=== PATIENT | male | born 1960 | race Caucasian/White ===

== ENCOUNTER 2017-05-26 11:19 | Emergency (ER) | payer BC, OTHER ==
[~2017-05-26] VITALS: Ht 175.3 cm; Wt 92.5 kg
[~2017-05-26 11:19] MED LIST: DOCU1CAP60 PO; MYL80 PO; glucometer
[2017-05-26 11:23] VITALS: TEMP 36.3; Ht 175.3 cm; Wt 92.5 kg
[2017-05-26 11:55] LABS: BASO % 0.1 %; BASO ABS # 0.01 K/uL (0-0.2); COMPLETE YES; EOS % 2.6 %; HEMATOCRIT 45.8 % (42-52); IG% 0.3 %; LYMPH % 30.3 %; MEAN CELL VOLUME 91.2 fL (80-100); MEAN CORPUSCULAR HEMOGLOBIN 31.7 pg (25-34); MEAN CORPUSCULAR HGB CONC 34.7 g/dl (32-36); MEAN PLATELET VOLUME 10.9 fL (7.4-10.4); MONO % 6.3 %; NEUT % 60.4 %; PLATELET COUNT 141 K/uL (130-400); RED BLOOD COUNT 5.02 M/uL (4.7-6.1); WHITE BLOOD COUNT 7.25 K/uL (4.8-10.8)
[2017-05-26 12:18] LABS: URINE APPEARANCE CLEAR (CLEAR); URINE BILIRUBIN NEG (NEG); URINE COLOR YELLOW; URINE NITRITE NEG (NEG); URINE SPECIFIC GRAVITY 1.029 (1.000-1.030); UROBILINOGEN NEG (NEG); ZZUR CULT IF INDIC CLEAN CATCH NO
[2017-05-26 12:20] LABS: BUN/CREATININE RATIO 14.1 (10-20); CALCIUM 9.6 mg/dl (8.5-10.1); CREATININE 1.4 mg/dl (0.60-1.40); POTASSIUM 4.4 mmol/L (3.5-5.1)
[2017-05-26 12:20] LABS: MANUAL MICROSCOPIC REQUIRED? NO; REVIEW REQ? NO
[2017-05-26 12:32] LABS: BETA-HYDROXYBUTYRATE 1.43 mg/dL (0.2-2.81)
--- NOTE | 2017-05-26 12:45 | EMERGENCY ROOM VISIT NOTE ---
History First contact with patient: 11:27 Chief Complaint: HYPERGLYCEMIA Stated Complaint: SUGAR HIGH 500 Nursing Triage Summary: Triage note: Pt reports he took his bsg at approx 1100 and was found to be 576. pt reports hx of diabets type two. History of Present Illness The patient is a 57 year old male who presents to the Emergency Room with complaints of elevated blood sugar. 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 He states at that time the sugar was 576. He did just eat a [place] right before checking the sugar. The patient states at that time, he called his PCP, who advised him to go to the emergency department for further evaluation. The patient does have a history of type 2 diabetes, and was diagnosed proximally 5 years ago. He states his last PCP appointment regarding his diabetes was proximally one and half months ago. He believes at that time, his hemoglobin A1c was 8 point something, but is uncertain of the exact number. At home, the patient states his blood sugar normally runs around the 200s. He denies any abdominal pain, nausea, vomiting, headache, blurry vision, other visual disturbances, confusion, polyuria, polydipsia, polyphagia, or any other symptoms. The patient is currently on glyburide, metformin, and Trulicity for his diabetes. He states he has been taking these medications, however he is still on the low-dose of Trulicity. Review of Systems A complete 10 point review of systems was reviewed with the patient with pertinent positives and negatives as per history of present illness. All else were negative. Past Medical/Surgical History Medical Problems: (1) High blood pressure (2) High cholesterol (3) Irritable bowel syndrome Social History Smoking Status: Former Smoker Alcohol Use: other Drug Use: none Marital Status: Housing Status: lives with family Occupation Status: employed Current/Historical Medications Scheduled Aspirin (Aspirin Ec), 81 MG PO DAILY Atorvastatin Calcium (Lipitor), Unknown Dose PO DAILY Glimepiride (Amaryl), Unknown Dose PO BID Lisinopril (Zestril), Unknown Dose PO DAILY Metformin HCl (Metformin HCl ER), 1,000 MG PO BID Multivitamin (Multivitamin), 1 TAB PO DAILY Oxcarbazepine (Trileptal), 1.75 ML INJ WK Allergies Erythromycin Physical Exam Vital Signs Date Time Temp Pulse Resp B/P (MAP) Pulse Ox O2 Delivery O2 Flow Rate FiO2 05/26/17 15:17 103 16 176/94 95 05/26/17 14:35 175/94 05/26/17 13:12 93 20 155/94 97 Room Air 05/26/17 12:34 143/100 05/26/17 11:46 18 182/105 95 05/26/17 11:23 36.3 109 18 204/102 96 Room Air Physical Exam VITALS: Vitals are noted on the nurse's note and reviewed by myself. Vital signs stable. GENERAL: This is a 57 year old obese male, in no acute distress, nondiaphoretic , well-developed well-nourished. SKIN: The skin was without rashes, erythema, edema, or bruising. There is no tenting of the skin. Capillary reflex less than 2 seconds. HEAD: Normocephalic atraumatic. EARS: External auditory canals clear, tympanic membranes pearly mckeon without erythema or effusion bilaterally. EYES: Pupils equal round and reactive to light and accommodation. Conjunctivae without injection, sclerae without icterus. Extraocular movements intact. NOSE: Patent, turbinates without inflammation or discharge. No sinus tenderness. MOUTH: Mucous membranes moist. Tonsils are not enlarged. Pharynx without erythema or exudate. Uvula midline. Airway patent. Tongue does not deviate. NECK: Supple without nuchal rigidity. No lymphadenopathy. No thyromegaly. Cervical spine is nontender. No JVD. HEART: Regular rate and rhythm without murmurs gallops or rubs. LUNGS: Clear to auscultation bilaterally without wheezes, rales or rhonchi. No dullness to percussion. No retractions or accessory muscle use. ABDOMEN: Positive bowel sounds x 4. Normal tympanic percussion. Soft, nontender, without masses or organomegaly. Butler sign negative. No guarding or rebound tenderness. MUSCULOSKELETAL: No muscle atrophy, erythema, or edema noted. Full range of motion without joint tenderness in all extremities. No tenderness to palpation. Normal gait. Strength 5/5 throughout. NEURO: Patient was alert and oriented to person place and time. Normal sensation to light and sharp touch. Deep tendon reflexes 2+ throughout. No focal neurological deficits. Medical Decision & Procedures ER Provider Diagnostic Interpretation: LABS: Initial BSG was 375, approximately 30 minutes after the patient checked on his own meter. CBC was without leukocytosis, anemia, thrombocytopenia. CMP was without electrolyte, renal abnormality. ALT slightly elevated at 81. Alkaline phosphatase elevated at 150. Lipase was negative. Beta hydroxybutyric acid 1.43. BSG prior to insulin administration 106. Increase to 166 after a sandwich and juice. Urinalysis did show 3+ glucose, but was negative for ketones or any signs of infection. Laboratory Results 05/26/17 11:35 Red Blood Count 5.02, Mean Corpuscular Volume 91.2, Mean Corpuscular Hemoglobin 31.7, Mean Corpuscular Hemoglobin Concent 34.7, Mean Platelet Volume 10.9, Neutrophils (%) (Auto) 60.4, Lymphocytes (%) (Auto) 30.3, Monocytes (%) (Auto) 6.3, Eosinophils (%) (Auto) 2.6, Basophils (%) (Auto) 0.1, Neutrophils # (Auto) 4.37, Lymphocytes # (Auto) 2.20, Monocytes # (Auto) 0.46, Eosinophils # (Auto) 0.19, Basophils # (Auto) 0.01 05/26/17 11:35 Test 05/26/17 11:35 05/26/17 12:00 05/26/17 14:32 White Blood Count 7.25 K/uL (4.8-10.8) Red Blood Count 5.02 M/uL (4.7-6.1) Hemoglobin 15.9 g/dL (14.0-18.0) Hematocrit 45.8 % (42-52) Mean Corpuscular Volume 91.2 fL (80-100) Mean Corpuscular Hemoglobin 31.7 pg (25-34) Mean Corpuscular Hemoglobin Concent 34.7 g/dl (32-36) Platelet Count 141 K/uL (130-400) Mean Platelet Volume 10.9 fL (7.4-10.4) Neutrophils (%) (Auto) 60.4 % Lymphocytes (%) (Auto) 30.3 % Monocytes (%) (Auto) 6.3 % Eosinophils (%) (Auto) 2.6 % Basophils (%) (Auto) 0.1 % Neutrophils # (Auto) 4.37 K/uL (1.4-6.5) Lymphocytes # (Auto) 2.20 K/uL (1.2-3.4) Monocytes # (Auto) 0.46 K/uL (0.11-0.59) Eosinophils # (Auto) 0.19 K/uL (0-0.5) Basophils # (Auto) 0.01 K/uL (0-0.2) RDW Standard Deviation 46.1 fL (36.4-46.3) RDW Coefficient of Variation 14.0 % (11.5-14.5) Immature Granulocyte % (Auto) 0.3 % Immature Granulocyte # (Auto) 0.02 K/uL (0.00-0.02) Anion Gap 11.0 mmol/L (3-11) Est Creatinine Clear Calc Drug Dose 67.0 ml/min Estimated GFR () 65.1 Estimated GFR (Non- 56.2 BUN/Creatinine Ratio 14.1 (10-20) Calcium Level 9.6 mg/dl (8.5-10.1) Total Bilirubin 0.3 mg/dl (0.2-1) Aspartate Amino Transf (AST/SGOT) 35 U/L (15-37) Alanine Aminotransferase (ALT/SGPT) 81 U/L (12-78) Alkaline Phosphatase 150 U/L (45-117) Total Protein 8.0 gm/dl (6.4-8.2) Albumin 4.0 gm/dl (3.4-5.0) Globulin 4.0 gm/dl (2.5-4.0) Albumin/Globulin Ratio 1.0 (0.9-2) Lipase 277 U/L (73-393) Beta-Hydroxybutyric Acid 1.43 mg/dL (0.2-2.81) Urine Color YELLOW Urine Appearance CLEAR (CLEAR) Urine pH 5.0 (4.5-7.5) Urine Specific [place] 1.029 (1.000-1.030) Urine Protein NEG (NEG) Urine Glucose (UA) 3+ (NEG) Urine Ketones NEG (NEG) Urine Occult Blood NEG (NEG) Urine Nitrite NEG (NEG) Urine Bilirubin NEG (NEG) Urine Urobilinogen NEG (NEG) Urine Leukocyte Esterase NEG (NEG) Bedside Glucose 166 mg/dl (70-99) Medications Administered Medications (Trade) Dose Ordered Sig/Donny Route Start Time Stop Time Status Last Admin Dose Admin Insulin Human Regular (novoLIN-R U-100 PER UNIT) 10 units NOW STAT IV 05/26/17 12:58 05/26/17 13:01 DC 05/26/17 13:11 10 UNITS Medical Decision The patient presented today complaining of hyperglycemia. He was completely asymptomatic on multiple re-evaluations. Due to the elevated blood sugar, the patient was advised to push fluids by mouth. Per Dr. Riddle's recommendation, the patient was given 10 units of insulin and lunch, which did decrease his blood sugar down to the 100s. The patient was beginning to feel as if his blood sugar was decreasing after the insulin and prior to being given food. He states he was feeling good at discharge. I did discuss with the patient proper management for his diabetes, and had a long discussion with him regarding proper diet. Encouraged patient to follow up outpatient with his PCP , as he may need to have some medication adjustments made. The patient was in agreement with the assessment and plan and did verbalize understanding. Discharge instructions were reviewed and the patient was discharged home in good condition. Differential diagnosis includes: Hyperglycemia, DKA, pancreatitis, gastroenteritis, malignancy, and others. Medication Reconcilliation Current Medication List: was personally reviewed by me Blood Pressure Screening Patient's blood pressure: Normal blood pressure Impression Primary Impression: Hyperglycemia Additional Impression: Diabetes mellitus type 2 in obese Departure Information Dispostion Home / Self-Care Condition GOOD Referrals Shade Peacock M.D. (PCP) Patient Instructions ED Diabetes General Info, ED Hyperglycemia Diabetic, My [facility] Additional Instructions You were seen in the Emergency Department for asymptomatic hyperglycemia. I do suspect this is related to your Type 2 Diabetes Mellitus. Please stay well-hydrated and ensure you are taking all diabetes medications properly. Follow-up with your PCP on Sunday regarding chronic diabetes medications. They may need to be increased or changed. As discussed, please monitor your carbs and sugar intake which could be contributing to elevated blood sugar. Return to the ED for any significant abdominal pain, dizziness, visual disturbances, urinary frequency, increased thirst or appetite, significantly elevated blood sugar which does not improve, or other concerning symptoms. Problem Qualifiers
[2017-05-26] MEDS ORDERED: NovoLIN-R INSULIN PER UNIT CHARGE IV STA (12:58)
[2017-05-26] MEDS ORDERED: GLIM1TAB PO (13:04)
[2017-05-26] MEDS ORDERED: ASPI81TA28 PO (13:04)
[2017-05-26] MEDS ORDERED: LISI-729 PO (13:04)
[2017-05-26] MEDS ORDERED: MULT-506 PO (13:04)
[2017-05-26] MEDS ORDERED: OXCA300S INJ (13:04)
[2017-05-26] MEDS ORDERED: ATOR80TA PO (13:04)
[2017-05-26] MEDS ORDERED: METF-841 PO (13:04)
[2017-05-26 15:17] VITALS: BP 176/94; PULSE 103; O2SAT 95
== END 2017-05-26 15:18 | disposition home or self-care (01) ==
LOC: C.EDB 11:21 → C.EDA 15:18
DX: E11.65 Type 2 diabetes mellitus with hyperglycemia (principal); E66.9 Obesity, unspecified; I10 Essential (primary) hypertension; E78.00 Pure hypercholesterolemia, unspecified; K58.9 Irritable bowel syndrome, unspecified; Z87.891 Personal history of nicotine dependence; Z79.82 Long term (current) use of aspirin; Z79.899 Other long term (current) drug therapy

== ENCOUNTER 2017-07-19 10:32 | Emergency (ER) | payer OTHER, BC ==
[~2017-07-19] VITALS: Ht 175.3 cm; Wt 98.0 kg
[~2017-07-19 10:32] MED LIST changes: +ASPI81TA28 PO; +ATOR80TA PO; -DOCU1CAP60 PO; +GLIM1TAB PO; +LISI-729 PO; +METF-841 PO; +MULT-506 PO; -MYL80 PO; +OXCA300S INJ; -glucometer
[2017-07-19 10:47] VITALS: TEMP 36.6; Ht 175.3 cm; Wt 98.0 kg
[2017-07-19 11:05] VITALS: O2SAT 96
[2017-07-19] MEDS ORDERED: GLIM4TAB2 PO (11:07)
[2017-07-19] MEDS ORDERED: LISI-789 PO (11:07)
[2017-07-19] MEDS ORDERED: ATOR10TA82 PO (11:07)
[2017-07-19] MEDS ORDERED: DULA1INJ SQ (11:07)
--- NOTE | 2017-07-19 11:12 | EMERGENCY ROOM VISIT NOTE ---
History Report prepared by Jah: Dario Bella Under the Supervision of: Dr. Rajinder Shearer D.O. First contact with patient: 10:42 Chief Complaint: CHEST PAIN Stated Complaint: CHEST PAIN History of Present Illness The patient is a 57 year old male who presents to the Emergency Room with complaints of constant chest pain starting this morning. 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 He notes that this morning he was getting chest pain which is worse with palpation. He additionally notes that he has some brush burn on his left elbow. He denies any pain with breathing, nausea, vomiting, abdominal pain, and back pain. The patient states that he has never had a stress test in the past. He has a history of type 2 diabetes. Source of History: patient Onset: this morning Position: chest Timing: constant Modifying Factors (Worsening): other (palpation) Associated Symptoms: No nausea, No vomiting, No abdominal pain, No back pain Review of Systems See HPI for pertinent positives & negatives. A total of 10 systems reviewed and were otherwise negative. Past Medical & Surgical Medical Problems: (1) High blood pressure (2) High cholesterol (3) Irritable bowel syndrome Social History Smoking Status: Former Smoker Alcohol Use: other Drug Use: none Marital Status: Housing Status: lives with family Occupation Status: employed Current/Historical Medications Scheduled Aspirin (Aspirin Ec), 81 MG PO DAILY Atorvastatin (Lipitor), 10 MG PO DAILY Dulaglutide (Trulicity), 0.75 MG SQ WK Glimepiride (Glimepiride), 4 MG PO BID Lisinopril (Zestril), 2.5 MG PO DAILY Metformin HCl (Metformin HCl ER), 1,000 MG PO BID Multivitamin (Multivitamin), 1 TAB PO DAILY Allergies Coded Allergies: Erythromycin (Verified Allergy, Mild, ABD PAIN, 07/19/17) Physical Exam Vital Signs Date Time Temp Pulse Resp B/P (MAP) Pulse Ox O2 Delivery O2 Flow Rate FiO2 07/19/17 13:00 98 20 163/82 98 07/19/17 11:58 134/80 07/19/17 11:47 186 29 07/19/17 11:32 105 21 07/19/17 11:17 109 27 07/19/17 11:05 96 Nasal Cannula 07/19/17 11:02 108 07/19/17 10:47 36.6 106 18 155/107 97 Room Air Physical Exam GENERAL: Patient is awake, alert, and in no acute distress. Patient is resting comfortably and showing no signs of anxiety EYES: The conjunctivae are clear. The pupils are round and reactive. EARS, NOSE, MOUTH AND THROAT: The nose is without any evidence of any deformity. Mucous membranes are moist tongue is midline NECK: The neck is nontender and supple. RESPIRATORY: Normal respiratory effort is noted there is no evidence of wheezing rhonchi or rales CARDIOVASCULAR: Tachycardic rate but regular. No definite murmur noted to auscultation. GASTROINTESTINAL: The abdomen is soft. Bowel sounds are present in all quadrants. Abdomen is nontender MUSCULOSKELETAL/EXTREMITIES: Reproducible pain over the left breast. There is no evidence of gross deformity full range of motion is noted in the hips and shoulders SKIN: There is no obvious evidence of any rash. There are no petechiae, pallor or cyanosis noted. NEUROLOGIC: Patient is awake alert and oriented x3 strength is symmetric patellar reflexes are 2+ bilaterally Medical Decision & Procedures ER Provider Diagnostic Interpretation: Radiology results as stated below per my review and radiologist interpretation: SINGLE VIEW CHEST CLINICAL HISTORY: Dyspnea. FINDINGS: An AP, portable, upright chest radiograph is compared to study dated 08/13/2013. The cardiomediastinal heart is enlarged. The pulmonary vasculature is noncongested. Airspace opacities are present the left lung base in the retrocardiac region. The lungs and pleural spaces are otherwise clear. No pneumothorax is seen. The bony thorax is grossly intact. IMPRESSION: 1. Cardiomegaly without radiographic evidence of congestive failure. 2. Airspace opacities are seen in the left lung base in the retrocardiac region. This likely represents atelectasis. Correlate clinically for evidence of an infectious/inflammatory pneumonitis. Electronically signed by: Reed Hare M.D. 07/19/2017 11:16 AM Dictated Date/Time: 07/19/2017 11:15 AM Laboratory Results 07/19/17 11:06 Red Blood Count 5.05, Mean Corpuscular Volume 90.7, Mean Corpuscular Hemoglobin 31.9, Mean Corpuscular Hemoglobin Concent 35.2, Mean Platelet Volume 11.2, Neutrophils (%) (Auto) 71.4, Lymphocytes (%) (Auto) 20.2, Monocytes (%) (Auto) 7.4, Eosinophils (%) (Auto) 0.7, Basophils (%) (Auto) 0.1, Neutrophils # (Auto) 5.91, Lymphocytes # (Auto) 1.67, Monocytes # (Auto) 0.61, Eosinophils # (Auto) 0.06, Basophils # (Auto) 0.01 07/19/17 11:06 07/19/17 11:55 Test 07/19/17 11:06 07/19/17 11:55 White Blood Count 8.28 K/uL (4.8-10.8) Red Blood Count 5.05 M/uL (4.7-6.1) Hemoglobin 16.1 g/dL (14.0-18.0) Hematocrit 45.8 % (42-52) Mean Corpuscular Volume 90.7 fL (80-100) Mean Corpuscular Hemoglobin 31.9 pg (25-34) Mean Corpuscular Hemoglobin Concent 35.2 g/dl (32-36) Platelet Count 161 K/uL (130-400) Mean Platelet Volume 11.2 fL (7.4-10.4) Neutrophils (%) (Auto) 71.4 % Lymphocytes (%) (Auto) 20.2 % Monocytes (%) (Auto) 7.4 % Eosinophils (%) (Auto) 0.7 % Basophils (%) (Auto) 0.1 % Neutrophils # (Auto) 5.91 K/uL (1.4-6.5) Lymphocytes # (Auto) 1.67 K/uL (1.2-3.4) Monocytes # (Auto) 0.61 K/uL (0.11-0.59) Eosinophils # (Auto) 0.06 K/uL (0-0.5) Basophils # (Auto) 0.01 K/uL (0-0.2) RDW Standard Deviation 45.7 fL (36.4-46.3) RDW Coefficient of Variation 14.0 % (11.5-14.5) Immature Granulocyte % (Auto) 0.2 % Immature Granulocyte # (Auto) 0.02 K/uL (0.00-0.02) Prothrombin Time 10.5 SECONDS (9.0-12.0) Prothromb Time International Ratio 1.0 (0.9-1.1) Activated Partial Thromboplast Time 25.9 SECONDS (21.0-31.0) Partial Thromboplastin Ratio 1.0 D-Dimer 270 ug/L FEU (0-500) Anion Gap 4.0 mmol/L (3-11) Est Creatinine Clear Calc Drug Dose 77.1 ml/min Estimated GFR () 74.7 Estimated GFR (Non- 64.4 BUN/Creatinine Ratio 11.9 (10-20) Calcium Level 9.0 mg/dl (8.5-10.1) Total Bilirubin 0.4 mg/dl (0.2-1) Alanine Aminotransferase (ALT/SGPT) 70 U/L (12-78) Alkaline Phosphatase 104 U/L (45-117) Creatine Kinase MB 0.7 ng/ml (0.5-3.6) Creatine Kinase MB Ratio (0-3.0) Troponin I < 0.015 ng/ml (0-0.045) Total Protein 7.7 gm/dl (6.4-8.2) Albumin 3.9 gm/dl (3.4-5.0) Globulin 3.8 gm/dl (2.5-4.0) Albumin/Globulin Ratio 1.0 (0.9-2) Aspartate Amino Transf (AST/SGOT) 34 U/L (15-37) Total Creatine Kinase 62 U/L (39-308) Laboratory results per my review. ECG Indication: chest pain Rate (beats per minute): 103 Rhythm: sinus tachycardia Findings: no ectopy, other (No acute ST segment abnormality) Comparison ECG Date: 08/06/13 Change: no significant change ED Course 1042: The patient was evaluated in room B11. A complete history and physical examination were performed. 1243: Upon reevaluation, the patient is doing well. I discussed the results and treatment plan with him. He verbalized agreement of the treatment plan. He was discharged home. Medical Decision Differential diagnosis: Etiologies such as cardiac ischemia, aortic dissection, pulmonary embolism, pneumonia, pneumothorax, musculoskeletal, infections, pericarditis, myocarditis , esophageal rupture, gastrointestinal, as well as others were entertained. Nursing notes reviewed. The patient is a 57-year-old male who presented to the emergency department for an evaluation of left-sided chest pain. 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 He does not necessarily remember getting struck in the chest but started having left-sided chest pain this morning. The pain appear to be reproducible over the left pectoralis muscle. The patient was seen at an outpatient urgent care center and was sent to the emergency department. I discussed patient's laboratory and radiographic studies with him. His EKG did not show any acute change from previous. His initial cardiac biomarkers were negative despite having ongoing pain throughout the entire morning. The patient was encouraged to rest and avoid any strenuous activity. He was also encouraged to call his primary care physician to schedule follow point. Otherwise he was encouraged to return to the emergency apartment immediately if symptoms change worsen or the need arises. Medication Reconcilliation Current Medication List: was personally reviewed by me Blood Pressure Screening Patient's blood pressure: Elevated blood pressure Blood pressure disposition: Elevated BP felt to be situational Impression Primary Impression: Musculoskeletal chest pain Additional Impression: Contusion of chest Scribe Attestation The scribe's documentation has been prepared under my direction and personally reviewed by me in its entirety. I confirm that the note above accurately reflects all work, treatment, procedures, and medical decision making performed by me. Departure Information Dispostion Home / Self-Care Referrals Shade Peacock M.D. (PCP) Forms Call Back Authorization, HOME CARE DOCUMENTATION FORM, IMPORTANT VISIT INFORMATION, Work Instructions Patient Instructions ED Contusion Chest Wall, My [facility] Additional Instructions Rest and avoid any strenuous activity. Continue all medications as prescribed. Continue using Motrin and Tylenol as directed for pain. Follow-up with your family for reevaluation. Return to the emergency department immediately if symptoms change worsen or the need arises. Problem Qualifiers Additional Impression: Contusion of chest Encounter type: initial encounter Laterality: left Qualified Codes: S20.212A - Contusion of left front wall of thorax, initial encounter
--- NOTE | 2017-07-19 11:17 | DIAGNOSTIC IMAGING REPORT ---
SINGLE VIEW CHEST CLINICAL HISTORY: Dyspnea. FINDINGS: An AP, portable, upright chest radiograph is compared to study dated 08/13/2013. The cardiomediastinal heart is enlarged. The pulmonary vasculature is noncongested. Airspace opacities are present the left lung base in the retrocardiac region. The lungs and pleural spaces are otherwise clear. No pneumothorax is seen. The bony thorax is grossly intact. IMPRESSION: 1. Cardiomegaly without radiographic evidence of congestive failure. 2. Airspace opacities are seen in the left lung base in the retrocardiac region. This likely represents atelectasis. Correlate clinically for evidence of an infectious/inflammatory pneumonitis. Electronically signed by: Reed Hare M.D. 07/19/2017 11:16 AM Dictated Date/Time: 07/19/2017 11:15 AM
[2017-07-19 11:22] LABS: BASO % 0.1 %; BASO ABS # 0.01 K/uL (0-0.2); EOS % 0.7 %; EOS ABS # 0.06 K/uL (0-0.5); HEMATOCRIT 45.8 % (42-52); HEMOGLOBIN 16.1 g/dL (14.0-18.0); IG# 0.02 K/uL (0.00-0.02); LYMPH % 20.2 %; LYMPH ABS # 1.67 K/uL (1.2-3.4); MEAN CELL VOLUME 90.7 fL (80-100); MEAN CORPUSCULAR HEMOGLOBIN 31.9 pg (25-34); MEAN CORPUSCULAR HGB CONC 35.2 g/dl (32-36); MEAN PLATELET VOLUME 11.2 fL (7.4-10.4); MONO % 7.4 %; MONO ABS # 0.61 K/uL (0.11-0.59); NEUT % 71.4 %; NEUT ABS # 5.91 K/uL (1.4-6.5); PLATELET COUNT 161 K/uL (130-400); RED CELL DISTRIBUTION WIDTH SD 45.7 fL (36.4-46.3); WHITE BLOOD COUNT 8.28 K/uL (4.8-10.8)
[2017-07-19 11:44] LABS: ALBUMIN 3.9 gm/dl (3.4-5.0); ALT/SGPT 70 U/L (12-78); BLOOD UREA NITROGEN 15 mg/dl (7-18); CARBON DIOXIDE 24 mmol/L (21-32); CREATININE 1.25 mg/dl (0.60-1.40); GLUCOSE 245 mg/dl (70-99); SODIUM 138 mmol/L (136-145)
[2017-07-19 11:47] LABS: ALKALINE PHOSPHATASE 104 U/L (45-117); CKMB 0.7 ng/ml (0.5-3.6); TOTAL PROTEIN 7.7 gm/dl (6.4-8.2)
[2017-07-19 12:02] LABS: PTT PATIENT 25.9 SECONDS (21.0-31.0)
[2017-07-19 12:19] LABS: POTASSIUM 4.3 mmol/L (3.5-5.1)
[2017-07-19 13:00] VITALS: BP 163/82; PULSE 98; O2SAT 98
== END 2017-07-19 13:01 | disposition home or self-care (01) ==
LOC: C.EDB 10:35
DX: R07.89 Other chest pain (principal); S20.20XA Contusion of thorax, unspecified, initial encounter; X58.XXXA Exposure to other specified factors, initial encounter; E11.9 Type 2 diabetes mellitus without complications; I10 Essential (primary) hypertension; E78.00 Pure hypercholesterolemia, unspecified; K58.9 Irritable bowel syndrome, unspecified; Z79.82 Long term (current) use of aspirin; Z79.84 Long term (current) use of oral hypoglycemic drugs; Z87.891 Personal history of nicotine dependence

== ENCOUNTER 2019-06-18 12:36 | Inpatient (IN) ==
[2019-06-18] MEDS ORDERED: GLUCOSE 40% GEL 15 GM TUBE PO PRN ×2 (12:43→12:59)
[2019-06-18] MEDS ORDERED: SODIUM CHLORIDE 0.9% 1000ML 1,000 ML IV ONE ×2 (12:43→13:14)
[2019-06-18] MEDS ORDERED: SODIUM CHLORIDE 0.9% 500 ML IV STA (12:43)
[2019-06-18] MEDS ORDERED: DEXTROSE 50% 50 ML SYRINGE IV PRN (12:59)
[2019-06-18] MEDS ORDERED: GLUCAGON FOR INJ 1 MG VIAL SQ PRN (12:59)
[2019-06-18] MEDS ORDERED: ED DKA INSULIN DRIP ONE (12:59)
[2019-06-18] MEDS ORDERED: CARBOHYDRATES FOR HYPOGLYCEMIA PO PRN (12:59)
[2019-06-18] MEDS ORDERED: GLUCOSE 10 TABS/TUBE PO PRN (12:59)
[2019-06-18] MEDS ORDERED: DKA GOAL RANGE 150-250 mg/dl ONE ×2 (12:59→17:03)
--- NOTE | 2019-06-18 12:59 | Emergency Department Note ---
Entered by Kayode Morgan acting as a scribe for Malia Grigsby DO History of Present Illness General Chief complaint: Cardiac Assessment Time Seen by Provider: 06/18/19 12:43 Source: patient and EMS History of Present Illness Onset (ago): day(s) 2 Location: left and right Pain Consistency: + other (episode) Quality: + other (weakness and elevated blood sugar levels) Associated symptoms: + shortness of breath (slight) and + other (+intermittent abdominal pain; +urinating more than usual; -change in bowel movement); no chest pain The patient is a 59 year old male, with past medical history of diabetes, hyperlipidemia, and hypertension, who presents to the Emergency Room with complaints of an episode of weakness over the last couple days and elevated sugar levels, per EMS. EMS reports that the patients blood sugar was so high that it maxed out the reading of his device. EMS reports the patient has not been taking his insulin over the past couple days due to cost/insurance, but EMS notes the patient has been taking his Metformin. The patient reports he has been weak for the past two days. The patient reports of slight shortness of breath, but he denies chest pain. EMS also notes the patient has slurred speech, but he states this seems to be baseline for the patient. The patient reports he has never been told he has an underlying heart disease other than a heart murmur. The patient reports his sugar levels are typically under control other than from missing his insulin shots over the past couple days. The patient states he does not know if he has ever had DKA. The patient also notes of intermittent abdomin al pain over the past couple months, but the patient does not seem to be too concerned about the abdominal pain. The patient denies change in his bowel movements. However he notes he has been urinating a lot more than normal. Home Medications Home Medications Medication Instructions Recorded Confirmed Type atorvastatin 20 mg PO QAM 03/11/19 06/18/19 History glimepiride 4 mg PO BID 03/11/19 06/18/19 History lisinopril 10 mg PO QAM 03/11/19 06/18/19 History metformin 1,000 mg PO BIDM 03/11/19 06/18/19 History omeprazole 20 mg PO QAM 03/11/19 06/18/19 History dulaglutide [Trulicity] 1.5 mg SUBCUT WK 06/18/19 06/18/19 History Allergies Allergy/AdvReac Type Severity Reaction Status Date / Time erythromycin base Allergy Mild Abdominal Verified 06/18/19 13:44 Pain Past Med/Surg History Medical History Carpal tunnel syndrome Diabetes (Acute) DKA (diabetic ketoacidoses) (Acute) Hyperkalemia (Acute) Hyperlipidemia Hypertension Irritable bowel syndrome (Chronic) Tobacco use Surgical History (Updated 06/18/19 @ 19:02 by Regla Torres PA-C) History of carpal tunnel surgery History of foot surgery Family History Other Diabetes Heart disease Social History Preferred Language: Moroccan Communication Ability: Effective Veterinary Assistant Technician Required: No Beliefs That Will Affect Care: None Current Living Situation: Spouse Other Information That Helps Us Care for You: No Feels Safe at Home: Yes Safety Concerns: Feels Safe At This Time Smoking Status: Current every day smoker Tobacco Type: cigarettes ; Cigarettes Per Day: Previously had quit for 8 years but resumed smoking 5 cig/day last month ; Do You Dip or Chew Tobacco: No ; Second Hand Exposure: Yes ; Tobacco Cessation Education Requested by Patient: No Hx Alcohol Use: No Hx Substance Use: No Review of Systems See HPI for pertinent positives & negatives. and A total of 10 systems reviewed and were otherwise negative Physical Exam Vital Signs Vital Signs - 24 hr 06/18/19 12:39 06/18/19 12:41 06/18/19 12:44 Temperature 36.5 C Temperature Source Axillary Pulse Rate 105 H 107 H 105 H Pulse Rate [Apical] Pulse Rate from SpO2 Sensor 107 H 106 H Pulse Rhythm Regular Pulse Strength Normal Respiratory Rate 18 19 12 Respiratory Effort / Characteristics Non-Labored Spontaneous Respiratory Depth Normal Respiratory Pattern Regular Blood Pressure 176/88 H 150/98 H Blood Pressure Mean 117 123 Blood Pressure Position Lying Pulse Oximetry 99 99 99 Oxygen Delivery Method Room Air Room Air Room Air Sepsis Recent Fever Within 48 Hours No Sepsis New/Unexplained Change in Mental Status No Sepsis Action Taken by Nursing No Action Required 06/18/19 12:45 06/18/19 13:00 06/18/19 13:15 Temperature Temperature Source Pulse Rate 108 H 113 H 100 H Pulse Rate [Apical] Pulse Rate from SpO2 Sensor 109 H 109 H 100 H Pulse Rhythm Pulse Strength Respiratory Rate 12 18 23 Respiratory Effort / Characteristics Respiratory Depth Respiratory Pattern Blood Pressure 176/88 H 153/115 H Blood Pressure Mean 118 139 Blood Pressure Position Pulse Oximetry 99 97 99 Oxygen Delivery Method Room Air Room Air Room Air Sepsis Recent Fever Within 48 Hours Sepsis New/Unexplained Change in Mental Status Sepsis Action Taken by Nursing 06/18/19 13:30 06/18/19 13:45 06/18/19 13:46 Temperature Temperature Source Pulse Rate 95 H 97 H 100 H Pulse Rate [Apical] Pulse Rate from SpO2 Sensor 95 H 98 H 100 H Pulse Rhythm Pulse Strength Respiratory Rate 16 16 15 Respiratory Effort / Characteristics Respiratory Depth Respiratory Pattern Blood Pressure 185/88 H Blood Pressure Mean 147 Blood Pressure Position Pulse Oximetry 99 100 100 Oxygen Delivery Method Room Air Room Air Room Air Sepsis Recent Fever Within 48 Hours Sepsis New/Unexplained Change in Mental Status Sepsis Action Taken by Nursing 06/18/19 14:08 06/18/19 14:09 06/18/19 14:13 Temperature Temperature Source Pulse Rate 106 H Pulse Rate [Apical] 103 H Pulse Rate from SpO2 Sensor 106 H Pulse Rhythm Pulse Strength Respiratory Rate 12 17 10 L Respiratory Effort / Characteristics Spontaneous Respiratory Depth Respiratory Pattern Blood Pressure 190/89 H Blood Pressure Mean 138 Blood Pressure Position Pulse Oximetry 99 97 Oxygen Delivery Method Room Air Room Air Sepsis Recent Fever Within 48 Hours Sepsis New/Unexplained Change in Mental Status Sepsis Action Taken by Nursing 06/18/19 14:15 06/18/19 14:35 Temperature Temperature Source Pulse Rate 106 H 113 H Pulse Rate [Apical] Pulse Rate from SpO2 Sensor 106 H 112 H Pulse Rhythm Pulse Strength Respiratory Rate 13 21 Respiratory Effort / Characteristics Respiratory Depth Respiratory Pattern Blood Pressure 185/92 H Blood Pressure Mean 110 Blood Pressure Position Pulse Oximetry 100 100 Oxygen Delivery Method Room Air Room Air Sepsis Recent Fever Within 48 Hours Sepsis New/Unexplained Change in Mental Status Sepsis Action Taken by Nursing GENERAL: alert, well appearing, well nourished, no distress, ketotic smell EYE EXAM: normal conjunctiva, PERRL and EOM's grossly intact OROPHARYNX: no exudate, no erythema, lips, buccal mucosa, and tongue normal and mucous membranes are dry NECK: supple, no nuchal rigidity, no adenopathy, non-tender LUNGS: Clear to auscultation. Normal chest wall mechanics, no w/r/r HEART: no murmurs, S1 normal and S2 normal ABDOMEN: abdomen soft, non-tender, normo-active bowel sounds, no masses, no rebound or guarding. BACK: Back is symmetrical on inspection and there is no deformity, no midline tenderness, no CVA tenderness. SKIN: no rashes and no bruising UPPER EXTREMITIES: upper extremities are grossly normal. FROM, nml pulses b/l. LOWER EXTREMITIES: No pitting edema. FROM, nml pulses b/l. NEURO EXAM: Normal sensorium, cranial nerves II-XII intact, normal speech, no weakness of arms, no weakness of legs. Course Course 1239: Past medical records reviewed. The patient was evaluated in room B1. A complete history and physical exam was performed. 1317: I updated the patient on his test results. 1435: I updated the patient on his test results. 1510: I reviewed the patient's case with Regla Lerner. Dr. Van Mayank Lerner will evaluate the patient for further management. Reevaluation(s) Reevaluation #1: I reviewed the patient's case with Regla Lerner. Dr. VanMayank Lerner will evaluate the patient for further management. Administered Medications Atorvastatin Calcium (Lipitor) 20 mg PO QAM [facility] Stop: 07/20/19 12:05 Last Admin: 06/20/19 13:04 Dose: 20 mg Documented by: [id number] Benzonatate (Tessalon Perle) 100 mg PO TID PRN PRN Reason: Cough Stop: 07/19/19 20:49 Last Admin: 06/19/19 21:19 Dose: 100 mg Documented by: [id number] Enoxaparin Sodium (Lovenox) 40 mg SQ Q24H [facility] Stop: 07/18/19 19:59 Last Admin: 06/19/19 21:18 Dose: 40 mg Documented by: [id number] Admin: 06/18/19 19:55 Dose: 40 mg Documented by: [id number] Insulin Aspart (Novolog Flexpen) 0 units SC ACHS [facility] Stop: 07/20/19 11:29 Last Admin: 06/20/19 12:11 Dose: 6 units Documented by: [id number] Cosigned by: [id number] Insulin Human Isoph/Insulin Regular (Novolin 70/30 Regular) 24 units SC QDB [facility] Stop: 07/20/19 07:29 Last Admin: 06/20/19 08:28 Dose: 24 units Documented by: [id number] Cosigned by: [id number] Lisinopril (Zestril) 10 mg PO DAILY NELI Stop: 07/19/19 13:59 Last Admin: 06/20/19 10:35 Dose: 10 mg Documented by: [id number] Admin: 06/19/19 13:03 Dose: 10 mg Documented by: [id number] Pantoprazole Sodium (Protonix) 40 mg PO QAM [facility] Stop: 07/20/19 12:05 Last Admin: 06/20/19 13:04 Dose: 40 mg Documented by: [id number] Discontinued Medications Acetaminophen (Tylenol) 650 mg PO Q4H PRN PRN Reason: Pain Stop: 07/19/19 00:00 Last Admin: 06/19/19 00:09 Dose: 650 mg Documented by: [id number] Albuterol (Ventolin 0.5% 2.5mg/0.5ml) 2.5 mg NEB NOW STA Stop: 06/18/19 13:28 Last Admin: 06/18/19 14:09 Dose: Not Given Documented by: [id number] Albuterol (Ventolin 0.083% 2.5mg/3ml) 2.5 mg NEB NOW STA Stop: 06/18/19 14:08 Last Admin: 06/18/19 14:13 Dose: 2.5 mg Documented by: [id number] Sodium Chloride (Nss) 500 mls @ 999 mls/hr IV .Q31M STA Stop: 06/18/19 13:13 Last Infusion: 06/18/19 13:42 Dose: 0 mls/hr Documented by: [id number] Admin: 06/18/19 13:11 Dose: 999 mls/hr Documented by: [id number] Sodium Chloride (Nss 1000ml) 1,000 mls @ 200 mls/hr IV .Q5H ONE Stop: 06/18/19 18:13 Last Infusion: 06/18/19 18:49 Dose: 0 mls/hr Documented by: [id number] Admin: 06/18/19 14:10 Dose: 200 mls/hr Documented by: [id number] Sodium Chloride (Nss 1000ml) 1,000 mls @ 999 mls/hr IV .Q1H1M ONE Stop: 06/18/19 13:43 Last Infusion: 06/18/19 14:09 Dose: 0 mls/hr Documented by: [id number] Admin: 06/18/19 12:52 Dose: 999 mls/hr Documented by: [id number] Insulin Human Regular 250 (units/ Sodium Chloride) 250 mls @ 7.7 mls/hr IV .Q24H NELI; Protocol Stop: 07/18/19 12:59 Last Titration: 06/19/19 03:52 Dose: 0 units/hr, 0 mls/hr Documented by: [id number] Cosigned by: [id number] Titration: 06/19/19 03:22 Dose: 0 units/hr, 0 mls/hr Documented by: [id number] Cosigned by: [id number] Titration: 06/19/19 03:08 Dose: 5 units/hr, 5 mls/hr Documented by: [id number] Cosigned by: [id number] Titration: 06/19/19 01:50 Dose: 6.2 units/hr, 6.2 mls/hr Documented by: [id number] Cosigned by: [id number] Titration: 06/18/19 23:53 Dose: 7.7 units/hr, 7.7 mls/hr Documented by: [id number] Cosigned by: [id number] Titration: 06/18/19 21:50 Dose: 7.7 units/hr, 7.7 mls/hr Documented by: [id number] Cosigned by: [id number] Titration: 06/18/19 20:50 Dose: 7.7 units/hr, 7.7 mls/hr Documented by: [id number] Cosigned by: [id number] Titration: 06/18/19 19:50 Dose: 7.7 units/hr, 7.7 mls/hr Documented by: [id number] Cosigned by: [id number] Titration: 06/18/19 19:25 Dose: 7.7 units/hr, 7.7 mls/hr Documented by: [id number] Cosigned by: [id number] Titration: 06/18/19 18:50 Dose: 0 units/hr, 0 mls/hr Documented by: [id number] Cosigned by: [id number] Titration: 06/18/19 17:54 Dose: 12.8 units/hr, 12.8 mls/hr Documented by: [id number] Cosigned by: [id number] Titration: 06/18/19 16:50 Dose: 12.8 units/hr, 12.8 mls/hr Documented by: [id number] Cosigned by: [id number] Titration: 06/18/19 15:51 Dose: 10.7 units/hr, 10.7 mls/hr Documented by: [id number] Cosigned by: [id number] Titration: 06/18/19 14:51 Dose: 8.9 units/hr, 8.9 mls/hr Documented by: [id number] Cosigned by: [id number] Admin: 06/18/19 13:39 Dose: 7.4 units/hr, 7.4 mls/hr Documented by: [id number] Cosigned by: [id number] Calcium Chloride 1,000 mg/ (Sodium Chloride) 60 mls @ 240 mls/hr IV NOW STA Stop: 06/18/19 13:14 Last Infusion: 06/18/19 13:39 Dose: 0 mls/hr Documented by: [id number] Admin: 06/18/19 13:24 Dose: 240 mls/hr Documented by: [id number] Parenteral Electrolytes (Normosol-R) 1,000 mls @ 999 mls/hr IV .Q1H1M ONE Stop: 06/18/19 19:45 Last Infusion: 06/18/19 19:49 Dose: 0 mls/hr Documented by: [id number] Admin: 06/18/19 18:48 Dose: 999 mls/hr Documented by: [id number] Dextrose/Sodium Chloride (D5w And 1/2nss) 1,000 mls @ 200 mls/hr IV .Q5H NELI Stop: 07/18/19 19:29 Last Infusion: 06/19/19 01:38 Dose: 0 mls/hr Documented by: [id number] Infusion: 06/18/19 22:28 Dose: 0 mls/hr Documented by: [id number] Admin: 06/18/19 19:51 Dose: 200 mls/hr Documented by: [id number] Potassium Chloride/Dextrose/Sod Cl (D5w And 1/2nss + 20meq Kcl) 20 meq in 1,000 mls @ 200 mls/hr IV .Q5H NELI Stop: 07/18/19 22:14 Last Admin: 06/19/19 07:15 Dose: Not Given Documented by: [id number] Infusion: 06/19/19 03:35 Dose: 0 mls/hr Documented by: [id number] Admin: 06/18/19 22:28 Dose: 200 mls/hr Documented by: [id number] Parenteral Electrolytes (Normosol-R) 1,000 mls @ 80 mls/hr IV .[id number] [facility] Stop: 07/19/19 03:29 Last Infusion: 06/19/19 14:45 Dose: 0 mls/hr Documented by: [id number] Admin: 06/19/19 03:41 Dose: 80 mls/hr Documented by: [id number] Insulin Aspart (Novolog Flexpen) 0 units SC ACHS [facility] Stop: 07/18/19 16:29 Last Admin: 06/18/19 22:16 Dose: Not Given Documented by: [id number] Cosigned by: [id number] Admin: 06/18/19 17:54 Dose: Not Given Documented by: [id number] Cosigned by: [id number] Insulin Aspart (Novolog Flexpen) 0 units SC ACHS [facility] Stop: 07/19/19 07:29 Last Admin: 06/19/19 13:11 Dose: Not Given Documented by: [id number] Cosigned by: [id number] Admin: 06/19/19 06:49 Dose: 1 units Documented by: [id number] Cosigned by: [id number] Insulin Aspart (Novolog Flexpen) 8 units SC ONE ONE Stop: 06/19/19 11:01 Last Admin: 06/19/19 10:56 Dose: 8 units Documented by: [id number] Cosigned by: [id number] Insulin Aspart (Novolog Flexpen) 0 units SC Q4 [facility] Stop: 07/19/19 07:29 Last Admin: 06/19/19 13:06 Dose: 3 units Documented by: [id number] Cosigned by: [id number] Insulin Aspart (Novolog Flexpen) 0 units SC ACHS [facility] Stop: 07/19/19 16:29 Last Admin: 06/19/19 20:33 Dose: 4 units Documented by: [id number] Cosigned by: [id number] Admin: 06/19/19 18:03 Dose: 6 units Documented by: [id number] Cosigned by: [id number] Insulin Glargine (Lantus Solostar Pen) 20 units SC NOW STA Stop: 06/18/19 20:04 Last Admin: 06/18/19 21:18 Dose: 20 units Documented by: [id number] Cosigned by: [id number] Insulin Glargine (Lantus Solostar Pen) 40 units SC ONCE ONE Stop: 06/19/19 02:16 Last Admin: 06/19/19 02:37 Dose: 40 units Documented by: [id number] Cosigned by: [id number] Insulin Glargine (Lantus Solostar Pen) 20 units SC BID [facility]; Protocol Stop: 07/19/19 20:59 Last Admin: 06/19/19 20:35 Dose: 20 units Documented by: [id number] Cosigned by: [id number] Insulin Human Regular (Novolin R Bolus From Bag) 7.4 units IV ONE ONE Stop: 06/18/19 13:31 Last Admin: 06/18/19 13:40 Dose: 7.4 units Documented by: [id number] Cosigned by: [id number] Magnesium Hydroxide (Milk Of Magnesia) 30 ml PO NOW ONE Stop: 06/20/19 10:36 Last Admin: 06/20/19 10:55 Dose: 30 ml Documented by: [id number] Miscellaneous (Insulin Protocol Dka Goal Range) 1 ea N/A ONE ONE Stop: 06/18/19 13:00 Last Admin: 06/18/19 13:27 Dose: 1 ea Documented by: [id number] Miscellaneous (Insulin Protocol Dka Goal Range) 1 ea N/A ONE ONE Stop: 06/18/19 17:04 Last Admin: 06/18/19 18:50 Dose: 1 ea Documented by: [id number] Ondansetron HCl (Zofran) 4 mg IV NOW STA Stop: 06/18/19 14:40 Last Admin: 06/18/19 14:50 Dose: 4 mg Documented by: [id number] Potassium Chloride (Klor-Con M20) 40 meq PO NOW STA Stop: 06/20/19 07:23 Last Admin: 06/20/19 08:28 Dose: 40 meq Documented by: [id number] Critical Care Time Critical Care Time: Yes Total Critical Care Time: 50 I have personally spent 50 minutes of critical care time in the direct management of this patient. This includes bedside care, interpretation of diagnostic studies, and testing, discussion with consultants, patient, and family members, and other required patient management activities. This 50 minutes is in excess of all separately billable procedures. Medical Decision Making Differential Diagnosis Differential diagnosis: Etiologies such as metabolic, infection, hypo/hyperglycemia, electrolyte abnormalities, cardiac sources, intracerebral event, toxicologic, neurologic, as well as others were entertained. Medical Records Attestation: I reviewed the patient's medical records. Home Medications Current Medication List: was personally reviewed by me Laboratory Data Attestation: I reviewed the patient's lab results. Result diagrams: 06/20/19 05:32 06/20/19 05:32 Lab Results 06/18/19 06/18/19 06/18/19 Range/Units 12:50 12:50 12:50 WBC 19.21 H (4.8-10.8) K/uL RBC 5.90 (4.7-6.1) M/uL Hgb 18.7 H (14.0-18.0) g/dL POC Hgb (14.0-18.0) g/dl Hct 53.0 H (42-52) % POC Hct (42-52) % MCV 89.8 (80-100) fL MCH 31.7 (25-34) pg MCHC 35.3 (32-36) g/dL RDW Std Deviation 45.1 (36.4-46.3) fL RDW Coeff of Mariah 13.8 (11.5-14.5) % Plt Count 248 (130-400) K/uL MPV 12.3 H (7.4-10.4) fL Immature Gran % (Auto) 0.6 % Neut % (Auto) 89.3 % Lymph % (Auto) 5.7 % Marion % (Auto) 4.3 % Eos % (Auto) 0.0 % Baso % (Auto) 0.1 % Immature Gran # (Auto) 0.12 H (0.00-0.02) K/uL Neut # (Auto) 17.15 H (1.4-6.5) K/uL Lymph # (Auto) 1.09 L (1.2-3.4) K/uL Marion # (Auto) 0.83 H (0.11-0.59) K/uL Eos # (Auto) 0.00 (0-0.5) K/uL Baso # (Auto) 0.02 (0-0.2) K/uL ABG pH (7.35-7.45) ABG pCO2 (35-46) mmHg ABG pO2 (80-95) mm/Hg ABG HCO3 (19-24) mmol/L ABG O2 Saturation (90-95) % ABG Base Excess (-9-1.8) mEq/L Ronni Test (Pos) Barometric Pressure mm/Hg Oxygen Given POC Sodium (135-144) mEq/L Sodium 131 L (136-145) mmol/L POC Potassium (3.3-5.0) mEq/L Potassium 6.3 H* (3.5-5.1) mmol/L POC Chloride (101-112) mEq/L Chloride 95 L (98-107) mmol/L Carbon Dioxide 9 L* (21-32) mmol/L POC Total CO2 (24-31) mEq/l Anion Gap 27.0 H (3-11) POC Anion Gap (16-25) mmol/L POC BUN (7-18) mg/dl BUN 40 H (7-18) mg/dl Creatinine 1.91 H (0.6-1.4) mg/dl POC Creatinine (0.6-1.3) mg/dl Est Cr Clr Drug Dosing 41.3 ml/min Est GFR ( Amer) 44.1 Est GFR (Non-Af Amer) 38.0 BUN/Creatinine Ratio 20.8 H (10-20) Glucose 668 H* (70-99) mg/dl POC Glucose (70-99) POC Glucose (other) (70-99) mg/dl Estimat Average Glucose 338 mg/dl Hemoglobin A1c 13.4 H (4.5-5.6) % Calcium 10.9 H (8.5-10.1) mg/dl POC Ioniz Calcium Yaritza (1.12-1.32) mmol/l Phosphorus 8.4 H (2.5-4.9) mg/dl Magnesium 2.5 H (1.8-2.4) mg/dl Total Bilirubin 0.6 (0.2-1) mg/dl AST 9 L (15-37) U/L ALT 34 (12-78) U/L Alkaline Phosphatase 189 H (45-117) U/L Total Protein 9.3 H (6.4-8.2) gm/dl Albumin 4.5 (3.4-5.0) gm/dl Globulin 4.8 H (2.5-4.0) gm/dl Albumin/Globulin Ratio 0.9 (0.9-2) Beta-Hydroxybutyric Acd (0.2-2.81) mg/dl Urine Color Urine Appearance (Clear) Urine pH (4.5-7.5) Ur Specific Cardwell (1.000-1.030) Urine Protein (Negative) Urine Glucose (UA) (Negative) Urine Ketones (Negative) Urine Blood (Negative) Urine Nitrite (Negative) Urine Bilirubin (Negative) Urine Urobilinogen (Negative) Ur Leukocyte Esterase (Negative) Urine WBC (Auto) (0-5) /hpf Urine RBC (Auto) (0-4) /hpf U Hyaline Cast (Auto) (0-5) /lpf U Epithel Cells (Auto) (0-5) /lpf Urine Bacteria (Auto) (Negative) 06/18/19 06/18/19 06/18/19 Range/Units 12:55 13:07 13:28 WBC (4.8-10.8) K/uL RBC (4.7-6.1) M/uL Hgb (14.0-18.0) g/dL POC Hgb 19.0 H (14.0-18.0) g/dl Hct (42-52) % POC Hct 56 H (42-52) % MCV (80-100) fL MCH (25-34) pg MCHC (32-36) g/dL RDW Std Deviation (36.4-46.3) fL RDW Coeff of Mariah (11.5-14.5) % Plt Count (130-400) K/uL MPV (7.4-10.4) fL Immature Gran % (Auto) % Neut % (Auto) % Lymph % (Auto) % Marion % (Auto) % Eos % (Auto) % Baso % (Auto) % Immature Gran # (Auto) (0.00-0.02) K/uL Neut # (Auto) (1.4-6.5) K/uL Lymph # (Auto) (1.2-3.4) K/uL Marion # (Auto) (0.11-0.59) K/uL Eos # (Auto) (0-0.5) K/uL Baso # (Auto) (0-0.2) K/uL ABG pH 7.15 L* (7.35-7.45) ABG pCO2 18 L (35-46) mmHg ABG pO2 131 H (80-95) mm/Hg ABG HCO3 6 L (19-24) mmol/L ABG O2 Saturation 98.0 H (90-95) % ABG Base Excess -20.4 L (-9-1.8) mEq/L Ronni Test Pos (Pos) Barometric Pressure 737.9 mm/Hg Oxygen Given RA POC Sodium 132 L (135-144) mEq/L Sodium (136-145) mmol/L POC Potassium 6.6 H* (3.3-5.0) mEq/L Potassium (3.5-5.1) mmol/L POC Chloride 104 (101-112) mEq/L Chloride (98-107) mmol/L Carbon Dioxide (21-32) mmol/L POC Total CO2 11 L (24-31) mEq/l Anion Gap (3-11) POC Anion Gap 24.0 (16-25) mmol/L POC BUN 41 H (7-18) mg/dl BUN (7-18) mg/dl Creatinine (0.6-1.4) mg/dl POC Creatinine 1.4 H (0.6-1.3) mg/dl Est Cr Clr Drug Dosing ml/min Est GFR ( Amer) Est GFR (Non-Af Amer) BUN/Creatinine Ratio (10-20) Glucose (70-99) mg/dl POC Glucose (70-99) POC Glucose (other) 649 H* (70-99) mg/dl Estimat Average Glucose mg/dl Hemoglobin A1c (4.5-5.6) % Calcium (8.5-10.1) mg/dl POC Ioniz Calcium Yaritza 1.31 (1.12-1.32) mmol/l Phosphorus (2.5-4.9) mg/dl Magnesium (1.8-2.4) mg/dl Total Bilirubin (0.2-1) mg/dl AST (15-37) U/L ALT (12-78) U/L Alkaline Phosphatase (45-117) U/L Total Protein (6.4-8.2) gm/dl Albumin (3.4-5.0) gm/dl Globulin (2.5-4.0) gm/dl Albumin/Globulin Ratio (0.9-2) Beta-Hydroxybutyric Acd (0.2-2.81) mg/dl Urine Color Yellow Urine Appearance Clear (Clear) Urine pH 5.0 (4.5-7.5) Ur Specific Cardwell 1.026 (1.000-1.030) Urine Protein 1+ H (Negative) Urine Glucose (UA) 3+ H (Negative) Urine Ketones 4+ H (Negative) Urine Blood Trace H (Negative) Urine Nitrite Negative (Negative) Urine Bilirubin Negative (Negative) Urine Urobilinogen Negative (Negative) Ur Leukocyte Esterase Negative (Negative) Urine WBC (Auto) 1-5 (0-5) /hpf Urine RBC (Auto) 0-4 (0-4) /hpf U Hyaline Cast (Auto) 1-5 (0-5) /lpf U Epithel Cells (Auto) 5-10 H (0-5) /lpf Urine Bacteria (Auto) Negative (Negative) 06/18/19 06/18/19 Range/Units 14:41 15:26 WBC (4.8-10.8) K/uL RBC (4.7-6.1) M/uL Hgb (14.0-18.0) g/dL POC Hgb 17.0 (14.0-18.0) g/dl Hct (42-52) % POC Hct 50 (42-52) % MCV (80-100) fL MCH (25-34) pg MCHC (32-36) g/dL RDW Std Deviation (36.4-46.3) fL RDW Coeff of Mariah (11.5-14.5) % Plt Count (130-400) K/uL MPV (7.4-10.4) fL Immature Gran % (Auto) % Neut % (Auto) % Lymph % (Auto) % Marion % (Auto) % Eos % (Auto) % Baso % (Auto) % Immature Gran # (Auto) (0.00-0.02) K/uL Neut # (Auto) (1.4-6.5) K/uL Lymph # (Auto) (1.2-3.4) K/uL Marion # (Auto) (0.11-0.59) K/uL Eos # (Auto) (0-0.5) K/uL Baso # (Auto) (0-0.2) K/uL ABG pH (7.35-7.45) ABG pCO2 (35-46) mmHg ABG pO2 (80-95) mm/Hg ABG HCO3 (19-24) mmol/L ABG O2 Saturation (90-95) % ABG Base Excess (-9-1.8) mEq/L Ronni Test (Pos) Barometric Pressure mm/Hg Oxygen Given POC Sodium 139 (135-144) mEq/L Sodium (136-145) mmol/L POC Potassium 5.3 H (3.3-5.0) mEq/L Potassium (3.5-5.1) mmol/L POC Chloride 113 H (101-112) mEq/L Chloride (98-107) mmol/L Carbon Dioxide (21-32) mmol/L POC Total CO2 11 L (24-31) mEq/l Anion Gap (3-11) POC Anion Gap 21.0 (16-25) mmol/L POC BUN 35 H (7-18) mg/dl BUN (7-18) mg/dl Creatinine (0.6-1.4) mg/dl POC Creatinine 1.1 (0.6-1.3) mg/dl Est Cr Clr Drug Dosing ml/min Est GFR ( Amer) Est GFR (Non-Af Amer) BUN/Creatinine Ratio (10-20) Glucose (70-99) mg/dl POC Glucose 506 H* (70-99) POC Glucose (other) 449 H* (70-99) mg/dl Estimat Average Glucose mg/dl Hemoglobin A1c (4.5-5.6) % Calcium (8.5-10.1) mg/dl POC Ioniz Calcium Yaritza 1.42 H (1.12-1.32) mmol/l Phosphorus (2.5-4.9) mg/dl Magnesium (1.8-2.4) mg/dl Total Bilirubin (0.2-1) mg/dl AST (15-37) U/L ALT (12-78) U/L Alkaline Phosphatase (45-117) U/L Total Protein (6.4-8.2) gm/dl Albumin (3.4-5.0) gm/dl Globulin (2.5-4.0) gm/dl Albumin/Globulin Ratio (0.9-2) Beta-Hydroxybutyric Acd (0.2-2.81) mg/dl Urine Color Urine Appearance (Clear) Urine pH (4.5-7.5) Ur Specific [place] (1.000-1.030) Urine Protein (Negative) Urine Glucose (UA) (Negative) Urine Ketones (Negative) Urine Blood (Negative) Urine Nitrite (Negative) Urine Bilirubin (Negative) Urine Urobilinogen (Negative) Ur Leukocyte Esterase (Negative) Urine WBC (Auto) (0-5) /hpf Urine RBC (Auto) (0-4) /hpf U Hyaline Cast (Auto) (0-5) /lpf U Epithel Cells (Auto) (0-5) /lpf Urine Bacteria (Auto) (Negative) Imaging Data Radiologist's Impression: Radiology results as stated below per my review and the radiologist's interpretation: XR chest 1V portable CLINICAL HISTORY: DKA dyspnea COMPARISON STUDY: 07/19/2017 FINDINGS: The bones soft tissues and hemidiaphragms are normal. The cardiomediastinal silhouette is normal. The lungs are clear. The pulmonary vasculature is normal. IMPRESSION: Negative chest. The above report was generated using voice recognition software. It may contain grammatical, syntax or spelling errors. Electronically signed by: Zbigniew Larsen M.D. 06/18/2019 1:[address] abd pelvis wo con CT DOSE: 330.73 mGy.cm HISTORY: Pain lower abd pain TECHNIQUE: Multiaxial CT images of the abdomen and pelvis were performed without contrast. A dose lowering technique was utilized adhering to the principles of ALARA. COMPARISON STUDY: 08/06/2013 FINDINGS: Chronic bibasilar fibrotic and subtle nodular type change. Moderate fatty replacement of liver. No evidence for gallbladder distention. Low density region within the right hepatic lobe which was uniformly enhancing on the prior study and appears to relate to a small hemangioma. Pancreas currently is uniform. Fluid-filled stomach. The adrenal glands are unremarkable. Kidneys are considered negative for hydronephrosis. There is a trace amount of perinephric infiltrative change considered chronic. No evidence for hydronephrosis. Bladder again is midline. There are small fat-containing inguinal hernias bilaterally. These are similar. There is no new or interval process. IMPRESSION: 1. No acute process in the abdomen or pelvis. 2. Small fat-containing inguinal hernias with no evidence for bowel containment or incarceration. 3. Fatty infiltration of the liver unchanged. The above report was generated using voice recognition software. It may contain grammatical, syntax or spelling errors. Electronically signed by: Zbigniew Larsen M.D. 06/18/2019 2:31 PM ECG Data Attestation: I personally reviewed and interpreted this ECG as follows: Indication: + weakness Rate (beats per minute): 142 Rhythm: + sinus tachycardia ECG Intervals/blocks: + Normal QRS and + Prolonged QT ECG [place]: + Normal ECG ST segments: no ST depression and no ST elevation ECG Findings: + PVCs Blood Pressure Blood Pressure Findings: Elevated blood pressure Blood Pressure Disposition: further management by hospitalist MDM Narrative Pt here ill appearing with DKA. Pt started on IVF, insulin drip after POC chem 8 performed. I feel EKG changes initially noted by EMS more likely from hyperkalemia than from STEMI as pt hasn't had chest pain or sob. Pt does have risk factors for ACS. Pt given IV calcium and albuterol. Pt not given bicarb or lasix. Pt appeared volume depleted. Pt made aware of all results and verbalized understanding of plan. Case discussed with hospitalist for admission. Repeat BMp preformed while awaiting their evaluation and was improving. Tachycardia improved with IVF. Pt afebrile. Given intermittent abd pain CT performed and was reassuring. Only etiology for DKA appears to be pt not taking his insulin for 2 days and only taking metformin. VS stable otherwise. Impression & Plan DKA (diabetic ketoacidoses), Hyperkalemia, Dehydration, Tachycardia Discharge Plan Visit Data *Final* Discharge Date/Time: 06/18/19 16:19 Chief Complaint: Cardiac Assessment ED Provider: Malia Grigsby Discharge Problem: DKA (diabetic ketoacidoses), Hyperkalemia, Dehydration, Tachycardia Patient Disposition: Admitted As Inpatient Discharge Instructions Interventions: ED Discharge Assessment Last Done: 06/18/19 16:19 Discharge Problem: DKA (diabetic ketoacidoses) Qualifiers: Diabetes mellitus type: type 2 Diabetes mellitus complication detail: with coma Qualified Code(s): E11.11 - Type 2 diabetes mellitus with ketoacidosis with coma The scribe's documentation has been prepared under my direction and personally reviewed by me in its entirety. I confirm that the note above accurately reflects all work, treatment, procedures, and medical decision making performed by me.
[2019-06-18] MEDS ORDERED: CALCIUM CHLORIDE 10% 1,000 MG in SODIUM CHLORIDE 0.9% 50 ML IV STA (13:00)
[2019-06-18] MEDS ORDERED: INSULIN REGULAR 250 UNITS in SODIUM CHLORIDE 0.9% 247.5 ML IV SCH (13:00)
--- NOTE | 2019-06-18 13:06 | XRay Report ---
XR chest 1V portable CLINICAL HISTORY: DKA dyspnea COMPARISON STUDY: 07/19/2017 FINDINGS: The bones soft tissues and hemidiaphragms are normal. The cardiomediastinal silhouette is n ormal. The lungs are clear. The pulmonary vasculature is normal. IMPRESSION: Negative chest. The above report was generated using voice recognition software. It may contain grammatical, syntax or spelling errors. Electronically signed by: Zbigniew Larsen M.D. 06/18/2019 1:05 PM
[2019-06-18 13:08] LABS: iSTAT Creatinine 1.4 mg/dl (0.6-1.3); iSTAT Ionized Calcium 1.31 mmol/l (1.12-1.32); iSTAT Potassium 6.6 mEq/L (3.3-5.0)
[2019-06-18 13:12] LABS: Hemoglobin 18.7 g/dL (14.0-18.0); Mean Corpuscular Hemoglobin 31.7 pg (25-34); Mean Corpuscular Hgb Conc 35.3 g/dL (32-36); Mean Corpuscular Volume 89.8 fL (80-100); Mean Platelet Volume 12.3 fL (7.4-10.4); Platelet Count 248 K/uL (130-400); RDW Coefficient of Variation 13.8 % (11.5-14.5); RDW Standard Deviation 45.1 fL (36.4-46.3); White Blood Count 19.21 K/uL (4.8-10.8)
[2019-06-18] MEDS ORDERED: ALBUTEROL 0.5% NEB SOLN 2.5 MG/0.5 ML VIAL NEB STA (13:27)
[2019-06-18] MEDS ORDERED: NovoLIN-R BOLUS FROM BAG IV ONE (13:30)
[2019-06-18 13:32] LABS: Appearance Urine Clear (Clear); Bacteria Urine Automated Negative (Negative); Bilirubin Urine Negative (Negative); Blood Urine Trace (Negative); Color Urine Yellow; Glucose Urine UA 3+ (Negative); Leukocyte Esterase Urine Negative (Negative); Nitrite Urine Negative (Negative); Protein Urine 1+ (Negative); RBC Urine Automated 0-4 /hpf (0-4); Specific Gravity Urine 1.026 (1.000-1.030); Urobilinogen Urine Negative (Negative)
[2019-06-18 13:39] LABS: Base Excess ABG -20.4 mEq/L (-9-1.8); HCO3 ABG 6 mmol/L (19-24); PCO2 ABG 18 mmHg (35-46); PO2 ABG 131 mm/Hg (80-95)
[2019-06-18 13:40] LABS: Allen Test Pos (Pos)
[2019-06-18 13:40] LABS: Basophils # (auto) 0.02 K/uL (0-0.2); Basophils % (auto) 0.1 %; Immature Granulocytes # (auto) 0.12 K/uL (0.00-0.02); Immature Granulocytes % (auto) 0.6 %; Lymphocytes # (auto) 1.09 K/uL (1.2-3.4); Lymphocytes % (auto) 5.7 %; Monocytes # (auto) 0.83 K/uL (0.11-0.59); Monocytes % (auto) 4.3 %; Neutrophils # (auto) 17.15 K/uL (1.4-6.5); Neutrophils % (auto) 89.3 %
[2019-06-18 13:41] LABS: Albumin Globulin Ratio 0.9 (0.9-2); Albumin Level 4.5 gm/dl (3.4-5.0); BUN Creatinine Ratio 20.8 (10-20); Bilirubin,Total 0.6 mg/dl (0.2-1); Calcium 10.9 mg/dl (8.5-10.1); Creatinine Clr Calc Pharmacy 41.3 ml/min; Est GFR (African American) 44.1; Globulin 4.8 gm/dl (2.5-4.0); Magnesium 2.5 mg/dl (1.8-2.4); Phosphorus 8.4 mg/dl (2.5-4.9); Potassium 6.3 mmol/L (3.5-5.1); Total Protein 9.3 gm/dl (6.4-8.2)
[2019-06-18 13:49] LABS: pH ABG 7.15 (7.35-7.45)
[2019-06-18] MEDS ORDERED: ALBUTEROL 0.083% NEBU SOLN 3 ML VIAL NEB STA (14:07)
[2019-06-18 14:08] LABS: Ketones Urine 4+ (Negative)
--- NOTE | 2019-06-18 14:33 | CT Scan Report ---
CT abd pelvis wo con CT DOSE: 330.73 mGy.cm HISTORY: Pain lower abd pain TECHNIQUE: Multiaxial CT images of the abdomen and pelvis were performed without contrast. A dose lo wering technique was utilized adhering to the principles of ALARA. COMPARISON STUDY: 08/06/2013 FINDINGS: Chronic bibasilar fibrotic and subtle nodular type change. Moderate fatty replacement of liver. No evidence for gallbladder distention. Low density region withi n the right hepatic lobe which was uniformly enhancing on the prior study and appears to relate to a small hemangioma. Pancreas currently is uniform. Fluid-filled stomach. The adrenal glands are unremarkable. Kidneys are considered negative for hydronephrosis. There is a trace amount of perinephric infiltrative change c onsidered chronic. No evidence for hydronephrosis. Bladder again is midline. There are small fat-containing inguinal hernias bilaterally. These are andrew lar. There is no new or interval process. IMPRESSION: 1. No acute process in the abdomen or pelvis. 2. Small fat-containing inguinal hernias with no evidence for bowel containment or incarceration. 3. Fatty infiltration of the liver unchanged. The above report was generated using voice recognition software. It may contain grammatical, syntax or spelling errors. Electronically signed by: Zbigniew Larsen M.D. 06/18/2019 2:31 PM
[2019-06-18] MEDS ORDERED: ONDANSETRON INJ 2 MG/ML 2 ML VIAL IV STA (14:39)
[2019-06-18 15:41] LABS: iSTAT Creatinine 1.1 mg/dl (0.6-1.3); iSTAT Ionized Calcium 1.42 mmol/l (1.12-1.32); iSTAT Potassium 5.3 mEq/L (3.3-5.0)
--- NOTE | 2019-06-18 16:22 | History & Physical Report ---
Date of Service June 18, 2019 Assessment & Plan (1) DKA (diabetic ketoacidoses): This is a 59-year-old male with a PMH of uncontrolled type 2 diabetes, HTN and HLD who presents with worsening shortness of breath and weakness since yesterday. -Has not been taking insulin due to cost of medication with insurance change -Initially with elevated BSG at 668 with hyperkalemia of 6.3. Initial creatinine 1.91 and anion gap of 27. ABG revealed pH of 7.15 with bicarb of 6 -Was started on an insulin drip in the ED as well as IV fluids -Repeat POC lab work a few hours later revealed downtrending blood glucose of 450, potassium of 5.3 and creatinine of 1.1. Patient has been making urine during time in ED -Discussed case with employment services director Dr. Garcia, who will manage the patient in the ICU -Will need diabetic education for adjustment of OP insulin regimen (2) Hyperkalemia: Initial K of 6.6. Given albuterol and calcium along with IV fluids. Downtrended to 5.3, no EKG changes -Continued monitoring and management per ICU (3) Acute kidney injury superimposed on chronic kidney disease: Cr initially elevated at 1.9 in setting of DKA. Cr has improved to 1.1 on recent POC BMP -Continue IV fluids, monitor (4) Hypertension: Mildly elevated -Hold lisinopril in setting of OMARI. Hydralazine PRN (5) Hyperlipidemia: Continue statin DVT Ppx: SQ Lovenox Code status: FULL PCP: Megha Dispo: Admitted to ICU. Discharge planning ordered. Patient seen in collaboration with Dr. Van. Please see addendum. History of Present Illness Chief Complaint: Shortness of breath, weakness Primary Care Provider: Derek Cleveland MD This is a 59-year-old male with a PMH of uncontrolled type 2 diabetes, HTN and HLD who presents with worsening shortness of breath and weakness since yesterday. Patient recently transitioned to a different insurance and Trulicity was too expensive so patient had not taken diabetic medication in a few days. has history of uncontrolled DM II with most recent a1c on record of 10.7 in Mar 2019. Was previously on Lantus and NovoLog prior to insurance change. Patient began to feel poorly yesterday with progressive weakness and shortness of breath as well as nausea and vomiting since yesterday. EMS was called today and blood sugar was significantly elevated. Patient was brought to ED for further evaluation. Endorses increased thirst and urination as well as dull lower abdominal pain. Denies any fever, chills, lightheadedness, visual changes, chest pain, palpitations, dysuria, diarrhea or constipation. Has been admitted in the past for DKA in 2014 as well as an episode that occurred earlier this year. In the ED, patient was found to have elevated blood sugar at 668 with hyperkalemia of 6.3 and bicarb of 9. Initial creatinine 1.91 and anion gap of 27. ABG revealed pH of 7.15 with bicarb of 6. Was started on an insulin drip in the ED and was given albuterol and calcium as well as IV fluids. Repeat [id number] lab work performed a few hours later revealed downtrending blood glucose of 450, potassium of 5.3 and creatinine of 1.1. Patient has been making urine during time in ED. Chest x-ray and CT abdomen pelvis unremarkable for any acute changes. Blood cultures were obtained. Allergies Allergy/AdvReac Type Severity Reaction Status Date / Time erythromycin base Allergy Mild Abdominal Verified 06/18/19 13:44 Pain Home Medications Home Medications Medication Instructions Recorded Confirmed Type atorvastatin 20 mg PO QAM 03/11/19 06/18/19 History glimepiride 4 mg PO BID 03/11/19 06/18/19 History lisinopril 10 mg PO QAM 03/11/19 06/18/19 History metformin 1,000 mg PO BIDM 03/11/19 06/18/19 History omeprazole 20 mg PO QAM 03/11/19 06/18/19 History dulaglutide [Trulicity] 1.5 mg SUBCUT WK 06/18/19 06/18/19 History Past Med/Surg History Medical History Carpal tunnel syndrome Diabetes (Acute) DKA (diabetic ketoacidoses) (Acute) Hyperkalemia (Acute) Hyperlipidemia Hypertension Irritable bowel syndrome (Chronic) Tobacco use Surgical History (Updated 06/18/19 @ 19:02 by Regla Torres PA-C) History of carpal tunnel surgery History of foot surgery Family History Other Diabetes Heart disease Social History Preferred Language: Portuguese Communication Ability: Effective Practice Professional Required: No Beliefs That Will Affect Care: None Current Living Situation: Spouse Other Information That Helps Us Care for You: No Feels Safe at Home: Yes Safety Concerns: Feels Safe At This Time Smoking Status: Current every day smoker Tobacco Type: cigarettes ; Cigarettes Per Day: Previously had quit for 8 years but resumed smoking 5 cig/day last month ; Do You Dip or Chew Tobacco: No ; Second Hand Exposure: Yes ; Tobacco Cessation Education Requested by Patient: No Hx Alcohol Use: No Hx Substance Use: No Review of Systems Review of Systems: At least ten systems reviewed and negative except as noted in the HPI. Physical Exam Physical Exam: General Appearance: WD/WN, vitals as above, NAD, sitting up in bed, flushed, conversing easily Head: normocephalic, atraumatic Eyes: normal inspection, PERRL, conjunctivae normal, anicteric sclerae ENT: external ear and nose normal, oropharynx normal Neck: trachea midline, no thyromegaly normal visual inspection Respiratory: normal respiratory effort, lungs clear to auscultation, no wheeze, rales, rhonchi. Normal insp/exp effort, no accessory muscle use Cardiovascular: regular rate, rhythm, systolic murmur, normal peripheral pulses. Vessels: no JVD or carotid bruit Chest: normal inspection of chest Abdomen/GI: normal bowel sounds, soft, mildly tender in LLQ and RLQ, no guarding, no hepatosplenomegaly Extremities/Musculoskelatal: no cyanosis or clubbing, extremities motor strength 5/5 Neurologic: PERRL, EOMI, accommodation nl, no face palsy, no dysarthria CN's II-XI intact bilaterally and moves all extremities Psychiatric: A+Ox3, euthymic affect Skin: no rashes, normal color, warm/dry Results & Data Vital Signs (Past 12 Hours) Vital Signs Temp Pulse Pulse Resp BP Pulse Ox 06/18/19 16:15 102 H 14 99 06/18/19 16:01 107 H 17 99 06/18/19 16:00 106 H 17 152/87 H 99 06/18/19 15:45 114 H 19 99 06/18/19 15:30 109 H 17 99 06/18/19 15:15 105 H 16 100 06/18/19 15:01 111 H 18 187/88 H 99 06/18/19 15:00 112 H 15 99 06/18/19 14:45 109 H 14 99 06/18/19 14:35 113 H 21 100 06/18/19 14:15 106 H 13 185/92 H 100 06/18/19 14:13 103 H 10 L 97 06/18/19 14:09 106 H 17 190/89 H 99 06/18/19 14:08 12 06/18/19 13:46 100 H 15 185/88 H 100 06/18/19 13:45 97 H 16 100 06/18/19 13:30 95 H 16 99 06/18/19 13:15 100 H 23 153/115 H 99 06/18/19 13:00 113 H 18 97 06/18/19 12:45 108 H 12 176/88 H 99 06/18/19 12:44 105 H 12 99 06/18/19 12:41 107 H 19 150/98 H 99 06/18/19 12:39 36.5 C 105 H 18 176/88 H 99 Laboratory Results Short CBC 06/18/19 Range/Units 12:50 WBC 19.21 H (4.8-10.8) K/uL Hgb 18.7 H (14.0-18.0) g/dL Hct 53.0 H (42-52) % Plt Count 248 (130-400) K/uL BMP 06/18/19 06/18/19 06/18/19 12:50 15:41 17:25 Sodium 131 L Potassium 6.3 H* 5.0 D 5.0 Chloride 95 L 111 H Carbon Dioxide 9 L* 12 L BUN 40 H 35 H Creatinine 1.91 H 1.37 D Glucose 668 H* Calcium 10.9 H 9.4 Liver Function 06/18/19 Range/Units 12:50 Total Bilirubin 0.6 (0.2-1) mg/dl AST 9 L (15-37) U/L ALT 34 (12-78) U/L Alkaline Phosphatase 189 H (45-117) U/L Albumin 4.5 (3.4-5.0) gm/dl Urine 06/18/19 Range/Units 13:07 Urine Color Yellow Urine Appearance Clear (Clear) Urine pH 5.0 (4.5-7.5) Ur Specific Industry 1.026 (1.000-1.030) Urine Protein 1+ H (Negative) Urine Glucose (UA) 3+ H (Negative) Diagnostic Findings CXR: IMPRESSION: Negative chest. CT abd/pelvis: IMPRESSION: 1. No acute process in the abdomen or pelvis. 2. Small fat-containing inguinal hernias with no evidence for bowel containment or incarceration. 3. Fatty infiltration of the liver unchanged. Supervising Physician Co-Signing Physician Notes Patient is a 59-year-old male with history of insulin-dependent diabetes mellitus, hypertension and other medical problems presents with history of worsening generalized weakness, shortness of breath, nausea, vomiting, epigastric discomfort. He admits to missing his insulin therapy. He also states noticing increased urinary frequency which he attributes to uncontrolled blood glucose levels. Please review HPI for complete details of presentation. Patient was noted to be in severe diabetic ketoacidosis, acute kidney injury, hyperkalemia--likely transfer lower shift, pseudohyponatremia, mild hypercalcemia, leukocytosis. On exam patient is moderately built and nourished, no apparent distress, normocephalic atraumatic, lungs clear to auscultation, S1-S2, tachycardia, no pedal edema, abdomen soft, epigastric tender, no guarding or rigidity, grossly no focal neurologic deficits. Patient is admitted for management of DKA, OMARI, hyperkalemia. No obvious source of infection. Patient is started on insulin therapy, IV fluids. Monitor electrolytes, renal function. Hold metformin, lisinopril for now. Consider PPI or H2 fortino in setting of acute DKA. Leather Belt Maker consulted for further management. I personally reviewed the record. Patient is interviewed and examined at bedside. Patient's care is co ordinated with Regla Torres PA-C. Please refer to the documentation above for details of patient's presentation and for discussion of other issues.
[2019-06-18] MEDS ORDERED: ICU PROTOCOL FOR HYPERGLYCEMIA PRN (16:37)
--- NOTE | 2019-06-18 17:17 | Critical Care Consultation ---
Date of Consultation June 18, 2019 Assessment & Plan (1) Admitted to intensive care unit: Reason Critically Ill: 59-year-old male here for DKA. Past medical history significant for diabetes type 2 with prior episodes of hhnk and dka , hypertension, hyperlipidemia Neuro: -CAM ICU: NEGATIVE -Alert and oriented x4 no acute concerns Cardiac: Chest pain likely musculoskeletal: Patient reports shortness of breath chest pain earlier today likely musculoskeletal in origin. EKG on arrival was unchanged from prior EKGs and no concern for ACS at present. -Troponin negative Respiratory: Shortness of breath: Patient reported shortness of breath earlier today in addition to weakness. Both the symptoms are likely secondary to his underlying hyperglycemia. Reported improvement in symptoms status post resolution of blood sugar. -PRN O2 -Monitor for signs and symptoms of acute decompensation -CXR negative GI: -NPO for now, when blood sugars and nausea resolve can advance diet as tolerated. Will be on a diabetic type II diet. Epigastric tenderness: Patient reports epigastric tenderness etiology is yet to be determined differential includes secondary to recurrent hypoglycemic episode versus pancreatitis. On physical exam he did have guarding and pain was elucidated upon palpating the right upper quadrant and left upper quadrant. Does not appear to be a surgical abdomen at present. Patient also endorsed nausea earlier today likely secondary to hyperglycemia. -zofran prn nausea -Lipase pending -Ct abd pelvis negative -monitor for improvement RENAL/LYTES: Hyperkalemia: Patient presented to the emergency department the potassium of 6.3 now 5.0 status post fluid resuscitation. -bmp q4 OMARI: Patient presented to the emergency department elevated creatinine of 1.9. He is currently status post fluid resuscitation and creatinine is down trended to 1.37. I expect the creatinine to continue to improve. Per review of her records it appears that his baseline creatinine is somewhere around 1.25. -Continue IVF -BMP q4h : - No concerns at this time. ENDO: DKA: See subjective. Patient presented to the emergency department with weakness, shortness of breath, increased urination. EMS reported he was profoundly hyperglycemic in the field in fact his blood sugar was so high the machine could not process it. Upon arrival to the emergency department his blood glucose was found to be 668 with a gap of 27 he was placed on insulin drip and it has been downtrending since then. -bmp q4h -bhb 68.86 -Continue insulin drip until gap closes, feed the patient and provide insulin. Assuming he tolerates this well you can DC the drip -NPO for now -glycemic cx placed -lactate 2.9 continue to trend HEME: - Stable H&H. ID: -No concerns for infection at this point, procal negative, -Monitor fever curve. INTEGUMENTARY: -no concerns at present LINES/IV ACCESS: -PIVs intact. DVT PROPHYLAXIS: -lovenox 40 qday Dispo:ICU Thank you for allowing us to be part of this patient's care. Please refer to Dr. Garcia 's documentation for any further recommendations. (2) Hyperlipidemia: (3) Diabetes: (4) Metabolic acidosis: (5) Hyperkalemia: Supervising Physician Co-Signing Physician Notes Dr. Torres was the resident-physician during care of patient. I separately evaluated patient for turcios portions of the history and the exam. I was present during the critical portion of medical decision making, and I discussed the case with the resident. I generally agree with the findings and plan except for any additions/exceptions noted. Patient was evidence of DKA likely related to noncompliance. No obvious infectious symptoms. He had some abdominal discomfort and a CT abdomen has been generally unremarkable. Lipase and LFTs ordered. Continue insulin drip with IV fluids. Will transition to D5 with half-normal saline once glucose drops below 250. N.p.o. for now. Crossover long-acting insulin with insulin drip for at least 2 hours when the anion gap closes and the bicarbonate is above 15. I have personally spent 30 minutes of critical care time in the direct management of this patient. This is a life/limb threatening event. This includes time spent evaluating patient, direct bedside care, chart review, placing orders, interpretation of diagnostic studies, discussion with consultants, patient, and/or family members regarding treatment decisions, as w ell as other required patient management activities. This time is exclusive of all separately billable procedures, and teaching time and separate from and in addition to any other critical care service time. History of Present Illness Attending Physician: Alonzo Van MD History of Present Illness Patient is a 59-year-old male with past medical history of diabetes type 2 hypertension hyperlipidemia who presents today for evaluation of worsening shortness of breath and weakness. Patient was transferred to the intensive care unit from the emergency department for evaluation and management of DKA. Patient is a history of diabetes previously well controlled, reports 2 prior similar episodes 1 in 2014 reviewed H and H NK with a coma, and a similar episode that occurred earlier this year.. Per report has been poorly controlled recently secondary to not taking his medication. EMS was called to the patient's house today due to worsening weakness, they obtained a blood sugar upon arrival and it backslash that machine. Although the patient reports not taking his insulin recently he has been taking his meds Kt. Reports weight is been occurring for approximately 2 days with associated shortness of breath, no chest pain, slurred speech this appears to be at baseline and increased urination. Patient has also endorsed intermittent abdominal pain over the last 2 weeks but was not significantly bothered by it. In the emergency department he was started on insulin drip, and labs were obtained. Hemoglobin is 18.7, he is a white count of 19.2, blood glucose on arrival 649, now 375. Patient is a bit hyperkalemic at 5.3. Lactate 2.9. ABG obtained in the ED was 7.15, 18, 131, 6. Chest x-ray was negative, abdominal pelvis CT scan was negative, cultures were obtained. During my interview with the patient I attempted to elucidate what diabetic medications he was been on and further information regarding his diagnosis. Patient states he was diagnosed with diabetes approximately 7 years ago, initially started on Lantus and Novolin. He was then continued on Lantus and Novolin until his sugars normalized approximately 2 years. For the last 5 years he has been maintained on Trulicity, metformin, glimepiride. Patient is recently changed insurance and states he has not picked up his Trulicity recently due to insurance changes, if he had to pay [id number] would cost $1000 or so per month. I attempted to clarify when the patient had last taken his Trulicity. He states last Sunday, but then changed his story several times. I suspect he has not taken his Trulicity for at least a week if not longer, if he had taken it last week it should still be effective. Through conversation with the family I am under the impression that the patient does not eat a diabetic diet, and consumes sugary foods. I am concerned the patient does not understand the implications of his condition and the absolute necessity to be on the correct medications. Patient is lying comfortably in the ICU on an insulin drip in no acute distress. Patient reports feeling better currently, symptoms resolving, abd crossing tender. Patient remains in the ICU for further evaluation and monitoring until transitioned off of insulin drip and stabilized. All questions answered no acute concerns Allergies Allergy/AdvReac Type Severity Reaction Status Date / Time erythromycin base Allergy Mild Abdominal Verified 06/18/19 13:44 Pain Home Medications Home Medications Medication Instructions Recorded Confirmed Type atorvastatin 20 mg PO QAM 03/11/19 06/18/19 History glimepiride 4 mg PO BID 03/11/19 06/18/19 History lisinopril 10 mg PO QAM 03/11/19 06/18/19 History metformin 1,000 mg PO BIDM 03/11/19 06/18/19 History omeprazole 20 mg PO QAM 03/11/19 06/18/19 History dulaglutide [Trulicity] 1.5 mg SUBCUT WK 06/18/19 06/18/19 History Patient History Medical History Carpal tunnel syndrome Diabetes (Acute) DKA (diabetic ketoacidoses) (Acute) Hyperkalemia (Acute) Hyperlipidemia Hypertension Irritable bowel syndrome (Chronic) Tobacco use Surgical History (Updated 06/18/19 @ 19:02 by Regla Torres PA-C) History of carpal tunnel surgery History of foot surgery Family History Other Diabetes Heart disease Social History Preferred Language: Thai Communication Ability: Effective Staff Pharmacist Required: No Beliefs That Will Affect Care: None Current Living Situation: Spouse Other Information That Helps Us Care for You: No Feels Safe at Home: Yes Safety Concerns: Feels Safe At This Time Smoking Status: Current every day smoker Tobacco Type: cigarettes ; Cigarettes Per Day: Previously had quit for 8 years but resumed smoking 5 cig/day last month ; Do You Dip or Chew Tobacco: No ; Second Hand Exposure: Yes ; Tobacco Cessation Education Requested by Patient: No Hx Alcohol Use: No Hx Substance Use: No Physical Exam Physical Exam: General: Elderly gentleman lying in bed in no acute distress HEENT: Normocephalic atraumatic Neck: Normal visual inspection, trachea midline Cardiac: Tachycardic regular rhythm, normal S1, normal S2, did not appreciate any significant murmurs rubs or gallops, negative calf tenderness, negative pedal edema Respiratory: Clear to auscultation bilaterally without significant wheezes, where rales, rhonchi. Symmetrical chest rise, no increased work of breathing GI: Soft, mildly distended, tender to palpation in the upper right quadrant & upper left quadrant with positive guarding MSK: Moves all extremities although weak Skin: No acute concerns are present or obvious deformities Neuro: Alert and oriented x4 Psych: Calm, cooperative, poor health literacy Results & Data Vital Signs (Past 12 Hours) Vital Signs Temp Pulse Pulse Resp BP BP Pulse Ox 06/18/19 16:40 36.5 C 105 H 16 163/83 H 100 06/18/19 16:15 102 H 14 99 06/18/19 16:01 107 H 17 99 06/18/19 16:00 106 H 17 152/87 H 99 06/18/19 15:45 114 H 19 99 06/18/19 15:30 109 H 17 99 06/18/19 15:15 105 H 16 100 06/18/19 15:01 111 H 18 187/88 H 99 06/18/19 15:00 112 H 15 99 06/18/19 14:45 109 H 14 99 06/18/19 14:35 113 H 21 100 06/18/19 14:15 106 H 13 185/92 H 100 06/18/19 14:13 103 H 10 L 97 06/18/19 14:09 106 H 17 190/89 H 99 06/18/19 14:08 12 06/18/19 13:46 100 H 15 185/88 H 100 06/18/19 13:45 97 H 16 100 06/18/19 13:30 95 H 16 99 06/18/19 13:15 100 H 23 153/115 H 99 06/18/19 13:00 113 H 18 97 06/18/19 12:45 108 H 12 176/88 H 99 06/18/19 12:44 105 H 12 99 06/18/19 12:41 107 H 19 150/98 H 99 06/18/19 12:39 36.5 C 105 H 18 176/88 H 99 Laboratory Results 06/18/19 06/18/19 06/18/19 Range/Units 17:25 17:25 17:25 WBC (4.8-10.8) K/uL RBC (4.7-6.1) M/uL Hgb (14.0-18.0) g/dL POC Hgb (14.0-18.0) g/dl Hct (42-52) % POC Hct (42-52) % MCV (80-100) fL MCH (25-34) pg MCHC (32-36) g/dL RDW Std Deviation (36.4-46.3) fL RDW Coeff of Mariah (11.5-14.5) % Plt Count (130-400) K/uL MPV (7.4-10.4) fL Immature Gran % (Auto) % Neut % (Auto) % Lymph % (Auto) % [place] % (Auto) % Eos % (Auto) % Baso % (Auto) % Immature Gran # (Auto) (0.00-0.02) K/uL Neut # (Auto) (1.4-6.5) K/uL Lymph # (Auto) (1.2-3.4) K/uL [place] # (Auto) (0.11-0.59) K/uL Eos # (Auto) (0-0.5) K/uL Baso # (Auto) (0-0.2) K/uL ABG pH (7.35-7.45) ABG pCO2 (35-46) mmHg ABG pO2 (80-95) mm/Hg ABG HCO3 (19-24) mmol/L ABG O2 Saturation (90-95) % ABG Base Excess (-9-1.8) mEq/L Ronni Test (Pos) VBG pH 7.20 L (7.36-7.41) Barometric Pressure mm/Hg Oxygen Given POC Sodium (135-144) mEq/L Sodium (136-145) mmol/L POC Potassium (3.3-5.0) mEq/L Potassium (3.5-5.1) mmol/L POC Chloride (101-112) mEq/L Chloride (98-107) mmol/L Carbon Dioxide (21-32) mmol/L POC Total CO2 (24-31) mEq/l Anion Gap (3-11) POC Anion Gap (16-25) mmol/L POC BUN (7-18) mg/dl BUN (7-18) mg/dl Creatinine (0.6-1.4) mg/dl POC Creatinine (0.6-1.3) mg/dl Est Cr Clr Drug Dosing ml/min Est GFR ( Amer) Est GFR (Non-Af Amer) BUN/Creatinine Ratio (10-20) Glucose (70-99) mg/dl POC Glucose (70-99) POC Glucose (other) (70-99) mg/dl Estimat Average Glucose Hemoglobin A1c Lactate (0.4-2.0) mmol/L Calcium (8.5-10.1) mg/dl POC Ioniz Calcium Yaritza (1.12-1.32) mmol/l Phosphorus (2.5-4.9) mg/dl Magnesium (1.8-2.4) mg/dl Total Bilirubin (0.2-1) mg/dl AST (15-37) U/L ALT (12-78) U/L Alkaline Phosphatase (45-117) U/L Total Protein (6.4-8.2) gm/dl Albumin (3.4-5.0) gm/dl Globulin (2.5-4.0) gm/dl Albumin/Globulin Ratio (0.9-2) Beta-Hydroxybutyric Acd (0.2-2.81) mg/dl Procalcitonin Pending Urine Color Urine Appearance (Clear) Urine pH (4.5-7.5) Ur Specific [place] (1.000-1.030) Urine Protein (Negative) Urine Glucose (UA) (Negative) Urine Ketones (Negative) Urine Blood (Negative) Urine Nitrite (Negative) Urine Bilirubin (Negative) Urine Urobilinogen (Negative) Ur Leukocyte Esterase (Negative) Urine WBC (Auto) (0-5) /hpf Urine RBC (Auto) (0-4) /hpf U Hyaline Cast (Auto) (0-5) /lpf U Epithel Cells (Auto) (0-5) /lpf Urine Bacteria (Auto) (Negative) Nasal Screen MRSA (PCR) Hepatitis C Ab Screen Pending 06/18/19 06/18/19 06/18/19 Range/Units 17:25 17:15 16:47 WBC (4.8-10.8) K/uL RBC (4.7-6.1) M/uL Hgb (14.0-18.0) g/dL POC Hgb (14.0-18.0) g/dl Hct (42-52) % POC Hct (42-52) % MCV (80-100) fL MCH (25-34) pg MCHC (32-36) g/dL RDW Std Deviation (36.4-46.3) fL RDW Coeff of Mariah (11.5-14.5) % Plt Count (130-400) K/uL MPV (7.4-10.4) fL Immature Gran % (Auto) % Neut % (Auto) % Lymph % (Auto) % [place] % (Auto) % Eos % (Auto) % Baso % (Auto) % Immature Gran # (Auto) (0.00-0.02) K/uL Neut # (Auto) (1.4-6.5) K/uL Lymph # (Auto) (1.2-3.4) K/uL [place] # (Auto) (0.11-0.59) K/uL Eos # (Auto) (0-0.5) K/uL Baso # (Auto) (0-0.2) K/uL ABG pH (7.35-7.45) ABG pCO2 (35-46) mmHg ABG pO2 (80-95) mm/Hg ABG HCO3 (19-24) mmol/L ABG O2 Saturation (90-95) % ABG Base Excess (-9-1.8) mEq/L Ronni Test (Pos) VBG pH (7.36-7.41) Barometric Pressure mm/Hg Oxygen Given POC Sodium (135-144) mEq/L Sodium Pending (136-145) mmol/L POC Potassium (3.3-5.0) mEq/L Potassium Pending (3.5-5.1) mmol/L POC Chloride (101-112) mEq/L Chloride Pending (98-107) mmol/L Carbon Dioxide Pending (21-32) mmol/L POC Total CO2 (24-31) mEq/l Anion Gap Pending (3-11) POC Anion Gap (16-25) mmol/L POC BUN (7-18) mg/dl BUN Pending (7-18) mg/dl Creatinine Pending (0.6-1.4) mg/dl POC Creatinine (0.6-1.3) mg/dl Est Cr Clr Drug Dosing Pending ml/min Est GFR ( Amer) Pending Est GFR (Non-Af Amer) Pending BUN/Creatinine Ratio Pending (10-20) Glucose Pending (70-99) mg/dl POC Glucose 375 H* (70-99) POC Glucose (other) (70-99) mg/dl Estimat Average Glucose Hemoglobin A1c Lactate (0.4-2.0) mmol/L Calcium Pending (8.5-10.1) mg/dl POC Ioniz Calcium Yaritza (1.12-1.32) mmol/l Phosphorus Pending (2.5-4.9) mg/dl Magnesium Pending (1.8-2.4) mg/dl Total Bilirubin (0.2-1) mg/dl AST (15-37) U/L ALT (12-78) U/L Alkaline Phosphatase (45-117) U/L Total Protein (6.4-8.2) gm/dl Albumin (3.4-5.0) gm/dl Globulin (2.5-4.0) gm/dl Albumin/Globulin Ratio (0.9-2) Beta-Hydroxybutyric Acd Pending (0.2-2.81) mg/dl Procalcitonin Urine Color Urine Appearance (Clear) Urine pH (4.5-7.5) Ur Specific [place] (1.000-1.030) Urine Protein (Negative) Urine Glucose (UA) (Negative) Urine Ketones (Negative) Urine Blood (Negative) Urine Nitrite (Negative) Urine Bilirubin (Negative) Urine Urobilinogen (Negative) Ur Leukocyte Esterase (Negative) Urine WBC (Auto) (0-5) /hpf Urine RBC (Auto) (0-4) /hpf U Hyaline Cast (Auto) (0-5) /lpf U Epithel Cells (Auto) (0-5) /lpf Urine Bacteria (Auto) (Negative) Nasal Screen MRSA (PCR) Pending Hepatitis C Ab Screen 06/18/19 06/18/19 06/18/19 Range/Units 15:41 15:41 15:26 WBC (4.8-10.8) K/uL RBC (4.7-6.1) M/uL Hgb (14.0-18.0) g/dL POC Hgb 17.0 (14.0-18.0) g/dl Hct (42-52) % POC Hct 50 (42-52) % MCV (80-100) fL MCH (25-34) pg MCHC (32-36) g/dL RDW Std Deviation (36.4-46.3) fL RDW Coeff of Mariah (11.5-14.5) % Plt Count (130-400) K/uL MPV (7.4-10.4) fL Immature Gran % (Auto) % Neut % (Auto) % Lymph % (Auto) % [place] % (Auto) % Eos % (Auto) % Baso % (Auto) % Immature Gran # (Auto) (0.00-0.02) K/uL Neut # (Auto) (1.4-6.5) K/uL Lymph # (Auto) (1.2-3.4) K/uL [place] # (Auto) (0.11-0.59) K/uL Eos # (Auto) (0-0.5) K/uL Baso # (Auto) (0-0.2) K/uL ABG pH (7.35-7.45) ABG pCO2 (35-46) mmHg ABG pO2 (80-95) mm/Hg ABG HCO3 (19-24) mmol/L ABG O2 Saturation (90-95) % ABG Base Excess (-9-1.8) mEq/L Ronni Test (Pos) VBG pH (7.36-7.41) Barometric Pressure mm/Hg Oxygen Given POC Sodium 139 (135-144) mEq/L Sodium (136-145) mmol/L POC Potassium 5.3 H (3.3-5.0) mEq/L Potassium 5.0 D (3.5-5.1) mmol/L POC Chloride 113 H (101-112) mEq/L Chloride (98-107) mmol/L Carbon Dioxide (21-32) mmol/L POC Total CO2 11 L (24-31) mEq/l Anion Gap (3-11) POC Anion Gap 21.0 (16-25) mmol/L POC BUN 35 H (7-18) mg/dl BUN (7-18) mg/dl Creatinine (0.6-1.4) mg/dl POC Creatinine 1.1 (0.6-1.3) mg/dl Est Cr Clr Drug Dosing ml/min Est GFR ( Amer) Est GFR (Non-Af Amer) BUN/Creatinine Ratio (10-20) Glucose (70-99) mg/dl POC Glucose (70-99) POC Glucose (other) 449 H* (70-99) mg/dl Estimat Average Glucose Hemoglobin A1c Lactate 2.9 H* (0.4-2.0) mmol/L Calcium (8.5-10.1) mg/dl POC Ioniz Calcium Y[place] 1.42 H (1.12-1.32) mmol/l Phosphorus (2.5-4.9) mg/dl Magnesium (1.8-2.4) mg/dl Total Bilirubin (0.2-1) mg/dl AST (15-37) U/L ALT (12-78) U/L Alkaline Phosphatase (45-117) U/L Total Protein (6.4-8.2) gm/dl Albumin (3.4-5.0) gm/dl Globulin (2.5-4.0) gm/dl Albumin/Globulin Ratio (0.9-2) Beta-Hydroxybutyric Acd (0.2-2.81) mg/dl Procalcitonin Urine Color Urine Appearance (Clear) Urine pH (4.5-7.5) Ur Specific [place] (1.000-1.030) Urine Protein (Negative) Urine Glucose (UA) (Negative) Urine Ketones (Negative) Urine Blood (Negative) Urine Nitrite (Negative) Urine Bilirubin (Negative) Urine Urobilinogen (Negative) Ur Leukocyte Esterase (Negative) Urine WBC (Auto) (0-5) /hpf Urine RBC (Auto) (0-4) /hpf U Hyaline Cast (Auto) (0-5) /lpf U Epithel Cells (Auto) (0-5) /lpf Urine Bacteria (Auto) (Negative) Nasal Screen MRSA (PCR) Hepatitis C Ab Screen 06/18/19 06/18/19 06/18/19 Range/Units 14:41 13:28 13:07 WBC (4.8-10.8) K/uL RBC (4.7-6.1) M/uL Hgb (14.0-18.0) g/dL POC Hgb (14.0-18.0) g/dl Hct (42-52) % POC Hct (42-52) % MCV (80-100) fL MCH (25-34) pg MCHC (32-36) g/dL RDW Std Deviation (36.4-46.3) fL RDW Coeff of Mariah (11.5-14.5) % Plt Count (130-400) K/uL MPV (7.4-10.4) fL Immature Gran % (Auto) % Neut % (Auto) % Lymph % (Auto) % [place] % (Auto) % Eos % (Auto) % Baso % (Auto) % Immature Gran # (Auto) (0.00-0.02) K/uL Neut # (Auto) (1.4-6.5) K/uL Lymph # (Auto) (1.2-3.4) K/uL [place] # (Auto) (0.11-0.59) K/uL Eos # (Auto) (0-0.5) K/uL Baso # (Auto) (0-0.2) K/uL ABG pH 7.15 L* (7.35-7.45) ABG pCO2 18 L (35-46) mmHg ABG pO2 131 H (80-95) mm/Hg ABG HCO3 6 L (19-24) mmol/L ABG O2 Saturation 98.0 H (90-95) % ABG Base Excess -20.4 L (-9-1.8) mEq/L Ronni Test Pos (Pos) VBG pH (7.36-7.41) Barometric Pressure 737.9 mm/Hg Oxygen Given RA POC Sodium (135-144) mEq/L Sodium (136-145) mmol/L POC Potassium (3.3-5.0) mEq/L Potassium (3.5-5.1) mmol/L POC Chloride (101-112) mEq/L Chloride (98-107) mmol/L Carbon Dioxide (21-32) mmol/L POC Total CO2 (24-31) mEq/l Anion Gap (3-11) POC Anion Gap (16-25) mmol/L POC BUN (7-18) mg/dl BUN (7-18) mg/dl Creatinine (0.6-1.4) mg/dl POC Creatinine (0.6-1.3) mg/dl Est Cr Clr Drug Dosing ml/min Est GFR ( Amer) Est GFR (Non-Af Amer) BUN/Creatinine Ratio (10-20) Glucose (70-99) mg/dl POC Glucose 506 H* (70-99) POC Glucose (other) (70-99) mg/dl Estimat Average Glucose Hemoglobin A1c Lactate (0.4-2.0) mmol/L Calcium (8.5-10.1) mg/dl POC Ioniz Calcium [place] (1.12-1.32) mmol/l Phosphorus (2.5-4.9) mg/dl Magnesium (1.8-2.4) mg/dl Total Bilirubin (0.2-1) mg/dl AST (15-37) U/L ALT (12-78) U/L Alkaline Phosphatase (45-117) U/L Total Protein (6.4-8.2) gm/dl Albumin (3.4-5.0) gm/dl Globulin (2.5-4.0) gm/dl Albumin/Globulin Ratio (0.9-2) Beta-Hydroxybutyric Acd (0.2-2.81) mg/dl Procalcitonin Urine Color Yellow Urine Appearance Clear (Clear) Urine pH 5.0 (4.5-7.5) Ur Specific [place] 1.026 (1.000-1.030) Urine Protein 1+ H (Negative) Urine Glucose (UA) 3+ H (Negative) Urine Ketones 4+ H (Negative) Urine Blood Trace H (Negative) Urine Nitrite Negative (Negative) Urine Bilirubin Negative (Negative) Urine Urobilinogen Negative (Negative) Ur Leukocyte Esterase Negative (Negative) Urine WBC (Auto) 1-5 (0-5) /hpf Urine RBC (Auto) 0-4 (0-4) /hpf U Hyaline Cast (Auto) 1-5 (0-5) /lpf U Epithel Cells (Auto) 5-10 H (0-5) /lpf Urine Bacteria (Auto) Negative (Negative) Nasal Screen MRSA (PCR) Hepatitis C Ab Screen 06/18/19 06/18/19 06/18/19 Range/Units 12:55 12:50 12:50 WBC (4.8-10.8) K/uL RBC (4.7-6.1) M/uL Hgb (14.0-18.0) g/dL POC Hgb 19.0 H (14.0-18.0) g/dl Hct (42-52) % POC Hct 56 H (42-52) % MCV (80-100) fL MCH (25-34) pg MCHC (32-36) g/dL RDW Std Deviation (36.4-46.3) fL RDW Coeff of Mariah (11.5-14.5) % Plt Count (130-400) K/uL MPV (7.4-10.4) fL Immature Gran % (Auto) % Neut % (Auto) % Lymph % (Auto) % [place] % (Auto) % Eos % (Auto) % Baso % (Auto) % Immature Gran # (Auto) (0.00-0.02) K/uL Neut # (Auto) (1.4-6.5) K/uL Lymph # (Auto) (1.2-3.4) K/uL [place] # (Auto) (0.11-0.59) K/uL Eos # (Auto) (0-0.5) K/uL Baso # (Auto) (0-0.2) K/uL ABG pH (7.35-7.45) ABG pCO2 (35-46) mmHg ABG pO2 (80-95) mm/Hg ABG HCO3 (19-24) mmol/L ABG O2 Saturation (90-95) % ABG Base Excess (-9-1.8) mEq/L Ronni Test (Pos) VBG pH (7.36-7.41) Barometric Pressure mm/Hg Oxygen Given POC Sodium 132 L (135-144) mEq/L Sodium 131 L (136-145) mmol/L POC Potassium 6.6 H* (3.3-5.0) mEq/L Potassium 6.3 H* (3.5-5.1) mmol/L POC Chloride 104 (101-112) mEq/L Chloride 95 L (98-107) mmol/L Carbon Dioxide 9 L* (21-32) mmol/L POC Total CO2 11 L (24-31) mEq/l Anion Gap 27.0 H (3-11) POC Anion Gap 24.0 (16-25) mmol/L POC BUN 41 H (7-18) mg/dl BUN 40 H (7-18) mg/dl Creatinine 1.91 H (0.6-1.4) mg/dl POC Creatinine 1.4 H (0.6-1.3) mg/dl Est Cr Clr Drug Dosing 41.3 ml/min Est GFR ( Amer) 44.1 Est GFR (Non-Af Amer) 38.0 BUN/Creatinine Ratio 20.8 H (10-20) Glucose 668 H* (70-99) mg/dl POC Glucose (70-99) POC Glucose (other) 649 H* (70-99) mg/dl Estimat Average Glucose Pending Hemoglobin A1c Pending Lactate (0.4-2.0) mmol/L Calcium 10.9 H (8.5-10.1) mg/dl POC Ioniz Calcium [place] 1.31 (1.12-1.32) mmol/l Phosphorus 8.4 H (2.5-4.9) mg/dl Magnesium 2.5 H (1.8-2.4) mg/dl Total Bilirubin 0.6 (0.2-1) mg/dl AST 9 L (15-37) U/L ALT 34 (12-78) U/L Alkaline Phosphatase 189 H (45-117) U/L Total Protein 9.3 H (6.4-8.2) gm/dl Albumin 4.5 (3.4-5.0) gm/dl Globulin 4.8 H (2.5-4.0) gm/dl Albumin/Globulin Ratio 0.9 (0.9-2) Beta-Hydroxybutyric Acd (0.2-2.81) mg/dl Procalcitonin Urine Color Urine Appearance (Clear) Urine pH (4.5-7.5) Ur Specific [place] (1.000-1.030) Urine Protein (Negative) Urine Glucose (UA) (Negative) Urine Ketones (Negative) Urine Blood (Negative) Urine Nitrite (Negative) Urine Bilirubin (Negative) Urine Urobilinogen (Negative) Ur Leukocyte Esterase (Negative) Urine WBC (Auto) (0-5) /hpf Urine RBC (Auto) (0-4) /hpf U Hyaline Cast (Auto) (0-5) /lpf U Epithel Cells (Auto) (0-5) /lpf Urine Bacteria (Auto) (Negative) Nasal Screen MRSA (PCR) Hepatitis C Ab Screen 06/18/19 Range/Units 12:50 WBC 19.21 H (4.8-10.8) K/uL RBC 5.90 (4.7-6.1) M/uL Hgb 18.7 H (14.0-18.0) g/dL POC Hgb (14.0-18.0) g/dl Hct 53.0 H (42-52) % POC Hct (42-52) % MCV 89.8 (80-100) fL MCH 31.7 (25-34) pg MCHC 35.3 (32-36) g/dL RDW Std Deviation 45.1 (36.4-46.3) fL RDW Coeff of Mariah 13.8 (11.5-14.5) % Plt Count 248 (130-400) K/uL MPV 12.3 H (7.4-10.4) fL Immature Gran % (Auto) 0.6 % Neut % (Auto) 89.3 % Lymph % (Auto) 5.7 % [place] % (Auto) 4.3 % Eos % (Auto) 0.0 % Baso % (Auto) 0.1 % Immature Gran # (Auto) 0.12 H (0.00-0.02) K/uL Neut # (Auto) 17.15 H (1.4-6.5) K/uL Lymph # (Auto) 1.09 L (1.2-3.4) K/uL [place] # (Auto) 0.83 H (0.11-0.59) K/uL Eos # (Auto) 0.00 (0-0.5) K/uL Baso # (Auto) 0.02 (0-0.2) K/uL ABG pH (7.35-7.45) ABG pCO2 (35-46) mmHg ABG pO2 (80-95) mm/Hg ABG HCO3 (19-24) mmol/L ABG O2 Saturation (90-95) % ABG Base Excess (-9-1.8) mEq/L Ronni Test (Pos) VBG pH (7.36-7.41) Barometric Pressure mm/Hg Oxygen Given POC Sodium (135-144) mEq/L Sodium (136-145) mmol/L POC Potassium (3.3-5.0) mEq/L Potassium (3.5-5.1) mmol/L POC Chloride (101-112) mEq/L Chloride (98-107) mmol/L Carbon Dioxide (21-32) mmol/L POC Total CO2 (24-31) mEq/l Anion Gap (3-11) POC Anion Gap (16-25) mmol/L POC BUN (7-18) mg/dl BUN (7-18) mg/dl Creatinine (0.6-1.4) mg/dl POC Creatinine (0.6-1.3) mg/dl Est Cr Clr Drug Dosing ml/min Est GFR ( Amer) Est GFR (Non-Af Amer) BUN/Creatinine Ratio (10-20) Glucose (70-99) mg/dl POC Glucose (70-99) POC Glucose (other) (70-99) mg/dl Estimat Average Glucose Hemoglobin A1c Lactate (0.4-2.0) mmol/L Calcium (8.5-10.1) mg/dl POC Ioniz Calcium Yaritza (1.12-1.32) mmol/l Phosphorus (2.5-4.9) mg/dl Magnesium (1.8-2.4) mg/dl Total Bilirubin (0.2-1) mg/dl AST (15-37) U/L ALT (12-78) U/L Alkaline Phosphatase (45-117) U/L Total Protein (6.4-8.2) gm/dl Albumin (3.4-5.0) gm/dl Globulin (2.5-4.0) gm/dl Albumin/Globulin Ratio (0.9-2) Beta-Hydroxybutyric Acd (0.2-2.81) mg/dl Procalcitonin Urine Color Urine Appearance (Clear) Urine pH (4.5-7.5) Ur Specific [place] (1.000-1.030) Urine Protein (Negative) Urine Glucose (UA) (Negative) Urine Ketones (Negative) Urine Blood (Negative) Urine Nitrite (Negative) Urine Bilirubin (Negative) Urine Urobilinogen (Negative) Ur Leukocyte Esterase (Negative) Urine WBC (Auto) (0-5) /hpf Urine RBC (Auto) (0-4) /hpf U Hyaline Cast (Auto) (0-5) /lpf U Epithel Cells (Auto) (0-5) /lpf Urine Bacteria (Auto) (Negative) Nasal Screen MRSA (PCR) Hepatitis C Ab Screen Medications Administered Current Inpatient Medications Dextrose (Dextrose 50%) 25 - 50 ml IV UD PRN; Protocol PRN Reason: Hypoglycemia Protocol Stop: 07/18/19 12:58 Glucagon (Glucagen) 1 mg SQ UD PRN; Protocol PRN Reason: Hypoglycemia Protocol Stop: 07/18/19 12:58 Glucose (Glucose 40%) 15 - 30 gm PO UD PRN; Protocol PRN Reason: Hypoglycemia Protocol Stop: 07/18/19 12:42 Glucose (Glucose 40%) 15 - 30 gm PO UD PRN; Protocol PRN Reason: Hypoglycemia Protocol Stop: 07/18/19 12:58 Glucose (Dex4 Glucose) 4 - 8 tabs PO UD PRN; Protocol PRN Reason: Hypoglycemia Protocol Stop: 07/18/19 12:58 Sodium Chloride (Nss 1000ml) 1,000 mls @ 200 mls/hr IV .Q5H ONE Stop: 06/18/19 18:13 Last Admin: 06/18/19 14:10 Dose: 200 mls/hr Documented by: Insulin Human Regular 250 (units/ Sodium Chloride) 250 mls @ 12.8 mls/hr IV .[id number] NELI; Protocol Stop: 07/18/19 12:59 Last Titration: 06/18/19 16:50 Dose: 12.8 units/hr, 12.8 mls/hr Documented by: Insulin Aspart (Novolog Flexpen) 0 units SC ACHS NELI Stop: 07/18/19 16:29 Miscellaneous (Carbohydrates For Hypoglycemia) 15 - 30 gm PO UD PRN PRN Reason: Hypoglycemia Protocol Stop: 07/18/19 12:58 Miscellaneous (Icu Protocol For Hyperglycemia) 1 ea N/A PRN PRN; Protocol PRN Reason: Hyperglycemia Protocol Stop: 06/20/19 16:36 Miscellaneous (Insulin Protocol Dka Goal Range) 1 ea N/A ONE ONE Stop: 06/18/19 17:04 Miscellaneous Information (Consult Glycemic Management Pharmacy) 1 ea N/A NOW STA Stop: 06/18/19 17:04 Resident Activity Tracking Resident Involvement: Resident Care Provided Care Provided: Adult Hospital Medicine (ICU ) (1) Diabetes Diabetes mellitus complication status: without complication Diabetes mellitus buttermaker helper insulin use: without fpc use Diabetes mellitus type: type 2 Qualified Code(s): E11.9 - Type 2 diabetes mellitus without complications
[2019-06-18] MEDS ORDERED: PHARMACY GLYCEMIC MGMT CONSULT PRN (17:47)
[2019-06-18] MEDS: INSULIN ASPART 100 UNITS/ML 3 ML PEN SC SCH ×2 (17:54→22:16)
[2019-06-18 17:59] LABS: BUN Creatinine Ratio 25.3 (10-20); Calcium 9.4 mg/dl (8.5-10.1); Creatinine Clr Calc Pharmacy 57.6 ml/min; Est GFR (African American) 65.9; Est GFR (Non-African American) 56.8; Magnesium 2.1 mg/dl (1.8-2.4); Phosphorus 4.5 mg/dl (2.5-4.9)
[2019-06-18] MEDS ORDERED: HydrALAZINE HCL 20 MG/ML VIAL IV PRN (18:22)
[2019-06-18 18:25] LABS: Beta-Hydroxybutyrate 68.68 mg/dl (0.2-2.81)
[2019-06-18 18:38] LABS: Troponin I < 0.015 ng/ml (0-0.045)
[2019-06-18] MEDS ORDERED: NORMOSOL-R 1,000 ML IV ONE (18:45)
[2019-06-18 19:12] LABS: Lipase 2311 U/L (73-393)
[2019-06-18] MEDS ORDERED: D5W AND 1/2NSS 1,000 ML IV SCH (19:30)
--- NOTE | 2019-06-18 19:44 | Billing Data ---
Coding Level of Care Code 56237 Initial Inpt Care Lvl 3
[2019-06-18] MEDS ORDERED: NORMOSOL-R 1,000 ML IV SCH (19:45)
[2019-06-18] MEDS ORDERED: D5W NORMOSOL-R 1,000 ML IV SCH (19:45)
[2019-06-18] MEDS: ENOXAPARIN INJ 40 MG/0.4 ML SYR SQ SCH (19:55)
[2019-06-18] MEDS ORDERED: INSULIN GLARGINE SOLOSTAR 100 UNITS/ML 3 ML PEN SC STA (20:03)
--- NOTE | 2019-06-18 20:23 | Pharmacy Report ---
Glycemic Control Consultation - Date of Service June 18, 2019 - Scope Scope: Glycemic Pharmacist consulted by Dr Torres on 06/18/19 for glycemic control and to write orders per [facility] inpatient glycemic control protocol - Objective Weight: 70.9 kg Accuchecks BSG (last 24hrs): 06/18/19 06/18/19 06/18/19 12:50 12:55 14:41 Glucose 668 H* POC Glucose 506 H* POC Glucose (other) 649 H* 06/18/19 06/18/19 06/18/19 15:26 16:47 17:25 Glucose 342 H* POC Glucose 375 H* POC Glucose (other) 449 H* 06/18/19 06/18/19 17:49 18:53 Glucose POC Glucose 314 H* 221 H POC Glucose (other) Laboratory Data (last 24hrs): 06/18/19 06/18/19 06/18/19 12:50 15:41 17:25 Potassium 6.3 H* 5.0 D 5.0 Carbon Dioxide 9 L* 12 L Anion Gap 27.0 H 16.0 H Creatinine 1.91 H 1.37 D Est Cr Clr Drug Dosing 41.3 57.6 Beta-Hydroxybutyric Acd 68.68 H - Recent Pertinent Medications Outpatient Anti-diabetic Regimen: * Metformin, Trulicity QW, Glimepiride - Assessment & Plan Assessment & Plan: ASSESSMENT: * Pt is a 59yo M type II diabetic p/w labs consistent with DKA. Bicarbonate initially 9 --- > now 12. AG down to 16, initially 27. BSGs have improved nicely: 600s --> 400s --> now 200s. D5 1/2Nss IVFs ordered. Pt is NPO. PLAN FOR INPATIENT GLYCEMIC CONTROL: * Starting IV insulin infusion per severe stress protocol * Goal Range 150 - 250 mg/dl * In the critical care setting, continuous IV insulin infusion has been shown to be the best method for achieving glycemic targets. * Will provide lantus 20u X1 tonight * Please note that the plan above was derived based on current level of insulin resistance and hospital stress. These recommendations are appropriate for inpatient admission only. Plan of care upon discharge will need to be reassessed to avoid potential outpatient hypo/hyperglycemia. Thank you.
[2019-06-18 21:50] LABS: Calcium 9.3 mg/dl (8.5-10.1); Creatinine Clr Calc Pharmacy 73.7 ml/min; Est GFR (African American) 88.8; Est GFR (Non-African American) 76.7; Potassium 4.3 mmol/L (3.5-5.1)
[2019-06-18 21:56] LABS: Phosphorus 2.3 mg/dl (2.5-4.9)
[2019-06-18] MEDS: D5W AND 1/2NSS + 20MEQ KCL 20 MEQ/1,000 ML BAG IV SCH (22:28)
[2019-06-19] MEDS ORDERED: ACETAMINOPHEN 325 MG TAB PO PRN
[2019-06-19 01:52] LABS: BUN Creatinine Ratio 19.6 (10-20); Calcium 8.3 mg/dl (8.5-10.1); Creatinine Clr Calc Pharmacy 79.6 ml/min; Est GFR (African American) 97.6; Est GFR (Non-African American) 84.2; Phosphorus 2.2 mg/dl (2.5-4.9); Potassium 3.9 mmol/L (3.5-5.1)
[2019-06-19] MEDS ORDERED: PHARMACY GLYCEMIC MGMT CONSULT STA (02:01)
[2019-06-19] MEDS ORDERED: GLUCOSE 40% GEL 15 GM TUBE PO PRN (02:01)
[2019-06-19] MEDS ORDERED: GLUCOSE 10 TABS/TUBE PO PRN (02:01)
[2019-06-19] MEDS ORDERED: GLUCAGON FOR INJ 1 MG VIAL SQ PRN (02:01)
[2019-06-19] MEDS ORDERED: CARBOHYDRATES FOR HYPOGLYCEMIA PO PRN (02:01)
[2019-06-19] MEDS ORDERED: DEXTROSE 50% 50 ML SYRINGE IV PRN (02:01)
[2019-06-19] MEDS ORDERED: INSULIN GLARGINE SOLOSTAR 100 UNITS/ML 3 ML PEN SC ONE ×2 (02:05→02:15)
[2019-06-19] MEDS ORDERED: NORMOSOL-R 1,000 ML IV SCH (03:30)
[2019-06-19 06:24] LABS: BUN Creatinine Ratio 19.1 (10-20); Creatinine Clr Calc Pharmacy 80.5 ml/min; Est GFR (African American) 98.8; Est GFR (Non-African American) 85.2; Phosphorus 2.7 mg/dl (2.5-4.9); Potassium 4.3 mmol/L (3.5-5.1)
[2019-06-19 06:29] LABS: Estimated Average Glucose 338 mg/dl; Hemoglobin A1C 13.4 % (4.5-5.6)
[2019-06-19] MEDS: INSULIN ASPART 100 UNITS/ML 3 ML PEN SC SCH ×4 (06:49→20:33)
[2019-06-19] MEDS: D5W AND 1/2NSS + 20MEQ KCL 20 MEQ/1,000 ML BAG IV SCH (07:15)
--- NOTE | 2019-06-19 09:00 | Critical Care Progress Note ---
Date of Service June 19, 2019 Assessment & Plan (1) Admitted to intensive care unit: Reason Critically Ill: 59-year-old male here for DKA. Past medical history significant for diabetes type 2 with prior episodes of hhnk and dka , hypertension, hyperlipidemia Neuro: -CAM ICU: NEGATIVE -Alert and oriented x4 no acute concerns Cardiac: Chest pain likely musculoskeletal: Patient reports shortness of breath chest pain earlier today likely musculoskeletal in origin. EKG on arrival was unchanged from prior EKGs and no concern for ACS at present. -Troponin negative Respiratory: Shortness of breath: Patient reported shortness of breath earlier today in addition to weakness. Both the symptoms are likely secondary to his underlying hyperglycemia. Reported improvement in symptoms status post resolution of blood sugar. -PRN O2 -Monitor for signs and symptoms of acute decompensation -CXR negative GI: -NPO, advance to clears later today Pancreatitis Patient reports epigastric tenderness etiology is yet to be determined differential includes secondary to recurrent hypoglycemic episode versus pancreatitis. On physical exam he did have guarding and pain was elucidated upon palpating the right upper quadrant and left upper quadrant. Does not appear to be a surgical abdomen at present. Patient also endorsed nausea earlier today likely secondary to hyperglycemia. -zofran prn nausea -Ct abd pelvis negative -Lipase 2311 -Monitor patient's symptoms, assuming he continues to improve can transition to clear liquid diet later today and then advance diet as tolerated. -Patient denies drinking, ordered a lipid panel for later this afternoon. -Given patient's recent bout of DKA and pancreatitis, hemoglobin A1c of 13 patient needs to have aconversation with his primary care physician about his current medication regimen. Trulicity may have caused his current pancreatitis RENAL/LYTES: Hyperkalemia: Patient presented to the emergency department the potassium of 6.3 now 5.0 status post fluid resuscitation. -Electrolytes have normalized DC every 4 hours BMP and Tx to daily OMARI: Patient presented to the emergency department elevated creatinine of 1.9. He is currently status post fluid resuscitation and creatinine is down trended to 1.37. I expect the creatinine to continue to improve. Per review of her records it appears that his baseline creatinine is somewhere around 1.25. -Continue IVF -Cr:1.91->1.37->1.07->.98 : - No concerns at this time. ENDO: DKA: See subjective. Patient presented to the emergency department with weakness, shortness of breath, increased urination. EMS reported he was profoundly hyperglycemic in the field in fact his blood sugar was so high the machine could not process it. Upon arrival to the emergency department his blood glucose was found to be 668 with a gap of 27 he was placed on insulin drip and it has been downtrending since then. Beta hydroxybutyrate on admission was 68.86 lactate was 2.9 trended down to 1.7. Gap closed yesterday evening patient was given 40 units of glargine and cover with insulin drip for 2 hours. This was prior to the identification of the patient's underlying pancreatitis. Unfortunately given his pancreatitis will of chemo n.p.o. for now, will continue to check his sugars and provide dextrose as needed. May advance to clears later today and then diet as tolerated -bmp daily -glycemic cx placed -a1c 13.4 HEME: - Stable H&H. ID: -No concerns for infection at this point, procal negative, -Monitor fever curve. INTEGUMENTARY: -no concerns at present LINES/IV ACCESS: -PIVs intact. DVT PROPHYLAXIS: -lovenox 40 qday Dispo:stable for downgrade Thank you for allowing us to be part of this patient's care. Please refer to Dr. Garcia 's documentation for any further recommendations. Supervising Physician Co-Signing Physician Notes Dr. Torres was the resident-physician during care of patient. I separately evaluated patient for turcios portions of the history and the exam. I was present during the critical portion of medical decision making, and I discussed the case with the resident. I generally agree with the findings and plan except for any additions/exceptions noted. Patient's DKA has resolved and was likely precipitated by pancreatitis. He did not appear infected at this present time and we are holding on antibiotics. He is off his insulin drip and underwent crossover with long-acting insulin. Pharmacy is helping us manage his diabetes. We can start a clear liquid diet at this time and advance as tolerated. We are restarting his home lisinopril as well as his renal function has improved substantially. He is mildly hypertensive here. Patient is safe to be transferred to the floor without telemetry. Subjective Patient sitting upright in bed today no acute distress. Ports no acute events overnight. Reports feeling significantly better from yesterday. Still endorsing epigastric pain, however significantly improved from yesterday. The patient reports he is hungry right now, has been voiding on his own, stooling, slept her well overnight. No acute concerns at present, all questions answered. Plan to transfer the floor later today Physical Exam Physical Exam: General: Elderly gentleman lying in bed in no acute distress HEENT: Normocephalic atraumatic Neck: Normal visual inspection, trachea midline Cardiac: regular rate regular rhythm, normal S1, normal S2, did not appreciate any significant murmurs rubs or gallops, negative calf tenderness, negative pedal edema Respiratory: Clear to auscultation bilaterally without significant wheezes, where rales, rhonchi. Symmetrical chest rise, no increased work of breathing GI: Soft, mildly distended, tender to palpation in the upper right quadrant & upper left quadrant although improved from yesterday no longer guarding MSK: Moves all extremities although weak Skin: No acute concerns are present or obvious deformities Neuro: Alert and oriented x4 Psych: Calm, cooperative Results & Data Vital Signs (Past 12 Hours) Vital Signs Temp Pulse Resp BP Pulse Ox 06/19/19 05:49 36.5 C 06/19/19 05:43 82 16 149/75 H 99 06/19/19 04:43 75 11 L 126/68 98 06/19/19 04:10 72 5 L 122/69 98 06/19/19 03:42 82 13 103/58 L 99 06/19/19 02:42 73 14 112/55 L 97 06/19/19 02:30 77 4 L 97 06/19/19 02:15 76 4 L 97 06/19/19 02:00 76 16 98 06/19/19 01:45 73 12 97 06/19/19 01:43 79 11 L 119/69 98 06/19/19 01:30 75 12 98 06/19/19 01:15 83 12 97 06/19/19 01:00 79 15 98 06/19/19 00:45 84 13 97 06/19/19 00:42 81 13 140/66 97 06/19/19 00:30 82 12 98 06/18/19 23:42 88 26 H 130/76 97 06/18/19 22:43 90 4 L 115/54 L 98 06/18/19 21:42 89 14 140/71 98 06/18/19 21:15 96 H 14 98 Laboratory Results 06/19/19 06/19/19 06/19/19 Range/Units 09:51 09:51 09:41 WBC (4.8-10.8) K/uL RBC (4.7-6.1) M/uL Hgb (14.0-18.0) g/dL POC Hgb (14.0-18.0) g/dl Hct (42-52) % POC Hct (42-52) % MCV (80-100) fL MCH (25-34) pg MCHC (32-36) g/dL RDW Std Deviation (36.4-46.3) fL RDW Coeff of Mariah (11.5-14.5) % Plt Count (130-400) K/uL MPV (7.4-10.4) fL Immature Gran % (Auto) % Neut % (Auto) % Lymph % (Auto) % Williams % (Auto) % Eos % (Auto) % Baso % (Auto) % Immature Gran # (Auto) (0.00-0.02) K/uL Neut # (Auto) (1.4-6.5) K/uL Lymph # (Auto) (1.2-3.4) K/uL Williams # (Auto) (0.11-0.59) K/uL Eos # (Auto) (0-0.5) K/uL Baso # (Auto) (0-0.2) K/uL ABG pH (7.35-7.45) ABG pCO2 (35-46) mmHg ABG pO2 (80-95) mm/Hg ABG HCO3 (19-24) mmol/L ABG O2 Saturation (90-95) % ABG Base Excess (-9-1.8) mEq/L Ronni Test (Pos) VBG pH 7.33 L (7.36-7.41) Barometric Pressure mm/Hg Oxygen Given POC Sodium (135-144) mEq/L Sodium Pending (136-145) mmol/L POC Potassium (3.3-5.0) mEq/L Potassium Pending (3.5-5.1) mmol/L POC Chloride (101-112) mEq/L Chloride Pending (98-107) mmol/L Carbon Dioxide Pending (21-32) mmol/L POC Total CO2 (24-31) mEq/l Anion Gap Pending (3-11) POC Anion Gap (16-25) mmol/L POC BUN (7-18) mg/dl BUN Pending (7-18) mg/dl Creatinine Pending (0.6-1.4) mg/dl POC Creatinine (0.6-1.3) mg/dl Est Cr Clr Drug Dosing Pending ml/min Est GFR ( Amer) Pending Est GFR (Non-Af Amer) Pending BUN/Creatinine Ratio Pending (10-20) Glucose Pending (70-99) mg/dl POC Glucose 232 H (70-99) POC Glucose (other) (70-99) mg/dl Estimat Average Glucose mg/dl Hemoglobin A1c (4.5-5.6) % Lactate (0.4-2.0) mmol/L Calcium Pending (8.5-10.1) mg/dl POC Ioniz Calcium Yaritza (1.12-1.32) mmol/l Phosphorus Pending (2.5-4.9) mg/dl Magnesium Pending (1.8-2.4) mg/dl Total Bilirubin (0.2-1) mg/dl AST (15-37) U/L ALT (12-78) U/L Alkaline Phosphatase (45-117) U/L Troponin I (0-0.045) ng/ml Total Protein (6.4-8.2) gm/dl Albumin (3.4-5.0) gm/dl Globulin (2.5-4.0) gm/dl Albumin/Globulin Ratio (0.9-2) Lipase Beta-Hydroxybutyric Acd (0.2-2.81) mg/dl Procalcitonin (0-0.5) ng/ml Urine Color Urine Appearance (Clear) Urine pH (4.5-7.5) Ur Specific Hunter (1.000-1.030) Urine Protein (Negative) Urine Glucose (UA) (Negative) Urine Ketones (Negative) Urine Blood (Negative) Urine Nitrite (Negative) Urine Bilirubin (Negative) Urine Urobilinogen (Negative) Ur Leukocyte Esterase (Negative) Urine WBC (Auto) (0-5) /hpf Urine RBC (Auto) (0-4) /hpf U Hyaline Cast (Auto) (0-5) /lpf U Epithel Cells (Auto) (0-5) /lpf Urine Bacteria (Auto) (Negative) Nasal Screen MRSA (PCR) (Negative) Hepatitis C Ab Screen (Neg) 06/19/19 06/19/19 06/19/19 Range/Units 06:38 05:32 05:32 WBC (4.8-10.8) K/uL RBC (4.7-6.1) M/uL Hgb (14.0-18.0) g/dL POC Hgb (14.0-18.0) g/dl Hct (42-52) % POC Hct (42-52) % MCV (80-100) fL MCH (25-34) pg MCHC (32-36) g/dL RDW Std Deviation (36.4-46.3) fL RDW Coeff of Mariah (11.5-14.5) % Plt Count (130-400) K/uL MPV (7.4-10.4) fL Immature Gran % (Auto) % Neut % (Auto) % Lymph % (Auto) % Williams % (Auto) % Eos % (Auto) % Baso % (Auto) % Immature Gran # (Auto) (0.00-0.02) K/uL Neut # (Auto) (1.4-6.5) K/uL Lymph # (Auto) (1.2-3.4) K/uL Williams # (Auto) (0.11-0.59) K/uL Eos # (Auto) (0-0.5) K/uL Baso # (Auto) (0-0.2) K/uL ABG pH (7.35-7.45) ABG pCO2 (35-46) mmHg ABG pO2 (80-95) mm/Hg ABG HCO3 (19-24) mmol/L ABG O2 Saturation (90-95) % ABG Base Excess (-9-1.8) mEq/L Ronni Test (Pos) VBG pH 7.31 L (7.36-7.41) Barometric Pressure mm/Hg Oxygen Given POC Sodium (135-144) mEq/L Sodium 143 (136-145) mmol/L POC Potassium (3.3-5.0) mEq/L Potassium 4.3 (3.5-5.1) mmol/L POC Chloride (101-112) mEq/L Chloride 116 H (98-107) mmol/L Carbon Dioxide 21 (21-32) mmol/L POC Total CO2 (24-31) mEq/l Anion Gap 7.0 (3-11) POC Anion Gap (16-25) mmol/L POC BUN (7-18) mg/dl BUN 19 H (7-18) mg/dl Creatinine 0.98 (0.6-1.4) mg/dl POC Creatinine (0.6-1.3) mg/dl Est Cr Clr Drug Dosing 80.5 ml/min Est GFR ( Amer) 98.8 Est GFR (Non-Af Amer) 85.2 BUN/Creatinine Ratio 19.1 (10-20) Glucose 133 H (70-99) mg/dl POC Glucose 151 H (70-99) POC Glucose (other) (70-99) mg/dl Estimat Average Glucose mg/dl Hemoglobin A1c (4.5-5.6) % Lactate (0.4-2.0) mmol/L Calcium 9.0 (8.5-10.1) mg/dl POC Ioniz Calcium Yaritza (1.12-1.32) mmol/l Phosphorus 2.7 (2.5-4.9) mg/dl Magnesium 2.0 (1.8-2.4) mg/dl Total Bilirubin (0.2-1) mg/dl AST (15-37) U/L ALT (12-78) U/L Alkaline Phosphatase (45-117) U/L Troponin I (0-0.045) ng/ml Total Protein (6.4-8.2) gm/dl Albumin (3.4-5.0) gm/dl Globulin (2.5-4.0) gm/dl Albumin/Globulin Ratio (0.9-2) Lipase Beta-Hydroxybutyric Acd (0.2-2.81) mg/dl Procalcitonin (0-0.5) ng/ml Urine Color Urine Appearance (Clear) Urine pH (4.5-7.5) Ur Specific Hunter (1.000-1.030) Urine Protein (Negative) Urine Glucose (UA) (Negative) Urine Ketones (Negative) Urine Blood (Negative) Urine Nitrite (Negative) Urine Bilirubin (Negative) Urine Urobilinogen (Negative) Ur Leukocyte Esterase (Negative) Urine WBC (Auto) (0-5) /hpf Urine RBC (Auto) (0-4) /hpf U Hyaline Cast (Auto) (0-5) /lpf U Epithel Cells (Auto) (0-5) /lpf Urine Bacteria (Auto) (Negative) Nasal Screen MRSA (PCR) (Negative) Hepatitis C Ab Screen (Neg) 06/19/19 06/19/19 06/19/19 Range/Units 04:38 03:44 03:04 WBC (4.8-10.8) K/uL RBC (4.7-6.1) M/uL Hgb (14.0-18.0) g/dL POC Hgb (14.0-18.0) g/dl Hct (42-52) % POC Hct (42-52) % MCV (80-100) fL MCH (25-34) pg MCHC (32-36) g/dL RDW Std Deviation (36.4-46.3) fL RDW Coeff of Mariah (11.5-14.5) % Plt Count (130-400) K/uL MPV (7.4-10.4) fL Immature Gran % (Auto) % Neut % (Auto) % Lymph % (Auto) % Williams % (Auto) % Eos % (Auto) % Baso % (Auto) % Immature Gran # (Auto) (0.00-0.02) K/uL Neut # (Auto) (1.4-6.5) K/uL Lymph # (Auto) (1.2-3.4) K/uL Williams # (Auto) (0.11-0.59) K/uL Eos # (Auto) (0-0.5) K/uL Baso # (Auto) (0-0.2) K/uL ABG pH (7.35-7.45) ABG pCO2 (35-46) mmHg ABG pO2 (80-95) mm/Hg ABG HCO3 (19-24) mmol/L ABG O2 Saturation (90-95) % ABG Base Excess (-9-1.8) mEq/L Ronni Test (Pos) VBG pH (7.36-7.41) Barometric Pressure mm/Hg Oxygen Given POC Sodium (135-144) mEq/L Sodium (136-145) mmol/L POC Potassium (3.3-5.0) mEq/L Potassium (3.5-5.1) mmol/L POC Chloride (101-112) mEq/L Chloride (98-107) mmol/L Carbon Dioxide (21-32) mmol/L POC Total CO2 (24-31) mEq/l Anion Gap (3-11) POC Anion Gap (16-25) mmol/L POC BUN (7-18) mg/dl BUN (7-18) mg/dl Creatinine (0.6-1.4) mg/dl POC Creatinine (0.6-1.3) mg/dl Est Cr Clr Drug Dosing ml/min Est GFR ( Amer) Est GFR (Non-Af Amer) BUN/Creatinine Ratio (10-20) Glucose (70-99) mg/dl POC Glucose 133 H 106 H 125 H (70-99) POC Glucose (other) (70-99) mg/dl Estimat Average Glucose mg/dl Hemoglobin A1c (4.5-5.6) % Lactate (0.4-2.0) mmol/L Calcium (8.5-10.1) mg/dl POC Ioniz Calcium Yaritza (1.12-1.32) mmol/l Phosphorus (2.5-4.9) mg/dl Magnesium (1.8-2.4) mg/dl Total Bilirubin (0.2-1) mg/dl AST (15-37) U/L ALT (12-78) U/L Alkaline Phosphatase (45-117) U/L Troponin I (0-0.045) ng/ml Total Protein (6.4-8.2) gm/dl Albumin (3.4-5.0) gm/dl Globulin (2.5-4.0) gm/dl Albumin/Globulin Ratio (0.9-2) Lipase Beta-Hydroxybutyric Acd (0.2-2.81) mg/dl Procalcitonin (0-0.5) ng/ml Urine Color Urine Appearance (Clear) Urine pH (4.5-7.5) Ur Specific Hunter (1.000-1.030) Urine Protein (Negative) Urine Glucose (UA) (Negative) Urine Ketones (Negative) Urine Blood (Negative) Urine Nitrite (Negative) Urine Bilirubin (Negative) Urine Urobilinogen (Negative) Ur Leukocyte Esterase (Negative) Urine WBC (Auto) (0-5) /hpf Urine RBC (Auto) (0-4) /hpf U Hyaline Cast (Auto) (0-5) /lpf U Epithel Cells (Auto) (0-5) /lpf Urine Bacteria (Auto) (Negative) Nasal Screen MRSA (PCR) (Negative) Hepatitis C Ab Screen (Neg) 06/19/19 06/19/19 06/19/19 Range/Units 01:58 01:26 01:26 WBC (4.8-10.8) K/uL RBC (4.7-6.1) M/uL Hgb (14.0-18.0) g/dL POC Hgb (14.0-18.0) g/dl Hct (42-52) % POC Hct (42-52) % MCV (80-100) fL MCH (25-34) pg MCHC (32-36) g/dL RDW Std Deviation (36.4-46.3) fL RDW Coeff of Mariah (11.5-14.5) % Plt Count (130-400) K/uL MPV (7.4-10.4) fL Immature Gran % (Auto) % Neut % (Auto) % Lymph % (Auto) % Williams % (Auto) % Eos % (Auto) % Baso % (Auto) % Immature Gran # (Auto) (0.00-0.02) K/uL Neut # (Auto) (1.4-6.5) K/uL Lymph # (Auto) (1.2-3.4) K/uL Williams # (Auto) (0.11-0.59) K/uL Eos # (Auto) (0-0.5) K/uL Baso # (Auto) (0-0.2) K/uL ABG pH (7.35-7.45) ABG pCO2 (35-46) mmHg ABG pO2 (80-95) mm/Hg ABG HCO3 (19-24) mmol/L ABG O2 Saturation (90-95) % ABG Base Excess (-9-1.8) mEq/L Ronni Test (Pos) VBG pH 7.35 L (7.36-7.41) Barometric Pressure mm/Hg Oxygen Given POC Sodium (135-144) mEq/L Sodium 142 (136-145) mmol/L POC Potassium (3.3-5.0) mEq/L Potassium 3.9 (3.5-5.1) mmol/L POC Chloride (101-112) mEq/L Chloride 116 H (98-107) mmol/L Carbon Dioxide 23 (21-32) mmol/L POC Total CO2 (24-31) mEq/l Anion Gap 3.0 (3-11) POC Anion Gap (16-25) mmol/L POC BUN (7-18) mg/dl BUN 19 H (7-18) mg/dl Creatinine 0.99 (0.6-1.4) mg/dl POC Creatinine (0.6-1.3) mg/dl Est Cr Clr Drug Dosing 79.6 ml/min Est GFR ( Amer) 97.6 Est GFR (Non-Af Amer) 84.2 BUN/Creatinine Ratio 19.6 (10-20) Glucose 158 H (70-99) mg/dl POC Glucose 140 H (70-99) POC Glucose (other) (70-99) mg/dl Estimat Average Glucose mg/dl Hemoglobin A1c (4.5-5.6) % Lactate (0.4-2.0) mmol/L Calcium 8.3 L (8.5-10.1) mg/dl POC Ioniz Calcium Yaritza (1.12-1.32) mmol/l Phosphorus 2.2 L (2.5-4.9) mg/dl Magnesium 2.0 (1.8-2.4) mg/dl Total Bilirubin (0.2-1) mg/dl AST (15-37) U/L ALT (12-78) U/L Alkaline Phosphatase (45-117) U/L Troponin I (0-0.045) ng/ml Total Protein (6.4-8.2) gm/dl Albumin (3.4-5.0) gm/dl Globulin (2.5-4.0) gm/dl Albumin/Globulin Ratio (0.9-2) Lipase Beta-Hydroxybutyric Acd (0.2-2.81) mg/dl Procalcitonin (0-0.5) ng/ml Urine Color Urine Appearance (Clear) Urine pH (4.5-7.5) Ur Specific Hunter (1.000-1.030) Urine Protein (Negative) Urine Glucose (UA) (Negative) Urine Ketones (Negative) Urine Blood (Negative) Urine Nitrite (Negative) Urine Bilirubin (Negative) Urine Urobilinogen (Negative) Ur Leukocyte Esterase (Negative) Urine WBC (Auto) (0-5) /hpf Urine RBC (Auto) (0-4) /hpf U Hyaline Cast (Auto) (0-5) /lpf U Epithel Cells (Auto) (0-5) /lpf Urine Bacteria (Auto) (Negative) Nasal Screen MRSA (PCR) (Negative) Hepatitis C Ab Screen (Neg) 06/18/19 06/18/19 06/18/19 Range/Units 23:48 21:50 21:24 WBC (4.8-10.8) K/uL RBC (4.7-6.1) M/uL Hgb (14.0-18.0) g/dL POC Hgb (14.0-18.0) g/dl Hct (42-52) % POC Hct (42-52) % MCV (80-100) fL MCH (25-34) pg MCHC (32-36) g/dL RDW Std Deviation (36.4-46.3) fL RDW Coeff of Mariah (11.5-14.5) % Plt Count (130-400) K/uL MPV (7.4-10.4) fL Immature Gran % (Auto) % Neut % (Auto) % Lymph % (Auto) % Williams % (Auto) % Eos % (Auto) % Baso % (Auto) % Immature Gran # (Auto) (0.00-0.02) K/uL Neut # (Auto) (1.4-6.5) K/uL Lymph # (Auto) (1.2-3.4) K/uL Williams # (Auto) (0.11-0.59) K/uL Eos # (Auto) (0-0.5) K/uL Baso # (Auto) (0-0.2) K/uL ABG pH (7.35-7.45) ABG pCO2 (35-46) mmHg ABG pO2 (80-95) mm/Hg ABG HCO3 (19-24) mmol/L ABG O2 Saturation (90-95) % ABG Base Excess (-9-1.8) mEq/L Ronni Test (Pos) VBG pH (7.36-7.41) Barometric Pressure mm/Hg Oxygen Given POC Sodium (135-144) mEq/L Sodium (136-145) mmol/L POC Potassium (3.3-5.0) mEq/L Potassium (3.5-5.1) mmol/L POC Chloride (101-112) mEq/L Chloride (98-107) mmol/L Carbon Dioxide (21-32) mmol/L POC Total CO2 (24-31) mEq/l Anion Gap (3-11) POC Anion Gap (16-25) mmol/L POC BUN (7-18) mg/dl BUN (7-18) mg/dl Creatinine (0.6-1.4) mg/dl POC Creatinine (0.6-1.3) mg/dl Est Cr Clr Drug Dosing ml/min Est GFR ( Amer) Est GFR (Non-Af Amer) BUN/Creatinine Ratio (10-20) Glucose (70-99) mg/dl POC Glucose 209 H 222 H (70-99) POC Glucose (other) (70-99) mg/dl Estimat Average Glucose mg/dl Hemoglobin A1c (4.5-5.6) % Lactate 1.7 (0.4-2.0) mmol/L Calcium (8.5-10.1) mg/dl POC Ioniz Calcium Yaritza (1.12-1.32) mmol/l Phosphorus (2.5-4.9) mg/dl Magnesium (1.8-2.4) mg/dl Total Bilirubin (0.2-1) mg/dl AST (15-37) U/L ALT (12-78) U/L Alkaline Phosphatase (45-117) U/L Troponin I (0-0.045) ng/ml Total Protein (6.4-8.2) gm/dl Albumin (3.4-5.0) gm/dl Globulin (2.5-4.0) gm/dl Albumin/Globulin Ratio (0.9-2) Lipase Beta-Hydroxybutyric Acd (0.2-2.81) mg/dl Procalcitonin (0-0.5) ng/ml Urine Color Urine Appearance (Clear) Urine pH (4.5-7.5) Ur Specific Hunter (1.000-1.030) Urine Protein (Negative) Urine Glucose (UA) (Negative) Urine Ketones (Negative) Urine Blood (Negative) Urine Nitrite (Negative) Urine Bilirubin (Negative) Urine Urobilinogen (Negative) Ur Leukocyte Esterase (Negative) Urine WBC (Auto) (0-5) /hpf Urine RBC (Auto) (0-4) /hpf U Hyaline Cast (Auto) (0-5) /lpf U Epithel Cells (Auto) (0-5) /lpf Urine Bacteria (Auto) (Negative) Nasal Screen MRSA (PCR) (Negative) Hepatitis C Ab Screen (Neg) 06/18/19 06/18/19 06/18/19 Range/Units 21:24 21:24 20:53 WBC (4.8-10.8) K/uL RBC (4.7-6.1) M/uL Hgb (14.0-18.0) g/dL POC Hgb (14.0-18.0) g/dl Hct (42-52) % POC Hct (42-52) % MCV (80-100) fL MCH (25-34) pg MCHC (32-36) g/dL RDW Std Deviation (36.4-46.3) fL RDW Coeff of Mariah (11.5-14.5) % Plt Count (130-400) K/uL MPV (7.4-10.4) fL Immature Gran % (Auto) % Neut % (Auto) % Lymph % (Auto) % Williams % (Auto) % Eos % (Auto) % Baso % (Auto) % Immature Gran # (Auto) (0.00-0.02) K/uL Neut # (Auto) (1.4-6.5) K/uL Lymph # (Auto) (1.2-3.4) K/uL Williams # (Auto) (0.11-0.59) K/uL Eos # (Auto) (0-0.5) K/uL Baso # (Auto) (0-0.2) K/uL ABG pH (7.35-7.45) ABG pCO2 (35-46) mmHg ABG pO2 (80-95) mm/Hg ABG HCO3 (19-24) mmol/L ABG O2 Saturation (90-95) % ABG Base Excess (-9-1.8) mEq/L Ronni Test (Pos) VBG pH 7.30 L (7.36-7.41) Barometric Pressure mm/Hg Oxygen Given POC Sodium (135-144) mEq/L Sodium 141 (136-145) mmol/L POC Potassium (3.3-5.0) mEq/L Potassium 4.3 (3.5-5.1) mmol/L POC Chloride (101-112) mEq/L Chloride 113 H (98-107) mmol/L Carbon Dioxide 17 L (21-32) mmol/L POC Total CO2 (24-31) mEq/l Anion Gap 11.0 (3-11) POC Anion Gap (16-25) mmol/L POC BUN (7-18) mg/dl BUN 27 H (7-18) mg/dl Creatinine 1.07 (0.6-1.4) mg/dl POC Creatinine (0.6-1.3) mg/dl Est Cr Clr Drug Dosing 73.7 ml/min Est GFR ( Amer) 88.8 Est GFR (Non-Af Amer) 76.7 BUN/Creatinine Ratio 25.0 H (10-20) Glucose 231 H (70-99) mg/dl POC Glucose 224 H (70-99) POC Glucose (other) (70-99) mg/dl Estimat Average Glucose mg/dl Hemoglobin A1c (4.5-5.6) % Lactate (0.4-2.0) mmol/L Calcium 9.3 (8.5-10.1) mg/dl POC Ioniz Calcium Yaritza (1.12-1.32) mmol/l Phosphorus 2.3 L D (2.5-4.9) mg/dl Magnesium 2.0 (1.8-2.4) mg/dl Total Bilirubin (0.2-1) mg/dl AST (15-37) U/L ALT (12-78) U/L Alkaline Phosphatase (45-117) U/L Troponin I (0-0.045) ng/ml Total Protein (6.4-8.2) gm/dl Albumin (3.4-5.0) gm/dl Globulin (2.5-4.0) gm/dl Albumin/Globulin Ratio (0.9-2) Lipase Beta-Hydroxybutyric Acd (0.2-2.81) mg/dl Procalcitonin (0-0.5) ng/ml Urine Color Urine Appearance (Clear) Urine pH (4.5-7.5) Ur Specific Hunter (1.000-1.030) Urine Protein (Negative) Urine Glucose (UA) (Negative) Urine Ketones (Negative) Urine Blood (Negative) Urine Nitrite (Negative) Urine Bilirubin (Negative) Urine Urobilinogen (Negative) Ur Leukocyte Esterase (Negative) Urine WBC (Auto) (0-5) /hpf Urine RBC (Auto) (0-4) /hpf U Hyaline Cast (Auto) (0-5) /lpf U Epithel Cells (Auto) (0-5) /lpf Urine Bacteria (Auto) (Negative) Nasal Screen MRSA (PCR) (Negative) Hepatitis C Ab Screen (Neg) 06/18/19 06/18/19 06/18/19 Range/Units 19:57 18:53 17:49 WBC (4.8-10.8) K/uL RBC (4.7-6.1) M/uL Hgb (14.0-18.0) g/dL POC Hgb (14.0-18.0) g/dl Hct (42-52) % POC Hct (42-52) % MCV (80-100) fL MCH (25-34) pg MCHC (32-36) g/dL RDW Std Deviation (36.4-46.3) fL RDW Coeff of Mariah (11.5-14.5) % Plt Count (130-400) K/uL MPV (7.4-10.4) fL Immature Gran % (Auto) % Neut % (Auto) % Lymph % (Auto) % Williams % (Auto) % Eos % (Auto) % Baso % (Auto) % Immature Gran # (Auto) (0.00-0.02) K/uL Neut # (Auto) (1.4-6.5) K/uL Lymph # (Auto) (1.2-3.4) K/uL Williams # (Auto) (0.11-0.59) K/uL Eos # (Auto) (0-0.5) K/uL Baso # (Auto) (0-0.2) K/uL ABG pH (7.35-7.45) ABG pCO2 (35-46) mmHg ABG pO2 (80-95) mm/Hg ABG HCO3 (19-24) mmol/L ABG O2 Saturation (90-95) % ABG Base Excess (-9-1.8) mEq/L Ronni Test (Pos) VBG pH (7.36-7.41) Barometric Pressure mm/Hg Oxygen Given POC Sodium (135-144) mEq/L Sodium (136-145) mmol/L POC Potassium (3.3-5.0) mEq/L Potassium (3.5-5.1) mmol/L POC Chloride (101-112) mEq/L Chloride (98-107) mmol/L Carbon Dioxide (21-32) mmol/L POC Total CO2 (24-31) mEq/l Anion Gap (3-11) POC Anion Gap (16-25) mmol/L POC BUN (7-18) mg/dl BUN (7-18) mg/dl Creatinine (0.6-1.4) mg/dl POC Creatinine (0.6-1.3) mg/dl Est Cr Clr Drug Dosing ml/min Est GFR ( Amer) Est GFR (Non-Af Amer) BUN/Creatinine Ratio (10-20) Glucose (70-99) mg/dl POC Glucose 227 H 221 H 314 H* (70-99) POC Glucose (other) (70-99) mg/dl Estimat Average Glucose mg/dl Hemoglobin A1c (4.5-5.6) % Lactate (0.4-2.0) mmol/L Calcium (8.5-10.1) mg/dl POC Ioniz Calcium Yaritza (1.12-1.32) mmol/l Phosphorus (2.5-4.9) mg/dl Magnesium (1.8-2.4) mg/dl Total Bilirubin (0.2-1) mg/dl AST (15-37) U/L ALT (12-78) U/L Alkaline Phosphatase (45-117) U/L Troponin I (0-0.045) ng/ml Total Protein (6.4-8.2) gm/dl Albumin (3.4-5.0) gm/dl Globulin (2.5-4.0) gm/dl Albumin/Globulin Ratio (0.9-2) Lipase Beta-Hydroxybutyric Acd (0.2-2.81) mg/dl Procalcitonin (0-0.5) ng/ml Urine Color Urine Appearance (Clear) Urine pH (4.5-7.5) Ur Specific Hunter (1.000-1.030) Urine Protein (Negative) Urine Glucose (UA) (Negative) Urine Ketones (Negative) Urine Blood (Negative) Urine Nitrite (Negative) Urine Bilirubin (Negative) Urine Urobilinogen (Negative) Ur Leukocyte Esterase (Negative) Urine WBC (Auto) (0-5) /hpf Urine RBC (Auto) (0-4) /hpf U Hyaline Cast (Auto) (0-5) /lpf U Epithel Cells (Auto) (0-5) /lpf Urine Bacteria (Auto) (Negative) Nasal Screen MRSA (PCR) (Negative) Hepatitis C Ab Screen (Neg) 06/18/19 06/18/19 06/18/19 Range/Units 17:25 17:25 17:25 WBC (4.8-10.8) K/uL RBC (4.7-6.1) M/uL Hgb (14.0-18.0) g/dL POC Hgb (14.0-18.0) g/dl Hct (42-52) % POC Hct (42-52) % MCV (80-100) fL MCH (25-34) pg MCHC (32-36) g/dL RDW Std Deviation (36.4-46.3) fL RDW Coeff of Mariah (11.5-14.5) % Plt Count (130-400) K/uL MPV (7.4-10.4) fL Immature Gran % (Auto) % Neut % (Auto) % Lymph % (Auto) % Williams % (Auto) % Eos % (Auto) % Baso % (Auto) % Immature Gran # (Auto) (0.00-0.02) K/uL Neut # (Auto) (1.4-6.5) K/uL Lymph # (Auto) (1.2-3.4) K/uL Williams # (Auto) (0.11-0.59) K/uL Eos # (Auto) (0-0.5) K/uL Baso # (Auto) (0-0.2) K/uL ABG pH (7.35-7.45) ABG pCO2 (35-46) mmHg ABG pO2 (80-95) mm/Hg ABG HCO3 (19-24) mmol/L ABG O2 Saturation (90-95) % ABG Base Excess (-9-1.8) mEq/L Ronni Test (Pos) VBG pH (7.36-7.41) Barometric Pressure mm/Hg Oxygen Given POC Sodium (135-144) mEq/L Sodium (136-145) mmol/L POC Potassium (3.3-5.0) mEq/L Potassium (3.5-5.1) mmol/L POC Chloride (101-112) mEq/L Chloride (98-107) mmol/L Carbon Dioxide (21-32) mmol/L POC Total CO2 (24-31) mEq/l Anion Gap (3-11) POC Anion Gap (16-25) mmol/L POC BUN (7-18) mg/dl BUN (7-18) mg/dl Creatinine (0.6-1.4) mg/dl POC Creatinine (0.6-1.3) mg/dl Est Cr Clr Drug Dosing ml/min Est GFR ( Amer) Est GFR (Non-Af Amer) BUN/Creatinine Ratio (10-20) Glucose (70-99) mg/dl POC Glucose (70-99) POC Glucose (other) (70-99) mg/dl Estimat Average Glucose mg/dl Hemoglobin A1c (4.5-5.6) % Lactate (0.4-2.0) mmol/L Calcium (8.5-10.1) mg/dl POC Ioniz Calcium Yaritza (1.12-1.32) mmol/l Phosphorus (2.5-4.9) mg/dl Magnesium (1.8-2.4) mg/dl Total Bilirubin (0.2-1) mg/dl AST (15-37) U/L ALT (12-78) U/L Alkaline Phosphatase (45-117) U/L Troponin I < 0.015 (0-0.045) ng/ml Total Protein (6.4-8.2) gm/dl Albumin (3.4-5.0) gm/dl Globulin (2.5-4.0) gm/dl Albumin/Globulin Ratio (0.9-2) Lipase 2311 H Cancelled Beta-Hydroxybutyric Acd (0.2-2.81) mg/dl Procalcitonin (0-0.5) ng/ml Urine Color Urine Appearance (Clear) Urine pH (4.5-7.5) Ur Specific Hunter (1.000-1.030) Urine Protein (Negative) Urine Glucose (UA) (Negative) Urine Ketones (Negative) Urine Blood (Negative) Urine Nitrite (Negative) Urine Bilirubin (Negative) Urine Urobilinogen (Negative) Ur Leukocyte Esterase (Negative) Urine WBC (Auto) (0-5) /hpf Urine RBC (Auto) (0-4) /hpf U Hyaline Cast (Auto) (0-5) /lpf U Epithel Cells (Auto) (0-5) /lpf Urine Bacteria (Auto) (Negative) Nasal Screen MRSA (PCR) (Negative) Hepatitis C Ab Screen Neg (Neg) 06/18/19 06/18/19 06/18/19 Range/Units 17:25 17:25 17:25 WBC (4.8-10.8) K/uL RBC (4.7-6.1) M/uL Hgb (14.0-18.0) g/dL POC Hgb (14.0-18.0) g/dl Hct (42-52) % POC Hct (42-52) % MCV (80-100) fL MCH (25-34) pg MCHC (32-36) g/dL RDW Std Deviation (36.4-46.3) fL RDW Coeff of Mariah (11.5-14.5) % Plt Count (130-400) K/uL MPV (7.4-10.4) fL Immature Gran % (Auto) % Neut % (Auto) % Lymph % (Auto) % Williams % (Auto) % Eos % (Auto) % Baso % (Auto) % Immature Gran # (Auto) (0.00-0.02) K/uL Neut # (Auto) (1.4-6.5) K/uL Lymph # (Auto) (1.2-3.4) K/uL Williams # (Auto) (0.11-0.59) K/uL Eos # (Auto) (0-0.5) K/uL Baso # (Auto) (0-0.2) K/uL ABG pH (7.35-7.45) ABG pCO2 (35-46) mmHg ABG pO2 (80-95) mm/Hg ABG HCO3 (19-24) mmol/L ABG O2 Saturation (90-95) % ABG Base Excess (-9-1.8) mEq/L Ronni Test (Pos) VBG pH 7.20 L (7.36-7.41) Barometric Pressure mm/Hg Oxygen Given POC Sodium (135-144) mEq/L Sodium 139 D (136-145) mmol/L POC Potassium (3.3-5.0) mEq/L Potassium 5.0 (3.5-5.1) mmol/L POC Chloride (101-112) mEq/L Chloride 111 H (98-107) mmol/L Carbon Dioxide 12 L (21-32) mmol/L POC Total CO2 (24-31) mEq/l Anion Gap 16.0 H (3-11) POC Anion Gap (16-25) mmol/L POC BUN (7-18) mg/dl BUN 35 H (7-18) mg/dl Creatinine 1.37 D (0.6-1.4) mg/dl POC Creatinine (0.6-1.3) mg/dl Est Cr Clr Drug Dosing 57.6 ml/min Est GFR ( Amer) 65.9 Est GFR (Non-Af Amer) 56.8 BUN/Creatinine Ratio 25.3 H (10-20) Glucose 342 H* (70-99) mg/dl POC Glucose (70-99) POC Glucose (other) (70-99) mg/dl Estimat Average Glucose mg/dl Hemoglobin A1c (4.5-5.6) % Lactate (0.4-2.0) mmol/L Calcium 9.4 (8.5-10.1) mg/dl POC Ioniz Calcium Yaritza (1.12-1.32) mmol/l Phosphorus 4.5 D (2.5-4.9) mg/dl Magnesium 2.1 (1.8-2.4) mg/dl Total Bilirubin (0.2-1) mg/dl AST (15-37) U/L ALT (12-78) U/L Alkaline Phosphatase (45-117) U/L Troponin I (0-0.045) ng/ml Total Protein (6.4-8.2) gm/dl Albumin (3.4-5.0) gm/dl Globulin (2.5-4.0) gm/dl Albumin/Globulin Ratio (0.9-2) Lipase Beta-Hydroxybutyric Acd 68.68 H (0.2-2.81) mg/dl Procalcitonin 0.05 (0-0.5) ng/ml Urine Color Urine Appearance (Clear) Urine pH (4.5-7.5) Ur Specific Hunter (1.000-1.030) Urine Protein (Negative) Urine Glucose (UA) (Negative) Urine Ketones (Negative) Urine Blood (Negative) Urine Nitrite (Negative) Urine Bilirubin (Negative) Urine Urobilinogen (Negative) Ur Leukocyte Esterase (Negative) Urine WBC (Auto) (0-5) /hpf Urine RBC (Auto) (0-4) /hpf U Hyaline Cast (Auto) (0-5) /lpf U Epithel Cells (Auto) (0-5) /lpf Urine Bacteria (Auto) (Negative) Nasal Screen MRSA (PCR) (Negative) Hepatitis C Ab Screen (Neg) 06/18/19 06/18/19 06/18/19 Range/Units 17:15 16:47 15:41 WBC (4.8-10.8) K/uL RBC (4.7-6.1) M/uL Hgb (14.0-18.0) g/dL POC Hgb (14.0-18.0) g/dl Hct (42-52) % POC Hct (42-52) % MCV (80-100) fL MCH (25-34) pg MCHC (32-36) g/dL RDW Std Deviation (36.4-46.3) fL RDW Coeff of Mariah (11.5-14.5) % Plt Count (130-400) K/uL MPV (7.4-10.4) fL Immature Gran % (Auto) % Neut % (Auto) % Lymph % (Auto) % Williams % (Auto) % Eos % (Auto) % Baso % (Auto) % Immature Gran # (Auto) (0.00-0.02) K/uL Neut # (Auto) (1.4-6.5) K/uL Lymph # (Auto) (1.2-3.4) K/uL Williams # (Auto) (0.11-0.59) K/uL Eos # (Auto) (0-0.5) K/uL Baso # (Auto) (0-0.2) K/uL ABG pH (7.35-7.45) ABG pCO2 (35-46) mmHg ABG pO2 (80-95) mm/Hg ABG HCO3 (19-24) mmol/L ABG O2 Saturation (90-95) % ABG Base Excess (-9-1.8) mEq/L Ronni Test (Pos) VBG pH (7.36-7.41) Barometric Pressure mm/Hg Oxygen Given POC Sodium (135-144) mEq/L Sodium (136-145) mmol/L POC Potassium (3.3-5.0) mEq/L Potassium (3.5-5.1) mmol/L POC Chloride (101-112) mEq/L Chloride (98-107) mmol/L Carbon Dioxide (21-32) mmol/L POC Total CO2 (24-31) mEq/l Anion Gap (3-11) POC Anion Gap (16-25) mmol/L POC BUN (7-18) mg/dl BUN (7-18) mg/dl Creatinine (0.6-1.4) mg/dl POC Creatinine (0.6-1.3) mg/dl Est Cr Clr Drug Dosing ml/min Est GFR ( Amer) Est GFR (Non-Af Amer) BUN/Creatinine Ratio (10-20) Glucose (70-99) mg/dl POC Glucose 375 H* (70-99) POC Glucose (other) (70-99) mg/dl Estimat Average Glucose mg/dl Hemoglobin A1c (4.5-5.6) % Lactate 2.9 H* (0.4-2.0) mmol/L Calcium (8.5-10.1) mg/dl POC Ioniz Calcium Yaritza (1.12-1.32) mmol/l Phosphorus (2.5-4.9) mg/dl Magnesium (1.8-2.4) mg/dl Total Bilirubin (0.2-1) mg/dl AST (15-37) U/L ALT (12-78) U/L Alkaline Phosphatase (45-117) U/L Troponin I (0-0.045) ng/ml Total Protein (6.4-8.2) gm/dl Albumin (3.4-5.0) gm/dl Globulin (2.5-4.0) gm/dl Albumin/Globulin Ratio (0.9-2) Lipase Beta-Hydroxybutyric Acd (0.2-2.81) mg/dl Procalcitonin (0-0.5) ng/ml Urine Color Urine Appearance (Clear) Urine pH (4.5-7.5) Ur Specific Hunter (1.000-1.030) Urine Protein (Negative) Urine Glucose (UA) (Negative) Urine Ketones (Negative) Urine Blood (Negative) Urine Nitrite (Negative) Urine Bilirubin (Negative) Urine Urobilinogen (Negative) Ur Leukocyte Esterase (Negative) Urine WBC (Auto) (0-5) /hpf Urine RBC (Auto) (0-4) /hpf U Hyaline Cast (Auto) (0-5) /lpf U Epithel Cells (Auto) (0-5) /lpf Urine Bacteria (Auto) (Negative) Nasal Screen MRSA (PCR) Negative (Negative) Hepatitis C Ab Screen (Neg) 06/18/19 06/18/19 06/18/19 Range/Units 15:41 15:26 14:41 WBC (4.8-10.8) K/uL RBC (4.7-6.1) M/uL Hgb (14.0-18.0) g/dL POC Hgb 17.0 (14.0-18.0) g/dl Hct (42-52) % POC Hct 50 (42-52) % MCV (80-100) fL MCH (25-34) pg MCHC (32-36) g/dL RDW Std Deviation (36.4-46.3) fL RDW Coeff of Mariah (11.5-14.5) % Plt Count (130-400) K/uL MPV (7.4-10.4) fL Immature Gran % (Auto) % Neut % (Auto) % Lymph % (Auto) % Williams % (Auto) % Eos % (Auto) % Baso % (Auto) % Immature Gran # (Auto) (0.00-0.02) K/uL Neut # (Auto) (1.4-6.5) K/uL Lymph # (Auto) (1.2-3.4) K/uL Williams # (Auto) (0.11-0.59) K/uL Eos # (Auto) (0-0.5) K/uL Baso # (Auto) (0-0.2) K/uL ABG pH (7.35-7.45) ABG pCO2 (35-46) mmHg ABG pO2 (80-95) mm/Hg ABG HCO3 (19-24) mmol/L ABG O2 Saturation (90-95) % ABG Base Excess (-9-1.8) mEq/L Ronni Test (Pos) VBG pH (7.36-7.41) Barometric Pressure mm/Hg Oxygen Given POC Sodium 139 (135-144) mEq/L Sodium (136-145) mmol/L POC Potassium 5.3 H (3.3-5.0) mEq/L Potassium 5.0 D (3.5-5.1) mmol/L POC Chloride 113 H (101-112) mEq/L Chloride (98-107) mmol/L Carbon Dioxide (21-32) mmol/L POC Total CO2 11 L (24-31) mEq/l Anion Gap (3-11) POC Anion Gap 21.0 (16-25) mmol/L POC BUN 35 H (7-18) mg/dl BUN (7-18) mg/dl Creatinine (0.6-1.4) mg/dl POC Creatinine 1.1 (0.6-1.3) mg/dl Est Cr Clr Drug Dosing ml/min Est GFR ( Amer) Est GFR (Non-Af Amer) BUN/Creatinine Ratio (10-20) Glucose (70-99) mg/dl POC Glucose 506 H* (70-99) POC Glucose (other) 449 H* (70-99) mg/dl Estimat Average Glucose mg/dl Hemoglobin A1c (4.5-5.6) % Lactate (0.4-2.0) mmol/L Calcium (8.5-10.1) mg/dl POC Ioniz Calcium Yaritza 1.42 H (1.12-1.32) mmol/l Phosphorus (2.5-4.9) mg/dl Magnesium (1.8-2.4) mg/dl Total Bilirubin (0.2-1) mg/dl AST (15-37) U/L ALT (12-78) U/L Alkaline Phosphatase (45-117) U/L Troponin I (0-0.045) ng/ml Total Protein (6.4-8.2) gm/dl Albumin (3.4-5.0) gm/dl Globulin (2.5-4.0) gm/dl Albumin/Globulin Ratio (0.9-2) Lipase Beta-Hydroxybutyric Acd (0.2-2.81) mg/dl Procalcitonin (0-0.5) ng/ml Urine Color Urine Appearance (Clear) Urine pH (4.5-7.5) Ur Specific Hunter (1.000-1.030) Urine Protein (Negative) Urine Glucose (UA) (Negative) Urine Ketones (Negative) Urine Blood (Negative) Urine Nitrite (Negative) Urine Bilirubin (Negative) Urine Urobilinogen (Negative) Ur Leukocyte Esterase (Negative) Urine WBC (Auto) (0-5) /hpf Urine RBC (Auto) (0-4) /hpf U Hyaline Cast (Auto) (0-5) /lpf U Epithel Cells (Auto) (0-5) /lpf Urine Bacteria (Auto) (Negative) Nasal Screen MRSA (PCR) (Negative) Hepatitis C Ab Screen (Neg) 06/18/19 06/18/19 06/18/19 Range/Units 13:28 13:07 12:55 WBC (4.8-10.8) K/uL RBC (4.7-6.1) M/uL Hgb (14.0-18.0) g/dL POC Hgb 19.0 H (14.0-18.0) g/dl Hct (42-52) % POC Hct 56 H (42-52) % MCV (80-100) fL MCH (25-34) pg MCHC (32-36) g/dL RDW Std Deviation (36.4-46.3) fL RDW Coeff of Mariah (11.5-14.5) % Plt Count (130-400) K/uL MPV (7.4-10.4) fL Immature Gran % (Auto) % Neut % (Auto) % Lymph % (Auto) % Williams % (Auto) % Eos % (Auto) % Baso % (Auto) % Immature Gran # (Auto) (0.00-0.02) K/uL Neut # (Auto) (1.4-6.5) K/uL Lymph # (Auto) (1.2-3.4) K/uL Williams # (Auto) (0.11-0.59) K/uL Eos # (Auto) (0-0.5) K/uL Baso # (Auto) (0-0.2) K/uL ABG pH 7.15 L* (7.35-7.45) ABG pCO2 18 L (35-46) mmHg ABG pO2 131 H (80-95) mm/Hg ABG HCO3 6 L (19-24) mmol/L ABG O2 Saturation 98.0 H (90-95) % ABG Base Excess -20.4 L (-9-1.8) mEq/L Ronni Test Pos (Pos) VBG pH (7.36-7.41) Barometric Pressure 737.9 mm/Hg Oxygen Given RA POC Sodium 132 L (135-144) mEq/L Sodium (136-145) mmol/L POC Potassium 6.6 H* (3.3-5.0) mEq/L Potassium (3.5-5.1) mmol/L POC Chloride 104 (101-112) mEq/L Chloride (98-107) mmol/L Carbon Dioxide (21-32) mmol/L POC Total CO2 11 L (24-31) mEq/l Anion Gap (3-11) POC Anion Gap 24.0 (16-25) mmol/L POC BUN 41 H (7-18) mg/dl BUN (7-18) mg/dl Creatinine (0.6-1.4) mg/dl POC Creatinine 1.4 H (0.6-1.3) mg/dl Est Cr Clr Drug Dosing ml/min Est GFR ( Amer) Est GFR (Non-Af Amer) BUN/Creatinine Ratio (10-20) Glucose (70-99) mg/dl POC Glucose (70-99) POC Glucose (other) 649 H* (70-99) mg/dl Estimat Average Glucose mg/dl Hemoglobin A1c (4.5-5.6) % Lactate (0.4-2.0) mmol/L Calcium (8.5-10.1) mg/dl POC Ioniz Calcium Yaritza 1.31 (1.12-1.32) mmol/l Phosphorus (2.5-4.9) mg/dl Magnesium (1.8-2.4) mg/dl Total Bilirubin (0.2-1) mg/dl AST (15-37) U/L ALT (12-78) U/L Alkaline Phosphatase (45-117) U/L Troponin I (0-0.045) ng/ml Total Protein (6.4-8.2) gm/dl Albumin (3.4-5.0) gm/dl Globulin (2.5-4.0) gm/dl Albumin/Globulin Ratio (0.9-2) Lipase Beta-Hydroxybutyric Acd (0.2-2.81) mg/dl Procalcitonin (0-0.5) ng/ml Urine Color Yellow Urine Appearance Clear (Clear) Urine pH 5.0 (4.5-7.5) Ur Specific Hunter 1.026 (1.000-1.030) Urine Protein 1+ H (Negative) Urine Glucose (UA) 3+ H (Negative) Urine Ketones 4+ H (Negative) Urine Blood Trace H (Negative) Urine Nitrite Negative (Negative) Urine Bilirubin Negative (Negative) Urine Urobilinogen Negative (Negative) Ur Leukocyte Esterase Negative (Negative) Urine WBC (Auto) 1-5 (0-5) /hpf Urine RBC (Auto) 0-4 (0-4) /hpf U Hyaline Cast (Auto) 1-5 (0-5) /lpf U Epithel Cells (Auto) 5-10 H (0-5) /lpf Urine Bacteria (Auto) Negative (Negative) Nasal Screen MRSA (PCR) (Negative) Hepatitis C Ab Screen (Neg) 06/18/19 06/18/19 06/18/19 Range/Units 12:50 12:50 12:50 WBC 19.21 H (4.8-10.8) K/uL RBC 5.90 (4.7-6.1) M/uL Hgb 18.7 H (14.0-18.0) g/dL POC Hgb (14.0-18.0) g/dl Hct 53.0 H (42-52) % POC Hct (42-52) % MCV 89.8 (80-100) fL MCH 31.7 (25-34) pg MCHC 35.3 (32-36) g/dL RDW Std Deviation 45.1 (36.4-46.3) fL RDW Coeff of Mariah 13.8 (11.5-14.5) % Plt Count 248 (130-400) K/uL MPV 12.3 H (7.4-10.4) fL Immature Gran % (Auto) 0.6 % Neut % (Auto) 89.3 % Lymph % (Auto) 5.7 % Williams % (Auto) 4.3 % Eos % (Auto) 0.0 % Baso % (Auto) 0.1 % Immature Gran # (Auto) 0.12 H (0.00-0.02) K/uL Neut # (Auto) 17.15 H (1.4-6.5) K/uL Lymph # (Auto) 1.09 L (1.2-3.4) K/uL Williams # (Auto) 0.83 H (0.11-0.59) K/uL Eos # (Auto) 0.00 (0-0.5) K/uL Baso # (Auto) 0.02 (0-0.2) K/uL ABG pH (7.35-7.45) ABG pCO2 (35-46) mmHg ABG pO2 (80-95) mm/Hg ABG HCO3 (19-24) mmol/L ABG O2 Saturation (90-95) % ABG Base Excess (-9-1.8) mEq/L Ronni Test (Pos) VBG pH (7.36-7.41) Barometric Pressure mm/Hg Oxygen Given POC Sodium (135-144) mEq/L Sodium 131 L (136-145) mmol/L POC Potassium (3.3-5.0) mEq/L Potassium 6.3 H* (3.5-5.1) mmol/L POC Chloride (101-112) mEq/L Chloride 95 L (98-107) mmol/L Carbon Dioxide 9 L* (21-32) mmol/L POC Total CO2 (24-31) mEq/l Anion Gap 27.0 H (3-11) POC Anion Gap (16-25) mmol/L POC BUN (7-18) mg/dl BUN 40 H (7-18) mg/dl Creatinine 1.91 H (0.6-1.4) mg/dl POC Creatinine (0.6-1.3) mg/dl Est Cr Clr Drug Dosing 41.3 ml/min Est GFR ( Amer) 44.1 Est GFR (Non-Af Amer) 38.0 BUN/Creatinine Ratio 20.8 H (10-20) Glucose 668 H* (70-99) mg/dl POC Glucose (70-99) POC Glucose (other) (70-99) mg/dl Estimat Average Glucose 338 mg/dl Hemoglobin A1c 13.4 H (4.5-5.6) % Lactate (0.4-2.0) mmol/L Calcium 10.9 H (8.5-10.1) mg/dl POC Ioniz Calcium Yaritza (1.12-1.32) mmol/l Phosphorus 8.4 H (2.5-4.9) mg/dl Magnesium 2.5 H (1.8-2.4) mg/dl Total Bilirubin 0.6 (0.2-1) mg/dl AST 9 L (15-37) U/L ALT 34 (12-78) U/L Alkaline Phosphatase 189 H (45-117) U/L Troponin I (0-0.045) ng/ml Total Protein 9.3 H (6.4-8.2) gm/dl Albumin 4.5 (3.4-5.0) gm/dl Globulin 4.8 H (2.5-4.0) gm/dl Albumin/Globulin Ratio 0.9 (0.9-2) Lipase Beta-Hydroxybutyric Acd (0.2-2.81) mg/dl Procalcitonin (0-0.5) ng/ml Urine Color Urine Appearance (Clear) Urine pH (4.5-7.5) Ur Specific Hunter (1.000-1.030) Urine Protein (Negative) Urine Glucose (UA) (Negative) Urine Ketones (Negative) Urine Blood (Negative) Urine Nitrite (Negative) Urine Bilirubin (Negative) Urine Urobilinogen (Negative) Ur Leukocyte Esterase (Negative) Urine WBC (Auto) (0-5) /hpf Urine RBC (Auto) (0-4) /hpf U Hyaline Cast (Auto) (0-5) /lpf U Epithel Cells (Auto) (0-5) /lpf Urine Bacteria (Auto) (Negative) Nasal Screen MRSA (PCR) (Negative) Hepatitis C Ab Screen (Neg) Medications Administered Current Inpatient Medications Acetaminophen (Tylenol) 650 mg PO Q4H PRN PRN Reason: Pain Stop: 07/19/19 00:00 Last Admin: 06/19/19 00:09 Dose: 650 mg Documented by: Dextrose (Dextrose 50%) 25 - 50 ml IV UD PRN; Protocol PRN Reason: Hypoglycemia Protocol Stop: 07/18/19 12:58 Enoxaparin Sodium (Lovenox) 40 mg SQ Q24H NELI Stop: 07/18/19 19:59 Last Admin: 06/18/19 19:55 Dose: 40 mg Documented by: Glucagon (Glucagen) 1 mg SQ UD PRN; Protocol PRN Reason: Hypoglycemia Protocol Stop: 07/18/19 12:58 Glucose (Glucose 40%) 15 - 30 gm PO UD PRN; Protocol PRN Reason: Hypoglycemia Protocol Stop: 07/18/19 12:42 Glucose (Glucose 40%) 15 - 30 gm PO UD PRN; Protocol PRN Reason: Hypoglycemia Protocol Stop: 07/18/19 12:58 Glucose (Dex4 Glucose) 4 - 8 tabs PO UD PRN; Protocol PRN Reason: Hypoglycemia Protocol Stop: 07/18/19 12:58 Hydralazine HCl (Hydralazine Hcl) 5 mg IV NOW PRN PRN Reason: Hypertension Parenteral Electrolytes (Normosol-R) 1,000 mls @ 80 mls/hr IV .[id number] NELI Stop: 07/19/19 03:29 Last Admin: 06/19/19 03:41 Dose: 80 mls/hr Documented by: Insulin Aspart (Novolog Flexpen) 0 units SC ACHS NELI Stop: 07/19/19 07:29 Last Admin: 06/19/19 06:49 Dose: 1 units Documented by: Miscellaneous (Carbohydrates For Hypoglycemia) 15 - 30 gm PO UD PRN PRN Reason: Hypoglycemia Protocol Stop: 07/18/19 12:58 Miscellaneous Information (Consult Glycemic Management Pharmacy) 1 ea N/A UD PRN PRN Reason: Consult Stop: 07/18/19 17:46 Resident Activity Tracking Resident Involvement: Resident Care Provided Care Provided: Adult Hospital Medicine
[2019-06-19 10:21] LABS: Calcium 9.3 mg/dl (8.5-10.1); Creatinine Clr Calc Pharmacy 75.8 ml/min; Est GFR (African American) 91.9; Est GFR (Non-African American) 79.3; Magnesium 2.1 mg/dl (1.8-2.4); Phosphorus 2.2 mg/dl (2.5-4.9); Potassium 4.6 mmol/L (3.5-5.1)
[2019-06-19] MEDS ORDERED: INSULIN ASPART 100 UNITS/ML 3 ML PEN SC ONE (11:00)
--- NOTE | 2019-06-19 11:21 | Billing Data ---
Coding Level of Care Code 30269 Subseq Hosp Care Lvl 3
[2019-06-19 11:45] LABS: Chol HDL Ratio 5; Cholesterol 127 mg/dl (0-200); HDL Cholesterol 27 mg/dl; LDL Cholesterol Calculated 73 mg/dl; Triglycerides 137 mg/dl (0-150); VLDL Cholesterol 27 mg/dl
[2019-06-19] MEDS ORDERED: INSULIN ASPART 100 UNITS/ML 3 ML PEN SC SCH (12:00)
[2019-06-19] MEDS: lisinopriL 10 MG TAB PO SCH (13:03)
--- NOTE | 2019-06-19 14:10 | Pharmacy Report ---
Pharmacy Glycemic Short Note 2 - Date of Service June 19, 2019 - Glycemic Short BSG Results (Last 24 hours): 06/18/19 06/18/19 06/18/19 12:50 14:41 15:26 Glucose 668 H* POC Glucose 506 H* POC Glucose (other) 449 H* 06/18/19 06/18/19 06/18/19 16:47 17:25 17:49 Glucose 342 H* POC Glucose 375 H* 314 H* POC Glucose (other) 06/18/19 06/18/19 06/18/19 18:53 19:57 20:53 Glucose POC Glucose 221 H 227 H 224 H POC Glucose (other) 06/18/19 06/18/19 06/18/19 21:24 21:50 23:48 Glucose 231 H POC Glucose 222 H 209 H POC Glucose (other) 06/19/19 06/19/19 06/19/19 01:26 01:58 03:04 Glucose 158 H POC Glucose 140 H 125 H POC Glucose (other) 06/19/19 06/19/19 06/19/19 03:44 04:38 05:32 Glucose 133 H POC Glucose 106 H 133 H POC Glucose (other) 06/19/19 06/19/19 06/19/19 06:38 09:41 09:51 Glucose 220 H POC Glucose 151 H 232 H POC Glucose (other) 06/19/19 12:55 Glucose POC Glucose 192 H POC Glucose (other) OUTPATIENT ANTIDIABETIC REGIMEN: * Metformin 1gm PO BID * Glimepiride 4mg PO BID * Dulaglutide (Trulicity) 1.5mg SQ weekly on Fridays * A1c = 13.4% 06/18/19 ASSESSMENT: * Type 2 diabetic admitted to ICU for DKA - secondary to omission of his DM medications * Labs on admission: Glu 668, Na 131 (corrected Na ~140), AG 27, Bicarb 9, pH 7.15 * IV fluid resuscitation and IV insulin infusion started in the ED. AG and Bicarb had normalized by 0130 today * SQ Lantus initiated last evenin units at bedtime + 40 units at ~0300 today. * IV insulin drip d/c'd after 2nd Lantus dose given. * BSGs at goal this AM and pt has been ordered a Clears diet. * Pt may be more insulin resistant today given recent DKA - given the large basal doses already on board I am hesitant to add more basal. Will resume basal insulin this PM using pt weight and "severe" stress level. * Novolog will be dosed ACHS and at 0000 + 0400 tonight should his basal needs be higher than anticipated. PLAN FOR INPATIENT GLYCEMIC CONTROL: * Hold outpatient oral diabetes medications (metformin, glimepiride, dulaglutide) * Basal insulin * Lantus 20 units SQ BID * Bolus insulin * NovoLog per scale ACHS and at 0000 + 0400 * Goal Range: Low 110 mg/dL - High 140 mg/dL * Correction Factor: 20 mg/dL/unit * Nutritional / Prandial insulin per carb ratio of 1 unit per 8 grams CHO consumed PLAN FOR DISCHARGE: * to be determined. will need to determine what options are available to him based upon cost and his insurance coverage. his A1c reflects poor control and insulin therapy would be warranted on discharge as a result. he reported that he has used Lantus and Novolog in the past.
--- NOTE | 2019-06-19 15:12 | Hospitalist Progress Note ---
Date of Service June 19, 2019 Assessment & Plan (1) DKA (diabetic ketoacidoses): -This is a 59-year-old male with a PMH of uncontrolled type 2 diabetes, HTN and HLD who presents with worsening shortness of breath and weakness who was admitted on 06/18/19 with hyperglycemia with serum glucose of 668 and aniong gap of 27, with arterial blood gas pH of 7.15 and serum bicarbonate of 6 that correlates with diabetic ketoacidosis; also initially with hyperkalemia with serum potassium of 6.3 -Patient was admitted to the Intensive Care Unit with DKA resolving with IV insulin drip and IV fluids -Patient has been transitioned to subcutaneous insulin as of 06/19/19 -Because patient was not on insulin at home, having trouble with obtaining any diabetes medications except for metformin, patient's blood sugars have been inadequately controlled at home and HBA1c is 13.4 -patient will be on subcutaneous insulin further while inpatient - currently on glargine and aspart as per pharmacy glycemic control - because of financial reasons patient likely will need to be discharge on affordable 70/30 insulin which is commonly found at [facility] when outpatient (2) Hyperkalemia: -serum potassium of 6.3 on admission -hyperkalemia has resolved (3) Acute kidney injury superimposed on chronic kidney disease: -admission creatinine was 1.9 -patient received IV fluids during this admission -elevated creatinine above baseline is now resolve (4) Hypertension: -lisinopril 10 mg daily (5) Hyperlipidemia: -Continue statin admission CT abdomen 1. No acute process in the abdomen or pelvis. 2. Small fat-containing inguinal hernias with no evidence for bowel containment or incarceration. 3. Fatty infiltration of the liver unchanged. DVT Ppx: SQ Lovenox Code status: FULL Subjective Patient awake and alert. no acute abdominal pain. denies vomiting. no chest pain. no shortness of breath. glucose relatively controlled off insulin drip from 2:30 AM Review of Systems Review of Systems: All systems reviewed & are unremarkable except as noted in HPI & below Physical Exam Constitutional: comfortable Eyes: PERRL, conjunctivae normal, anicteric sclerae EOM intact bilaterally ENMT: external ear and nose normal, oropharynx normal Neck: normal visual inspection Respiratory: normal respiratory effort, lungs clear to auscultation Cardiovascular: Rate/Rhythm: regular rate and regular rhythm Gastrointestinal (Abdomen): normal bowel sounds, soft, nontender, no hepatosplenomegaly Musculoskeletal: Head/Neck/Chest: normocephalic and head atraumatic Neurologic: PERRL, EOMI, accommodation nl, no face palsy, no dysarthria CN's II-XI intact bilaterally Psychiatric: A+Ox3, euthymic affect Results & Data Vital Signs (Past 12 Hours) Vital Signs Temp Pulse Resp BP Pulse Ox 06/19/19 13:00 90 16 148/76 H 99 06/19/19 12:00 84 20 143/76 H 98 06/19/19 11:00 91 H 18 135/90 98 06/19/19 10:00 78 5 L 133/75 99 06/19/19 09:00 37 C 92 H 15 142/79 H 96 06/19/19 08:00 77 13 128/69 99 06/19/19 07:00 79 13 149/74 H 99 06/19/19 05:49 36.5 C 06/19/19 05:43 82 16 149/75 H 99 06/19/19 04:43 75 11 L 126/68 98 06/19/19 04:10 72 5 L 122/69 98 06/19/19 03:42 82 13 103/58 L 99
[2019-06-19] MEDS ORDERED: BENZONATATE 100 MG CAPSULE PO PRN (20:50)
[2019-06-19] MEDS ORDERED: INSULIN GLARGINE SOLOSTAR 100 UNITS/ML 3 ML PEN SC SCH (21:00)
[2019-06-19] MEDS: ENOXAPARIN INJ 40 MG/0.4 ML SYR SQ SCH (21:18)
[2019-06-20 06:05] LABS: Basophils # (auto) 0.01 K/uL (0-0.2); Basophils % (auto) 0.2 %; Eosinophils # (auto) 0.08 K/uL (0-0.5); Eosinophils % (auto) 1.4 %; Hematocrit (blood only) 39.7 % (42-52); Hemoglobin 13.8 g/dL (14.0-18.0); Immature Granulocytes # (auto) 0.01 K/uL (0.00-0.02); Immature Granulocytes % (auto) 0.2 %; Lymphocytes # (auto) 1.43 K/uL (1.2-3.4); Lymphocytes % (auto) 24.8 %; Mean Corpuscular Hemoglobin 30.7 pg (25-34); Mean Corpuscular Hgb Conc 34.8 g/dL (32-36); Mean Corpuscular Volume 88.4 fL (80-100); Mean Platelet Volume 10.4 fL (7.4-10.4); Monocytes # (auto) 0.54 K/uL (0.11-0.59); Monocytes % (auto) 9.4 %; Platelet Count 134 K/uL (130-400); RDW Coefficient of Variation 13.9 % (11.5-14.5); RDW Standard Deviation 45.2 fL (36.4-46.3); Red Blood Count 4.49 M/uL (4.7-6.1); White Blood Count 5.77 K/uL (4.8-10.8)
[2019-06-20 06:26] LABS: Albumin Globulin Ratio 0.8 (0.9-2); Albumin Level 2.6 gm/dl (3.4-5.0); BUN Creatinine Ratio 12.7 (10-20); Bilirubin,Total 0.4 mg/dl (0.2-1); Calcium 8.4 mg/dl (8.5-10.1); Creatinine Clr Calc Pharmacy 112.6 ml/min; Est GFR (African American) 121.4; Est GFR (Non-African American) 104.8; Globulin 3.4 gm/dl (2.5-4.0); Potassium 3.5 mmol/L (3.5-5.1)
[2019-06-20] MEDS ORDERED: ACETAMINOPHEN 325 MG TAB PO PRN (07:22)
[2019-06-20] MEDS ORDERED: POTASSIUM CHLORIDE 20 MEQ TABCR PO STA (07:22)
[2019-06-20] MEDS: INSULIN HUMAN 70% NPH/30% REGULAR SC SCH ×2 (08:28→17:32)
[2019-06-20] MEDS ORDERED: MAGNESIUM HYDROXIDE SUSP 30 ML UDC PO ONE (10:35)
[2019-06-20] MEDS: lisinopriL 10 MG TAB PO SCH (10:35)
[2019-06-20] MEDS ORDERED: POLYETHYLENE (MIRALAX) 17 GM PACK PO PRN (10:35)
--- NOTE | 2019-06-20 12:02 | Hospitalist Progress Note ---
Date of Service June 20, 2019 Assessment & Plan (1) DKA (diabetic ketoacidoses): -This is a 59-year-old male with a PMH of uncontrolled type 2 diabetes, HTN and HLD who presents with worsening shortness of breath and weakness who was admitted on 06/18/19 with hyperglycemia with serum glucose of 668 and aniong gap of 27, with arterial blood gas pH of 7.15 and serum bicarbonate of 6 that correlates with diabetic ketoacidosis; also initially with hyperkalemia with serum potassium of 6.3 -Patient was admitted to the Intensive Care Unit with DKA resolving with IV insulin drip and IV fluids -Patient has been transitioned to subcutaneous insulin as of 06/19/19 -Because patient was not on insulin at home, having trouble with obtaining any diabetes medications except for metformin, patient's blood sugars have been inadequately controlled at home and HBA1c is 13.4 -patient will be on subcutaneous insulin further while inpatient - currently on glargine and aspart as per pharmacy glycemic control - because of financial reasons patient likely will need to be discharge on affordable 70/30 insulin which is commonly found at [facility] when outpatient -glucose is now being managed by subcutaneous 70/30 insulin as per pharmacy glycemic control as of 06/20/19. will monitor patient's blood glucose in hospital. possible discharge on 06/21/19 -patient given paper prescriptions for gluconometer, glucose test strips, lancets -a primary care provider appointment made for 06/24/2019 1:10 PM Provider Derek Cleveland MD Department Family Practice [facility]. Patient also will be messaged by [facility] outpatient team on following with diabetes control clinic (2) Hyperkalemia: -serum potassium of 6.3 on admission -hyperkalemia has resolved -serum potassium 3.5 on 06/20/19 and oral potassium given as target potassium levels should be between 3.5 to 4 (3) Acute kidney injury superimposed on chronic kidney disease: -admission creatinine was 1.9 -patient received IV fluids during this admission -elevated creatinine above baseline had resolved (4) Hypertension: -lisinopril 10 mg daily (5) Hyperlipidemia: -Continue statin admission CT abdomen 1. No acute process in the abdomen or pelvis. 2. Small fat-containing inguinal hernias with no evidence for bowel containment or incarceration. 3. Fatty infiltration of the liver unchanged. DVT Ppx: SQ Lovenox Code status: FULL Subjective Patient seen and examined at bedside. breathing on room air, no distress. glucose is now being managed by subcutaneous 70/30 insulin as per pharmacy glycemic control. patient does not have abdomen pain. no vomiting. no lightheadedness. no dizziness. no headache Review of Systems Review of Systems: All systems reviewed & are unremarkable except as noted in HPI & below Physical Exam Constitutional: comfortable Eyes: PERRL, conjunctivae normal, anicteric sclerae EOM intact bilaterally ENMT: external ear and nose normal, oropharynx normal Neck: normal visual inspection Respiratory: normal respiratory effort, lungs clear to auscultation Cardiovascular: Rate/Rhythm: regular rate and regular rhythm Gastrointestinal (Abdomen): normal bowel sounds, soft, nontender, no hepatosplenomegaly Musculoskeletal: Head/Neck/Chest: normocephalic and head atraumatic Neurologic: PERRL, EOMI, accommodation nl, no face palsy, no dysarthria CN's II-XI intact bilaterally Psychiatric: A+Ox3, euthymic affect Results & Data Vital Signs (Past 12 Hours) Vital Signs Temp Pulse Pulse Resp BP Pulse Ox 06/20/19 08:01 67 06/20/19 07:08 36.5 C 86 16 144/78 H 99 06/20/19 04:00 36.8 C 78 20 123/75 98 06/20/19 00:45 92 H
[2019-06-20] MEDS: INSULIN ASPART 100 UNITS/ML 3 ML PEN SC SCH ×3 (12:11→20:31)
--- NOTE | 2019-06-20 12:24 | Pharmacy Report ---
Pharmacy Glycemic Short Note 2 - Date of Service June 20, 2019 - Glycemic Short BSG Results (Last 24 hours): 06/19/19 06/19/19 06/19/19 12:55 16:20 20:12 Glucose POC Glucose 192 H 175 H 208 H 06/20/19 06/20/19 06/20/19 05:32 07:36 09:56 Glucose 167 H POC Glucose 180 H 284 H 06/20/19 11:46 Glucose POC Glucose 241 H OUTPATIENT ANTIDIABETIC REGIMEN: * Metformin 1gm PO BID * Glimepiride 4mg PO BID * Dulaglutide (Trulicity) 1.5mg SQ weekly on Fridays * A1c = 13.4% 06/18/19 ASSESSMENT: 06/20 * BSGs reasonably controlled since transition to SQ regimen yesterday * Over the last 24 hrs, pt received 73 units of SQ insulin with poor PO intake (only 1 meal consumed yesterday) * Will convert to 70/30 insulin today based upon a today daily dose of ~0.5unit/kg/day to start (or ~36 units) as he still has 20 units of Lantus on board for last night. He may be less insulin resistant that this time as well as the time since acute DKA increases. * Will continue Novolog correctional insulin only (no prandial coverage) as current 70/30 order is very conservative. * Will reassess today daily insulin requirements today and use this info to adjust ongoing 70/30 insulin order. 06/19 * Type 2 diabetic admitted to ICU for DKA - secondary to omission of his DM medications * Labs on admission: Glu 668, Na 131 (corrected Na ~140), AG 27, Bicarb 9, pH 7.15 * IV fluid resuscitation and IV insulin infusion started in the ED. AG and Bicarb had normalized by 0130 today * SQ Lantus initiated last evenin units at bedtime + 40 units at ~0300 today. * IV insulin drip d/c'd after 2nd Lantus dose given. * BSGs at goal this AM and pt has been ordered a Clears diet. * Pt may be more insulin resistant today given recent DKA - given the large basal doses already on board I am hesitant to add more basal. Will resume basal insulin this PM using pt weight and "severe" stress level. * Novolog will be dosed ACHS and at 0000 + 0400 tonight should his basal needs be higher than anticipated. PLAN FOR INPATIENT GLYCEMIC CONTROL: * Hold outpatient oral diabetes medications (metformin, glimepiride, dulaglutide) * Basal/prandial insulin * Novolin 70/30 insulin: 24 units w/ breakfast + 12 units with lunch * Correctional insulin * NovoLog per scale ACHS and at 0000 + 0400 * Goal Range: Low 110 mg/dL - High 140 mg/dL * Correction Factor: 20 mg/dL/unit PLAN FOR DISCHARGE: * his A1c reflects poor control and insulin therapy would be warranted on discharge as a result given recent DKA. patient has used insulin in the past. cde has recommended 70/30 insulin BID on discharge w/ metformin and I would agree this is an effective, titratable and cost minimizing strategy on discharge.
[2019-06-20] MEDS: PANTOprazole 40 MG TAB PO SCH (13:04)
[2019-06-20] MEDS: ATORVASTATIN 20 MG TAB PO SCH (13:04)
[2019-06-20] MEDS ORDERED: INSULIN HUMAN 70% NPH/30% REGULAR SC SCH (16:30)
[2019-06-20] MEDS ORDERED: INSULIN HUMAN 70% NPH/30% REGULAR SC ONE (16:30)
[2019-06-20] MEDS: ENOXAPARIN INJ 40 MG/0.4 ML SYR SQ SCH (20:30)
[2019-06-21] MEDS: INSULIN ASPART 100 UNITS/ML 3 ML PEN SC SCH ×3 (00:12→08:08)
[2019-06-21 07:43] VITALS: BP 143/86; TEMP 97.9; O2SAT 98
[2019-06-21] MEDS ORDERED: INFLUENZA ADMINISTRATION CHARGE ONE (08:05)
[2019-06-21] MEDS ORDERED: INFLUENZA VIRUS QUAD VACCINE 0.5 ML SYR IM ONE (08:05)
[2019-06-21] MEDS: ATORVASTATIN 20 MG TAB PO SCH (08:07)
[2019-06-21] MEDS: PANTOprazole 40 MG TAB PO SCH (08:07)
[2019-06-21] MEDS: lisinopriL 10 MG TAB PO SCH (08:07)
--- NOTE | 2019-06-21 10:08 | Pharmacy Report ---
Pharmacy Glycemic Short Note 2 - Date of Service June 21, 2019 - Glycemic Short BSG Results (Last 24 hours): 06/20/19 06/20/19 06/20/19 09:56 11:46 16:40 POC Glucose 284 H 241 H 180 H 06/20/19 06/21/19 06/21/19 20:20 00:06 04:02 POC Glucose 223 H 112 H 99 06/21/19 07:33 POC Glucose 145 H OUTPATIENT ANTIDIABETIC REGIMEN: * Metformin 1gm PO BID * Glimepiride 4mg PO BID * Dulaglutide (Trulicity) 1.5mg SQ weekly on Fridays * A1c = 13.4% 06/18/19 ASSESSMENT: BSGs remain reasonably controlled on 70/30 insulin. Please see D/C recs detailed below PLAN FOR INPATIENT GLYCEMIC CONTROL: * Hold outpatient oral diabetes medications (metformin, glimepiride, dulaglutide) * Basal/prandial insulin * Novolin 70/30 insulin: 24 units w/ breakfast + 24 units with lunch * Correctional insulin * NovoLog per scale ACHS and at 0000 + 0400 * Goal Range: Low 110 mg/dL - High 140 mg/dL * Correction Factor: 20 mg/dL/unit PLAN FOR DISCHARGE: * I would recommend ReliOn 70/30 insulin: 30 units with breakfast and 20 units with dinner, further titrations per PCP * Continue Metformin for the macrovascular benefits and insulin sparing effects * Discontinue Trulicity and Glimepiride
[2019-06-21 11:11] VITALS: PULSE 85
--- NOTE | 2019-06-21 11:30 | Hospitalist Progress Note ---
Date of Service June 21, 2019 Assessment & Plan (1) DKA (diabetic ketoacidoses): -This is a 59-year-old male with a PMH of uncontrolled type 2 diabetes, HTN and HLD who presents with worsening shortness of breath and weakness who was admitted on 06/18/19 with hyperglycemia with serum glucose of 668 and aniong gap of 27, with arterial blood gas pH of 7.15 and serum bicarbonate of 6 that correlates with diabetic ketoacidosis; also initially with hyperkalemia with serum potassium of 6.3 -Patient was admitted to the Intensive Care Unit with DKA resolving with IV insulin drip and IV fluids -Patient has been transitioned to subcutaneous insulin as of 06/19/19 -Because patient was not on insulin at home, having trouble with obtaining any diabetes medications except for metformin, patient's blood sugars have been inadequately controlled at home and HBA1c is 13.4 -patient will be on subcutaneous insulin further while inpatient - currently on glargine and aspart as per pharmacy glycemic control - because of financial reasons patient likely will need to be discharge on affordable 70/30 insulin which is commonly found at [facility] when outpatient -as of 06/20/19 glucose is being managed by subcutaneous 70/30 insulin as per pharmacy glycemic control -06/21/19 hospital insulin regimen as Novolin 70/30 insulin: 24 units w/ breakfast + 24 units with lunch -Discharge instructions: When patient at home, patient should take ReliOn 70/30 insulin: 30 units with breakfast and 20 units with dinner, continue Metformin for the macrovascular benefits Patient should stop taking at home Trulicity and stop taking at home Glimepiride Insulin paper prescription given for patient to be filled out at [facility]. patient given paper prescriptions for gluconometer, glucose test strips, lancets Patient has primary care doctor appointment 06/24/2019 1:10 PM Provider Derek Cleveland MD Department Family Practice [facility] Patient also will be messaged by [facility] outpatient team on following with diabetes control clinic (2) Hyperkalemia: -serum potassium of 6.3 on admission -hyperkalemia has resolved -serum potassium 3.5 on 06/20/19 and oral potassium given as target potassium levels should be between 3.5 to 4 -Hyperkalemia is a resolved issue (3) Acute kidney injury superimposed on chronic kidney disease: -admission creatinine was 1.9 -patient received IV fluids during this admission -elevated creatinine above baseline had resolved; Acute Kidney Injury resolved (4) Hypertension: -lisinopril 10 mg daily (5) Hyperlipidemia: -Continue statin admission CT abdomen 1. No acute process in the abdomen or pelvis. 2. Small fat-containing inguinal hernias with no evidence for bowel containment or incarceration. 3. Fatty infiltration of the liver unchanged. DVT Ppx: SQ Lovenox Code status: FULL Discharge Diagnosis: DKA (diabetic ketoacidoses), Hyperkalemia on admission (resolved), Acute kidney injury (resolved), Hypertension Subjective Patient seen and examined at bedside. No chest pain. no shortness of breath. no dizziness. no lightheadedness. no vomiting. no nausea. discharge plans discussed at length Review of Systems Review of Systems: All systems reviewed & are unremarkable except as noted in HPI & below Physical Exam Constitutional: comfortable Eyes: PERRL, conjunctivae normal, anicteric sclerae EOM intact bilaterally ENMT: external ear and nose normal, oropharynx normal Neck: normal visual inspection Respiratory: normal respiratory effort, lungs clear to auscultation Cardiovascular: Rate/Rhythm: regular rate and regular rhythm Gastrointestinal (Abdomen): normal bowel sounds, soft, nontender, no hepatosplenomegaly Musculoskeletal: Head/Neck/Chest: normocephalic and head atraumatic Neurologic: PERRL, EOMI, accommodation nl, no face palsy, no dysarthria CN's II-XI intact bilaterally Psychiatric: A+Ox3, euthymic affect Results & Data Vital Signs (Past 12 Hours) Vital Signs Temp Pulse Pulse Resp BP BP Pulse Ox 06/21/19 11:10 36.6 C 85 84 18 143/86 H 138/76 98 06/21/19 07:42 36.6 C 84 18 143/86 H 98 06/21/19 03:30 36.5 C 80 18 138/76 97 06/20/19 23:47 36.8 C 72 19 128/77 99 (1) DKA (diabetic ketoacidoses) Diabetes mellitus complication detail: with coma Diabetes mellitus type: type 2 Qualified Code(s): E11.11 - Type 2 diabetes mellitus with ketoacidosis with coma
--- NOTE | 2019-06-21 11:36 | Discharge Summary ---
Date of Service June 21, 2019 Admission HPI Per Admitting Provider This is a 59-year-old male with a PMH of uncontrolled type 2 diabetes, HTN and HLD who presents with worsening shortness of breath and weakness since yesterday. Patient recently transitioned to a different insurance and Trulicity was too expensive so patient had not taken diabetic medication in a few days. has history of uncontrolled DM II with most recent a1c on record of 10.7 in Mar 2019. Was previously on Lantus and NovoLog prior to insurance change. Patient began to feel poorly yesterday with progressive weakness and shortness of breath as well as nausea and vomiting since yesterday. EMS was called today and blood sugar was significantly elevated. Patient was brought to ED for further evaluation. Endorses increased thirst and urination as well as dull lower abdominal pain. Denies any fever, chills, lightheadedness, visual changes, chest pain, palpitations, dysuria, diarrhea or constipation. Has been admitted in the past for DKA in 2013 as well as an episode that occurred earlier this year. In the ED, patient was found to have elevated blood sugar at 668 with hyperkalemia of 6.3 and bicarb of 9. Initial creatinine 1.91 and anion gap of 27. ABG revealed pH of 7.15 with bicarb of 6. Was started on an insulin drip in the ED and was given albuterol and calcium as well as IV fluids. Repeat [id number] lab work performed a few hours later revealed downtrending blood glucose of 450, potassium of 5.3 and creatinine of 1.1. Patient has been making urine during time in ED. Chest x-ray and CT abdomen pelvis unremarkable for any acute changes. Blood cultures were obtained. Admission Exam Per Admitting Provider General Appearance: WD/WN, vitals as above, NAD, sitting up in bed, flushed, conversing easily Head: normocephalic, atraumatic Eyes: normal inspection, PERRL, conjunctivae normal, anicteric sclerae ENT: external ear and nose normal, oropharynx normal Neck: trachea midline, no thyromegaly normal visual inspection Respiratory: normal respiratory effort, lungs clear to auscultation, no wheeze, rales, rhonchi. Normal insp/exp effort, no accessory muscle use Cardiovascular: regular rate, rhythm, systolic murmur, normal peripheral pulses. Vessels: no JVD or carotid bruit Chest: normal inspection of chest Abdomen/GI: normal bowel sounds, soft, mildly tender in LLQ and RLQ, no guard ing, no hepatosplenomegaly Extremities/Musculoskelatal: no cyanosis or clubbing, extremities motor strength 5/5 Neurologic: PERRL, EOMI, accommodation nl, no face palsy, no dysarthria CN's II-XI intact bilaterally and moves all extremities Psychiatric: A+Ox3, euthymic affect Skin: no rashes, normal color, warm/dry Principal Diagnosis DKA (diabetic ketoacidoses), Hyperkalemia on admission (resolved), Acute kidney injury (resolved), Hypertension Discharge Exam Constitutional comfortable Eyes PERRL, conjunctivae normal, anicteric sclerae EOM intact bilaterally ENMT external ear and nose normal, oropharynx normal Neck normal visual inspection Respiratory normal respiratory effort, lungs clear to auscultation Cardiovascular Rate/Rhythm: regular rate and regular rhythm Gastrointestinal (Abdomen) normal bowel sounds, soft, nontender, no hepatosplenomegaly Musculoskeletal Head/Neck/Chest: normocephalic and head atraumatic Neurologic PERRL, EOMI, accommodation nl, no face palsy, no dysarthria CN's II-XI intact bilaterally Psychiatric A+Ox3, euthymic affect Discharge Data Allergies Allergy/AdvReac Type Severity Reaction Status Date / Time erythromycin base Allergy Mild Abdominal Verified 06/18/19 13:44 Pain Consultations 06/18/19 15:12 ED Decision to Admit Stat 06/18/19 16:37 Consult Case Management - Discharge Planning Routine Consult Transition Advisor Routine Ordered Studies 06/18/19 13:26 CT abd pelvis wo con Stat Hospital Course (1) DKA (diabetic ketoacidoses): -This is a 59-year-old male with a PMH of uncontrolled type 2 diabetes, HTN and HLD who presents with worsening shortness of breath and weakness who was admitted on 06/18/19 with hyperglycemia with serum glucose of 668 and aniong gap of 27, with arterial blood gas pH of 7.15 and serum bicarbonate of 6 that correlates with diabetic ketoacidosis; also initially with hyperkalemia with serum potassium of 6.3 -Patient was admitted to the Intensive Care Unit with DKA resolving with IV insulin drip and IV fluids -Patient has been transitioned to subcutaneous insulin as of 06/19/19 -Because patient was not on insulin at home, having trouble with obtaining any diabetes medications except for metformin, patient's blood sugars have been inadequately controlled at home and HBA1c is 13.4 -patient will be on subcutaneous insulin further while inpatient - currently on glargine and aspart as per pharmacy glycemic control - because of financial reasons patient likely will need to be discharge on affordable 70/30 insulin which is commonly found at [facility] when outpatient -as of 06/20/19 glucose is being managed by subcutaneous 70/30 insulin as per pharmacy glycemic control -06/21/19 hospital insulin regimen as Novolin 70/30 insulin: 24 units w/ breakfast + 24 units with lunch -Discharge instructions: When patient at home, patient should take ReliOn 70/30 insulin: 30 units with breakfast and 20 units with dinner, continue Metformin for the macrovascular benefits Patient should stop taking at home Trulicity and stop taking at home Glimepiride Insulin paper prescription given for patient to be filled out at [facility]. patient given paper prescriptions for gluconometer, glucose test strips, lancets Patient has primary care doctor appointment 06/24/2019 1:10 PM Provider Derek Cleveland MD Department Family Practice [facility] Patient also will be messaged by [facility] outpatient team on following with diabetes control clinic (2) Hyperkalemia: -serum potassium of 6.3 on admission -hyperkalemia has resolved -serum potassium 3.5 on 06/20/19 and oral potassium given as target potassium levels should be between 3.5 to 4 -Hyperkalemia is a resolved issue (3) Acute kidney injury superimposed on chronic kidney disease: -admission creatinine was 1.9 -patient received IV fluids during this admission -elevated creatinine above baseline had resolved; Acute Kidney Injury resolved (4) Hypertension: -lisinopril 10 mg daily (5) Hyperlipidemia: -Continue statin admission CT abdomen 1. No acute process in the abdomen or pelvis. 2. Small fat-containing inguinal hernias with no evidence for bowel containment or incarceration. 3. Fatty infiltration of the liver unchanged. DVT Ppx: SQ Lovenox Code status: FULL Discharge Diagnosis: DKA (diabetic ketoacidoses), Hyperkalemia on admission (resolved), Acute kidney injury (resolved), Hypertension Total Time Total Time Spent Total Time Spent (In Minutes): 40 Total Time Includes: Examination of the Patient, Discharge Planning, Medication Reconciliation and Communication With Other Providers Discharge Plan Discharge Items Patient Disposition: Home - Self-Care Reason For Visit: DKA Discharge Diagnosis: DKA (diabetic ketoacidoses), Hyperkalemia on admission (resolved), Acute kidney injury (resolved), Hypertension Condition on Discharge: Good Activity: Resume your previous activity Non-emergency contact: Primary Care Provider Call non-emergency contact if: you have any medication questions Follow-up/Referrals: Derek Cleveland MD [Primary Care Provider] - Diet: Carb Consistent or DM2 Addtl Attending Provider Instructions: short summary admitted on 06/18/19 with hyperglycemia with serum glucose of 668 in diabetic ketoacidosis and hyperkalemia HBA1c is 13.4 completed IV insulin in the Intensive Care Unit, subsequently transferred out of ICU on 06/20/19 and transitioned to subcutanous insulin 06/21/19 hospital insulin regimen as Novolin 70/30 insulin: 24 units w/ breakfast + 24 units with lunch Discharge instructions: When patient at home, patient should take ReliOn 70/30 insulin: 30 units with breakfast and 20 units with dinner, continue Metformin for the macrovascular benefits Patient should stop taking at home Trulicity and stop taking at home Glimepiride Insulin paper prescription given for patient to be filled out at [facility]. patient given paper prescriptions for gluconometer, glucose test strips, lancets Patient has primary care doctor appointment 06/24/2019 1:10 PM Provider Derek Cleveland MD Department Family Practice [facility] Patient also will be messaged by [facility] outpatient team on following with diabetes control clinic Pending Studies at Discharge: No Stand-Alone Forms: My Tysdo, Smoking Cessation Medications and DC Order Prescriptions: Continued atorvastatin 20 mg tablet 20 mg PO QAM RF: 0 metformin 1,000 mg tablet 1,000 mg PO BIDM RF: 0 lisinopril 10 mg tablet 10 mg PO QAM RF: 0 omeprazole 20 mg capsule,delayed release(DR/EC) 20 mg PO QAM RF: 0 Discontinued glimepiride 4 mg tablet 4 mg PO BID RF: 0 Trulicity 1.5 mg/0.5 mL Pen Injector 1.5 mg SUBCUT WK RF: 0 Discharge Orders: Discharge Order (Routine); Ordered 06/21/19 Ordered By: Otis Blas Admission Data Admit Date/Time: 06/18/19 15:37 Attending Provider: Otis Blas Admit Provider: Alonzo Van Primary Care Provider: Derek Cleveland Other Providers: Alonzo Van ; Heriberto Garcia Other Interventions: Discharge Summary Assessment (RN) Last Done: 06/21/19 11:10
--- NOTE | 2019-06-27 10:51 | Coding Query ---
To promote full compliance with coding requirements relating to patient care, provider participation is requested in all cases of bull gang worker uncertainty. Please assist us with the question(s) below: Coding Question(s): The diagnosis(es) below was documented in the Critical Care Consultation on 06/18/19 and Critical Care Progress Note on 06/19/19, then subsequently fell off all further documentation. Please indicate if it is still a possible diagnosis or ruled out. Physician's Response(s): NO PANCREATITIS PANCREATITIS ( ) Diagnosed and POA ( ) Diagnosed and not POA ( ) Ruled out ( ) Other (please specify) IF PANCREATITIS, PLEASE SPECIFY ( ) Acute Pancreatis ( ) Chronic Pancreatitis ( ) Other Pancreatitis, Please Specify MTDD
== END 2019-06-21 11:47 | disposition home or self-care (01) | DRG 638 ==
LOC: ED 12:36 → 1E 15:37 → SUATTDRO 15:37 → 1E 16:19 → 2N 06-19 13:18

== ENCOUNTER 2021-12-01 17:36 | Inpatient (IN) ==
--- NOTE | 2021-12-01 18:23 | Emergency Department Note ---
Impression & Plan Stroke-like episode ADMIT ED Provider Note HPI: The patient is a 61-year-old male who presents the emergency department today with multiple complaints. Patient states that for the past 3 days he has had some worsening back pain. He states that it does radiate at times to the bilateral flank area. Patient also states that today "around lunchtime" which she thinks was about 1 PM he began to develop a sensation as if he was "walking off to the right side". Patient states he mentioned the symptoms to his family doctor and he was recommended to come to the emergency room for further evaluation. On arrival here to the ED the patient is hemodynamically stable, he does not have any focal deficits, he does not display any ataxia on [id number] testing bilaterally or on [id number] testing bilaterally. He is otherwise in no acute distress on my initial evaluation. He denies any nausea or vomiting, denies any diarrhea, denies any chest pain or shortness of breath. ROS: -Neuro: Sensation of ataxia -GI: Back pain/lower abdominal pain *10 point review systems was conducted and is otherwise negative unless stated above *Outpatient medications and allergy history reviewed PE: General: Alert, NAD HEENT: Normocephalic, atraumatic Eyes: Extraocular eye movement is intact, no scleral erythema Pulmonary: Clear to auscultation bilaterally, no wheezing Cardio: Regular rate and rhythm GI: Abdomen is soft, moderate tenderness to palpation in the lower abdomen : No suprapubic tenderness MSK: No evidence of trauma or malformation of the extremities, no edema Skin: No evidence of rash Neuro: Alert, no focal deficits, no ataxia on finger-nose testing bilaterally, no ataxia on [id number] testing bilaterally, equal bilateral special procedures tech strength, symmetrical facial movement is Psychiatric: Cooperative ekg monitor tech: - An order was placed for continuous cardiac monitoring - Patient was noted to be in sinus rhythm with rate of 90 EKG: Rate: 81 Rhythm: Normal sinus rhythm Intervals: Within normal limits ST changes: No ST elevation Time: 181 NIH STROKE SCALE: 1A: Level of consciousness Alert; keenly responsive 0 1B: Ask month and age Both questions right 0 1C: 'Blink eyes' & 'squeeze hands' Performs both tasks 0 2: Horizontal extraocular movements Normal 0 3: Visual adams No visual loss 0 4: Facial palsy Normal symmetry 0 5A: Left arm motor drift No drift for 10 seconds 0 5B: Right arm motor drift No drift for 10 seconds 0 6A: Left leg motor drift No drift for 5 seconds 0 6B: Right leg motor drift No drift for 5 seconds 0 7: Limb Ataxia No ataxia 0 8: Sensation Normal; no sensory loss 0 9: Language/aphasia Normal; no aphasia 0 10: Dysarthria Normal 0 11: Extinction/inattention No abnormality 0 TOTAL NIH SCORE = 0 Medical Decision Making: Patient presented to the emergency department with a chief complaint of ataxia, lower back pain, has had some lower abdominal pain as well. Patient presents with ataxia that has been ongoing for about the past 5 to 6 hours, considered outside the window for potential tPA. He otherwise does not have any obvious focal deficits on exam, NIH stroke scale is 0. IV was established, lab work obtained, patient was placed on ekg monitor tech, CT imaging of the head does not show any evidence of any acute intracranial process, CT angiography does show evidence of some areas of focal stenosis without any evidence of an acute stroke or large vessel occlusion. CT imaging of the abdomen pelvis shows some perinephric stranding on the right side, nonspecific, urinalysis does not show any evidence of infection. Lab work is otherwise generally unremarkable, no critical electrolyte abnormalities are noted, no leukocytosis, stable hemoglobin, patient does have hyperglycemia without any evidence of DKA. On my reassessment the patient states that his pain is improving, unclear source for his abdominal discomfort at this time, in regards to the patient's ataxia he was ambulated in the hallway and he states it is not as severe as previous he still does have a sensation as if he is falling off to the right side. He has multiple risk factors including age, hypertension, history of diabetes, history of smoking, I feel that he is high risk for discharge and would benefit from admission and secondary stroke work-up and likely MRI imaging of the brain. Patient was given aspirin in the ED. [facility] and the patient was admitted in stable condition for further care. Diagnosis: 1. Sensation of ataxia with ambulation 2. Back pain acute on chronic 3. Lower abdominal pain, acute 4. Hyperglycemia 5. Hypertension 6. History of tobacco use Disposition: Admission Zbigniew Brown DO Emergency Medicine Past Med/Surg History Medical History Carpal tunnel syndrome Diabetes DKA (diabetic ketoacidoses) Hyperkalemia Hyperlipidemia Hypertension Irritable bowel syndrome Tobacco use Surgical History History of carpal tunnel surgery History of foot surgery Family History Other Diabetes Heart disease Social History Smoking Status: Current every day smoker Tobacco Type: Cigarettes Cigarettes Per Day: Previously had quit for 8 years but resumed smoking 5 cig/day last month; Second Hand Exposure: Yes; Hx Alcohol Use: No Hx Substance Use: No Preferred Language: Albanian Communication Ability: Effective [employer] Coordinator Required: No Beliefs That Will Affect Care: None Current Living Situation: Spouse Feels Safe at Home: Yes Assistive Devices: None Allergies Allergies Allergy/AdvReac Type Severity Reaction Status Date / Time erythromycin base Allergy Mild Abdominal Verified 12/01/21 21:15 Pain Home Meds Home Medications Medication Instructions Recorded Confirmed metformin 1,000 mg tablet 1,000 mg PO BIDM 03/11/19 12/01/21 omeprazole 20 mg capsule,delayed 20 mg PO QAM 03/11/19 12/01/21 release aspirin 81 mg tablet,delayed 81 mg PO QAM 06/17/20 12/01/21 release insulin aspart U-100 100 unit/mL See Rx Instructions .ROUTE .COMPLEX 06/17/20 12/01/21 (3 mL) subcutaneous pen (Novolog Flexpen U-100 Insulin aspart) multivitamin 1 tab PO QAM 06/17/20 12/01/21 metoprolol succinate 25 mg 12.5 mg PO DAILY 09/19/20 12/01/21 tablet,extended release 24 hr acetaminophen 500 mg tablet 500 mg PO Q6H PRN 08/01/21 12/01/21 (Acetaminophen Extra Strength) insulin glargine 100 unit/mL (3 36 unit SUBCUT HS 08/01/21 12/01/21 mL) subcutaneous pen (Lantus Solostar U-100 Insulin) albuterol sulfate 90 mcg/actuation 2 puff INHALATION Q4 PRN 12/01/21 12/01/21 aerosol inhaler (Ventolin HFA) atorvastatin 40 mg tablet 40 mg PO DAILY 12/01/21 12/01/21 calcium carbonate 200 mg calcium 200 mg PO DAILY PRN 12/01/21 12/01/21 (500 mg) chewable tablet (Calcium Antacid) dulaglutide 0.75 mg/0.5 mL 0.75 mg SUBCUT WK 12/01/21 12/01/21 subcutaneous pen injector empagliflozin 10 mg tablet 10 mg PO DAILY 12/01/21 12/01/21 losartan 50 mg tablet 50 mg PO DAILY 12/01/21 12/01/21 Results & Data (ED) Vital Signs Vital Signs - 24 hr 12/01/21 17:42 12/01/21 17:46 12/01/21 19:09 Temperature 36.6 C Temperature Source Temporal Artery Scan Pulse Rate 91 H 73 Pulse Rate from SpO2 Sensor 73 Pulse Rhythm Regular Pulse Strength Normal Respiratory Rate 18 15 Respiratory Effort / Characteristics Non-Labored Spontaneous Respiratory Depth Normal Respiratory Pattern Regular Blood Pressure 168/89 H Blood Pressure Mean 115 Blood Pressure Position Sitting Pulse Oximetry 98 97 Oxygen Delivery Method Room Air Room Air Sepsis Recent Fever Within 48 Hours No Sepsis New/Unexplained Change in Mental Status No Sepsis Action Taken by Nursing No Action Required 12/01/21 19:10 12/01/21 19:20 12/01/21 21:02 Temperature Temperature Source Pulse Rate 80 77 98 H Pulse Rate from SpO2 Sensor 81 77 Pulse Rhythm Pulse Strength Respiratory Rate 19 15 25 H Respiratory Effort / Characteristics Respiratory Depth Respiratory Pattern Blood Pressure 159/79 H Blood Pressure Mean 105 Blood Pressure Position Pulse Oximetry 97 98 97 Oxygen Delivery Method Sepsis Recent Fever Within 48 Hours Sepsis New/Unexplained Change in Mental Status Sepsis Action Taken by Nursing 12/01/21 21:10 Temperature Temperature Source Pulse Rate 87 Pulse Rate from SpO2 Sensor Pulse Rhythm Pulse Strength Respiratory Rate 21 Respiratory Effort / Characteristics Respiratory Depth Respiratory Pattern Blood Pressure Blood Pressure Mean Blood Pressure Position Pulse Oximetry Oxygen Delivery Method Sepsis Recent Fever Within 48 Hours Sepsis New/Unexplained Change in Mental Status Sepsis Action Taken by Nursing Laboratory Data Result diagrams: 12/01/21 18:28 12/01/21 18:28 Lab Results 12/01/21 12/01/21 12/01/21 Range/Units 18:28 18:28 18:28 WBC 7.64 (4.8-10.8) K/uL RBC 5.04 (4.7-6.1) M/uL Hgb 16.1 (14.0-18.0) g/dL Hct 44.3 (42-52) % MCV 87.9 (80-100) fL MCH 31.9 (25-34) pg MCHC 36.3 H (32-36) g/dL RDW Std Deviation 43.6 (36.4-46.3) fL RDW Coeff of Mariah 13.5 (11.5-14.5) % Plt Count 183 (130-400) K/uL MPV 10.9 H (7.4-10.4) fL Immature Gran % (Auto) 0.1 % Neut % (Auto) 65.2 % Lymph % (Auto) 25.9 % Casey % (Auto) 7.5 % Eos % (Auto) 1.2 % Baso % (Auto) 0.1 % Neut # (Auto) 4.98 (1.4-6.5) K/uL Lymph # (Auto) 1.98 (1.2-3.4) K/uL Casey # (Auto) 0.57 (0.11-0.59) K/uL Eos # (Auto) 0.09 (0-0.5) K/uL Baso # (Auto) 0.01 (0-0.2) K/uL Immature Gran # (Auto) 0.01 (0.00-0.02) K/uL PT 10.4 (9.0-12.0) Seconds INR 1.0 (0.9-1.1) APTT 25.6 (21.0-31.0) Seconds PTT Ratio 0.9 Sodium (136-145) mmol/L Potassium (3.5-5.1) mmol/L Chloride (98-107) mmol/L Carbon Dioxide (21-32) mmol/L Anion Gap (3-11) BUN (6-23) mg/dl Creatinine (0.6-1.4) mg/dl Est Cr Clr Drug Dosing ml/min Est GFR ( Amer) ml/min Est GFR (Non-Af Amer) ml/min BUN/Creatinine Ratio (10-20) Glucose (70-99(Fasting)) mg/dl Calcium (8.5-10.1) mg/dl Magnesium (1.7-2.4) mg/dl Total Bilirubin (0.2-1.0) mg/dl AST (13-39) U/L ALT (7-52) U/L Alkaline Phosphatase (34-104) U/L Troponin I High Sens (0-20) pg/ml Total Protein (6.0-8.3) gm/dl Albumin (3.4-5.0) gm/dl Globulin (2.5-4.0) gm/dl Albumin/Globulin Ratio (0.9-2) Urine Color Urine Appearance (Clear) Urine pH (4.5-7.5) Ur Specific [place] (1.000-1.030) Urine Protein (Negative) Urine Glucose (UA) (Negative) Urine Ketones (Negative) Urine Blood (Negative) Urine Nitrite (Negative) Urine Bilirubin (Negative) Urine Urobilinogen (Negative) Ur Leukocyte Esterase (Negative) Urine WBC (Auto) (0-5) /hpf Urine RBC (Auto) (0-4) /hpf U Hyaline Cast (Auto) (0-5) /lpf U Epithel Cells (Auto) (0-5) /lpf Urine Bacteria (Auto) (Negative) SARS-CoV-2, RNA, NAAT (NEGATIVE) Blood Type O Positive Antibody Screen NEGATIVE 12/01/21 12/01/21 12/01/21 Range/Units 18:28 20:53 20:53 WBC (4.8-10.8) K/uL RBC (4.7-6.1) M/uL Hgb (14.0-18.0) g/dL Hct (42-52) % MCV (80-100) fL MCH (25-34) pg MCHC (32-36) g/dL RDW Std Deviation (36.4-46.3) fL RDW Coeff of Mariah (11.5-14.5) % Plt Count (130-400) K/uL MPV (7.4-10.4) fL Immature Gran % (Auto) % Neut % (Auto) % Lymph % (Auto) % Casey % (Auto) % Eos % (Auto) % Baso % (Auto) % Neut # (Auto) (1.4-6.5) K/uL Lymph # (Auto) (1.2-3.4) K/uL Casey # (Auto) (0.11-0.59) K/uL Eos # (Auto) (0-0.5) K/uL Baso # (Auto) (0-0.2) K/uL Immature Gran # (Auto) (0.00-0.02) K/uL PT (9.0-12.0) Seconds INR (0.9-1.1) APTT (21.0-31.0) Seconds PTT Ratio Sodium 136 (136-145) mmol/L Potassium 4.0 (3.5-5.1) mmol/L Chloride 104 (98-107) mmol/L Carbon Dioxide 25 (21-32) mmol/L Anion Gap 7 (3-11) BUN 32 H (6-23) mg/dl Creatinine 1.09 (0.6-1.4) mg/dl Est Cr Clr Drug Dosing 67.6 ml/min Est GFR ( Amer) 85.7 ml/min Est GFR (Non-Af Amer) 73.9 ml/min BUN/Creatinine Ratio 29.4 H (10-20) Glucose 301 H* (70-99(Fasting)) mg/dl Calcium 10.2 H (8.5-10.1) mg/dl Magnesium 2.0 (1.7-2.4) mg/dl Total Bilirubin 0.4 (0.2-1.0) mg/dl AST 14 (13-39) U/L ALT 18 (7-52) U/L Alkaline Phosphatase 123 H (34-104) U/L Troponin I High Sens 8.8 (0-20) pg/ml Total Protein 7.7 (6.0-8.3) gm/dl Albumin 4.3 (3.4-5.0) gm/dl Globulin 3.4 (2.5-4.0) gm/dl Albumin/Globulin Ratio 1.3 (0.9-2) Urine Color Yellow Urine Appearance Clear (Clear) Urine pH 6.0 (4.5-7.5) Ur Specific [place] > 1.045 H (1.000-1.030) Urine Protein Trace H (Negative) Urine Glucose (UA) 2+ H (Negative) Urine Ketones Trace H (Negative) Urine Blood Negative (Negative) Urine Nitrite Negative (Negative) Urine Bilirubin Negative (Negative) Urine Urobilinogen Negative (Negative) Ur Leukocyte Esterase Negative (Negative) Urine WBC (Auto) 0 (0-5) /hpf Urine RBC (Auto) 0-4 (0-4) /hpf U Hyaline Cast (Auto) 0 (0-5) /lpf U Epithel Cells (Auto) 0-5 (0-5) /lpf Urine Bacteria (Auto) Negative (Negative) SARS-CoV-2, RNA, NAAT NEGATIVE (NEGATIVE) Blood Type Antibody Screen Administered Medications Discontinued Medications Aspirin (Aspirin Chew 324 Mg) 324 mg PO NOW STA Stop: 12/01/21 20:49 Last Admin: 12/01/21 20:56 Dose: 324 mg Documented by: [id number] Ioversol (Optiray 320 125ml) 119 ml IV ONCE ONE Stop: 12/01/21 19:54 Last Admin: 12/01/21 19:53 Dose: 119 ml Documented by: [id number] Imaging Data Radiologist's Impression: Abdomen/Pelvis CT 12/01/21 18:[address] WITHOUT CONTRAST CT DOSE: 1452.85 mGy.cm HISTORY: back pain, flank pain, eval for stone,eval L spine TECHNIQUE: Multiaxial CT images of the abdomen and pelvis were performed without contrast. A dose lowering technique was utilized adhering to the principles of ALARA. COMPARISON STUDY: Abdomen and pelvis CT 06/18/2019. FINDINGS: Stable subcentimeter nodules within the lung bases with the largest in the left lower lobe measuring 8 mm. These are likely benign given the long-term stability. Interstitial thickening at the lung bases with mild traction bronchiectasis suggestive of chronic fibrotic change. This has progressed in the interval. No pneumoperitoneum. No pneumatosis. No fractures within the visualized osseous structures. There is a 4 mm hypodense lesion within the right hepatic lobe. This is technically too small to characterize. The unenhanced gallbladder, spleen, adrenal glands, and pancreas unremarkable. There is moderate bilateral perinephric edema which has progressed. No hydronephrosis. No renal or ureteral stones. Mild bladder wall thickening. No retroperitoneal lymphadenopathy. Moderate calcified plaque within the normal caliber abdominal aorta. No pelvic free fluid. The prostate gland is mildly enlarged. Suboptimal evaluation for bowel pathology due to the lack of intravenous and oral contrast. However, there is no definite bowel wall thickening or obstruction. Normal appendix. IMPRESSION: 1. Moderate bilateral perinephric edema which has progressed. This is likely chronic and could be due to chronic renal failure. A superimposed pyelonephritis or glomerulonephritis could also have a similar appearance in the appropriate clinical setting. Recommend correlate with urinalysis. 2. Mild bladder wall thickening, unchanged. This is also likely chronic from the enlarged prostate gland. 3. Interstitial thickening at the lung bases suggestive chronic fibrotic change. This has progressed in the interval. 4. Stable subcentimeter pulmonary nodule within the lung bases. These are likely benign given the long-term stability. 5. No bowel wall thickening or obstruction. 6. Normal appendix. 7. No hydronephrosis. ACT 112: Negative or not required by law. Electronically signed by: Abiodun Darnell M.D. 12/01/2021 8:26 PM Chest X-Ray 12/01/21 18:20 XR chest 1V portable CLINICAL HISTORY: Stroke Like Symptoms COMPARISON STUDY: Chest radiograph August 01, 2021. FINDINGS: Lung volumes are normal. No pneumothorax or pleural effusion is present. No evidence for pulmonary edema. Cardiac size is normal. Mediastinal contours are normal. Lower lung reticulonodular interstitial thickening has slightly progressed. IMPRESSION: Slight progression of lower lung reticulonodular interstitial thickening. This could reflect an infectious process or progression of interstitial lung disease. ACT 112: Negative or not required by law. Electronically signed by: Cassius Perez M.D. 12/01/2021 8:[address] 12/01/21 18:[address] DOSE: HISTORY: Stroke Like Symptoms TECHNIQUE: Multiaxial CT images of the head were performed without the use of intravenous contrast. Automated exposure control was utilized for this study. A dose lowering technique was utilized adhering to the principles of ALARA. Comparison: Head CT 09/19/2020. Findings: The paranasal sinuses and mastoid air cells are clear. The calvarium and skull base are intact. The ventricles and sulci are within normal limits. There is no mass, hematoma, midline shift, or acute infarct. Impression: No acute intracranial abnormality. ACT 112: Negative or not required by law. Electronically signed by: Abiodun Darnell M.D. 12/01/2021 8:10 PM Head CTA 12/01/21 18:20 HEAD & NECK CTA HISTORY: Stroke Like Symptoms TECHNIQUE: Multiaxial CT images of the head were performed following the the intravenous administration of contrast to evaluate the major cerebral vessels. Multiaxial CT images of the neck were also performed following the intravenous administration of contrast to evaluate the major cervical vessels. Maximum intensity projection images were also obtained. A dose lowering technique was utilized adhering to the principles of ALARA. COMPARISON: None. FINDINGS: There is no mass, hematoma, midline shift, or acute infarct. Visualized intracranial internal carotid artery, distal vertebral arteries, and basilar artery are widely patent. There is no significant stenosis or occlusion seen wit hin the bilateral ACAs, MCAs, or auto electrician. Major dural venous sinuses are patent. There is up to 70% focal stenosis within the ophthalmic segment of the left intracranial internal carotid artery best seen on image 43 due to the calcified plaque. There is a 1.5 mm saccular aneurysm within the supraclinoid left ICA. This is best seen on axial image 50. The aortic arch and proximal great vessels are widely patent. There is no significant stenosis, occlusion, or dissection identified within the bilateral common carotid, internal carotid, or vertebral arteries. There is a 5 mm nodule within the right lung apex on image 33. Moderate calcified plaque within the left carotid bifurcation and mild calcified plaque within the right carotid bifurcation. IMPRESSION: 1. Approximately 70% focal stenosis within the ophthalmic segment of the the left intracranial internal carotid artery due to the calcified plaque. 2. 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 3. No significant stenosis or occlusion within the bilateral ACAs, MCAs, auto electrician. 4. No significant stenosis, occlusion, or dissection identified within the carotid or vertebral arteries. 5. A 5 mm indeterminate pulmonary nodule within the right lung apex. Please refer to below summary of Fleischner criteria recommendations for follow- up of incidental CT nodules (Rd Arce, Guidelines for management of small pulmonary nodules detected on CT scans: A statement from the Fleischner S ociety, Radiology 237: [phone].) SOLID NODULES Solitary nodule size: <6 mm * Low risk patients: no follow-up needed * high risk patients: optional CT at 12 months Solitary nodule size: 6-8 mm * Low risk patients: follow-up at 6-12 months, then consider further follow-up at 18-24 months * high risk patients: initial follow-up CT at 6-12 months and then at 18-24 months if no change Solitary nodule size: >8 mm * either low or high risk patients - consider follow-up CT at 3 months, and/or CT-PET, and/or biopsy Multiple nodules size: <6 mm * Low risk patients: no routine follow-up * high risk patients: optional CT at 12 months Multiple nodules size: 6-8 mm * Low risk patients: follow-up at 3-6 months, then consider further follow-up at 18-24 months * high risk patients: follow-up at 3-6 months, then at 18-24 months if no change Multiple nodules size: >8 mm * Low risk patients: follow-up at 3-6 months, then consider further follow-up at 18-24 months * high risk patients: follow-up at 3-6 months, then at 18-24 months if no change Note: newly detected indeterminate nodule in persons 35 years of age or older. * Low risk patients: minimal or absent history of smoking and/or other known risk factors * high risk patients: history of smoking or of other known risk factors (e.g. first degree relative with lung cancer, or exposure to asbestos, radon, uranium) * if a nodule up to 8 mm is partly solid or is ground glass further follow-up is required after 24 months to exclude possible slow growing adenocarcinoma (MICHEAL) SUBSOLID NODULES Solitary pure ground-glass nodule * nodule size <6 mm - no CT follow-up required * nodule size >=6 mm - follow-up CT at 6-12 months, then every 2 years until 5 years Solitary part-solid nodule * nodule size <6 mm - no CT follow-up required * nodule size >=6 mm - follow-up CT at 3-6 months. If unchanged, and solid component remains <6 mm, then annual follow-up for 5 years Multiple subsolid nodules * nodule size <6 mm - follow-up CT at 3-6 months, consider further follow-up at 2 and 4 years if stable * nodule size >=6 mm - follow-up CT at 3-6 months, subsequent management based on the most suspicious nodule(s) ACT 112: Negative or not required by law. Electronically signed by: Abiodun Darnell M.D. 12/01/2021 8:17 PM Neck CTA 12/01/21 18:20 HEAD & NECK CTA HISTORY: Stroke Like Symptoms TECHNIQUE: Multiaxial CT images of the head were performed following the the intravenous administration of contrast to evaluate the major cerebral vessels. Multiaxial CT images of the neck were also performed following the intravenous administration of contrast to evaluate the major cervical vessels. Maximum intensity projection images were also obtained. A dose lowering technique was utilized adhering to the principles of ALARA. COMPARISON: None. FINDINGS: There is no mass, hematoma, midline shift, or acute infarct. Visualized intracranial internal carotid artery, distal vertebral arteries, and basilar artery are widely patent. There is no significant stenosis or occlusion seen within the bilateral ACAs, MCAs, or auto electrician. Major dural venous sinuses are patent. There is up to 70% focal stenosis within the ophthalmic segment of the left intracranial internal carotid artery best seen on image 43 due to the calcified plaque. There is a 1.5 mm saccular aneurysm within the supraclinoid left ICA. This is best seen on axial image 50. The aortic arch and proximal great vessels are widely patent. There is no significant stenosis, occlusion, or dissection identified within the bilateral common carotid, internal carotid, or vertebral arteries. There is a 5 mm nodule within the right lung apex on image 33. Moderate calcified plaque within the left carotid bifurcation and mild calcified plaque within the right carotid bifurcation. IMPRESSION: 1. Approximately 70% focal stenosis within the ophthalmic segment of the the left intracranial internal carotid artery due to the calcified plaque. 2. 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 3. No significant stenosis or occlusion within the bilateral ACAs, MCAs, auto electrician. 4. No significant stenosis, occlusion, or dissection identified within the carotid or vertebral arteries. 5. A 5 mm indeterminate pulmonary nodule within the right lung apex. Please refer to below summary of Fleischner criteria recommendations for follow- up of incidental CT nodules (Rd Arce, Guidelines for management of small pulmonary nodules detected on CT scans: A statement from the Fleischner Society, Radiology 237: [phone].) SOLID NODULES Solitary nodule size: <6 mm * Low risk patients: no follow-up needed * high risk patients: optional CT at 12 months Solitary nodule size: 6-8 mm * Low risk patients: follow-up at 6-12 months, then consider further follow-up at 18-24 months * high risk patients: initial follow-up CT at 6-12 months and then at 18-24 months if no change Solitary nodule size: >8 mm * either low or high risk patients - consider follow-up CT at 3 months, and/or CT-PET, and/or biopsy Multiple nodules size: <6 mm * Low risk patients: no routine follow-up * high risk patients: optional CT at 12 months Multiple nodules size: 6-8 mm * Low risk patients: follow-up at 3-6 months, then consider further follow-up at 18-24 months * high risk patients: follow-up at 3-6 months, then at 18-24 months if no ch denis Multiple nodules size: >8 mm * Low risk patients: follow-up at 3-6 months, then consider further follow-up at 18-24 months * high risk patients: follow-up at 3-6 months, then at 18-24 months if no change Note: newly detected indeterminate nodule in persons 35 years of age or older. * Low risk patients: minimal or absent history of smoking and/or other known risk factors * high risk patients: history of smoking or of other known risk factors (e.g. first degree relative with lung cancer, or exposure to asbestos, radon, uranium) * if a nodule up to 8 mm is partly solid or is ground glass further follow-up is required after 24 months to exclude possible slow growing adenocarcinoma (MICHEAL) SUBSOLID NODULES Solitary pure ground-glass nodule * nodule size <6 mm - no CT follow-up required * nodule size >=6 mm - follow-up CT at 6-12 months, then every 2 years until 5 years Solitary part-solid nodule * nodule size <6 mm - no CT follow-up required * nodule size >=6 mm - follow-up CT at 3-6 months. If unchanged, and solid component remains <6 mm, then annual follow-up for 5 years Multiple subsolid nodules * nodule size <6 mm - follow-up CT at 3-6 months, consider further follow-up at 2 and 4 years if stable * nodule size >=6 mm - follow-up CT at 3-6 months, subsequent management based on the most suspicious nodule(s) ACT 112: Negative or not required by law. Electronically signed by: Abiodun Darnell M.D. 12/01/2021 8:17 PM Discharge Plan Visit Data Chief Complaint: Back Injury/Pain Stated Complaint: LOWER BACK PAIN ED Provider: Zbigniew Brown Discharge Problem: Stroke-like episode Forms Stand Alone Forms: [employer] Prescriptions Prescriptions: No Action metformin 1,000 mg tablet 1,000 mg PO BIDM RF: 0 omeprazole 20 mg capsule,delayed release(DR/EC) 20 mg PO QAM RF: 0 multivitamin Tablet 1 tab PO QAM RF: 0 aspirin [Aspir-81] 81 mg Tablet,Delayed Release (Dr/Ec) 81 mg PO QAM RF: 0 insulin aspart U-100 [Novolog Flexpen U-100 Insulin] 100 unit/mL (3 mL) insulin pen See Rx Instructions .ROUTE .COMPLEX RF: 0 acetaminophen [Acetaminophen Extra Strength] 500 mg Tablet 500 mg PO Q6H PRN (Reason: Pain) RF: 0 Lantus Solostar U-100 Insulin 100 unit/mL (3 mL) insulin pen 36 unit SUBCUT HS RF: 0 losartan 50 mg tablet 50 mg PO DAILY RF: 0 atorvastatin 40 mg tablet 40 mg PO DAILY RF: 0 calcium carbonate [Calcium Antacid] 200 mg calcium (500 mg) Tablet,Chewable 200 mg PO DAILY PRN (Reason: Gi Upset) RF: 0 albuterol sulfate [Ventolin HFA] 90 mcg/actuation Hfa Aerosol Inhaler 2 puff INHALATION Q4 PRN (Reason: Shortness Of Breath Or Wheezing) RF: 0 empagliflozin 10 mg Tablet 10 mg PO DAILY RF: 0 dulaglutide 0.75 mg/0.5 mL Pen Injector 0.75 mg SUBCUT WK RF: 0 metoprolol succinate 25 mg tablet extended release 24 hr 12.5 mg PO DAILY RF: 0 Referrals Referrals: Anabel Ortiz MD [Primary Care Provider] -
[2021-12-01 18:44] LABS: Basophils # (auto) 0.01 K/uL (0-0.2); Basophils % (auto) 0.1 %; Eosinophils # (auto) 0.09 K/uL (0-0.5); Eosinophils % (auto) 1.2 %; Hematocrit (blood only) 44.3 % (42-52); Hemoglobin 16.1 g/dL (14.0-18.0); Immature Granulocytes # (auto) 0.01 K/uL (0.00-0.02); Immature Granulocytes % (auto) 0.1 %; Lymphocytes # (auto) 1.98 K/uL (1.2-3.4); Lymphocytes % (auto) 25.9 %; Mean Corpuscular Hemoglobin 31.9 pg (25-34); Mean Corpuscular Hgb Conc 36.3 g/dL (32-36); Mean Corpuscular Volume 87.9 fL (80-100); Mean Platelet Volume 10.9 fL (7.4-10.4); Monocytes # (auto) 0.57 K/uL (0.11-0.59); Monocytes % (auto) 7.5 %; Neutrophils # (auto) 4.98 K/uL (1.4-6.5); Neutrophils % (auto) 65.2 %; Platelet Count 183 K/uL (130-400); RDW Coefficient of Variation 13.5 % (11.5-14.5); RDW Standard Deviation 43.6 fL (36.4-46.3); Red Blood Count 5.04 M/uL (4.7-6.1); White Blood Count 7.64 K/uL (4.8-10.8)
[2021-12-01 18:53] LABS: Partial Thromboplastin Ratio 0.9; Partial Thromboplastin Time 25.6 Seconds (21.0-31.0); Prothrombin Time 10.4 Seconds (9.0-12.0)
[2021-12-01 19:06] LABS: Albumin Globulin Ratio 1.3 (0.9-2); Albumin Level 4.3 gm/dl (3.4-5.0); BUN Creatinine Ratio 29.4 (10-20); Bilirubin,Total 0.4 mg/dl (0.2-1.0); Calcium 10.2 mg/dl (8.5-10.1); Creatinine Clr Calc Pharmacy 67.6 ml/min; Est GFR (African American) 85.7 ml/min; Est GFR (Non-African American) 73.9 ml/min; Globulin 3.4 gm/dl (2.5-4.0); Total Protein 7.7 gm/dl (6.0-8.3)
[2021-12-01 19:11] LABS: Troponin I High Sensitivity 8.8 pg/ml (0-20)
[2021-12-01] MEDS ORDERED: OPTIRAY 320 125ml IV ONE (19:53)
--- NOTE | 2021-12-01 20:11 | CT Scan Report ---
HEAD CT NONCONTRAST CT DOSE: HISTORY: Stroke Like Symptoms TECHNIQUE: Multiaxial CT images of the head were performed without the use of intravenous contrast. A utomated exposure control was utilized for this study. A dose lowering technique was utilized adheri ng to the principles of ALARA. Comparison: Head CT 09/19/2020. Findings: The paranasal sinuses and mastoid air cells are clear. The calvarium and skull base are int act. The ventricles and sulci are within normal limits. There is no mass, hematoma, midline shift, or acute infarct. Impression: No acute intracranial abnormality. ACT 112: Negative or not required by law. Electronically signed by: Abiodun Darnell M.D. 12/01/2021 8:10 PM
--- NOTE | 2021-12-01 20:19 | XRay Report ---
XR chest 1V portable CLINICAL HISTORY: Stroke Like Symptoms COMPARISON STUDY: Chest radiograph August 01, 2021. FINDINGS: Lung volumes are normal. No pneumothorax or pleural effusion is present. No evidence for pu lmonary edema. Cardiac size is normal. Mediastinal contours are normal. Lower lung reticulonodular in terstitial thickening has slightly progressed. IMPRESSION: Slight progression of lower lung reticulonodular interstitial thickening. This could ref lect an infectious process or progression of interstitial lung disease. ACT 112: Negative or not required by law. Electronically signed by: Cassius Perez M.D. 12/01/2021 8:16 PM
--- NOTE | 2021-12-01 20:19 | CT Scan Report ---
HEAD & NECK CTA HISTORY: Stroke Like Symptoms TECHNIQUE: Multiaxial CT images of the head were performed following the the intravenous administrati on of contrast to evaluate the major cerebral vessels. Multiaxial CT images of the neck were also per formed following the intravenous administration of contrast to evaluate the major cervical vessels. M aximum intensity projection images were also obtained. A dose lowering technique was utilized adherin g to the principles of ALARA. COMPARISON: None. FINDINGS: There is no mass, hematoma, midline shift, or acute infarct. Visualized intracranial internal carotid artery, distal vertebral arteries, and basilar artery are widely patent. There is no significant dalia nosis or occlusion seen within the bilateral ACAs, MCAs, or delivery professional. Major dural venous sinuses are beck nt. There is up to 70% focal stenosis within the ophthalmic segment of the left intracranial internal carotid artery best seen on image 43 due to the calcified plaque. There is a 1.5 mm saccular aneurys m within the supraclinoid left ICA. This is best seen on axial image 50. The aortic arch and proximal great vessels are widely patent. There is no significant stenosis, occ lusion, or dissection identified within the bilateral common carotid, internal carotid, or vertebral arteries. There is a 5 mm nodule within the right lung apex on image 33. Moderate calcified plaque wi thin the left carotid bifurcation and mild calcified plaque within the right carotid bifurcation. IMPRESSION: 1. Approximately 70% focal stenosis within the ophthalmic segment of the the left intracranial learning and development intern al carotid artery due to the calcified plaque. 2. 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 3. No significant stenosis or occlusion within the bilateral ACAs, MCAs, delivery professional. 4. No significant stenosis, occlusion, or dissection identified within the carotid or vertebral arter ies. 5. A 5 mm indeterminate pulmonary nodule within the right lung apex. Please refer to below summary of Fleischner criteria recommendations for follow-up of incidental CT n odules (Rd Arce, Guidelines for management of small pulmonary nodules detected on CT scans: A sta tement from the Fleischner Society, Radiology 237: [phone].) SOLID NODULES Solitary nodule size: <6 mm * Low risk patients: no follow-up needed * high risk patients: optional CT at 12 months Solitary nodule size: 6-8 mm * Low risk patients: follow-up at 6-12 months, then consider further follow-up at 18-24 months * high risk patients: initial follow-up CT at 6-12 months and then at 18-24 months if no change Solitary nodule size: >8 mm * either low or high risk patients - consider follow-up CT at 3 months, and/or CT-PET, and/or biopsy Multiple nodules size: <6 mm * Low risk patients: no routine follow-up * high risk patients: optional CT at 12 months Multiple nodules size: 6-8 mm * Low risk patients: follow-up at 3-6 months, then consider further follow-up at 18-24 months * high risk patients: follow-up at 3-6 months, then at 18-24 months if no change Multiple nodules size: >8 mm * Low risk patients: follow-up at 3-6 months, then consider further follow-up at 18-24 months * high risk patients: follow-up at 3-6 months, then at 18-24 months if no change Note: newly detected indeterminate nodule in persons 35 years of age or older. * Low risk patients: minimal or absent history of smoking and/or other known risk factors * high risk patients: history of smoking or of other known risk factors (e.g. first degree relative with lung cancer, or exposure to asbestos, radon, uranium) * if a nodule up to 8 mm is partly solid or is ground glass further follow-up is required after 24 m onths to exclude possible slow growing adenocarcinoma (MICHEAL) SUBSOLID NODULES Solitary pure ground-glass nodule * nodule size <6 mm - no CT follow-up required * nodule size >=6 mm - follow-up CT at 6-12 months, then every 2 years until 5 years Solitary part-solid nodule * nodule size <6 mm - no CT follow-up required * nodule size >=6 mm - follow-up CT at 3-6 months. If unchanged, and solid component remains <6 mm, then annual follow-up for 5 years Multiple subsolid nodules * nodule size <6 mm - follow-up CT at 3-6 months, consider further follow-up at 2 and 4 years if sta ble * nodule size >=6 mm - follow-up CT at 3-6 months, subsequent management based on the most suspiciou s nodule(s) ACT 112: Negative or not required by law. Electronically signed by: Abiodun Darnell M.D. 12/01/2021 8:17 PM
--- NOTE | 2021-12-01 20:19 | CT Scan Report ---
HEAD & NECK CTA HISTORY: Stroke Like Symptoms TECHNIQUE: Multiaxial CT images of the head were performed following the the intravenous administrati on of contrast to evaluate the major cerebral vessels. Multiaxial CT images of the neck were also per formed following the intravenous administration of contrast to evaluate the major cervical vessels. M aximum intensity projection images were also obtained. A dose lowering technique was utilized adherin g to the principles of ALARA. COMPARISON: None. FINDINGS: There is no mass, hematoma, midline shift, or acute infarct. Visualized intracranial internal carotid artery, distal vertebral arteries, and basilar artery are widely patent. There is no significant dalia nosis or occlusion seen within the bilateral ACAs, MCAs, or tuck pointer. Major dural venous sinuses are beck nt. There is up to 70% focal stenosis within the ophthalmic segment of the left intracranial internal carotid artery best seen on image 43 due to the calcified plaque. There is a 1.5 mm saccular aneurys m within the supraclinoid left ICA. This is best seen on axial image 50. The aortic arch and proximal great vessels are widely patent. There is no significant stenosis, occ lusion, or dissection identified within the bilateral common carotid, internal carotid, or vertebral arteries. There is a 5 mm nodule within the right lung apex on image 33. Moderate calcified plaque wi thin the left carotid bifurcation and mild calcified plaque within the right carotid bifurcation. IMPRESSION: 1. Approximately 70% focal stenosis within the ophthalmic segment of the the left intracranial international marketing intern al carotid artery due to the calcified plaque. 2. 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 3. No significant stenosis or occlusion within the bilateral ACAs, MCAs, tuck pointer. 4. No significant stenosis, occlusion, or dissection identified within the carotid or vertebral arter ies. 5. A 5 mm indeterminate pulmonary nodule within the right lung apex. Please refer to below summary of Fleischner criteria recommendations for follow-up of incidental CT n odules (Rd Arce, Guidelines for management of small pulmonary nodules detected on CT scans: A sta tement from the Fleischner Society, Radiology 237: [phone].) SOLID NODULES Solitary nodule size: <6 mm * Low risk patients: no follow-up needed * high risk patients: optional CT at 12 months Solitary nodule size: 6-8 mm * Low risk patients: follow-up at 6-12 months, then consider further follow-up at 18-24 months * high risk patients: initial follow-up CT at 6-12 months and then at 18-24 months if no change Solitary nodule size: >8 mm * either low or high risk patients - consider follow-up CT at 3 months, and/or CT-PET, and/or biopsy Multiple nodules size: <6 mm * Low risk patients: no routine follow-up * high risk patients: optional CT at 12 months Multiple nodules size: 6-8 mm * Low risk patients: follow-up at 3-6 months, then consider further follow-up at 18-24 months * high risk patients: follow-up at 3-6 months, then at 18-24 months if no change Multiple nodules size: >8 mm * Low risk patients: follow-up at 3-6 months, then consider further follow-up at 18-24 months * high risk patients: follow-up at 3-6 months, then at 18-24 months if no change Note: newly detected indeterminate nodule in persons 35 years of age or older. * Low risk patients: minimal or absent history of smoking and/or other known risk factors * high risk patients: history of smoking or of other known risk factors (e.g. first degree relative with lung cancer, or exposure to asbestos, radon, uranium) * if a nodule up to 8 mm is partly solid or is ground glass further follow-up is required after 24 m onths to exclude possible slow growing adenocarcinoma (MICHEAL) SUBSOLID NODULES Solitary pure ground-glass nodule * nodule size <6 mm - no CT follow-up required * nodule size >=6 mm - follow-up CT at 6-12 months, then every 2 years until 5 years Solitary part-solid nodule * nodule size <6 mm - no CT follow-up required * nodule size >=6 mm - follow-up CT at 3-6 months. If unchanged, and solid component remains <6 mm, then annual follow-up for 5 years Multiple subsolid nodules * nodule size <6 mm - follow-up CT at 3-6 months, consider further follow-up at 2 and 4 years if sta ble * nodule size >=6 mm - follow-up CT at 3-6 months, subsequent management based on the most suspiciou s nodule(s) ACT 112: Negative or not required by law. Electronically signed by: Abiodun Darnell M.D. 12/01/2021 8:17 PM
--- NOTE | 2021-12-01 20:28 | CT Scan Report ---
ABDOMEN AND PELVIS CT WITHOUT CONTRAST CT DOSE: 1452.85 mGy.cm HISTORY: back pain, flank pain, eval for stone,eval L spine TECHNIQUE: Multiaxial CT images of the abdomen and pelvis were performed without contrast. A dose lo wering technique was utilized adhering to the principles of ALARA. COMPARISON STUDY: Abdomen and pelvis CT 06/18/2019. FINDINGS: Stable subcentimeter nodules within the lung bases with the largest in the left lower lobe measuring 8 mm. These are likely benign given the long-term stability. Interstitial thickening at the lung bases with mild traction bronchiectasis suggestive of chronic fibrotic change. This has progres sed in the interval. No pneumoperitoneum. No pneumatosis. No fractures within the visualized osseous structures. There is a 4 mm hypodense lesion within the right hepatic lobe. This is technically too s mall to characterize. The unenhanced gallbladder, spleen, adrenal glands, and pancreas unremarkable. There is moderate bilateral perinephric edema which has progressed. No hydronephrosis. No renal or ur eteral stones. Mild bladder wall thickening. No retroperitoneal lymphadenopathy. Moderate calcified p laque within the normal caliber abdominal aorta. No pelvic free fluid. The prostate gland is mildly e nlarged. Suboptimal evaluation for bowel pathology due to the lack of intravenous and oral contrast. However, there is no definite bowel wall thickening or obstruction. Normal appendix. IMPRESSION: 1. Moderate bilateral perinephric edema which has progressed. This is likely chronic and could be due to chronic renal failure. A superimposed pyelonephritis or glomerulonephritis could also have a andrew lar appearance in the appropriate clinical setting. Recommend correlate with urinalysis. 2. Mild bladder wall thickening, unchanged. This is also likely chronic from the enlarged prostate gl and. 3. Interstitial thickening at the lung bases suggestive chronic fibrotic change. This has progressed in the interval. 4. Stable subcentimeter pulmonary nodule within the lung bases. These are likely benign given the hay g-term stability. 5. No bowel wall thickening or obstruction. 6. Normal appendix. 7. No hydronephrosis. ACT 112: Negative or not required by law. Electronically signed by: Abiodun Darnell M.D. 12/01/2021 8:26 PM
[2021-12-01] MEDS ORDERED: ASPIRIN CHEW 324 MG PO STA (20:48)
[2021-12-01 21:23] LABS: Appearance Urine Clear (Clear); Bacteria Urine Automated Negative (Negative); Bilirubin Urine Negative (Negative); Blood Urine Negative (Negative); Cast Urine Automated 0 /lpf (0-5); Color Urine Yellow; Epithelial Cell Urine Auto 0-5 /lpf (0-5); Glucose Urine UA 2+ (Negative); Ketones Urine Trace (Negative); Leukocyte Esterase Urine Negative (Negative); Nitrite Urine Negative (Negative); Protein Urine Trace (Negative); RBC Urine Automated 0-4 /hpf (0-4); Specific Gravity Urine > 1.045 (1.000-1.030); Urobilinogen Urine Negative (Negative); WBC Urine Automated 0 /hpf (0-5)
[2021-12-02] MEDS ORDERED: CALCIUM CARBONATE 500 MG CHEWABLE TAB PO PRN (04:44)
[2021-12-02] MEDS ORDERED: SODIUM CHLORIDE 0.9% 1000ML 1,000 ML IV SCH (04:44)
[2021-12-02] MEDS ORDERED: NITROGLYCERIN SL 0.4 MG/TAB TAB SL PRN (04:44)
[2021-12-02] MEDS ORDERED: POLYETHYLENE (MIRALAX) 17 GM PACK PO PRN (04:44)
[2021-12-02] MEDS ORDERED: ACETAMINOPHEN 325 MG TAB PO PRN (04:44)
[2021-12-02] MEDS ORDERED: oxyCODONE HCL IR 5 MG TAB (IMMEDIATE RELEASE) PO PRN (04:44)
[2021-12-02] MEDS ORDERED: ALBUTEROL HFA 8 GM INHALER INH PRN (04:44)
[2021-12-02] MEDS ORDERED: CARBOHYDRATES FOR HYPOGLYCEMIA PO PRN (05:00)
[2021-12-02] MEDS ORDERED: DEXTROSE 50% 50 ML SYRINGE IV PRN (05:00)
[2021-12-02] MEDS ORDERED: GLUCOSE 40% GEL 15 GM TUBE PO PRN (05:00)
[2021-12-02] MEDS ORDERED: GLUCOSE 10 TABS/TUBE PO PRN (05:00)
[2021-12-02] MEDS ORDERED: GLUCAGON FOR INJ 1 MG VIAL IM PRN (05:00)
[2021-12-02 05:45] LABS: Basophils # (auto) 0.01 K/uL (0-0.2); Basophils % (auto) 0.2 %; Eosinophils % (auto) 1.8 %; Hematocrit (blood only) 41.9 % (42-52); Hemoglobin 14.7 g/dL (14.0-18.0); Immature Granulocytes # (auto) 0.01 K/uL (0.00-0.02); Immature Granulocytes % (auto) 0.2 %; Lymphocytes # (auto) 1.37 K/uL (1.2-3.4); Lymphocytes % (auto) 24.1 %; Mean Corpuscular Hemoglobin 31.5 pg (25-34); Mean Corpuscular Hgb Conc 35.1 g/dL (32-36); Mean Corpuscular Volume 89.9 fL (80-100); Mean Platelet Volume 10.8 fL (7.4-10.4); Monocytes # (auto) 0.45 K/uL (0.11-0.59); Monocytes % (auto) 7.9 %; Neutrophils # (auto) 3.75 K/uL (1.4-6.5); Neutrophils % (auto) 65.8 %; Platelet Count 158 K/uL (130-400); RDW Coefficient of Variation 13.7 % (11.5-14.5); RDW Standard Deviation 44.5 fL (36.4-46.3); Red Blood Count 4.66 M/uL (4.7-6.1); White Blood Count 5.69 K/uL (4.8-10.8)
[2021-12-02 06:28] LABS: BUN Creatinine Ratio 24.2 (10-20); Calcium 9.1 mg/dl (8.5-10.1); Creatinine Clr Calc Pharmacy 74.4 ml/min; Est GFR (African American) 96.2 ml/min; Magnesium 1.9 mg/dl (1.7-2.4); Potassium 4.5 mmol/L (3.5-5.1)
--- NOTE | 2021-12-02 06:44 | History and Physical Report ---
DATE OF ADMISSION: 12/02/2021 CHIEF COMPLAINT: Severe back pain and also questionable ataxia. HISTORY OF PRESENT ILLNESS: This is a 61-year-old male with past medical history significant for type 2 diabetes, hyperlipidemia, allergic rhinitis, history of pulmonary nodules, hypertension, moderate aortic valve stenosis, dermatophytosis of foot, gout arthropathy, history of alcoholism, presents with severe back pain that started in the last few days, it got worse, and today when he was walking, he was leaning towards the right side and felt like falling down, that has prompted him to come to the ER. Resting comfortably, hemodynamically stable. Denies any headache. Sometimes he felt dizzy. No blurred visions, no earache, no runny nose, no sore throat. Occasionally he has cough. No chest pain, no shortness of breath. No nausea, no abdominal pain. Normal bowel and bladder movements. No swelling in the legs. The patient also says once in a while he gets food stuck in his throat. ALLERGIES: ERYTHROMYCIN BASE. PAST MEDICAL HISTORY: As mentioned above. PAST SURGICAL HISTORY: Carpal tunnel surgery, left side; colonoscopy; EGD with endoscopic ultrasound. MEDICATIONS: The patient is on Tylenol 500 mg p.o. q. 6 hours p.r.n., albuterol 2 puffs inhalation q. 4 hours p.r.n., aspirin 81 mg p.o. a.m., atorvastatin 40 mg p.o. daily, calcium carbonate 200 mg p.o. daily p.r.n., dulaglutide 0.75 mg subcutaneous weekly, Jardiance 10 mg p.o. daily, sliding scale insulin glargine 36 units subcutaneously at bedtime, losartan 50 mg p.o. daily, metformin 1000 mg p.o. b.i.d., metoprolol succinate 12.5 mg p.o. daily, multivitamin one tablet p.o. daily, omeprazole 20 mg p.o. p.m. FAMILY HISTORY: Significant for maternal grandfather has arthritis, mother has Crohn's disease, father has heart disorder, sister has nervous breakdown. SOCIAL HISTORY: . Smokes half pack a day for 35 years, trying to quit. Quit alcohol around 2000. No drug use. REVIEW OF SYSTEMS: As per HPI. Rest of the review of systems is negative. PHYSICAL EXAMINATION: GENERAL: The patient is alert and oriented, not in acute distress. VITAL SIGNS: Temperature 36.6, pulse 78, respiratory rate 18, blood pressure 157/83, oxygen 98% on room air. HEENT: No pallor, no icterus. Pupils equal, round, and reactive to light. NECK: No JVD, no neck masses. CARDIOVASCULAR: S1 and S2 heard. Systolic murmur heard in the aortic region. RESPIRATORY SYSTEM: Normal AP diameter. No accessory muscle use. No wheezing, no crackles. ABDOMEN: Soft, bowel sounds present, nontender, no distention. CENTRAL NERVOUS SYSTEM: Cranial nerves II-XII grossly intact, nonfocal. EXTREMITIES: No edema, no erythema. LABORATORY DATA: WBC 7.6, hemoglobin 16.1, hematocrit 44.3, platelets 183. PT 10.4, INR 1, APTT 25.6. Sodium 136, potassium 4, chloride 104, bicarb 25, BUN 32, creatinine 1.09, serum glucose 301, calcium 10.2, magnesium 2, total bilirubin 0.4, AST 14, ALT 18, alkaline phosphatase 123. Troponin 1 high sensitivity 8.8. Urinalysis, +2 glucose. COVID rapid test negative. IMAGING DATA: CTA of the neck and head shows approximately 70% focal stenosis within the ophthalmic segment of the left intracranial internal carotid artery due to calcified plaque, 1.5 mm saccular aneurysm within the supraclinoid left ICA. No significant stenosis or occlusion within the bilateral ACAs, MCAs, and air control/anti air warfare officer. No significant stenosis, occlusion, or dissection identified in the carotid or vertebral arteries. A 5 mm indeterminate pulmonary nodule within the right lung apex. CT of the head, no acute findings. Chest x-ray, slight progression of the lower lung reticulonodular interstitial thickening. CT of abdomen and pelvis, moderate bilateral perinephric edema, which has progressed. This is likely chronic and could be due to chronic renal failure. A superimposed pyelonephritis has a similar appearance in the appropriate clinical setting, recommend to correlate with urinalysis. Mild bladder wall thickening, unchanged, possibly from enlarged prostate gland. Interstitial thickening of the lung base suggestive of chronic fibrotic change. This has progressed in the interval. EKG: Normal sinus rhythm at a rate of 81, possible left atrial enlargement, no significant change was found. ASSESSMENT AND PLAN: This is a 61-year-old male who presents with severe back pain and also leaning to the right side when walking. 1. Severe back pain, leaning to the right side when walking: CTA of the head and neck and CTA of the head as mentioned above. Will do MRI scan. Will also get neurology consult in the a.m. PT/OT. Will monitor in the [employer]. Oxycodone p.r.n. for low back pain.Can consider MRI lumbar spine. 2. History of moderate aortic wall stenosis: Will follow the echocardiogram, needs followup. 3. History of questionable dysphagia. The patient says sometimes it seems food is stuck in his throat,will get a speech evaluation. 4. History of diabetes: Continue his long-acting insulin. Hold his Jardiance and dulaglutide and metformin. Placed on insulin sliding scale. Follow the blood sugars. 5. History of hyperlipidemia: Continue statin. 6. Blood pressure: Continue losartan, metoprolol succinate. Will monitor the blood pressure. 7. Gastroesophageal reflux disease: Continue omeprazole. 8. 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 9. Bilateral perinephric edema on ct scan, possibly from CKD. UA no infection. Followup with nephrology. 10. Deep venous thrombosis prophylaxis: Sequential compression devices for now. DISPOSITION: Closely monitor in the [facility]. PT/OT prior to discharge. Social service to help with discharge planning. Job ID: [id number] DIDIER
[2021-12-02 07:04] LABS: Estimated Average Glucose 341 mg/dl; Hemoglobin A1C 13.5 % (4.5-5.6)
[2021-12-02] MEDS ORDERED: INSULIN HUMAN REGULAR PER UNIT 5 UNITS in SYRINGE 4.95 ML IV ONE ×2 (07:15→10:15)
[2021-12-02] MEDS: INSULIN ASPART PER UNIT SC SCH ×4 (08:24→21:16)
[2021-12-02] MEDS: MULTIVITAMIN TAB PO SCH (08:33)
[2021-12-02] MEDS: LOSARTAN POTASSIUM 50 MG TAB PO SCH (08:33)
[2021-12-02] MEDS: METOPROLOL SUCC 25MG EXT REL TAB PO SCH (08:33)
[2021-12-02] MEDS: ATORVASTATIN 40 MG TAB PO SCH (08:33)
[2021-12-02] MEDS: ASPIRIN 81 MG ECTAB PO SCH (08:33)
[2021-12-02] MEDS: PANTOprazole 40 MG TAB PO SCH (08:33)
[2021-12-02] MEDS ORDERED: LORazepam 0.5 MG TAB PO PRN (09:11)
[2021-12-02] MEDS ORDERED: PHARMACY GLYCEMIC MGMT CONSULT PRN (09:47)
[2021-12-02] MEDS ORDERED: INSULIN GLARGINE SOLOSTAR 100 UNITS/ML 3 ML PEN SQ ONE (10:45)
[2021-12-02] MEDS ORDERED: GADOBUTROL 65ML VIAL IV ONE (11:10)
--- NOTE | 2021-12-02 13:07 | Magnetic Resonance Report ---
MR brain wo/w con CLINICAL HISTORY: ataxia?. Dizziness COMPARISON STUDY: No previous studies for comparison. TECHNIQUE: Multiplanar multisequence images of the brain were performed before and after Gadavist, 6 .2 mL of IV contrast. Diffusion weighted imaging and ADC mapping was also performed. FINDINGS: Extra-axial space: There is no evidence for a subdural hematoma, There are no extra-axial fluid everardo ections. Ventricles and cisterns: The ventricles are normal in size and configuration. There is no evidence f or midline shift or mass effect. Parenchyma: On noncontrast images, there is no evidence for an acute hemorrhage or infarct. No acute diffusion abnormalities are noted on diffusion weighted imaging or ADC mapping. There is normal mckeon -white differentiation. The sulci and gyri appear normal without effacement. The midline structures a re unremarkable. The posterior fossa structures appear normal. On postcontrast images, there is no evidence for enhancing mass lesion. Osseous structures: The paranasal sinuses are well aerated. There is mucosal thickening of the masto id air cells bilaterally. Soft tissues: No focal soft tissue abnormalities are identified. IMPRESSION: 1. No acute intracranial abnormalities. 2. Evidence for bilateral chronic mastoiditis. ACT 112: Negative or not required by law. Electronically signed by: Froilan Turner M.D. 12/02/2021 1:05 PM
--- NOTE | 2021-12-02 15:38 | Electrocardiogram Report ---
Test Reason : Blood Pressure : / mmHG Vent. Rate : 081 BPM Atrial Rate : 081 BPM P-R Int : 146 ms QRS Dur : 104 ms QT Int : 390 ms P-R-T Axes : 066 079 033 degrees QTc Int : 453 ms Normal sinus rhythm Possible Left atrial enlargement Possible Anterior infarct (cited on or before 06-AUG-2013) Abnormal ECG When compared with ECG of 01-AUG-2021 17:10, No significant change was found Confirmed by Rajinder Hi ([id number]) on 12/02/2021 3:38:19 PM Referred By: REFERRED SELF Confirmed By:Rajinder Hi
--- NOTE | 2021-12-02 17:22 | Consultation Report ---
DATE OF SERVICE: 12/02/2021 REASON FOR CONSULTATION: Possible stroke or transient ischemic attack. HISTORY OF PRESENT ILLNESS: The patient is a 61-year-old male with a history of type 2 diabetes, hyp erlipidemia, allergies, pulmonary nodules, hypertension, aortic valve stenosis, gouty arthropathy, hi story of alcoholism, presented with back pain and veering. The patient indicates that he has had jeanmarie k pain intermittently for months and that it flared yesterday. The patient was walking in from [facility] and got fairly severe. He noted that he was leaning to the right and felt as if he was falling to the right, which prompted him to come to the Emergency Room. Both flares of back pain and the sense of veering to the right lasted about 6 hours. The patient denies that there was any shakila vertigo a nd it is unclear if the symptoms were worse with movement. There was no nausea, no diplopia, dysarth joo, dysphagia, unilateral weakness or numbness. He has no prior history of transient ischemic attac k or stroke. He had no audiologic symptoms such as pain, ringing, or hearing loss. He has recently been well. He has lost approximately 27 pounds over the last several months. He has not had any she nge in his chronic cough. There has not been any hemoptysis. There has not been any blood in his ur ine or stool. The patient reports that his back pain is mostly mid lumbar but sometimes radiates to the right ribs. It does not radiate to the lower extremities. There has not been any incontinence of bowel or blad dipti. Back pain is improved today. PAST MEDICAL HISTORY: As above. PAST SURGICAL HISTORY: Carpal tunnel, left; colonoscopy; EGD. HOME MEDICINES: Tylenol, albuterol, aspirin, atorvastatin, calcium carbonate, dulaglutide, Jardiance , insulin, losartan, metformin, metoprolol, multivitamin, and omeprazole. FAMILY HISTORY: Notable for arthritis, Crohn's disease, heart disease and psychiatric disease. SOCIAL HISTORY: The patient is . He works at [employer]. Smokes half pack per day for 35 ye ars, stopped alcohol in 2000. DATABASE: The patient's MRI of the brain shows no acute abnormality. 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 I have reviewed those images. Neck CTA showed approximately 70% focal stenosis of the ophthalmic segment of the left intracranial internal carotid artery due to calcified plaque. 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 No significant stenosis o f the bilateral ACAs, MCAs or traffic inspector. No significant stenosis or occlusion or dissection within the ca rotids or verts. A 5 mm indeterminate pulmonary nodule within the right lung apex. The patient also had a CT of the abdomen and pelvis, which reports no fractures within the visualized osseous structu res. White count, H and H were unremarkable. PT, PTT normal. Chemistry profile notable for a nonfasting blood sugar of 301. BUN and creatinine 32/1.09. Hemoglobin A1c 13.5. Calcium 10.2. Lipid status no t checked. Urinalysis is negative. EKG, possible left atrial enlargement, possible anterior infarct, abnormal EKG, no significant change compared to 08/01/2021. PHYSICAL EXAMINATION: Blood pressure is 137/73, pulse 75, respirations 17, temperature is 36.9. The patient is awake and alert. Speech and language are normal and his affect is appropriate. There is a systolic murmur heard best over the aortic area which radiates to the bilateral carotids and verte bral arteries. Pupils are equal, round and reactive to light. The optic nerves are grossly normal. There is normal adams and motility. Normal facial sensation, facial symmetry. Tongue is midline. Motor 5/5, no drift. Normal rapid alternating movements. Symmetric reflexes, downgoing toes. Fing er-to-nose and uwyh-qc-grgb are normal. There is no dysdiadochokinesia. Vibration sense is present in the toes. Spine is nontender. Range of motion in flexion is unremarkable. Gait with a walker is unremarkable. Romberg is negative. Tandem with a walker is hesitant. Provocative head maneuvers wi th head hanging to the right caused minimal amount of rotary nystagmus with latency and fatigability, but the findings are very minimal. The patient indicates this did give him a feeling like he had wh en he was veering to the right. It also causes some mild nausea. IMPRESSION AND PLAN: This patient had sudden onset of instability with veering to the right. He den ied any brainstem signs or symptoms, but he also denied that there was any movement associated change . He also reported no vertigo or otologic symptoms. My overall impression is that this could be dawn ign paroxysmal positional vertigo related to the right ear, but the way the patient reported his hist ory, I cannot exclude transient ischemia. I would recommend dual antiplatelet therapy with aspirin a nd Plavix and then Plavix, smoking cessation, much better control of diabetes and checking a statin w ith a goal LDL of 70 or less. I would recommend a hall monitor as an outpatient. The patient has left ophthalmic internal carotid artery stenosis. This is not surgically amenable an d it is not related to his episodes. Continued risk factor modification and antiplatelet therapy is appropriate. 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 This is small and u nlikely to rupture, but would recommend the patient see vascular neurosurgery as an outpatient to det ermine the frequency with which this needs to be monitored. Back pain: Consider plain films of the lumbar spine and MRI of the lumbar spine given the severity. Significant weight loss: Defer to primary care regarding further evaluation. We will follow with you . Job ID: [id number]
[2021-12-02] MEDS ORDERED: INSULIN GLARGINE SOLOSTAR 100 UNITS/ML 3 ML PEN SQ SCH ×2 (21:00)
[2021-12-02] MEDS ORDERED: LORazepam 0.5 MG TAB PO STA (21:10)
--- NOTE | 2021-12-02 22:46 | Magnetic Resonance Report ---
MRI OF THE LUMBAR SPINE WITHOUT IV CONTRAST CLINICAL HISTORY: Low back pain. COMPARISON STUDY: Abdominal CT dated 12/01/2021. TECHNIQUE: MRI of lumbar spine is performed utilizing various T1 and T2-weighted sequences in the axi al and sagittal planes. IV contrast was not administered for this examination. The examination is mod estly degraded by motion artifact. FINDINGS: Lumbar spine: Vertebral body height and alignment are maintained throughout the lumbar spine. There i s straightening of lumbar lordosis. The transverse and spinous processes appear intact. There is no e vidence of spondylolysis. No destructive bony lesion is seen. Tiny anterior and lateral marginal oste ophytes are seen throughout. Mild chronic degenerative endplate changes noted at L5-S1. Intervertebral discs: There is degenerative disc desiccation. Mild loss of height is noted at L3-L4. The remaining disc spaces are maintained. Spinal cord: The imaged spinal cord is normal in morphology and signal intensity. The conus medullari s terminates at the level of L2. The nerve roots of the cauda equina are normal in morphology. L1-L2: There is minimal posterior disc bulge eccentric to left. This contributes to mild left-sided s ubarticular stenosis. The central canal and neural foramina are patent. L2-L3: Unremarkable. L3-L4: There is broad-based posterior disc bulge. This abuts the transiting nerve roots. There is no significant acquired compromise of the central canal. Lateral disc bulge is seen bilaterally and cont ributes to subarticular stenosis, right greater than left. This may impinge on the exiting bilateral L3 nerve roots. There is mild bilateral neural foraminal stenosis. L4-L5: There is broad-based posterior disc bulge. This abuts the transiting nerve roots. Lateral disc bulge is seen bilaterally, left greater than right. This impinges on the exiting bilateral L4 nerve roots. In conjunction with facet arthropathy, there is moderate bilateral neural foraminal stenosis. L5-S1: There is minimal posterior disc bulge. This abuts the transiting nerve roots. Mild lateral dis c bulge is seen bilaterally. This contributes to mild bilateral subarticular stenosis. In conjunction with facet arthropathy, there is mild bilateral neural foraminal stenosis. Sacrum: The visualized sacrum is normal in morphology and signal intensity. Soft tissues: The paraspinous soft tissues are normal as visualized. The retroperitoneal structures a re grossly unremarkable but incompletely evaluated. IMPRESSION: 1. Lumbosacral spondylosis as above, greatest at L3-L4 and L4-L5. See discussion for detailed level b y level analysis. 2. There is no significant acquired compromise of the central canal. 3. No destructive bony process is seen. Dictated: 12/02/2021 10:18 PM Transcribed: 12/02/2021 10:32 PM Chery [id number] [email or web address] Electronically signed by: Reed Hare M.D. 12/02/2021 10:43 PM
[2021-12-03] MEDS: INSULIN ASPART PER UNIT SC SCH ×6 (00:18→21:08)
[2021-12-03] MEDS: LOSARTAN POTASSIUM 50 MG TAB PO SCH (07:36)
[2021-12-03] MEDS: METOPROLOL SUCC 25MG EXT REL TAB PO SCH (07:36)
[2021-12-03] MEDS: PANTOprazole 40 MG TAB PO SCH (07:36)
[2021-12-03] MEDS: MULTIVITAMIN TAB PO SCH (07:37)
[2021-12-03] MEDS: ATORVASTATIN 40 MG TAB PO SCH (07:37)
[2021-12-03] MEDS: CLOPIDOGREL BISULFATE 75 MG TAB PO SCH (07:38)
[2021-12-03] MEDS: ASPIRIN 81 MG ECTAB PO SCH (07:42)
--- NOTE | 2021-12-03 07:42 | Hospitalist Progress Note ---
Date of Service December 03, 2021 Assessment & Plan (1) Back pain: Plan: This is a 61-year-old male who presents with severe back pain and also leaning to the right side when walking. 1. 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 No significant stenosis or occlusion within the bilateral ACAs, MCAs, and service person. No significant stenosis, occlusion, or dissection identified in the carotid or vertebral arteries. MRI brain - IMPRESSION: 1. No acute intracranial abnormalities. 2. Evidence for bilateral chronic mastoiditis. MR Lumbar spine IMPRESSION: 1. Lumbosacral spondylosis as above, greatest at L3-L4 and L4-L5. See discussion for detailed level by level analysis. 2. There is no significant acquired compromise of the central canal. 3. No destructive bony process is seen. PT/OT. Will monitor in the [facility]. Oxycodone p.r.n. for low back pain. Neurology consulted Dizziness of uncertain etiology. The patient has multiple vascular risk factors. MRI of the brain in spite of hours of symptoms was unremarkable. This could be a paroxysmal positional vertigo, but I cannot exclude transient ischemia. Recommend dual antiplatelet therapy with aspirin and Plavix, after 21 days Plavix alone. Smoking cessation better control of diabetes and goal LDL of 70 or less. site monitor as an outpatient. Physical therapy for Claudette maneuver. Left ophthalmic internal carotid artery stenosis not surgically amenable, not related to these episodes. Continue risk factor modification. 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 Recommend outpatient evaluation by vascular neurosurgery. Finally, back pain, MRI fortunately shows nothing worrisome. Recommend physical therapy as an outpatient. 2. History of moderate aortic wall stenosis: Will follow the echocardiogram, needs followup. 3. History of questionable dysphagia. The patient says sometimes it seems food is stuck in his throat - speech evaluation. 4. Diabetes mellitus type 2: Poor control, current HbA1c above 13% primary special educator consulted, glycemic pharmacy consulted - long-acting insulin. Hold his Jardiance and dulaglutide and metformin. Placed on insulin sliding scale. Follow the blood sugars. -Patient follows with [facility] clinic, will need close follow-up 5. History of hyperlipidemia: Continue statin. 6. Blood pressure: Continue losartan, metoprolol succinate. Will monitor the blood pressure. 7. Gastroesophageal reflux disease: Continue omeprazole. 8. 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 9. Bilateral perinephric edema on ct scan, possibly from CKD. UA no infection. Followup with nephrology. DVT prophylaxis: SCDs for now. DISPOSITION:med tele. PT/OT. Admission and Anticipated Discharge Date Admission Date: December 02, 2021 Subjective Patient seen in follow-up of severe back pain, ataxia Hemoglobin A1c found to be elevated above 13% Back pain seems to be much improved now, patient did undergo MRI of lumbar spine overnight Currently laying in bed, in no acute distress Denies fevers, chills, chest pain, shortness of breath, abdominal pain, nausea vomitting Review of Systems Review of Systems: All systems reviewed & are unremarkable except as noted in Subjective Physical Exam Physical Exam: GENERAL: The patient is alert and oriented, not in acute distress. HEENT: NC/AT, No pallor, no icterus. EOMI, Pupils equal, round, and reactive to light. NECK: No JVD, no neck masses. CARDIOVASCULAR: S1 and S2 heard. Systolic murmur heard in the aortic region. RESPIRATORY: Normal AP diameter. No accessory muscle use. No wheezing, no crackles. ABDOMEN: Soft, bowel sounds present, nontender, no distention. NEURO:alert oriented, answering questions appropriately, speech fluent, moves extremities, gait not assessed EXTREMITIES: No edema, no erythema. Results & Data Results & Data ([facility]) Vital Signs (Past 12 Hours) Vital Signs Temp Pulse Pulse Resp BP Pulse Ox 12/03/21 07:08 81 12/03/21 04:19 36.2 C L 71 18 163/80 H 96 12/03/21 01:12 65 12/02/21 23:00 36.7 C 69 20 129/70 97 Medications Administered Current Inpatient Medications Acetaminophen (Acetaminophen 325 Mg Tab) 650 mg PO Q4H PRN PRN Reason: Pain or Fever Stop: 01/01/22 04:43 Albuterol (Albuterol Hfa 8 Gm Inhaler) 2 puffs INH Q4 PRN PRN Reason: Shortness Of Breath Or Wheezin Stop: 01/01/22 04:43 Aspirin (Aspirin 81 Mg Ectab) 81 mg PO QAM [facility] Stop: 01/01/22 08:59 Last Admin: 12/02/21 08:33 Dose: 81 mg Documented by: Atorvastatin Calcium (Atorvastatin 40 Mg Tab) 40 mg PO DAILY [facility] Stop: 01/01/22 08:59 Last Admin: 12/03/21 07:37 Dose: 40 mg Documented by: Calcium Carbonate (Calcium Carbonate 500 Mg Chewable Tab) 250 mg PO DAILY PRN PRN Reason: Gi Upset Stop: 01/01/22 04:43 Clopidogrel Bisulfate (Clopidogrel Bisulfate 75 Mg Tab) 75 mg PO QAM [facility] Stop: 01/02/22 08:59 Last Admin: 12/03/21 07:38 Dose: 75 mg Documented by: Dextrose (Dextrose 50% 50 Ml Syringe) 25 - 50 ml IV UD PRN; Protocol PRN Reason: Hypoglycemia Protocol Stop: 01/01/22 04:59 Glucagon (Glucagon For Inj 1 Mg Vial) 1 mg IM UD PRN; Protocol PRN Reason: Hypoglycemia Protocol Stop: 01/01/22 04:59 Glucose (Glucose 40% Gel 15 Gm Tube) 15 - 30 gm PO UD PRN; Protocol PRN Reason: Hypoglycemia Protocol Stop: 01/01/22 04:59 Glucose (Glucose 10 Tabs/Tube) 4 - 8 tabs PO UD PRN; Protocol PRN Reason: Hypoglycemia Protocol Stop: 01/01/22 04:59 Insulin Aspart (Insulin Aspart Per Unit) 0 units SC ACHS [facility] Stop: 01/01/22 07:29 Last Admin: 12/02/21 21:16 Dose: Not Given Documented by: Lorazepam (Lorazepam 0.5 Mg Tab) 0.5 mg PO ONE PRN PRN Reason: Anxiety-PRIOR TO MRI Stop: 01/01/22 09:10 Last Admin: 12/02/21 10:26 Dose: 0.5 mg Documented by: Losartan Potassium (Losartan Potassium 50 Mg Tab) 50 mg PO DAILY [facility] Stop: 01/01/22 08:59 Last Admin: 12/03/21 07:36 Dose: 50 mg Documented by: Metoprolol Succinate (Metoprolol Succ 25mg Ext Rel Tab) 12.5 mg PO DAILY [facility] Stop: 01/01/22 08:59 Last Admin: 12/03/21 07:36 Dose: 12.5 mg Documented by: Miscellaneous (Carbohydrates For Hypoglycemia ) 15 - 30 gm PO UD PRN PRN Reason: Hypoglycemia Treatment Stop: 01/01/22 04:59 Miscellaneous Information (Pharmacy Glycemic Mgmt Consult) 1 ea N/A UD PRN PRN Reason: Consult Stop: 01/01/22 09:46 Multivitamins (Multivitamin Tab) 1 tab PO [facility] Stop: 01/01/22 08:59 Last Admin: 12/03/21 07:37 Dose: 1 tab Documented by: Nitroglycerin (Nitroglycerin Sl 0.4 Mg/Tab Tab) 0.4 mg SL UD PRN PRN Reason: Chest Pain Stop: 01/01/22 04:43 Oxycodone HCl (Oxycodone Hcl Ir 5 Mg Tab (Immediate Release)) 5 mg PO Q4H PRN PRN Reason: Pain Stop: 12/16/21 04:43 Pantoprazole Sodium (Pantoprazole 40 Mg Tab) 40 [facility] Stop: 01/01/22 08:59 Last Admin: 12/03/21 07:36 Dose: 40 mg Documented by: Polyethylene Glycol (Polyethylene (Miralax) 17 Gm Pack) 17 gm PO DAILY PRN PRN Reason: Constipation Stop: 01/01/22 04:43
[2021-12-03 09:50] LABS: Hematocrit (blood only) 42.8 % (42-52); Hemoglobin 15.1 g/dL (14.0-18.0); Mean Corpuscular Hemoglobin 31.2 pg (25-34); Mean Corpuscular Hgb Conc 35.3 g/dL (32-36); Mean Corpuscular Volume 88.4 fL (80-100); Mean Platelet Volume 10.9 fL (7.4-10.4); Platelet Count 180 K/uL (130-400); RDW Coefficient of Variation 13.7 % (11.5-14.5); RDW Standard Deviation 44.5 fL (36.4-46.3); Red Blood Count 4.84 M/uL (4.7-6.1); White Blood Count 5.69 K/uL (4.8-10.8)
[2021-12-03 10:20] LABS: BUN Creatinine Ratio 16.7 (10-20); Calcium 8.9 mg/dl (8.5-10.1); Chol HDL Ratio 6.1 (0-5); Creatinine Clr Calc Pharmacy 74.8 ml/min; Est GFR (African American) 99.9 ml/min; Est GFR (Non-African American) 86.2 ml/min; Magnesium 1.7 mg/dl (1.7-2.4); Potassium 3.8 mmol/L (3.5-5.1)
--- NOTE | 2021-12-03 11:48 | Progress Notes ---
DATE OF NOTE: 12/03/2021. SUBJECTIVE: I am seeing the patient in followup of hours of veering to the right with a normal MRI, but with significant vascular disease. The patient indicates that this sense is improving. He still has a minor sense that he is veering. There has never been any true vertigo. He has not had any new symptoms. He has had imaging with an MRI of the lumbar spine, which shows spondylosis at L3-4 and L 4-5, and no significant acquired compromise of the central canal as well as no destructive bony proce ss being seen. OBJECTIVE: On exam, he is awake and alert. Speech and language are normal. There is normal extraoc ular motility. No nystagmus. Normal facial symmetry, symmetric strength of the upper and lower is n ormal. [id number] with provocative head maneuvers and head hanging to the right with some latenc y. There is a sense of movement. No abnormal eye movements were noted when I attempted a second siobhan e there was less of a latency and still no abnormal eye movements. IMPRESSION AND PLAN: Dizziness of uncertain etiology. The patient has multiple vascular risk factor s. MRI of the brain in spite of hours of symptoms was unremarkable. This could be a paroxysmal posi tional vertigo, but I cannot exclude transient ischemia. Recommend dual antiplatelet therapy with as pirin and Plavix, after 21 days Plavix alone. Smoking cessation better control of diabetes and goal LDL of 70 or less. bug trimmer as an outpatient. Physical therapy for Claudette maneuver. Left oph thalmic internal carotid artery stenosis not surgically amenable, not related to these episodes. Con tinue risk factor modification. A 1.5 mm saccular aneurysm of the left supraclinoid internal carotid artery, small and likely rupture . Recommend outpatient evaluation by vascular neurosurgery. Finally, back pain, MRI fortunately emmanuelle ws nothing worrisome. Recommend physical therapy as an outpatient. Weight loss, defer to primary re garding further evaluation. Job ID: [id number]
[2021-12-03] MEDS ORDERED: ROSUVASTATIN CALCIUM 10 MG TAB PO SCH (12:00)
[2021-12-03] MEDS: INSULIN GLARGINE SOLOSTAR 100 UNITS/ML 3 ML PEN SQ SCH (17:09)
[2021-12-04] MEDS: METOPROLOL SUCC 25MG EXT REL TAB PO SCH (06:56)
[2021-12-04] MEDS: CLOPIDOGREL BISULFATE 75 MG TAB PO SCH (06:56)
[2021-12-04] MEDS: MULTIVITAMIN TAB PO SCH (06:56)
[2021-12-04] MEDS: LOSARTAN POTASSIUM 50 MG TAB PO SCH (06:57)
[2021-12-04] MEDS: ASPIRIN 81 MG ECTAB PO SCH (06:57)
[2021-12-04] MEDS: ATORVASTATIN 40 MG TAB PO SCH (06:57)
[2021-12-04] MEDS: PANTOprazole 40 MG TAB PO SCH (06:57)
--- NOTE | 2021-12-04 07:53 | Hospitalist Progress Note ---
Date of Service December 04, 2021 Assessment & Plan (1) Back pain: Plan: This is a 61-year-old male who presents with severe back pain and also leaning to the right side when walking. 1. 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 No significant stenosis or occlusion within the bilateral ACAs, MCAs, and director of patient financial services. No significant stenosis, occlusion, or dissection identified in the carotid or vertebral arteries. MRI brain - IMPRESSION: 1. No acute intracranial abnormalities. 2. Evidence for bilateral chronic mastoiditis. MR Lumbar spine IMPRESSION: 1. Lumbosacral spondylosis as above, greatest at L3-L4 and L4-L5. See discussion for detailed level by level analysis. 2. There is no significant acquired compromise of the central canal. 3. No destructive bony process is seen. PT/OT. Will monitor in the Snapchat. Oxycodone p.r.n. for low back pain. Neurology consulted Dizziness of uncertain etiology. The patient has multiple vascular risk factors. MRI of the brain in spite of hours of symptoms was unremarkable. This could be a paroxysmal positional vertigo, but I cannot exclude transient ischemia. Recommend dual antiplatelet therapy with aspirin and Plavix, after 21 days Plavix alone. Smoking cessation better control of diabetes and goal LDL of 70 or less. 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 Physical therapy for Claudette maneuver. Left ophthalmic internal carotid artery stenosis not surgically amenable, not related to these episodes. Continue risk factor modification. 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 Recommend outpatient evaluation by vascular neurosurgery. Finally, back pain, MRI fortunately shows nothing worrisome. Recommend physical therapy as an outpatient. 2. History of moderate aortic valve tenosis: Echocardiogram obtained -there is moderate concentric LVH. LV wall motion is normal. LV systolic function is normal. LVEF 55 to 60%. Aortic valve is severely calcified. Aortic valve is not visualized well enough to determine the number of cusps. The presence of a bicuspid aortic valve is therefore not excluded. Moderate aortic stenosis is present by Doppler assessment, however on 2D assessment, severe aortic stenosis suggested. There is no significant aortic regurg. Grade 1 diastolic dysfunction. A small PFO is present. Mild hjmcx-ka-sita shunt noted with demonstration of agitated saline contrast at rest and with Valsalva maneuver. Aortic root is normal size. Compared to report of prior study dated September 16, 2019, at [facility], the aortic valve gradients have progressed. - Cardiology consulted while inpt - pt will need further outpt followup. 3. History of questionable dysphagia. The patient says sometimes it seems food is stuck in his throat - speech evaluation. 4. Diabetes mellitus type 2: Poor control, current HbA1c above 13% acquisition professional consulted, glycemic pharmacy consulted - long-acting insulin. Hold his Jardiance and dulaglutide and metformin. Placed on insulin sliding scale. Follow the blood sugars. -Patient follows with [facility], will need close follow-up 5. History of hyperlipidemia: Continue statin. LDL goal less than 70 and patient is not currently at goal. Questionable compliance with his medications. Follow-up fasting lipid panel recommended. 6. Blood pressure: Continue losartan, metoprolol succinate. Will monitor the blood pressure. 7. Gastroesophageal reflux disease: Continue omeprazole. 8. 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 9. Bilateral perinephric edema on ct scan, possibly from CKD. UA no infection. Followup with nephrology. DVT prophylaxis: SCDs for now. DISPOSITION:med tele. PT/OT. Admission and Anticipated Discharge Date Admission Date: December 02, 2021 Subjective Patient seen in follow-up of severe back pain, ataxia Hemoglobin A1c found to be elevated above 13% Back pain seems to be much improved now, patient did undergo MRI of lumbar spine as well Currently laying in bed, in no acute distress Denies fevers, chills, chest pain, shortness of breath, abdominal pain, nausea vomitting Review of Systems Review of Systems: All systems reviewed & are unremarkable except as noted in Subjective Physical Exam Physical Exam: GENERAL: The patient is alert and oriented, not in acute distress. HEENT: NC/AT, No pallor, no icterus. EOMI, Pupils equal, round, and reactive to light. NECK: No JVD, no neck masses. CARDIOVASCULAR: S1 and S2 heard. Systolic murmur heard in the aortic region. RESPIRATORY: Normal AP diameter. No accessory muscle use. No wheezing, no crackles. ABDOMEN: Soft, bowel sounds present, nontender, no distention. NEURO:alert oriented, answering questions appropriately, speech fluent, moves extremities, gait not assessed EXTREMITIES: No edema, no erythema. Results & Data Results & Data ([facility]) Vital Signs (Past 12 Hours) Vital Signs Temp Pulse Pulse Resp BP BP Pulse Ox 12/04/21 07:48 69 12/04/21 07:32 36.4 C L 102 H 20 143/79 H 96 12/04/21 03:05 36.4 C L 75 18 151/80 H 99 12/04/21 01:25 68 12/03/21 22:45 36.8 C 72 16 134/72 97 Laboratory Results 12/04/21 12/03/21 12/03/21 Range/Units 07:22 19:59 16:48 WBC (4.8-10.8) K/uL RBC (4.7-6.1) M/uL Hgb (14.0-18.0) g/dL Hct (42-52) % MCV (80-100) fL MCH (25-34) pg MCHC (32-36) g/dL RDW Std Deviation (36.4-46.3) fL RDW Coeff of Mariah (11.5-14.5) % Plt Count (130-400) K/uL MPV (7.4-10.4) fL Sodium (136-145) mmol/L Potassium (3.5-5.1) mmol/L Chloride (98-107) mmol/L Carbon Dioxide (21-32) mmol/L Anion Gap (3-11) BUN (6-23) mg/dl Creatinine (0.6-1.4) mg/dl Est Cr Clr Drug Dosing ml/min Est GFR ( Amer) ml/min Est GFR (Non-Af Amer) ml/min BUN/Creatinine Ratio (10-20) Glucose (70-99(Fasting)) mg/dl POC Glucose 96 116 H 85 (70-99) mg/dl Calcium (8.5-10.1) mg/dl Phosphorus (2.5-4.9) mg/dl Magnesium (1.7-2.4) mg/dl Triglycerides (0-150) mg/dl Cholesterol (0-200) mg/dl LDL Cholesterol, Calc mg/dl VLDL Cholesterol, Calc (0-30) mg/dl HDL Cholesterol mg/dl Cholesterol/HDL Ratio (0-5) 12/03/21 12/03/21 12/03/21 Range/Units 12:10 12:09 09:21 WBC 5.69 (4.8-10.8) K/uL RBC 4.84 (4.7-6.1) M/uL Hgb 15.1 (14.0-18.0) g/dL Hct 42.8 (42-52) % MCV 88.4 (80-100) fL MCH 31.2 (25-34) pg MCHC 35.3 (32-36) g/dL RDW Std Deviation 44.5 (36.4-46.3) fL RDW Coeff of Mariah 13.7 (11.5-14.5) % Plt Count 180 (130-400) K/uL MPV 10.9 H (7.4-10.4) fL Sodium (136-145) mmol/L Potassium (3.5-5.1) mmol/L Chloride (98-107) mmol/L Carbon Dioxide (21-32) mmol/L Anion Gap (3-11) BUN (6-23) mg/dl Creatinine (0.6-1.4) mg/dl Est Cr Clr Drug Dosing ml/min Est GFR ( Amer) ml/min Est GFR (Non-Af Amer) ml/min BUN/Creatinine Ratio (10-20) Glucose (70-99(Fasting)) mg/dl POC Glucose 344 H* 306 H* (70-99) mg/dl Calcium (8.5-10.1) mg/dl Phosphorus (2.5-4.9) mg/dl Magnesium (1.7-2.4) mg/dl Triglycerides (0-150) mg/dl Cholesterol (0-200) mg/dl LDL Cholesterol, Calc mg/dl VLDL Cholesterol, Calc (0-30) mg/dl HDL Cholesterol mg/dl Cholesterol/HDL Ratio (0-5) 12/03/21 Range/Units 09:21 WBC (4.8-10.8) K/uL RBC (4.7-6.1) M/uL Hgb (14.0-18.0) g/dL Hct (42-52) % MCV (80-100) fL MCH (25-34) pg MCHC (32-36) g/dL RDW Std Deviation (36.4-46.3) fL RDW Coeff of Mariah (11.5-14.5) % Plt Count (130-400) K/uL MPV (7.4-10.4) fL Sodium 135 L (136-145) mmol/L Potassium 3.8 (3.5-5.1) mmol/L Chloride 106 (98-107) mmol/L Carbon Dioxide 25 (21-32) mmol/L Anion Gap 4 (3-11) BUN 16 (6-23) mg/dl Creatinine 0.96 (0.6-1.4) mg/dl Est Cr Clr Drug Dosing 74.8 ml/min Est GFR ( Amer) 99.9 ml/min Est GFR (Non-Af Amer) 86.2 ml/min BUN/Creatinine Ratio 16.7 (10-20) Glucose 314 H* (70-99(Fasting)) mg/dl POC Glucose (70-99) mg/dl Calcium 8.9 (8.5-10.1) mg/dl Phosphorus 3.0 (2.5-4.9) mg/dl Magnesium 1.7 (1.7-2.4) mg/dl Triglycerides 168 H (0-150) mg/dl Cholesterol 182 (0-200) mg/dl LDL Cholesterol, Calc 118 mg/dl VLDL Cholesterol, Calc 34 H (0-30) mg/dl HDL Cholesterol 30 mg/dl Cholesterol/HDL Ratio 6.1 H (0-5) Medications Administered Current Inpatient Medications Acetaminophen (Acetaminophen 325 Mg Tab) 650 mg PO Q4H PRN PRN Reason: Pain or Fever Stop: 01/01/22 04:43 Albuterol (Albuterol Hfa 8 Gm Inhaler) 2 puffs INH Q4 PRN PRN Reason: Shortness Of Breath Or Wheezin Stop: 01/01/22 04:43 Aspirin (Aspirin 81 Mg Ectab) [facility] [place]: 01/01/22 08:59 Last Admin: 12/04/21 06:57 Dose: 81 mg Documented by: Atorvastatin Calcium (Atorvastatin 40 Mg Tab) 40 mg PO DAILY [facility] Stop: 01/01/22 08:59 Last Admin: 12/04/21 06:57 Dose: 40 mg Documented by: Calcium Carbonate (Calcium Carbonate 500 Mg Chewable Tab) 250 mg PO DAILY PRN PRN Reason: Gi Upset Stop: 01/01/22 04:43 Clopidogrel Bisulfate (Clopidogrel Bisulfate 75 Mg Tab) 75 mg PO QAM [facility] Stop: 01/02/22 08:59 Last Admin: 12/04/21 06:56 Dose: 75 mg Documented by: Dextrose (Dextrose 50% 50 Ml Syringe) 25 - 50 ml IV UD PRN; Protocol PRN Reason: Hypoglycemia Protocol Stop: 01/01/22 04:59 Glucagon (Glucagon For Inj 1 Mg Vial) 1 mg IM UD PRN; Protocol PRN Reason: Hypoglycemia Protocol Stop: 01/01/22 04:59 Glucose (Glucose 40% Gel 15 Gm Tube) 15 - 30 gm PO UD PRN; Protocol PRN Reason: Hypoglycemia Protocol Stop: 01/01/22 04:59 Glucose (Glucose 10 Tabs/Tube) 4 - 8 tabs PO UD PRN; Protocol PRN Reason: Hypoglycemia Protocol Stop: 01/01/22 04:59 Insulin Aspart (Insulin Aspart Per Unit) 0 units SC ACHS NELI Stop: 01/01/22 07:29 Last Admin: 12/03/21 21:08 Dose: Not Given Documented by: Insulin Glargine (Insulin Glargine Solostar 100 Units/Ml 3 Ml Pen) 35 units SQ PM [facility] Stop: 01/02/22 14:59 Last Admin: 12/03/21 17:09 Dose: 35 units Documented by: Lorazepam (Lorazepam 0.5 Mg Tab) 0.5 mg PO ONE PRN PRN Reason: Anxiety-PRIOR TO MRI Stop: 01/01/22 09:10 Last Admin: 12/02/21 10:26 Dose: 0.5 mg Documented by: Losartan Potassium (Losartan Potassium 50 Mg Tab) 50 mg PO DAILY [facility] Stop: 01/01/22 08:59 Last Admin: 12/04/21 06:57 Dose: 50 mg Documented by: Metoprolol Succinate (Metoprolol Succ 25mg Ext Rel Tab) 12.5 mg PO DAILY [facility] Stop: 01/01/22 08:59 Last Admin: 12/04/21 06:56 Dose: 12.5 mg Documented by: Miscellaneous (Carbohydrates For Hypoglycemia ) 15 - 30 gm PO UD PRN PRN Reason: Hypoglycemia Treatment Stop: 01/01/22 04:59 Miscellaneous Information (Pharmacy Glycemic Mgmt Consult) 1 ea N/A UD PRN PRN Reason: Consult Stop: 01/01/22 09:46 Multivitamins (Multivitamin Tab) 1 tab PO [facility] Stop: 01/01/22 08:59 Last Admin: 12/04/21 06:56 Dose: 1 tab Documented by: Nitroglycerin (Nitroglycerin Sl 0.4 Mg/Tab Tab) 0.4 mg SL UD PRN PRN Reason: Chest Pain Stop: 01/01/22 04:43 Oxycodone HCl (Oxycodone Hcl Ir 5 Mg Tab (Immediate Release)) 5 mg PO Q4H PRN PRN Reason: Pain Stop: 12/16/21 04:43 Pantoprazole Sodium (Pantoprazole 40 Mg Tab) 40 mg PO QAM [facility] Stop: 01/01/22 08:59 Last Admin: 12/04/21 06:57 Dose: 40 mg Documented by: Polyethylene Glycol (Polyethylene (Miralax) 17 Gm Pack) 17 gm PO DAILY PRN PRN Reason: Constipation Stop: 01/01/22 04:43
[2021-12-04] MEDS: INSULIN ASPART PER UNIT SC SCH ×4 (08:08→21:16)
--- NOTE | 2021-12-04 11:47 | Progress Notes ---
DATE OF NOTE: 12/04/2021 SUBJECTIVE: I am seeing the patient in followup of veering that occurred in the setting of back pain , symptoms of veering lasted several hours, although there was not any vertigo and it was not clearly worse with movement. MRI of the brain did not show an acute infarction. CTA of the neck showed a 7 0% stenosis within the ophthalmic segment of the left intracranial internal carotid artery. A 1.5 mm saccular aneurysm within the supraclinoid left ICA, neither of which is related to his episodes. Hi s echocardiogram shows severe aortic stenosis. The patient is feeling improved, still mildly off bal ance. No shakila vertigo. OBJECTIVE: Exam reveals normal extraocular motility without nystagmus. Normal facial symmetry, symm etric strength in the upper and lowers. Normal [id number] and [id number], no dysdiadochokinesi a. Gait was unremarkable. Romberg negative. Tandem mildly difficult, although not unilaterally so. IMPRESSION: This patient complained of hours of instability with a tendency to veer to the right. H e denied that it was worse with head movement and there was no accompanying vertigo. On exam, there were some minor findings that could suggest a peripheral labyrinthopathy, although they were not defi nitive. PLAN: We have elected to treat this as if it was a transient ischemic attack or a small stroke, jarrod peres that it could have been a labyrinthopathy. This patient has multiple vascular risk factors, which are not well controlled. Recommend dual antiplatelet therapy with aspirin and Plavix for 21 days an d then Plavix monotherapy. Smoking cessation is advised. Dietary has seen him about control of his diabetes. The patient should have an LDL checked with a goal LDL of 70 or less. Physical therapy kirkpatrick s not seen him again I would like them to do an Claudette maneuver. I do not think the patient can retur n to work at present. He should see primary care as an outpatient and they can determine his return to work. I am concerned about his general instability. The patient should see my department in [facility] in 2-3 weeks. Patient should see Vascular Neurosurgery regarding the left supraclinoid ICA 1.5 mm aneurysm. This is also asymptomatic, but they will need to guide us regarding imaging and frequen cy. Job ID: [id number]
--- NOTE | 2021-12-04 11:54 | Cardiology Consultation ---
Date of Consultation December 04, 2021 Assessment & Plan (1) Aortic stenosis: (2) Hyperlipidemia: Patient is now on dual antiplatelet therapy for possible TIA event, including aspirin, clopidogrel. Continue chronic treatment including metoprolol, losartan. Agree with neurology recommendation for titration of statin therapy for goal LDL less than 70 given findings of 70% focal stenosis within the ophthalmic segment of the the left intracranial internal carotid artery due to the calcified plaque. Not certain if he has actually been taking his atorvastatin 40 mg daily, as on remote blood work, his LDL has been well controlled, but it certainly trended up on other recent readings. Outpatient follow-up of aortic stenosis recommended. We will arrange repeat outpatient echocardiogram for further assessment of the aortic valve on the same equipment that his previous study was performed. Depending upon findings, future considerations include invasive hemodynamic assessment of aortic stenosis, with coronary angiography to definitively rule in or exclude underlying obstructive coronary heart disease. History of Present Illness Attending Physician: Julio Stevenson MD History of Present Illness Derek Tristan is a 61-year-old male seen in cardiology consultation per the request of Dr. Stevenson for the evaluation of aortic stenosis. Patient had previously been seen as an outpatient by Dr. Valladares of our cardiology practice in 2019 for complaints of chest discomfort. He went on to undergo an exercise stress echocardiogram in September,, which was negative for inducible ischemia, however he was noted to have moderate aortic stenosis at that time. Follow-up had been recommended, but the patient did not keep his appointment. He presented to the emergency department with acute low back pain, and feeling like his walking made him veer to the right. He has been seen by neurology, TIA work-up negative thus far. Echocardiogram performed yesterday 12/03/2021 and reviewed by the undersigned revealed presence of moderate concentric left ventricular hypertrophy. Severe aortic valve calcification noted on 2D, and the number of cusps of the aortic valve could not be distinguished. The LVEF was normal at 55 to 60%. The presence of moderate aortic stenosis suggested by Doppler assessment, however on 2D assessment, severe aortic stenosis suggested. Also there were findings of a small PFO with mild right to left shunt noted with the administration of agitated saline contrast. 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 He is uncertain if this is how he hurt his back or not. He describes that since his stress test in 2019 he has had intermittent episodes of recurrent chest discomfort, they are not necessarily linked with aerobic exertion however. Patient's history is otherwise notable for type 2 diabetes mellitus, hypertension, dyslipidemia. He is a daily cigarette smoker. MRI of the lumbar spine performed 12/02 revealed multilevel disc disease. Allergies Allergy/AdvReac Type Severity Reaction Status Date / Time erythromycin base Allergy Mild Abdominal Verified 12/01/21 21:15 Pain Home Medications Medication Instructions Recorded Confirmed Type metformin 1,000 mg tablet 1,000 mg PO BIDM 03/11/19 12/01/21 History omeprazole 20 mg capsule,delayed 20 mg PO QAM 03/11/19 12/01/21 History release aspirin 81 mg tablet,delayed 81 mg PO QAM 06/17/20 12/01/21 History release insulin aspart U-100 100 unit/mL See Rx Instructions .ROUTE .COMPLEX 06/17/20 12/01/21 History (3 mL) subcutaneous pen (Novolog Flexpen U-100 Insulin aspart) multivitamin 1 tab PO QAM 06/17/20 12/01/21 History metoprolol succinate 25 mg 12.5 mg PO DAILY 09/19/20 12/01/21 History tablet,extended release 24 hr acetaminophen 500 mg tablet 500 mg PO Q6H PRN 08/01/21 12/01/21 History (Acetaminophen Extra Strength) insulin glargine 100 unit/mL (3 36 unit SUBCUT HS 08/01/21 12/01/21 History mL) subcutaneous pen (Lantus Solostar U-100 Insulin) albuterol sulfate 90 mcg/actuation 2 puff INHALATION Q4 PRN 12/01/21 12/01/21 History aerosol inhaler (Ventolin HFA) atorvastatin 40 mg tablet 40 mg PO DAILY 12/01/21 12/01/21 History calcium carbonate 200 mg calcium 200 mg PO DAILY PRN 12/01/21 12/01/21 History (500 mg) chewable tablet (Calcium Antacid) dulaglutide 0.75 mg/0.5 mL 0.75 mg SUBCUT WK 12/01/21 History subcutaneous pen injector empagliflozin 10 mg tablet 10 mg PO DAILY 12/01/21 History losartan 50 mg tablet 50 mg PO DAILY 12/01/21 12/01/21 History Patient History Medical History Carpal tunnel syndrome Diabetes DKA (diabetic ketoacidoses) Hyperkalemia Hyperlipidemia Hypertension Irritable bowel syndrome Tobacco use Surgical History History of carpal tunnel surgery History of foot surgery Family History Other Diabetes Heart disease Social History Smoking Status: Current every day smoker Tobacco Type: Cigarettes Cigarettes Per Day: Previously had quit for 8 years but resumed smoking 5 cig/day last month; Second Hand Exposure: Yes; Hx Alcohol Use: No Hx Substance Use: No Preferred Language: Moldovan Communication Ability: Effective Laundry Routeman Required: No Beliefs That Will Affect Care: None marital status: Current Living Situation: Family Feels Safe at Home: Yes Assistive Devices: None Review of Systems Review of Systems: All systems reviewed & are unremarkable except as noted in HPI & below Physical Exam Constitutional: WD/WN, vitals as above Respiratory: normal respiratory effort, lungs clear to auscultation Cardiovascular: Rate/Rhythm: regular rate Heart Sounds: + murmur (2/6 systolic murmur heard best at left sternal border) Extremities: no edema Gastrointestinal (Abdomen): normal bowel sounds, soft, nontender, no hepatosplenomegaly Neurologic: PERRL, EOMI, accommodation nl, no face palsy, no dysarthria Results & Data ([facility]) Vital Signs (Past 12 Hours) Vital Signs Temp Pulse Pulse Resp BP BP Pulse Ox 12/04/21 11:21 36.7 C 86 19 134/79 97 12/04/21 07:48 69 12/04/21 07:32 36.4 C L 102 H 20 143/79 H 96 12/04/21 03:05 36.4 C L 75 18 151/80 H 99 12/04/21 01:25 68 Laboratory Results LDL cholesterol 12/03/2021, 118 mg/dL Diagnostic Findings Summary CTA of the neck: 1. Approximately 70% focal stenosis within the ophthalmic segment of the the left intracranial internal carotid artery due to the calcified plaque. 2. 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 3. No significant stenosis or occlusion within the bilateral ACAs, MCAs, medical orderly. 4. No significant stenosis, occlusion, or dissection identified within the carotid or vertebral arteries. 5. A 5 mm indeterminate pulmonary nodule within the right lung apex.
--- NOTE | 2021-12-04 13:12 | Pharmacy Report ---
Pharmacy Glycemic Short Note 2 - Date of Service December 04, 2021 - Glycemic Short BSG Results (Last 24 hours): 12/03/21 12/03/21 12/04/21 16:48 19:59 07:22 POC Glucose 85 116 H 96 12/04/21 11:58 POC Glucose 106 H OUTPATIENT ANTIDIABETIC REGIMEN: * Lantus 32-34 units SQ qHS * Novolog SQ with meals, plus correction * 6 units with breakfast * 8 units with lunch * 6 units with dinner * Metformin 1gm PO BID * HbA1c: 13.5% (12/02/21) ASSESSMENT: * Mr Tristan is a 61yo diabetic M admitted with back pain. * His outpt glycemic control is poor, as indicated by A1c 13.5%. * BSGs have been reasonably well-controlled for the past 24 hours. * No changes required today. Will continue to follow and adjust regimen as required. PLAN FOR INPATIENT GLYCEMIC CONTROL: * Hold outpatient oral diabetes medications * Basal insulin * Lantus 35 units SQ qPM * Bolus insulin * NovoLog per scale ACHS or Q6hrs while NPO * Goal Range: Low 120 mg/dL - High 150 mg/dL * Correction Factor: 25 mg/dL/unit * Nutritional / Prandial insulin per carb ratio of 1 unit per 8 grams CHO consumed
[2021-12-04] MEDS: INSULIN GLARGINE SOLOSTAR 100 UNITS/ML 3 ML PEN SQ SCH (21:16)
[2021-12-05] MEDS: PANTOprazole 40 MG TAB PO SCH (07:36)
[2021-12-05] MEDS: METOPROLOL SUCC 25MG EXT REL TAB PO SCH (07:36)
[2021-12-05] MEDS: LOSARTAN POTASSIUM 50 MG TAB PO SCH (07:36)
[2021-12-05] MEDS: ASPIRIN 81 MG ECTAB PO SCH (07:36)
[2021-12-05] MEDS: ATORVASTATIN 40 MG TAB PO SCH (07:36)
[2021-12-05] MEDS: MULTIVITAMIN TAB PO SCH (07:36)
[2021-12-05] MEDS: CLOPIDOGREL BISULFATE 75 MG TAB PO SCH (07:36)
[2021-12-05] MEDS: INSULIN ASPART PER UNIT SC SCH ×2 (08:01→11:59)
--- NOTE | 2021-12-05 11:01 | Hospitalist Progress Note ---
Date of Service December 05, 2021 Assessment & Plan (1) Back pain: Plan: This is a 61-year-old male who presents with severe back pain and also leaning to the right side when walking. 1. 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 No significant stenosis, occlusion, or dissection identified in the carotid or vertebral arteries. MRI brain - IMPRESSION: 1. No acute intracranial abnormalities. 2. Evidence for bilateral chronic mastoiditis. MR Lumbar spine IMPRESSION: 1. Lumbosacral spondylosis as above, greatest at L3-L4 and L4-L5. See discussion for detailed level by level analysis. 2. There is no significant acquired compromise of the central canal. 3. No destructive bony process is seen. PT/OT. Will monitor in the [employer]. Oxycodone p.r.n. for low back pain. Neurology consulted Dizziness of uncertain etiology. The patient has multiple vascular risk factors. MRI of the brain in spite of hours of symptoms was unremarkable. This could be a paroxysmal positional vertigo, but I cannot exclude transient ischemia. Recommend dual antiplatelet therapy with aspirin and Plavix, after 21 days Plavix alone. Smoking cessation better control of diabetes and goal LDL of 70 or less. telemetry monitor as an outpatient. Physical therapy for Claudette maneuver. Left ophthalmic internal carotid artery stenosis not surgically amenable, not related to these episodes. Continue risk factor modification. 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 Recommend outpatient evaluation by vascular neurosurgery. Finally, back pain, MRI fortunately shows nothing worrisome. Recommend physical therapy as an outpatient. 2. History of moderate aortic valve stenosis: Echocardiogram obtained -there is moderate concentric LVH. LV wall motion is normal. LV systolic function is normal. LVEF 55 to 60%. Aortic valve is severely calcified. Aortic valve is not visualized well enough to determine the number of cusps. The presence of a bicuspid aortic valve is therefore not excluded. Moderate aortic stenosis is present by Doppler assessment, however on 2D assessment, severe aortic stenosis suggested. There is no significant aortic regurg. Grade 1 diastolic dysfunction. A small PFO is present. Mild zqkav-qm-ligs shunt noted with demonstration of agitated saline contrast at rest and with Valsalva maneuver. Aortic root is normal size. Compared to report of prior study dated September 16, 2019, at [facility], the aortic valve gradients have progressed. - Cardiology consulted while inpt - pt will need further outpt followup. 3. History of questionable dysphagia. The patient says sometimes it seems food is stuck in his throat - speech evaluation. 4. Diabetes mellitus type 2: Poor control, current HbA1c 13.5% funeral prearrangement counselor consulted, glycemic pharmacy consulted - long-acting insulin. Hold his Jardiance and dulaglutide and metformin. Placed on insulin sliding scale. Follow the blood sugars. -Patient follows with [facility], will need close follow-up 5. History of hyperlipidemia: Continue statin. LDL goal less than 70 and patient is not currently at goal. Questionable compliance with his medications. Follow-up fasting lipid panel recommended. 6. Blood pressure: Continue losartan, metoprolol succinate. Will monitor the blood pressure. 7. Gastroesophageal reflux disease: Continue omeprazole. 8. 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 9. Bilateral perinephric edema on ct scan, possibly from CKD. UA no infection. Followup with nephrology. DVT prophylaxis: SCDs for now. DISPOSITION:med tele. PT/OT. Admission and Anticipated Discharge Date Admission Date: December 02, 2021 Subjective Patient seen in follow-up of severe back pain, ataxia Hemoglobin A1c found to be elevated above 13% Back pain seems to be much improved now, patient did undergo MRI of lumbar spine as well Currently laying in bed, in no acute distress Denies fevers, chills, chest pain, shortness of breath, abdominal pain, nausea vomitting On echo he was found to have possibly severe aortic stenosis, and cardiology was consulted as well Review of Systems Review of Systems: All systems reviewed & are unremarkable except as noted in Subjective Physical Exam Physical Exam: GENERAL: The patient is alert and oriented, not in acute distress. HEENT: NC/AT, No pallor, no icterus. EOMI, Pupils equal, round, and reactive to light. NECK: No JVD, no neck masses. CARDIOVASCULAR: S1 and S2 heard. Systolic murmur heard in the aortic region. RESPIRATORY: Normal AP diameter. No accessory muscle use. No wheezing, no crackles. ABDOMEN: Soft, bowel sounds present, nontender, no distention. NEURO:alert oriented, answering questions appropriately, speech fluent, moves extremities, gait not assessed EXTREMITIES: No edema, no erythema. Results & Data Results & Data ([facility]) Vital Signs (Past 12 Hours) Vital Signs Temp Pulse Pulse Resp BP Pulse Ox 12/05/21 07:23 62 12/05/21 07:18 36.6 C 76 16 145/78 H 98 12/05/21 02:54 36.5 C 71 18 139/75 97 12/04/21 23:19 79 12/04/21 23:12 36.7 C 73 18 133/78 98 Laboratory Results 12/05/21 12/04/21 12/04/21 Range/Units 07:40 19:59 16:46 POC Glucose 138 H 189 H 82 (70-99) mg/dl 12/04/21 Range/Units 11:58 POC Glucose 106 H (70-99) mg/dl Medications Administered Current Inpatient Medications Acetaminophen (Acetaminophen 325 Mg Tab) 650 mg PO Q4H PRN PRN Reason: Pain or Fever Stop: 01/01/22 04:43 Albuterol (Albuterol Hfa 8 Gm Inhaler) 2 puffs INH Q4 PRN PRN Reason: Shortness Of Breath Or Wheezin Stop: 01/01/22 04:43 Aspirin (Aspirin 81 Mg Ectab) 81 mg PO QAM [facility] Stop: 01/01/22 08:59 Last Admin: 12/05/21 07:36 Dose: 81 mg Documented by: Atorvastatin Calcium (Atorvastatin 40 Mg Tab) 40 mg PO DAILY NELI Stop: 01/01/22 08:59 Last Admin: 12/05/21 07:36 Dose: 40 mg Documented by: Calcium Carbonate (Calcium Carbonate 500 Mg Chewable Tab) 250 mg PO DAILY PRN PRN Reason: Gi Upset Stop: 01/01/22 04:43 Clopidogrel Bisulfate (Clopidogrel Bisulfate 75 Mg Tab) 75 mg PO QAM [facility] Stop: 01/02/22 08:59 Last Admin: 12/05/21 07:36 Dose: 75 mg Documented by: Dextrose (Dextrose 50% 50 Ml Syringe) 25 - 50 ml IV UD PRN; Protocol PRN Reason: Hypoglycemia Protocol Stop: 01/01/22 04:59 Glucagon (Glucagon For Inj 1 Mg Vial) 1 mg IM UD PRN; Protocol PRN Reason: Hypoglycemia Protocol Stop: 01/01/22 04:59 Glucose (Glucose 40% Gel 15 Gm Tube) 15 - 30 gm PO UD PRN; Protocol PRN Reason: Hypoglycemia Protocol Stop: 01/01/22 04:59 Glucose (Glucose 10 Tabs/Tube) 4 - 8 tabs PO UD PRN; Protocol PRN Reason: Hypoglycemia Protocol Stop: 01/01/22 04:59 Insulin Aspart (Insulin Aspart Per Unit) 0 units SC ACHS [facility] Stop: 01/01/22 07:29 Last Admin: 12/05/21 08:01 Dose: 5 units Documented by: Insulin Glargine (Insulin Glargine Solostar 100 Units/Ml 3 Ml Pen) 35 units SQ PM [facility] Stop: 01/02/22 14:59 Last Admin: 12/04/21 21:16 Dose: 35 units Documented by: Lorazepam (Lorazepam 0.5 Mg Tab) 0.5 mg PO ONE PRN PRN Reason: Anxiety-PRIOR TO MRI Stop: 01/01/22 09:10 Last Admin: 12/02/21 10:26 Dose: 0.5 mg Documented by: Losartan Potassium (Losartan Potassium 50 Mg Tab) 50 mg PO DAILY [facility] Stop: 01/01/22 08:59 Last Admin: 12/05/21 07:36 Dose: 50 mg Documented by: Metoprolol Succinate (Metoprolol Succ 25mg Ext Rel Tab) 12.5 mg PO DAILY [facility] Stop: 01/01/22 08:59 Last Admin: 12/05/21 07:36 Dose: 12.5 mg Documented by: Miscellaneous (Carbohydrates For Hypoglycemia ) 15 - 30 gm PO UD PRN PRN Reason: Hypoglycemia Treatment Stop: 01/01/22 04:59 Miscellaneous Information (Pharmacy Glycemic Mgmt Consult) 1 ea N/A UD PRN PRN Reason: Consult Stop: 01/01/22 09:46 Multivitamins (Multivitamin Tab) 1 tab PO QAM [facility] Stop: 01/01/22 08:59 Last Admin: 12/05/21 07:36 Dose: 1 tab Documented by: Nitroglycerin (Nitroglycerin Sl 0.4 Mg/Tab Tab) 0.4 mg SL UD PRN PRN Reason: Chest Pain Stop: 01/01/22 04:43 Oxycodone HCl (Oxycodone Hcl Ir 5 Mg Tab (Immediate Release)) 5 mg PO Q4H PRN PRN Reason: Pain Stop: 12/16/21 04:43 Pantoprazole Sodium (Pantoprazole 40 Mg Tab) 40 mg PO QAM NELI Stop: 01/01/22 08:59 Last Admin: 12/05/21 07:36 Dose: 40 mg Documented by: Polyethylene Glycol (Polyethylene (Miralax) 17 Gm Pack) 17 gm PO DAILY PRN PRN Reason: Constipation Stop: 01/01/22 04:43
--- NOTE | 2021-12-05 11:06 | Discharge Summary ---
Date of Service December 05, 2021 Admission HPI Per Admitting Provider This is a 61-year-old male with past medical history significant for type 2 diabetes, hyperlipidemia, allergic rhinitis, history of pulmonary nodules, hypertension, moderate aortic valve stenosis, dermatophytosis of foot, gout arthropathy, history of alcoholism, presents with severe back pain that started in the last few days, it got worse, and today when he was walking, he was leaning towards the right side and felt like falling down, that has prompted him to come to the ER. Resting comfortably, hemodynamically stable. Denies any headache. Sometimes he felt dizzy. No blurred visions, no earache, no runny nose, no sore throat. Occasionally he has cough. No chest pain, no shortness of breath. No nausea, no abdominal pain. Normal bowel and bladder movements. No swelling in the legs. The patient also says once in a while he gets food stuck in his throat. Admission Exam Per Admitting Provider GENERAL: The patient is alert and oriented, not in acute distress. VITAL SIGNS: Temperature 36.6, pulse 78, respiratory rate 18, blood pressure 157/83, oxygen 98% on room air. HEENT: No pallor, no icterus. Pupils equal, round, and reactive to light. NECK: No JVD, no neck masses. CARDIOVASCULAR: S1 and S2 heard. Systolic murmur heard in the aortic region. RESPIRATORY SYSTEM: Normal AP diameter. No accessory muscle use. No wheezing, no crackles. ABDOMEN: Soft, bowel sounds present, nontender, no distention. CENTRAL NERVOUS SYSTEM: Cranial nerves II-XII grossly intact, nonfocal. EXTREMITIES: No edema, no erythema. Principal Diagnosis TIA versus labyrinthopathy Back pain Severe aortic stenosis Uncontrolled diabetes mellitus type 2 Discharge Exam GENERAL: The patient is alert and oriented, not in acute distress. HEENT: NC/AT, No pallor, no icterus. EOMI, Pupils equal, round, and reactive to light. NECK: No JVD, no neck masses. CARDIOVASCULAR: S1 and S2 heard. Systolic murmur heard in the aortic region. RESPIRATORY: Normal AP diameter. No accessory muscle use. No wheezing, no crackles. ABDOMEN: Soft, bowel sounds present, nontender, no distention. NEURO:alert oriented, answering questions appropriately, speech fluent, moves extremities, gait not assessed EXTREMITIES: No edema, no erythema. Discharge Data Allergies Allergy/AdvReac Type Severity Reaction Status Date / Time erythromycin base Allergy Mild Abdominal Verified 12/01/21 21:15 Pain Consultations 12/01/21 21:21 ED Decision to Admit Stat 12/02/21 08:00 Consult Neurology Routine 12/04/21 10:12 Consult Cardiology Routine Ordered Studies 12/01/21 18:20 CT abd pelvis wo con Stat IMPRESSION: 1. Moderate bilateral perinephric edema which has progressed. This is likely chronic and could be due to chronic renal failure. A superimposed pyelonephritis or glomerulonephritis could also have a similar appearance in the appropriate clinical setting. Recommend correlate with urinalysis. 2. Mild bladder wall thickening, unchanged. This is also likely chronic from the enlarged prostate gland. 3. Interstitial thickening at the lung bases suggestive chronic fibrotic change. This has progressed in the interval. 4. Stable subcentimeter pulmonary nodule within the lung bases. These are likely benign given the long-term stability. 5. No bowel wall thickening or obstruction. 6. Normal appendix. 7. No hydronephrosis. CT angio head w con Stat CT angio neck with con Stat IMPRESSION: 1. Approximately 70% focal stenosis within the ophthalmic segment of the the left intracranial internal carotid artery due to the calcified plaque. 2. 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 3. 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 4. No significant stenosis, occlusion, or dissection identified within the car otid or vertebral arteries. 5. A 5 mm indeterminate pulmonary nodule within the right lung apex. Please refer to below summary of Fleischner criteria recommendations for follow- up of incidental CT nodules (Rd Arce, Guidelines for management of small pulmonary nodules detected on CT scans: A statement from the Fleischner Society, Radiology 237: [phone].) SOLID NODULES Solitary nodule size: <6 mm * Low risk patients: no follow-up needed * high risk patients: optional CT at 12 months Solitary nodule size: 6-8 mm * Low risk patients: follow-up at 6-12 months, then consider further follow-up at 18-24 months * high risk patients: initial follow-up CT at 6-12 months and then at 18-24 months if no change Solitary nodule size: >8 mm * either low or high risk patients - consider follow-up CT at 3 months, and/or CT-PET, and/or biopsy Multiple nodules size: <6 mm * Low risk patients: no routine follow-up * high risk patients: optional CT at 12 months Multiple nodules size: 6-8 mm * Low risk patients: follow-up at 3-6 months, then consider further follow-up at 18-24 months * high risk patients: follow-up at 3-6 months, then at 18-24 months if no change Multiple nodules size: >8 mm * Low risk patients: follow-up at 3-6 months, then consider further follow-up at 18-24 months * high risk patients: follow-up at 3-6 months, then at 18-24 months if no richards ge Note: newly detected indeterminate nodule in persons 35 years of age or older. * Low risk patients: minimal or absent history of smoking and/or other known risk factors * high risk patients: history of smoking or of other known risk factors (e.g. first degree relative with lung cancer, or exposure to asbestos, radon, uranium) * if a nodule up to 8 mm is partly solid or is ground glass further follow-up is required after 24 months to exclude possible slow growing adenocarcinoma (MICHEAL) SUBSOLID NODULES Solitary pure ground-glass nodule * nodule size <6 mm - no CT follow-up required * nodule size >=6 mm - follow-up CT at 6-12 months, then every 2 years until 5 years Solitary part-solid nodule * nodule size <6 mm - no CT follow-up required * nodule size >=6 mm - follow-up CT at 3-6 months. If unchanged, and solid component remains <6 mm, then annual follow-up for 5 years Multiple subsolid nodules * nodule size <6 mm - follow-up CT at 3-6 months, consider further follow-up at 2 and 4 years if stable * nodule size >=6 mm - follow-up CT at 3-6 months, subsequent management based on the most suspicious nodule(s) CT head/brain wo con Stat Impression: No acute intracranial abnormality. 12/02/21 04:44 MR brain wo/w con Urgent IMPRESSION: 1. No acute intracranial abnormalities. 2. Evidence for bilateral chronic mastoiditis. 12/02/21 18:05 MR lumbar spine wo con Urgent IMPRESSION: 1. Lumbosacral spondylosis as above, greatest at L3-L4 and L4-L5. See discussion for detailed level by level analysis. 2. There is no significant acquired compromise of the central canal. 3. No destructive bony process is seen. Diabetes Follow up Diabetes Follow-up Needed for HgbA1c >9% Hospital Course (1) Back pain: This is a 61-year-old male who presents with severe back pain and also leaning to the right side when walking. 1. 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 No significant stenosis, occlusion, or dissection identified in the carotid or vertebral arteries. MRI brain - IMPRESSION: 1. No acute intracranial abnormalities. 2. Evidence for bilateral chronic mastoiditis. MR Lumbar spine IMPRESSION: 1. Lumbosacral spondylosis as above, greatest at L3-L4 and L4-L5. See discussion for detailed level by level analysis. 2. There is no significant acquired compromise of the central canal. 3. No destructive bony process is seen. PT/OT. Will monitor in the [employer]. Oxycodone p.r.n. for low back pain. Neurology consulted Dizziness of uncertain etiology. The patient has multiple vascular risk factors. MRI of the brain in spite of hours of symptoms was unremarkable. This could be a paroxysmal positional vertigo, but I cannot exclude transient ischemia. Recommend dual antiplatelet therapy with aspirin and Plavix, after 21 days Plavix alone. Smoking cessation better control of diabetes and goal LDL of 70 or less. monitoring and evaluation advisor as an outpatient. Physical therapy for Claudette maneuver. Left ophthalmic internal carotid artery stenosis not surgically amenable, not related to these episodes. Continue risk factor modification. 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 Recommend outpatient evaluation by vascular neurosurgery. Finally, back pain, MRI fortunately shows nothing worrisome. Recommend physical therapy as an outpatient. 2. History of moderate aortic valve stenosis: Echocardiogram obtained -there is moderate concentric LVH. LV wall motion is normal. LV systolic function is normal. LVEF 55 to 60%. Aortic valve is severely calcified. Aortic valve is not visualized well enough to determine the number of cusps. The presence of a bicuspid aortic valve is therefore not excluded. Moderate aortic stenosis is present by Doppler assessment, however on 2D assessment, severe aortic stenosis suggested. There is no significant aortic regurg. Grade 1 diastolic dysfunction. A small PFO is present. Mild vrkhe-st-irzy shunt noted with demonstration of agitated saline contrast at rest and with Valsalva maneuver. Aortic root is normal size. Compared to report of prior study dated September 16, 2019, at [facility], the aortic valve gradients have progressed. - Cardiology consulted while inpt - pt will need further outpt followup. 3. History of questionable dysphagia. The patient says sometimes it seems food is stuck in his throat - speech evaluation. 4. Diabetes mellitus type 2: Poor control, current HbA1c 13.5% development educator consulted, glycemic pharmacy consulted - long-acting insulin. Hold his Jardiance and dulaglutide and metformin. Placed on insulin sliding scale. Follow the blood sugars. -Patient follows with [facility] clinic, will need close follow-up 5. History of hyperlipidemia: Continue statin. LDL goal less than 70 and patient is not currently at goal. Questionable compliance with his medications. Follow-up fasting lipid panel recommended. 6. Blood pressure: Continue losartan, metoprolol succinate. Will monitor the blood pressure. 7. Gastroesophageal reflux disease: Continue omeprazole. 8. 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 9. Bilateral perinephric edema on ct scan, possibly from CKD. UA no infection. Followup with nephrology. Total Time Total Time Spent Total Time Spent (In Minutes): 40 Discharge Plan Discharge Items Patient Disposition: Home - Self-Care Reason For Visit: BACK PAIN Discharge Diagnosis: TIA versus labyrinthopathy Back pain Severe aortic stenosis Uncontrolled diabetes mellitus type 2 Activity: Per Instructions section Non-emergency contact: Primary Care Provider and Neurologist Call non-emergency contact if: you have any medication questions and your symptoms worsen Follow-up/Referrals: Outpatient Swallowing Studies [Other] - 12/09/21 8:30 am (An appointment has been arranged for you to have a Barium Swallow Study and a Video Swallow Study at [facility]. Do not have anything by mouth after Midnight the night before your tests. Please check in at the Front Entrance of [facility]. Your Barium Swallow Study is at 8:30 am and the Video Swallow Study is at 9 AM.) Anabel Ortiz MD [Primary Care Provider] - (Date & Time 12/08/2021 11:00 AM Provider GREGORIA Cobb Department Family [facility] ) Diet: Carb Consistent or DM2 and Heart Healthy Addtl Attending Provider Instructions: Follow-up with your primary care doctor, the appointment was scheduled for you for December 08. You will also need to follow-up with neurology, in 2 to 3 weeks. Take aspirin and Plavix for total of 21 days, then take Plavix alone. You need to follow-up with primary care doctor, and [facility] clinic for better control of your diabetes. It is also recommended that you follow-up with vascular surgery, your primary care doctor will refer you. For aortic stenosis, you will need to follow-up with cardiology, you will be contacted about the appointment. For back pain, you can take Tylenol 1000 mg up to 3 times a day, for more severe pain, you can take oxycodone as prescribed. Also recommend using lidocaine patches, you can obtain those [id number], often under the name Salonpas. Pending Studies at Discharge: No Stand-Alone Forms: My [facility] [employer], Smoking Cessation Medications and DC Order Prescriptions: New clopidogrel 75 mg Tablet 75 mg PO QAM Qty: 30 RF: 0 oxycodone 5 mg Tablet 5 mg PO Q4H PRN (Reason: pain) Qty: 5 RF: 0 Continued metformin 1,000 mg tablet 1,000 mg PO BIDM RF: 0 omeprazole 20 mg capsule,delayed release(DR/EC) 20 mg PO QAM RF: 0 multivitamin Tablet 1 tab PO QAM RF: 0 aspirin 81 mg Tablet,Delayed Release (Dr/Ec) 81 mg PO QAM RF: 0 insulin aspart U-100 [Novolog Flexpen U-100 Insulin] 100 unit/mL (3 mL) insulin pen See Rx Instructions .ROUTE .COMPLEX RF: 0 acetaminophen [Acetaminophen Extra Strength] 500 mg Tablet 500 mg PO Q6H PRN (Reason: Pain) RF: 0 Lantus Solostar U-100 Insulin 100 unit/mL (3 mL) insulin pen 36 unit SUBCUT HS RF: 0 losartan 50 mg tablet 50 mg PO DAILY RF: 0 atorvastatin 40 mg tablet 40 mg PO DAILY RF: 0 calcium carbonate [Calcium Antacid] 200 mg calcium (500 mg) Tablet,Chewable 200 mg PO DAILY PRN (Reason: Gi Upset) RF: 0 albuterol sulfate [Ventolin HFA] 90 mcg/actuation Hfa Aerosol Inhaler 2 puff INHALATION Q4 PRN (Reason: Shortness Of Breath Or Wheezing) RF: 0 empagliflozin 10 mg Tablet 10 mg PO DAILY RF: 0 dulaglutide 0.75 mg/0.5 mL Pen Injector 0.75 mg SUBCUT WK RF: 0 metoprolol succinate 25 mg tablet extended release 24 hr 12.5 mg PO DAILY RF: 0 Discharge Orders: Discharge Order (Routine); Ordered 12/05/21 Ordered By: Julio Stevenson Admission Data Admit Date/Time: 12/02/21 00:34 Attending Provider: Julio Stevenson Admit Provider: Wenceslao Alexander Primary Care Provider: Anabel Ortiz Other Providers: Wenceslao Alexander ; Tricia Marin ; Lior Casas Other Interventions: Discharge Summary Assessment (RN) Last Done: 12/05/21 11:06
== END 2021-12-05 12:49 | disposition home or self-care (01) | DRG 69 ==
LOC: ED 17:36 → EDINP 12-02 00:34 → 2W 12-02 06:06

== ENCOUNTER 2022-01-13 21:17 | Inpatient (IN) ==
[2022-01-13 22:02] LABS: Basophils # (auto) 0.05 K/uL (0-0.2); Basophils % (auto) 0.3 %; Eosinophils # (auto) 0.01 K/uL (0-0.50); Eosinophils % (auto) 0.1 %; Hematocrit (blood only) 54.4 % (40.1-51.0); Hemoglobin 19.1 g/dl (14.0-18.0); Immature Granulocytes # (auto) 0.09 K/uL (0.00-0.02); Immature Granulocytes % (auto) 0.6 %; Lymphocytes # (auto) 1.67 K/uL (1.2-3.4); Lymphocytes % (auto) 10.7 %; Mean Corpuscular Hemoglobin 31.4 pg (25.0-34.0); Mean Corpuscular Hgb Conc 35.1 g/dL (32.0-36.0); Mean Corpuscular Volume 89.3 fL (80.0-100.0); Mean Platelet Volume 11.4 fL (9.4-12.4); Monocytes # (auto) 0.66 K/uL (0.24-0.82); Monocytes % (auto) 4.2 %; Neutrophils # (auto) 13.15 K/uL (1.4-6.5); Neutrophils % (auto) 84.1 %; Platelet Count 284 K/uL (130-400); RDW Standard Deviation 45.1 fL (36.4-46.3); Red Blood Count 6.09 M/uL (4.63-6.08); White Blood Count 15.63 K/ul (4.8-10.8)
[2022-01-13 22:20] LABS: Partial Thromboplastin Time 28.4 Seconds (21.0-31.0); Prothrombin Time 10.2 Seconds (9.0-12.0)
[2022-01-13 22:25] LABS: Albumin Level 4.6 gm/dl (3.4-5.0); BUN Creatinine Ratio 33.5 (10-20); Bilirubin,Total 0.7 mg/dl (0.2-1.0); Calcium 11.2 mg/dl (8.5-10.1); Creatinine Clr Calc Pharmacy 38.1 ml/min; Est GFR (African American) 46.7 ml/min; Est GFR (Non-African American) 40.3 ml/min; Globulin 4.4 gm/dl (2.5-4.0); Magnesium 2.5 mg/dl (1.7-2.4); Potassium 5.8 mmol/L (3.5-5.1)
[2022-01-13] MEDS ORDERED: SODIUM CHLORIDE 0.9% 1000ML 1,000 ML IV SCH ×2 (22:31→22:45)
[2022-01-13] MEDS ORDERED: NovoLIN-R INSULIN PER UNIT CHARGE IV STA (22:48)
[2022-01-13 22:51] LABS: Base Excess VBG -13.1 mEq/L; HCO3 VBG 13 mmol/L; PCO2 VBG 29 mmHg (38-50); PO2 VBG 52 mmHg; pH VBG 7.25 (7.36-7.41)
--- NOTE | 2022-01-13 22:53 | XRay Report ---
XR chest 1V portable CLINICAL HISTORY: SOB TECHNIQUE: Single frontal radiograph of the chest was obtained. Comparison: Comparison is made to chest radiograph 12/01/2021 FINDINGS: No lines and tubes are seen. The cardiomediastinal silhouette is normal. Faint bibasilar airspace opa cities are seen. No evidence of pleural effusion or pneumothorax. IMPRESSION: Faint bibasilar airspace opacities which may represent atelectasis, pneumonia, and/or aspiration. ACT 112: Negative or not required by law. Electronically signed by: Richard Church M.D. 01/13/2022 10:52 PM
[2022-01-13] MEDS ORDERED: GLUCOSE 10 TAB/TUBE PO PRN ×2 (23:28→23:33)
[2022-01-13] MEDS ORDERED: GLUCAGON FOR INJ 1 MG VIAL SQ PRN (23:28)
[2022-01-13] MEDS ORDERED: GLUCOSE 40% GEL 15 GM TUBE PO PRN (23:28)
[2022-01-13] MEDS ORDERED: DEXTROSE 50% 50 ML SYRINGE IV PRN (23:28)
[2022-01-13] MEDS ORDERED: STAT INSULIN DRIP STA (23:28)
[2022-01-13] MEDS ORDERED: INSULIN REGULAR 250 UNITS in SODIUM CHLORIDE 0.9% 247.5 ML IV SCH (23:30)
[2022-01-13] MEDS ORDERED: SODIUM CHLORIDE 0.9% 1000ML 1,000 ML IV ONE (23:47)
[2022-01-14] MEDS ORDERED: METOPROLOL TARTRATE 1 MG/ML VIAL IV STA (00:21)
[2022-01-14] MEDS ORDERED: oxyCODONE HCL IR 5 MG TAB (IMMEDIATE RELEASE) PO STA (00:40)
--- NOTE | 2022-01-14 01:50 | History & Physical Report ---
Date of Service January 14, 2022 Assessment & Plan (1) Hyperglycemic crisis in diabetes mellitus: Plan: Combined DKA/HHS Secondary to missed insulin doses DM2 insulin requiring, suboptimal control as of recent hemoglobin A1c of 13 last December 2021 Rule out functional disability Abdominal pain secondary to illness ? Pancreatitis given lipase elevation HTN, elevated secondary to illness ARF, AGMA secondary to illness hx COPD/ILD, pulmonary status at baseline moderate aortic stenosis hyperlipidemia on statin Rx hx TIA past tobacco/alcohol abuse Medical telemetry given uncontrolled BP Gentle IV hydration given valvular heart disease, IV insulin Bowel rest Follow lipase levels and CT abdomen pelvis result May need GI consult if additional testing shows pancreatitis. Baseline UA, monitor creatinine response to IVF Appropriate to hold ARB until creatinine back to baseline Analgesia, titrate home beta-fortino while ARB on hold May benefit from pharmacy glycemic control consultation DM education PT OT eval DVT prophylaxis. Heparin subcu DNR Text document was generated using [employer] voice recognition software. It may contain grammatical or spelling errors. Kindly contact undersigned for clarification of any documentation item in question. History of Present Illness Chief Complaint: High sugars, balance issues, headache, abdominal pain Primary Care Provider: Anabel Ortiz MD History obtained from patient and records. Medical history significant for COPD/ILD, moderate aortic stenosis, hypertension, hyperlipidemia, DM2 insulin requiring, TIA, gout, past tobacco/alcohol abuse as per records. Last confinement November 2021 for possible TIA presenting as dizziness symptoms. Patient discharged on antiplatelet Rx. Patient thinks he ran out of insulin last week. Blood sugars noted to be 200s to 600s at home. Patient feeling imbalance and dehydrated. No chest pain. Short of breath from weakness as per patient. Achy headache and abdominal pain complaints. At the ER, IV insulin started for hyperglycemic crisis. 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 Allergies Allergy/AdvReac Type Severity Reaction Status Date / Time erythromycin base Allergy Mild Abdominal Verified 01/13/22 22:38 Pain Home Medications Medication Instructions Recorded Confirmed Type metformin 1,000 mg tablet 1,000 mg PO BIDM 03/11/19 01/13/22 History omeprazole 20 mg capsule,delayed 20 mg PO QAM 03/11/19 01/13/22 History release aspirin 81 mg tablet,delayed 81 mg PO QAM 06/17/20 01/13/22 History release insulin aspart U-100 100 unit/mL See Rx Instructions .ROUTE .COMPLEX 06/17/20 01/13/22 History (3 mL) subcutaneous pen (Novolog Flexpen U-100 Insulin aspart) multivitamin 1 tab PO QAM 06/17/20 01/13/22 History metoprolol succinate 25 mg 12.5 mg PO DAILY 09/19/20 01/13/22 History tablet,extended release 24 hr acetaminophen 500 mg tablet 500 mg PO Q6H PRN 08/01/21 01/13/22 History (Acetaminophen Extra Strength) insulin glargine 100 unit/mL (3 36 unit SUBCUT HS 08/01/21 01/13/22 History mL) subcutaneous pen (Lantus Solostar U-100 Insulin) albuterol sulfate 90 mcg/actuation 2 puff INHALATION Q4 PRN 12/01/21 01/13/22 History aerosol inhaler (Ventolin HFA) atorvastatin 40 mg tablet 40 mg PO DAILY 12/01/21 01/13/22 History calcium carbonate 200 mg calcium 200 mg PO DAILY PRN 12/01/21 01/13/22 History (500 mg) chewable tablet (Calcium Antacid) dulaglutide 0.75 mg/0.5 mL 0.75 mg SUBCUT WK 12/01/21 01/13/22 History subcutaneous pen injector empagliflozin 10 mg tablet 10 mg PO DAILY 12/01/21 01/13/22 History losartan 50 mg tablet 50 mg PO DAILY 12/01/21 01/13/22 History clopidogrel 75 mg tablet 75 mg PO QAM #30 tab 12/05/21 01/13/22 Rx oxycodone 5 mg tablet 5 mg PO Q4H PRN #5 tab 12/05/21 01/13/22 Rx Past Med/Surg History Medical History Carpal tunnel syndrome Diabetes DKA (diabetic ketoacidoses) Hyperkalemia Hyperlipidemia Hypertension Irritable bowel syndrome Tobacco use Surgical History History of carpal tunnel surgery History of foot surgery Family History Other Diabetes Heart disease Social History Smoking Status: Current every day smoker Tobacco Type: Cigarettes Cigarettes Per Day: Previously had quit for 8 years but resumed smoking 5 cig/day last month; Second Hand Exposure: Yes; Do You Dip or Chew Tobacco: No; Tobacco Cessation Education Requested by Patient: No Hx Alcohol Use: No Hx Substance Use: No Preferred Language: Yakut Communication Ability: Effective Market Risk Specialist Required: No Beliefs That Will Affect Care: None marital status: Current Living Situation: Family Other Information That Helps Us Care for You: No Feels Safe at Home: Yes Safety Concerns: Feels Safe At This Time Assistive Devices: Denture - Upper, Denture - Lower and Glasses Review of Systems Review of Systems: As per HPI, all other systems reviewed and negative Physical Exam Physical Exam: GENERAL: Uncomfortable, chronically ill, no respiratory distress SKIN: Normal color, warm HEENT: [place] palpebral conjunctivae, no ptosis, dry buccal mucosa NECK : Supple, no tenderness CHEST : Decreased breath sounds no tenderness HEART : Tachycardic, no obvious murmurs ABDOMEN: Some distention, epigastric tenderness EXTREMITIES : No LE swelling/tenderness, no other conspicuous deformities noted NEUROLOGIC : Coherent, no facial asymmetry, slightly hard of hearing, no other gross focality Results & Data Results & Data ([facility]) Vital Signs (Past 12 Hours) Vital Signs Temp Pulse Pulse Resp BP BP Pulse Ox 01/14/22 01:29 104 H 187/106 H 01/14/22 01:00 20 96 01/14/22 00:00 110 H 18 180/101 H 97 01/13/22 23:12 96 H 18 98 01/13/22 22:04 98 H 20 175/91 H 99 01/13/22 21:40 122 H 20 178/100 H 98 01/13/22 21:24 37.0 C 116 H 20 137/77 97 Laboratory Results Laboratory Results WBC 15.63 K/ul (4.8-10.8) H 01/13/22 21:40 RBC 6.09 M/uL (4.63-6.08) H 01/13/22 21:40 Hgb 19.1 g/dl (14.0-18.0) H 01/13/22 21:40 Hct 54.4 % (40.1-51.0) H 01/13/22 21:40 MCV 89.3 fL (80.0-100.0) 01/13/22 21:40 MCH 31.4 pg (25.0-34.0) 01/13/22 21:40 MCHC 35.1 g/dL (32.0-36.0) 01/13/22 21:40 RDW Std Deviation 45.1 fL (36.4-46.3) 01/13/22 21:40 RDW Coeff of Mariah 14.0 % (11.5-14.5) 01/13/22 21:40 Plt Count 284 K/uL (130-400) 01/13/22 21:40 MPV 11.4 fL (9.4-12.4) 01/13/22 21:40 Immature Gran % (Auto) 0.6 % 01/13/22 21:40 Neut % (Auto) 84.1 % 01/13/22 21:40 Lymph % (Auto) 10.7 % 01/13/22 21:40 [place]y % (Auto) 4.2 % 01/13/22 21:40 Eos % (Auto) 0.1 % 01/13/22 21:40 Baso % (Auto) 0.3 % 01/13/22 21:40 Neut # (Auto) 13.15 K/uL (1.4-6.5) H 01/13/22 21:40 Lymph # (Auto) 1.67 K/uL (1.2-3.4) 01/13/22 21:40 Ripley # (Auto) 0.66 K/uL (0.24-0.82) 01/13/22 21:40 Eos # (Auto) 0.01 K/uL (0-0.50) 01/13/22 21:40 Baso # (Auto) 0.05 K/uL (0-0.2) 01/13/22 21:40 Immature Gran # (Auto) 0.09 K/uL (0.00-0.02) H 01/13/22 21:40 PT 10.2 Seconds (9.0-12.0) 01/13/22 21:40 INR 1.0 (0.9-1.1) 01/13/22 21:40 APTT 28.4 Seconds (21.0-31.0) 01/13/22 21:40 PTT Ratio 1.0 01/13/22 21:40 VBG pH 7.25 (7.36-7.41) L 01/13/22 22:45 VBG pCO2 29 mmHg (38-50) L 01/13/22 22:45 VBG pO2 52 mmHg 01/13/22 22:45 VBG HCO3 13 mmol/L 01/13/22 22:45 VBG O2 Saturation 84.0 % 01/13/22 22:45 VBG Base Excess -13.1 mEq/L 01/13/22 22:45 Sodium 128 mmol/L (136-145) L 01/13/22 21:40 Potassium 5.8 mmol/L (3.5-5.1) H 01/13/22 21:40 Chloride 90 mmol/L (98-107) L 01/13/22 21:40 Carbon Dioxide 15 mmol/L (21-32) L 01/13/22 21:40 Anion Gap 23 (3-11) H 01/13/22 21:40 BUN 60 mg/dl (6-23) H 01/13/22 21:40 Creatinine 1.79 mg/dl (0.6-1.4) H 01/13/22 21:40 Est Cr Clr Drug Dosing 38.1 ml/min 01/13/22 21:40 Est GFR ( Amer) 46.7 ml/min 01/13/22 21:40 Est GFR (Non-Af Amer) 40.3 ml/min 01/13/22 21:40 BUN/Creatinine Ratio 33.5 (10-20) H 01/13/22 21:40 Glucose 786 mg/dl (70-99(Fasting)) H* 01/13/22 21:40 POC Glucose 507 mg/dl (70-99) H* 01/14/22 00:01 Osmolality 355 mOsm/kg (280-300) H* 01/13/22 21:40 Calcium 11.2 mg/dl (8.5-10.1) H 01/13/22 21:40 Phosphorus 6.6 mg/dl (2.5-4.9) H 01/13/22 21:40 Magnesium 2.5 mg/dl (1.7-2.4) H 01/13/22 21:40 Total Bilirubin 0.7 mg/dl (0.2-1.0) 01/13/22 21:40 AST 9 U/L (13-39) L 01/13/22 21:40 ALT 13 U/L (7-52) 01/13/22 21:40 Alkaline Phosphatase 180 U/L (34-104) H 01/13/22 21:40 Total Protein 9.0 gm/dl (6.0-8.3) H 01/13/22 21:40 Albumin 4.6 gm/dl (3.4-5.0) 01/13/22 21:40 Globulin 4.4 gm/dl (2.5-4.0) H 01/13/22 21:40 Albumin/Globulin Ratio 1.0 (0.9-2) 01/13/22 21:40 Procalcitonin 0.11 ng/ml (0-0.5) 01/13/22 21:40 SARS-CoV-2, RNA, NAAT NEGATIVE (NEGATIVE) 01/13/22 22:47 Impressions Chest X-Ray 01/13/22 21:52 XR chest 1V portable CLINICAL HISTORY: SOB TECHNIQUE: Single frontal radiograph of the chest was obtained. Comparison: Comparison is made to chest radiograph 12/01/2021 FINDINGS: No lines and tubes are seen. The cardiomediastinal silhouette is normal. Faint bibasilar airspace opacities are seen. No evidence of pleural effusion or pneumothorax. IMPRESSION: Faint bibasilar airspace opacities which may represent atelectasis, pneumonia, and/or aspiration. ACT 112: Negative or not required by law. Electronically signed by: Richard Church M.D. 01/13/2022 10:[address] head initial read: No acute abnormality. Compared to MRI brain 12/02/2021, CT brain 12/01/2021. No acute intracranial hemorrhage or abnormal extra-axial fluid collection. No acute stroke. Ventricles and sulci normal in size for age. No midline shift. No paranasal sinus air-fluid level. No fracture. Unchanged sclerotic bilateral mastoid air cells CT abdomen pelvis initial read: Dense nodular stool throughout the colon suggestive of constipation. No obstruction. No fluid collection or free air. Interstitial and airspace opacities at the lung bases. Liver, gallbladder, pancreas, and spleen are unremarkable. EKG as per my interpretation :Rate 105, sinus tachycardia, RAD, T wave abnormality septal leads
[2022-01-14 02:19] LABS: Troponin I High Sensitivity 18.1 pg/ml (0-20)
[2022-01-14 02:58] LABS: Appearance Urine Clear (Clear); Bacteria Urine Automated Negative (Negative); Bilirubin Urine Negative (Negative); Blood Urine Negative (Negative); Cast Urine Automated 0 /lpf (0-5); Color Urine Yellow; Glucose Urine UA 3+ (Negative); Ketones Urine 2+ (Negative); Leukocyte Esterase Urine Negative (Negative); Nitrite Urine Negative (Negative); Protein Urine 1+ (Negative); RBC Urine Automated 0-4 /hpf (0-4); Specific Gravity Urine 1.025 (1.000-1.030); Urobilinogen Urine Negative (Negative); WBC Urine Automated 0 /hpf (0-5)
[2022-01-14] MEDS ORDERED: METOPROLOL SUCC 25MG EXT REL TAB PO STA (03:22)
[2022-01-14 03:23] LABS: Base Excess VBG -6.4 mEq/L; HCO3 VBG 19 mmol/L; Oxygen Saturation VBG 83.7 %; PCO2 VBG 37 mmHg (38-50); PO2 VBG 50 mmHg; pH VBG 7.32 (7.36-7.41)
[2022-01-14 04:08] LABS: BUN Creatinine Ratio 37.1 (10-20); Calcium 9.6 mg/dl (8.5-10.1); Creatinine Clr Calc Pharmacy 51.7 ml/min; Est GFR (African American) 67.5 ml/min; Est GFR (Non-African American) 58.2 ml/min; Potassium 3.9 mmol/L (3.5-5.1)
[2022-01-14] MEDS ORDERED: LACTATED RINGER'S 1,000 ML IV ONE (05:11)
[2022-01-14] MEDS ORDERED: POLYETHYLENE (MIRALAX) 17 GM PACK PO PRN (05:11)
[2022-01-14] MEDS ORDERED: oxyCODONE HCL IR 5 MG TAB (IMMEDIATE RELEASE) PO PRN (05:34)
[2022-01-14] MEDS ORDERED: HHS GOAL RANGE 250-350 mg/dl ONE (05:34)
[2022-01-14] MEDS ORDERED: PROMETHAZINE HCL 6.25 MG in SODIUM CHLORIDE 0.9% 50 ML IV PRN (05:34)
[2022-01-14] MEDS ORDERED: STAT IV Infusion **Titration per Protocol STA ×2 (05:34)
[2022-01-14] MEDS ORDERED: D5W AND LACTATED RINGERS 1,000 ML IV SCH (07:15)
[2022-01-14] MEDS: PANTOprazole 40 MG TAB PO SCH (07:45)
[2022-01-14] MEDS: MULTIVITAMIN TAB PO SCH (07:45)
[2022-01-14] MEDS: DOCUSATE SODIUM/SENNA 50/8.6MG TAB PO SCH (07:45)
[2022-01-14] MEDS: ASPIRIN 81 MG ECTAB PO SCH (07:46)
[2022-01-14] MEDS: CLOPIDOGREL BISULFATE 75 MG TAB PO SCH (07:46)
[2022-01-14] MEDS: ATORVASTATIN 40 MG TAB PO SCH (07:46)
[2022-01-14] MEDS: HEPARIN SOD 5,000 UNIT/0.5 ML VIAL SQ SCH ×5 (07:47→22:40)
[2022-01-14] MEDS: INSULIN ASPART PER UNIT SC SCH ×5 (07:47→20:36)
[2022-01-14] MEDS ORDERED: PHARMACY GLYCEMIC MGMT CONSULT PRN (07:50)
[2022-01-14 08:02] LABS: BUN Creatinine Ratio 37.7 (10-20); Calcium 9.7 mg/dl (8.5-10.1); Est GFR (Non-African American) 75.9 ml/min; Potassium 3.9 mmol/L (3.5-5.1)
--- NOTE | 2022-01-14 08:16 | CT Scan Report ---
CT head/brain wo con CLINICAL HISTORY: kirkpatrick and dizziness COMPARISON STUDY: 12/01/2021 CT DOSE: 614.27 mGy.cm TECHNIQUE: Standard CT of the Brain was performed without IV contrast. A dose lowering technique was utilized adhering to the principles of ALARA. FINDINGS: Extraaxial space: There is no evidence for subdural hematoma. There are no extra-axial fluid collecti ons. Ventricles and cisterns: The ventricles are normal in size and configuration. There is no evidence fo r midline shift or mass effect. Parenchyma: There is no subarachnoid or intraparenchymal hemorrhage. There is no evidence for an acut e infarct or cerebral edema. There is homogeneous attenuation of the brain parenchyma. There are no g ross mass lesions. Osseous structures: There is no evidence for an acute fracture. The visualized paranasal sinuses are clear. The mastoid air cells are clear bilaterally. Soft tissues: There is no evidence for focal soft tissue swelling. IMPRESSION: 1. No acute intracerebral pathology. ACT 112: Negative or not required by law. Electronically signed by: Froilan Turner M.D. 01/14/2022 8:14 AM
--- NOTE | 2022-01-14 08:24 | CT Scan Report ---
CT abd pelvis wo con CLINICAL HISTORY: Diffuse abdominal pain COMPARISON STUDY: 12/01/2021 CT DOSE: 342.02 mGy.cm TECHNIQUE: Standard CT of the Abdomen and Pelvis was performed without IV contrast. The patient did not receive oral contrast. A dose lowering technique was utilized adhering to the principles of KRISTOPHER Ramirez. FINDINGS: Lung base: Interlobular septal thickening is again seen at both lung bases characteristic of underlyi ng interstitial lung disease. No honeycombing is present. Abdominal cavity: There is no evidence for abdominal mass, adenopathy or ascites. Liver: The liver is homogeneous in attenuation on these limited noncontrast images.. Spleen: The spleen is homogeneous in attenuation on these limited noncontrast images. Pancreas: Compared to previous examination, there is now diffuse edema present throughout the body th e pancreas most characteristic of early acute pancreatitis. No peripancreatic fluid collections are i dentified. No gross mass lesions are seen. Gall Bladder: The gallbladder is well distended with no evidence for cholelithiasis, wall thickening or pericholecystic edema.. Adrenal glands: The adrenal glands are normal in size and attenuation on these limited noncontrast im ages. Kidneys: The kidneys are homogeneous in attenuation on these limited noncontrast images. There is no evidence for gross renal mass, calculus or hydronephrosis bilaterally. Bowel: The stomach is distended with liquid and food stuff. The bowel loops are normally placed withi n the abdomen and pelvis without evidence for dilatation or obstruction. There is no evidence for mas s lesion. There is mild fecal stasis without evidence for impaction or obstruction. There are no infl ammatory changes present. There is no evidence for free air. Bladder: There is no evidence for focal bladder wall thickening, calculus or diverticulum. : There is no evidence for pelvic mass or adenopathy. The prostate is mildly enlarged. Vasculature: There is no evidence for focal aneurysmal dilatation of the abdominal aorta. Atheroscler otic calcification is present. Osseous structures: There is no acute osseous pathology. Mild degenerative changes are seen within th e spine. IMPRESSION: 1. Compared to the previous study, diffuse edematous changes are now seen throughout the body of the pancreas highly suspicious for acute pancreatitis. No peripancreatic fluid collections are identified . 2. Mild fecal stasis without evidence for impaction or obstruction. 3. Additional nonacute findings are delineated above. ACT 112: Negative or not required by law. Electronically signed by: Froilan Turner M.D. 01/14/2022 8:22 AM
[2022-01-14] MEDS: LANTUS PER UNIT CHARGE SQ SCH ×2 (09:56→20:36)
[2022-01-14 11:32] LABS: BUN Creatinine Ratio 34.4 (10-20); Calcium 9.9 mg/dl (8.5-10.1); Creatinine Clr Calc Pharmacy 75.3 ml/min; Est GFR (African American) 103.1 ml/min; Est GFR (Non-African American) 88.9 ml/min; Phosphorus 2.3 mg/dl (2.5-4.9); Potassium 3.9 mmol/L (3.5-5.1)
--- NOTE | 2022-01-14 12:22 | Electrocardiogram Report ---
Test Reason : Blood Pressure : / mmHG Vent. Rate : 105 BPM Atrial Rate : 105 BPM P-R Int : 140 ms QRS Dur : 098 ms QT Int : 336 ms P-R-T Axes : 079 099 061 degrees QTc Int : 444 ms Sinus tachycardia Biatrial enlargement T waves conccerning for electrolyte abnormality or ischemia Rightward axis Anterior infarct (cited on or before 06-AUG-2013) Abnormal ECG When compared with ECG of 01-DEC-2021 18:11, T wave inversion no longer evident in Inferior leads Confirmed by Ramu Villa ([id number]) on 01/14/2022 12:21:51 PM Referred By: REFERRED SELF Confirmed By:Barry Villa
--- NOTE | 2022-01-14 13:54 | Pharmacy Report ---
Pharmacy Glycemic Short Note 2 - Date of Service January 14, 2022 - Glycemic Short BSG Results (Last 24 hours): 01/13/22 01/13/22 01/13/22 21:29 21:30 21:40 Glucose 786 H* POC Glucose > 600 H* > 600 H* 01/14/22 01/14/22 01/14/22 00:01 02:37 03:10 Glucose 409 H* POC Glucose 507 H* 425 H* 01/14/22 01/14/22 01/14/22 05:34 06:34 07:00 Glucose 239 H POC Glucose 274 H 243 H 01/14/22 01/14/22 01/14/22 07:44 08:47 09:53 Glucose POC Glucose 236 H 180 H 128 H 01/14/22 01/14/22 01/14/22 10:12 10:28 10:59 Glucose 161 H POC Glucose 129 H 151 H 01/14/22 11:38 Glucose POC Glucose 166 H OUTPATIENT ANTIDIABETIC REGIMEN: * Lantus 36 units HS * Metformin 1g BID * Novolog 8 units with breakfast and lunch, 10 units with dinner + if BSG > 125mg/dl CF 1:25 ASSESSMENT: * 62 year old male admitted early this AM in DKA d/t missed insulin doses, started at 6units/hr, ran this rate x 6 hours * Gap closed, euglycemic, DC insulin drip, overlap with Lantus x 3 hours * Begin basal bolus insulin * Patient remains on D5LR@80cc/hr for pancreatitis * Started clear liquid diet at lunch PLAN FOR INPATIENT GLYCEMIC CONTROL: * Hold outpatient diabetes medications * DC insulin drip at 1000 (on hold per protocol) * Basal insulin * Lantus 36 units SQ x1 now and then HS * Bolus insulin * NovoLog per scale ACHS or Q6hrs while NPO * Goal Range: Low 110 mg/dL - High 140 mg/dL * Correction Factor: 20 mg/dL/unit * Nutritional / Prandial insulin per carb ratio of 1 unit per 7 grams CHO consumed
[2022-01-14] MEDS: LACTATED RINGER'S 1,000 ML IV SCH (15:51)
[2022-01-14] MEDS: POLYETHYLENE (MIRALAX) 17 GM PACK PO SCH (17:05)
[2022-01-15] MEDS: LACTATED RINGER'S 1,000 ML IV SCH ×3 (00:25→19:30)
[2022-01-15] MEDS: CARBOHYDRATES FOR HYPOGLYCEMIA PO PRN ×2 (00:37→00:52)
[2022-01-15] MEDS: INSULIN ASPART PER UNIT SC SCH ×6 (00:43→21:13)
[2022-01-15] MEDS: HEPARIN SOD 5,000 UNIT/0.5 ML VIAL SQ SCH ×3 (05:20→21:14)
[2022-01-15 06:07] LABS: BUN Creatinine Ratio 21.1 (10-20); Calcium 9.1 mg/dl (8.5-10.1); Creatinine Clr Calc Pharmacy 101.4 ml/min; Est GFR (African American) 118.2 ml/min; Potassium 3.6 mmol/L (3.5-5.1)
[2022-01-15 06:20] LABS: Hematocrit (blood only) 41.9 % (40.1-51.0); Hemoglobin 15.4 g/dl (14.0-18.0); Mean Corpuscular Hemoglobin 32.4 pg (25.0-34.0); Mean Corpuscular Hgb Conc 36.8 g/dL (32.0-36.0); Mean Platelet Volume 10.9 fL (9.4-12.4); Platelet Count 140 K/uL (130-400); RDW Coefficient of Variation 14.1 % (11.5-14.5); RDW Standard Deviation 44.9 fL (36.4-46.3); Red Blood Count 4.76 M/uL (4.63-6.08); White Blood Count 8.05 K/ul (4.8-10.8)
[2022-01-15 06:21] LABS: Basophils # (auto) 0.02 K/uL (0-0.2); Basophils % (auto) 0.2 %; Eosinophils # (auto) 0.08 K/uL (0-0.50); Immature Granulocytes # (auto) 0.04 K/uL (0.00-0.02); Immature Granulocytes % (auto) 0.5 %; Lymphocytes # (auto) 1.68 K/uL (1.2-3.4); Lymphocytes % (auto) 20.9 %; Monocytes # (auto) 0.58 K/uL (0.24-0.82); Monocytes % (auto) 7.2 %; Neutrophils # (auto) 5.65 K/uL (1.4-6.5); Neutrophils % (auto) 70.2 %; Platelet Estimate Normal (Normal)
[2022-01-15] MEDS: ATORVASTATIN 40 MG TAB PO SCH (08:10)
[2022-01-15] MEDS: ASPIRIN 81 MG ECTAB PO SCH (08:10)
[2022-01-15] MEDS: PANTOprazole 40 MG TAB PO SCH (08:10)
[2022-01-15] MEDS: DOCUSATE SODIUM/SENNA 50/8.6MG TAB PO SCH (08:11)
[2022-01-15] MEDS: CLOPIDOGREL BISULFATE 75 MG TAB PO SCH (08:11)
[2022-01-15] MEDS: MULTIVITAMIN TAB PO SCH (08:11)
[2022-01-15] MEDS: METOPROLOL SUCC 25MG EXT REL TAB PO SCH (08:11)
[2022-01-15] MEDS: POLYETHYLENE (MIRALAX) 17 GM PACK PO SCH (08:12)
--- NOTE | 2022-01-15 10:51 | Pharmacy Report ---
Pharmacy Glycemic Short Note 2 - Date of Service January 15, 2022 - Glycemic Short BSG Results (Last 24 hours): 01/14/22 01/14/22 01/14/22 10:59 11:38 16:48 Glucose 161 H POC Glucose 166 H 294 H 01/14/22 01/14/22 01/15/22 20:15 20:19 00:27 Glucose POC Glucose 312 H* 299 H 54 L* 01/15/22 01/15/22 01/15/22 00:29 00:53 01:09 Glucose POC Glucose 62 L* 60 L* 85 01/15/22 01/15/22 01/15/22 03:59 05:18 07:46 Glucose 191 H POC Glucose 201 H 119 H OUTPATIENT ANTIDIABETIC REGIMEN: * Lantus 36 units HS * Metformin 1g BID * Novolog 8 units with breakfast and lunch, 10 units with dinner + if BSG > 125mg/dl CF 1:25 ASSESSMENT: 01/15 * Patient transitioned off of insulin drip yesterady, did have one episode of hypoglycemia last night, treated with 15g CHO x 2, this was likely due to excess correctional insulin in combination with fluids changing to LR from D5LR. Loosen CF to prevent further hypoglycemia. * Continue home Lantus dose for now. 01/14 * 62 year old male admitted early this AM in DKA d/t missed insulin doses, started at 6units/hr, ran this rate x 6 hours * Gap closed, euglycemic, DC insulin drip, overlap with Lantus x 3 hours * Begin basal bolus insulin * Patient remains on D5LR@80cc/hr for pancreatitis * Started clear liquid diet at lunch PLAN FOR INPATIENT GLYCEMIC CONTROL: * Hold outpatient diabetes medications * Basal insulin * Lantus 36 units SQ HS * Bolus insulin * NovoLog per scale ACHS or Q6hrs while NPO * Goal Range: Low 110 mg/dL - High 140 mg/dL * Correction Factor: 25 mg/dL/unit * Nutritional / Prandial insulin per carb ratio of 1 unit per 7 grams CHO consumed
--- NOTE | 2022-01-15 11:51 | Emergency Department Note ---
ED Provider Note CHIEF COMPLAINT: [] HISTORY OF PRESENT ILLNESS: This [] patient presents to the emergency department [] REVIEW OF SYSTEMS: A review of systems was performed with positives and pertinent negatives listed in the history of present illness. 10 systems were reviewed and are otherwise negative. ALLERGIES: see below MEDICATIONS: see below PMH: see below SOCIAL HISTORY: see below DDx: [] PHYSICAL EXAM: Vital signs reviewed. General: Well-appearing, in no significant distress. HEENT: No scleral icterus, PERRLA, neck supple. Atraumatic. Cardiovascular: Regular rate and rhythm, no extra sounds. Pulmonary: Clear to auscultation bilaterally, normal work of breathing. Abdomen: Soft, nontender, nondistended, positive bowel sounds. Musculoskeletal: Atraumatic, no peripheral edema. Neurologic: Patient awake alert and oriented x 3, speech is clear Skin: Warm, dry, no rash EMERGENCY DEPARTMENT COURSE/MDM: [] MONITORING: An order for cardiac monitoring was placed and the patient is noted to be in a [] at [] beats per minute. RADIOLOGY: EKG: DISPOSITION: Past Med/Surg History Medical History Carpal tunnel syndrome Diabetes DKA (diabetic ketoacidoses) Hyperkalemia Hyperlipidemia Hypertension Irritable bowel syndrome Tobacco use Surgical History History of carpal tunnel surgery History of foot surgery Family History Other Diabetes Heart disease Social History Smoking Status: Current every day smoker Tobacco Type: Cigarettes Cigarettes Per Day: Previously had quit for 8 years but resumed smoking 5 cig/day last month; Second Hand Exposure: Yes; Do You Dip or Chew Tobacco: No; Tobacco Cessation Education Requested by Patient: No Hx Alcohol Use: No Hx Substance Use: No Preferred Language: Arabic Communication Ability: Effective [employer] Required: No Beliefs That Will Affect Care: None marital status: Current Living Situation: Family Other Information That Helps Us Care for You: No Feels Safe at Home: Yes Safety Concerns: Feels Safe At This Time Assistive Devices: Denture - Upper, Denture - Lower and Glasses Allergies Allergies Allergy/AdvReac Type Severity Reaction Status Date / Time erythromycin base Allergy Mild Abdominal Verified 01/13/22 22:38 Pain Home Meds Home Medications Medication Instructions Recorded Confirmed metformin 1,000 mg tablet 1,000 mg PO BIDM 03/11/19 01/13/22 omeprazole 20 mg capsule,delayed 20 mg PO QAM 03/11/19 01/13/22 release aspirin 81 mg tablet,delayed 81 mg PO QAM 06/17/20 01/13/22 release insulin aspart U-100 100 unit/mL See Rx Instructions .ROUTE .COMPLEX 06/17/20 01/13/22 (3 mL) subcutaneous pen (Novolog Flexpen U-100 Insulin aspart) multivitamin 1 tab PO QAM 06/17/20 01/13/22 metoprolol succinate 25 mg 12.5 mg PO DAILY 09/19/20 01/13/22 tablet,extended release 24 hr acetaminophen 500 mg tablet 500 mg PO Q6H PRN 08/01/21 01/13/22 (Acetaminophen Extra Strength) insulin glargine 100 unit/mL (3 36 unit SUBCUT HS 08/01/21 01/13/22 mL) subcutaneous pen (Lantus Solostar U-100 Insulin) albuterol sulfate 90 mcg/actuation 2 puff INHALATION Q4 PRN 12/01/21 01/13/22 aerosol inhaler (Ventolin HFA) atorvastatin 40 mg tablet 40 mg PO DAILY 12/01/21 01/13/22 calcium carbonate 200 mg calcium 200 mg PO DAILY PRN 12/01/21 01/13/22 (500 mg) chewable tablet (Calcium Antacid) dulaglutide 0.75 mg/0.5 mL 0.75 mg SUBCUT WK 12/01/21 01/13/22 subcutaneous pen injector empagliflozin 10 mg tablet 10 mg PO DAILY 12/01/21 01/13/22 losartan 50 mg tablet 50 mg PO DAILY 12/01/21 01/13/22 Previous Rx's Medication Instructions Recorded clopidogrel 75 mg tablet 75 mg PO QAM #30 tab 12/05/21 oxycodone 5 mg tablet 5 mg PO Q4H PRN #5 tab 12/05/21 Results & Data (ED) Laboratory Data Result diagrams: 01/15/22 05:18 01/15/22 05:18 Lab Results 01/13/22 01/13/22 01/13/22 Range/Units 21:24 21:29 21:30 WBC (4.8-10.8) K/ul RBC (4.63-6.08) M/uL Hgb (14.0-18.0) g/dl Hct (40.1-51.0) % MCV (80.0-100.0) fL MCH (25.0-34.0) pg MCHC (32.0-36.0) g/dL RDW Std Deviation (36.4-46.3) fL RDW Coeff of Mariah (11.5-14.5) % Plt Count (130-400) K/uL MPV (9.4-12.4) fL Immature Gran % (Auto) % Neut % (Auto) % Lymph % (Auto) % [place] % (Auto) % Eos % (Auto) % Baso % (Auto) % Neut # (Auto) (1.4-6.5) K/uL Lymph # (Auto) (1.2-3.4) K/uL [place] # (Auto) (0.24-0.82) K/uL Eos # (Auto) (0-0.50) K/uL Baso # (Auto) (0-0.2) K/uL Immature Gran # (Auto) (0.00-0.02) K/uL PT (9.0-12.0) Seconds INR (0.9-1.1) APTT (21.0-31.0) Seconds PTT Ratio VBG pH (7.36-7.41) VBG pCO2 (38-50) mmHg VBG pO2 mmHg VBG HCO3 mmol/L VBG O2 Saturation % VBG Base Excess mEq/L Sodium (136-145) mmol/L Potassium (3.5-5.1) mmol/L Chloride (98-107) mmol/L Carbon Dioxide (21-32) mmol/L Anion Gap (3-11) BUN (6-23) mg/dl Creatinine (0.6-1.4) mg/dl Est Cr Clr Drug Dosing ml/min Est GFR ( Amer) ml/min Est GFR (Non-Af Amer) ml/min BUN/Creatinine Ratio (10-20) Glucose (70-99(Fasting)) mg/dl POC Glucose > 600 H* > 600 H* (70-99) mg/dl Osmolality (280-300) mOsm/kg Calcium (8.5-10.1) mg/dl Phosphorus (2.5-4.9) mg/dl Magnesium (1.7-2.4) mg/dl Total Bilirubin (0.2-1.0) mg/dl AST (13-39) U/L ALT (7-52) U/L Alkaline Phosphatase (34-104) U/L Troponin I High Sens (0-20) pg/ml Total Protein (6.0-8.3) gm/dl Albumin (3.4-5.0) gm/dl Globulin (2.5-4.0) gm/dl Albumin/Globulin Ratio (0.9-2) Lipase (11-82) U/L Procalcitonin (0-0.5) ng/ml PTH Intact (12.0-88.0) pg/ml Urine Color Yellow Urine Appearance Clear (Clear) Urine pH 5.0 (4.5-7.5) Ur Specific [place] 1.025 (1.000-1.030) Urine Protein 1+ H (Negative) Urine Glucose (UA) 3+ H (Negative) Urine Ketones 2+ H (Negative) Urine Blood Negative (Negative) Urine Nitrite Negative (Negative) Urine Bilirubin Negative (Negative) Urine Urobilinogen Negative (Negative) Ur Leukocyte Esterase Negative (Negative) Urine WBC (Auto) 0 (0-5) /hpf Urine RBC (Auto) 0-4 (0-4) /hpf U Hyaline Cast (Auto) 0 (0-5) /lpf U Epithel Cells (Auto) 5-10 H (0-5) /lpf Urine Bacteria (Auto) Negative (Negative) SARS-CoV-2, RNA, NAAT (NEGATIVE) 01/13/22 01/13/22 01/13/22 Range/Units 21:40 21:40 21:40 WBC 15.63 H (4.8-10.8) K/ul RBC 6.09 H (4.63-6.08) M/uL Hgb 19.1 H (14.0-18.0) g/dl Hct 54.4 H (40.1-51.0) % MCV 89.3 (80.0-100.0) fL MCH 31.4 (25.0-34.0) pg MCHC 35.1 (32.0-36.0) g/dL RDW Std Deviation 45.1 (36.4-46.3) fL RDW Coeff of Mariah 14.0 (11.5-14.5) % Plt Count 284 (130-400) K/uL MPV 11.4 (9.4-12.4) fL Immature Gran % (Auto) 0.6 % Neut % (Auto) 84.1 % Lymph % (Auto) 10.7 % [place] % (Auto) 4.2 % Eos % (Auto) 0.1 % Baso % (Auto) 0.3 % Neut # (Auto) 13.15 H (1.4-6.5) K/uL Lymph # (Auto) 1.67 (1.2-3.4) K/uL [place] # (Auto) 0.66 (0.24-0.82) K/uL Eos # (Auto) 0.01 (0-0.50) K/uL Baso # (Auto) 0.05 (0-0.2) K/uL Immature Gran # (Auto) 0.09 H (0.00-0.02) K/uL PT 10.2 (9.0-12.0) Seconds INR 1.0 (0.9-1.1) APTT 28.4 (21.0-31.0) Seconds PTT Ratio 1.0 VBG pH (7.36-7.41) VBG pCO2 (38-50) mmHg VBG pO2 mmHg VBG HCO3 mmol/L VBG O2 Saturation % VBG Base Excess mEq/L Sodium 128 L (136-145) mmol/L Potassium 5.8 H (3.5-5.1) mmol/L Chloride 90 L (98-107) mmol/L Carbon Dioxide 15 L (21-32) mmol/L Anion Gap 23 H (3-11) BUN 60 H (6-23) mg/dl Creatinine 1.79 H (0.6-1.4) mg/dl Est Cr Clr Drug Dosing 38.1 ml/min Est GFR ( Amer) 46.7 ml/min Est GFR (Non-Af Amer) 40.3 ml/min BUN/Creatinine Ratio 33.5 H (10-20) Glucose 786 H* (70-99(Fasting)) mg/dl POC Glucose (70-99) mg/dl Osmolality (280-300) mOsm/kg Calcium 11.2 H (8.5-10.1) mg/dl Phosphorus (2.5-4.9) mg/dl Magnesium 2.5 H (1.7-2.4) mg/dl Total Bilirubin 0.7 (0.2-1.0) mg/dl AST 9 L (13-39) U/L ALT 13 (7-52) U/L Alkaline Phosphatase 180 H (34-104) U/L Troponin I High Sens (0-20) pg/ml Total Protein 9.0 H (6.0-8.3) gm/dl Albumin 4.6 (3.4-5.0) gm/dl Globulin 4.4 H (2.5-4.0) gm/dl Albumin/Globulin Ratio 1.0 (0.9-2) Lipase (11-82) U/L Procalcitonin (0-0.5) ng/ml PTH Intact (12.0-88.0) pg/ml Urine Color Urine Appearance (Clear) Urine pH (4.5-7.5) Ur Specific [place] (1.000-1.030) Urine Protein (Negative) Urine Glucose (UA) (Negative) Urine Ketones (Negative) Urine Blood (Negative) Urine Nitrite (Negative) Urine Bilirubin (Negative) Urine Urobilinogen (Negative) Ur Leukocyte Esterase (Negative) Urine WBC (Auto) (0-5) /hpf Urine RBC (Auto) (0-4) /hpf U Hyaline Cast (Auto) (0-5) /lpf U Epithel Cells (Auto) (0-5) /lpf Urine Bacteria (Auto) (Negative) SARS-CoV-2, RNA, NAAT (NEGATIVE) 01/13/22 01/13/22 01/13/22 Range/Units 21:40 21:40 21:40 WBC (4.8-10.8) K/ul RBC (4.63-6.08) M/uL Hgb (14.0-18.0) g/dl Hct (40.1-51.0) % MCV (80.0-100.0) fL MCH (25.0-34.0) pg MCHC (32.0-36.0) g/dL RDW Std Deviation (36.4-46.3) fL RDW Coeff of Mariah (11.5-14.5) % Plt Count (130-400) K/uL MPV (9.4-12.4) fL Immature Gran % (Auto) % Neut % (Auto) % Lymph % (Auto) % [place] % (Auto) % Eos % (Auto) % Baso % (Auto) % Neut # (Auto) (1.4-6.5) K/uL Lymph # (Auto) (1.2-3.4) K/uL [place] # (Auto) (0.24-0.82) K/uL Eos # (Auto) (0-0.50) K/uL Baso # (Auto) (0-0.2) K/uL Immature Gran # (Auto) (0.00-0.02) K/uL PT (9.0-12.0) Seconds INR (0.9-1.1) APTT (21.0-31.0) Seconds PTT Ratio VBG pH (7.36-7.41) VBG pCO2 (38-50) mmHg VBG pO2 mmHg VBG HCO3 mmol/L VBG O2 Saturation % VBG Base Excess mEq/L Sodium (136-145) mmol/L Potassium (3.5-5.1) mmol/L Chloride (98-107) mmol/L Carbon Dioxide (21-32) mmol/L Anion Gap (3-11) BUN (6-23) mg/dl Creatinine (0.6-1.4) mg/dl Est Cr Clr Drug Dosing ml/min Est GFR ( Amer) ml/min Est GFR (Non-Af Amer) ml/min BUN/Creatinine Ratio (10-20) Glucose (70-99(Fasting)) mg/dl POC Glucose (70-99) mg/dl Osmolality 355 H* (280-300) mOsm/kg Calcium (8.5-10.1) mg/dl Phosphorus 6.6 H (2.5-4.9) mg/dl Magnesium (1.7-2.4) mg/dl Total Bilirubin (0.2-1.0) mg/dl AST (13-39) U/L ALT (7-52) U/L Alkaline Phosphatase (34-104) U/L Troponin I High Sens (0-20) pg/ml Total Protein (6.0-8.3) gm/dl Albumin (3.4-5.0) gm/dl Globulin (2.5-4.0) gm/dl Albumin/Globulin Ratio (0.9-2) Lipase (11-82) U/L Procalcitonin 0.11 (0-0.5) ng/ml PTH Intact (12.0-88.0) pg/ml Urine Color Urine Appearance (Clear) Urine pH (4.5-7.5) Ur Specific [place] (1.000-1.030) Urine Protein (Negative) Urine Glucose (UA) (Negative) Urine Ketones (Negative) Urine Blood (Negative) Urine Nitrite (Negative) Urine Bilirubin (Negative) Urine Urobilinogen (Negative) Ur Leukocyte Esterase (Negative) Urine WBC (Auto) (0-5) /hpf Urine RBC (Auto) (0-4) /hpf U Hyaline Cast (Auto) (0-5) /lpf U Epithel Cells (Auto) (0-5) /lpf Urine Bacteria (Auto) (Negative) SARS-CoV-2, RNA, NAAT (NEGATIVE) 01/13/22 01/13/22 01/13/22 Range/Units 21:40 22:45 22:47 WBC (4.8-10.8) K/ul RBC (4.63-6.08) M/uL Hgb (14.0-18.0) g/dl Hct (40.1-51.0) % MCV (80.0-100.0) fL MCH (25.0-34.0) pg MCHC (32.0-36.0) g/dL RDW Std Deviation (36.4-46.3) fL RDW Coeff of Mariah (11.5-14.5) % Plt Count (130-400) K/uL MPV (9.4-12.4) fL Immature Gran % (Auto) % Neut % (Auto) % Lymph % (Auto) % [place] % (Auto) % Eos % (Auto) % Baso % (Auto) % Neut # (Auto) (1.4-6.5) K/uL Lymph # (Auto) (1.2-3.4) K/uL [place] # (Auto) (0.24-0.82) K/uL Eos # (Auto) (0-0.50) K/uL Baso # (Auto) (0-0.2) K/uL Immature Gran # (Auto) (0.00-0.02) K/uL PT (9.0-12.0) Seconds INR (0.9-1.1) APTT (21.0-31.0) Seconds PTT Ratio VBG pH 7.25 L (7.36-7.41) VBG pCO2 29 L (38-50) mmHg VBG pO2 52 mmHg VBG HCO3 13 mmol/L VBG O2 Saturation 84.0 % VBG Base Excess -13.1 mEq/L Sodium (136-145) mmol/L Potassium (3.5-5.1) mmol/L Chloride (98-107) mmol/L Carbon Dioxide (21-32) mmol/L Anion Gap (3-11) BUN (6-23) mg/dl Creatinine (0.6-1.4) mg/dl Est Cr Clr Drug Dosing ml/min Est GFR ( Amer) ml/min Est GFR (Non-Af Amer) ml/min BUN/Creatinine Ratio (10-20) Glucose (70-99(Fasting)) mg/dl POC Glucose (70-99) mg/dl Osmolality (280-300) mOsm/kg Calcium (8.5-10.1) mg/dl Phosphorus (2.5-4.9) mg/dl Magnesium (1.7-2.4) mg/dl Total Bilirubin (0.2-1.0) mg/dl AST (13-39) U/L ALT (7-52) U/L Alkaline Phosphatase (34-104) U/L Troponin I High Sens 18.1 D (0-20) pg/ml Total Protein (6.0-8.3) gm/dl Albumin (3.4-5.0) gm/dl Globulin (2.5-4.0) gm/dl Albumin/Globulin Ratio (0.9-2) Lipase 123 H (11-82) U/L Procalcitonin (0-0.5) ng/ml PTH Intact (12.0-88.0) pg/ml Urine Color Urine Appearance (Clear) Urine pH (4.5-7.5) Ur Specific [place] (1.000-1.030) Urine Protein (Negative) Urine Glucose (UA) (Negative) Urine Ketones (Negative) Urine Blood (Negative) Urine Nitrite (Negative) Urine Bilirubin (Negative) Urine Urobilinogen (Negative) Ur Leukocyte Esterase (Negative) Urine WBC (Auto) (0-5) /hpf Urine RBC (Auto) (0-4) /hpf U Hyaline Cast (Auto) (0-5) /lpf U Epithel Cells (Auto) (0-5) /lpf Urine Bacteria (Auto) (Negative) SARS-CoV-2, RNA, NAAT NEGATIVE (NEGATIVE) 01/14/22 01/14/22 01/14/22 Range/Units 00:01 02:37 03:10 WBC (4.8-10.8) K/ul RBC (4.63-6.08) M/uL Hgb (14.0-18.0) g/dl Hct (40.1-51.0) % MCV (80.0-100.0) fL MCH (25.0-34.0) pg MCHC (32.0-36.0) g/dL RDW Std Deviation (36.4-46.3) fL RDW Coeff of Mariah (11.5-14.5) % Plt Count (130-400) K/uL MPV (9.4-12.4) fL Immature Gran % (Auto) % Neut % (Auto) % Lymph % (Auto) % [place] % (Auto) % Eos % (Auto) % Baso % (Auto) % Neut # (Auto) (1.4-6.5) K/uL Lymph # (Auto) (1.2-3.4) K/uL [place] # (Auto) (0.24-0.82) K/uL Eos # (Auto) (0-0.50) K/uL Baso # (Auto) (0-0.2) K/uL Immature Gran # (Auto) (0.00-0.02) K/uL PT (9.0-12.0) Seconds INR (0.9-1.1) APTT (21.0-31.0) Seconds PTT Ratio VBG pH (7.36-7.41) VBG pCO2 (38-50) mmHg VBG pO2 mmHg VBG HCO3 mmol/L VBG O2 Saturation % VBG Base Excess mEq/L Sodium 135 L (136-145) mmol/L Potassium 3.9 D (3.5-5.1) mmol/L Chloride 104 (98-107) mmol/L Carbon Dioxide 18 L (21-32) mmol/L Anion Gap 13 H (3-11) BUN 49 H (6-23) mg/dl Creatinine 1.32 D (0.6-1.4) mg/dl Est Cr Clr Drug Dosing 51.7 ml/min Est GFR ( Amer) 67.5 ml/min Est GFR (Non-Af Amer) 58.2 ml/min BUN/Creatinine Ratio 37.1 H (10-20) Glucose 409 H* (70-99(Fasting)) mg/dl POC Glucose 507 H* 425 H* (70-99) mg/dl Osmolality (280-300) mOsm/kg Calcium 9.6 (8.5-10.1) mg/dl Phosphorus (2.5-4.9) mg/dl Magnesium (1.7-2.4) mg/dl Total Bilirubin (0.2-1.0) mg/dl AST (13-39) U/L ALT (7-52) U/L Alkaline Phosphatase (34-104) U/L Troponin I High Sens (0-20) pg/ml Total Protein (6.0-8.3) gm/dl Albumin (3.4-5.0) gm/dl Globulin (2.5-4.0) gm/dl Albumin/Globulin Ratio (0.9-2) Lipase (11-82) U/L Procalcitonin (0-0.5) ng/ml PTH Intact (12.0-88.0) pg/ml Urine Color Urine Appearance (Clear) Urine pH (4.5-7.5) Ur Specific [place] (1.000-1.030) Urine Protein (Negative) Urine Glucose (UA) (Negative) Urine Ketones (Negative) Urine Blood (Negative) Urine Nitrite (Negative) Urine Bilirubin (Negative) Urine Urobilinogen (Negative) Ur Leukocyte Esterase (Negative) Urine WBC (Auto) (0-5) /hpf Urine RBC (Auto) (0-4) /hpf U Hyaline Cast (Auto) (0-5) /lpf U Epithel Cells (Auto) (0-5) /lpf Urine Bacteria (Auto) (Negative) SARS-CoV-2, RNA, NAAT (NEGATIVE) 01/14/22 01/14/22 Range/Units 03:10 03:10 WBC (4.8-10.8) K/ul RBC (4.63-6.08) M/uL Hgb (14.0-18.0) g/dl Hct (40.1-51.0) % MCV (80.0-100.0) fL MCH (25.0-34.0) pg MCHC (32.0-36.0) g/dL RDW Std Deviation (36.4-46.3) fL RDW Coeff of Mariah (11.5-14.5) % Plt Count (130-400) K/uL MPV (9.4-12.4) fL Immature Gran % (Auto) % Neut % (Auto) % Lymph % (Auto) % [place] % (Auto) % Eos % (Auto) % Baso % (Auto) % Neut # (Auto) (1.4-6.5) K/uL Lymph # (Auto) (1.2-3.4) K/uL [place] # (Auto) (0.24-0.82) K/uL Eos # (Auto) (0-0.50) K/uL Baso # (Auto) (0-0.2) K/uL Immature Gran # (Auto) (0.00-0.02) K/uL PT (9.0-12.0) Seconds INR (0.9-1.1) APTT (21.0-31.0) Seconds PTT Ratio VBG pH 7.32 L (7.36-7.41) VBG pCO2 37 L (38-50) mmHg VBG pO2 50 mmHg VBG HCO3 19 mmol/L VBG O2 Saturation 83.7 % VBG Base Excess -6.4 mEq/L Sodium (136-145) mmol/L Potassium (3.5-5.1) mmol/L Chloride (98-107) mmol/L Carbon Dioxide (21-32) mmol/L Anion Gap (3-11) BUN (6-23) mg/dl Creatinine (0.6-1.4) mg/dl Est Cr Clr Drug Dosing ml/min Est GFR ( Amer) ml/min Est GFR (Non-Af Amer) ml/min BUN/Creatinine Ratio (10-20) Glucose (70-99(Fasting)) mg/dl POC Glucose (70-99) mg/dl Osmolality (280-300) mOsm/kg Calcium (8.5-10.1) mg/dl Phosphorus (2.5-4.9) mg/dl Magnesium (1.7-2.4) mg/dl Total Bilirubin (0.2-1.0) mg/dl AST (13-39) U/L ALT (7-52) U/L Alkaline Phosphatase (34-104) U/L Troponin I High Sens (0-20) pg/ml Total Protein (6.0-8.3) gm/dl Albumin (3.4-5.0) gm/dl Globulin (2.5-4.0) gm/dl Albumin/Globulin Ratio (0.9-2) Lipase (11-82) U/L Procalcitonin (0-0.5) ng/ml PTH Intact 11.1 L (12.0-88.0) pg/ml Urine Color Urine Appearance (Clear) Urine pH (4.5-7.5) Ur Specific [place] (1.000-1.030) Urine Protein (Negative) Urine Glucose (UA) (Negative) Urine Ketones (Negative) Urine Blood (Negative) Urine Nitrite (Negative) Urine Bilirubin (Negative) Urine Urobilinogen (Negative) Ur Leukocyte Esterase (Negative) Urine WBC (Auto) (0-5) /hpf Urine RBC (Auto) (0-4) /hpf U Hyaline Cast (Auto) (0-5) /lpf U Epithel Cells (Auto) (0-5) /lpf Urine Bacteria (Auto) (Negative) SARS-CoV-2, RNA, NAAT (NEGATIVE) Administered Medications Aspirin (Aspirin 81 Mg Ectab) [facility]: 02/13/22 08:59 Last Admin: 01/15/22 08:10 Dose: 81 mg Documented by: [id number] Admin: 01/14/22 07:46 Dose: 81 mg Documented by: [id number] Atorvastatin Calcium (Atorvastatin 40 Mg Tab) 40 mg PO DAILY [facility] Stop: 02/13/22 08:59 Last Admin: 01/15/22 08:10 Dose: 40 mg Documented by: [id number] Admin: 01/14/22 07:46 Dose: 40 mg Documented by: [id number] Clopidogrel Bisulfate (Clopidogrel Bisulfate 75 Mg Tab) 75 mg PO QAM [facility] Stop: 02/13/22 08:59 Last Admin: 01/15/22 08:11 Dose: 75 mg Documented by: [id number] Admin: 01/14/22 07:46 Dose: 75 mg Documented by: [id number] Heparin Sodium (Porcine) (Heparin Sod 5,000 Unit/0.5 Ml Vial) 5,000 units SQ Q8 [facility] Stop: 02/13/22 05:59 Last Admin: 01/15/22 05:20 Dose: Not Given Documented by: [id number] Admin: 01/14/22 22:40 Dose: Not Given Documented by: [id number] Admin: 01/14/22 15:04 Dose: Not Given Documented by: [id number] Admin: 01/14/22 07:57 Dose: Not Given Documented by: [id number] Lactated Ringer's (Lr) 1,000 mls @ 100 mls/hr IV .Q10H [facility] Stop: 02/13/22 15:44 Last Admin: 01/15/22 09:30 Dose: 100 mls/hr Documented by: [id number] Infusion: 01/15/22 09:30 Dose: 100 mls/hr Documented by: [id number] Admin: 01/15/22 00:25 Dose: 100 mls/hr Documented by: [id number] Infusion: 01/15/22 00:25 Dose: 100 mls/hr Documented by: [id number] Admin: 01/14/22 15:51 Dose: 100 mls/hr Documented by: [id number] Insulin Aspart (Insulin Aspart Per Unit) 0 units SC ACHS [facility]; Protocol Stop: 02/13/22 11:44 Last Admin: 01/15/22 08:24 Dose: 4 units Documented by: [id number] Cosigned by: [id number] Admin: 01/14/22 20:36 Dose: 8 units Documented by: [id number] Cosigned by: [id number] Admin: 01/14/22 17:09 Dose: 14 units Documented by: [id number] Cosigned by: [id number] Admin: 01/14/22 12:38 Dose: 6 units Documented by: [id number] Cosigned by: [id number] Insulin Glargine (Lantus Per Unit Charge) 36 units SQ [facility]; Protocol Stop: 02/13/22 09:39 Last Admin: 01/14/22 20:36 Dose: 36 units Documented by: [id number] Cosigned by: [id number] Admin: 01/14/22 09:56 Dose: 36 units Documented by: [id number] Cosigned by: [id number] Metoprolol Succinate (Metoprolol Succ 25mg Ext Rel Tab) 25 mg PO DAILY [facility] Stop: 02/14/22 08:59 Last Admin: 01/15/22 08:11 Dose: 25 mg Documented by: [id number] Miscellaneous (Carbohydrates For Hypoglycemia ) 15 - 30 gm PO UD PRN PRN Reason: Hypoglycemia Protocol Stop: 02/12/22 23:27 Last Admin: 01/15/22 00:52 Dose: 15 gm Documented by: [id number] Admin: 01/15/22 00:37 Dose: 15 gm Documented by: [id number] Multivitamins (Multivitamin Tab) 1 tab PO QAM [facility] Stop: 02/13/22 08:59 Last Admin: 01/15/22 08:11 Dose: 1 tab Documented by: [id number] Admin: 01/14/22 07:45 Dose: 1 tab Documented by: [id number] Pantoprazole Sodium (Pantoprazole 40 Mg Tab) 40 mg PO QAM [facility] Stop: 02/13/22 08:59 Last Admin: 01/15/22 08:10 Dose: 40 mg Documented by: [id number] Admin: 01/14/22 07:45 Dose: 40 mg Documented by: [id number] Polyethylene Glycol (Polyethylene (Miralax) 17 Gm Pack) 17 gm PO DAILY [facility] Stop: 02/13/22 15:59 Last Admin: 01/15/22 08:12 Dose: 17 gm Documented by: [id number] Admin: 01/14/22 17:05 Dose: 17 gm Documented by: [id number] Senna/Docusate Sodium (Docusate Sodium/Senna 50/8.6mg Tab) 1 tab PO QAM [facility] Stop: 02/13/22 05:14 Last Admin: 01/15/22 08:11 Dose: 1 tab Documented by: [id number] Admin: 01/14/22 07:45 Dose: 1 tab Documented by: [id number] Discontinued Medications Sodium Chloride (Nss 1000ml) 1,000 mls @ 999 mls/hr IV .Q1H1M [facility] Stop: 01/13/22 23:31 Last Infusion: 01/13/22 23:51 Dose: 0 mls/hr Documented by: [id number] Admin: 01/13/22 22:45 Dose: 999 mls/hr Documented by: [id number] Sodium Chloride (Nss 1000ml) 1,000 mls @ 150 mls/hr IV .Q6H40M [facility] Stop: 02/12/22 22:44 Last Admin: 01/13/22 23:53 Dose: Not Given Documented by: [id number] Insulin Human Regular 250 (units/ Sodium Chloride) 250 mls @ 0 mls/hr IV .Q0M [facility]; Protocol Stop: 02/12/22 23:29 Last Titration: 01/14/22 11:44 Dose: 0 units/hr, 0 mls/hr Documented by: [id number] Cosigned by: [id number] Titration: 01/14/22 10:34 Dose: 0 units/hr, 0 mls/hr Documented by: [id number] Cosigned by: [id number] Titration: 01/14/22 10:33 Dose: 2.9 units/hr, 2.9 mls/hr Documented by: [id number] Cosigned by: [id number] Titration: 01/14/22 09:55 Dose: 0 units/hr, 0 mls/hr Documented by: [id number] Cosigned by: [id number] Titration: 01/14/22 08:49 Dose: 4.8 units/hr, 4.8 mls/hr Documented by: [id number] Cosigned by: [id number] Titration: 01/14/22 07:44 Dose: 6 units/hr, 6 mls/hr Documented by: [id number] Cosigned by: [id number] Admin: 01/14/22 01:43 Dose: 6 units/hr, 6 mls/hr Documented by: [id number] Cosigned by: [id number] Sodium Chloride (Nss 1000ml) 1,000 mls @ 100 mls/hr IV .Q10H ONE Stop: 01/14/22 09:46 Last Infusion: 01/14/22 05:58 Dose: 0 mls/hr Documented by: [id number] Infusion: 01/14/22 05:57 Dose: 0 mls/hr Documented by: [id number] Admin: 01/14/22 00:25 Dose: 100 mls/hr Documented by: [id number] Lactated Ringer's (Lr) 1,000 mls @ 100 mls/hr IV .Q10H ONE Stop: 01/14/22 15:10 Last Infusion: 01/14/22 07:43 Dose: 0 mls/hr Documented by: [id number] Admin: 01/14/22 06:15 Dose: 100 mls/hr Documented by: [id number] Dextrose/Lactated Ringer's (D5w And Lactated Ringers) 1,000 mls @ 80 mls/hr IV .[id number] [facility]I Stop: 02/13/22 07:14 Last Infusion: 01/14/22 15:51 Dose: 0 mls/hr Documented by: [id number] Admin: 01/14/22 07:43 Dose: 80 mls/hr Documented by: [id number] Insulin Aspart (Insulin Aspart Per Unit) 0 units SC ACHS [facility] Stop: 02/13/22 07:29 Last Admin: 01/14/22 11:44 Dose: Not Given Documented by: [id number] Admin: 01/14/22 07:47 Dose: Not Given Documented by: [id number] Insulin Aspart (Insulin Aspart Per Unit) 0 units SC 0000,0400 [facility]; Protocol Stop: 01/15/22 04:01 Last Admin: 01/15/22 04:41 Dose: 4 units Documented by: [id number] Cosigned by: [id number] Admin: 01/15/22 00:43 Dose: Not Given Documented by: [id number] Cosigned by: [id number] Insulin Human Regular (Novolin-R Insulin Per Unit Charge) 10 units IV NOW STA Stop: 01/13/22 22:49 Last Admin: 01/13/22 23:18 Dose: 10 units Documented by: [id number] Cosigned by: [id number] Metoprolol Succinate (Metoprolol Succ 25mg Ext Rel Tab) 25 mg PO NOW STA Stop: 01/14/22 03:23 Last Admin: 01/14/22 04:09 Dose: 25 mg Documented by: [id number] Metoprolol Tartrate (Metoprolol Tartrate 1 Mg/Ml Vial) 2.5 mg IV NOW STA Stop: 01/14/22 00:22 Last Admin: 01/14/22 01:29 Dose: 2.5 mg Documented by: [id number] Miscellaneous (Stat Insulin Drip) 1 ea N/A NOW STA Stop: 01/13/22 23:29 Last Admin: 01/14/22 04:10 Dose: Not Given Documented by: [id number] Oxycodone HCl (Oxycodone Hcl Ir 5 Mg Tab (Immediate Release)) 5 mg PO NOW STA Stop: 01/14/22 00:41 Last Admin: 01/14/22 01:32 Dose: 5 mg Documented by: [id number] Discharge Plan Visit Data Chief Complaint: Shortness of Breath/Dyspnea Stated Complaint: SOB/ BALANCE BAD/ DIZZY ED Provider: Edilia Vallejo Patient Disposition: Admitted As Inpatient Discharge Instructions Interventions: ED Discharge Assessment Last Done: 01/14/22 05:05
--- NOTE | 2022-01-15 13:33 | Hospitalist Progress Note ---
Date of Service January 15, 2022 Assessment & Plan (1) Hyperglycemic crisis in diabetes mellitus: Plan: Combined DKA/HHS Secondary to missed insulin doses DM2 insulin requiring, suboptimal control as of recent hemoglobin A1c of 13 last December 2021 pharmacy glycemic control consultation DM education On admission on IV insulin, now transitioned to subcu insulin Tolerating clear liquid diet, advance diet repeat A1c Abdominal pain secondary to illness ? Pancreatitis given lipase elevation and CT findings Bowel rest IVF Analgesia, titrate home beta-fortino while ARB on hold 01/15 -abdominal pain much improved, patient is tolerating clear liquid diet, advance diet HTN, elevated secondary to illness Medical telemetry given uncontrolled BP on admission - BP improved Appropriate to hold ARB until creatinine back to baseline ARF, AGMA secondary to illness - resolved Gentle IV hydration given valvular heart disease, IV insulin Cr on admission 1.79, now down to baseline 0.7 Chronic conditions hx COPD/ILD, pulmonary status at baseline moderate aortic stenosis - follow up w/ cardiology scheduled hyperlipidemia on statin Rx hx TIA past tobacco/alcohol abuse PT OT eval DVT prophylaxis. Heparin subcu DNR Admission and Anticipated Discharge Date Admission Date: January 14, 2022 Subjective Patient seen in follow-up of hyperglycemic crisis, abdominal pain, possible pancreatitis On admission on IV insulin Now back to subcu insulin, tolerating clear liquids, will advance On admission had abdominal pain, CT suggestive of acute pancreatitis IV fluids stopped now He reports that he did not know he still had some needles for insulin left. However after reviewing the chart, it looks like patient did not follow-up with [facility] after his last discharge and was discharged from their clinic for noncompliance. Will repeat A1c Patient also seen ambulating in the hallway today with assistance He reports feeling well. No fevers, chills, chest pain, shortness of breath, reports abdominal pain resolved and he is feeling hungry. Review of Systems Review of Systems: All systems reviewed & are unremarkable except as noted in Subjective Physical Exam Physical Exam: GENERAL: Elderly male, thin, in no acute distress HEENT: NC/AT. [place] palpebral conjunctivae NECK : Supple, no tenderness CHEST : CTAB, decreased breath sounds HEART : RRR, no obvious murmurs ABDOMEN: Positive bowel sounds, soft, nontender to palpation - epigastric tenderness resolved EXTREMITIES : No LE swelling, moves extremities SKIN: Normal color, warm NEUROLOGIC : Coherent, no facial asymmetry, slightly hard of hearing, moves extremities Results & Data Results & Data ([facility]) Vital Signs (Past 12 Hours) Vital Signs Temp Pulse Pulse Resp BP Pulse Ox 01/15/22 12:16 36.6 C 84 18 147/76 H 96 01/15/22 07:36 71 01/15/22 07:00 36.4 C L 77 20 136/76 98 01/15/22 04:00 36.4 C L 75 20 162/76 H 99 01/15/22 02:44 76 Laboratory Results 01/15/22 01/15/22 01/15/22 Range/Units 11:44 07:46 05:18 WBC (4.8-10.8) K/ul RBC (4.63-6.08) M/uL Hgb (14.0-18.0) g/dl Hct (40.1-51.0) % MCV (80.0-100.0) fL MCH (25.0-34.0) pg MCHC (32.0-36.0) g/dL RDW Std Deviation (36.4-46.3) fL RDW Coeff of Mariah (11.5-14.5) % Plt Count (130-400) K/uL MPV (9.4-12.4) fL Immature Gran % (Auto) % Neut % (Auto) % Lymph % (Auto) % [place] % (Auto) % Eos % (Auto) % Baso % (Auto) % Neut # (Auto) (1.4-6.5) K/uL Lymph # (Auto) (1.2-3.4) K/uL [place] # (Auto) (0.24-0.82) K/uL Eos # (Auto) (0-0.50) K/uL Baso # (Auto) (0-0.2) K/uL Immature Gran # (Auto) (0.00-0.02) K/uL Platelet Estimate (Normal) Sodium 140 (136-145) mmol/L Potassium 3.6 (3.5-5.1) mmol/L Chloride 110 H (98-107) mmol/L Carbon Dioxide 26 (21-32) mmol/L Anion Gap 4 (3-11) BUN 15 (6-23) mg/dl Creatinine 0.71 (0.6-1.4) mg/dl Est Cr Clr Drug Dosing 101.4 ml/min Est GFR ( Amer) 118.2 ml/min Est GFR (Non-Af Amer) 102.0 ml/min BUN/Creatinine Ratio 21.1 H (10-20) Glucose 191 H (70-99(Fasting)) mg/dl POC Glucose 132 H 119 H (70-99) mg/dl Calcium 9.1 (8.5-10.1) mg/dl 01/15/22 01/15/22 01/15/22 Range/Units 05:18 03:59 01:09 WBC 8.05 (4.8-10.8) K/ul RBC 4.76 (4.63-6.08) M/uL Hgb 15.4 D (14.0-18.0) g/dl Hct 41.9 (40.1-51.0) % MCV 88.0 (80.0-100.0) fL MCH 32.4 (25.0-34.0) pg MCHC 36.8 H (32.0-36.0) g/dL RDW Std Deviation 44.9 (36.4-46.3) fL RDW Coeff of Mariah 14.1 (11.5-14.5) % Plt Count 140 D (130-400) K/uL MPV 10.9 (9.4-12.4) fL Immature Gran % (Auto) 0.5 % Neut % (Auto) 70.2 % Lymph % (Auto) 20.9 % [place] % (Auto) 7.2 % Eos % (Auto) 1.0 % Baso % (Auto) 0.2 % Neut # (Auto) 5.65 (1.4-6.5) K/uL Lymph # (Auto) 1.68 (1.2-3.4) K/uL [place] # (Auto) 0.58 (0.24-0.82) K/uL Eos # (Auto) 0.08 (0-0.50) K/uL Baso # (Auto) 0.02 (0-0.2) K/uL Immature Gran # (Auto) 0.04 H (0.00-0.02) K/uL Platelet Estimate Normal (Normal) Sodium (136-145) mmol/L Potassium (3.5-5.1) mmol/L Chloride (98-107) mmol/L Carbon Dioxide (21-32) mmol/L Anion Gap (3-11) BUN (6-23) mg/dl Creatinine (0.6-1.4) mg/dl Est Cr Clr Drug Dosing ml/min Est GFR ( Amer) ml/min Est GFR (Non-Af Amer) ml/min BUN/Creatinine Ratio (10-20) Glucose (70-99(Fasting)) mg/dl POC Glucose 201 H 85 (70-99) mg/dl Calcium (8.5-10.1) mg/dl 01/15/22 01/15/22 01/15/22 Range/Units 00:53 00:29 00:27 WBC (4.8-10.8) K/ul RBC (4.63-6.08) M/uL Hgb (14.0-18.0) g/dl Hct (40.1-51.0) % MCV (80.0-100.0) fL MCH (25.0-34.0) pg MCHC (32.0-36.0) g/dL RDW Std Deviation (36.4-46.3) fL RDW Coeff of Mariah (11.5-14.5) % Plt Count (130-400) K/uL MPV (9.4-12.4) fL Immature Gran % (Auto) % Neut % (Auto) % Lymph % (Auto) % [place] % (Auto) % Eos % (Auto) % Baso % (Auto) % Neut # (Auto) (1.4-6.5) K/uL Lymph # (Auto) (1.2-3.4) K/uL [place] # (Auto) (0.24-0.82) K/uL Eos # (Auto) (0-0.50) K/uL Baso # (Auto) (0-0.2) K/uL Immature Gran # (Auto) (0.00-0.02) K/uL Platelet Estimate (Normal) Sodium (136-145) mmol/L Potassium (3.5-5.1) mmol/L Chloride (98-107) mmol/L Carbon Dioxide (21-32) mmol/L Anion Gap (3-11) BUN (6-23) mg/dl Creatinine (0.6-1.4) mg/dl Est Cr Clr Drug Dosing ml/min Est GFR ( Amer) ml/min Est GFR (Non-Af Amer) ml/min BUN/Creatinine Ratio (10-20) Glucose (70-99(Fasting)) mg/dl POC Glucose 60 L* 62 L* 54 L* (70-99) mg/dl Calcium (8.5-10.1) mg/dl 01/14/22 01/14/22 01/14/22 Range/Units 20:19 20:15 16:48 WBC (4.8-10.8) K/ul RBC (4.63-6.08) M/uL Hgb (14.0-18.0) g/dl Hct (40.1-51.0) % MCV (80.0-100.0) fL MCH (25.0-34.0) pg MCHC (32.0-36.0) g/dL RDW Std Deviation (36.4-46.3) fL RDW Coeff of Mariah (11.5-14.5) % Plt Count (130-400) K/uL MPV (9.4-12.4) fL Immature Gran % (Auto) % Neut % (Auto) % Lymph % (Auto) % [place] % (Auto) % Eos % (Auto) % Baso % (Auto) % Neut # (Auto) (1.4-6.5) K/uL Lymph # (Auto) (1.2-3.4) K/uL [place] # (Auto) (0.24-0.82) K/uL Eos # (Auto) (0-0.50) K/uL Baso # (Auto) (0-0.2) K/uL Immature Gran # (Auto) (0.00-0.02) K/uL Platelet Estimate (Normal) Sodium (136-145) mmol/L Potassium (3.5-5.1) mmol/L Chloride (98-107) mmol/L Carbon Dioxide (21-32) mmol/L Anion Gap (3-11) BUN (6-23) mg/dl Creatinine (0.6-1.4) mg/dl Est Cr Clr Drug Dosing ml/min Est GFR ( Amer) ml/min Est GFR (Non-Af Amer) ml/min BUN/Creatinine Ratio (10-20) Glucose (70-99(Fasting)) mg/dl POC Glucose 299 H 312 H* 294 H (70-99) mg/dl Calcium (8.5-10.1) mg/dl Medications Administered Current Inpatient Medications Acetaminophen (Acetaminophen 325 Mg Tab) 650 mg PO Q4H PRN PRN Reason: Pain or Fever Stop: 02/13/22 05:33 Aspirin (Aspirin 81 Mg Ectab) 81 mg PO QAM [facility] Stop: 02/13/22 08:59 Last Admin: 01/15/22 08:10 Dose: 81 mg Documented by: Atorvastatin Calcium (Atorvastatin 40 Mg Tab) 40 mg PO DAILY [facility] Stop: 02/13/22 08:59 Last Admin: 01/15/22 08:10 Dose: 40 mg Documented by: Clopidogrel Bisulfate (Clopidogrel Bisulfate 75 Mg Tab) 75 mg PO QAM [facility] Stop: 02/13/22 08:59 Last Admin: 01/15/22 08:11 Dose: 75 mg Documented by: Dextrose (Dextrose 50% 50 Ml Syringe) 25 - 50 ml IV UD PRN; Protocol PRN Reason: Hypoglycemia Protocol Stop: 02/12/22 23:27 Glucagon (Glucagon For Inj 1 Mg Vial) 1 mg SQ UD PRN; Protocol PRN Reason: Hypoglycemia Protocol Stop: 02/12/22 23:27 Glucose (Glucose 40% Gel 15 Gm Tube) 15 - 30 gm PO UD PRN; Protocol PRN Reason: Hypoglycemia Protocol Stop: 02/12/22 23:27 Glucose (Glucose 10 Tabs/Tube) 4 tab PO UD PRN; Protocol PRN Reason: Hypoglycemia Protocol Stop: 02/12/22 23:27 Heparin Sodium (Porcine) (Heparin Sod 5,000 Unit/0.5 Ml Vial) 5,000 units SQ Q8 [facility] Stop: 02/13/22 05:59 Last Admin: 01/15/22 05:20 Dose: Not Given Documented by: Promethazine HCl 6.25 mg/ (Sodium Chloride) 50.25 mls @ 201 mls/hr IV Q6H PRN PRN Reason: Nausea And Vomiting Stop: 02/13/22 05:33 Lactated Ringer's (Lr) 1,000 mls @ 100 mls/hr IV .Q10H [facility] Stop: 02/13/22 15:44 Last Admin: 01/15/22 09:30 Dose: 100 mls/hr Documented by: Insulin Aspart (Insulin Aspart Per Unit) 0 units SC ACHS [facility]; Protocol Stop: 02/13/22 11:44 Last Admin: 01/15/22 12:17 Dose: 7 units Documented by: Insulin Glargine (Lantus Per Unit Charge) 36 units SQ HS [facility]; Protocol Stop: 02/13/22 09:39 Last Admin: 01/14/22 20:36 Dose: 36 units Documented by: Metoprolol Succinate (Metoprolol Succ 25mg Ext Rel Tab) 25 mg PO DAILY [facility] Stop: 02/14/22 08:59 Last Admin: 01/15/22 08:11 Dose: 25 mg Documented by: Miscellaneous (Carbohydrates For Hypoglycemia ) 15 - 30 gm PO UD PRN PRN Reason: Hypoglycemia Protocol Stop: 02/12/22 23:27 Last Admin: 01/15/22 00:52 Dose: 15 gm Documented by: Miscellaneous Information (Pharmacy Glycemic Mgmt Consult) 1 ea N/A UD PRN PRN Reason: Consult Stop: 02/13/22 07:49 Multivitamins (Multivitamin Tab) 1 tab PO QAM [facility] Stop: 02/13/22 08:59 Last Admin: 01/15/22 08:11 Dose: 1 tab Documented by: Oxycodone HCl (Oxycodone Hcl Ir 5 Mg Tab (Immediate Release)) 5 mg PO Q4H PRN PRN Reason: pain Stop: 01/28/22 05:33 Pantoprazole Sodium (Pantoprazole 40 Mg Tab) 40 mg PO QAM [facility] Stop: 02/13/22 08:59 Last Admin: 01/15/22 08:10 Dose: 40 mg Documented by: Polyethylene Glycol (Polyethylene (Miralax) 17 Gm Pack) 17 gm PO DAILY [facility] Stop: 02/13/22 15:59 Last Admin: 01/15/22 08:12 Dose: 17 gm Documented by: Senna/Docusate Sodium (Docusate Sodium/Senna 50/8.6mg Tab) 1 tab PO QAM [facility] Stop: 02/13/22 05:14 Last Admin: 01/15/22 08:11 Dose: 1 tab Documented by:
[2022-01-15] MEDS: LANTUS PER UNIT CHARGE SQ SCH (21:17)
[2022-01-16] MEDS: LACTATED RINGER'S 1,000 ML IV SCH ×2 (05:24→18:38)
[2022-01-16] MEDS: HEPARIN SOD 5,000 UNIT/0.5 ML VIAL SQ SCH ×3 (05:39→20:53)
[2022-01-16] MEDS: ACETAMINOPHEN 325 MG TAB PO PRN ×2 (05:40→21:01)
[2022-01-16] MEDS: INSULIN ASPART PER UNIT SC SCH ×4 (08:20→20:53)
[2022-01-16] MEDS: CLOPIDOGREL BISULFATE 75 MG TAB PO SCH (08:21)
[2022-01-16] MEDS: METOPROLOL SUCC 25MG EXT REL TAB PO SCH (08:21)
[2022-01-16] MEDS: DOCUSATE SODIUM/SENNA 50/8.6MG TAB PO SCH (08:21)
[2022-01-16] MEDS: POLYETHYLENE (MIRALAX) 17 GM PACK PO SCH (08:21)
[2022-01-16] MEDS: ATORVASTATIN 40 MG TAB PO SCH (08:21)
[2022-01-16] MEDS: MULTIVITAMIN TAB PO SCH (08:21)
[2022-01-16] MEDS: PANTOprazole 40 MG TAB PO SCH (08:21)
[2022-01-16] MEDS: ASPIRIN 81 MG ECTAB PO SCH (08:21)
[2022-01-16 08:35] LABS: BUN Creatinine Ratio 13.4 (10-20); Calcium 8.6 mg/dl (8.5-10.1); Creatinine Clr Calc Pharmacy 109.5 ml/min; Est GFR (Non-African American) 104.4 ml/min; Magnesium 1.7 mg/dl (1.7-2.4); Phosphorus 2.3 mg/dl (2.5-4.9); Potassium 3.4 mmol/L (3.5-5.1)
[2022-01-16 08:39] LABS: Hematocrit (blood only) 43.5 % (40.1-51.0); Hemoglobin 15.5 g/dl (14.0-18.0); White Blood Count 6.16 K/ul (4.8-10.8)
[2022-01-16 08:40] LABS: Estimated Average Glucose 349 mg/dl; Hemoglobin A1C 13.8 % (4.5-5.6)
[2022-01-16 08:45] LABS: Mean Corpuscular Hgb Conc 35.6 g/dL (32.0-36.0); Mean Platelet Volume 10.4 fL (9.4-12.4); Platelet Count 133 K/uL (130-400); Platelet Estimate Decreased (Normal); RDW Coefficient of Variation 13.8 % (11.5-14.5)
[2022-01-16] MEDS ORDERED: POTASSIUM CHLORIDE CRTAB 20 MEQ TABCR PO ONE (10:45)
--- NOTE | 2022-01-16 10:49 | Pharmacy Report ---
Pharmacy Glycemic Short Note 2 - Date of Service January 16, 2022 - Glycemic Short BSG Results (Last 24 hours): 01/15/22 01/15/22 01/15/22 11:44 16:47 16:48 Glucose POC Glucose 132 H 68 L* 72 01/15/22 01/16/22 01/16/22 20:28 07:54 08:03 Glucose 83 POC Glucose 158 H 85 OUTPATIENT ANTIDIABETIC REGIMEN: * Lantus 36 units HS * Metformin 1g BID * Novolog 8 units with breakfast and lunch, 10 units with dinner + if BSG > 125mg/dl CF 1:25 ASSESSMENT: 01/16: * Derek received 53 units of SQ insulin yesterday: * Lantus 36 units + Novolog 17 units * BSGs: 119, 132, 68, 158 mg/dL * Patient had an episode of hypoglycemia at dinner * Fasting BSG of 85 mg/dL is at goal but a little low for inpatient monitoring. Will decrease basal insulin ~20%. * Novolog parameters were loosened last evening. Will continue same for now. 01/15 * Patient transitioned off of insulin drip yesterady, did have one episode of hypoglycemia last night, treated with 15g CHO x 2, this was likely due to excess correctional insulin in combination with fluids changing to LR from D5LR. Loosen CF to prevent further hypoglycemia. * Continue home Lantus dose for now. 01/14 * 62 year old male admitted early this AM in DKA d/t missed insulin doses, started at 6units/hr, ran this rate x 6 hours * Gap closed, euglycemic, DC insulin drip, overlap with Lantus x 3 hours * Begin basal bolus insulin * Patient remains on D5LR@80cc/hr for pancreatitis * Started clear liquid diet at lunch PLAN FOR INPATIENT GLYCEMIC CONTROL: * Hold outpatient diabetes medications * Basal insulin * Lantus 29 units SQ HS * Bolus insulin * NovoLog per scale ACHS or Q6hrs while NPO * Goal Range: Low 110 mg/dL - High 140 mg/dL * Correction Factor: 30 mg/dL/unit * Nutritional / Prandial insulin per carb ratio of 1 unit per 10 grams CHO consumed
[2022-01-16] MEDS ORDERED: MAGNESIUM SULFATE / D5W 1 GM/100 ML BAG IV ONE (11:00)
[2022-01-16] MEDS ORDERED: LANTUS PER UNIT CHARGE SQ SCH (21:00)
[2022-01-17] MEDS: LACTATED RINGER'S 1,000 ML IV SCH (06:20)
[2022-01-17] MEDS: HEPARIN SOD 5,000 UNIT/0.5 ML VIAL SQ SCH ×2 (06:21→12:36)
[2022-01-17 06:59] LABS: Hemoglobin 15.2 g/dl (14.0-18.0); Mean Corpuscular Hemoglobin 30.5 pg (25.0-34.0); Mean Corpuscular Hgb Conc 35.3 g/dL (32.0-36.0); Mean Corpuscular Volume 86.3 fL (80.0-100.0); Platelet Count 139 K/uL (130-400); RDW Coefficient of Variation 13.5 % (11.5-14.5); RDW Standard Deviation 42.4 fL (36.4-46.3); Red Blood Count 4.98 M/uL (4.63-6.08); White Blood Count 6.45 K/ul (4.8-10.8)
[2022-01-17] MEDS: INSULIN ASPART PER UNIT SC SCH ×2 (08:08→12:01)
[2022-01-17] MEDS: POLYETHYLENE (MIRALAX) 17 GM PACK PO SCH (08:08)
[2022-01-17] MEDS: ASPIRIN 81 MG ECTAB PO SCH (08:15)
[2022-01-17] MEDS: METOPROLOL SUCC 25MG EXT REL TAB PO SCH (08:15)
[2022-01-17] MEDS: ATORVASTATIN 40 MG TAB PO SCH (08:15)
[2022-01-17] MEDS: PANTOprazole 40 MG TAB PO SCH (08:15)
[2022-01-17] MEDS: DOCUSATE SODIUM/SENNA 50/8.6MG TAB PO SCH (08:15)
[2022-01-17] MEDS: CLOPIDOGREL BISULFATE 75 MG TAB PO SCH (08:16)
[2022-01-17] MEDS: MULTIVITAMIN TAB PO SCH (08:16)
--- NOTE | 2022-01-17 13:05 | Hospitalist Progress Note ---
Date of Service January 16, 2022 Assessment & Plan (1) Hyperglycemic crisis in diabetes mellitus: Plan: Combined DKA/HHS Secondary to missed insulin doses DM2 insulin requiring, suboptimal control as of recent hemoglobin A1c of 13 last December 2021 pharmacy glycemic control consultation DM education On admission on IV insulin, now transitioned to subcu insulin Tolerating clear liquid diet, advance diet repeat A1c >13% Discussed with the patient, pharmacist, and natural resources extension educator Patient may have troubles getting insulin. However currently has some insulin at home, but he would like to finish. After he finishes the insulin he has, plan to transition to 70/30 insulin. Patient admits to struggling with his diabetes management at home (he would prefer a more simple regimen and mentions financial issues). Based on discussions with provider and CDE, it was determined that Derek may benefit from transition to 70/30 insulin due to cost savings and regimen simplification. However, patient has 2 Lantus pens and 2 Novolog pens remaining at home that he would like to use up first, therefore this transition will likely occur under the care of his PCP (or [facility] if he has one). General recommends based on current insulin usage: - Discontinue Lantus - Discontinue Novolog - Start 70/30 insulin 33 units SQ with breakfast and 17 units with dinner Abdominal pain secondary to illness ? Pancreatitis given lipase elevation and CT findings Bowel rest IVF Analgesia, titrate home beta-fortino while ARB on hold 01/15 -abdominal pain much improved, patient is tolerating clear liquid diet, advance diet 01/16 -no abdominal pain, tolerating regular diet HTN, elevated secondary to illness Medical telemetry given uncontrolled BP on admission - BP improved Appropriate to hold ARB until creatinine back to baseline - resume on DC ARF, AGMA secondary to illness - resolved Gentle IV hydration given valvular heart disease, IV insulin Cr on admission 1.79, now down to baseline 0.7 Chronic conditions hx COPD/ILD, pulmonary status at baseline moderate aortic stenosis - follow up w/ cardiology scheduled hyperlipidemia on statin Rx hx TIA past tobacco/alcohol abuse PT OT eval DVT prophylaxis. Heparin subcu DNR Admission and Anticipated Discharge Date Admission Date: January 14, 2022 Subjective Patient seen in follow-up of hyperglycemic crisis, abdominal pain, possible pancreatitis On admission on IV insulin Now back to subcu insulin, tolerating diet On admission had abdominal pain, CT suggestive of acute pancreatitis Abdominal pain resolved IV fluids stopped now After reviewing the chart, it looks like patient did not follow-up with [facility] after his last discharge and was discharged from their clinic for noncompliance. Reports feeling well. No fevers, chills, chest pain, shortness of breath, abdominal pain Review of Systems Review of Systems: All systems reviewed & are unremarkable except as noted in Subjective Physical Exam Physical Exam: GENERAL: Elderly male, thin, in no acute distress HEENT: NC/AT. [place] palpebral conjunctivae NECK : Supple, no tenderness CHEST : CTAB, decreased breath sounds HEART : RRR, no obvious murmurs ABDOMEN: Positive bowel sounds, soft, nontender to palpation - epigastric tenderness resolved EXTREMITIES : No LE swelling, moves extremities SKIN: Normal color, warm NEUROLOGIC : Coherent, no facial asymmetry, slightly hard of hearing, moves extremities Results & Data Results & Data ([facility]) Vital Signs (Past 12 Hours) Medications Administered Current Inpatient Medications Acetaminophen (Acetaminophen 325 Mg Tab) 650 mg PO Q4H PRN PRN Reason: Pain or Fever Stop: 02/13/22 05:33 Last Admin: 01/16/22 21:01 Dose: 650 mg Documented by: Aspirin (Aspirin 81 Mg Ectab) 81 mg PO QAM [facility] Stop: 02/13/22 08:59 Last Admin: 01/17/22 08:15 Dose: 81 mg Documented by: Atorvastatin Calcium (Atorvastatin 40 Mg Tab) 40 mg PO DAILY [facility] Stop: 02/13/22 08:59 Last Admin: 01/17/22 08:15 Dose: 40 mg Documented by: Clopidogrel Bisulfate (Clopidogrel Bisulfate 75 Mg Tab) 75 mg PO QAM [facility] Stop: 02/13/22 08:59 Last Admin: 01/17/22 08:16 Dose: 75 mg Documented by: Dextrose (Dextrose 50% 50 Ml Syringe) 25 - 50 ml IV UD PRN; Protocol PRN Reason: Hypoglycemia Protocol Stop: 02/12/22 23:27 Glucagon (Glucagon For Inj 1 Mg Vial) 1 mg SQ UD PRN; Protocol PRN Reason: Hypoglycemia Protocol Stop: 02/12/22 23:27 Glucose (Glucose 40% Gel 15 Gm Tube) 15 - 30 gm PO UD PRN; Protocol PRN Reason: Hypoglycemia Protocol Stop: 02/12/22 23:27 Glucose (Glucose 10 Tabs/Tube) 4 tab PO UD PRN; Protocol PRN Reason: Hypoglycemia Protocol Stop: 02/12/22 23:27 Heparin Sodium (Porcine) (Heparin Sod 5,000 Unit/0.5 Ml Vial) 5,000 units SQ Q8 [facility] Stop: 02/13/22 05:59 Last Admin: 01/17/22 12:36 Dose: Not Given Documented by: Promethazine HCl 6.25 mg/ (Sodium Chloride) 50.25 mls @ 201 mls/hr IV Q6H PRN PRN Reason: Nausea And Vomiting Stop: 02/13/22 05:33 Insulin Aspart (Insulin Aspart Per Unit) 0 units SC ACHS [facility]; Protocol Stop: 02/13/22 11:44 Last Admin: 01/17/22 12:01 Dose: 6 units Documented by: Insulin Glargine (Lantus Per Unit Charge) 29 units SQ HS [facility]; Protocol Stop: 02/15/22 20:59 Last Admin: 01/16/22 21:00 Dose: 29 units Documented by: Metoprolol Succinate (Metoprolol Succ 25mg Ext Rel Tab) 25 mg PO DAILY [facility] Stop: 02/14/22 08:59 Last Admin: 01/17/22 08:15 Dose: 25 mg Documented by: Miscellaneous (Carbohydrates For Hypoglycemia ) 15 - 30 gm PO UD PRN PRN Reason: Hypoglycemia Protocol Stop: 02/12/22 23:27 Last Admin: 01/15/22 00:52 Dose: 15 gm Documented by: Miscellaneous Information (Pharmacy Glycemic Mgmt Consult) 1 ea N/A UD PRN PRN Reason: Consult Stop: 02/13/22 07:49 [facility]ivit[facility] ([facility]amin Tab) [facility] Stop[facility] 02/13/22 08:59 Last Admin: 01/17/22 08:16 Dose: 1 tab Documented by: Oxycodone HCl (Oxycodone Hcl Ir 5 Mg Tab (Immediate Release)) 5 mg PO Q4H PRN PRN Reason: pain Stop: 01/28/22 05:33 Pantoprazole Sodium (Pantoprazole 40 Mg Tab) 40 mg PO QAM [facility] Stop: 02/13/22 08:59 Last Admin: 01/17/22 08:15 Dose: 40 mg Documented by: Polyethylene Glycol (Polyethylene (Miralax) 17 Gm Pack) 17 gm PO DAILY [facility] Stop: 02/13/22 15:59 Last Admin: 01/17/22 08:08 Dose: Not Given Documented by: Senna/Docusate Sodium (Docusate Sodium/Senna 50/8.6mg Tab) 1 tab PO [facility] Stop: 02/13/22 05:14 Last Admin: 01/17/22 08:15 Dose: 1 tab Documented by:
--- NOTE | 2022-01-17 13:47 | Hospitalist Progress Note ---
Date of Service January 17, 2022 Assessment & Plan (1) Hyperglycemic crisis in diabetes mellitus: Plan: Combined DKA/HHS Secondary to missed insulin doses DM2 insulin requiring, suboptimal control as of recent hemoglobin A1c of 13 last December 2021 pharmacy glycemic control consultation DM education On admission on IV insulin, now transitioned to subcu insulin Tolerating clear liquid diet, advance diet repeat A1c >13% Discussed with the patient, pharmacist, and inspector bicycle Patient may have troubles getting insulin. However currently has some insulin at home, that he would like to finish. After he finishes the insulin he has, plan to transition to 70/30 insulin. Per glycemic pharmacist: Patient admits to struggling with his diabetes management at home (he would prefer a more simple regimen and mentions financial issues). Based on discussions with provider and CDE, it was determined that Derek may benefit from transition to 70/30 insulin due to cost savings and regimen simplification. However, patient has 2 Lantus pens and 2 Novolog pens remaining at home that he would like to use up first, therefore this transition will likely occur under the care of his PCP (or High Speed Warper Tender if he has one). General recommends based on current insulin usage: - Discontinue Lantus - Discontinue Novolog - Start 70/30 insulin 33 units SQ with breakfast and 17 units with dinner Abdominal pain secondary to illness ? Pancreatitis given lipase elevation and CT findings Bowel rest IVF Analgesia, titrate home beta-fortino while ARB on hold 01/15 -abdominal pain much improved, patient is tolerating clear liquid diet, advance diet 01/16 -no abdominal pain, tolerating regular diet HTN, elevated secondary to illness Medical telemetry given uncontrolled BP on admission - BP improved Appropriate to hold ARB until creatinine back to baseline - resume on DC ARF, AGMA secondary to illness - resolved Gentle IV hydration given valvular heart disease, IV insulin Cr on admission 1.79, now down to baseline 0.7 Chronic conditions hx COPD/ILD, pulmonary status at baseline moderate aortic stenosis - follow up w/ cardiology scheduled hyperlipidemia on statin Rx hx TIA past tobacco/alcohol abuse PT OT eval DVT prophylaxis. Heparin subcu DNR Admission and Anticipated Discharge Date Admission Date: January 14, 2022 Subjective Patient seen in follow-up of hyperglycemic crisis, abdominal pain, possible pancreatitis On admission on IV insulin Now back to subcu insulin, tolerating diet On admission had abdominal pain, CT suggestive of acute pancreatitis Abdominal pain resolved After reviewing the chart, it looks like patient did not follow-up with [facility] after his last discharge and was discharged from their clinic for noncompliance. Pt reports feeling well. No fevers, chills, chest pain, shortness of breath, abdominal pain Review of Systems Review of Systems: All systems reviewed & are unremarkable except as noted in Subjective Physical Exam Physical Exam: GENERAL: Elderly male, thin, in no acute distress HEENT: [place]/AT. [place] palpebral conjunctivae NECK : Supple, no tenderness CHEST : CTAB, decreased breath sounds HEART : RRR, no obvious murmurs ABDOMEN: Positive bowel sounds, soft, nontender to palpation - epigastric tenderness resolved EXTREMITIES : No LE swelling, moves extremities SKIN: Normal color, warm NEUROLOGIC : Coherent, no facial asymmetry, slightly hard of hearing, moves extremities Results & Data Results & Data ([facility]) Vital Signs (Past 12 Hours) Vital Signs Temp Pulse Pulse Resp BP Pulse Ox 01/17/22 09:13 80 01/17/22 08:32 36.5 C 81 20 153/85 H 96 01/17/22 03:32 36.5 C 82 18 154/87 H 98 Laboratory Results 01/17/22 01/17/22 01/17/22 Range/Units 11:34 07:55 06:26 WBC 6.45 (4.8-10.8) K/ul RBC 4.98 (4.63-6.08) M/uL Hgb 15.2 (14.0-18.0) g/dl Hct 43.0 (40.1-51.0) % MCV 86.3 (80.0-100.0) fL MCH 30.5 (25.0-34.0) pg MCHC 35.3 (32.0-36.0) g/dL RDW Std Deviation 42.4 (36.4-46.3) fL RDW Coeff of Mariah 13.5 (11.5-14.5) % Plt Count 139 (130-400) K/uL MPV 11.0 (9.4-12.4) fL POC Glucose 123 H 115 H (70-99) mg/dl 01/16/22 01/16/22 Range/Units 20:08 16:57 WBC (4.8-10.8) K/ul RBC (4.63-6.08) M/uL Hgb (14.0-18.0) g/dl Hct (40.1-51.0) % MCV (80.0-100.0) fL MCH (25.0-34.0) pg MCHC (32.0-36.0) g/dL RDW Std Deviation (36.4-46.3) fL RDW Coeff of Mariah (11.5-14.5) % Plt Count (130-400) K/uL MPV (9.4-12.4) fL POC Glucose 131 H 182 H (70-99) mg/dl Medications Administered Current Inpatient Medications Acetaminophen (Acetaminophen 325 Mg Tab) 650 mg PO Q4H PRN PRN Reason: Pain or Fever Stop: 02/13/22 05:33 Last Admin: 01/16/22 21:01 Dose: 650 mg Documented by: Aspirin (Aspirin 81 Mg Ectab) 81 mg PO QAM [facility] Stop: 02/13/22 08:59 Last Admin: 01/17/22 08:15 Dose: 81 mg Documented by: Atorvastatin Calcium (Atorvastatin 40 Mg Tab) 40 mg PO DAILY [facility] Stop: 02/13/22 08:59 Last Admin: 01/17/22 08:15 Dose: 40 mg Documented by: Clopidogrel Bisulfate (Clopidogrel Bisulfate 75 Mg Tab) 75 mg PO QAM [facility] Stop: 02/13/22 08:59 Last Admin: 01/17/22 08:16 Dose: 75 mg Documented by: Dextrose (Dextrose 50% 50 Ml Syringe) 25 - 50 ml IV UD PRN; Protocol PRN Reason: Hypoglycemia Protocol Stop: 02/12/22 23:27 Glucagon (Glucagon For Inj 1 Mg Vial) 1 mg SQ UD PRN; Protocol PRN Reason: Hypoglycemia Protocol Stop: 02/12/22 23:27 Glucose (Glucose 40% Gel 15 Gm Tube) 15 - 30 gm PO UD PRN; Protocol PRN Reason: Hypoglycemia Protocol Stop: 02/12/22 23:27 Glucose (Glucose 10 Tabs/Tube) 4 tab PO UD PRN; Protocol PRN Reason: Hypoglycemia Protocol Stop: 02/12/22 23:27 Heparin Sodium (Porcine) (Heparin Sod 5,000 Unit/0.5 Ml Vial) 5,000 units SQ Q8 NELI Stop: 02/13/22 05:59 Last Admin: 01/17/22 12:36 Dose: Not Given Documented by: Promethazine HCl 6.25 mg/ (Sodium Chloride) 50.25 mls @ 201 mls/hr IV Q6H PRN PRN Reason: Nausea And Vomiting Stop: 02/13/22 05:33 Insulin Aspart (Insulin Aspart Per Unit) 0 units SC ACHS [facility]; Protocol Stop: 02/13/22 11:44 Last Admin: 01/17/22 12:01 Dose: 6 units Documented by: Insulin Glargine (Lantus Per Unit Charge) 29 units SQ HS [facility]; Protocol Stop: 02/15/22 20:59 Last Admin: 01/16/22 21:00 Dose: 29 units Documented by: Metoprolol Succinate (Metoprolol Succ 25mg Ext Rel Tab) 25 mg PO DAILY [facility] Stop: 02/14/22 08:59 Last Admin: 01/17/22 08:15 Dose: 25 mg Documented by: Miscellaneous (Carbohydrates For Hypoglycemia ) 15 - 30 gm PO UD PRN PRN Reason: Hypoglycemia Protocol Stop: 02/12/22 23:27 Last Admin: 01/15/22 00:52 Dose: 15 gm Documented by: Miscellaneous Information (Pharmacy Glycemic Mgmt Consult) 1 ea N/A UD PRN PRN Reason: Consult Stop: 02/13/22 07:49 Multivitamins ([facility]itamin Tab) [facility] Stop: 02/13/22 08:59 Last Admin: 01/17/22 08:16 Dose: 1 tab Documented by: Oxycodone HCl (Oxycodone Hcl Ir 5 Mg Tab (Immediate Release)) 5 mg PO Q4H PRN PRN Reason: pain Stop: 01/28/22 05:33 Pantoprazole Sodium (Pantoprazole 40 Mg Tab) 40 mg PO QAM [facility] Stop: 02/13/22 08:59 Last Admin: 01/17/22 08:15 Dose: 40 mg Documented by: Polyethylene Glycol (Polyethylene (Miralax) 17 Gm Pack) 17 gm PO DAILY [facility] Stop: 02/13/22 15:59 Last Admin: 01/17/22 08:08 Dose: Not Given Documented by: Senna/Docusate Sodium (Docusate Sodium/Senna 50/8.6mg Tab) 1 tab PO QAM [facility] Stop: 02/13/22 05:14 Last Admin: 01/17/22 08:15 Dose: 1 tab Documented by:
--- NOTE | 2022-01-17 14:32 | Discharge Summary ---
Date of Service January 17, 2022 Admission HPI Per Admitting Provider History obtained from patient and records. Medical history significant for COPD/ILD, moderate aortic stenosis, hypertension, hyperlipidemia, DM2 insulin requiring, TIA, gout, past tobacco/alcohol abuse as per records. Last confinement November 2021 for possible TIA presenting as dizziness symptoms. Patient discharged on antiplatelet Rx. Patient thinks he ran out of insulin last week. Blood sugars noted to be 200s to 600s at home. Patient feeling imbalance and dehydrated. No chest pain. Short of breath from weakness as per patient. Achy headache and abdominal pain complaints. At the ER, IV insulin started for hyperglycemic crisis. 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 Admission Exam Per Admitting Provider GENERAL: Uncomfortable, chronically ill, no respiratory distress SKIN: Normal color, warm HEENT: [place] palpebral conjunctivae, no ptosis, dry buccal mucosa NECK : Supple, no tenderness CHEST : Decreased breath sounds no tenderness HEART : Tachycardic, no obvious murmurs ABDOMEN: Some distention, epigastric tenderness EXTREMITIES : No LE swelling/tenderness, no other conspicuous deformities noted NEUROLOGIC : Coherent, no facial asymmetry, slightly hard of hearing, no other gross focality Principal Diagnosis Hyperglycemic crisis DKA/HHS AGMA ARF pancreatitis Discharge Exam GENERAL: Elderly male, thin, in no acute distress HEENT: NC/AT. [place] palpebral conjunctivae NECK : Supple, no tenderness CHEST : CTAB, decreased breath sounds HEART : RRR, no obvious murmurs ABDOMEN: Positive bowel sounds, soft, nontender to palpation - epigastric tenderness resolved EXTREMITIES : No LE swelling, moves extremities SKIN: Normal color, warm NEUROLOGIC : Coherent, no facial asymmetry, slightly hard of hearing, moves extremities Discharge Data Allergies Allergy/AdvReac Type Severity Reaction Status Date / Time erythromycin base Allergy Mild Abdominal Verified 01/13/22 22:38 Pain Consultations 01/13/22 23:33 ED Decision to Admit Stat Ordered Studies 01/14/22 00:40 CT abd pelvis wo con Urgent FINDINGS: Lung base: Interlobular septal thickening is again seen at both lung bases characteristic of underlying interstitial lung disease. No honeycombing is present. Abdominal cavity: There is no evidence for abdominal mass, adenopathy or ascites. Liver: The liver is homogeneous in attenuation on these limited noncontrast images.. Spleen: The spleen is homogeneous in attenuation on these limited noncontrast images. Pancreas: Compared to previous examination, there is now diffuse edema present throughout the body the pancreas most characteristic of early acute pancreatitis. No peripancreatic fluid collections are identified. No gross mass lesions are seen. Gall Bladder: The gallbladder is well distended with no evidence for cholelithiasis, wall thickening or pericholecystic edema.. Adrenal glands: The adrenal glands are normal in size and attenuation on these limited noncontrast images. Kidneys: The kidneys are homogeneous in attenuation on these limited noncontrast images. There is no evidence for gross renal mass, calculus or hydronephrosis bilaterally. Bowel: The stomach is distended with liquid and food stuff. The bowel loops are normally placed within the abdomen and pelvis without evidence for dilatation or obstruction. There is no evidence for mass lesion. There is mild fecal stasis without evidence for impaction or obstruction. There are no inflammatory changes present. There is no evidence for free air. Bladder: There is no evidence for focal bladder wall thickening, calculus or diverticulum. : There is no evidence for pelvic mass or adenopathy. The prostate is mildly enlarged. Vasculature: There is no evidence for focal aneurysmal dilatation of the abdominal aorta. Atherosclerotic calcification is present. Osseous structures: There is no acute osseous pathology. Mild degenerative changes are seen within the spine. IMPRESSION: 1. Compared to the previous study, diffuse edematous changes are now seen throughout the body of the pancreas highly suspicious for acute pancreatitis. No peripancreatic fluid collections are identified. 2. Mild fecal stasis without evidence for impaction or obstruction. 3. Additional nonacute findings are delineated above. CT head/brain wo con Urgent FINDINGS: Extraaxial space: There is no evidence for subdural hematoma. There are no ext ra-axial fluid collections. Ventricles and cisterns: The ventricles are normal in size and configuration. There is no evidence for midline shift or mass effect. Parenchyma: There is no subarachnoid or intraparenchymal hemorrhage. There is no evidence for an acute infarct or cerebral edema. There is homogeneous attenuation of the brain parenchyma. There are no gross mass lesions. Osseous structures: There is no evidence for an acute fracture. The visualized paranasal sinuses are clear. The mastoid air cells are clear bilaterally. Soft tissues: There is no evidence for focal soft tissue swelling. IMPRESSION: 1. No acute intracerebral pathology. Diabetes Follow up Diabetes Follow-up Needed for HgbA1c >9% Hospital Course (1) Hyperglycemic crisis in diabetes mellitus: Combined DKA/HHS Secondary to missed insulin doses DM2 insulin requiring, suboptimal control as of recent hemoglobin A1c of 13 last December 2021 pharmacy glycemic control consultation DM education On admission on IV insulin, now transitioned to subcu insulin Tolerating clear liquid diet, advance diet repeat A1c >13% Discussed with the patient, pharmacist, and public health educator Patient may have troubles getting insulin. However currently has some insulin at home, that he would like to finish. After he finishes the insulin he has, plan to transition to 70/30 insulin. Per glycemic pharmacist: Patient admits to struggling with his diabetes management at home (he would prefer a more simple regimen and mentions financial issues). Based on discussions with provider and CDE, it was determined that Derek may benefit from transition to 70/30 insulin due to cost savings and regimen simplification. However, patient has 2 Lantus pens and 2 Novolog pens remaining at home that he would like to use up first, therefore this transition will likely occur under the care of his PCP (or Alligator Trapper if he has one). General recommends based on current insulin usage: - Discontinue Lantus - Discontinue Novolog - Start 70/30 insulin 33 units SQ with breakfast and 17 units with dinner Abdominal pain secondary to illness ? Pancreatitis given lipase elevation and CT findings Bowel rest IVF Analgesia, titrate home beta-fortino while ARB on hold 01/15 -abdominal pain much improved, patient is tolerating clear liquid diet, advance diet 01/16 -no abdominal pain, tolerating regular diet HTN, elevated secondary to illness Medical telemetry given uncontrolled BP on admission - BP improved Appropriate to hold ARB until creatinine back to baseline - resume on DC ARF, AGMA secondary to illness - resolved Gentle IV hydration given valvular heart disease, IV insulin Cr on admission 1.79, now down to baseline 0.7 Chronic conditions hx COPD/ILD, pulmonary status at baseline moderate aortic stenosis - follow up w/ cardiology scheduled hyperlipidemia on statin Rx hx TIA past tobacco/alcohol abuse Total Time Total Time Spent Total Time Spent (In Minutes): 40 Discharge Plan Discharge Items Patient Disposition: Home - Self-Care Reason For Visit: HTN URG, HYPERGLYCEMIC CRISIS Discharge Diagnosis: Hyperglycemic crisis DKA/HHS AGMA ARF pancreatitis Activity: Per Instructions section Non-emergency contact: Primary Care Provider Call non-emergency contact if: you have any medication questions and your symptoms worsen Follow-up/Referrals: Echocardiogram [Other] (Date & Time 01/18/2022 9:15 AM Provider TAPPING MACHINE OPERATOR 2 [address] Department Cardiac Studies, [facility] ) Anabel Ortiz MD [Primary Care Provider] - (Date & Time 01/19/2022 11:20 AM Provider Anabel Ortiz MD Department Family Practice [facility] ) Cecelia Morataya CRNP [Nurse Practitioner] - (Date & Time 01/20/2022 3:00 PM Provider GREGORIA Leigh Department Cardiology, [facility] ) Diet: Carb Consistent or DM2 and Heart Healthy Addtl Attending Provider Instructions: Follow-up with your primary care doctor, the appointment was scheduled for you for January 19. Continue using your current insulin regimen, until you run out. Then, the plan is to switch you to a different type of insulin - 70/30. It is recommended that you use new type of insulin, 33 units subcu with breakfast, and 17 units with dinner. Discuss this further with your primary care doctor, and [facility]. Make sure to monitor your blood sugar at home, and write down your numbers. Bring this to your primary care doctor and [facility] clinic so they can adjust your insulin properly. Pending Studies at Discharge: No Stand-Alone Forms: My [facility] Pet[employer]Stay, Smoking Cessation Medications and DC Order Prescriptions: Continued metformin 1,000 mg tablet 1,000 mg PO BIDM RF: 0 omeprazole 20 mg capsule,delayed release(DR/EC) 20 mg PO QAM RF: 0 multivitamin Tablet 1 tab PO QAM RF: 0 insulin aspart U-100 [Novolog Flexpen U-100 Insulin] 100 unit/mL (3 mL) insulin pen See Rx Instructions .ROUTE .COMPLEX RF: 0 acetaminophen [Acetaminophen Extra Strength] 500 mg Tablet 500 mg PO Q6H PRN (Reason: Pain) RF: 0 insulin glargine [Lantus Solostar U-100 Insulin] 100 unit/mL (3 mL) insulin pen 36 unit SUBCUT HS RF: 0 losartan 50 mg tablet 50 mg PO DAILY RF: 0 atorvastatin 40 mg tablet 40 mg PO DAILY RF: 0 calcium carbonate [Calcium Antacid] 200 mg calcium (500 mg) Tablet,Chewable 200 mg PO DAILY PRN (Reason: Gi Upset) RF: 0 albuterol sulfate [Ventolin HFA] 90 mcg/actuation Hfa Aerosol Inhaler 2 puff INHALATION Q4 PRN (Reason: Shortness Of Breath Or Wheezing) RF: 0 clopidogrel 75 mg Tablet 75 mg PO QAM Qty: 30 RF: 0 oxycodone 5 mg Tablet 5 mg PO Q4H PRN (Reason: pain) Qty: 5 RF: 0 metoprolol succinate 25 mg tablet extended release 24 hr 12.5 mg PO DAILY RF: 0 Discontinued aspirin 81 mg Tablet,Delayed Release (Dr/Ec) 81 mg PO QAM RF: 0 empagliflozin 10 mg Tablet 10 mg PO DAILY RF: 0 dulaglutide 0.75 mg/0.5 mL Pen Injector 0.75 mg SUBCUT WK RF: 0 Discharge Orders: Discharge Order (Routine); Ordered 01/17/22 Ordered By: Julio Stevenson Admission Data Admit Date/Time: 01/14/22 03:59 Attending Provider: Julio Stevenson Admit Provider: Jose Lyn Primary Care Provider: Anabel Ortiz Other Providers: Jose Lyn
== END 2022-01-17 15:12 | disposition home or self-care (01) | DRG 637 ==
LOC: ED 21:17 → 2N 01-14 03:59

== ENCOUNTER 2022-05-08 22:51 | Inpatient (IN) ==
[2022-05-08] MEDS ORDERED: SODIUM CHLORIDE 0.9% 1000ML 1,000 ML IV SCH (23:15)
[2022-05-08] MEDS ORDERED: PIPERACILLIN/TAZOBACTAM 4.5 GM/120 ML BAG IV ONE (23:17)
--- NOTE | 2022-05-08 23:36 | Emergency Department Note ---
History of Present Illness General Chief complaint: Confusion Stated complaint: AMS, Hyperglycemia History of Present Illness This 62-year-old presents to the ER complaining of altered mental status his blood sugar read over 600 per EMS Location: Generalized Quality: Confused Severity: Moderate Duration: Today Timing: Today Context: Son went to check on him tonight and was altered and called EMS Modifying factors: better with nothing; worse with nothing Patient is altered and unable to obtain history. EMS states that the son checked on him tonight And noticed he was altered and called EMS. EMS got a blood sugar greater than 600. Patient himself is not making much sense. He does not moan to palpation of the abdomen. Rectal temp is 31. He is tachycardic and normotensive. Blood sugar greater than 600. Home Medications Medication Instructions Recorded Confirmed Type metformin 1,000 mg tablet 1,000 mg PO BIDM 03/11/19 05/09/22 History omeprazole 20 mg capsule,delayed 20 mg PO DAILYBB 03/11/19 05/09/22 History release insulin aspart U-100 100 unit/mL See Rx Instructions .Route .COMPLEX 06/17/20 05/09/22 History (3 mL) subcutaneous pen (Novolog Flexpen U-100 Insulin aspart) multivitamin 1 tab PO QAM 06/17/20 05/09/22 History metoprolol succinate 25 mg 25 mg PO DAILY 09/19/20 05/09/22 History tablet,extended release 24 hr acetaminophen 500 mg tablet 500 mg PO Q6H PRN Pain 08/01/21 05/09/22 History (Acetaminophen Extra Strength) insulin glargine 100 unit/mL (3 36 unit subcut HS 08/01/21 05/09/22 History mL) subcutaneous pen (Lantus Solostar U-100 Insulin) albuterol sulfate 90 mcg/actuation 2 puff inhalation Q4 PRN Shortness 12/01/21 05/09/22 History aerosol inhaler (Ventolin HFA) Of Breath Or Wheezing calcium carbonate 200 mg calcium 200 mg PO DAILY PRN Gi Upset 12/01/21 05/09/22 History (500 mg) chewable tablet (Calcium Antacid) losartan 50 mg tablet 50 mg PO DAILY 12/01/21 05/09/22 History clopidogrel 75 mg tablet 75 mg PO QAM #30 tabs 12/05/21 05/09/22 Rx oxycodone 5 mg tablet 5 mg PO Q4H PRN pain #5 tabs 12/05/21 05/09/22 Rx atorvastatin 80 mg tablet 80 mg PO QAM 05/09/22 05/09/22 History cyclobenzaprine 5 mg tablet 5 mg PO BID PRN Muscle Spasm 05/09/22 05/09/22 History multivitamin 1 tab PO QAM 05/09/22 05/09/22 History naproxen 500 mg tablet 500 mg PO BID PRN Pain 05/09/22 05/09/22 History tiotropium bromide 18 mcg capsule 1 cap inhalation DAILY 05/09/22 05/09/22 History with inhalation device (Spiriva with HandiHaler) Allergies Allergy/AdvReac Type Severity Reaction Status Date / Time erythromycin base Allergy Mild Abdominal Verified 05/09/22 01:01 Pain Past Med/Surg History Medical History Carpal tunnel syndrome Diabetes DKA (diabetic ketoacidoses) Hyperkalemia Hyperlipidemia Hypertension Irritable bowel syndrome Tobacco use Surgical History History of carpal tunnel surgery History of foot surgery Family History Other Diabetes Heart disease Social History Smoking Status: Current every day smoker Tobacco Type: Cigarettes Cigarettes Per Day: 5; Second Hand Exposure: Yes; Hx Alcohol Use: No Hx Substance Use: No Preferred Language: Russian Communication Ability: Effective Commissioner Of Conciliation Required: No Beliefs That Will Affect Care: None marital status: Current Living Situation: Alone Other Information That Helps Us Care for You: No Feels Safe at Home: Yes Safety Concerns: Feels Safe At This Time Assistive Devices: Glasses Review of Systems A total of 10 systems reviewed and were otherwise negative Physical Exam Vital Signs Vital Signs - 24 hr 05/08/22 23:43 05/09/22 00:55 05/08/22 23:01 Temperature 31.1 C L Temperature Source Rectal Pulse Rate 132 H 72 70 Pulse Rate from SpO2 Sensor Respiratory Rate 20 18 Respiratory Effort / Characteristics Non-Labored Spontaneous Respiratory Depth Normal Blood Pressure 116/65 Blood Pressure Mean 82 Blood Pressure Position Lying Pulse Oximetry 99 99 Oxygen Delivery Method Room Air Room Air Sepsis Recent Fever Within 48 Hours No Sepsis New/Unexplained Change in Mental Status Yes Sepsis Action Taken by Nursing Physician Notified 05/08/22 23:03 05/08/22 23:03 05/08/22 23:10 Temperature Temperature Source Pulse Rate 131 H Pulse Rate from SpO2 Sensor Respiratory Rate 24 Respiratory Effort / Characteristics Respiratory Depth Blood Pressure 96/48 L 117/57 L Blood Pressure Mean 64 77 Blood Pressure Position Pulse Oximetry Oxygen Delivery Method Sepsis Recent Fever Within 48 Hours Sepsis New/Unexplained Change in Mental Status Sepsis Action Taken by Nursing 05/08/22 23:10 05/08/22 23:20 05/08/22 23:21 Temperature Temperature Source Pulse Rate 131 H 130 H Pulse Rate from SpO2 Sensor 66 65 Respiratory Rate 17 26 H Respiratory Effort / Characteristics Respiratory Depth Blood Pressure 118/63 Blood Pressure Mean 81 Blood Pressure Position Pulse Oximetry 99 97 Oxygen Delivery Method Sepsis Recent Fever Within 48 Hours Sepsis New/Unexplained Change in Mental Status Sepsis Action Taken by Nursing 05/08/22 23:21 05/08/22 23:30 05/08/22 23:30 Temperature Temperature Source Pulse Rate 131 H 66 Pulse Rate from SpO2 Sensor 66 66 Respiratory Rate 20 17 Respiratory Effort / Characteristics Respiratory Depth Blood Pressure 141/56 H Blood Pressure Mean 84 Blood Pressure Position Pulse Oximetry 98 99 Oxygen Delivery Method Sepsis Recent Fever Within 48 Hours Sepsis New/Unexplained Change in Mental Status Sepsis Action Taken by Nursing 05/08/22 23:40 05/08/22 23:40 05/08/22 23:50 Temperature Temperature Source Pulse Rate 67 Pulse Rate from SpO2 Sensor 67 Respiratory Rate 18 Respiratory Effort / Characteristics Respiratory Depth Blood Pressure 124/56 L 139/62 Blood Pressure Mean 78 87 Blood Pressure Position Pulse Oximetry 99 Oxygen Delivery Method Sepsis Recent Fever Within 48 Hours Sepsis New/Unexplained Change in Mental Status Sepsis Action Taken by Nursing 05/08/22 23:50 05/09/22 00:00 05/09/22 00:00 Temperature Temperature Source Pulse Rate 69 69 Pulse Rate from SpO2 Sensor 69 69 Respiratory Rate 19 22 Respiratory Effort / Characteristics Respiratory Depth Blood Pressure 124/54 L Blood Pressure Mean 77 Blood Pressure Position Pulse Oximetry 99 99 Oxygen Delivery Method Sepsis Recent Fever Within 48 Hours Sepsis New/Unexplained Change in Mental Status Sepsis Action Taken by Nursing 05/09/22 00:09 05/09/22 00:10 05/09/22 00:11 Temperature Temperature Source Pulse Rate 70 70 Pulse Rate from SpO2 Sensor 70 70 Respiratory Rate 26 H 16 Respiratory Effort / Characteristics Respiratory Depth Blood Pressure 139/62 Blood Pressure Mean 87 Blood Pressure Position Pulse Oximetry 99 99 Oxygen Delivery Method Sepsis Recent Fever Within 48 Hours Sepsis New/Unexplained Change in Mental Status Sepsis Action Taken by Nursing 05/09/22 00:33 05/09/22 00:33 05/09/22 00:40 Temperature Temperature Source Pulse Rate 72 Pulse Rate from SpO2 Sensor 67 Respiratory Rate 20 Respiratory Effort / Characteristics Respiratory Depth Blood Pressure 157/59 H 151/64 H Blood Pressure Mean 91 93 Blood Pressure Position Pulse Oximetry 99 Oxygen Delivery Method Sepsis Recent Fever Within 48 Hours Sepsis New/Unexplained Change in Mental Status Sepsis Action Taken by Nursing 05/09/22 00:40 05/09/22 00:50 05/09/22 00:50 Temperature Temperature Source Pulse Rate 72 71 Pulse Rate from SpO2 Sensor 72 70 Respiratory Rate 20 18 Respiratory Effort / Characteristics Respiratory Depth Blood Pressure 140/64 Blood Pressure Mean 89 Blood Pressure Position Pulse Oximetry 99 99 Oxygen Delivery Method Sepsis Recent Fever Within 48 Hours Sepsis New/Unexplained Change in Mental Status Sepsis Action Taken by Nursing 05/09/22 01:29 Temperature 32.1 C L Temperature Source Rectal Pulse Rate Pulse Rate from SpO2 Sensor Respiratory Rate Respiratory Effort / Characteristics Respiratory Depth Blood Pressure Blood Pressure Mean Blood Pressure Position Pulse Oximetry Oxygen Delivery Method Sepsis Recent Fever Within 48 Hours Sepsis New/Unexplained Change in Mental Status Sepsis Action Taken by Nursing VITALS: Vitals are noted on the nurse's note and reviewed by myself. Vital signs tachycardic. GENERAL: White male with Kussmaul breathing altered blood sugar greater than 600 and pH is 7, in acute distress SKIN: The skin was without rashes, erythema, edema, or bruising. There is no tenting of the skin. Capillary reflex less than 2 seconds. HEAD: Normocephalic atraumatic. EARS: External auditory canals clear, tympanic membranes pearly mckeon without erythema or effusion bilaterally. EYES: Pupils equal round and reactive to light and accommodation. Conjunctivae without injection, sclerae without icterus. Extraocular movements intact. NOSE: Patent, turbinates without inflammation or discharge. No sinus tenderness. MOUTH: Mucous membranes dry. Pharynx without erythema or exudate. Uvula midline. Airway patent. Tongue does not deviate. NECK: Supple without nuchal rigidity. No lymphadenopathy. No thyromegaly. Cervical spine is nontender. No JVD. HEART: Tachycardic rate and rhythm LUNGS: Clear to auscultation bilaterally without wheezes, rales or rhonchi. No retractions or accessory muscle use. ABDOMEN: Positive bowel sounds x 4. Normal tympanic percussion. Soft, diffusely tender to palpation, without masses or organomegaly. Butler sign negative. No guarding or rebound tenderness. No CVA tenderness MUSCULOSKELETAL: No muscle atrophy, erythema, or edema noted. NEURO: Patient was alert but not oriented to person place and time. No focal neurological deficits. Course Administered Medications Heparin Sodium (Porcine) (Heparin Sod 5,000 Unit/0.5 Ml Vial) 5,000 units SQ Q8 [facility] Stop: 06/08/22 05:59 Last Admin: 05/09/22 05:27 Dose: 5,000 units Documented By: SALTY Insulin Human Regular 250 (units/ Sodium Chloride) 250 mls @ 6.4 mls/hr IV .Q24H [facility]; Protocol Stop: 06/08/22 00:29 Last Admin: 05/09/22 01:58 Dose: 6.4 units/hr, 6.4 mls/hr Documented By: CASSIDY Co-signed By: DEWAYNE Doxycycline Hyclate 100 mg/ (Dextrose) 110 mls @ 50 mls/hr IV Q12H [facility] Stop: 05/16/22 03:59 Last Infusion: 05/09/22 06:40 Dose: 0 mls/hr Documented By: Admin: 05/09/22 04:18 Dose: 50 mls/hr Documented By: SALTY Potassium Chloride (K Abraham / Wtr) 10 meq in 100 mls @ 100 mls/hr IV ONE ONE Stop: 05/09/22 06:47 Last Admin: 05/09/22 06:08 Dose: 100 mls/hr Documented By: SALTY Lactated Ringer's (Lr) 1,000 mls @ 175 mls/hr IV .Q5H43M [facility] Stop: 06/08/22 06:14 Last Admin: 05/09/22 06:23 Dose: 175 mls/hr Documented By: SALTY Discontinued Medications Sodium Chloride (Nss 1000ml) 1,000 mls @ 999 mls/hr IV .Q1H1M [facility] Stop: 05/09/22 00:15 Last Infusion: 05/09/22 02:10 Dose: 0 mls/hr Documented By: Admin: 05/08/22 23:59 Dose: 999 mls/hr Documented By: CC Sodium Chloride (Nss 1000ml) 1,000 mls @ 999 mls/hr IV .Q1H1M [facility] Stop: 05/09/22 01:15 Last Infusion: 05/09/22 02:10 Dose: 0 mls/hr Documented By: Admin: 05/09/22 01:06 Dose: 999 mls/hr Documented By: Infusion: 05/09/22 01:04 Dose: 0 mls/hr Documented By: Admin: 05/09/22 00:00 Dose: 999 mls/hr Documented By: CC Piperacillin Sod/Tazobactam Sod (Zosyn) 4.5 gm in 120 mls @ 240 mls/hr IV NOW ONE Stop: 05/08/22 23:46 Last Infusion: 05/09/22 02:10 Dose: 0 mls/hr Documented By: Admin: 05/09/22 01:10 Dose: 240 mls/hr Documented By: CC Lactated Ringer's (Lr) 1,000 mls @ 999 mls/hr IV .Q1H1M ONE Stop: 05/09/22 00:52 Last Infusion: 05/09/22 02:23 Dose: 0 mls/hr Documented By: Admin: 05/09/22 01:10 Dose: 999 mls/hr Documented By: CC Calcium Gluconate 1,000 mg/ (Dextrose) 60 mls @ 240 mls/hr IV ONCE STA Stop: 05/09/22 01:00 Last Infusion: 05/09/22 02:21 Dose: 0 mls/hr Documented By: Admin: 05/09/22 02:05 Dose: 240 mls/hr Documented By: CC Sodium Bicarbonate 150 meq/ (Dextrose) 1,150 mls @ 290 mls/hr IV .Q3H58M [facility] Stop: 05/09/22 04:45 Last Infusion: 05/09/22 03:30 Dose: 0 mls/hr Documented By: Admin: 05/09/22 02:06 Dose: 290 mls/hr Documented By: CC Sodium Bicarbonate 150 meq/ (Sterile Water) 1,150 mls @ 150 mls/hr IV .Q7H40M [facility] Stop: 05/09/22 10:44 Last Infusion: 05/09/22 06:22 Dose: 0 mls/hr Documented By: Admin: 05/09/22 03:47 Dose: 150 mls/hr Documented By: SALTY Sodium Chloride (Nss 1000ml) 1,000 mls @ 200 mls/hr IV .Q5H [facility] Stop: 06/08/22 03:32 Last Admin: 05/09/22 04:13 Dose: Not Given Documented By: SALTY Insulin Human Regular (Novolin-R Bolus From Bag) 6.4 units IV ONE ONE Stop: 05/09/22 01:16 Last Admin: 05/09/22 02:20 Dose: 6.4 units Documented By: CASSIDY Co-signed By: JOSE Mckeon (Dka Goal Range 150-250 Mg/Dl) 1 each N/A ONE ONE Stop: 05/09/22 00:28 Last Admin: 05/09/22 03:48 Dose: Not Given Documented By: SALTY Mckeon (Pending 1/2nss+20meq Kcl Ivf) 1 each N/A Q2H [facility]ELI Stop: 06/08/22 03:59 Last Admin: 05/09/22 06:24 Dose: Not Given Documented By: Admin: 05/09/22 06:22 Dose: Not Given Documented By: SALTY Mckeon (Dka Goal Range 150-250 Mg/Dl) 1 each N/A ONE ONE Stop: 05/09/22 03:34 Last Admin: 05/09/22 03:49 Dose: Not Given Documented By: SALTY Potassium Chloride (Potassium Chloride Crtab 20 Meq Tabcr) 20 meq PO NOW STA Stop: 05/09/22 04:48 Last Admin: 05/09/22 05:44 Dose: Not Given Documented By: SALTY Critical Care Time Critical Care Time: Yes Total Critical Care Time: 65 I have personally spent 65 minutes of critical care time in the direct management of this patient. This includes bedside care, interpretation of diagnostic studies, and testing, discussion with consultants, patient, and family members, and other required patient management activities. This 65 minutes is in excess of all separately billable procedures. Medical Decision Making Medical Records Attestation: I reviewed the patient's medical records. Home Medications Current Medication List: was personally reviewed by me Laboratory Data Attestation: I reviewed the patient's lab results. Result diagrams: 05/09/22 03:43 05/09/22 05:34 Lab Results 05/08/22 05/08/22 05/08/22 Range/Units 23:23 23:26 23:26 WBC 13.94 H (4.8-10.8) K/ul RBC 5.42 (4.63-6.08) M/uL Hgb 17.2 (14.0-18.0) g/dl POC Hgb 16.7 (14.0-18.0) g/dl Hct 55.2 H (40.1-51.0) % POC Hct 49 (42-52) % MCV 101.8 H (80.0-100.0) fL MCH 31.7 (25.0-34.0) pg MCHC 31.2 L (32.0-36.0) g/dL RDW Std Deviation 53.0 H (36.4-46.3) fL RDW Coeff of Mariah 14.3 (11.5-14.5) % Plt Count 176 (130-400) K/uL MPV 12.6 H (9.4-12.4) fL Immature Gran % (Auto) 1.8 % Neut % (Auto) 76.7 % Lymph % (Auto) 10.3 % Dewitt % (Auto) 10.2 % Eos % (Auto) 0.1 % Baso % (Auto) 0.9 % Neut # (Auto) 10.70 H (1.4-6.5) K/uL Lymph # (Auto) 1.43 (1.2-3.4) K/uL Dewitt # (Auto) 1.42 H (0.24-0.82) K/uL Eos # (Auto) 0.01 (0-0.50) K/uL Baso # (Auto) 0.13 (0-0.2) K/uL Immature Gran # (Auto) 0.25 H (0.00-0.02) K/uL POC pH 7.06 L* (7.35-7.45) POC pCO2 23 L (35-46) mmHg POC pO2 118 H (80-95) mmHg POC HCO3 6 L (19-24) joseph/L POC Total CO2 7 L* (24-31) mmol/L POC Base Excess -24.0 L (-9-1.8) joseph/L POC ABG O2 Sat 97.0 H (90-95) % POC Sodium 126 L (135-144) mmol/L Sodium 126 L (136-145) mmol/L POC Potassium 6.1 H* (3.3-5.0) mmol/L Potassium 6.9 H* (3.5-5.1) mmol/L POC Chloride (101-112) mmol/L Chloride 87 L (98-107) mmol/L Carbon Dioxide 7 L* (21-32) mmol/L Anion Gap 32 H (3-11) POC Anion Gap (16-25) mmol/L POC BUN (7-18) mg/dl BUN 112 H (6-23) mg/dl Creatinine 4.55 H* (0.6-1.4) mg/dl POC Creatinine (0.6-1.3) mg/dl Est Cr Clr Drug Dosing 15.5 ml/min Est GFR ( Amer) 15.1 ml/min Est GFR (Non-Af Amer) 13.0 ml/min BUN/Creatinine Ratio 24.6 H (10-20) Glucose 1368 H* (70-99(Fasting)) mg/dl POC Glucose (70-99) mg/dl POC Glucose (other) (70-99) mg/dl Lactate Calcium 9.5 (8.5-10.1) mg/dl POC Ioniz Calcium Yaritza (1.12-1.32) mmol/l Magnesium 4.2 H (1.7-2.4) mg/dl Total Bilirubin 0.4 (0.2-1.0) mg/dl Direct Bilirubin TNP AST 20 (13-39) U/L ALT 39 (7-52) U/L Alkaline Phosphatase 179 H (34-104) U/L Total Creatine Kinase 326 H (30-223) U/L Troponin I High Sens 99.7 H* D (0-20) pg/ml Total Protein 7.4 (6.0-8.3) gm/dl Albumin 3.9 (3.4-5.0) gm/dl Procalcitonin (0-0.5) ng/ml Urine Color Urine Appearance (Clear) Urine pH (4.5-7.5) Ur Specific Lewis (1.000-1.030) Urine Protein (Negative) Urine Glucose (UA) (Negative) Urine Ketones (Negative) Urine Blood (Negative) Urine Nitrite (Negative) Urine Bilirubin (Negative) Urine Urobilinogen (Negative) Ur Leukocyte Esterase (Negative) Urine WBC (Auto) (0-5) /hpf Urine RBC (Auto) (0-4) /hpf U Hyaline Cast (Auto) (0-5) /lpf U Epithel Cells (Auto) (0-5) /lpf Urine Bacteria (Auto) (Negative) 05/08/22 05/08/22 05/08/22 Range/Units 23:26 23:27 23:44 WBC (4.8-10.8) K/ul RBC (4.63-6.08) M/uL Hgb (14.0-18.0) g/dl POC Hgb 16.3 (14.0-18.0) g/dl Hct (40.1-51.0) % POC Hct 48 (42-52) % MCV (80.0-100.0) fL MCH (25.0-34.0) pg MCHC (32.0-36.0) g/dL RDW Std Deviation (36.4-46.3) fL RDW Coeff of Mariah (11.5-14.5) % Plt Count (130-400) K/uL MPV (9.4-12.4) fL Immature Gran % (Auto) % Neut % (Auto) % Lymph % (Auto) % Dewitt % (Auto) % Eos % (Auto) % Baso % (Auto) % Neut # (Auto) (1.4-6.5) K/uL Lymph # (Auto) (1.2-3.4) K/uL Dewitt # (Auto) (0.24-0.82) K/uL Eos # (Auto) (0-0.50) K/uL Baso # (Auto) (0-0.2) K/uL Immature Gran # (Auto) (0.00-0.02) K/uL POC pH (7.35-7.45) POC pCO2 (35-46) mmHg POC pO2 (80-95) mmHg POC HCO3 (19-24) joseph/L POC Total CO2 10 L (24-31) mmol/L POC Base Excess (-9-1.8) joseph/L POC ABG O2 Sat (90-95) % POC Sodium 128 L (135-144) mmol/L Sodium (136-145) mmol/L POC Potassium 6.3 H* (3.3-5.0) mmol/L Potassium (3.5-5.1) mmol/L POC Chloride 100 L (101-112) mmol/L Chloride (98-107) mmol/L Carbon Dioxide (21-32) mmol/L Anion Gap (3-11) POC Anion Gap 25.0 (16-25) mmol/L POC BUN 113 H* (7-18) mg/dl BUN (6-23) mg/dl Creatinine (0.6-1.4) mg/dl POC Creatinine 4.3 H (0.6-1.3) mg/dl Est Cr Clr Drug Dosing ml/min Est GFR ( Amer) ml/min Est GFR (Non-Af Amer) ml/min BUN/Creatinine Ratio (10-20) Glucose (70-99(Fasting)) mg/dl POC Glucose > 600 H* (70-99) mg/dl POC Glucose (other) > 700 H* (70-99) mg/dl Lactate Calcium (8.5-10.1) mg/dl POC Ioniz Calcium Yaritza 1.15 (1.12-1.32) mmol/l Magnesium (1.7-2.4) mg/dl Total Bilirubin (0.2-1.0) mg/dl Direct Bilirubin AST (13-39) U/L ALT (7-52) U/L Alkaline Phosphatase (34-104) U/L Total Creatine Kinase (30-223) U/L Troponin I High Sens (0-20) pg/ml Total Protein (6.0-8.3) gm/dl Albumin (3.4-5.0) gm/dl Procalcitonin 3.08 H (0-0.5) ng/ml Urine Color Urine Appearance (Clear) Urine pH (4.5-7.5) Ur Specific Lewis (1.000-1.030) Urine Protein (Negative) Urine Glucose (UA) (Negative) Urine Ketones (Negative) Urine Blood (Negative) Urine Nitrite (Negative) Urine Bilirubin (Negative) Urine Urobilinogen (Negative) Ur Leukocyte Esterase (Negative) Urine WBC (Auto) (0-5) /hpf Urine RBC (Auto) (0-4) /hpf U Hyaline Cast (Auto) (0-5) /lpf U Epithel Cells (Auto) (0-5) /lpf Urine Bacteria (Auto) (Negative) 05/09/22 05/09/22 05/09/22 Range/Units 00:04 01:27 01:27 WBC (4.8-10.8) K/ul RBC (4.63-6.08) M/uL Hgb (14.0-18.0) g/dl POC Hgb (14.0-18.0) g/dl Hct (40.1-51.0) % POC Hct (42-52) % MCV (80.0-100.0) fL MCH (25.0-34.0) pg MCHC (32.0-36.0) g/dL RDW Std Deviation (36.4-46.3) fL RDW Coeff of Mariah (11.5-14.5) % Plt Count (130-400) K/uL MPV (9.4-12.4) fL Immature Gran % (Auto) % Neut % (Auto) % Lymph % (Auto) % Dewitt % (Auto) % Eos % (Auto) % Baso % (Auto) % Neut # (Auto) (1.4-6.5) K/uL Lymph # (Auto) (1.2-3.4) K/uL Dewitt # (Auto) (0.24-0.82) K/uL Eos # (Auto) (0-0.50) K/uL Baso # (Auto) (0-0.2) K/uL Immature Gran # (Auto) (0.00-0.02) K/uL POC pH (7.35-7.45) POC pCO2 (35-46) mmHg POC pO2 (80-95) mmHg POC HCO3 (19-24) joseph/L POC Total CO2 (24-31) mmol/L POC Base Excess (-9-1.8) joseph/L POC ABG O2 Sat (90-95) % POC Sodium (135-144) mmol/L Sodium 131 L (136-145) mmol/L POC Potassium (3.3-5.0) mmol/L Potassium 5.9 H (3.5-5.1) mmol/L POC Chloride (101-112) mmol/L Chloride 98 (98-107) mmol/L Carbon Dioxide 8 L* (21-32) mmol/L Anion Gap 25 H (3-11) POC Anion Gap (16-25) mmol/L POC BUN (7-18) mg/dl BUN 106 H (6-23) mg/dl Creatinine 3.90 H D (0.6-1.4) mg/dl POC Creatinine (0.6-1.3) mg/dl Est Cr Clr Drug Dosing 18.1 ml/min Est GFR ( Amer) 18.2 ml/min Est GFR (Non-Af Amer) 15.7 ml/min BUN/Creatinine Ratio 27.2 H (10-20) Glucose 1127 H* (70-99(Fasting)) mg/dl POC Glucose (70-99) mg/dl POC Glucose (other) (70-99) mg/dl Lactate Cancelled Calcium 8.0 L (8.5-10.1) mg/dl POC Ioniz Calcium Yaritza (1.12-1.32) mmol/l Magnesium (1.7-2.4) mg/dl Total Bilirubin (0.2-1.0) mg/dl Direct Bilirubin 0.1 AST (13-39) U/L ALT (7-52) U/L Alkaline Phosphatase (34-104) U/L Total Creatine Kinase (30-223) U/L Troponin I High Sens 101.1 H* (0-20) pg/ml Total Protein (6.0-8.3) gm/dl Albumin (3.4-5.0) gm/dl Procalcitonin (0-0.5) ng/ml Urine Color Urine Appearance (Clear) Urine pH (4.5-7.5) Ur Specific Lewis (1.000-1.030) Urine Protein (Negative) Urine Glucose (UA) (Negative) Urine Ketones (Negative) Urine Blood (Negative) Urine Nitrite (Negative) Urine Bilirubin (Negative) Urine Urobilinogen (Negative) Ur Leukocyte Esterase (Negative) Urine WBC (Auto) (0-5) /hpf Urine RBC (Auto) (0-4) /hpf U Hyaline Cast (Auto) (0-5) /lpf U Epithel Cells (Auto) (0-5) /lpf Urine Bacteria (Auto) (Negative) 05/09/22 05/09/22 05/09/22 Range/Units 01:27 01:36 01:56 WBC (4.8-10.8) K/ul RBC (4.63-6.08) M/uL Hgb (14.0-18.0) g/dl POC Hgb (14.0-18.0) g/dl Hct (40.1-51.0) % POC Hct (42-52) % MCV (80.0-100.0) fL MCH (25.0-34.0) pg MCHC (32.0-36.0) g/dL RDW Std Deviation (36.4-46.3) fL RDW Coeff of Mariah (11.5-14.5) % Plt Count (130-400) K/uL MPV (9.4-12.4) fL Immature Gran % (Auto) % Neut % (Auto) % Lymph % (Auto) % Dewitt % (Auto) % Eos % (Auto) % Baso % (Auto) % Neut # (Auto) (1.4-6.5) K/uL Lymph # (Auto) (1.2-3.4) K/uL Dewitt # (Auto) (0.24-0.82) K/uL Eos # (Auto) (0-0.50) K/uL Baso # (Auto) (0-0.2) K/uL Immature Gran # (Auto) (0.00-0.02) K/uL POC pH (7.35-7.45) POC pCO2 (35-46) mmHg POC pO2 (80-95) mmHg POC HCO3 (19-24) joseph/L POC Total CO2 (24-31) mmol/L POC Base Excess (-9-1.8) joseph/L POC ABG O2 Sat (90-95) % POC Sodium (135-144) mmol/L Sodium (136-145) mmol/L POC Potassium (3.3-5.0) mmol/L Potassium (3.5-5.1) mmol/L POC Chloride (101-112) mmol/L Chloride (98-107) mmol/L Carbon Dioxide (21-32) mmol/L Anion Gap (3-11) POC Anion Gap (16-25) mmol/L POC BUN (7-18) mg/dl BUN (6-23) mg/dl Creatinine (0.6-1.4) mg/dl POC Creatinine (0.6-1.3) mg/dl Est Cr Clr Drug Dosing ml/min Est GFR ( Amer) ml/min Est GFR (Non-Af Amer) ml/min BUN/Creatinine Ratio (10-20) Glucose (70-99(Fasting)) mg/dl POC Glucose > 600 H* (70-99) mg/dl POC Glucose (other) (70-99) mg/dl Lactate 1.6 Calcium (8.5-10.1) mg/dl POC Ioniz Calcium Yaritza (1.12-1.32) mmol/l Magnesium (1.7-2.4) mg/dl Total Bilirubin (0.2-1.0) mg/dl Direct Bilirubin AST (13-39) U/L ALT (7-52) U/L Alkaline Phosphatase (34-104) U/L Total Creatine Kinase (30-223) U/L Troponin I High Sens (0-20) pg/ml Total Protein (6.0-8.3) gm/dl Albumin (3.4-5.0) gm/dl Procalcitonin (0-0.5) ng/ml Urine Color Yellow Urine Appearance Clear (Clear) Urine pH 5.0 (4.5-7.5) Ur Specific Lewis 1.022 (1.000-1.030) Urine Protein 2+ H (Negative) Urine Glucose (UA) 3+ H (Negative) Urine Ketones 1+ H (Negative) Urine Blood 2+ H (Negative) Urine Nitrite Negative (Negative) Urine Bilirubin Negative (Negative) Urine Urobilinogen Negative (Negative) Ur Leukocyte Esterase Negative (Negative) Urine WBC (Auto) 1-5 (0-5) /hpf Urine RBC (Auto) 5-10 H (0-4) /hpf U Hyaline Cast (Auto) 5-10 H (0-5) /lpf U Epithel Cells (Auto) 20-30 H (0-5) /lpf Urine Bacteria (Auto) Negative (Negative) Imaging Data Attestation: I personally reviewed and interpreted this imaging study as follows: Radiologist's Impression: Head CT 05/08/22 23:07 CT head/brain wo con CLINICAL HISTORY: 62 years-old Male with ams. Acutely altered mental status TECHNIQUE: Multiple axial CT images of the head were obtained without contrast. A dose lowering technique was utilized adhering to the principles of ALARA. CT DOSE: 959.77 mGy.cm COMPARISON: None. FINDINGS: No acute intracranial hemorrhage, midline shift, intracranial mass, hydrocephalus, territorial ischemia or abnormal extra-axial collection. The calvarium is intact. Prior bilateral lens replacement. The paranasal sinuses, mastoid air cells, and middle ear cavities are clear. IMPRESSION: No acute intracranial abnormality. ACT 112: Negative or not required by law. The above report was generated using voice recognition software. It may contain grammatical, syntax or spelling errors. Electronically signed by: Reece Catalan M.D. 05/09/2022 6:39 AM MDM Narrative Prior records/ancillary studies reviewed and summarized above. Nursing notes reviewed. Additional history obtained from EMS The patient's history was concerning for altered mental status. Differential diagnosis: Etiologies such as metabolic, infection, hypoglycemia, electrolyte abnormalities, cardiac sources, intracerebral event, toxicologic, neurologic, as well as others were entertained. Physical examination: As above. ER treatment provided: IV Lock and 2 lines were emergently placed. Bear hugger was placed. I-STAT ABG and POC electrolyte panel was written for An order was placed for continuous cardiac monitoring. The monitor shows a rate of 60-1 50 with a sinus rhythm. Insulin with drip Zosyn for possible infection On reassessment the patients mental status improved. Diagnostics interpretation by me: ECG: Ordered for altered mental status EKG: Normal sinus, normal intervals, peaking of the T waves in the lateral leads, rate of 65. Impression normal sinus rhythm interpreted by myself I think arrhythmia is unlikely. EKG shows normal sinus rhythm with no interval abnormalities such as QT prolongation or WPW. There are no findings to suggest Brugada syndrome. Cardiac monitoring in the emergency department reveals no tachycardic or bradycardic dysrhythmia. Hypertrophic cardiomyopathy was considered but there are no clear historical elements pointing toward this. EKG is not suggestive. The QRS voltage is not extremely large and there are no suggestive Q waves. The labs revealed hyperglycemia with DKA. Elevated troponin ABG pH was 7 Imaging studies: Patient: АЛКЕСАНДР ALLEN (Male) : 64 Status: ER Date: 05/09/22 00:44 Room #: History: ARF, DKA, ABD PAIN Slices: 777 Priors: Tech: Naldo [place] @ [phone] Exams: CT ABDOMEN & PELVIS Without Contrast Contrast: Accession Numbers: [id number] Referring Physician: REFERRED SELF Preliminary Findings Only See Final Report For Complete Findings CT ABDOMEN & PELVIS Without Contrast: No bowel obstruction or inflammation. Negative for diverticulitis or colitis. The cecum is dilated with gas to approximately 8.5 cm x 12 cm., Uncertain cause. No free intraperitoneal air or ascites. No acute abnormalities of the liver, spleen, pancreas, adrenal glands. No calcified gallstones. No urinary tract obstruction. Osseous structures are intact. Interstitial groundglass type infiltrate is seen at the left lung base anteriorly. Milder peripheral infiltrates are seen in the lateral and posterior aspects of the lung bases. At least some of these infiltrates were present in January 2022. Nevertheless, evaluate for pneumonia. Radiologist: Florencio Shaffer MD Patient:АЛЕКСАНДР GOMES (Male) : 64 Status: ER Date: 05/09/22 00:45 Room #: History: AMS Slices: 66 Priors: Tech: HennakatieNaldo @ [phone] Exams: CT HEAD Contrast: Accession Numbers: [id number] Referring Physician: REFERRED SELF Preliminary Findings Only See Final Report For Complete Findings CT HEAD: No acute intracranial abnormality. No hemorrhage. No visible infarct or mass. Osseous structures are intact. Radiologist: Florencio Shaffer MD Given the above diagnostic work-up and treatment, this episode appears to be consistent with DKA, Acute kidney injury, hypothermia and possible sepsis and NSTEMI. Further treatment will be required. Patient was reassessed multiple times. 2 lines were emergently placed. Placed in the bear hugger. Patient was given insulin, fluids and antibiotics. Medicine was consulted. He will be admitted to the unit. Patient's vital signs did improve. Blood sugar improved.Imaging was reviewed.Results reviewed with family. Consultation: A consultation was placed with the hospitalist. The case was discussed and diagnostics were reviewed. The patient was evaluated in the ER for further treatment. The chart was completed utilizing [employer] voice recognition software. Grammatical errors, random word insertions, pronoun errors, and incomplete s entences are an occassional consequence of this system due to software limitations, ambient noise, and hardware issues. Any formal questions or concerns about the content, text, or information contained within the body of this dictation should be directly addressed to the physician machine operator assistant for cl arification. Impression & Plan DKA (diabetic ketoacidosis), Altered mental status, OMARI (acute kidney injury), Hypothermia Discharge Plan Visit Data Chief Complaint: Confusion Stated Complaint: AMS, Hyperglycemia ED Provider: Angelic Vargas ED Midlevel Provider: Priscila Taveras Discharge Problem: DKA (diabetic ketoacidosis), Altered mental status, OMARI (acute kidney injury), Hypothermia Patient Disposition: Admitted As Inpatient Condition: Critical Discharge Instructions Interventions: ED Discharge Assessment Last Done: 05/09/22 02:54
[2022-05-08 23:37] LABS: iSTAT Arterial Blood Gas HCO3 6 meg/L (19-24); iSTAT Arterial Blood Gas pCO2 23 mmHg (35-46); iSTAT Arterial Blood Gas pH 7.06 (7.35-7.45); iSTAT Arterial Blood Gas pO2 118 mmHg (80-95); iSTAT Carbon Dioxide 7 mmol/L (24-31); iSTAT Hematocrit 49 % (42-52); iSTAT Hemoglobin 16.7 g/dl (14.0-18.0); iSTAT Potassium 6.1 mmol/L (3.3-5.0); iSTAT Sodium 126 mmol/L (135-144)
[2022-05-08 23:38] LABS: Hematocrit (blood only) 55.2 % (40.1-51.0); Hemoglobin 17.2 g/dl (14.0-18.0); Mean Corpuscular Hemoglobin 31.7 pg (25.0-34.0); Mean Corpuscular Hgb Conc 31.2 g/dL (32.0-36.0); Mean Corpuscular Volume 101.8 fL (80.0-100.0); Mean Platelet Volume 12.6 fL (9.4-12.4); Platelet Count 176 K/uL (130-400); RDW Coefficient of Variation 14.3 % (11.5-14.5); Red Blood Count 5.42 M/uL (4.63-6.08); White Blood Count 13.94 K/ul (4.8-10.8)
[2022-05-08] MEDS ORDERED: LACTATED RINGER'S 1,000 ML IV ONE (23:52)
[2022-05-09] LABS: Basophils # (auto) 0.13 K/uL (0-0.2); Basophils % (auto) 0.9 %; Eosinophils # (auto) 0.01 K/uL (0-0.50); Eosinophils % (auto) 0.1 %; Immature Granulocytes # (auto) 0.25 K/uL (0.00-0.02); Immature Granulocytes % (auto) 1.8 %; Lymphocytes # (auto) 1.43 K/uL (1.2-3.4); Lymphocytes % (auto) 10.3 %; Monocytes # (auto) 1.42 K/uL (0.24-0.82); Monocytes % (auto) 10.2 %; Neutrophils % (auto) 76.7 %
[2022-05-09 00:01] LABS: iSTAT Blood Urea Nitrogen 113 mg/dl (7-18); iSTAT Carbon Dioxide 10 mmol/L (24-31); iSTAT Chloride 100 mmol/L (101-112); iSTAT Creatinine 4.3 mg/dl (0.6-1.3); iSTAT Glucose > 700 mg/dl (70-99); iSTAT Hematocrit 48 % (42-52); iSTAT Hemoglobin 16.3 g/dl (14.0-18.0); iSTAT Ionized Calcium 1.15 mmol/l (1.12-1.32); iSTAT Potassium 6.3 mmol/L (3.3-5.0); iSTAT Sodium 128 mmol/L (135-144)
[2022-05-09 00:22] LABS: Alanine Aminotransferase 39 U/L (7-52); Albumin Level 3.9 gm/dl (3.4-5.0); Alkaline Phosphatase 179 U/L (34-104); Anion Gap 32 (3-11); Aspartate Aminotransferase 20 U/L (13-39); BUN Creatinine Ratio 24.6 (10-20); Bilirubin,Total 0.4 mg/dl (0.2-1.0); Blood Urea Nitrogen 112 mg/dl (6-23); Calcium 9.5 mg/dl (8.5-10.1); Carbon Dioxide 7 mmol/L (21-32); Chloride 87 mmol/L (98-107); Creatine Kinase 326 U/L (30-223); Creatinine Clr Calc Pharmacy 15.5 ml/min; Est GFR (African American) 15.1 ml/min; Glucose 1368 mg/dl (70-99(Fasting)); Magnesium 4.2 mg/dl (1.7-2.4); Potassium 6.9 mmol/L (3.5-5.1); Sodium 126 mmol/L (136-145); Total Protein 7.4 gm/dl (6.0-8.3); Troponin I High Sensitivity 99.7 pg/ml (0-20)
[2022-05-09] MEDS ORDERED: GLUCAGON FOR INJ 1 MG VIAL SQ PRN (00:27)
[2022-05-09] MEDS ORDERED: STAT INSULIN DRIP STA (00:27)
[2022-05-09] MEDS ORDERED: GLUCOSE 10 TAB/TUBE PO PRN ×2 (00:27→04:00)
[2022-05-09] MEDS ORDERED: DEXTROSE 50% 50 ML SYRINGE IV PRN ×2 (00:27→04:00)
[2022-05-09] MEDS ORDERED: GLUCOSE 40% GEL 15 GM TUBE PO PRN ×2 (00:27→04:00)
[2022-05-09] MEDS ORDERED: DKA GOAL RANGE 150-250 mg/dl ONE ×2 (00:27→03:33)
[2022-05-09] MEDS ORDERED: CARBOHYDRATES FOR HYPOGLYCEMIA PO PRN ×2 (00:27→04:00)
[2022-05-09] MEDS ORDERED: CALCIUM GLUCONATE 10% 1,000 MG in DEXTROSE 5% 50 ML IV STA (00:46)
[2022-05-09] MEDS ORDERED: STAT IV STA (00:46)
[2022-05-09] MEDS ORDERED: SODIUM BICARBONATE 8.4% 150 MEQ in DEXTROSE 5% 1,000 ML IV STA (00:48)
[2022-05-09] MEDS: SODIUM CHLORIDE 0.9% 1000ML 1,000 ML IV SCH ×2 (01:06)
[2022-05-09] MEDS ORDERED: NovoLIN-R BOLUS FROM BAG IV ONE (01:15)
[2022-05-09 01:52] LABS: Adenovirus PCR Not Detected (NotDetected); Bordetella parapertussis PCR Not Detected (NotDetected); Bordetella pertussis PCR Not Detected (NotDetected); Chlamydia pneumoniae PCR Not Detected (NotDetected); Coronavirus 229E PCR Not Detected (NotDetected); Coronavirus CoV-2 (COVID19)PCR Not Detected (NotDetected); Coronavirus HKU1 PCR Not Detected (NotDetected); Coronavirus NL63 PCR Not Detected (NotDetected); Coronavirus OC43PCR Not Detected (NotDetected); Human Metapneumovirus PCR Not Detected (NotDetected); Influenza A PCR Not Detected (NotDetected); Influenza B PCR Not Detected (NotDetected); Mycoplasma pneumoniae PCR Not Detected (NotDetected); Parainfluenza Virus 1 PCR Not Detected (NotDetected); Parainfluenza Virus 2 PCR Not Detected (NotDetected); Parainfluenza Virus 3 PCR Not Detected (NotDetected); Parainfluenza Virus 4 PCR Not Detected (NotDetected); Respiratory Syncytial VirusPCR Not Detected (NotDetected); Rhinovirus/Enterovirus PCR Not Detected (NotDetected)
[2022-05-09] MEDS: INSULIN REGULAR 250 UNITS in SODIUM CHLORIDE 0.9% 247.5 ML IV SCH (01:58)
[2022-05-09 02:12] LABS: Appearance Urine Clear (Clear); Bacteria Urine Automated Negative (Negative); Bilirubin Urine Negative (Negative); Blood Urine 2+ (Negative); Color Urine Yellow; Epithelial Cell Urine Auto 20-30 /lpf (0-5); Glucose Urine UA 3+ (Negative); Ketones Urine 1+ (Negative); Leukocyte Esterase Urine Negative (Negative); Nitrite Urine Negative (Negative); Protein Urine 2+ (Negative); Specific Gravity Urine 1.022 (1.000-1.030); Urobilinogen Urine Negative (Negative)
[2022-05-09 02:15] LABS: BUN Creatinine Ratio 27.2 (10-20); Bilirubin Direct 0.1 mg/dl (0-0.2); Creatinine Clr Calc Pharmacy 18.1 ml/min; Est GFR (African American) 18.2 ml/min; Est GFR (Non-African American) 15.7 ml/min; Potassium 5.9 mmol/L (3.5-5.1)
--- NOTE | 2022-05-09 02:50 | Critical Care Consultation ---
Date of Consultation May 09, 2022 Assessment & Plan (1) DKA (diabetic ketoacidosis): (2) Aortic stenosis: (3) Acute kidney injury superimposed on chronic kidney disease: (4) Hypertension: (5) Elevated troponin: (6) Hyperkalemia: (7) Gastroparesis: Plan Reason Critically Ill: 62 YOM brought to [facility] for being found down at home noted to be in DKA. Further findings of dilated cecum and stomach as well as elevated HScTNI, [id number], started on empiric Zosyn for elevated PCT and DKA. Neuro - Encephalopathy, HX of TIA CAM ICU: Negative - Metabolic encephalopathy multifactorial with elevated BUN and DKA- improving from admission per nursing- follow - CT head negative for acute process at this time - Continue DAPT for CVA/TIA Cardiac - Elevated HScTNI, Aortic Stenosis, HTN, LICA intracranial supraclinoid aneurysm - ECG obtained on admission noted for peaked t waves- will reassess when potassium is normalized - continue to trend HScTNI and ECG- likely demand at this time but follow - ECHO in am eval for any RWMA and Aortic Valve - is possible that patient passed out from loss of preload secondary to dehydration with elevated glucose - Clarify his follow up with Vascular NSGY regarding above aneurysm when medically stable - HOLD VALENTIN until renal function improves - HOLD BB or convert to tartrate until renal function improves Respiratory - COPD - Patient is [facility] so all notes not available at time of admission there is some smattering of possible ILD noted - Continue home inhalers GI - Dilated Cecum - Likely secondary to gastroparesis with severely elevated glucose and elevated BUN- GI Consulted - if he continues to have vomiting will place NGT for decompression - lactate normal and without pneumatosis noted doubt ischemia RENAL/LYTES - ARF- nonoliguric, hyperkalemia, DKA, Hypermanganesemia, - ARF on CKD- continue volume resuscitation with DKA- he is currently making urine and improving following hydration - UA with 2+ protein and 2+ blood- nephrology consult - kaliuresis if needed for hyperkalemia- isotonic HCo3 infusion as well as insulin infusion - avoid further NSAID/Narcotics - renal dose medications - Metabolic Acidosis with AGAP- 25- component of non-gap and gap acidosis- elevated BUN and DKA - mild elevation in CK- IVF as above - Place Roman for accurate PERLITA and rule out retention ENDO - DMII with DKA - as above- insulin infusion, volume replacement, electrolyte monitoring - PH, BMP q4 hours - Follow gap closure and transition when appropriate HEME - NO acute needs at this time - follow HGB levels with volume replacement ID - Leukocytosis, - sources at this time is abdomen or pulmonary - CXR appears consistent with previous - continue renal dose zosyn- await urine and blood culture LINES/IV ACCESS - PIV, Roman Continue use of these lines DVT PROPHYLAXIS - SCDS, Heparin 5000 units subq BID DISPO: ICU I have personally spent 45 minutes of critical care time in the direct management of this patient. This is a life/limb threatening event. This includes time spent evaluating patient, direct bedside care, chart review, placing orders, interpretation of diagnostic studies, discussion with consultants, patient, and family members, as well as other required patient management activities. This time is exclusive of all separately billable procedures, and separate from and in addition to any other critical care service time. Thank you for allowing us to participate in the care of this patient. Please re opal to my attending physician's documentation for any further recommendations. Supervising Physician Co-Signing Physician Notes Seen and examined. Discussed with CC DAMASO and on MDR. See my addendum from today. History of Present Illness Reason for Consultation: DKA Requesting Physician: DR. Alexander Attending Physician: Dr. Alexander History of Present Illness 62 YOM with medical problems of: DMII (on insulin), DKA, COPD, Moderate Aortic Stenosis, HTN, HLD, TIA (on DAPT), saccular aneurysm of LICA. Patient was brought in to the EMD today by family after finding patient down and confused at home. He was noted to hypothermic in the EMD, he had routine labs performed to include blood cultures and HScTNI. Patient was found to be acidotic, with low HCO3 and severely elevated blood glucose, potassium and elevation of his BUN, [employer], and PCT level. Patient received 4L of crystalloid in the EMD, insulin infusion, isotonic HCO3 infusion initiated. He was straight catheterized for 1L of urine, his repeat labs show some improvement in his renal function and potassium. HCO3 8. Patient is confused, but this has improved since above therapy initiated per the RN at bedside. He mainly complains of LLQ abdominal pain, nausea and vomiting. He was started on Zosyn. He had a CXR, CT head, and CT of abdomen and Pelvis completed, this was reviewed and noted for enlarged cecum and stomach, CT head negative for acute process and CXR with chronic changes. COVID and respiratory BioFIRE on admission is: NEGATIVE Allergies Allergy/AdvReac Type Severity Reaction Status Date / Time erythromycin base Allergy Mild Abdominal Verified 05/09/22 01:01 Pain Home Medications Medication Instructions Recorded Confirmed Type metformin 1,000 mg tablet 1,000 mg PO BIDM 03/11/19 05/09/22 History omeprazole 20 mg capsule,delayed 20 mg PO DAILYBB 03/11/19 05/09/22 History release insulin aspart U-100 100 unit/mL See Rx Instructions .Route .COMPLEX 06/17/20 05/09/22 History (3 mL) subcutaneous pen (Novolog Flexpen U-100 Insulin aspart) multivitamin 1 tab PO QAM 06/17/20 05/09/22 History metoprolol succinate 25 mg 25 mg PO DAILY 09/19/20 05/09/22 History tablet,extended release 24 hr acetaminophen 500 mg tablet 500 mg PO Q6H PRN Pain 08/01/21 05/09/22 History (Acetaminophen Extra Strength) insulin glargine 100 unit/mL (3 36 unit subcut HS 08/01/21 05/09/22 History mL) subcutaneous pen (Lantus Solostar U-100 Insulin) albuterol sulfate 90 mcg/actuation 2 puff inhalation Q4 PRN Shortness 12/01/21 05/09/22 History aerosol inhaler (Ventolin HFA) Of Breath Or Wheezing calcium carbonate 200 mg calcium 200 mg PO DAILY PRN Gi Upset 12/01/21 05/09/22 History (500 mg) chewable tablet (Calcium Antacid) losartan 50 mg tablet 50 mg PO DAILY 12/01/21 05/09/22 History clopidogrel 75 mg tablet 75 mg PO QAM #30 tabs 12/05/21 05/09/22 Rx oxycodone 5 mg tablet 5 mg PO Q4H PRN pain #5 tabs 12/05/21 05/09/22 Rx atorvastatin 80 mg tablet 80 mg PO QAM 05/09/22 05/09/22 History cyclobenzaprine 5 mg tablet 5 mg PO BID PRN Muscle Spasm 05/09/22 05/09/22 History multivitamin 1 tab PO QAM 05/09/22 05/09/22 History naproxen 500 mg tablet 500 mg PO BID PRN Pain 05/09/22 05/09/22 History tiotropium bromide 18 mcg capsule 1 cap inhalation DAILY 05/09/22 05/09/22 History with inhalation device (Spiriva with HandiHaler) Patient History Medical History Carpal tunnel syndrome Diabetes DKA (diabetic ketoacidoses) Hyperkalemia Hyperlipidemia Hypertension Irritable bowel syndrome Tobacco use Surgical History History of carpal tunnel surgery History of foot surgery Family History Other Diabetes Heart disease Social History Smoking Status: Current every day smoker Tobacco Type: Cigarettes Cigarettes Per Day: 5; Second Hand Exposure: Yes; Hx Alcohol Use: No Hx Substance Use: No Preferred Language: Indonesian Communication Ability: Effective Resolution Manager Required: No Beliefs That Will Affect Care: None marital status: Current Living Situation: Alone Other Information That Helps Us Care for You: No Feels Safe at Home: Yes Safety Concerns: Feels Safe At This Time Assistive Devices: Glasses Review of Systems Review of Systems: ROS limited by patient confusion + for n/v, abdominal pain LLQ, frequent urination, body aches Physical Exam Physical Exam: PHYSICAL EXAM: General: awake, alert, encephalopathic Head: Normocephalic, atraumatic ENT: PERRLA, EOMI, no pharyngeal exudate, mucous membranes dry Neuro: AAO x 3, speech clear and appropriate, strength intact bilaterally 5/5, sensation intact and equal all extremities and dermatomes, focal deficit Chest: equal rise and fall of the chest, no accessory muscle use,, scattered fine crackles with end expiratory wheeze Cardiac: Regular rate and rhythm, telemetry reviewed, skin warm dry, cap refill <3 seconds, peripheral pusles +2 no JVD, no murmur, Grade III systolic murmur GI: NABS x 4 quadrants, soft, tender to palpation, no rebound, guarding or tenderness : Roman placed Extremities: Normal inspection, no peripheral edema or erythema, calfs nontender to palpation Psych: Normal mood and affect Skin: no rash or erythema Results & Data Results & Data ([facility]) Vital Signs (Past 12 Hours) Vital Signs Temp Pulse Resp BP Pulse Ox O2 Del Method 05/09/22 01:29 32.1 C L 05/09/22 00:50 71 18 99 05/09/22 00:50 140/64 05/09/22 00:40 72 20 99 05/09/22 00:40 151/64 H 05/09/22 00:33 72 20 99 05/09/22 00:33 157/59 H 05/09/22 00:11 70 16 99 05/09/22 00:10 139/62 05/09/22 00:09 70 26 H 99 05/09/22 00:00 69 22 99 05/09/22 00:00 124/54 L 05/08/22 23:50 69 19 99 05/08/22 23:50 139/62 05/08/22 23:40 67 18 99 05/08/22 23:40 124/56 L 05/08/22 23:30 66 17 99 05/08/22 23:30 141/56 H 05/08/22 23:21 131 H 20 98 05/08/22 23:21 118/63 05/08/22 23:20 130 H 26 H 97 05/08/22 23:10 131 H 17 99 05/08/22 23:10 117/57 L 05/08/22 23:03 131 H 24 05/08/22 23:03 96/48 L 05/08/22 23:01 70 05/09/22 00:55 72 18 99 Room Air 05/08/22 23:43 31.1 C L 132 H 20 116/65 99 Room Air Laboratory Results Abnormal lab results 05/08/22 05/08/22 05/08/22 Range/Units 23:23 23:26 23:26 WBC 13.94 H (4.8-10.8) K/ul Hct 55.2 H (40.1-51.0) % MCV 101.8 H (80.0-100.0) fL MCHC 31.2 L (32.0-36.0) g/dL RDW Std Deviation 53.0 H (36.4-46.3) fL MPV 12.6 H (9.4-12.4) fL Neut # (Auto) 10.70 H (1.4-6.5) K/uL [place] # (Auto) 1.42 H (0.24-0.82) K/uL Immature Gran # (Auto) 0.25 H (0.00-0.02) K/uL POC pH 7.06 L* (7.35-7.45) POC pCO2 23 L (35-46) mmHg POC pO2 118 H (80-95) mmHg POC HCO3 6 L (19-24) joseph/L POC Total CO2 7 L* (24-31) mmol/L POC Base Excess -24.0 L (-9-1.8) joseph/L POC ABG O2 Sat 97.0 H (90-95) % POC Sodium 126 L (135-144) mmol/L Sodium 126 L (136-145) mmol/L POC Potassium 6.1 H* (3.3-5.0) mmol/L Potassium 6.9 H* (3.5-5.1) mmol/L POC Chloride (101-112) mmol/L Chloride 87 L (98-107) mmol/L Carbon Dioxide 7 L* (21-32) mmol/L Anion Gap 32 H (3-11) POC BUN (7-18) mg/dl BUN 112 H (6-23) mg/dl Creatinine 4.55 H* (0.6-1.4) mg/dl POC Creatinine (0.6-1.3) mg/dl BUN/Creatinine Ratio 24.6 H (10-20) Glucose 1368 H* (70-99(Fasting)) mg/dl POC Glucose (70-99) mg/dl POC Glucose (other) (70-99) mg/dl Calcium (8.5-10.1) mg/dl Magnesium 4.2 H (1.7-2.4) mg/dl Alkaline Phosphatase 179 H (34-104) U/L Total Creatine Kinase 326 H (30-223) U/L Troponin I High Sens 99.7 H* D (0-20) pg/ml Procalcitonin (0-0.5) ng/ml Urine Protein (Negative) Urine Glucose (UA) (Negative) Urine Ketones (Negative) Urine Blood (Negative) Urine RBC (Auto) (0-4) /hpf U Hyaline Cast (Auto) (0-5) /lpf U Epithel Cells (Auto) (0-5) /lpf 05/08/22 05/08/22 05/08/22 Range/Units 23:26 23:27 23:44 WBC (4.8-10.8) K/ul Hct (40.1-51.0) % MCV (80.0-100.0) fL MCHC (32.0-36.0) g/dL RDW Std Deviation (36.4-46.3) fL MPV (9.4-12.4) fL Neut # (Auto) (1.4-6.5) K/uL [place] # (Auto) (0.24-0.82) K/uL Immature Gran # (Auto) (0.00-0.02) K/uL POC pH (7.35-7.45) POC pCO2 (35-46) mmHg POC pO2 (80-95) mmHg POC HCO3 (19-24) joseph/L POC Total CO2 10 L (24-31) mmol/L POC Base Excess (-9-1.8) joseph/L POC ABG O2 Sat (90-95) % POC Sodium 128 L (135-144) mmol/L Sodium (136-145) mmol/L POC Potassium 6.3 H* (3.3-5.0) mmol/L Potassium (3.5-5.1) mmol/L POC Chloride 100 L (101-112) mmol/L Chloride (98-107) mmol/L Carbon Dioxide (21-32) mmol/L Anion Gap (3-11) POC BUN 113 H* (7-18) mg/dl BUN (6-23) mg/dl Creatinine (0.6-1.4) mg/dl POC Creatinine 4.3 H (0.6-1.3) mg/dl BUN/Creatinine Ratio (10-20) Glucose (70-99(Fasting)) mg/dl POC Glucose > 600 H* (70-99) mg/dl POC Glucose (other) > 700 H* (70-99) mg/dl Calcium (8.5-10.1) mg/dl Magnesium (1.7-2.4) mg/dl Alkaline Phosphatase (34-104) U/L Total Creatine Kinase (30-223) U/L Troponin I High Sens (0-20) pg/ml Procalcitonin 3.08 H (0-0.5) ng/ml Urine Protein (Negative) Urine Glucose (UA) (Negative) Urine Ketones (Negative) Urine Blood (Negative) Urine RBC (Auto) (0-4) /hpf U Hyaline Cast (Auto) (0-5) /lpf U Epithel Cells (Auto) (0-5) /lpf 05/09/22 05/09/22 05/09/22 Range/Units 01:27 01:27 01:36 WBC (4.8-10.8) K/ul Hct (40.1-51.0) % MCV (80.0-100.0) fL MCHC (32.0-36.0) g/dL RDW Std Deviation (36.4-46.3) fL MPV (9.4-12.4) fL Neut # (Auto) (1.4-6.5) K/uL [place] # (Auto) (0.24-0.82) K/uL Immature Gran # (Auto) (0.00-0.02) K/uL POC pH (7.35-7.45) POC pCO2 (35-46) mmHg POC pO2 (80-95) mmHg POC HCO3 (19-24) joseph/L POC Total CO2 (24-31) mmol/L POC Base Excess (-9-1.8) joseph/L POC ABG O2 Sat (90-95) % POC Sodium (135-144) mmol/L Sodium 131 L (136-145) mmol/L POC Potassium (3.3-5.0) mmol/L Potassium 5.9 H (3.5-5.1) mmol/L POC Chloride (101-112) mmol/L Chloride (98-107) mmol/L Carbon Dioxide 8 L* (21-32) mmol/L Anion Gap 25 H (3-11) POC BUN (7-18) mg/dl BUN 106 H (6-23) mg/dl Creatinine 3.90 H D (0.6-1.4) mg/dl POC Creatinine (0.6-1.3) mg/dl BUN/Creatinine Ratio 27.2 H (10-20) Glucose 1127 H* (70-99(Fasting)) mg/dl POC Glucose (70-99) mg/dl POC Glucose (other) (70-99) mg/dl Calcium 8.0 L (8.5-10.1) mg/dl Magnesium (1.7-2.4) mg/dl Alkaline Phosphatase (34-104) U/L Total Creatine Kinase (30-223) U/L Troponin I High Sens 101.1 H* (0-20) pg/ml Procalcitonin (0-0.5) ng/ml Urine Protein 2+ H (Negative) Urine Glucose (UA) 3+ H (Negative) Urine Ketones 1+ H (Negative) Urine Blood 2+ H (Negative) Urine RBC (Auto) 5-10 H (0-4) /hpf U Hyaline Cast (Auto) 5-10 H (0-5) /lpf U Epithel Cells (Auto) 20-30 H (0-5) /lpf 05/09/22 Range/Units 01:56 WBC (4.8-10.8) K/ul Hct (40.1-51.0) % MCV (80.0-100.0) fL MCHC (32.0-36.0) g/dL RDW Std Deviation (36.4-46.3) fL MPV (9.4-12.4) fL Neut # (Auto) (1.4-6.5) K/uL [place] # (Auto) (0.24-0.82) K/uL Immature Gran # (Auto) (0.00-0.02) K/uL POC pH (7.35-7.45) POC pCO2 (35-46) mmHg POC pO2 (80-95) mmHg POC HCO3 (19-24) joseph/L POC Total CO2 (24-31) mmol/L POC Base Excess (-9-1.8) joseph/L POC ABG O2 Sat (90-95) % POC Sodium (135-144) mmol/L Sodium (136-145) mmol/L POC Potassium (3.3-5.0) mmol/L Potassium (3.5-5.1) mmol/L POC Chloride (101-112) mmol/L Chloride (98-107) mmol/L Carbon Dioxide (21-32) mmol/L Anion Gap (3-11) POC BUN (7-18) mg/dl BUN (6-23) mg/dl Creatinine (0.6-1.4) mg/dl POC Creatinine (0.6-1.3) mg/dl BUN/Creatinine Ratio (10-20) Glucose (70-99(Fasting)) mg/dl POC Glucose > 600 H* (70-99) mg/dl POC Glucose (other) (70-99) mg/dl Calcium (8.5-10.1) mg/dl Magnesium (1.7-2.4) mg/dl Alkaline Phosphatase (34-104) U/L Total Creatine Kinase (30-223) U/L Troponin I High Sens (0-20) pg/ml Procalcitonin (0-0.5) ng/ml Urine Protein (Negative) Urine Glucose (UA) (Negative) Urine Ketones (Negative) Urine Blood (Negative) Urine RBC (Auto) (0-4) /hpf U Hyaline Cast (Auto) (0-5) /lpf U Epithel Cells (Auto) (0-5) /lpf Medications Administered Home Medications metformin 1,000 mg tablet 1,000 mg PO BIDM 03/11/19 [History Confirmed 05/09/22] omeprazole 20 mg capsule,delayed release 20 mg PO DAILYBB 03/11/19 [History Confirmed 05/09/22] insulin aspart U-100 100 unit/mL (3 mL) subcutaneous pen (Novolog Flexpen U-100 Insulin aspart) See Rx Instructions .Route .COMPLEX 06/17/20 [History Confirmed 05/09/22] multivitamin 1 tab PO QAM 06/17/20 [History Confirmed 05/09/22] metoprolol succinate 25 mg tablet,extended release 24 hr 25 mg PO DAILY 09/19/20 [History Confirmed 05/09/22] acetaminophen 500 mg tablet (Acetaminophen Extra Strength) 500 mg PO Q6H PRN Pain 08/01/21 [History Confirmed 05/09/22] insulin glargine 100 unit/mL (3 mL) subcutaneous pen (Lantus Solostar U-100 Insulin) 36 unit subcut HS 08/01/21 [History Confirmed 05/09/22] albuterol sulfate 90 mcg/actuation aerosol inhaler (Ventolin HFA) 2 puff inhalation Q4 PRN Shortness Of Breath Or Wheezing 12/01/21 [History Confirmed 05/09/22] calcium carbonate 200 mg calcium (500 mg) chewable tablet (Calcium Antacid) 200 mg PO DAILY PRN Gi Upset 12/01/21 [History Confirmed 05/09/22] losartan 50 mg tablet 50 mg PO DAILY 12/01/21 [History Confirmed 05/09/22] clopidogrel 75 mg tablet 75 mg PO QAM #30 tabs 12/05/21 [Rx Confirmed 05/09/22] oxycodone 5 mg tablet 5 mg PO Q4H PRN pain #5 tabs 12/05/21 [Rx Confirmed 05/09/22] atorvastatin 80 mg tablet 80 mg PO QAM 05/09/22 [History Confirmed 05/09/22] cyclobenzaprine 5 mg tablet 5 mg PO BID PRN Muscle Spasm 05/09/22 [History Confirmed 05/09/22] multivitamin 1 tab PO QAM 05/09/22 [History Confirmed 05/09/22] naproxen 500 mg tablet 500 mg PO BID PRN Pain 05/09/22 [History Confirmed 05/09/22] tiotropium bromide 18 mcg capsule with inhalation device (Spiriva with HandiHaler) 1 cap inhalation DAILY 05/09/22 [History Confirmed 05/09/22] Active Medications Dextrose (Dextrose 50% 50 Ml Syringe) 25 - 50 ml IV UD PRN; Protocol PRN Reason: Hypoglycemia Protocol Stop: 06/08/22 00:26 Glucagon (Glucagon For Inj 1 Mg Vial) 1 mg SQ UD PRN; Protocol PRN Reason: Hypoglycemia Protocol Stop: 06/08/22 00:26 Glucose (Glucose 40% Gel 15 Gm Tube) 15 - 30 gm PO UD PRN; Protocol PRN Reason: Hypoglycemia Protocol Stop: 06/08/22 00:26 Glucose (Glucose 10 Tab/Tube) 4 - 8 tab PO UD PRN; Protocol PRN Reason: Hypoglycemia Treatment Stop: 06/08/22 00:26 Insulin Human Regular 250 (units/ Sodium Chloride) 250 mls @ 6.4 mls/hr IV .Q24H NELI; Protocol Stop: 06/08/22 00:29 Last Admin: 05/09/22 01:58 Dose: 6.4 units/hr, 6.4 mls/hr Sodium Bicarbonate 150 meq/ (Dextrose) 1,150 mls @ 290 mls/hr IV .Q3H58M STA Stop: 05/09/22 04:45 Last Admin: 05/09/22 02:06 Dose: 290 mls/hr Insulin Aspart (Insulin Aspart Per Unit) 0 units SC ACHS NELI Stop: 06/08/22 07:29 Miscellaneous (Carbohydrates For Hypoglycemia ) 15 - 30 gm PO UD PRN PRN Reason: Hypoglycemia Protocol Stop: 06/08/22 00:26 ECG Additional Comments: Normal sinus rhythm Possible Left atrial enlargement Possible Anterior infarct (cited on or before 06-AUG-2013) Abnormal ECG When compared with ECG of 23-MAR-2022 11:38, Vent. rate has decreased BY 45 BPM QRS axis Shifted right ST elevation now present in Inferior leads Coding Level of Care Code Critical Care 1st 30-74 mins Diagnoses DKA (diabetic ketoacidosis) E11.10 Diabetes mellitus complication detail: without coma Diabetes mellitus type: type 2 Aortic stenosis I35.0 Acute kidney injury superimposed on chronic kidney disease N17.9; N18.9 Hypertension I10 Elevated troponin R77.8 Hyperkalemia E87.5 Gastroparesis K31.84 (1) DKA (diabetic ketoacidosis) Diabetes mellitus complication detail: without coma Diabetes mellitus type: type 2 Qualified Code(s): E11.10 - Type 2 diabetes mellitus with ketoacidosis without coma
[2022-05-09] MEDS ORDERED: SODIUM BICARBONATE 8.4% 150 MEQ in WATER, STERILE 1,000 ML IV STA (03:05)
[2022-05-09] MEDS ORDERED: ICU Protocol for HYPERglycemia PRN (03:33)
[2022-05-09] MEDS ORDERED: SODIUM CHLORIDE 0.9% 1000ML 1,000 ML IV SCH (03:33)
[2022-05-09] MEDS ORDERED: ALBUTEROL HFA 8 GM INHALER INH PRN (03:33)
[2022-05-09] MEDS ORDERED: PHARMACY GLYCEMIC MGMT CONSULT PRN (03:33)
[2022-05-09] MEDS ORDERED: STAT IV Infusion **Titration per Protocol STA (03:33)
[2022-05-09] MEDS ORDERED: INSULIN REGULAR 250 UNITS in SODIUM CHLORIDE 0.9% 247.5 ML IV SCH (03:33)
[2022-05-09] MEDS ORDERED: GLUCAGON FOR INJ 1 MG VIAL IM PRN (04:00)
[2022-05-09] MEDS ORDERED: DOXYCYCLINE HYCLATE 100 MG in DEXTROSE 5% 100 ML IV SCH (04:00)
[2022-05-09] MEDS ORDERED: PENDING D5 1/2NS+20mEq KCL IVF SCH (04:00)
--- NOTE | 2022-05-09 04:13 | History and Physical Report ---
DATE OF ADMISSION: 05/09/2022. CHIEF COMPLAINT: Confusion, DKA, hypothermia. HISTORY OF PRESENT ILLNESS: A 62-year-old male with past medical history significant for type 2 diabetes, uncontrolled diabetes, hyperlipidemia, history of acute pancreatitis, history of interstitial lung disease, history of emphysema, pulmonary nodules, hypertension, moderate aortic valve stenosis, history of TIA, GERD, chronic kidney disease, history of alcoholism, who lives at home with his son. He was brought in confused and found to be in DKA. As per the son, a couple of days ago, the patient had some vomiting. Yesterday, he was not feeling that great, and son went to work in the morning and when he came in around 10:00 in the night, he found him confused, naked on the floor, and he called EMS and brought in here. The patient is currently only alert and awake, seems lethargic, can tell his name, knows that he is in the hospital, but could not get much history from the patient. He says he has some abdominal pain. Denies any chest pain or headache. As per son, no recent fever, cough, or any other symptoms. Could not get much history. The patient was 32 degrees temperature, in [facility]. White count is 13. His point of care pH was 7.06, bicarbonate is 6. His sodium was 126 when came in, repeat is 131; his potassium was 6.9 when he came in, currently 5.9. His sugars were 1300. Troponin is 100.1. Procalcitonin 3.3. BioFire is negative. CT head is okay. CT of abdomen and pelvis in the preliminary report, cecum is dilated with gas to approximately 8.5 x 12 cm, of uncertain cause. Blood pressure is okay. He received 4 L of fluids made about 1lt of urine as per nursing staff. His creatinine on presentation was 4.5, repeat is 3.9. ALLERGIES: ERYTHROMYCIN BASE. PAST MEDICAL HISTORY: As mentioned above. PAST SURGICAL HISTORY: Carpal tunnel surgery, colonoscopy, and EGD with endoscopic ultrasound. MEDICATIONS: The patient is on Tylenol 500 mg p.o. q. 6 hours p.r.n., albuterol 2 puffs inhalation q. 4 hours p.r.n., atorvastatin 80 mg p.o. a.m., calcium carbonate 200 mg p.o. daily p.r.n., Plavix 75 mg p.o. daily, cyclobenzaprine 5 mg p.o. b.i.d. p.r.n., NovoLog FlexPen as directed, Lantus SoloStar 36 units subcutaneous at bedtime, losartan 50 mg p.o. daily, metformin 1000 mg p.o. b.i.d. with meals, metoprolol succinate 25 mg p.o. daily, multivitamin 1 tablet p.o. daily, naproxen 500 mg p.o. b.i.d. p.r.n., omeprazole 20 mg p.o. daily, oxycodone 5 mg p.o. q. 4 hours p.r.n., Spiriva inhaler one capsule inhalation daily. FAMILY HISTORY: Significant for mother has aortic stenosis, Crohn's disease; father has VT and CABG; sister has mental disorder; paternal grandmother has diabetes. SOCIAL HISTORY: Currently lives with his son. Smokes half pack a day as per the records. It looks like he quit alcoholism around 2000 as per [facility]. No drug use. REVIEW OF SYSTEMS: Unobtainable at this time. PHYSICAL EXAMINATION: GENERAL: The patient is somewhat lethargic, oriented to name and place. VITAL SIGNS: Temperature 32.1, pulse 72, respiratory rate 18, blood pressure 140/64, oxygen 99% on room air. HEENT: Pupils equal, round and reactive to light. Oral mucosa dry. NECK: No JVD, no neck masses. CARDIOVASCULAR: S1 and S2 heard. Regular rate and rhythm. No murmur, no gallop. RESPIRATORY SYSTEM: Normal AP diameter. No accessory muscle use. No wheezing, no crackles. ABDOMEN: Soft, bowel sounds sluggish. Mild discomfort. No distention. CENTRAL NERVOUS SYSTEM: Alert, awake, and oriented to name and place, some confusion, lethargy. Speech, speaking in low voice. No facial droop. Moving extremities. EXTREMITIES: No edema, no erythema. LABORATORY DATA: WBC 13.9, hemoglobin 17.2, hematocrit 55.2, platelets 176. Point of care pH 7.06, pCO2 of 23, pO2 of 118, bicarbonate 6, oxygen 97%. Current sodium is 131, potassium 5.9, chloride 98, CO2 of 8, anion gap 25, BUN 106, creatinine 3.9, serum glucose 1127. Lactate 1.6, calcium 8, magnesium 4.2, total bilirubin 0.4, direct bilirubin 0.1, AST 20, ALT 39, alkaline phosphatase 179, total creatine kinase 321. Troponin I high sensitivity 101. Procalcitonin 3.08. Urinalysis, +3 glucose, +2 protein. BioFire negative. IMAGING DATA: CT of the head, preliminary report, no acute findings. CT of abdomen and pelvis, preliminary report, no bowel obstruction or inflammation, negative for diverticulitis or colitis. The cecum is dilated with gas to approximately 8.5 x 12 cm. No free intraperitoneal air or ascites. Interstitial ground-glass type infiltrates seen on the left lung base anteriorly. Milder peripheral infiltrates are seen on the lateral and posterior aspects of the lung base. Chest x-ray, no acute findings. EKG: Normal sinus rhythm at a rate of 65, possible left atrial enlargement.St changes in inferior leads ASSESSMENT AND PLAN: This is a 62-year-old male who presents with confusion, diabetic ketoacidosis, and hypothermia. 1. Diabetic ketoacidosis: Sugars are very high in the 1000s. On presentation, CO2 was 7, currently received 4 liters of fluids, started on insulin drip protocol. Closely follow the diabetic ketoacidosis protocol labs and aggressive fluids. Closely monitor in the ICU. 2. Hypothermia: Getting on Ignacio Hugger. Blood pressure is running okay. His white count is 13.9. Empirically starting on Zosyn for antibiotics. Follow the cultures. Possible pneumonia? 3. Pseudohyponatremia: Follow the labs. 4. Acute kidney injury, secondary to above: On presentation, creatinine was 4.5, currently creatinine is 3.9. The patient is making urine. Getting aggressive fluids. Will follow the labs. Consult nephro in the a.m. 5. Hyperkalemia: Potassium of 6.9 on presentation, it is 5.9 now, getting insulin and bicarbonate drip. Nephro consulted. Will follow the labs. 6. Elevated troponin, mostly from above: Will follow serial enzymes. St chnages in inferior ledss improving with repeat ekg. Mostly from metabolic abnormalities Will follow the repeat EKG. 7. Elevated procalcitonin: On antibiotics as above. 8. History of moderate aortic valve stenosis: Monitor for any volume overload. 9. Chronic kidney disease: Baseline creatinine 1, currently creatinine is 3.9. Will follow the labs. 10. Dilated Caecum on ct scan. Consulting GI. 11. Acute pancreatitis. Final reading of ct abd/pelvis showing pancreatitis and lipase elevated. Aggressive fluids, GI consulted. 10. Deep venous thrombosis prophylaxis: Heparin subcutaneously. DISPOSITION: Closely monitor in the ICU. Level 1 full code as per my discussion with the son. Job ID: [id number] MTDD
[2022-05-09 04:28] LABS: Hematocrit (blood only) 47.4 % (40.1-51.0); Hemoglobin 15.8 g/dl (14.0-18.0); Mean Corpuscular Hemoglobin 31.2 pg (25.0-34.0); Mean Corpuscular Hgb Conc 33.3 g/dL (32.0-36.0); Mean Corpuscular Volume 93.7 fL (80.0-100.0); Platelet Count 112 K/uL (130-400); RDW Standard Deviation 47.4 fL (36.4-46.3); Red Blood Count 5.06 M/uL (4.63-6.08); White Blood Count 7.86 K/ul (4.8-10.8)
[2022-05-09 04:29] LABS: Basophils # (auto) 0.04 K/uL (0-0.2); Basophils % (auto) 0.5 %; Eosinophils # (auto) 0.01 K/uL (0-0.50); Eosinophils % (auto) 0.1 %; Immature Granulocytes # (auto) 0.09 K/uL (0.00-0.02); Immature Granulocytes % (auto) 1.1 %; Lymphocytes # (auto) 0.94 K/uL (1.2-3.4); Monocytes # (auto) 0.29 K/uL (0.24-0.82); Monocytes % (auto) 3.7 %; Neutrophils # (auto) 6.49 K/uL (1.4-6.5); Neutrophils % (auto) 82.6 %
[2022-05-09 04:33] LABS: Calcium 8.6 mg/dl (8.5-10.1); Creatinine Clr Calc Pharmacy 18.5 ml/min; Est GFR (African American) 18.7 ml/min; Est GFR (Non-African American) 16.2 ml/min; Magnesium 3.3 mg/dl (1.7-2.4); Phosphorus 7.5 mg/dl (2.5-4.9); Potassium 4.2 mmol/L (3.5-5.1)
[2022-05-09] MEDS: HEPARIN SOD 5,000 UNIT/0.5 ML VIAL SQ SCH ×3 (05:27→22:07)
[2022-05-09] MEDS: POTASSIUM CHLORIDE CRTAB 20 MEQ TABCR PO STA ×2 (05:27→05:44)
[2022-05-09] MEDS ORDERED: POTASSIUM CHLORIDE / WTR 10 MEQ/100 ML PLCT IV ONE (05:48)
[2022-05-09] MEDS: PENDING 1/2NSS+20mEq KCL IVF SCH ×2 (06:22→06:24)
[2022-05-09] MEDS: LACTATED RINGER'S 1,000 ML IV SCH ×2 (06:23→11:34)
--- NOTE | 2022-05-09 06:41 | CT Scan Report ---
CT head/brain wo con CLINICAL HISTORY: 62 years-old Male with ams. Acutely altered mental status TECHNIQUE: Multiple axial CT images of the head were obtained without contrast. A dose lowering tech nique was utilized adhering to the principles of ALARA. CT DOSE: 959.77 mGy.cm COMPARISON: None. FINDINGS: No acute intracranial hemorrhage, midline shift, intracranial mass, hydrocephalus, territorial ischem ia or abnormal extra-axial collection. The calvarium is intact. Prior bilateral lens replacement. The paranasal sinuses, mastoid air cells, and middle ear cavities are clear. IMPRESSION: No acute intracranial abnormality. ACT 112: Negative or not required by law. The above report was generated using voice recognition software. It may contain grammatical, syntax o r spelling errors. Electronically signed by: Reece Catalan M.D. 05/09/2022 6:39 AM
[2022-05-09 06:44] LABS: Estimated Average Glucose 364 mg/dl; Hemoglobin A1C 14.3 % (4.5-5.6)
[2022-05-09 06:53] LABS: Troponin I High Sensitivity 141.4 pg/ml (0-20)
[2022-05-09] MEDS: INSULIN ASPART PER UNIT SC SCH ×4 (07:24→20:25)
[2022-05-09] MEDS ORDERED: INSULIN ASPART PER UNIT SC SCH (07:30)
--- NOTE | 2022-05-09 07:44 | CT Scan Report ---
CT OF THE ABDOMEN AND PELVIS WITHOUT CONTRAST CLINICAL HISTORY: Abdominal pain, AMS, ARF, DKA. COMPARISON STUDY: CT of the abdomen and pelvis March 23, 2022. TECHNIQUE: Axial images of the abdomen and pelvis were obtained without IV contrast. Images were revi ewed in the axial, sagittal, and coronal planes. Automated exposure control was utilized for the ernesto dy. A dose lowering technique was utilized adhering to the principles of ALARA. FINDINGS: Previously described nodules within the lower lungs are obscured on this exam due to respir atory motion artifact. Lower lung groundglass opacities are noted. There is also suspected underlying interstitial lung disease with mild bronchiectasis and subpleural reticulation. Evaluation of the ab domen and pelvis is suboptimal on this unenhanced exam. No pneumatosis, free air or portal venous gas is present. Unenhanced images of the liver, spleen, adrenal glands and kidneys are unremarkable. The re is no hydronephrosis. Bilateral perinephric stranding has decreased. There is suggestion of mild s tranding adjacent to the pancreas. No peripancreatic fluid collection is present. No biliary or pancr eatic ductal dilatation is identified on this exam. There is no pericholecystic infiltration. Moderat e amount of stool within the colon and rectum is present. Cecum is moderately distended. However, the re is no evidence for a bowel obstruction or volvulus. No lymphadenopathy is present. No acute fractu re or suspicious lesion within the visualized skeletal structures is identified. IMPRESSION: 1. Subtle stranding adjacent to the pancreas. This favors acute pancreatitis and could be correlated with serum lipase. This finding will be called/faxed to ordering provider at time of dictation. 2. Cecal distention without evidence for an obstruction. No volvulus. Moderate amount stool within th e colon and rectum. 3. Groundglass opacities within the lower lungs. These may be atelectatic. However, an infectious pro cess could appear similar. 4. No urinary calculi. No hydronephrosis. Distended bladder. ACT 112: Negative or not required by law. Electronically signed by: Cassius Perez M.D. 05/09/2022 7:42 AM
--- NOTE | 2022-05-09 07:51 | XRay Report ---
XR chest 1V portable supine CLINICAL HISTORY: Sepsis. COMPARISON STUDY: Chest radiograph January 13, 2022. FINDINGS: No pneumothorax or pleural effusion is present. Lower lung predominant interstitial thicken ing has minimally progressed. Mild mediastinal widening is likely due to supine technique. There is n o evidence for pulmonary edema. IMPRESSION: Slight increase in lower lung predominant interstitial thickening. This favors interstit ial lung disease. No definite consolidation. ACT 112: Negative or not required by law. Electronically signed by: Cassius Perez M.D. 05/09/2022 7:50 AM
[2022-05-09 08:35] LABS: Calcium 9.1 mg/dl (8.5-10.1); Est GFR (African American) 21.8 ml/min; Est GFR (Non-African American) 18.8 ml/min; Magnesium 3.2 mg/dl (1.7-2.4); Phosphorus 5.2 mg/dl (2.5-4.9); Potassium 4.1 mmol/L (3.5-5.1)
[2022-05-09] MEDS ORDERED: TIOTROPIUM BROMIDE 5 PUFF/90 MCG INH INH SCH (09:00)
[2022-05-09] MEDS ORDERED: PIPERACILLIN/TAZOBACTAM 3.375 GM in DEXTROSE 5% 100 ML IV SCH (09:00)
--- NOTE | 2022-05-09 09:04 | Communication Note ---
Date of Service: May 09, 2022 Patient seen and examined. EMR reviewed. Discussed with family practice resident as well as with critical care DAMASO and bedside nurse. Patient was disc ussed on multidisciplinary rounds. Patient presented with severe hyperosmolar nonketotic/DKA due to medical noncompliance. He was also found to have pancreatitis and acute renal failure. He has been volume resuscitated but likely has residual fluid deficits and so we will administer an additional 3 to 4 L of crystalloid and observe response as far as urine output, glycemic studies, laboratory values, and heart rate response. No indication for antimicrobial agents and these will be discontinued. Continue supportive care for the patient's pancreatitis. We will trend lipase. Imaging will depend on patient's clinical course. Patient presented with acute renal failure which is improving. Likely prerenal but cannot exclude potential component of ATN. Will need to follow closely. Patient remains critically ill at this point time. An additional 42 minutes of critical care time was spent in evaluation management and stabilization of this patient. Coding Level of Care Code Critical Care maray epsteint'l 30 min
[2022-05-09] MEDS ORDERED: LACTATED RINGER'S 1,000 ML IV ONE ×6 (09:05→16:00)
--- NOTE | 2022-05-09 10:22 | Pharmacy Report ---
Pharmacy Glycemic Short Note 2 - Date of Service May 09, 2022 - Glycemic Short BSG Results (Last 24 hours): 05/08/22 05/08/22 05/08/22 23:26 23:27 23:44 Glucose 1368 H* POC Glucose > 600 H* POC Glucose (other) > 700 H* 05/09/22 05/09/22 05/09/22 01:27 01:56 03:43 Glucose 1127 H* Cancelled POC Glucose > 600 H* POC Glucose (other) 05/09/22 05/09/22 05/09/22 03:43 05:34 07:52 Glucose 967 H* 793 H* 686 H* POC Glucose POC Glucose (other) OUTPATIENT ANTIDIABETIC REGIMEN: * Non-adherence likely * Lantus 36 units SC HS * Novolog 02/13/10 units TIDM with additional correctional insulin of 25 mg/dL/unit * Metformin * HbA1c 14.3% on 05/09/22 ASSESSMENT: * 62 yo M admitted with confusion 2nd mixed HHS and DKA picture. Low CO2 and pH, elevated anion gap, (indicative of DKA) plus effective osmolality >320 (indicative of HHS) * Discussed fluids at ICU rounds - would normally add in potassium to fluids at this time but given stable potassium and OMARI along with some potassium in planned 3L LR bolus, but will hold off for now with plans for provider to reassess at next lab draw. Also discussed corrected sodium being elevated with eventual need to change to a fluid with less Na content. Again, provider to reassess at next lab draw. Ongoing aggressive fluid resuscitation planned. * Discussed plan for transition of insulin drip at ICU rounds - will not transition now. However, OK to provide very low dose Lantus to help with eventual transition. * HHS and DKA will both need to be corrected / addressed prior to transition of drip and reduction of goal range - improvement in mental status hopefully back to baseline (for HHS) along with improvement in CO2, anion gap (for DKA) will both be necessary. Hopefully these will be achieved by tomorrow AM and transition can be attempted at that time PLAN FOR INPATIENT GLYCEMIC CONTROL: * Hold outpatient oral diabetes medications * Insulin drip * Goal range 250-350 mg/dL for HHS/confusion, currently running at 11 units/hr * Basal insulin * Lantus 10 units SC x1 * Bolus insulin * NovoLog per scale ACHS with CHO ratio determined by insulin drip calculator
[2022-05-09] MEDS ORDERED: LANTUS PER UNIT CHARGE SQ ONE (10:30)
[2022-05-09] MEDS: CLOPIDOGREL BISULFATE 75 MG TAB PO SCH (10:35)
[2022-05-09] MEDS: ATORVASTATIN 40 MG TAB PO SCH (10:35)
[2022-05-09] MEDS: UMECLIDINIUM BROMIDE 62.5MCG/BLISTER 7 PUFFS/INHALER INH SCH (10:35)
[2022-05-09] MEDS: MULTIVITAMIN TAB PO SCH (10:35)
[2022-05-09 10:39] LABS: Glucose 551 mg/dl (70-99(Fasting)); Triglycerides 389 mg/dl (0-150)
--- NOTE | 2022-05-09 11:02 | Gastrointestinal Consultation ---
Date of Consultation May 09, 2022 Assessment & Plan (1) Acute pancreatitis: As evidenced by CT suggestion of acute pancreatitis and lipase over 1999. There is no evidence of complications on the CT scan such as pseudocysts or necrosis (2) Ileus, unspecified: Secondary to pancreatitis, may also be chronically constipated. Plan 1. Agree with LR currently getting a bolus then will give 175 or 200/hr x 24 hrs. . 2. Would hold on laxatives, enemas for now. Ileus should improve with resolution of pancreatitis. No plans for IP endoscopy. 3. Would keep NPO today except ice chips for comfort. 4. Eventual OP EUS. 5. Judicial use of narcotics as will worsen the ileus. 6. Will follow along. Supervising Physician Co-Signing Physician Notes Attending attestation I have seen, examined this patient, and agree with the findings and above by our mid-level provider GREGORIA Carias, with the following additions: Pancreatitis associated with DKA, WI, ARF, now with ileus without pseudoobstruction Abdomen soft/but tender IVF Minimize Narcotics if possible NPO while painful DKA treatment, Cardiac, metabolic tx per ICU Monitor respiratory status carefully as well as Volume status History of Present Illness Reason for Consultation: Derek Azalea Attending Physician: Dago Smith MD History of Present Illness Is a 62-year-old male patient of Dr. 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 Yesterday, he was found confused, laying on the floor, by his son who arrived home from work in the evening. EMS was activated and he was brought to the ED. On arrival. CT scan suggested acute pancreatitis lipase elevated [place] 2393. CT also suggested constipation and a dilated colon. LFTs were normal with the exception of a mildly elevated alk phos at 179. Hemoconcentrated w Hb 15. Lactate is normal. However he is in DKA with blood sugar over thousand on arrival, troponins elevated most recent 07/09/1940 and higher than the 2 prior. Anion gap 20 Patient is seen and examined in the ICU. He is awake and alert and responds to verbal and tactile stimulus, attempts to answer questions but no coherent speak and does not follow commands. Allergies Allergy/AdvReac Type Severity Reaction Status Date / Time erythromycin base Allergy Mild Abdominal Verified 05/09/22 01:01 Pain Home Medications Medication Instructions Recorded Confirmed Type metformin 1,000 mg tablet 1,000 mg PO BIDM 03/11/19 05/09/22 History omeprazole 20 mg capsule,delayed 20 mg PO DAILYBB 03/11/19 05/09/22 History release insulin aspart U-100 100 unit/mL See Rx Instructions .Route .COMPLEX 06/17/20 05/09/22 History (3 mL) subcutaneous pen (Novolog Flexpen U-100 Insulin aspart) multivitamin 1 tab PO QAM 06/17/20 05/09/22 History metoprolol succinate 25 mg 25 mg PO DAILY 09/19/20 05/09/22 History tablet,extended release 24 hr acetaminophen 500 mg tablet 500 mg PO Q6H PRN Pain 08/01/21 05/09/22 History (Acetaminophen Extra Strength) insulin glargine 100 unit/mL (3 36 unit subcut HS 08/01/21 05/09/22 History mL) subcutaneous pen (Lantus Solostar U-100 Insulin) albuterol sulfate 90 mcg/actuation 2 puff inhalation Q4 PRN Shortness 12/01/21 05/09/22 History aerosol inhaler (Ventolin HFA) Of Breath Or Wheezing calcium carbonate 200 mg calcium 200 mg PO DAILY PRN Gi Upset 12/01/21 05/09/22 History (500 mg) chewable tablet (Calcium Antacid) losartan 50 mg tablet 50 mg PO DAILY 12/01/21 05/09/22 History clopidogrel 75 mg tablet 75 mg PO QAM #30 tabs 12/05/21 05/09/22 Rx oxycodone 5 mg tablet 5 mg PO Q4H PRN pain #5 tabs 12/05/21 05/09/22 Rx atorvastatin 80 mg tablet 80 mg PO QAM 05/09/22 05/09/22 History cyclobenzaprine 5 mg tablet 5 mg PO BID PRN Muscle Spasm 05/09/22 05/09/22 History multivitamin 1 tab PO QAM 05/09/22 05/09/22 History naproxen 500 mg tablet 500 mg PO BID PRN Pain 05/09/22 05/09/22 History tiotropium bromide 18 mcg capsule 1 cap inhalation DAILY 05/09/22 05/09/22 History with inhalation device (Spiriva with HandiHaler) Patient History Medical History Carpal tunnel syndrome Diabetes DKA (diabetic ketoacidoses) Hyperkalemia Hyperlipidemia Hypertension Irritable bowel syndrome Tobacco use Surgical History History of carpal tunnel surgery History of foot surgery Family History Other Diabetes Heart disease Social History Smoking Status: Current every day smoker Tobacco Type: Cigarettes Cigarettes Per Day: 5; Second Hand Exposure: Yes; Hx Alcohol Use: No Hx Substance Use: No Preferred Language: Malay Communication Ability: Effective Internal Grinding Machine Operator Required: No Beliefs That Will Affect Care: None marital status: Current Living Situation: Alone Other Information That Helps Us Care for You: No Feels Safe at Home: Yes Safety Concerns: Feels Safe At This Time Assistive Devices: Glasses Review of Systems Review of Systems: Unable to provide review of systems Physical Exam Constitutional: + ill appearing and average body habitus; no acute distress + facial flushing Eyes: PERRL, conjunctivae normal, anicteric sclerae ENMT: external ear and nose normal, oropharynx normal Neck: trachea midline, no thyromegaly Respiratory: normal respiratory effort; no cough Auscultation: + diminished lung sounds; no crackles and no wheezes Cardiovascular: Rate/Rhythm: regular rate and regular rhythm Heart Sounds: + murmur (3/6 systolic murmur loudest at the upper RSB) Gastrointestinal (Abdomen): Inspection/Auscultation: + abdomen distended (mild) Percussion/Palpation: + abdomen tender (epigastric, LLQ and suprapubic) and abdomen soft; no abdominal mass Skin: normal turgor; no rashes, no lesions and no jaundice Neurologic: PERRL, EOMI, accommodation nl, no face palsy, no dysarthria Psychiatric: Orientation: alert no evidence of agitation. Lymphatic: no cervical or axillary lymphadenopathy Results & Data ([facility]) Vital Signs (Past 12 Hours) Vital Signs Temp Pulse Resp BP Pulse Ox O2 Del Method 05/09/22 07:30 92 H 05/09/22 06:14 154/71 H 05/09/22 06:14 34.6 C L 89 22 98 05/09/22 06:00 34.5 C L 89 22 98 05/09/22 06:00 175/94 H 05/09/22 05:36 34.3 C L 88 18 97 05/09/22 05:36 154/73 H 05/09/22 05:00 34.0 C L 86 20 97 05/09/22 05:00 169/76 H 05/09/22 04:00 33.3 C L 82 16 98 05/09/22 04:00 157/73 H 05/09/22 03:50 33.3 C L 81 20 98 05/09/22 03:45 33.2 C L 80 14 98 05/09/22 03:40 33.2 C L 79 18 98 05/09/22 03:35 33.1 C L 79 17 98 05/09/22 03:30 33.0 C L 78 21 98 05/09/22 03:55 Room Air 05/09/22 03:33 78 05/09/22 03:26 33.0 C L 81 23 98 05/09/22 03:26 128/71 05/09/22 03:01 149/82 H 05/09/22 03:01 80 05/09/22 03:00 80 98 05/09/22 01:29 32.1 C L 05/09/22 00:50 71 18 99 05/09/22 00:50 140/64 05/09/22 00:40 72 20 99 05/09/22 00:40 151/64 H 05/09/22 00:33 72 20 99 05/09/22 00:33 157/59 H 05/09/22 00:11 70 16 99 05/09/22 00:10 139/62 05/09/22 00:09 70 26 H 99 05/09/22 00:00 69 22 99 05/09/22 00:00 124/54 L 05/08/22 23:50 69 19 99 05/08/22 23:50 139/62 05/08/22 23:40 67 18 99 05/08/22 23:40 124/56 L 05/08/22 23:30 66 17 99 05/08/22 23:30 141/56 H 05/08/22 23:21 131 H 20 98 05/08/22 23:21 118/63 05/08/22 23:20 130 H 26 H 97 05/08/22 23:10 131 H 17 99 05/08/22 23:10 117/57 L 05/08/22 23:03 131 H 24 05/08/22 23:03 96/48 L 05/08/22 23:01 70 05/09/22 00:55 72 18 99 Room Air 05/08/22 23:43 31.1 C L 132 H 20 116/65 99 Room Air Laboratory Results WBC 7.8, Hb 15, Hct 49, Plts 112, Na 143, K 4.1, Cl 106 CO2 17, BUN 94, Cr 3.36, BS 686 LFTs normal except AP 179. Lipase 2393 Diagnostic Findings CTAP 05/08/22: 1. Subtle stranding adjacent to the pancreas. This favors acute pancreatitis and could be correlated with serum lipase. This finding will be called/faxed to ordering provider at time of dictation. 2. Cecal distention without evidence for an obstruction. No volvulus. Moderate amount stool within the colon and rectum. 3. Groundglass opacities within the lower lungs. These may be atelectatic. H owever, an infectious process could appear similar. 4. No urinary calculi. No hydronephrosis. Distended bladder.
--- NOTE | 2022-05-09 11:17 | Electrocardiogram Report ---
Test Reason : Blood Pressure : / mmHG Vent. Rate : 065 BPM Atrial Rate : 065 BPM P-R Int : 168 ms QRS Dur : 112 ms QT Int : 450 ms P-R-T Axes : 070 086 058 degrees QTc Int : 468 ms Normal sinus rhythm Possible Left atrial enlargement Peaked T waves(consider ischemia,hyperkalemia,etc.) Abnormal ECG When compared with ECG of 23-MAR-2022 11:38, Vent. rate has decreased BY 45 BPM QRS axis Shifted right ST elevation now present in Inferior leads Confirmed by Ramu Villa ([id number]) on 05/09/2022 11:17:08 AM Referred By: REFERRED SELF Confirmed By:Barry Villa
--- NOTE | 2022-05-09 11:18 | Electrocardiogram Report ---
Test Reason : Blood Pressure : / mmHG Vent. Rate : 088 BPM Atrial Rate : 088 BPM P-R Int : 142 ms QRS Dur : 122 ms QT Int : 422 ms P-R-T Axes : 068 076 058 degrees QTc Int : 510 ms Poor data quality, interpretation may be adversely affected Normal sinus rhythm Possible Left atrial enlargement Non-specific intra-ventricular conduction delay Borderline ECG When compared with ECG of 08-MAY-2022 23:09, (unconfirmed) ST less elevated in Inferior leads Nonspecific T wave abnormality now evident in Inferior leads T wave amplitude has decreased in Lateral leads Confirmed by Ramu Villa ([id number] on 05/09/2022 11:18:06 AM Referred By: REFERRED SELF Confirmed By:Barry Villa
--- NOTE | 2022-05-09 12:00 | Hospitalist Progress Note ---
Date of Service May 09, 2022 Assessment & Plan (1) DKA (diabetic ketoacidosis): Plan: - likely component of HHS as well with AMS but can also be seen with severe DKA - BG >1000 on admission, Bicarb 7, AG 32, k 6.6. pH 7 - HbA1c 14% on admission - started on empiric abx for hypothermia - aggressive IVF - insulin drip - FSG q1h while on insulin drip - when BG <250 and AG not closed - start D51/2NS - q4h BMP and VBG - ICU admission - care per ICU - clsoe monitoring (2) Acute pancreatitis: Plan: - likely related to DKA, dehydration, ?alcohol use - aggressive IVF - monitor for withdrawal (3) OMARI (acute kidney injury): Plan: - likely due to profound volume depletion in severe DKA - IVF as above - trend BMP for DKA but monitor Cr - monitor I/O - avoid nephrotoxic meds (4) Altered mental status: Plan: - likely due to severe DKA - management as above - started on empiric abx for AMS and hypothermia initially - cultures pending (5) Hypothermia: Plan: - cultures pending - likely in setting of severe DKA, volume depletion - empiric abx for now pending cultures - ICU admission (6) Hyponatremia: Plan: - Na 128 on admission - likely pseudohyponatremia in setting of hyperglycemia - corrected Na for BG 1300 is 148 - IVF resucitation as above - monitor (7) Metabolic acidosis, increased anion gap: Plan: - in setting of DKA - management as above (8) Hypertension: Plan: - will monitor for now given severe volume depletion - restart meds as tolerated (9) Elevated troponin: Plan: - likely demand ischemia in setting of severe DKA - peaked T waves on admission due to hyperkalemia - K improving with above management - trend ECG - no ischemic changes Admission and Anticipated Discharge Date Admission Date: May 09, 2022 Subjective Patient with history of DM, HLD, ILD, HTN, h/o TIA, GERD, CKD, alcohol use disorder presented after being found down with confusion, n/v. Found to be in DKA/HSS and pancreatitis on CT. Started on IVF, insulin drip, NPO, ICU admission. Patient is lethargic this morning but will respond to yes and no questions. Seems to have some abdominal pain but difficult to assess. Review of Systems Review of Systems: Unobtainable due to reduced consciousness (lethargic due to illness) Physical Exam Physical Exam: GENERAL: The patient is somewhat lethargic, oriented to name and place only HEENT: Pupils equal, round and reactive to light. Oral mucosa dry. NECK: No JVD, no neck masses. CARDIOVASCULAR: S1 and S2 heard. Regular rate and rhythm. No murmur, no gallop. RESPIRATORY SYSTEM: Normal AP diameter. No accessory muscle use. No wheezing, no crackles. ABDOMEN: Soft, bowel sounds sluggish. Mild discomfort. No distention. CENTRAL NERVOUS SYSTEM: Alert, awake, and oriented to name and place, some confusion, lethargy. Speech, speaking in low voice. No facial droop. Moving extremities. EXTREMITIES: No edema, no erythema. Results & Data Results & Data ([facility]) Vital Signs (Past 12 Hours) Vital Signs Temp Pulse Resp BP Pulse Ox O2 Del Method 05/09/22 07:30 92 H 05/09/22 06:14 154/71 H 05/09/22 06:14 34.6 C L 89 22 98 05/09/22 06:00 34.5 C L 89 22 98 05/09/22 06:00 175/94 H 05/09/22 05:36 34.3 C L 88 18 97 05/09/22 05:36 154/73 H 05/09/22 05:00 34.0 C L 86 20 97 05/09/22 05:00 169/76 H 05/09/22 04:00 33.3 C L 82 16 98 05/09/22 04:00 157/73 H 05/09/22 03:50 33.3 C L 81 20 98 05/09/22 03:45 33.2 C L 80 14 98 05/09/22 03:40 33.2 C L 79 18 98 05/09/22 03:35 33.1 C L 79 17 98 05/09/22 03:30 33.0 C L 78 21 98 05/09/22 03:55 Room Air 05/09/22 03:33 78 05/09/22 03:26 33.0 C L 81 23 98 05/09/22 03:26 128/71 05/09/22 03:01 149/82 H 05/09/22 03:01 80 11/01/22 03:00 80 98 05/09/22 01:29 32.1 C L 05/09/22 00:50 71 18 99 05/09/22 00:50 140/64 05/09/22 00:40 72 20 99 05/09/22 00:40 151/64 H 05/09/22 00:33 72 20 99 05/09/22 00:33 157/59 H 05/09/22 00:11 70 16 99 05/09/22 00:10 139/62 05/09/22 00:09 70 26 H 99 05/09/22 00:00 69 22 99 05/09/22 00:00 124/54 L 05/08/22 23:50 69 19 99 05/08/22 23:50 139/62 05/09/22 00:55 72 18 99 Room Air 05/08/22 23:43 31.1 C L 132 H 20 116/65 99 Room Air Diagnostic Findings Laboratory Results WBC 7.86 K/ul (4.8-10.8) 05/09/22 03:43 RBC 5.06 M/uL (4.63-6.08) 05/09/22 03:43 Hgb 15.8 g/dl (14.0-18.0) 05/09/22 03:43 POC Hgb 16.3 g/dl (14.0-18.0) 05/08/22 23:44 Hct 47.4 % (40.1-51.0) 05/09/22 03:43 POC Hct 48 % (42-52) 05/08/22 23:44 MCV 93.7 fL (80.0-100.0) D 05/09/22 03:43 MCH 31.2 pg (25.0-34.0) 05/09/22 03:43 MCHC 33.3 g/dL (32.0-36.0) 05/09/22 03:43 RDW Std Deviation 47.4 fL (36.4-46.3) H 05/09/22 03:43 RDW Coeff of Mariah 14.0 % (11.5-14.5) 05/09/22 03:43 Plt Count 112 K/uL (130-400) L 05/09/22 03:43 MPV 12.0 fL (9.4-12.4) 05/09/22 03:43 Immature Gran % (Auto) 1.1 % 05/09/22 03:43 Neut % (Auto) 82.6 % 05/09/22 03:43 Lymph % (Auto) 12.0 % 05/09/22 03:43 [place] % (Auto) 3.7 % 05/09/22 03:43 Eos % (Auto) 0.1 % 05/09/22 03:43 Baso % (Auto) 0.5 % 05/09/22 03:43 Neut # (Auto) 6.49 K/uL (1.4-6.5) 05/09/22 03:43 Lymph # (Auto) 0.94 K/uL (1.2-3.4) L 05/09/22 03:43 [place] # (Auto) 0.29 K/uL (0.24-0.82) 05/09/22 03:43 Eos # (Auto) 0.01 K/uL (0-0.50) 05/09/22 03:43 Baso # (Auto) 0.04 K/uL (0-0.2) 05/09/22 03:43 Immature Gran # (Auto) 0.09 K/uL (0.00-0.02) H 05/09/22 03:43 POC pH 7.06 (7.35-7.45) L* 05/08/22 23:23 POC pCO2 23 mmHg (35-46) L 05/08/22 23:23 POC pO2 118 mmHg (80-95) H 05/08/22 23:23 POC HCO3 6 joseph/L (19-24) L 05/08/22 23:23 POC Total CO2 7 mmol/L (24-31) L* 05/08/22 23:23 POC Base Excess -24.0 joseph/L (-9-1.8) L 05/08/22 23:23 POC ABG O2 Sat 97.0 % (90-95) H 05/08/22 23:23 VBG pH 7.29 (7.36-7.41) L 05/09/22 07:52 POC Sodium 128 mmol/L (135-144) L 05/08/22 23:44 Sodium 143 mmol/L (136-145) 05/09/22 07:52 POC Potassium 6.3 mmol/L (3.3-5.0) H* 05/08/22 23:44 Potassium 4.1 mmol/L (3.5-5.1) 05/09/22 07:52 POC Chloride 100 mmol/L (101-112) L 05/08/22 23:44 Chloride 106 mmol/L (98-107) 05/09/22 07:52 Carbon Dioxide 17 mmol/L (21-32) L 05/09/22 07:52 POC Total CO2 10 mmol/L (24-31) L 05/08/22 23:44 Anion Gap 20 (3-11) H 05/09/22 07:52 POC Anion Gap 25.0 mmol/L (16-25) 05/08/22 23:44 POC BUN 113 mg/dl (7-18) H* 05/08/22 23:44 BUN 94 mg/dl (6-23) H 05/09/22 07:52 Creatinine 3.36 mg/dl (0.6-1.4) H D 05/09/22 07:52 POC Creatinine 4.3 mg/dl (0.6-1.3) H 05/08/22 23:44 Est Cr Clr Drug Dosing 21.0 ml/min 05/09/22 07:52 Est GFR ( Amer) 21.8 ml/min 05/09/22 07:52 Est GFR (Non-Af Amer) 18.8 ml/min 05/09/22 07:52 BUN/Creatinine Ratio 28.0 (10-20) H 05/09/22 07:52 Glucose 551 mg/dl (70-99(Fasting)) H* 05/09/22 09:41 POC Glucose 352 mg/dl (70-99) H* 05/09/22 11:39 POC Glucose (other) > 700 mg/dl (70-99) H* 05/08/22 23:44 Estimat Average Glucose 364 mg/dl 05/09/22 03:43 Hemoglobin A1c 14.3 % (4.5-5.6) H 05/09/22 03:43 Lactate 1.6 mmol/L (0.4-2.0) 05/09/22 01:27 Calcium 9.1 mg/dl (8.5-10.1) 05/09/22 07:52 POC Ioniz Calcium [place]ar[place] 1.15 mmol/l (1.12-1.32) 05/08/22 23:44 Phosphorus 5.2 mg/dl (2.5-4.9) H 05/09/22 07:52 Magnesium 3.2 mg/dl (1.7-2.4) H 05/09/22 07:52 Total Bilirubin 0.4 mg/dl (0.2-1.0) 05/08/22 23:26 Direct Bilirubin 0.1 mg/dl (0-0.2) 05/09/22 01:27 AST 20 U/L (13-39) 05/08/22 23:26 ALT 39 U/L (7-52) 05/08/22 23:26 Alkaline Phosphatase 179 U/L (34-104) H 05/08/22 23:26 Total Creatine Kinase 326 U/L (30-223) H 05/08/22 23:26 Troponin I High Sens 206.1 pg/ml (0-20) H* D 05/09/22 09:41 Total Protein 7.4 gm/dl (6.0-8.3) 05/08/22 23:26 Albumin 3.9 gm/dl (3.4-5.0) 05/08/22 23:26 Triglycerides 389 mg/dl (0-150) H 05/09/22 09:41 Lipase 2393 U/L (11-82) H 05/09/22 03:43 Lipase Cancelled 05/09/22 03:43 Procalcitonin 3.08 ng/ml (0-0.5) H 05/08/22 23:26 Urine Color Yellow 05/09/22 01:36 Urine Appearance Clear (Clear) 05/09/22 01:36 Urine pH 5.0 (4.5-7.5) 05/09/22 01:36 Ur Specific [place] 1.022 (1.000-1.030) 05/09/22 01:36 Urine Protein 2+ (Negative) H 05/09/22 01:36 Urine Glucose (UA) 3+ (Negative) H 05/09/22 01:36 Urine Ketones 1+ (Negative) H 05/09/22 01:36 Urine Blood 2+ (Negative) H 05/09/22 01:36 Urine Nitrite Negative (Negative) 05/09/22 01:36 Urine Bilirubin Negative (Negative) 05/09/22 01:36 Urine Urobilinogen Negative (Negative) 05/09/22 01:36 Ur Leukocyte Esterase Negative (Negative) 05/09/22 01:36 Urine WBC (Auto) 1-5 /hpf (0-5) 05/09/22 01:36 Urine RBC (Auto) 5-10 /hpf (0-4) H 05/09/22 01:36 U Hyaline Cast (Auto) 5-10 /lpf (0-5) H 05/09/22 01:36 U Epithel Cells (Auto) 20-30 /lpf (0-5) H 05/09/22 01:36 Urine Bacteria (Auto) Negative (Negative) 05/09/22 01:36 Nasal Screen MRSA (PCR) Negative (Negative) 05/09/22 04:00 Ethyl Alcohol mg/dL < 10.0 mg/dl (<10.0) 05/09/22 05:34 Adenovirus (PCR) Not Detected (NotDetected) 05/09/22 Unknown B. pertussis DNA (PCR) Not Detected (NotDetected) 05/09/22 Unknown B.parapertussis DNA PCR Not Detected (NotDetected) 05/09/22 Unknown C. pneumoniae DNA (PCR) Not Detected (NotDetected) 05/09/22 Unknown Coronavirus OC43 (PCR) Not Detected (NotDetected) 05/09/22 Unknown Coronavirus HKU1 (PCR) Not Detected (NotDetected) 05/09/22 Unknown Coronavirus 229E (PCR) Not Detected (NotDetected) 05/09/22 Unknown SARS-CoV-2 (PCR) Not Detected (NotDetected) 05/09/22 Unknown Coronavirus NL63 (PCR) Not Detected (NotDetected) 05/09/22 Unknown Human Metapneumovir PCR Not Detected (NotDetected) 05/09/22 Unknown Influenza Type A (PCR) Not Detected (NotDetected) 05/09/22 Unknown Influenza Type B (PCR) Not Detected (NotDetected) 05/09/22 Unknown M. pneumoniae (PCR) Not Detected (NotDetected) 05/09/22 Unknown Parainfluenza 1 (PCR) Not Detected (NotDetected) 05/09/22 Unknown Parainfluenza 2 (PCR) Not Detected (NotDetected) 05/09/22 Unknown Parainfluenza 3 (PCR) Not Detected (NotDetected) 05/09/22 Unknown Parainfluenza 4 (PCR) Not Detected (NotDetected) 05/09/22 Unknown RSV (PCR) Not Detected (NotDetected) 05/09/22 Unknown Entero/Rhino (PCR) Not Detected (NotDetected) 05/09/22 Unknown Impressions Chest X-Ray 05/08/22 23:05 XR chest 1V portable supine CLINICAL HISTORY: Sepsis. COMPARISON STUDY: Chest radiograph January 13, 2022. FINDINGS: No pneumothorax or pleural effusion is present. Lower lung predominant interstitial thickening has minimally progressed. Mild mediastinal widening is likely due to supine technique. There is no evidence for pulmonary edema. IMPRESSION: Slight increase in lower lung predominant interstitial thickening. This favors interstitial lung disease. No definite consolidation. ACT 112: Negative or not required by law. Electronically signed by: Cassius Perez M.D. 05/09/2022 7:[address] 05/08/22 23:07 CT head/brain wo con CLINICAL HISTORY: 62 years-old Male with ams. Acutely altered mental status TECHNIQUE: Multiple axial CT images of the head were obtained without contrast. A dose lowering technique was utilized adhering to the principles of ALARA. CT DOSE: 959.77 mGy.cm COMPARISON: None. FINDINGS: No acute intracranial hemorrhage, midline shift, intracranial mass, hydrocephalus, territorial ischemia or abnormal extra-axial collection. The calvarium is intact. Prior bilateral lens replacement. The paranasal sinuses, mastoid air cells, and middle ear cavities are clear. IMPRESSION: No acute intracranial abnormality. ACT 112: Negative or not required by law. The above report was generated using voice recognition software. It may contain grammatical, syntax or spelling errors. Electronically signed by: Reece Catalan M.D. 05/09/2022 6:39 AM Abdomen/Pelvis CT 05/08/22 23:51 CT OF THE ABDOMEN AND PELVIS WITHOUT CONTRAST CLINICAL HISTORY: Abdominal pain, AMS, ARF, DKA. COMPARISON STUDY: CT of the abdomen and pelvis March 23, 2022. TECHNIQUE: Axial images of the abdomen and pelvis were obtained without IV contrast. Images were reviewed in the axial, sagittal, and coronal planes. Automated exposure control was utilized for the study. A dose lowering technique was utilized adhering to the principles of ALARA. FINDINGS: Previously described nodules within the lower lungs are obscured on this exam due to respiratory motion artifact. Lower lung groundglass opacities are noted. There is also suspected underlying interstitial lung disease with mild bronchiectasis and subpleural reticulation. Evaluation of the abdomen and pelvis is suboptimal on this unenhanced exam. No pneumatosis, free air or portal venous gas is present. Unenhanced images of the liver, spleen, adrenal glands and kidneys are unremarkable. There is no hydronephrosis. Bilateral perinephric stranding has decreased. There is suggestion of mild stranding adjacent to the pancreas. No peripancreatic fluid collection is present. No biliary or pancreatic ductal dilatation is identified on this exam. There is no pericholecystic infiltration. Moderate amount of stool within the colon and rectum is present. Cecum is moderately distended. However, there is no evidence for a bowel obstruction or volvulus. No lymphadenopathy is present. No acute fracture or suspicious lesion within the visualized skeletal structures is identified. IMPRESSION: 1. Subtle stranding adjacent to the pancreas. This favors acute pancreatitis and could be correlated with serum lipase. This finding will be called/faxed to ordering provider at time of dictation. 2. Cecal distention without evidence for an obstruction. No volvulus. Moderate amount stool within the colon and rectum. 3. Groundglass opacities within the lower lungs. These may be atelectatic. However, an infectious process could appear similar. 4. No urinary calculi. No hydronephrosis. Distended bladder. ACT 112: Negative or not required by law. Electronically signed by: Cassius Perez M.D. 05/09/2022 7:42 AM Medications Administered Current Inpatient Medications Albuterol (Albuterol Hfa 8 Gm Inhaler) 2 puffs INH Q4 PRN PRN Reason: Shortness Of Breath Or Wheezing Stop: 06/08/22 03:32 Atorvastatin Calcium (Atorvastatin 40 Mg Tab) 80 mg PO QAM [facility] Stop: 06/08/22 08:59 Last Admin: 05/09/22 10:35 Dose: Not Given Clopidogrel Bisulfate (Clopidogrel Bisulfate 75 Mg Tab) 75 mg PO QAM [facility] Stop: 06/08/22 08:59 Last Admin: 05/09/22 10:35 Dose: Not Given Dextrose (Dextrose 50% 50 Ml Syringe) 25 - 50 ml IV UD PRN; Protocol PRN Reason: Hypoglycemia Protocol Stop: 06/08/22 00:26 Dextrose (Dextrose 50% 50 Ml Syringe) 25 - 50 ml IV UD PRN; Protocol PRN Reason: Hypoglycemia Protocol Stop: 06/08/22 03:59 Glucagon (Glucagon For Inj 1 Mg Vial) 1 mg IM UD PRN; Protocol PRN Reason: Hypoglycemia Protocol Stop: 06/08/22 03:59 Glucose (Glucose 40% Gel 15 Gm Tube) 15 - 30 gm PO UD PRN; Protocol PRN Reason: Hypoglycemia Protocol Stop: 06/08/22 03:59 Glucose (Glucose 10 Tab/Tube) 4 - 8 tab PO UD PRN; Protocol PRN Reason: Hypoglycemia Protocol Stop: 06/08/22 03:59 Heparin Sodium (Porcine) (Heparin Sod 5,000 Unit/0.5 Ml Vial) 5,000 units SQ Q8 [facility] Stop: 06/08/22 05:59 Last Admin: 05/09/22 05:27 Dose: 5,000 units Insulin Human Regular 250 (units/ Sodium Chloride) 250 mls @ 11 mls/hr IV .[id number] [facility]; Protocol Stop: 06/08/22 00:29 Last Titration: 05/09/22 11:43 Dose: 10.6 units/hr, 10.6 mls/hr Lactated Ringer's (Lr) 1,000 mls @ 175 mls/hr IV .[id number] [facility] Stop: 06/08/22 06:14 Last Admin: 05/09/22 11:34 Dose: 175 mls/hr Lactated Ringer's (Lr) 1,000 mls @ 999 mls/hr IV .Q1H1M ONE Stop: 05/09/22 12:15 Last Admin: 05/09/22 11:34 Dose: 999 mls/hr Insulin Aspart (Insulin Aspart Per Unit) 0 units SC ACHS [facility] Stop: 06/08/22 07:29 Last Admin: 05/09/22 11:34 Dose: Not Given Miscellaneous (Carbohydrates For Hypoglycemia ) 15 - 30 gm PO UD PRN PRN Reason: Hypoglycemia Protocol Stop: 06/08/22 00:26 Miscellaneous (Pending D5 1/2ns+20meq Kcl Ivf) 1 each N/A Q2H NELI Stop: 06/08/22 03:59 Miscellaneous (Carbohydrates For Hypoglycemia ) 15 - 30 gm PO UD PRN PRN Reason: Hypoglycemia Treatment Stop: 06/08/22 03:59 Miscellaneous Information (Pharmacy Glycemic Mgmt Consult) 1 each N/A UD PRN PRN Reason: Consult Stop: 06/08/22 03:32 Multivitamins (Multivitamin Tab) 1 tab PO QAM [facility] Stop: 06/08/22 08:59 Last Admin: 05/09/22 10:35 Dose: Not Given Umeclidinium Lane (Umeclidinium Lane 62.5mcg/Blister 7 Puffs/Inhaler) 1 puffs INH DAILY [facility] Stop: 06/08/22 08:59 Last Admin: 05/09/22 10:35 Dose: Not Given (1) DKA (diabetic ketoacidosis) Diabetes mellitus complication detail: without coma Diabetes mellitus type: type 2 Qualified Code(s): E11.10 - Type 2 diabetes mellitus with ketoacidosis without coma
--- NOTE | 2022-05-09 12:06 | Consultation Report ---
NEPHROLOGY CONSULTATION NOTE DATE OF SERVICE: 05/09/2022. REASON FOR CONSULTATION: Acute renal failure, hyperkalemia, diabetic ketoacidosis. HISTORY OF PRESENT ILLNESS: The patient is a 62-year-old male who was brought to the hospital last n ight because of confusion. The patient was found to be in diabetic ketoacidosis. As per the son, carlos connors had some vomiting a few days ago. Yesterday, the patient was not feeling great and was feeling very weak. When his son came back from work around 10:00 p.m. in the night, he found the patient co nfused, naked on the floor, after which he called EMS. Workup in the Emergency Department showed jc y abnormal hemodynamic status and labs. The patient was hypothermic and was put on Ignacio Hugger. The patient was in severe metabolic acidosis with a bicarbonate level of 6. Potassium was elevated at 6 .9. Sodium was low at 126. His blood sugars were in 1300. The patient was admitted in intensive ca re unit and since then he has received aggressive IV hydration as well as insulin drip. With that, e lectrolytes are now normal with a last sodium of 143, potassium of 4.1, anion gap has already gone do wn a lot and is now only 20. The patient is making about 150 mL of urine per hour for the last 3 angel rs. His last glucose is down to 551. The patient is still very somnolent and barely answers any que stions. CT abdomen and pelvis was done, which did not show any hydronephrosis. Creatinine on admiss ion was 4.55; just about a month ago, he had a creatinine of 1.44, but few months back, he had a crea tinine of less than 1, which I would count as his baseline. Most recent creatinine is down to 3.36. The patient is on room air, and his blood pressure is acceptable. Blood culture is pending and as o f now negative. Urine output is increasing and is becoming more clear. PAST MEDICAL AND SURGICAL HISTORY: Includes type 2 diabetes, which has been uncontrolled, hyperlipid emia, history of acute pancreatitis, history of interstitial lung disease, history of emphysema, pulm onary nodule, hypertension, moderate aortic valve stenosis, history of TIA, GERD, history of alcoholi sm. Carpal tunnel surgery, colonoscopy, EGD with endoscopic ultrasound. MEDICATIONS: Medications at home was reviewed in detail and is as per the reconciliation list. The patient is on insulin at home, metformin, metoprolol, multivitamin, naproxen as needed, omeprazole, o xycodone, Spiriva inhaler, Lipitor, calcium carbonate. FAMILY HISTORY: Significant for mother with aortic stenosis, Crohn's disease. Father had IL and CAB G. No renal disease or dialysis in the family. SOCIAL HISTORY: The patient is currently living with his son. He smokes about half pack a day. Hist ory of alcoholism and I cannot tell whether he is taking alcohol now or not. No drugs. REVIEW OF SYSTEMS: Unobtainable at this time secondary to mental status. PHYSICAL EXAMINATION: GENERAL: A middle-aged white male who is very somnolent. He can barely open his eyes and at the mos t mumble a few words, unable to answer any questions. Moving all 4 extremities. VITAL SIGNS: Blood pressure is 154/71, pulse rate 92, temperature 34.6, 98% on room air. CHEST: Bilateral decreased breath sounds secondary to poor inspiratory effort. CARDIOVASCULAR: S1 and S2 regular, tachycardic. Systolic murmur heard 2/6. ABDOMEN: Soft, nontender, nondistended. EXTREMITIES: Show no edema. SKIN: Shows no rash, although his face does appear very flushed and erythematous. LABORATORY TEST: CT abdomen and pelvis did not show any hydronephrosis. Subtle stranding around the pancreas is consistent with acute pancreatitis. Chest x-ray did not show any acute finding. His baseline creatinine would be regarded as normal at 0.67 as of January 2022. On admission yesterday, he had a creatinine of 4.55. This morning, it is down to 3.36. Potassium was as high as 6.9, but m ost recently down to 4.1, had severe pseudohyponatremia with a sodium of 126, but most recent it is 1 43. Hemoglobin on admission was 17.2, and is now down to 15.8, platelet count 112, WBC count 7.8. ASSESSMENT AND PLAN: A 62-year-old male with uncontrolled diabetes, now admitted with diabetic ketoa cidosis with an admission glucose of more than 1300 and was associated with acute renal failure, hype rkalemia, and pseudohyponatremia. Acute renal failure: Fortunately, the creatinine is coming down really fast with increasing urine ou tput. Most of his electrolytes are already resolved with IV fluid and the insulin drip. Anion gap i s almost closed. All of these are very encouraging signs and I believe the patient's kidney function will only get better in the coming days. At this point, we can do BMP every 12 hours. Continue cur rent IV fluid. He is making about 150 mL of urine per hour. So risk of fluid overload is very low. Continue to support hemodynamic status. Hold metformin and losartan, which he was getting as an out patient. Avoid NSAIDs and nephrotoxic agents as much as possible, avoid nephrotoxic antibiotics. I will continue to follow the patient. Thank you very much for the consult. Job ID: [id number]
[2022-05-09 12:29] LABS: BUN Creatinine Ratio 30.7 (10-20); Calcium 8.8 mg/dl (8.5-10.1); Creatinine Clr Calc Pharmacy 26.4 ml/min; Est GFR (African American) 28.8 ml/min; Est GFR (Non-African American) 24.8 ml/min; Magnesium 2.6 mg/dl (1.7-2.4); Phosphorus 3.1 mg/dl (2.5-4.9)
[2022-05-09] MEDS ORDERED: Nursing to Pharmacy Communication SCH (13:15)
[2022-05-09] MEDS: D5W AND 1/2NSS + 20MEQ KCL 20 MEQ/1,000 ML BAG IV SCH ×2 (14:49→20:25)
[2022-05-09 16:09] LABS: BUN Creatinine Ratio 33.3 (10-20); Blood Urea Nitrogen 73 mg/dl (6-23); Carbon Dioxide 25 mmol/L (21-32); Chloride 115 mmol/L (98-107); Creatinine Clr Calc Pharmacy 32.2 ml/min; Est GFR (African American) 36.6 ml/min; Est GFR (Non-African American) 31.6 ml/min; Glucose 221 mg/dl (70-99(Fasting))
[2022-05-09 17:28] LABS: Magnesium 2.2 mg/dl (1.7-2.4); Phosphorus 2.7 mg/dl (2.5-4.9); Potassium 3.9 mmol/L (3.5-5.1)
[2022-05-09 17:30] LABS: Troponin I High Sensitivity 274.7 pg/ml (0-20)
--- NOTE | 2022-05-09 18:06 | XCELERA ---
[id number]
[2022-05-09] MEDS ORDERED: METOPROLOL TARTRATE 1 MG/ML VIAL IV ONE (18:25)
[2022-05-09 21:30] LABS: BUN Creatinine Ratio 32.3 (10-20); Calcium 8.3 mg/dl (8.5-10.1); Creatinine Clr Calc Pharmacy 42.2 ml/min; Est GFR (African American) 50.8 ml/min; Est GFR (Non-African American) 43.8 ml/min; Magnesium 2.1 mg/dl (1.7-2.4); Phosphorus 2.2 mg/dl (2.5-4.9); Potassium 3.7 mmol/L (3.5-5.1)
[2022-05-09] MEDS ORDERED: NORMOSOL-R 1,000 ML IV ONE (21:31)
[2022-05-09] MEDS: POTASSIUM CHLORIDE 20 MEQ in DEXTROSE 5% 1,000 ML IV SCH (22:07)
[2022-05-09 23:50] LABS: BUN Creatinine Ratio 29.9 (10-20); Calcium 8.3 mg/dl (8.5-10.1); Creatinine Clr Calc Pharmacy 44.9 ml/min; Est GFR (African American) 54.7 ml/min; Est GFR (Non-African American) 47.2 ml/min; Magnesium 2.1 mg/dl (1.7-2.4); Phosphorus 1.9 mg/dl (2.5-4.9); Potassium 3.8 mmol/L (3.5-5.1)
[2022-05-10 00:06] LABS: Troponin I High Sensitivity 213.7 pg/ml (0-20)
[2022-05-10] MEDS: INSULIN REGULAR 250 UNITS in SODIUM CHLORIDE 0.9% 247.5 ML IV SCH (02:55)
[2022-05-10] MEDS: POTASSIUM CHLORIDE 20 MEQ in DEXTROSE 5% 1,000 ML IV SCH ×2 (04:05→09:14)
[2022-05-10 05:02] LABS: Basophils # (auto) 0.08 K/uL (0-0.2); Basophils % (auto) 1.2 %; Hematocrit (blood only) 43.3 % (40.1-51.0); Hemoglobin 15.6 g/dl (14.0-18.0); Immature Granulocytes # (auto) 0.12 K/uL (0.00-0.02); Immature Granulocytes % (auto) 1.8 %; Lymphocytes # (auto) 0.51 K/uL (1.2-3.4); Lymphocytes % (auto) 7.9 %; Mean Corpuscular Volume 86.1 fL (80.0-100.0); Mean Platelet Volume 11.6 fL (9.4-12.4); Monocytes # (auto) 0.28 K/uL (0.24-0.82); Monocytes % (auto) 4.3 %; Neutrophils % (auto) 84.8 %; Platelet Count 92 K/uL (130-400); Platelet Estimate Decreased (Normal); RDW Coefficient of Variation 14.6 % (11.5-14.5); RDW Standard Deviation 44.7 fL (36.4-46.3); Red Blood Count 5.03 M/uL (4.63-6.08); Toxic Vacuolation 1+; White Blood Count 6.49 K/ul (4.8-10.8)
[2022-05-10] MEDS: HEPARIN SOD 5,000 UNIT/0.5 ML VIAL SQ SCH ×2 (05:57→21:11)
[2022-05-10 06:17] LABS: BUN Creatinine Ratio 27.5 (10-20); Calcium 8.1 mg/dl (8.5-10.1); Creatinine Clr Calc Pharmacy 51.1 ml/min; Est GFR (African American) 63.9 ml/min; Est GFR (Non-African American) 55.2 ml/min; Magnesium 2.1 mg/dl (1.7-2.4); Potassium 3.7 mmol/L (3.5-5.1)
[2022-05-10] MEDS ORDERED: STAT IV STA (06:21)
[2022-05-10] MEDS ORDERED: POTASSIUM PHOS 3 MMOL/1 ML INFUSION IV STA (06:22)
[2022-05-10] MEDS ORDERED: CALCIUM GLUCONATE 10% 2,000 MG in DEXTROSE 5% 50 ML IV ONE (06:30)
[2022-05-10] MEDS ORDERED: POTASSIUM PHOSPHATE 12 MMOL in SODIUM CHLORIDE 0.9% 250 ML IV ONE (06:45)
[2022-05-10] MEDS ORDERED: LANTUS PER UNIT CHARGE SQ ONE (07:45)
--- NOTE | 2022-05-10 07:47 | Critical Care Progress Note ---
Date of Service May 10, 2022 Assessment & Plan (1) Uncontrolled type 2 DM with hyperosmolar nonketotic hyperglycemia: Plan: Reason Critically Ill: 62-year-old male who was admitted to the hospital for severe hyperglycemia and transferred to the ICU for close monitoring of hyperosmolar nonketotic hyperglycemia on IV insulin. Patient is stable, now on subQ insulin and awaiting downgrade from ICU. Sedation: None Analgesia: Tylenol as needed Neuro Altered mental status: Likely secondary to hyperglycemia (>1300 on admission). Improving. AAO x2 (self, location). Tolerating clear liquid diet with assisted feeding. Febrile overnight but low suspicion for infection or encephalopathy. * Roman catheter out * PT/OT evaluation. Cardiac Sinus tachycardia/hypertension: Stable HR (100s), BPs (150s-160s systolic). Symptoms have improved/plateaued with fluid resuscitation alone thus far. Patient has PMH of hypertension and hyperlipidemia, managed with losartan and metoprolol succinate so suspect persistent, stable elevation in BP due to withholding of those meds. * mIVF: 1/2-NS +20 mEq KCl * Resume home losartan, metoprolol Respiratory No acute concerns. Patient remains on room air, saturating ~95%. No acute/impressive findings seen on admission CXR. GI GERD: Patient has tolerated noncaloric clear liquid diet yesterday without nausea or vomiting. Bowel sounds heard in all quadrants on exam today. He takes omeprazole, possibly for GERD though it is unclear, as he has no listed history of GERD. * Starting pantoprazole 40 mg daily. * Clear liquid diet. Advance as tolerated RENAL/LYTES OMARI: Improving with IVF repletion. Creatinine continues to improve (baseline appears to be 0.7-1.06). Suspect prerenal cause, given profound hypovolemia. Patient received approximately 7 L bolus since admission. Anion gap closed yesterday. Now on maintenance half-normal saline with supplemental KCl. Acute pancreatitis: Suspect secondary to hypertriglyceridemia. Lipase >3 times upper limit of normal (2393) on admission. Management concurrent with HHS management (insulin, aggressive IVF repletion). Lipase today 152. Patient remains moderately tender on abdominal exam, otherwise is improving. Tolerated gentle initiation of clear liquid diet well. Hypophosphatemia: 2.0 today, from 3.1 yesterday. * No significant electrolyte derangement. * Trend, replete electrolytes per ICU electrolyte replacement protocol. * Trend lipase every 24-48H as needed No acute concerns at this time * Discontinue Roman catheter ENDO HHS/DKA: Hyperglycemia is resolving. Anion gap closed for 18+ hours. Patient now off IV insulin infusion, received 20 units of Lantus subQ this morning. * Hypoglycemic management per ICU protocol HEME * Stable H&H. * Will monitor for any drops in the setting of Heparin gtt ID Fever: T-max of 38.3 overnight. Patient otherwise asymptomatic. Procalcitonin elevated on admission, however this was thought to be secondary to primary hyperglycemic process. WBC improved vs yesterday, in line with overall trend since admission. Low suspicion for infection at this time. Suspect pancreatitis. * Procalcitonin ordered for tomorrow a.m. If elevated, would obtain urine, blood cultures (sputum if possible), CT abdomen pelvis. * Holding off on empiric antibiotic management unless patient is symptomatic. * Monitor fever curve. LINES/IV ACCESS * PIVs intact. DVT PROPHYLAXIS Heparin gtt. Thank you for allowing us to be part of this patient's care. Please refer to Dr. Blackwell's documentation for any further recommendations. (2) Acute pancreatitis: (3) Altered mental status: (4) OMARI (acute kidney injury): (5) DKA (diabetic ketoacidoses): (6) Hyperkalemia: (7) DKA (diabetic ketoacidosis): (8) Hypertension: Admission and Anticipated Discharge Date Admission Date: May 09, 2022 Supervising Physician Co-Signing Physician Notes Patient seen and examined. EMR reviewed. Discussed on multidisciplinary rounds as well as with family practice resident. Agree with assessment plan as noted. The patient is slowly improving clinically. We will transition off the insulin drip to subcutaneous insulin. He has had low-grade fevers. His initial procalcitonin was elevated however this is of unclear significance in the setting of acute renal failure. Discussed with GI. Will administer additional volume resuscitation now and follow the patient clinically. If he remains persistently febrile, would consider CT of the abdomen pelvis with contrast provided his kidney function holds to evaluate for pancreatic necrosis. Will discontinue Roman catheter. Get out of bed to chair as tolerated. Advancing diet as tolerated. PT and OT consultations requested. Patient's critical care issues appear improved at this point time. He is stable to transfer to the medical service. Critical care will sign off. Feel free to contact us with questions or concerns. Subjective Overnight, patient febrile with T-max of 38.3 C. This morning, patient complains of a headache, slight chest pain, and left lower quadrant abdominal pain. He denies chills, shortness of breath, dizziness, or nausea. Mentation appears improved vs yesterday. He remains more lethargic than alert, but is oriented x2 (self, location), and improvement from yesterday. Review of Systems Review of Systems: All systems reviewed & are unremarkable except as noted in HPI & below Physical Exam Physical Exam: General: No acute distress. Mentation improved vs yesterday. HEENT: PERRLA. Normal conjunctiva, anicteric sclera. Oropharynx dry. Respiratory: Moderate respiratory effort, left-sided basilar crackles. Cardiovascular: Tachycardic, regular rhythm. 3/6 systolic murmur loudest at apex. No gallops or rubs. No pedal edema. GI: Soft abdomen with normal bowel sounds heard on auscultation. Diffusely moderate TTP greatest at LLQ. Butler sign + Neuro: Alert and oriented x2 (self, location). Results & Data Results & Data ([facility]) Vital Signs (Past 12 Hours) Vital Signs Temp Pulse Resp BP Pulse Ox 05/10/22 06:00 38.0 C H 108 H 22 95 05/10/22 06:00 154/82 H 05/10/22 05:00 38.1 C H 108 H 19 95 05/10/22 05:00 163/81 H 05/10/22 04:00 38.2 C H 109 H 19 95 05/10/22 04:00 160/83 H 05/10/22 03:00 38.2 C H 109 H 18 95 05/10/22 03:00 161/82 H 05/10/22 02:00 38.3 C H 110 H 21 95 05/10/22 02:00 157/82 H 05/10/22 01:00 38.3 C H 109 H 22 96 05/10/22 01:00 153/74 H 05/10/22 00:00 38.1 C H 107 H 20 95 05/10/22 00:00 162/77 H 05/10/22 00:00 107 H 05/09/22 23:00 38.0 C H 104 H 20 95 05/09/22 23:00 156/82 H 05/09/22 22:00 37.9 C H 100 H 17 95 05/09/22 22:00 165/81 H 05/09/22 21:00 37.8 C H 100 H 21 96 05/09/22 21:00 160/85 H 05/09/22 20:00 37.7 C H 96 H 17 95 05/09/22 20:00 164/79 H Resident Activity Tracking Resident Involvement: Resident Care Provided Care Provided: Adult Hospital Medicine (1) DKA (diabetic ketoacidosis) Diabetes mellitus complication detail: without coma Diabetes mellitus type: type 2 Qualified Code(s): E11.10 - Type 2 diabetes mellitus with ketoacidosis without coma
[2022-05-10] MEDS: CLOPIDOGREL BISULFATE 75 MG TAB PO SCH (08:37)
[2022-05-10] MEDS: MULTIVITAMIN TAB PO SCH (08:37)
[2022-05-10] MEDS: ATORVASTATIN 40 MG TAB PO SCH (08:37)
[2022-05-10] MEDS: UMECLIDINIUM BROMIDE 62.5MCG/BLISTER 7 PUFFS/INHALER INH SCH (08:38)
[2022-05-10] MEDS: INSULIN ASPART PER UNIT SC SCH ×5 (08:43→23:56)
--- NOTE | 2022-05-10 09:36 | Nephrology Progress Note ---
Date of Service May 10, 2022 Assessment & Plan Admission and Anticipated Discharge Date Admission Date: May 09, 2022 Subjective S--rapid improvement in all labs. making good amount of urine. PHYSICAL EXAMINATION: GENERAL: A middle-aged white male who is very somnolent. He can barely open his eyes and at the most mumble a few words, unable to answer any questions. Moving all 4 extremities. CHEST: Bilateral decreased breath sounds secondary to poor inspiratory effort. CARDIOVASCULAR: S1 and S2 regular, tachycardic. Systolic murmur heard 2/6. ABDOMEN: Soft, nontender, nondistended. EXTREMITIES: Show no edema. SKIN: Shows no rash, although his face does appear very flushed and erythematous. LABORATORY TEST: CT abdomen and pelvis did not show any hydronephrosis. Subtle stranding around the pancreas is consistent with acute pancreatitis. Chest x- ray did not show any acute finding. His baseline creatinine would be regarded as normal at 0.67 as of January 2022. On admission yesterday, he had a creatinine of 4.55. This morning, it is down to 1.38. Potassium was as high as 6.9, but most recently down to normal. , had severe pseudohyponatremia with a sodium of 126, but most recent it is 147. ASSESSMENT AND PLAN: A 62-year-old male with uncontrolled diabetes, now admitted with diabetic ketoacidosis with an admission glucose of more than 1300 and was associated with acute renal failure, hyperkalemia, and pseudohyponatremia. Acute renal failure: Fortunately, the creatinine is coming down really fast with increasing urine output. Now almost baseline.Most of his electrolytes are already resolved with IV fluid and the insulin drip. Anion gap is almost closed. At this point, we can do BMP every 24 hours. Hold metformin and Losartan for now. Hypernatremia---Agree with ivlfuid change. Continue d5w with k.cl. . Results & Data ([facility]) Vital Signs (Past 12 Hours) Vital Signs Temp Pulse Resp BP Pulse Ox 05/10/22 06:00 38.0 C H 108 H 22 95 05/10/22 06:00 154/82 H 05/10/22 05:00 38.1 C H 108 H 19 95 05/10/22 05:00 163/81 H 05/10/22 04:00 38.2 C H 109 H 19 95 05/10/22 04:00 160/83 H 05/10/22 03:00 38.2 C H 109 H 18 95 05/10/22 03:00 161/82 H 05/10/22 02:00 38.3 C H 110 H 21 95 05/10/22 02:00 157/82 H 05/10/22 01:00 38.3 C H 109 H 22 96 05/10/22 01:00 153/74 H 05/10/22 00:00 38.1 C H 107 H 20 95 05/10/22 00:00 162/77 H 05/10/22 00:00 107 H 05/09/22 23:00 38.0 C H 104 H 20 95 05/09/22 23:00 156/82 H 05/09/22 22:00 37.9 C H 100 H 17 95 05/09/22 22:00 165/81 H
[2022-05-10] MEDS ORDERED: SODIUM CHLOR 0.45% + 20MEQ KCL 20 MEQ/1,000 ML BAG IV SCH (10:45)
[2022-05-10] MEDS ORDERED: bisacodyL 10 MG SUPP PR STA (11:08)
--- NOTE | 2022-05-10 11:08 | Pharmacy Report ---
Pharmacy Glycemic Short Note 2 - Date of Service May 10, 2022 - Glycemic Short BSG Results (Last 24 hours): 05/09/22 05/09/22 05/09/22 11:26 11:39 12:43 Glucose 394 H* POC Glucose 352 H* 336 H* 05/09/22 05/09/22 05/09/22 13:42 14:40 15:03 Glucose POC Glucose 274 H 185 H 174 H 05/09/22 05/09/22 05/09/22 15:24 15:27 15:42 Glucose 221 H POC Glucose 228 H 236 H 05/09/22 05/09/22 05/09/22 16:00 17:22 18:19 Glucose POC Glucose 277 H 222 H 221 H 05/09/22 05/09/22 05/09/22 19:31 20:23 20:50 Glucose 246 H POC Glucose 243 H 224 H 05/09/22 05/09/22 05/09/22 21:31 22:45 23:14 Glucose 258 H POC Glucose 255 H 233 H 05/09/22 05/10/22 05/10/22 23:43 00:47 01:46 Glucose POC Glucose 248 H 254 H 270 H 05/10/22 05/10/22 05/10/22 02:51 02:53 04:41 Glucose POC Glucose 374 H* 284 H 329 H* 05/10/22 05/10/22 05/10/22 05:30 06:50 08:26 Glucose 341 H* POC Glucose 315 H* 314 H* 05/10/22 10:34 Glucose POC Glucose 307 H* OUTPATIENT ANTIDIABETIC REGIMEN: * Non-adherence likely * Lantus 36 units SC HS * Novolog 02/13/10 units TIDM with additional correctional insulin of 25 mg/dL/unit * Metformin * HbA1c 14.3% on 05/09/22 ASSESSMENT: 05/10/22 * Patient clinically improving, labs normal, blood sugar still elevated, tighten goal range for insulin drip, change IV Fluids from D5 to 1/2NS, and give another dose of basal insulin, anticipating stopping drip this afternoon/evening. 05/09/22 * 62 yo M admitted with confusion 2nd mixed HHS and DKA picture. Low CO2 and pH, elevated anion gap, (indicative of DKA) plus effective osmolality >320 (indicative of HHS) * Discussed fluids at ICU rounds - would normally add in potassium to fluids at this time but given stable potassium and OMARI along with some potassium in planned 3L LR bolus, but will hold off for now with plans for provider to reassess at next lab draw. Also discussed corrected sodium being elevated with eventual need to change to a fluid with less Na content. Again, provider to reassess at next lab draw. Ongoing aggressive fluid resuscitation planned. * Discussed plan for transition of insulin drip at ICU rounds - will not transition now. However, OK to provide very low dose Lantus to help with eventual transition. * HHS and DKA will both need to be corrected / addressed prior to transition of drip and reduction of goal range - improvement in mental status hopefully back to baseline (for HHS) along with improvement in CO2, anion gap (for DKA) will both be necessary. Hopefully these will be achieved by tomorrow AM and transition can be attempted at that time PLAN FOR INPATIENT GLYCEMIC CONTROL: * Hold outpatient oral diabetes medications * Insulin drip * Goal range 110-180 mg/dL, currently running at 2.1 units/hr * discontinue when BSG < 180mg/dl x 2 hours and drip rate 1unit/hr or less * Basal insulin * Lantus 20 units SC x1 this AM then * Lantus SC HS - 0 units BSG < 180, 12 units BSG 180-250, 20 units BSG > 250 * Bolus insulin * NovoLog per scale ACHS with CHO ratio determined by insulin drip calculator * then CF 25 CR 8 when transitioned to SC insulin only
[2022-05-10] MEDS ORDERED: LACTATED RINGER'S 1,000 ML IV ONE (11:16)
--- NOTE | 2022-05-10 11:22 | Gastroenterology Progress Note ---
Date of Service May 10, 2022 Assessment & Plan (1) Acute pancreatitis: Plan Though improving,, appears to still be hemoconcentrated. Also although ileus is improving he does seem to be constipated. Recommend changing IV fluids to LR, give a 1 L bolus then 200/h. Tapwater enema followed by Dulcolax x2 today. Would keep n.p.o. except ice chips today. Will continue to follow closely. This plan was discussed with the ICU bead forming machine operator on 05 10 at approximately 12:30 PM Admission and Anticipated Discharge Date Admission Date: May 09, 2022 Supervising Physician Co-Signing Physician Notes Attending attestation I have seen, examined this patient, and agree with the findings and above by our mid-level provider GREGORIA Carias, with the following additions: - If has continued fevers, please re-image to r/o pancreatic necrosis - Improving with Cr, Respiratory status is good - Continue current care by ICU team Subjective Late entry: 62 yr old male w DM2, hx increased ETOH. Admitted on 05/09 having been unconconsious. Admitted w DKA, Mental status changes, acute pancreatitis. CT w pancreatitis. Lipase >2000 yesterda->152 today. No LFT elevation This morning LLQ pain, passing smears of brown stool. Still flushed face febrile overnight, now 37.7 (max 38.3 Review of Systems Review of Systems: ROS: Gen: + weakness improving, No fevers, weight loss Eyes: No eye redness, or pain, no recent vision changes Resp: No SOB, no cough Cardio: No palpitations/irregular beats, no chest pain GI: + still w bilat lower abd pain : Denies pain on urination Skin: No jaundice, itching or new rashes Physical Exam Constitutional: + ill appearing and average body habitus; no acute distress Eyes: PERRL, conjunctivae normal, anicteric sclerae ENMT: external ear and nose normal, oropharynx normal Neck: trachea midline, no thyromegaly Respiratory: normal respiratory effort; no cough Auscultation: + diminished lung sounds; no crackles and no wheezes Cardiovascular: Rate/Rhythm: regular rate and regular rhythm Heart Sounds: + murmur (3/6 systolic murmur loudest at the upper RSB) Gastrointestinal (Abdomen): Inspection/Auscultation: + abdomen distended (mild) Percussion/Palpation: + abdomen tender (epigastric, LLQ and suprapubic) and abdomen soft; no abdominal mass Rectal exam w hard stool in the rectum, no blood Skin: normal turgor; no rashes, no lesions and no jaundice Neurologic: PERRL, EOMI, accommodation nl, no face palsy, no dysarthria Psychiatric: Orientation: alert Lymphatic: no cervical or axillary lymphadenopathy Results & Data ([facility]) Vital Signs (Past 12 Hours) Vital Signs Temp Pulse Resp BP Pulse Ox O2 Del Method 05/10/22 10:00 37.7 C H 105 H 18 95 05/10/22 10:00 156/87 H 05/10/22 09:00 37.7 C H 104 H 17 95 05/10/22 09:00 159/85 H 05/10/22 08:00 37.5 C 110 H 20 95 05/10/22 08:00 174/90 H 05/10/22 07:00 37.9 C H 104 H 17 95 05/10/22 07:00 162/83 H 05/10/22 08:00 108 H 05/10/22 08:00 Room Air 05/10/22 06:00 38.0 C H 108 H 22 95 05/10/22 06:00 154/82 H 05/10/22 05:00 38.1 C H 108 H 19 95 05/10/22 05:00 163/81 H 05/10/22 04:00 38.2 C H 109 H 19 95 05/10/22 04:00 160/83 H 05/10/22 03:00 38.2 C H 109 H 18 95 05/10/22 03:00 161/82 H 05/10/22 02:00 38.3 C H 110 H 21 95 05/10/22 02:00 157/82 H 05/10/22 01:00 38.3 C H 109 H 22 96 05/10/22 01:00 153/74 H 05/10/22 00:00 38.1 C H 107 H 20 95 05/10/22 00:00 162/77 H 05/10/22 00:00 107 H Laboratory Results Reviewed. WBC 6.49, Hb 15.6, HCT 43.3, PLT S 92, NA 147, K3.7, CL 112, CO2 29, BUN 38, CR 1.38, glucose 341. Lipase 152, LFTs, troponins 155
[2022-05-10] MEDS: PANTOprazole 40 MG TAB PO SCH (11:33)
[2022-05-10] MEDS: LOSARTAN POTASSIUM 50 MG TAB PO SCH (11:33)
[2022-05-10] MEDS: METOPROLOL SUCC 25MG EXT REL TAB PO SCH (11:33)
[2022-05-10 12:23] LABS: Albumin Level 2.8 gm/dl (3.4-5.0); Bilirubin,Total 0.3 mg/dl (0.2-1.0); Total Protein 5.8 gm/dl (6.0-8.3)
[2022-05-10] MEDS: LACTATED RINGER'S 1,000 ML IV SCH ×2 (12:26→17:44)
--- NOTE | 2022-05-10 12:47 | Billing Data ---
Date of Service May 10, 2022 Coding Level of Care Code 75456 Subseq Hosp Care Lvl 3
[2022-05-10] MEDS: SODIUM CHLORIDE 0.45 % 1,000 ML IV SCH ×2 (13:02→15:35)
--- NOTE | 2022-05-10 14:09 | Electrocardiogram Report ---
Test Reason : Blood Pressure : / mmHG Vent. Rate : 105 BPM Atrial Rate : 105 BPM P-R Int : 132 ms QRS Dur : 098 ms QT Int : 380 ms P-R-T Axes : 066 070 016 degrees QTc Int : 502 ms Sinus tachycardia Possible Left atrial enlargement Anterior infarct , age undetermined Abnormal ECG When compared with ECG of 09-MAY-2022 05:39, QRS duration has decreased T wave inversion more evident in Inferior leads Nonspecific T wave abnormality now evident in Lateral leads Confirmed by Ramu Villa ([id number] on 05/10/2022 2:09:19 PM Referred By: REFERRED SELF Confirmed By:Barry Villa
--- NOTE | 2022-05-10 14:13 | Pharmacy Report ---
- Date of Service May 10, 2022 - Pharmacy CVA/TIA Medication Review Medications to Prevent Stroke handout has been added to the patients discharge packet. 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] [] Cholesterol * High intensity statin: [atorvastatin 40 mg daily] [atorvastatin 80 mg daily] [rosuvastatin 20 mg daily] * High intensity statin deferred due to [age >75] [no evidence of atherosclerosis (cerebral, coronary, or PVD)] [history of hemorrhagic stroke] [] DVT Prophylaxis * [Heparin SQ] [Enoxaparin SQ] [SCD knee] [SCD thigh] * Pharmacologic and mechanical DVT prophylaxis deferred due to [] Therapeutic Anticoagulation * No history of Afib/Aflutter noted * Hx Afib/Aflutter noted, and patient is currently receiving [] * Hx Afib/Aflutter noted, but anticoagulation is being deferred [until discharge per ] [due to allergy] [due to prior complication] [due to mental status] [due to patient refusal] [due to risk for falls] [due to serious side effect] [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 "Medications to prevent stroke" handout has already been added to the patient's discharge packet, which instructs the patient to follow up with their outpatient provider to evaluate which diabetes medication with proven CVD benefit is best for them
[2022-05-10] MEDS ORDERED: bisacodyL 10 MG SUPP PR ONE (14:15)
--- NOTE | 2022-05-10 17:34 | Hospitalist Progress Note ---
Date of Service May 10, 2022 Assessment & Plan (1) DKA (diabetic ketoacidosis): Plan: per Dr. Mo's notes with addendum: DKA - likely component of HHS as well with AMS but can also be seen with severe DKA -From acute pancreatitis: - BG >1000 on admission, Bicarb 7, AG 32, k 6.6. pH 7 - HbA1c 14% on admission - started on empiric abx for hypothermia - aggressive IVF - insulin drip - FSG q1h while on insulin drip - when BG <250 and AG not closed - start D51/2NS - q4h BMP and VBG - ICU admission - care per ICU 05/10 Blood glucose improving But still on insulin drip Continue to monitor closely (2) Acute pancreatitis: Plan: - Unclear etiology -Patient denies drinking alcohol for the past 25 years -Lipase much better Still having some abdominal pain although improving Continue IV fluids Will need ultrasound to rule out gallstones CT abdomen:. No biliary or pancreatic ductal dilatation is identified on this exam. There is no pericholecystic infiltration. (3) OMARI (acute kidney injury): Plan: - likely due to profound volume depletion in severe DKA - IVF as above Creatinine back to baseline (4) Altered mental status: Plan: - likely encephalopathy secondary to DKA, acute pancreatitis, hypothermia - management as above 05/10 Seems to be back to baseline Monitor closely Fever -From acute pancreatitis? Fever curve improving through the day No leukocytosis -Blood cultures: Negative so far Procalcitonin ordered for tomorrow Antibiotics held off for now (5) Hypothermia: Plan: - likely in setting of severe DKA, volume depletion Low-grade fever pneumonia (6) Hyponatremia: Plan: Resolved (7) Metabolic acidosis, increased anion gap: Plan: - in setting of DKA - management as above (8) Hypertension: Plan: - will monitor for now given severe volume depletion - restart meds as tolerated (9) Elevated troponin: Plan: - likely demand ischemia in setting of severe DKA - peaked T waves on admission due to hyperkalemia - K improving with above management - trend ECG - no ischemic changes Disposition Pending Admission and Anticipated Discharge Date Admission Date: May 09, 2022 Subjective Follow-up for DKA, acute pancreatitis, encephalopathy, etc. Seen resting in bed,, eyes closed but answering questions appropriately Oriented x3 States he feels "[id number]" Still having some epigastric pain, mild to moderate No nausea, no bowel movements No shortness of breath, cough, fevers or chills at home No other symptoms Per RN, patient noted to be having difficulty with swallowing pills today Review of Systems Review of Systems: all noted and negative except for above Physical Exam Physical Exam: General- oriented x 3, not in distress, speaks in sentences with no effort or accessory muscle use Appears weak Eyes mostly closed but answering questions Eyes- anicteric Neck- no JVD Lungs- clear breath sounds bilaterally, no rales/wheezes Heart- normal rate, regular rhythm; no murmurs Abdomen- normal bowel sounds, nondistended, soft, mild epigastric tenderness Extremities- no pretibial edema, no calf tenderness Neuro-somewhat drowsy, oriented x 3; no gross focal neurologic deficits Skin- warm & dry Results & Data Results & Data ([facility]) Vital Signs (Past 12 Hours) Vital Signs Temp Pulse Resp BP Pulse Ox O2 Del Method 05/10/22 17:00 96 H 21 96 05/10/22 17:00 135/73 05/10/22 16:00 95 H 14 95 05/10/22 16:00 132/70 05/10/22 16:43 37.2 C 05/10/22 15:00 100 H 17 95 05/10/22 15:00 143/70 H 05/10/22 14:00 102 H 17 94 05/10/22 14:00 136/71 05/10/22 13:00 105 H 17 96 05/10/22 13:00 139/76 05/10/22 12:14 154/86 H 05/10/22 12:14 108 H 15 05/10/22 12:00 108 H 23 05/10/22 11:00 37.7 C H 105 H 25 H 95 05/10/22 11:00 165/84 H 05/10/22 10:00 37.7 C H 105 H 18 95 05/10/22 10:00 156/87 H 05/10/22 09:00 37.7 C H 104 H 17 95 05/10/22 09:00 159/85 H 05/10/22 08:00 37.5 C 110 H 20 95 05/10/22 08:00 174/90 H 05/10/22 07:00 37.9 C H 104 H 17 95 05/10/22 07:00 162/83 H 05/10/22 08:00 108 H 05/10/22 08:00 Room Air 05/10/22 06:00 38.0 C H 108 H 22 95 05/10/22 06:00 154/82 H all noted and reviewed including below (1) DKA (diabetic ketoacidosis) Diabetes mellitus complication detail: without coma Diabetes mellitus type: type 2 Qualified Code(s): E11.10 - Type 2 diabetes mellitus with ketoacidosis without coma
[2022-05-10] MEDS: INSULIN DRIP STOP ORDER SCH ×3 (17:44→17:46)
--- NOTE | 2022-05-10 18:39 | Ultrasound Report ---
US gallbladder HISTORY: 62 years-old Male acute pancreatitis, r/o cholelithiasis acute right upper quadrant abdomin al pain COMPARISON: CT abdomen and pelvis 05/09/2022 TECHNIQUE: Multiple real-time sonographic images of the abdominal right upper quadrant were obtained assessing grayscale appearance and color flow FINDINGS: The pancreas is mostly obscured by bowel gas. The liver measures 16.67 m in length and is unremarkabl e. Trace free fluid within the upper abdomen. Mild gallbladder distention with biliary sludge. No sha dowing cholelithiasis or gallbladder wall thickening. Sonographic Butler sign was not reported. Alexus l common bile duct, 4 mm. The imaged right kidney is unremarkable without hydronephrosis. IMPRESSION: 1. Gallbladder distention with biliary sludge. No cholelithiasis or gallbladder wall thickening ident ified to suggest acute cholecystitis. 2. No biliary ductal dilation. 3. Trace free fluid of the upper abdomen, likely related to the acute pancreatitis described on arthur trent's CT exam. ACT 112: Negative or not required by law. The above report was generated using voice recognition software. It may contain grammatical, syntax o r spelling errors. Electronically signed by: Reece Catalan M.D. 05/10/2022 6:37 PM
[2022-05-10] MEDS: LANTUS PER UNIT CHARGE SQ SCH (21:11)
[2022-05-11] MEDS: INSULIN ASPART PER UNIT SC SCH ×5 (03:58→20:35)
[2022-05-11] MEDS: LACTATED RINGER'S 1,000 ML IV SCH (03:59)
[2022-05-11 07:31] LABS: Basophils # (auto) 0.09 K/uL (0-0.2); Basophils % (auto) 1.1 %; Echinocytes 1+; Eosinophils # (auto) 0.02 K/uL (0-0.50); Eosinophils % (auto) 0.2 %; Hematocrit (blood only) 39.2 % (40.1-51.0); Hemoglobin 13.7 g/dl (14.0-18.0); Immature Granulocytes # (auto) 0.02 K/uL (0.00-0.02); Immature Granulocytes % (auto) 0.2 %; Lymphocytes # (auto) 1.04 K/uL (1.2-3.4); Lymphocytes % (auto) 12.9 %; Mean Corpuscular Hemoglobin 30.9 pg (25.0-34.0); Mean Corpuscular Hgb Conc 34.9 g/dL (32.0-36.0); Mean Corpuscular Volume 88.3 fL (80.0-100.0); Mean Platelet Volume 11.3 fL (9.4-12.4); Monocytes # (auto) 0.32 K/uL (0.24-0.82); Neutrophils # (auto) 6.57 K/uL (1.4-6.5); Neutrophils % (auto) 81.6 %; Platelet Count 85 K/uL (130-400); RDW Coefficient of Variation 14.7 % (11.5-14.5); RDW Standard Deviation 47.4 fL (36.4-46.3); Red Blood Count 4.44 M/uL (4.63-6.08); White Blood Count 8.06 K/ul (4.8-10.8)
[2022-05-11 07:55] LABS: BUN Creatinine Ratio 23.9 (10-20); Calcium 8.2 mg/dl (8.5-10.1); Creatinine Clr Calc Pharmacy 81.8 ml/min; Est GFR (African American) 108.2 ml/min; Est GFR (Non-African American) 93.4 ml/min; Magnesium 2.1 mg/dl (1.7-2.4); Phosphorus 1.5 mg/dl (2.5-4.9); Potassium 3.2 mmol/L (3.5-5.1)
[2022-05-11] MEDS ORDERED: LANTUS PER UNIT CHARGE SQ ONE ×3 (08:00→13:00)
[2022-05-11] MEDS ORDERED: POTASSIUM PHOS 3 MMOL/1 ML INFUSION IV STA (08:11)
[2022-05-11] MEDS ORDERED: POTASSIUM PHOSPHATE 21 MMOL in SODIUM CHLORIDE 0.9% 500 ML IV ONE (08:30)
[2022-05-11] MEDS: LOSARTAN POTASSIUM 50 MG TAB PO SCH (09:12)
[2022-05-11] MEDS: ATORVASTATIN 40 MG TAB PO SCH (09:12)
[2022-05-11] MEDS: METOPROLOL SUCC 25MG EXT REL TAB PO SCH (09:13)
--- NOTE | 2022-05-11 09:26 | Surgery Consultation ---
Date of Consultation May 11, 2022 Assessment & Plan (1) Acute pancreatitis: pt is a 62 year-old male who was admitted to hospital for abdominal pain, DKA, IMP: gallstone pancreatitis, gallbladder sludge, acute cholecystitis ? Plan, base on H/P, labs and CT scan and U/S study, most likely gallstone caused pancreatitis, pt may has acute cholecystitis caused DKA, I recommend to do laparoscopic cholecystectomy, possible open, or cholangiogram, D/W benefits, risks and alternatives of the surgery, the risks - infection, bleeding, injury other organs, VA, DVT, stroke, incisional hernia, may need ERCP, and , pt understood, he agrees with surgery, he signed informed consent, I answered all questions, NPO, pre-op antibiotic, Supervising Physician Co-Signing Physician Notes Patient seen and examined. EMR reviewed. Discussed on multidisciplinary rounds as well as with family practice resident. Agree with assessment plan as noted. The patient is slowly improving clinically. We will transition off the insulin drip to subcutaneous insulin. He has had low-grade fevers. His initial procalcitonin was elevated however this is of unclear significance in the setting of acute renal failure. Discussed with GI. Will administer additional volume resuscitation now and follow the patient clinically. If he remains persistently febrile, would consider CT of the abdomen pelvis with contrast provided his kidney function holds to evaluate for pancreatic necrosis. Will discontinue Roman catheter. Get out of bed to chair as tolerated. Advancing diet as tolerated. PT and OT consultations requested. Patient's critical care issues appear improved at this point time. He is stable to transfer to the medical service. Critical care will sign off. Feel free to contact us with questions or concerns. History of Present Illness Reason for Consultation: pancreatitis Requesting Physician: Juan Miguel Guallpa MD Attending Physician: Juan Miguel Guallpa MD History of Present Illness CHIEF COMPLAINT: Confusion, DKA, hypothermia. HISTORY OF PRESENT ILLNESS: A 62-year-old male with past medical history significant for type 2 diabetes, uncontrolled diabetes, hyperlipidemia, history of acute pancreatitis, history of interstitial lung disease, history of emphysema, pulmonary nodules, hypertension, moderate aortic valve stenosis, history of TIA, GERD, chronic kidney disease, history of alcoholism, who lives at home with his son. He was brought in confused and found to be in DKA. As per the son, a couple of days ago, the patient had some vomiting. Yesterday, he was not feeling that great, and son went to work in the morning and when he came in around 10:00 in the night, he found him confused, naked on the floor, and he called EMS and brought in here. The patient is currently only alert and awake, seems lethargic, can tell his name, knows that he is in the hospital, but could not get much history from the patient. He says he has some abdominal pain. Denies any chest pain or headache. As per son, no recent fever, cough, or any other symptoms. Could not get much history. The patient was 32 degrees temperature, in [facility]. White count is 13. His point of care pH was 7.06, bicarbonate is 6. His sodium was 126 when came in, repeat is 131; his potassium was 6.9 when he came in, currently 5.9. His sugars were 1300. Troponin is 100.1. Procalcitonin 3.3. BioFire is negative. CT head is okay. CT of abdomen and pelvis in the preliminary report, cecum is dilated with gas to approximately 8.5 x 12 cm, of uncertain cause. Blood pressure is okay. He received 4 L of fluids made about 1lt of urine as per nursing staff. His creatinine on presentation was 4.5, repeat is 3.9. I ( Charlette Gonzalez Md ) got a call for consult pancreatitis, and gallbladder sludge, I reviewed pt's H/P, labs, CT scan and U/S study with pt, pt is still have some RUQ pain, pt denies fever, no chest pain, no cough, ALLERGIES: ERYTHROMYCIN BASE. PAST MEDICAL HISTORY: As mentioned above. PAST SURGICAL HISTORY: Carpal tunnel surgery, colonoscopy, and EGD with endoscopic ultrasound. MEDICATIONS: The patient is on Tylenol 500 mg p.o. q. 6 hours p.r.n., albuterol 2 puffs inhalation q. 4 hours p.r.n., atorvastatin 80 mg p.o. a.m., calcium carbonate 200 mg p.o. daily p.r.n., Plavix 75 mg p.o. daily, cyclobenzaprine 5 mg p.o. b.i.d. p.r.n., NovoLog FlexPen as directed, Lantus SoloStar 36 units subcutaneous at bedtime, losartan 50 mg p.o. daily, metformin 1000 mg p.o. b.i.d. with meals, metoprolol succinate 25 mg p.o. daily, multivitamin 1 tablet p.o. daily, naproxen 500 mg p.o. b.i.d. p.r.n., omeprazole 20 mg p.o. daily, oxycodone 5 mg p.o. q. 4 hours p.r.n., Spiriva inhaler one capsule inhalation daily. FAMILY HISTORY: Significant for mother has aortic stenosis, Crohn's disease; father has VA and CABG; sister has mental disorder; paternal grandmother has diabetes. SOCIAL HISTORY: Currently lives with his son. Smokes half pack a day as per the records. It looks like he quit alcoholism around 2000 as per [employer]. No drug use. REVIEW OF SYSTEMS: Unobtainable at this time. Allergies Allergy/AdvReac Type Severity Reaction Status Date / Time erythromycin base Allergy Mild Abdominal Verified 05/09/22 01:01 Pain Home Medications Medication Instructions Recorded Confirmed Type metformin 1,000 mg tablet 1,000 mg PO BIDM 03/11/19 05/09/22 History omeprazole 20 mg capsule,delayed 20 mg PO DAILYBB 03/11/19 05/09/22 History release insulin aspart U-100 100 unit/mL See Rx Instructions .Route .COMPLEX 06/17/20 05/09/22 History (3 mL) subcutaneous pen (Novolog Flexpen U-100 Insulin aspart) multivitamin 1 tab PO QAM 06/17/20 05/09/22 History metoprolol succinate 25 mg 25 mg PO DAILY 09/19/20 05/09/22 History tablet,extended release 24 hr acetaminophen 500 mg tablet 500 mg PO Q6H PRN Pain 08/01/21 05/09/22 History (Acetaminophen Extra Strength) insulin glargine 100 unit/mL (3 36 unit subcut HS 08/01/21 05/09/22 History mL) subcutaneous pen (Lantus Solostar U-100 Insulin) albuterol sulfate 90 mcg/actuation 2 puff inhalation Q4 PRN Shortness 12/01/21 05/09/22 History aerosol inhaler (Ventolin HFA) Of Breath Or Wheezing calcium carbonate 200 mg calcium 200 mg PO DAILY PRN Gi Upset 12/01/21 05/09/22 History (500 mg) chewable tablet (Calcium Antacid) losartan 50 mg tablet 50 mg PO DAILY 12/01/21 05/09/22 History clopidogrel 75 mg tablet 75 mg PO QAM #30 tabs 12/05/21 05/09/22 Rx oxycodone 5 mg tablet 5 mg PO Q4H PRN pain #5 tabs 12/05/21 05/09/22 Rx atorvastatin 80 mg tablet 80 mg PO QAM 05/09/22 05/09/22 History cyclobenzaprine 5 mg tablet 5 mg PO BID PRN Muscle Spasm 05/09/22 05/09/22 History multivitamin 1 tab PO QAM 05/09/22 05/09/22 History naproxen 500 mg tablet 500 mg PO BID PRN Pain 05/09/22 05/09/22 History tiotropium bromide 18 mcg capsule 1 cap inhalation DAILY 05/09/22 05/09/22 History with inhalation device (Spiriva with HandiHaler) Patient History Medical History Carpal tunnel syndrome Diabetes DKA (diabetic ketoacidoses) Hyperkalemia Hyperlipidemia Hypertension Irritable bowel syndrome Tobacco use Surgical History History of carpal tunnel surgery History of foot surgery Family History Other Diabetes Heart disease Social History Smoking Status: Current every day smoker Tobacco Type: Cigarettes Cigarettes Per Day: 5; Second Hand Exposure: Yes; Hx Alcohol Use: No Hx Substance Use: No Preferred Language: Lao Communication Ability: Unable Furnace Process Supervisor Required: No Beliefs That Will Affect Care: None marital status: Unknown Current Living Situation: Alone Other Information That Helps Us Care for You: No Feels Safe at Home: Yes Safety Concerns: Feels Safe At This Time Assistive Devices: None Physical Exam Constitutional: WD/WN, vitals as above Eyes: PERRL, conjunctivae normal, anicteric sclerae Neck: trachea midline, no thyromegaly Respiratory: normal respiratory effort, lungs clear to auscultation Cardiovascular: RRR, no murmur, no edema Gastrointestinal (Abdomen): soft, tenderness at RUQ, no rebound pain, no distend, BS +, Musculoskeletal: no cyanosis or clubbing, extremities motor strength 5/5 Neurologic: patellar DTR's 2+ bilat, sensation intact Psychiatric: A+Ox3, euthymic affect Results & Data ([facility]) Vital Signs (Past 12 Hours) Vital Signs Temp Pulse Pulse Resp BP Pulse Ox O2 Del Method 05/11/22 08:08 36.6 C 96 H 18 127/75 96 Room Air 05/11/22 03:49 36.7 C 91 H 17 126/67 95 Room Air 05/11/22 00:00 97 H 05/10/22 23:00 36.5 C 98 H 16 142/75 H 96 Room Air Laboratory Results Abnormal lab results 05/10/22 05/10/22 05/10/22 Range/Units 09:03 10:34 11:38 RBC (4.63-6.08) M/uL Hgb (14.0-18.0) g/dl Hct (40.1-51.0) % RDW Std Deviation (36.4-46.3) fL RDW Coeff of Mariah (11.5-14.5) % Plt Count (130-400) K/uL Neut # (Auto) (1.4-6.5) K/uL Lymph # (Auto) (1.2-3.4) K/uL VBG pH (7.36-7.41) Sodium (136-145) mmol/L Potassium (3.5-5.1) mmol/L Chloride (98-107) mmol/L BUN/Creatinine Ratio (10-20) Glucose (70-99(Fasting)) mg/dl POC Glucose 307 H* (70-99) mg/dl Calcium (8.5-10.1) mg/dl Phosphorus (2.5-4.9) mg/dl Total Protein 5.8 L D (6.0-8.3) gm/dl Albumin 2.8 L (3.4-5.0) gm/dl Lipase 152 H (11-82) U/L Procalcitonin (0-0.5) ng/ml 05/10/22 05/10/22 05/10/22 Range/Units 12:32 13:35 14:28 RBC (4.63-6.08) M/uL Hgb (14.0-18.0) g/dl Hct (40.1-51.0) % RDW Std Deviation (36.4-46.3) fL RDW Coeff of Mariah (11.5-14.5) % Plt Count (130-400) K/uL Neut # (Auto) (1.4-6.5) K/uL Lymph # (Auto) (1.2-3.4) K/uL VBG pH (7.36-7.41) Sodium (136-145) mmol/L Potassium (3.5-5.1) mmol/L Chloride (98-107) mmol/L BUN/Creatinine Ratio (10-20) Glucose (70-99(Fasting)) mg/dl POC Glucose 334 H* 259 H 235 H (70-99) mg/dl Calcium (8.5-10.1) mg/dl Phosphorus (2.5-4.9) mg/dl Total Protein (6.0-8.3) gm/dl Albumin (3.4-5.0) gm/dl Lipase (11-82) U/L Procalcitonin (0-0.5) ng/ml 05/10/22 05/10/22 05/10/22 Range/Units 15:31 16:29 17:29 RBC (4.63-6.08) M/uL Hgb (14.0-18.0) g/dl Hct (40.1-51.0) % RDW Std Deviation (36.4-46.3) fL RDW Coeff of Mariah (11.5-14.5) % Plt Count (130-400) K/uL Neut # (Auto) (1.4-6.5) K/uL Lymph # (Auto) (1.2-3.4) K/uL VBG pH (7.36-7.41) Sodium (136-145) mmol/L Potassium (3.5-5.1) mmol/L Chloride (98-107) mmol/L BUN/Creatinine Ratio (10-20) Glucose (70-99(Fasting)) mg/dl POC Glucose 228 H 191 H 169 H (70-99) mg/dl Calcium (8.5-10.1) mg/dl Phosphorus (2.5-4.9) mg/dl Total Protein (6.0-8.3) gm/dl Albumin (3.4-5.0) gm/dl Lipase (11-82) U/L Procalcitonin (0-0.5) ng/ml 05/10/22 05/10/22 05/11/22 Range/Units 20:53 23:51 03:43 RBC (4.63-6.08) M/uL Hgb (14.0-18.0) g/dl Hct (40.1-51.0) % RDW Std Deviation (36.4-46.3) fL RDW Coeff of Mariah (11.5-14.5) % Plt Count (130-400) K/uL Neut # (Auto) (1.4-6.5) K/uL Lymph # (Auto) (1.2-3.4) K/uL VBG pH (7.36-7.41) Sodium (136-145) mmol/L Potassium (3.5-5.1) mmol/L Chloride (98-107) mmol/L BUN/Creatinine Ratio (10-20) Glucose (70-99(Fasting)) mg/dl POC Glucose 285 H 229 H 204 H (70-99) mg/dl Calcium (8.5-10.1) mg/dl Phosphorus (2.5-4.9) mg/dl Total Protein (6.0-8.3) gm/dl Albumin (3.4-5.0) gm/dl Lipase (11-82) U/L Procalcitonin (0-0.5) ng/ml 05/11/22 05/11/22 05/11/22 Range/Units 06:50 06:50 06:50 RBC 4.44 L (4.63-6.08) M/uL Hgb 13.7 L (14.0-18.0) g/dl Hct 39.2 L (40.1-51.0) % RDW Std Deviation 47.4 H (36.4-46.3) fL RDW Coeff of Mariah 14.7 H (11.5-14.5) % Plt Count 85 L (130-400) K/uL Neut # (Auto) 6.57 H (1.4-6.5) K/uL Lymph # (Auto) 1.04 L (1.2-3.4) K/uL VBG pH 7.49 H (7.36-7.41) Sodium 148 H (136-145) mmol/L Potassium 3.2 L (3.5-5.1) mmol/L Chloride 115 H (98-107) mmol/L BUN/Creatinine Ratio 23.9 H (10-20) Glucose 128 H (70-99(Fasting)) mg/dl POC Glucose (70-99) mg/dl Calcium 8.2 L (8.5-10.1) mg/dl Phosphorus 1.5 L* (2.5-4.9) mg/dl Total Protein (6.0-8.3) gm/dl Albumin (3.4-5.0) gm/dl Lipase (11-82) U/L Procalcitonin (0-0.5) ng/ml 05/11/22 Range/Units 06:50 RBC (4.63-6.08) M/uL Hgb (14.0-18.0) g/dl Hct (40.1-51.0) % RDW Std Deviation (36.4-46.3) fL RDW Coeff of Mariah (11.5-14.5) % Plt Count (130-400) K/uL Neut # (Auto) (1.4-6.5) K/uL Lymph # (Auto) (1.2-3.4) K/uL VBG pH (7.36-7.41) Sodium (136-145) mmol/L Potassium (3.5-5.1) mmol/L Chloride (98-107) mmol/L BUN/Creatinine Ratio (10-20) Glucose (70-99(Fasting)) mg/dl POC Glucose (70-99) mg/dl Calcium (8.5-10.1) mg/dl Phosphorus (2.5-4.9) mg/dl Total Protein (6.0-8.3) gm/dl Albumin (3.4-5.0) gm/dl Lipase (11-82) U/L Procalcitonin 0.75 H (0-0.5) ng/ml Diagnostic Findings S gallbladder HISTORY: 62 years-old Male acute pancreatitis, r/o cholelithiasis acute right upper quadrant abdominal pain COMPARISON: CT abdomen and pelvis 05/09/2022 TECHNIQUE: Multiple real-time sonographic images of the abdominal right upper quadrant were obtained assessing grayscale appearance and color flow FINDINGS: The pancreas is mostly obscured by bowel gas. The liver measures 16.67 m in length and is unremarkable. Trace free fluid within the upper abdomen. Mild gallbladder distention with biliary sludge. No shadowing cholelithiasis or gallbladder wall thickening. Sonographic Butler sign was not reported. Normal common bile duct, 4 mm. The imaged right kidney is unremarkable without hydronephrosis. IMPRESSION: 1. Gallbladder distention with biliary sludge. No cholelithiasis or gallbladder wall thickening identified to suggest acute cholecystitis. 2. No biliary ductal dilation. 3. Trace free fluid of the upper abdomen, likely related to the acute pancreatitis described on yesterday's CT exam. CT OF THE ABDOMEN AND PELVIS WITHOUT CONTRAST CLINICAL HISTORY: Abdominal pain, AMS, ARF, DKA. COMPARISON STUDY: CT of the abdomen and pelvis March 23, 2022. TECHNIQUE: Axial images of the abdomen and pelvis were obtained without IV contrast. Images were reviewed in the axial, sagittal, and coronal planes. Automated exposure control was utilized for the study. A dose lowering technique was utilized adhering to the principles of ALARA. FINDINGS: Previously described nodules within the lower lungs are obscured on this exam due to respiratory motion artifact. Lower lung groundglass opacities are noted. There is also suspected underlying interstitial lung disease with mild bronchiectasis and subpleural reticulation. Evaluation of the abdomen and pelvis is suboptimal on this unenhanced exam. No pneumatosis, free air or portal venous gas is present. Unenhanced images of the liver, spleen, adrenal glands and kidneys are unremarkable. There is no hydronephrosis. Bilateral perinephric stranding has decreased. There is suggestion of mild stranding adjacent to the pancreas. No peripancreatic fluid collection is present. No biliary or pancreatic ductal dilatation is identified on this exam. There is no pericholecystic infiltration. Moderate amount of stool within the colon and rectum is present. Cecum is moderately distended. However, there is no evidence for a bowel obstruction or volvulus. No lymphadenopathy is present. No acute fracture or suspicious lesion within the visualized skeletal structures is identified. IMPRESSION: 1. Subtle stranding adjacent to the pancreas. This favors acute pancreatitis and could be correlated with serum lipase. This finding will be called/faxed to ordering provider at time of dictation. 2. Cecal distention without evidence for an obstruction. No volvulus. Moderate amount stool within the colon and rectum. 3. Groundglass opacities within the lower lungs. These may be atelectatic. However, an infectious process could appear similar. 4. No urinary calculi. No hydronephrosis. Distended bladder. ACT 112: Negative or not required by law.
--- NOTE | 2022-05-11 09:34 | Anesthesiology Consultation ---
Date of Service May 11, 2022 Assessment & Plan (1) Encounter for pre-operative examination: Chart Review Chart Review: Acceptable Risk for Surgery and Patient NOT seen in Pre Admission Testing Consults Requested none History Surgery Operation Date: 05/11/22 15:00 Proposed Procedures p Laparoscopic Cholecystectomy - Charlette Gonzalez MD Height/Weight Height: 5 ft 9 in Weight: 64.8 kg Allergies Allergy/AdvReac Type Severity Reaction Status Date / Time erythromycin base Allergy Mild Abdominal Verified 05/09/22 01:01 Pain Medications Home Medications Medication Instructions Recorded Confirmed Last Taken metformin 1,000 mg tablet 1,000 mg PO BIDM 03/11/19 05/09/22 08/01/21 omeprazole 20 mg capsule,delayed 20 mg PO DAILYBB 03/11/19 05/09/22 06/17/20 release insulin aspart U-100 100 unit/mL See Rx Instructions .Route .COMPLEX 06/17/20 05/09/22 06/17/20 (3 mL) subcutaneous pen (Novolog 4 units Flexpen U-100 Insulin aspart) multivitamin 1 tab PO QAM 06/17/20 05/09/22 06/17/20 metoprolol succinate 25 mg 25 mg PO DAILY 09/19/20 05/09/22 08/01/21 tablet,extended release 24 hr acetaminophen 500 mg tablet 500 mg PO Q6H PRN Pain 08/01/21 05/09/22 Unknown (Acetaminophen Extra Strength) insulin glargine 100 unit/mL (3 36 unit subcut HS 08/01/21 05/09/22 Unknown mL) subcutaneous pen (Lantus Solostar U-100 Insulin) albuterol sulfate 90 mcg/actuation 2 puff inhalation Q4 PRN Shortness 12/01/21 05/09/22 Unknown aerosol inhaler (Ventolin HFA) Of Breath Or Wheezing calcium carbonate 200 mg calcium 200 mg PO DAILY PRN Gi Upset 12/01/21 05/09/22 Unknown (500 mg) chewable tablet (Calcium Antacid) losartan 50 mg tablet 50 mg PO DAILY 12/01/21 05/09/22 Unknown clopidogrel 75 mg tablet 75 mg PO QAM #30 tabs 12/05/21 05/09/22 Unknown oxycodone 5 mg tablet 5 mg PO Q4H PRN pain #5 tabs 12/05/21 05/09/22 Unknown atorvastatin 80 mg tablet 80 mg PO QAM 05/09/22 05/09/22 Unknown cyclobenzaprine 5 mg tablet 5 mg PO BID PRN Muscle Spasm 05/09/22 05/09/22 Unknown multivitamin 1 tab PO QAM 05/09/22 05/09/22 Unknown naproxen 500 mg tablet 500 mg PO BID PRN Pain 05/09/22 05/09/22 Unknown tiotropium bromide 18 mcg capsule 1 cap inhalation DAILY 05/09/22 05/09/22 Unknown with inhalation device (Spiriva with HandiHaler) Active Medications Generic Name Dose Route Start Last Admin Trade Name Freq PRN Reason Stop Dose Admin Atorvastatin Calcium 80 mg 05/09/22 09:00 05/11/22 09:12 Atorvastatin 40 Mg Tab PO 06/08/22 08:59 80 mg QAM NELI Administration Clopidogrel Bisulfate 75 mg 05/09/22 09:00 05/10/22 08:37 Clopidogrel Bisulfate 75 Mg Tab PO 06/08/22 08:59 75 mg QAM NELI Administration Heparin Sodium (Porcine) 5,000 units 05/10/22 21:00 05/10/22 21:11 Heparin Sod 5,000 Unit/0.5 Ml Vial SQ 06/09/22 20:59 5,000 units Q12 NELI Administration Lactated Ringer's 1,000 mls @ 80 mls/hr 05/10/22 11:30 05/11/22 03:59 Lr IV 06/09/22 11:29 80 mls/hr .[id number] NELI Administration Potassium Phosphate 21 mmol/ 507 mls @ 145 mls/hr 05/11/22 08:30 05/11/22 09:55 Sodium Chloride IV 05/11/22 11:59 145 mls/hr ONE ONE Administration Insulin Glargine 0 units 05/10/22 21:00 05/10/22 21:11 Lantus Per Unit Charge SQ 06/09/22 20:59 20 units HS NELI Administration Protocol Losartan Potassium 50 mg 05/10/22 10:45 05/11/22 09:12 Losartan Potassium 50 Mg Tab PO 06/09/22 10:44 50 mg QAM NELI Administration Metoprolol Succinate 25 mg 05/10/22 10:45 05/11/22 09:13 Metoprolol Succ 25mg Ext Rel Tab PO 06/09/22 10:44 25 mg QAM NELI Administration Multivitamins 1 tab 05/09/22 09:00 05/10/22 08:37 Multivitamin Tab PO 06/08/22 08:59 1 tab QAM NELI Administration Pantoprazole Sodium 40 mg 05/10/22 10:45 05/10/22 11:33 Pantoprazole 40 Mg Tab PO 06/09/22 10:44 40 mg QAM NELI Administration Umeclidinium [facility] 1 puffs 05/09/22 09:00 05/10/22 08:38 Umeclidinium [facility] 62.5mcg/Blister 7 Puffs/Inhaler INH 06/08/22 08:59 1 puffs DAILY NELI Administration Past Medical History Medical History (Updated 05/11/22 @ 09:54 by Yoshi Ward MD) Carpal tunnel syndrome Diabetes DKA (diabetic ketoacidoses) Elevated troponin Hyperkalemia Hyperlipidemia Hypertension Irritable bowel syndrome Metabolic acidosis, increased anion gap Tobacco use Uncontrolled type 2 DM with hyperosmolar nonketotic hyperglycemia Patient admitted to ICU 05/09/22 in AM after being found down at home and found to be in DKA. Per ICU note, patient with metabolic encephalopathy, COPD, AFR, DMII with DKA and hyperkalemia. Hospitalist note 05/10/22: Mental status appears back to baseline, blood glucose improving, creatinine back to baseline, hyponatremia has resolved, elevated troponin likely demand ischemia in setting of severe DKA. Peaked T waves on admission due to hyperkalemia. Potassium improving (low on 05/11/22). Insulin ggt discontinued as of 05/11/22. General surgery note: Acute pancreatitis: IMP: Gallstone pancreatitis, gallbladder sludge, possible acute cholecystitis. Past Family History Family History Other Diabetes Heart disease Past Surgical History Surgical History History of carpal tunnel surgery History of foot surgery Social History Smoking Status: Current every day smoker tobacco type: cigarettes Smoking cigarettes per day: 5 Hx Alcohol Use: No Hx Substance Use: No substance use type: does not use Physical Exam Vital Signs Last Vital Signs Temp 36.6 C 05/11/22 08:08 Pulse 96 H 05/11/22 08:08 Resp 18 05/11/22 08:08 BP 127/75 05/11/22 08:08 Pulse Ox 96 05/11/22 08:08 O2 Del Method 05/11/22 08:08 Testing Laboratory Results 05/11/22 06:50 05/11/22 06:50 Hemoglobin A1c 14.3 % (4.5-5.6) H 05/09/22 03:43 Urine Color Yellow 05/09/22 01:36 Urine Appearance Clear (Clear) 05/09/22 01:36 Urine pH 5.0 (4.5-7.5) 05/09/22 01:36 Ur Specific [place] 1.022 (1.000-1.030) 05/09/22 01:36 Urine Protein 2+ (Negative) H 05/09/22 01:36 Urine Glucose (UA) 3+ (Negative) H 05/09/22 01:36 Urine Ketones 1+ (Negative) H 05/09/22 01:36 Urine Nitrite Negative (Negative) 05/09/22 01:36 Ur Leukocyte Esterase Negative (Negative) 05/09/22 01:36 Urine WBC (Auto) 1-5 /hpf (0-5) 05/09/22 01:36 Urine RBC (Auto) 5-10 /hpf (0-4) H 05/09/22 01:36 U Hyaline Cast (Auto) 5-10 /lpf (0-5) H 05/09/22 01:36 U Epithel Cells (Auto) 20-30 /lpf (0-5) H 05/09/22 01:36 Urine Bacteria (Auto) Negative (Negative) 05/09/22 01:36 05/09/22 00:04 Aerobic Blood Culture - Preliminary Blood No growth in Aerobic bottle after 48 hours. Anaerobic Blood Culture - Final 05/08/22 23:26 Aerobic Blood Culture - Preliminary Blood No growth in Aerobic bottle after 48 hours. Anaerobic Blood Culture - Preliminary No growth in Anaerobic bottle after 48 hours. 05/11/22 05/10/22 03:43 23:51 POC Glucose 204 H 229 H Patient receiving potassium riders 05/11/22. Electrocardiogram Date: 05/09/22 DICTATED BY:Ramu Villa MD Test Reason : Blood Pressure : / mmHG Vent. Rate : 105 BPM Atrial Rate : 105 BPM P-R Int : 132 ms QRS Dur : 098 ms QT Int : 380 ms P-R-T Axes : 066 070 016 degrees QTc Int : 502 ms Sinus tachycardia Possible Left atrial enlargement Anterior infarct , age undetermined Abnormal ECG When compared with ECG of 09-MAY-2022 05:39, QRS duration has decreased T wave inversion more evident in Inferior leads Nonspecific T wave abnormality now evident in Lateral leads Confirmed by Ramu Villa ([id number]) on 05/10/2022 2:09:19 PM Echocardiogram Date: 05/09/22 LV systolic function is normal. Moderate LVH Severe valvular Compared with echo 11/25/21, no significant change. EF 65-70% Other Testing 05/09/22: US gallbladder HISTORY: 62 years-old Male acute pancreatitis, r/o cholelithiasis acute right upper quadrant abdominal pain COMPARISON: CT abdomen and pelvis 05/09/2022 TECHNIQUE: Multiple real-time sonographic images of the abdominal right upper quadrant were obtained assessing grayscale appearance and color flow FINDINGS: The pancreas is mostly obscured by bowel gas. The liver measures 16.67 m in length and is unremarkable. Trace free fluid within the upper abdomen. Mild gallbladder distention with biliary sludge. No shadowing cholelithiasis or gallbladder wall thickening. Sonographic Butler sign was not reported. Normal common bile duct, 4 mm. The imaged right kidney is unremarkable without hydronephrosis. IMPRESSION: 1. Gallbladder distention with biliary sludge. No cholelithiasis or gallbladder wall thickening identified to suggest acute cholecystitis. 2. No biliary ductal dilation. 3. Trace free fluid of the upper abdomen, likely related to the acute pancreatitis described on yesterday's CT exam
[2022-05-11] MEDS ORDERED: ceFAZolin 2000MG 2,000 MG/15 ML SYR IV ONE (09:37)
--- NOTE | 2022-05-11 09:37 | History & Physical Bridge Note ---
Date of Service May 11, 2022 History & Physical Bridge Note I have examined the patient, reviewed the History & Physical and in the interval since the performance of the History & Physical I have noted the following changes of clinical significance: no changes noted Supervising Physician Co-Signing Physician Notes Patient seen and examined. EMR reviewed. Discussed on multidisciplinary rounds as well as with family practice resident. Agree with assessment plan as noted. The patient is slowly improving clinically. We will transition off the insulin drip to subcutaneous insulin. He has had low-grade fevers. His initial p rocalcitonin was elevated however this is of unclear significance in the setting of acute renal failure. Discussed with GI. Will administer additional volume resuscitation now and follow the patient clinically. If he remains persistently febrile, would consider CT of the abdomen pelvis with contrast provided his kidney function holds to evaluate for pancreatic necrosis. Will discontinue Roman catheter. Get out of bed to chair as tolerated. Advancing diet as tolerated. PT and OT consultations requested. Patient's critical care issues appear improved at this point time. He is stable to transfer to the medical service. Critical care will sign off. Feel free to contact us with questions or concerns.
[2022-05-11] MEDS: POTASSIUM CHLORIDE / WTR 10 MEQ/100 ML PLCT IV SCH ×2 (10:00→12:08)
[2022-05-11] MEDS: PANTOprazole 40 MG TAB PO SCH (10:01)
[2022-05-11] MEDS: MULTIVITAMIN TAB PO SCH (10:01)
[2022-05-11] MEDS: HEPARIN SOD 5,000 UNIT/0.5 ML VIAL SQ SCH (10:01)
[2022-05-11] MEDS: CLOPIDOGREL BISULFATE 75 MG TAB PO SCH (10:01)
[2022-05-11] MEDS: UMECLIDINIUM BROMIDE 62.5MCG/BLISTER 7 PUFFS/INHALER INH SCH (10:02)
--- NOTE | 2022-05-11 10:03 | Pharmacy Report ---
Pharmacy Glycemic Short Note 2 - Date of Service May 11, 2022 - Glycemic Short BSG Results (Last 24 hours): 05/10/22 05/10/22 05/10/22 10:34 12:32 13:35 Glucose POC Glucose 307 H* 334 H* 259 H 05/10/22 05/10/22 05/10/22 14:28 15:31 16:29 Glucose POC Glucose 235 H 228 H 191 H 05/10/22 05/10/22 05/10/22 17:29 20:53 23:51 Glucose POC Glucose 169 H 285 H 229 H 05/11/22 05/11/22 03:43 06:50 Glucose 128 H POC Glucose 204 H OUTPATIENT ANTIDIABETIC REGIMEN: * Non-adherence likely * Lantus 36 units SC HS * Novolog 02/13/10 units TIDM with additional correctional insulin of 25 mg/dL/unit * Metformin * HbA1c 14.3% on 05/09/22 ASSESSMENT: 05/11/22: * Insulin drip was discontinued yesterday evening. BSGs trended up at HS but after receiving HS dose of Lantus (20 units), they trended down again overnight. * Fasting BSG today was 128 mg/dl. * Patient was NPO this AM for lap cholecystectomy today. But surgery cancelled later. * AM dose of Lantus was moved to noon, plan is to combine Lantus AM and PM doses into single dose at HS tomorrow to match home regimen. Added HS Lantus on a scale. 05/10/22 * Patient clinically improving, labs normal, blood sugar still elevated, tighten goal range for insulin drip, change IV Fluids from D5 to 1/2NS, and give another dose of basal insulin, anticipating stopping drip this afternoon/evening. 05/09/22 * 62 yo M admitted with confusion 2nd mixed HHS and DKA picture. Low CO2 and pH, elevated anion gap, (indicative of DKA) plus effective osmolality >320 (indicative of HHS) * Discussed fluids at ICU rounds - would normally add in potassium to fluids at this time but given stable potassium and OMARI along with some potassium in planned 3L LR bolus, but will hold off for now with plans for provider to reassess at next lab draw. Also discussed corrected sodium being elevated with eventual need to change to a fluid with less Na content. Again, provider to reassess at next lab draw. Ongoing aggressive fluid resuscitation planned. * Discussed plan for transition of insulin drip at ICU rounds - will not transition now. However, OK to provide very low dose Lantus to help with eventual transition. * HHS and DKA will both need to be corrected / addressed prior to transition of drip and reduction of goal range - improvement in mental status hopefully back to baseline (for HHS) along with improvement in CO2, anion gap (for DKA) will both be necessary. Hopefully these will be achieved by tomorrow AM and transition can be attempted at that time PLAN FOR INPATIENT GLYCEMIC CONTROL: * Hold outpatient oral diabetes medications * Basal insulin * Lantus 15 units SC x1 at noon * Lantus SC HS - 15 units for BSG less than 180, 20 units for BSG >/= 180 * Bolus insulin * NovoLog per scale ACHS or Q6h * Correction Factor 25 mg/dl/unit * Carb Ratio 1 unit for every 8 gm of carb consumed
--- NOTE | 2022-05-11 11:33 | Gastroenterology Progress Note ---
Date of Service May 11, 2022 Assessment & Plan (1) Acute pancreatitis: Plan May decrease IV fluids. OK for clear liquids po. Continue antiemetics, analgesics. Increase ambulation and decrease narcotics. Laxatives. Admission and Anticipated Discharge Date Admission Date: May 09, 2022 Supervising Physician Co-Signing Physician Notes Attending attestation I have seen, examined this patient, and agree with the findings and above by our mid-level provider GREGORIA Carias, with the following additions: - Patient doing better - BM's now - CT scan shows expected progression of severe pancreatitis - Continue supportive care - Advance diet as tolerated Subjective 62 yr old male w DM2, hx increased ETOH (today states abstaines except drank a small amt a month ago) Admitted on 05/09 having been unconscious. Tx for DKA, acute pancreatitis. CT w pancreatitis. No LFT elevation Most recent temp 11 aam yesterday, 37.7 This morning much more awake, alert. Is fully oriented, able to provide details regarding his illness. Passed BMs yesterday w enemas, passing gas thus far this morning. States pain much better but w mild distension on exam and is tender in both lower quadrants. Review of Systems Review of Systems: ROS: Gen: + weakness improving, No fevers, weight loss Eyes: No eye redness, or pain, no recent vision changes Resp: No SOB, no cough Cardio: No palpitations/irregular beats, no chest pain GI: + still w bilat lower abd pain : Denies pain on urination Skin: No jaundice, itching or new rashes Total of 12 systems reviewed, all others negative Physical Exam Constitutional: + ill appearing and average body habitus; no acute distress Eyes: PERRL, conjunctivae normal, anicteric sclerae ENMT: external ear and nose normal, oropharynx normal Neck: trachea midline, no thyromegaly Respiratory: normal respiratory effort; no cough Auscultation: + diminished lung sounds; no crackles and no wheezes Cardiovascular: Rate/Rhythm: regular rate and regular rhythm Heart Sounds: + murmur (3/6 systolic murmur loudest at the upper RSB) Gastrointestinal (Abdomen): Inspection/Auscultation: + abdomen distended (mild) Percussion/Palpation: + abdomen tender (moderate, biat, lower quadrants) and abdomen soft; no abdominal mass Skin: normal turgor; no rashes, no lesions and no jaundice Neurologic: PERRL, EOMI, accommodation nl, no face palsy, no dysarthria Psychiatric: Orientation: alert Lymphatic: no cervical or axillary lymphadenopathy Results & Data ([facility]) Vital Signs (Past 12 Hours) Vital Signs Temp Pulse Pulse Resp BP Pulse Ox O2 Del Method 05/11/22 10:38 36.6 C 93 H 20 138/75 96 05/11/22 08:08 36.6 C 96 H 18 127/75 96 Room Air 05/11/22 03:49 36.7 C 91 H 17 126/67 95 Room Air 05/11/22 00:00 97 H Laboratory Results WBC 8, Hb 13.7, HCT 39.2, PLT S 85, NA 148, K3.2, CL 115, CO2 29, BUN 21, CR 0.8, glucose 204, phosphorus 1.5.
--- NOTE | 2022-05-11 12:03 | CT Scan Report ---
ABDOMEN AND PELVIS CT WITHOUT CONTRAST CT DOSE: 392.30 mGycm HISTORY: Acute generalized abdominal pain in a patient with acute pancreatitis, abdominal pain, ff up acute pancreatitis TECHNIQUE: Multiaxial CT images of the abdomen and pelvis were performed without contrast. A dose lo wering technique was utilized adhering to the principles of ALARA. COMPARISON STUDY: CT abdomen and pelvis 05/09/2022, 03/23/2022. FINDINGS: The heart is upper limits of normal in size. Coronary artery and aortic annular calcificati ons. Trace pleural effusions. Intralobular septal thickening with groundglass densities of the lung b ases redemonstrated. Mild bronchiectasis. Stable 7 mm left lower lobe and 5 mm right middle lobe pulm onary nodules. No pneumatosis or pneumoperitoneum. The unenhanced spleen is unremarkable. Thickening of the adrenal glands suggestive of hyperplasia. Mi ld interstitial and peripancreatic inflammation redemonstrated. Unchanged subcentimeter pancreatic ca lcifications suggestive of chronic pancreatitis. No acute peripancreatic fluid collection. Distended gallbladder with mild wall thickening. No cholelithiasis identified. Unremarkable liver. Small volume of abdominal pelvic ascites has progressed from the prior study. Mild nonspecific bilateral perinephric stranding. Punctate nonobstructing calculus of the interpolar left kidney. No hydronephrosis. A Roman catheter is present within a decompressed urinary bladder. Ur inary bladder wall thickening with intraluminal air. Prostamegaly. Atherosclerosis of the aorta witho ut aneurysm. No intra-articular loose body. Mild wall thickening of the distal stomach and duodenum, likely reactive. Scattered large and small b owel air-fluid levels. Small bowel loops measure up to 3.3 cm. Moderate rectal fecal retention. Circu mferential wall thickening of the sigmoid colon and distal descending colon is new from prior. Mild w all thickening involves a few loops of small bowel within the abdominal right lower quadrant. The ahny endix is not definitively seen. IMPRESSION: 1. Worsening findings of acute pancreatitis. No acute peripancreatic fluid collection. 2. Small pleural effusions with new trace abdominal and pelvic ascites. 3. Distended gallbladder without cholelithiasis. 4. Moderate fecal retention. There is mild wall thickening involving several loops of large and small bowel along with mildly dilated small bowel within the central abdomen. Findings may be secondary to fluid overload with ileus. A nonspecific enterocolitis could appear similarly. 5. Punctate left renal calculus. 6. Additional findings as above. ACT 112: Negative or not required by law. The above report was generated using voice recognition software. It may contain grammatical, syntax o r spelling errors. Dictated: 05/11/2022 11:16 AM Transcribed: 05/11/2022 11:46 AM Maureen [id number] [email or web address] Electronically signed by: Reece Catalan M.D. 05/11/2022 12:02 PM
--- NOTE | 2022-05-11 14:54 | Nephrology Progress Note ---
Date of Service May 11, 2022 Assessment & Plan Admission and Anticipated Discharge Date Admission Date: May 09, 2022 Subjective Subjective S--Rapid improvement in all labs. making good amount of urine. Some abd pain but is less now. Now allowed clear diet. PHYSICAL EXAMINATION: GENERAL: A middle-aged white male who is very somnolent. He can barely open his eyes and at the most mumble a few words, unable to answer any questions. Moving all 4 extremities. CHEST: Bilateral decreased breath sounds secondary to poor inspiratory effort. CARDIOVASCULAR: S1 and S2 regular, tachycardic. Systolic murmur heard 2/6. ABDOMEN: Soft, nontender, nondistended. EXTREMITIES: Show no edema. SKIN: Shows no rash, although his face does appear very flushed and erythematous. LABORATORY TEST: Phos low k low na up. Creat baseline ASSESSMENT AND PLAN: A 62-year-old male with uncontrolled diabetes, now admitted with diabetic ketoacidosis with an admission glucose of more than 1300 and was associated with acute renal failure, hyperkalemia, and pseudohyponatremia. Acute renal failure: Fortunately, the creatinine is coming down really fast with increasing urine output. Now at baseline.Most of his electrolytes are already resolved with IV fluid and the insulin drip. Hypernatremia---Stop RL and use 1/2 NS. Hypokalemia and low Phos--Already got kphos so should be better. Results & Data ([facility]) Vital Signs (Past 12 Hours) Vital Signs Temp Pulse Pulse Resp BP Pulse Ox O2 Del Method 05/11/22 08:00 95 H 05/11/22 10:38 36.6 C 93 H 20 138/75 96 05/11/22 08:08 36.6 C 96 H 18 127/75 96 Room Air 05/11/22 03:49 36.7 C 91 H 17 126/67 95 Room Air
[2022-05-11] MEDS: SODIUM CHLORIDE 0.45 % 1,000 ML IV SCH (15:07)
--- NOTE | 2022-05-11 15:28 | Hospitalist Progress Note ---
Date of Service May 11, 2022 Assessment & Plan (1) DKA (diabetic ketoacidosis): Plan: per Dr. Mo's notes with addendum: DKA - likely component of HHS as well with AMS but can also be seen with severe DKA -From acute pancreatitis: - BG >1000 on admission, Bicarb 7, AG 32, k 6.6. pH 7 - HbA1c 14% on admission - started on empiric abx for hypothermia - aggressive IVF - insulin drip - FSG q1h while on insulin drip - when BG <250 and AG not closed - start D51/2NS - q4h BMP and VBG - ICU admission - care per ICU 05/11 Blood glucose improving Weaned off insulin drip Currently on Lantus and NovoLog Pharmacy glycemic control on board Continue to monitor closely (2) Acute pancreatitis: Plan: - Likely from gallbladder sludge - Patient denies drinking alcohol, last drink 4 months ago -Lipase much better - Abdominal pain improving CT abdomen/pelvis: 1. Worsening findings of acute pancreatitis. No acute peripancreatic fluid collection. 2. Small pleural effusions with new trace abdominal and pelvic ascites. 3. Distended gallbladder without cholelithiasis.\ 4. Moderate fecal retention. There is mild wall thickening involving several loops of large and small bowel along with mildly dilated small bowel within the central abdomen. Findings may be secondary to fluid overload with ileus. A nonspecific enterocolitis could appear similarly. 5. Punctate left renal calculus. -Discussed with GI service GI recommending to advance diet today to clear liquids Continue IV fluids Fever ultrasound showing gall bladder distention with sludge Evaluated by general surgery Recommend outpatient cholecystectomy after resolution of acute pancreatitis (3) OMARI (acute kidney injury): Plan: - likely due to profound volume depletion in severe DKA - IVF as above Creatinine back to baseline (4) Altered mental status: Plan: - likely encephalopathy secondary to DKA, acute pancreatitis, hypothermia - management as above 05/11 Seems to be back to baseline Monitor closely Fever -From acute pancreatitis? Afebrile since yesterday Procalcitonin trended down, almost normal No leukocytosis Repeat CT abdomen pelvis: No abscess Blood cultures: Negative No clear focus of infection at this point Will hold off on IV antibiotics but will monitor closely (5) Hypothermia: Plan: - likely in setting of severe DKA, volume depletion Resolved (6) Hyponatremia: Plan: Resolved (7) Metabolic acidosis, increased anion gap: Plan: - in setting of DKA - management as above (8) Hypertension: Plan: - will monitor for now given severe volume depletion - restart meds as tolerated (9) Elevated troponin: Plan: - likely demand ischemia in setting of severe DKA - peaked T waves on admission due to hyperkalemia - K improving with above management - trend ECG - no ischemic changes Disposition Pending PT/OT evaluation Usually lives at home with his son Admission and Anticipated Discharge Date Admission Date: May 09, 2022 Subjective Follow-up for acute pancreatitis, DKA, etc. Seen resting in bed, not in distress States that he still has some mild abdominal pain, but no nausea, fevers or chills No shortness of breath, chest pain, dizziness, palpitations Reevaluated in the afternoon Patient had a good bowel movement States abdominal pain is better Requesting to try clear liquid diet Review of Systems Review of Systems: all noted and negative except for above Physical Exam Physical Exam: General- oriented x 3, not in distress, speaks in sentences with no effort or accessory muscle use Eyes- anicteric Neck- no JVD Lungs- clear breath sounds bilaterally, no rales/wheezes Heart- normal rate, regular rhythm; no murmurs Abdomen- normal bowel sounds, nondistended, soft, mild abdominal tenderness Extremities- no pretibial edema, no calf tenderness Neuro- alert, oriented x 3; no gross focal neurologic deficits Skin- warm & dry Results & Data Results & Data ([facility]) Vital Signs (Past 12 Hours) Vital Signs Temp Pulse Pulse Resp BP Pulse Ox O2 Del Method 05/11/22 15:02 91 H 05/11/22 08:00 95 H 05/11/22 10:38 36.6 C 93 H 20 138/75 96 05/11/22 08:08 36.6 C 96 H 18 127/75 96 Room Air 05/11/22 03:49 36.7 C 91 H 17 126/67 95 Room Air all noted and reviewed including below (1) DKA (diabetic ketoacidosis) Diabetes mellitus complication detail: without coma Diabetes mellitus type: type 2 Qualified Code(s): E11.10 - Type 2 diabetes mellitus with ketoacidosis without coma
[2022-05-11 15:47] LABS: Calcium 8.1 mg/dl (8.5-10.1); Est GFR (African American) 94.4 ml/min; Est GFR (Non-African American) 81.4 ml/min; Phosphorus 2.1 mg/dl (2.5-4.9); Potassium 3.9 mmol/L (3.5-5.1)
[2022-05-11] MEDS: LANTUS PER UNIT CHARGE SQ SCH (20:35)
[2022-05-12] MEDS: SODIUM CHLORIDE 0.45 % 1,000 ML IV SCH ×2 (04:05→16:20)
[2022-05-12 06:28] LABS: Calcium 8.2 mg/dl (8.5-10.1); Creatinine Clr Calc Pharmacy 91.7 ml/min; Est GFR (African American) 110.3 ml/min; Est GFR (Non-African American) 95.2 ml/min; Magnesium 2.1 mg/dl (1.7-2.4); Phosphorus 2.1 mg/dl (2.5-4.9); Potassium 3.6 mmol/L (3.5-5.1)
--- NOTE | 2022-05-12 08:42 | Surgery Progress Note ---
Date of Service May 12, 2022 Assessment & Plan (1) Acute pancreatitis: Plan: Plan 62 year-old male presented to hospital after found unconscious by son found to be in DKA and have acute pancreatitis. CT scan yesterday showing worsening acute pancreatitis however no evidence of acute cholecystitis. T. bili and LFTS wnl, no leukocytosis. Plan: Given worsening acute pancreatitis and no evidence of acute cholecystitis, would recommend against cholecystectomy during this admission. Recommend continued medical management for acute pancreatitis Outpatient follow-up with DR. Gonzalez for outpatient laparoscopic cholecystectomy Low fat diet until cholecystectomy recommended Our services signing off, thank you for consultation. Dr. Gonzalez has seen and examined pt, agrees with above. Admission and Anticipated Discharge Date Admission Date: May 09, 2022 Subjective feeling slightly better today still having abdominal pain passing flatus and bowel movements tolerated clear liquids yesterday Physical Exam Constitutional: WD/WN, vitals as above cooperative; no acute distress and not ill appearing Respiratory: normal respiratory effort; no respiratory distress Gastrointestinal (Abdomen): Inspection/Auscultation: abdomen normal to inspection and + abdomen distended (mild distention) Percussion/Palpation: + abdomen tender (lower abdomen bilaterally) and abdomen soft; no guarding and abdomen not rigid Skin: no rashes, warm and dry no jaundice Psychiatric: Orientation: alert and oriented x 3 Results & Data ([facility]) Vital Signs (Past 12 Hours) Vital Signs Temp Pulse Pulse Resp BP Pulse Ox O2 Del Method 05/12/22 08:31 36.7 C 87 19 143/81 H 97 Room Air 05/11/22 23:00 86 05/12/22 02:36 36.6 C 89 16 159/84 H 97 Room Air 05/11/22 22:57 36.7 C 91 H 16 139/79 97 Room Air Laboratory Results 05/12/22 05/12/22 05/12/22 Range/Units 07:22 05:55 05:55 VBG pH 7.46 H (7.36-7.41) Sodium 146 H (136-145) mmol/L Potassium 3.6 (3.5-5.1) mmol/L Chloride 116 H (98-107) mmol/L Carbon Dioxide 24 (21-32) mmol/L Anion Gap 6 (3-11) BUN 16 (6-23) mg/dl Creatinine 0.84 (0.6-1.4) mg/dl Est Cr Clr Drug Dosing 91.7 ml/min Est GFR ( Amer) 110.3 ml/min Est GFR (Non-Af Amer) 95.2 ml/min BUN/Creatinine Ratio 19.0 (10-20) Glucose 146 H (70-99(Fasting)) mg/dl POC Glucose 112 H (70-99) mg/dl Calcium 8.2 L (8.5-10.1) mg/dl Phosphorus 2.1 L (2.5-4.9) mg/dl Magnesium 2.1 (1.7-2.4) mg/dl 05/11/22 05/11/22 05/11/22 Range/Units 20:01 15:47 14:25 VBG pH (7.36-7.41) Sodium 146 H (136-145) mmol/L Potassium 3.9 D (3.5-5.1) mmol/L Chloride 115 H (98-107) mmol/L Carbon Dioxide 27 (21-32) mmol/L Anion Gap 4 (3-11) BUN 20 (6-23) mg/dl Creatinine 1.00 (0.6-1.4) mg/dl Est Cr Clr Drug Dosing 72.0 ml/min Est GFR ( Amer) 94.4 ml/min Est GFR (Non-Af Amer) 81.4 ml/min BUN/Creatinine Ratio 20.0 (10-20) Glucose 205 H (70-99(Fasting)) mg/dl POC Glucose 196 H 193 H (70-99) mg/dl Calcium 8.1 L (8.5-10.1) mg/dl Phosphorus 2.1 L (2.5-4.9) mg/dl Magnesium (1.7-2.4) mg/dl 05/11/22 Range/Units 12:09 VBG pH (7.36-7.41) Sodium (136-145) mmol/L Potassium (3.5-5.1) mmol/L Chloride (98-107) mmol/L Carbon Dioxide (21-32) mmol/L Anion Gap (3-11) BUN (6-23) mg/dl Creatinine (0.6-1.4) mg/dl Est Cr Clr Drug Dosing ml/min Est GFR ( Amer) ml/min Est GFR (Non-Af Amer) ml/min BUN/Creatinine Ratio (10-20) Glucose (70-99(Fasting)) mg/dl POC Glucose 183 H (70-99) mg/dl Calcium (8.5-10.1) mg/dl Phosphorus (2.5-4.9) mg/dl Magnesium (1.7-2.4) mg/dl Diagnostic Findings ABDOMEN AND PELVIS CT WITHOUT CONTRAST CT DOSE: 392.30 mGycm HISTORY: Acute generalized abdominal pain in a patient with acute pancreatitis, abdominal pain, ff up acute pancreatitis TECHNIQUE: Multiaxial CT images of the abdomen and pelvis were performed without contrast. A dose lowering technique was utilized adhering to the principles of ALARA. COMPARISON STUDY: CT abdomen and pelvis 05/09/2022, 03/23/2022. FINDINGS: The heart is upper limits of normal in size. Coronary artery and aortic annular calcifications. Trace pleural effusions. Intralobular septal thickening with groundglass densities of the lung bases redemonstrated. Mild bronchiectasis. Stable 7 mm left lower lobe and 5 mm right middle lobe pulmonary nodules. No pneumatosis or pneumoperitoneum. The unenhanced spleen is unremarkable. Thickening of the adrenal glands suggestive of hyperplasia. Mild interstitial and peripancreatic inflammation redemonstrated. Unchanged subcentimeter pancreatic calcifications suggestive of chronic pancreatitis. No acute peripancreatic fluid collection. Distended gallbladder with mild wall thickening. No cholelithiasis identified. Unremarkable liver. Small volume of abdominal pelvic ascites has progressed from the prior study. Mild nonspecific bilateral perinephric stranding. Punctate nonobstructing calculus of the interpolar left kidney. No hydronephrosis. A Roman catheter is present within a decompressed urinary bladder. Urinary bladder wall thickening with intraluminal air. Prostamegaly. Atherosclerosis of the aorta without aneurysm. No intra-articular loose body. Mild wall thickening of the distal stomach and duodenum, likely reactive. Scattered large and small bowel air-fluid levels. Small bowel loops measure up to 3.3 cm. Moderate rectal fecal retention. Circumferential wall thickening of the sigmoid colon and distal descending colon is new from prior. Mild wall thickening involves a few loops of small bowel within the abdominal right lower quadrant. The appendix is not definitively seen. IMPRESSION: 1. Worsening findings of acute pancreatitis. No acute peripancreatic fluid collection. 2. Small pleural effusions with new trace abdominal and pelvic ascites. 3. Distended gallbladder without cholelithiasis. 4. Moderate fecal retention. There is mild wall thickening involving several loops of large and small bowel along with mildly dilated small bowel within the central abdomen. Findings may be secondary to fluid overload with ileus. A nonspecific enterocolitis could appear similarly. 5. Punctate left renal calculus. 6. Additional findings as above.
[2022-05-12] MEDS: INSULIN ASPART PER UNIT SC SCH ×4 (08:53→20:51)
[2022-05-12] MEDS: ATORVASTATIN 40 MG TAB PO SCH (08:55)
[2022-05-12] MEDS: METOPROLOL SUCC 25MG EXT REL TAB PO SCH (08:56)
[2022-05-12] MEDS: LOSARTAN POTASSIUM 50 MG TAB PO SCH (08:56)
[2022-05-12] MEDS: PANTOprazole 40 MG TAB PO SCH (08:56)
[2022-05-12] MEDS: MULTIVITAMIN TAB PO SCH (08:56)
[2022-05-12] MEDS: UMECLIDINIUM BROMIDE 62.5MCG/BLISTER 7 PUFFS/INHALER INH SCH (10:10)
[2022-05-12] MEDS: ACETAMINOPHEN 1,000 MG/100 ML VIAL IV PRN (11:11)
--- NOTE | 2022-05-12 11:21 | Gastroenterology Progress Note ---
Date of Service May 12, 2022 Assessment & Plan (1) Acute pancreatitis: Plan Would cont gentle IV hydration currently at 80/hr. . Clear liquids po today, if tolerates and continues to improve may advance to low fat, regular consistency diet this weekend. Continue antiemetics, analgesics. Increase ambulation and decrease narcotics. Eventual OP cholecystectomy. Eventual OP EUS. Our office will contact him to arrange. GI will sign off. Please recall if worsening symptoms. Admission and Anticipated Discharge Date Admission Date: May 09, 2022 Supervising Physician Co-Signing Physician Notes Attending attestation I have seen, examined this patient, and agree with the findings and above by our mid-level provider GREGORIA Carias, with the following additions: - Patient doing better - BM's now - CT scan shows expected progression of severe pancreatitis - Continue supportive care - Advance diet as tolerated - Will sign off - Etiology possibly bilary or hypertriglyceridemia, TAG's should be checked non- fasting and treated as outpt if high Subjective Continued slow improvement in energy/strength and decrease in lower abd pain today. Passed BMs yesterday and passing flatus today. Review of Systems Review of Systems: ROS: Gen: +weakness improving, most recent fever48 hrs ago Eyes: No eye redness, or pain, no recent vision changes Resp: No SOB, no cough Cardio: No palpitations/irregular beats, no chest pain, no edema GI: As per HPI, otherwis (-) : Denies pain on urination Skin: No jaundice, itching or new rashes Abd: A total of 12 systems reviewed, all others (-). Physical Exam Constitutional: + ill appearing and average body habitus; no acute distress Eyes: PERRL, conjunctivae normal, anicteric sclerae ENMT: external ear and nose normal, oropharynx normal Neck: trachea midline, no thyromegaly Respiratory: normal respiratory effort; no cough Auscultation: lungs clear to auscultation bilaterally Cardiovascular: Rate/Rhythm: regular rate and regular rhythm Heart Sounds: + murmur (3/6 systolic murmur loudest at the upper RSB) Gastrointestinal (Abdomen): Inspection/Auscultation: + abdomen distended (mild) Percussion/Palpation: + abdomen tender (moderate, biat, lower quadrants) and abdomen soft; no abdominal mass Skin: normal turgor; no rashes, no lesions and no jaundice Neurologic: PERRL, EOMI, accommodation nl, no face palsy, no dysarthria Psychiatric: Orientation: alert Lymphatic: no cervical or axillary lymphadenopathy Results & Data ([facility]) Vital Signs (Past 12 Hours) Vital Signs Temp Pulse Resp BP Pulse Ox O2 Del Method 05/12/22 08:31 36.7 C 87 19 143/81 H 97 Room Air 05/12/22 02:36 36.6 C 89 16 159/84 H 97 Room Air Laboratory Results NA 146, K3.6, CL 116, CO2 24, BUN 16, CR 0.84, glucose 146, calcium 8.2. Diagnostic Findings Repeat, noncontrast CT abdomen pelvis 05/11/2022: 1. Worsening findings of acute pancreatitis. No acute peripancreatic fluid collection. 2. Small pleural effusions with new trace abdominal and pelvic ascites. 3. Distended gallbladder without cholelithiasis. 4. Moderate fecal retention. There is mild wall thickening involving several loops of large and small bowel along with mildly dilated small bowel within the central abdomen. Findings may be secondary to fluid overload with ileus. A nonspecific enterocolitis could appear similarly. 5. Punctate left renal calculus.
--- NOTE | 2022-05-12 11:21 | Pharmacy Report ---
Pharmacy Glycemic Short Note 2 - Date of Service May 12, 2022 - Glycemic Short BSG Results (Last 24 hours): 05/11/22 05/11/22 05/11/22 12:09 14:25 15:47 Glucose 205 H POC Glucose 183 H 193 H 05/11/22 05/12/22 05/12/22 20:01 05:55 07:22 Glucose 146 H POC Glucose 196 H 112 H 05/12/22 11:06 Glucose POC Glucose 134 H OUTPATIENT ANTIDIABETIC REGIMEN: * Non-adherence likely * Lantus 36 units SC HS * Novolog 02/13/10 units TIDM with additional correctional insulin of 25 mg/dL/unit * Metformin * HbA1c 14.3% on 05/09/22 ASSESSMENT: 05/12/22: * Patient received total 45 units of insulin yesterday: 35 units basal + 10 units bolus. * BSGs yesterday were [phone] mg/dl. * Fasting BSG today was 112 mg/dl. Continued basal insulin at almost the same dose (36 units) but all to be given at HS today. * Post prandial BSGs were elevated yesterday. Novolog parameters tightened today. Re-assess this tomorrow. 05/11/22: * Insulin drip was discontinued yesterday evening. BSGs trended up at HS but after receiving HS dose of Lantus (20 units), they trended down again overnight. * Fasting BSG today was 128 mg/dl. * Patient was NPO this AM for lap cholecystectomy today. But surgery cancelled later. * AM dose of Lantus was moved to noon, plan is to combine Lantus AM and PM doses into single dose at HS tomorrow to match home regimen. Added HS Lantus on a scale. 05/10/22 * Patient clinically improving, labs normal, blood sugar still elevated, tighten goal range for insulin drip, change IV Fluids from D5 to 1/2NS, and give another dose of basal insulin, anticipating stopping drip this afternoon/evening. 05/09/22 * 62 yo M admitted with confusion 2nd mixed HHS and DKA picture. Low CO2 and pH, elevated anion gap, (indicative of DKA) plus effective osmolality >320 (indicative of HHS) * Discussed fluids at ICU rounds - would normally add in potassium to fluids at this time but given stable potassium and OMARI along with some potassium in planned 3L LR bolus, but will hold off for now with plans for provider to reassess at next lab draw. Also discussed corrected sodium being elevated with eventual need to change to a fluid with less Na content. Again, provider to reassess at next lab draw. Ongoing aggressive fluid resuscitation planned. * Discussed plan for transition of insulin drip at ICU rounds - will not transition now. However, OK to provide very low dose Lantus to help with eventual transition. * HHS and DKA will both need to be corrected / addressed prior to transition of drip and reduction of goal range - improvement in mental status hopefully back to baseline (for HHS) along with improvement in CO2, anion gap (for DKA) will both be necessary. Hopefully these will be achieved by tomorrow AM and transition can be attempted at that time PLAN FOR INPATIENT GLYCEMIC CONTROL: * Hold outpatient oral diabetes medications * Basal insulin * Lantus 36 units SQ HS * Bolus insulin: tightened * NovoLog per scale ACHS or Q6h * Correction Factor 20 mg/dl/unit * Carb Ratio 1 unit for every 6 gm of carb consumed
[2022-05-12] MEDS: AMOXICILLIN/CLAVULANATE 875 MG TAB PO SCH (17:38)
--- NOTE | 2022-05-12 18:08 | Hospitalist Progress Note ---
Date of Service May 12, 2022 Assessment & Plan (1) DKA (diabetic ketoacidosis): Plan: per Dr. Mo's notes with addendum: DKA - likely component of HHS as well with AMS but can also be seen with severe DKA -From acute pancreatitis: - BG >1000 on admission, Bicarb 7, AG 32, k 6.6. pH 7 - HbA1c 14% on admission - started on empiric abx for hypothermia - aggressive IVF - insulin drip - FSG q1h while on insulin drip - when BG <250 and AG not closed - start D51/2NS - q4h BMP and VBG - ICU admission - care per ICU 05/12 Blood glucose improving Weaned off insulin drip Currently on Lantus and NovoLog Pharmacy glycemic control on board A1c 14 para educator on board Continue to monitor closely (2) Acute pancreatitis: Plan: - Likely from gallbladder sludge - Patient denies drinking alcohol, last drink 4 months ago -Lipase much better - Abdominal pain improving CT abdomen/pelvis: 1. Worsening findings of acute pancreatitis. No acute peripancreatic fluid collection. 2. Small pleural effusions with new trace abdominal and pelvic ascites. 3. Distended gallbladder without cholelithiasis.\ 4. Moderate fecal retention. There is mild wall thickening involving several loops of large and small bowel along with mildly dilated small bowel within the central abdomen. Findings may be secondary to fluid overload with ileus. A nonspecific enterocolitis could appear similarly. 5. Punctate left renal calculus. -Discussed with GI service GI recommending to advance diet today to clear liquids Continue IV fluids Liver ultrasound showing gall bladder distention with sludge Evaluated by general surgery Recommend outpatient cholecystectomy after resolution of acute pancreatitis 05/12 Tolerating liquid diet so far Hopefully will be able to advance to soft diet tomorrow Continue IV fluids Monitor close Possible pneumonia, aspiration question -Start Augmentin twice daily (3) OMARI (acute kidney injury): Plan: - likely due to profound volume depletion in severe DKA - IVF as above Creatinine back to baseline (4) Altered mental status: Plan: - likely encephalopathy secondary to DKA, acute pancreatitis, hypothermia - management as above 05/12 Back to baseline Monitor closely Fever -From acute pancreatitis? Afebrile since yesterday Procalcitonin trended down, almost normal No leukocytosis Repeat CT abdomen pelvis: No abscess Blood cultures: Negative Afebrile today Reporting some cough Start Augmentin twice daily for possible pneumonia, aspiration question (5) Hypothermia: Plan: - likely in setting of severe DKA, volume depletion Resolved (6) Hyponatremia: Plan: Resolved (7) Metabolic acidosis, increased anion gap: Plan: - in setting of DKA - management as above (8) Hypertension: Plan: - will monitor for now given severe volume depletion - restart meds as tolerated (9) Elevated troponin: Plan: - likely demand ischemia in setting of severe DKA - peaked T waves on admission due to hyperkalemia - K improving with above management - trend ECG - no ischemic changes Disposition Pending PT/OT evaluation Usually lives at home with his son Admission and Anticipated Discharge Date Admission Date: May 09, 2022 Subjective Follow-up for DKA, acute pancreatitis, etc. Seen resting in bed, comfortable, not distressed Appears somewhat weak Reports that he still having mostly lower abdominal pain, somewhat better than yesterday No nausea, fevers or chills Reports mild cough, nonproductive No shortness of breath, chest pain No other symptoms Review of Systems Review of Systems: all noted and negative except for above Physical Exam Physical Exam: General- oriented x 3, not in distress, speaks in sentences with no effort or accessory muscle use Eyes- anicteric Neck- no JVD Lungs-clear breath sounds bilaterally, no crackles or wheezing Heart- normal rate, regular rhythm; no murmurs Abdomen- normal bowel sounds, nondistended, soft, mild lower quadrant tenderness Extremities- no pretibial edema, no calf tenderness Neuro- alert, oriented x 3; no gross focal neurologic deficits Skin- warm & dry Results & Data Results & Data ([facility]) Vital Signs (Past 12 Hours) Vital Signs Temp Pulse Pulse Resp BP Pulse Ox O2 Del Method 05/12/22 16:51 36.6 C 83 20 122/70 96 Room Air 05/12/22 06:08 85 05/12/22 12:25 36.5 C 85 18 145/80 H 98 Room Air 05/12/22 08:31 36.7 C 87 19 143/81 H 97 Room Air all noted and reviewed including below (1) DKA (diabetic ketoacidosis) Diabetes mellitus complication detail: without coma Diabetes mellitus type: type 2 Qualified Code(s): E11.10 - Type 2 diabetes mellitus with ketoacidosis without coma
[2022-05-12] MEDS ORDERED: LANTUS PER UNIT CHARGE SQ SCH (21:00)
[2022-05-13] MEDS: SODIUM CHLORIDE 0.45 % 1,000 ML IV SCH ×2 (03:19→13:46)
[2022-05-13] MEDS: INSULIN ASPART PER UNIT SC SCH ×4 (08:25→20:50)
[2022-05-13] MEDS: UMECLIDINIUM BROMIDE 62.5MCG/BLISTER 7 PUFFS/INHALER INH SCH (08:26)
[2022-05-13] MEDS: AMOXICILLIN/CLAVULANATE 875 MG TAB PO SCH ×2 (08:26→17:24)
[2022-05-13] MEDS: PANTOprazole 40 MG TAB PO SCH (08:27)
[2022-05-13] MEDS: METOPROLOL SUCC 25MG EXT REL TAB PO SCH (08:27)
[2022-05-13] MEDS: MULTIVITAMIN TAB PO SCH (08:27)
[2022-05-13] MEDS: LOSARTAN POTASSIUM 50 MG TAB PO SCH (08:27)
[2022-05-13] MEDS: ATORVASTATIN 40 MG TAB PO SCH (08:28)
[2022-05-13 10:04] LABS: Hematocrit (blood only) 39.1 % (40.1-51.0); Hemoglobin 13.2 g/dl (14.0-18.0); Mean Platelet Volume 10.8 fL (9.4-12.4); Platelet Count 80 K/uL (130-400); White Blood Count 4.21 K/ul (4.8-10.8)
[2022-05-13 10:44] LABS: Albumin Level 2.6 gm/dl (3.4-5.0); BUN Creatinine Ratio 11.6 (10-20); Bilirubin Direct 0.2 mg/dl (0-0.2); Bilirubin,Total 0.5 mg/dl (0.2-1.0); Calcium 8.1 mg/dl (8.5-10.1); Creatinine Clr Calc Pharmacy 89.5 ml/min; Est GFR (African American) 109.2 ml/min; Est GFR (Non-African American) 94.3 ml/min; Potassium 3.2 mmol/L (3.5-5.1); Total Protein 5.7 gm/dl (6.0-8.3)
[2022-05-13] MEDS ORDERED: POTASSIUM CHLORIDE CRTAB 20 MEQ TABCR PO STA (10:56)
[2022-05-13 10:57] LABS: Acanthocytes 1+; Basophils # (auto) 0.01 K/uL (0-0.2); Basophils % (auto) 0.2 %; Echinocytes 1+; Eosinophils # (auto) 0.06 K/uL (0-0.50); Eosinophils % (auto) 1.4 %; Immature Granulocytes # (auto) 0.02 K/uL (0.00-0.02); Immature Granulocytes % (auto) 0.5 %; Lymphocytes # (auto) 0.98 K/uL (1.2-3.4); Lymphocytes % (auto) 23.3 %; Mean Corpuscular Hemoglobin 30.8 pg (25.0-34.0); Mean Corpuscular Hgb Conc 33.8 g/dL (32.0-36.0); Mean Corpuscular Volume 91.1 fL (80.0-100.0); Monocytes # (auto) 0.61 K/uL (0.24-0.82); Monocytes % (auto) 14.5 %; Neutrophils # (auto) 2.53 K/uL (1.4-6.5); Neutrophils % (auto) 60.1 %; Polychromasia 1+; RDW Coefficient of Variation 14.3 % (11.5-14.5); Red Blood Count 4.29 M/uL (4.63-6.08); Toxic Granulation 2+
--- NOTE | 2022-05-13 14:11 | Pharmacy Report ---
Pharmacy Glycemic Short Note 2 - Date of Service May 13, 2022 - Glycemic Short BSG Results (Last 24 hours): 05/12/22 05/12/22 05/13/22 15:59 20:04 07:23 Glucose POC Glucose 142 H 126 H 46 L* 05/13/22 05/13/22 05/13/22 07:24 07:45 09:56 Glucose 120 H POC Glucose 43 L* 178 H 05/13/22 10:59 Glucose POC Glucose 92 OUTPATIENT ANTIDIABETIC REGIMEN: * Non-adherence likely * Lantus 36 units SC HS * Novolog 02/13/10 units TIDM with additional correctional insulin of 25 mg/dL/unit * Metformin * HbA1c 14.3% on 05/09/22 ASSESSMENT: 05/13/22: * Patient received total of 42 units of insulin yesterday, of which 36 units were basal * Fasting BSG low this AM at 43 mg/dL - unclear for reasoning as he has received similar basal days prior and BSGs stable * Given amp of dextrose this AM, RN states asymptomatic. I loosened CF/CR * Lunch BSG still < 100 - will have reduced scale for lantus at bedtime 05/12/22: * Patient received total 45 units of insulin yesterday: 35 units basal + 10 units bolus. * BSGs yesterday were [phone] mg/dl. * Fasting BSG today was 112 mg/dl. Continued basal insulin at almost the same dose (36 units) but all to be given at HS today. * Post prandial BSGs were elevated yesterday. Novolog parameters tightened today. Re-assess this tomorrow. 05/11/22: * Insulin drip was discontinued yesterday evening. BSGs trended up at HS but after receiving HS dose of Lantus (20 units), they trended down again overnight. * Fasting BSG today was 128 mg/dl. * Patient was NPO this AM for lap cholecystectomy today. But surgery cancelled later. * AM dose of Lantus was moved to noon, plan is to combine Lantus AM and PM doses into single dose at HS tomorrow to match home regimen. Added HS Lantus on a scale. 05/10/22 * Patient clinically improving, labs normal, blood sugar still elevated, tighten goal range for insulin drip, change IV Fluids from D5 to 1/2NS, and give another dose of basal insulin, anticipating stopping drip this afternoon/evening. 05/09/22 * 62 yo M admitted with confusion 2nd mixed HHS and DKA picture. Low CO2 and pH, elevated anion gap, (indicative of DKA) plus effective osmolality >320 (indicative of HHS) * Discussed fluids at ICU rounds - would normally add in potassium to fluids at this time but given stable potassium and OMARI along with some potassium in planned 3L LR bolus, but will hold off for now with plans for provider to re assess at next lab draw. Also discussed corrected sodium being elevated with eventual need to change to a fluid with less Na content. Again, provider to reassess at next lab draw. Ongoing aggressive fluid resuscitation planned. * Discussed plan for transition of insulin drip at ICU rounds - will not transition now. However, OK to provide very low dose Lantus to help with eventual transition. * HHS and DKA will both need to be corrected / addressed prior to transition of drip and reduction of goal range - improvement in mental status hopefully back to baseline (for HHS) along with improvement in CO2, anion gap (for DKA) will both be necessary. Hopefully these will be achieved by tomorrow AM and transition can be attempted at that time PLAN FOR INPATIENT GLYCEMIC CONTROL: * Hold outpatient oral diabetes medications * Basal insulin - reduced * Lantus 0-15 units HS * Bolus insulin: tightened * NovoLog per scale ACHS or Q6h * Correction Factor 30 mg/dl/unit * Carb Ratio 1 unit for every 15 gm of carb consumed
--- NOTE | 2022-05-13 14:23 | Hospitalist Progress Note ---
Date of Service May 13, 2022 Assessment & Plan (1) DKA (diabetic ketoacidosis): Plan: per Dr. Mo's notes with addendum: DKA - likely component of HHS as well with AMS but can also be seen with severe DKA -From acute pancreatitis: - BG >1000 on admission, Bicarb 7, AG 32, k 6.6. pH 7 - HbA1c 14% on admission - started on empiric abx for hypothermia - aggressive IVF - insulin drip - FSG q1h while on insulin drip - when BG <250 and AG not closed - start D51/2NS - q4h BMP and VBG - ICU admission - care per ICU 05/13 Weaned off insulin drip Currently on Lantus and NovoLog Was hypoglycemic in the 40s this morning Pharmacy glycemic control on board A1c 14 certified adaptive physical educator on board Continue to monitor closely (2) Acute pancreatitis: Plan: - Likely from gallbladder sludge - Patient denies drinking alcohol, last drink 4 months ago -Lipase much better - Abdominal pain improving CT abdomen/pelvis: 1. Worsening findings of acute pancreatitis. No acute peripancreatic fluid collection. 2. Small pleural effusions with new trace abdominal and pelvic ascites. 3. Distended gallbladder without cholelithiasis.\ 4. Moderate fecal retention. There is mild wall thickening involving several loops of large and small bowel along with mildly dilated small bowel within the central abdomen. Findings may be secondary to fluid overload with ileus. A nonspecific enterocolitis could appear similarly. 5. Punctate left renal calculus. -Discussed with GI service GI recommending to advance diet today to clear liquids Continue IV fluids Liver ultrasound showing gall bladder distention with sludge Evaluated by general surgery Recommend outpatient cholecystectomy after resolution of acute pancreatitis 05/13 Advance diet to full liquids Hopefully will be able to advance to soft diet tomorrow Continue IV fluids Monitor close Possible pneumonia, aspiration question -Augmentin twice daily day 2 (3) OMRAI (acute kidney injury): Plan: - likely due to profound volume depletion in severe DKA - IVF as above Creatinine back to baseline (4) Altered mental status: Plan: - likely encephalopathy secondary to DKA, acute pancreatitis, hypothermia - management as above 05/13 Back to baseline Monitor closely Fever -From acute pancreatitis? Afebrile since yesterday Procalcitonin trended down, almost normal No leukocytosis Repeat CT abdomen pelvis: No abscess Blood cultures: Negative Afebrile today Reporting some cough Augmentin twice daily for possible pneumonia, aspiration? #2 Improving (5) Hypothermia: Plan: - likely in setting of severe DKA, volume depletion Resolved (6) Hyponatremia: Plan: Resolved (7) Metabolic acidosis, increased anion gap: Plan: - in setting of DKA - management as above (8) Hypertension: Plan: - will monitor for now given severe volume depletion - restart meds as tolerated (9) Elevated troponin: Plan: - likely demand ischemia in setting of severe DKA - peaked T waves on admission due to hyperkalemia - K improving with above management - trend ECG - no ischemic changes Disposition Pending PT/OT evaluation Usually lives at home with his son Admission and Anticipated Discharge Date Admission Date: May 09, 2022 Subjective Follow-up for acute pancreatitis, DKA, etc. Seen sitting up in bed, comfortable, not in distress Awake and alert, somewhat tired States lower abdominal pain, mild to moderate, same as yesterday Tolerating clear liquids well No fevers or chills, Shortness of Breath, Chest Pain Cough improving Other symptoms Review of Systems Review of Systems: all noted and negative except for above Physical Exam Physical Exam: General- oriented x 3, not in distress, speaks in sentences with no effort or accessory muscle use Eyes- anicteric Neck- no JVD Lungs- clear breath sounds bilaterally, no crackles or wheezing Heart- normal rate, regular rhythm; no murmurs Abdomen- normal bowel sounds, nondistended, soft, very minimal tenderness lower quadrants Extremities- no pretibial edema, no calf tenderness Neuro- alert, oriented x 3; no gross focal neurologic deficits Skin- warm & dry Results & Data Results & Data ([facility]) Vital Signs (Past 12 Hours) Vital Signs Temp Pulse Pulse Resp BP Pulse Ox O2 Del Method 05/13/22 06:13 86 05/13/22 12:09 103 H 22 111/67 96 Room Air 05/13/22 11:01 36.7 C 87 18 125/79 97 Room Air 05/13/22 07:02 36.5 C 86 18 144/80 H 98 Room Air 05/13/22 03:33 36.5 C 91 H 16 134/79 97 Room Air all noted and reviewed including below (1) DKA (diabetic ketoacidosis) Diabetes mellitus complication detail: without coma Diabetes mellitus type: type 2 Qualified Code(s): E11.10 - Type 2 diabetes mellitus with ketoacidosis without coma
[2022-05-13] MEDS: LANTUS PER UNIT CHARGE SQ SCH (20:51)
[2022-05-14] MEDS: SODIUM CHLORIDE 0.45 % 1,000 ML IV SCH (05:19)
[2022-05-14] MEDS: INSULIN ASPART PER UNIT SC SCH ×4 (08:12→20:14)
[2022-05-14] MEDS: AMOXICILLIN/CLAVULANATE 875 MG TAB PO SCH ×2 (08:30→16:59)
[2022-05-14] MEDS: PANTOprazole 40 MG TAB PO SCH (08:30)
[2022-05-14] MEDS: METOPROLOL SUCC 25MG EXT REL TAB PO SCH (08:31)
[2022-05-14] MEDS: UMECLIDINIUM BROMIDE 62.5MCG/BLISTER 7 PUFFS/INHALER INH SCH (08:31)
[2022-05-14] MEDS: ATORVASTATIN 40 MG TAB PO SCH (08:31)
[2022-05-14] MEDS: MULTIVITAMIN TAB PO SCH (08:31)
[2022-05-14] MEDS: ACETAMINOPHEN 1,000 MG/100 ML VIAL IV PRN (08:41)
--- NOTE | 2022-05-14 10:48 | Pharmacy Report ---
Pharmacy Glycemic Short Note 2 - Date of Service May 14, 2022 - Glycemic Short BSG Results (Last 24 hours): 05/13/22 05/13/22 05/14/22 16:08 20:08 07:02 POC Glucose 111 H 177 H 62 L* 05/14/22 05/14/22 07:04 07:21 POC Glucose 61 L* 81 OUTPATIENT ANTIDIABETIC REGIMEN: * Non-adherence likely * Lantus 36 units SC HS * Novolog 02/13/10 units TIDM with additional correctional insulin of 25 mg/dL/unit * Metformin * HbA1c 14.3% on 05/09/22 ASSESSMENT: 05/14/22: * Patient received total of 19 units of insulin yesterday, of which 15 units were basal (~60% reduction of basal from day prior for low BSG) * BSG this AM still low this AM 62 mg/dL - will continue to reduce basal. Would have expected BSGs trending upward 05/13/22: * Patient received total of 42 units of insulin yesterday, of which 36 units were basal * Fasting BSG low this AM at 43 mg/dL - unclear for reasoning as he has received similar basal days prior and BSGs stable * Given amp of dextrose this AM, RN states asymptomatic. I loosened CF/CR * Lunch BSG still < 100 - will have reduced scale for lantus at bedtime 05/12/22: * Patient received total 45 units of insulin yesterday: 35 units basal + 10 units bolus. * BSGs yesterday were [phone] mg/dl. * Fasting BSG today was 112 mg/dl. Continued basal insulin at almost the same dose (36 units) but all to be given at HS today. * Post prandial BSGs were elevated yesterday. Novolog parameters tightened today. Re-assess this tomorrow. 05/11/22: * Insulin drip was discontinued yesterday evening. BSGs trended up at HS but after receiving HS dose of Lantus (20 units), they trended down again overnight. * Fasting BSG today was 128 mg/dl. * Patient was NPO this AM for lap cholecystectomy today. But surgery cancelled later. * AM dose of Lantus was moved to noon, plan is to combine Lantus AM and PM doses into single dose at HS tomorrow to match home regimen. Added HS Lantus on a scale. 05/10/22 * Patient clinically improving, labs normal, blood sugar still elevated, tighten goal range for insulin drip, change IV Fluids from D5 to 1/2NS, and give another dose of basal insulin, anticipating stopping drip this afternoon/evening. 05/09/22 * 62 yo M admitted with confusion 2nd mixed HHS and DKA picture. Low CO2 and pH, elevated anion gap, (indicative of DKA) plus effective osmolality >320 (indicative of HHS) * Discussed fluids at ICU rounds - would normally add in potassium to fluids at this time but given stable potassium and OMARI along with some potassium in planned 3L LR bolus, but will hold off for now with plans for provider to reassess at next lab draw. Also discussed corrected sodium being elevated with eventual need to change to a fluid with less Na content. Again, provider to reassess at next lab draw. Ongoing aggressive fluid resuscitation planned. * Discussed plan for transition of insulin drip at ICU rounds - will not transition now. However, OK to provide very low dose Lantus to help with eventual transition. * HHS and DKA will both need to be corrected / addressed prior to transition of drip and reduction of goal range - improvement in mental status hopefully back to baseline (for HHS) along with improvement in CO2, anion gap (for DKA) will both be necessary. Hopefully these will be achieved by tomorrow AM and transition can be attempted at that time PLAN FOR INPATIENT GLYCEMIC CONTROL: * Hold outpatient oral diabetes medications * Basal insulin - reduced * Lantus 0-8 units HS * Bolus insulin: * NovoLog per scale ACHS or Q6h * Correction Factor 30 mg/dl/unit * Carb Ratio 1 unit for every 15 gm of carb consumed
--- NOTE | 2022-05-14 12:26 | Hospitalist Progress Note ---
Date of Service May 14, 2022 Assessment & Plan (1) DKA (diabetic ketoacidosis): Plan: per Dr. Mo's notes with addendum: DKA - likely component of HHS as well with AMS but can also be seen with severe DKA -From acute pancreatitis: - BG >1000 on admission, Bicarb 7, AG 32, k 6.6. pH 7 - HbA1c 14% on admission - started on empiric abx for hypothermia - aggressive IVF - insulin drip - FSG q1h while on insulin drip - when BG <250 and AG not closed - start D51/2NS - q4h BMP and VBG - ICU admission - care per ICU 05/14 Weaned off insulin drip Currently on Lantus and NovoLog BSG 81, now 220s Pharmacy glycemic control on board A1c 14 nurses educator on board, recommendations noted Continue to monitor closely (2) Acute pancreatitis: Plan: - Likely from gallbladder sludge - Patient denies drinking alcohol, last drink 4 months ago -Lipase much better - Abdominal pain improving CT abdomen/pelvis: 1. Worsening findings of acute pancreatitis. No acute peripancreatic fluid c ollection. 2. Small pleural effusions with new trace abdominal and pelvic ascites. 3. Distended gallbladder without cholelithiasis.\ 4. Moderate fecal retention. There is mild wall thickening involving several loops of large and small bowel along with mildly dilated small bowel within the central abdomen. Findings may be secondary to fluid overload with ileus. A nonspecific enterocolitis could appear similarly. 5. Punctate left renal calculus. -Discussed with GI service GI recommending to advance diet today to clear liquids Continue IV fluids Liver ultrasound showing gall bladder distention with sludge Evaluated by general surgery Recommend outpatient cholecystectomy after resolution of acute pancreatitis 05/14 Advance diet to low fiber, low-fat DC IV fluids Monitor closely PT and OT evaluate Monitor close Possible pneumonia, aspiration question -Augmentin twice daily day 3 Cough improving (3) OMARI (acute kidney injury): Plan: - likely due to profound volume depletion in severe DKA - IVF as above Creatinine back to baseline (4) Altered mental status: Plan: - likely encephalopathy secondary to DKA, acute pancreatitis, hypothermia - management as above Back to baseline Fever -From acute pancreatitis? Afebrile since yesterday Procalcitonin trended down, almost normal No leukocytosis Repeat CT abdomen pelvis: No abscess Blood cultures: Negative Afebrile now Management of possible pneumonia as per above (5) Hypothermia: Plan: - likely in setting of severe DKA, volume depletion Resolved (6) Hyponatremia: Plan: Resolved (7) Metabolic acidosis, increased anion gap: Plan: - in setting of DKA - management as above (8) Hypertension: Plan: Continue losartan, metoprolol (9) Elevated troponin: Plan: - likely demand ischemia in setting of severe DKA - peaked T waves on admission due to hyperkalemia - K improving with above management - trend ECG - no ischemic changes Disposition Pending PT/OT evaluation: Recommending transitioning patient to acute rehab Usually lives at home with his son Admission and Anticipated Discharge Date Admission Date: May 09, 2022 Subjective Follow-up for acute pancreatitis, DKA, encephalopathy, etc. Seen sitting up in bed, comfortable, not distressed In good spirits, not in distress States he feels better compared to yesterday Abdominal pain continues to improve Interested to advance diet to soft, low fiber today Positive BM this morning No fevers or chills Cough improving No shortness of breath No other symptoms Review of Systems Review of Systems: all noted and negative except for above Physical Exam Physical Exam: General- oriented x 3, not in distress, speaks in sentences with no effort or accessory muscle use Eyes- anicteric Neck- no JVD Lungs- clear breath sounds bilaterally, no wheezing, no crackles noted Heart- normal rate, regular rhythm; no murmurs Abdomen- normal bowel sounds, nondistended, soft, minimal tenderness in the lower quadrants, much improved compared to yesterday Extremities- no pretibial edema, no calf tenderness Neuro- alert, oriented x 3; no gross focal neurologic deficits Skin- warm & dry Results & Data Results & Data ([facility]) Vital Signs (Past 12 Hours) Vital Signs Temp Pulse Pulse Resp BP Pulse Ox O2 Del Method 05/14/22 11:19 36.6 C 84 18 145/76 H 97 Room Air 05/14/22 08:00 90 05/14/22 07:00 36.6 C 95 H 18 144/79 H 98 Room Air 05/14/22 02:55 36.9 C 86 18 133/74 97 Room Air all noted and reviewed including below (1) DKA (diabetic ketoacidosis) Diabetes mellitus complication detail: without coma Diabetes mellitus type: type 2 Qualified Code(s): E11.10 - Type 2 diabetes mellitus with ketoacidosis without coma
[2022-05-14] MEDS: LANTUS PER UNIT CHARGE SQ SCH (20:15)
[2022-05-15] MEDS: PANTOprazole 40 MG TAB PO SCH (09:36)
[2022-05-15] MEDS: MULTIVITAMIN TAB PO SCH (09:36)
[2022-05-15] MEDS: AMOXICILLIN/CLAVULANATE 875 MG TAB PO SCH ×2 (09:36→18:27)
[2022-05-15] MEDS: METOPROLOL SUCC 25MG EXT REL TAB PO SCH (09:37)
[2022-05-15] MEDS: ATORVASTATIN 40 MG TAB PO SCH (09:37)
[2022-05-15] MEDS: UMECLIDINIUM BROMIDE 62.5MCG/BLISTER 7 PUFFS/INHALER INH SCH (09:37)
[2022-05-15] MEDS: INSULIN ASPART PER UNIT SC SCH ×4 (09:40→21:10)
[2022-05-15 10:04] LABS: Hematocrit (blood only) 38.1 % (40.1-51.0); Hemoglobin 12.9 g/dl (14.0-18.0); Mean Corpuscular Hgb Conc 33.9 g/dL (32.0-36.0); Mean Corpuscular Volume 91.6 fL (80.0-100.0); Mean Platelet Volume 11.3 fL (9.4-12.4); Platelet Count 141 K/uL (130-400); RDW Standard Deviation 47.3 fL (36.4-46.3); Red Blood Count 4.16 M/uL (4.63-6.08); White Blood Count 7.99 K/ul (4.8-10.8)
[2022-05-15 10:27] LABS: BUN Creatinine Ratio 8.1 (10-20); Calcium 8.2 mg/dl (8.5-10.1); Est GFR (African American) 109.2 ml/min; Est GFR (Non-African American) 94.3 ml/min; Potassium 3.6 mmol/L (3.5-5.1)
[2022-05-15 10:29] LABS: Basophils # (auto) 0.03 K/uL (0-0.2); Basophils % (auto) 0.4 %; Eosinophils # (auto) 0.06 K/uL (0-0.50); Eosinophils % (auto) 0.8 %; Immature Granulocytes # (auto) 0.05 K/uL (0.00-0.02); Immature Granulocytes % (auto) 0.6 %; Lymphocytes # (auto) 1.34 K/uL (1.2-3.4); Lymphocytes % (auto) 16.8 %; Monocytes # (auto) 1.12 K/uL (0.24-0.82); Neutrophils # (auto) 5.39 K/uL (1.4-6.5); Neutrophils % (auto) 67.4 %; Toxic Granulation 1+
--- NOTE | 2022-05-15 15:12 | Hospitalist Progress Note ---
Date of Service May 15, 2022 Assessment & Plan (1) DKA (diabetic ketoacidosis): Plan: per Dr. Mo's notes with addendum: DKA - likely component of HHS as well with AMS but can also be seen with severe DKA -From acute pancreatitis: - BG >1000 on admission, Bicarb 7, AG 32, k 6.6. pH 7 - HbA1c 14% on admission - started on empiric abx for hypothermia - aggressive IVF - insulin drip - FSG q1h while on insulin drip - when BG <250 and AG not closed - start D51/2NS - q4h BMP and VBG - ICU admission - care per ICU 05/15 Weaned off insulin drip Currently on Lantus and NovoLog BSG 165, now 180 Pharmacy glycemic control on board A1c 14 hematology nurse educator on board, recommendations noted Continue to monitor closely (2) Acute pancreatitis: Plan: - Likely from gallbladder sludge - Patient denies drinking alcohol, last drink 4 months ago -Lipase much better - Abdominal pain improving CT abdomen/pelvis: 1. Worsening findings of acute pancreatitis. No acute peripancreatic fluid c ollection. 2. Small pleural effusions with new trace abdominal and pelvic ascites. 3. Distended gallbladder without cholelithiasis.\ 4. Moderate fecal retention. There is mild wall thickening involving several loops of large and small bowel along with mildly dilated small bowel within the central abdomen. Findings may be secondary to fluid overload with ileus. A nonspecific enterocolitis could appear similarly. 5. Punctate left renal calculus. -Discussed with GI service GI recommending to advance diet today to clear liquids Continue IV fluids Liver ultrasound showing gall bladder distention with sludge Evaluated by general surgery Recommend outpatient cholecystectomy after resolution of acute pancreatitis 05/15 tolerating low fiber, low-fat diet Having diarrhea today Check for C. difficile Encouraged to drink plenty of water Possible pneumonia, aspiration question -Augmentin twice daily day 4 Cough improving (3) OMARI (acute kidney injury): Plan: - likely due to profound volume depletion in severe DKA - IVF as above Creatinine back to baseline (4) Altered mental status: Plan: - likely encephalopathy secondary to DKA, acute pancreatitis, hypothermia - management as above Back to baseline Fever -From acute pancreatitis? Afebrile since yesterday Procalcitonin trended down, almost normal No leukocytosis Repeat CT abdomen pelvis: No abscess Blood cultures: Negative Afebrile now Management of possible pneumonia as per above (5) Hypothermia: Plan: - likely in setting of severe DKA, volume depletion Resolved (6) Hyponatremia: Plan: Resolved (7) Metabolic acidosis, increased anion gap: Plan: - in setting of DKA - management as above (8) Hypertension: Plan: Continue losartan, metoprolol (9) Elevated troponin: Plan: - likely demand ischemia in setting of severe DKA - peaked T waves on admission due to hyperkalemia - K improving with above management - trend ECG - no ischemic changes Disposition Transition to acute rehab, patient agreeable PT/OT evaluation: Recommending transitioning patient to acute rehab Usually lives at home with his son Admission and Anticipated Discharge Date Admission Date: May 09, 2022 Subjective Follow-up for acute pancreatitis, DKA, encephalopathy, etc. Seen resting in bed, comfortable, watching TV States he feels improved today overall Also having diarrhea again 3-4 bowel movements, watery so far No blood No nausea, tolerating diet well No shortness of breath, cough No other symptoms Review of Systems Review of Systems: all noted and negative except for above Physical Exam Physical Exam: General- oriented x 3, not in distress, speaks in sentences with no effort or accessory muscle use Eyes- anicteric Neck- no JVD Lungs- clear breath sounds bilaterally, no wheezing, no crackles Heart- normal rate, regular rhythm; no murmurs Abdomen- normal bowel sounds, nondistended, soft, no tenderness Extremities- no pretibial edema, no calf tenderness Neuro- alert, oriented x 3; no gross focal neurologic deficits Skin- warm & dry Results & Data Results & Data ([facility]) Vital Signs (Past 12 Hours) Vital Signs Temp Pulse Resp BP Pulse Ox O2 Del Method 05/15/22 07:23 36.7 C 87 18 144/74 H 96 Room Air all noted and reviewed including below (1) DKA (diabetic ketoacidosis) Diabetes mellitus complication detail: without coma Diabetes mellitus type: type 2 Qualified Code(s): E11.10 - Type 2 diabetes mellitus with ketoacidosis without coma
[2022-05-15] MEDS: LANTUS PER UNIT CHARGE SQ SCH (21:11)
[2022-05-16] MEDS ORDERED: LANTUS PER UNIT CHARGE SQ ONE (08:30)
[2022-05-16] MEDS: UMECLIDINIUM BROMIDE 62.5MCG/BLISTER 7 PUFFS/INHALER INH SCH (08:35)
[2022-05-16] MEDS: METOPROLOL SUCC 25MG EXT REL TAB PO SCH (08:36)
[2022-05-16] MEDS: AMOXICILLIN/CLAVULANATE 875 MG TAB PO SCH ×2 (08:36→18:10)
[2022-05-16] MEDS: MULTIVITAMIN TAB PO SCH (08:36)
[2022-05-16] MEDS: PANTOprazole 40 MG TAB PO SCH (08:36)
[2022-05-16] MEDS: ATORVASTATIN 40 MG TAB PO SCH (08:36)
[2022-05-16] MEDS: INSULIN ASPART PER UNIT SC SCH ×4 (09:13→22:10)
[2022-05-16] MEDS: ADVANCED PROBIOTIC 1250 MG CAPSULE PO SCH (09:14)
[2022-05-16 09:38] LABS: BUN Creatinine Ratio 9.4 (10-20); Creatinine Clr Calc Pharmacy 82.9 ml/min; Est GFR (African American) 109.8 ml/min; Est GFR (Non-African American) 94.7 ml/min; Magnesium 1.8 mg/dl (1.7-2.4); Potassium 3.7 mmol/L (3.5-5.1)
--- NOTE | 2022-05-16 12:51 | Hospitalist Progress Note ---
Date of Service May 16, 2022 Assessment & Plan (1) DKA (diabetic ketoacidosis): Plan: DKA UNCONTROLLED DIABETES TYPE 2 - likely From acute pancreatitis: - BG >1000 on admission, Bicarb 7, AG 32, k 6.6. 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 2.) Reinforce need to take 70/30 immediately before breakfast and supper meals daily, even when BG is within target range. 3.) Mindful of food choices/portion sizes. Avoid any sugar-sweetened drinks or alcohol. PRESCRIPTIONS NEEDED AT DISCHARGE: 1.) Insulin Aspart Protamine-Insulin Aspart 70-30 Pen (Generic Novolog Mix 70/30 Flexpen). 2.) Pen [place] 32 gauge x 5/32" (4mm). 3.) Look into coverage of Sensoriste CGM. Please discuss with pharmacy glycemic control service for discharge insulin 70/30 regimen Continue to monitor closely (2) Acute pancreatitis: Plan: - Likely from gallbladder sludge - Patient denies drinking alcohol, last drink 4 months ago -Lipase much better - Abdominal pain improving CT abdomen/pelvis: 1. Worsening findings of acute pancreatitis. No acute peripancreatic fluid collection. 2. Small pleural effusions with new trace abdominal and pelvic ascites. 3. Distended gallbladder without cholelithiasis.\\ 4. Moderate fecal retention. There is mild wall thickening involving several loops of large and small bowel along with mildly dilated small bowel within the central abdomen. Findings may be secondary to fluid overload with ileus. A nonspecific enterocolitis could appear similarly. 5. Punctate left renal calculus. Liver ultrasound showing gall bladder distention with sludge Evaluated by general surgery Recommend outpatient cholecystectomy after resolution of acute pancreatitis 05/16 tolerating low fiber, low-fat diet Diarrhea resolving, C. difficile negative Still having some lower abdominal pain Repeat CT abdomen pelvis without contrast today: Pending POSSIBLE BIBASILAR P NEUMONIA, ASPIRATION? -Augmentin twice daily day 5/7 Cough improving (3) OMARI (acute kidney injury): Plan: - likely due to profound volume depletion in severe DKA - IVF as above Creatinine back to baseline (4) Altered mental status: Plan: - likely encephalopathy secondary to DKA, acute pancreatitis, hypothermia - management as above Back to baseline (5) Hypothermia: Plan: - likely in setting of severe DKA, volume depletion Resolved (6) Hyponatremia: Plan: Resolved (7) Metabolic acidosis, increased anion gap: Plan: - in setting of DKA - management as above (8) Hypertension: Plan: Continue losartan, metoprolol (9) Elevated troponin: Plan: - likely demand ischemia in setting of severe DKA - peaked T waves on admission due to hyperkalemia - K improving with above management - trend ECG - no ischemic changes Disposition Transition to acute rehab, patient agreeable PT/OT evaluation: Recommending transitioning patient to acute rehab Usually lives at home with his son Admission and Anticipated Discharge Date Admission Date: May 09, 2022 Supervising Physician Co-Signing Physician Notes Subjective ff up for acute pancreatitis, etc seen resting in bed, comfortable states he still has some lower abdominal discomfort diarrhea improving no chest pain, dyspnea, palpitations, dizziness minimal cough no other symptoms Review of Systems Review of Systems: all noted and negative except for above Physical Exam Physical Exam: General- oriented x 3, not in distress, speaks in sentences with no effort or accessory muscle use Eyes- anicteric Neck- no JVD Lungs- clear BS BL no wheezing no crackles Heart- normal rate, regular rhythm; no murmurs Abdomen- normal bowel sounds, nondistended, soft, nontender Extremities- no pretibial edema, no calf tenderness Neuro- alert, oriented x 3; no gross focal neurologic deficits Skin- warm & dry Results & Data Results & Data ([facility]) Vital Signs (Past 12 Hours) Vital Signs Temp Pulse Resp BP BP Pulse Ox O2 Del Method 05/16/22 11:03 36.8 C 88 18 105/88 98 Room Air 05/16/22 07:29 36.8 C 91 H 17 131/71 96 Room Air 05/16/22 03:11 37.1 C 84 18 134/68 97 Room Air all noted and reviewed including below (1) DKA (diabetic ketoacidosis) Diabetes mellitus complication detail: without coma Diabetes mellitus type: type 2 Qualified Code(s): E11.10 - Type 2 diabetes mellitus with ketoacidosis without coma
--- NOTE | 2022-05-16 14:01 | Pharmacy Report ---
Pharmacy Glycemic Short Note 2 - Date of Service May 16, 2022 - Glycemic Short BSG Results (Last 24 hours): 05/15/22 05/15/22 05/16/22 17:12 20:20 07:57 Glucose POC Glucose 141 H 215 H 223 H 05/16/22 05/16/22 05/16/22 08:41 11:53 11:55 Glucose 241 H POC Glucose 307 H* 345 H* 05/16/22 11:57 Glucose POC Glucose 317 H* OUTPATIENT ANTIDIABETIC REGIMEN: * Non-adherence likely * Lantus 36 units SC HS * Novolog 02/13/10 units TIDM with additional correctional insulin of 25 mg/dL/unit * Metformin * HbA1c 14.3% on 05/09/22 ASSESSMENT: 05/16/22 * Mr Tristan's BSGs yesterday were [phone] mg/dL. Patient received 26 units of insulin (12 units of basal and 14 units of bolus). * Fasting today was 223 mg/dL which is significantly elevated compared to yesterday. Lunch BSG was 317 mg/dL. * For elevated fasting, gave 5 units of Lantus this morning plus give HS Lantus at dinnertime. Switch once daily Lantus to daily with breakfast. * Tighten CR as patient's BSGs trend upwards significantly after PO intake. 05/14/22: * Patient received total of 19 units of insulin yesterday, of which 15 units were basal (~60% reduction of basal from day prior for low BSG) * BSG this AM still low this AM 62 mg/dL - will continue to reduce basal. Would have expected BSGs trending upward 05/13/22: * Patient received total of 42 units of insulin yesterday, of which 36 units were basal * Fasting BSG low this AM at 43 mg/dL - unclear for reasoning as he has received similar basal days prior and BSGs stable * Given amp of dextrose this AM, RN states asymptomatic. I loosened CF/CR * Lunch BSG still < 100 - will have reduced scale for lantus at bedtime 05/12/22: * Patient received total 45 units of insulin yesterday: 35 units basal + 10 units bolus. * BSGs yesterday were [phone] mg/dl. * Fasting BSG today was 112 mg/dl. Continued basal insulin at almost the same dose (36 units) but all to be given at HS today. * Post prandial BSGs were elevated yesterday. Novolog parameters tightened today. Re-assess this tomorrow. 05/11/22: * Insulin drip was discontinued yesterday evening. BSGs trended up at HS but after receiving HS dose of Lantus (20 units), they trended down again overnight. * Fasting BSG today was 128 mg/dl. * Patient was NPO this AM for lap cholecystectomy today. But surgery cancelled later. * AM dose of Lantus was moved to noon, plan is to combine Lantus AM and PM doses into single dose at HS tomorrow to match home regimen. Added HS Lantus on a scale. 05/10/22 * Patient clinically improving, labs normal, blood sugar still elevated, tighten goal range for insulin drip, change IV Fluids from D5 to 1/2NS, and give another dose of basal insulin, anticipating stopping drip this afternoon/evening. 05/09/22 * 62 yo M admitted with confusion 2nd mixed HHS and DKA picture. Low CO2 and pH, elevated anion gap, (indicative of DKA) plus effective osmolality >320 (indicative of HHS) * Discussed fluids at ICU rounds - would normally add in potassium to fluids at this time but given stable potassium and OMARI along with some potassium in planned 3L LR bolus, but will hold off for now with plans for provider to reassess at next lab draw. Also discussed corrected sodium being elevated with eventual need to change to a fluid with less Na content. Again, provider to reassess at next lab draw. Ongoing aggressive fluid resuscitation planned. * Discussed plan for transition of insulin drip at ICU rounds - will not transition now. However, OK to provide very low dose Lantus to help with eventual transition. * HHS and DKA will both need to be corrected / addressed prior to transition of drip and reduction of goal range - improvement in mental status hopefully back to baseline (for HHS) along with improvement in CO2, anion gap (for DKA) will both be necessary. Hopefully these will be achieved by tomorrow AM and transition can be attempted at that time PLAN FOR INPATIENT GLYCEMIC CONTROL: * Hold outpatient oral diabetes medications * Basal insulin * Lantus 5 units x 1 + Lantus 12 units with dinner * Lantus 17 units daily (20 units if BSG > 180 mg/dL) * Bolus insulin: * NovoLog per scale ACHS or Q6h * Correction Factor 30 mg/dl/unit * Carb Ratio 1 unit for every 6 gm of carb consumed
--- NOTE | 2022-05-16 14:38 | CT Scan Report ---
CT OF THE ABDOMEN AND PELVIS WITHOUT CONTRAST CLINICAL HISTORY: lower abdominal pain, ff up acute pancreatitis COMPARISON STUDY: CT of the abdomen and pelvis May 11, 2022. TECHNIQUE: Axial images of the abdomen and pelvis were obtained without IV contrast. Images were revi ewed in the axial, sagittal, and coronal planes. Automated exposure control was utilized for the ernesto dy. A dose lowering technique was utilized adhering to the principles of ALARA. FINDINGS: Trace bilateral pleural effusions are again noted. No pneumatosis, free air or portal venou s gas is present. Evaluation of the abdomen and pelvis is suboptimal on this unenhanced examination. Liver, spleen, adrenal glands and kidneys are unremarkable. There is no hydronephrosis. There is no b iliary or pancreatic ductal dilatation. Mild bilateral perinephric stranding is unchanged. Peripancre atic stranding and fluid has improved. There are no peripancreatic fluid collections. There is no ashley dence for a bowel obstruction. Moderate wall thickening of the mid to distal descending colon and sig moid colon with associated pericolonic stranding and fluid has slightly improved. No new sites of bow el wall thickening are identified. IMPRESSION: 1. Persistent, but slightly improved, colitis involving the distal descending colon and sigmoid colon . This could be ischemic or infectious in etiology. No pneumatosis, free air or portal venous gas. 2. Interval improvement in findings consistent with acute pancreatitis. 3. No bowel obstruction. ACT 112: Negative or not required by law. Electronically signed by: Cassius Perez M.D. 05/16/2022 2:36 PM
[2022-05-16] MEDS ORDERED: ACETAMINOPHEN 325 MG TAB PO PRN (16:59)
[2022-05-16] MEDS: LANTUS PER UNIT CHARGE SQ SCH (18:10)
[2022-05-17] MEDS: UMECLIDINIUM BROMIDE 62.5MCG/BLISTER 7 PUFFS/INHALER INH SCH (08:24)
[2022-05-17] MEDS: AMOXICILLIN/CLAVULANATE 875 MG TAB PO SCH ×2 (08:25→18:33)
[2022-05-17] MEDS: METOPROLOL SUCC 25MG EXT REL TAB PO SCH (08:25)
[2022-05-17] MEDS: PANTOprazole 40 MG TAB PO SCH (08:25)
[2022-05-17] MEDS: MULTIVITAMIN TAB PO SCH (08:25)
[2022-05-17] MEDS: ADVANCED PROBIOTIC 1250 MG CAPSULE PO SCH (08:25)
[2022-05-17] MEDS: ATORVASTATIN 40 MG TAB PO SCH (08:25)
[2022-05-17] MEDS: LANTUS PER UNIT CHARGE SQ SCH (08:52)
[2022-05-17] MEDS: INSULIN ASPART PER UNIT SC SCH ×4 (08:52→21:37)
--- NOTE | 2022-05-17 14:19 | Hospitalist Progress Note ---
Date of Service May 17, 2022 Assessment & Plan (1) DM2 (diabetes mellitus, type 2): Plan: - BG >1000 on admission, Bicarb 7, AG 32, k 6.6. pH 7 - HbA1c 14% on admission - s/p insulin drip for DKA, now resolved - continue Lantus and prandial per pharmacy protocol - public health educator on board, recommendations: RECOMMENDATIONS POST-DISCHARGE: 1.) Get into a routine of checking BG, taking insulin, eating. 2.) Reinforce need to take 70/30 immediately before breakfast and supper meals daily, even when BG is within target range. 3.) Mindful of food choices/portion sizes. Avoid any sugar-sweetened drinks or alcohol. PRESCRIPTIONS NEEDED AT DISCHARGE: 1.) Insulin Aspart Protamine-Insulin Aspart 70-30 Pen (Generic Novolog Mix 70/30 Flexpen). 2.) Pen [place] 32 gauge x 5/32" (4mm). 3.) Look into coverage of [place] CGM. - Continue to monitor closely - FSG AC+HS - diabetic diet - PCP follow up for further management (2) Hypertension: Plan: - Continue metoprolol - holding losartan as patient has been normotensive - can likely discontinue at discharge with PCP follow up with BP remains stable (3) Abnormal gall bladder diagnostic imaging: Plan: - gall bladder sludge noted - possible etiology of pancreatitis from earlier in admission, now resolved - general surgery consulted and plan for likely cholecystectomy as outpatient (4) Pneumonia: Plan: - likely aspiration - continue Augmentin for 7 day course (day 6/7) - improving symptoms - on RA (5) Hyperlipidemia: Plan: - continue statin (6) H/O TIA (transient ischemic attack) and stroke: Plan: - continue statin, plavix (7) ILD (interstitial lung disease): Plan: - continue inhalers (8) GERD (gastroesophageal reflux disease): Plan: - continue PPI Plan DVT ppx: heparin SC Code Status: Full Code Dispo: telemetry Dago Smith MD [facility] Medicine Admission and Anticipated Discharge Date Admission Date: May 09, 2022 Subjective Patient with history of DM, HLD, ILD, HTN, h/o TIA, GERD, CKD, alcohol use disorder presented after being found down with confusion, n/v. Found to be in DKA/HSS and pancreatitis on CT. Started on IVF, insulin drip, NPO, ICU admission, DKA resolved, pancreatitis and colitis improved. Transferred out of ICU. PT/OT evaluation and for rehab. Seen by surgery for gall bladder sludge which could have contributed to pancreatitis, will likely get outpatient follow up for cholecystectomy. Patient reports feeling better but still weak. Still with some diarrhea but improved, abdominal pain still present but also improved. Denies chest pain, shortness of breath, n/v, dysuria. Review of Systems Review of Systems: all noted and negative except for above Physical Exam Physical Exam: GENERAL: The patient is awake and alert, oriented x3 HEENT: Pupils equal, round and reactive to light. Oral mucosa dry. NECK: No JVD, no neck masses. CARDIOVASCULAR: S1 and S2 heard. Regular rate and rhythm. No murmur, no gallop. RESPIRATORY SYSTEM: Normal AP diameter. No accessory muscle use. No wheezing, no crackles. ABDOMEN: Soft, bowel sounds present Mild discomfort. No distention. CENTRAL NERVOUS SYSTEM: Alert, awake, and oriented x3. No facial droop. Moving extremities. EXTREMITIES: No edema, no erythema. Results & Data Results & Data ([facility]) Vital Signs (Past 12 Hours) Vital Signs Temp Pulse Resp BP Pulse Ox O2 Del Method 05/17/22 09:30 Room Air 05/17/22 08:13 36.7 C 81 17 127/72 98 Room Air Diagnostic Findings Laboratory Results WBC 7.99 K/ul (4.8-10.8) 05/15/22 09:40 RBC 4.16 M/uL (4.63-6.08) L 05/15/22 09:40 Hgb 12.9 g/dl (14.0-18.0) L 05/15/22 09:40 POC Hgb 16.3 g/dl (14.0-18.0) 05/08/22 23:44 Hct 38.1 % (40.1-51.0) L 05/15/22 09:40 POC Hct 48 % (42-52) 05/08/22 23:44 MCV 91.6 fL (80.0-100.0) 05/15/22 09:40 MCH 31.0 pg (25.0-34.0) 05/15/22 09:40 MCHC 33.9 g/dL (32.0-36.0) 05/15/22 09:40 RDW Std Deviation 47.3 fL (36.4-46.3) H 05/15/22 09:40 RDW Coeff of Mariah 14.0 % (11.5-14.5) 05/15/22 09:40 Plt Count 141 K/uL (130-400) D 05/15/22 09:40 MPV 11.3 fL (9.4-12.4) 05/15/22 09:40 Immature Gran % (Auto) 0.6 % 05/15/22 09:40 Neut % (Auto) 67.4 % 05/15/22 09:40 Lymph % (Auto) 16.8 % 05/15/22 09:40 [place] % (Auto) 14.0 % 05/15/22 09:40 Eos % (Auto) 0.8 % 05/15/22 09:40 Baso % (Auto) 0.4 % 05/15/22 09:40 Neut # (Auto) 5.39 K/uL (1.4-6.5) 05/15/22 09:40 Lymph # (Auto) 1.34 K/uL (1.2-3.4) 05/15/22 09:40 [place] # (Auto) 1.12 K/uL (0.24-0.82) H 05/15/22 09:40 Eos # (Auto) 0.06 K/uL (0-0.50) 05/15/22 09:40 Baso # (Auto) 0.03 K/uL (0-0.2) 05/15/22 09:40 Immature Gran # (Auto) 0.05 K/uL (0.00-0.02) H 05/15/22 09:40 Toxic Granulation 1+ 05/15/22 09:40 Toxic Vacuolation 1+ 05/10/22 04:21 Platelet Estimate Decreased (Normal) L 05/10/22 04:21 Polychromasia 1+ 05/13/22 09:56 Echinocytes 1+ 05/13/22 09:56 Acanthocytes (Spur) 1+ 05/13/22 09:56 POC pH 7.06 (7.35-7.45) L* 05/08/22 23:23 POC pCO2 23 mmHg (35-46) L 05/08/22 23:23 POC pO2 118 mmHg (80-95) H 05/08/22 23:23 POC HCO3 6 joseph/L (19-24) L 05/08/22 23:23 POC Total CO2 7 mmol/L (24-31) L* 05/08/22 23:23 POC Base Excess -24.0 joseph/L (-9-1.8) L 05/08/22 23:23 POC ABG O2 Sat 97.0 % (90-95) H 05/08/22 23:23 VBG pH 7.46 (7.36-7.41) H 05/12/22 05:55 POC Sodium 128 mmol/L (135-144) L 05/08/22 23:44 Sodium 142 mmol/L (136-145) 05/16/22 08:41 POC Potassium 6.3 mmol/L (3.3-5.0) H* 05/08/22 23:44 Potassium 3.7 mmol/L (3.5-5.1) 05/16/22 08:41 POC Chloride 100 mmol/L (101-112) L 05/08/22 23:44 Chloride 109 mmol/L (98-107) H 05/16/22 08:41 Carbon Dioxide 28 mmol/L (21-32) 05/16/22 08:41 POC Total CO2 10 mmol/L (24-31) L 05/08/22 23:44 Anion Gap 5 (3-11) 05/16/22 08:41 POC Anion Gap 25.0 mmol/L (16-25) 05/08/22 23:44 POC BUN 113 mg/dl (7-18) H* 05/08/22 23:44 BUN 8 mg/dl (6-23) 05/16/22 08:41 Creatinine 0.85 mg/dl (0.6-1.4) 05/16/22 08:41 POC Creatinine 4.3 mg/dl (0.6-1.3) H 05/08/22 23:44 Est Cr Clr Drug Dosing 82.9 ml/min 05/16/22 08:41 Est GFR ( Amer) 109.8 ml/min 05/16/22 08:41 Est GFR (Non-Af Amer) 94.7 ml/min 05/16/22 08:41 BUN/Creatinine Ratio 9.4 (10-20) L 05/16/22 08:41 Glucose 241 mg/dl (70-99(Fasting)) H 05/16/22 08:41 POC Glucose 259 mg/dl (70-99) H 05/17/22 11:27 POC Glucose (other) > 700 mg/dl (70-99) H* 05/08/22 23:44 Estimat Average Glucose 364 mg/dl 05/09/22 03:43 Hemoglobin A1c 14.3 % (4.5-5.6) H 05/09/22 03:43 Lactate 1.6 mmol/L (0.4-2.0) 05/09/22 01:27 Calcium 8.0 mg/dl (8.5-10.1) L 05/16/22 08:41 POC Ioniz Calcium [place] 1.15 mmol/l (1.12-1.32) 05/08/22 23:44 Ionized Calcium 1.07 mmol/L (1.12-1.32) L 05/10/22 05:30 Phosphorus 2.1 mg/dl (2.5-4.9) L 05/12/22 05:55 Magnesium 1.8 mg/dl (1.7-2.4) 05/16/22 08:41 Total Bilirubin 0.5 mg/dl (0.2-1.0) 05/13/22 09:56 Direct Bilirubin 0.2 mg/dl (0-0.2) 05/13/22 09:56 AST 35 U/L (13-39) 05/13/22 09:56 ALT 25 U/L (7-52) 05/13/22 09:56 Alkaline Phosphatase 104 U/L (34-104) 05/13/22 09:56 Total Creatine Kinase 326 U/L (30-223) H 05/08/22 23:26 Troponin I High Sens 155.3 pg/ml (0-20) H* D 05/10/22 04:21 Total Protein 5.7 gm/dl (6.0-8.3) L 05/13/22 09:56 Albumin 2.6 gm/dl (3.4-5.0) L 05/13/22 09:56 Triglycerides 389 mg/dl (0-150) H 05/09/22 09:41 Lipase 63 U/L (11-82) 05/13/22 09:56 Procalcitonin 0.75 ng/ml (0-0.5) H 05/11/22 06:50 Urine Color Yellow 05/09/22 01:36 Urine Appearance Clear (Clear) 05/09/22 01:36 Urine pH 5.0 (4.5-7.5) 05/09/22 01:36 Ur Specific [place] 1.022 (1.000-1.030) 05/09/22 01:36 Urine Protein 2+ (Negative) H 05/09/22 01:36 Urine Glucose (UA) 3+ (Negative) H 05/09/22 01:36 Urine Ketones 1+ (Negative) H 05/09/22 01:36 Urine Blood 2+ (Negative) H 05/09/22 01:36 Urine Nitrite Negative (Negative) 05/09/22 01:36 Urine Bilirubin Negative (Negative) 05/09/22 01:36 Urine Urobilinogen Negative (Negative) 05/09/22 01:36 Ur Leukocyte Esterase Negative (Negative) 05/09/22 01:36 Urine WBC (Auto) 1-5 /hpf (0-5) 05/09/22 01:36 Urine RBC (Auto) 5-10 /hpf (0-4) H 05/09/22 01:36 U Hyaline Cast (Auto) 5-10 /lpf (0-5) H 05/09/22 01:36 U Epithel Cells (Auto) 20-30 /lpf (0-5) H 05/09/22 01:36 Urine Bacteria (Auto) Negative (Negative) 05/09/22 01:36 Nasal Screen MRSA (PCR) Negative (Negative) 05/09/22 04:00 Stl C. diff Tox B Gene Negative Cdiff Gene (Neg) 05/15/22 16:45 Ethyl Alcohol mg/dL < 10.0 mg/dl (<10.0) 05/09/22 05:34 Adenovirus (PCR) Not Detected (NotDetected) 05/09/22 Unknown B. pertussis DNA (PCR) Not Detected (NotDetected) 05/09/22 Unknown B.parapertussis DNA PCR Not Detected (NotDetected) 05/09/22 Unknown C. pneumoniae DNA (PCR) Not Detected (NotDetected) 05/09/22 Unknown Coronavirus OC43 (PCR) Not Detected (NotDetected) 05/09/22 Unknown Coronavirus HKU1 (PCR) Not Detected (NotDetected) 05/09/22 Unknown Coronavirus 229E (PCR) Not Detected (NotDetected) 05/09/22 Unknown SARS-CoV-2 (PCR) Not Detected (NotDetected) 05/09/22 Unknown Coronavirus NL63 (PCR) Not Detected (NotDetected) 05/09/22 Unknown Human Metapneumovir PCR Not Detected (NotDetected) 05/09/22 Unknown Influenza Type A (PCR) Not Detected (NotDetected) 05/09/22 Unknown Influenza Type B (PCR) Not Detected (NotDetected) 05/09/22 Unknown M. pneumoniae (PCR) Not Detected (NotDetected) 05/09/22 Unknown Parainfluenza 1 (PCR) Not Detected (NotDetected) 05/09/22 Unknown Parainfluenza 2 (PCR) Not Detected (NotDetected) 05/09/22 Unknown Parainfluenza 3 (PCR) Not Detected (NotDetected) 05/09/22 Unknown Parainfluenza 4 (PCR) Not Detected (NotDetected) 05/09/22 Unknown RSV (PCR) Not Detected (NotDetected) 05/09/22 Unknown Entero/Rhino (PCR) Not Detected (NotDetected) 05/09/22 Unknown Impressions Chest X-Ray 05/08/22 23:05 XR chest 1V portable supine CLINICAL HISTORY: Sepsis. COMPARISON STUDY: Chest radiograph January 13, 2022. FINDINGS: No pneumothorax or pleural effusion is present. Lower lung predominant interstitial thickening has minimally progressed. Mild mediastinal widening is likely due to supine technique. There is no evidence for pulmonary edema. IMPRESSION: Slight increase in lower lung predominant interstitial thickening. This favors interstitial lung disease. No definite consolidation. ACT 112: Negative or not required by law. Electronically signed by: Cassius Perez M.D. 05/09/2022 7:[address] 05/08/22 23:07 CT head/brain wo con CLINICAL HISTORY: 62 years-old Male with ams. Acutely altered mental status TECHNIQUE: Multiple axial CT images of the head were obtained without contrast. A dose lowering technique was utilized adhering to the principles of ALARA. CT DOSE: 959.77 mGy.cm COMPARISON: None. FINDINGS: No acute intracranial hemorrhage, midline shift, intracranial mass, hydrocephalus, territorial ischemia or abnormal extra-axial collection. The calvarium is intact. Prior bilateral lens replacement. The paranasal sinuses, mastoid air cells, and middle ear cavities are clear. IMPRESSION: No acute intracranial abnormality. ACT 112: Negative or not required by law. The above report was generated using voice recognition software. It may contain grammatical, syntax or spelling errors. Electronically signed by: Reece Catalan M.D. 05/09/2022 6:39 AM Gallbladder Ultrasound 05/10/22 17:34 US gallbladder HISTORY: 62 years-old Male acute pancreatitis, r/o cholelithiasis acute right upper quadrant abdominal pain COMPARISON: CT abdomen and pelvis 05/09/2022 TECHNIQUE: Multiple real-time sonographic images of the abdominal right upper quadrant were obtained assessing grayscale appearance and color flow FINDINGS: The pancreas is mostly obscured by bowel gas. The liver measures 16.67 m in length and is unremarkable. Trace free fluid within the upper abdomen. Mild gallbladder distention with biliary sludge. No shadowing cholelithiasis or gallbladder wall thickening. Sonographic Butler sign was not reported. Normal common bile duct, 4 mm. The imaged right kidney is unremarkable without hydronephrosis. IMPRESSION: 1. Gallbladder distention with biliary sludge. No cholelithiasis or gallbladder wall thickening identified to suggest acute cholecystitis. 2. No biliary ductal dilation. 3. Trace free fluid of the upper abdomen, likely related to the acute pancreatitis described on yesterday's CT exam. ACT 112: Negative or not required by law. The above report was generated using voice recognition software. It may contain grammatical, syntax or spelling errors. Electronically signed by: Reece Catalan M.D. 05/10/2022 6:37 PM Abdomen/Pelvis CT 05/16/22 12:44 CT OF THE ABDOMEN AND PELVIS WITHOUT CONTRAST CLINICAL HISTORY: lower abdominal pain, ff up acute pancreatitis COMPARISON STUDY: CT of the abdomen and pelvis May 11, 2022. TECHNIQUE: Axial images of the abdomen and pelvis were obtained without IV contrast. Images were reviewed in the axial, sagittal, and coronal planes. Automated exposure control was utilized for the study. A dose lowering technique was utilized adhering to the principles of ALARA. FINDINGS: Trace bilateral pleural effusions are again noted. No pneumatosis, free air or portal venous gas is present. Evaluation of the abdomen and pelvis is suboptimal on this unenhanced examination. Liver, spleen, adrenal glands and kidneys are unremarkable. There is no hydronephrosis. There is no biliary or pancreatic ductal dilatation. Mild bilateral perinephric stranding is unchanged. Peripancreatic stranding and fluid has improved. There are no peripancreatic fluid collections. There is no evidence for a bowel obstruction. Moderate wall thickening of the mid to distal descending colon and sigmoid colon with associated pericolonic stranding and fluid has slightly improved. No new sites of bowel wall thickening are identified. IMPRESSION: 1. Persistent, but slightly improved, colitis involving the distal descending colon and sigmoid colon. This could be ischemic or infectious in etiology. No pneumatosis, free air or portal venous gas. 2. Interval improvement in findings consistent with acute pancreatitis. 3. No bowel obstruction. ACT 112: Negative or not required by law. Electronically signed by: Cassius Perez M.D. 05/16/2022 2:36 PM Medications Administered Current Inpatient Medications Acetaminophen (Acetaminophen 325 Mg Tab) 650 mg PO Q4H PRN PRN Reason: Pain or Fever Stop: 06/15/22 16:58 Last Admin: 05/16/22 17:15 Dose: 650 mg Albuterol (Albuterol Hfa 8 Gm Inhaler) 2 puffs INH Q4 PRN PRN Reason: Shortness Of Breath Or Wheezing Stop: 06/08/22 03:32 Amoxicillin/Clavulanate Potassium (Amoxicillin/Clavulanate 875 Mg Tab) 1 tab PO BIDM [facility] Stop: 05/19/22 16:59 Last Admin: 05/17/22 08:25 Dose: 1 tab Atorvastatin Calcium (Atorvastatin 40 Mg Tab) [facility] Stop: 06/08/22 08:59 Last Admin: 05/17/22 08:25 Dose: 80 mg Clopidogrel Bisulfate (Clopidogrel Bisulfate 75 Mg Tab) 75 mg PO QAM [facility] Stop: 06/08/22 08:59 Last Admin: 05/11/22 10:01 Dose: Not Given Dextrose (Dextrose 50% 50 Ml Syringe) 25 - 50 ml IV UD PRN; Protocol PRN Reason: Hypoglycemia Protocol Stop: 06/08/22 00:26 Dextrose (Dextrose 50% 50 Ml Syringe) 25 - 50 ml IV UD PRN; Protocol PRN Reason: Hypoglycemia Protocol Stop: 06/08/22 03:59 Last Admin: 05/13/22 07:30 Dose: 50 ml Glucagon (Glucagon For Inj 1 Mg Vial) 1 mg IM UD PRN; Protocol PRN Reason: Hypoglycemia Protocol Stop: 06/08/22 03:59 Glucose (Glucose 40% Gel 15 Gm Tube) 15 - 30 gm PO UD PRN; Protocol PRN Reason: Hypoglycemia Protocol Stop: 06/08/22 03:59 Glucose (Glucose 10 Tab/Tube) 4 - 8 tab PO UD PRN; Protocol PRN Reason: Hypoglycemia Protocol Stop: 06/08/22 03:59 Heparin Sodium (Porcine) (Heparin Sod 5,000 Unit/0.5 Ml Vial) 5,000 units SQ Q12 NELI Stop: 06/09/22 20:59 Last Admin: 05/11/22 10:01 Dose: Not Given Insulin Aspart (Insulin Aspart Per Unit) 0 units SC ACHS [facility]; Protocol Stop: 06/10/22 11:29 Last Admin: 05/17/22 13:01 Dose: 8 units Insulin Glargine (Lantus Per Unit Charge) 0 units SQ QAM NELI; Protocol Stop: 06/16/22 08:59 Last Admin: 05/17/22 08:52 Dose: 20 units Lactobacillus Acidophilus (Advanced Probiotic 1250 Mg Capsule) 2 cap PO DAILY [facility] Stop: 06/15/22 08:59 Last Admin: 05/17/22 08:25 Dose: 2 cap Losartan Potassium (Losartan Potassium 50 Mg Tab) 50 mg PO QAM [facility] Stop: 06/09/22 10:44 Last Admin: 05/13/22 08:27 Dose: 50 mg Metoprolol Succinate (Metoprolol Succ 25mg Ext Rel Tab) 25 mg PO QAM [facility] Stop: 06/09/22 10:44 Last Admin: 05/17/22 08:25 Dose: 25 mg Miscellaneous (Carbohydrates For Hypoglycemia ) 15 - 30 gm PO UD PRN PRN Reason: Hypoglycemia Protocol Stop: 06/08/22 00:26 Last Admin: 05/14/22 07:08 Dose: 15 gm Miscellaneous (Carbohydrates For Hypoglycemia ) 15 - 30 gm PO UD PRN PRN Reason: Hypoglycemia Treatment Stop: 06/08/22 03:59 Miscellaneous Information (Pharmacy Glycemic Mgmt Consult) 1 each N/A UD PRN PRN Reason: Consult Stop: 06/08/22 03:32 Multivitamins (Multivitamin Tab) [facility] [place] Stop: 06/08/22 08:59 Last Admin: 05/17/22 08:25 Dose: 1 tab Pantoprazole Sodium (Pantoprazole 40 Mg Tab) 40 mg PO QAM [facility] Stop: 06/09/22 10:44 Last Admin: 05/17/22 08:25 Dose: 40 mg Umeclidinium Chestnut (Umeclidinium Chestnut 62.5mcg/Blister 7 Puffs/Inhaler) 1 puffs INH DAILY [facility] Stop: 06/08/22 08:59 Last Admin: 05/17/22 08:24 Dose: 1 puffs
[2022-05-17] MEDS: HEPARIN SOD 5,000 UNIT/0.5 ML VIAL SQ SCH (21:37)
[2022-05-18] MEDS: AMOXICILLIN/CLAVULANATE 875 MG TAB PO SCH ×2 (07:48→18:13)
[2022-05-18] MEDS: UMECLIDINIUM BROMIDE 62.5MCG/BLISTER 7 PUFFS/INHALER INH SCH (07:48)
[2022-05-18] MEDS: METOPROLOL SUCC 25MG EXT REL TAB PO SCH (07:49)
[2022-05-18] MEDS: ATORVASTATIN 40 MG TAB PO SCH (07:49)
[2022-05-18] MEDS: ADVANCED PROBIOTIC 1250 MG CAPSULE PO SCH (07:49)
[2022-05-18] MEDS: PANTOprazole 40 MG TAB PO SCH (07:49)
[2022-05-18] MEDS: MULTIVITAMIN TAB PO SCH (07:49)
[2022-05-18] MEDS: CLOPIDOGREL BISULFATE 75 MG TAB PO SCH (07:50)
[2022-05-18] MEDS: INSULIN ASPART PER UNIT SC SCH ×4 (10:00→21:08)
[2022-05-18] MEDS: LANTUS PER UNIT CHARGE SQ SCH (10:01)
--- NOTE | 2022-05-18 14:46 | Hospitalist Progress Note ---
Date of Service May 18, 2022 Assessment & Plan (1) DM2 (diabetes mellitus, type 2): Plan: - BG >1000 on admission, Bicarb 7, AG 32, k 6.6. pH 7 - HbA1c 14% on admission - s/p insulin drip for DKA, now resolved - continue Lantus and prandial per pharmacy protocol - automatic chief on board, recommendations: RECOMMENDATIONS POST-DISCHARGE: 1.) Get into a routine of checking BG, taking insulin, eating. 2.) Reinforce need to take 70/30 immediately before breakfast and supper meals daily, even when BG is within target range. 3.) Mindful of food choices/portion sizes. Avoid any sugar-sweetened drinks or alcohol. PRESCRIPTIONS NEEDED AT DISCHARGE: 1.) Insulin Aspart Protamine-Insulin Aspart 70-30 Pen (Generic Novolog Mix 70/30 Flexpen). 2.) Pen [place] 32 gauge x 5/32" (4mm). 3.) Look into coverage of [employer] CGM. - Continue to monitor closely - FSG AC+HS - diabetic diet - PCP follow up for further management (2) Hypertension: Plan: - Continue metoprolol - holding losartan as patient has been normotensive - can likely discontinue at discharge with PCP follow up with BP remains stable (3) Abnormal gall bladder diagnostic imaging: Plan: - gall bladder sludge noted - possible etiology of pancreatitis from earlier in admission, now resolved - general surgery consulted and plan for likely cholecystectomy as outpatient (4) Pneumonia: Plan: - likely aspiration - continue Augmentin for 7 day course (last day today) - improving symptoms - on RA (5) Hyperlipidemia: Plan: - continue statin (6) H/O TIA (transient ischemic attack) and stroke: Plan: - continue statin, plavix (7) ILD (interstitial lung disease): Plan: - continue inhalers (8) GERD (gastroesophageal reflux disease): Plan: - continue PPI Plan DVT ppx: heparin SC Code Status: Full Code Dispo: awaiting SNF placement Admission and Anticipated Discharge Date Admission Date: May 09, 2022 Supervising Physician Co-Signing Physician Notes Patient seen and examined at bedside. Agree with the A/P as above. Subjective Seen in 387-2 in follow up for DKA/HHS and pancreatitis. Feeling much improved. Still endorses feeling weaker than baseline. Denies fever, chills, lightheadedness, chest pain, shortness of breath, n/v, dysuria. Awaiting placement. Review of Systems Review of Systems: At least ten systems reviewed and negative except as noted in the HPI. Physical Exam Physical Exam: Gen: WD/WN, NAD, sitting in bed, A&Ox3 HEENT: Normocephalic, atraumatic, conjunctivae moist, sclerae anicteric, mucous membranes moist Lung: Clear to Auscultation bilaterally, no wheezes/rales/rhonchi Heart: Regular rate, regular rhythm, no murmurs, rubs, or gallops Abdomen: Soft, NT, ND +BS x 4 Extremities: no edema Skin: Warm, no rash Results & Data Results & Data ([facility]) Vital Signs (Past 12 Hours) Vital Signs Temp Pulse Resp BP Pulse Ox O2 Del Method 05/18/22 08:01 36.4 C L 92 H 16 126/74 98 Room Air Diagnostic Findings Chest X-Ray 05/08/22 23:05 XR chest 1V portable supine CLINICAL HISTORY: Sepsis. COMPARISON STUDY: Chest radiograph January 13, 2022. FINDINGS: No pneumothorax or pleural effusion is present. Lower lung predominant interstitial thickening has minimally progressed. Mild mediastinal widening is likely due to supine technique. There is no evidence for pulmonary edema. IMPRESSION: Slight increase in lower lung predominant interstitial thickening. This favors interstitial lung disease. No definite consolidation. ACT 112: Negative or not required by law. Electronically signed by: Cassius Perez M.D. 05/09/2022 7:[address] 05/08/22 23:07 CT head/brain wo con CLINICAL HISTORY: 62 years-old Male with ams. Acutely altered mental status TECHNIQUE: Multiple axial CT images of the head were obtained without contrast. A dose lowering technique was utilized adhering to the principles of ALARA. CT DOSE: 959.77 mGy.cm COMPARISON: None. FINDINGS: No acute intracranial hemorrhage, midline shift, intracranial mass, hydrocephalus, territorial ischemia or abnormal extra-axial collection. The calvarium is intact. Prior bilateral lens replacement. The paranasal sinuses, mastoid air cells, and middle ear cavities are clear. IMPRESSION: No acute intracranial abnormality. ACT 112: Negative or not required by law. The above report was generated using voice recognition software. It may contain grammatical, syntax or spelling errors. Electronically signed by: Reece Catalan M.D. 05/09/2022 6:39 AM Abdomen/Pelvis CT 05/08/22 23:51 CT OF THE ABDOMEN AND PELVIS WITHOUT CONTRAST CLINICAL HISTORY: Abdominal pain, AMS, ARF, DKA. COMPARISON STUDY: CT of the abdomen and pelvis March 23, 2022. TECHNIQUE: Axial images of the abdomen and pelvis were obtained without IV contrast. Images were reviewed in the axial, sagittal, and coronal planes. Automated exposure control was utilized for the study. A dose lowering technique was utilized adhering to the principles of ALARA. FINDINGS: Previously described nodules within the lower lungs are obscured on this exam due to respiratory motion artifact. Lower lung groundglass opacities are noted. There is also suspected underlying interstitial lung disease with mild bronchiectasis and subpleural reticulation. Evaluation of the abdomen and pelvis is suboptimal on this unenhanced exam. No pneumatosis, free air or portal venous gas is present. Unenhanced images of the liver, spleen, adrenal glands and kidneys are unremarkable. There is no hydronephrosis. Bilateral perinephric stranding has decreased. There is suggestion of mild stranding adjacent to the pancreas. No peripancreatic fluid collection is present. No biliary or pancreatic ductal dilatation is identified on this exam. There is no pericholecystic infiltration. Moderate amount of stool within the colon and rectum is present. Cecum is moderately distended. However, there is no evidence for a bowel obstruction or volvulus. No lymphadenopathy is present. No acute fracture or suspicious lesion within the visualized skeletal structures is identified. IMPRESSION: 1. Subtle stranding adjacent to the pancreas. This favors acute pancreatitis and could be correlated with serum lipase. This finding will be called/faxed to ordering provider at time of dictation. 2. Cecal distention without evidence for an obstruction. No volvulus. Moderate amount stool within the colon and rectum. 3. Groundglass opacities within the lower lungs. These may be atelectatic. However, an infectious process could appear similar. 4. No urinary calculi. No hydronephrosis. Distended bladder. ACT 112: Negative or not required by law. Electronically signed by: Cassius Perez M.D. 05/09/2022 7:42 AM Gallbladder Ultrasound 05/10/22 17:34 US gallbladder HISTORY: 62 years-old Male acute pancreatitis, r/o cholelithiasis acute right upper quadrant abdominal pain COMPARISON: CT abdomen and pelvis 05/09/2022 TECHNIQUE: Multiple real-time sonographic images of the abdominal right upper quadrant were obtained assessing grayscale appearance and color flow FINDINGS: The pancreas is mostly obscured by bowel gas. The liver measures 16.67 m in length and is unremarkable. Trace free fluid within the upper abdomen. Mild gallbladder distention with biliary sludge. No shadowing cholelithiasis or gallbladder wall thickening. Sonographic Butler sign was not reported. Normal common bile duct, 4 mm. The imaged right kidney is unremarkable without hydronephrosis. IMPRESSION: 1. Gallbladder distention with biliary sludge. No cholelithiasis or gallbladder wall thickening identified to suggest acute cholecystitis. 2. No biliary ductal dilation. 3. Trace free fluid of the upper abdomen, likely related to the acute pancreatitis described on yesterday's CT exam. ACT 112: Negative or not required by law. The above report was generated using voice recognition software. It may contain grammatical, syntax or spelling errors. Electronically signed by: Reece Catalan M.D. 05/10/2022 6:37 PM Abdomen/Pelvis CT 05/11/22 09:[address] WITHOUT CONTRAST CT DOSE: 392.30 mGycm HISTORY: Acute generalized abdominal pain in a patient with acute pancreatitis, abdominal pain, ff up acute pancreatitis TECHNIQUE: Multiaxial CT images of the abdomen and pelvis were performed without contrast. A dose lowering technique was utilized adhering to the principles of ALARA. COMPARISON STUDY: CT abdomen and pelvis 05/09/2022, 03/23/2022. FINDINGS: The heart is upper limits of normal in size. Coronary artery and aortic annular calcifications. Trace pleural effusions. Intralobular septal thickening with groundglass densities of the lung bases redemonstrated. Mild bronchiectasis. Stable 7 mm left lower lobe and 5 mm right middle lobe pulmonary nodules. No pneumatosis or pneumoperitoneum. The unenhanced spleen is unremarkable. Thickening of the adrenal glands suggestive of hyperplasia. Mild interstitial and peripancreatic inflammation redemonstrated. Unchanged subcentimeter pancreatic calcifications suggestive of chronic pancreatitis. No acute peripancreatic fluid collection. Distended gallbladder with mild wall thickening. No cholelithiasis identified. Unremarkable liver. Small volume of abdominal pelvic ascites has progressed from the prior study. Mild nonspecific bilateral perinephric stranding. Punctate nonobstructing calculus of the interpolar left kidney. No hydronephrosis. A Roman catheter is present within a decompressed urinary bladder. Urinary bladder wall thickening with intraluminal air. Prostamegaly. Atherosclerosis of the aorta without aneurysm. No intra-articular loose body. Mild wall thickening of the distal stomach and duodenum, likely reactive. Scattered large and small bowel air-fluid levels. Small bowel loops measure up to 3.3 cm. Moderate rectal fecal retention. Circumferential wall thickening of the sigmoid colon and distal descending colon is new from prior. Mild wall thickening involves a few loops of small bowel within the abdominal right lower quadrant. The appendix is not definitively seen. IMPRESSION: 1. Worsening findings of acute pancreatitis. No acute peripancreatic fluid collection. 2. Small pleural effusions with new trace abdominal and pelvic ascites. 3. Distended gallbladder without cholelithiasis. 4. Moderate fecal retention. There is mild wall thickening involving several loops of large and small bowel along with mildly dilated small bowel within the central abdomen. Findings may be secondary to fluid overload with ileus. A nonspecific enterocolitis could appear similarly. 5. Punctate left renal calculus. 6. Additional findings as above. ACT 112: Negative or not required by law. The above report was generated using voice recognition software. It may contain grammatical, syntax or spelling errors. Dictated: 05/11/2022 11:16 AM Transcribed: 05/11/2022 11:46 AM Maureen [id number] [email or web address] Electronically signed by: Reece Catalan M.D. 05/11/2022 12:02 PM Abdomen/Pelvis CT 05/16/22 12:44 CT OF THE ABDOMEN AND PELVIS WITHOUT CONTRAST CLINICAL HISTORY: lower abdominal pain, ff up acute pancreatitis COMPARISON STUDY: CT of the abdomen and pelvis May 11, 2022. TECHNIQUE: Axial images of the abdomen and pelvis were obtained without IV contrast. Images were reviewed in the axial, sagittal, and coronal planes. Automated exposure control was utilized for the study. A dose lowering technique was utilized adhering to the principles of ALARA. FINDINGS: Trace bilateral pleural effusions are again noted. No pneumatosis, free air or portal venous gas is present. Evaluation of the abdomen and pelvis is suboptimal on this unenhanced examination. Liver, spleen, adrenal glands and kidneys are unremarkable. There is no hydronephrosis. There is no biliary or pancreatic ductal dilatation. Mild bilateral perinephric stranding is unchanged. Peripancreatic stranding and fluid has improved. There are no peripancreatic fluid collections. There is no evidence for a bowel obstruction. Moderate wall thickening of the mid to distal descending colon and sigmoid colon with associated pericolonic stranding and fluid has slightly improved. No new sites of bowel wall thickening are identified. IMPRESSION: 1. Persistent, but slightly improved, colitis involving the distal descending colon and sigmoid colon. This could be ischemic or infectious in etiology. No pneumatosis, free air or portal venous gas. 2. Interval improvement in findings consistent with acute pancreatitis. 3. No bowel obstruction. ACT 112: Negative or not required by law. Electronically signed by: Cassius Perez M.D. 05/16/2022 2:36 PM
[2022-05-18] MEDS: HEPARIN SOD 5,000 UNIT/0.5 ML VIAL SQ SCH ×2 (17:24→21:09)
[2022-05-19] MEDS: UMECLIDINIUM BROMIDE 62.5MCG/BLISTER 7 PUFFS/INHALER INH SCH (07:35)
[2022-05-19] MEDS: ADVANCED PROBIOTIC 1250 MG CAPSULE PO SCH (07:36)
[2022-05-19] MEDS: METOPROLOL SUCC 25MG EXT REL TAB PO SCH (07:36)
[2022-05-19] MEDS: ATORVASTATIN 40 MG TAB PO SCH (07:36)
[2022-05-19] MEDS: CLOPIDOGREL BISULFATE 75 MG TAB PO SCH (07:36)
[2022-05-19] MEDS: PANTOprazole 40 MG TAB PO SCH (07:36)
[2022-05-19] MEDS: MULTIVITAMIN TAB PO SCH (07:36)
[2022-05-19] MEDS: HEPARIN SOD 5,000 UNIT/0.5 ML VIAL SQ SCH ×2 (07:36→21:39)
[2022-05-19] MEDS: INSULIN ASPART PER UNIT SC SCH ×4 (09:44→21:43)
[2022-05-19] MEDS: LANTUS PER UNIT CHARGE SQ SCH (09:44)
--- NOTE | 2022-05-19 12:45 | Pharmacy Report ---
Pharmacy Glycemic Short Note 2 - Date of Service May 19, 2022 - Glycemic Short BSG Results (Last 24 hours): 05/18/22 05/18/22 05/19/22 17:02 20:41 07:48 POC Glucose 93 108 H 188 H 05/19/22 05/19/22 12:02 12:03 POC Glucose 352 H* 403 H* OUTPATIENT ANTIDIABETIC REGIMEN: * Non-adherence likely * Lantus 36 units SC HS * Novolog 02/13/10 units TIDM with additional correctional insulin of 25 mg/dL/unit * Metformin * HbA1c 14.3% on 05/09/22 ASSESSMENT: 05/19/22 * Patient received total of 35 units of insulin yesterday, of which 17 units were basal insulin * Fasting BSG 188 mg/dL - per scale will get higher basal dose, 20 units this AM which is appropriate * Lunch BSG trending upward, discussed with RN and patient eating [place] toast/syrup for breakfast. I provided loosened novolog parameters a lunch time check as patient's BSGs typically trend down quickly from lunch to dinner 05/16/22 * Mr Tristan's BSGs yesterday were [phone] mg/dL. Patient received 26 units of insulin (12 units of basal and 14 units of bolus). * Fasting today was 223 mg/dL which is significantly elevated compared to yesterday. Lunch BSG was 317 mg/dL. * For elevated fasting, gave 5 units of Lantus this morning plus give HS Lantus at dinnertime. Switch once daily Lantus to daily with breakfast. * Tighten CR as patient's BSGs trend upwards significantly after PO intake. 05/14/22: * Patient received total of 19 units of insulin yesterday, of which 15 units were basal (~60% reduction of basal from day prior for low BSG) * BSG this AM still low this AM 62 mg/dL - will continue to reduce basal. Would have expected BSGs trending upward 05/13/22: * Patient received total of 42 units of insulin yesterday, of which 36 units were basal * Fasting BSG low this AM at 43 mg/dL - unclear for reasoning as he has received similar basal days prior and BSGs stable * Given amp of dextrose this AM, RN states asymptomatic. I loosened CF/CR * Lunch BSG still < 100 - will have reduced scale for lantus at bedtime 05/12/22: * Patient received total 45 units of insulin yesterday: 35 units basal + 10 units bolus. * BSGs yesterday were [phone] mg/dl. * Fasting BSG today was 112 mg/dl. Continued basal insulin at almost the same dose (36 units) but all to be given at HS today. * Post prandial BSGs were elevated yesterday. Novolog parameters tightened today. Re-assess this tomorrow. 05/11/22: * Insulin drip was discontinued yesterday evening. BSGs trended up at HS but after receiving HS dose of Lantus (20 units), they trended down again overnight. * Fasting BSG today was 128 mg/dl. * Patient was NPO this AM for lap cholecystectomy today. But surgery cancelled later. * AM dose of Lantus was moved to noon, plan is to combine Lantus AM and PM doses into single dose at HS tomorrow to match home regimen. Added HS Lantus on a scale. 05/10/22 * Patient clinically improving, labs normal, blood sugar still elevated, tighten goal range for insulin drip, change IV Fluids from D5 to 1/2NS, and give another dose of basal insulin, anticipating stopping drip this afternoon/evening. 05/09/22 * 62 yo M admitted with confusion 2nd mixed HHS and DKA picture. Low CO2 and p H, elevated anion gap, (indicative of DKA) plus effective osmolality >320 (indicative of HHS) * Discussed fluids at ICU rounds - would normally add in potassium to fluids at this time but given stable potassium and OMARI along with some potassium in planned 3L LR bolus, but will hold off for now with plans for provider to reassess at next lab draw. Also discussed corrected sodium being elevated with eventual need to change to a fluid with less Na content. Again, provider to reassess at next lab draw. Ongoing aggressive fluid resuscitation planned. * Discussed plan for transition of insulin drip at ICU rounds - will not transition now. However, OK to provide very low dose Lantus to help with eventual transition. * HHS and DKA will both need to be corrected / addressed prior to transition of drip and reduction of goal range - improvement in mental status hopefully back to baseline (for HHS) along with improvement in CO2, anion gap (for DKA) will both be necessary. Hopefully these will be achieved by tomorrow AM and transition can be attempted at that time PLAN FOR INPATIENT GLYCEMIC CONTROL: * Hold outpatient oral diabetes medications * Basal insulin * Lantus 17-20 units daily based upon bsg value * Bolus insulin: * NovoLog per scale ACHS or Q6h * Correction Factor 30 mg/dl/unit with breakfast, 40 mg/dl/unit rest of day * Carb Ratio 1 unit for every 5 gm of carb consumed with breakfast, 1 unit for every 12 gm of carbs for rest of day
--- NOTE | 2022-05-19 14:07 | Hospitalist Progress Note ---
Date of Service May 19, 2022 Assessment & Plan (1) DM2 (diabetes mellitus, type 2): Plan: - BG >1000 on admission, Bicarb 7, AG 32, k 6.6. pH 7 - HbA1c 14% on admission - s/p insulin drip for DKA, now resolved - continue Lantus and prandial per pharmacy protocol -elevated BSG around noontime but glycemic pharmacy adjusting - breastfeeding educator on board, recommendations: RECOMMENDATIONS POST-DISCHARGE: 1.) Get into a routine of checking BG, taking insulin, eating. 2.) Reinforce need to take 70/30 immediately before breakfast and supper meals daily, even when BG is within target range. 3.) Mindful of food choices/portion sizes. Avoid any sugar-sweetened drinks or alcohol. PRESCRIPTIONS NEEDED AT DISCHARGE: 1.) Insulin Aspart Protamine-Insulin Aspart 70-30 Pen (Generic Novolog Mix 70/30 Flexpen). 2.) Pen [place] 32 gauge x 5/32" (4mm). 3.) Look into coverage of [employer] CGM. - Continue to monitor closely - FSG AC+HS - diabetic diet - PCP follow up for further management (2) Hypertension: Plan: - Continue metoprolol - holding losartan as patient has been normotensive - can likely discontinue at discharge with PCP follow up with BP remains stable (3) Abnormal gall bladder diagnostic imaging: Plan: - gall bladder sludge noted - possible etiology of pancreatitis from earlier in admission, now resolved - general surgery consulted and plan for likely cholecystectomy as outpatient (4) Pneumonia: Plan: - likely aspiration - continue Augmentin for 7 day course (last day today) - improving symptoms - on RA (5) Hyperlipidemia: Plan: - continue statin (6) H/O TIA (transient ischemic attack) and stroke: Plan: - continue statin, plavix (7) ILD (interstitial lung disease): Plan: - continue inhalers (8) GERD (gastroesophageal reflux disease): Plan: - continue PPI Plan DVT ppx: heparin SC Code Status: Full Code Dispo: awaiting SNF placement Admission and Anticipated Discharge Date Admission Date: May 09, 2022 Supervising Physician Co-Signing Physician Notes Patient seen and examined at bedside. Agree with the A/P as above. Subjective Seen in 387-2 in follow up for DKA/HHS and pancreatitis. Feeling much improved. Ready for discharge. Tolerating diet without issue. Had a bowel movement this morning. Denies fever, chills, lightheadedness, chest pain, shortness of breath, n/v, dysuria, diarrhea or constipation. Review of Systems Review of Systems: At least ten systems reviewed and negative except as noted in the HPI. Physical Exam Physical Exam: Gen: WD/WN, NAD, sitting in bed, A&Ox3 HEENT: Normocephalic, atraumatic, conjunctivae moist, sclerae anicteric, mucous membranes moist Lung: Clear to Auscultation bilaterally, no wheezes/rales/rhonchi Heart: Regular rate, regular rhythm Abdomen: Soft, NT, ND +BS x 4 Extremities: no edema Skin: Warm, no rash Results & Data Results & Data ([facility]) Vital Signs (Past 12 Hours) Vital Signs Temp Pulse Resp BP Pulse Ox O2 Del Method 05/19/22 07:37 36.7 C 90 16 102/65 99 Room Air
[2022-05-20] MEDS ORDERED: INSULIN ASPART PER UNIT SC SCH (07:30)
[2022-05-20] MEDS: METOPROLOL SUCC 25MG EXT REL TAB PO SCH (08:09)
[2022-05-20] MEDS: CLOPIDOGREL BISULFATE 75 MG TAB PO SCH (08:09)
[2022-05-20] MEDS: HEPARIN SOD 5,000 UNIT/0.5 ML VIAL SQ SCH (08:10)
[2022-05-20] MEDS: ATORVASTATIN 40 MG TAB PO SCH (08:10)
[2022-05-20] MEDS: PANTOprazole 40 MG TAB PO SCH (08:10)
[2022-05-20] MEDS: ADVANCED PROBIOTIC 1250 MG CAPSULE PO SCH (08:10)
[2022-05-20] MEDS: MULTIVITAMIN TAB PO SCH (08:10)
[2022-05-20] MEDS: UMECLIDINIUM BROMIDE 62.5MCG/BLISTER 7 PUFFS/INHALER INH SCH (08:11)
[2022-05-20] MEDS ORDERED: metFORMIN HCL ER 500 MG TABCR PO SCH ×2 (09:00)
[2022-05-20] MEDS: LANTUS PER UNIT CHARGE SQ SCH (09:08)
--- NOTE | 2022-05-20 13:50 | Discharge Summary ---
Date of Service May 20, 2022 Admission HPI Per Admitting Provider A 62-year-old male with past medical history significant for type 2 diabetes, uncontrolled diabetes, hyperlipidemia, history of acute pancreatitis, history of interstitial lung disease, history of emphysema, pulmonary nodules, hypertension, moderate aortic valve stenosis, history of TIA, GERD, chronic kidney disease, history of alcoholism, who lives at home with his son. He was brought in confused and found to be in DKA. As per the son, a couple of days ago, the patient had some vomiting. Yesterday, he was not feeling that great, and son went to work in the morning and when he came in around 10:[address] [facility], he found him confused, naked on the floor, and he called EMS and brought in here. The patient is currently only alert and awake, seems lethargic, can tell his name, knows that he is in the hospital, but could not get much history from the patient. He says he has some abdominal pain. Denies any chest pain or headache. As per son, no recent fever, cough, or any other symptoms. Could not get much history. The patient was 32 degrees temperature, in [facility]. White count is 13. His point of care pH was 7.06, bicarbonate is 6. His sodium was 126 when came in, repeat is 131; his potassium was 6.9 when he came in, currently 5.9. His sugars were 1300. Troponin is 100.1. Procalcitonin 3.3. BioFire is negative. CT head is okay. CT of abdomen and pelvis in the preliminary report, cecum is dilated with gas to approximately 8.5 x 12 cm, of uncertain cause. Blood pressure is okay. He received 4 L of fluids made about 1lt of urine as per nursing staff. His creatinine on presentation was 4.5, repeat is 3.9. Admission Exam Per Admitting Provider GENERAL: The patient is somewhat lethargic, oriented to name and place. VITAL SIGNS: Temperature 32.1, pulse 72, respiratory rate 18, blood pressure 140/64, oxygen 99% on room air. HEENT: Pupils equal, round and reactive to light. Oral mucosa dry. NECK: No JVD, no neck masses. CARDIOVASCULAR: S1 and S2 heard. Regular rate and rhythm. No murmur, no gallop. RESPIRATORY SYSTEM: Normal AP diameter. No accessory muscle use. No wheezing, no crackles. ABDOMEN: Soft, bowel sounds sluggish. Mild discomfort. No distention. CENTRAL NERVOUS SYSTEM: Alert, awake, and oriented to name and place, some confusion, lethargy. Speech, speaking in low voice. No facial droop. Moving extremities. EXTREMITIES: No edema, no erythema. Principal Diagnosis DKA, pancreatitis, OMARI, pneumonia Discharge Exam GENERAL: The patient is awake and alert, oriented x3 HEENT: Pupils equal, round and reactive to light. Oral mucosa dry. NECK: No JVD, no neck masses. CARDIOVASCULAR: S1 and S2 heard. Regular rate and rhythm. No murmur, no gallop. RESPIRATORY SYSTEM: Normal AP diameter. No accessory muscle use. No wheezing, no crackles. ABDOMEN: Soft, bowel sounds present Mild discomfort. No distention. CENTRAL NERVOUS SYSTEM: Alert, awake, and oriented x3. No facial droop. Moving extremities. EXTREMITIES: No edema, no erythema. Discharge Data Allergies Allergy/AdvReac Type Severity Reaction Status Date / Time erythromycin base Allergy Mild Abdominal Verified 05/09/22 01:01 Pain Consultations 05/09/22 00:58 ED Decision to Admit Stat 05/09/22 02:48 Consult Gastroenterology Routine 05/09/22 03:33 Consult Landscape Gardener Routine 05/09/22 08:00 Consult Nephrology Routine 05/11/22 08:13 Consult General Surgery Routine Procedures Performed Operation Date: 05/11/22 15:00 <No data on this case meets the specified criteria> Ordered Studies 05/08/22 23:07 CT head/brain wo con Stat 05/08/22 23:51 CT abd pelvis wo con Stat 05/10/22 17:34 US gallbladder Routine 05/11/22 09:59 CT Abd and Pelvis [CT abd pelvis wo con] Stat 05/16/22 12:44 CT abd pelvis wo con Routine Diabetes Follow up Diabetes Follow-up Needed for HgbA1c >9% Hospital Course (1) DM2 (diabetes mellitus, type 2): - BG >1000 on admission, Bicarb 7, AG 32, k 6.6. pH 7 - HbA1c 14% on admission - s/p insulin drip for DKA, now resolved - continue Lantus and prandial per pharmacy protocol -elevated BSG around noontime but glycemic pharmacy adjusting - assistant health educator on board, recommendations: RECOMMENDATIONS POST-DISCHARGE: 1.) Get into a routine of checking BG, taking insulin, eating. 2.) Reinforce need to take 70/30 immediately before breakfast and supper meals daily, even when BG is within target range. 3.) Mindful of food choices/portion sizes. Avoid any sugar-sweetened drinks or alcohol. PRESCRIPTIONS NEEDED AT DISCHARGE: 1.) Insulin Aspart Protamine-Insulin Aspart 70-30 Pen (Generic Novolog Mix 70/30 Flexpen). 2.) Pen Charleston 32 gauge x 5/32" (4mm). 3.) Look into coverage of Confidexe CGM. - Continue to monitor closely - FSG AC+HS - diabetic diet - PCP follow up for further management (2) Hypertension: - Continue metoprolol - holding losartan as patient has been normotensive - can likely discontinue at discharge with PCP follow up with BP remains stable (3) Abnormal gall bladder diagnostic imaging: - gall bladder sludge noted - possible etiology of pancreatitis from earlier in admission, now resolved - general surgery consulted and plan for likely cholecystectomy as outpatient (4) Pneumonia: - likely aspiration - continue Augmentin for 7 day course (last day today) - improving symptoms - on RA (5) Hyperlipidemia: - continue statin (6) H/O TIA (transient ischemic attack) and stroke: - continue statin, plavix (7) ILD (interstitial lung disease): - continue inhalers (8) GERD (gastroesophageal reflux disease): - continue PPI Plan DVT ppx: heparin SC Code Status: Full Code Dispo: awaiting SNF placement Total Time Total Time Spent Total Time Spent (In Minutes): 20 Total Time Includes: Examination of the Patient, Discharge Planning and Medication Reconciliation Discharge Plan Discharge Items Patient Disposition: [facility] Reason For Visit: CONFUSION Discharge Diagnosis: DKA, pancreatitis, colitis Condition on Discharge: Fair Health Concerns: assistant health educator recommendations after discharge: RECOMMENDATIONS POST-DISCHARGE: 1.) Get into a routine of checking BG, taking insulin, eating. 2.) Reinforce need to take 70/30 immediately before breakfast and supper meals daily, even when BG is within target range. 3.) Mindful of food choices/portion sizes. Avoid any sugar-sweetened drinks or alcohol. PRESCRIPTIONS NEEDED AT DISCHARGE: 1.) Insulin Aspart Protamine-Insulin Aspart 70-30 Pen (Generic Novolog Mix 70/30 Flexpen). 2.) Pen Charleston 32 gauge x 5/32" (4mm). 3.) Look into coverage of Confidexe CGM. Activity: As commented below Activity Comment: as per rehab Non-emergency contact: Primary Care Provider, Surgeon, Specialist and Rustic Fence Builder Call non-emergency contact if: you have any medication questions Follow-up/Referrals: Rodolfo Mejia MD [Physician] - Anabel Ortiz MD [Primary Care Provider] - Charlette Gonzalez MD [Physician] - Diet: Carb Consistent or DM2, Heart Healthy and Low Fat Addtl Attending Provider Instructions: You were admitted with diabetic ketoacidosis due to lack of insulin and required ICU admission initially. You were on an insulin drip that was eventually discontinued. You also had pancreatitis and given IV fluids with improvement in your symptoms. You also had colitis and were given antibiotics with improvement. You tolerated a diet and continued to improve. You were seen by physical therapy and were recommended to go to rehab for improving your strength. You should continue antibiotics for total of 14 days and continue with insulin therapy. You should follow up with a primary care doctor for ongoing insulin management. You were seen by surgery for gall bladder sludge and should follow up with them in the clinic for evaluation of removal of your gall bladder. Pending Studies at Discharge: No Stand-Alone Forms: My [facility] Skilled Items Patient informed of condition?: Yes DNR: No Discharge Level of Care: Acute rehab Communicable Disease: No Discharge Prognosis: Stable Lines: None Urinary Catheter: No Medications and DC Order Prescriptions: New Advanced Probiotic 625 mg (10 billion cell) Capsule 2 cap PO DAILY Qty: 30 0RF Continued metformin 1,000 mg tablet 1,000 mg PO BIDM Rx Instructions: TAKE THIS MEDICATION WITH MORNING AND EVENING MEALS omeprazole 20 mg capsule,delayed release(DR/EC) 20 mg PO DAILYBB multivitamin Tablet 1 tab PO QAM insulin aspart U-100 [Novolog Flexpen U-100 Insulin] 100 unit/mL (3 mL) insulin pen See Rx Instructions .ROUTE .COMPLEX Rx Instructions: 8 units daily with breakfast; 8 units with lunch ; 10 units supper if sugar > 125 add 1:25 max of 50 units per day acetaminophen [Acetaminophen Extra Strength] 500 mg Tablet 500 mg PO Q6H PRN (Reason: Pain) calcium carbonate [Calcium Antacid] 200 mg calcium (500 mg) Tablet,Chewable 200 mg PO DAILY PRN (Reason: Gi Upset) albuterol sulfate [Ventolin HFA] 90 mcg/actuation Hfa Aerosol Inhaler 2 puff INHALATION Q4 PRN (Reason: Shortness Of Breath Or Wheezing) clopidogrel 75 mg Tablet 75 mg PO QAM Qty: 30 0RF oxycodone 5 mg Tablet 5 mg PO Q4H PRN (Reason: pain) Qty: 5 0RF atorvastatin 80 mg tablet 80 mg PO QAM naproxen 500 mg tablet 500 mg PO BID PRN (Reason: Pain) cyclobenzaprine 5 mg tablet 5 mg PO BID PRN (Reason: Muscle Spasm) multivitamin Tablet 1 tab PO QAM Spiriva with HandiHaler 18 mcg Capsule, W/Inhalation Device 1 cap INHALATION DAILY Rx Instructions: puncture 1 cap using device; one dose = 2 inhalations metoprolol succinate 25 mg tablet extended release 24 hr 25 mg PO DAILY Changed insulin glargine [Lantus Solostar U-100 Insulin] 100 unit/mL (3 mL) insulin pen 20 unit SUBCUT HS Qty: 15 0RF Discontinued losartan 50 mg tablet 50 mg PO DAILY Discharge Orders: Discharge Order (Routine); Ordered 05/20/22 Ordered By: Dago Hunt/Other Patient Handouts: High Blood Sugar (Hyperglycemia), Hypoglycemia (Low Blood Sugar), Managing Type 2 Diabetes Admission Data Admit Date/Time: 05/09/22 02:15 Attending Provider: Dago Smith Admit Provider: Wenceslao Alexander Primary Care Provider: Anabel Ortiz Other Providers: Dago Smith ; Wenceslao Alexander ; Rodolfo Mejia ; Mac Blackwell ; Cathy Membreno ; Charlette Gonzalez ; [facility] ; [facility] ; Regla Torres Other Interventions: Discharge Summary Assessment (RN) Last Done: 05/20/22 08:27
== END 2022-05-20 10:34 | DRG 637 ==
LOC: ED 22:51 → 1E 05-09 02:15 → SUATTDRO 05-09 02:15 → 1E 05-09 02:54 → 2S 05-10 18:50 → 3N 05-14 18:47

== ENCOUNTER 2023-04-17 17:07 | Inpatient (IN) ==
--- NOTE | 2023-04-17 17:17 | ED Triage Note ---
Date of Service April 17, 2023 History of Present Illness This patient was briefly evaluated while in triage. An abbreviated physical exam was performed. This patient is a 63-year-old Male who presents to the ED for evaluation of leg weakness, chest tightness started yesterday on Plavix at [facility]-abnormal EKG Physical Exam GENERAL: NAD CARDIOVASCULAR: tachycardic RESPIRATORY: CTA ABDOMEN: BS x 4. Diffusely TTP. Initial orders for labs and / or imaging were placed and patient was placed in the waiting area until a bed is available. Please see further documentation for the full ED course. MDM / Impression Impression Impression: Chest pain, Weakness
--- NOTE | 2023-04-17 17:42 | XRay Report ---
XR chest 2V PA/lateral CLINICAL HISTORY: Chest pain, nonspecific COMPARISON STUDY: Chest radiograph May 08, 2022. FINDINGS: No pneumothorax or pleural effusion is present. No definite consolidation is identified. Lo wer lung predominant interstitial thickening has progressed since prior exam. Cardiac size is normal. Mediastinal contours are normal. No evidence for pulmonary edema. IMPRESSION: Progressive lower lung interstitial thickening. This favors interstitial lung disease. However, a superimposed infectious process cannot be excluded. ACT 112: Negative or not required by law. Electronically signed by: Cassius Perez M.D. 04/17/2023 5:39 PM
[2023-04-17 18:47] LABS: Basophils # (auto) 0.03 K/uL (0.00-0.20); Basophils % (auto) 0.3 %; Eosinophils # (auto) 0.05 K/uL (0.00-0.50); Eosinophils % (auto) 0.4 %; Hematocrit (blood only) 51.2 % (42.0-52.0); Immature Granulocytes # (auto) 0.04 K/uL (0.01-0.20); Immature Granulocytes % (auto) 0.3 %; Lymphocytes # (auto) 2.04 K/uL (1.20-3.40); Lymphocytes % (auto) 17.7 %; Mean Corpuscular Hemoglobin 30.6 pg (25.0-34.0); Mean Corpuscular Hgb Conc 35.2 g/dL (32.0-36.0); Mean Corpuscular Volume 87.1 fL (80.0-100.0); Mean Platelet Volume 11.9 fL (9.4-12.4); Monocytes # (auto) 0.76 K/uL (0.11-0.59); Monocytes % (auto) 6.6 %; Neutrophils % (auto) 74.7 %; Platelet Count 228 K/uL (130-400); RDW Coefficient of Variation 14.9 % (11.5-14.5); RDW Standard Deviation 47.5 fL (36.4-46.3); Red Blood Count 5.88 M/uL (4.70-6.10); White Blood Count 11.52 K/ul (4.8-10.8)
--- NOTE | 2023-04-17 18:52 | Emergency Department Note ---
Impression & Plan Chest pain, Weakness, DKA (diabetic ketoacidosis), Hyperglycemia ED Provider Note ED Provider Note NAME: АЛЕКСАНДР ALLEN AGE:63 SEX: Male : 1960 ARRIVES VIA: INFORMANT: Patient ED PROVIDER(s): Malia Grigsby DO CHIEF COMPLAINT: weakness, abdominal pain, referred by PCP HPI: This is a 63-year-old male presents emerged department due to concern for weakness, chest pain, and abdominal pain. He was seen and evaluated by PCP today and referred here for additional evaluation. 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 He denies fevers or chills. He states he has chronic nasal congestion that is unchanged that he attributes to seasonal allergies. He states he first began noting chest pain yesterday it has been intermittent, no change with position or exertion. He states he is also had intermittent lightheadedness. He states he didn't notice any abdominal pain until he was examined at the PCP's office. He denies any change in stools. He states he feels a sense of myalgias and arthralgias in his legs and they feel weak when he tries to walk. He denies any fall or syncope. Patient states he has not been testing his blood glucose at home recently because he ran out of test strips. He states he has been urinating more frequently although has not noted any blood. PAST MEDICAL HISTORY:See Below PAST SURGICAL HISTORY:See Below FAMILY HISTORY:See Below SOCIAL HISTORY:See Below HOME MEDICATIONS:See Below ALLERGIES:See Below VITALS:See Below PHYSICAL EXAMINATION: GENERAL: alert, well appearing, well nourished, no distress, non-toxic EYE EXAM: normal conjunctiva, PERRL and EOM's grossly intact OROPHARYNX: no exudate, no erythema, lips, buccal mucosa, and tongue normal and mucous membranes are dry NECK: supple, no nuchal rigidity, no adenopathy, non-tender LUNGS: Clear to auscultation. Normal chest wall mechanics, no w/r/r HEART: no murmurs, S1 normal and S2 normal ABDOMEN: abdomen soft, non-tender, normo-active bowel sounds, no masses, no rebound or guarding. BACK: Back is symmetrical on inspection and there is no deformity, no midline tenderness, no CVA tenderness. SKIN: no rashes, petechiae, orbruising UPPER EXTREMITIES: upper extremities are grossly normal. FROM, nml pulses b/l. LOWER EXTREMITIES: No pitting edema. FROM, nml pulses b/l. NEURO EXAM: Normal sensorium, cranial nerves II-XII grossly intact, normal speech, no facial droop,nogross weakness of arms, no gross weakness of legs. Gross sensation intact. No ataxia. Vital Signs: reviewed and remarkable Differential Diagnosis: viral syndrome, dehydration, DKA, electrolyte abnormality, UTI, noncompliance, medication adr, sbo, perf, GI bleed, pna, acs, dissection, as well as others were considered MEDICAL DECISION MAKING: This is a 63-year-old male presents emergency department due to concern for weakness after being referred by his PCP. He was afebrile and vital signs stable. Labs drawn and sent, IV established, EKG and checks were performed bedside interpreted by me and patient monitored in telemetry. Patient had no chest pain or abdominal pain during my exam despite recent report of this. Labs revealed mild DKA with significant hyperglycemia. Unfortunately patient was initially seen in a waiting room area and so IVF was started and patient given subcu insulin. Once patient was able to be placed in a regular room IV fluids were continued, a recheck of his glucose was still elevated and he was given additional subcu insulin. Patient's glucose was improving, a repeat BMP sent and revealed that the anion gap had closed. Patient continued to complain of overall feelings of weakness and lightheadedness, and due to age and comorbidities, I discussed the case with the [facility] for additional evaluation and management. Patient had a nonfocal neuro exam, had no further chest pain or abdominal pain during my initial as well as repeat exams. I do not suspect occult ACS, perforation, GI bleed, bowel obstruction, mesenteric ischemia, or AAA. No evidence of pneumonia on chest x-ray and patient denied increased work of breathing or other evolving URI symptoms. No hypoxia noted. Patient would likely benefit from additional cardiology evaluation due to history of aortic stenosis in light of complaints of intermittent chest pain. Consultation(s): 0132: Discussed with Dr. Masters, [facility] team, for additional evaluation and mgmt. ER Treatment Provided: See below Diagnostics Interpreted By Me: -ECG: Sinus tachycardia at 102, normal axis, normal intervals, acute T waves noted -Cardiac Monitoring: An order was placed for continuous cardiac monitoring. The monitor shows a rate of 96 with normal sinus rhythm. -Laboratory studies: As stated above and show below. -Imaging studies: X-ray Chest: A single view study of the chest was reviewed and was negative for cardiomegaly, focal infiltrate, effusion, pulmonary edema, or wide mediastinum. Triage Nursing Note Reviewed Prior/Outside Records Reviewed - outpatient PCP visit reviewed Past Med/Surg History Medical History Aortic valve stenosis Severe per 05/2022 ECHO (PK 0.78-1.0cm2; AV mean PG 23.2mmHg; AV max velocity 3.684m/s) Arthritis, gouty Barretts esophagus Per records Chronic obstructive pulmonary disease MILD>NO INHALERS PER PATIENT Diabetes mellitus, type 2 Gallbladder sludge reason for upcoming procedure GERD (gastroesophageal reflux disease) "silent/mild" Hx of kidney disease PER PATIENT, ACUTE KIDNEY DISEASE 05/2022>WNL CURRENTLY Hx of pancreatitis HOSPITALIZED 05/2022>DKA and acute pancreatitis Hyperlipidemia Hypertension PFO (patent foramen ovale) Small per 11/2021 [facility] imaging per cardio records Stroke-like episode - History of TIA vs vertigo per cardio records 11/2021 (on Plavix) - 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 Repeat head CTA 08/2022 was unremarkable and no left ICA aneurysm identified Surgical History H/O arthroscopic knee surgery + GANGLION CYST REMOVED>RT History of carpal tunnel surgery LEFT History of cataract surgery RT/LEFT History of colonoscopy History of esophagogastroduodenoscopy (EGD) History of foot surgery RT History of tonsillectomy and adenoidectomy History of tooth extraction Nausea and vomiting after administration of anesthetic agent Family History Other Diabetes Heart disease No family history of adverse response to anesthesia Social History Smoking Status: Never smoker Tobacco Type: Cigarettes Cigarettes Per Day: 4 CIG DAILY>ADVISED; Second Hand Exposure: No; Do You Dip or Chew Tobacco: No; Hx Alcohol Use: No Hx Substance Use: No Preferred Language: Divehi Communication Ability: Effective Capacitor Tester Required: No Beliefs That Will Affect Care: None marital status: Unknown Current Living Situation: Alone Current Living Situation Comment: WITH SON Feels Safe at Home: Yes Safety Concerns: Feels Safe At This Time Assistive Devices: None Allergies Allergies Allergy/AdvReac Type Severity Reaction Status Date / Time erythromycin base Allergy Intermediate Abdominal Verified 01/05/23 09:13 Pain Home Meds Home Medications Medication Instructions Recorded Confirmed omeprazole 20 mg capsule,delayed 20 mg PO DAILYBB 03/11/19 04/17/23 release acetaminophen 500 mg tablet 500 mg PO Q6H PRN Pain 08/01/21 04/18/23 (Acetaminophen Extra Strength) calcium carbonate 200 mg calcium 200 mg PO DAILY PRN Gi Upset 12/01/21 04/18/23 (500 mg) chewable tablet (Calcium Antacid) atorvastatin 80 mg tablet 80 mg PO QAM 05/09/22 04/18/23 cyclobenzaprine 5 mg tablet 5 mg PO BID PRN Muscle Spasm 05/09/22 04/18/23 insulin NPH-regular 70-30 U-100 33 unit subcut BID 01/02/23 04/18/23 insulin 100 unit/mL subcutaneous pen (Novolin 70-30 FlexPen U-100 Insulin) metformin 500 mg tablet,extended 1,000 mg PO QDB 01/02/23 04/17/23 release 24 hr dicyclomine 10 mg capsule 10 mg PO TID PRN Pain 01/05/23 04/18/23 metoprolol succinate 25 mg 25 mg PO DAILY 01/05/23 04/18/23 tablet,extended release 24 hr multivitamin 1 tab PO DAILY 01/05/23 04/17/23 losartan 25 mg tablet 25 mg PO QAM 04/17/23 04/17/23 rosuvastatin 40 mg tablet 40 mg PO QAM 04/17/23 04/17/23 Previous Rx's Medication Instructions Recorded clopidogrel 75 mg tablet 75 mg PO QAM #30 tabs 12/05/21 Results & Data (ED) Vital Signs Vital Signs - 24 hr 04/18/23 02:30 04/18/23 03:00 Pulse Rate 82 79 Respiratory Rate 20 14 Blood Pressure 127/92 144/85 H Blood Pressure Mean 103 104 Pulse Oximetry 98 96 Oxygen Delivery Method Room Air Room Air Laboratory Data 04/17/23 18:23 04/17/23 18:23 Lab Results 04/17/23 04/17/23 04/17/23 Range/Units 18:22 18:23 18:23 WBC 11.52 H (4.8-10.8) K/ul RBC 5.88 (4.70-6.10) M/uL Hgb 18.0 (14.0-18.0) g/dl Hct 51.2 (42.0-52.0) % MCV 87.1 (80.0-100.0) fL MCH 30.6 (25.0-34.0) pg MCHC 35.2 (32.0-36.0) g/dL RDW Std Deviation 47.5 H (36.4-46.3) fL RDW Coeff of Mariah 14.9 H (11.5-14.5) % Plt Count 228 (130-400) K/uL MPV 11.9 (9.4-12.4) fL Immature Gran % (Auto) 0.3 % Neut % (Auto) 74.7 % Lymph % (Auto) 17.7 % [place] % (Auto) 6.6 % Eos % (Auto) 0.4 % Baso % (Auto) 0.3 % Neut # (Auto) 8.60 H (1.40-6.50) K/uL Lymph # (Auto) 2.04 (1.20-3.40) K/uL [place] # (Auto) 0.76 H (0.11-0.59) K/uL Eos # (Auto) 0.05 (0.00-0.50) K/uL Baso # (Auto) 0.03 (0.00-0.20) K/uL Immature Gran # (Auto) 0.04 (0.01-0.20) K/uL PT 10.7 (9.0-12.0) Seconds INR 1.0 (0.9-1.1) APTT 27.3 (21.0-31.0) Seconds PTT Ratio 1.0 Sodium (136-145) mmol/L Potassium (3.5-5.1) mmol/L Chloride (98-107) mmol/L Carbon Dioxide (21-32) mmol/L Anion Gap (3-11) BUN (6-23) mg/dl Creatinine (0.6-1.4) mg/dl Est Cr Clr Drug Dosing ml/min Est GFR ( Amer) ml/min Est GFR (Non-Af Amer) ml/min BUN/Creatinine Ratio (10-20) Glucose (70-99(Fasting)) mg/dl POC Glucose (70-99) mg/dl Estimat Average Glucose mg/dl Hemoglobin A1c (4.5-5.6) % Calcium (8.6-10.3) mg/dl Magnesium (1.7-2.4) mg/dl Total Bilirubin (0.2-1.0) mg/dl AST (13-39) U/L ALT (7-52) U/L Alkaline Phosphatase (34-104) U/L Troponin I High Sens (0-20) pg/ml Total Protein (6.0-8.3) gm/dl Albumin (3.4-5.0) gm/dl Globulin (2.5-4.0) gm/dl Albumin/Globulin Ratio (0.9-2) Lipase (11-82) U/L Procalcitonin (0-0.5) ng/ml TSH (0.300-4.500) uIu/ml Urine Color Urine Appearance (Clear) Urine pH (4.5-7.5) Ur Specific Shelly (1.000-1.030) Urine Protein (Negative) Urine Glucose (UA) (Negative) Urine Ketones (Negative) Urine Blood (Negative) Urine Nitrite (Negative) Urine Bilirubin (Negative) Urine Urobilinogen (Negative) Ur Leukocyte Esterase (Negative) Urine WBC (Auto) (0-5) /hpf Urine RBC (Auto) (0-4) /hpf U Hyaline Cast (Auto) (0-5) /lpf U Epithel Cells (Auto) (0-5) /lpf Urine Bacteria (Auto) (Negative) SARS-CoV-2 (PCR) NEGATIVE (Negative) Influenza Type A (PCR) Negative (Neg) Influenza Type B (PCR) Negative (Neg) RSV (RT-PCR) Negative (Neg) 04/17/23 04/17/23 04/17/23 Range/Units 18:23 18:23 18:23 WBC (4.8-10.8) K/ul RBC (4.70-6.10) M/uL Hgb (14.0-18.0) g/dl Hct (42.0-52.0) % MCV (80.0-100.0) fL MCH (25.0-34.0) pg MCHC (32.0-36.0) g/dL RDW Std Deviation (36.4-46.3) fL RDW Coeff of Mariah (11.5-14.5) % Plt Count (130-400) K/uL MPV (9.4-12.4) fL Immature Gran % (Auto) % Neut % (Auto) % Lymph % (Auto) % [place] % (Auto) % Eos % (Auto) % Baso % (Auto) % Neut # (Auto) (1.40-6.50) K/uL Lymph # (Auto) (1.20-3.40) K/uL [place] # (Auto) (0.11-0.59) K/uL Eos # (Auto) (0.00-0.50) K/uL Baso # (Auto) (0.00-0.20) K/uL Immature Gran # (Auto) (0.01-0.20) K/uL PT (9.0-12.0) Seconds INR (0.9-1.1) APTT (21.0-31.0) Seconds PTT Ratio Sodium 133 L (136-145) mmol/L Potassium 5.3 H (3.5-5.1) mmol/L Chloride 96 L (98-107) mmol/L Carbon Dioxide 24 (21-32) mmol/L Anion Gap 13 H (3-11) BUN 30 H (6-23) mg/dl Creatinine 1.30 (0.6-1.4) mg/dl Est Cr Clr Drug Dosing 53.3 ml/min Est GFR ( Amer) 68.3 ml/min Est GFR (Non-Af Amer) 58.9 ml/min BUN/Creatinine Ratio 23.1 H (10-20) Glucose 569 H* (70-99(Fasting)) mg/dl POC Glucose (70-99) mg/dl Estimat Average Glucose 301 mg/dl Hemoglobin A1c 12.1 H (4.5-5.6) % Calcium 10.2 (8.6-10.3) mg/dl Magnesium (1.7-2.4) mg/dl Total Bilirubin 0.6 (0.2-1.0) mg/dl AST 12 L (13-39) U/L ALT 18 (7-52) U/L Alkaline Phosphatase 144 H (34-104) U/L Troponin I High Sens 18.0 (0-20) pg/ml Total Protein 8.7 H (6.0-8.3) gm/dl Albumin 4.8 (3.4-5.0) gm/dl Globulin 3.9 (2.5-4.0) gm/dl Albumin/Globulin Ratio 1.2 (0.9-2) Lipase 19 (11-82) U/L Procalcitonin < 0.05 (0-0.5) ng/ml TSH (0.300-4.500) uIu/ml Urine Color Urine Appearance (Clear) Urine pH (4.5-7.5) Ur Specific Shelly (1.000-1.030) Urine Protein (Negative) Urine Glucose (UA) (Negative) Urine Ketones (Negative) Urine Blood (Negative) Urine Nitrite (Negative) Urine Bilirubin (Negative) Urine Urobilinogen (Negative) Ur Leukocyte Esterase (Negative) Urine WBC (Auto) (0-5) /hpf Urine RBC (Auto) (0-4) /hpf U Hyaline Cast (Auto) (0-5) /lpf U Epithel Cells (Auto) (0-5) /lpf Urine Bacteria (Auto) (Negative) SARS-CoV-2 (PCR) (Negative) Influenza Type A (PCR) (Neg) Influenza Type B (PCR) (Neg) RSV (RT-PCR) (Neg) 04/17/23 04/17/23 04/17/23 Range/Units 21:35 22:46 22:55 WBC (4.8-10.8) K/ul RBC (4.70-6.10) M/uL Hgb (14.0-18.0) g/dl Hct (42.0-52.0) % MCV (80.0-100.0) fL MCH (25.0-34.0) pg MCHC (32.0-36.0) g/dL RDW Std Deviation (36.4-46.3) fL RDW Coeff of Mariah (11.5-14.5) % Plt Count (130-400) K/uL MPV (9.4-12.4) fL Immature Gran % (Auto) % Neut % (Auto) % Lymph % (Auto) % [place] % (Auto) % Eos % (Auto) % Baso % (Auto) % Neut # (Auto) (1.40-6.50) K/uL Lymph # (Auto) (1.20-3.40) K/uL [place] # (Auto) (0.11-0.59) K/uL Eos # (Auto) (0.00-0.50) K/uL Baso # (Auto) (0.00-0.20) K/uL Immature Gran # (Auto) (0.01-0.20) K/uL PT (9.0-12.0) Seconds INR (0.9-1.1) APTT (21.0-31.0) Seconds PTT Ratio Sodium (136-145) mmol/L Potassium (3.5-5.1) mmol/L Chloride (98-107) mmol/L Carbon Dioxide (21-32) mmol/L Anion Gap (3-11) BUN (6-23) mg/dl Creatinine (0.6-1.4) mg/dl Est Cr Clr Drug Dosing ml/min Est GFR ( Amer) ml/min Est GFR (Non-Af Amer) ml/min BUN/Creatinine Ratio (10-20) Glucose (70-99(Fasting)) mg/dl POC Glucose 426 H* 387 H* (70-99) mg/dl Estimat Average Glucose mg/dl Hemoglobin A1c (4.5-5.6) % Calcium (8.6-10.3) mg/dl Magnesium (1.7-2.4) mg/dl Total Bilirubin (0.2-1.0) mg/dl AST (13-39) U/L ALT (7-52) U/L Alkaline Phosphatase (34-104) U/L Troponin I High Sens (0-20) pg/ml Total Protein (6.0-8.3) gm/dl Albumin (3.4-5.0) gm/dl Globulin (2.5-4.0) gm/dl Albumin/Globulin Ratio (0.9-2) Lipase (11-82) U/L Procalcitonin (0-0.5) ng/ml TSH (0.300-4.500) uIu/ml Urine Color Yellow Urine Appearance Clear (Clear) Urine pH 5.5 (4.5-7.5) Ur Specific Shelly 1.025 (1.000-1.030) Urine Protein 1+ H (Negative) Urine Glucose (UA) 3+ H (Negative) Urine Ketones 1+ H (Negative) Urine Blood Negative (Negative) Urine Nitrite Negative (Negative) Urine Bilirubin Negative (Negative) Urine Urobilinogen Negative (Negative) Ur Leukocyte Esterase Negative (Negative) Urine WBC (Auto) 0 (0-5) /hpf Urine RBC (Auto) 0-4 (0-4) /hpf U Hyaline Cast (Auto) 0 (0-5) /lpf U Epithel Cells (Auto) 0-5 (0-5) /lpf Urine Bacteria (Auto) Negative (Negative) SARS-CoV-2 (PCR) (Negative) Influenza Type A (PCR) (Neg) Influenza Type B (PCR) (Neg) RSV (RT-PCR) (Neg) 04/17/23 04/18/23 Range/Units 23:34 03:09 WBC (4.8-10.8) K/ul RBC (4.70-6.10) M/uL Hgb (14.0-18.0) g/dl Hct (42.0-52.0) % MCV (80.0-100.0) fL MCH (25.0-34.0) pg MCHC (32.0-36.0) g/dL RDW Std Deviation (36.4-46.3) fL RDW Coeff of Mariah (11.5-14.5) % Plt Count (130-400) K/uL MPV (9.4-12.4) fL Immature Gran % (Auto) % Neut % (Auto) % Lymph % (Auto) % [place] % (Auto) % Eos % (Auto) % Baso % (Auto) % Neut # (Auto) (1.40-6.50) K/uL Lymph # (Auto) (1.20-3.40) K/uL [place] # (Auto) (0.11-0.59) K/uL Eos # (Auto) (0.00-0.50) K/uL Baso # (Auto) (0.00-0.20) K/uL Immature Gran # (Auto) (0.01-0.20) K/uL PT (9.0-12.0) Seconds INR (0.9-1.1) APTT (21.0-31.0) Seconds PTT Ratio Sodium 135 L (136-145) mmol/L Potassium 4.1 D (3.5-5.1) mmol/L Chloride 104 (98-107) mmol/L Carbon Dioxide 26 (21-32) mmol/L Anion Gap 5 (3-11) BUN 27 H (6-23) mg/dl Creatinine 1.09 (0.6-1.4) mg/dl Est Cr Clr Drug Dosing 63.6 ml/min Est GFR ( Amer) 84.5 ml/min Est GFR (Non-Af Amer) 72.9 ml/min BUN/Creatinine Ratio 24.8 H (10-20) Glucose 360 H* (70-99(Fasting)) mg/dl POC Glucose 177 H (70-99) mg/dl Estimat Average Glucose mg/dl Hemoglobin A1c (4.5-5.6) % Calcium 9.3 (8.6-10.3) mg/dl Magnesium 2.1 (1.7-2.4) mg/dl Total Bilirubin (0.2-1.0) mg/dl AST (13-39) U/L ALT (7-52) U/L Alkaline Phosphatase (34-104) U/L Troponin I High Sens 16.7 (0-20) pg/ml Total Protein (6.0-8.3) gm/dl Albumin (3.4-5.0) gm/dl Globulin (2.5-4.0) gm/dl Albumin/Globulin Ratio (0.9-2) Lipase (11-82) U/L Procalcitonin (0-0.5) ng/ml TSH 3.052 (0.300-4.500) uIu/ml Urine Color Urine Appearance (Clear) Urine pH (4.5-7.5) Ur Specific Shelly (1.000-1.030) Urine Protein (Negative) Urine Glucose (UA) (Negative) Urine Ketones (Negative) Urine Blood (Negative) Urine Nitrite (Negative) Urine Bilirubin (Negative) Urine Urobilinogen (Negative) Ur Leukocyte Esterase (Negative) Urine WBC (Auto) (0-5) /hpf Urine RBC (Auto) (0-4) /hpf U Hyaline Cast (Auto) (0-5) /lpf U Epithel Cells (Auto) (0-5) /lpf Urine Bacteria (Auto) (Negative) SARS-CoV-2 (PCR) (Negative) Influenza Type A (PCR) (Neg) Influenza Type B (PCR) (Neg) RSV (RT-PCR) (Neg) Administered Medications Aspirin (Aspirin 81 Mg Ectab) 81 mg PO DAILY [facility] Stop: 05/18/23 07:29 Last Admin: 04/18/23 09:13 Dose: 81 mg Documented By: PONCHO Clopidogrel Bisulfate (Clopidogrel Bisulfate 75 Mg Tab) [facility]: 05/18/23 08:59 Last Admin: 04/18/23 09:12 Dose: 75 mg Documented By: PONCHO Doxycycline Hyclate (Doxycycline Hyclate 100 Mg Cap) 100 mg PO BID [facility] Stop: 04/25/23 20:59 Last Admin: 04/18/23 20:52 Dose: 100 mg Documented By: DAVIAN Enoxaparin Sodium (Enoxaparin Inj 30 Mg/0.3 Ml Syr) 30 [facility] SQ [facility] Stop: 05/18/23 08:59 Last Admin: 04/18/23 09:13 Dose: Not Given Documented By: PONCHO Insulin Aspart (Insulin Aspart Per Unit Charge) 0 units SC ACHS [facility]; Protocol Stop: 05/18/23 02:34 Last Admin: 04/18/23 20:54 Dose: 6 units Documented By: DAVIAN Co-signed By: JAVI Admin: 04/18/23 19:08 Dose: 12 units Documented By: JAMIE Co-signed By: DAVIAN Admin: 04/18/23 13:17 Dose: 6 units Documented By: GRACE Co-signed By: ABIMAEL Admin: 04/18/23 03:21 Dose: 3 units Documented By: HARSHAL Co-signed By: NIECY Losartan Potassium (Losartan Potassium 25 Mg Tab) 25 mg PO QAM [facility] Stop: 05/18/23 08:59 Last Admin: 04/18/23 09:13 Dose: 25 mg Documented By: PONCHO Multivitamins (Multivitamin Tab) 1 tab PO DAILY [facility] Stop: 05/18/23 08:59 Last Admin: 04/18/23 09:13 Dose: 1 tab Documented By: PONCHO Pantoprazole Sodium (Pantoprazole 40 Mg Tab) 40 mg PO DAILYBB [facility] Stop: 05/18/23 06:29 Last Admin: 04/18/23 06:37 Dose: 40 mg Documented By: SONIA Rosuvastatin Calcium (Rosuvastatin Calcium 20 Mg Tab) 40 mg PO QAM [facility] Stop: 05/18/23 08:59 Last Admin: 04/18/23 09:13 Dose: 40 mg Documented By: PONCHO Discontinued Medications Sodium Chloride (Nss) 1,000 mls @ 125 mls/hr IV .Q8H NELI Stop: 05/17/23 18:59 Last Infusion: 04/17/23 21:21 Dose: 0 mls/hr Documented By: Admin: 04/17/23 19:54 Dose: 125 mls/hr Documented By: LAYLA Sodium Chloride (Nss) 1,000 mls @ 60 mls/hr IV .[id number] ONE Stop: 04/18/23 18:23 Last Infusion: 04/18/23 17:44 Dose: 0 mls/hr Documented By: Admin: 04/18/23 03:22 Dose: 60 mls/hr Documented By: HARSHAL Doxycycline Hyclate 100 mg/ (Dextrose) 100 mls @ 50 mls/hr IV NOW STA Stop: 04/18/23 04:29 Last Infusion: 04/18/23 11:23 Dose: 0 mls/hr Documented By: Admin: 04/18/23 05:58 Dose: 50 mls/hr Documented By: HARSHAL Insulin Glargine (Lantus Per Unit Charge) 40 units SQ NOW STA Stop: 04/18/23 02:33 Last Admin: 04/18/23 03:16 Dose: Not Given Documented By: HARSHAL Insulin Glargine (Lantus Per Unit Charge) 10 units SQ DAILY [facility] Stop: 05/18/23 08:59 Last Admin: 04/18/23 09:12 Dose: 10 units Documented By: PONCHO Co-signed By: LINA Insulin Glargine (Lantus Per Unit Charge) 10 units SQ TODAY@0931 [facility] Stop: 04/18/23 13:00 Last Admin: 04/18/23 12:24 Dose: 10 units Documented By: GRACE Co-signed By: MARCO Insulin Glargine (Lantus Per Unit Charge) 0 units SQ ONE ONE; Protocol Stop: 04/18/23 21:01 Last Admin: 04/18/23 20:53 Dose: 10 units Documented By: DAVIAN Co-signed By: JAVI Insulin Human Regular (Novolin-R Insulin Per Unit Charge) 8 units SC NOW STA Stop: 04/17/23 19:34 Last Admin: 04/17/23 19:54 Dose: 8 units Documented By: LAYLA Co-signed By: JEANNINE Insulin Human Regular (Novolin-R Insulin Per Unit Charge) 8 units SC NOW STA Stop: 04/17/23 21:50 Last Admin: 04/17/23 22:08 Dose: 8 units Documented By: HARSHAL Co-signed By: AINSLEY Metoprolol Succinate (Metoprolol Succ 25mg Ext Rel Tab) 25 mg PO NOW STA Stop: 04/18/23 01:39 Last Admin: 04/18/23 03:21 Dose: 25 mg Documented By: HARSHAL Nitroglycerin (Nitroglycerin Sl 0.4 Mg/Tab Tab) 0.4 mg SL NOW STA Stop: 04/18/23 02:30 Last Admin: 04/18/23 02:39 Dose: 0.4 mg Documented By: HARSHAL Imaging Data Radiologist's Impression: Chest X-Ray 04/17/23 17:18 XR chest 2V PA/lateral CLINICAL HISTORY: Chest pain, nonspecific COMPARISON STUDY: Chest radiograph May 08, 2022. FINDINGS: No pneumothorax or pleural effusion is present. No definite consolidation is identified. Lower lung predominant interstitial thickening has progressed since prior exam. Cardiac size is normal. Mediastinal contours are normal. No evidence for pulmonary edema. IMPRESSION: Progressive lower lung interstitial thickening. This favors interstitial lung disease. However, a superimposed infectious process cannot be excluded. ACT 112: Negative or not required by law. Electronically signed by: Cassius Perez M.D. 04/17/2023 5:39 PM Discharge Plan Visit Data Chief Complaint: Referred by Doctor Stated Complaint: REF BY FOR ABD PAIN AND ANKLE PAIN ED Provider: Malia Grigsby Discharge Problem: Chest pain, Weakness, DKA (diabetic ketoacidosis), Hyperglycemia Patient Disposition: Admitted As Inpatient Discharge Instructions Interventions: ED Discharge Assessment Last Done: 04/18/23 04:09
[2023-04-17] MEDS ORDERED: SODIUM CHLORIDE 0.9% 1,000 ML IV SCH (19:00)
[2023-04-17 19:18] LABS: Influenza A virus by PCR Negative (Neg); Influenza B virus by PCR Negative (Neg); RSV by PCR Negative (Neg); SARS CoV2 RNA(COVID-19) Ceph NEGATIVE (Negative)
[2023-04-17 19:21] LABS: Partial Thromboplastin Time 27.3 Seconds (21.0-31.0); Prothrombin Time 10.7 Seconds (9.0-12.0)
[2023-04-17 19:22] LABS: Albumin Globulin Ratio 1.2 (0.9-2); Albumin Level 4.8 gm/dl (3.4-5.0); BUN Creatinine Ratio 23.1 (10-20); Bilirubin,Total 0.6 mg/dl (0.2-1.0); Calcium 10.2 mg/dl (8.6-10.3); Creatinine Clr Calc Pharmacy 53.3 ml/min; Est GFR (African American) 68.3 ml/min; Est GFR (Non-African American) 58.9 ml/min; Globulin 3.9 gm/dl (2.5-4.0); Potassium 5.3 mmol/L (3.5-5.1); Total Protein 8.7 gm/dl (6.0-8.3)
[2023-04-17] MEDS ORDERED: NovoLIN-R INSULIN PER UNIT CHARGE SC STA ×2 (19:33→21:49)
[2023-04-17 23:31] LABS: Appearance Urine Clear (Clear); Bacteria Urine Automated Negative (Negative); Bilirubin Urine Negative (Negative); Blood Urine Negative (Negative); Cast Urine Automated 0 /lpf (0-5); Color Urine Yellow; Epithelial Cell Urine Auto 0-5 /lpf (0-5); Glucose Urine UA 3+ (Negative); Ketones Urine 1+ (Negative); Leukocyte Esterase Urine Negative (Negative); Nitrite Urine Negative (Negative); Protein Urine 1+ (Negative); RBC Urine Automated 0-4 /hpf (0-4); Specific Gravity Urine 1.025 (1.000-1.030); Urobilinogen Urine Negative (Negative); WBC Urine Automated 0 /hpf (0-5); pH Urine 5.5 (4.5-7.5)
[2023-04-18 00:18] LABS: BUN Creatinine Ratio 24.8 (10-20); Calcium 9.3 mg/dl (8.6-10.3); Creatinine Clr Calc Pharmacy 63.6 ml/min; Est GFR (African American) 84.5 ml/min; Est GFR (Non-African American) 72.9 ml/min; Potassium 4.1 mmol/L (3.5-5.1)
[2023-04-18] MEDS ORDERED: METOPROLOL SUCC 25MG EXT REL TAB PO STA (01:38)
[2023-04-18] MEDS ORDERED: SODIUM CHLORIDE 0.9% 1,000 ML IV ONE (01:44)
[2023-04-18 02:06] LABS: Magnesium 2.1 mg/dl (1.7-2.4)
[2023-04-18 02:07] LABS: Troponin I High Sensitivity 16.7 pg/ml (0-20)
[2023-04-18] MEDS ORDERED: NITROGLYCERIN SL 0.4 MG/TAB TAB SL STA (02:29)
[2023-04-18] MEDS ORDERED: DOXYCYCLINE HYCLATE 100 MG in DEXTROSE 5% MINI-B 100 ML IV STA (02:30)
--- NOTE | 2023-04-18 02:30 | History & Physical Report ---
Date of Service April 18, 2023 Assessment & Plan (1) Sepsis: Plan: Secondary to complicated bronchitis hx COPD/ILD, patient without respiratory distress or overt wheezing symptoms chest pain possibly from uncontrolled blood pressure Rule out ACS given nitroglycerin response valvular heart disease (moderate to severe aortic stenosis/mild AR) hyperlipidemia, on statin Rx hx TIA, cerebral aneurysm as per records DM2 insulin requiring, mild DKA upon arrival at the ER, resolved after initial intervention, suboptimal control as of recent hemoglobin A1c of 9.08 September 2022 past alcohol abuse ongoing tobacco abuse PCU CS, Doxycycline Nebs as needed Hold off on steroids for now given absence of wheezing/hypoxemia in light of patient's poorly controlled DM Titrate home BP meds Add aspirin to patient's Plavix for CAD prevention Follow troponin NPO until patient seen by Cardiology in anticipation of ischemic work-up Basal bolus insulin adjusted for n.p.o. status, ISS BG goal 1 10-1 40, update hemoglobin A1c nicotine replacement therapy as needed DVT prophylaxis. Lovenox subcu Full code Text document was generated using [employer] voice recognition software. It may contain grammatical or spelling errors. Kindly contact undersigned for clarification of any documentation item in question. History of Present Illness Chief Complaint: Chest pain, cough, weakness Primary Care Provider: Anabel Ortiz MD History obtained from patient and records. Medical history significant for COPD/ILD, valvular heart disease (moderate to severe aortic stenosis/mild AR), hypertension, hyperlipidemia, TIA, cerebral aneurysm as per records, DM2 insulin requiring, gout, past alcohol abuse, ongoing tobacco abuse. Last confinement May 2022 for DKA, pancreatitis. Patient discharged to SNF rehab before eventually going home. 1 week history of junky cough symptoms. 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 Some shortness of breath, no weight gain. Denies aspiration. Substernal pain without radiation not related to coughing as per patient. Patient seen at PCPs office yesterday. Achy headache symptoms. Subsequently directed to ER. Highest SBP of 180s documented at the ER. IVF and IV insulin administered for BSG 500s at the ER. Chest pain improved with nitroglycerin administration. 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 Allergies Allergy/AdvReac Type Severity Reaction Status Date / Time erythromycin base Allergy Intermediate Abdominal Verified 01/05/23 09:13 Pain Home Medications Medication Instructions Recorded Confirmed Type omeprazole 20 mg capsule,delayed 20 mg PO DAILYBB 03/11/19 04/17/23 History release acetaminophen 500 mg tablet 500 mg PO Q6H PRN Pain 08/01/21 04/18/23 History (Acetaminophen Extra Strength) calcium carbonate 200 mg calcium 200 mg PO DAILY PRN Gi Upset 12/01/21 04/18/23 History (500 mg) chewable tablet (Calcium Antacid) clopidogrel 75 mg tablet 75 mg PO QAM #30 tabs 12/05/21 04/18/23 Rx atorvastatin 80 mg tablet 80 mg PO QAM 05/09/22 04/18/23 History cyclobenzaprine 5 mg tablet 5 mg PO BID PRN Muscle Spasm 05/09/22 04/18/23 History insulin NPH-regular 70-30 U-100 33 unit subcut BID 01/02/23 04/18/23 History insulin 100 unit/mL subcutaneous pen (Novolin 70-30 FlexPen U-100 Insulin) metformin 500 mg tablet,extended 1,000 mg PO QDB 01/02/23 04/17/23 History release 24 hr dicyclomine 10 mg capsule 10 mg PO TID PRN Pain 01/05/23 04/18/23 History metoprolol succinate 25 mg 25 mg PO DAILY 01/05/23 04/18/23 History tablet,extended release 24 hr multivitamin 1 tab PO DAILY 01/05/23 04/17/23 History losartan 25 mg tablet 25 mg PO QAM 04/17/23 04/17/23 History rosuvastatin 40 mg tablet 40 mg PO QAM 04/17/23 04/17/23 History Past Med/Surg History Medical History Aortic valve stenosis Severe per 05/2022 ECHO (PK 0.78-1.0cm2; AV mean PG 23.2mmHg; AV max velocity 3.684m/s) Arthritis, gouty Barretts esophagus Per records Chronic obstructive pulmonary disease MILD>NO INHALERS PER PATIENT Diabetes mellitus, type 2 Gallbladder sludge reason for upcoming procedure GERD (gastroesophageal reflux disease) "silent/mild" Hx of kidney disease PER PATIENT, ACUTE KIDNEY DISEASE 05/2022>WNL CURRENTLY Hx of pancreatitis HOSPITALIZED 05/2022>DKA and acute pancreatitis Hyperlipidemia Hypertension PFO (patent foramen ovale) Small per 11/2021 [facility] imaging per cardio records Stroke-like episode - History of TIA vs vertigo per cardio records 11/2021 (on Plavix) - 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 Repeat head CTA 08/2022 was unremarkable and no left ICA aneurysm identified Surgical History H/O arthroscopic knee surgery + GANGLION CYST REMOVED>RT History of carpal tunnel surgery LEFT History of cataract surgery RT/LEFT History of colonoscopy History of esophagogastroduodenoscopy (EGD) History of foot surgery RT History of tonsillectomy and adenoidectomy History of tooth extraction Nausea and vomiting after administration of anesthetic agent Family History Other Diabetes Heart disease No family history of adverse response to anesthesia Social History Smoking Status: Never smoker Tobacco Type: Cigarettes Cigarettes Per Day: 4 CIG DAILY>ADVISED; Second Hand Exposure: No; Do You Dip or Chew Tobacco: No; Hx Alcohol Use: No Hx Substance Use: No Preferred Language: Icelandic Communication Ability: Effective Prepress Operator Required: No Beliefs That Will Affect Care: None marital status: Unknown Current Living Situation: Alone Current Living Situation Comment: WITH SON Feels Safe at Home: Yes Safety Concerns: Feels Safe At This Time Assistive Devices: None Review of Systems Review of Systems: As per HPI, all other systems reviewed and negative Physical Exam Physical Exam: GENERAL: comfortable, no respiratory distress SKIN: Normal color, warm HEENT: [place] palpebral conjunctivae, no ptosis, dry buccal mucosa NECK : Supple, no tenderness CHEST : Decreased breath sounds, no tenderness HEART : RRR, no obvious murmurs ABDOMEN: Some distention, no tenderness EXTREMITIES : No LE swelling/tenderness, no other conspicuous deformities noted NEUROLOGIC : Coherent, no facial asymmetry, slightly hard of hearing, no other gross focality Results & Data Results & Data Vital Signs (Past 12 Hours) Vital Signs Temp Pulse Resp BP Pulse Ox O2 Del Method 04/18/23 02:00 68 13 160/89 H 96 Room Air 04/18/23 01:30 73 13 167/84 H 95 Room Air 04/18/23 01:30 73 04/18/23 01:02 91 H 12 174/85 H 95 Room Air 04/18/23 00:30 76 13 175/92 H 96 Room Air 04/18/23 00:00 81 12 165/93 H 96 Room Air 04/17/23 23:30 77 15 172/89 H 96 Room Air 04/17/23 23:00 74 14 184/89 H 96 Room Air 04/17/23 22:30 79 15 171/88 H 95 Room Air 04/17/23 22:00 77 22 178/89 H 94 Room Air 04/17/23 21:39 78 04/17/23 21:41 79 14 175/104 H 96 Room Air 04/17/23 21:41 97 Room Air 04/17/23 17:15 36.1 C L 115 H 20 130/66 97 Room Air Laboratory Results Laboratory Results WBC 11.52 K/ul (4.8-10.8) H 04/17/23 18: RBC 5.88 M/uL (4.70-6.10) 04/17/23 18: Hgb 18.0 g/dl (14.0-18.0) 04/17/23 18: Hct 51.2 % (42.0-52.0) 04/17/23 18: MCV 87.1 fL (80.0-100.0) 04/17/23 18: MCH 30.6 pg (25.0-34.0) 04/17/23 18: MCHC 35.2 g/dL (32.0-36.0) 04/17/23 18: RDW Std Deviation 47.5 fL (36.4-46.3) H 04/17/23 18: RDW Coeff of Mariah 14.9 % (11.5-14.5) H 04/17/23 18: Plt Count 228 K/uL (130-400) 04/17/23 18: MPV 11.9 fL (9.4-12.4) 04/17/23 18: Immature Gran % (Auto) 0.3 % 04/17/23 18:23 Neut % (Auto) 74.7 % 04/17/23 18:23 Lymph % (Auto) 17.7 % 04/17/23 18:23 [place] % (Auto) 6.6 % 04/17/23 18:23 Eos % (Auto) 0.4 % 04/17/23 18:23 Baso % (Auto) 0.3 % 04/17/23 18:23 Neut # (Auto) 8.60 K/uL (1.40-6.50) H 04/17/23 18:23 Lymph # (Auto) 2.04 K/uL (1.20-3.40) 04/17/23 18:23 [place] # (Auto) 0.76 K/uL (0.11-0.59) H 04/17/23 18:23 Eos # (Auto) 0.05 K/uL (0.00-0.50) 04/17/23 18:23 Baso # (Auto) 0.03 K/uL (0.00-0.20) 04/17/23 18:23 Immature Gran # (Auto) 0.04 K/uL (0.01-0.20) 04/17/23 18:23 PT 10.7 Seconds (9.0-12.0) 04/17/23 18:23 INR 1.0 (0.9-1.1) 04/17/23 18:23 APTT 27.3 Seconds (21.0-31.0) 04/17/23 18:23 PTT Ratio 1.0 04/17/23 18:23 Sodium 135 mmol/L (136-145) L 04/17/23 23:34 Potassium 4.1 mmol/L (3.5-5.1) D 04/17/23 23:34 Chloride 104 mmol/L (98-107) 04/17/23 23:34 Carbon Dioxide 26 mmol/L (21-32) 04/17/23 23:34 Anion Gap 5 (3-11) 04/17/23 23:34 BUN 27 mg/dl (6-23) H 04/17/23 23:34 Creatinine 1.09 mg/dl (0.6-1.4) 04/17/23 23:34 Est Cr Clr Drug Dosing 63.6 ml/min 04/17/23 23:34 Est GFR ( Amer) 84.5 ml/min 04/17/23 23:34 Est GFR (Non-Af Amer) 72.9 ml/min 04/17/23 23:34 BUN/Creatinine Ratio 24.8 (10-20) H 04/17/23 23:34 Glucose 360 mg/dl (70-99(Fasting)) H* 04/17/23 23:34 POC Glucose 387 mg/dl (70-99) H* 04/17/23 22:46 Calcium 9.3 mg/dl (8.6-10.3) 04/17/23 23:34 Magnesium 2.1 mg/dl (1.7-2.4) 04/17/23 23:34 Total Bilirubin 0.6 mg/dl (0.2-1.0) 04/17/23 18:23 AST 12 U/L (13-39) L 04/17/23 18:23 ALT 18 U/L (7-52) 04/17/23 18:23 Alkaline Phosphatase 144 U/L (34-104) H 04/17/23 18:23 Troponin I High Sens 16.7 pg/ml (0-20) 04/17/23 23:34 Total Protein 8.7 gm/dl (6.0-8.3) H 04/17/23 18:23 Albumin 4.8 gm/dl (3.4-5.0) 04/17/23 18:23 Globulin 3.9 gm/dl (2.5-4.0) 04/17/23 18:23 Albumin/Globulin Ratio 1.2 (0.9-2) 04/17/23 18:23 Lipase 19 U/L (11-82) 04/17/23 18:23 Procalcitonin < 0.05 ng/ml (0-0.5) 04/17/23 18:23 Urine Color Yellow 04/17/23 22:55 Urine Appearance Clear (Clear) 04/17/23 22:55 Urine pH 5.5 (4.5-7.5) 04/17/23 22:55 Ur Specific [place] 1.025 (1.000-1.030) 04/17/23 22:55 Urine Protein 1+ (Negative) H 04/17/23 22:55 Urine Glucose (UA) 3+ (Negative) H 04/17/23 22:55 Urine Ketones 1+ (Negative) H 04/17/23 22:55 Urine Blood Negative (Negative) 04/17/23 22:55 Urine Nitrite Negative (Negative) 04/17/23 22:55 Urine Bilirubin Negative (Negative) 04/17/23 22:55 Urine Urobilinogen Negative (Negative) 04/17/23 22:55 Ur Leukocyte Esterase Negative (Negative) 04/17/23 22:55 Urine WBC (Auto) 0 /hpf (0-5) 04/17/23 22:55 Urine RBC (Auto) 0-4 /hpf (0-4) 04/17/23 22:55 U Hyaline Cast (Auto) 0 /lpf (0-5) 04/17/23 22:55 U Epithel Cells (Auto) 0-5 /lpf (0-5) 04/17/23 22:55 Urine Bacteria (Auto) Negative (Negative) 04/17/23 22:55 SARS-CoV-2 (PCR) NEGATIVE (Negative) 04/17/23 18:22 Influenza Type A (PCR) Negative (Neg) 04/17/23 18:22 Influenza Type B (PCR) Negative (Neg) 04/17/23 18:22 RSV (RT-PCR) Negative (Neg) 04/17/23 18:22 Impressions Chest X-Ray 04/17/23 17:18 XR chest 2V PA/lateral CLINICAL HISTORY: Chest pain, nonspecific COMPARISON STUDY: Chest radiograph May 08, 2022. FINDINGS: No pneumothorax or pleural effusion is present. No definite consolidation is identified. Lower lung predominant interstitial thickening has progressed since prior exam. Cardiac size is normal. Mediastinal contours are normal. No evidence for pulmonary edema. IMPRESSION: Progressive lower lung interstitial thickening. This favors interstitial lung disease. However, a superimposed infectious process cannot be excluded. ACT 112: Negative or not required by law. Electronically signed by: Cassius Perez M.D. 04/17/2023 5:[address] head: No acute intracranial findings. Diagnostic Findings EKG as per my interpretation :Rate 105, sinus tachycardia, RAD, LVH, no ischemia
[2023-04-18] MEDS ORDERED: GLUCOSE 40% GEL 15 GM TUBE PO PRN (02:32)
[2023-04-18] MEDS ORDERED: DEXTROSE 50% 50 ML SYRINGE IV PRN (02:32)
[2023-04-18] MEDS ORDERED: GLUCOSE 10 TAB/TUBE PO PRN (02:32)
[2023-04-18] MEDS ORDERED: CARBOHYDRATES FOR HYPOGLYCEMIA PO PRN (02:32)
[2023-04-18] MEDS ORDERED: GLUCAGON FOR INJ 1 MG VIAL SQ PRN (02:32)
[2023-04-18] MEDS ORDERED: LANTUS PER UNIT CHARGE SQ STA ×2 (02:32→09:31)
[2023-04-18 02:35] LABS: Thyroid Stimulating Hormone 3.052 uIu/ml (0.300-4.500)
[2023-04-18] MEDS: INSULIN ASPART PER UNIT CHARGE SC SCH ×4 (03:21→20:54)
[2023-04-18] MEDS ORDERED: traMADol HCL 50 MG TABLET PO PRN (03:23)
[2023-04-18] MEDS ORDERED: PROMETHAZINE HCL 6.25 MG in SODIUM CHLORIDE 0.9% 50 ML IV PRN (03:23)
[2023-04-18] MEDS ORDERED: MoRPHine SULFATE 2 MG/ML CARP IV PRN (03:25)
[2023-04-18] MEDS ORDERED: LEVALBUTEROL 1.25 MG/3 ML NEB NEB PRN (03:26)
[2023-04-18] MEDS ORDERED: ACETAMINOPHEN 500 MG TAB PO PRN (04:10)
[2023-04-18] MEDS ORDERED: ACETAMINOPHEN 325 MG TAB PO PRN (04:10)
[2023-04-18] MEDS ORDERED: NITROGLYCERIN SL 0.4 MG/TAB TAB SL PRN (04:10)
[2023-04-18 04:12] LABS: Basophils # (auto) 0.03 K/uL (0.00-0.20); Basophils % (auto) 0.4 %; Eosinophils # (auto) 0.13 K/uL (0.00-0.50); Eosinophils % (auto) 1.7 %; Hematocrit (blood only) 44.4 % (42.0-52.0); Hemoglobin 15.6 g/dl (14.0-18.0); Immature Granulocytes # (auto) 0.01 K/uL (0.01-0.20); Immature Granulocytes % (auto) 0.1 %; Lymphocytes # (auto) 1.93 K/uL (1.20-3.40); Lymphocytes % (auto) 25.2 %; Mean Corpuscular Hemoglobin 30.5 pg (25.0-34.0); Mean Corpuscular Hgb Conc 35.1 g/dL (32.0-36.0); Mean Corpuscular Volume 86.9 fL (80.0-100.0); Mean Platelet Volume 11.1 fL (9.4-12.4); Monocytes # (auto) 0.55 K/uL (0.11-0.59); Monocytes % (auto) 7.2 %; Neutrophils # (auto) 5.02 K/uL (1.40-6.50); Neutrophils % (auto) 65.4 %; Platelet Count 143 K/uL (130-400); RDW Coefficient of Variation 14.9 % (11.5-14.5); RDW Standard Deviation 47.3 fL (36.4-46.3); Red Blood Count 5.11 M/uL (4.70-6.10); White Blood Count 7.67 K/ul (4.8-10.8)
[2023-04-18 04:33] LABS: BUN Creatinine Ratio 24.2 (10-20); Calcium 8.8 mg/dl (8.6-10.3); Creatinine Clr Calc Pharmacy 76.1 ml/min; Est GFR (African American) 105.1 ml/min; Est GFR (Non-African American) 90.6 ml/min; Potassium 3.9 mmol/L (3.5-5.1)
[2023-04-18 04:40] LABS: Troponin I High Sensitivity 17.8 pg/ml (0-20)
[2023-04-18 04:53] LABS: Partial Thromboplastin Time 27.8 Seconds (21.0-31.0)
[2023-04-18] MEDS: PANTOprazole 40 MG TAB PO SCH (06:37)
--- NOTE | 2023-04-18 06:37 | CT Scan Report ---
CT OF THE HEAD WITHOUT CONTRAST CLINICAL HISTORY: Headache. Lightheaded. COMPARISON STUDY: MRI of the brain November 2016. Head CT May 09, 2022. TECHNIQUE: Helical axial images of the head were obtained without IV contrast. Automated exposure con trol was utilized for the study. A dose lowering technique was utilized adhering to the principles o f ALARA. FINDINGS: No acute intracranial hemorrhage, midline shift or mass effect is present. The ventricular system is unremarkable. The basal cisterns are patent. No extra-axial collections are present. There are no findings to suggest acute dural sinus thrombosis or acute territorial infarct. No significant calvarial abnormalities are present. There is moderate mucosal thickening of the right sphenoid sinus . IMPRESSION: No acute intracranial findings. ACT 112: Negative or not required by law. Electronically signed by: Cassius Perez M.D. 04/18/2023 6:35 AM
[2023-04-18 06:53] LABS: Estimated Average Glucose 301 mg/dl; Hemoglobin A1C 12.1 % (4.5-5.6)
--- NOTE | 2023-04-18 08:57 | Cardiology Consultation ---
Date of Consultation April 18, 2023 Assessment & Plan (1) Chest pain: (2) Aortic stenosis: (3) Hypertension: Plan IMPRESSION: 63 year old male who initially presented to [facility] secondary to exertional chest pain, SOB, lightheadedness/presyncope, and weakness. EKG without acute changes. HS trop negative x3. Known history of moderate-severe aortic stenosis. PLAN: Symptoms concerning for progressive aortic stenosis, now possibly in the severe range-- Proceed with echocardiogram to reassess valve gradients-- further recommendations pending results. Okay to allow for a slightly elevated blood pressure until degree of is determined. Continue Lisinopril and metoprolol as ordered. Volume status appears well controlled-- not requiring diuretic therapy at this time. Continue ASA and statin for cardiovascular risk reduction. On Plavix due to a history of TIA. Case discussed with Dr. Ren. Supervising Physician Co-Signing Physician Notes Patient was seen and personally examined, chart, medications inpatient and outpatient reviewed 63-year-old male with severe arctic stenosis underlying medical issues as noted above was seeking evaluation at primary care physician office today noted worsening shortness of breath weakness and fatigue abdominal bloating as well as intermittent chest pain. Previously established with cardiology with plans for cardiac catheterization and likely valve replacement earlier this year with patient deferring until insurance coverage is complete Currently no signs of myocardial injury by EKG, enzyme or echocardiogram Being treated for possible acute bronchitis, infectious process Plan as above: Blood cultures pending we will keep n.p.o. if signs of hemodynamic instability, worsening ischemia would develop would transfer to [facility] to complete cardiac evaluation meantime we will continue medications as ordered History of Present Illness Reason for Consultation: Chest pain [facility] Attending Physician: Julio Stevenson MD History of Present Illness 63-year-old male who presented to [facility] emergency department after being referred by his PCP due to symptoms of general malaise, chest discomfort, and shortness of breath. Per the patient- he was in his normal state of health until Sunday. At this time he started developing episodes of exertional chest pain and shortness of breath. Exercise stamina significantly reduced- notes weakness in his legs and lightheadedness/presyncope with exertion. Patient has known moderate aortic stenosis and follows with Dr. Velázquez in the valve clinic. Last seen in December 2022. At this time he was to proceed with a diagnostic cardiac cath, however, this was not completed due to a lapse in his insurance and failed to follow up. Notes that he will have insurance again May 09. Labs: unremarkable including a negative HS trop x3. Head CT negative EKG: NSR nonspecific t wave changes in inferior and anterolateral leads. Tele: SR 70s. 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 noted on imaging at [facility] 11/2021- saw neurosurg 07/2022, no left ICA aneurysm per CTA of the head 08/2022 within [facility] system 4.Hypertension 5.Type 2 diabetes, uncontrolled 6.Dyslipidemia 7.History of pancreatitis, 05/2022 8.Multilevel degenerative disc disease per MRI 12/02/2021 9.Small PFO per echo at [facility] 11/2021 10.COPD/ILD with ongoing tobacco abuse 11.Alcohol use 12.History of [place]'s esophagus Allergies Allergy/AdvReac Type Severity Reaction Status Date / Time erythromycin base Allergy Intermediate Abdominal Verified 01/05/23 09:13 Pain Home Medications Medication Instructions Recorded Confirmed Type omeprazole 20 mg capsule,delayed 20 mg PO DAILYBB 03/11/19 04/17/23 History release acetaminophen 500 mg tablet 500 mg PO Q6H PRN Pain 08/01/21 04/18/23 History (Acetaminophen Extra Strength) calcium carbonate 200 mg calcium 200 mg PO DAILY PRN Gi Upset 12/01/21 04/18/23 History (500 mg) chewable tablet (Calcium Antacid) clopidogrel 75 mg tablet 75 mg PO QAM #30 tabs 12/05/21 04/18/23 Rx atorvastatin 80 mg tablet 80 mg PO QAM 05/09/22 04/18/23 History cyclobenzaprine 5 mg tablet 5 mg PO BID PRN Muscle Spasm 05/09/22 04/18/23 History insulin NPH-regular 70-30 U-100 33 unit subcut BID 01/02/23 04/18/23 History insulin 100 unit/mL subcutaneous pen (Novolin 70-30 FlexPen U-100 Insulin) metformin 500 mg tablet,extended 1,000 mg PO QDB 01/02/23 04/17/23 History release 24 hr dicyclomine 10 mg capsule 10 mg PO TID PRN Pain 01/05/23 04/18/23 History metoprolol succinate 25 mg 25 mg PO DAILY 01/05/23 04/18/23 History tablet,extended release 24 hr multivitamin 1 tab PO DAILY 01/05/23 04/17/23 History losartan 25 mg tablet 25 mg PO QAM 04/17/23 04/17/23 History rosuvastatin 40 mg tablet 40 mg PO QAM 04/17/23 04/17/23 History Patient History Medical History Aortic valve stenosis Severe per 05/2022 ECHO (PK 0.78-1.0cm2; AV mean PG 23.2mmHg; AV max velocity 3.684m/s) Arthritis, gouty Barretts esophagus Per records Chronic obstructive pulmonary disease MILD>NO INHALERS PER PATIENT Diabetes mellitus, type 2 Gallbladder sludge reason for upcoming procedure GERD (gastroesophageal reflux disease) "silent/mild" Hx of kidney disease PER PATIENT, ACUTE KIDNEY DISEASE 05/2022>WNL CURRENTLY Hx of pancreatitis HOSPITALIZED 05/2022>DKA and acute pancreatitis Hyperlipidemia Hypertension PFO (patent foramen ovale) Small per 11/2021 [facility] imaging per cardio records Stroke-like episode - History of TIA vs vertigo per cardio records 11/2021 (on Plavix) - 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 Repeat head CTA 08/2022 was unremarkable and no left ICA aneurysm identified Surgical History H/O arthroscopic knee surgery + GANGLION CYST REMOVED>RT History of carpal tunnel surgery LEFT History of cataract surgery RT/LEFT History of colonoscopy History of esophagogastroduodenoscopy (EGD) History of foot surgery RT History of tonsillectomy and adenoidectomy History of tooth extraction Nausea and vomiting after administration of anesthetic agent Family History Other Diabetes Heart disease No family history of adverse response to anesthesia Social History Smoking Status: Never smoker Tobacco Type: Cigarettes Cigarettes Per Day: 4 CIG DAILY>ADVISED; Second Hand Exposure: No; Do You Dip or Chew Tobacco: No; Hx Alcohol Use: No Hx Substance Use: No Preferred Language: Romanian Communication Ability: Effective Computer Analyst Required: No Beliefs That Will Affect Care: None marital status: Unknown Current Living Situation: Alone Current Living Situation Comment: WITH SON Feels Safe at Home: Yes Safety Concerns: Feels Safe At This Time Assistive Devices: None Review of Systems Review of Systems: All systems reviewed & are unremarkable except as noted in HPI & below Physical Exam Constitutional: WD/WN, vitals as above no acute distress Neck: normal visual inspection and trachea midline Respiratory: normal respiratory effort, lungs clear to auscultation Auscultation: + diminished lung sounds and + crackles (BL bases ); no rhonchi and no wheezes Cardiovascular: RRR, no murmur, no edema Rate/Rhythm: regular rate and regular rhythm Heart Sounds: normal S1, normal S2 (diminished) and + murmur (+3/6 harsh systolic murmur) Vessels: no JVD Extremities: no edema Gastrointestinal (Abdomen): normal bowel sounds, soft, nontender, no hepatosplenomegaly Skin: no rashes, warm and dry Neurologic: PERRL, EOMI, accommodation nl, no face palsy, no dysarthria Psychiatric: A+Ox3, euthymic affect Results & Data Vital Signs (Past 12 Hours) Vital Signs Pulse Pulse Resp BP BP Pulse Ox Pulse Ox 04/18/23 05:30 69 14 142/76 H 96 04/18/23 05:00 77 12 154/77 H 98 04/18/23 04:32 75 19 153/78 H 98 04/18/23 04:00 80 18 149/77 H 97 04/18/23 05:10 70 18 154/77 H 98 04/18/23 04:10 96 04/18/23 03:30 81 15 155/85 H 97 04/18/23 03:00 79 14 144/85 H 96 04/18/23 02:30 82 20 127/92 98 04/18/23 02:00 68 13 160/89 H 96 04/18/23 01:30 73 13 167/84 H 95 04/18/23 01:30 73 04/18/23 01:02 91 H 12 174/85 H 95 04/18/23 00:30 76 13 175/92 H 96 04/18/23 00:00 81 12 165/93 H 96 04/17/23 23:30 77 15 172/89 H 96 04/17/23 23:00 74 14 184/89 H 96 04/17/23 22:30 79 15 171/88 H 95 04/17/23 22:00 77 22 178/89 H 94 04/17/23 21:39 78 04/17/23 21:41 79 14 175/104 H 96 04/17/23 21:41 97 O2 Del Method O2 Del Method 04/18/23 05:30 Room Air 04/18/23 05:00 Room Air 04/18/23 04:32 Room Air 04/18/23 04:00 Room Air 04/18/23 05:10 Room Air 04/18/23 04:10 Room Air 04/18/23 03:30 Room Air 04/18/23 03:00 Room Air 04/18/23 02:30 Room Air 04/18/23 02:00 Room Air 04/18/23 01:30 Room Air 04/18/23 01:30 04/18/23 01:02 Room Air 04/18/23 00:30 Room Air 04/18/23 00:00 Room Air 04/17/23 23:30 Room Air 04/17/23 23:00 Room Air 04/17/23 22:30 Room Air 04/17/23 22:00 Room Air 04/17/23 21:39 04/17/23 21:41 Room Air 04/17/23 21:41 Room Air Laboratory Results Cardiac Enzymes 04/17/23 04/17/23 04/18/23 Range/Units 18:23 23:34 03:56 AST 12 L (13-39) U/L Troponin I High Sens 18.0 16.7 17.8 (0-20) pg/ml Coagulation 04/17/23 04/18/23 Range/Units 18:23 03:56 PT 10.7 (9.0-12.0) Seconds APTT 27.3 27.8 (21.0-31.0) Seconds CBC 04/17/23 04/18/23 Range/Units 18:23 03:56 WBC 11.52 H 7.67 (4.8-10.8) K/ul RBC 5.88 5.11 (4.70-6.10) M/uL Hgb 18.0 15.6 (14.0-18.0) g/dl Hct 51.2 44.4 (42.0-52.0) % Plt Count 228 143 (130-400) K/uL Neut # (Auto) 8.60 H 5.02 (1.40-6.50) K/uL Lymph # (Auto) 2.04 1.93 (1.20-3.40) K/uL [place] # (Auto) 0.76 H 0.55 (0.11-0.59) K/uL Eos # (Auto) 0.05 0.13 (0.00-0.50) K/uL Baso # (Auto) 0.03 0.03 (0.00-0.20) K/uL Comprehensive Metabolic Panel 04/17/23 04/17/23 04/18/23 Range/Units 18:23 23:34 03:56 Sodium 133 L 135 L 138 (136-145) mmol/L Potassium 5.3 H 4.1 D 3.9 (3.5-5.1) mmol/L Chloride 96 L 104 106 (98-107) mmol/L Carbon Dioxide 24 26 26 (21-32) mmol/L BUN 30 H 27 H 22 (6-23) mg/dl Creatinine 1.30 1.09 0.91 (0.6-1.4) mg/dl Glucose 569 H* 360 H* 214 H (70-99(Fasting)) mg/dl Calcium 10.2 9.3 8.8 (8.6-10.3) mg/dl AST 12 L (13-39) U/L ALT 18 (7-52) U/L Alkaline Phosphatase 144 H (34-104) U/L Total Protein 8.7 H (6.0-8.3) gm/dl Albumin 4.8 (3.4-5.0) gm/dl Intake and Output 04/17/23 04/18/23 04/18/23 22:59 06:59 14:59 Intake Total 1000 / 1000 Balance 1000 / 1000 Intake: IV 1000 / 1000 Sodium Chloride 0.9% 1,000 ml @ 1000 / 1000 125 mls/hr IV .Q8H [facility] Rx#: [id number] Other: Weight 63.14 kg
[2023-04-18] MEDS ORDERED: ATORVASTATIN 40 MG TAB PO SCH (09:00)
[2023-04-18] MEDS ORDERED: LANTUS PER UNIT CHARGE SQ SCH ×2 (09:00→09:31)
[2023-04-18] MEDS ORDERED: INFLUENZA VIRUS QUADRIVALENT VACCINE (IIV4) 0.5 ML SYR IM ONE (09:07)
[2023-04-18] MEDS ORDERED: PHARMACY GLYCEMIC MGMT CONSULT PRN (09:07)
[2023-04-18] MEDS: CLOPIDOGREL BISULFATE 75 MG TAB PO SCH (09:12)
[2023-04-18] MEDS: ENOXAPARIN INJ 30 MG/0.3 ML SYR SQ SCH (09:13)
[2023-04-18] MEDS: ASPIRIN 81 MG ECTAB PO SCH (09:13)
[2023-04-18] MEDS: MULTIVITAMIN TAB PO SCH (09:13)
[2023-04-18] MEDS: LOSARTAN POTASSIUM 25 MG TAB PO SCH (09:13)
[2023-04-18] MEDS: ROSUVASTATIN CALCIUM 20 MG TAB PO SCH (09:13)
--- NOTE | 2023-04-18 13:27 | Pharmacy Report ---
Pharmacy Glycemic Short Note 2 - Date of Service April 18, 2023 - Glycemic Short BSG Results (Last 24 hours): 04/17/23 04/17/23 04/17/23 18:23 21:35 22:46 Glucose 569 H* POC Glucose 426 H* 387 H* 04/17/23 04/18/23 04/18/23 23:34 03:09 03:56 Glucose 360 H* 214 H POC Glucose 177 H 04/18/23 04/18/23 09:02 11:53 Glucose POC Glucose 199 H 256 H OUTPATIENT ANTIDIABETIC REGIMEN: * Novolin 70/30: 33 units SC BID * Metformin ER 1 g PO QDB * HbA1c: 12.1% (04/17/23) ASSESSMENT: * 63 yo M admitted on 04/16/23 secondary to chest pain. Pharmacy has been consulted to assist with inpatient glycemic management. Patient is a Type 2 diabetic as an outpatient. Please refer to outpatient regimen and most recent HbA1c above. Of note, patient has had issues with non-compliance and uncontrolled HbA1c's for several years. * BSG elevated at 569 mg/dL upon arrival. Received 19 units of bolus insulin overnight. * Fasting BSG was 199 mg/dL this AM. Received 10 units of basal already, will give an additional 10 units around lunchtime for total morning dose of 20 units. Will add a basal scale at bedtime for hyperglycemia. * Novolog was tightened at lunchtime today when BSG was 256 mg/dL. Of note, patient is NPO currently but RN expects diet to be ordered at some point this afternoon. PLAN FOR INPATIENT GLYCEMIC CONTROL: * Hold outpatient oral diabetes medications * Basal insulin * Lantus 20 units total this AM (10 units at 0912 & 10 units at 1224) * Bolus insulin * NovoLog per scale ACHS or Q6hrs while NPO * Goal Range: Low 110 mg/dL - High 140 mg/dL * Correction Factor: 20 mg/dL/unit * Nutritional / Prandial insulin per carb ratio of 1 unit per 7 grams CHO consumed
--- NOTE | 2023-04-18 16:12 | Electrocardiogram Report ---
Test Reason : Blood Pressure : / mmHG Vent. Rate : 102 BPM Atrial Rate : 102 BPM P-R Int : 140 ms QRS Dur : 094 ms QT Int : 352 ms P-R-T Axes : 080 099 057 degrees QTc Int : 458 ms Sinus tachycardia Biatrial enlargement Rightward axis Left ventricular hypertrophy Poor R wave progression, consider anterior NE vs. lead placement vs. LVH Abnormal ECG When compared with ECG of 10-MAY-2022 10:27, T wave inversion no longer evident in Inferior leads Nonspecific T wave abnormality no longer evident in Lateral leads Confirmed by Rajinder Hi ([id number]) on 04/18/2023 4:12:00 PM Referred By: Ivon Gonzales Confirmed By:Rajinder Hi
--- NOTE | 2023-04-18 16:15 | Electrocardiogram Report ---
Test Reason : Blood Pressure : / mmHG Vent. Rate : 072 BPM Atrial Rate : 072 BPM P-R Int : 146 ms QRS Dur : 104 ms QT Int : 446 ms P-R-T Axes : 067 084 043 degrees QTc Int : 488 ms Normal sinus rhythm Possible Left atrial enlargement Minimal voltage criteria for LVH, may be normal variant Poor R wave progression, consider anterior [place] vs. lead placement vs. LVH Abnormal ECG When compared with ECG of 17-APR-2023 18:25, (unconfirmed) Nonspecific T wave abnormality now evident in Inferior leads T wave amplitude has decreased in Anterolateral leads Confirmed by Rajinder Hi ([id number]) on 04/18/2023 4:15:37 PM Referred By: Ivon Gonzales Confirmed By:Rajinder Hi
[2023-04-18] MEDS: DOXYCYCLINE HYCLATE 100 MG CAP PO SCH (20:52)
[2023-04-18] MEDS ORDERED: LANTUS PER UNIT CHARGE SQ ONE (21:00)
[2023-04-19 07:19] LABS: Basophils # (auto) 0.02 K/uL (0.00-0.20); Basophils % (auto) 0.3 %; Eosinophils % (auto) 1.3 %; Hematocrit (blood only) 45.6 % (42.0-52.0); Hemoglobin 16.1 g/dl (14.0-18.0); Immature Granulocytes # (auto) 0.03 K/uL (0.01-0.20); Immature Granulocytes % (auto) 0.4 %; Lymphocytes # (auto) 1.57 K/uL (1.20-3.40); Lymphocytes % (auto) 21.1 %; Mean Corpuscular Hemoglobin 30.9 pg (25.0-34.0); Mean Corpuscular Hgb Conc 35.3 g/dL (32.0-36.0); Mean Corpuscular Volume 87.5 fL (80.0-100.0); Mean Platelet Volume 11.4 fL (9.4-12.4); Monocytes # (auto) 0.53 K/uL (0.11-0.59); Monocytes % (auto) 7.1 %; Neutrophils # (auto) 5.18 K/uL (1.40-6.50); Neutrophils % (auto) 69.8 %; Platelet Count 163 K/uL (130-400); RDW Coefficient of Variation 15.1 % (11.5-14.5); RDW Standard Deviation 47.8 fL (36.4-46.3); Red Blood Count 5.21 M/uL (4.70-6.10); White Blood Count 7.43 K/ul (4.8-10.8)
--- NOTE | 2023-04-19 07:22 | Cardiology Progress Note ---
Date of Service April 19, 2023 Assessment & Plan (1) Chest pain: (2) Severe aortic stenosis: (3) Hypertension: Plan Impression: 63-year-old male with severe arctic stenosis and other underlying medical issues as ntoed previously who preseted to the ED after evaluation by his PCP yesterday due to worsening shortness of breath, weakness and fatigue, abdominal bloating as well as intermittent chest pain. Previously established with cardiology with plans for cardiac catheterization and likely valve replacement earlier this year with patient deferring until insurance coverage is complete Currently no signs of myocardial injury by EKG, enzyme or echocardiogram Being treated for possible acute bronchitis, infectious process Plan: Severe Aortic stenosis: symptomatic with chest pain, DEVLIN, and lightheadedness. Patient to remain NPO-- consider transfer to [facility] for valve workup with diagnostic cardiac cath, TAVR vs SAVR. EKG this am pending. Okay to allow for a slightly elevated blood pressure-- Continue Lisinopril and metoprolol as ordered. Volume status appears well controlled-- not requiring diuretic therapy at this time. Continue ASA and statin for cardiovascular risk reduction. On Plavix due to a history of TIA. Further recommendations pending Dr. Ren's assessment. Admission and Anticipated Discharge Date Admission Date: April 18, 2023 Supervising Physician Co-Signing Physician Notes Assessment and plan as well outlined above. Patient with recurrent symptoms of exertional chest pain and dyspnea with low-level activity this morning. No acute EKG changes or enzyme elevation Laboratory studies unrevealing no troponin elevation blood cultures and urine cultures negative to date Chest x-ray without signs of fluid retention or edema chronic interstitial lung disease present Would recommend tertiary care evaluation as above. Discussed with transfer center/cardiology [place] who accepts patient in transfer Subjective 63-year-old male with past medical history of severe aortic stenosis and underlying medical issues as stated previously presented to PCP with shortness of breath, chest discomfort, weakness. Previously established with cardiology with plans for cardiac catheterization and likely valve replacement earlier this year with patient deferring until insurance coverage is complete. Cardiac work-up this admission has shown no signs of myocardial injury on EKG, enzyme, or echocardiogram. He is also being treated for possible acute bronchitis/infectious process. Echocardiogram 04/18/2023: LVEF 60 to 65% with normal wall motion. Moderate concentric LVH. Grade 1 diastolic dysfunction. Possible bicuspid aortic valve with severe aortic stenosis. Blood cultures: preliminary-- no growth as of 04/19 04/19: Patient resting in bed. Has concerns with intermittent chest discomfort when was up to the bathroom this morning. Notable dyspnea and lightheadedness during this time. Now at rest he is feeling improved. Denies any symptoms of acute respiratory illness- notes that his cough has been present for "years" and is not anything new. BP and HR controlled. Tele: SR 60-80s Review of Systems Review of Systems: All systems reviewed & are unremarkable except as noted in HPI & below Physical Exam Constitutional: WD/WN, vitals as above no acute distress Neck: normal visual inspection and trachea midline Respiratory: normal respiratory effort, lungs clear to auscultation Auscultation: + diminished lung sounds and + crackles (BL bases ); no rhonchi and no wheezes Cardiovascular: RRR, no murmur, no edema Rate/Rhythm: regular rate and regular rhythm Heart Sounds: normal S1, normal S2 (diminished) and + murmur (+3/6 harsh systolic murmur) Vessels: no JVD Extremities: no edema Gastrointestinal (Abdomen): normal bowel sounds, soft, nontender, no hepatosplenomegaly Skin: no rashes, warm and dry Neurologic: PERRL, EOMI, accommodation nl, no face palsy, no dysarthria Psychiatric: A+Ox3, euthymic affect Results & Data Vital Signs (Past 12 Hours) Vital Signs Temp Pulse Pulse Resp BP Pulse Ox O2 Del Method 04/19/23 03:00 36.4 C L 76 18 133/72 97 Room Air 04/19/23 01:15 77 04/18/23 23:00 36.3 C L 72 16 137/71 97 Room Air Laboratory Results Lipids 04/19/23 Range/Units 06:17 Triglycerides 91 (0-150) mg/dl Cholesterol 109 (0-200) mg/dl HDL Cholesterol 30 mg/dl Cholesterol/HDL Ratio 3.6 (0-5) CBC 04/19/23 Range/Units 06:17 WBC 7.43 (4.8-10.8) K/ul RBC 5.21 (4.70-6.10) M/uL Hgb 16.1 (14.0-18.0) g/dl Hct 45.6 (42.0-52.0) % Plt Count 163 (130-400) K/uL Neut # (Auto) 5.18 (1.40-6.50) K/uL Lymph # (Auto) 1.57 (1.20-3.40) K/uL [place] # (Auto) 0.53 (0.11-0.59) K/uL Eos # (Auto) 0.10 (0.00-0.50) K/uL Baso # (Auto) 0.02 (0.00-0.20) K/uL Comprehensive Metabolic Panel 04/19/23 Range/Units 06:17 Sodium 140 (136-145) mmol/L Potassium 4.1 (3.5-5.1) mmol/L Chloride 108 H (98-107) mmol/L Carbon Dioxide 27 (21-32) mmol/L BUN 19 (6-23) mg/dl Creatinine 1.04 (0.6-1.4) mg/dl Glucose 155 H (70-99(Fasting)) mg/dl Calcium 9.2 (8.6-10.3) mg/dl Intake and Output 04/18/23 04/19/23 04/19/23 22:59 06:59 14:59 Intake Total 1000 / 1100 Balance 1000 / 1100 Intake: IV 1000 / 1100 Sodium Chloride 0.9% 1,000 ml @ 1000 / 1000 60 mls/hr IV .[id number] ONE Rx#: [id number] Other: Weight 64.3 kg
[2023-04-19 07:36] LABS: BUN Creatinine Ratio 18.3 (10-20); Calcium 9.2 mg/dl (8.6-10.3); Chol HDL Ratio 3.6 (0-5); Creatinine Clr Calc Pharmacy 67.8 ml/min; Est GFR (African American) 89.4 ml/min; Est GFR (Non-African American) 77.1 ml/min; Magnesium 1.9 mg/dl (1.7-2.4); Phosphorus 3.6 mg/dl (2.5-4.9); Potassium 4.1 mmol/L (3.5-5.1)
[2023-04-19] MEDS: INSULIN ASPART PER UNIT CHARGE SC SCH ×4 (07:38→21:01)
[2023-04-19] MEDS: ASPIRIN 81 MG ECTAB PO SCH (07:46)
[2023-04-19] MEDS: PANTOprazole 40 MG TAB PO SCH (07:46)
[2023-04-19] MEDS: DOXYCYCLINE HYCLATE 100 MG CAP PO SCH ×2 (07:46→20:42)
[2023-04-19] MEDS: LOSARTAN POTASSIUM 25 MG TAB PO SCH (07:46)
[2023-04-19] MEDS: MULTIVITAMIN TAB PO SCH (07:47)
[2023-04-19] MEDS: ROSUVASTATIN CALCIUM 20 MG TAB PO SCH (07:49)
--- NOTE | 2023-04-19 08:31 | Hospitalist Progress Note ---
Date of Service April 19, 2023 Assessment & Plan (1) Sepsis: Plan: Initially concern for sepsis Secondary to complicated bronchitis hx COPD/ILD, patient without respiratory distress or overt wheezing symptoms Started on doxycycline Blood cultx obtained - pending Nebs as needed Hold off on steroids for now given absence of wheezing/hypoxemia in light of patient's poorly controlled DM Chest pain initially though possibly from uncontrolled blood pressure Rule out ACS given nitroglycerin response Valvular heart disease (moderate to severe aortic stenosis/mild AR) Pt evaluated by cardiology - with minimal exertion - pt has shortness of breath, chest pain, lightheadedness No acute EKG changes or enzyme elevation Laboratory studies unrevealing no troponin elevation blood cultures and urine cultures negative to date Chest x-ray without signs of fluid retention or edema chronic interstitial lung disease present Okay to allow for a slightly elevated blood pressure-- Continue Lisinopril and metoprolol as ordered. Volume status appears well controlled-- not requiring diuretic therapy at this time. Continue ASA and statin for cardiovascular risk reduction. On Plavix due to a history of TIA. Given symptomatic severe aortic stenosis - recommend transfer to tertiary center - [facility] Hyperlipidemia, on statin Rx hx TIA, cerebral aneurysm as per records DM2 insulin requiring, mild DKA upon arrival at the ER, resolved after initial intervention, suboptimal control as of recent hemoglobin A1c of 9.08 September 2022, ISS BG goal 110-140, updated hemoglobin A1c 12% past alcohol abuse ongoing tobacco abuse, nicotine replacement therapy as needed DVT prophylaxis. Lovenox subcu Full code Admission and Anticipated Discharge Date Admission Date: April 18, 2023 Subjective Pt seen in follow up of chest pain, weakness, hx of severe hx of DM type 2 , A1c 12% also presents w/ bronchitis - started on doxy on admission Currently laying in bed in NAD. Was up and took shower and developed again severe chest pain and shortness of breath, feeling lightheaded - Discussed w/cardiology - recommend transfer to [facility] Review of Systems Review of Systems: All systems reviewed & are unremarkable except as noted in Subjective Physical Exam Physical Exam: GENERAL: elderly M in NAD SKIN: Normal color, warm HEENT: [place] palpebral conjunctivae, no ptosis NECK : Supple, no tenderness CHEST : Decreased breath sounds, no tenderness HEART : RRR, + syst. murmur ABDOMEN: Some distention, no tenderness EXTREMITIES : No LE swelling/tenderness, moves extremities NEUROLOGIC : awake and alert, oriented, no facial asymmetry, answers appropriately, slightly hard of hearing, moves extremities Results & Data Results & Data Vital Signs (Past 12 Hours) Vital Signs Temp Pulse Pulse Resp BP Pulse Ox O2 Del Method 04/19/23 07:38 36.5 C 80 18 136/73 97 Room Air 04/19/23 03:00 36.4 C L 76 18 133/72 97 Room Air 04/19/23 01:15 77 04/18/23 23:00 36.3 C L 72 16 137/71 97 Room Air Laboratory Results 04/19/23 04/19/23 04/19/23 Range/Units 07:28 06:17 06:17 WBC 7.43 (4.8-10.8) K/ul RBC 5.21 (4.70-6.10) M/uL Hgb 16.1 (14.0-18.0) g/dl Hct 45.6 (42.0-52.0) % MCV 87.5 (80.0-100.0) fL MCH 30.9 (25.0-34.0) pg MCHC 35.3 (32.0-36.0) g/dL RDW Std Deviation 47.8 H (36.4-46.3) fL RDW Coeff of Mariah 15.1 H (11.5-14.5) % Plt Count 163 (130-400) K/uL MPV 11.4 (9.4-12.4) fL Immature Gran % (Auto) 0.4 % Neut % (Auto) 69.8 % Lymph % (Auto) 21.1 % [place] % (Auto) 7.1 % Eos % (Auto) 1.3 % Baso % (Auto) 0.3 % Neut # (Auto) 5.18 (1.40-6.50) K/uL Lymph # (Auto) 1.57 (1.20-3.40) K/uL [place] # (Auto) 0.53 (0.11-0.59) K/uL Eos # (Auto) 0.10 (0.00-0.50) K/uL Baso # (Auto) 0.02 (0.00-0.20) K/uL Immature Gran # (Auto) 0.03 (0.01-0.20) K/uL Sodium 140 (136-145) mmol/L Potassium 4.1 (3.5-5.1) mmol/L Chloride 108 H (98-107) mmol/L Carbon Dioxide 27 (21-32) mmol/L Anion Gap 5 (3-11) BUN 19 (6-23) mg/dl Creatinine 1.04 (0.6-1.4) mg/dl Est Cr Clr Drug Dosing 67.8 ml/min Est GFR ( Amer) 89.4 ml/min Est GFR (Non-Af Amer) 77.1 ml/min BUN/Creatinine Ratio 18.3 (10-20) Glucose 155 H (70-99(Fasting)) mg/dl POC Glucose 155 H (70-99) mg/dl Calcium 9.2 (8.6-10.3) mg/dl Phosphorus 3.6 (2.5-4.9) mg/dl Magnesium 1.9 (1.7-2.4) mg/dl Triglycerides 91 (0-150) mg/dl Cholesterol 109 (0-200) mg/dl LDL Cholesterol, Calc 61 mg/dl VLDL Cholesterol, Calc 18 (0-30) mg/dl HDL Cholesterol 30 mg/dl Cholesterol/HDL Ratio 3.6 (0-5) 04/18/23 04/18/23 04/18/23 Range/Units 20:29 16:44 13:21 WBC (4.8-10.8) K/ul RBC (4.70-6.10) M/uL Hgb (14.0-18.0) g/dl Hct (42.0-52.0) % MCV (80.0-100.0) fL MCH (25.0-34.0) pg MCHC (32.0-36.0) g/dL RDW Std Deviation (36.4-46.3) fL RDW Coeff of Mariah (11.5-14.5) % Plt Count (130-400) K/uL MPV (9.4-12.4) fL Immature Gran % (Auto) % Neut % (Auto) % Lymph % (Auto) % [place] % (Auto) % Eos % (Auto) % Baso % (Auto) % Neut # (Auto) (1.40-6.50) K/uL Lymph # (Auto) (1.20-3.40) K/uL [place] # (Auto) (0.11-0.59) K/uL Eos # (Auto) (0.00-0.50) K/uL Baso # (Auto) (0.00-0.20) K/uL Immature Gran # (Auto) (0.01-0.20) K/uL Sodium (136-145) mmol/L Potassium (3.5-5.1) mmol/L Chloride (98-107) mmol/L Carbon Dioxide (21-32) mmol/L Anion Gap (3-11) BUN (6-23) mg/dl Creatinine (0.6-1.4) mg/dl Est Cr Clr Drug Dosing ml/min Est GFR ( Amer) ml/min Est GFR (Non-Af Amer) ml/min BUN/Creatinine Ratio (10-20) Glucose (70-99(Fasting)) mg/dl POC Glucose 206 H 270 H 243 H (70-99) mg/dl Calcium (8.6-10.3) mg/dl Phosphorus (2.5-4.9) mg/dl Magnesium (1.7-2.4) mg/dl Triglycerides (0-150) mg/dl Cholesterol (0-200) mg/dl LDL Cholesterol, Calc mg/dl VLDL Cholesterol, Calc (0-30) mg/dl HDL Cholesterol mg/dl Cholesterol/HDL Ratio (0-5) 04/18/23 04/18/23 Range/Units 11:53 09:02 WBC (4.8-10.8) K/ul RBC (4.70-6.10) M/uL Hgb (14.0-18.0) g/dl Hct (42.0-52.0) % MCV (80.0-100.0) fL MCH (25.0-34.0) pg MCHC (32.0-36.0) g/dL RDW Std Deviation (36.4-46.3) fL RDW Coeff of Mariah (11.5-14.5) % Plt Count (130-400) K/uL MPV (9.4-12.4) fL Immature Gran % (Auto) % Neut % (Auto) % Lymph % (Auto) % [place] % (Auto) % Eos % (Auto) % Baso % (Auto) % Neut # (Auto) (1.40-6.50) K/uL Lymph # (Auto) (1.20-3.40) K/uL [place] # (Auto) (0.11-0.59) K/uL Eos # (Auto) (0.00-0.50) K/uL Baso # (Auto) (0.00-0.20) K/uL Immature Gran # (Auto) (0.01-0.20) K/uL Sodium (136-145) mmol/L Potassium (3.5-5.1) mmol/L Chloride (98-107) mmol/L Carbon Dioxide (21-32) mmol/L Anion Gap (3-11) BUN (6-23) mg/dl Creatinine (0.6-1.4) mg/dl Est Cr Clr Drug Dosing ml/min Est GFR ( Amer) ml/min Est GFR (Non-Af Amer) ml/min BUN/Creatinine Ratio (10-20) Glucose (70-99(Fasting)) mg/dl POC Glucose 256 H 199 H (70-99) mg/dl Calcium (8.6-10.3) mg/dl Phosphorus (2.5-4.9) mg/dl Magnesium (1.7-2.4) mg/dl Triglycerides (0-150) mg/dl Cholesterol (0-200) mg/dl LDL Cholesterol, Calc mg/dl VLDL Cholesterol, Calc (0-30) mg/dl HDL Cholesterol mg/dl Cholesterol/HDL Ratio (0-5) Medications Administered Current Inpatient Medications Acetaminophen (Acetaminophen 325 Mg Tab) 650 mg PO Q4H PRN PRN Reason: Pain or Fever Stop: 05/18/23 04:09 Aspirin (Aspirin 81 Mg Ectab) 81 mg PO DAILY [facility] Stop: 05/18/23 07:29 Last Admin: 04/19/23 07:46 Dose: 81 mg Clopidogrel Bisulfate (Clopidogrel Bisulfate 75 Mg Tab) 75 mg PO QAM [facility] Stop: 05/18/23 08:59 Last Admin: 04/18/23 09:12 Dose: 75 mg Dextrose (Dextrose 50% 50 Ml Syringe) 25 - 50 ml IV UD PRN; Protocol PRN Reason: Hypoglycemia Protocol Stop: 05/18/23 02:31 Doxycycline Hyclate (Doxycycline Hyclate 100 Mg Cap) 100 mg PO BID [facility] Stop: 04/25/23 20:59 Last Admin: 04/19/23 07:46 Dose: 100 mg Enoxaparin Sodium (Enoxaparin Inj 30 Mg/0.3 Ml Syr) 30 mg SQ [facility] Stop: 05/18/23 08:59 Last Admin: 04/18/23 09:13 Dose: Not Given Glucagon (Glucagon For Inj 1 Mg Vial) 1 mg SQ UD PRN; Protocol PRN Reason: Hypoglycemia Protocol Stop: 05/18/23 02:31 Glucose (Glucose 10 Tab/Tube) 4 - 8 tab PO UD PRN; Protocol PRN Reason: Hypoglycemia Treatment Stop: 05/18/23 02:31 Glucose (Glucose 40% Gel 15 Gm Tube) 15 - 30 gm PO UD PRN; Protocol PRN Reason: Hypoglycemia Protocol Stop: 05/18/23 02:31 Promethazine HCl 6.25 mg/ (Sodium Chloride) 50.25 mls @ 201 mls/hr IV Q6H PRN PRN Reason: Nausea And Vomiting Stop: 05/18/23 03:22 Insulin Aspart (Insulin Aspart Per Unit Charge) 0 units SC [facility]; Protocol Stop: 05/18/23 02:34 Last Admin: 04/19/23 07:38 Dose: 1 units Insulin Glargine (Lantus Per Unit Charge) 10 units SC [facility] Stop: 05/19/23 08:59 Levalbuterol HCl (Levalbuterol 1.25 Mg/3 Ml Neb) 1.25 mg NEB Q4H PRN; Protocol PRN Reason: sob wheeze Stop: 05/18/23 03:29 Losartan Potassium (Losartan Potassium 25 Mg Tab) 25 mg PO [facility] Stop: 05/18/23 08:59 Last Admin: 04/19/23 07:46 Dose: 25 mg Metoprolol Succinate (Metoprolol Succ 25mg Ext Rel Tab) 25 mg PO DAILY [facility] Stop: 05/19/23 08:59 Last Admin: 04/19/23 07:46 Dose: 25 mg Miscellaneous (Carbohydrates For Hypoglycemia ) 15 - 30 gm PO UD PRN PRN Reason: Hypoglycemia Protocol Stop: 05/18/23 02:31 Miscellaneous Information (Pharmacy Glycemic Mgmt Consult) 1 each N/A UD PRN; Protocol PRN Reason: Consult Stop: 05/18/23 09:06 Morphine Sulfate (Morphine Sulfate 2 Mg/Ml [place]) 2 mg IV Q4H PRN PRN Reason: Pain Stop: 05/02/23 03:24 Multivitamins (Multivitamin Tab) 1 tab PO DAILY [facility] Stop: 05/18/23 08:59 Last Admin: 04/19/23 07:47 Dose: 1 tab Nitroglycerin (Nitroglycerin Sl 0.4 Mg/Tab Tab) 0.4 mg SL Q5M PRN PRN Reason: Chest Pain Stop: 05/18/23 04:09 Pantoprazole Sodium (Pantoprazole 40 Mg Tab) 40 mg PO DAILYBB [facility] Stop: 05/18/23 06:29 Last Admin: 04/19/23 07:46 Dose: 40 mg Rosuvastatin Calcium (Rosuvastatin Calcium 20 Mg Tab) 40 mg PO QAM [facility] Stop: 05/18/23 08:59 Last Admin: 04/19/23 07:49 Dose: 40 mg Tramadol HCl (Tramadol Hcl 50 Mg Tablet) 25 - 50 mg PO Q4H PRN PRN Reason: Pain Stop: 05/18/23 03:22
[2023-04-19] MEDS ORDERED: LANTUS PER UNIT CHARGE SC SCH ×3 (09:00→21:00)
[2023-04-19] MEDS ORDERED: METOPROLOL SUCC 25MG EXT REL TAB PO SCH (09:00)
[2023-04-19] MEDS: CLOPIDOGREL BISULFATE 75 MG TAB PO SCH (09:38)
[2023-04-19] MEDS: ENOXAPARIN INJ 30 MG/0.3 ML SYR SQ SCH (09:57)
--- NOTE | 2023-04-19 12:46 | Electrocardiogram Report ---
Test Reason : Blood Pressure : / mmHG Vent. Rate : 077 BPM Atrial Rate : 077 BPM P-R Int : 144 ms QRS Dur : 108 ms QT Int : 406 ms P-R-T Axes : 071 091 048 degrees QTc Int : 459 ms Normal sinus rhythm Rightward axis Poor R wave progression, consider anterior [place] vs. lead placement vs. LVH Abnormal ECG When compared with ECG of 18-APR-2023 02:33, No significant change was found Confirmed by Rajinder Hi ([id number]) on 04/19/2023 12:46:25 PM Referred By: Ivon Gonzales Confirmed By:Rajinder Hi
--- NOTE | 2023-04-19 13:17 | Discharge Summary ---
Date of Service April 19, 2023 Admission HPI Per Admitting Provider History obtained from patient and records. Medical history significant for COPD/ILD, valvular heart disease (moderate to severe aortic stenosis/mild AR), hypertension, hyperlipidemia, TIA, cerebral aneurysm as per records, DM2 insulin requiring, gout, past alcohol abuse, ongoing tobacco abuse. Last confinement May 2022 for DKA, pancreatitis. Patient discharged to SNF rehab before eventually going home. 1 week history of junky cough symptoms. 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 Some shortness of breath, no weight gain. Denies aspiration. Substernal pain without radiation not related to coughing as per patient. Patient seen at PCPs office yesterday. Achy headache symptoms. Subsequently directed to ER. Highest SBP of 180s documented at the ER. IVF and IV insulin administered for BSG 500s at the ER. Chest pain improved with nitroglycerin administration. 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 Admission Exam Per Admitting Provider GENERAL: comfortable, no respiratory distress SKIN: Normal color, warm HEENT: [place] palpebral conjunctivae, no ptosis, dry buccal mucosa NECK : Supple, no tenderness CHEST : Decreased breath sounds, no tenderness HEART : RRR, no obvious murmurs ABDOMEN: Some distention, no tenderness EXTREMITIES : No LE swelling/tenderness, no other conspicuous deformities noted NEUROLOGIC : Coherent, no facial asymmetry, slightly hard of hearing, no other gross focality Principal Diagnosis Chest pain, dyspnea on exertion, lightheadedness secondary to severe aortic stenosis Discharge Exam GENERAL: elderly M in NAD SKIN: Normal color, warm HEENT: [place] palpebral conjunctivae, no ptosis NECK : Supple, no tenderness CHEST : Decreased breath sounds, no tenderness HEART : RRR, + syst. murmur ABDOMEN: Some distention, no tenderness EXTREMITIES : No LE swelling/tenderness, moves extremities NEUROLOGIC : awake and alert, oriented, no facial asymmetry, answers appropriately, slightly hard of hearing, moves extremities Discharge Data Allergies Allergy/AdvReac Type Severity Reaction Status Date / Time erythromycin base Allergy Intermediate Abdominal Verified 01/05/23 09:13 Pain Consultations 04/18/23 01:52 ED Decision to Admit Stat 04/18/23 04:10 Consult Cardiology Routine Ordered Studies 04/18/23 03:23 CT head/brain wo con Stat FINDINGS: No acute intracranial hemorrhage, midline shift or mass effect is present. The ventricular system is unremarkable. The basal cisterns are patent. No extra-axial collections are present. There are no findings to suggest acute dural sinus thrombosis or acute territorial infarct. No significant calvarial abnormalities are present. There is moderate mucosal thickening of the right sphenoid sinus. IMPRESSION: No acute intracranial findings. Hospital Course (1) Sepsis: Initially concern for sepsis Secondary to complicated bronchitis hx COPD/ILD, patient without respiratory distress or overt wheezing symptoms Started on doxycycline Blood cultx obtained - pending Nebs as needed Hold off on steroids for now given absence of wheezing/hypoxemia in light of patient's poorly controlled DM Chest pain initially though possibly from uncontrolled blood pressure Rule out ACS given nitroglycerin response Valvular heart disease (hx of moderate to severe aortic stenosis/mild AR) Pt evaluated by cardiology - with minimal exertion - pt has shortness of breath, chest pain, lightheadedness No acute EKG changes or enzyme elevation Laboratory studies unrevealing no troponin elevation blood cultures and urine cultures negative to date Chest x-ray without signs of fluid retention or edema chronic interstitial lung disease present Okay to allow for a slightly elevated blood pressure-- Continue Lisinopril and metoprolol as ordered. Volume status appears well controlled-- not requiring diuretic therapy at this time. Continue ASA and statin for cardiovascular risk reduction. On Plavix due to a history of TIA. Given symptomatic severe aortic stenosis - recommend transfer to tertiary center - [facility] Hyperlipidemia, on statin Rx hx TIA, cerebral aneurysm as per records DM2 insulin requiring, mild DKA upon arrival at the ER, resolved after initial intervention, suboptimal control as of recent hemoglobin A1c of 9.08 September 2022, ISS BG goal 110-140, updated hemoglobin A1c 12% past alcohol abuse ongoing tobacco abuse, nicotine replacement therapy as needed Total Time Total Time Spent Total Time Spent (In Minutes): 40 Discharge Plan Discharge Items Patient Disposition: Transfer Acute Care Hospital Reason For Visit: SEPSIS,CP Discharge Diagnosis: Chest pain, dyspnea on exertion, lightheadedness secondary to severe aortic stenosis Activity: Per Instructions section Non-emergency contact: Specialist and [facility] Call non-emergency contact if: you have any medication questions and your symptoms worsen Follow-up/Referrals: Anabel Ortiz MD [Primary Care Provider] - Diet: Nothing by Mouth Addtl Attending Provider Instructions: Pt to be transferred to [facility] for further evaluation and treatment of severe aortic stenosis. Pending Studies at Discharge: Yes Studies:: final blood cultx results Stand-Alone Forms: My [facility] Skilled Items Patient informed of condition?: Yes DNR: No Discharge Level of Care: Other Communicable Disease: No Discharge Prognosis: Other Lines: Peripheral IV Urinary Catheter: No Medications and DC Order Prescriptions: Continued omeprazole 20 mg capsule,delayed release(DR/EC) 20 mg PO DAILYBB acetaminophen [Acetaminophen Extra Strength] 500 mg Tablet 500 mg PO Q6H PRN (Reason: Pain) calcium carbonate [Calcium Antacid] 200 mg calcium (500 mg) Tablet,Chewable 200 mg PO DAILY PRN (Reason: Gi Upset) clopidogrel 75 mg Tablet 75 mg PO QAM Qty: 30 0RF atorvastatin 80 mg tablet 80 mg PO QAM cyclobenzaprine 5 mg tablet 5 mg PO BID PRN (Reason: Muscle Spasm) metformin 500 mg Tablet Extended Release 24 Hr 1,000 mg PO QDB Novolin 70-30 FlexPen U-100 100 unit/mL (70-30) Insulin Pen 33 unit SUBCUT BID multivitamin Tablet 1 tab PO DAILY dicyclomine 10 mg Capsule 10 mg PO TID PRN (Reason: Pain) metoprolol succinate 25 mg Tablet Extended Release 24 Hr 25 mg PO DAILY losartan 25 mg tablet 25 mg PO QAM rosuvastatin 40 mg tablet 40 mg PO QAM Discharge Orders: Discharge Order (Routine); Ordered 04/19/23 Ordered By: Julio Stevenson Admission Data Admit Date/Time: 04/18/23 03:19 Attending Provider: Julio Stevenson Admit Provider: Jose Lyn Primary Care Provider: Anabel Ortiz Other Providers: Jose Lyn ; Cecelia Santos ; Lior Casas ; Marty Ren ; Pedro Segura ; Alexei Rosario ; Zbigniew Hwang ; Laquita Fair ; Tricia Naqvi ; Cecelia Morataya ; Beto Graham ; Blake Chiang ; Britney Eastman ; Arlen Arndt ; Dago Bansal
[2023-04-20] MEDS ORDERED: INSULIN ASPART PER UNIT CHARGE SC SCH
[2023-04-20] MEDS ORDERED: ENOXAPARIN INJ 40 MG/0.4 ML SYR SQ SCH (09:00)
== END 2023-04-20 00:32 | disposition short-term general hospital (02) | DRG 306 ==
LOC: ED 17:07 → EDINP 04-18 03:19 → 2S 04-18 04:09

== ENCOUNTER 2024-05-28 18:38 | Inpatient (IN) ==
--- NOTE | 2024-05-28 19:45 | Emergency Department Note ---
History of Present Illness General Chief complaint: Hip Pain Stated complaint: Hip Pain Time Seen by Provider: 05/28/24 19:26 History of Present Illness Maximum Pain Intensity: 10 This is a 64-year-old male that presents to the emergency department via private vehicle with complaints of "left hip pain/low back pain". The patient notes that he has been experiencing discomfort to the left hip and low back area since this past Sunday. No known trauma or injury. The patient does note perhaps some mild weakness to the left leg but otherwise without lower extremity weakness. No bowel or bladder incontinence. No numbness or tingling in genital region. Patient notes he was here in the ED recently and continues with symptoms. He had a follow-up x-ray performed today at [facility] and notes mild osteoarthritis of the hips. Patient does note he has been watching his blood sugars and they have been fluctuating recently. Last insulin dose was this morning. Home Medications Medication Instructions Recorded Confirmed Type omeprazole 20 mg capsule,delayed 20 mg PO DAILYBB 03/11/19 05/28/24 History release metformin 500 mg tablet,extended 500 mg PO BID 01/02/23 05/28/24 History release 24 hr rosuvastatin 40 mg tablet 40 mg PO QAM 04/17/23 05/28/24 History warfarin 2.5 mg tablet See Rx Instructions .Route .COMPLEX 05/07/24 05/28/24 History cyclobenzaprine 5 mg tablet 5 mg PO TID PRN muscle spasm #30 05/26/24 05/28/24 Rx tabs ketorolac 10 mg tablet 10 mg PO BID PRN pain #10 tabs 05/26/24 05/28/24 Rx aspirin 81 mg tablet,delayed 81 mg PO DAILY 05/28/24 05/28/24 History release Allergies Allergy/AdvReac Type Severity Reaction Status Date / Time erythromycin base Allergy Intermediate Abdominal Verified 05/07/24 21:28 Pain Past Med/Surg History Problem List (Updated 05/29/24 @ 00:46 by Kaden Llanes PA-C) Hyperglycemia (Acute) Acute pain of left hip (Acute) Hip pain (Acute) Severe aortic stenosis Sepsis Chest pain (Acute) Weakness (Acute) DKA (diabetic ketoacidosis) (Acute) Hyperglycemia (Acute) Pancreatitis Irritable bowel syndrome (Chronic) DKA (diabetic ketoacidoses) (Acute) Hyperkalemia (Acute) Diabetes (Acute) Carpal tunnel syndrome Admitted to intensive care unit Acute kidney injury superimposed on chronic kidney disease Dehydration (Acute) Tachycardia (Acute) Back pain Aortic stenosis Hyperglycemic crisis in diabetes mellitus DKA (diabetic ketoacidosis) (Acute) Elevated troponin Hyperkalemia (Acute) Gastroparesis Altered mental status (Acute) OMARI (acute kidney injury) (Acute) Hypothermia (Acute) Acute pancreatitis Ileus, unspecified Hyponatremia Metabolic acidosis, increased anion gap Uncontrolled type 2 DM with hyperosmolar nonketotic hyperglycemia Encounter for pre-operative examination DM2 (diabetes mellitus, type 2) Abnormal gall bladder diagnostic imaging Pneumonia H/O TIA (transient ischemic attack) and stroke ILD (interstitial lung disease) GERD (gastroesophageal reflux disease) Stroke-like episode (Acute) - History of TIA vs vertigo per cardio records 11/2021 (on Plavix) - 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 Repeat head CTA 08/2022 was unremarkable and no left ICA aneurysm identified Hypertension Hyperlipidemia Medical History PFO (patent foramen ovale) Small per 11/2021 [facility] imaging per cardio records Barretts esophagus Per records Gallbladder sludge reason for upcoming procedure Arthritis, gouty Hx of kidney disease PER PATIENT, ACUTE KIDNEY DISEASE 05/2022>WNL CURRENTLY GERD (gastroesophageal reflux disease) "silent/mild" Diabetes mellitus, type 2 Hx of pancreatitis HOSPITALIZED 05/2022>DKA and acute pancreatitis Aortic valve stenosis Severe per 05/2022 ECHO (PK 0.78-1.0cm2; AV mean PG 23.2mmHg; AV max velocity 3.684m/s) Chronic obstructive pulmonary disease MILD>NO INHALERS PER PATIENT Surgical History Nausea and vomiting after administration of anesthetic agent H/O arthroscopic knee surgery + GANGLION CYST REMOVED>RT History of esophagogastroduodenoscopy (EGD) History of colonoscopy History of tooth extraction History of tonsillectomy and adenoidectomy History of cataract surgery RT/LEFT History of foot surgery RT History of carpal tunnel surgery LEFT Family History Other Diabetes Heart disease No family history of adverse response to anesthesia Social History Smoking Status: Current every day smoker Tobacco Type: Cigarettes Cigarettes Per Day: 4 CIG DAILY>ADVISED; Second Hand Exposure: No; Do You Dip or Chew Tobacco: No; Hx Alcohol Use: No Hx Substance Use: No Preferred Language: Luxembourgish Communication Ability: Effective Bus Inspector Required: No Beliefs That Will Affect Care: None marital status: Unknown Current Living Situation: Family Current Living Situation Comment: WITH SON Feels Safe at Home: Yes Assistive Devices: None Review of Systems A total of 10 systems reviewed and were otherwise negative Physical Exam Vital Signs Vital Signs - 24 hr 05/28/24 18:42 05/28/24 22:36 05/28/24 22:47 Temperature 36.7 C Temperature Source Temporal Artery Scan Pulse Rate 106 H 89 93 H Pulse Rate [Right Finger] Pulse Rate from SpO2 Sensor 89 Respiratory Rate 18 16 Respiratory Effort / Characteristics Non-Labored Spontaneous Respiratory Depth Normal Blood Pressure 154/79 H 165/78 H Blood Pressure [Left Arm] Blood Pressure Mean 104 107 Blood Pressure Mean [Left Arm] Blood Pressure Position Sitting Pulse Oximetry 92 96 Oxygen Delivery Method Room Air Room Air Sepsis Recent Fever Within 48 Hours No Sepsis New/Unexplained Change in Mental Status N/A Sepsis Action Taken by Nursing No Action Required 05/29/24 00:24 05/29/24 00:30 Temperature 36.9 C Temperature Source Oral Pulse Rate Pulse Rate [Right Finger] 90 93 H Pulse Rate from SpO2 Sensor Respiratory Rate 9 L 19 Respiratory Effort / Characteristics Respiratory Depth Blood Pressure Blood Pressure [Left Arm] 149/77 H 179/87 H Blood Pressure Mean Blood Pressure Mean [Left Arm] 101 117 Blood Pressure Position Pulse Oximetry 96 96 Oxygen Delivery Method Room Air Room Air Sepsis Recent Fever Within 48 Hours Sepsis New/Unexplained Change in Mental Status Sepsis Action Taken by Nursing VITAL SIGNS - Vital signs and nursing notes were reviewed. Stable and afebrile. GENERAL -64-year-old male appearing his stated age who is in no acute distress. Communicates well with provider and answers questions appropriately. SKIN - Without rashes. Skin overlying the low back and hips are unremarkable. No herpetic lesions. HEAD - NC/AT. EYES - PERRL with EOMI bilaterally. Sclera anicteric. EARS - No deformities of external structures noted on gross examination bilaterally. NOSE - Midline and without cyanosis. No epistaxis or purulent drainage noted. MOUTH/OROPHARYNX - Without perioral cyanosis. NECK - Neck with FROM. No nuchal rigidity. LUNGS - CTA CARDIAC - RRR ABDOMEN - Abdominal contour normal without pulsations or visible masses. BS normoactive all four quadrants. No tenderness, palpable masses, hepatosplenomegaly, or ascites noted. EXTREMITIES - No clubbing or peripheral cyanosis. There is tenderness to the left lateral greater trochanter region. There is no sacral region tenderness or crepitus. +5/5 strength noted in UE/LE bilaterally. MSKno tenderness overlying the L-spine spinous processes. NEUROLOGIC - Cranial nerves grossly intact. Sensory intact to light touch throughout. PSYCH - A&O, and cooperates fully with examiner. Pt is very pleasant and interacts well with examiner. Course Administered Medications Miscellaneous (Remove Lidoderm Patch) 1 each N/A DAILY@2100 NELI Stop: 06/27/24 20:59 Last Admin: 05/28/24 20:27 Dose: Not Given Documented By: JENNIFER Discontinued Medications Sodium Chloride (Nss) 500 mls @ 500 mls/hr IV .Q1H ONE Stop: 05/28/24 22:37 Last Infusion: 05/28/24 22:47 Dose: Infused Documented By: Admin: 05/28/24 21:47 Dose: 500 mls/hr Documented By: JENNIFER Insulin Human Regular (Novolin-R Insulin Per Unit Charge) 10 units IV NOW STA Stop: 05/28/24 21:39 Last Admin: 05/28/24 21:53 Dose: Not Given Documented By: JENNIFER Insulin Human Regular (Novolin-R Insulin Per Unit Charge) 7 units IV NOW STA Stop: 05/28/24 21:50 Last Admin: 05/28/24 21:54 Dose: 7 units Documented By: JENNIFER Co-signed By: ANJALI Lidocaine (Lidocaine 5% 1 Patch) 1 patch TD NOW STA Stop: 05/28/24 20:15 Last Admin: 05/28/24 20:18 Dose: 1 patch Documented By: JENNIFER Morphine Sulfate (Morphine Sulfate 2 Mg/Ml Carp) 2 mg IV NOW STA Stop: 05/28/24 20:15 Last Admin: 05/28/24 20:18 Dose: 2 mg Documented By: JENNIFER Morphine Sulfate (Morphine Sulfate 2 Mg/Ml Carp) 2 mg IV NOW STA Stop: 05/29/24 00:19 Last Admin: 05/29/24 00:23 Dose: 2 mg Documented By: YVONNEW Medical Decision Making Laboratory Data 05/28/24 19:55 05/28/24 19:55 Lab Results 05/28/24 05/28/24 05/28/24 Range/Units 19:55 20:52 21:48 WBC 7.55 (4.8-10.8) K/ul RBC 4.85 (4.70-6.10) M/uL Hgb 14.9 (14.0-18.0) g/dl Hct 43.3 (42.0-52.0) % MCV 89.3 (80.0-100.0) fL MCH 30.7 (25.0-34.0) pg MCHC 34.4 (32.0-36.0) g/dL RDW Std Deviation 47.4 H (36.4-46.3) fL RDW Coeff of Mariah 14.6 H (11.5-14.5) % Plt Count 199 (130-400) K/uL MPV 10.2 (9.4-12.4) fL Immature Gran % (Auto) 0.3 % Neut % (Auto) 66.4 % Lymph % (Auto) 23.6 % [place] % (Auto) 7.9 % Eos % (Auto) 1.5 % Baso % (Auto) 0.3 % Neut # (Auto) 5.02 (1.40-6.50) K/uL Lymph # (Auto) 1.78 (1.20-3.40) K/uL [place] # (Auto) 0.60 H (0.11-0.59) K/uL Eos # (Auto) 0.11 (0.00-0.50) K/uL Baso # (Auto) 0.02 (0.00-0.20) K/uL Immature Gran # (Auto) 0.02 (0.01-0.20) K/uL PT 10.5 (9.0-12.0) Seconds INR 1.0 (0.9-1.1) APTT 26 (21-31) Seconds PTT Ratio 1.0 Sodium 134 L (136-145) mmol/L Potassium 4.8 (3.5-5.1) mmol/L Chloride 103 (98-107) mmol/L Carbon Dioxide 24 (21-32) mmol/L Anion Gap 7 (3-11) BUN 29 H (6-23) mg/dl Creatinine 1.17 (0.6-1.4) mg/dl Est Cr Clr Drug Dosing Not Reportable eGFR 70.48 BUN/Creatinine Ratio 24.8 H (10-20) Glucose 552 H* (70-99(Fasting)) mg/dl POC Glucose 461 H* (70-99) mg/dl Calcium 9.5 (8.6-10.3) mg/dl Total Bilirubin 0.4 (0.2-1.0) mg/dl AST 14 (13-39) U/L ALT 13 (7-52) U/L Alkaline Phosphatase 123 H (34-104) U/L Total Protein 7.4 (6.0-8.3) gm/dl Albumin 3.8 (3.4-5.0) gm/dl Globulin 3.6 (2.5-4.0) gm/dl Albumin/Globulin Ratio 1.1 (0.9-2) Urine Color Yellow Urine Appearance Clear (Clear) Urine pH 6.0 (4.5-7.5) Ur Specific Barnhart 1.025 (1.000-1.030) Urine Protein 2+ H (Negative) Urine Glucose (UA) 3+ H (Negative) Urine Ketones Negative (Negative) Urine Blood Negative (Negative) Urine Nitrite Negative (Negative) Urine Bilirubin Negative (Negative) Urine Urobilinogen Negative (Negative) Ur Leukocyte Esterase Negative (Negative) Urine WBC (Auto) 0-5 (0-5) /hpf Urine RBC (Auto) 0-2 (0-2) /hpf U Hyaline Cast (Auto) 0-2 (0-2) /lpf U Epithel Cells (Auto) 0-2 (0-2) /hpf Urine Bacteria (Auto) None Seen (None Seen) 05/28/24 05/29/24 Range/Units 22:18 00:17 WBC (4.8-10.8) K/ul RBC (4.70-6.10) M/uL Hgb (14.0-18.0) g/dl Hct (42.0-52.0) % MCV (80.0-100.0) fL MCH (25.0-34.0) pg MCHC (32.0-36.0) g/dL RDW Std Deviation (36.4-46.3) fL RDW Coeff of Mariah (11.5-14.5) % Plt Count (130-400) K/uL MPV (9.4-12.4) fL Immature Gran % (Auto) % Neut % (Auto) % Lymph % (Auto) % [place] % (Auto) % Eos % (Auto) % Baso % (Auto) % Neut # (Auto) (1.40-6.50) K/uL Lymph # (Auto) (1.20-3.40) K/uL [place] # (Auto) (0.11-0.59) K/uL Eos # (Auto) (0.00-0.50) K/uL Baso # (Auto) (0.00-0.20) K/uL Immature Gran # (Auto) (0.01-0.20) K/uL PT (9.0-12.0) Seconds INR (0.9-1.1) APTT (21-31) Seconds PTT Ratio Sodium (136-145) mmol/L Potassium (3.5-5.1) mmol/L Chloride (98-107) mmol/L Carbon Dioxide (21-32) mmol/L Anion Gap (3-11) BUN (6-23) mg/dl Creatinine (0.6-1.4) mg/dl Est Cr Clr Drug Dosing eGFR BUN/Creatinine Ratio (10-20) Glucose (70-99(Fasting)) mg/dl POC Glucose 328 H* 446 H* (70-99) mg/dl Calcium (8.6-10.3) mg/dl Total Bilirubin (0.2-1.0) mg/dl AST (13-39) U/L ALT (7-52) U/L Alkaline Phosphatase (34-104) U/L Total Protein (6.0-8.3) gm/dl Albumin (3.4-5.0) gm/dl Globulin (2.5-4.0) gm/dl Albumin/Globulin Ratio (0.9-2) Urine Color Urine Appearance (Clear) Urine pH (4.5-7.5) Ur Specific Barnhart (1.000-1.030) Urine Protein (Negative) Urine Glucose (UA) (Negative) Urine Ketones (Negative) Urine Blood (Negative) Urine Nitrite (Negative) Urine Bilirubin (Negative) Urine Urobilinogen (Negative) Ur Leukocyte Esterase (Negative) Urine WBC (Auto) (0-5) /hpf Urine RBC (Auto) (0-2) /hpf U Hyaline Cast (Auto) (0-2) /lpf U Epithel Cells (Auto) (0-2) /hpf Urine Bacteria (Auto) (None Seen) Imaging Data Radiologist's Impression: Lumbar Spine CT 05/28/24 19:42 Exam(s): CT L SPINE EXAM: CT Lumbar Spine Without Intravenous Contrast CLINICAL HISTORY: Reason for exam: L hip region pain/sacral region pain. TECHNIQUE: Axial computed tomography images of the lumbar spine without intravenous contrast. CTDI is 35 mGy and DLP is 1025.3 mGy-cm. Automated exposure control was utilized for the study. A dose lowering technique was utilized adhering to the principles of ALARA. COMPARISON: MRI from December 02, 2021 FINDINGS: Vertebrae: The lumbar spine vertebral body heights are within normal limits. No acute compression fracture or burst fracture is seen. Discs/spinal canal/neural foramina: The spinal alignment is normal. No acute fracture or subluxation is seen. Mild multilevel degenerative disc disease seen throughout the lumbar spine. There is anterior osteophyte formation at all lumbar levels. There is mild spinal stenosis at L3-4 and L4-5 due to broad-based posterior disc bulge and mild ligamentum flavum hypertrophy. Soft tissues: Unremarkable. Vasculature: Moderate calcification of the abdominal aorta and common iliac arteries which are nondilated. IMPRESSION: 1. The spinal alignment is normal. No acute fracture or subluxation is seen. 2. The lumbar spine vertebral body heights are within normal limits. No acute compression fracture or burst fracture is seen. 3. Mild multilevel degenerative disc disease seen throughout the lumbar spine. There is anterior osteophyte formation at all lumbar levels. There is mild spinal stenosis at L3-4 and L4-5 due to broad-based posterior disc bulge and mild ligamentum flavum hypertrophy. Electronically signed by: Melchor Torres MD 05/28/24 23:[address] 05/28/24 19:42 Exam(s): CT PELVIS Without Contrast EXAM: CT Pelvis Without Intravenous Contrast CLINICAL HISTORY: Reason for exam: L hip region pain/sacral region pain. TECHNIQUE: Axial computed tomography images of the pelvis without intravenous contrast. CTDI is 23.38 mGy and DLP is 683.01 mGy-cm. Automated exposure control was utilized for the study. A dose lowering technique was utilized adhering to the principles of ALARA. COMPARISON: No relevant prior studies available. FINDINGS: Bowel: Unremarkable. No obstruction. No mucosal thickening. Appendix: No findings to suggest acute appendicitis. Intraperitoneal space: Unremarkable. No free air. No significant fluid collection. Bladder: Mild urinary bladder wall thickening measuring 9 mm is likely due to decompressed status of the bladder. No stones. Reproductive: Unremarkable as visualized. Bones/joints: Mild narrowing and osteophytosis of both hip joints consistent with mild osteoarthritis. No hip fracture or dislocation is seen. Mild osteophytosis of the sacroiliac joints bilaterally. Pelvis is intact. No fracture or destructive bone lesion is seen. Soft tissues: Unremarkable. Vasculature: Unremarkable. No lower abdominal aortic aneurysm. Lymph nodes: Unremarkable. No enlarged lymph nodes. IMPRESSION: 1. Mild narrowing and osteophytosis of both hip joints consistent with mild osteoarthritis. No hip fracture or dislocation is seen. 2. Mild osteophytosis of the sacroiliac joints bilaterally. The pelvis is intact. No fracture or destructive bone lesion is seen. Electronically signed by: Melchor Torres MD 05/28/24 23:24 PM Venous Doppler Study 05/28/24 19:42 Exam(s): US VENOUS LEFT LOWER EXTREMITY EXAM: US Duplex Left Lower Extremity Veins CLINICAL HISTORY: Reason for exam: L leg pain. TECHNIQUE: Real-time duplex ultrasound scan of the left lower extremity veins integrating B-mode two-dimensional vascular structure, Doppler spectral analysis, color flow Doppler imaging and compression. COMPARISON: No relevant prior studies available. FINDINGS: Deep veins: Unremarkable. No DVT in the visualized common femoral, femoral, proximal deep femoral or popliteal veins. The veins demonstrate normal color flow, are normally compressible, with normal phasic flow and/or augmentation response. Superficial veins: Unremarkable. No thrombus in the visualized great saphenous vein. Soft tissues: No acute findings. No popliteal cyst. IMPRESSION: Negative left lower extremity venous duplex ultrasound. There is no evidence of DVT. Electronically signed by: Melchor Torres MD 05/28/24 23:25 PM [facility] Narrative Patient was seen and evaluated as above in room D03a. Review was performed of triage nursing notes and vital signs. I did review pertinent previous visits and patient history. After obtaining a thorough history and physical examination the above work up was performed. Patient presents to us today for evaluation of left hip pain/low back pain. Patient clinically well-appearing and nontoxic on assessment. CT of the L-spine and pelvis was obtained as well as left lower extremity Doppler study. Low suspicion for DVT. Doppler study was negative. CT scan of the pelvis and L- spine are as above and were essentially negative for emergent process. Degenerative changes noted. Patient was medicated here with IV morphine. Labs reveal no leukocytosis or concerning anemia. Mild hyponatremia 134 which corrects to 141 noting hyperglycemia. Patient glucose resulted at 552. I did order 10 units of IV insulin however prior to administration BSG rechecked and this was 461. I did readjust dose to 7 units instead of 10 units noting patient's weight and glucose of 461. IV fluids also ordered as patient does clinically appear dehydrated. The patient does continue with left hip discomfort, additional IV analgesia ordered. The patient's blood sugar is also concerning and was trended here carefully. I do believe that further evaluation and management in the inpatient setting is warranted. Case discussed with the hospitalist service. Please refer to further documentation regarding his stay. GCS: 15 In the evaluation and treatment of this patient the following differential diagnoses were entertained: Fracture, dislocation, subluxation, contusion, sprain, strain, infection, cauda equina syndrome, among others Impression & Plan Acute pain of left hip, Hyperglycemia Discharge Plan Visit Data Chief Complaint: Hip Pain Stated Complaint: Hip Pain ED Provider: Belen Schilling ED Midlevel Provider: Kaden Llanes Discharge Problem: Acute pain of left hip, Hyperglycemia Patient Disposition: Admitted As Inpatient Condition: Good Forms Stand Alone Forms: My [facility], Important Visit Information Prescriptions Prescriptions: No Action omeprazole 20 mg capsule,delayed release(DR/EC) 20 mg PO DAILYBB metformin 500 mg Tablet Extended Release 24 Hr 500 mg PO BID rosuvastatin 40 mg tablet 40 mg PO QAM warfarin 2.5 mg tablet See Rx Instructions .ROUTE .COMPLEX Rx Instructions: Per patient, he states he hasn't taken Warfarin in about 3 months and is unsure of the dose he should be taking...has an appointment tomorrow to meet with [facility] and discuss going back on warfarin ketorolac 10 mg tablet 10 mg PO BID PRN (Reason: pain) Qty: 10 0RF Rx Instructions: NO MONEY TO LEADERSHIP RECRUITER FROM PHARMACY cyclobenzaprine 5 mg tablet 5 mg PO TID PRN (Reason: muscle spasm) Qty: 30 0RF Rx Instructions: NO MONEY TO LEADERSHIP RECRUITER FROM PHARMACY aspirin [Aspirin Low-Strength] 81 mg Tablet,Delayed Release (Dr/Ec) 81 mg PO DAILY Referrals Referrals: Anabel Ortiz MD [Primary Care Provider] -
[2024-05-28 20:13] LABS: Basophils # (auto) 0.02 K/uL (0.00-0.20); Basophils % (auto) 0.3 %; Eosinophils # (auto) 0.11 K/uL (0.00-0.50); Eosinophils % (auto) 1.5 %; Hematocrit (blood only) 43.3 % (42.0-52.0); Hemoglobin 14.9 g/dl (14.0-18.0); Immature Granulocytes # (auto) 0.02 K/uL (0.01-0.20); Immature Granulocytes % (auto) 0.3 %; Lymphocytes # (auto) 1.78 K/uL (1.20-3.40); Lymphocytes % (auto) 23.6 %; Mean Corpuscular Hemoglobin 30.7 pg (25.0-34.0); Mean Corpuscular Hgb Conc 34.4 g/dL (32.0-36.0); Mean Corpuscular Volume 89.3 fL (80.0-100.0); Mean Platelet Volume 10.2 fL (9.4-12.4); Monocytes % (auto) 7.9 %; Neutrophils # (auto) 5.02 K/uL (1.40-6.50); Neutrophils % (auto) 66.4 %; Platelet Count 199 K/uL (130-400); RDW Coefficient of Variation 14.6 % (11.5-14.5); RDW Standard Deviation 47.4 fL (36.4-46.3); Red Blood Count 4.85 M/uL (4.70-6.10); White Blood Count 7.55 K/ul (4.8-10.8)
[2024-05-28] MEDS: MoRPHine SULFATE 2 MG/ML CARP IV STA (20:18)
[2024-05-28] MEDS: LIDOCAINE 5% 1 PATCH TD STA (20:18)
[2024-05-28 20:40] LABS: Partial Thromboplastin Time 26 Seconds (21-31); Prothrombin Time 10.5 Seconds (9.0-12.0)
[2024-05-28 20:49] LABS: Alanine Aminotransferase 13 U/L (7-52); Albumin Globulin Ratio 1.1 (0.9-2); Albumin Level 3.8 gm/dl (3.4-5.0); Alkaline Phosphatase 123 U/L (34-104); Anion Gap 7 (3-11); Aspartate Aminotransferase 14 U/L (13-39); BUN Creatinine Ratio 24.8 (10-20); Bilirubin,Total 0.4 mg/dl (0.2-1.0); Blood Urea Nitrogen 29 mg/dl (6-23); Calcium 9.5 mg/dl (8.6-10.3); Carbon Dioxide 24 mmol/L (21-32); Chloride 103 mmol/L (98-107); Globulin 3.6 gm/dl (2.5-4.0); Glucose 552 mg/dl (70-99(Fasting)); Potassium 4.8 mmol/L (3.5-5.1); Sodium 134 mmol/L (136-145); Total Protein 7.4 gm/dl (6.0-8.3)
[2024-05-28 21:03] LABS: Appearance Urine Clear (Clear); Bacteria Urine Automated None Seen (None Seen); Bilirubin Urine Negative (Negative); Blood Urine Negative (Negative); Cast Urine Automated 0-2 /lpf (0-2); Color Urine Yellow; Epithelial Cell Urine Auto 0-2 /hpf (0-2); Glucose Urine UA 3+ (Negative); Ketones Urine Negative (Negative); Leukocyte Esterase Urine Negative (Negative); Nitrite Urine Negative (Negative); Protein Urine 2+ (Negative); RBC Urine Automated 0-2 /hpf (0-2); Specific Gravity Urine 1.025 (1.000-1.030); Urobilinogen Urine Negative (Negative); WBC Urine Automated 0-5 /hpf (0-5)
[2024-05-28] MEDS: SODIUM CHLORIDE 0.9% 500 ML IV ONE (21:47)
[2024-05-28] MEDS: NovoLIN-R INSULIN PER UNIT CHARGE IV STA ×2 (21:50→21:53)
--- NOTE | 2024-05-28 23:23 | CT Scan Report ---
Exam(s): CT L SPINE EXAM: CT Lumbar Spine Without Intravenous Contrast CLINICAL HISTORY: Reason for exam: L hip region pain/sacral region pain. TECHNIQUE: Axial computed tomography images of the lumbar spine without intravenous contrast. CTDI is 35 mGy and DLP is 1025.3 mGy-cm. Automated exposure control was utilized for the study. A dose lowering technique was utilized adhering to the principles of ALARA. COMPARISON: MRI from December 02, 2021 FINDINGS: Vertebrae: The lumbar spine vertebral body heights are within normal limits. No acute compression fracture or burst fracture is seen. Discs/spinal canal/neural foramina: The spinal alignment is normal. No acute fracture or subluxation is seen. Mild multilevel degenerative disc disease seen throughout the lumbar spine. There is anterior osteophyte formation at all lumbar levels. There is mild spinal stenosis at L3-4 and L4-5 due to broad-based posterior disc bulge and mild ligamentum flavum hypertrophy. Soft tissues: Unremarkable. Vasculature: Moderate calcification of the abdominal aorta and common iliac arteries which are nondilated. IMPRESSION: 1. The spinal alignment is normal. No acute fracture or subluxation is seen. 2. The lumbar spine vertebral body heights are within normal limits. No acute compression fracture or burst fracture is seen. 3. Mild multilevel degenerative disc disease seen throughout the lumbar spine. There is anterior osteophyte formation at all lumbar levels. There is mild spinal stenosis at L3-4 and L4-5 due to broad-based posterior disc bulge and mild ligamentum flavum hypertrophy. Electronically signed by: Melchor Torres MD 05/28/24 23:22 PM
--- NOTE | 2024-05-28 23:25 | CT Scan Report ---
Exam(s): CT PELVIS Without Contrast EXAM: CT Pelvis Without Intravenous Contrast CLINICAL HISTORY: Reason for exam: L hip region pain/sacral region pain. TECHNIQUE: Axial computed tomography images of the pelvis without intravenous contrast. CTDI is 23.38 mGy and DLP is 683.01 mGy-cm. Automated exposure control was utilized for the study. A dose lowering technique was utilized adhering to the principles of ALARA. COMPARISON: No relevant prior studies available. FINDINGS: Bowel: Unremarkable. No obstruction. No mucosal thickening. Appendix: No findings to suggest acute appendicitis. Intraperitoneal space: Unremarkable. No free air. No significant fluid collection. Bladder: Mild urinary bladder wall thickening measuring 9 mm is likely due to decompressed status of the bladder. No stones. Reproductive: Unremarkable as visualized. Bones/joints: Mild narrowing and osteophytosis of both hip joints consistent with mild osteoarthritis. No hip fracture or dislocation is seen. Mild osteophytosis of the sacroiliac joints bilaterally. Pelvis is intact. No fracture or destructive bone lesion is seen. Soft tissues: Unremarkable. Vasculature: Unremarkable. No lower abdominal aortic aneurysm. Lymph nodes: Unremarkable. No enlarged lymph nodes. IMPRESSION: 1. Mild narrowing and osteophytosis of both hip joints consistent with mild osteoarthritis. No hip fracture or dislocation is seen. 2. Mild osteophytosis of the sacroiliac joints bilaterally. The pelvis is intact. No fracture or destructive bone lesion is seen. Electronically signed by: Melchor Torres MD 05/28/24 23:24 PM
--- NOTE | 2024-05-28 23:27 | Ultrasound Report ---
Exam(s): US VENOUS LEFT LOWER EXTREMITY EXAM: US Duplex Left Lower Extremity Veins CLINICAL HISTORY: Reason for exam: L leg pain. TECHNIQUE: Real-time duplex ultrasound scan of the left lower extremity veins integrating B-mode two-dimensional vascular structure, Doppler spectral analysis, color flow Doppler imaging and compression. COMPARISON: No relevant prior studies available. FINDINGS: Deep veins: Unremarkable. No DVT in the visualized common femoral, femoral, proximal deep femoral or popliteal veins. The veins demonstrate normal color flow, are normally compressible, with normal phasic flow and/or augmentation response. Superficial veins: Unremarkable. No thrombus in the visualized great saphenous vein. Soft tissues: No acute findings. No popliteal cyst. IMPRESSION: Negative left lower extremity venous duplex ultrasound. There is no evidence of DVT. Electronically signed by: Melchor Torres MD 05/28/24 23:25 PM
[2024-05-29] MEDS: MoRPHine SULFATE 2 MG/ML CARP IV STA (00:23)
--- NOTE | 2024-05-29 01:14 | History & Physical Report ---
Date of Service May 29, 2024 Assessment & Plan (1) Acute pain of left hip: Plan: 64 year-old male with past medical history significant for type 2 diabetes, hyperlipidemia, interstitial lung disease, COPD, pulmonary nodules, allergic rhinitis, hypertension, aortic valve stenosis status post mechanical valve replacement, history of TIA, valvular insufficiency, GERD, gout arthropathy, personal history of alcoholism, history of pancreatitis, comes because of ongoing left hip pain. Patient states the pain started last Sunday. He was in the ER was prescribed pain medications and also saw PCP had x-ray done which showed osteoarthritis. The pain is not getting better so he came back to ER today. Patient states pain in the left hip region radiating down to left calf and foot. Having ambulatory dysfunction because of pain. In his ER also found to have sugars in the 500s. Patient says for last 2 to 3 months not taking his Coumadin after he ran out of his medications and has an appointment tomorrow with anticoagulation clinic to restart Coumadin. No headache currently. No dizziness. Vision is okay. No runny nose or sore throat. No fevers. No chest pain or shortness of breath. Has cough from his smoking. Appetite okay. No difficulty swallowing. No nausea currently. No abdominal pain. Normal bowel and bladder movements. Resting comfortably. Acute pain of left hip Radiating down his left calf and foot Pelvic CT. Mild osteoarthritis of both hip joints. Lumbar spine CT. Mild spinal stenosis and posterior disc bulge and mild ligamentum flavum hypertrophy No DVT on Doppler Pain control Ortho consult History of diabetes Hyperglycemia Hold metformin Lantus and sliding scale Glycemic pharmacy consult Follow HbA1c levels Monitor blood sugars History of mechanical aortic valve replacement Not taking Coumadin for last 2 to 3 months Has appointment tomorrow with anticoagulation clinic to restart Coumadin As per epic in the past he was taking Coumadin 12.5 mg every Sunday and Sunday and 10 mg all other days Will start Coumadin 10 mg daily for now and IV heparin bridge Monitor pt/inr. Hyperlipidemia Statin GERD Omeprazole History of COPD Seems stable Will place on inhaler as needed History of TIA On aspirin and statin and Coumadin DVT prophylaxis IV heparin until INR therapeutic Disposition Medical floor Full code. History of Present Illness Chief Complaint: Left hip pain and hyperglycemia Primary Care Provider: Anabel Ortiz MD 64 year-old male with past medical history significant for type 2 diabetes, hyperlipidemia, interstitial lung disease, COPD, pulmonary nodules, allergic rhinitis, hypertension, aortic valve stenosis status post mechanical valve replacement, history of TIA, valvular insufficiency, GERD, gout arthropathy, personal history of alcoholism, history of pancreatitis, comes because of ongoing left hip pain. Patient states the pain started last Sunday. He was in the ER was prescribed pain medications and also saw PCP had x-ray done which showed osteoarthritis. The pain is not getting better so he came back to ER today. Patient states pain in the left hip region radiating down to left calf and foot. Having ambulatory dysfunction because of pain. In his ER also found to have sugars in the 500s. Patient says for last 2 to 3 months not taking his Coumadin after he ran out of his medications and has an appointment tomorrow with anticoagulation clinic to restart Coumadin. No headache currently. No dizziness. Vision is okay. No runny nose or sore throat. No fevers. No chest pain or shortness of breath. Has cough from his smoking. Appetite okay. No difficulty swallowing. No nausea currently. No abdominal pain. Normal bowel and bladder movements. Resting comfortably. Past med history. As mentioned above Past surgical history. Left carpal tunnel surgery. Colonoscopy. Left heart cath. EGD with endoscopic ultrasound. Mechanical aortic valve replacement. Social history. Smokes 0.5 pack a day for last 48 years. No alcohol use. Quit alcohol 2000. No drug use. Family history. Mother had aortic stenosis. Crohn's disease. Paternal grandmother had diabetes. Hypertension. Allergies Allergy/AdvReac Type Severity Reaction Status Date / Time erythromycin base Allergy Intermediate Abdominal Verified 05/07/24 21:28 Pain Home Medications Medication Instructions Recorded Confirmed Type omeprazole 20 mg capsule,delayed 20 mg PO DAILYBB 03/11/19 05/28/24 History release metformin 500 mg tablet,extended 500 mg PO BID 01/02/23 05/28/24 History release 24 hr rosuvastatin 40 mg tablet 40 mg PO QAM 04/17/23 05/28/24 History warfarin 2.5 mg tablet See Rx Instructions .Route .COMPLEX 05/07/24 05/28/24 History cyclobenzaprine 5 mg tablet 5 mg PO TID PRN muscle spasm #30 05/26/24 05/28/24 Rx tabs ketorolac 10 mg tablet 10 mg PO BID PRN pain #10 tabs 05/26/24 05/28/24 Rx aspirin 81 mg tablet,delayed 81 mg PO DAILY 05/28/24 05/28/24 History release Past Med/Surg History Problem List (Updated 05/29/24 @ 00:46 by Kaden Llanes PA-C) Hyperglycemia (Acute) Acute pain of left hip (Acute) Hip pain (Acute) Severe aortic stenosis Sepsis Chest pain (Acute) Weakness (Acute) DKA (diabetic ketoacidosis) (Acute) Hyperglycemia (Acute) Pancreatitis Irritable bowel syndrome (Chronic) DKA (diabetic ketoacidoses) (Acute) Hyperkalemia (Acute) Diabetes (Acute) Carpal tunnel syndrome Admitted to intensive care unit Acute kidney injury superimposed on chronic kidney disease Dehydration (Acute) Tachycardia (Acute) Back pain Aortic stenosis Hyperglycemic crisis in diabetes mellitus DKA (diabetic ketoacidosis) (Acute) Elevated troponin Hyperkalemia (Acute) Gastroparesis Altered mental status (Acute) OMARI (acute kidney injury) (Acute) Hypothermia (Acute) Acute pancreatitis Ileus, unspecified Hyponatremia Metabolic acidosis, increased anion gap Uncontrolled type 2 DM with hyperosmolar nonketotic hyperglycemia Encounter for pre-operative examination DM2 (diabetes mellitus, type 2) Abnormal gall bladder diagnostic imaging Pneumonia H/O TIA (transient ischemic attack) and stroke ILD (interstitial lung disease) GERD (gastroesophageal reflux disease) Stroke-like episode (Acute) - History of TIA vs vertigo per cardio records 11/2021 (on Plavix) - 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 Repeat head CTA 08/2022 was unremarkable and no left ICA aneurysm identified Hypertension Hyperlipidemia Medical History PFO (patent foramen ovale) Small per 11/2021 [facility] imaging per cardio records Barretts esophagus Per records Gallbladder sludge reason for upcoming procedure Arthritis, gouty Hx of kidney disease PER PATIENT, ACUTE KIDNEY DISEASE 05/2022>WNL CURRENTLY GERD (gastroesophageal reflux disease) "silent/mild" Diabetes mellitus, type 2 Hx of pancreatitis HOSPITALIZED 05/2022>DKA and acute pancreatitis Aortic valve stenosis Severe per 05/2022 ECHO (PK 0.78-1.0cm2; AV mean PG 23.2mmHg; AV max velocity 3.684m/s) Chronic obstructive pulmonary disease MILD>NO INHALERS PER PATIENT Surgical History Nausea and vomiting after administration of anesthetic agent H/O arthroscopic knee surgery + GANGLION CYST REMOVED>RT History of esophagogastroduodenoscopy (EGD) History of colonoscopy History of tooth extraction History of tonsillectomy and adenoidectomy History of cataract surgery RT/LEFT History of foot surgery RT History of carpal tunnel surgery LEFT Family History Other Diabetes Heart disease No family history of adverse response to anesthesia Social History Smoking Status: Current every day smoker Tobacco Type: Cigarettes Cigarettes Per Day: 4 CIG DAILY>ADVISED; Second Hand Exposure: No; Do You Dip or Chew Tobacco: No; Hx Alcohol Use: No Hx Substance Use: No Preferred Language: [place]ese Communication Ability: Effective Yarn Weigher Required: No Beliefs That Will Affect Care: None marital status: Unknown Current Living Situation: Family Current Living Situation Comment: WITH SON Feels Safe at Home: Yes Assistive Devices: None Review of Systems Review of Systems: All systems reviewed & are unremarkable except as noted in HPI & below Physical Exam Physical Exam: General- Not in distress Head- atraumatic Eyes- PERRL. ENT- oropharynx clear Neck- supple, no JVD. Lungs- clear to auscultation no wheezing or crackles Heart- regular rate and rhythm; no murmur, no gallop. Abdomen- normal bowel sounds, soft, nontender, no distension Extremities- no pretibial edema, no erythema seen. Painful left hip movements Neuro- alert, oriented PERRL, no facial palsy; no dysarthria; moves extremities Results & Data Results & Data Vital Signs (Past 12 Hours) Vital Signs Temp Pulse Pulse Resp BP BP Pulse Ox 05/29/24 00:30 36.9 C 93 H 19 179/87 H 96 05/29/24 00:24 90 9 L 149/77 H 96 05/28/24 22:47 93 H 05/28/24 22:36 89 16 165/78 H 96 05/28/24 18:42 36.7 C 106 H 18 154/79 H 92 O2 Del Method 05/29/24 00:30 Room Air 11/21/24 00:24 Room Air 05/28/24 22:47 05/28/24 22:36 Room Air 05/28/24 18:42 Room Air Diagnostic Findings Laboratory Results WBC 7.55 K/ul (4.8-10.8) 05/28/24 19:55 RBC 4.85 M/uL (4.70-6.10) 05/28/24 19:55 Hgb 14.9 g/dl (14.0-18.0) 05/28/24 19:55 Hct 43.3 % (42.0-52.0) 05/28/24 19:55 MCV 89.3 fL (80.0-100.0) 05/28/24 19:55 MCH 30.7 pg (25.0-34.0) 05/28/24 19:55 MCHC 34.4 g/dL (32.0-36.0) 05/28/24 19:55 RDW Std Deviation 47.4 fL (36.4-46.3) H 05/28/24 19:55 RDW Coeff of Mariah 14.6 % (11.5-14.5) H 05/28/24 19:55 Plt Count 199 K/uL (130-400) 05/28/24 19:55 MPV 10.2 fL (9.4-12.4) 05/28/24 19:55 Immature Gran % (Auto) 0.3 % 05/28/24 19:55 Neut % (Auto) 66.4 % 05/28/24 19:55 Lymph % (Auto) 23.6 % 05/28/24 19:55 [place] % (Auto) 7.9 % 05/28/24 19:55 Eos % (Auto) 1.5 % 05/28/24 19:55 Baso % (Auto) 0.3 % 05/28/24 19:55 Neut # (Auto) 5.02 K/uL (1.40-6.50) 05/28/24 19:55 Lymph # (Auto) 1.78 K/uL (1.20-3.40) 05/28/24 19:55 [place] # (Auto) 0.60 K/uL (0.11-0.59) H 05/28/24 19:55 Eos # (Auto) 0.11 K/uL (0.00-0.50) 05/28/24 19:55 Baso # (Auto) 0.02 K/uL (0.00-0.20) 05/28/24 19:55 Immature Gran # (Auto) 0.02 K/uL (0.01-0.20) 05/28/24 19:55 PT 10.5 Seconds (9.0-12.0) 05/28/24 19:55 INR 1.0 (0.9-1.1) 05/28/24 19:55 APTT 26 Seconds (21-31) 05/28/24 19:55 PTT Ratio 1.0 05/28/24 19:55 Sodium 134 mmol/L (136-145) L 05/28/24 19:55 Potassium 4.8 mmol/L (3.5-5.1) 05/28/24 19:55 Chloride 103 mmol/L (98-107) 05/28/24 19:55 Carbon Dioxide 24 mmol/L (21-32) 05/28/24 19:55 Anion Gap 7 (3-11) 05/28/24 19:55 BUN 29 mg/dl (6-23) H 05/28/24 19:55 Creatinine 1.17 mg/dl (0.6-1.4) 05/28/24 19:55 Est Cr Clr Drug Dosing Not Reportable 05/28/24 19:55 eGFR 70.48 05/28/24 19:55 BUN/Creatinine Ratio 24.8 (10-20) H 05/28/24 19:55 Glucose 552 mg/dl (70-99(Fasting)) H* 05/28/24 19:55 POC Glucose 446 mg/dl (70-99) H* 05/29/24 00:17 Calcium 9.5 mg/dl (8.6-10.3) 05/28/24 19:55 Total Bilirubin 0.4 mg/dl (0.2-1.0) 05/28/24 19:55 AST 14 U/L (13-39) 05/28/24 19:55 ALT 13 U/L (7-52) 05/28/24 19:55 Alkaline Phosphatase 123 U/L (34-104) H 05/28/24 19:55 Total Protein 7.4 gm/dl (6.0-8.3) 05/28/24 19:55 Albumin 3.8 gm/dl (3.4-5.0) 05/28/24 19:55 Globulin 3.6 gm/dl (2.5-4.0) 05/28/24 19:55 Albumin/Globulin Ratio 1.1 (0.9-2) 05/28/24 19:55 Urine Color Yellow 05/28/24 20: Urine Appearance Clear (Clear) 05/28/24 20: Urine pH 6.0 (4.5-7.5) 05/28/24 20:52 Ur Specific [place] 1.025 (1.000-1.030) 05/28/24 20: Urine Protein 2+ (Negative) H 05/28/24 20: Urine Glucose (UA) 3+ (Negative) H 05/28/24 20: Urine Ketones Negative (Negative) 05/28/24 20: Urine Blood Negative (Negative) 05/28/24: Urine Nitrite Negative (Negative) 05/28/24: Urine Bilirubin Negative (Negative) 05/28/24 20:52 Urine Urobilinogen Negative (Negative) 05/28/24 20:52 Ur Leukocyte Esterase Negative (Negative) 05/28/24 20:52 Urine WBC (Auto) 0-5 /hpf (0-5) 05/28/24 20:52 Urine RBC (Auto) 0-2 /hpf (0-2) 05/28/24 20: U Hyaline Cast (Auto) 0-2 /lpf (0-2) 05/28/24 20:52 U Epithel Cells (Auto) 0-2 /hpf (0-2) 05/28/24 20:52 Urine Bacteria (Auto) None Seen (None Seen) 05/28/24 20:[address] 05/28/24 19:42 Exam(s): CT L SPINE EXAM: CT Lumbar Spine Without Intravenous Contrast CLINICAL HISTORY: Reason for exam: L hip region pain/sacral region pain. TECHNIQUE: Axial computed tomography images of the lumbar spine without intravenous contrast. CTDI is 35 mGy and DLP is 1025.3 mGy-cm. Automated exposure control was utilized for the study. A dose lowering technique was utilized adhering to the principles of ALARA. COMPARISON: MRI from December 02, 2021 FINDINGS: Vertebrae: The lumbar spine vertebral body heights are within normal limits. No acute compression fracture or burst fracture is seen. Discs/spinal canal/neural foramina: The spinal alignment is normal. No acute fracture or subluxation is seen. Mild multilevel degenerative disc disease seen throughout the lumbar spine. There is anterior osteophyte formation at all lumbar levels. There is mild spinal stenosis at L3-4 and L4-5 due to broad-based posterior disc bulge and mild ligamentum flavum hypertrophy. Soft tissues: Unremarkable. Vasculature: Moderate calcification of the abdominal aorta and common iliac arteries which are nondilated. IMPRESSION: 1. The spinal alignment is normal. No acute fracture or subluxation is seen. 2. The lumbar spine vertebral body heights are within normal limits. No acute compression fracture or burst fracture is seen. 3. Mild multilevel degenerative disc disease seen throughout the lumbar spine. There is anterior osteophyte formation at all lumbar levels. There is mild spinal stenosis at L3-4 and L4-5 due to broad-based posterior disc bulge and mild ligamentum flavum hypertrophy. Electronically signed by: Melchor Torres MD 05/28/24 23:[address] 05/28/24 19:42 Exam(s): CT PELVIS Without Contrast EXAM: CT Pelvis Without Intravenous Contrast CLINICAL HISTORY: Reason for exam: L hip region pain/sacral region pain. TECHNIQUE: Axial computed tomography images of the pelvis without intravenous contrast. CTDI is 23.38 mGy and DLP is 683.01 mGy-cm. Automated exposure control was utilized for the study. A dose lowering technique was utilized adhering to the principles of ALARA. COMPARISON: No relevant prior studies available. FINDINGS: Bowel: Unremarkable. No obstruction. No mucosal thickening. Appendix: No findings to suggest acute appendicitis. Intraperitoneal space: Unremarkable. No free air. No significant fluid collection. Bladder: Mild urinary bladder wall thickening measuring 9 mm is likely due to decompressed status of the bladder. No stones. Reproductive: Unremarkable as visualized. Bones/joints: Mild narrowing and osteophytosis of both hip joints consistent with mild osteoarthritis. No hip fracture or dislocation is seen. Mild osteophytosis of the sacroiliac joints bilaterally. Pelvis is intact. No fracture or destructive bone lesion is seen. Soft tissues: Unremarkable. Vasculature: Unremarkable. No lower abdominal aortic aneurysm. Lymph nodes: Unremarkable. No enlarged lymph nodes. IMPRESSION: 1. Mild narrowing and osteophytosis of both hip joints consistent with mild osteoarthritis. No hip fracture or dislocation is seen. 2. Mild osteophytosis of the sacroiliac joints bilaterally. The pelvis is intact. No fracture or destructive bone lesion is seen. Electronically signed by: Melchor Torres MD 05/28/24 23:24 PM Venous Doppler Study 05/28/24 19:42 Exam(s): US VENOUS LEFT LOWER EXTREMITY EXAM: US Duplex Left Lower Extremity Veins CLINICAL HISTORY: Reason for exam: L leg pain. TECHNIQUE: Real-time duplex ultrasound scan of the left lower extremity veins integrating B-mode two-dimensional vascular structure, Doppler spectral analysis, color flow Doppler imaging and compression. COMPARISON: No relevant prior studies available. FINDINGS: Deep veins: Unremarkable. No DVT in the visualized common femoral, femoral, proximal deep femoral or popliteal veins. The veins demonstrate normal color flow, are normally compressible, with normal phasic flow and/or augmentation response. Superficial veins: Unremarkable. No thrombus in the visualized great saphenous vein. Soft tissues: No acute findings. No popliteal cyst. IMPRESSION: Negative left lower extremity venous duplex ultrasound. There is no evidence of DVT. Electronically signed by: Melchor Torres MD 05/28/24 23:25 PM Code Status & VTE Plan VTE Prophylaxis Plan VTE Prophylaxis will be ordered: Yes
[2024-05-29] MEDS ORDERED: PHARMACY GLYCEMIC MGMT CONSULT PRN (02:55)
[2024-05-29] MEDS ORDERED: GLUCOSE 10 TAB/TUBE PO PRN (02:55)
[2024-05-29] MEDS ORDERED: DEXTROSE 50% 50 ML SYRINGE IV PRN (02:55)
[2024-05-29] MEDS ORDERED: CARBOHYDRATES FOR HYPOGLYCEMIA PO PRN (02:55)
[2024-05-29] MEDS ORDERED: GLUCAGON FOR INJ 1 MG VIAL SQ PRN (02:55)
[2024-05-29] MEDS ORDERED: GLUCOSE 40% GEL 15 GM TUBE PO PRN (02:55)
[2024-05-29] MEDS ORDERED: POLYETHYLENE (MIRALAX) 17 GM PACK PO PRN (02:55)
[2024-05-29] MEDS ORDERED: CYCLOBENZAPRINE HCL 5 MG TAB PO PRN (02:55)
[2024-05-29] MEDS ORDERED: STAT IV Infusion **Titration per Protocol STA (03:10)
[2024-05-29] MEDS: HEPARIN SODIUM/DEXTROSE 25,000 UNITS/500 ML BAG IV SCH (03:54)
[2024-05-29] MEDS: HEPARIN SOD (PORCINE) 1000 UNIT/ML IV ONE (03:54)
[2024-05-29] MEDS: oxyCODONE HCL IR 5 MG TAB (IMMEDIATE RELEASE) PO PRN (03:55)
[2024-05-29] MEDS: Heparin IV Adult Wt-Based Standard w/ INITIAL Bolus Protocol IV SCH (04:15)
[2024-05-29] MEDS: INSULIN HUMAN REGULAR IV BOLUS 1.5 UNITS in SYRINGE 0 ML IV ONE (04:53)
[2024-05-29] MEDS: INSULIN REGULAR 250 UNITS in SODIUM CHLORIDE 0.9% 247.5 ML IV SCH (04:55)
[2024-05-29] MEDS: INSULIN PROTOCOL GOAL RANGE ONE (04:55)
[2024-05-29] MEDS: MODERATE STRESS LEVEL ONE (04:55)
[2024-05-29] MEDS: PANTOprazole 40 MG TAB PO SCH (05:25)
[2024-05-29] MEDS ORDERED: INSULIN ASPART PER UNIT CHARGE SC SCH (07:30)
[2024-05-29] MEDS: INSULIN ASPART PER UNIT CHARGE SC SCH ×2 (08:20→17:23)
[2024-05-29] MEDS: HYDROmorphone INJ 0.5 MG/0.5 ML SYR IV PRN (08:24)
[2024-05-29] MEDS: ACETAMINOPHEN 325 MG TAB PO PRN (08:24)
[2024-05-29] MEDS: ASPIRIN 81 MG ECTAB PO SCH (08:25)
[2024-05-29] MEDS: ROSUVASTATIN CALCIUM 20 MG TAB PO SCH (08:25)
[2024-05-29] MEDS ORDERED: ALBUTEROL HFA 8 GM INHALER INH PRN (08:29)
[2024-05-29] MEDS ORDERED: LANTUS PER UNIT CHARGE SQ SCH (09:00)
[2024-05-29] MEDS: LANTUS PER UNIT CHARGE SQ ONE (09:10)
--- NOTE | 2024-05-29 10:11 | Orthopedic Consultation ---
Date of Consultation May 29, 2024 Assessment & Plan (1) Acute pain of left hip: (2) Lumbar radiculitis: Plan 64-year-old gentleman seen and evaluated in his hospital room for left lower extremity pain. Although the patient notes that he is having "hip pain" he does not seem to have any pain in his groin. It all appears to be posterior and lateral over his gluteals that extends down the back of his leg. I believe that his history, physical exam are most consistent with a lumbar radiculitis. He does have advanced degenerative changes noted in his lumbar spine, and I do think that this is the primary cause of the pain and altered sensation in his lower extremity. his imaging studies do not show any acute fractures. This patient may benefit from a spine evaluation, and I would recommend that he follow-up with an arthroplasty surgeon and/or a spine surgeon as an outpatient. For his lumbar radiculitis, could consider steroid taper, but will defer to medicine. Thank you for allowing me to participate in the care of this patient. History of Present Illness Reason for Consultation: left hip pain Requesting Physician: Dr Vergara Attending Physician: Aislinn Vergara MD History of Present Illness 64-year-old gentleman admitted to the hospital for severe pain in his left hip. Reportedly, the patient began experiencing pain last week. He saw his PCP and even went to the emergency department for this pain. It did not improve, so he represented to the emergency department last evening. His past medical history significant for type 2 diabetes, hyperlipidemia, interstitial lung disease, COPD, pulmonary nodules, allergic rhinitis, hypertension, aortic valve stenosis status post mechanical valve replacement, history of TIA, valvular insufficiency, GERD, gout arthropathy, personal history of alcoholism, history of pancreatitis. Patient points to the lateral and posterior aspect of his left hip as the primary source of his pain. He does note that it extends down the posterior aspect of his leg into his foot. He states that he has some altered sensations in the foot and he does have neuropathy at baseline. Upon my initial evaluation, the patient was sitting crosslegged in his bed ordering breakfast. Patient states that he does not have pain while lying supine or seated, he only has pain when he is up and walking. He denies any fevers or chills. Denies any chest pain or shortness of breath. Allergies Allergy/AdvReac Type Severity Reaction Status Date / Time erythromycin base Allergy Intermediate Abdominal Verified 05/07/24 21:28 Pain Home Medications Medication Instructions Recorded Confirmed Type omeprazole 20 mg capsule,delayed 20 mg PO DAILYBB 03/11/19 05/28/24 History release metformin 500 mg tablet,extended 500 mg PO BID 01/02/23 05/28/24 History release 24 hr rosuvastatin 40 mg tablet 40 mg PO QAM 04/17/23 05/28/24 History warfarin 2.5 mg tablet See Rx Instructions .Route .COMPLEX 05/07/24 05/28/24 History cyclobenzaprine 5 mg tablet 5 mg PO TID PRN muscle spasm #30 05/26/24 05/28/24 Rx tabs ketorolac 10 mg tablet 10 mg PO BID PRN pain #10 tabs 05/26/24 05/28/24 Rx aspirin 81 mg tablet,delayed 81 mg PO DAILY 05/28/24 05/28/24 History release Patient History Medical History PFO (patent foramen ovale) Small per 11/2021 [facility] imaging per cardio records Barretts esophagus Per records Gallbladder sludge reason for upcoming procedure Arthritis, gouty Hx of kidney disease PER PATIENT, ACUTE KIDNEY DISEASE 05/2022>WNL CURRENTLY GERD (gastroesophageal reflux disease) "silent/mild" Diabetes mellitus, type 2 Hx of pancreatitis HOSPITALIZED 05/2022>DKA and acute pancreatitis Aortic valve stenosis Severe per 05/2022 ECHO (PK 0.78-1.0cm2; AV mean PG 23.2mmHg; AV max velocity 3.684m/s) Chronic obstructive pulmonary disease MILD>NO INHALERS PER PATIENT Surgical History Nausea and vomiting after administration of anesthetic agent H/O arthroscopic knee surgery + GANGLION CYST REMOVED>RT History of esophagogastroduodenoscopy (EGD) History of colonoscopy History of tooth extraction History of tonsillectomy and adenoidectomy History of cataract surgery RT/LEFT History of foot surgery RT History of carpal tunnel surgery LEFT Family History Other Diabetes Heart disease No family history of adverse response to anesthesia Social History Smoking Status: Current every day smoker Tobacco Type: Cigarettes Cigarettes Per Day: 4 CIG DAILY>ADVISED; Second Hand Exposure: No; Do You Dip or Chew Tobacco: No; Hx Alcohol Use: No Hx Substance Use: No Preferred Language: Kenyan Communication Ability: Effective Structures Mechanic Required: No Beliefs That Will Affect Care: None marital status: Unknown Current Living Situation: Family Current Living Situation Comment: WITH SON Feels Safe at Home: Yes Assistive Devices: None Review of Systems Review of Systems: All systems reviewed & are unremarkable except as noted in HPI & below Physical Exam Physical Exam: On physical examination the patient's left lower extremity, he has mild tenderness to palpation about the greater trochanter. He has no pain with logroll. He has no pain with heel strike. He has a positive straight leg raise with radiating pain down the legon the left. With passive range of motion of his hip, he does not have significant pain. His foot is warm and well-perfused. Results & Data Vital Signs (Past 12 Hours) Vital Signs Temp Pulse Pulse Resp BP BP Pulse Ox 05/29/24 07:43 36.6 C 81 16 140/80 95 05/29/24 03:04 05/29/24 02:11 05/29/24 02:03 79 16 165/78 H 96 05/29/24 00:30 36.9 C 93 H 19 179/87 H 96 05/29/24 00:24 90 9 L 149/77 H 96 05/28/24 22:47 93 H 05/28/24 22:36 89 16 165/78 H 96 O2 Del Method 05/29/24 07:43 Room Air 05/29/24 03:04 Room Air 05/29/24 02:11 Room Air 05/29/24 02:03 Room Air 05/29/24 00:30 Room Air 05/29/24 00:24 Room Air 05/28/24 22:47 05/28/24 22:36 Room Air Diagnostic Findings X-rays of the left hip and pelvis as well as CT scan of the pelvis and lumbar spine were personally interpreted and reviewed. These demonstrates finding consistent with osteoarthritic change of the left hip that is mild to moderate. He does have subchondral cysts, osteophytes, joint space narrowing. Additionally, the patient appears to have more significant degenerative changes in his lower lumbar spine.
--- NOTE | 2024-05-29 10:30 | XRay Report ---
XR hip LT 2V w pelvis CLINICAL HISTORY: Left hip pain. COMPARISON: Pelvis CT May 28, 2024. FINDINGS: Sacroiliac joints and symphysis pubis are intact. There are no fractures within the pelvis or hips. There are no osseous lesions. There is mild to moderate bilateral hip joint space narrowing with osteophytosis. There is no evidence for avascular necrosis of the femoral heads. IMPRESSION: 1. No fractures within the pelvis or hips. 2. Mild to moderate bilateral hip osteoarthritis. ACT 112: Negative or not required by law. Electronically signed by: Cassius Perez M.D. 05/29/2024 10:28 AM
[2024-05-29 11:40] LABS: Basophils # (auto) 0.02 K/uL (0.00-0.20); Basophils % (auto) 0.3 %; Eosinophils # (auto) 0.15 K/uL (0.00-0.50); Eosinophils % (auto) 2.5 %; Hemoglobin 14.6 g/dl (14.0-18.0); Immature Granulocytes # (auto) 0.02 K/uL (0.01-0.20); Immature Granulocytes % (auto) 0.3 %; Lymphocytes # (auto) 2.04 K/uL (1.20-3.40); Lymphocytes % (auto) 33.7 %; Mean Corpuscular Hemoglobin 31.7 pg (25.0-34.0); Mean Corpuscular Hgb Conc 35.6 g/dL (32.0-36.0); Mean Corpuscular Volume 88.9 fL (80.0-100.0); Mean Platelet Volume 10.3 fL (9.4-12.4); Monocytes # (auto) 0.44 K/uL (0.11-0.59); Monocytes % (auto) 7.3 %; Neutrophils # (auto) 3.38 K/uL (1.40-6.50); Neutrophils % (auto) 55.9 %; Platelet Count 193 K/uL (130-400); RDW Coefficient of Variation 14.6 % (11.5-14.5); Red Blood Count 4.61 M/uL (4.70-6.10); White Blood Count 6.05 K/ul (4.8-10.8)
[2024-05-29 11:41] LABS: Estimated Average Glucose 349 mg/dl; Hemoglobin A1C 13.8 % (4.5-5.6)
[2024-05-29 12:03] LABS: ANTI-Xa, UFH(UnfractionatedHep 0.52 IU/ml (0.3-0.7)
[2024-05-29 12:06] LABS: Prothrombin Time 10.7 Seconds (9.0-12.0)
--- NOTE | 2024-05-29 14:11 | Pharmacy Report ---
Pharmacy Glycemic Short Note 2 - Date of Service May 29, 2024 - Glycemic Short BSG Results (Last 24 hours): 05/28/24 05/28/24 05/28/24 19:55 21:48 22:18 Glucose 552 H* POC Glucose 461 H* 328 H* 05/29/24 05/29/24 05/29/24 00:17 02:43 02:44 Glucose POC Glucose 446 H* 401 H* 416 H* 05/29/24 05/29/24 05/29/24 04:03 05:58 06:57 Glucose POC Glucose 452 H* 315 H* 295 H 05/29/24 05/29/24 05/29/24 08:01 09:04 09:08 Glucose POC Glucose 226 H 413 H* 297 H 05/29/24 05/29/24 05/29/24 09:16 10:08 11:02 Glucose POC Glucose 314 H* 230 H 175 H 05/29/24 05/29/24 05/29/24 11:38 12:08 12:59 Glucose POC Glucose 170 H 190 H 215 H 05/29/24 13:58 Glucose POC Glucose 109 H OUTPATIENT ANTIDIABETIC REGIMEN: * metformin 500mg PO BID * HbA1c 13.8% (05/29/24), down from 15% (05/07/24) ASSESSMENT: * Derek is a 64 YOM admitted with hip pain and a history of T2DM. Admission labs showed profound hyperglycemia, not appearing to be in DKA/HHS. Pharmacy has been consulted for glycemic management while inpatient. Patient is previously known to the glycemic service. * The decision was made early this morning to begin and insulin drip early this morning after an unsuccessful IV bolus (0.1 units/kg). BSGs trended down nicely. * Discussed plan with tej Maya to transition to SQ insulin this AM. Plan for 6 hours of overlap with first dose of Lantus. Drip just discontinued for BSGs right below goal at 109. * Initiated insulin based on previously used parameters (Lantus at a weight based stress of 2, Novolog slightly tighter than a weight based stress of 3). Will add a basal scale at bedtime as well if BSGs re-elevated with discontinuation of drip. PLAN FOR INPATIENT GLYCEMIC CONTROL: * Hold outpatient oral diabetes medications * Basal insulin * Lantus 20 units SQ daily * Lantus 0-10 units SQ based on BSG (see eMAR for additional details) * Bolus insulin * NovoLog per scale ACHS or Q6hrs while NPO * Goal Range: Low 110 mg/dL - High 140 mg/dL * Correction Factor: 20 mg/dL/unit * Nutritional / Prandial insulin per carb ratio of 1 unit per 7 grams CHO consumed
[2024-05-29] MEDS ORDERED: DC IV INSULIN INFUSION 1 EA DEVI SCH (15:00)
--- NOTE | 2024-05-29 15:20 | Communication Note ---
Date of Service: May 29, 2024 Patient seen and examined. Ortho recs noted. 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
[2024-05-29] MEDS: predniSONE 20 MG TAB PO SCH (16:29)
[2024-05-29] MEDS: WARFARIN SOD 10 MG TAB PO SCH (16:29)
[2024-05-29] MEDS: LANTUS PER UNIT CHARGE SQ SCH (21:17)
--- OUTSIDE RECORDS SUMMARY | 2024-05-30 00:26 | External Medical Summary | Summary of Care ---
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 Encounter Details Date Type Department Care Team (Latest Contact Info) Description 05/28/2024 3:40 PM EST Office Visit Family Practice [facility] [address] [facility] [place] [id number] Enid Lewis CRNP [address] [place] [address] Hip pain, left*; Left foot pain; Uncontrolled type 2 diabetes mellitus with hyperglycemia (HCC); Gouty arthropathy; Diabetic peripheral neuropathy (HCC) Allergies Active Allergy Reactions Criticality Noted Date Comments Erythromycin 07/06/1997 Stomach pain documented as of this encounter (statuses as of 05/28/2024) Medications MULTIVITAMINS PO TABS Take 1 Tablet by mouth every morning. Active Calcium Carbonate Antacid 500 MG Oral Tablet Chewable Take 1 Tablet by mouth as needed. As needed 5 Active ONETOUCH DELICA LANCETS 33G MISC TEST SUGAR DAILY 100 Each 5 8 Active ONETOUCH ULTRA BLUE STRPIndications:T ype 2 diabetes mellitus with hemoglobin A1c goal of less than 7.0% (HCC) USE UP TO 4 TIMES A DAY DIRECTED. 100 Strip 5 9 Active Cyclobenzaprine HCl 5 MG Oral Tablet (Flexeril)Indicat ions:Low back pain radiating to left lower extremity Take by mouth 1 Tablet 2 times a day as needed for Muscle spasms. 12 Tablet 2 Active Additional Information Patient not taking.Reported on 05/28/2024 Clopidogrel Bisulfate 75 MG Oral Tablet (pLAVix)Indicatio ns:TIA (transient ischemic attack) Take 1 Tablet (75 mg) by mouth in the morning. In the morning.. 30 Tablet 11 2 Active Acetaminophen 500 MG Oral Tablet (Tylenol) Take 2 Tablets by mouth every 4 hours as needed. 2 Active Dicyclomine HCl 10 MG Oral Capsule (Bentyl) One tab up to 3x/day if needed for lower abdomen pain 90 Capsule 2 3 Active Metoprolol Succinate ER 25 MG Oral Tablet Extended Release 24 Hour (toPROL XL)Indications:HT N, goal below 130/80 Take 1 Tablet by mouth in the morning. 90 Tablet 3 3 Active Furosemide 40 MG Oral Tablet (Lasix) Take 1 Tablet by mouth in the morning. 30 Tablet 3 Active Additional Information Patient not taking.Reported on 05/28/2024 oxyCODONE HCl 5 MG Oral Tablet (Oxy IR) Take 1 Tablet by mouth every 4 hours as needed for Pain, Moderate. 30 Tablet 3 Active Additional Information Patient not taking.Reported on 05/28/2024 Potassium Chloride ER 10 MEQ Oral Tablet Extended Release Take 2 Tablets by mouth in the morning. 30 Tablet 3 Active metFORMIN HCl ER 500 MG Oral Tablet Extended Release 24 Hour (Glucophage XR)Indications:Un controlled type 2 diabetes mellitus with hyperglycemia (HCC),Type 2 diabetes mellitus with hemoglobin A1c goal of less than 7.0% (HCC) Take 1 Tablet by mouth 2 times a day with morning and evening meals. 180 Tablet 03/26/202 4 Active NovoLIN 70/30 (70-30) 100 UNIT/ML Subcutaneous Suspension (Insulin NPH Isophane & Regular)Indicatio ns:Uncontrolled type 2 diabetes mellitus with hyperglycemia (HCC),Type 2 diabetes mellitus with hemoglobin A1c goal of less than 7.0% (HCC) Inject 33 Units under the skin 2 times a day with morning and evening meals. 60 mL 4 Active Omeprazole 20 MG Oral Capsule Delayed Release (PriLOSEC)Indicat ions:Gastroesopha geal reflux disease without esophagitis Take 1 Capsule by mouth in the morning. 1 hour before the first meal of the day.. 90 Capsule 1 4 Active Rosuvastatin Calcium 40 MG Oral Tablet (Crestor)Indicati ons:Dyslipidemia, goal LDL below 70 Take 1 Tablet by mouth in the morning. 90 Tablet 4 Active Additional Information Patient not taking.Reported on 05/28/2024 Aspirin 81 MG Oral Tablet ChewableIndicatio ns:History of mechanical aortic valve replacement Chew 1 Tablet by mouth in the morning with food 72 Tablet 4 4 Active Ketorolac Tromethamine 10 MG Oral Tablet (Toradol) Take 1 Tablet by mouth. 4 Active Gabapentin 100 MG Oral Capsule (Neurontin) Take 1 Capsule by mouth at bedtime. 30 Capsule 4 Active documented as of this encounter (statuses as of 05/28/2024) Active Problems Problem Noted Date Diagnosed Date Hip pain, left 05/28/2024 History of mechanical aortic valve replacement 0 03/17/2024 Food insecurity 11/19/2023 Overview: Per [facility] Protocol Type 2 diabetes mellitus wit h diabetic mononeuropathy, with long-term current use of insulin 10/18/2023 Encounter for dental examination 04/24/2023 Valvular insufficiency 04/23/2023 Valvular heart disease 04/23/2023 S/P aortic valve replacement 04/23/2023 Nonrheumatic aortic valve stenosis 04/23/2023 COPD, group B, by GOLD 2017 classification 06/19 Overview: Per COPD GOLD Classification Medical home patient encounter 05/29/2022 Uncontrolled type 2 diabetes mellitus with hyper glycemia 04/04/2022 TIA (transient ischemic attack) 01/19/2022 Gastroesophageal reflux disease without esophagi tis 01/19/2022 History of acute pancreatitis 01/19/2022 Centrilobular emphysema 12/22/2021 ILD (interstitial lung disease) 12/22/2021 Aortic valve stenosis 11/08/2020 Current use of insulin 03/01/2020 Pulmonary nodules/lesions, multiple 06/07/2016 Overview (06/15/2021): Seen on CT scan 06/06/16. Largest measuring 7.2 mm LLL Stable 06/2021. One 5mm nodule slightly larger, recommend 1 year f/u. HTN, goal below 140/90 12/20/2015 Overview: Per HTN Protocol Gouty arthropathy 02/24/2015 Type 2 diabetes mellitus wit h hemoglobin A1c goal of less than 7.0% 11/05/2013 Overview (11/02/2015): ICD-10 update of inactive term HTN, goal below 130/80 11/04/2013 Dyslipidemia, goal LDL below 100 11/04/2013 Personal history of alcoholism 05/04/2012 Overview (05/04/2012): resolved Left foot pain 05/02/2012 TENOSYNOVITIS FOOT-ANKLE 08/21/2003 Keratoderma, acquired 10/04/2002 Dermatophytosis of foot 10/04/2002 Other allergic rhinitis 10/02/2002 Overview (05/01/2017): ICD-10 update of inactive term documented as of this encounter (statuses as of 05/28/2024) Resolved Problems Problem Noted Date Diagnosed Date Resolved Date Malnutrition of moderate degree 04/20/2023 05/09/2023 Chronic kidney disease 04/04/202209/28 HTN, goal below 140/80 11/06/201312/22 Overview: Per HTN Protocol Kidney disease, chronic, sta ge III (GFR 30-59 ml/min) 08/22/2013 11/06/2013 Type 1 diabetes mellitus wit h hemoglobin A1c goal of less than 7.0% 08/22/2013 11/05/2013 Overview (11/08/2015): ICD-10 update of inactive term IBS (irritable bowel syndrome) 03/07/2013 05/06/2014 Obesity, Class I, BMI 30.0-3 4.9 (see actual BMI) 11/13/2012 04/12/2017 Overview: Per Obesity protocol #1 Gout 05/04/2012 02/24/2015 Dyslipidemia, goal to be determined 06/24/2009 11/04/2013 Overview (06/24/2009): Per Lipid Taxonomy. Mixed dyslipidemia 07/03/2007 9 Overview (06/24/2009): Per Lipid Taxonomy. ADVANCE DIRECTIVE INFORMATION 12/29/2005 05/12/2024 Overview (12/29/2005): Pt has living will. Advised to bring copy. Acute bronchitis, antibiotics not indicated 04/05/2004 09/03/2008 Overview (09/03/2008): Resolved per Benign Acute Dxs Protocol #3 Tobacco use disorder 02/22/1998 011 HTN, goal below 140/90 02/22/199811/04 documented as of this encounter (statuses as of 05/28/2024) Immunizations Name Administration Dates Next Due COVID-19 mRNA, LNP-s, No Pre serve, 2-Dose Series (Moderna) 11/25/2020,10/28/2020 Hepatitis B, 20+ yrs 05/19/2015,11/19/2014,05/06 PPD 05/06/2014,05/18/2009 Pneumococcal Conjugate Vacci ne, 20-valent ([id number]) 01/19/2022 Pneumococcal Polysaccharide PPV23 (Pneumovax) 08/22/2013 Seasonal Influenza Vac., MDV , IM, 0.5 mL (Fluzone) 05/05/2014 Seasonal Influenza, PF, 6 M & above, IM , (FluLaval or Fluzone) 05/09/2023,04/04/2022,05/16/2021,04/19 Seasonal Influenza, Quadriva lent, No Preserve, IM 06/04/2018,04/23/2017,05/03/2016,04/21 Seasonal Influenza, Quadriva lent, No Preserve, Mdck 06/21/2019 Seasonal Influenza, Trivalen t, (IIV3), PF, (Fluzone) 05/07/2024 TD - Tetanus/Diptheria (ADULT) 08/02/2006 TDAP (age 10 and older)(Boostrix) 03/07/2013 Zoster Vaccine Recombinant (Shingrix) 01/19/2022 ,05/16/2021 documented as of this encounter Social History Tobacco Use Types Packs/Day Years Used Date Smoking Tobacco: Some Days Cigarettes 0.5 48 Smokeless Tobacco: Never Comments:Working on quitting . Alcohol Use Standard Drinks/Week Comments No 0 (1 standard drink = 0.6 oz pure alcohol) hx alcoholism--quit around 2000 PHQ-2 Answer Date Recorded PHQ Adult Total Score 0 05/07/2024 Hunger Vital Sign Answer Date Recorded Within the past 12 months, y ou worried that your food would run out before you got the money to buy more. Sometimes true Within the past 12 months, t he food you bought just didn't last and you didn't have money to get more. Sometimes true 03/2024 Childcare Answer Date Recorded Do you feel overwhelmed with taking care of a child, family member or friend? No 10/16/2023 Does your family need help f inding childcare? (Household - for ages 0-17 years) Not on file 10/16/2023 Clothing Answer Date Recorded Have you been unable to get clothing when it was really needed? No 10/16/2023 Is your family able to get c lothes or diapers when needed? (Household - for ages 0-17 years) Not on file 10/16/2023 Personal Safety Answer Date Recorded Do you feel unsafe or have concerns for your saf ety? No 10/16/2023 Do you have concerns for you r family's safety? (Household - for ages 0-17 years) Not on file 10/16/2023 Utilities Answer Date Recorded Do you have trouble paying y our heating, water, or electric bill? Yes 10/16/2023 Is your family able to pay t he heat, water, or electric bill? (Household - for ages 0-17 years) Not on file 10/16/2023 Does your family have access to good internet? (Household - for ages 0-17 years) Not on file 10/16/2023 Employment Status Answer Date Recorded Are you unemployed or without regular income? No 10/16/2023 Does the household have a re gular source of income? (Household - for ages 0-17 years) Not on file 10/16/2023 Social Connections Answer Date Recorded How often do you feel lonely or isolated from those around you? Sometimes 10/16/2023 Financial Resource Strain Answer Date R ecorded Do you have any trouble payi ng for your medications, or do you think you might in the future? Yes 10/16/2023 Does your family have troubl e paying for medicine? (Household - for ages 0-17 years) Not on file 10/16/2023 Transportation Needs Answer Date Record ed READ ONLY Do you have troubl e getting a ride to medical visits or work? Sometimes True 10/16/2023 Does your family have a hard time getting a ride to doctors visits? (Household - for ages 0-17 years) Not on file 10/16/2023 Has lack of transportation k ept you from medical appointments, meetings, work, or from getting things needed for daily living? Check all that apply. (Adult - for ages 18 years and over) Not on file 10/16/2023 Do you (or your family) have trouble finding or paying for a ride (transportation)? (Household - for ages 0-17 years) Not on file 10/16/2023 Housing Stability Answer Date Recorded Do you currently live in a s helter or have no steady place to sleep at night? No 10/16/2023 READ ONLY Do you think you a re at risk of becoming homeless? No 10/16/2023 Does your family worry about paying for your home or becoming homeless? (Household - for ages 0-17 years) Not on file 0 10/16/2023 Are you homeless or worried that you might be in the future? (Adult - for ages 18 years and over) Not on file Are you (or your family) donnie eless or worried that you might be in the future? (Household - for ages 0-17 years) Not on file Food Insecurity Answer Date Recorded Do you need food for this week? No 10/16/2023 Are you able to get enough f ood for your family? (Household - for ages 0-17 years) Not on file 10/16/2023 Does your family need food t his week? (Household - for ages 0-17 years) Not on file 10/16/2023 Do you always have enough fo od for your family? (Household - for ages 0-17 years) Not on file 10/16/2023 Sex and Gender Information Value Date Recorded Sex Assigned at Male 12/28/2022 8:54 PM EDT Legal Sex Male 7:10 AM EST Gender Identity Male 04/17/2023 2:01 PM EDT Sexual Orientation Lynne 04/17/2023 2: 01 PM EDT Occupation Industry Job Start Date Job End Date [employer] work Not on file Not on file Not on file documented as of this encounter Last Filed Vital Signs Vital Sign Reading Time Taken Comments Blood Pressure 154/88 05/28/2024 3:05 PM EST Pulse 102 05/28/2024 3:05 PM EST Temperature - - Respiratory Rate 20 05/28/2024 3:05 PM EST Oxygen Saturation 98% 05/28/2024 3:05 PM EST Inhaled Oxygen Concentration - - Weight - - Height 175.3 cm (5' 9") 05/28/2024 3:05 PM EST Body Mass Index - - documented in this encounter Functional Status * Are you deaf or do you have serious difficulty hearing? Answer Date of Assessment Author No 04/20/2023 2:13 AM EDT Jil Sebastian LPN * Are you blind or do you have serious difficulty seeing, even when wearing glasses? Answer Date of Assessment Author No 04/20/2023 2:13 AM EDT Jil Sebastian LPN * Do you have serious difficulty walking or climbing stairs? (5 years old or older) Answer Date of Assessment Author No 04/20/2023 3:19 PM EDT Monster Chandler RN * Do you have difficulty dressing or bathing? (5 years old or older) Answer Date of Assessment Author No 04/20/2023 2:13 AM iJl Ulrich LPN * Because of a physical, mental, or emotional condition, do you have difficulty doing errands alone such as visiting a doctors office or shopping? (15 years old or older) Answer Date of Assessment Author No 04/20/2023 2:13 AM Jil Ulrich LPN documented as of this encounter Mental Status * Because of a physical, mental, or emotional condition, do you have serious difficulty concentrating, remembering, or making decisions? (5 years old or older) Answer Entry Date Author No 04/20/2023 2:13 AM Jil Ulrich LPN documented in this encounter Progress Notes * Enid Lewis CRNP - 05/28/2024 3:08 PM EST Images from the original note were not included. ER Follow up Family Medicine Visit CC: Chief Complaint Patient presents with Hospital Follow-Up Patient presents in office today for a hospital follow-up visit, patient is still having pain in the left side (keeping up at night, pain rate 10/10). History of Present Illness: Derek Tristan is a 64 year old male presenting for ER follow up. He reports that he was seen in ED on 05/26/2024. He walked into work and collapsed. He was seen for left hip, leg and foot. There are no records available for review. The doctor said it was pulled muscle.Denies fever or chills or swelling. The pain feels like burning and sharp pain. Feels low back hurts at time. Some tingling in left foot has been present for months. Drinks 2 drinks per week- 12 OZ PER WEEK. Last A1C > 14.0 Blood sugar was 425. lUMBAR SPINE HAS DEGENERATIVE ARTHRITIS. 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 Vaping Use Vaping status: Never Used Substance and Sexual Activity Alcohol use: No Comment: hx alcoholism--quit around 2000 Drug use: No Sexual activity: Not on file Other Topics Concern Not on file Social History Narrative No pets No mold Electric heat Window air conditioning Social Needs Financial Resource Strain: High Risk (10/16/2023) Financial Resource Strain Do you have any trouble paying for your medications, or do you think you might in the future? (Adult - for ages 18 years and over): Yes Does your family have trouble paying for medicine? (Household - for ages 0-17 years): Not on file Food Insecurity: No Food Insecurity (10/16/2023) Food Insecurity Do you need food for this week? (Adult - for ages 18 years and over): No Are you able to get enough food for your family? (Household - for ages 0-17 years): Not on file Does your family need food this week? (Household - for ages 0-17 years): Not on file Do you always have enough food for your family? (Household - for ages 0-17 years): Not on file Recent Concern: Food Insecurity - Food Insecurity Present (10/16/2023) Hunger Vital Sign Worried About Running Out of Food in the Last Year: Sometimes true Ran Out of Food in the Last Year: Sometimes true Transportation Needs: Unmet Transportation Needs (10/16/2023) Transportation Needs Do you have trouble getting a ride to medical visits or work? (Adult - for ages 18 years and over):Sometimes True Does your family have a hard time getting a ride to doctors visits? (Household - for ages 0-17 years): Not on file Has lack of transportation kept you from medical appointments, meetings, work, or from getting things needed for daily living? Check all that apply. (Adult - for ages 18 years and over): Not on file Do you (or your family) have trouble finding or paying for a ride (transportation)? (Household - for ages 0-17 years): Not on file Social Connections: Socially Integrated (10/16/2023) Social Connections How often do you feel lonely or isolated from those around you? (Adult - for ages 18 years and over): Sometimes Housing Stability: Low Risk (10/16/2023) Housing Stability Do you currently live in a mcfp or have no steady place to sleep at night? (Adult - for ages 18 years and over): No Do you think you are at risk of becoming homeless? (Adult - for ages 18 years and over): No Does your family worry about paying for your home or becoming homeless? (Household - for ages 0-17 years): Not on file Are you homeless or worried that you might be in the future? (Adult - for ages 18 years and over): Not on file Are you (or your family) homeless or worried that you might be in the future? (Household - for ages0-17 years): Not on file PMH: Past Medical History: Diagnosis Date Aortic stenosis, moderate 2022 See Jul 2022 cardiology note Gout 05/04/2012 hay fever 10/02/2002 HTN, goal below 140/90 02/22/1998 Personal history of alcoholism (HCC) 05/04/2012 Past Surgical History: Procedure Laterality Date CARPAL TUNNEL SURGERY Left 11/11/2018 NEUROPLASTY MEDIAN NERVE AT CARPAL TUNNEL performed by Milly Flores DO at OR [facility] COLONOSCOPY, DIAGNOSTIC (RECTUM) 06/12/2016 normal, repeat 10 yrs/COLONOSCOPY FLEXIBLE PROXIMAL DIAGNOSTIC performed by Zach Davison MD at ENDOSCOPY [facility] CORONARY ANGIOGRAPHY W/RIGHT+LEFT CATH Right 04/20/2023 CORONARY ANGIOGRAPHY W/RIGHT+LEFT CATH performed by Brayan Velázquez MD at [facility]AC [facility]S [facility] EGD, W/ENDOSCOPIC US N/A 07/04/2016 ESOPHAGOGASTRODUODENOSCOPY (EGD), FLEXIBLE, TRANSORAL, ENDOSCOPIC ULTRASOUND performed by Emerald Naylor MD at ENDOSCOPY [facility] EGD, W/ENDOSCOPIC US N/A 01/05/2023 LA grade A reflux esophagitis/gastritis/biopsies show mild inflammatory changes stomach and esophagus/EUS/EGD/MN REPLACEMENT AORTIC VALVE, BYPASS WITH PROSTHETIC VALVE N/A 04/23/2023 WITH REPLACEMENT AORTIC VALVE performed by Zbigniew Linder MD at OR [facility] US ENDOSCOPIC 11/29/2012 inlet patch found in esophagus f/u in clinic in 4 months Current Outpatient Medications Medication Sig Dispense Refill Aspirin 81 MG Oral Tablet Chewable Chew 1 Tablet by mouth in the morning with food 72 Tablet 4 metFORMIN HCl ER 500 MG Oral Tablet Extended Release 24 Hour (Glucophage XR) Take 1 Tablet by mouth2 times a day with morning and evening meals. 180 Tablet 0 NovoLIN 70/30 (70-30) 100 UNIT/ML Subcutaneous Suspension (Insulin NPH Isophane & Regular) Inject 33 Units under the skin 2 times a day with morning and evening meals. 60 mL 0 Omeprazole 20 MG Oral Capsule Delayed Release (PriLOSEC) Take 1 Capsule by mouth in the morning. 1 hour before the first meal of the day.. 90 Capsule 1 Potassium Chloride ER 10 MEQ Oral Tablet Extended Release Take 2 Tablets by mouth in the morning. 30 Tablet 0 Metoprolol Succinate ER 25 MG Oral Tablet Extended Release 24 Hour (toPROL XL) Take 1 Tablet by mouth in the morning. 90 Tablet 3 Dicyclomine HCl 10 MG Oral Capsule (Bentyl) One tab up to 3x/day if needed for lower abdomen pain 90 Capsule 2 Acetaminophen 500 MG Oral Tablet (Tylenol) Take 2 Tablets by mouth every 4 hours as needed. CoCollageUCH ULTRA BLUE STRP USE UP TO 4 TIMES A DAY DIRECTED. 100 Strip 5 CoCollageUCH DELICA LANCETS 33G MISC TEST SUGAR DAILY 100 Each 5 Calcium Carbonate Antacid 500 MG Oral Tablet Chewable Take 1 Tablet by mouth as needed. As needed MULTIVITAMINS PO TABS Take 1 Tablet by mouth every morning. Ketorolac Tromethamine 10 MG Oral Tablet (Toradol) Take 1 Tablet by mouth. (Patient not taking: Reported on 05/28/2024) Rosuvastatin Calcium 40 MG Oral Tablet (Crestor) Take 1 Tablet by mouth in the morning. (Patient not taking: Reported on 05/28/2024) 90 Tablet 0 Furosemide 40 MG Oral Tablet (Lasix) Take 1 Tablet by mouth in the morning. (Patient not taking: Reported on 05/28/2024) 30 Tablet 0 oxyCODONE HCl 5 MG Oral Tablet (Oxy IR) Take 1 Tablet by mouth every 4 hours as needed for Pain, Moderate. (Patient not taking: Reported on 05/28/2024) 30 Tablet 0 Clopidogrel Bisulfate 75 MG Oral Tablet (pLAVix) Take 1 Tablet (75 mg) by mouth in the morning. In the morning.. 30 Tablet 11 Cyclobenzaprine HCl 5 MG Oral Tablet (Flexeril) Take by mouth 1 Tablet 2 times a day as needed for Muscle spasms. (Patient not taking: Reported on 05/28/2024) 12 Tablet 0 No current facility-administered medications for this visit. Review of patient's allergies indicates: Allergen Reactions Erythromycin Stomach pain Most Recent Immunizations Administered Date(s) Administered COVID-19 mRNA, LNP-s, No Preserve, 2-Dose Series (Moderna) 11/25/2020 Diptheria/Tetanus (Adult) 08/06/1992 Hepatitis B, 20+ yrs 05/19/2015 PPD 05/06/2014 Pneumococcal Conjugate Vaccine, 20-valent ([id number]) 01/19/2022 Pneumococcal Polysaccharide PPV23 (Pneumovax) 08/22/2013 Seasonal Influenza Vac., MDV, IM, 0.5 mL (Fluzone) 05/05/2014 Seasonal Influenza Virus Vaccine, Unspecified Formulation 05/25/1998 Seasonal Influenza, PF, 6 M & above, IM , (FluLaval or Fluzone) 05/09/2023 Seasonal Influenza, Quadrivalent, No Preserve, IM 06/04/2018 Seasonal Influenza, Quadrivalent, No Preserve, Mdck 06/21/2019 Seasonal Influenza, Trivalent, (IIV3), PF, (Fluzone) 05/07/2024 TD - Tetanus/Diptheria (ADULT) 08/02/2006 TDAP (age 10 and older)(Boostrix) 03/07/2013 Zoster Vaccine Recombinant (Shingrix) 01/19/2022 Review of Systems: Review of Systems Constitutional: Negative for fever. Musculoskeletal: Positive for arthralgias and gait problem. Physical Exam: BP 154/88 | Pulse 102 | Resp 20 | Ht 5' 9" (1.753 m) | SpO2 98% | BMI 20.13 kg/m | BSA 1.73 m Physical Exam HENT: Head: Normocephalic. Cardiovascular: Rate and Rhythm: Normal rate and regular rhythm. Pulmonary: Breath sounds: Decreased breath sounds present. Musculoskeletal: Left hip: Tenderness present. Decreased range of motion. Decreased strength. Left foot: Normal range of motion. Legs: Feet: Comments: Unable to stand without severe pain Feet: Left foot: Skin integrity: Skin integrity normal. No ulcer, blister, skin breakdown or erythema. Comments: PAIN Neurological: General: No focal deficit present. Mental Status: He is alert and oriented to person, place, and time. Psychiatric: Mood and Affect: Mood normal. Behavior: Behavior normal. Thought Content: Thought content normal. Judgment: Judgment normal. Assessment and Plan: 1. Hip pain, left (Primary) SEVERE PAIN UNABLE TO BEAR WEIGHT PRESENT SINCE SUNDAY SEEN IN ed BUT NO RECORDS - XR HIP UNILAT 2-3 VIEWS INCLUDING AP PELVIS 2. Left foot pain Feels like burning C/w diabetic neuropathy Add gabapentin but patient states he can not purchase 3. Uncontrolled type 2 diabetes mellitus with hyperglycemia (HCC) A1C > 14 4. Gouty arthropathy Hx of gout- no swelling or redness 5. Diabetic peripheral neuropathy (HCC) SUSPECTED I have advised the patient to call our office incase of any worsening or new symptoms. I spent a total of 30-39 minutes (exact time 30 mins) on the date of service in preparation, delivery, and documentation of the care provided to Derek Tristan excluding any time spent in the performance of separately billed services. Moises, LALI, GREGORIA [facility] documented in this encounter Nursing Notes * Cyndi Gonzalez MED ASSIST - 05/28/2024 3:01 PM EST The patient has been properly identified by confirmation of name and date of . Chief Complaint Patient presents with Hospital Follow-Up Patient presents in office today for a hospital follow-up visit, patient is still having pain in the left side (keeping up at night, pain rate 10/10). documented in this encounter Plan of Treatment Upcoming Encounters Date Type Department Care Team (Late st Contact Info) Description 05/28/2024 4:00 PM EST Imaging Radiology [facility] [address] [facility] [place] [address] Arrived 05/29/2024 9:20 AM EST Office Visit Pharmacy, [address] [place] [address] [facility] [address] [place] [address] Health Maintenance Due Date Last Done Comments HIV Screening 1977 Alpha-1 Antitrypsin 01/02/1980 Cologuard 2007 Fecal Occult Blood Test 2007 Sigmoidoscopy 2007 B-12 12/12/2022 12/12/2021, 08/10, 11/12/2017 DISCUSS TOBACCO CESSATION (REFER TO SMARTSET #6940) 12/22/2022 12/22/2021 DTap/Tdap Vaccines (2 - Td or Tdap) 03/07/2023 03/07/2013, 08/02/2006, 06/15/2004, Additional history exists COVID-19 Vaccine ( season) 2024 11/25/2020, 10/28/2020 Albumin/Creatinine Ratio 10/17/2024 024, 12/12/2021, 12/14/2016, Additional history exists Diabetic Eye Exam 10/17/2024 10/18/2023, , 06/14/2017, Additional history exists Diabetic Foot Exam 10/17/2024 10/18/2023, 0 01/19/2022, 03/01/2020, Additional history exists GFR 10/17/2024 10/18/2023, 04/09, 04/26/2023, Additional history exists HbA1c 11/05/2024 05/07/2024, 10/07, 04/20/2023, Additional history exists Depression Screening 05/07/2025 05/07/2024 O2 ASSESSMENT COMPLETED IN PAST YEAR FOR COPD 05/07/2025 05/07/2024 Colonoscopy 06/12/2026 06/12/2016, 06/12/2016 Colorectal Cancer Screening 06/12/2026 Hepatitis B Vaccine Completed 05/19/2015, 11/19/2014, 05/06/2014 Lung Cancer Screening Completed 01/04/2022 , 06/13/2021, 11/19/2017, Additional history exists Pneumococcal Vaccine: Pediatrics (0 to 5 Years) and At-Risk Patients (6 to 64 Years) Completed 01/19/2022, 08/22/2013 Zoster Vaccines Completed 01/19/2022, 05/16/2021 Influenza Vaccine (FLU shot) Completed , 05/09/2023, 04/04/2022, Additional history exists HPV (Gardasil) Vaccine Aged Out No lo nger eligible based on patient's age to complete this topic MENINGOCOCCAL (MENACTRA/MENVEO) Aged Out No longer eligible based on patient's age to complete this topic documented as of this encounter Medical Devices Implanted Type Area Management Advisor Device Identifier Shelf Expiration Date Model / Serial / Lot Cath Thermodilution 6fr - [id number] Implanted:Qty: 1 on 04/20/2023 at [facility] [employer] [id number] 11/13/2024 [id number] / / [id number] Valve Aortic Mech 21mm - [id number] - [id number] Implanted:Qty: 1 on 04/23/2023 by Zbigniew Linder MD at OR [facility] N/A: Heart [employer] [id number] 09/04/2028 ONXACE-2 [id number] / [id number] Suture Steel 6 B&S19 M654g - [id number] Implanted:Qty: 8 on 04/23/2023 by Zbigniew Linder MD at OR [facility] N/A: Sternum JNJ : [employer] 12/07/2027 [id number] / / [id number] documented as of this encounter Procedures Procedure Name Priority Date/Time Associated Diagnosis Comments XR HIP UNILAT 2-3 VIEWS INCLUDING AP PELVIS STAT 05/28/2024 3:40 PM EST Hip pain, left documented in this encounter Results * XR HIP UNILAT 2-3 VIEWS INCLUDING AP PELVIS (05/28/2024 3:40 PM EST) Anatomical Region Laterality Modality Lower Extremity, Hip, Pelvis Dig ital Radiography 05/28/2024 3:50 PM EST Impressions 05/28/2024 3:48 PM EST IMPRESSION Degenerative findings as above. Narrative 05/28/2024 3:48 PM EST EXAM XR HIP UNILAT 2-3 VIEWS INCLUDING AP PELVIS-LT 05/28/2024 3:40 pm HISTORY Provided clinical history: "left hip pain" TECHNIQUE Three views of the pelvis and left hip were obtained. COMPARISON Radiographs dated October 18, 2023. FINDINGS Mild osteoarthritis of both hips. No fracture or bone lesion. Multilevel intervertebral disc degeneration in the visualized lumbar spine. Procedure Note Shiv Dover MD - 05/28/2024 EXAM XR HIP UNILAT 2-3 VIEWS INCLUDING AP PELVIS-LT 05/28/2024 3:40 pm HISTORY Provided clinical history: "left hip pain" TECHNIQUE Three views of the pelvis and left hip were obtained. COMPARISON Radiographs dated October 18, 2023. FINDINGS Mild osteoarthritis of both hips. No fracture or bone lesion. Multilevelintervertebral disc degeneration in the visualized lumbar spine. IMPRESSION IMPRESSION Degenerative findings as above. us [facility] ([facility] ) Final Result documented in this encounter Visit Diagnoses Diagnosis Hip pain, left- Primary Pain in joint, pelvic region and thigh Left foot pain Pain in limb Uncontrolled type 2 diabetes mellitus with hyperglycemia (HCC) Gouty arthropathy Gouty arthropathy, unspecified Diabetic peripheral neuropathy (HCC) Type II or unspecified type diabetes mellitus with neurological manifestations, not stated as uncontrolled documented in this encounter Advance Directives * Full Code (Latest Code Status on File) Date Activated Date Inactivated Comments 04/23/2023 6:22 PM 04/27/2023 2:57 PM This order reflects the patients wishes and were consensually agreed upon. Question Answer Comments Discussion of Advance Direct roseanne occurred with: Not Discussed due to patient's condition * Full Code Date Activated Date Inactivated Comments 04/20/2023 1:49 AM 04/23/2023 6:21 PM This order reflects the patients wishes and were consensually agreed upon. Question Answer Comments Discussion of Advance Directives occurred with: Patient * Full Code Date Activated Date Inactivated Comments 11/11/2018 9:24 AM 11/11/2018 2:24 PM This order ref lects the patients wishes and were consensually agreed upon. 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
[2024-05-30 05:58] LABS: Basophils # (auto) 0.02 K/uL (0.00-0.20); Basophils % (auto) 0.3 %; Eosinophils # (auto) 0.06 K/uL (0.00-0.50); Eosinophils % (auto) 0.8 %; Hematocrit (blood only) 43.2 % (42.0-52.0); Hemoglobin 14.8 g/dl (14.0-18.0); Immature Granulocytes # (auto) 0.02 K/uL (0.01-0.20); Immature Granulocytes % (auto) 0.3 %; Lymphocytes # (auto) 2.07 K/uL (1.20-3.40); Lymphocytes % (auto) 28.2 %; Mean Corpuscular Hemoglobin 30.5 pg (25.0-34.0); Mean Corpuscular Hgb Conc 34.3 g/dL (32.0-36.0); Mean Corpuscular Volume 89.1 fL (80.0-100.0); Mean Platelet Volume 10.5 fL (9.4-12.4); Monocytes # (auto) 0.53 K/uL (0.11-0.59); Monocytes % (auto) 7.2 %; Neutrophils # (auto) 4.64 K/uL (1.40-6.50); Neutrophils % (auto) 63.2 %; Platelet Count 178 K/uL (130-400); RDW Coefficient of Variation 14.5 % (11.5-14.5); RDW Standard Deviation 46.7 fL (36.4-46.3); Red Blood Count 4.85 M/uL (4.70-6.10); White Blood Count 7.34 K/ul (4.8-10.8)
[2024-05-30 06:16] LABS: BUN Creatinine Ratio 20.6 (10-20); Calcium 8.5 mg/dl (8.6-10.3); Creatinine Clr Calc Pharmacy 66.1 ml/min; Potassium 4.5 mmol/L (3.5-5.1)
[2024-05-30 06:25] LABS: ANTI-Xa, UFH(UnfractionatedHep 0.55 IU/ml (0.3-0.7); INR 1.1 (0.9-1.1); Prothrombin Time 11.5 Seconds (9.0-12.0)
[2024-05-30] MEDS: LANTUS PER UNIT CHARGE SQ SCH (08:41)
--- NOTE | 2024-05-30 08:42 | Hospitalist Progress Note ---
Date of Service May 30, 2024 Assessment & Plan (1) Acute pain of left hip: Plan: 64 year-old male with past medical history significant for type 2 diabetes, hyperlipidemia, interstitial lung disease, COPD, pulmonary nodules, allergic rhinitis, hypertension, aortic valve stenosis status post mechanical valve replacement, history of TIA, valvular insufficiency, GERD, gout arthropathy, personal history of alcoholism, history of pancreatitis, comes because of ongoing left hip pain. Patient states the pain started last Sunday. He was in the ER was prescribed pain medications and also saw PCP had x-ray done which showed osteoarthritis. The pain is not getting better so he came back to ER today. Patient states pain in the left hip region radiating down to left calf and foot. Having ambulatory dysfunction because of pain. In his ER also found to have sugars in the 500s. Patient says for last 2 to 3 months not taking his Coumadin after he ran out of his medications. Acute pain of left hip Pain noted to have been radiating down his left calf and foot Pelvic CT on admission revealed mild osteoarthritis of both hip joints. Lumbar spine CT revealed mild spinal stenosis and posterior disc bulge and mild ligamentum flavum hypertrophy He received a doppler US that was negative for DVT Pain control with Oxycodone and Prednisone 20 mg daily that was started on 05/30 Discontinued IV Dilaudid today Ortho consult placed and he was evaluated on 05/29; appreciate their recommendations; recommend being seen by orthospine as outpatient which will need to be arranged through PCP @ f/u History of diabetes Hyperglycemia Originally, patient presents with elevated glucose of 552; he takes Novolin 70/30 at home and reports 'compliance' He did require an insulin gtt which has been stopped - FSBS ACHS improved; most recent 162 05/29: A1C is 13.8 Metformin has been on hold. health educator was able to see the patient on 05/29. Patient does admit to i ntermittently missing some of his insulin doses and admits to "cheating by stress eating and not paying attention to his carbohydrate consumption" Lantus and sliding scale in place and being closely followed by glycemic pharmacy I called his two pharmacies to understand cost for his medications: * [facility] [phone]. Novolin 70/30 60mL (6 boxes/90 day supply) filled 12/02/23, not picked up. Cost $308. No insurance with them on file. A note indicates they switched pharmacies. * [facility] [phone]. Some insurance on file; several available but not picked up. Not picked up Warfarin since 08/2023, New Warfarin Rx: $10. 11/2022: Novolin 70/30 has Neocleus medicaid did not pay for cost. 11/2023 on hold/. * His meds have never been filled under [facility] at either location, but she thinks that if submitted through this insurance or adding a long acing, would likely cost < $40 History of mechanical aortic valve replacement Not taking Coumadin for last 2 to 3 months and reports this is due to cost. Had an appt scheduled for 05/30 with anticoagulation clinic to restart Coumadin As per epic in the past he was taking Coumadin 12.5 mg every Sunday and Sunday and 10 mg all other days 05/30 INR 1.1; with mechanical AVR goal range will be 1.5-2 per Cardiology outpatient note Will start Coumadin 10 mg daily for now and IV heparin bridge Hyperlipidemia Takes rosuvastatin; continue GERD Takes Omeprazole; continue History of COPD Seems stable Will place on inhaler as needed History of TIA On aspirin and statin and Coumadin; continue Disposition: DVT prophylaxis IV heparin until INR therapeutic Medical floor Code status: Full code I spent a total of 58 minutes coordinating, documenting, and providing care for this patient excluding time spent in the performance of separately billed services. All of the aforementioned completed while collaborating with the assigned attending physician for a full treatment plan. Please see their addendum for further details. Admission and Anticipated Discharge Date Admission Date: May 29, 2024 Supervising Physician Co-Signing Physician Notes Agree with plans as detailed by Juanita KINNEY Subjective Pt sitting in his hospital bed in no apparent distress He states that his pain is improving with the oral prednisone; point tenderness along sacral region Currently on Heparin and being bridged back to Coumadin. Pt denies REZA, dizziness, CP, SOB, N/V/D see below for A/P Review of Systems Review of Systems: Neuro: (-) Falls, trauma, slurred speech HEENT: (-) REZA, dizziness, dysphagia, visual or auditory changes CV: (-) CP, palpitations, swelling Resp: (-) SOB GI: (-) appetite changes, N/V/D, bowel changes : (-) urinary changes Skin: (-) rashes Musculoskeletal: (+) lower back pain Psych: (-) anxiety, depression Physical Exam Physical Exam: Neuro: AAOx4, PERRLA, no aphagia, memory changes, CNII-XII grossly intact HEENT: head normocephalic, moist mucus membranes CV: S1/S2, (-) M/G/R, (-) edema, cap refill < 3 seconds Resp: Lungs CTA in all adams. On RA GI: Abdomen S/NT/ND, Ax4 bowel sounds, (-) CVA tenderness Musculoskeletal: 5/5 B/L UE strength, 5/5 B/L LE strength. No gait disturbance; witnessed ambulated Skin: (-) rashes , (-) erythema. Psych: euthymic mood Results & Data Results & Data Vital Signs (Past 12 Hours) Vital Signs Temp Pulse Resp BP Pulse Ox O2 Del Method 05/30/24 07:03 36.8 C 82 16 148/76 H 97 Room Air 05/29/24 20:45 36.8 C 73 17 136/72 98 Room Air Laboratory Results Short CBC 05/29/24 05/30/24 Range/Units 11:22 05:31 WBC 6.05 7.34 (4.8-10.8) K/ul Hgb 14.6 14.8 (14.0-18.0) g/dl Hct 41.0 L 43.2 (42.0-52.0) % Plt Count 193 178 (130-400) K/uL BMP 05/30/24 05:31 Sodium 138 Potassium 4.5 Chloride 109 H Carbon Dioxide 24 BUN 22 Creatinine 1.07 Glucose 326 H* Calcium 8.5 L
[2024-05-30] MEDS: NovoLIN-N (NPH) PER UNIT CHARGE SQ ONE (08:43)
--- NOTE | 2024-05-30 09:45 | Pharmacy Report ---
Pharmacy Glycemic Short Note 2 - Date of Service May 30, 2024 - Glycemic Short BSG Results (Last 24 hours): 05/29/24 05/29/24 05/29/24 10:08 11:02 11:38 Glucose POC Glucose 230 H 175 H 170 H 05/29/24 05/29/24 05/29/24 12:08 12:59 13:58 Glucose POC Glucose 190 H 215 H 109 H 05/29/24 05/29/24 05/29/24 14:16 14:33 15:10 Glucose POC Glucose 101 H 90 106 H 05/29/24 05/29/24 05/30/24 16:37 20:43 05:31 Glucose 326 H* POC Glucose 162 H 135 H 05/30/24 07:31 Glucose POC Glucose 294 H OUTPATIENT ANTIDIABETIC REGIMEN: * metformin 500mg PO BID * HbA1c 13.8% (05/29/24), down from 15% (05/07/24) ASSESSMENT: 05/29 * Derek received 54 units of insulin yesterday (20 units basal, 13 units from insulin drip) * Drip transition yesterday successful, BSGs well controlled last night * Unfortunately prednisone was started yesterday with no additional coverage added so fasting BSG significantly above goal range this AM. Will trial 0.2 units/kg of insulin NPH with prednisone to cover steroid induced hyperglycemia. He also continues on a heparin drip (mixed in dextrose) while briding with warfarin. Will continue a scale at bedtime if still demonstrates basal needs then. * No changes to Novolog at this time, may need tightened, but hesitant to adjust with addition of prandial coverage from [facility]. 05/28 * Derek is a 64 YOM admitted with hip pain and a history of T2DM. Admission labs showed profound hyperglycemia, not appearing to be in DKA/HHS. Pharmacy has been consulted for glycemic management while inpatient. Patient is previo usly known to the glycemic service. * The decision was made early this morning to begin and insulin drip early this morning after an unsuccessful IV bolus (0.1 units/kg). BSGs trended down nicely. * Discussed plan with tej Maya to transition to SQ insulin this AM. Plan for 6 hours of overlap with first dose of Lantus. Drip just discontinued for BSGs right below goal at 109. * Initiated insulin based on previously used parameters (Lantus at a weight based stress of 2, Novolog slightly tighter than a weight based stress of 3). Will add a basal scale at bedtime as well if BSGs re-elevated with discontinuation of drip. PLAN FOR INPATIENT GLYCEMIC CONTROL: * Hold outpatient oral diabetes medications * Basal insulin * Lantus 20 units SQ daily * Insulin NPH 15 units SQ daily with prednisone * Lantus 0-10 units SQ based on BSG (see eMAR for additional details) * Bolus insulin * NovoLog per scale ACHS or Q6hrs while NPO * Goal Range: Low 110 mg/dL - High 140 mg/dL * Correction Factor: 20 mg/dL/unit * Nutritional / Prandial insulin per carb ratio of 1 unit per 7 grams CHO consumed
[2024-05-31 06:45] LABS: Basophils # (auto) 0.02 K/uL (0.00-0.20); Basophils % (auto) 0.3 %; Eosinophils # (auto) 0.13 K/uL (0.00-0.50); Eosinophils % (auto) 1.9 %; Hematocrit (blood only) 43.8 % (42.0-52.0); Hemoglobin 15.4 g/dl (14.0-18.0); Immature Granulocytes # (auto) 0.03 K/uL (0.01-0.20); Immature Granulocytes % (auto) 0.4 %; Lymphocytes # (auto) 2.19 K/uL (1.20-3.40); Mean Corpuscular Hgb Conc 35.2 g/dL (32.0-36.0); Mean Corpuscular Volume 88.1 fL (80.0-100.0); Mean Platelet Volume 10.5 fL (9.4-12.4); Monocytes # (auto) 0.54 K/uL (0.11-0.59); Monocytes % (auto) 7.9 %; Neutrophils # (auto) 3.94 K/uL (1.40-6.50); Neutrophils % (auto) 57.5 %; Platelet Count 188 K/uL (130-400); RDW Coefficient of Variation 14.2 % (11.5-14.5); RDW Standard Deviation 45.3 fL (36.4-46.3); Red Blood Count 4.97 M/uL (4.70-6.10); White Blood Count 6.85 K/ul (4.8-10.8)
[2024-05-31 07:29] LABS: ANTI-Xa, UFH(UnfractionatedHep 0.54 IU/ml (0.3-0.7); INR 1.7 (0.9-1.1); Prothrombin Time 17.2 Seconds (9.0-12.0)
[2024-05-31] MEDS: NovoLIN-N (NPH) PER UNIT CHARGE SQ ONE (08:20)
[2024-05-31] MEDS: LANTUS PER UNIT CHARGE SQ SCH (08:20)
--- NOTE | 2024-05-31 09:29 | Hospitalist Progress Note ---
Date of Service May 31, 2024 Assessment & Plan (1) Acute pain of left hip: Plan Derek Tristan is a 64y/o M with PMHx significant for type 2 diabetes, hyperlipidemia, interstitial lung disease/COPD, pulmonary nodules, allergic rhinitis, hypertension, aortic valve stenosis s/p mechanical valve replacement, history of TIA, valvular insufficiency, GERD, gout arthropathy, personal history of alcoholism and history of pancreatitis who presented to the ED on 05/29/2024 secondary to ongoing left hip pain. Patient states the pain started last Sunday. He was in the ED and was prescribed pain medications without significant relief of the pain. Patient reports the pain radiates down to left calf and foot regions. He also saw his PCP who did a hip XR on 05/28/2024 which revealed mild osteoarthritis of both hips. He is now experiencing ambulatory dysfunction because of pain. In his ED, he was also found to have a BSG in the 500s. Patient says for last 2 to 3 months that he has not taking his warfarin due to lapse in health insurance coverage making the medication far to expense for him to pay out of pocket. Acute L Hip Pain: Pain noted to have been radiating down his left calf and foot. Pelvic CT on admission revealed mild osteoarthritis of both hip joints. Lumbar spine CT revealed mild spinal stenosis and posterior disc bulge and mild ligamentum flavum hypertrophy. He received a LLE doppler US that was negative for DVT. Pain is improving with PRN po oxycodone and oral prednisone course (which was started on 05/29). Ortho consult was placed and he was evaluated on 05/29 -> Recommended outpatient orthopedic spine evaluation, which can be arranged by his PCP. 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 He did require an insulin gtt which has since been stopped; he is now on a basal/bolus regimen with assistance from the glycemic pharmacy. Hgb A1c 13.8% this admission. parent educator was able to see the patient on 05/29. Patient does admit to intermittently missing some of his insulin doses and admits to "cheating by stress eating and not paying attention to his carbohydrate consumption." Patient reports that his health insurance is now active! Per previous provider documentation regarding medication costs: * [facility] ([phone]) -> Novolin 70/30 60mL (6 boxes/90 day supply) filled 12/02/23, not picked up. Cost $308. No insurance with them on file. * [facility] on [address] ([phone]) -> Some insurance on file; several available but not picked up. Has not picked up Warfarin since 08/2023, new warfarin Rx: $10. * His meds have never been filled under [employer] at either location, but staff thinks that if submitted through this insurance or adding a long-acting, would likely cost <$40. PAF, History of Mechanical Aortic Valve Replacement: Not taking his Coumadin for last 2 to 3 months and reports this is due to cost. Had an appointment scheduled for 05/30 with [facility] to restart Coumadin. Patient unsure of previous warfarin dosing (? 2.5mg or 5mg/daily). As per [facility] documentation, in the past he was taking Coumadin 12.5mg every Sunday and Sunday and 10mg all other days. 05/31 -> INR 1.7 (goal INR range 1.5-2 per review of o/p cardiology documentation). Heparin gtt stopped. Will start warfarin 2.5mg/daily and repeat INR tomorrow AM. Other Chronic Medical Conditions: HLD/GERD, History of TIA --> Can continue home medications for these specific conditions. COPD stable, no home inhalers. DVT Prophylaxis: On warfarin, heparin gtt stopped as per above. Code Status: FULL CODE PCP: Anabel Ortiz MD Disposition: Admitted in Med/Surg - Possible discharge home tomorrow. Did place consults for PT/OT to evaluate him 2/2 ambulatory dysfunction on presentation. Will need work excuse. Patient seen in collaboration with Dr. Vergara. Please see addendum. I spent a total of 55 minutes coordinating, documenting, and providing care for this patient excluding time spent in the performance of separately billed services. This included personally reviewing all current laboratories and imaging studies, medical reconciliation, outpatient chart review and discussion with specialists. This chart was completed in part utilizing Speech Voice Recognition Software. Grammatical errors, random word insertions, pronoun errors, and incomplete sentences are an occasional consequence of this system due to software limitations, ambient noise, and hardware issues. Any formal questions or concerns about the content, text, or information contained within the body of this dictation should be directly addressed to the provider for clarification. Admission and Anticipated Discharge Date Admission Date: May 29, 2024 Supervising Physician Co-Signing Physician Notes INR is 2.7 above goal today Hold warfarin Patient will need Anticoagulation clinic set up, PCP set up and coordination with his pharm to ensure he gets all his meds on dc planned for tomorrow. Agree with plans as detailed by Aspen Hernandez PA-C Subjective Patient seen and examined at bedside this morning. Reports the pain in his left hip is improving significantly on the oral prednisone course. He is however reporting some pain in his left amador region this morning, which is very tender to palpation. He also complains of some mild left ankle pain and swelling. Denies recent falls or trauma that he recalls. Left lower extremity venous doppler ultrasound on 05/28 was negative for DVT. He has been on a heparin drip to bridge him back to his home oral warfarin therefore low suspicion for any acute DVT development since admission. He is agreeable with x-ray imaging to rule out any fractures. INR 1.7 this morning, goal of 1.5-2.0 per recent outpatient cardiology documentation. Heparin drip stopped this morning; will restart warfarin at 2.5mg daily with repeat INR in the morning. 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 However, he reports that he has been taking his insulin as prescribed prior to arrival. He mentions that his insurance with [employer] is now active. 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 He denies any shortness of breath or chest pain. He has been ambulating in his room and around the hallways. Review of Systems Review of Systems: At least ten systems reviewed and negative, except as noted in the subjective section. Physical Exam Physical Exam: General: WD/WN, NAD, sitting up in bed, very pleasant, conversing appropriately. A+Ox3, euthymic affect. HEENT: Normocephalic, atraumatic. Conjunctivae normal. External ear and nose normal, oropharynx normal. Respiratory: Normal respiratory effort, lungs clear to auscultation, no wheeze/rhonchi. No accessory muscle use. Cardiovascular: Regular rate, rhythm, normal peripheral pulses, no BLE edema. Vessels: No JVD. Abdomen/GI: Normal bowel sounds, soft, nondistended, nontender to palpation in all quadrants. Extremities/Musculoskeletal: No cyanosis/clubbing, extremities motor strength intact, no witnessed gait disturbance. Neurologic: No overt focal deficits, CN's II-XI not formally tested but appear grossly intact bilaterally. Skin: No rashes, normal color, warm/dry. Results & Data Results & Data Vital Signs (Past 12 Hours) Vital Signs Temp Pulse Resp BP Pulse Ox O2 Del Method 05/31/24 07:32 36.9 C 75 16 158/77 H 96 Room Air Laboratory Results Short CBC 05/31/24 Range/Units 06:07 WBC 6.85 (4.8-10.8) K/ul Hgb 15.4 (14.0-18.0) g/dl Hct 43.8 (42.0-52.0) % Plt Count 188 (130-400) K/uL Diagnostic Findings Tibia/Fibula X-Ray 05/31/24 09:55 XR tibia fibula LT 2V CLINICAL HISTORY: TTP of L amador region, r/o fracture COMPARISON: None FINDINGS: There are no fractures within the left tibia or fibula. No osseous lesions are identified. IMPRESSION: No fractures within the left tibia or fibula. ACT 112: Negative or not required by law. Electronically signed by: Cassius Perez M.D. 05/31/2024 12:00 PM Ankle X-Ray 05/31/24 10:17 XR ankle LT 2V CLINICAL HISTORY: Left ankle pain, r/o fracture COMPARISON: None FINDINGS: Alignment of the left ankle is anatomic. There is no acute fracture. Talar dome is intact. There is no osseous lesions. IMPRESSION: No fracture or dislocation within the left ankle. ACT 112: Negative or not required by law. Electronically signed by: Cassius Perez M.D. 05/31/2024 11:57 AM Foot X-Ray 05/31/24 10:17 XR foot LT 2V CLINICAL HISTORY: Left foot pain, r/o fracture COMPARISON: None FINDINGS: Alignment of the left foot is anatomic. Tarsometatarsal joints are intact. No acute fractures within the left foot are present. There are mild degenerative changes within several articulations of the forefoot. IMPRESSION: No fracture or dislocation within the left foot. ACT 112: Negative or not required by law. Electronically signed by: Cassius Perez M.D. 05/31/2024 12:02 PM
[2024-05-31] MEDS: INSULIN HUMAN NPH SC ONE (09:35)
--- NOTE | 2024-05-31 11:59 | XRay Report ---
XR ankle LT 2V CLINICAL HISTORY: Left ankle pain, r/o fracture COMPARISON: None FINDINGS: Alignment of the left ankle is anatomic. There is no acute fracture. Talar dome is intact. There is no osseous lesions. IMPRESSION: No fracture or dislocation within the left ankle. ACT 112: Negative or not required by law. Electronically signed by: Cassius Perez M.D. 05/31/2024 11:57 AM
--- NOTE | 2024-05-31 12:01 | XRay Report ---
XR tibia fibula LT 2V CLINICAL HISTORY: TTP of L amador region, r/o fracture COMPARISON: None FINDINGS: There are no fractures within the left tibia or fibula. No osseous lesions are identified. IMPRESSION: No fractures within the left tibia or fibula. ACT 112: Negative or not required by law. Electronically signed by: Cassius Perez M.D. 05/31/2024 12:00 PM
--- NOTE | 2024-05-31 12:03 | XRay Report ---
XR foot LT 2V CLINICAL HISTORY: Left foot pain, r/o fracture COMPARISON: None FINDINGS: Alignment of the left foot is anatomic. Tarsometatarsal joints are intact. No acute fractu res within the left foot are present. There are mild degenerative changes within several articulation s of the forefoot. IMPRESSION: No fracture or dislocation within the left foot. ACT 112: Negative or not required by law. Electronically signed by: Cassius Perez M.D. 05/31/2024 12:02 PM
--- NOTE | 2024-05-31 14:53 | Pharmacy Report ---
Pharmacy Glycemic Short Note 2 - Date of Service May 31, 2024 - Glycemic Short BSG Results (Last 24 hours): 05/30/24 05/30/24 05/31/24 16:25 20:26 07:26 POC Glucose 123 H 211 H 166 H 05/31/24 11:51 POC Glucose 231 H OUTPATIENT ANTIDIABETIC REGIMEN: * metformin 500mg PO BID * HbA1c 13.8% (05/29/24), down from 15% (05/07/24) ASSESSMENT: 05/31 * Received 74 units of insulin yesterday (25 units of basal, 34 units of prandial/correctional + 15 units of NPH for steroid coverage) * Continues on prednisone 20 mg daily, tightened carb ratio with slight reduction in NPH * Lunch BSG elevated from previous however patient also ate ~double the carbohydrates with breakfast. Continue with tightened novolog for now, reassess trend tomorrow 05/29 * Derek received 54 units of insulin yesterday (20 units basal, 13 units from insulin drip) * Drip transition yesterday successful, BSGs well controlled last night * Unfortunately prednisone was started yesterday with no additional coverage added so fasting BSG significantly above goal range this AM. Will trial 0.2 units/kg of insulin NPH with prednisone to cover steroid induced hyperglycemia. He also continues on a heparin drip (mixed in dextrose) while briding with warfarin. Will continue a scale at bedtime if still demonstrates basal needs then. * No changes to Novolog at this time, may need tightened, but hesitant to adjust with addition of prandial coverage from NPH. 05/28 * Derek is a 64 YOM admitted with hip pain and a history of T2DM. Admission labs showed profound hyperglycemia, not appearing to be in DKA/HHS. Pharmacy has been consulted for glycemic management while inpatient. Patient is previously known to the glycemic service. * The decision was made early this morning to begin and insulin drip early this morning after an unsuccessful IV bolus (0.1 units/kg). BSGs trended down nicely. * Discussed plan with tej Maya to transition to SQ insulin this AM. Plan for 6 hours of overlap with first dose of Lantus. Drip just discontinued for BSGs right below goal at 109. * Initiated insulin based on previously used parameters (Lantus at a weight based stress of 2, Novolog slightly tighter than a weight based stress of 3). Will add a basal scale at bedtime as well if BSGs re-elevated with discontinuation of drip. PLAN FOR INPATIENT GLYCEMIC CONTROL: * Hold outpatient oral diabetes medications * Basal insulin * Lantus 25 units SQ daily * Insulin NPH 10 units SQ daily with prednisone * Lantus 0-10 units SQ based on BSG (see eMAR for additional details) * Bolus insulin * NovoLog per scale ACHS or Q6hrs while NPO * Goal Range: Low 110 mg/dL - High 140 mg/dL * Correction Factor: 20 mg/dL/unit * Nutritional / Prandial insulin per carb ratio of 1 unit per 6 grams CHO co nsumed
[2024-06-01 06:46] LABS: ANTI-Xa, UFH(UnfractionatedHep < 0.10 IU/ml (0.3-0.7); INR 2.7 (0.9-1.1); Prothrombin Time 26.6 Seconds (9.0-12.0)
[2024-06-01 06:52] LABS: BUN Creatinine Ratio 22.6 (10-20); Creatinine Clr Calc Pharmacy 66.7 ml/min; Phosphorus 4.2 mg/dl (2.5-4.9)
[2024-06-01 08:02] LABS: Hematocrit (blood only) 44.7 % (42.0-52.0); Hemoglobin 15.1 g/dl (14.0-18.0); Mean Corpuscular Hemoglobin 30.5 pg (25.0-34.0); Mean Corpuscular Hgb Conc 33.8 g/dL (32.0-36.0); Mean Corpuscular Volume 90.3 fL (80.0-100.0); Mean Platelet Volume 10.5 fL (9.4-12.4); Platelet Count 182 K/uL (130-400); RDW Coefficient of Variation 14.6 % (11.5-14.5); RDW Standard Deviation 48.1 fL (36.4-46.3); Red Blood Count 4.95 M/uL (4.70-6.10); White Blood Count 6.85 K/ul (4.8-10.8)
[2024-06-01] MEDS ORDERED: INSULIN HUMAN NPH SC ONE (09:00)
--- NOTE | 2024-06-01 14:06 | Pharmacy Report ---
Pharmacy Glycemic Short Note 2 - Date of Service June 01, 2024 - Glycemic Short BSG Results (Last 24 hours): 05/31/24 05/31/24 06/01/24 16:20 20:52 05:45 Glucose 121 H POC Glucose 94 147 H 06/01/24 06/01/24 07:22 11:32 Glucose POC Glucose 127 H 242 H OUTPATIENT ANTIDIABETIC REGIMEN: * metformin 500mg PO BID * HbA1c 13.8% (05/29/24), down from 15% (05/07/24) ASSESSMENT: 06/01 * Received 90 units of insulin yesterday (25 basal, 10 NPH + 55 units of prandial/correctional) * Fasting improved this AM- continue 25 units of lantus * Prandial BSGs yesterday improved with exception of lunch BSG. Held nph this morning and will monitor trend today. Continues on prendisone 20 mg daily 05/31 * Received 74 units of insulin yesterday (25 units of basal, 34 units of prandial/correctional + 15 units of NPH for steroid coverage) * Continues on prednisone 20 mg daily, tightened carb ratio with slight reduction in NPH * Lunch BSG elevated from previous however patient also ate ~double the car bohydrates with breakfast. Continue with tightened novolog for now, reassess trend tomorrow 05/29 * Derek received 54 units of insulin yesterday (20 units basal, 13 units from insulin drip) * Drip transition yesterday successful, BSGs well controlled last night * Unfortunately prednisone was started yesterday with no additional coverage added so fasting BSG significantly above goal range this AM. Will trial 0.2 units/kg of insulin NPH with prednisone to cover steroid induced hyperglycemia. He also continues on a heparin drip (mixed in dextrose) while briding with warfarin. Will continue a scale at bedtime if still demonstrates basal needs then. * No changes to Novolog at this time, may need tightened, but hesitant to adjust with addition of prandial coverage from NPH. 05/28 * Derek is a 64 YOM admitted with hip pain and a history of T2DM. Admission labs showed profound hyperglycemia, not appearing to be in DKA/HHS. Pharmacy has been consulted for glycemic management while inpatient. Patient is previously known to the glycemic service. * The decision was made early this morning to begin and insulin drip early this morning after an unsuccessful IV bolus (0.1 units/kg). BSGs trended down nicely. * Discussed plan with tej Maya to transition to SQ insulin this AM. Plan for 6 hours of overlap with first dose of Lantus. Drip just discontinued for BSGs right below goal at 109. * Initiated insulin based on previously used parameters (Lantus at a weight based stress of 2, Novolog slightly tighter than a weight based stress of 3). Will add a basal scale at bedtime as well if BSGs re-elevated with discontinuation of drip. PLAN FOR INPATIENT GLYCEMIC CONTROL: * Hold outpatient oral diabetes medications * Basal insulin * Lantus 25 units SQ daily * Bolus insulin * NovoLog per scale ACHS or Q6hrs while NPO * Goal Range: Low 110 mg/dL - High 140 mg/dL * Correction Factor: 20 mg/dL/unit * Nutritional / Prandial insulin per carb ratio of 1 unit per 6 grams CHO consumed
--- NOTE | 2024-06-01 14:09 | Hospitalist Progress Note ---
Date of Service June 01, 2024 Assessment & Plan (1) Acute pain of left hip: Plan Derek Tristan is a 64y/o M with PMHx significant for type 2 diabetes, hyperlipidemia, interstitial lung disease/COPD, pulmonary nodules, allergic rhinitis, hypertension, aortic valve stenosis s/p mechanical valve replacement, history of TIA, valvular insufficiency, GERD, gout arthropathy, personal history of alcoholism and history of pancreatitis who presented to the ED on 05/29/2024 secondary to ongoing left hip pain. Patient states the pain started last Sunday. He was in the ED and was prescribed pain medications without significant relief of the pain. Patient reports the pain radiates down to left calf and foot regions. He also saw his PCP who did a hip XR on 05/28/2024 which revealed mild osteoarthritis of both hips. He is now experiencing ambulatory dysfunction because of pain. In his ED, he was also found to have a BSG in the 500s. Patient says for last 2 to 3 months that he has not taking his warfarin due to lapse in health insurance coverage making the medication far to expense for him to pay out of pocket. Acute L Hip Pain: Pain noted to have been radiating down his left calf and foot. Pelvic CT on admission revealed mild osteoarthritis of both hip joints. Lumbar spine CT revealed mild spinal stenosis and posterior disc bulge and mild ligamentum flavum hypertrophy. He received a LLE doppler US that was negative for DVT. Pain is improving with PRN po oxycodone and oral prednisone course (which was started on 05/29 and will be completed tomorrow). Ortho consult was placed and he was evaluated on 05/29 -> Recommended outpatient orthopedic spine evaluation, which can be arranged by his PCP. Continue PT. Uncontrolled DM Type II, Acute Hyperglycemia: Originally, patient presented with an elevated glucose of 552; he takes Novolin 70/30 at home and reports 'compliance.' Was also taking metformin 500mg BID MANAGER CONTACT. He did require an insulin gtt which has since been stopped; he is now on a basal/bolus regimen with assistance from the glycemic pharmacy. Hgb A1c 13.8% this admission. zoology teacher evaluated the patient. Patient does admit to intermittently missing some of his insulin doses and admits to "cheating by stress eating and not paying attention to his carbohydrate consumption." Patient reports that his health insurance is now active. He would like to discuss getting a [id number] Jose for continuous glucose monitoring with his PCP. Per previous provider documentation regarding medication costs: * [facility] ([phone]) -> Novolin 70/30 60mL (6 boxes/90 day supply) filled 12/02/23, not picked up. Cost $308. No insurance with them on file. * [facility] ([phone]) -> Some insurance on file; several available but not picked up. Has not picked up Warfarin since 08/2023, new warfarin Rx: $10. * His meds have never been filled under [email or web address] at either location, but staff thinks that if submitted through this insurance or adding a long-acting, would likely cost <$40. [facility] today regarding medication costs: * Patient has 3 prescriptions available for pickup -> gabapentin ($2.31), cyclobenzaprine ($3.68) and ketorolac ($1.47). * Was also instructed that the patient's warfarin would cost $10/30-day supply. Insulin would be ~$45 per pen/~$25 per vial [[employer] brand] even w/o insurance. PAF, History of Mechanical Aortic Valve Replacement: Not taking his Coumadin for last 2 to 3 months and reports this is due to cost. Had an appointment scheduled for 05/30 with [facility] to restart Coumadin. Patient unsure of previous warfarin dosing (? 2.5mg or 5mg/daily). As per Epic documentation, in the past he was taking Coumadin 12.5mg every Sunday and Sunday and 10mg all other days. 05/31 -> INR 1.7 (goal INR range 1.5-2 per review of o/p cardiology documentation). Heparin gtt stopped. Will start warfarin 2.5mg/daily and repeat INR tomorrow AM. 06/01 -> INR 2.7, above goal INR as outlined above. Warfarin dose held today. Repeat INR in the AM. Will need close f/u with the anticoagulation clinic. Other Chronic Medical Conditions: HLD/GERD, History of TIA --> Can continue home medications for these specific conditions. COPD stable, no home inhalers. DVT Prophylaxis: Warfarin currently on hold as per above. Code Status: FULL CODE PCP: Anabel Ortiz MD Disposition: Admitted in Med/Surg - Likely discharge home tomorrow. Will need work excuse -> Plans to return back to work on Sunday (06/03). Patient seen in collaboration with Dr. Vergara. Please see addendum. I spent a total of 45 minutes coordinating, documenting, and providing care for this patient excluding time spent in the performance of separately billed services. This included personally reviewing all current laboratories and imaging studies, medical reconciliation, outpatient chart review and discussion with specialists. This chart was completed in part utilizing Speech Voice Recognition Software. Grammatical errors, random word insertions, pronoun errors, and incomplete sentences are an occasional consequence of this system due to software limitations, ambient noise, and hardware issues. Any formal questions or concerns about the content, text, or information contained within the body of this dictation should be directly addressed to the provider for clarification. Admission and Anticipated Discharge Date Admission Date: May 29, 2024 Subjective Patient seen and examined this morning. Reports his left hip still feels good this morning. He was having some left amador tenderness yesterday in addition to mild left ankle swelling/pain. X-ray imaging of the left lower leg yesterday was unremarkable - no fractures noted. He notes that the pain in both of these regions is improving. He has been ambulating around his room this morning without issue. Patient informed of supratherapeutic INR this morning and that we will be holding his warfarin for today with repeat INR tomorrow morning. He is interested in getting a [employer] Jose for continuous glucose monitoring. Review of Systems Review of Systems: At least ten systems reviewed and negative, except as noted in the subjective section. Physical Exam Physical Exam: General: WD/WN, NAD, sitting up in chair at bedside, very pleasant, conversing appropriately. A+Ox3, euthymic affect. HEENT: Normocephalic, atraumatic. Conjunctivae normal. External ear and nose normal, oropharynx normal. Respiratory: Normal respiratory effort, lungs clear to auscultation, no wheeze/rhonchi. No accessory muscle use. Cardiovascular: Regular rate, rhythm, normal peripheral pulses, no BLE edema. Vessels: No JVD. Abdomen/GI: Normal bowel sounds, soft, nondistended, nontender to palpation in all quadrants. Extremities/Musculoskeletal: No cyanosis/clubbing, mild tenderness to L amador palpation, no witnessed gait disturbance. Neurologic: No overt focal deficits, CN's II-XI not formally tested but appear grossly intact bilaterally. Skin: No rashes, normal color, warm/dry. Results & Data Results & Data Vital Signs (Past 12 Hours) Vital Signs Temp Pulse Pulse Resp BP BP Pulse Ox 06/01/24 13:06 36.8 C 88 16 154/66 H 97 06/01/24 07:00 06/01/24 07:00 36.4 C L 84 14 157/72 H 96 O2 Del Method 06/01/24 13:06 Room Air 06/01/24 07:00 Room Air 06/01/24 07:00 Room Air Laboratory Results Short CBC 06/01/24 Range/Units 05:50 WBC 6.85 (4.8-10.8) K/ul Hgb 15.1 (14.0-18.0) g/dl Hct 44.7 (42.0-52.0) % Plt Count 182 (130-400) K/uL BMP 06/01/24 05:45 Sodium 143 Potassium 4.0 Chloride 111 H Carbon Dioxide 25 BUN 24 H Creatinine 1.06 Glucose 121 H Calcium 9.0
[2024-06-01 15:00] VITALS: RESP 18
[2024-06-01] MEDS ORDERED: WARFARIN SOD 2.5 MG TAB PO SCH (16:00)
[2024-06-02 06:06] LABS: Hematocrit (blood only) 45.9 % (42.0-52.0); Hemoglobin 15.8 g/dl (14.0-18.0); Mean Corpuscular Hemoglobin 30.9 pg (25.0-34.0); Mean Corpuscular Hgb Conc 34.4 g/dL (32.0-36.0); Mean Corpuscular Volume 89.6 fL (80.0-100.0); Mean Platelet Volume 10.8 fL (9.4-12.4); Platelet Count 184 K/uL (130-400); RDW Coefficient of Variation 14.6 % (11.5-14.5); RDW Standard Deviation 47.3 fL (36.4-46.3); Red Blood Count 5.12 M/uL (4.70-6.10); White Blood Count 7.67 K/ul (4.8-10.8)
[2024-06-02 06:26] LABS: BUN Creatinine Ratio 18.2 (10-20); Calcium 9.2 mg/dl (8.6-10.3); Creatinine Clr Calc Pharmacy 51.6 ml/min; Magnesium 2.1 mg/dl (1.7-2.4); Potassium 4.4 mmol/L (3.5-5.1)
[2024-06-02 06:35] LABS: ANTI-Xa, UFH(UnfractionatedHep < 0.10 IU/ml (0.3-0.7); INR 1.6 (0.9-1.1); Prothrombin Time 16.7 Seconds (9.0-12.0)
[2024-06-02 07:44] VITALS: BP 124/73; PULSE 84; TEMP 97.5; O2SAT 96
[2024-06-02] MEDS: INSULIN ASPART PER UNIT CHARGE SC SCH ×2 (08:17→12:20)
--- NOTE | 2024-06-02 13:53 | Discharge Summary ---
Discharge Summary Date of Service June 02, 2024 Principal Dx & Hospital Course #1 = Principal Diagnosis (1) Acute pain of left hip: Plan Derek Tristan is a 64y/o M with PMHx significant for type 2 diabetes, hyperlipidemia, interstitial lung disease/COPD, pulmonary nodules, allergic rhinitis, hypertension, aortic valve stenosis s/p mechanical valve replacement, history of TIA, valvular insufficiency, GERD, gout arthropathy, personal history of alcoholism and history of pancreatitis who presented to the ED on 05/29/2024 secondary to ongoing left hip pain. Patient states the pain started the sunday prior to admission. He was in the ED and was prescribed pain medications without significant relief of the pain. Patient reports the pain radiates down to left calf and foot regions. He also saw his PCP who did a hip XR on 05/28/2024 which revealed mild osteoarthritis of both hips. He is now experiencing ambulatory dysfunction because of pain. In his ED, he was also found to have a BSG in the 500s. Patient says for last 2 to 3 months that he has not taking his warfarin due to lapse in health insurance coverage making the medication far to expense for him to pay out of pocket. Pelvic CT on admission revealed mild osteoarthritis of both hip joints. Lumbar spine CT revealed mild spinal stenosis and posterior disc bulge and mild ligamentum flavum hypertrophy. He received a LLE doppler US that was negative for DVT. Pain is improving with PRN po oxycodone and oral prednisone course that was completed during admission. He was seen and evaluated by orthopedic spine who recommended outpt work up and PT. His hospital stay was complicated by hyperglycemia. He initially required an insulin drip and was later transitioned to basal bolus regimen. His A1c was 13.8 on admission. Patient admits to not being compliant with insulin due to lack of insurance and cost. Patient previously was obtaining through [employer] [id number] program 70/30 Novolin. His case was coordinated with the pharmacist as well as the paraeducator. Plan is to discharge the patient home on 70/30 Novolin 33 units twice daily with breakfast and supper. He is also encouraged to monitor his blood sugars 4 times daily. His metformin is going to be stopped at this time given likely lack of efficacy as he is no longer insulin resistant. Prescriptions were sent over to [facility] on [facility] therefore patient can resume his home medications. Due to not being on warfarin for several months he required a heparin bridge back on to his warfarin. His goal INR is 1.5-2 for his mechanical aortic valve. His INR on day of discharge was 1.6. He is being discharged on 2.5 mg of Coumadin daily. He is encouraged to follow closely with [facility] for diabetic and Coumadin clinic management. His other medical conditions remained stable throughout hospital stay. On day of discharge he was hemodynamically stable and tolerating diet. Notes For Next Care Provider Please arrange Diabetic and Warfarin [place] pharmacy appointments. Pt A1C 13.8. Pt was w/o insurance and meds. Please ensure pt is now able to afford all medications or if any further adjustments need made to ensure compliance. Medication Changes From Visit Please continue all medications as prescribed. Your new scripts were sent to [facility] for [facility] on [facility]. Please continue warfarin 2.5mg daily, your next dose is due in the evening on 06/02/24. Please take your Novolin Insulin with Breakfast and Supper. Admission HPI Per Admitting Provider 64 year-old male with past medical history significant for type 2 diabetes, hyperlipidemia, interstitial lung disease, COPD, pulmonary nodules, allergic rhinitis, hypertension, aortic valve stenosis status post mechanical valve replacement, history of TIA, valvular insufficiency, GERD, gout arthropathy, personal history of alcoholism, history of pancreatitis, comes because of ongoing left hip pain. Patient states the pain started last Sunday. He was in the ER was prescribed pain medications and also saw PCP had x-ray done which showed osteoarthritis. The pain is not getting better so he came back to ER today. Patient states pain in the left hip region radiating down to left calf and foot. Having ambulatory dysfunction because of pain. In his ER also found to have sugars in the 500s. Patient says for last 2 to 3 months not taking his Coumadin after he ran out of his medications and has an appointment tomorrow with anticoagulation clinic to restart Coumadin. No headache currently. No dizziness. Vision is okay. No runny nose or sore throat. No fevers. No chest pain or shortness of breath. Has cough from his smoking. Appetite okay. No difficulty swallowing. No nausea currently. No abdominal pain. Normal bowel and bladder movements. Resting comfortably. Past med history. As mentioned above Past surgical history. Left carpal tunnel surgery. Colonoscopy. Left heart cath. EGD with endoscopic ultrasound. Mechanical aortic valve replacement. Social history. Smokes 0.5 pack a day for last 48 years. No alcohol use. Quit alcohol 2000. No drug use. Family history. Mother had aortic stenosis. Crohn's disease. Paternal grandmother had diabetes. Hypertension. Admission Exam Per Admitting Provider General- Not in distress Head- atraumatic Eyes- PERRL. ENT- oropharynx clear Neck- supple, no JVD. Lungs- clear to auscultation no wheezing or crackles Heart- regular rate and rhythm; no murmur, no gallop. Abdomen- normal bowel sounds, soft, nontender, no distension Extremities- no pretibial edema, no erythema seen. Painful left hip movements Neuro- alert, oriented PERRL, no facial palsy; no dysarthria; moves extremities Discharge Exam Gen: WD/WN, NAD, A&O x3 HEENT: Normocephalic, atraumatic, conjunctivae moist, sclerae anicteric, mucous membranes moist. Lung: Clear to Auscultation bilaterally, no wheezes/rales/rhonchi Heart: Regular rate, regular rhythm, no murmurs, rubs, or gallops Abdomen: Soft, NT, ND +BS x 4 Extremities: No edema Skin: Warm, no rash, negative turgor. Updated Medication List Medication Instructions Recorded Confirmed Type ketorolac 10 mg tablet 10 mg PO BID PRN pain #10 tabs 05/26/24 05/28/24 Rx aspirin 81 mg tablet,delayed 81 mg PO DAILY #30 tabs 06/02/24 Rx release cyclobenzaprine 5 mg tablet 5 mg PO TID PRN muscle spasm #30 06/02/24 Rx tabs insulin NPH-regular 70-30 U-100 33 unit (0.33 mL) subcut BID #15 mL 06/02/24 Rx insulin 100 unit/mL subcutaneous pen (Novolin 70-30 FlexPen U-100 Insulin) omeprazole 20 mg capsule,delayed 20 mg PO DAILYBB #30 caps 06/02/24 Rx release pen needle, diabetic 32 gauge x #50 ea 06/02/24 Rx " (Pen Needle) rosuvastatin 40 mg tablet 40 mg PO QAM #30 tabs 06/02/24 Rx warfarin 2.5 mg tablet 2.5 mg PO DAILY@1600 30 days #30 06/02/24 Rx tabs Hospital Stay Data Consultations 05/28/24 22:24 ED Decision to Admit Stat 05/29/24 08:00 Consult Orthopedic Surgery Routine Diagnostic Imagining Performed Lumbar Spine CT 05/28/24 19:42 Exam(s): CT L SPINE EXAM: CT Lumbar Spine Without Intravenous Contrast CLINICAL HISTORY: Reason for exam: L hip region pain/sacral region pain. TECHNIQUE: Axial computed tomography images of the lumbar spine without intravenous contrast. CTDI is 35 mGy and DLP is 1025.3 mGy-cm. Automated exposure control was utilized for the study. A dose lowering technique was utilized adhering to the principles of ALARA. COMPARISON: MRI from December 02, 2021 FINDINGS: Vertebrae: The lumbar spine vertebral body heights are within normal limits. No acute compression fracture or burst fracture is seen. Discs/spinal canal/neural foramina: The spinal alignment is normal. No acute fracture or subluxation is seen. Mild multilevel degenerative disc disease seen throughout the lumbar spine. There is anterior osteophyte formation at all lumbar levels. There is mild spinal stenosis at L3-4 and L4-5 due to broad-based posterior disc bulge and mild ligamentum flavum hypertrophy. Soft tissues: Unremarkable. Vasculature: Moderate calcification of the abdominal aorta and common iliac arteries which are nondilated. IMPRESSION: 1. The spinal alignment is normal. No acute fracture or subluxation is seen. 2. The lumbar spine vertebral body heights are within normal limits. No acute compression fracture or burst fracture is seen. 3. Mild multilevel degenerative disc disease seen throughout the lumbar spine. There is anterior osteophyte formation at all lumbar levels. There is mild spinal stenosis at L3-4 and L4-5 due to broad-based posterior disc bulge and mild ligamentum flavum hypertrophy. Electronically signed by: Melchor Torres MD 05/28/24 23:[address] 05/28/24 19:42 Exam(s): CT PELVIS Without Contrast EXAM: CT Pelvis Without Intravenous Contrast CLINICAL HISTORY: Reason for exam: L hip region pain/sacral region pain. TECHNIQUE: Axial computed tomography images of the pelvis without intravenous contrast. CTDI is 23.38 mGy and DLP is 683.01 mGy-cm. Automated exposure control was utilized for the study. A dose lowering technique was utilized adhering to the principles of ALARA. COMPARISON: No relevant prior studies available. FINDINGS: Bowel: Unremarkable. No obstruction. No mucosal thickening. Appendix: No findings to suggest acute appendicitis. Intraperitoneal space: Unremarkable. No free air. No significant fluid collection. Bladder: Mild urinary bladder wall thickening measuring 9 mm is likely due to decompressed status of the bladder. No stones. Reproductive: Unremarkable as visualized. Bones/joints: Mild narrowing and osteophytosis of both hip joints consistent with mild osteoarthritis. No hip fracture or dislocation is seen. Mild osteophytosis of the sacroiliac joints bilaterally. Pelvis is intact. No fracture or destructive bone lesion is seen. Soft tissues: Unremarkable. Vasculature: Unremarkable. No lower abdominal aortic aneurysm. Lymph nodes: Unremarkable. No enlarged lymph nodes. IMPRESSION: 1. Mild narrowing and osteophytosis of both hip joints consistent with mild osteoarthritis. No hip fracture or dislocation is seen. 2. Mild osteophytosis of the sacroiliac joints bilaterally. The pelvis is intact. No fracture or destructive bone lesion is seen. Electronically signed by: Melchor Torres MD 05/28/24 23:24 PM Venous Doppler Study 05/28/24 19:42 Exam(s): US VENOUS LEFT LOWER EXTREMITY EXAM: US Duplex Left Lower Extremity Veins CLINICAL HISTORY: Reason for exam: L leg pain. TECHNIQUE: Real-time duplex ultrasound scan of the left lower extremity veins integrating B-mode two-dimensional vascular structure, Doppler spectral analysis, color flow Doppler imaging and compression. COMPARISON: No relevant prior studies available. FINDINGS: Deep veins: Unremarkable. No DVT in the visualized common femoral, femoral, proximal deep femoral or popliteal veins. The veins demonstrate normal color flow, are normally compressible, with normal phasic flow and/or augmentation response. Superficial veins: Unremarkable. No thrombus in the visualized great saphenous vein. Soft tissues: No acute findings. No popliteal cyst. IMPRESSION: Negative left lower extremity venous duplex ultrasound. There is no evidence of DVT. Electronically signed by: Melchor Torres MD 05/28/24 23:25 PM Hip/Pelvis X-Ray 05/29/24 09:10 XR hip LT 2V w pelvis CLINICAL HISTORY: Left hip pain. COMPARISON: Pelvis CT May 28, 2024. FINDINGS: Sacroiliac joints and symphysis pubis are intact. There are no fractures within the pelvis or hips. There are no osseous lesions. There is mild to moderate bilateral hip joint space narrowing with osteophytosis. There is no evidence for avascular necrosis of the femoral heads. IMPRESSION: 1. No fractures within the pelvis or hips. 2. Mild to moderate bilateral hip osteoarthritis. ACT 112: Negative or not required by law. Electronically signed by: Cassius Perez M.D. 05/29/2024 10:28 AM Tibia/Fibula X-Ray 05/31/24 09:55 XR tibia fibula LT 2V CLINICAL HISTORY: TTP of L amador region, r/o fracture COMPARISON: None FINDINGS: There are no fractures within the left tibia or fibula. No osseous lesions are identified. IMPRESSION: No fractures within the left tibia or fibula. ACT 112: Negative or not required by law. Electronically signed by: Cassius Perez M.D. 05/31/2024 12:00 PM Ankle X-Ray 05/31/24 10:17 XR ankle LT 2V CLINICAL HISTORY: Left ankle pain, r/o fracture COMPARISON: None FINDINGS: Alignment of the left ankle is anatomic. There is no acute fracture. Talar dome is intact. There is no osseous lesions. IMPRESSION: No fracture or dislocation within the left ankle. ACT 112: Negative or not required by law. Electronically signed by: Cassius Perez M.D. 05/31/2024 11:57 AM Foot X-Ray 05/31/24 10:17 XR foot LT 2V CLINICAL HISTORY: Left foot pain, r/o fracture COMPARISON: None FINDINGS: Alignment of the left foot is anatomic. Tarsometatarsal joints are intact. No acute fractures within the left foot are present. There are mild degenerative changes within several articulations of the forefoot. IMPRESSION: No fracture or dislocation within the left foot. ACT 112: Negative or not required by law. Electronically signed by: Cassius Perez M.D. 05/31/2024 12:02 PM Pending Results Patient Have Any Pending Studies at Discharge: No Discharge Instructions Given to Patient (Per Discharging Provider) MEDICATION CHANGES: Please continue all medications as prescribed. Stop Metformin. Your new scripts were sent to [facility] for [facility] on [facility]. Please continue warfarin 2.5mg daily, your next dose is due in the evening on 08/02/23. Please take your Novolin Insulin with Breakfast and Supper. PENDING TEST RESULTS: None RECOMMENDATIONS FOR FOLLOW-UP: Please follow up with PCP as scheduled. You will need to establish and follow with [facility]. Please have your PCP arrange these appointments. Please take all medications as prescribed. If you are having difficulty obtaining your medications please discuss with your PCP for further assistance. Please check your blood sugar before meals and at bedtime. Please keep a log of this. Please discuss with your PCP regarding setting you up with a continuous glucose monitor. Please have your PCP obtain an appointment for orthopedic spine evaluation due to your leg pain. Seek medical attention if you have: * temperature above 101 * chest pain or trouble breathing * abdominal pain, nausea, vomiting * diarrhea, dark stools or bloody stools * any unanswered questions or concerns Call 911 if symptoms are severe. Please take good care of yourself. It has been a pleasure taking care of you. Please take care of yourself. If you have any questions regarding your recent hospitalization please contact [facility] and request [facility] @ [phone]. Total Time Total Time Spent Total Time Spent (In Minutes): 45 min Supervising Physician Co-Signing Physician Notes Patient seen and examined Agree with findings and plans as detailed by Yusra Lewis PA-C
[2024-06-02] MEDS ORDERED: LANTUS PER UNIT CHARGE SC SCH (21:00)
== END 2024-06-02 14:40 | disposition home or self-care (01) | DRG 552 ==
LOC: ED 18:38 → 3E 05-29 01:03
DX: R26.2 Difficulty in walking, not elsewhere classified; M10.9 Gout, unspecified; Z86.73 Personal history of transient ischemic attack (TIA), and cerebral infarction without residual deficits; F10.21 Alcohol dependence, in remission; M54.16 Radiculopathy, lumbar region; E78.5 Hyperlipidemia, unspecified; E11.65 Type 2 diabetes mellitus with hyperglycemia; Z95.2 Presence of prosthetic heart valve; Z79.899 Other long term (current) drug therapy; Z88.1 Allergy status to other antibiotic agents; Z79.4 Long term (current) use of insulin; R91.8 Other nonspecific abnormal finding of lung field; M25.552 Pain in left hip; Z79.84 Long term (current) use of oral hypoglycemic drugs; M16.0 Bilateral primary osteoarthritis of hip; Z79.01 Long term (current) use of anticoagulants; J84.9 Interstitial pulmonary disease, unspecified; K21.9 Gastro-esophageal reflux disease without esophagitis; F17.210 Nicotine dependence, cigarettes, uncomplicated; I10 Essential (primary) hypertension; Z79.82 Long term (current) use of aspirin; Z83.3 Family history of diabetes mellitus

== ENCOUNTER 2024-06-03 07:57 | Inpatient (IN) ==
--- NOTE | 2024-06-03 08:09 | Emergency Department Note ---
History of Present Illness General Chief complaint: Hip Pain Stated complaint: L HIP PAIN Time Seen by Provider: 06/03/24 07:58 History of Present Illness Maximum Pain Intensity: 2 This is a 64-year-old male that presents to the emergency department via EMS with complaints of "left hip pain". The patient notes that he was discharged from the hospital yesterday. The patient states that today he was at work, and notes that he began with discomfort to his left lateral hip area. This is the same pain that he had several days ago ultimately prompting admission to the hospital. The patient denies any falls, fever, trauma, injury or abdominal pain. No chest pain or shortness of breath. No speech trouble or weakness. Patient states that he has been working to lower his blood sugar and administer 33 units of 70/30 insulin at 4 AM per recommendation on discharge yesterday. Patient also notes that he has been taking warfarin as prescribed noting mechanical heart valve. Patient notes he is on 2.5 mg p.o. daily pending INR recheck. The patient states that the pain that he had today almost made a fall to the ground to the left hip therefore he summoned EMS. Current pain 2/10. No weakness other than continued left leg weakness per patient. Home Medications Medication Instructions Recorded Confirmed Type ketorolac 10 mg tablet 10 mg PO BID PRN pain #10 tabs 05/26/24 06/03/24 Rx aspirin 81 mg tablet,delayed 81 mg PO DAILY #30 tabs 06/02/24 06/03/24 Rx release cyclobenzaprine 5 mg tablet 5 mg PO TID PRN muscle spasm #30 06/02/24 06/03/24 Rx tabs insulin NPH-regular 70-30 U-100 33 unit (0.33 mL) subcut BID #15 mL 06/02/24 06/03/24 Rx insulin 100 unit/mL subcutaneous pen (Novolin 70-30 FlexPen U-100 Insulin) omeprazole 20 mg capsule,delayed 20 mg PO DAILYBB #30 caps 06/02/24 06/03/24 Rx release pen needle, diabetic 32 gauge x #50 ea 06/02/24 Rx " (Pen Needle) rosuvastatin 40 mg tablet 40 mg PO QAM #30 tabs 06/02/24 06/03/24 Rx warfarin 2.5 mg tablet 2.5 mg PO DAILY@1600 30 days #30 06/02/24 06/03/24 Rx tabs Allergies Allergy/AdvReac Type Severity Reaction Status Date / Time erythromycin base Allergy Intermediate Abdominal Verified 05/07/24 21:28 Pain Past Med/Surg History Problem List (Updated 06/03/24 @ 11:49 by Kaden Llanes PA-C) Ambulatory dysfunction (Acute) Hip pain, left (Acute) Lumbar radiculitis Hyperglycemia (Acute) Acute pain of left hip (Acute) Hip pain (Acute) Severe aortic stenosis Sepsis Chest pain (Acute) Weakness (Acute) DKA (diabetic ketoacidosis) (Acute) Hyperglycemia (Acute) Pancreatitis Irritable bowel syndrome (Chronic) DKA (diabetic ketoacidoses) (Acute) Hyperkalemia (Acute) Diabetes (Acute) Carpal tunnel syndrome Admitted to intensive care unit Acute kidney injury superimposed on chronic kidney disease Dehydration (Acute) Tachycardia (Acute) Back pain Aortic stenosis Hyperglycemic crisis in diabetes mellitus DKA (diabetic ketoacidosis) (Acute) Elevated troponin Hyperkalemia (Acute) Gastroparesis Altered mental status (Acute) OMARI (acute kidney injury) (Acute) Hypothermia (Acute) Acute pancreatitis Ileus, unspecified Hyponatremia Metabolic acidosis, increased anion gap Uncontrolled type 2 DM with hyperosmolar nonketotic hyperglycemia Encounter for pre-operative examination DM2 (diabetes mellitus, type 2) Abnormal gall bladder diagnostic imaging Pneumonia H/O TIA (transient ischemic attack) and stroke ILD (interstitial lung disease) GERD (gastroesophageal reflux disease) Stroke-like episode (Acute) - History of TIA vs vertigo per cardio records 11/2021 (on Plavix) - 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 Repeat head CTA 08/2022 was unremarkable and no left ICA aneurysm identified Hypertension Hyperlipidemia Medical History PFO (patent foramen ovale) Small per 11/2021 [facility] [place] imaging per cardio records Barretts esophagus Per records Gallbladder sludge reason for upcoming procedure Arthritis, gouty Hx of kidney disease PER PATIENT, ACUTE KIDNEY DISEASE 05/2022>WNL CURRENTLY GERD (gastroesophageal reflux disease) "silent/mild" Diabetes mellitus, type 2 Hx of pancreatitis HOSPITALIZED 05/2022>DKA and acute pancreatitis Aortic valve stenosis Severe per 05/2022 ECHO (PK 0.78-1.0cm2; AV mean PG 23.2mmHg; AV max velocity 3.684m/s) Chronic obstructive pulmonary disease MILD>NO INHALERS PER PATIENT Surgical History Nausea and vomiting after administration of anesthetic agent H/O arthroscopic knee surgery + GANGLION CYST REMOVED>RT History of esophagogastroduodenoscopy (EGD) History of colonoscopy History of tooth extraction History of tonsillectomy and adenoidectomy History of cataract surgery RT/LEFT History of foot surgery RT History of carpal tunnel surgery LEFT Family History Other Diabetes Heart disease No family history of adverse response to anesthesia Social History Smoking Status: Current every day smoker Tobacco Type: Cigarettes Cigarettes Per Day: 4 CIG DAILY>ADVISED; Second Hand Exposure: No; Do You Dip or Chew Tobacco: No; Hx Alcohol Use: No Hx Substance Use: No Preferred Language: Irish Communication Ability: Effective Front Man Required: No Beliefs That Will Affect Care: None marital status: Unknown Current Living Situation: Family Current Living Situation Comment: WITH SON Feels Safe at Home: Yes Assistive Devices: None Review of Systems A total of 10 systems reviewed and were otherwise negative Physical Exam Vital Signs Vital Signs - 24 hr 06/03/24 08:03 06/03/24 08:24 06/03/24 10:19 Temperature 36.4 C L Temperature Source Oral Pulse Rate 98 H 91 H Pulse Rate [Apical] 90 Respiratory Rate 16 13 Respiratory Effort / Characteristics Non-Labored Non-Labored Respiratory Depth Normal Normal Respiratory Pattern Regular Regular Blood Pressure 169/87 H Blood Pressure [Right Arm] 170/74 H Blood Pressure Mean 114 Blood Pressure Mean [Right Arm] 106 Pulse Oximetry 99 99 Oxygen Delivery Method Room Air Room Air Sepsis Recent Fever Within 48 Hours No Sepsis New/Unexplained Change in Mental Status N/A Sepsis Action Taken by Nursing No Action Required VITAL SIGNS - Vital signs and nursing notes were reviewed. Stable and afebrile. Hypertensive 169/87. GENERAL -64-year-old male appearing his stated age who is in no acute distress. Communicates well with provider and answers questions appropriately. SKIN - Without rashes. No meningeal or petechial rash. The skin overlying the left hip is unremarkable. No erythema or edema. No herpetic lesions HEAD - NC/AT. EYES - PERRL with EOMI bilaterally. Sclera anicteric. MOUTH/OROPHARYNX - Without perioral cyanosis. NECK - Neck with FROM. No nuchal rigidity. LUNGS - CTA CARDIAC - RRR, audible click noted consistent with mechanical heart valve. ABDOMEN - Abdominal contour normal without pulsations or visible masses. BS normoactive all four quadrants. No tenderness, palpable masses, hepatosplenomegaly, or ascites noted. EXTREMITIES - No clubbing or peripheral cyanosis. Left lateral hip tenderness overlying greater trochanter without erythema, edema or crepitus. Left calf is soft without edema. No palpable cord. Lower extremities are appropriately warm and well-perfused. +5/5 strength noted in UE/LE bilaterally. NEUROLOGIC - Cranial nerves II through XII grossly intact. Patellar reflex within normal limits bilaterally PSYCH -alert, oriented and pleasant on exam. Pt is very pleasant and interacts well with examiner. Medical Decision Making Laboratory Data 06/03/24 08:17 06/03/24 08:17 Lab Results 06/03/24 Range/Units 08:17 WBC 8.24 (4.8-10.8) K/ul RBC 5.05 (4.70-6.10) M/uL Hgb 15.5 (14.0-18.0) g/dl Hct 45.4 (42.0-52.0) % MCV 89.9 (80.0-100.0) fL MCH 30.7 (25.0-34.0) pg MCHC 34.1 (32.0-36.0) g/dL RDW Std Deviation 48.3 H (36.4-46.3) fL RDW Coeff of Mariah 14.8 H (11.5-14.5) % Plt Count 194 (130-400) K/uL MPV 10.6 (9.4-12.4) fL Immature Gran % (Auto) 0.6 % Neut % (Auto) 70.5 % Lymph % (Auto) 20.0 % [place] % (Auto) 7.6 % Eos % (Auto) 1.1 % Baso % (Auto) 0.2 % Neut # (Auto) 5.80 (1.40-6.50) K/uL Lymph # (Auto) 1.65 (1.20-3.40) K/uL [place] # (Auto) 0.63 H (0.11-0.59) K/uL Eos # (Auto) 0.09 (0.00-0.50) K/uL Baso # (Auto) 0.02 (0.00-0.20) K/uL Immature Gran # (Auto) 0.05 (0.01-0.20) K/uL PT 11.7 (9.0-12.0) Seconds INR 1.1 (0.9-1.1) Sodium 140 (136-145) mmol/L Potassium 4.4 (3.5-5.1) mmol/L Chloride 109 H (98-107) mmol/L Carbon Dioxide 25 (21-32) mmol/L Anion Gap 6 (3-11) BUN 24 H (6-23) mg/dl Creatinine 1.16 (0.6-1.4) mg/dl Est Cr Clr Drug Dosing 66.0 ml/min eGFR 71.21 BUN/Creatinine Ratio 20.7 H (10-20) Glucose 243 H (70-99(Fasting)) mg/dl Calcium 9.1 (8.6-10.3) mg/dl Total Bilirubin 0.3 (0.2-1.0) mg/dl AST 23 (13-39) U/L ALT 26 (7-52) U/L Alkaline Phosphatase 105 H (34-104) U/L Total Protein 7.3 (6.0-8.3) gm/dl Albumin 3.8 (3.4-5.0) gm/dl Globulin 3.5 (2.5-4.0) gm/dl Albumin/Globulin Ratio 1.1 (0.9-2) Urine Color Yellow Urine Appearance Clear (Clear) Urine pH 5.5 (4.5-7.5) Ur Specific [place] 1.016 (1.000-1.030) Urine Protein 3+ H (Negative) Urine Glucose (UA) 1+ H (Negative) Urine Ketones Negative (Negative) Urine Blood Negative (Negative) Urine Nitrite Negative (Negative) Urine Bilirubin Negative (Negative) Urine Urobilinogen Negative (Negative) Ur Leukocyte Esterase Negative (Negative) Urine WBC (Auto) 0-5 (0-5) /hpf Urine RBC (Auto) 0-2 (0-2) /hpf U Hyaline Cast (Auto) 3-5 H (0-2) /lpf U Epithel Cells (Auto) 0-2 (0-2) /hpf Urine Bacteria (Auto) None Seen (None Seen) Imaging Data Radiologist's Impression: Femur X-Ray 06/03/24 08:08 XR femur LT 2V routine CLINICAL HISTORY: Left leg pain. COMPARISON: Pelvis CT May 28, 2024. Pelvis and left hip radiographs May 29, 2024. FINDINGS: There are no fractures within the left femur. There are no osseous lesions. There is mild to moderate left hip joint space narrowing with osteophytosis. There is no evidence for avascular necrosis of the left femoral head. IMPRESSION: 1. No fractures within the left femur. 2. Mild to moderate left hip osteoarthritis. ACT 112: Negative or not required by law. Electronically signed by: Cassius Perez M.D. 06/03/2024 8:48 AM MDM Narrative Patient was seen and evaluated as above in room A10. Review was performed of triage nursing notes and vital signs. Patient presents today for evaluation of return of left hip pain. On assessment there is no weakness. I did review his admission notes. Certainly this may be secondary to left-sided lumbar radiculopathy versus hip. No sign of infection. IV access with established. Labs were drawn. No leukocytosis or concerning anemia. Coags normal but will note patient is to be anticoagulated noting mechanical heart valve. Mild elevation of BUN at 24. Urinalysis does not suggest infection. X-ray left femur without fracture. I discussed several options with the patient. Patient notes that even attempting to shower it is difficult to stand noting the pain/trouble with the left leg. No weakness on my assessment however we will proceed with MRI L-spine to further assess. I discussed several options with the case management service and ultimately will proceed with further evaluation and management in the inpatient setting. Case discussed with the hospitalist service. Please refer to further documentation regarding his stay. MR Jasmin-spine pending at this time noting hospitalization. GCS: 15 In the evaluation and treatment of this patient the following differential diagnoses were entertained: Cauda equina syndrome, fracture, dislocation, subluxation, contusion, among others Impression & Plan Hip pain, left, Ambulatory dysfunction Discharge Plan Visit Data Chief Complaint: Hip Pain Stated Complaint: L HIP PAIN ED Provider: Maggie Alvarez ED Midlevel Provider: Kaden Llanes Discharge Problem: Hip pain, left, Ambulatory dysfunction Patient Disposition: Admitted As Inpatient Condition: Good Forms Stand Alone Forms: My [facility] Prescriptions Prescriptions: No Action ketorolac 10 mg tablet 10 mg PO BID PRN (Reason: pain) Qty: 10 0RF Rx Instructions: NO MONEY TO ENTERTAINMENT MUSICIAN FROM PHARMACY (DME) pen needle, diabetic [Pen Needle] 32 gauge x 5/32" needle See Rx Instructions .Route Qty: 50 3RF Rx Instructions: Please check blood sugar before meals and at bedtime warfarin 2.5 mg tablet 2.5 mg PO DAILY@1600 30 Days Qty: 30 0RF Rx Instructions: 2.5 mg orally; aspirin 81 mg Tablet,Delayed Release (Dr/Ec) 81 mg PO DAILY Qty: 30 0RF omeprazole 20 mg capsule,delayed release(DR/EC) 20 mg PO DAILYBB Qty: 30 0RF cyclobenzaprine 5 mg tablet 5 mg PO TID PRN (Reason: muscle spasm) Qty: 30 0RF Rx Instructions: NO MONEY TO ENTERTAINMENT MUSICIAN FROM PHARMACY rosuvastatin 40 mg tablet 40 mg PO QAM Qty: 30 0RF Novolin 70-30 FlexPen U-100 100 unit/mL (70-30) insulin pen 33 unit subcut BID Qty: 15 0RF Referrals Referrals: Anabel Ortiz MD [Primary Care Provider] -
[2024-06-03 08:37] LABS: Basophils # (auto) 0.02 K/uL (0.00-0.20); Basophils % (auto) 0.2 %; Eosinophils # (auto) 0.09 K/uL (0.00-0.50); Eosinophils % (auto) 1.1 %; Hematocrit (blood only) 45.4 % (42.0-52.0); Hemoglobin 15.5 g/dl (14.0-18.0); Immature Granulocytes # (auto) 0.05 K/uL (0.01-0.20); Immature Granulocytes % (auto) 0.6 %; Lymphocytes # (auto) 1.65 K/uL (1.20-3.40); Mean Corpuscular Hemoglobin 30.7 pg (25.0-34.0); Mean Corpuscular Hgb Conc 34.1 g/dL (32.0-36.0); Mean Corpuscular Volume 89.9 fL (80.0-100.0); Mean Platelet Volume 10.6 fL (9.4-12.4); Monocytes # (auto) 0.63 K/uL (0.11-0.59); Monocytes % (auto) 7.6 %; Neutrophils % (auto) 70.5 %; Platelet Count 194 K/uL (130-400); RDW Coefficient of Variation 14.8 % (11.5-14.5); RDW Standard Deviation 48.3 fL (36.4-46.3); Red Blood Count 5.05 M/uL (4.70-6.10); White Blood Count 8.24 K/ul (4.8-10.8)
--- NOTE | 2024-06-03 08:50 | XRay Report ---
XR femur LT 2V routine CLINICAL HISTORY: Left leg pain. COMPARISON: Pelvis CT May 28, 2024. Pelvis and left hip radiographs May 29, 2024. FINDINGS: There are no fractures within the left femur. There are no osseous lesions. There is mild to moderate left hip joint space narrowing with osteophytosis. There is no evidence for avascular nec rosis of the left femoral head. IMPRESSION: 1. No fractures within the left femur. 2. Mild to moderate left hip osteoarthritis. ACT 112: Negative or not required by law. Electronically signed by: Cassius Perez M.D. 06/03/2024 8:48 AM
[2024-06-03 08:54] LABS: Albumin Globulin Ratio 1.1 (0.9-2); Albumin Level 3.8 gm/dl (3.4-5.0); BUN Creatinine Ratio 20.7 (10-20); Bilirubin,Total 0.3 mg/dl (0.2-1.0); Calcium 9.1 mg/dl (8.6-10.3); Globulin 3.5 gm/dl (2.5-4.0); Potassium 4.4 mmol/L (3.5-5.1); Total Protein 7.3 gm/dl (6.0-8.3)
[2024-06-03 08:59] LABS: INR 1.1 (0.9-1.1); Prothrombin Time 11.7 Seconds (9.0-12.0)
[2024-06-03 10:12] LABS: Appearance Urine Clear (Clear); Bacteria Urine Automated None Seen (None Seen); Bilirubin Urine Negative (Negative); Blood Urine Negative (Negative); Color Urine Yellow; Epithelial Cell Urine Auto 0-2 /hpf (0-2); Glucose Urine UA 1+ (Negative); Ketones Urine Negative (Negative); Leukocyte Esterase Urine Negative (Negative); Nitrite Urine Negative (Negative); Protein Urine 3+ (Negative); RBC Urine Automated 0-2 /hpf (0-2); Specific Gravity Urine 1.016 (1.000-1.030); Urobilinogen Urine Negative (Negative); WBC Urine Automated 0-5 /hpf (0-5); pH Urine 5.5 (4.5-7.5)
--- NOTE | 2024-06-03 12:12 | Magnetic Resonance Report ---
MRI OF THE LUMBAR SPINE WITHOUT CONTRAST CLINICAL HISTORY: Low back pain, left leg weakness COMPARISON STUDY: Lumbar spine MRI December 02, [address] May 28, 2024. TECHNIQUE: Utilizing a 1.5 Nikkie magnet and dedicated coil, multiplanar, multiecho imaging of the [facility] spine was performed without IV contrast. FINDINGS: For purposes of numbering on this exam, the L5-S1 disc space is assigned to axial image 28 of 31. Str aightening of the lumbar lordosis is unchanged. There are no lumbar spine fractures. There is no yossi ow edema or marrow replacement. No intracanalicular mass or fluid collection is present. Conus termin ates at the upper L2 level. Paravertebral soft tissues are unremarkable. The appearance of the lumbar spine is similar to MRI of December 02, 2021. L1-2: The central canal and neural foramen are patent. L2-3: The central canal and neural foramen are patent. There is mild facet arthrosis. L3-4: There is mild disc bulge with mild facet arthrosis and ligamentous hypertrophy. There is no sig nificant central canal stenosis. Mild bilateral neural foraminal stenosis is similar to previous MRI. L4-5: There is moderate facet arthrosis. There is mild disc bulge. Ligamentous hypertrophy is present . There is no significant central canal stenosis. Moderate bilateral neural foraminal stenosis is unc hanged. L5-S1: The central canal is patent. Mild bilateral neural foraminal stenosis is unchanged. IMPRESSION: 1. No acute process within the lumbar spine. No significant change since MRI December 02, 2021. 2. Mild to moderate multilevel degenerative changes within the lumbar spine. No signal and central ca nal stenosis. Multilevel neural foraminal stenosis, as above. ACT 112: Negative or not required by law. Electronically signed by: Cassius Perez M.D. 06/03/2024 12:10 PM
--- NOTE | 2024-06-03 12:19 | History & Physical Report ---
Date of Service June 03, 2024 Assessment & Plan (1) Lumbar radiculitis: (2) Hip pain, left: (3) Ambulatory dysfunction: Plan: Admit to med/surg Patient presenting from home for evaluation of left hip pain, left leg weakness, ambulatory dysfunction. Patient recently admitted to [facility] 05/29 through 06/02 for management of left hip pain and hyperglycemia. Orthopedic spine evaluated the patient and felt as though patient's symptoms may be due to lumbar radiculopathy. Lumbar spine CT revealed mild spinal stenosis and posterior disc bulge and mild ligamentum flavum hypertrophy. Patient completed a course of prednisone while admitted. Lumbar spine MRI - Mild to moderate multilevel degenerative changes within the lumbar spine. No signal and central canal stenosis. Multilevel neural foraminal stenosis. Will give dexamethasone 8 mg IV x 1, assess response tomorrow and provide additional doses if indicated Scheduled Tylenol, oxycodone for break through pain Discussed with pain management about possible injection tomorrow (4) Diabetes mellitus, type 2: Plan: Hgb A1c 13.8 05/2024 Hold 70/30 insulin while admitted, will use Lantus/Novolog while hospitalized Glycemic pharmacy to assist management while receiving IV steroids (5) H/O mechanical aortic valve replacement: Plan: On Coumadin, INR 1.1 Will need to bridge. IV heparin due to possible spinal injection tomorrow, will need to hold 6 hours prior to procedure. (6) Hypertension: Plan: BP elevated, may be situational/due to pain Pain control Will start amlodipine 5mg daily (7) GERD (gastroesophageal reflux disease): Plan: Continue PPI DVT PROPHYLAXIS IV heparin as above Patient seen in collaboration with Dr. Tony. I spent a total of 75 minutes coordinating, documenting, and providing care for this patient excluding time spent in the performance of separately billed services. This included personally reviewing all current laboratories and imaging studies, medication reconciliation, outpatient chart review, and discussion with specialists. History of Present Illness Chief Complaint: Left hip pain, left leg weakness, difficulty ambulating Primary Care Provider: Anabel Ortiz MD 64-year-old male with PMH DM type II, HLD, GERD, history of mechanical aortic valve replacement anticoagulated on Coumadin, and other problems listed below who presents to the ED for evaluation of left hip pain, left leg weakness, difficulty ambulating. History is obtained from the patient and review of outpatient PCP records. Patient recently admitted to [facility] 05/29 through 06/02 for management of left hip pain and hyperglycemia. Orthopedic spine evaluated the patient and felt as though patient's symptoms may be due to lumbar radiculopathy. Lumbar spine CT revealed mild spinal stenosis and posterior disc bulge and mild ligamentum flavum hypertrophy. Patient completed a course of prednisone while admitted. Patient reports that while at work this morning, he was walking and it felt as though his left leg was going to give out due to weakness. Patient reports ongoing left hip pain. Reports decreased sensation in the left foot. Denies bowel or bladder dysfunction. No fevers or chills. Denies chest pain shortness of breath. No lightheadedness, dizziness, diaphoresis, syncopal events. Denies abdominal pain, nausea, vomiting, diarrhea. No urinary symptoms. In the ED, patient had a left femur x-ray that was unremarkable for acute findings. Labs show subtherapeutic INR 1.1. Other labs unremarkable. Allergies Allergy/AdvReac Type Severity Reaction Status Date / Time erythromycin base Allergy Intermediate Abdominal Verified 05/07/24 21:28 Pain Home Medications Medication Instructions Recorded Confirmed Type ketorolac 10 mg tablet 10 mg PO BID PRN pain #10 tabs 05/26/24 06/03/24 Rx aspirin 81 mg tablet,delayed 81 mg PO DAILY #30 tabs 06/02/24 06/03/24 Rx release cyclobenzaprine 5 mg tablet 5 mg PO TID PRN muscle spasm #30 06/02/24 06/03/24 Rx tabs insulin NPH-regular 70-30 U-100 33 unit (0.33 mL) subcut BID #15 mL 06/02/24 06/03/24 Rx insulin 100 unit/mL subcutaneous pen (Novolin 70-30 FlexPen U-100 Insulin) omeprazole 20 mg capsule,delayed 20 mg PO DAILYBB #30 caps 06/02/24 06/03/24 Rx release pen needle, diabetic 32 gauge x #50 ea 06/02/24 Rx " (Pen Needle) rosuvastatin 40 mg tablet 40 mg PO QAM #30 tabs 06/02/24 06/03/24 Rx warfarin 2.5 mg tablet 2.5 mg PO DAILY@1600 30 days #30 06/02/24 06/03/24 Rx tabs Past Med/Surg History Problem List Ambulatory dysfunction (Acute) Hip pain, left (Acute) Lumbar radiculitis H/O TIA (transient ischemic attack) and stroke ILD (interstitial lung disease) GERD (gastroesophageal reflux disease) Stroke-like episode (Acute) - History of TIA vs vertigo per cardio records 11/2021 (on Plavix) - 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 Repeat head CTA 08/2022 was unremarkable and no left ICA aneurysm identified Hypertension Hyperlipidemia Medical History PFO (patent foramen ovale) Small per 11/2021 [facility] imaging per cardio records Barretts esophagus Per records Gallbladder sludge reason for upcoming procedure Arthritis, gouty Hx of kidney disease PER PATIENT, ACUTE KIDNEY DISEASE 05/2022>WNL CURRENTLY GERD (gastroesophageal reflux disease) "silent/mild" Diabetes mellitus, type 2 Hx of pancreatitis HOSPITALIZED 05/2022>DKA and acute pancreatitis Aortic valve stenosis Severe per 05/2022 ECHO (PK 0.78-1.0cm2; AV mean PG 23.2mmHg; AV max velocity 3.684m/s) Chronic obstructive pulmonary disease MILD>NO INHALERS PER PATIENT Surgical History H/O mechanical aortic valve replacement Nausea and vomiting after administration of anesthetic agent H/O arthroscopic knee surgery + GANGLION CYST REMOVED>RT History of esophagogastroduodenoscopy (EGD) History of colonoscopy History of tooth extraction History of tonsillectomy and adenoidectomy History of cataract surgery RT/LEFT History of foot surgery RT History of carpal tunnel surgery LEFT Family History Other Diabetes Heart disease No family history of adverse response to anesthesia Social History Smoking Status: Current every day smoker Tobacco Type: Cigarettes Cigarettes Per Day: 4 CIG DAILY>ADVISED; Second Hand Exposure: No; Do You Dip or Chew Tobacco: No; Hx Alcohol Use: No Hx Substance Use: No Preferred Language: Romanian Communication Ability: Effective Research 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 Required: No Beliefs That Will Affect Care: None marital status: Unknown Current Living Situation: Family Current Living Situation Comment: WITH SON Feels Safe at Home: Yes Safety Concerns: Afraid for Self Assistive Devices: None Review of Systems Review of Systems: ROS per HPI, all other systems reviewed and negative Physical Exam Constitutional: WD/WN, vitals as above no acute distress Eyes: PERRL, conjunctivae normal, anicteric sclerae ENMT: external ear and nose normal, oropharynx normal Respiratory: normal respiratory effort, lungs clear to auscultation Cardiovascular: Rate/Rhythm: regular rate and regular rhythm Vessels: normal peripheral pulses Extremities: no edema Gastrointestinal (Abdomen): normal bowel sounds, soft, nontender, no hepatosplenomegaly Musculoskeletal: LLE strength 4/5 Skin: no rashes, warm and dry Neurologic: PERRL, EOMI, accommodation nl, no face palsy, no dysarthria Psychiatric: A+Ox3, euthymic affect Results & Data Results & Data Vital Signs (Past 12 Hours) Vital Signs Temp Pulse Pulse Resp BP BP Pulse Ox 06/03/24 10:19 90 13 170/74 H 99 06/03/24 08:24 91 H 06/03/24 08:03 36.4 C L 98 H 16 169/87 H 99 O2 Del Method 06/03/24 10:19 Room Air 06/03/24 08:24 06/03/24 08:03 Room Air Laboratory Results Short CBC 06/03/24 Range/Units 08:17 WBC 8.24 (4.8-10.8) K/ul Hgb 15.5 (14.0-18.0) g/dl Hct 45.4 (42.0-52.0) % Plt Count 194 (130-400) K/uL BMP 06/03/24 08:17 Sodium 140 Potassium 4.4 Chloride 109 H Carbon Dioxide 25 BUN 24 H Creatinine 1.16 Glucose 243 H Calcium 9.1 Liver Function 06/03/24 Range/Units 08:17 Total Bilirubin 0.3 (0.2-1.0) mg/dl AST 23 (13-39) U/L ALT 26 (7-52) U/L Alkaline Phosphatase 105 H (34-104) U/L Albumin 3.8 (3.4-5.0) gm/dl Urine 06/03/24 Range/Units 08:17 Urine Color Yellow Urine Appearance Clear (Clear) Urine pH 5.5 (4.5-7.5) Ur Specific [place] 1.016 (1.000-1.030) Urine Protein 3+ H (Negative) Urine Glucose (UA) 1+ H (Negative) Diagnostic Findings Femur X-Ray 06/03/24 08:08 XR femur LT 2V routine CLINICAL HISTORY: Left leg pain. COMPARISON: Pelvis CT May 28, 2024. Pelvis and left hip radiographs May 29, 2024. FINDINGS: There are no fractures within the left femur. There are no osseous lesions. There is mild to moderate left hip joint space narrowing with osteophytosis. There is no evidence for avascular necrosis of the left femoral head. IMPRESSION: 1. No fractures within the left femur. 2. Mild to moderate left hip osteoarthritis. ACT 112: Negative or not required by law. Electronically signed by: Cassius Perez M.D. 06/03/2024 8:48 AM Lumbar Spine MRI 06/03/24 10:36 MRI OF THE LUMBAR SPINE WITHOUT CONTRAST CLINICAL HISTORY: Low back pain, left leg weakness COMPARISON STUDY: Lumbar spine MRI December 02, [address] May 28, 2024. TECHNIQUE: Utilizing a 1.5 Nikkie magnet and dedicated coil, multiplanar, multiecho imaging of the lumbar spine was performed without IV contrast. FINDINGS: For purposes of numbering on this exam, the L5-S1 disc space is assigned to axial image 28 of 31. Straightening of the lumbar lordosis is unchanged. There are no lumbar spine fractures. There is no marrow edema or marrow replacement. No intracanalicular mass or fluid collection is present. Conus terminates at the upper L2 level. Paravertebral soft tissues are unremarkable. The appearance of the lumbar spine is similar to MRI of December 02, 2021. L1-2: The central canal and neural foramen are patent. L2-3: The central canal and neural foramen are patent. There is mild facet arthrosis. L3-4: There is mild disc bulge with mild facet arthrosis and ligamentous hypertrophy. There is no significant central canal stenosis. Mild bilateral neural foraminal stenosis is similar to previous MRI. L4-5: There is moderate facet arthrosis. There is mild disc bulge. Ligamentous hypertrophy is present. There is no significant central canal stenosis. Moderate bilateral neural foraminal stenosis is unchanged. L5-S1: The central canal is patent. Mild bilateral neural foraminal stenosis is unchanged. IMPRESSION: 1. No acute process within the lumbar spine. No significant change since MRI December 02, 2021. 2. Mild to moderate multilevel degenerative changes within the lumbar spine. No signal and central canal stenosis. Multilevel neural foraminal stenosis, as above. ACT 112: Negative or not required by law. Electronically signed by: Cassius Perez M.D. 06/03/2024 12:10 PM Supervising Physician Co-Signing Physician Notes Attending addendum The patient was seen and examined in medical floor He was sent home yesterday following an attack of acute pain secondary to o steoarthritis of the hip He has been back today following a significant pain that happened while he was working and twisted his back and the pain felt to be on the lateral and lower side of left hip and he had to sit down to get some relief and help Complains to have some weakness of the left leg as well but seems to be more pain than weakness Denies any other significant symptoms On examination Lying in bed without any apparent distress Hemodynamically stable with blood pressure on the upper side at 162/73 Chestclear to auscultate bilaterally HeartS1-S2, Irregular, 2/6 ESM over precordium Abdomen- benign Extremities no edema Musculoskeletal systemdenies any back pain. Complains of pain in the left lateral hip and also adjoining posterior hip as well. Cannot elevate the left lower extremity seems to be mostly due to pain but denies any numbness and or tingling or any sensory impairment. Significant tenderness noted over left greater trochanteric area. CNSalert, awake and oriented x 3 His admission labs, EKG from May 07 reviewed and also imaging studies reviewed Has significant medical issues with aortic valve replacement and has been on Coumadin MRI of the lumbar spine did not show any significant nerve blockages or any spinal stenosis. Significant tenderness noted over greater trochanter of the left side seems to be has greater trochanteric bursitis Cannot use any NSAIDs Will continue the current pain medications Recently has had a course of steroid for back pain and hip pain Will get Ortho for possible bronchitic bursitis injection and also pain therapy evaluation Agree with assessment and plan as outlined above by [facility] and take the full responsible of care in the hospital Dr Alonzo Tony
[2024-06-03] MEDS ORDERED: DEXAMETHASONE SOD INJ 4 MG/ML VIAL IV ONE (12:44)
[2024-06-03] MEDS ORDERED: GLUCAGON FOR INJ 1 MG VIAL SQ PRN (12:44)
[2024-06-03] MEDS ORDERED: DEXTROSE 50% 50 ML SYRINGE IV PRN (12:44)
[2024-06-03] MEDS ORDERED: PHARMACY GLYCEMIC MGMT CONSULT PRN (12:44)
[2024-06-03] MEDS ORDERED: GLUCOSE 10 TAB/TUBE PO PRN (12:44)
[2024-06-03] MEDS ORDERED: GLUCOSE 40% GEL 15 GM TUBE PO PRN (12:44)
[2024-06-03] MEDS: Heparin IV Adult Wt-Based Standard w/ INITIAL Bolus Protocol IV STA ×2 (13:01→15:09)
[2024-06-03] MEDS ORDERED: HEPARIN SOD (PORCINE) 1000 UNIT/ML IV ONE (13:12)
[2024-06-03] MEDS ORDERED: HEPARIN SODIUM/DEXTROSE 25,000 UNITS/500 ML BAG IV SCH (13:15)
[2024-06-03] MEDS: amLODIPine BESYLATE 5 MG TAB PO ONE (14:27)
[2024-06-03] MEDS: dexAMETHasone 8 MG in SYRINGE 0 ML IV ONE (14:27)
--- NOTE | 2024-06-03 14:33 | Communication Note ---
Date of Service: June 03, [address] Santacruz. Patient declined epidural injection. Will discontinue IV heparin and start therapeutic dose Lovenox and Coumadin bridging. GREGORIA De Leon
--- NOTE | 2024-06-03 14:49 | Pain Management Consultation ---
Date of Consultation June 03, 2024 Assessment & Plan (1) Spinal stenosis, lumbar region with neurogenic claudication: (2) Ambulatory dysfunction: Plan 1. Discussed with the patient his MRI results and correlation to his symptoms. Suspect his pain is secondary to his lumbar spinal stenosis at L4-5. We discussed the typical treatment of lumbar spinal stenosis being epidural steroid injections, physical therapy, medication management. Do not see any neurosurgical red flags at this time. 2. After discussion patient declines epidural steroid injection as he is " leery about needles in his back." Hospitalist informed so that they may bridge him correctly with his warfarin. 3. Recommend utilization of gabapentin 300 mg p.o. twice daily may increase to 3 times daily if needed. Orders are written 4. Recommend utilization of Cymbalta 30 mg p.o. every morning to augment descending pain regulatory pathways. Orders are written 5. Recommend physical therapy for overall conditioning and learning about proper back protective techniques. 6. Patient is welcome to follow-up at the [facility] pain management office if he wishes to should he fail conservative measures and wished to consider epidural steroid injections. This may be performed as an outpatient. Please call with any questions, pain management will sign off. History of Present Illness Attending Physician: Verna Tony MD History of Present Illness 64-year-old male with approximately 3-week history of 50% axial lumbar to 50% left L4 radicular symptoms to the level of the ankle. He denies any inciting event as to the etiology of his pain. He reports pain ranges between 2-8 out of 10 currently 2 out of 10 characterizes stinging tingling stabbing. He has a history of diabetes type 2 and feels he may additionally have some peripheral diabetic neuropathy in his feet as he comments on pain and paresthesias in a stocking-like distribution bilaterally. He denies any bowel or bladder incontinence, motor weakness, foot drop, fever, chills, saddle anesthesia. He notes that he ambulates cautiously due to concerns over perceived leg weakness. Additional medical history involves a mechanical aortic valve on chronic warfarin. He utilized warfarin 2.5 mg p.o. x 1 this a.m. INR 1.2 currently. Previous interventions include oral prednisone, rest, heat, ice. Pain management was consulted for possible epidural steroid injection. Pain Assessment Full Body Front + Back: 2 1. 2. [facility] Combined Pain Scale: 2-Minimal - Able to engage in pleasures of life with some interference Allergies Allergy/AdvReac Type Severity Reaction Status Date / Time erythromycin base Allergy Intermediate Abdominal Verified 05/07/24 21:28 Pain Home Medications Medication Instructions Recorded Confirmed Type ketorolac 10 mg tablet 10 mg PO BID PRN pain #10 tabs 05/26/24 06/03/24 Rx aspirin 81 mg tablet,delayed 81 mg PO DAILY #30 tabs 06/02/24 06/03/24 Rx release cyclobenzaprine 5 mg tablet 5 mg PO TID PRN muscle spasm #30 06/02/24 06/03/24 Rx tabs insulin NPH-regular 70-30 U-100 33 unit (0.33 mL) subcut BID #15 mL 06/02/24 06/03/24 Rx insulin 100 unit/mL subcutaneous pen (Novolin 70-30 FlexPen U-100 Insulin) omeprazole 20 mg capsule,delayed 20 mg PO DAILYBB #30 caps 06/02/24 06/03/24 Rx release pen needle, diabetic 32 gauge x #50 ea 06/02/24 Rx " (Pen Needle) rosuvastatin 40 mg tablet 40 mg PO QAM #30 tabs 06/02/24 06/03/24 Rx warfarin 2.5 mg tablet 2.5 mg PO DAILY@1600 30 days #30 06/02/24 06/03/24 Rx tabs Patient History Medical History (Updated 06/03/24 @ 14:46 by Jailene Santacruz DO) GERD (gastroesophageal reflux disease) ILD (interstitial lung disease) H/O TIA (transient ischemic attack) and stroke Stroke-like episode - History of TIA vs vertigo per cardio records 11/2021 (on Plavix) - 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 Repeat head CTA 08/2022 was unremarkable and no left ICA aneurysm identified Hypertension Hyperlipidemia PFO (patent foramen ovale) Small per 11/2021 [facility] imaging per cardio records Barretts esophagus Per records Gallbladder sludge reason for upcoming procedure Arthritis, gouty Hx of kidney disease PER PATIENT, ACUTE KIDNEY DISEASE 05/2022>WNL CURRENTLY GERD (gastroesophageal reflux disease) "silent/mild" Diabetes mellitus, type 2 Hx of pancreatitis HOSPITALIZED 05/2022>DKA and acute pancreatitis Aortic valve stenosis Severe per 05/2022 ECHO (PK 0.78-1.0cm2; AV mean PG 23.2mmHg; AV max velocity 3.684m/s) Chronic obstructive pulmonary disease MILD>NO INHALERS PER PATIENT Surgical History H/O mechanical aortic valve replacement Nausea and vomiting after administration of anesthetic agent H/O arthroscopic knee surgery + GANGLION CYST REMOVED>RT History of esophagogastroduodenoscopy (EGD) History of colonoscopy History of tooth extraction History of tonsillectomy and adenoidectomy History of cataract surgery RT/LEFT History of foot surgery RT History of carpal tunnel surgery LEFT Family History Other Diabetes Heart disease No family history of adverse response to anesthesia Social History Smoking Status: Current every day smoker Tobacco Type: Cigarettes Cigarettes Per Day: 4 CIG DAILY>ADVISED; Second Hand Exposure: No; Do You Dip or Chew Tobacco: No; Hx Alcohol Use: No Hx Substance Use: No Preferred Language: Tamazight Communication Ability: Effective Logging 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 Recent memory appears grossly intact Eyes: Pupils are equally round and reactive to light with normal size pupils, eyelids appear normal Ear, nose, mouth, and throat: Moist nasal and oral membranes, lips and tongues appear normal, no external ear abnormalities are noted Neck: The trachea is midline without deviation and no thyromegaly is noted Respiratory: Normal respiratory effort without distress, no audible wheezes or rhonchi CV: Normal S1 and S2, warm distal extremities with 2+ dorsalis pedis pulses bilaterally Chest: Deferred GI/abdomen: Non-tender without guarding Musculoskeletal: Head is normocephalic and atraumatic, gait not observed the patient is able to move freely within his bed. Cervical: Lordotic curve: Normal Range of motion is normal with extension, flexion, side-bending, rotation Strength: Strength is grossly equal bilaterally with 5 out of 5 strength in all planes Lumbar: Lordotic curve: Loss of lumbar the doses Range of motion is decreased in all planes Tenderness: Moderate tender over the axial midline L4-S1 Facet provocation: Marginally positive bilaterally Straight leg raise: Negative on the right positive on the left Step-off injuries: None Strength: Strength is equal bilaterally with 5 out of 5 strength in all planes Sensation of lower extremities: Intact bilaterally Deep tendon reflexes: Rated at 1+ in bilateral L4 and S1 Myofascial spasm: Minimal lumbar spasm. No discrete trigger points noted Greater trochanters: Nontender bilaterally Sacroiliac joints: Minimally tender bilaterally Pathologic reflexes noted: None Skin: No rashes, lesions, ulcers, or induration noted Neuro: No nystagmus noted, the tongue is midline, the patient is able to rotate their head bilaterally : Deferred Results (Pain Clinic) Diagnostic Review MRI: non enhanced, reports reviewed and findings discussed with patient MRI Findings: 06/03/24 MRI OF THE LUMBAR SPINE WITHOUT CONTRAST CLINICAL HISTORY: Low back pain, left leg weakness COMPARISON STUDY: Lumbar spine MRI December 02, [address] May 28, 2024. TECHNIQUE: Utilizing a 1.5 Nikkie magnet and dedicated coil, multiplanar, multiecho imaging of the lumbar spine was performed without IV contrast. FINDINGS: For purposes of numbering on this exam, the L5-S1 disc space is assigned to axial image 28 of 31. Straightening of the lumbar lordosis is unchanged. There are no lumbar spine fractures. There is no marrow edema or marrow replacement. No intracanalicular mass or fluid collection is present. Conus terminates at the upper L2 level. Paravertebral soft tissues are unremarkable. The appearance of the lumbar spine is similar to MRI of December 02, 2021. L1-2: The central canal and neural foramen are patent. L2-3: The central canal and neural foramen are patent. There is mild facet arthrosis. L3-4: There is mild disc bulge with mild facet arthrosis and ligamentous hypertrophy. There is no significant central canal stenosis. Mild bilateral neural foraminal stenosis is similar to previous MRI. L4-5: There is moderate facet arthrosis. There is mild disc bulge. Ligamentous hypertrophy is present. There is no significant central canal stenosis. Moderate bilateral neural foraminal stenosis is unchanged. L5-S1: The central canal is patent. Mild bilateral neural foraminal stenosis is unchanged. IMPRESSION: 1. No acute process within the lumbar spine. No significant change since MRI December 02, 2021. 2. Mild to moderate multilevel degenerative changes within the lumbar spine. No signal and central canal stenosis. Multilevel neural foraminal stenosis, as above.
--- NOTE | 2024-06-03 15:03 | Pharmacy Report ---
Pharmacy Glycemic Short Note 2 - Date of Service June 03, 2024 - Glycemic Short BSG Results (Last 24 hours): 06/03/24 06/03/24 08:17 12:47 Glucose 243 H POC Glucose 76 OUTPATIENT ANTIDIABETIC REGIMEN: * Novolin 70/30 33 units SQ bid * metformin 500mg po bid HbA1c 13.8% on 05/29/24 ASSESSMENT: * 64 year old male was just discharged from this facility last evening but returned today for left hip pain, left leg weakness, and ambulatory dysfunction. * Per the patient, he last had 33 units of novolin 70/30 this morning at 0400. * BSG on admit was 243mg/dL and this afternoon was 76mg/dL. No additional basal insulin will be given now. * Patient did receive 8mg iv dexamethasone this afternoon, so anticipate that his BSG will start to trend up as it did the previous admission with steroids present. An NPH insulin scale (0-10 units) was added for this evening incase his BSGs start to rise tonight. * Bolus insulin with parameters similiar to his previous admission was ordered to start with dinner tonight. PLAN FOR INPATIENT GLYCEMIC CONTROL: * Hold outpatient medications * Basal insulin * Novolin N scale at HS ( hold for BSG < 140, 5 units for bsg 140-180, 10 units for bsg > 180), will reassess dose in the AM * Bolus insulin * NovoLog per scale ACHS or Q6hrs while NPO * Goal Range: Low 110 mg/dL - High 140 mg/dL * Correction Factor: 20 mg/dL/unit * Nutritional / Prandial insulin per carb ratio of 1 unit per 6 grams CHO consumed
[2024-06-03] MEDS: HEPARIN SODIUM/DEXTROSE 25,000 UNITS/500 ML BAG IV SCH (15:09)
[2024-06-03] MEDS: HEPARIN SOD (PORCINE) 1000 UNIT/ML IV ONE (15:09)
[2024-06-03] MEDS: INSULIN ASPART PER UNIT CHARGE SC SCH ×2 (15:10→17:24)
[2024-06-03] MEDS: ACETAMINOPHEN 500 MG TAB PO SCH (15:18)
[2024-06-03] MEDS: WARFARIN SOD 2.5 MG TAB PO SCH (15:26)
[2024-06-03] MEDS: ENOXAPARIN 80 MG/0.8 ML SYR SQ SCH (15:27)
[2024-06-03] MEDS ORDERED: WARFARIN SOD 5 MG TAB PO SCH (16:00)
[2024-06-03] MEDS: CARBOHYDRATES FOR HYPOGLYCEMIA PO PRN (16:52)
[2024-06-03] MEDS: DICLOFENAC SOD 1% GEL 100 GM TUBE EXT SCH (17:25)
[2024-06-03] MEDS: PNEUMOCOCCAL VACCINE (PCV20) 20-VAL CONJ-DIP CRM/PF 0.5 ML SYR IM ONE (19:01)
[2024-06-03] MEDS ORDERED: LANTUS PER UNIT CHARGE SQ SCH (21:00)
[2024-06-03] MEDS: GABAPENTIN 300 MG CAP PO SCH (21:07)
[2024-06-03] MEDS: INSULIN HUMAN NPH SC SCH (21:07)
[2024-06-04] MEDS: PANTOprazole 40 MG TAB PO SCH (05:35)
[2024-06-04 08:40] LABS: BUN Creatinine Ratio 16.5 (10-20); Calcium 8.9 mg/dl (8.6-10.3); Creatinine Clr Calc Pharmacy 74.4 ml/min
[2024-06-04 08:42] LABS: Hematocrit (blood only) 43.2 % (42.0-52.0); Hemoglobin 14.5 g/dl (14.0-18.0); Mean Corpuscular Hemoglobin 30.2 pg (25.0-34.0); Mean Corpuscular Hgb Conc 33.6 g/dL (32.0-36.0); Mean Platelet Volume 10.7 fL (9.4-12.4); Platelet Count 208 K/uL (130-400); RDW Coefficient of Variation 14.7 % (11.5-14.5); RDW Standard Deviation 48.2 fL (36.4-46.3); White Blood Count 9.48 K/ul (4.8-10.8)
[2024-06-04 08:47] LABS: INR 1.1 (0.9-1.1)
[2024-06-04] MEDS: amLODIPine BESYLATE 5 MG TAB PO SCH (09:06)
[2024-06-04] MEDS: ASPIRIN 81 MG ECTAB PO SCH (09:06)
[2024-06-04] MEDS: ROSUVASTATIN CALCIUM 20 MG TAB PO SCH (09:06)
[2024-06-04] MEDS: DULoxetine HCL 30 MG CAP PO SCH (09:07)
--- NOTE | 2024-06-04 10:17 | Hospitalist Progress Note ---
Date of Service June 04, 2024 Assessment & Plan (1) Ambulatory dysfunction: (2) Spinal stenosis, lumbar region with neurogenic claudication: (3) Lumbar radiculitis: Plan Derek Tristan is a 64y/o M with PMHx significant for type 2 diabetes, hyperlipidemia, interstitial lung disease/COPD, pulmonary nodules, allergic rhinitis, hypertension, aortic valve stenosis s/p mechanical valve replacement, history of TIA, valvular insufficiency, GERD, gout arthropathy, personal history of alcoholism and history of pancreatitis who presented to the ED on 05/29/2024 secondary to ongoing left hip pain. Ambulatory dysfunction lumbar spinal stenosis with neurogenic claudication lumbar radiculitis patient readmitted to medical he was seen and evaluated by pain management yesterday who offered him an ELVIE, he graciously declined. He now is reconsidering and wishing to pursue this option I spoke to Dr. Santacruz and b/c he got the Lovenox inj he is unable to undergo ELVIE and therefore will need to be seen in the outpt clinic. I was able to set him up with an appt on 07/07/24 @ 1030. (appt placed in DC instructions) At this time recommendation is conservative tx with PT/OT, ? 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 and feel this may be unrealistic at this given time until his symptoms have improved; otherwise he will continue to aggravate his sx T2DM- uncontrolled last admission a1c was 13.8, prior to hospitalization he was noncompliant with medication due to lack of insurance currently he is maintaining on Novolin 70/30 insulin as OP glycemic on board assisting in glucose management received IV Decadron yesterday, trialed course of steroids last admission, given uncontrolled T2DM want to limit steroids at this point PAF Hx of Mechanical AVR - INR Goal 1.5-2.0 INR 1.1 on admission, currently on lovenox bridge previous warfarin dosing was 2.5mg, currently increased to 5mg with first dose on 06/03 monitor INR ( previous outpt dosing per [facility] revealed 12.5mg MOFR and 10mg all other days) Increase warfarin to 10mg daily, he will need close MTM follow up at discharge HTN: pt bp elevated yesterday, he was started on amlodipine, outpt chart review revealed pt previously on myrtle/arb, will d/c amlodipine in favor of lisinopril 5mg (on 4$ list at [facility] as pt has hx of med noncompliance due to cost), he also was on metoprolol in past but currently not on this HLD: continue statin Hx of TIA: continue statin/warfarin/Asa DVT ppx: lovenox/warfarin FULL CODE PCP: Anabel Ortiz DIspo: admit to medical, PT/OT to determine if qualifies for rehab? I spent a total of 46 minutes reviewing notes, outpatient records, labs, medication, coordinating, documenting and providing care for this patient excluding time spent in the performance of separately billed services. Admission and Anticipated Discharge Date Admission Date: June 03, 2024 Supervising Physician Co-Signing Physician Notes Pt was seen and examined by myself, Margot Sanchez MD on the day of service. Care was coordinated with Yusra Lewis PA-C. 64-year-old male seen in the AM. Notes that his pain was controlled at that time. Stated that he could lift his leg higher than he was able to previously. Orthospine consult today, appreciate further recs pain control as needed- encouraged to use as needed Flexeril. Also given a one-time dose of IV Dilaudid. Patient notes that oral oxycodone does not work for his pain. To have epidural injection done with pain management Otherwise as above I spent a total [id number] coordinating, documenting, and providing care for this patient excluding time spent in the performance of separately billed services Subjective "I wish my leg would just make up its mind." He reports having better ROM in bed today. He reports after he was discharged he returned to work the next day. 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 He also reports chronic numbness to the L foot over the last several months. He states the pain is stabbing and comes and goes. It is worse with movement. He called EMS to bring him to ED b/c he did not have a car and his son was working. On day of admission pt was seen by pain management clinic and offered an ELVIE; however pt declined stating, "i don't want needles in my back." After further thought he feels this may help him get back to work fast as he has been out of work for 2 weeks. He denies f/c/s, chest pain, sob, n/v/d. Review of Systems Review of Systems: All systems reviewed & are unremarkable except as noted in HPI & below Physical Exam Physical Exam: Gen: WD/WN, NAD, A&O x3 HEENT: Normocephalic, atraumatic, conjunctivae moist, sclerae anicteric, mucous membranes moist. Lung: Clear to Auscultation bilaterally, no wheezes/rales/rhonchi Heart: Regular rate, regular rhythm, no murmurs, rubs, or gallops Abdomen: Soft, NT, ND +BS x 4 Extremities: No edema, + active/passive ROM to b/l lower ext. + Pain with resistance testing with hip flex/ext, negative SLR, no pain to palpation of L lateral hip region, strength intact. Skin: Warm, no rash, negative turgor. Results & Data Results & Data Vital Signs (Past 12 Hours) Vital Signs Temp Pulse Resp BP Pulse Ox O2 Del Method 06/04/24 07:08 36.5 C 79 16 139/69 97 Room Air Laboratory Results Short CBC 06/04/24 Range/Units 08:01 WBC 9.48 (4.8-10.8) K/ul Hgb 14.5 (14.0-18.0) g/dl Hct 43.2 (42.0-52.0) % Plt Count 208 (130-400) K/uL BMP 06/04/24 08:01 Sodium 141 Potassium 5.0 Chloride 109 H Carbon Dioxide 28 BUN 17 Creatinine 1.03 Glucose 187 H Calcium 8.9 I have independently reviewed and interpreted patient's labs including CBC, BMP, PT/INR Medications Administered Current Inpatient Medications Acetaminophen (Acetaminophen 500 Mg Tab) 1,000 mg PO Q8H NELI Stop: 07/03/24 13:59 Last Admin: 06/04/24 05:35 Dose: 1,000 mg Amlodipine Besylate (Amlodipine Besylate 5 Mg Tab) 5 mg PO QAM NELI Stop: 07/04/24 08:59 Last Admin: 06/04/24 09:06 Dose: 5 mg Aspirin (Aspirin 81 Mg Ectab) 81 mg PO DAILY NELI Stop: 07/04/24 08:59 Last Admin: 06/04/24 09:06 Dose: 81 mg Cyclobenzaprine HCl (Cyclobenzaprine Hcl 5 Mg Tab) 5 mg PO TID PRN PRN Reason: muscle spasm Stop: 07/03/24 12:43 Dextrose (Dextrose 50% 50 Ml Syringe) 25 - 50 ml IV UD PRN; Protocol PRN Reason: Hypoglycemia Protocol Stop: 07/03/24 12:43 Diclofenac Sodium (Diclofenac Sod 1% Gel 100 Gm Tube) 2 gm EXT QID NELI; Protocol Stop: 07/03/24 16:59 Last Admin: 06/04/24 09:06 Dose: 2 gm Duloxetine HCl (Duloxetine Hcl 30 Mg Cap) 30 mg PO QAM [facility] Stop: 07/04/24 08:59 Last Admin: 06/04/24 09:07 Dose: 30 mg Enoxaparin Sodium (Enoxaparin 80 Mg/0.8 Ml Syr) 70 mg SQ BID NELI Stop: 07/03/24 14:59 Last Admin: 06/04/24 05:35 Dose: 70 mg Gabapentin (Gabapentin 300 Mg Cap) 300 mg PO BID NELI Stop: 07/03/24 20:59 Last Admin: 06/04/24 09:07 Dose: 300 mg Glucagon (Glucagon For Inj 1 Mg Vial) 1 mg SQ UD PRN; Protocol PRN Reason: Hypoglycemia Protocol Stop: 07/03/24 12:43 Glucose (Glucose 40% Gel 15 Gm Tube) 15 - 30 gm PO UD PRN; Protocol PRN Reason: Hypoglycemia Protocol Stop: 07/03/24 12:43 Glucose (Glucose 10 Tab/Tube) 4 - 8 tab PO UD PRN; Protocol PRN Reason: Hypoglycemia Protocol Stop: 07/03/24 12:43 Insulin Aspart (Insulin Aspart Per Unit Charge) 0 units SC ACHS NELI Stop: 07/03/24 16:29 Last Admin: 06/04/24 09:05 Dose: 15 units Miscellaneous (Carbohydrates For Hypoglycemia ) 15 - 30 gm PO UD PRN PRN Reason: Hypoglycemia Protocol Stop: 07/03/24 12:43 Last Admin: 06/03/24 16:52 Dose: 15 gm Miscellaneous Information (Pharmacy Glycemic Mgmt Consult) 1 each N/A UD PRN PRN Reason: Consult Stop: 07/03/24 12:43 Oxycodone HCl (Oxycodone Hcl Ir 5 Mg Tab (Immediate Release)) 5 mg PO Q6H PRN PRN Reason: Pain Stop: 06/17/24 13:04 Pantoprazole Sodium (Pantoprazole 40 Mg Tab) 40 mg PO DAILYBB [facility] Stop: 07/04/24 06:29 Last Admin: 06/04/24 05:35 Dose: 40 mg Rosuvastatin Calcium (Rosuvastatin Calcium 20 Mg Tab) 40 mg PO QAM [facility] Stop: 07/04/24 08:59 Last Admin: 06/04/24 09:06 Dose: 40 mg Warfarin Sodium (Warfarin Sod 5 Mg Tab) 5 mg PO DAILY@1600 [facility] Stop: 07/04/24 15:59
[2024-06-04] MEDS: INSULIN HUMAN NPH SC ONE (10:53)
--- NOTE | 2024-06-04 13:23 | Pharmacy Report ---
Pharmacy Glycemic Short Note 2 - Date of Service June 04, 2024 - Glycemic Short BSG Results (Last 24 hours): 06/03/24 06/03/24 06/03/24 16:48 17:05 20:35 Glucose POC Glucose 65 L* 106 H 190 H 06/04/24 06/04/24 06/04/24 08:01 08:08 11:41 Glucose 187 H POC Glucose 172 H 205 H OUTPATIENT ANTIDIABETIC REGIMEN: * Novolin 70/30 33 units SQ bid * metformin 500mg po bid HbA1c 13.8% on 05/29/24 ASSESSMENT: 06/04 * Patient received 55 total units of insulin yesterday (33 were basal--23 from home 70/30 and 10 units NPH) * Fasting BSG was 172mg/dL this morning. Novolin N was started at 12 units this morning and will be continued BID--Last admission he was fairly stable on 25 units of Lantus daily, but will try him on NPH to more closely match the 70/30 insulin that he was using at home. * Bolus insulin parameters will be continued as ordered. 06/03 * 64 year old male was just discharged from this facility last evening but returned today for left hip pain, left leg weakness, and ambulatory dysfunction. * Per the patient, he last had 33 units of novolin 70/30 this morning at 0400. * BSG on admit was 243mg/dL and this afternoon was 76mg/dL. No additional basal insulin will be given now. * Patient did receive 8mg iv dexamethasone this afternoon, so anticipate that his BSG will start to trend up as it did the previous admission with steroids present. An NPH insulin scale (0-10 units) was added for this evening incase his BSGs start to rise tonight. * Bolus insulin with parameters similiar to his previous admission was ordered to start with dinner tonight. PLAN FOR INPATIENT GLYCEMIC CONTROL: * Hold outpatient medications * Basal insulin * Novolin N 12 units SQ bid * Bolus insulin * NovoLog per scale ACHS or Q6hrs while NPO * Goal Range: Low 110 mg/dL - High 140 mg/dL * Correction Factor: 20 mg/dL/unit * Nutritional / Prandial insulin per carb ratio of 1 unit per 6 grams CHO consumed
[2024-06-04] MEDS ORDERED: WARFARIN SOD 5 MG TAB PO SCH (16:00)
[2024-06-04] MEDS: oxyCODONE HCL IR 5 MG TAB (IMMEDIATE RELEASE) PO PRN (16:15)
[2024-06-04] MEDS: WARFARIN SOD 10 MG TAB PO SCH (16:17)
[2024-06-04] MEDS: INSULIN HUMAN NPH SC SCH (17:27)
[2024-06-04] MEDS: CYCLOBENZAPRINE HCL 5 MG TAB PO PRN (18:01)
[2024-06-04] MEDS: HYDROmorphone INJ 0.5 MG/0.5 ML SYR IV STA (18:39)
[2024-06-05 06:35] LABS: Basophils # (auto) 0.04 K/uL (0.00-0.20); Basophils % (auto) 0.5 %; Eosinophils # (auto) 0.18 K/uL (0.00-0.50); Eosinophils % (auto) 2.1 %; Hematocrit (blood only) 43.2 % (42.0-52.0); Hemoglobin 14.8 g/dl (14.0-18.0); Immature Granulocytes # (auto) 0.05 K/uL (0.01-0.20); Immature Granulocytes % (auto) 0.6 %; Lymphocytes # (auto) 2.42 K/uL (1.20-3.40); Lymphocytes % (auto) 27.9 %; Mean Corpuscular Hemoglobin 30.6 pg (25.0-34.0); Mean Corpuscular Hgb Conc 34.3 g/dL (32.0-36.0); Mean Corpuscular Volume 89.4 fL (80.0-100.0); Mean Platelet Volume 10.4 fL (9.4-12.4); Monocytes # (auto) 0.66 K/uL (0.11-0.59); Monocytes % (auto) 7.6 %; Neutrophils # (auto) 5.33 K/uL (1.40-6.50); Neutrophils % (auto) 61.3 %; Platelet Count 189 K/uL (130-400); RDW Coefficient of Variation 14.6 % (11.5-14.5); RDW Standard Deviation 47.4 fL (36.4-46.3); Red Blood Count 4.83 M/uL (4.70-6.10); White Blood Count 8.68 K/ul (4.8-10.8)
[2024-06-05 06:41] LABS: INR 1.2 (0.9-1.1); Prothrombin Time 12.6 Seconds (9.0-12.0)
[2024-06-05] MEDS: INSULIN HUMAN NPH SC SCH (09:31)
[2024-06-05] MEDS: lisinopril 5 MG TAB PO SCH (09:36)
--- NOTE | 2024-06-05 12:06 | Hospitalist Progress Note ---
Date of Service June 05, 2024 Assessment & Plan (1) Ambulatory dysfunction: (2) Spinal stenosis, lumbar region with neurogenic claudication: (3) Lumbar radiculitis: Plan Derek Tristan is a 64y/o M with PMHx significant for type 2 diabetes, hyperlipidemia, interstitial lung disease/COPD, pulmonary nodules, allergic rhinitis, hypertension, aortic valve stenosis s/p mechanical valve replacement, history of TIA, valvular insufficiency, GERD, gout arthropathy, personal history of alcoholism and history of pancreatitis who presented to the ED on 05/29/2024 secondary to ongoing left hip pain. Ambulatory dysfunction lumbar spinal stenosis with neurogenic claudication lumbar radiculitis patient readmitted to medical he was seen and evaluated by pain managementwho offered him an ELVIE, he graciously declined. He now is reconsidering and wishing to pursue this option Previous provider discussed it with Dr. Santacruz and b/c he got the Lovenox inj he is unable to undergo ELVIE and therefore will need to be seen in the outpt clinic. -He has been set him up with an appt on 07/07/24 @ 1030. (appt placed in DC instructions) At this time recommendation is conservative tx with PT/OT, ? 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 Also in setting of warfarin use PCP followup after dc PAF Hx of Mechanical AVR - INR Goal 1.5-2.0 INR 1.1 on admission, currently on lovenox bridge previous warfarin dosing was 2.5mg, currently increased to 5mg with first dose on 11/26 monitor INR ( previous outpt dosing per [facility] revealed 12.5mg MOFR and 10mg all other days) Increase warfarin to 10mg daily, he will need close MTM follow up at discharge Continue to monitor INR HTN: pt bp elevated yesterday, he was started on amlodipine, outpt chart review revealed pt previously on myrtle/arb, will d/c amlodipine in favor of lisinopril 5mg (on 4$ list at [facility] as pt has hx of med noncompliance due to cost), he also was on metoprolol in past but currently not on this HLD: continue statin Hx of TIA: continue statin/warfarin/Asa DVT ppx: lovenox/warfarin FULL CODE PCP: Anabel Ortiz DIspo: admit to medical, PT/OT to determine if qualifies for rehab? Admission and Anticipated Discharge Date Admission Date: June 03, 2024 Subjective patient was seen in the a.m. Notes that the pain was still present and at that time was not having much pain Had not yet been evaluated by orthospine Review of Systems Review of Systems: All systems reviewed & are unremarkable except as noted in Subjective Physical Exam Physical Exam: General: Alert, oriented. No acute distress Skin: No noted rashes or bruises Psych: Appropriate mood and affect Neuro: straight leg raise on the left negative HEENT: NC/AT CV: RRR Resp: Breath sounds clear bilaterally, no increased effort of breathing Abdomen:soft, nontender Extremities: No edema in lower extremities bilaterally. Results & Data Results & Data Vital Signs (Past 12 Hours) Vital Signs Temp Pulse Resp BP Pulse Ox O2 Del Method 06/05/24 07:08 36.8 C 83 18 170/77 H 97 Room Air
[2024-06-05 14:11] VITALS: O2SAT 96
--- NOTE | 2024-06-05 14:34 | Pharmacy Report ---
Pharmacy Glycemic Short Note 2 - Date of Service June 05, 2024 - Glycemic Short BSG Results (Last 24 hours): 06/04/24 06/04/24 06/05/24 16: 19:35 07:47 POC Glucose 76 73 126 H 06/05/24 06/05/24 11: 11:29 POC Glucose 360 H* 333 H* OUTPATIENT ANTIDIABETIC REGIMEN: * Novolin 70/30 33 units SQ bid * metformin 500mg po bid HbA1c 13.8% on 05/29/24 ASSESSMENT: 06/05 * Patient received 62 total units of insulin yesterday (24 were basal). Blood sugars in 70s before dinner and bed last night, therefore empirically reduced CR and NPH today, but then patient had BG of 330mg/dl prior to lunch today. * Will continue reduced NPH dose, but tighten NovoLog parameters with breakfast only at this time. * Consider increasing AM NPH dose only in the future if patient continues to have higher BG in AM/Lunch times. 06/04 * Patient received 55 total units of insulin yesterday (33 were basal--23 from home 70/30 and 10 units NPH) * Fasting BSG was 172mg/dL this morning. Novolin N was started at 12 units this morning and will be continued BID--Last admission he was fairly stable on 25 units of Lantus daily, but will try him on NPH to more closely match the 70/30 insulin that he was using at home. * Bolus insulin parameters will be continued as ordered. 06/03 * 64 year old male was just discharged from this facility last evening but returned today for left hip pain, left leg weakness, and ambulatory dysfunction. * Per the patient, he last had 33 units of novolin 70/30 this morning at 0400. * BSG on admit was 243mg/dL and this afternoon was 76mg/dL. No additional basal insulin will be given now. * Patient did receive 8mg iv dexamethasone this afternoon, so anticipate that his BSG will start to trend up as it did the previous admission with steroids present. An NPH insulin scale (0-10 units) was added for this evening incase his BSGs start to rise tonight. * Bolus insulin with parameters similiar to his previous admission was ordered to start with dinner tonight. PLAN FOR INPATIENT GLYCEMIC CONTROL: * Hold outpatient medications * Basal insulin * Novolin N 10 units SQ BID * Bolus insulin * NovoLog per scale ACHS or Q6hrs while NPO * Goal Range: Low 110 mg/dL - High 140 mg/dL * Correction Factor: Breakfast: 15 mg/dL/unit, all other times: 20 mg/dL/unit * Nutritional / Prandial insulin per carb ratio at Breakfast: 1 unit per 4 grams CHO consumed, all other times: 1 unit per 7 grams CHO consumed
[2024-06-05] MEDS: INSULIN ASPART PER UNIT CHARGE SC SCH (17:23)
[2024-06-05] MEDS: GABAPENTIN 300 MG CAP PO SCH (21:00)
[2024-06-06] MEDS: INSULIN ASPART PER UNIT CHARGE SC SCH ×2 (01:09→08:39)
[2024-06-06 05:13] VITALS: BP 128/70; RESP 17; TEMP 97.7
[2024-06-06 06:04] LABS: Hematocrit (blood only) 44.5 % (42.0-52.0); Hemoglobin 15.1 g/dl (14.0-18.0); Mean Corpuscular Hemoglobin 30.4 pg (25.0-34.0); Mean Corpuscular Hgb Conc 33.9 g/dL (32.0-36.0); Mean Corpuscular Volume 89.7 fL (80.0-100.0); Mean Platelet Volume 10.6 fL (9.4-12.4); Platelet Count 199 K/uL (130-400); RDW Coefficient of Variation 14.6 % (11.5-14.5); RDW Standard Deviation 47.5 fL (36.4-46.3); Red Blood Count 4.96 M/uL (4.70-6.10); White Blood Count 6.92 K/ul (4.8-10.8)
[2024-06-06 06:19] LABS: Anion Gap 6 (3-11); BUN Creatinine Ratio 17.3 (10-20); Blood Urea Nitrogen 19 mg/dl (6-23); Calcium 8.8 mg/dl (8.6-10.3); Carbon Dioxide 27 mmol/L (21-32); Chloride 106 mmol/L (98-107); Creatinine Clr Calc Pharmacy 69.6 ml/min; Glucose 154 mg/dl (70-99(Fasting)); Potassium 4.4 mmol/L (3.5-5.1); Sodium 139 mmol/L (136-145)
[2024-06-06 06:25] LABS: INR 1.7 (0.9-1.1); Prothrombin Time 17.8 Seconds (9.0-12.0)
--- NOTE | 2024-06-06 08:02 | Pharmacy Report ---
Pharmacy Glycemic Short Note 2 - Date of Service June 06, 2024 - Glycemic Short BSG Results (Last 24 hours): 06/05/24 06/05/24 06/05/24 07:47 11: 11: Glucose POC Glucose 126 H 360 H* 333 H* 06/05/24 06/05/24 06/05/24 15:54 15:55 16:14 Glucose POC Glucose 41 L* 41 L* 56 L* 06/05/24 06/05/24 06/05/24 16:16 16:31 21:01 Glucose POC Glucose 58 L* 103 H 116 H 06/06/24 06/06/24 06/06/24 00:40 05:09 05:22 Glucose 154 H POC Glucose 181 H 139 H 06/06/24 06/06/24 06:12 07:29 Glucose POC Glucose 189 H 180 H OUTPATIENT ANTIDIABETIC REGIMEN: * Novolin 70/30 33 units SQ bid * metformin 500mg po bid HbA1c 13.8% on 05/29/24 ASSESSMENT: 06/06 * Patient received 43 total units of insulin yesterday (10 were basal). Fasting at goal, but then BG increase to 330mg/dl prior to lunch, and then fell to 41mg/dl prior to dinner after 19 units of NovoLog correctional + prandial insulin. Dinner NPH was held. * Loosen CF and move NPH to have larger dose with breakfast and smaller dose with dinner to prevent hypoglycemia. * Breakfast NovoLog parameters tightened yesterday to prevent such an increase in BG from breakfast to lunch. 06/05 * Patient received 62 total units of insulin yesterday (24 were basal). Blood sugars in 70s before dinner and bed last night, therefore empirically reduced CR and NPH today, but then patient had BG of 330mg/dl prior to lunch today. * Will continue reduced NPH dose, but tighten NovoLog parameters with breakfast only at this time. * Consider increasing AM NPH dose only in the future if patient continues to have higher BG in AM/Lunch times. 06/04 * Patient received 55 total units of insulin yesterday (33 were basal--23 from home 70/30 and 10 units NPH) * Fasting BSG was 172mg/dL this morning. Novolin N was started at 12 units this morning and will be continued BID--Last admission he was fairly stable on 25 units of Lantus daily, but will try him on NPH to more closely match the 70/30 insulin that he was using at home. * Bolus insulin parameters will be continued as ordered. 06/03 * 64 year old male was just discharged from this facility last evening but returned today for left hip pain, left leg weakness, and ambulatory dysfunction. * Per the patient, he last had 33 units of Novolin 70/30 this morning at 0400. * BSG on admit was 243mg/dL and this afternoon was 76mg/dL. No additional basal insulin will be given now. * Patient did receive 8mg iv dexamethasone this afternoon, so anticipate that his BSG will start to trend up as it did the previous admission with steroids present. An NPH insulin scale (0-10 units) was added for this evening incase his BSGs start to rise tonight. * Bolus insulin with parameters similar to his previous admission was ordered to start with dinner tonight. PLAN FOR INPATIENT GLYCEMIC CONTROL: * Hold outpatient medications * Basal insulin * Novolin N 12 units with breakfast, 6 units with dinner * Bolus insulin * NovoLog per scale ACHS or Q6hrs while NPO * Goal Range: Low 110 mg/dL - High 140 mg/dL * Correction Factor: Breakfast: 15 mg/dL/unit, all other times: 30 mg/dL/unit * Nutritional / Prandial insulin per carb ratio at Breakfast: 1 unit per 4 grams CHO consumed, all other times: 1 unit per 7 grams CHO consumed
[2024-06-06] MEDS: INSULIN HUMAN NPH SC SCH (08:40)
[2024-06-06 09:40] LABS: C Reactive Protein < 0.50 mg/dl (0-0.5)
--- NOTE | 2024-06-06 11:43 | Discharge Summary ---
Discharge Summary Date of Service June 06, 2024 Principal Dx & Hospital Course #1 = Principal Diagnosis (1) Ambulatory dysfunction: (2) Spinal stenosis, lumbar region with neurogenic claudication: (3) Lumbar radiculitis: Plan Derek Tristan is a 64y/o M with PMHx significant for type 2 diabetes, hyperlipidemia, interstitial lung disease/COPD, pulmonary nodules, allergic rhinitis, hypertension, aortic valve stenosis s/p mechanical valve replacement, history of TIA, valvular insufficiency, GERD, gout arthropathy, personal history of alcoholism and history of pancreatitis who presented to the ED on 05/29/2024 secondary to ongoing left hip pain. Ambulatory dysfunction Lumbar spinal stenosis with neurogenic claudication Lumbar radiculitis Pt presenting after being discharged on 06/03/24 he was seen and evaluated by pain management who offered him an Epidural spinal injection (ELVIE), he graciously declined. He now is reconsidering and wishing to pursue this option Previous provider discussed it with Dr. Santacruz and b/c he got the Lovenox injection he is unable to undergo ELVIE and therefore will need to be seen in the outpt clinic. -He has been set him up with an appt on 07/07/24 @ 1030. (appt placed in DC instructions) At this time recommendation is conservative tx with PT/OT Pain Management also recommended initiating gabapentin 300mg po BID, increased to TID as well as Cymbalta 30mg daily. Pt discharged with the same. Orthospine consulted, appreciate further recs. Case was discussed with Dr. Paris who reviewed patient's imaging and advised that there was no urgent treatment needed at this time. Please ensure close followup with ortho spine after discharge T2DM- uncontrolled last admission a1c was 13.8, prior to hospitalization he was noncompliant with medication due to lack of insurance currently he is maintaining on Novolin 70/30 insulin as OP glycemic on board assisting in glucose management received IV Decadron yesterday, trialed course of steroids last admission, given uncontrolled T2DM want to limit steroids at this point. Also in setting of warfarin use, increased risk of GI bleed. PCP followup after dc, consider MTM glycemic management referral. PAF Hx of Mechanical AVR - INR Goal 1.5-2.0 INR 1.1 on admission, was on lovenox bridge previous warfarin dosing was 2.5mg, increased to 10mg with first dose on 06/03 monitor INR ( previous outpt dosing per [facility] revealed 12.5mg Mon/Fri and 10mg all other days) Increase warfarin to 10mg daily, he will need close MTM follow up at discharge Continue to monitor INR, INR 1.7 on discharge. Pt advised to continue with home regimen after discharge. Will need close coumadin clinic monitoring after discharge HTN: pt's bp elevated, he was started on amlodipine, outpt chart review revealed pt previously on myrtle/arb, will d/c amlodipine in favor of lisinopril 5mg (on 4$ list at [facility] as pt has hx of med noncompliance due to cost), he also was on metoprolol in past but currently not on this Close PCP followup HLD: continue statin Hx of TIA: continue statin/warfarin/Asa Notes For Next Care Provider Please ensure close followup with ortho spine after discharge PCP followup after dc, consider MTM glycemic management referral. Will need close coumadin clinic monitoring after discharge Medication Changes From Visit Gabapentin 300mg TID Lisinopril 5mg daily Admission HPI Per Admitting Provider 64-year-old male with PMH DM type II, HLD, GERD, history of mechanical aortic valve replacement anticoagulated on Coumadin, and other problems listed below who presents to the ED for evaluation of left hip pain, left leg weakness, difficulty ambulating. History is obtained from the patient and review of outpatient PCP records. Patient recently admitted to [facility] 05/29 through 06/02 for management of left hip pain and hyperglycemia. Orthopedic spine evaluated the patient and felt as though patient's symptoms may be due to lumbar radiculopathy. Lumbar spine CT revealed mild spinal stenosis and posterior disc bulge and mild ligamentum flavum hypertrophy. Patient completed a course of prednisone while admitted. Patient reports that while at work this morning, he was walking and it felt as though his left leg was going to give out due to weakness. Patient reports ongoing left hip pain. Reports decreased sensation in the left foot. Denies bowel or bladder dysfunction. No fevers or chills. Denies chest pain shortness of breath. No lightheadedness, dizziness, diaphoresis, syncopal events. Denies abdominal pain, nausea, vomiting, diarrhea. No urinary symptoms. In the ED, patient had a left femur x-ray that was unremarkable for acute findings. Labs show subtherapeutic INR 1.1. Other labs unremarkable. Admission Exam Per Admitting Provider Constitutional: WD/WN, vitals as above no acute distress Eyes: PERRL, conjunctivae normal, anicteric sclerae ENMT: external ear and nose normal, oropharynx normal Respiratory: normal respiratory effort, lungs clear to auscultation Cardiovascular: Rate/Rhythm: regular rate and regular rhythm Vessels: normal peripheral pulses Extremities: no edema Gastrointestinal (Abdomen): normal bowel sounds, soft, nontender, no hepatosplenomegaly Musculoskeletal: LLE strength 4/5 Skin: no rashes, warm and dry Neurologic: PERRL, EOMI, accommodation nl, no face palsy, no dysarthria Psychiatric: A+Ox3, euthymic affect Discharge Exam General: Alert, oriented. No acute distress Skin: No noted rashes or bruises Psych: Appropriate mood and affect Neuro: straight leg raise on the left negative, able to move lower extremities without pain HEENT: NC/AT CV: RRR Resp: Breath sounds clear bilaterally, no increased effort of breathing Abdomen:soft, nontender Extremities: No edema in lower extremities bilaterally. Updated Medication List Medication Instructions Recorded Confirmed Type aspirin 81 mg tablet,delayed 81 mg PO DAILY #30 tabs 06/02/24 06/03/24 Rx release cyclobenzaprine 5 mg tablet 5 mg PO TID PRN muscle spasm #30 06/02/24 06/03/24 Rx tabs insulin NPH-regular 70-30 U-100 33 unit (0.33 mL) subcut BID #15 mL 06/02/24 06/03/24 Rx insulin 100 unit/mL subcutaneous pen (Novolin 70-30 FlexPen U-100 Insulin) omeprazole 20 mg capsule,delayed 20 mg PO DAILYBB #30 caps 06/02/24 06/03/24 Rx release pen needle, diabetic 32 gauge x #50 ea 06/02/24 Rx 5/32" (Pen Needle) rosuvastatin 40 mg tablet 40 mg PO QAM #30 tabs 06/02/24 06/03/24 Rx warfarin 2.5 mg tablet 2.5 mg PO DAILY@1600 30 days #30 06/02/24 06/03/24 Rx tabs gabapentin 300 mg capsule 300 mg PO TID #90 caps 06/06/24 Rx lisinopril 5 mg tablet (Zestril) 5 mg PO QAM #30 tabs 06/06/24 Rx Hospital Stay Data Consultations 06/03/24 10:37 ED Decision to Admit Stat 06/03/24 12:48 Consult Pain Management Routine 06/04/24 12:28 Consult Orthopedic Spine Surgery Routine Procedures Performed Operation Date: 06/04/24 07:30 <No data on this case meets the specified criteria> Diagnostic Imagining Performed 06/03/24 10:36 MR lumbar spine wo con Stat Femur X-Ray 06/03/24 08:08 XR femur LT 2V routine CLINICAL HISTORY: Left leg pain. COMPARISON: Pelvis CT May 28, 2024. Pelvis and left hip radiographs May 29, 2024. FINDINGS: There are no fractures within the left femur. There are no osseous lesions. There is mild to moderate left hip joint space narrowing with osteophytosis. There is no evidence for avascular necrosis of the left femoral head. IMPRESSION: 1. No fractures within the left femur. 2. Mild to moderate left hip osteoarthritis. ACT 112: Negative or not required by law. Electronically signed by: Cassius Perez M.D. 06/03/2024 8:48 AM Lumbar Spine MRI 06/03/24 10:36 MRI OF THE LUMBAR SPINE WITHOUT CONTRAST CLINICAL HISTORY: Low back pain, left leg weakness COMPARISON STUDY: Lumbar spine MRI December 02, [address] May 28, 2024. TECHNIQUE: Utilizing a 1.5 Nikkie magnet and dedicated coil, multiplanar, multiecho imaging of the lumbar spine was performed without IV contrast. FINDINGS: For purposes of numbering on this exam, the L5-S1 disc space is assigned to axial image 28 of 31. Straightening of the lumbar lordosis is unchanged. There are no lumbar spine fractures. There is no marrow edema or marrow replacement. No intracanalicular mass or fluid collection is present. Conus terminates at the upper L2 level. Paravertebral soft tissues are unremarkable. The appearance of the lumbar spine is similar to MRI of December 02, 2021. L1-2: The central canal and neural foramen are patent. L2-3: The central canal and neural foramen are patent. There is mild facet arthrosis. L3-4: There is mild disc bulge with mild facet arthrosis and ligamentous hypertrophy. There is no significant central canal stenosis. Mild bilateral neural foraminal stenosis is similar to previous MRI. L4-5: There is moderate facet arthrosis. There is mild disc bulge. Ligamentous hypertrophy is present. There is no significant central canal stenosis. Moderate bilateral neural foraminal stenosis is unchanged. L5-S1: The central canal is patent. Mild bilateral neural foraminal stenosis is unchanged. IMPRESSION: 1. No acute process within the lumbar spine. No significant change since MRI December 02, 2021. 2. Mild to moderate multilevel degenerative changes within the lumbar spine. No signal and central canal stenosis. Multilevel neural foraminal stenosis, as above. ACT 112: Negative or not required by law. Electronically signed by: Cassius Perez M.D. 06/03/2024 12:10 PM Discharge Instructions Given to Patient (Per Discharging Provider) Derek, You were admitted and treated for lower back pain. We are discharging you home with gabapentin that helped your pain here. You have been set up with an appt on 07/07/24 @ 1030 With the pain management clinic for an epidural spinal injection. You will need to follow-up with pain management as an outpatient for the epi dural injections. You will also need to follow-up with the orthopedic spine surgeon as well. Dr. Paris did review your images and suggests outpatient follow-up. We also discharging you home with lisinopril to help your blood pressure. 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 You will also need to follow-up with the Coumadin clinic after discharge for further monitoring of your INR levels. Continue with your current Coumadin dosing of 2.5 mg daily at home. Please also keep close follow up with your primary care provider after discharge. Your primary care provider can help with any additional work excuses or paperwork needed for time off from work Please do not hesitate to come back to the emergency room if your symptoms worsen or return. It was a pleasure taking care of you while you were here. Total Time Total Time Spent Total Time Spent (In Minutes): 60
[2024-06-06 13:44] VITALS: PULSE 96
[2024-06-06] MEDS ORDERED: INSULIN HUMAN NPH SC SCH (16:30)
== END 2024-06-06 14:12 | disposition home or self-care (01) | DRG 552 ==
LOC: ED 07:57 → SUATTDRO 10:50 → 3N 10:50
DX: I10 Essential (primary) hypertension; E11.9 Type 2 diabetes mellitus without complications; J44.9 Chronic obstructive pulmonary disease, unspecified; Z79.01 Long term (current) use of anticoagulants; M51.26 Other intervertebral disc displacement, lumbar region; F17.210 Nicotine dependence, cigarettes, uncomplicated; M16.12 Unilateral primary osteoarthritis, left hip; I48.0 Paroxysmal atrial fibrillation; R26.9 Unspecified abnormalities of gait and mobility; M48.062 Spinal stenosis, lumbar region with neurogenic claudication; Z88.2 Allergy status to sulfonamides; K21.9 Gastro-esophageal reflux disease without esophagitis; Z95.2 Presence of prosthetic heart valve; Z79.4 Long term (current) use of insulin; Z91.141 Patient's other noncompliance with medication regimen due to financial hardship; M99.73 Connective tissue and disc stenosis of intervertebral foramina of lumbar region; Z79.82 Long term (current) use of aspirin; Z79.899 Other long term (current) drug therapy; Z86.73 Personal history of transient ischemic attack (TIA), and cerebral infarction without residual deficits

== ENCOUNTER 2024-07-24 12:25 | Inpatient (IN) ==
--- NOTE | 2024-07-24 13:02 | Emergency Department Note ---
Impression & Plan Sepsis, Pneumonia, Influenza A, Tachycardia, Elevated lactic acid level, Left foot pain, Elevated troponin, Acute hyperglycemia ED Provider Note NAME: АЛЕКСАНДР ALLEN AGE: 64 SEX: M : 1960 ARRIVES VIA: Walk-In INFORMANT: [Patient] ED PROVIDER(S): [Reed March MD] CHIEF COMPLAINT: Foot pain HISTORY OF PRESENT ILLNESS: The patient is a 64-year-old diabetic. He has had issues with his left foot and heel for a month but the pain has worsened lately. In addition, he has developed a cough for a few days and has noticed some slight increased shortness of breath. He had some chills over the last day or so. There has been no vomiting, no abdominal pain. No urinary complaints. He was worried that he had an infection in the left foot or something possibly involving his lung. He presents for evaluation. Of note, the patient's son has been coughing some, he may have caught an illness from his son. PMHx/PSHx/Social Hx: See Below PHYSICAL EXAM: GENERAL: Patient is in no acute distress. HEENT: No acute trauma, normocephalic atraumatic, mucous membranes dry, no nasal congestion. NECK: No stridor, no adenopathy, no meningismus, trachea is midline. LUNGS: Diminished breath sounds with crackles at the left base, no respiratory distress. HEART: 2 for 6 systolic murmur, mildly tachycardic, regular rhythm. ABDOMEN: Soft, nontender, no peritonitis. EXTREMITIES: No cyanosis. The patient does have some cracking to the skin of the left heel. This area is quite tender. There is no warmth or significant drainage or erythema. NEUROLOGIC: Oriented x 3, no acute motor or sensory deficits, no focal weakness. SKIN: No jaundice, no diaphoresis. DIFFERENTIAL DIAGNOSIS: Bacteremia or sepsis, pneumonia, viral illness, dehydration, osteomyelitis, UTI, among others. EMERGENCY DEPARTMENT PROCEDURES: MEDICAL DECISION MAKING: There is no leukocytosis or concerning anemia. There is a normal platelet count. No concerning coagulopathy. Creatinine is somewhat elevated, consistent with dehydration. Glucose was quite high at over 500. Lactic acid level was elevated consistent with infection/dehydration. No concerning liver enzyme elevation. ECG showed a sinus tachycardia, no ischemia. Cardiac enzyme testing x 1 was slightly elevated. This troponin elevation could be secondary to mismatch or potentially, cardiac injury. Urinalysis showed glucose and ketones, no true infection. Respiratory bio fire was positive for influenza A. Chest film shows a bilateral pneumonia, worse on the left. Left foot CT does not show osteomyelitis. On exam, the patient was tachycardic, he had crackles on lung exam. He was sore about the area of the left foot/heel. The patient was aggressively managed given his complaints and vital signs. The patient received IV insulin. He was given IV Zosyn as antibiotic coverage. He received 2L of IV saline for hydration. This should cover for 30 cc/kg of fluid hydration per sepsis protocol based on actual body weight. He was given oral Tylenol. The patient's heart rate has improved, he seems more comfortable. His blood sugar has decreased with the IV insulin. The patient meets criteria for sepsis. He appears to have pneumonia as the main cause for his presentation. There may be a cellulitis of the left lower leg as well. With his hyperglycemia, his tachycardia, his pneumonia, his influenza and other findings, hospitalization is indicated. I spoke with the patient and case management, the on-call hospitalist was consulted. Prior/Outside records/notes reviewed: None ECG per my interpretation: Indication was tachycardia. The ECG shows a sinus tachycardia with a rate of 109. There is a potential old anterior infarct. There is no acute ST elevation, no PVCs. The QTc is 474. Continuous Cardiac Monitoring per my interpretation: An order was placed for continuous cardiac monitoring. The monitor shows a rate of 107 with sinus tachycardia. Imaging/x-ray results per my interpretation: Chest x-ray shows bilateral lower lung congestion, worse on the left, possibly consistent with pneumonia. Chronic Medical/Social conditions affecting care: History of diabetes and warfarin use. Care/Management discussed with: Case management, the on-call hospitalist. Level of care consideration(s): After review of the information above and other included data: --I believe the patient requires escalation of care to admission Critical Care Note: I have personally spent 41 minutes of critical care time in the direct management of this patient. This includes bedside care, interpretation of diagnostic studies, and testing, discussion with consultants, patient, and family members, and other required patient management activities. This 41 minutes is in excess of all separately billable procedures. DISPOSITION: Admission Past Med/Surg History Problem List (Updated 07/24/24 @ 17:46 by Reed March MD) Acute hyperglycemia (Acute) Elevated troponin (Acute) Left foot pain (Acute) Elevated lactic acid level (Acute) Tachycardia (Acute) Influenza A (Acute) Pneumonia (Acute) Sepsis (Acute) Chronic anticoagulation Spinal stenosis, lumbar region with neurogenic claudication Ambulatory dysfunction (Acute) Hip pain, left (Acute) Lumbar radiculitis Medical History GERD (gastroesophageal reflux disease) ILD (interstitial lung disease) H/O TIA (transient ischemic attack) and stroke Stroke-like episode - History of TIA vs vertigo per cardio records 11/2021 (on Plavix) - 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 11/2021. Repeat head CTA 08/2022 was unremarkable and no left ICA aneurysm identified Hypertension Hyperlipidemia PFO (patent foramen ovale) Small per 11/2021 [facility] imaging per cardio records Barretts esophagus Per records Gallbladder sludge reason for upcoming procedure Arthritis, gouty Hx of kidney disease PER PATIENT, ACUTE KIDNEY DISEASE 05/2022>WNL CURRENTLY GERD (gastroesophageal reflux disease) "silent/mild" Diabetes mellitus, type 2 Hx of pancreatitis HOSPITALIZED 05/2022>DKA and acute pancreatitis Aortic valve stenosis Severe per 05/2022 ECHO (PK 0.78-1.0cm2; AV mean PG 23.2mmHg; AV max velocity 3.684m/s) Chronic obstructive pulmonary disease MILD>NO INHALERS PER PATIENT Surgical History H/O mechanical aortic valve replacement Nausea and vomiting after administration of anesthetic agent H/O arthroscopic knee surgery + GANGLION CYST REMOVED>RT History of esophagogastroduodenoscopy (EGD) History of colonoscopy History of tooth extraction History of tonsillectomy and adenoidectomy History of cataract surgery RT/LEFT History of foot surgery RT History of carpal tunnel surgery LEFT Family History Other Diabetes Heart disease No family history of adverse response to anesthesia Social History Smoking Status: Current every day smoker Tobacco Type: Cigarettes Cigarettes Per Day: 4 CIG DAILY>ADVISED; Second Hand Exposure: No; Do You Dip or Chew Tobacco: No; Hx Alcohol Use: Yes Alcohol type: beer Hx Substance Use: No Preferred Language: Telugu Communication Ability: Effective Porcelain Buildup Assistant Required: No Beliefs That Will Affect Care: None marital status: Unknown Current Living Situation: Other Current Living Situation Comment: son Other Information That Helps Us Care for You: No Feels Safe at Home: Yes Safety Concerns: Feels Safe At This Time Assistive Devices: Walker Allergies Allergies Allergy/AdvReac Type Severity Reaction Status Date / Time erythromycin base Allergy Intermediate Abdominal Verified 07/08/24 12:35 Pain Home Meds Previous Rx's Medication Instructions Recorded aspirin 81 mg tablet,delayed 81 mg PO DAILY #30 tabs 06/02/24 release cyclobenzaprine 5 mg tablet 5 mg PO TID PRN muscle spasm #30 06/02/24 tabs insulin NPH-regular 70-30 U-100 33 unit (0.33 mL) subcut BID #15 mL 06/02/24 insulin 100 unit/mL subcutaneous pen (Novolin 70-30 FlexPen U-100 Insulin) omeprazole 20 mg capsule,delayed 20 mg PO DAILYBB #30 caps 06/02/24 release pen needle, diabetic 32 gauge x #50 ea 06/02/24" (Pen Needle) rosuvastatin 40 mg tablet 40 mg PO QAM #30 tabs 06/02/24 warfarin 2.5 mg tablet 2.5 mg PO DAILY@1600 30 days #30 06/02/24 tabs lisinopril 5 mg tablet (Zestril) 5 mg PO QAM #30 tabs 06/06/24 gabapentin 300 mg capsule 300 mg PO TID #90 caps 07/08/24 Results & Data (ED) Vital Signs Vital Signs - 24 hr 07/24/24 12:47 07/24/24 13:21 07/24/24 13:21 Temperature 37.7 C H 36.9 C Temperature Source Temporal Artery Scan Oral Pulse Rate 116 H 108 H Pulse Rate [Apical] 108 H Pulse Rhythm Regular Regular Pulse Rhythm [Apical] Regular Pulse Strength Normal Pulse Strength [Apical] Normal Respiratory Rate 18 20 20 Respiratory Effort / Characteristics Non-Labored Spontaneous Non-Labored Spontaneous Respiratory Depth Normal Normal Respiratory Pattern Regular Blood Pressure 113/85 Blood Pressure [Left Arm] 135/69 Blood Pressure Mean 94 Blood Pressure Mean [Left Arm] 91 Blood Pressure Position Sitting Blood Pressure Position [Left Arm] Semi-fowlers Pulse Oximetry 94 98 98 Oxygen Delivery Method Room Air Room Air Room Air Sepsis Recent Fever Within 48 Hours No Sepsis New/Unexplained Change in Mental Status N/A Sepsis Action Taken by Nursing No Action Required 07/24/24 13:31 07/24/24 13:58 07/24/24 14:30 Temperature 36.9 C Temperature Source Oral Pulse Rate 105 H Pulse Rate [Apical] 107 H 106 H Pulse Rhythm Pulse Rhythm [Apical] Pulse Strength Pulse Strength [Apical] Respiratory Rate 20 20 Respiratory Effort / Characteristics Non-Labored Spontaneous Non-Labored Spontaneous Respiratory Depth Normal Normal Respiratory Pattern Regular Regular Blood Pressure Blood Pressure [Left Arm] 152/64 H 144/69 H Blood Pressure Mean Blood Pressure Mean [Left Arm] 93 94 Blood Pressure Position Blood Pressure Position [Left Arm] Semi-fowlers Semi-fowlers Pulse Oximetry 93 93 Oxygen Delivery Method Room Air Room Air Sepsis Recent Fever Within 48 Hours Sepsis New/Unexplained Change in Mental Status Sepsis Action Taken by Nursing 07/24/24 15:00 Temperature Temperature Source Pulse Rate Pulse Rate [Apical] Pulse Rhythm Pulse Rhythm [Apical] Pulse Strength Pulse Strength [Apical] Respiratory Rate Respiratory Effort / Characteristics Respiratory Depth Respiratory Pattern Blood Pressure Blood Pressure [Left Arm] 103/47 L Blood Pressure Mean Blood Pressure Mean [Left Arm] 65 Blood Pressure Position Blood Pressure Position [Left Arm] Semi-fowlers Pulse Oximetry Oxygen Delivery Method Sepsis Recent Fever Within 48 Hours Sepsis New/Unexplained Change in Mental Status Sepsis Action Taken by [facility] Medications Current Medication List: was personally reviewed by me Laboratory Data Attestation: I reviewed the patient's lab results. 07/24/24 13:14 07/24/24 13:14 Lab Results 07/24/24 07/24/24 Range/Units 13:14 13:15 WBC 9.59 (4.8-10.8) K/ul RBC 4.89 (4.70-6.10) M/uL Hgb 15.3 (14.0-18.0) g/dl Hct 44.6 (42.0-52.0) % MCV 91.2 (80.0-100.0) fL MCH 31.3 (25.0-34.0) pg MCHC 34.3 (32.0-36.0) g/dL RDW Std Deviation 47.4 H (36.4-46.3) fL RDW Coeff of Mariah 14.2 (11.5-14.5) % Plt Count 160 (130-400) K/uL MPV 11.1 (9.4-12.4) fL Immature Gran % (Auto) 0.5 % Neut % (Auto) 86.2 % Lymph % (Auto) 5.8 % [place]aston % (Auto) 7.2 % Eos % (Auto) 0.0 % Baso % (Auto) 0.3 % Neut # (Auto) 8.26 H (1.40-6.50) K/uL Lymph # (Auto) 0.56 L (1.20-3.40) K/uL [place]aston # (Auto) 0.69 H (0.11-0.59) K/uL Eos # (Auto) 0.00 (0.00-0.50) K/uL Baso # (Auto) 0.03 (0.00-0.20) K/uL Immature Gran # (Auto) 0.05 (0.01-0.20) K/uL ESR 36 H (0-20) mm/hr PT 11.3 (9.0-12.0) Seconds INR 1.0 (0.9-1.1) APTT 33 H (21-31) Seconds PTT Ratio 1.2 Sodium 134 L (136-145) mmol/L Potassium 5.0 (3.5-5.1) mmol/L Chloride 96 L (98-107) mmol/L Carbon Dioxide 25 (21-32) mmol/L Anion Gap 13 H (3-11) BUN 22 (6-23) mg/dl Creatinine 1.43 H (0.6-1.4) mg/dl Est Cr Clr Drug Dosing 44.8 ml/min eGFR 55.40 BUN/Creatinine Ratio 15.4 (10-20) Glucose 548 H* (70-99(Fasting)) mg/dl Lactate 3.7 H* (0.4-2.0) mmol/L Calcium 9.0 (8.6-10.3) mg/dl Magnesium 1.8 (1.7-2.4) mg/dl Total Bilirubin 0.8 (0.2-1.0) mg/dl Direct Bilirubin 0.1 (0-0.2) mg/dl AST 29 (13-39) U/L ALT 18 (7-52) U/L Alkaline Phosphatase 110 H (34-104) U/L Troponin I High Sens 20.2 H (0-20) pg/ml Total Protein 7.8 (6.0-8.3) gm/dl Albumin 4.1 (3.4-5.0) gm/dl Procalcitonin 0.94 H (0-0.5) ng/ml Urine Color Yellow Urine Appearance Clear (Clear) Urine pH 6.0 (4.5-7.5) Ur Specific [place] 1.023 (1.000-1.030) Urine Protein 3+ H (Negative) Urine Glucose (UA) 3+ H (Negative) Urine Ketones 1+ H (Negative) Urine Blood 2+ H (Negative) Urine Nitrite Negative (Negative) Urine Bilirubin Negative (Negative) Urine Urobilinogen Negative (Negative) Ur Leukocyte Esterase Negative (Negative) Urine WBC (Auto) 0-5 (0-5) /hpf Urine RBC (Auto) 0-2 (0-2) /hpf U Hyaline Cast (Auto) 0-2 (0-2) /lpf U Epithel Cells (Auto) 0-2 (0-2) /hpf Urine Bacteria (Auto) None Seen (None Seen) Adenovirus (PCR) Not Detected (NotDetected) B. pertussis DNA (PCR) Not Detected (NotDetected) B.parapertussis DNA PCR Not Detected (NotDetected) C. pneumoniae DNA (PCR) Not Detected (NotDetected) Coronavirus OC43 (PCR) Not Detected (NotDetected) Coronavirus HKU1 (PCR) Not Detected (NotDetected) Coronavirus 229E (PCR) Not Detected (NotDetected) SARS-CoV-2 (PCR) Not Detected (NotDetected) Coronavirus NL63 (PCR) Not Detected (NotDetected) Human Metapneumovir PCR Not Detected (NotDetected) Influenza A (H3) PCR DETECTED A (NotDetected) Influenza Type B (PCR) Not Detected (NotDetected) M. pneumoniae (PCR) Not Detected (NotDetected) Parainfluenza 1 (PCR) Not Detected (NotDetected) Parainfluenza 2 (PCR) Not Detected (NotDetected) Parainfluenza 3 (PCR) Not Detected (NotDetected) Parainfluenza 4 (PCR) Not Detected (NotDetected) RSV (PCR) Not Detected (NotDetected) Entero/Rhino (PCR) Not Detected (NotDetected) Administered Medications Sodium Chloride (Nss) 500 mls @ 80 mls/hr IV .Q6H15M NELI Stop: 07/24/24 22:43 Last Admin: 07/24/24 17:08 Dose: 80 mls/hr Documented By: CHACORTA Nicotine (Nicotine 14 Mg/24 Hr Patch) 1 patch TD QAM NELI Stop: 08/23/24 16:28 Last Admin: 07/24/24 17:10 Dose: 1 patch Documented By: CHACORTA Discontinued Medications Acetaminophen (Acetaminophen 500 Mg Tab) 1,000 mg PO NOW STA Stop: 07/24/24 12:51 Last Admin: 07/24/24 13:42 Dose: 1,000 mg Documented By: JOHNNIE Sodium Chloride (Nss) 1,000 mls @ 999 mls/hr IV .Q1H1M NELI Stop: 07/24/24 14:00 Last Infusion: 07/24/24 15:23 Dose: Infused Documented By: Admin: 07/24/24 13:45 Dose: 999 mls/hr Documented By: JOHNNIE Piperacillin Sod/Tazobactam Sod (Zosyn) 4.5 gm in 100 mls @ 200 mls/hr IV NOW STA Stop: 07/24/24 13:19 Last Infusion: 07/24/24 15:23 Dose: Infused Documented By: Admin: 07/24/24 13:43 Dose: 200 mls/hr Documented By: JOHNNIE Sodium Chloride (Nss) 1,000 mls @ 999 mls/hr IV .Q1H1M ONE Stop: 07/24/24 15:31 Last Infusion: 07/24/24 16:08 Dose: Infused Documented By: Admin: 07/24/24 14:42 Dose: 999 mls/hr Documented By: JOHNNIE Insulin Human Regular (Novolin-R Insulin Per Unit Charge) 10 units IV NOW STA Stop: 07/24/24 14:05 Last Admin: 07/24/24 14:27 Dose: 10 units Documented By: JONO Co-signed By: JOHNNIE Oseltamivir Phosphate (Oseltamivir Phosphate 75 Mg Cap) 75 mg PO NOW ONE Stop: 07/24/24 16:46 Last Admin: 07/24/24 17:10 Dose: 75 mg Documented By: [facility] Imaging Data Radiologist's Impression: Chest X-Ray 07/24/24 12:51 XR chest 1V portable HISTORY: 64 years-old Male Sepsis COMPARISON: 05/07/2024 TECHNIQUE: AP view the chest FINDINGS: Cardiac silhouette is enlarged. Median sternotomy. No pneumothorax. Patchy bibasilar airspace opacities with chronic interstitial coarsening. Bones appear grossly intact. IMPRESSION: 1. Cardiomegaly without pulmonary edema. 2. Patchy bibasilar opacities are likely infectious or inflammatory. ACT 112: Negative or not required by law. The above report was generated using voice recognition software. It may contain grammatical, syntax or spelling errors. Electronically signed by: Reece Catalan M.D. 07/24/2024 1:[address] 07/24/24 12:58 CT foot LT wo con HISTORY: 64 years-old Male poss osteo chronic pain of the left foot. Clinical concern for osteomyelitis COMPARISON: Ankle radiographs July 09, 2024 TECHNIQUE: Multiple axial CT images of the left foot were obtained without IV contrast. A dose lowering technique was used consistent with the principals of ALARA. FINDINGS: Benign-appearing calcaneal bone island measuring up to 1.3 cm. Small calcaneal enthesophyte. Mild osteoarthritis of the foot and ankle. No acute fracture, dislocation or osseous erosion. Midfoot alignment is anatomic. Subcutaneous edema of the heel pad. Soft tissue thickening of the mid to distal Achilles tendon suggestive of probable tendinosis. No fluid collections or suspicious mass lesions of the soft tissues. Arterial calcifications. Tendons and ligaments are not well evaluated by CT technique. Probable peroneal tendinosis. IMPRESSION: 1. Mild subcutaneous edema of the foot and ankle. No fluid collections. 2. No acute osseous abnormality, notably no CT evidence of acute osteomyelitis. ACT 112: Negative or not required by law. The above report was generated using voice recognition software. It may contain grammatical, syntax or spelling errors. Electronically signed by: Reece Catalan M.D. 07/24/2024 2:45 PM Discharge Plan Visit Data Chief Complaint: Foot Injury/Pain Stated Complaint: SWOLLEN LEFT FOOT, CRACKED AND INFECTED, DIABETIC ED Provider: Reed March Discharge Problem: Sepsis, Pneumonia, Influenza A, Tachycardia, Elevated lactic acid level, Left foot pain, Elevated troponin, Acute hyperglycemia Patient Disposition: Admitted As Inpatient Condition: Serious Discharge Instructions Interventions: ED Discharge Assessment Last Done: 07/24/24 16:17 Discharge Problem: Sepsis Qualifiers: Sepsis type: sepsis due to unspecified organism Sepsis acute organ dysfunction status: without acute organ dysfunction Qualified Code(s): A41.9 - Sepsis, unspecified organism Pneumonia Qualifiers: Pneumonia type: due to unspecified organism Laterality: bilateral Lung location: lower lobe of lung Qualified Code(s): J18.9 - Pneumonia, unspecified organism
[2024-07-24 13:37] LABS: Appearance Urine Clear (Clear); Bacteria Urine Automated None Seen (None Seen); Bilirubin Urine Negative (Negative); Blood Urine 2+ (Negative); Cast Urine Automated 0-2 /lpf (0-2); Color Urine Yellow; Epithelial Cell Urine Auto 0-2 /hpf (0-2); Glucose Urine UA 3+ (Negative); Ketones Urine 1+ (Negative); Leukocyte Esterase Urine Negative (Negative); Nitrite Urine Negative (Negative); Protein Urine 3+ (Negative); RBC Urine Automated 0-2 /hpf (0-2); Specific Gravity Urine 1.023 (1.000-1.030); Urobilinogen Urine Negative (Negative); WBC Urine Automated 0-5 /hpf (0-5)
[2024-07-24 13:39] LABS: Basophils # (auto) 0.03 K/uL (0.00-0.20); Basophils % (auto) 0.3 %; Hematocrit (blood only) 44.6 % (42.0-52.0); Hemoglobin 15.3 g/dl (14.0-18.0); Immature Granulocytes # (auto) 0.05 K/uL (0.01-0.20); Immature Granulocytes % (auto) 0.5 %; Lymphocytes # (auto) 0.56 K/uL (1.20-3.40); Lymphocytes % (auto) 5.8 %; Mean Corpuscular Hemoglobin 31.3 pg (25.0-34.0); Mean Corpuscular Hgb Conc 34.3 g/dL (32.0-36.0); Mean Corpuscular Volume 91.2 fL (80.0-100.0); Mean Platelet Volume 11.1 fL (9.4-12.4); Monocytes # (auto) 0.69 K/uL (0.11-0.59); Monocytes % (auto) 7.2 %; Neutrophils # (auto) 8.26 K/uL (1.40-6.50); Neutrophils % (auto) 86.2 %; Platelet Count 160 K/uL (130-400); RDW Coefficient of Variation 14.2 % (11.5-14.5); RDW Standard Deviation 47.4 fL (36.4-46.3); Red Blood Count 4.89 M/uL (4.70-6.10); White Blood Count 9.59 K/ul (4.8-10.8)
[2024-07-24] MEDS: ACETAMINOPHEN 500 MG TAB PO STA (13:42)
--- NOTE | 2024-07-24 13:42 | XRay Report ---
XR chest 1V portable HISTORY: 64 years-old Male Sepsis COMPARISON: 05/07/2024 TECHNIQUE: AP view the chest FINDINGS: Cardiac silhouette is enlarged. Median sternotomy. No pneumothorax. Patchy bibasilar airspace opaciti es with chronic interstitial coarsening. Bones appear grossly intact. IMPRESSION: 1. Cardiomegaly without pulmonary edema. 2. Patchy bibasilar opacities are likely infectious or inflammatory. ACT 112: Negative or not required by law. The above report was generated using voice recognition software. It may contain grammatical, syntax o r spelling errors. Electronically signed by: Reece Catalan M.D. 07/24/2024 1:40 PM
[2024-07-24] MEDS: PIPERACILLIN/TAZOBACTAM 4.5 GM/100 ML BAG IV STA (13:43)
[2024-07-24] MEDS: SODIUM CHLORIDE 0.9% 1,000 ML IV SCH (13:45)
[2024-07-24 14:05] LABS: Albumin Level 4.1 gm/dl (3.4-5.0); BUN Creatinine Ratio 15.4 (10-20); Bilirubin Direct 0.1 mg/dl (0-0.2); Bilirubin,Total 0.8 mg/dl (0.2-1.0); Creatinine Clr Calc Pharmacy 44.8 ml/min; Magnesium 1.8 mg/dl (1.7-2.4); Total Protein 7.8 gm/dl (6.0-8.3)
[2024-07-24 14:06] LABS: Troponin I High Sensitivity 20.2 pg/ml (0-20)
[2024-07-24 14:10] LABS: Partial Thromboplastin Ratio 1.2; Partial Thromboplastin Time 33 Seconds (21-31); Prothrombin Time 11.3 Seconds (9.0-12.0)
[2024-07-24 14:25] LABS: Adenovirus PCR Not Detected (NotDetected); Bordetella parapertussis PCR Not Detected (NotDetected); Bordetella pertussis PCR Not Detected (NotDetected); Chlamydia pneumoniae PCR Not Detected (NotDetected); Coronavirus 229E PCR Not Detected (NotDetected); Coronavirus CoV-2 (COVID19)PCR Not Detected (NotDetected); Coronavirus HKU1 PCR Not Detected (NotDetected); Coronavirus NL63 PCR Not Detected (NotDetected); Coronavirus OC43PCR Not Detected (NotDetected); Human Metapneumovirus PCR Not Detected (NotDetected); Influenza A (H3) PCR DETECTED (NotDetected); Influenza B PCR Not Detected (NotDetected); Mycoplasma pneumoniae PCR Not Detected (NotDetected); Parainfluenza Virus 1 PCR Not Detected (NotDetected); Parainfluenza Virus 2 PCR Not Detected (NotDetected); Parainfluenza Virus 3 PCR Not Detected (NotDetected); Parainfluenza Virus 4 PCR Not Detected (NotDetected); Respiratory Syncytial VirusPCR Not Detected (NotDetected); Rhinovirus/Enterovirus PCR Not Detected (NotDetected)
[2024-07-24] MEDS: NovoLIN-R INSULIN PER UNIT CHARGE IV STA (14:27)
[2024-07-24] MEDS: SODIUM CHLORIDE 0.9% 1,000 ML IV ONE (14:42)
--- NOTE | 2024-07-24 14:46 | CT Scan Report ---
CT foot LT wo con HISTORY: 64 years-old Male poss osteo chronic pain of the left foot. Clinical concern for osteomyeli tis COMPARISON: Ankle radiographs July 09, 2024 TECHNIQUE: Multiple axial CT images of the left foot were obtained without IV contrast. A dose loweri ng technique was used consistent with the principals of DONNIE. FINDINGS: Benign-appearing calcaneal bone island measuring up to 1.3 cm. Small calcaneal enthesophyte. Mild ost eoarthritis of the foot and ankle. No acute fracture, dislocation or osseous erosion. Midfoot alignme nt is anatomic. Subcutaneous edema of the heel pad. Soft tissue thickening of the mid to distal Achilles tendon sugge stive of probable tendinosis. No fluid collections or suspicious mass lesions of the soft tissues. Ar terial calcifications. Tendons and ligaments are not well evaluated by CT technique. Probable peronea l tendinosis. IMPRESSION: 1. Mild subcutaneous edema of the foot and ankle. No fluid collections. 2. No acute osseous abnormality, notably no CT evidence of acute osteomyelitis. ACT 112: Negative or not required by law. The above report was generated using voice recognition software. It may contain grammatical, syntax o r spelling errors. Electronically signed by: Reece Catalan M.D. 07/24/2024 2:45 PM
[2024-07-24] MEDS ORDERED: PHARMACY GLYCEMIC MGMT CONSULT PRN (15:07)
--- NOTE | 2024-07-24 15:19 | History & Physical Report ---
Date of Service July 24, 2024 Assessment & Plan (1) GERD (gastroesophageal reflux disease): (2) Hypertension: (3) Hyperlipidemia: (4) PFO (patent foramen ovale): (5) Barretts esophagus: (6) Diabetes mellitus, type 2: (7) H/O mechanical aortic valve replacement: Plan The patient is a 64-year-old male with a past medical history of uncontrolled diabetes, AVR on warfarin who presented to the ED on 07/24/2024 with concerns of left foot wound found to have flu A and pneumonia Assessment and plan: FLU A/CAP: No hypoxia noted, treat symptomatically Chest x-ray with pneumonia, continue IV Zosyn/Doxy Check MRSA screen L heel wound: Likely secondary to uncontrolled diabetes, CT foot did not show osteomyelitis - ESR, CRP elevated Check L foot MRI, consult wound care/podiatry, continue IV Zosyn Blood cultures pending, plan to obtain wound cultx Uncontrolled diabetes Lactic acidosis Reports compliance with home insulin dose, on Novolin 33 units twice a day Lactic acidosis in the setting of hyperglycemia, infection, continue IV fluids, recheck lactate Received IV insulin in the ER, diabetic pharmacy consult Recheck A1c, recent A1c 13.5 in May 2024 Hx AVRsubtherapeutic INR: INR 1 on arrival, start heparin drip, home Coumadin dosing ordered Check INR level daily A total of 60 minutes was spent on chart review/facilitating plan of care/reviewing diagnostic data/discussion with consultants DNR/DNI DVT prophylaxis: Heparin drip History of Present Illness Chief Complaint: Left foot pain Primary Care Provider: Anabel Ortiz MD The patient is a 64-year-old male with a past medical history of uncontrolled type 2 diabetes, HTN, GERD, HLD, recent AVRmechanical valve 2022 on Coumadin who presents to the ED today on 07/24/2024 with complaints of pain in his left he el and difficulty walking. Patient reports when he took his sock off the other day, he noted discharge blood and pus coming from the heel of his foot. He also reports some intermittent shortness of breath and cough over the past few days. Noted that his son is sick. He reports a dry cough and denies bringing up any phlegm. Admits to being a current smoker, quarter pack per day. Also reports he recently lost his job about a month ago. He was admitted recently with left hip pain about 2 months ago and seen by Ortho at this time. He denies any fever/chills/nausea/vomiting/diarrhea/abdominal pain. He reports being compliant with his home medications. He is unsure of the last time he had his INR checked. Reports taking his insulin as prescribed at home. Left foot CT showed mild subcutaneous edema, no fluid collections, no evidence of osteomyelitis Chest x-ray showed cardiomegaly, patchy bibasilar opacities inflammatory versus infectious On arrival to the ED, labs remarkable for NA 134, chloride 96, anion gap 13, creatinine 1.43, glucose 548, lactate 3.7, procalcitonin 0.94 UA positive for ketones, blood, and glucose, blood cultures pending Respiratory panel positive for flu A Patient received IV Zosyn/IV fluids/IV insulin in ED and will be admitted for management of hyperglycemia and pneumonia Allergies Allergy/AdvReac Type Severity Reaction Status Date / Time erythromycin base Allergy Intermediate Abdominal Verified 07/08/24 12:35 Pain Home Medications Medication Instructions Recorded Confirmed Type aspirin 81 mg tablet,delayed 81 mg PO DAILY #30 tabs 06/02/24 07/24/24 Rx release cyclobenzaprine 5 mg tablet 5 mg PO TID PRN muscle spasm #30 06/02/24 07/24/24 Rx tabs insulin NPH-regular 70-30 U-100 33 unit (0.33 mL) subcut BID #15 mL 06/02/24 07/24/24 Rx insulin 100 unit/mL subcutaneous pen (Novolin 70-30 FlexPen U-100 Insulin) omeprazole 20 mg capsule,delayed 20 mg PO DAILYBB #30 caps 06/02/24 07/24/24 Rx release pen needle, diabetic 32 gauge x #50 ea 06/02/24 07/24/24 Rx 5/32" (Pen Needle) rosuvastatin 40 mg tablet 40 mg PO QAM #30 tabs 06/02/24 07/24/24 Rx warfarin 2.5 mg tablet 2.5 mg PO DAILY@1600 30 days #30 06/02/24 07/24/24 Rx tabs lisinopril 5 mg tablet (Zestril) 5 mg PO QAM #30 tabs 06/06/24 07/24/24 Rx gabapentin 300 mg capsule 300 mg PO TID #90 caps 07/08/24 07/24/24 Rx Past Med/Surg History Problem List (Updated 07/24/24 @ 00:06 by Background Daemon) Chronic anticoagulation Spinal stenosis, lumbar region with neurogenic claudication Ambulatory dysfunction (Acute) Hip pain, left (Acute) Lumbar radiculitis Medical History (Updated 07/24/24 @ 00:06 by Background Daemon) GERD (gastroesophageal reflux disease) ILD (interstitial lung disease) H/O TIA (transient ischemic attack) and stroke Stroke-like episode - History of TIA vs vertigo per cardio records 11/2021 (on Plavix) - 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 Repeat head CTA 08/2022 was unremarkable and no left ICA aneurysm identified Hypertension Hyperlipidemia PFO (patent foramen ovale) Small per 11/2021 [facility] imaging per cardio records Barretts esophagus Per records Gallbladder sludge reason for upcoming procedure Arthritis, gouty Hx of kidney disease PER PATIENT, ACUTE KIDNEY DISEASE 05/2022>WNL CURRENTLY GERD (gastroesophageal reflux disease) "silent/mild" Diabetes mellitus, type 2 Hx of pancreatitis HOSPITALIZED 05/2022>DKA and acute pancreatitis Aortic valve stenosis Severe per 05/2022 ECHO (PK 0.78-1.0cm2; AV mean PG 23.2mmHg; AV max velocity 3.684m/s) Chronic obstructive pulmonary disease MILD>NO INHALERS PER PATIENT Surgical History H/O mechanical aortic valve replacement Nausea and vomiting after administration of anesthetic agent H/O arthroscopic knee surgery + GANGLION CYST REMOVED>RT History of esophagogastroduodenoscopy (EGD) History of colonoscopy History of tooth extraction History of tonsillectomy and adenoidectomy History of cataract surgery RT/LEFT History of foot surgery RT History of carpal tunnel surgery LEFT Family History Other Diabetes Heart disease No family history of adverse response to anesthesia Social History Smoking Status: Current every day smoker Tobacco Type: Cigarettes Cigarettes Per Day: 4 CIG DAILY>ADVISED; Second Hand Exposure: No; Do You Dip or Chew Tobacco: No; Hx Alcohol Use: No Hx Substance Use: No Preferred Language: Greek Communication Ability: Effective Bus Van Driver Required: No Beliefs That Will Affect Care: None marital status: Unknown Current Living Situation: Family Current Living Situation Comment: WITH SON Feels Safe at Home: Yes Assistive Devices: None Review of Systems Review of Systems: All systems reviewed & are unremarkable except as noted in HPI & below Physical Exam Constitutional: WD/WN, vitals as above Eyes: PERRL, conjunctivae normal, anicteric sclerae ENMT: external ear and nose normal, oropharynx normal Neck: trachea midline, no thyromegaly Respiratory: normal respiratory effort, lungs clear to auscultation (Rhonchi right lung) Cardiovascular: RRR, no murmur, no edema Gastrointestinal (Abdomen): normal bowel sounds, soft, nontender, no hepatosplenomegaly Musculoskeletal: no cyanosis or clubbing, extremities motor strength 5/5 Skin: no rashes, warm and dry (Left heel wound bloody/scabbed over, very dry/flaky skin) Neurologic: PERRL, EOMI, accommodation nl, no face palsy, no dysarthria Psychiatric: A+Ox3, euthymic affect Genitourinary: no testicular masses, no penis abnormality Lymphatic: no cervical or axillary lymphadenopathy Results & Data Results & Data Vital Signs (Past 12 Hours) Vital Signs Temp Pulse Pulse Resp BP BP Pulse Ox 07/24/24 14:30 36.9 C 106 H 20 144/69 H 93 07/24/24 13:58 107 H 20 152/64 H 93 07/24/24 13:31 105 H 07/24/24 13:21 108 H 20 98 07/24/24 13:21 36.9 C 108 H 20 135/69 98 07/24/24 12:47 37.7 C H 116 H 18 113/85 94 O2 Del Method 07/24/24 14:30 Room Air 07/24/24 13:58 Room Air 07/24/24 13:31 07/24/24 13:21 Room Air 07/24/24 13:21 Room Air 07/24/24 12:47 Room Air Diagnostic Findings Laboratory Results WBC 9.59 K/ul (4.8-10.8) 07/24/24 13:14 RBC 4.89 M/uL (4.70-6.10) 07/24/24 13:14 Hgb 15.3 g/dl (14.0-18.0) 07/24/24 13:14 Hct 44.6 % (42.0-52.0) 07/24/24 13:14 MCV 91.2 fL (80.0-100.0) 07/24/24 13:14 MCH 31.3 pg (25.0-34.0) 07/24/24 13:14 MCHC 34.3 g/dL (32.0-36.0) 07/24/24 13:14 RDW Std Deviation 47.4 fL (36.4-46.3) H 07/24/24 13:14 RDW Coeff of Mariah 14.2 % (11.5-14.5) 07/24/24 13:14 Plt Count 160 K/uL (130-400) 07/24/24 13:14 MPV 11.1 fL (9.4-12.4) 07/24/24 13:14 Immature Gran % (Auto) 0.5 % 07/24/24 13:14 Neut % (Auto) 86.2 % 07/24/24 13:14 Lymph % (Auto) 5.8 % 07/24/24 13:14 Liberty % (Auto) 7.2 % 07/24/24 13:14 Eos % (Auto) 0.0 % 07/24/24 13:14 Baso % (Auto) 0.3 % 07/24/24 13:14 Neut # (Auto) 8.26 K/uL (1.40-6.50) H 07/24/24 13:14 Lymph # (Auto) 0.56 K/uL (1.20-3.40) L 07/24/24 13:14 Liberty # (Auto) 0.69 K/uL (0.11-0.59) H 07/24/24 13:14 Eos # (Auto) 0.00 K/uL (0.00-0.50) 07/24/24 13:14 Baso # (Auto) 0.03 K/uL (0.00-0.20) 07/24/24 13:14 Immature Gran # (Auto) 0.05 K/uL (0.01-0.20) 07/24/24 13:14 PT 11.3 Seconds (9.0-12.0) 07/24/24 13:14 INR 1.0 (0.9-1.1) 07/24/24 13:14 APTT 33 Seconds (21-31) H 07/24/24 13:14 PTT Ratio 1.2 07/24/24 13:14 Sodium 134 mmol/L (136-145) L 07/24/24 13:14 Potassium 5.0 mmol/L (3.5-5.1) 07/24/24 13:14 Chloride 96 mmol/L (98-107) L 07/24/24 13:14 Carbon Dioxide 25 mmol/L (21-32) 07/24/24 13:14 Anion Gap 13 (3-11) H 07/24/24 13:14 BUN 22 mg/dl (6-23) 07/24/24 13:14 Creatinine 1.43 mg/dl (0.6-1.4) H 07/24/24 13:14 Est Cr Clr Drug Dosing 44.8 ml/min 07/24/24 13:14 eGFR 55.40 07/24/24 13:14 BUN/Creatinine Ratio 15.4 (10-20) 07/24/24 13:14 Glucose 548 mg/dl (70-99(Fasting)) H* 07/24/24 13:14 POC Glucose 385 mg/dl (70-99) H* 07/24/24 15:17 Lactate 3.7 mmol/L (0.4-2.0) H* 07/24/24 13:14 Calcium 9.0 mg/dl (8.6-10.3) 07/24/24 13:14 Magnesium 1.8 mg/dl (1.7-2.4) 07/24/24 13:14 Total Bilirubin 0.8 mg/dl (0.2-1.0) 07/24/24 13:14 Direct Bilirubin 0.1 mg/dl (0-0.2) 07/24/24 13:14 AST 29 U/L (13-39) 07/24/24 13:14 ALT 18 U/L (7-52) 07/24/24 13:14 Alkaline Phosphatase 110 U/L (34-104) H 07/24/24 13:14 Troponin I High Sens 20.2 pg/ml (0-20) H 07/24/24 13:14 Total Protein 7.8 gm/dl (6.0-8.3) 07/24/24 13:14 Albumin 4.1 gm/dl (3.4-5.0) 07/24/24 13:14 Procalcitonin 0.94 ng/ml (0-0.5) H 07/24/24 13:14 Urine Color Yellow 07/24/24 13:15 Urine Appearance Clear (Clear) 07/24/24 13:15 Urine pH 6.0 (4.5-7.5) 07/24/24 13:15 Ur Specific [place] 1.023 (1.000-1.030) 07/24/24 13:15 Urine Protein 3+ (Negative) H 07/24/24 13:15 Urine Glucose (UA) 3+ (Negative) H 07/24/24 13:15 Urine Ketones 1+ (Negative) H 07/24/24 13:15 Urine Blood 2+ (Negative) H 07/24/24 13:15 Urine Nitrite Negative (Negative) 07/24/24 13:15 Urine Bilirubin Negative (Negative) 07/24/24 13:15 Urine Urobilinogen Negative (Negative) 07/24/24 13:15 Ur Leukocyte Esterase Negative (Negative) 07/24/24 13:15 Urine WBC (Auto) 0-5 /hpf (0-5) 07/24/24 13:15 Urine RBC (Auto) 0-2 /hpf (0-2) 07/24/24 13:15 U Hyaline Cast (Auto) 0-2 /lpf (0-2) 07/24/24 13:15 U Epithel Cells (Auto) 0-2 /hpf (0-2) 07/24/24 13:15 Urine Bacteria (Auto) None Seen (None Seen) 07/24/24 13:15 Adenovirus (PCR) Not Detected (NotDetected) 07/24/24 13:15 B. pertussis DNA (PCR) Not Detected (NotDetected) 07/24/24 13:15 B.parapertussis DNA PCR Not Detected (NotDetected) 07/24/24 13:15 C. pneumoniae DNA (PCR) Not Detected (NotDetected) 07/24/24 13:15 Coronavirus OC43 (PCR) Not Detected (NotDetected) 07/24/24 13:15 Coronavirus HKU1 (PCR) Not Detected (NotDetected) 07/24/24 13:15 Coronavirus 229E (PCR) Not Detected (NotDetected) 07/24/24 13:15 SARS-CoV-2 (PCR) Not Detected (NotDetected) 07/24/24 13:15 Coronavirus NL63 (PCR) Not Detected (NotDetected) 07/24/24 13:15 Human Metapneumovir PCR Not Detected (NotDetected) 07/24/24 13:15 Influenza A (H3) PCR DETECTED (NotDetected) A 07/24/24 13:15 Influenza Type B (PCR) Not Detected (NotDetected) 07/24/24 13:15 M. pneumoniae (PCR) Not Detected (NotDetected) 07/24/24 13:15 Parainfluenza 1 (PCR) Not Detected (NotDetected) 07/24/24 13:15 Parainfluenza 2 (PCR) Not Detected (NotDetected) 07/24/24 13:15 Parainfluenza 3 (PCR) Not Detected (NotDetected) 07/24/24 13:15 Parainfluenza 4 (PCR) Not Detected (NotDetected) 07/24/24 13:15 RSV (PCR) Not Detected (NotDetected) 07/24/24 13:15 Entero/Rhino (PCR) Not Detected (NotDetected) 07/24/24 13:15 Impressions Chest X-Ray 07/24/24 12:51 XR chest 1V portable HISTORY: 64 years-old Male Sepsis COMPARISON: 05/07/2024 TECHNIQUE: AP view the chest FINDINGS: Cardiac silhouette is enlarged. Median sternotomy. No pneumothorax. Patchy bibasilar airspace opacities with chronic interstitial coarsening. Bones appear grossly intact. IMPRESSION: 1. Cardiomegaly without pulmonary edema. 2. Patchy bibasilar opacities are likely infectious or inflammatory. ACT 112: Negative or not required by law. The above report was generated using voice recognition software. It may contain grammatical, syntax or spelling errors. Electronically signed by: Reece Catalan M.D. 07/24/2024 1:[address] 07/24/24 12:58 CT foot LT wo con HISTORY: 64 years-old Male poss osteo chronic pain of the left foot. Clinical concern for osteomyelitis COMPARISON: Ankle radiographs July 09, 2024 TECHNIQUE: Multiple axial CT images of the left foot were obtained without IV contrast. A dose lowering technique was used consistent with the principals of DONNIE. FINDINGS: Benign-appearing calcaneal bone island measuring up to 1.3 cm. Small calcaneal enthesophyte. Mild osteoarthritis of the foot and ankle. No acute fracture, dislocation or osseous erosion. Midfoot alignment is anatomic. Subcutaneous edema of the heel pad. Soft tissue thickening of the mid to distal Achilles tendon suggestive of probable tendinosis. No fluid collections or suspicious mass lesions of the soft tissues. Arterial calcifications. Tendons and ligaments are not well evaluated by CT technique. Probable peroneal tendinosis. IMPRESSION: 1. Mild subcutaneous edema of the foot and ankle. No fluid collections. 2. No acute osseous abnormality, notably no CT evidence of acute osteomyelitis. ACT 112: Negative or not required by law. The above report was generated using voice recognition software. It may contain grammatical, syntax or spelling errors. Electronically signed by: Reece Catalan M.D. 07/24/2024 2:45 PM Supervising Physician Co-Signing Physician Notes Pt seen and examined by me , care coordinated w/ T. GREGORIA Vazquez, pls refer to her note above for further detail. 64 yo M with hx of uncontrolled type 2 diabetes, HTN, GERD, HLD, recent AVRmechanical valve 2022 on Coumadin who presents to the ED today on 07/24/2024 with complaints of pain in his left heel and difficulty walking. Patient reports when he took his sock off the other day, he noted discharge blood and pus coming from the heel of his foot. He also reports some intermittent shortness of breath and cough over the past few days. Found to be positive for Influenza A. INR found to be 1. Pt reports he takes his medications. Glc level in 500s in the ED and given IV insulin in ED. Currently laying in bed in NAD. He is awake, alert, answers appropriately. On RA. mild rhonchi noted on right, no wheezing. heart sounds regular. sound of mechanical valve noted. abdomen soft, nontender. No LE edema, pt moves extremities. Feet w/ dry skin. L foot with heel wound and wound on lateral foot. Left foot CT showed mild subcutaneous edema, no fluid collections, no evidence of osteomyelitis. ESR, CRP elevated. lactate 3.7, procalcitonin 0.94. blood cultures pending. Patient received IV Zosyn in ED. Obtain L foot MRI, consult podiatry. Start IV heparin, monitor INR. cont zosyn, add doxy, add tamiflu. await cultx. glycemic pharm. consult.Check A1c. MD Elva
[2024-07-24 16:03] LABS: C Reactive Protein 6.72 mg/dl (0-0.5)
[2024-07-24 16:08] LABS: Troponin I High Sensitivity 23.1 pg/ml (0-20)
[2024-07-24] MEDS ORDERED: GLUCOSE 40% GEL 15 GM TUBE PO PRN (16:29)
[2024-07-24] MEDS ORDERED: DEXTROSE 50% 50 ML SYRINGE IV PRN (16:29)
[2024-07-24] MEDS ORDERED: GLUCAGON FOR INJ 1 MG VIAL SQ PRN (16:29)
[2024-07-24] MEDS: SODIUM CHLORIDE 0.9% 500 ML IV SCH (17:08)
[2024-07-24] MEDS: OSELTAMIVIR PHOSPHATE 75 MG CAP PO ONE (17:10)
[2024-07-24] MEDS: NICOTINE 14 MG/24 HR PATCH TD SCH (17:10)
[2024-07-24] MEDS: LANTUS PER UNIT CHARGE SC ONE (17:41)
[2024-07-24] MEDS: INSULIN ASPART PER UNIT CHARGE SC SCH (17:41)
--- OUTSIDE RECORDS SUMMARY | 2024-07-24 17:42 | External Medical Summary | Summary of Care ---
Author Name Unknown Organization [facility] Address [address] [place] [facility] [place] [address] Phone [phone] Care Team Providers Care Service Crew Leader Name Role Phone Anabel Ortiz MD Primary Care Provider Reason for Visit * Reason Onset Date Comments Return To Work 07/08/2024 Note for work; o n top of fmla paperwork Encounter Details Date Type Department Care Team (Late st Contact Info) Description 07/08/2024 Telephone Family Practice [facility] [address] [place] [address] Anabel Ortiz MD [address] [place] [address] Return To Work (Note for work; on top of f... Allergies Active Allergy Reactions Criticality Noted Date Comments Erythromycin 07/06/1997 Stomach pain documented as of this encounter (statuses as of 07/16/2024) Medications MULTIVITAMINS PO TABS Take 1 Tablet by mouth every morning. Active Calcium Carbonate Antacid 500 MG Oral Tablet Chewable Take 1 Tablet by mouth as needed. As needed 5 Active ONETOUCH DELICA LANCETS 33G MISC TEST SUGAR DAILY 100 Each 5 8 Active ONETOUCH ULTRA BLUE STRPIndications: Type 2 diabetes mellitus with hemoglobin A1c goal of less than 7.0% ([facility]) USE UP TO 4 TIMES A DAY DIRECTED. 100 Strip 5 9 Active Cyclobenzaprine HCl 5 MG Oral Tablet (Flexeril)Indica tions:Low back pain radiating to left lower extremity Take by mouth 1 Tablet 2 times a day as needed for Muscle spasms. 12 Tablet 2 Active Clopidogrel Bisulfate 75 MG Oral Tablet (pLAVix)Indicati ons:TIA (transient ischemic attack) Take 1 Tablet (75 [...] Oral Tablet Extended Release 24 Hour (toPROL XL)Indications:H [place], goal below 130/80 Take 1 Tablet by mouth in the morning. 90 Tablet 3 3 Active Furosemide 40 MG Oral Tablet (Lasix) Take 1 Tablet by mouth in the morning. 30 Tablet 3 Active Additional Information Patient not taking.Reported on 06/18/2024 Potassium Chloride ER 10 MEQ Oral Tablet Extended Release Take 2 Tablets by mouth in the morning. 30 Tablet 3 Active Omeprazole 20 MG Oral Capsule Delayed Release (PriLOSEC)Indica tions:Gastroesop hageal reflux disease without esophagitis Take 1 Capsule by mouth in the morning. 1 hour before the first meal of the day.. 90 Capsule 1 4 Active Rosuvastatin Calcium 40 MG Oral Tablet (Crestor)Indicat ions:Dyslipidemi a, goal LDL below 70 Take 1 Tablet by mouth in the morning. 90 Tablet 4 Active Aspirin 81 MG Oral Tablet ChewableIndicati ons:History of mechanical aortic valve replacement Chew 1 Tablet by mouth in the morning with food 72 Tablet 4 4 Active Lisinopril 5 MG Oral Tablet (Prinivil) Take 1 Tablet by mouth in the morning. 4 Active Warfarin Sodium 2.5 MG Oral Tablet (Coumadin) Take 1 Tablet by mouth in the morning. Per [facility] instructions. Active Gabapentin 300 MG Oral Capsule (Neurontin) Take 1 Capsule by mouth in the morning and 1 Capsule at noon and 1 Capsule before bedtime. 270 Capsule 3 4 Active NovoLIN 70/30 FlexPen (70-30) 100 UNIT/ML Suspension Pen-injectorIndi cations:Type 2 diabetes mellitus with hemoglobin A1c goal of less than 7.0% ([facility]) Inject 33 Units under the skin in the morning and 33 Units in the evening. 60 mL 3 4 Active DULoxetine HCl 30 MG Oral Capsule Delayed Release Particles (Cymbalta) Take 1 Capsule by mouth in the morning. Do not cut, crush or chew. 30 Capsule 5 4 Active documented as of this encounter (statuses as of 07/16/2024) Active Problems Problem Noted Date Diagnosed Date [...] as of this encounter (statuses as of 07/16/2024) Resolved Problems Problem Noted Date Diagnosed Date [...] as of this encounter (statuses as of 07/16/2024) Immunizations Name Administration Dates Next Due COVID-19 mRNA, LNP-s, No Pre serve, 2-Dose Series (Moderna) 11/25/2020,10/28/2020 Diptheria/Tetanus (Adult) 08/06/1992 Hepatitis B, 20+ yrs 05/19/2015,11/19/2014,05/06 PPD 05/06/2014,05/18/2009 Pneumococcal Conjugate Vacci ne, 20-valent ([id number]) 01/19/2022 Pneumococcal Polysaccharide PPV23 (Pneumovax) 08/22/2013 Seasonal Influenza Vac., MDV , IM, 0.5 mL (Fluzone) 05/05/2014 Seasonal Influenza Virus Vac cine, Unspecified Formulation 05/25/1998 Seasonal Influenza, PF, 6 M & above, IM , (FluLaval or Fluzone) 05/09/2023,04/04/2022,05/16/2021,04/19 Seasonal Influenza, Quadriva lent, No Preserve, IM 06/04/2018,04/23/2017,05/03/2016,04/21 Seasonal Influenza, Quadriva lent, No Preserve, Mdck 06/21/2019 Seasonal Influenza, Trivalen t, (IIV3), PF, (Fluzone) 05/07/2024 TD - Tetanus/Diptheria (ADULT) 08/02/2006,2003 TDAP (age 10 and older)(Boostrix) 03/07/2013 Zoster Vaccine Recombinant (Shingrix) 01/19/2022 ,05/16/2021 documented as of this encounter Social History Tobacco Use Types Packs/Day Years Used Date Smoking Tobacco: Some Days Cigarettes 0.5 48 Passive Smoke Exposure: Past Smokeless Tobacco: Never Comments:Working on quitting . Father smoked Alcohol Use Standard Drinks/Week Comments No 0 [...] Industry Job Start Date Job End Date [employer] work Not on file Not on file Not on file documented as of this encounter Functional Status * Are you [...] 2:13 AM EDT Jil Sebastian LPN * Because of a physical, mental, [...] Entry Date Author No 04/20/2023 2:13 AM BRITTANYT Jil Sebastian LPN documented in this encounter Miscellaneous Notes * Telephone Encounter - KanNeyda reyna OSA - 07/16/2024 10:55 AM EST Patient has been notified of the message. Patient has no further questions. 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 * Telephone Encounter - Marielle Parry MED ASSIST - 07/10/2024 7:33 AM EST Pended. * Telephone Encounter - Alejo Baker OSA - 07/08/2024 2:15 PM EST School or Work Note?: Work ... This is in addition to the [facility] paperwork. Has patient been seen for the current issue?Yes, patient has been seen for leg pain/back pain by Mathew causing missed work/school (Call Details not required). 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 documented in this encounter Plan of Treatment Health Maintenance Due Date Last Done Comments Alpha-1 Antitrypsin 01/02/1980 Cologuard 2007 Fecal Occult Blood Test 2007 Sigmoidoscopy 2007 DISCUSS TOBACCO CESSATION (REFER TO SMARTSET #3291) 12/22/2022 12/22/2021 DTap/Tdap Vaccines (2 - Td or Tdap) 03/07/2023 03/07/2013, 08/02/2006, 06/15/2004, Additional history exists Albumin/Creatinine Ratio 10/17/2024 024, 12/12/2021, 12/14/2016, Additional history exists Diabetic Eye Exam 10/17/2024 10/18/2023, , 06/14/2017, Additional history exists Diabetic Foot Exam 10/17/2024 10/18/2023, 0 01/19/2022, 03/01/2020, Additional history exists GFR 10/17/2024 10/18/2023, 04/09, 04/26/2023, Additional history exists HbA1c 11/05/2024 05/07/2024, 10/07, 04/20/2023, Additional history exists Depression Screening 05/07/2025 05/07/2024 O2 ASSESSMENT COMPLETED IN PAST YEAR FOR COPD 06/18/2025 06/18/2024 Colonoscopy 06/12/2026 06/12/2016, 06/12/2016 Colorectal Cancer Screening 06/12/2026 Hepatitis B Vaccine Completed 05/19/2015, 11/19/2014, 05/06/2014 COVID-19 Vaccine Discontinued 11/25/2020, 10/28/2020 Lung Cancer Screening Completed 01/04/2022 , 06/13/2021, 11/19/2017, Additional history exists Pneumococcal Vaccine: 50+ Years Completed 01/19/2022, 08/22/2013 Zoster Vaccines Completed 01/19/2022, 05/16/2021 Influenza Vaccine (FLU shot) Completed 05/07/2024, 05/09/2023, 04/04/2022, Additional history exists HIV Screening Discontinued HPV (Gardasil) Vaccine Aged Out No lo nger eligible based on patient's age to complete this topic MENINGOCOCCAL (MENACTRA/MENVEO) Aged Out No longer eligible based on patient's age to complete this topic documented as of this encounter Medical Devices Implanted Type Area Respiratory Coordinator Device Identifier Shelf Expiration Date Model / Serial / Lot Cath Thermodilution 6fr - [id number] Implanted:Qty: 1 on 04/20/2023 at [facility] [employer] [id number] 11/13/2024 [id number] / / [id number] Valve Aortic Mech 21mm - [id number] - [id number] Implanted:Qty: 1 on 04/23/2023 by Zbigniew Linder MD [place] [facility] [place]: Heart [employer] [id number] 09/04/2028 ONXACE-2 [id number] / [id number] Suture Steel 6 B&S19 M654g - [id number] Implanted:Qty: 8 on 04/23/2023 by Zbigniew Linder MD [place] [facility] [place]: Sternum JNJ : [employer] 12/07/2027 [id number] / / [id number] documented as of this encounter Visit Diagnoses Diagnosis Spinal stenosis of lumbar region with neurogenic claudication- Primary Spinal stenosis, lumbar region, with neurogenic claudication documented in this encounter Advance Directives * [...] and were consensually agreed upon. Care Teams Service Crew Leader Relationship Specialty Start Date End Date Anabel Ortiz MD PCP - General Internal Medicine 02/11/21 documented as of this encounter
--- OUTSIDE RECORDS SUMMARY | 2024-07-24 17:42 | External Medical Summary | Summary of Care ---
Author Name Unknown Organization [facility] Address [address] [facility] [place] [address] Phone [phone] Care Team Providers Care Student Recruiter Name Role Phone Anabel Ortiz MD Primary Care Provider Reason for Visit * Reason Onset Date Comments Return To Work 07/08/2024 Note for work; o n top of fmla paperwork Encounter Details Date Type Department Care Team (Late st Contact Info) Description 07/08/2024 Telephone Family Practice [facility] [address] [place] [address] Anabel Ortiz MD [address] [place] [address] Return To Work (Note for work; on top of f... Allergies Active Allergy Reactions Criticality Noted Date Comments Erythromycin 07/06/1997 Stomach pain documented as of this encounter (statuses as of 07/10/2024) Medications MULTIVITAMINS PO TABS Take 1 Tablet by mouth every morning. Active Calcium Carbonate Antacid 500 MG Oral Tablet Chewable Take 1 Tablet by mouth as needed. As needed 5 Active ONETOUCH DELICA LANCETS 33G MISC TEST SUGAR DAILY 100 Each 5 8 Active ONETOUCH ULTRA BLUE STRPIndications: Type 2 diabetes mellitus with hemoglobin A1c goal of less than 7.0% ([facility]) USE UP TO 4 TIMES A DAY [...] Tablet by mouth in the morning. Per [facility] instructions. Active Gabapentin 300 MG Oral Capsule (Neurontin) Take 1 Capsule by mouth in the morning and 1 Capsule at noon and 1 Capsule before bedtime. 270 Capsule 3 4 Active NovoLIN 70/30 FlexPen (70-30) 100 UNIT/ML Suspension Pen-injectorIndi cations:Type 2 diabetes mellitus with hemoglobin A1c goal of less than 7.0% ([facility]) Inject 33 Units under the skin in the morning and 33 Units in the evening. 60 mL 3 4 Active DULoxetine HCl 30 MG Oral Capsule Delayed Release Particles (Cymbalta) Take 1 Capsule by mouth in the morning. Do not cut, crush or chew. 30 Capsule 5 4 Active documented as of this encounter (statuses as of 07/10/2024) Active Problems Problem Noted Date Diagnosed Date [...] as of this encounter (statuses as of 07/10/2024) Resolved Problems Problem Noted Date Diagnosed Date [...] as of this encounter (statuses as of 07/10/2024) Immunizations Name Administration Dates Next Due COVID-19 mRNA, LNP-s, No Pre serve, 2-Dose Series (Moderna) 11/25/2020,10/28/2020 Hepatitis B, 20+ yrs 05/19/2015,11/19/2014,05/06 PPD 05/06/2014,05/18/2009 Pneumococcal Conjugate Vacci ne, 20-valent ([id number]) 01/19/2022 Pneumococcal Polysaccharide PPV23 (Pneumovax) 08/22/2013 Seasonal [...] Industry Job Start Date Job End Date [employer] work Not on file Not on file [...] of Assessment Author No 04/20/2023 2:13 AM BRITTANYT Jil Sebastian LPN documented as of this encounter Mental Status * Because of a physical, mental, or emotional condition, do you have serious difficulty concentrating, remembering, or making decisions? (5 years old or older) Answer Entry Date Author No 04/20/2023 2:13 AM Jil Ulrich LPN documented in this encounter Miscellaneous Notes * Telephone Encounter - Tom Randall MD - 07/10/2024 8:16 AM EST Signed. * Telephone Encounter - Marielle Parry MED ASSIST - 07/10/2024 7:33 AM EST Pended. * Telephone Encounter - Alejo Baker OSA - 07/08/2024 2:15 PM EST School or Work Note?: Work ... This is in addition to the [facility] paperwork. Has patient been seen for the current issue?Yes, patient has been seen for leg pain/back pain by Mathew causing missed work/school (Call Details not required). 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 Plan of Treatment [...] this encounter Medical Devices Implanted Type Area Business Development Associate Device Identifier Shelf Expiration Date Model / Serial / Lot Cath Thermodilution 6fr - [id number] Implanted:Qty: 1 on 04/20/2023 at [facility] [employer] [id number] 11/13/2024 [id number] / / [id number] Valve Aortic [facility] 21mm - [id number] - [id number] Implanted:Qty: 1 on 04/23/2023 by Zbigniew Linder MD at [place] [facility] N/A: Heart [employer] [id number] 09/04/2028 ONXACE-2 [id number] / [id number] Suture Steel 6 B&S19 M654g - [id number] Implanted:Qty: 8 on 04/23/2023 by Zbigniew Linder MD at [place] [facility] [place] N/A: Sternum JNJ : [employer] 12/07/2027 [...] Question Answer Comments Discussion of Advance Direct rosaenne occurred with: Not Discussed due to patient's [...] and were consensually agreed upon. Care Teams Student Recruiter Relationship Specialty Start Date End Date Anabel Ortiz MD PCP - General Internal Medicine 02/11/21 documented as of this encounter
--- OUTSIDE RECORDS SUMMARY | 2024-07-24 17:42 | External Medical Summary | Summary of Care ---
Author Name Unknown Organization [facility] Address [address] [place] [address] Phone [phone] Care Team Providers Care Research Physiologist Name Role Phone Anabel Ortiz MD Primary Care Provider Reason for Visit * Reason Onset Date Comments Forms Request 06/30/2024 Encounter Details Date Type Department Care Team (Late st Contact Info) Description 06/30/[address] [facility] [address] [place] [address] Anabel Ortiz MD [address] [place] [address] Forms Request Allergies Active Allergy Reactions Criticality Noted Date Comments Erythromycin 07/06/1997 Stomach pain documented as of this encounter (statuses as of 07/11/2024) Medications MULTIVITAMINS PO TABS Take 1 Tablet by mouth every morning. Active Calcium Carbonate Antacid 500 MG Oral Tablet Chewable Take 1 Tablet by mouth as needed. As needed 5 Active ONETOUCH DELICA LANCETS 33G MISC TEST SUGAR DAILY 100 Each 5 8 Active ONETOUCH ULTRA BLUE STRPIndications: Type 2 diabetes mellitus with hemoglobin A1c goal of less than 7.0% ([facility]) USE UP TO 4 TIMES A DAY [...] Tablet by mouth in the morning. Per [facility] instructions. Active Gabapentin 300 MG Oral Capsule (Neurontin) Take 1 Capsule by mouth in the morning and 1 Capsule at noon and 1 Capsule before bedtime. 270 Capsule 3 4 Active NovoLIN 70/30 FlexPen (70-30) 100 UNIT/ML Suspension Pen-injectorIndi cations:Type 2 diabetes mellitus with hemoglobin A1c goal of less than 7.0% ([facility]) Inject 33 Units under the skin in the morning and 33 Units in the evening. 60 mL 3 4 Active DULoxetine HCl 30 MG Oral Capsule Delayed Release Particles (Cymbalta) Take 1 Capsule by mouth in the morning. Do not cut, crush or chew. 30 Capsule 5 4 Active documented as of this encounter (statuses as of 07/11/2024) Active Problems Problem Noted Date Diagnosed Date [...] as of this encounter (statuses as of 07/11/2024) Resolved Problems Problem Noted Date Diagnosed Date [...] as of this encounter (statuses as of 07/11/2024) Immunizations Name Administration Dates Next Due COVID-19 mRNA, LNP-s, No Pre serve, 2-Dose Series (Moderna) 11/25/2020,10/28/2020 Diptheria/Tetanus (Adult) 08/06/1992 Hepatitis B, 20+ yrs 05/19/2015,11/19/2014,05/06 PPD 05/06/2014,05/18/2009 Pneumococcal Conjugate Vacci ne, 20-valent ([id number]) 01/19/2022 Pneumococcal Polysaccharide PPV23 (Pneumovax) 08/22/2013 Seasonal [...] Industry Job Start Date Job End Date [employer] work Not on file Not on file [...] 04/20/2023 2:13 AM EDT Jil Sebastian LPN documented as of this encounter Mental Status * Because of a physical, mental, or emotional condition, do you have serious difficulty concentrating, remembering, or making decisions? (5 years old or older) Answer Entry Date Author No 04/20/2023 2:13 AM EDT Jil Sebastian LPN documented in this encounter Miscellaneous Notes * Telephone Encounter - Anabel Ortiz MD - 07/11/2024 8:04 AM EST Thank you! * Telephone Encounter - Miladys Ruvalcaba LPN - 07/08/2024 1:59 PM EST Called and spoke with pt, informed pt that form has been completes. Form faxed to [facility], copy sent to [facility] and original mailed out to pt's address on file. * Telephone Encounter - Tom Andujar MD - 07/08/2024 12:55 PM EST Form completed and signed. Please fax today. Thanks. * Telephone Encounter - Anabel Ortiz MD - 07/08/2024 11:00 AM EST Patient saw Dr Andujar 06/18/24. * Telephone Encounter - Jailene Rider LPN - 07/04/2024 9:[address] Ortiz already knew about this form and we needed the specific date, which the pt gave us, we just need a covering provider to sign the form for Dr. Ortiz while she is out. Form is in her folder. * Telephone Encounter - Reynaldo Oliveira CRNP - 07/03/2024 4:12 PM EST Never seen this patient. Please schedule OV with anyone. * Telephone Encounter - Emely Rosa LPN - 07/03/2024 10:29 AM EST Spoke with patient. Form is for continuous FMLA until cleared starting from 06/03/24. Pt stated form is due 07/08/24. Is there anyone that would sign this for Dr. Ortiz since she is out?? * Telephone Encounter - Marielle Parry MED ASSIST - 06/30/2024 12:24 PM EST message left for patient to call back. FMLA form in Dr. Ortiz' to-do folder. Please ask patient if this is a continuous leave of absence until he is seen by Dr. Paris? Should start of leave be 06/03when he was admitted to hospital? documented in this encounter Plan of Treatment [...] this encounter Medical Devices Implanted Type Area Time Cycle Operator Device Identifier Shelf Expiration Date Model / Serial / Lot Cath Thermodilution 6fr - [id number] Implanted:Qty: 1 on 04/20/2023 at [facility] [place] [employer] [id number] 11/13/2024 [id number] / / [id number] Valve Aortic Mech 21mm - [id number] - [id number] Implanted:Qty: 1 on 04/23/2023 by Zbigniew Linder MD at [place] [facility] [place] N/A: Heart [employer] [id number] 09/04/2028 ONXACE-2 [id number] / [id number] Suture Steel 6 B&S19 M654g - [id number] Implanted:Qty: 8 on 04/23/2023 by Zbigniew Linder MD at [place] [facility] [place] N/A: Sternum JNJ : [employer] 12/07/2027 [id number] / / [id number] documented as of this encounter Advance Directives * Full Code [...] and were consensually agreed upon. Care Teams Research Physiologist Relationship Specialty Start Date End Date Anabel Ortiz MD PCP - General Internal Medicine 02/11/21 documented as of this encounter
--- OUTSIDE RECORDS SUMMARY | 2024-07-24 17:42 | External Medical Summary | Summary of Care ---
Author Name Unknown Organization [facility] Address [address] [place] [address] Phone [phone] Care Team Providers Care Senior Electronics Technician Name Role Phone Anabel Ortiz MD Primary Care Provider Reason for Visit * Reason Onset Date Comments Return To Work 07/08/2024 Note for work; o n top of fmla paperwork Encounter Details Date Type Department Care Team (Late st Contact Info) Description 07/08/2024 Telephone Family Practice [facility] [address] [place] [address] Anabel Ortiz MD [address] [place] [phone] Return To Work (Note for work; on top of f... Allergies Active Allergy Reactions Criticality Noted Date Comments Erythromycin 07/06/1997 Stomach pain documented as of this encounter (statuses as of 07/17/2024) Medications MULTIVITAMINS PO TABS Take 1 Tablet by mouth every morning. Active Calcium Carbonate Antacid 500 MG Oral Tablet Chewable Take 1 Tablet by mouth as needed. As needed 5 Active ONETOUCH DELICA LANCETS 33G MISC TEST SUGAR DAILY 100 Each 5 8 Active ONETOUCH ULTRA BLUE STRPIndications: Type 2 diabetes mellitus with hemoglobin A1c goal of less than 7.0% ([facility]) USE UP TO 4 TIMES A DAY [...] by mouth in the morning. Per [facility] instructions. Active Gabapentin 300 MG Oral Capsule (Neurontin) Take 1 Capsule by mouth in the morning and 1 Capsule at noon and 1 Capsule before bedtime. 270 Capsule 3 4 Active NovoLIN 70/30 FlexPen (70-30) 100 UNIT/ML Suspension Pen-injectorIndi cations:Type 2 diabetes mellitus with hemoglobin A1c goal of less than 7.0% ([facility]) Inject 33 Units under the skin in the morning and 33 Units in the evening. 60 mL 3 4 Active DULoxetine HCl 30 MG Oral Capsule Delayed Release Particles (Cymbalta) Take 1 Capsule by mouth in the morning. Do not cut, crush or chew. 30 Capsule 5 4 Active documented as of this encounter (statuses as of 07/17/2024) Active Problems Problem Noted Date Diagnosed Date [...] as of this encounter (statuses as of 07/17/2024) Resolved Problems Problem Noted Date Diagnosed Date [...] as of this encounter (statuses as of 07/17/2024) Immunizations Name Administration Dates Next Due COVID-19 mRNA, LNP-s, No Pre serve, 2-Dose Series (Moderna) 11/25/2020,10/28/2020 Diptheria/Tetanus (Adult) 08/06/1992 Hepatitis B, 20+ yrs 05/19/2015,11/19/2014,05/06 PPD 05/06/2014,05/18/2009 Pneumococcal Conjugate Vacci ne, 20-valent (Ysftrdx23) 01/19/2022 Pneumococcal Polysaccharide PPV23 (Pneumovax) 08/22/2013 Seasonal [...] Industry Job Start Date Job End Date [employer] work Not on file Not on file [...] of Assessment Author No 04/20/2023 2:13 AM EDJil Butler LPN documented as of this encounter Mental Status * Because of a physical, mental, or emotional condition, do you have serious difficulty concentrating, remembering, or making decisions? (5 years old or older) Answer Entry Date Author No 04/20/2023 2:13 AM BRITTANYT Jil Sebastian LPN documented in this encounter Miscellaneous Notes * Telephone Encounter - Jass Taveras, RASHEL - 07/17/2024 4:00 PM EST Patient has been notified of the message. Patient has no further questions. * Telephone Encounter - Neyda Keller OSA - 07/16/2024 10:55 AM EST Patient has been notified of the message. Patient has no further questions. 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 * Telephone Encounter - Marielle Parry MED ASSIST - 07/10/2024 7:33 AM EST Pended. * Telephone Encounter - Alejo Baker OSA - 07/08/2024 2:15 PM EST School or Work Note?: Work ... This is in addition to the [place] paperwork. Has patient been seen for the current issue?Yes, patient has been seen for leg pain/back pain by Mathew causing missed work/school (Call Details not required). Dates Missed: from 06.18.24 thru surgery Date Returning: undetermined - based on date of surgery Note will be: Picked up at clinic Fax number or phone number to call when note is completed: [phone] / patient will lemon picker documented in this encounter Plan of Treatment Health Maintenance Due Date Last Done Comments Alpha-1 Antitrypsin 01/02/1980 Cologuard 2007 Fecal Occult Blood Test 2007 Sigmoidoscopy 2007 DISCUSS TOBACCO CESSATION (REFER TO SMARTSET #3290) 12/22/2022 12/22/2021 DTap/Tdap Vaccines (2 - Td [...] this encounter Medical Devices Implanted Type Area Manager Business Management Device Identifier Shelf Expiration Date Model / Serial / Lot Cath Thermodilution 6fr - [id number] Implanted:Qty: 1 on 04/20/2023 at [facility] [employer] [id number] 11/13/2024 [id number] / / [id number] Valve Aortic Mech 21mm - [id number] - [id number] Implanted:Qty: 1 on 04/23/2023 by Zbigniew Linder MD at [facility] N/A: Heart [employer] [id number] 09/04/2028 ONXACE-2 1 / [id number] / [id number] Suture Steel 6 B&S19 M654g - [id number] Implanted:Qty: 8 on 04/23/2023 by Zbigniew Linder MD at OR [facility] N/A: Sternum JNJ : [employer] 12/07/2027 [...] and were consensually agreed upon. Care Teams Senior Electronics Technician Relationship Specialty Start Date End Date Anabel Ortiz MD PCP - General Internal Medicine 02/11/21 documented as of this encounter
--- OUTSIDE RECORDS SUMMARY | 2024-07-24 17:42 | External Medical Summary | Summary of Care ---
Author Name Unknown Organization [facility] Address [address] [facility] [place] [place] [address] Phone [phone] Care Team Providers Care State Assessed Properties Director Name Role Phone Anabel Ortiz MD Primary Care Provider Reason for Visit * Reason Onset Date Comments Return To Work 07/08/2024 Note for work; o n top of fmla paperwork Encounter Details Date Type Department Care Team (Late st Contact Info) Description 07/08/2024 Telephone Family Practice [facility] [address] [place] [address] Anabel Ortiz MD [address] [place] [phone] Return To Work (Note for work; on [...] hemoglobin A1c goal of less than 7.0% ([facility]) USE UP TO 4 TIMES [...] Tablet by mouth in the morning. Per [facility] instructions. Active Gabapentin 300 MG Oral Capsule (Neurontin) Take 1 Capsule by mouth in the morning and 1 Capsule at noon and 1 Capsule before bedtime. 270 Capsule 3 4 Active NovoLIN 70/30 FlexPen (70-30) 100 UNIT/ML Suspension Pen-injectorIndi cations:Type 2 diabetes mellitus with hemoglobin A1c goal of less than 7.0% ([facility]) Inject 33 Units under the [...] PPD 05/06/2014,05/18/2009 Pneumococcal Conjugate Vacci ne, 20-valent ([id number]) 01/19/2022 Pneumococcal Polysaccharide PPV23 (Pneumovax) 08/22/2013 Seasonal [...] Industry Job Start Date Job End Date [employer] work Not on file Not on file [...] 04/20/2023 2:13 AM BRITTANYT Jil Sebastian LPN * Because of a [...] encounter Miscellaneous Notes * Telephone Encounter - Miladys Ruvalcaba LPN - 07/10/2024 8:45 AM EST Called pt and left vm message that his work note is ready and 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 * Telephone Encounter - Marielle Parry MED ASSIST - 07/10/2024 7:33 AM EST Pended. * Telephone Encounter - Alejo Baker OSA - 07/08/2024 2:15 PM EST School or Work Note?: Work ... This is in addition to the [facility] paperwork. Has patient been seen for the current issue?Yes, patient has been seen for leg pain/back pain by Mathew causing missed work/school (Call Details not required). Dates Missed: from 06.18.24 thru surgery Date Returning: undetermined - based on date of surgery Note will be: Picked up at clinic Fax number or phone number to call when note is completed: [phone] / patient will picking tech documented in this encounter Plan of Treatment Health Maintenance Due Date Last Done Comments Alpha-1 Antitrypsin 01/02/1980 Cologuard 2007 Fecal Occult Blood Test 2007 Sigmoidoscopy 2007 DISCUSS TOBACCO CESSATION (REFER TO SMARTSET #3291) 12/22/2022 12/22/2021 DTap/Tdap Vaccines (2 - Td or Tdap) 03/07/2023 03/07/2013, 08/02/2006, 06/15/2004, Additional history exists Albumin/Creatinine Ratio 10/17/2024 04/11/2 024, 12/12/2021, 12/14/2016, Additional history exists Diabetic [...] this encounter Medical Devices Implanted Type Area Spun Paste Machine Operator Device Identifier Shelf Expiration Date Model / Serial / Lot Cath Thermodilution 6fr - [id number] Implanted:Qty: 1 on 04/20/2023 at [facility] [employer] [id number] 11/13/2024 [id number] / / [id number] Valve Aortic Mech 21mm - [id number] - [id number] Implanted:Qty: 1 on 04/23/2023 by Zbigniew Linder MD at [place] [facility] N/A: Heart [employer] [id number] 09/04/2028 ONXACE-2 [id number] / [id number] Suture Steel 6 B&S19 M654g - [id number] Implanted:Qty: 8 on 04/23/2023 by Zbigniew Linder MD at [place] [facility] N/A: Sternum JNJ : [employer] 12/07/2027 [...] and were consensually agreed upon. Care Teams State Assessed Properties Director Relationship Specialty Start Date End Date Anabel Ortiz MD PCP - General Internal Medicine 02/11/21 documented as of this encounter
[2024-07-24] MEDS: HEPARIN SOD (PORCINE) 1000 UNIT/ML IV ONE (18:36)
[2024-07-24] MEDS: HEPARIN 25000 UNIT/500 ML 25,000 UNITS/500 ML BAG IV SCH (18:36)
[2024-07-24] MEDS: Heparin IV Adult Wt-Based Standard w/ INITIAL Bolus Protocol IV STA (18:37)
[2024-07-24] MEDS: DOXYCYCLINE HYCLATE 100 MG in DEXTROSE 5% MINI-B 100 ML IV SCH (18:37)
[2024-07-24 19:58] LABS: BUN Creatinine Ratio 16.8 (10-20); Calcium 7.7 mg/dl (8.6-10.3); Creatinine Clr Calc Pharmacy 55.3 ml/min; Potassium 3.8 mmol/L (3.5-5.1)
[2024-07-24] MEDS: guaiFENesin 600 MG TABCR PO STA (20:21)
[2024-07-24] MEDS: guaiFENesin 600 MG TABCR PO SCH (20:33)
[2024-07-24] MEDS: GABAPENTIN 300 MG CAP PO SCH (20:33)
--- NOTE | 2024-07-24 21:58 | Electrocardiogram Report ---
Test Reason : Blood Pressure : */* mmHG Vent. Rate : 109 BPM Atrial Rate : 109 BPM P-R Int : 148 ms QRS Dur : 90 ms QT Int : 352 ms P-R-T Axes : 80 74 55 degrees QTcB Int : 474 ms Sinus tachycardia Possible Left atrial enlargement Possible Anterior infarct , age undetermined Abnormal ECG When compared with ECG of 07-May-2024 19:47, No significant change was found Confirmed by Chris Aranda ([id number]) on 07/24/2024 9:57:27 PM Referred By: REFERRED SELF Confirmed By: Chris Aranda
[2024-07-24] MEDS: PIPERACILLIN/TAZOBACTAM 4.5 GM/100 ML BAG IV SCH (22:44)
[2024-07-24] MEDS: SODIUM CHLORIDE 0.9% 250 ML IV ONE (22:49)
[2024-07-24] MEDS: ONDANSETRON INJ 2 MG/ML 2 ML VIAL IV STA (22:56)
[2024-07-24] MEDS: OSELTAMIVIR PHOSPHATE SUSP 30 MG/5 ML UDP PO SCH (23:19)
[2024-07-25] MEDS: INSULIN ASPART PER UNIT CHARGE SC SCH (00:28)
--- NOTE | 2024-07-25 00:29 | Magnetic Resonance Report ---
Exam(s): MRI LEFT ANKLE Without Contrast EXAM: MR Left Lower Extremity Without Intravenous Contrast, Ankle CLINICAL HISTORY: Reason for exam: l heel wound. TECHNIQUE: Multiplanar magnetic resonance images of the left ankle without intravenous contrast. COMPARISON: X-rays dated 07/09/2024. FINDINGS: There is some mild soft tissue edema and swelling. No discrete fluid collection is noted. The visualized tendinous and muscular structures are unremarkable. Bony structures are intact. No evidence of acute fracture or dislocation. No gross bony destruction is seen. There is some slight bone marrow edema noted in the inferior posterior aspect of the calcaneus. IMPRESSION: There is some mild soft tissue edema and swelling. There is some slight bone marrow edema noted in the inferior posterior aspect of the calcaneus. It is of uncertain etiology. It may represent some mild bone bruising.. It is not typical for acute osteomyelitis. Electronically signed by: Tejas Reese MD 07/25/24 00:28 AM
[2024-07-25 02:22] LABS: ANTI-Xa, UFH(UnfractionatedHep 0.77 IU/ml (0.3-0.7)
[2024-07-25 05:58] LABS: Basophils # (auto) 0.01 K/uL (0.00-0.20); Basophils % (auto) 0.1 %; Hematocrit (blood only) 36.3 % (42.0-52.0); Hemoglobin 12.6 g/dl (14.0-18.0); Immature Granulocytes # (auto) 0.01 K/uL (0.01-0.20); Immature Granulocytes % (auto) 0.1 %; Lymphocytes % (auto) 13.1 %; Mean Corpuscular Hemoglobin 30.9 pg (25.0-34.0); Mean Corpuscular Hgb Conc 34.7 g/dL (32.0-36.0); Mean Platelet Volume 10.7 fL (9.4-12.4); Monocytes # (auto) 0.52 K/uL (0.11-0.59); Monocytes % (auto) 7.6 %; Neutrophils # (auto) 5.41 K/uL (1.40-6.50); Neutrophils % (auto) 79.1 %; Platelet Count 123 K/uL (130-400); RDW Standard Deviation 45.7 fL (36.4-46.3); Red Blood Count 4.08 M/uL (4.70-6.10); White Blood Count 6.85 K/ul (4.8-10.8)
[2024-07-25 06:05] LABS: Albumin Level 3.1 gm/dl (3.4-5.0); BUN Creatinine Ratio 21.1 (10-20); Bilirubin,Total 0.4 mg/dl (0.2-1.0); Calcium 7.7 mg/dl (8.6-10.3); Creatinine Clr Calc Pharmacy 66.5 ml/min; Magnesium 1.8 mg/dl (1.7-2.4); Potassium 3.8 mmol/L (3.5-5.1); Total Protein 6.1 gm/dl (6.0-8.3)
[2024-07-25 06:21] LABS: INR 1.1 (0.9-1.1); Prothrombin Time 11.7 Seconds (9.0-12.0)
[2024-07-25 07:12] LABS: Estimated Average Glucose 266 mg/dl; Hemoglobin A1C 10.9 % (4.5-5.6)
[2024-07-25] MEDS: ACETAMINOPHEN 325 MG TAB PO PRN (08:03)
[2024-07-25] MEDS: ASPIRIN 81 MG ECTAB PO SCH (08:03)
[2024-07-25] MEDS: PANTOprazole 40 MG TAB PO SCH (08:04)
[2024-07-25 08:57] LABS: ANTI-Xa, UFH(UnfractionatedHep 0.57 IU/ml (0.3-0.7)
[2024-07-25] MEDS: LANTUS PER UNIT CHARGE SC SCH (09:39)
[2024-07-25] MEDS: CALCIUM GLUCONATE 1,000 MG/60 ML BAG IV STA (09:39)
[2024-07-25] MEDS: GLUCOSE 10 TAB/TUBE PO PRN (11:42)
[2024-07-25] MEDS: oxyCODONE HCL IR 5 MG TAB (IMMEDIATE RELEASE) PO PRN (12:14)
[2024-07-25] MEDS ORDERED: Heparin IV Adult Wt-Based Standard w/ INITIAL Bolus Protocol IV SCH (12:31)
[2024-07-25] MEDS ORDERED: HEPARIN SOD (PORCINE) 1000 UNIT/ML IV ONE (12:42)
[2024-07-25] MEDS ORDERED: HEPARIN 25000 UNIT/500 ML 25,000 UNITS/500 ML BAG IV SCH (12:45)
--- NOTE | 2024-07-25 12:48 | Podiatry Consultation ---
Date of Consultation July 25, 2024 Assessment & Plan (1) Unstageable pressure ulcer of heel: Laterality: left Qualified Code(s): L89.620 - Pressure ulcer of left heel, unstageable Plan Left ankle: Not stable pressure ulcer to the posterior aspect of the left ankle. Concern for lower extremity arterial disease. Arterial duplex ultrasound is planned in consult has been placed with vascular surgery to evaluate. Reviewed patient's previous x-rays, CT scan and MRI results. MRI with bone marrow edema noted at the inferior posterior aspect of the calcaneus of uncertain etiology. There is no frankly exposed bone at the wound to the posterior heel at this time. -No recommendation for debridement or bone biopsy at this time. -Patient's case discussed with wound care nurse. I agree with recommendations for once daily application of Betadine to all wounds of the left foot. Patient should continue to float left heel to avoid contact with any surface. Heel of floading boots have been ordered. -I will continue to monitor patient's progress while he remains in the hospital and recommend follow-up with the wound care center at discharge for continued close monitoring of the left heel wound. Thank you for consulting podiatry to aid in the care of this patient. History of Present Illness Reason for Consultation: Wound left foot Attending Physician: Jose Lei MD History of Present Illness Patient is a 64-year-old male with past medical history significant for type 2 diabetes with diabetic peripheral neuropathy, hypertension, GERD, hyperlipidemia EVR mechanical valve 2022, current quarter pack a day smoker. He presents to the emergency department on 07/24/2024 with concern for drainage from a left foot wound. Reports mild pain to the posterior left heel and lateral left foot however when he started to see pus draining from the wounds he became concerned presented to the emergency department. Allergies Allergy/AdvReac Type Severity Reaction Status Date / Time erythromycin base Allergy Intermediate Abdominal Verified 07/08/24 12:35 Pain Home Medications Medication Instructions Recorded Confirmed Type aspirin 81 mg tablet,delayed 81 mg PO DAILY #30 tabs 06/02/24 07/24/24 Rx release cyclobenzaprine 5 mg tablet 5 mg PO TID PRN muscle spasm #30 06/02/24 07/24/24 Rx tabs insulin NPH-regular 70-30 U-100 33 unit (0.33 mL) subcut BID #15 mL 06/02/24 07/24/24 Rx insulin 100 unit/mL subcutaneous pen (Novolin 70-30 FlexPen U-100 Insulin) omeprazole 20 mg capsule,delayed 20 mg PO DAILYBB #30 caps 06/02/24 07/24/24 Rx release pen needle, diabetic 32 gauge x #50 ea 06/02/24 07/24/24 Rx /32" (Pen Needle) rosuvastatin 40 mg tablet 40 mg PO QAM #30 tabs 06/02/24 07/24/24 Rx warfarin 2.5 mg tablet 2.5 mg PO DAILY@1600 30 days #30 06/02/24 07/24/24 Rx tabs lisinopril 5 mg tablet (Zestril) 5 mg PO QAM #30 tabs 06/06/24 07/24/24 Rx gabapentin 300 mg capsule 300 mg PO TID #90 caps 07/08/24 07/24/24 Rx Patient History Medical History GERD (gastroesophageal reflux disease) ILD (interstitial lung disease) H/O TIA (transient ischemic attack) and stroke Stroke-like episode - History of TIA vs vertigo per cardio records 11/2021 (on Plavix) - 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 Repeat head CTA 08/2022 was unremarkable and no left ICA aneurysm identified Hypertension Hyperlipidemia PFO (patent foramen ovale) Small per 11/2021 [facility] imaging per cardio records Barretts esophagus Per records Gallbladder sludge reason for upcoming procedure Arthritis, gouty Hx of kidney disease PER PATIENT, ACUTE KIDNEY DISEASE 05/2022>WNL CURRENTLY GERD (gastroesophageal reflux disease) "silent/mild" Diabetes mellitus, type 2 Hx of pancreatitis HOSPITALIZED 05/2022>DKA and acute pancreatitis Aortic valve stenosis Severe per 05/2022 ECHO (PK 0.78-1.0cm2; AV mean PG 23.2mmHg; AV max velocity 3.684m/s) Chronic obstructive pulmonary disease MILD>NO INHALERS PER PATIENT Surgical History H/O mechanical aortic valve replacement Nausea and vomiting after administration of anesthetic agent H/O arthroscopic knee surgery + GANGLION CYST REMOVED>RT History of esophagogastroduodenoscopy (EGD) History of colonoscopy History of tooth extraction History of tonsillectomy and adenoidectomy History of cataract surgery RT/LEFT History of foot surgery RT History of carpal tunnel surgery LEFT Family History Other Diabetes Heart disease No family history of adverse response to anesthesia Social History Smoking Status: Current every day smoker Tobacco Type: Cigarettes Cigarettes Per Day: 4 CIG DAILY>ADVISED; Second Hand Exposure: No; Do You Dip or Chew Tobacco: No; Hx Alcohol Use: Yes Alcohol type: beer Hx Substance Use: No Preferred Language: Macedonian Communication Ability: Effective Optical Engineering Manager Required: No Beliefs That Will Affect Care: None marital status: Unknown Current Living Situation: Other Current Living Situation Comment: son Other Information That Helps Us Care for You: No Feels Safe at Home: Yes Safety Concerns: Feels Safe At This Time Assistive Devices: Walker Review of Systems Review of Systems: Patient denies nausea, vomiting, fever, chills, shortness of breath, chest pain. Does report cough which is intermittent and pain in the right foot. Reports instability of gait. Physical Exam Physical Exam: Const: Appears well developed and well nourished. No signs of acute distress present. CV: Extremities: No cyanosis or edema. Capillary refill time is less than 3-4 seconds all digits of the bilateral foot. Posterior tibial and dorsalis pedis pulses are non-palpable bilateral. Lymph: No palpable or visible regional lymphadenopathy. Skin: Thin atrophic skin the bilateral lower extremity with areas of dry patchy and flaking skin. Neuro: Loss of protective sensation to the toes x 10. Protective sensation returns at the level of the midfoot bilateral. Psych: Mood/Affect: Mood is normal. Affect is normal. Cognition: Orientation is intact to person, place and time. Focused lower extremity musculoskeletal exam: Leg: No pain with compression of the calf muscle. Ankles: Normal to inspection and palpation. No swelling bilaterally. No tenderne ss bilaterally. Motor strength is intact. Range of motion pain-free and unlimited. Feet: Normal to inspection and palpation. No obvious instability. Motor strength is intact. Range of motion pain-free and unlimited. -Superficial fissure x 2 on the lateral left foot: Skin breakdown to the level of subcutaneous tissue with mild surrounding erythema. No active drainage. Positive pain to palpation. -Unstageable pressure injury of the post erior left heel: No active drainage. Eschar overlying the wound bed is dry and stable. Mild pain to palpation. No periwound erythema or edema. No lymphangitis or streaking. Results & Data Vital Signs (Past 12 Hours) Vital Signs Temp Pulse Pulse Resp BP BP Pulse Ox 07/25/24 11:23 37.1 C 89 20 103/63 93 07/25/24 09:46 36.7 C 07/25/24 08:00 07/25/24 08:00 101 H 07/25/24 07:39 39.2 C H 103 H 19 138/58 L 93 07/25/24 03:18 37.4 C 105 H 18 125/70 94 07/25/24 01:12 146/73 H 93 O2 Del Method O2 Flow Rate 07/25/24 11:23 Room Air 07/25/24 09:46 07/25/24 08:00 Nasal Cannula 1 07/25/24 08:00 07/25/24 07:39 Nasal Cannula 1 07/25/24 03:18 Nasal Cannula 2 07/25/24 01:12 Nasal Cannula 2 Laboratory Results White blood count 6.85 ESR 36 Lactate 1.1 CRP 6.72 Hemoglobin A1c 10.9 Diagnostic Findings X-ray of the ankle 07/09/2024: Impression: No acute change noted. CT left foot 07/25/2024: Impression: 1 mild subcutaneous edema of the left foot and ankle. No fluid collections. 2 no acute osseous abnormality, notably no CT evidence of acute osteomyelitis. MRI left ankle 07/25/2024: IMPRESSION: There is some mild soft tissue edema and swelling. There is some slight bone marrow edema noted in the inferior posterior aspect of the calcaneus. It is of uncertain etiology. It may represent some mild bone bruising. It is not typical for acute osteomyelitis. PG Care Time/CCT Total # of Minutes Spent Total Time Spent with Patient: Total time spent is greater than 50% in coordination of care (as documented) at patient's floor/unit and/or counseling patient: [place] [address] IN/OBS CONSULT LVL 4,60M Patient Type New Medical Decision Making Low Complexity Diagnoses Pressure injury of left heel, unstageable L89.620 Laterality: left
[2024-07-25] MEDS: PREGABALIN 50 MG CAP PO SCH (13:24)
--- NOTE | 2024-07-25 14:36 | Pharmacy Report ---
Pharmacy Glycemic Short Note 2 - Date of Service July 25, 2024 - Glycemic Short BSG Results (Last 24 hours): 07/24/24 07/24/24 07/24/24 15:17 16:49 19:24 Glucose 354 H* POC Glucose 385 H* 357 H* 07/24/24 07/25/24 07/25/24 20:19 00:17 03:49 Glucose POC Glucose 266 H 172 H 282 H 07/25/24 07/25/24 07/25/24 05:33 07:19 11:26 Glucose 226 H POC Glucose 191 H 64 L* 07/25/24 07/25/24 11:28 11:57 Glucose POC Glucose 62 L* 100 H OUTPATIENT ANTIDIABETIC REGIMEN: * Novolin 70/30 33 units SQ BID * HbA1c 10.9 (07/25/24), 13.8 (05/29/24) ASSESSMENT: * Derek is a 64 YOM admitted with foot infection and influenza A infection with a history of T2DM. Pharmacy has been consulted to assist with glycemic management while inpatient. * BSG in 500s upon admission, decision was made to treat with an IV insulin bolus yesterday afternoon, AG slightly elevated, resolved upon repeat and BSGs decreased overnight with SQ insulin. * Fasting BSG this AM slightly above goal range, decided to continue with Lantus vs insulin NPH due to previous admission were glycemic control was not optimal with NPH. * Hypoglycemic with lunch, potentially caused by stacking correction overnight, NovoLog originally started based on historic data, will loosen correction factor slightly. PLAN FOR INPATIENT GLYCEMIC CONTROL: * Hold outpatient oral diabetes medications * Basal insulin * Lantus 20 units SQ QAM * Bolus insulin * NovoLog per scale ACHS or Q6hrs while NPO * Goal Range: Low 140 mg/dL - High 180 mg/dL * Correction Factor: 35 mg/dL/unit * Nutritional / Prandial insulin per carb ratio of 1 unit per 7 grams CHO consumed
--- NOTE | 2024-07-25 15:16 | Communication Note ---
Date of Service: July 25, 2024 Patient has biphasic to monophasic waveforms in the left lower extremity. REJI is 0.34. Will need CTA of abd, pelvis and runoff. Non invasives suggest inflow disease. No definite lower extremity occlusions noted on imaging. This patient does have severe ischemia but it appears chronic and does not need emergent intervention. Will order CTA and most likely can do arterial intervention next week on his inflow vessels.
--- NOTE | 2024-07-25 15:51 | Ultrasound Report ---
US arterial duplex LE LT HISTORY: 64 years-old Male concern for cold left foot COMPARISON: None TECHNIQUE: Lower extremity arterial Doppler with segmental pressures FINDINGS: Left-sided REJI of 0.34, right-sided REJI of 0.68 Extensive atherosclerosis. No arterial occlusion identified. Monophasic waveforms noted throughout wi th diminished waveforms. Spectral broadening noted within the lower leg arteries. Peak systolic veloc ities measure only up to 27 cm/s within the profunda femoris artery and measure up to 22 cm/s within the superficial femoral artery. IMPRESSION: 1. No acute arterial occlusion identified. 2. Diminished ABIs, left greater than right. 3. Extensive atherosclerosis with monophasic waveforms demonstrating diminished flow. ACT 112: Negative or not required by law. The above report was generated using voice recognition software. It may contain grammatical, syntax o r spelling errors. Electronically signed by: Reece Catalan M.D. 07/25/2024 3:35 PM
--- NOTE | 2024-07-25 16:05 | Hospitalist Progress Note ---
Date of Service July 25, 2024 Assessment & Plan (1) Ischemic rest pain of lower extremity: Plan: -left foot cold to touch, unfindable dorsalis pedis pulse, quite tender -has been getting worse since yesterday -vascular surgery and podiatry consulted, recommended arterial dopplers, CTA runoff, and OR slot next week Plan: -vascular surgery recs appreciated -podiatry recs appreciated -continue heparin drip for now -control glucose levels (2) Acute hypoxic respiratory failure: Plan: -in setting of influenza A and concern for overlying CAP Plan: -doxy/zosyn for now, deescalate based on sensitivities -start flutter valve, incentive spirometry (3) Influenza A: Plan: -noted on viral screen -see above (4) Pneumonia: Plan: -given hypoxia and imaging, concern for overlying CAP -negative MRSA swab Plan: -continue doxy/zosyn for now -f/u cultures (5) Hypocalcemia: Plan: -noted on arrival Plan: -replenish calcium (6) GERD (gastroesophageal reflux disease): Plan: -continue protonix (7) Barretts esophagus: Plan: -noted, continue protonix (8) Diabetes mellitus, type 2: Plan: -likely cause of severe PAD Plan: -insulin per protocol (9) H/O mechanical aortic valve replacement: Plan Feeding/fluids: Analgesia: tylenol/oxy Sedation: na Thromboprophylaxis: heparin drip Head up position: na Ulcer prophylaxis: protonix Glycemic control: insulin Spontaneous breathing trial: NC Bowel care: miralax prn Indwelling catheter removal: Deescalation of antibiotics: pending culture data I spent a total of 85 minutes coordinating, documenting, and providing care for this patient excluding time spent in the performance of separately billed services. Admission and Anticipated Discharge Date Admission Date: July 24, 2024 Subjective 64-year-old male with a pertinent history of uncontrolled diabetes type 2 who presents for left foot pain and some shortness of breath. In ED noted to have influenza and some edema in the left foot. Admitted to medicine, blood sugars were controlled MRI showed evidence of edema on the left foot without clear evidence of acute osteomyelitis. On morning rounds this hospitalist noted a left cold foot in association with the nurse, nurse was unable to define pulse on Doppler, this provider was not able to find pulses on Doppler either. Vascular surgery and podiatry were consulted. Transfer was considered but after vascular surgery consultation decided on intervention at next available OR slot. Patient is doing okay today. He states that his left foot hurts. He states that is getting worse. Has been hurting very severely for the past several hours. Worse than yesterday. Also feels short of breath. Review of Systems Review of Systems: CONSTITUTIONAL: Patient denies fevers, chills, sweats and weight changes. EYES: Patient denies any visual symptoms. EARS, NOSE, AND THROAT: No difficulties with hearing. No symptoms of rhinitis or sore throat. CARDIOVASCULAR: Patient denies chest pains, palpitations, orthopnea and paroxysmal nocturnal dyspnea. RESPIRATORY: shortness of breath GI: No nausea, vomiting, diarrhea, constipation, abdominal pain, hematochezia or melena. : No urinary hesitancy or dribbling. No nocturia or urinary frequency. No abnormal urethral discharge. MUSCULOSKELETAL: left foot pain NEUROLOGIC: No chronic headaches, no seizures. Patient denies numbness, tingling or weakness. PSYCHIATRIC: Patient denies problems with mood disturbance. No problems with anxiety. ENDOCRINE: No excessive urination or excessive thirst. DERMATOLOGIC: Patient denies any rashes or skin changes. Physical Exam Physical Exam: Gen: A&O 3 NAD HEENT: NCAT, EOMI, not icteric. External ears normal. No rhinorrhea. Moist mucous membranes. Neck: Supple, full range of motion, no observable masses, No meningeal sign. Lungs: No Respiratory distress. CV: trace rhonchi in bilateral lower lobes Abdomen: Soft, nondistended, No rebound tenderness. MSK: no dorsalis pedis pulse left foot, noted behind left ankle, cold to touch, tender to touch Skin: No rashes, petechiae, lesions. Normal color per patient. Neuro: Normal Gait, Grossly intact. Psych: Appropriate for situation. Results & Data Results & Data Vital Signs (Past 12 Hours) Vital Signs Temp Pulse Pulse Resp BP Pulse Ox O2 Del Method 07/25/24 15:25 36.7 C 92 H 16 119/67 96 Nasal Cannula 07/25/24 14:02 91 H 07/25/24 13:53 91 H 07/25/24 11:23 37.1 C 89 20 103/63 93 Room Air 07/25/24 09:46 36.7 C 07/25/24 08:00 Nasal Cannula 07/25/24 08:00 101 H 07/25/24 07:39 39.2 C H 103 H 19 138/58 L 93 Nasal Cannula O2 Flow Rate 07/25/24 15:25 1 07/25/24 14:02 07/25/24 13:53 07/25/24 11:23 07/25/24 09:46 07/25/24 08:00 1 07/25/24 08:00 07/25/24 07:39 1 Laboratory Results Laboratory Results WBC 6.85 K/ul (4.8-10.8) 07/25/24 05:33 RBC 4.08 M/uL (4.70-6.10) L 07/25/24 05:33 Hgb 12.6 g/dl (14.0-18.0) L 07/25/24 05:33 Hct 36.3 % (42.0-52.0) L 07/25/24 05:33 MCV 89.0 fL (80.0-100.0) 07/25/24 05:33 MCH 30.9 pg (25.0-34.0) 07/25/24 05:33 MCHC 34.7 g/dL (32.0-36.0) 07/25/24 05:33 RDW Std Deviation 45.7 fL (36.4-46.3) 07/25/24 05:33 RDW Coeff of Mariah 14.0 % (11.5-14.5) 07/25/24 05:33 Plt Count 123 K/uL (130-400) L 07/25/24 05:33 MPV 10.7 fL (9.4-12.4) 07/25/24 05:33 Immature Gran % (Auto) 0.1 % 07/25/24 05:33 Neut % (Auto) 79.1 % 07/25/24 05:33 Lymph % (Auto) 13.1 % 07/25/24 05:33 [place] % (Auto) 7.6 % 07/25/24 05:33 Eos % (Auto) 0.0 % 07/25/24 05:33 Baso % (Auto) 0.1 % 07/25/24 05:33 Neut # (Auto) 5.41 K/uL (1.40-6.50) 07/25/24 05:33 Lymph # (Auto) 0.90 K/uL (1.20-3.40) L 07/25/24 05:33 [place] # (Auto) 0.52 K/uL (0.11-0.59) 07/25/24 05:33 Eos # (Auto) 0.00 K/uL (0.00-0.50) 07/25/24 05:33 Baso # (Auto) 0.01 K/uL (0.00-0.20) 07/25/24 05:33 Immature Gran # (Auto) 0.01 K/uL (0.01-0.20) 07/25/24 05:33 ESR 36 mm/hr (0-20) H 07/24/24 13:14 PT 11.7 Seconds (9.0-12.0) 07/25/24 05:33 INR 1.1 (0.9-1.1) 07/25/24 05:33 APTT 33 Seconds (21-31) H 07/24/24 13:14 PTT Ratio 1.2 07/24/24 13:14 Heparin Anti-Xa, Unfract 0.57 IU/ml (0.3-0.7) 07/25/24 08:13 Sodium 136 mmol/L (136-145) 07/25/24 05:33 Potassium 3.8 mmol/L (3.5-5.1) 07/25/24 05:33 Chloride 106 mmol/L (98-107) 07/25/24 05:33 Carbon Dioxide 24 mmol/L (21-32) 07/25/24 05:33 Anion Gap 6 (3-11) 07/25/24 05:33 BUN 23 mg/dl (6-23) 07/25/24 05:33 Creatinine 1.09 mg/dl (0.6-1.4) 07/25/24 05:33 Est Cr Clr Drug Dosing 66.5 ml/min 07/25/24 05:33 eGFR 76.74 07/25/24 05:33 BUN/Creatinine Ratio 21.1 (10-20) H 07/25/24 05:33 Glucose 226 mg/dl (70-99(Fasting)) H 07/25/24 05:33 POC Glucose 100 mg/dl (70-99) H 07/25/24 11:57 Estimat Average Glucose 266 mg/dl 07/25/24 05:33 Hemoglobin A1c 10.9 % (4.5-5.6) H 07/25/24 05:33 Lactate 1.1 mmol/L (0.4-2.0) 07/25/24 05:33 Calcium 7.7 mg/dl (8.6-10.3) L 07/25/24 05:33 Magnesium 1.8 mg/dl (1.7-2.4) 07/25/24 05:33 Total Bilirubin 0.4 mg/dl (0.2-1.0) 07/25/24 05:33 Direct Bilirubin 0.1 mg/dl (0-0.2) 07/24/24 13:14 AST 28 U/L (13-39) 07/25/24 05:33 ALT 15 U/L (7-52) 07/25/24 05:33 Alkaline Phosphatase 76 U/L (34-104) 07/25/24 05:33 Troponin I High Sens 29.1 pg/ml (0-20) H 07/25/24 10:01 C-Reactive Protein 6.72 mg/dl (0-0.5) H 07/24/24 15:28 Total Protein 6.1 gm/dl (6.0-8.3) D 07/25/24 05:33 Albumin 3.1 gm/dl (3.4-5.0) L 07/25/24 05:33 Globulin 3.0 gm/dl (2.5-4.0) 07/25/24 05:33 Albumin/Globulin Ratio 1.0 (0.9-2) 07/25/24 05:33 Procalcitonin 0.94 ng/ml (0-0.5) H 07/24/24 13:14 Urine Color Yellow 07/24/24 13:15 Urine Appearance Clear (Clear) 07/24/24 13:15 Urine pH 6.0 (4.5-7.5) 07/24/24 13:15 Ur Specific [place] 1.023 (1.000-1.030) 07/24/24 13:15 Urine Protein 3+ (Negative) H 07/24/24 13:15 Urine Glucose (UA) 3+ (Negative) H 07/24/24 13:15 Urine Ketones 1+ (Negative) H 07/24/24 13:15 Urine Blood 2+ (Negative) H 07/24/24 13:15 Urine Nitrite Negative (Negative) 07/24/24 13:15 Urine Bilirubin Negative (Negative) 07/24/24 13:15 Urine Urobilinogen Negative (Negative) 07/24/24 13:15 Ur Leukocyte Esterase Negative (Negative) 07/24/24 13:15 Urine WBC (Auto) 0-5 /hpf (0-5) 07/24/24 13:15 Urine RBC (Auto) 0-2 /hpf (0-2) 07/24/24 13:15 U Hyaline Cast (Auto) 0-2 /lpf (0-2) 07/24/24 13:15 U Epithel Cells (Auto) 0-2 /hpf (0-2) 07/24/24 13:15 Urine Bacteria (Auto) None Seen (None Seen) 07/24/24 13:15 Nasal Screen MRSA (PCR) Negative (Negative) 07/24/24 22:50 Adenovirus (PCR) Not Detected (NotDetected) 07/24/24 13:15 B. pertussis DNA (PCR) Not Detected (NotDetected) 07/24/24 13:15 B.parapertussis DNA PCR Not Detected (NotDetected) 07/24/24 13:15 C. pneumoniae DNA (PCR) Not Detected (NotDetected) 07/24/24 13:15 Coronavirus OC43 (PCR) Not Detected (NotDetected) 07/24/24 13:15 Coronavirus HKU1 (PCR) Not Detected (NotDetected) 07/24/24 13:15 Coronavirus 229E (PCR) Not Detected (NotDetected) 07/24/24 13:15 SARS-CoV-2 (PCR) Not Detected (NotDetected) 07/24/24 13:15 Coronavirus NL63 (PCR) Not Detected (NotDetected) 07/24/24 13:15 Human Metapneumovir PCR Not Detected (NotDetected) 07/24/24 13:15 Influenza A (H3) PCR DETECTED (NotDetected) A 07/24/24 13:15 Influenza Type B (PCR) Not Detected (NotDetected) 07/24/24 13:15 M. pneumoniae (PCR) Not Detected (NotDetected) 07/24/24 13:15 Parainfluenza 1 (PCR) Not Detected (NotDetected) 07/24/24 13:15 Parainfluenza 2 (PCR) Not Detected (NotDetected) 07/24/24 13:15 Parainfluenza 3 (PCR) Not Detected (NotDetected) 07/24/24 13:15 Parainfluenza 4 (PCR) Not Detected (NotDetected) 07/24/24 13:15 RSV (PCR) Not Detected (NotDetected) 07/24/24 13:15 Entero/Rhino (PCR) Not Detected (NotDetected) 07/24/24 13:15 Impressions Chest X-Ray 07/24/24 12:51 XR chest 1V portable HISTORY: 64 years-old Male Sepsis COMPARISON: 05/07/2024 TECHNIQUE: AP view the chest FINDINGS: Cardiac silhouette is enlarged. Median sternotomy. No pneumothorax. Patchy bibasilar airspace opacities with chronic interstitial coarsening. Bones appear grossly intact. IMPRESSION: 1. Cardiomegaly without pulmonary edema. 2. Patchy bibasilar opacities are likely infectious or inflammatory. ACT 112: Negative or not required by law. The above report was generated using voice recognition software. It may contain grammatical, syntax or spelling errors. Electronically signed by: Reece Catalan M.D. 07/24/2024 1:[address] 07/24/24 12:58 CT foot LT wo con HISTORY: 64 years-old Male poss osteo chronic pain of the left foot. Clinical concern for osteomyelitis COMPARISON: Ankle radiographs July 09, 2024 TECHNIQUE: Multiple axial CT images of the left foot were obtained without IV contrast. A dose lowering technique was used consistent with the principals of ALARA. FINDINGS: Benign-appearing calcaneal bone island measuring up to 1.3 cm. Small calcaneal enthesophyte. Mild osteoarthritis of the foot and ankle. No acute fracture, dislocation or osseous erosion. Midfoot alignment is anatomic. Subcutaneous edema of the heel pad. Soft tissue thickening of the mid to distal Achilles tendon suggestive of probable tendinosis. No fluid collections or suspicious mass lesions of the soft tissues. Arterial calcifications. Tendons and ligaments are not well evaluated by CT technique. Probable peroneal tendinosis. IMPRESSION: 1. Mild subcutaneous edema of the foot and ankle. No fluid collections. 2. No acute osseous abnormality, notably no CT evidence of acute osteomyelitis. ACT 112: Negative or not required by law. The above report was generated using voice recognition software. It may contain grammatical, syntax or spelling errors. Electronically signed by: Reece Catalan M.D. 07/24/2024 2:45 PM Ankle MRI 07/24/24 16:38 Exam(s): MRI LEFT ANKLE Without Contrast EXAM: MR Left Lower Extremity Without Intravenous Contrast, Ankle CLINICAL HISTORY: Reason for exam: l heel wound. TECHNIQUE: Multiplanar magnetic resonance images of the left ankle without intravenous contrast. COMPARISON: X-rays dated 07/09/2024. FINDINGS: There is some mild soft tissue edema and swelling. No discrete fluid collection is noted. The visualized tendinous and muscular structures are unremarkable. Bony structures are intact. No evidence of acute fracture or dislocation. No gross bony destruction is seen. There is some slight bone marrow edema noted in the inferior posterior aspect of the calcaneus. IMPRESSION: There is some mild soft tissue edema and swelling. There is some slight bone marrow edema noted in the inferior posterior aspect of the calcaneus. It is of uncertain etiology. It may represent some mild bone bruising.. It is not typical for acute osteomyelitis. Electronically signed by: Tejas Reese MD 07/25/24 00:28 AM Duplex Scan Lower Extremity Artery 07/25/24 11:47 US arterial duplex LE LT HISTORY: 64 years-old Male concern for cold left foot COMPARISON: None TECHNIQUE: Lower extremity arterial Doppler with segmental pressures FINDINGS: Left-sided REJI of 0.34, right-sided REJI of 0.68 Extensive atherosclerosis. No arterial occlusion identified. Monophasic waveforms noted throughout with diminished waveforms. Spectral broadening noted within the lower leg arteries. Peak systolic velocities measure only up to 27 cm/s within the profunda femoris artery and measure up to 22 cm/s within the superficial femoral artery. IMPRESSION: 1. No acute arterial occlusion identified. 2. Diminished ABIs, left greater than right. 3. Extensive atherosclerosis with monophasic waveforms demonstrating diminished flow. ACT 112: Negative or not required by law. The above report was generated using voice recognition software. It may contain grammatical, syntax or spelling errors. Electronically signed by: Reece Catalan M.D. 07/25/2024 3:35 PM (4) Pneumonia Laterality: bilateral Lung location: lower lobe of lung Pneumonia type: due to unspecified organism Qualified Code(s): J18.9 - Pneumonia, unspecified organism (6) GERD (gastroesophageal reflux disease) Esophagitis presence: with esophagitis Esophagitis bleeding: without hemorrhage Qualified Code(s): K21.00 - Gastro-esophageal reflux disease with esophagitis, without bleeding (7) Barretts esophagus Montalvo's esophagus type: with low grade dysplasia Qualified Code(s): K22.710 - Montalvo's esophagus with low grade dysplasia (8) Diabetes mellitus, type 2 Diabetes mellitus usp insulin use: with usp use Diabetes mellitus complication status: with circulatory complication Diabetes mellitus complication detail: with peripheral angiopathy without gangrene Qualified Code(s): E11.51 - Type 2 diabetes mellitus with diabetic peripheral angiopathy without gangrene; 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
[2024-07-25] MEDS: OPTIRAY 320 125ml IV ONE (16:47)
[2024-07-25] MEDS: WARFARIN SOD 2.5 MG TAB PO SCH (17:32)
[2024-07-25] MEDS ORDERED: ARTIFICIAL TEARS OPB PRN (18:07)
--- NOTE | 2024-07-25 18:14 | CT Scan Report ---
EXAM: CT Angiography Abdomen and Pelvis With Runoff to the Lower Extremities With Intravenous Contrast INDICATION: Vascular occlusions. TECHNIQUE: Axial computed tomographic angiography images of the abdomen, pelvis and lower extremities with intravenous contrast. Sagittal and coronal reformatted images were created and reviewed. This CT exam was performed using one or more of the following dose reduction techniques: automated exposure control, adjustment of the mA and/or kV according to patient size, and/or use of iterative reconstruction technique. MIP reconstructed images were created and reviewed. CONTRAST: 119ml of Optiray 320 was administered intravenously. COMPARISON: No relevant prior studies available. FINDINGS: VASCULATURE: Aorta: There is diffuse mild mixed plaque throughout the aorta without aneurysm or dissection. Celiac trunk and mesenteric arteries: No acute change noted. No occlusion or significant stenosis. Renal arteries: There is a small focal calcific plaque at the origin of the right renal artery. No stenosis or occlusion. Right iliac arteries: There is diffuse atherosclerotic calcification in the right iliac vessels with focal up to 75% stenosis of the right internal iliac artery series 3 image 364. Right femoral/popliteal arteries: There is focal soft plaque causing 40% stenosis of the proximal right superficial femoral artery. The right popliteal artery is occluded at the knee. Mixed plaque without significant stenosis right common femoral artery most notable distally. Popliteal artery is patent with mild distal calcification. Right calf/foot arteries: There is flow and a small right tibioperoneal trunk with distal calcific plaque. There is no flow in the peroneal and anterior tibial arteries at the level of the distal tibial shaft. No flow noted dorsal right foot. The posterior tibial artery is patent. No occlusion or significant stenosis. Left iliac arteries: The left common iliac artery is occluded and reconstitutes just proximal to the bifurcation. There is diffuse mixed plaque throughout the left external iliac artery without focal stenosis, occlusion or dissection. Left femoral/popliteal arteries: There is mixed plaque in the left common femoral artery with up to 50% stenosis. Left calf/foot arteries: No flow identified in the left anterior tibial artery at the level of the mid tibia. Mild flow noted in the peroneal artery at the level of the ankle. No flow seen dorsum of the foot. The posterior tibial artery is patent. No occlusion or significant stenosis. Lung bases: There is extensive bronchiectasis, coarse infiltrates and groundglass opacities in the visualized portion of each lung. Pleural space: There are trace layering bilateral pleural effusions. Heart: Cardiomegaly. Aortic valvular stent noted. ABDOMEN: Liver: No abnormality noted. No mass. Gallbladder and bile ducts: No abnormality noted. No calcified stones. No ductal dilation. Pancreas: No abnormality noted. No ductal dilation. No mass. Spleen: No abnormality noted. No splenomegaly. Adrenals: Bilateral adrenal thickening without measurable nodule. Kidneys and ureters: There is heterogeneous diminished enhancement of the lower right kidney and bilateral renal scarring right greater than left. There is mild bilateral foot edema. No stones. No hydronephrosis. Stomach and bowel: The colon is redundant. There is a large amount of stool in the descending and rectosigmoid colon. The colon otherwise contains prominent layering fluid. No small bowel obstruction. No thickening. PELVIS: Appendix: No findings to suggest acute appendicitis. Bladder: No abnormality noted. No mass. Reproductive: No significant abnormality noted. ABDOMEN, PELVIS and LOWER EXTREMITIES: Intraperitoneal space: No abnormality noted. No significant fluid collection. No free air. Bones/joints: Metallic hardware right foot. No acute osseous abnormality. Small bilateral knee joint effusions. Soft tissues: No abnormality noted. Lymph nodes: Bilateral hilar adenopathy present with nodes measuring up to 1.5 cm short axis dimension. IMPRESSION: 1. 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 2. There is occlusion of the right popliteal artery at the knee. 3. No flow noted in the right peroneal and anterior tibial arteries at the level of the distal tibia without flow noted dorsum of the right foot. 4. No flow identified in the left anterior tibial artery at the level of the mid tibia. No flow seen dorsum of the left foot. 5. Large amounts of formed stool in the rectosigmoid colon with mild colonic ileus. No obstruction. 6. Heterogeneous enhancement of the inferior right kidney concerning for pyelonephritis. There is scarring of the right kidney. No hydronephrosis. 7. Extensive bronchiectasis and groundglass and parenchymal infiltrates in both lungs likely reflecting acute infection superimposed on chronic small airway disease. ACT 112: Negative or not required by law. Electronically signed by Jory Chandra 07-25-2024 6:14 PM
--- NOTE | 2024-07-25 18:27 | Electrocardiogram Report ---
Test Reason : Blood Pressure : */* mmHG Vent. Rate : 96 BPM Atrial Rate : 96 BPM P-R Int : 148 ms QRS Dur : 108 ms QT Int : 370 ms P-R-T Axes : 71 44 47 degrees QTcB Int : 467 ms Normal sinus rhythm Incomplete right bundle branch block Minimal voltage criteria for LVH, may be normal variant ( [place] product ) Possible Anterior infarct (cited on or before 24-Jul-2024) Abnormal ECG When compared with ECG of 24-Jul-2024 13:06, No significant change was found Confirmed by Chris Aranda ([id number]) on 07/25/2024 6:27:39 PM Referred By: REFERRED SELF Confirmed By: Chris Aranda
[2024-07-25] MEDS ORDERED: PREGABALIN 50 MG CAP PO SCH (21:00)
[2024-07-25] MEDS: OSELTAMIVIR PHOSPHATE 75 MG CAP PO SCH (22:05)
[2024-07-26 04:48] LABS: Hematocrit (blood only) 35.6 % (42.0-52.0); Hemoglobin 12.3 g/dl (14.0-18.0); Mean Corpuscular Hgb Conc 34.6 g/dL (32.0-36.0); Mean Corpuscular Volume 89.7 fL (80.0-100.0); Mean Platelet Volume 11.2 fL (9.4-12.4); Platelet Count 116 K/uL (130-400); RDW Standard Deviation 45.4 fL (36.4-46.3); Red Blood Count 3.97 M/uL (4.70-6.10)
[2024-07-26 04:57] LABS: BUN Creatinine Ratio 18.9 (10-20); Calcium 7.8 mg/dl (8.6-10.3); Creatinine Clr Calc Pharmacy 59.4 ml/min; Potassium 3.9 mmol/L (3.5-5.1)
[2024-07-26 05:08] LABS: ANTI-Xa, UFH(UnfractionatedHep 0.55 IU/ml (0.3-0.7)
[2024-07-26 05:12] LABS: Prothrombin Time 10.6 Seconds (9.0-12.0)
[2024-07-26 07:28] LABS: Albumin Level 3.1 gm/dl (3.4-5.0); Bilirubin Direct 0.1 mg/dl (0-0.2); Bilirubin,Total 0.3 mg/dl (0.2-1.0); Total Protein 5.7 gm/dl (6.0-8.3)
[2024-07-26 07:34] LABS: Troponin I High Sensitivity 31.3 pg/ml (0-20)
--- NOTE | 2024-07-26 08:32 | Communication Note ---
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 Will schedule hlm for an attempt at endovascular intervention for sunday. Will place pre op orders.
--- NOTE | 2024-07-26 09:57 | Hospitalist Progress Note ---
Date of Service July 26, 2024 Assessment & Plan (1) Ischemic rest pain of lower extremity: Plan: -left foot cold to touch, unfindable dorsalis pedis pulse, quite tender -improved overall from yesterday Plan: -vascular surgery recs appreciated -podiatry recs appreciated -continue heparin drip, tentative plan for OR slot next week -control glucose levels (2) Acute hypoxic respiratory failure: Plan: -in setting of influenza A and concern for overlying CAP Plan: -doxy/zosyn for now, deescalate based on sensitivities -start flutter valve, incentive spirometry (3) Influenza A: Plan: -noted on viral screen -see above (4) Pneumonia: Plan: -given hypoxia and imaging, concern for overlying CAP -negative MRSA swab -overall improving Plan: -continue doxy/zosyn for now -f/u cultures (5) Hypocalcemia: Plan: -noted on arrival Plan: -replenish calcium prn -check LFTs today (6) GERD (gastroesophageal reflux disease): Plan: -continue protonix (7) Barretts esophagus: Plan: -noted, continue protonix (8) Diabetes mellitus, type 2: Plan: -likely cause of severe PAD Plan: -insulin per protocol (9) H/O mechanical aortic valve replacement: Plan: -noted -hold warfarin in setting of upcoming procedure Plan Feeding/fluids: regular Analgesia: tylenol/oxy Sedation: na Thromboprophylaxis: heparin drip Head up position: na Ulcer prophylaxis: protonix Glycemic control: insulin Spontaneous breathing trial: NC Bowel care: miralax prn Indwelling catheter removal: Deescalation of antibiotics: pending culture data I spent a total of 45 minutes coordinating, documenting, and providing care for this patient excluding time spent in the performance of separately billed services. Admission and Anticipated Discharge Date Admission Date: July 24, 2024 Subjective Patient seen and examined at bedside. Patient left foot is feels a little more heavy today, but also feels a little warmer. He feels better overall. Discussed imaging results and tentative plan. Review of Systems Review of Systems: CONSTITUTIONAL: Patient denies fevers, chills, sweats and weight changes. EYES: Patient denies any visual symptoms. EARS, NOSE, AND THROAT: No difficulties with hearing. No symptoms of rhinitis or sore throat. CARDIOVASCULAR: Patient denies chest pains, palpitations, orthopnea and paroxysmal nocturnal dyspnea. RESPIRATORY: shortness of breath GI: No nausea, vomiting, diarrhea, constipation, abdominal pain, hematochezia or melena. : No urinary hesitancy or dribbling. No nocturia or urinary frequency. No abnormal urethral discharge. MUSCULOSKELETAL: left foot pain, different but same level as yesterday NEUROLOGIC: No chronic headaches, no seizures. Patient denies numbness, tingling or weakness. PSYCHIATRIC: Patient denies problems with mood disturbance. No problems with anxiety. ENDOCRINE: No excessive urination or excessive thirst. DERMATOLOGIC: Patient denies any rashes or skin changes. Physical Exam Physical Exam: Gen: A&O 3 NAD HEENT: NCAT, EOMI, not icteric. External ears normal. No rhinorrhea. Moist mucous membranes. Neck: Supple, full range of motion, no observable masses, No meningeal sign. Lungs: No Respiratory distress. CV: trace rhonchi in bilateral lower lobes Abdomen: Soft, nondistended, No rebound tenderness. MSK: no dorsalis pedis pulse left foot, noted behind left ankle, cold to touch, tender to touch, similar to prior Skin: No rashes, petechiae, lesions. Normal color per patient. Neuro: Normal Gait, Grossly intact. Psych: Appropriate for situation. Results & Data Results & Data Vital Signs (Past 12 Hours) Vital Signs Temp Pulse Pulse Resp BP Pulse Ox O2 Del Method 07/26/24 07:13 36.9 C 97 H 16 146/74 H 90 Room Air 07/26/24 02:48 36.6 C 71 19 124/70 95 Nasal Cannula 07/26/24 01:02 105 H 07/26/24 00:06 Room Air 07/25/24 22:40 36.8 C 70 17 120/63 98 Nasal Cannula O2 Flow Rate 07/26/24 07:13 07/26/24 02:48 1.0 07/26/24 01:02 07/26/24 00:06 07/25/24 22:40 1.0 Laboratory Results Laboratory Results WBC 4.40 K/ul (4.8-10.8) L 07/26/24 04:18 RBC 3.97 M/uL (4.70-6.10) L 07/26/24 04:18 Hgb 12.3 g/dl (14.0-18.0) L 07/26/24 04:18 Hct 35.6 % (42.0-52.0) L 07/26/24 04:18 MCV 89.7 fL (80.0-100.0) 07/26/24 04:18 MCH 31.0 pg (25.0-34.0) 07/26/24 04:18 MCHC 34.6 g/dL (32.0-36.0) 07/26/24 04:18 RDW Std Deviation 45.4 fL (36.4-46.3) 07/26/24 04:18 RDW Coeff of Mariah 14.0 % (11.5-14.5) 07/26/24 04:18 Plt Count 116 K/uL (130-400) L 07/26/24 04:18 MPV 11.2 fL (9.4-12.4) 07/26/24 04:18 Immature Gran % (Auto) 0.1 % 07/25/24 05:33 Neut % (Auto) 79.1 % 07/25/24 05:33 Lymph % (Auto) 13.1 % 07/25/24 05:33 Dickey % (Auto) 7.6 % 07/25/24 05:33 Eos % (Auto) 0.0 % 07/25/24 05:33 Baso % (Auto) 0.1 % 07/25/24 05:33 Neut # (Auto) 5.41 K/uL (1.40-6.50) 07/25/24 05:33 Lymph # (Auto) 0.90 K/uL (1.20-3.40) L 07/25/24 05:33 Dickey # (Auto) 0.52 K/uL (0.11-0.59) 07/25/24 05:33 Eos # (Auto) 0.00 K/uL (0.00-0.50) 07/25/24 05:33 Baso # (Auto) 0.01 K/uL (0.00-0.20) 07/25/24 05:33 Immature Gran # (Auto) 0.01 K/uL (0.01-0.20) 07/25/24 05:33 ESR 36 mm/hr (0-20) H 07/24/24 13:14 PT 10.6 Seconds (9.0-12.0) 07/26/24 04:18 INR 1.0 (0.9-1.1) 07/26/24 04:18 APTT 33 Seconds (21-31) H 07/24/24 13:14 PTT Ratio 1.2 07/24/24 13:14 Heparin Anti-Xa, Unfract 0.55 IU/ml (0.3-0.7) 07/26/24 04:18 Sodium 135 mmol/L (136-145) L 07/26/24 04:18 Potassium 3.9 mmol/L (3.5-5.1) 07/26/24 04:18 Chloride 106 mmol/L (98-107) 07/26/24 04:18 Carbon Dioxide 24 mmol/L (21-32) 07/26/24 04:18 Anion Gap 5 (3-11) 07/26/24 04:18 BUN 23 mg/dl (6-23) 07/26/24 04:18 Creatinine 1.22 mg/dl (0.6-1.4) 07/26/24 04:18 Est Cr Clr Drug Dosing 59.4 ml/min 07/26/24 04:18 eGFR 67.03 07/26/24 04:18 BUN/Creatinine Ratio 18.9 (10-20) 07/26/24 04:18 Glucose 124 mg/dl (70-99(Fasting)) H 07/26/24 04:18 POC Glucose 144 mg/dl (70-99) H 07/26/24 07:18 Estimat Average Glucose 266 mg/dl 07/25/24 05:33 Hemoglobin A1c 10.9 % (4.5-5.6) H 07/25/24 05:33 Lactate 1.1 mmol/L (0.4-2.0) 07/25/24 05:33 Calcium 7.8 mg/dl (8.6-10.3) L 07/26/24 04:18 Magnesium 1.8 mg/dl (1.7-2.4) 07/25/24 05:33 Total Bilirubin 0.3 mg/dl (0.2-1.0) 07/26/24 04:18 Direct Bilirubin 0.1 mg/dl (0-0.2) 07/26/24 04:18 AST 36 U/L (13-39) 07/26/24 04:18 ALT 16 U/L (7-52) 07/26/24 04:18 Alkaline Phosphatase 70 U/L (34-104) 07/26/24 04:18 Troponin I High Sens 28.8 pg/ml (0-20) H 07/26/24 07:44 C-Reactive Protein 6.72 mg/dl (0-0.5) H 07/24/24 15:28 Total Protein 5.7 gm/dl (6.0-8.3) L 07/26/24 04:18 Albumin 3.1 gm/dl (3.4-5.0) L 07/26/24 04:18 Globulin 3.0 gm/dl (2.5-4.0) 07/25/24 05:33 Albumin/Globulin Ratio 1.0 (0.9-2) 07/25/24 05:33 Procalcitonin 0.94 ng/ml (0-0.5) H 07/24/24 13:14 Urine Color Yellow 07/24/24 13:15 Urine Appearance Clear (Clear) 07/24/24 13:15 Urine pH 6.0 (4.5-7.5) 07/24/24 13:15 Ur Specific Sheldon 1.023 (1.000-1.030) 07/24/24 13:15 Urine Protein 3+ (Negative) H 07/24/24 13:15 Urine Glucose (UA) 3+ (Negative) H 07/24/24 13:15 Urine Ketones 1+ (Negative) H 07/24/24 13:15 Urine Blood 2+ (Negative) H 07/24/24 13:15 Urine Nitrite Negative (Negative) 07/24/24 13:15 Urine Bilirubin Negative (Negative) 07/24/24 13:15 Urine Urobilinogen Negative (Negative) 07/24/24 13:15 Ur Leukocyte Esterase Negative (Negative) 07/24/24 13:15 Urine WBC (Auto) 0-5 /hpf (0-5) 07/24/24 13:15 Urine RBC (Auto) 0-2 /hpf (0-2) 07/24/24 13:15 U Hyaline Cast (Auto) 0-2 /lpf (0-2) 07/24/24 13:15 U Epithel Cells (Auto) 0-2 /hpf (0-2) 07/24/24 13:15 Urine Bacteria (Auto) None Seen (None Seen) 07/24/24 13:15 Nasal Screen MRSA (PCR) Negative (Negative) 07/24/24 22:50 Adenovirus (PCR) Not Detected (NotDetected) 07/24/24 13:15 B. pertussis DNA (PCR) Not Detected (NotDetected) 07/24/24 13:15 B.parapertussis DNA PCR Not Detected (NotDetected) 07/24/24 13:15 C. pneumoniae DNA (PCR) Not Detected (NotDetected) 07/24/24 13:15 Coronavirus OC43 (PCR) Not Detected (NotDetected) 07/24/24 13:15 Coronavirus HKU1 (PCR) Not Detected (NotDetected) 07/24/24 13:15 Coronavirus 229E (PCR) Not Detected (NotDetected) 07/24/24 13:15 SARS-CoV-2 (PCR) Not Detected (NotDetected) 07/24/24 13:15 Coronavirus NL63 (PCR) Not Detected (NotDetected) 07/24/24 13:15 Human Metapneumovir PCR Not Detected (NotDetected) 07/24/24 13:15 Influenza A (H3) PCR DETECTED (NotDetected) A 07/24/24 13:15 Influenza Type B (PCR) Not Detected (NotDetected) 07/24/24 13:15 M. pneumoniae (PCR) Not Detected (NotDetected) 07/24/24 13:15 Parainfluenza 1 (PCR) Not Detected (NotDetected) 07/24/24 13:15 Parainfluenza 2 (PCR) Not Detected (NotDetected) 07/24/24 13:15 Parainfluenza 3 (PCR) Not Detected (NotDetected) 07/24/24 13:15 Parainfluenza 4 (PCR) Not Detected (NotDetected) 07/24/24 13:15 RSV (PCR) Not Detected (NotDetected) 07/24/24 13:15 Entero/Rhino (PCR) Not Detected (NotDetected) 07/24/24 13:15 Impressions Chest X-Ray 07/24/24 12:51 XR chest 1V portable HISTORY: 64 years-old Male Sepsis COMPARISON: 05/07/2024 TECHNIQUE: AP view the chest FINDINGS: Cardiac silhouette is enlarged. Median sternotomy. No pneumothorax. Patchy biba silar airspace opacities with chronic interstitial coarsening. Bones appear grossly intact. IMPRESSION: 1. Cardiomegaly without pulmonary edema. 2. Patchy bibasilar opacities are likely infectious or inflammatory. ACT 112: Negative or not required by law. The above report was generated using voice recognition software. It may contain grammatical, syntax or spelling errors. Electronically signed by: Reece Catalan M.D. 07/24/2024 1:[address] 07/24/24 12:58 CT foot LT wo con HISTORY: 64 years-old Male poss osteo chronic pain of the left foot. Clinical concern for osteomyelitis COMPARISON: Ankle radiographs July 09, 2024 TECHNIQUE: Multiple axial CT images of the left foot were obtained without IV contrast. A dose lowering technique was used consistent with the principals of ALARA. FINDINGS: Benign-appearing calcaneal bone island measuring up to 1.3 cm. Small calcaneal enthesophyte. Mild osteoarthritis of the foot and ankle. No acute fracture, dislocation or osseous erosion. Midfoot alignment is anatomic. Subcutaneous edema of the heel pad. Soft tissue thickening of the mid to distal Achilles tendon suggestive of probable tendinosis. No fluid collections or suspicious mass lesions of the soft tissues. Arterial calcifications. Tendons and ligaments are not well evaluated by CT technique. Probable peroneal tendinosis. IMPRESSION: 1. Mild subcutaneous edema of the foot and ankle. No fluid collections. 2. No acute osseous abnormality, notably no CT evidence of acute osteomyelitis. ACT 112: Negative or not required by law. The above report was generated using voice recognition software. It may contain grammatical, syntax or spelling errors. Electronically signed by: Reece Catalan M.D. 07/24/2024 2:45 PM Ankle MRI 07/24/24 16:38 Exam(s): MRI LEFT ANKLE Without Contrast EXAM: MR Left Lower Extremity Without Intravenous Contrast, Ankle CLINICAL HISTORY: Reason for exam: l heel wound. TECHNIQUE: Multiplanar magnetic resonance images of the left ankle without intravenous contrast. COMPARISON: X-rays dated 07/09/2024. FINDINGS: There is some mild soft tissue edema and swelling. No discrete fluid collection is noted. The visualized tendinous and muscular structures are unremarkable. Bony structures are intact. No evidence of acute fracture or dislocation. No gross bony destruction is seen. There is some slight bone marrow edema noted in the inferior posterior aspect of the calcaneus. IMPRESSION: There is some mild soft tissue edema and swelling. There is some slight bone marrow edema noted in the inferior posterior aspect of the calcaneus. It is of uncertain etiology. It may represent some mild bone bruising.. It is not typical for acute osteomyelitis. Electronically signed by: Tejas Reese MD 07/25/24 00:28 AM Duplex Scan Lower Extremity Artery 07/25/24 11:47 US arterial duplex LE LT HISTORY: 64 years-old Male concern for cold left foot COMPARISON: None TECHNIQUE: Lower extremity arterial Doppler with segmental pressures FINDINGS: Left-sided REJI of 0.34, right-sided REJI of 0.68 Extensive atherosclerosis. No arterial occlusion identified. Monophasic waveforms noted throughout with diminished waveforms. Spectral broadening noted within the lower leg arteries. Peak systolic velocities measure only up to 27 cm/s within the profunda femoris artery and measure up to 22 cm/s within the superficial femoral artery. IMPRESSION: 1. No acute arterial occlusion identified. 2. Diminished ABIs, left greater than right. 3. Extensive atherosclerosis with monophasic waveforms demonstrating diminished flow. ACT 112: Negative or not required by law. The above report was generated using voice recognition software. It may contain grammatical, syntax or spelling errors. Electronically signed by: Reece Catalan M.D. 07/25/2024 3:35 PM Aorta w/Runoff CTA 07/25/24 15:25 EXAM: CT Angiography Abdomen and Pelvis With Runoff to the Lower Extremities With Intravenous Contrast INDICATION: Vascular occlusions. TECHNIQUE: Axial computed tomographic angiography images of the abdomen, pelvis and lower extremities with intravenous contrast. Sagittal and coronal reformatted images were created and reviewed. This CT exam was performed using one or more of the following dose reduction techniques: automated exposure control, adjustment of the mA and/or kV according to patient size, and/or use of iterative reconstruction technique. MIP reconstructed images were created and reviewed. CONTRAST: 119ml of Optiray 320 was administered intravenously. COMPARISON: No relevant prior studies available. FINDINGS: VASCULATURE: Aorta: There is diffuse mild mixed plaque throughout the aorta without aneurysm or dissection. Celiac trunk and mesenteric arteries: No acute change noted. No occlusion or significant stenosis. Renal arteries: There is a small focal calcific plaque at the origin of the right renal artery. No stenosis or occlusion. Right iliac arteries: There is diffuse atherosclerotic calcification in the right iliac vessels with focal up to 75% stenosis of the right internal iliac artery series 3 image 364. Right femoral/popliteal arteries: There is focal soft plaque causing 40% stenosis of the proximal right superficial femoral artery. The right popliteal artery is occluded at the knee. Mixed plaque without significant stenosis right common femoral artery most notable distally. Popliteal artery is patent with mild distal calcification. Right calf/foot arteries: There is flow and a small right tibioperoneal trunk with distal calcific plaque. There is no flow in the peroneal and anterior tibial arteries at the level of the distal tibial shaft. No flow noted dorsal right foot. The posterior tibial artery is patent. No occlusion or significant stenosis. Left iliac arteries: The left common iliac artery is occluded and reconstitutes just proximal to the bifurcation. There is diffuse mixed plaque throughout the left external iliac artery without focal stenosis, occlusion or dissection. Left femoral/popliteal arteries: There is mixed plaque in the left common femoral artery with up to 50% stenosis. Left calf/foot arteries: No flow identified in the left anterior tibial artery at the level of the mid tibia. Mild flow noted in the peroneal artery at the level of the ankle. No flow seen dorsum of the foot. The posterior tibial artery is patent. No occlusion or significant stenosis. Lung bases: There is extensive bronchiectasis, coarse infiltrates and groundglass opacities in the visualized portion of each lung. Pleural space: There are trace layering bilateral pleural effusions. Heart: Cardiomegaly. Aortic valvular stent noted. ABDOMEN: Liver: No abnormality noted. No mass. Gallbladder and bile ducts: No abnormality noted. No calcified stones. No ductal dilation. Pancreas: No abnormality noted. No ductal dilation. No mass. Spleen: No abnormality noted. No splenomegaly. Adrenals: Bilateral adrenal thickening without measurable nodule. Kidneys and ureters: There is heterogeneous diminished enhancement of the lower right kidney and bilateral renal scarring right greater than left. There is mild bilateral foot edema. No stones. No hydronephrosis. Stomach and bowel: The colon is redundant. There is a large amount of stool in the descending and rectosigmoid colon. The colon otherwise contains prominent layering fluid. No small bowel obstruction. No thickening. PELVIS: Appendix: No findings to suggest acute appendicitis. Bladder: No abnormality noted. No mass. Reproductive: No significant abnormality noted. ABDOMEN, PELVIS and LOWER EXTREMITIES: Intraperitoneal space: No abnormality noted. No significant fluid collection. No free air. Bones/joints: Metallic hardware right foot. No acute osseous abnormality. Small bilateral knee joint effusions. Soft tissues: No abnormality noted. Lymph nodes: Bilateral hilar adenopathy present with nodes measuring up to 1.5 cm short axis dimension. IMPRESSION: 1. 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 2. There is occlusion of the right popliteal artery at the knee. 3. No flow noted in the right peroneal and anterior tibial arteries at the level of the distal tibia without flow noted dorsum of the right foot. 4. No flow identified in the left anterior tibial artery at the level of the mid tibia. No flow seen dorsum of the left foot. 5. Large amounts of formed stool in the rectosigmoid colon with mild colonic ileus. No obstruction. 6. Heterogeneous enhancement of the inferior right kidney concerning for pyelonephritis. There is scarring of the right kidney. No hydronephrosis. 7. Extensive bronchiectasis and groundglass and parenchymal infiltrates in both lungs likely reflecting acute infection superimposed on chronic small airway disease. ACT 112: Negative or not required by law. Electronically signed by Jory Chandra 07-25-2024 6:14 PM (4) Pneumonia Laterality: bilateral Lung location: lower lobe of lung Pneumonia type: due to unspecified organism Qualified Code(s): J18.9 - Pneumonia, unspecified organ ism (6) GERD (gastroesophageal reflux disease) Esophagitis presence: with esophagitis Esophagitis bleeding: without hemorrhage Qualified Code(s): K21.00 - Gastro-esophageal reflux disease with esophagitis, without bleeding (7) Barretts esophagus Montalvo's esophagus type: with low grade dysplasia Qualified Code(s): K22.710 - Montalvo's esophagus with low grade dysplasia (8) Diabetes mellitus, type 2 Diabetes mellitus assisted insulin use: with assisted use Diabetes mellitus complication status: with circulatory complication Diabetes mellitus complication detail: with peripheral angiopathy without gangrene Qualified Code(s): E11.51 - Type 2 diabetes mellitus with diabetic peripheral angiopathy without gangrene; Z79.4 - [facility] (current) use of insulin
[2024-07-27] MEDS: LANTUS PER UNIT CHARGE SC SCH (08:15)
[2024-07-27 08:22] LABS: Hematocrit (blood only) 38.4 % (42.0-52.0); Mean Corpuscular Hemoglobin 30.4 pg (25.0-34.0); Mean Corpuscular Hgb Conc 33.9 g/dL (32.0-36.0); Mean Corpuscular Volume 89.7 fL (80.0-100.0); Mean Platelet Volume 10.9 fL (9.4-12.4); Platelet Count 114 K/uL (130-400); RDW Coefficient of Variation 14.1 % (11.5-14.5); RDW Standard Deviation 46.2 fL (36.4-46.3); Red Blood Count 4.28 M/uL (4.70-6.10); White Blood Count 3.25 K/ul (4.8-10.8)
[2024-07-27 08:32] LABS: BUN Creatinine Ratio 17.8 (10-20); Calcium 8.3 mg/dl (8.6-10.3); Creatinine Clr Calc Pharmacy 71.7 ml/min; Potassium 3.9 mmol/L (3.5-5.1)
[2024-07-27 08:43] LABS: ANTI-Xa, UFH(UnfractionatedHep 0.51 IU/ml (0.3-0.7)
[2024-07-27 08:46] LABS: INR 0.9 (0.9-1.1); Prothrombin Time 10.2 Seconds (9.0-12.0)
[2024-07-27] MEDS: LIDOCAINE 5% 1 PATCH TD SCH (09:50)
[2024-07-27 10:23] LABS: Partial Thromboplastin Ratio 2.3; Partial Thromboplastin Time 62 Seconds (21-31)
--- NOTE | 2024-07-27 10:30 | Hospitalist Progress Note ---
Date of Service July 27, 2024 Assessment & Plan (1) Ischemic rest pain of lower extremity: Plan: -left foot cold to touch, unfindable dorsalis pedis pulse, quite tender -seems to be improving Plan: -vascular surgery recs appreciated -podiatry recs appreciated -continue heparin drip, OR tomorrow -control glucose levels -npo after midnight -preop labs ordered, NSQUIP below -NSQUIP: Patient is moderate/high risk for a moderate risk procedure. (2) Acute hypoxic respiratory failure: Plan: -in setting of influenza A and concern for overlying CAP -resolved Plan: -doxy/zosyn x7 day coursee, deescalate based on sensitivities -continue IS and flutterr valve, incentive spirometry (3) Influenza A: Plan: -noted on viral screen -see above (4) Pneumonia: Plan: -given hypoxia and imaging, concern for overlying CAP -negative MRSA swab -overall improving Plan: -continue doxy/zosyn for now -f/u cultures (5) Hypocalcemia: Plan: -noted on arrival -normal when calculated with albumin level (6) GERD (gastroesophageal reflux disease): Plan: -continue protonix (7) Barretts esophagus: Plan: -noted, continue protonix (8) Diabetes mellitus, type 2: Plan: -likely cause of severe PAD Plan: -insulin per protocol (9) H/O mechanical aortic valve replacement: Plan: -noted -hold warfarin in setting of upcoming procedure Plan Feeding/fluids: regular (NPO after midnight) Analgesia: tylenol/oxy Sedation: na Thromboprophylaxis: heparin drip Head up position: na Ulcer prophylaxis: protonix Glycemic control: insulin Spontaneous breathing trial: NC Bowel care: miralax prn Indwelling catheter removal: Deescalation of antibiotics: pending culture data I spent a total of 45 minutes coordinating, documenting, and providing care for this patient excluding time spent in the performance of separately billed services. Admission and Anticipated Discharge Date Admission Date: July 24, 2024 Subjective Patient seen and examined at bedside. Patient is doing well today. Having some left hip pain, that he states is new. Otherwise breathing better and feeling okay. Feels left foot pain is improving and feels warmer. Review of Systems 2 Review of Systems: CONSTITUTIONAL: Patient denies fevers, chills, sweats and weight changes. EYES: Patient denies any visual symptoms. EARS, NOSE, AND THROAT: No difficulties with hearing. No symptoms of rhinitis or sore throat. CARDIOVASCULAR: Patient denies chest pains, palpitations, orthopnea and paroxysmal nocturnal dyspnea. RESPIRATORY: shortness of breath GI: No nausea, vomiting, diarrhea, constipation, abdominal pain, hematochezia or melena. : No urinary hesitancy or dribbling. No nocturia or urinary frequency. No abnormal urethral discharge. MUSCULOSKELETAL: left foot pain, improving, left hip pain, new NEUROLOGIC: No chronic headaches, no seizures. Patient denies numbness, tingling or weakness. PSYCHIATRIC: Patient denies problems with mood disturbance. No problems with anxiety. ENDOCRINE: No excessive urination or excessive thirst. DERMATOLOGIC: Patient denies any rashes or skin changes. Physical Exam 2 Physical Exam: Gen: A&O 3 NAD HEENT: NCAT, EOMI, not icteric. External ears normal. No rhinorrhea. Moist mucous membranes. Neck: Supple, full range of motion, no observable masses, No meningeal sign. Lungs: No Respiratory distress. CV: trace rhonchi in bilateral lower lobes Abdomen: Soft, nondistended, No rebound tenderness. MSK: no dorsalis pedis pulse left foot, noted behind left ankle, warmer today, left hip pain to palpation Skin: No rashes, petechiae, lesions. Normal color per patient. Neuro: Normal Gait, Grossly intact. Psych: Appropriate for situation. Results & Data Results & Data Vital Signs (Past 12 Hours) Vital Signs Temp Pulse Pulse Resp BP Pulse Ox O2 Del Method 07/27/24 09:00 Room Air 07/27/24 07:07 37.1 C 91 H 16 146/68 H 92 Room Air 07/27/24 06:00 90 07/27/24 02:49 37.0 C 72 18 115/64 98 Room Air 07/27/24 00:30 87 07/27/24 00:14 Room Air 07/26/24 22:49 36.8 C 72 19 126/88 98 Room Air Laboratory Results Laboratory Results WBC 3.25 K/ul (4.8-10.8) L 07/27/24 07:44 RBC 4.28 M/uL (4.70-6.10) L 07/27/24 07:44 Hgb 13.0 g/dl (14.0-18.0) L 07/27/24 07:44 Hct 38.4 % (42.0-52.0) L 07/27/24 07:44 MCV 89.7 fL (80.0-100.0) 07/27/24 07:44 MCH 30.4 pg (25.0-34.0) 07/27/24 07:44 MCHC 33.9 g/dL (32.0-36.0) 07/27/24 07:44 RDW Std Deviation 46.2 fL (36.4-46.3) 07/27/24 07:44 RDW Coeff of Mariah 14.1 % (11.5-14.5) 07/27/24 07:44 Plt Count 114 K/uL (130-400) L 07/27/24 07:44 MPV 10.9 fL (9.4-12.4) 07/27/24 07:44 Immature Gran % (Auto) 0.1 % 07/25/24 05:33 Neut % (Auto) 79.1 % 07/25/24 05:33 Lymph % (Auto) 13.1 % 07/25/24 05:33 [place] % (Auto) 7.6 % 07/25/24 05:33 Eos % (Auto) 0.0 % 07/25/24 05:33 Baso % (Auto) 0.1 % 07/25/24 05:33 Neut # (Auto) 5.41 K/uL (1.40-6.50) 07/25/24 05:33 Lymph # (Auto) 0.90 K/uL (1.20-3.40) L 07/25/24 05:33 [place] # (Auto) 0.52 K/uL (0.11-0.59) 07/25/24 05:33 Eos # (Auto) 0.00 K/uL (0.00-0.50) 07/25/24 05:33 Baso # (Auto) 0.01 K/uL (0.00-0.20) 07/25/24 05:33 Immature Gran # (Auto) 0.01 K/uL (0.01-0.20) 07/25/24 05:33 ESR 36 mm/hr (0-20) H 07/24/24 13:14 PT 10.2 Seconds (9.0-12.0) 07/27/24 07:44 INR 0.9 (0.9-1.1) 07/27/24 07:44 APTT 62 Seconds (21-31) H 07/27/24 09:42 PTT Ratio 2.3 07/27/24 09:42 Heparin Anti-Xa, Unfract 0.51 IU/ml (0.3-0.7) 07/27/24 07:44 Sodium 138 mmol/L (136-145) 07/27/24 07:44 Potassium 3.9 mmol/L (3.5-5.1) 07/27/24 07:44 Chloride 106 mmol/L (98-107) 07/27/24 07:44 Carbon Dioxide 27 mmol/L (21-32) 07/27/24 07:44 Anion Gap 5 (3-11) 07/27/24 07:44 BUN 18 mg/dl (6-23) 07/27/24 07:44 Creatinine 1.01 mg/dl (0.6-1.4) 07/27/24 07:44 Est Cr Clr Drug Dosing 71.7 ml/min 07/27/24 07:44 eGFR 84.09 07/27/24 07:44 BUN/Creatinine Ratio 17.8 (10-20) 07/27/24 07:44 Glucose 199 mg/dl (70-99(Fasting)) H 07/27/24 07:44 POC Glucose 271 mg/dl (70-99) H 07/27/24 08:06 Estimat Average Glucose 266 mg/dl 07/25/24 05:33 Hemoglobin A1c 10.9 % (4.5-5.6) H 07/25/24 05:33 Lactate 1.1 mmol/L (0.4-2.0) 07/25/24 05:33 Calcium 8.3 mg/dl (8.6-10.3) L 07/27/24 07:44 Magnesium 1.8 mg/dl (1.7-2.4) 07/25/24 05:33 Total Bilirubin 0.3 mg/dl (0.2-1.0) 07/26/24 04:18 Direct Bilirubin 0.1 mg/dl (0-0.2) 07/26/24 04:18 AST 36 U/L (13-39) 07/26/24 04:18 ALT 16 U/L (7-52) 07/26/24 04:18 Alkaline Phosphatase 70 U/L (34-104) 07/26/24 04:18 Troponin I High Sens 28.8 pg/ml (0-20) H 07/26/24 07:44 C-Reactive Protein 6.72 mg/dl (0-0.5) H 07/24/24 15:28 Total Protein 5.7 gm/dl (6.0-8.3) L 07/26/24 04:18 Albumin 3.1 gm/dl (3.4-5.0) L 07/26/24 04:18 Globulin 3.0 gm/dl (2.5-4.0) 07/25/24 05:33 Albumin/Globulin Ratio 1.0 (0.9-2) 07/25/24 05:33 Procalcitonin 0.94 ng/ml (0-0.5) H 07/24/24 13:14 Urine Color Yellow 07/24/24 13:15 Urine Appearance Clear (Clear) 07/24/24 13:15 Urine pH 6.0 (4.5-7.5) 07/24/24 13:15 Ur Specific [place] 1.023 (1.000-1.030) 07/24/24 13:15 Urine Protein 3+ (Negative) H 07/24/24 13:15 Urine Glucose (UA) 3+ (Negative) H 07/24/24 13:15 Urine Ketones 1+ (Negative) H 07/24/24 13:15 Urine Blood 2+ (Negative) H 07/24/24 13:15 Urine Nitrite Negative (Negative) 07/24/24 13:15 Urine Bilirubin Negative (Negative) 07/24/24 13:15 Urine Urobilinogen Negative (Negative) 07/24/24 13:15 Ur Leukocyte Esterase Negative (Negative) 07/24/24 13:15 Urine WBC (Auto) 0-5 /hpf (0-5) 07/24/24 13:15 Urine RBC (Auto) 0-2 /hpf (0-2) 07/24/24 13:15 U Hyaline Cast (Auto) 0-2 /lpf (0-2) 07/24/24 13:15 U Epithel Cells (Auto) 0-2 /hpf (0-2) 07/24/24 13:15 Urine Bacteria (Auto) None Seen (None Seen) 07/24/24 13:15 Nasal Screen MRSA (PCR) Negative (Negative) 07/24/24 22:50 Adenovirus (PCR) Not Detected (NotDetected) 07/24/24 13:15 B. pertussis DNA (PCR) Not Detected (NotDetected) 07/24/24 13:15 B.parapertussis DNA PCR Not Detected (NotDetected) 07/24/24 13:15 C. pneumoniae DNA (PCR) Not Detected (NotDetected) 07/24/24 13:15 Coronavirus OC43 (PCR) Not Detected (NotDetected) 07/24/24 13:15 Coronavirus HKU1 (PCR) Not Detected (NotDetected) 07/24/24 13:15 Coronavirus 229E (PCR) Not Detected (NotDetected) 07/24/24 13:15 SARS-CoV-2 (PCR) Not Detected (NotDetected) 07/24/24 13:15 Coronavirus NL63 (PCR) Not Detected (NotDetected) 07/24/24 13:15 Human Metapneumovir PCR Not Detected (NotDetected) 07/24/24 13:15 Influenza A (H3) PCR DETECTED (NotDetected) A 07/24/24 13:15 Influenza Type B (PCR) Not Detected (NotDetected) 07/24/24 13:15 M. pneumoniae (PCR) Not Detected (NotDetected) 07/24/24 13:15 Parainfluenza 1 (PCR) Not Detected (NotDetected) 07/24/24 13:15 Parainfluenza 2 (PCR) Not Detected (NotDetected) 07/24/24 13:15 Parainfluenza 3 (PCR) Not Detected (NotDetected) 07/24/24 13:15 Parainfluenza 4 (PCR) Not Detected (NotDetected) 07/24/24 13:15 RSV (PCR) Not Detected (NotDetected) 07/24/24 13:15 Entero/Rhino (PCR) Not Detected (NotDetected) 07/24/24 13:15 Impressions Chest X-Ray 07/24/24 12:51 XR chest 1V portable HISTORY: 64 years-old Male Sepsis COMPARISON: 05/07/2024 TECHNIQUE: AP view the chest FINDINGS: Cardiac silhouette is enlarged. Median sternotomy. No pneumothorax. Patchy bibasilar airspace opacities with chronic interstitial coarsening. Bones appear grossly intact. IMPRESSION: 1. Cardiomegaly without pulmonary edema. 2. Patchy bibasilar opacities are likely infectious or inflammatory. ACT 112: Negative or not required by law. The above report was generated using voice recognition software. It may contain grammatical, syntax or spelling errors. Electronically signed by: Reece Catalan M.D. 07/24/2024 1:[address] 07/24/24 12:58 CT foot LT wo con HISTORY: 64 years-old Male poss osteo chronic pain of the left foot. Clinical concern for osteomyelitis COMPARISON: Ankle radiographs July 09, 2024 TECHNIQUE: Multiple axial CT images of the left foot were obtained without IV contrast. A dose lowering technique was used consistent with the principals of ALARA. FINDINGS: Benign-appearing calcaneal bone island measuring up to 1.3 cm. Small calcaneal enthesophyte. Mild osteoarthritis of the foot and ankle. No acute fracture, dislocation or osseous erosion. Midfoot alignment is anatomic. Subcutaneous edema of the heel pad. Soft tissue thickening of the mid to distal Achilles tendon suggestive of probable tendinosis. No fluid collections or suspicious mass lesions of the soft tissues. Arterial calcifications. Tendons and ligaments are not well evaluated by CT technique. Probable peroneal tendinosis. IMPRESSION: 1. Mild subcutaneous edema of the foot and ankle. No fluid collections. 2. No acute osseous abnormality, notably no CT evidence of acute osteomyelitis. ACT 112: Negative or not required by law. The above report was generated using voice recognition software. It may contain grammatical, syntax or spelling errors. Electronically signed by: Reece Catalan M.D. 07/24/2024 2:45 PM Ankle MRI 07/24/24 16:38 Exam(s): MRI LEFT ANKLE Without Contrast EXAM: MR Left Lower Extremity Without Intravenous Contrast, Ankle CLINICAL HISTORY: Reason for exam: l heel wound. TECHNIQUE: Multiplanar magnetic resonance images of the left ankle without intravenous contrast. COMPARISON: X-rays dated 07/09/2024. FINDINGS: There is some mild soft tissue edema and swelling. No discrete fluid collection is noted. The visualized tendinous and muscular structures are unremarkable. Bony structures are intact. No evidence of acute fracture or dislocation. No gross bony destruction is seen. There is some slight bone marrow edema noted in the inferior posterior aspect of the calcaneus. IMPRESSION: There is some mild soft tissue edema and swelling. There is some slight bone marrow edema noted in the inferior posterior aspect of the calcaneus. It is of uncertain etiology. It may represent some mild bone bruising.. It is not typical for acute osteomyelitis. Electronically signed by: Tejas Reese MD 07/25/24 00:28 AM Duplex Scan Lower Extremity Artery 07/25/24 11:47 US arterial duplex LE LT HISTORY: 64 years-old Male concern for cold left foot COMPARISON: None TECHNIQUE: Lower extremity arterial Doppler with segmental pressures FINDINGS: Left-sided REJI of 0.34, right-sided REJI of 0.68 Extensive atherosclerosis. No arterial occlusion identified. Monophasic waveforms noted throughout with diminished waveforms. Spectral broadening noted within the lower leg arteries. Peak systolic velocities measure only up to 27 cm/s within the profunda femoris artery and measure up to 22 cm/s within the superficial femoral artery. IMPRESSION: 1. No acute arterial occlusion identified. 2. Diminished ABIs, left greater than right. 3. Extensive atherosclerosis with monophasic waveforms demonstrating diminished flow. ACT 112: Negative or not required by law. The above report was generated using voice recognition software. It may contain grammatical, syntax or spelling errors. Electronically signed by: Reece Catalan M.D. 07/25/2024 3:35 PM Aorta w/Runoff CTA 07/25/24 15:25 EXAM: CT Angiography Abdomen and Pelvis With Runoff to the Lower Extremities With Intravenous Contrast INDICATION: Vascular occlusions. TECHNIQUE: Axial computed tomographic angiography images of the abdomen, pelvis and lower extremities with intravenous contrast. Sagittal and coronal reformatted images were created and reviewed. This CT exam was performed using one or more of the following dose reduction techniques: automated exposure control, adjustment of the mA and/or kV according to patient size, and/or use of iterative reconstruction technique. MIP reconstructed images were created and reviewed. CONTRAST: 119ml of Optiray 320 was administered intravenously. COMPARISON: No relevant prior studies available. FINDINGS: VASCULATURE: Aorta: There is diffuse mild mixed plaque throughout the aorta without aneurysm or dissection. Celiac trunk and mesenteric arteries: No acute change noted. No occlusion or significant stenosis. Renal arteries: There is a small focal calcific plaque at the origin of the right renal artery. No stenosis or occlusion. Right iliac arteries: There is diffuse atherosclerotic calcification in the right iliac vessels with focal up to 75% stenosis of the right internal iliac artery series 3 image 364. Right femoral/popliteal arteries: There is focal soft plaque causing 40% stenosis of the proximal right superficial femoral artery. The right popliteal artery is occluded at the knee. Mixed plaque without significant stenosis right common femoral artery most notable distally. Popliteal artery is patent with mild distal calcification. Right calf/foot arteries: There is flow and a small right tibioperoneal trunk with distal calcific plaque. There is no flow in the peroneal and anterior tibial arteries at the level of the distal tibial shaft. No flow noted dorsal right foot. The posterior tibial artery is patent. No occlusion or significant stenosis. Left iliac arteries: The left common iliac artery is occluded and reconstitutes just proximal to the bifurcation. There is diffuse mixed plaque throughout the left external iliac artery without focal stenosis, occlusion or dissection. Left femoral/popliteal arteries: There is mixed plaque in the left common femoral artery with up to 50% stenosis. Left calf/foot arteries: No flow identified in the left anterior tibial artery at the level of the mid tibia. Mild flow noted in the peroneal artery at the level of the ankle. No flow seen dorsum of the foot. The posterior tibial artery is patent. No occlusion or significant stenosis. Lung bases: There is extensive bronchiectasis, coarse infiltrates and groundglass opacities in the visualized portion of each lung. Pleural space: There are trace layering bilateral pleural effusions. Heart: Cardiomegaly. Aortic valvular stent noted. ABDOMEN: Liver: No abnormality noted. No mass. Gallbladder and bile ducts: No abnormality noted. No calcified stones. No ductal dilation. Pancreas: No abnormality noted. No ductal dilation. No mass. Spleen: No abnormality noted. No splenomegaly. Adrenals: Bilateral adrenal thickening without measurable nodule. Kidneys and ureters: There is heterogeneous diminished enhancement of the lower right kidney and bilateral renal scarring right greater than left. There is mild bilateral foot edema. No stones. No hydronephrosis. Stomach and bowel: The colon is redundant. There is a large amount of stool in the descending and rectosigmoid colon. The colon otherwise contains prominent layering fluid. No small bowel obstruction. No thickening. PELVIS: Appendix: No findings to suggest acute appendicitis. Bladder: No abnormality noted. No mass. Reproductive: No significant abnormality noted. ABDOMEN, PELVIS and LOWER EXTREMITIES: Intraperitoneal space: No abnormality noted. No significant fluid collection. No free air. Bones/joints: Metallic hardware right foot. No acute osseous abnormality. Small bilateral knee joint effusions. Soft tissues: No abnormality noted. Lymph nodes: Bilateral hilar adenopathy present with nodes measuring up to 1.5 cm short axis dimension. IMPRESSION: 1. 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 2. There is occlusion of the right popliteal artery at the knee. 3. No flow noted in the right peroneal and anterior tibial arteries at the level of the distal tibia without flow noted dorsum of the right foot. 4. No flow identified in the left anterior tibial artery at the level of the mid tibia. No flow seen dorsum of the left foot. 5. Large amounts of formed stool in the rectosigmoid colon with mild colonic ileus. No obstruction. 6. Heterogeneous enhancement of the inferior right kidney concerning for pyelonephritis. There is scarring of the right kidney. No hydronephrosis. 7. Extensive bronchiectasis and groundglass and parenchymal infiltrates in both lungs likely reflecting acute infection superimposed on chronic small airway disease. ACT 112: Negative or not required by law. Electronically signed by Jory Chandra 07-25-2024 6:14 PM (4) Pneumonia Laterality: bilateral Lung location: lower lobe of lung Pneumonia type: due to unspecified organism Qualified Code(s): J18.9 - Pneumonia, unspecified organism (6) GERD (gastroesophageal reflux disease) Esophagitis presence: with esophagitis Esophagitis bleeding: without hemorrhage Qualified Code(s): K21.00 - Gastro-esophageal reflux disease with esophagitis, without bleeding (7) Barretts esophagus Omntalvo's esophagus type: with low grade dysplasia Qualified Code(s): K22.710 - Montalvo's esophagus with low grade dysplasia (8) Diabetes mellitus, type 2 Diabetes mellitus skilled nursing insulin use: with skilled nursing use Diabetes mellitus complication status: with circulatory complication Diabetes mellitus complication detail: with peripheral angiopathy without gangrene Qualified Code(s): E11.51 - Type 2 diabetes mellitus with diabetic peripheral angiopathy without gangrene; 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
--- NOTE | 2024-07-27 10:42 | XRay Report ---
EXAM: Radiographs of the Left Hip 3 Views INDICATION: Nontraumatic pain. TECHNIQUE: Front view pelvis and AP and frog leg lateral views of the left hip. COMPARISON: No relevant prior studies available. FINDINGS: Limitations: None. Bones/joints: Pelvis is tilted and rotated to the left. There is no fracture or erosion. Maintained acetabular joint space. There is mild greater trochanteric spurring. Soft tissues: No abnormality noted. No radiopaque foreign body noted. IMPRESSION: 1. No acute abnormality of the left hip. 2. The pelvis is rotated and tilted to the left likely related to spasm and/or position. ACT 112: Negative or not required by law. Electronically signed by Jory Chandra 07-27-2024 10:41 AM
[2024-07-28 07:03] LABS: Hematocrit (blood only) 35.3 % (42.0-52.0); Hemoglobin 12.3 g/dl (14.0-18.0); Mean Corpuscular Hemoglobin 30.7 pg (25.0-34.0); Mean Corpuscular Hgb Conc 34.8 g/dL (32.0-36.0); Mean Platelet Volume 10.5 fL (9.4-12.4); Platelet Count 116 K/uL (130-400); RDW Coefficient of Variation 13.9 % (11.5-14.5); RDW Standard Deviation 45.2 fL (36.4-46.3); Red Blood Count 4.01 M/uL (4.70-6.10); White Blood Count 3.39 K/ul (4.8-10.8)
[2024-07-28 07:18] LABS: BUN Creatinine Ratio 18.2 (10-20); Calcium 8.1 mg/dl (8.6-10.3); Creatinine Clr Calc Pharmacy 73.2 ml/min; Potassium 3.8 mmol/L (3.5-5.1)
[2024-07-28 07:26] LABS: ANTI-Xa, UFH(UnfractionatedHep 0.46 IU/ml (0.3-0.7)
[2024-07-28 07:29] LABS: Prothrombin Time 10.5 Seconds (9.0-12.0)
--- NOTE | 2024-07-28 08:22 | Consultation ---
Date of Consultation July 28, 2024 Assessment & Plan (1) Aortoiliac occlusive disease: This patient had CT angiogram which showed occlusion of the left common iliac artery. We recommended an attempt at endovascular repair. He does not have severe ischemia of the foot requiring emergent intervention. His rest pain is not from ischemia but rather from the open areas on the foot. He does have some mild to moderate claudication of the left lower extremity which is chronic. I have discussed the risks options and benefits of the procedure with the patient. The patient understands the risks options and benefits and agrees to the procedure. Thank you very much for letting us participate in the care of this patient. History of Present Illness Reason for Consultation: Dry gangrene left foot Attending Physician: Jose Lei MD History of Present Illness This is a 64-year-old gentleman who presented with complaints of a pneumonia. He was found to have cracks in his heel and foot numbness left lower extremity with gangrene at the base. He claims a been there for some time. They are causing him some discomfort. He does have a history of some mild claudication but denies any symptoms suggestive of rest pain. He does have uncontrolled diabetes. He has a history of AVR. He is on Coumadin. Allergies Allergy/AdvReac Type Severity Reaction Status Date / Time erythromycin base Allergy Intermediate Abdominal Verified 07/08/24 12:35 Pain Home Medications Medication Instructions Recorded Confirmed Type aspirin 81 mg tablet,delayed 81 mg PO DAILY #30 tabs 06/02/24 07/24/24 Rx release cyclobenzaprine 5 mg tablet 5 mg PO TID PRN muscle spasm #30 06/02/24 07/24/24 Rx tabs insulin NPH-regular 70-30 U-100 33 unit (0.33 mL) subcut BID #15 mL 06/02/24 07/24/24 Rx insulin 100 unit/mL subcutaneous pen (Novolin 70-30 FlexPen U-100 Insulin) omeprazole 20 mg capsule,delayed 20 mg PO DAILYBB #30 caps 06/02/24 07/24/24 Rx release pen needle, diabetic 32 gauge x #50 ea 06/02/24 07/24/24 Rx 5/32" (Pen Needle) rosuvastatin 40 mg tablet 40 mg PO QAM #30 tabs 06/02/24 07/24/24 Rx warfarin 2.5 mg tablet 2.5 mg PO DAILY@1600 30 days #30 06/02/24 07/24/24 Rx tabs lisinopril 5 mg tablet (Zestril) 5 mg PO QAM #30 tabs 06/06/24 07/24/24 Rx gabapentin 300 mg capsule 300 mg PO TID #90 caps 07/08/24 07/24/24 Rx Patient History Medical History GERD (gastroesophageal reflux disease) ILD (interstitial lung disease) H/O TIA (transient ischemic attack) and stroke Stroke-like episode - History of TIA vs vertigo per cardio records 11/2021 (on Plavix) - 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 Repeat head CTA 08/2022 was unremarkable and no left ICA aneurysm identified Hypertension Hyperlipidemia PFO (patent foramen ovale) Small per 11/2021 [facility] imaging per cardio records Barretts esophagus Per records Gallbladder sludge reason for upcoming procedure Arthritis, gouty Hx of kidney disease PER PATIENT, ACUTE KIDNEY DISEASE 05/2022>WNL CURRENTLY GERD (gastroesophageal reflux disease) "silent/mild" Diabetes mellitus, type 2 Hx of pancreatitis HOSPITALIZED 05/2022>DKA and acute pancreatitis Aortic valve stenosis Severe per 05/2022 ECHO (PK 0.78-1.0cm2; AV mean PG 23.2mmHg; AV max velocity 3.684m/s) Chronic obstructive pulmonary disease MILD>NO INHALERS PER PATIENT Surgical History H/O mechanical aortic valve replacement Nausea and vomiting after administration of anesthetic agent H/O arthroscopic knee surgery + GANGLION CYST REMOVED>RT History of esophagogastroduodenoscopy (EGD) History of colonoscopy History of tooth extraction History of tonsillectomy and adenoidectomy History of cataract surgery RT/LEFT History of foot surgery RT History of carpal tunnel surgery LEFT Family History Other Diabetes Heart disease No family history of adverse response to anesthesia Social History Smoking Status: Current every day smoker Tobacco Type: Cigarettes Cigarettes Per Day: 4 CIG DAILY>ADVISED; Second Hand Exposure: No; Do You Dip or Chew Tobacco: No; Hx Alcohol Use: Yes Alcohol type: beer Hx Substance Use: No Preferred Language: Dominican Communication Ability: Effective Train Brakeman Required: No Beliefs That Will Affect Care: None marital status: Unknown Current Living Situation: Other Current Living Situation Comment: son Other Information That Helps Us Care for You: No Feels Safe at Home: Yes Safety Concerns: Feels Safe At This Time Assistive Devices: Walker Review of Systems Review of Systems: All systems reviewed & are unremarkable except as noted in HPI & below Physical Exam Constitutional: WD/WN, vitals as above Respiratory: normal respiratory effort; no respiratory distress Auscultation: lungs clear to auscultation bilaterally Cardiovascular: RRR, no murmur, no edema Vessels: + femoral pulses abnormal (Absent on the left), + posterior tibial pulses abnormal (Doppler only) and + dorsalis pedis pulses abnormal (Doppler on the right none on the left) Extremities: normal capillary refill Gastrointestinal (Abdomen): normal bowel sounds, soft, nontender, no hepatosplenomegaly Neurologic: CN's II-XI intact bilaterally and moves all extremities Psychiatric: A+Ox3, euthymic affect Results & Data Vital Signs (Past 12 Hours) Vital Signs Temp Pulse Pulse Resp BP Pulse Ox O2 Del Method 07/28/24 07:40 36.8 C 89 16 128/65 94 Room Air 07/28/24 03:18 36.9 C 75 18 126/72 96 Room Air 07/27/24 23:12 36.8 C 76 17 126/77 97 Room Air 07/27/24 22:00 92 H 07/27/24 20:29 36.8 C 65 19 118/66 96 Room Air
[2024-07-28] MEDS: LANTUS PER UNIT CHARGE SC SCH ×2 (08:28→21:20)
[2024-07-28] MEDS: SODIUM CHLORIDE 0.9% 1,000 ML IV SCH (08:37)
--- NOTE | 2024-07-28 11:28 | Electrocardiogram Report ---
Test Reason : Blood Pressure : */* mmHG Vent. Rate : 96 BPM Atrial Rate : 96 BPM P-R Int : 156 ms QRS Dur : 96 ms QT Int : 360 ms P-R-T Axes : 69 22 47 degrees QTcB Int : 454 ms Normal sinus rhythm with sinus arrhythmia Possible Left atrial enlargement Possible Anterior infarct (cited on or before 24-Jul-2024) Abnormal ECG When compared with ECG of 25-Jul-2024 05:52, No significant change was found Confirmed by Ramu Villa ([id number] on 07/28/2024 11:28:07 AM Referred By: REFERRED SELF Confirmed By: Ramu Villa
--- NOTE | 2024-07-28 11:50 | Hospitalist Progress Note ---
Date of Service July 28, 2024 Assessment & Plan (1) Ischemic rest pain of lower extremity: Plan: -left foot cold to touch, unfindable dorsalis pedis pulse, quite tender -seems to be improving Plan: -vascular surgery recs appreciated -podiatry recs appreciated -continue heparin drip, OR tomorrow -control glucose levels -npo after midnight -preop labs ordered, NSQUIP below -NSQUIP: Patient is moderate/high risk for a moderate risk procedure. (2) Acute hypoxic respiratory failure: Plan: -in setting of influenza A and concern for overlying CAP -resolved Plan: -doxy/zosyn x7 day course, deescalate based on sensitivities -continue IS and flutterr valve, incentive spirometry (3) Influenza A: Plan: -noted on viral screen -see above (4) Pneumonia: Plan: -given hypoxia and imaging, concern for overlying CAP -negative MRSA swab -overall improving, cultures negative Plan: -continue doxy/zosyn for now (5) Hypocalcemia: Plan: -noted on arrival -normal when calculated with albumin level (6) GERD (gastroesophageal reflux disease): Plan: -continue protonix (7) Barretts esophagus: Plan: -noted, continue protonix (8) Diabetes mellitus, type 2: Plan: -likely cause of severe PAD Plan: -insulin per protocol (9) H/O mechanical aortic valve replacement: Plan: -noted -hold warfarin in setting of upcoming procedure Plan Feeding/fluids: regular (NPO after midnight) Analgesia: tylenol/oxy Sedation: na Thromboprophylaxis: heparin drip Head up position: na Ulcer prophylaxis: protonix Glycemic control: insulin Spontaneous breathing trial: NC Bowel care: miralax prn Indwelling catheter removal: Deescalation of antibiotics: post procedure I spent a total of 45 minutes coordinating, documenting, and providing care for this patient excluding time spent in the performance of separately billed services. Admission and Anticipated Discharge Date Admission Date: July 24, 2024 Subjective Patient seen and examined at bedside. Patient is doing well today. He is ready for the procedure. Foot pain is improved. Shortness of breath is resolved. Review of Systems 2 Review of Systems: CONSTITUTIONAL: Patient denies fevers, chills, sweats and weight changes. EYES: Patient denies any visual symptoms. EARS, NOSE, AND THROAT: No difficulties with hearing. No symptoms of rhinitis or sore throat. CARDIOVASCULAR: Patient denies chest pains, palpitations, orthopnea and paroxysmal nocturnal dyspnea. RESPIRATORY: shortness of breath GI: No nausea, vomiting, diarrhea, constipation, abdominal pain, hematochezia or melena. : No urinary hesitancy or dribbling. No nocturia or urinary frequency. No abnormal urethral discharge. MUSCULOSKELETAL: left foot pain, improving NEUROLOGIC: No chronic headaches, no seizures. Patient denies numbness, tingling or weakness. PSYCHIATRIC: Patient denies problems with mood disturbance. No problems with anxiety. ENDOCRINE: No excessive urination or excessive thirst. DERMATOLOGIC: Patient denies any rashes or skin changes. Physical Exam 2 Physical Exam: Gen: A&O 3 NAD HEENT: NCAT, EOMI, not icteric. External ears normal. No rhinorrhea. Moist mucous membranes. Neck: Supple, full range of motion, no observable masses, No meningeal sign. Lungs: No Respiratory distress. CV: trace rhonchi in bilateral lower lobes Abdomen: Soft, nondistended, No rebound tenderness. MSK: no dorsalis pedis pulse left foot, noted behind left ankle, warmer today, left hip pain to palpation improved from prior Skin: No rashes, petechiae, lesions. Normal color per patient. Neuro: Normal Gait, Grossly intact. Psych: Appropriate for situation. Results & Data Results & Data Vital Signs (Past 12 Hours) Vital Signs Temp Pulse Pulse Resp BP Pulse Ox O2 Del Method 07/28/24 11:30 36.6 C 84 16 135/68 92 Room Air 07/28/24 07:40 36.8 C 89 16 128/65 94 Room Air 07/28/24 05:40 92 H 07/28/24 03:18 36.9 C 75 18 126/72 96 Room Air Laboratory Results Laboratory Results WBC 3.39 K/ul (4.8-10.8) L 07/28/24 06:41 RBC 4.01 M/uL (4.70-6.10) L 07/28/24 06:41 Hgb 12.3 g/dl (14.0-18.0) L 07/28/24 06:41 Hct 35.3 % (42.0-52.0) L 07/28/24 06:41 MCV 88.0 fL (80.0-100.0) 07/28/24 06:41 MCH 30.7 pg (25.0-34.0) 07/28/24 06:41 MCHC 34.8 g/dL (32.0-36.0) 07/28/24 06:41 RDW Std Deviation 45.2 fL (36.4-46.3) 07/28/24 06:41 RDW Coeff of Mariah 13.9 % (11.5-14.5) 07/28/24 06:41 Plt Count 116 K/uL (130-400) L 07/28/24 06:41 MPV 10.5 fL (9.4-12.4) 07/28/24 06:41 Immature Gran % (Auto) 0.1 % 07/25/24 05:33 Neut % (Auto) 79.1 % 07/25/24 05:33 Lymph % (Auto) 13.1 % 07/25/24 05:33 [place] % (Auto) 7.6 % 07/25/24 05:33 Eos % (Auto) 0.0 % 07/25/24 05:33 Baso % (Auto) 0.1 % 07/25/24 05:33 Neut # (Auto) 5.41 K/uL (1.40-6.50) 07/25/24 05:33 Lymph # (Auto) 0.90 K/uL (1.20-3.40) L 07/25/24 05:33 [place] # (Auto) 0.52 K/uL (0.11-0.59) 07/25/24 05:33 Eos # (Auto) 0.00 K/uL (0.00-0.50) 07/25/24 05:33 Baso # (Auto) 0.01 K/uL (0.00-0.20) 07/25/24 05:33 Immature Gran # (Auto) 0.01 K/uL (0.01-0.20) 07/25/24 05:33 ESR 36 mm/hr (0-20) H 07/24/24 13:14 PT 10.5 Seconds (9.0-12.0) 07/28/24 06:41 INR 1.0 (0.9-1.1) 07/28/24 06:41 APTT 62 Seconds (21-31) H 07/27/24 09:42 PTT Ratio 2.3 07/27/24 09:42 Heparin Anti-Xa, Unfract 0.46 IU/ml (0.3-0.7) 07/28/24 06:41 Sodium 137 mmol/L (136-145) 07/28/24 06:41 Potassium 3.8 mmol/L (3.5-5.1) 07/28/24 06:41 Chloride 109 mmol/L (98-107) H 07/28/24 06:41 Carbon Dioxide 23 mmol/L (21-32) 07/28/24 06:41 Anion Gap 5 (3-11) 07/28/24 06:41 BUN 18 mg/dl (6-23) 07/28/24 06:41 Creatinine 0.99 mg/dl (0.6-1.4) 07/28/24 06:41 Est Cr Clr Drug Dosing 73.2 ml/min 07/28/24 06:41 eGFR 86.13 07/28/24 06:41 BUN/Creatinine Ratio 18.2 (10-20) 07/28/24 06:41 Glucose 199 mg/dl (70-99(Fasting)) H 07/28/24 06:41 POC Glucose 238 mg/dl (70-99) H 07/28/24 06:29 Estimat Average Glucose 266 mg/dl 07/25/24 05:33 Hemoglobin A1c 10.9 % (4.5-5.6) H 07/25/24 05:33 Lactate 1.1 mmol/L (0.4-2.0) 07/25/24 05:33 Calcium 8.1 mg/dl (8.6-10.3) L 07/28/24 06:41 Magnesium 1.8 mg/dl (1.7-2.4) 07/25/24 05:33 Total Bilirubin 0.3 mg/dl (0.2-1.0) 07/26/24 04:18 Direct Bilirubin 0.1 mg/dl (0-0.2) 07/26/24 04:18 AST 36 U/L (13-39) 07/26/24 04:18 ALT 16 U/L (7-52) 07/26/24 04:18 Alkaline Phosphatase 70 U/L (34-104) 07/26/24 04:18 Troponin I High Sens 28.8 pg/ml (0-20) H 07/26/24 07:44 C-Reactive Protein 6.72 mg/dl (0-0.5) H 07/24/24 15:28 Total Protein 5.7 gm/dl (6.0-8.3) L 07/26/24 04:18 Albumin 3.1 gm/dl (3.4-5.0) L 07/26/24 04:18 Globulin 3.0 gm/dl (2.5-4.0) 07/25/24 05:33 Albumin/Globulin Ratio 1.0 (0.9-2) 07/25/24 05:33 Procalcitonin 0.94 ng/ml (0-0.5) H 07/24/24 13:14 Urine Color Yellow 07/24/24 13:15 Urine Appearance Clear (Clear) 07/24/24 13:15 Urine pH 6.0 (4.5-7.5) 07/24/24 13:15 Ur Specific [place] 1.023 (1.000-1.030) 07/24/24 13:15 Urine Protein 3+ (Negative) H 07/24/24 13:15 Urine Glucose (UA) 3+ (Negative) H 07/24/24 13:15 Urine Ketones 1+ (Negative) H 07/24/24 13:15 Urine Blood 2+ (Negative) H 07/24/24 13:15 Urine Nitrite Negative (Negative) 07/24/24 13:15 Urine Bilirubin Negative (Negative) 07/24/24 13:15 Urine Urobilinogen Negative (Negative) 07/24/24 13:15 Ur Leukocyte Esterase Negative (Negative) 07/24/24 13:15 Urine WBC (Auto) 0-5 /hpf (0-5) 07/24/24 13:15 Urine RBC (Auto) 0-2 /hpf (0-2) 07/24/24 13:15 U Hyaline Cast (Auto) 0-2 /lpf (0-2) 07/24/24 13:15 U Epithel Cells (Auto) 0-2 /hpf (0-2) 07/24/24 13:15 Urine Bacteria (Auto) None Seen (None Seen) 07/24/24 13:15 Nasal Screen MRSA (PCR) Negative (Negative) 07/24/24 22:50 Adenovirus (PCR) Not Detected (NotDetected) 07/24/24 13:15 B. pertussis DNA (PCR) Not Detected (NotDetected) 07/24/24 13:15 B.parapertussis DNA PCR Not Detected (NotDetected) 07/24/24 13:15 C. pneumoniae DNA (PCR) Not Detected (NotDetected) 07/24/24 13:15 Coronavirus OC43 (PCR) Not Detected (NotDetected) 07/24/24 13:15 Coronavirus HKU1 (PCR) Not Detected (NotDetected) 07/24/24 13:15 Coronavirus 229E (PCR) Not Detected (NotDetected) 07/24/24 13:15 SARS-CoV-2 (PCR) Not Detected (NotDetected) 07/24/24 13:15 Coronavirus NL63 (PCR) Not Detected (NotDetected) 07/24/24 13:15 Human Metapneumovir PCR Not Detected (NotDetected) 07/24/24 13:15 Influenza A (H3) PCR DETECTED (NotDetected) A 07/24/24 13:15 Influenza Type B (PCR) Not Detected (NotDetected) 07/24/24 13:15 M. pneumoniae (PCR) Not Detected (NotDetected) 07/24/24 13:15 Parainfluenza 1 (PCR) Not Detected (NotDetected) 07/24/24 13:15 Parainfluenza 2 (PCR) Not Detected (NotDetected) 07/24/24 13:15 Parainfluenza 3 (PCR) Not Detected (NotDetected) 07/24/24 13:15 Parainfluenza 4 (PCR) Not Detected (NotDetected) 07/24/24 13:15 RSV (PCR) Not Detected (NotDetected) 07/24/24 13:15 Entero/Rhino (PCR) Not Detected (NotDetected) 07/24/24 13:15 Blood Type O Positive 07/27/24 09:42 Antibody Screen NEGATIVE 07/27/24 09:42 Impressions Chest X-Ray 07/24/24 12:51 XR chest 1V portable HISTORY: 64 years-old Male Sepsis COMPARISON: 05/07/2024 TECHNIQUE: AP view the chest FINDINGS: Cardiac silhouette is enlarged. Median sternotomy. No pneumothorax. Patchy bibasilar airspace opacities with chronic interstitial coarsening. Bones appear grossly intact. IMPRESSION: 1. Cardiomegaly without pulmonary edema. 2. Patchy bibasilar opacities are likely infectious or inflammatory. ACT 112: Negative or not required by law. The above report was generated using voice recognition software. It may contain grammatical, syntax or spelling errors. Electronically signed by: Reece Catalan M.D. 07/24/2024 1:[address] 07/24/24 12:58 CT foot LT wo con HISTORY: 64 years-old Male poss osteo chronic pain of the left foot. Clinical concern for osteomyelitis COMPARISON: Ankle radiographs July 09, 2024 TECHNIQUE: Multiple axial CT images of the left foot were obtained without IV contrast. A dose lowering technique was used consistent with the principals of ALARA. FINDINGS: Benign-appearing calcaneal bone island measuring up to 1.3 cm. Small calcaneal enthesophyte. Mild osteoarthritis of the foot and ankle. No acute fracture, dislocation or osseous erosion. Midfoot alignment is anatomic. Subcutaneous edema of the heel pad. Soft tissue thickening of the mid to distal Achilles tendon suggestive of probable tendinosis. No fluid collections or suspicious mass lesions of the soft tissues. Arterial calcifications. Tendons and ligaments are not well evaluated by CT technique. Probable peroneal tendinosis. IMPRESSION: 1. Mild subcutaneous edema of the foot and ankle. No fluid collections. 2. No acute osseous abnormality, notably no CT evidence of acute osteomyelitis. ACT 112: Negative or not required by law. The above report was generated using voice recognition software. It may contain grammatical, syntax or spelling errors. Electronically signed by: Reece Catalan M.D. 07/24/2024 2:45 PM Ankle MRI 07/24/24 16:38 Exam(s): MRI LEFT ANKLE Without Contrast EXAM: MR Left Lower Extremity Without Intravenous Contrast, Ankle CLINICAL HISTORY: Reason for exam: l heel wound. TECHNIQUE: Multiplanar magnetic resonance images of the left ankle without intravenous contrast. COMPARISON: X-rays dated 07/09/2024. FINDINGS: There is some mild soft tissue edema and swelling. No discrete fluid collection is noted. The visualized tendinous and muscular structures are unremarkable. Bony structures are intact. No evidence of acute fracture or dislocation. No gross bony destruction is seen. There is some slight bone marrow edema noted in the inferior posterior aspect of the calcaneus. IMPRESSION: There is some mild soft tissue edema and swelling. There is some slight bone marrow edema noted in the inferior posterior aspect of the calcaneus. It is of uncertain etiology. It may represent some mild bone bruising.. It is not typical for acute osteomyelitis. Electronically signed by: Tejas Reese MD 07/25/24 00:28 AM Duplex Scan Lower Extremity Artery 07/25/24 11:47 US arterial duplex LE LT HISTORY: 64 years-old Male concern for cold left foot COMPARISON: None TECHNIQUE: Lower extremity arterial Doppler with segmental pressures FINDINGS: Left-sided REJI of 0.34, right-sided REJI of 0.68 Extensive atherosclerosis. No arterial occlusion identified. Monophasic waveforms noted throughout with diminished waveforms. Spectral broadening noted within the lower leg arteries. Peak systolic velocities measure only up to 27 cm/s within the profunda femoris artery and measure up to 22 cm/s within the superficial femoral artery. IMPRESSION: 1. No acute arterial occlusion identified. 2. Diminished ABIs, left greater than right. 3. Extensive atherosclerosis with monophasic waveforms demonstrating diminished flow. ACT 112: Negative or not required by law. The above report was generated using voice recognition software. It may contain grammatical, syntax or spelling errors. Electronically signed by: Reece Catalan M.D. 07/25/2024 3:35 PM Aorta w/Runoff CTA 07/25/24 15:25 EXAM: CT Angiography Abdomen and Pelvis With Runoff to the Lower Extremities With Intravenous Contrast INDICATION: Vascular occlusions. TECHNIQUE: Axial computed tomographic angiography images of the abdomen, pelvis and lower extremities with intravenous contrast. Sagittal and coronal reformatted images were created and reviewed. This CT exam was performed using one or more of the following dose reduction techniques: automated exposure control, adjustment of the mA and/or kV according to patient size, and/or use of iterative reconstruction technique. MIP reconstructed images were created and reviewed. CONTRAST: 119ml of Optiray 320 was administered intravenously. COMPARISON: No relevant prior studies available. FINDINGS: VASCULATURE: Aorta: There is diffuse mild mixed plaque throughout the aorta without aneurysm or dissection. Celiac trunk and mesenteric arteries: No acute change noted. No occlusion or significant stenosis. Renal arteries: There is a small focal calcific plaque at the origin of the right renal artery. No stenosis or occlusion. Right iliac arteries: There is diffuse atherosclerotic calcification in the right iliac vessels with focal up to 75% stenosis of the right internal iliac artery series 3 image 364. Right femoral/popliteal arteries: There is focal soft plaque causing 40% stenosis of the proximal right superficial femoral artery. The right popliteal artery is occluded at the knee. Mixed plaque without significant stenosis right common femoral artery most notable distally. Popliteal artery is patent with mild distal calcification. Right calf/foot arteries: There is flow and a small right tibioperoneal trunk with distal calcific plaque. There is no flow in the peroneal and anterior tibial arteries at the level of the distal tibial shaft. No flow noted dorsal right foot. The posterior tibial artery is patent. No occlusion or significant stenosis. Left iliac arteries: The left common iliac artery is occluded and reconstitutes just proximal to the bifurcation. There is diffuse mixed plaque throughout the left external iliac artery without focal stenosis, occlusion or dissection. Left femoral/popliteal arteries: There is mixed plaque in the left common femoral artery with up to 50% stenosis. Left calf/foot arteries: No flow identified in the left anterior tibial artery at the level of the mid tibia. Mild flow noted in the peroneal artery at the level of the ankle. No flow seen dorsum of the foot. The posterior tibial artery is patent. No occlusion or significant stenosis. Lung bases: There is extensive bronchiectasis, coarse infiltrates and groundglass opacities in the visualized portion of each lung. Pleural space: There are trace layering bilateral pleural effusions. Heart: Cardiomegaly. Aortic valvular stent noted. ABDOMEN: Liver: No abnormality noted. No mass. Gallbladder and bile ducts: No abnormality noted. No calcified stones. No ductal dilation. Pancreas: No abnormality noted. No ductal dilation. No mass. Spleen: No abnormality noted. No splenomegaly. Adrenals: Bilateral adrenal thickening without measurable nodule. Kidneys and ureters: There is heterogeneous diminished enhancement of the lower right kidney and bilateral renal scarring right greater than left. There is mild bilateral foot edema. No stones. No hydronephrosis. Stomach and bowel: The colon is redundant. There is a large amount of stool in the descending and rectosigmoid colon. The colon otherwise contains prominent layering fluid. No small bowel obstruction. No thickening. PELVIS: Appendix: No findings to suggest acute appendicitis. Bladder: No abnormality noted. No mass. Reproductive: No significant abnormality noted. ABDOMEN, PELVIS and LOWER EXTREMITIES: Intraperitoneal space: No abnormality noted. No significant fluid collection. No free air. Bones/joints: Metallic hardware right foot. No acute osseous abnormality. Small bilateral knee joint effusions. Soft tissues: No abnormality noted. Lymph nodes: Bilateral hilar adenopathy present with nodes measuring up to 1.5 cm short axis dimension. IMPRESSION: 1. 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 2. There is occlusion of the right popliteal artery at the knee. 3. No flow noted in the right peroneal and anterior tibial arteries at the level of the distal tibia without flow noted dorsum of the right foot. 4. No flow identified in the left anterior tibial artery at the level of the mid tibia. No flow seen dorsum of the left foot. 5. Large amounts of formed stool in the rectosigmoid colon with mild colonic ileus. No obstruction. 6. Heterogeneous enhancement of the inferior right kidney concerning for pyelonephritis. There is scarring of the right kidney. No hydronephrosis. 7. Extensive bronchiectasis and groundglass and parenchymal infiltrates in both lungs likely reflecting acute infection superimposed on chronic small airway disease. ACT 112: Negative or not required by law. Electronically signed by Jory Chandra 07-25-2024 6:14 PM Hip/Pelvis X-Ray 07/27/24 09:21 EXAM: Radiographs of the Left Hip 3 Views INDICATION: Nontraumatic pain. TECHNIQUE: Front view pelvis and AP and frog leg lateral views of the left hip. COMPARISON: No relevant prior studies available. FINDINGS: Limitations: None. Bones/joints: Pelvis is tilted and rotated to the left. There is no fracture or erosion. Maintained acetabular joint space. There is mild greater trochanteric spurring. Soft tissues: No abnormality noted. No radiopaque foreign body noted. IMPRESSION: 1. No acute abnormality of the left hip. 2. The pelvis is rotated and tilted to the left likely related to spasm and/or position. ACT 112: Negative or not required by law. Electronically signed by Jory Chandra 07-27-2024 10:41 AM (4) Pneumonia Laterality: bilateral Lung location: lower lobe of lung Pneumonia type: due to unspecified organism Qualified Code(s): J18.9 - Pneumonia, unspecified organism (6) GERD (gastroesophageal reflux disease) Esophagitis presence: with esophagitis Esophagitis bleeding: without hemorrhage Qualified Code(s): K21.00 - Gastro-esophageal reflux disease with esophagitis, without bleeding (7) Barretts esophagus Montalvo's esophagus type: with low grade dysplasia Qualified Code(s): K22.710 - Montalvo's esophagus with low grade dysplasia (8) Diabetes mellitus, type 2 Diabetes mellitus buttermaker insulin use: with buttermaker use Diabetes mellitus complication status: with circulatory complication Diabetes mellitus complication detail: with peripheral angiopathy without gangrene Qualified Code(s): E11.51 - Type 2 diabetes mellitus with diabetic peripheral angiopathy without gangrene; Z79.4 - skilled nursing (current) use of insulin
--- NOTE | 2024-07-28 12:02 | History & Physical Bridge Note ---
Date of Service July 28, 2024 History & Physical Bridge Note Patient for arteriography with possible iliac stenting. I have discussed the risks options and benefits of the procedure with the patient. The patient understands the risks options and benefits and agrees to the procedure. I have examined the patient, reviewed the History & Physical and in the interval since the performance of the History & Physical I have noted the following changes of clinical significance: no changes noted
--- NOTE | 2024-07-28 12:52 | Pre Anesthesia Assessment ---
Date of Service July 28, 2024 Pre Sedation Assessment Vital Signs Temp Pulse Pulse Pulse Resp BP Pulse Ox 07/28/24 12:01 36.8 C 86 20 139/66 94 07/28/24 11:30 36.6 C 84 16 135/68 92 07/28/24 07:40 36.8 C 89 16 128/65 94 07/28/24 05:40 92 H 07/28/24 03:18 36.9 C 75 18 126/72 96 07/27/24 23:12 36.8 C 76 17 126/77 97 07/27/24 22:00 92 H 07/27/24 20:29 36.8 C 65 19 118/66 96 07/27/24 20:00 07/27/24 14:55 36.4 C L 84 17 117/65 94 07/27/24 13:54 90 O2 Del Method 07/28/24 12:01 Room Air 07/28/24 11:30 Room Air 07/28/24 07:40 Room Air 07/28/24 05:40 07/28/24 03:18 Room Air 07/27/24 23:12 Room Air 07/27/24 22:00 07/27/24 20:29 Room Air 07/27/24 20:00 Room Air 07/27/24 14:55 Room Air 07/27/24 13:54 Cardiovascular RRR, no murmur, no edema Respiratory normal respiratory effort, lungs clear to auscultation Pre-Sedation Airway Assessment Smoking Status: Current every day smoker Hx Sleep Apnea: No Short, Thick Neck: No Thyromental Distance: > or= 3.5 Finger Breadths Oral Cavity: + WNL Mallampati Class: II ASA: ASA3 NPO Status Date of Last Intake of Fluids: 07/28/24 Time of Last Intake of Fluids: 06:00 Last Oral Intake of Fluids Comment: sips of water with meds Date of Last Intake of Solid Food: 07/27/24 Time of Last Intake of Solid Foods: 17:00 Procedure Planning Contraindications for Sedation: none Current Medications Reviewed: Yes Notes The planned sedation has been discussed with the patient. Informed Consent was obtained. I have identified the patient, determined the appropriateness of sedation and have assessed the patient immediately prior to the procedure. All medicine(s) and interventions are by my order.
--- NOTE | 2024-07-28 12:53 | Pharmacy Report ---
Pharmacy Glycemic Short Note 2 - Date of Service July 28, 2024 - Glycemic Short BSG Results (Last 24 hours): 07/27/24 07/27/24 07/27/24 15:59 16:00 16:20 Glucose POC Glucose 56 L* 66 L* 72 07/27/24 07/27/24 07/28/24 19:56 23:18 06:29 Glucose POC Glucose 265 H 220 H 238 H 07/28/24 07/28/24 06:41 11:57 Glucose 199 H POC Glucose 129 H OUTPATIENT ANTIDIABETIC REGIMEN: * Novolin 70/30 33 units SQ BID * HbA1c 10.9 (07/25/24), 13.8 (05/29/24) ASSESSMENT: 07/28/24: * Patient with episode of hypoglycemia yesterday at dinnertime (56 mg/dL) * NPO after midnight for left lower extremity angiogram w/ stenting * Fasting blood sugar elevated this morning, but will decrease basal and loosen Novolog in response to hypoglycemia yesterday 07/25/24: * Derek is a 64 YOM admitted with foot infection and influenza A infection with a history of T2DM. Pharmacy has been consulted to assist with glycemic management while inpatient. * BSG in 500s upon admission, decision was made to treat with an IV insulin bolus yesterday afternoon, AG slightly elevated, resolved upon repeat and BSGs decreased overnight with SQ insulin. * Fasting BSG this AM slightly above goal range, decided to continue with Lantus vs insulin NPH due to previous admission were glycemic control was not optimal with NPH. * Hypoglycemic with lunch, potentially caused by stacking correction overnight, NovoLog originally started based on historic data, will loosen correction factor slightly. PLAN FOR INPATIENT GLYCEMIC CONTROL: * Basal insulin * Lantus 15 units SC daily * Lantus 0-5-10 units SC HS * Bolus insulin * NovoLog per scale ACHS or Q6hrs while NPO * Goal Range: Low 120 mg/dL - High 160 mg/dL * Correction Factor: 30 mg/dL/unit * Nutritional / Prandial insulin per carb ratio of 1 unit per 8 grams CHO consumed
[2024-07-28] MEDS: fentaNYL citrate PF 100 MCG/2 ML VIAL ONE (13:03)
[2024-07-28] MEDS: MIDAZOLAM HCL 1 MG/ML 2ML VIAL ONE (13:04)
[2024-07-28] MEDS: LIDOCAINE 1% LOCAL 20 ML VIAL ONE (13:14)
--- NOTE | 2024-07-28 13:48 | Post Anesthesia Assessment ---
Date of Service July 28, 2024 Post Sedation Assessment Vital Signs Temp Pulse Pulse Pulse Resp BP Pulse Ox 07/28/24 13:46 86 16 138/69 96 07/28/24 13:40 85 16 129/67 96 07/28/24 13:35 85 16 139/65 96 07/28/24 13:30 86 16 161/80 H 96 07/28/24 13:25 90 16 148/67 H 96 07/28/24 13:20 90 16 147/68 H 97 07/28/24 13:15 89 16 139/69 97 07/28/24 13:10 88 16 154/74 H 97 07/28/24 13:05 88 16 135/68 96 07/28/24 13:00 87 16 151/70 H 98 07/28/24 12:55 88 16 156/75 H 97 07/28/24 12:01 36.8 C 86 20 139/66 94 07/28/24 11:30 36.6 C 84 16 135/68 92 07/28/24 07:40 36.8 C 89 16 128/65 94 07/28/24 05:40 92 H 07/28/24 03:18 36.9 C 75 18 126/72 96 07/27/24 23:12 36.8 C 76 17 126/77 97 07/27/24 22:00 92 H 07/27/24 20:29 36.8 C 65 19 118/66 96 07/27/24 20:00 07/27/24 14:55 36.4 C L 84 17 117/65 94 07/27/24 13:54 90 O2 Del Method O2 Flow Rate 07/28/24 13:46 Oxymask 4 07/28/24 13:40 Oxymask 4 07/28/24 13:35 Oxymask 4 07/28/24 13:30 Oxymask 4 07/28/24 13:25 Oxymask 4 07/28/24 13:20 Oxymask 4 07/28/24 13:15 Oxymask 4 07/28/24 13:10 Oxymask 4 07/28/24 13:05 Oxymask 4 07/28/24 13:00 Oxymask 4 07/28/24 12:55 Oxymask 4 07/28/24 12:01 Room Air 07/28/24 11:30 Room Air 07/28/24 07:40 Room Air 07/28/24 05:40 07/28/24 03:18 Room Air 07/27/24 23:12 Room Air 07/27/24 22:00 07/27/24 20:29 Room Air 07/27/24 20:00 Room Air 07/27/24 14:55 Room Air 07/27/24 13:54 Recovery Score Activity: Moves 4 extremities Respiration: Deep Breath/Cough Circulation: +/-20% PreAnes Value Consciousness: Arouseable (by name) Oxygen Saturation: O2 needed for >90% Post Anesthesia Score: 8 Discharge Sedation Level of Care: Fast Track Phase II Post Sedation Plan On clinical assessment, the patient appears to have tolerated the sedation without complications. Patient is recovering as anticipated. Patient will continue to be monitored by nursing and may be discharged when sedation discharge criteria are met per below protocol. Upon Completions of procedure up to 15 minutes continue every 5 minute vital signs and the P.A.R. score; then discharge to a Phase I or Fast Track to Phase II per the following guidelines: * Discharge Patient to appropriate Phase II area if PAR is 8 or greater or return to pre- procedure baseline. The post - procedure orders will be as directed. * If PAR score is less than 8 or not return to pre-procedure baseline then patient will follow Phase I monitoring till PAR is reached for Phase II. The Phase I may be done in procedure room or may call to secure a Phase I area. * If naloxone or flumazenil are used for reversal, hold in Phase I for continued monitoring from when last reversal dose was given for a minimum of 60 minutes or longer pending the nurse and/or physician discretion of patient condition before discharge to Phase II. Please call the Sedation Physician to re-evaluate and complete post-note for discharge to Phase II area. Do NOT discharge from procedure sedation or Phase 1 until post- sedation evaluation note is complete by procedure /sedation MD Sedation Discharge Instructions to be given to the patient at discharge to home.
[2024-07-28] MEDS: VISIPAQUE IV PRN (13:52)
--- NOTE | 2024-07-28 13:57 | Procedure Note ---
Angiogram Post Procedure Fluoroscopy Time (minutes): 4.2 Conscious Sedation Time (minutes): 56 Radiation (mGy): 97 Contrast: 90 Post Operative Report Pre & Post Diagnosis Operation Date: 07/28/24 09:10 Pre-Op Diagnosis: Gangrene Left Foot Post-Op Diagnosis: Gangrene Left Foot I identified the patient and participated in the time-out.: Yes Procedure Operation Date: 07/28/24 09:10 Actual Procedures p Bilateral Lower Extremity Angiogram,Bilateral Iliac Stenting and Percutuaneous Transluminal Angioplasty,Moderate Sedation [id number](Bilateral) - Delvis Busch MD Surgeon Delvis Busch MD Manager Monitoring none Estimated Blood Loss 5 Findings Consistent with Post-Op Diagnosis Specimens none Anesthesia Type RN Sedation Complications none Disposition Accompanied Patient To Recovery: No Disposition: Recovery Room Indications This is a 65-year-old gentleman who presented with packed areas of skin of his left foot with gangrenous changes of the wounds himself. He does complain of some claudication of the left lower extremity. He was complaining pain in his left foot however was more due to the open area rather than the rest pain. 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 Intervention was recommended. I have discussed the risks options and benefits of the procedure with the patient. The patient understands the risks options and benefits and agrees to the procedure. Description of Procedure The patient was taken the angiogram suite placed spine position. After the groins were prepped draped in sterile manner patient was identified and a timeout was performed. Using ultrasound the left common femoral artery was identified. It had mild plaque but was patent. We then punctured the artery under direct ultrasound guidance and inserted a 5 Malaysian sheath. Hand-injection was then performed which showed a totally occluded left common iliac artery with reconstitution just above the iliac bifurcation. Using an 035 wire and a quick cross catheter we were able to cross the occluded lesion. We then imaged the right groin. Common femoral artery was patent with mild plaque. Under ultrasound guidance the right common femoral artery was punctured and a 6 Malaysian sheath inserted. We then passed an 035 wire. Retrograde of the abdominal aorta and a pigtail catheter which were placed at the bifurcation. Aortography and bilateral pelvic runoff was performed. The right common iliac artery had a moderate stenosis in its origin. The external iliac was widely patent. The left side was totally occluded common iliac artery just almost flush with its origin reconstituted slightly above the bifurcation. We then reinserted the proximal left side and exchanged the wire for a stiff Glidewire. We then exchanged the sheath for a 7 Malaysian sheath. On the right side we reinserted the 035 wire and upsized the sheath to a 7 Malaysian. We then inserted an 8 x 29 VBX on the right groin into the right common iliac artery and an 8 x 49 on the left groin into the left common iliac artery. These were then dilated to 14 raúl. We removed the balloon from the right side and inserted a 10 x 4 balloon and expanded the stent to 10 mm. The vessel itself measured 9.5 mm. On the left side there was still a small portion of narrowing seen beyond the stent. We then inserted a 8 x 29 and overlapping with the previous stent and expanded this short of the bifurcation of the iliac. This had nice contour with no residual narrowing. We did not do a post dilatation of the VBX. Completion angio showed excellent flow through both iliacs. Star closure device were then used to close the puncture sites. Adequate stasis was noted. Sterile dressings were applied to the wounds.The patient left the operation room in satisfactory condition and tolerated the procedure well. All needle and sponge counts were correct at the end of the procedure. I attest to the content of the Intraoperative Record and any orders documented therein. Any exceptions are noted below.
[2024-07-28] MEDS: CLOPIDOGREL BISULFATE 300 MG TAB PO STA (15:22)
[2024-07-29 06:55] LABS: Hematocrit (blood only) 35.4 % (42.0-52.0); Hemoglobin 12.3 g/dl (14.0-18.0); Mean Corpuscular Hemoglobin 30.8 pg (25.0-34.0); Mean Corpuscular Hgb Conc 34.7 g/dL (32.0-36.0); Mean Corpuscular Volume 88.7 fL (80.0-100.0); Mean Platelet Volume 10.3 fL (9.4-12.4); Platelet Count 121 K/uL (130-400); RDW Coefficient of Variation 13.9 % (11.5-14.5); Red Blood Count 3.99 M/uL (4.70-6.10)
[2024-07-29] MEDS: MIDAZOLAM HCL 1 MG/ML 2ML VIAL ONE (07:15)
[2024-07-29 07:25] LABS: Prothrombin Time 10.4 Seconds (9.0-12.0)
[2024-07-29 07:37] LABS: BUN Creatinine Ratio 20.5 (10-20); Calcium 8.4 mg/dl (8.6-10.3); Creatinine Clr Calc Pharmacy 82.1 ml/min; Potassium 3.9 mmol/L (3.5-5.1)
[2024-07-29] MEDS: LANTUS PER UNIT CHARGE SC SCH (08:31)
[2024-07-29] MEDS: CLOPIDOGREL BISULFATE 75 MG TAB PO SCH (08:37)
[2024-07-29] MEDS: 4.5GM X1 IV ONE (09:01)
--- NOTE | 2024-07-29 11:29 | Surgery Progress Note ---
Date of Service July 29, 2024 Assessment & Plan (1) Aortoiliac occlusive disease: Plan: Pt doing well post op after LLE iliac stenting. Will plan to see pt in office in 3 months. Pt agreeable. Please call if needed. Admission and Anticipated Discharge Date Admission Date: July 24, 2024 Subjective 64 yo m POD #1 after LLE angio with stenting of iliac artery, seen in f/u today. Pt states still having some pain in LLE, but mildly improved. No problems with R femoral puncture. No other new complaints. Review of Systems Review of Systems: All systems reviewed & are unremarkable except as noted in HPI & below Physical Exam Constitutional: WD/WN, vitals as above cooperative; not in distress Cardiovascular: Vessels: posterior tibial pulses present (+3 BLE) and dorsalis pedis pulses present (+2 BLE) Extremities: normal capillary refill; no edema Skin: + incision (R femoral arteyr access site C/D/I.) Psychiatric: A+Ox3, euthymic affect Results & Data Vital Signs (Past 12 Hours) Vital Signs Temp Pulse Pulse Resp BP Pulse Ox O2 Del Method 07/29/24 07:57 89 07/29/24 07:21 36.6 C 88 17 152/72 H 94 Room Air 07/29/24 02:42 36.6 C 87 21 155/74 H 95 Room Air 07/28/24 23:39 97 H
[2024-07-29] MEDS: LANTUS PER UNIT CHARGE SC ONE (11:58)
--- NOTE | 2024-07-29 12:45 | Hospitalist Progress Note ---
Date of Service July 29, 2024 Assessment & Plan (1) Ischemic rest pain of lower extremity: Plan: -s/p angiogram and stenting on 07/28/2020 with success -patient much improved today Plan: -PT/OT, awaiting placement -deescalate abx to levofloxacin/doxy for 3 more day to finish course of abx given source control (2) Acute hypoxic respiratory failure: Plan: -in setting of influenza A and concern for overlying CAP -resolved (3) Influenza A: Plan: -noted on viral screen -see above (4) Pneumonia: Plan: -resolved (5) Hypocalcemia: Plan: -noted on arrival -normal when calculated with albumin level (6) GERD (gastroesophageal reflux disease): Plan: -continue protonix (7) Barretts esophagus: Plan: -noted, continue protonix (8) Diabetes mellitus, type 2: Plan: -likely cause of severe PAD Plan: -insulin per protocol (9) H/O mechanical aortic valve replacement: Plan: -warfarin held due to procedure Plan: -restart bridging with heparin to warfarin tomorrow on post op day 2 Plan Feeding/fluids: regular Analgesia: tylenol/oxy Sedation: na Thromboprophylaxis: start heparin tomorrow Head up position: na Ulcer prophylaxis: protonix Glycemic control: insulin Spontaneous breathing trial: room air Bowel care: miralax prn Indwelling catheter removal: na Deescalation of antibiotics: deescalated to levofloxacin/doxy today I spent a total of 55 minutes coordinating, documenting, and providing care for this patient excluding time spent in the performance of separately billed services. Admission and Anticipated Discharge Date Admission Date: July 24, 2024 Subjective Patient seen and examined at bedside. Foot feels better today. States it feels warm, little tingly. No other concerns at this time. Agreeable to rehab. Review of Systems Review of Systems: CONSTITUTIONAL: Patient denies fevers, chills, sweats and weight changes. EYES: Patient denies any visual symptoms. EARS, NOSE, AND THROAT: No difficulties with hearing. No symptoms of rhinitis or sore throat. CARDIOVASCULAR: Patient denies chest pains, palpitations, orthopnea and paroxysmal nocturnal dyspnea. RESPIRATORY: shortness of breath GI: No nausea, vomiting, diarrhea, constipation, abdominal pain, hematochezia or melena. : No urinary hesitancy or dribbling. No nocturia or urinary frequency. No abnormal urethral discharge. MUSCULOSKELETAL: left foot pain, improving NEUROLOGIC: No chronic headaches, no seizures. Patient denies numbness, tingling or weakness. PSYCHIATRIC: Patient denies problems with mood disturbance. No problems with anxiety. ENDOCRINE: No excessive urination or excessive thirst. DERMATOLOGIC: Patient denies any rashes or skin changes. Physical Exam Physical Exam: Gen: A&O 3 NAD HEENT: NCAT, EOMI, not icteric. External ears normal. No rhinorrhea. Moist mucous membranes. Neck: Supple, full range of motion, no observable masses, No meningeal sign. Lungs: No Respiratory distress. CV: trace rhonchi in bilateral lower lobes Abdomen: Soft, nondistended, No rebound tenderness. MSK: left foot warm today with palpable pulse to palpation Skin: No rashes, petechiae, lesions. Normal color per patient. Neuro: Normal Gait, Grossly intact. Psych: Appropriate for situation. Results & Data Results & Data Vital Signs (Past 12 Hours) Vital Signs Temp Pulse Pulse Resp BP Pulse Ox O2 Del Method 07/29/24 11:41 36.9 C 90 18 145/74 H 94 Room Air 07/29/24 07:57 89 07/29/24 07:21 36.6 C 88 17 152/72 H 94 Room Air 07/29/24 02:42 36.6 C 87 21 155/74 H 95 Room Air Laboratory Results Laboratory Results WBC 3.90 K/ul (4.8-10.8) L 07/29/24 06:22 RBC 3.99 M/uL (4.70-6.10) L 07/29/24 06:22 Hgb 12.3 g/dl (14.0-18.0) L 07/29/24 06:22 Hct 35.4 % (42.0-52.0) L 07/29/24 06:22 MCV 88.7 fL (80.0-100.0) 07/29/24 06:22 MCH 30.8 pg (25.0-34.0) 07/29/24 06:22 MCHC 34.7 g/dL (32.0-36.0) 07/29/24 06:22 RDW Std Deviation 45.0 fL (36.4-46.3) 01/21/25 06:22 RDW Coeff of Mariah 13.9 % (11.5-14.5) 07/29/24 06:22 Plt Count 121 K/uL (130-400) L 07/29/24 06:22 MPV 10.3 fL (9.4-12.4) 07/29/24 06:22 Immature Gran % (Auto) 0.1 % 07/25/24 05:33 Neut % (Auto) 79.1 % 07/25/24 05:33 Lymph % (Auto) 13.1 % 07/25/24 05:33 Mccreary % (Auto) 7.6 % 07/25/24 05:33 Eos % (Auto) 0.0 % 07/25/24 05:33 Baso % (Auto) 0.1 % 07/25/24 05:33 Neut # (Auto) 5.41 K/uL (1.40-6.50) 07/25/24 05:33 Lymph # (Auto) 0.90 K/uL (1.20-3.40) L 07/25/24 05:33 Mccreary # (Auto) 0.52 K/uL (0.11-0.59) 07/25/24 05:33 Eos # (Auto) 0.00 K/uL (0.00-0.50) 07/25/24 05:33 Baso # (Auto) 0.01 K/uL (0.00-0.20) 07/25/24 05:33 Immature Gran # (Auto) 0.01 K/uL (0.01-0.20) 07/25/24 05:33 ESR 36 mm/hr (0-20) H 07/24/24 13:14 PT 10.4 Seconds (9.0-12.0) 07/29/24 06:22 INR 1.0 (0.9-1.1) 07/29/24 06:22 APTT 62 Seconds (21-31) H 07/27/24 09:42 PTT Ratio 2.3 07/27/24 09:42 Heparin Anti-Xa, Unfract 0.46 IU/ml (0.3-0.7) 07/28/24 06:41 Sodium 138 mmol/L (136-145) 07/29/24 06:22 Potassium 3.9 mmol/L (3.5-5.1) 07/29/24 06:22 Chloride 109 mmol/L (98-107) H 07/29/24 06:22 Carbon Dioxide 23 mmol/L (21-32) 07/29/24 06:22 Anion Gap 6 (3-11) 07/29/24 06:22 BUN 18 mg/dl (6-23) 07/29/24 06:22 Creatinine 0.88 mg/dl (0.6-1.4) 07/29/24 06:22 Est Cr Clr Drug Dosing 82.1 ml/min 07/29/24 06:22 eGFR 97.22 07/29/24 06:22 BUN/Creatinine Ratio 20.5 (10-20) H 07/29/24 06:22 Glucose 188 mg/dl (70-99(Fasting)) H 07/29/24 06:22 POC Glucose 291 mg/dl (70-99) H 07/29/24 11:29 Estimat Average Glucose 266 mg/dl 07/25/24 05:33 Hemoglobin A1c 10.9 % (4.5-5.6) H 07/25/24 05:33 Lactate 1.1 mmol/L (0.4-2.0) 07/25/24 05:33 Calcium 8.4 mg/dl (8.6-10.3) L 07/29/24 06:22 Magnesium 1.8 mg/dl (1.7-2.4) 07/25/24 05:33 Total Bilirubin 0.3 mg/dl (0.2-1.0) 07/26/24 04:18 Direct Bilirubin 0.1 mg/dl (0-0.2) 07/26/24 04:18 AST 36 U/L (13-39) 07/26/24 04:18 ALT 16 U/L (7-52) 07/26/24 04:18 Alkaline Phosphatase 70 U/L (34-104) 07/26/24 04:18 Troponin I High Sens 28.8 pg/ml (0-20) H 07/26/24 07:44 C-Reactive Protein 6.72 mg/dl (0-0.5) H 07/24/24 15:28 Total Protein 5.7 gm/dl (6.0-8.3) L 07/26/24 04:18 Albumin 3.1 gm/dl (3.4-5.0) L 07/26/24 04:18 Globulin 3.0 gm/dl (2.5-4.0) 07/25/24 05:33 Albumin/Globulin Ratio 1.0 (0.9-2) 07/25/24 05:33 Procalcitonin 0.94 ng/ml (0-0.5) H 07/24/24 13:14 Urine Color Yellow 07/24/24 13:15 Urine Appearance Clear (Clear) 07/24/24 13:15 Urine pH 6.0 (4.5-7.5) 07/24/24 13:15 Ur Specific Franklin 1.023 (1.000-1.030) 07/24/24 13:15 Urine Protein 3+ (Negative) H 07/24/24 13:15 Urine Glucose (UA) 3+ (Negative) H 07/24/24 13:15 Urine Ketones 1+ (Negative) H 07/24/24 13:15 Urine Blood 2+ (Negative) H 07/24/24 13:15 Urine Nitrite Negative (Negative) 07/24/24 13:15 Urine Bilirubin Negative (Negative) 07/24/24 13:15 Urine Urobilinogen Negative (Negative) 07/24/24 13:15 Ur Leukocyte Esterase Negative (Negative) 07/24/24 13:15 Urine WBC (Auto) 0-5 /hpf (0-5) 07/24/24 13:15 Urine RBC (Auto) 0-2 /hpf (0-2) 07/24/24 13:15 U Hyaline Cast (Auto) 0-2 /lpf (0-2) 07/24/24 13:15 U Epithel Cells (Auto) 0-2 /hpf (0-2) 07/24/24 13:15 Urine Bacteria (Auto) None Seen (None Seen) 07/24/24 13:15 Nasal Screen MRSA (PCR) Negative (Negative) 07/24/24 22:50 Adenovirus (PCR) Not Detected (NotDetected) 07/24/24 13:15 B. pertussis DNA (PCR) Not Detected (NotDetected) 07/24/24 13:15 B.parapertussis DNA PCR Not Detected (NotDetected) 07/24/24 13:15 C. pneumoniae DNA (PCR) Not Detected (NotDetected) 07/24/24 13:15 Coronavirus OC43 (PCR) Not Detected (NotDetected) 07/24/24 13:15 Coronavirus HKU1 (PCR) Not Detected (NotDetected) 07/24/24 13:15 Coronavirus 229E (PCR) Not Detected (NotDetected) 07/24/24 13:15 SARS-CoV-2 (PCR) Not Detected (NotDetected) 07/24/24 13:15 Coronavirus NL63 (PCR) Not Detected (NotDetected) 07/24/24 13:15 Human Metapneumovir PCR Not Detected (NotDetected) 07/24/24 13:15 Influenza A (H3) PCR DETECTED (NotDetected) A 07/24/24 13:15 Influenza Type B (PCR) Not Detected (NotDetected) 07/24/24 13:15 M. pneumoniae (PCR) Not Detected (NotDetected) 07/24/24 13:15 Parainfluenza 1 (PCR) Not Detected (NotDetected) 07/24/24 13:15 Parainfluenza 2 (PCR) Not Detected (NotDetected) 07/24/24 13:15 Parainfluenza 3 (PCR) Not Detected (NotDetected) 07/24/24 13:15 Parainfluenza 4 (PCR) Not Detected (NotDetected) 07/24/24 13:15 RSV (PCR) Not Detected (NotDetected) 07/24/24 13:15 Entero/Rhino (PCR) Not Detected (NotDetected) 07/24/24 13:15 Blood Type O Positive 07/27/24 09:42 Antibody Screen NEGATIVE 07/27/24 09:42 Impressions Chest X-Ray 07/24/24 12:51 XR chest 1V portable HISTORY: 64 years-old Male Sepsis COMPARISON: 05/07/2024 TECHNIQUE: AP view the chest FINDINGS: Cardiac silhouette is enlarged. Median sternotomy. No pneumothorax. Patchy bibasilar airspace opacities with chronic interstitial coarsening. Bones appear grossly intact. IMPRESSION: 1. Cardiomegaly without pulmonary edema. 2. Patchy bibasilar opacities are likely infectious or inflammatory. ACT 112: Negative or not required by law. The above report was generated using voice recognition software. It may contain grammatical, syntax or spelling errors. Electronically signed by: Reece Catalan M.D. 07/24/2024 1:[address] 07/24/24 12:58 CT foot LT wo con HISTORY: 64 years-old Male poss osteo chronic pain of the left foot. Clinical concern for osteomyelitis COMPARISON: Ankle radiographs July 09, 2024 TECHNIQUE: Multiple axial CT images of the left foot were obtained without IV contrast. A dose lowering technique was used consistent with the principals of DONNIE. FINDINGS: Benign-appearing calcaneal bone island measuring up to 1.3 cm. Small calcaneal enthesophyte. Mild osteoarthritis of the foot and ankle. No acute fracture, dislocation or osseous erosion. Midfoot alignment is anatomic. Subcutaneous edema of the heel pad. Soft tissue thickening of the mid to distal Achilles tendon suggestive of probable tendinosis. No fluid collections or suspicious mass lesions of the soft tissues. Arterial calcifications. Tendons and ligaments are not well evaluated by CT technique. Probable peroneal tendinosis. IMPRESSION: 1. Mild subcutaneous edema of the foot and ankle. No fluid collections. 2. No acute osseous abnormality, notably no CT evidence of acute osteomyelitis. ACT 112: Negative or not required by law. The above report was generated using voice recognition software. It may contain grammatical, syntax or spelling errors. Electronically signed by: Reece Catalan M.D. 07/24/2024 2:45 PM Ankle MRI 07/24/24 16:38 Exam(s): MRI LEFT ANKLE Without Contrast EXAM: MR Left Lower Extremity Without Intravenous Contrast, Ankle CLINICAL HISTORY: Reason for exam: l heel wound. TECHNIQUE: Multiplanar magnetic resonance images of the left ankle without intravenous contrast. COMPARISON: X-rays dated 07/09/2024. FINDINGS: There is some mild soft tissue edema and swelling. No discrete fluid collection is noted. The visualized tendinous and muscular structures are unremarkable. Bony structures are intact. No evidence of acute fracture or dislocation. No gross bony destruction is seen. There is some slight bone marrow edema noted in the inferior posterior aspect of the calcaneus. IMPRESSION: There is some mild soft tissue edema and swelling. There is some slight bone marrow edema noted in the inferior posterior aspect of the calcaneus. It is of uncertain etiology. It may represent some mild bone bruising.. It is not typical for acute osteomyelitis. Electronically signed by: Tejas Reese MD 07/25/24 00:28 AM Duplex Scan Lower Extremity Artery 07/25/24 11:47 US arterial duplex LE LT HISTORY: 64 years-old Male concern for cold left foot COMPARISON: None TECHNIQUE: Lower extremity arterial Doppler with segmental pressures FINDINGS: Left-sided REJI of 0.34, right-sided REJI of 0.68 Extensive atherosclerosis. No arterial occlusion identified. Monophasic waveforms noted throughout with diminished waveforms. Spectral broadening noted within the lower leg arteries. Peak systolic velocities measure only up to 27 cm/s within the profunda femoris artery and measure up to 22 cm/s within the superficial femoral artery. IMPRESSION: 1. No acute arterial occlusion identified. 2. Diminished ABIs, left greater than right. 3. Extensive atherosclerosis with monophasic waveforms demonstrating diminished flow. ACT 112: Negative or not required by law. The above report was generated using voice recognition software. It may contain grammatical, syntax or spelling errors. Electronically signed by: Reece Catalan M.D. 07/25/2024 3:35 PM Aorta w/Runoff CTA 07/25/24 15:25 EXAM: CT Angiography Abdomen and Pelvis With Runoff to the Lower Extremities With Intravenous Contrast INDICATION: Vascular occlusions. TECHNIQUE: Axial computed tomographic angiography images of the abdomen, pelvis and lower extremities with intravenous contrast. Sagittal and coronal reformatted images were created and reviewed. This CT exam was performed using one or more of the following dose reduction techniques: automated exposure control, adjustment of the mA and/or kV according to patient size, and/or use of iterative reconstruction technique. MIP reconstructed images were created and reviewed. CONTRAST: 119ml of Optiray 320 was administered intravenously. COMPARISON: No relevant prior studies available. FINDINGS: VASCULATURE: Aorta: There is diffuse mild mixed plaque throughout the aorta without aneurysm or dissection. Celiac trunk and mesenteric arteries: No acute change noted. No occlusion or significant stenosis. Renal arteries: There is a small focal calcific plaque at the origin of the right renal artery. No stenosis or occlusion. Right iliac arteries: There is diffuse atherosclerotic calcification in the right iliac vessels with focal up to 75% stenosis of the right internal iliac artery series 3 image 364. Right femoral/popliteal arteries: There is focal soft plaque causing 40% stenosis of the proximal right superficial femoral artery. The right popliteal artery is occluded at the knee. Mixed plaque without significant stenosis right common femoral artery most notable distally. Popliteal artery is patent with mild distal calcification. Right calf/foot arteries: There is flow and a small right tibioperoneal trunk with distal calcific plaque. There is no flow in the peroneal and anterior tibial arteries at the level of the distal tibial shaft. No flow noted dorsal right foot. The posterior tibial artery is patent. No occlusion or significant stenosis. Left iliac arteries: The left common iliac artery is occluded and reconstitutes just proximal to the bifurcation. There is diffuse mixed plaque throughout the left external iliac artery without focal stenosis, occlusion or dissection. Left femoral/popliteal arteries: There is mixed plaque in the left common femoral artery with up to 50% stenosis. Left calf/foot arteries: No flow identified in the left anterior tibial artery at the level of the mid tibia. Mild flow noted in the peroneal artery at the level of the ankle. No flow seen dorsum of the foot. The posterior tibial artery is patent. No occlusion or significant stenosis. Lung bases: There is extensive bronchiectasis, coarse infiltrates and groundglass opacities in the visualized portion of each lung. Pleural space: There are trace layering bilateral pleural effusions. Heart: Cardiomegaly. Aortic valvular stent noted. ABDOMEN: Liver: No abnormality noted. No mass. Gallbladder and bile ducts: No abnormality noted. No calcified stones. No ductal dilation. Pancreas: No abnormality noted. No ductal dilation. No mass. Spleen: No abnormality noted. No splenomegaly. Adrenals: Bilateral adrenal thickening without measurable nodule. Kidneys and ureters: There is heterogeneous diminished enhancement of the lower right kidney and bilateral renal scarring right greater than left. There is mild bilateral foot edema. No stones. No hydronephrosis. Stomach and bowel: The colon is redundant. There is a large amount of stool in the descending and rectosigmoid colon. The colon otherwise contains prominent layering fluid. No small bowel obstruction. No thickening. PELVIS: Appendix: No findings to suggest acute appendicitis. Bladder: No abnormality noted. No mass. Reproductive: No significant abnormality noted. ABDOMEN, PELVIS and LOWER EXTREMITIES: Intraperitoneal space: No abnormality noted. No significant fluid collection. No free air. Bones/joints: Metallic hardware right foot. No acute osseous abnormality. Small bilateral knee joint effusions. Soft tissues: No abnormality noted. Lymph nodes: Bilateral hilar adenopathy present with nodes measuring up to 1.5 cm short axis dimension. IMPRESSION: 1. 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 2. There is occlusion of the right popliteal artery at the knee. 3. No flow noted in the right peroneal and anterior tibial arteries at the level of the distal tibia without flow noted dorsum of the right foot. 4. No flow identified in the left anterior tibial artery at the level of the mid tibia. No flow seen dorsum of the left foot. 5. Large amounts of formed stool in the rectosigmoid colon with mild colonic ileus. No obstruction. 6. Heterogeneous enhancement of the inferior right kidney concerning for pyelonephritis. There is scarring of the right kidney. No hydronephrosis. 7. Extensive bronchiectasis and groundglass and parenchymal infiltrates in both lungs likely reflecting acute infection superimposed on chronic small airway disease. ACT 112: Negative or not required by law. Electronically signed by Jory Chandra 07-25-2024 6:14 PM Hip/Pelvis X-Ray 07/27/24 09:21 EXAM: Radiographs of the Left Hip 3 Views INDICATION: Nontraumatic pain. TECHNIQUE: Front view pelvis and AP and frog leg lateral views of the left hip. COMPARISON: No relevant prior studies available. FINDINGS: Limitations: None. Bones/joints: Pelvis is tilted and rotated to the left. There is no fracture or erosion. Maintained acetabular joint space. There is mild greater trochanteric spurring. Soft tissues: No abnormality noted. No radiopaque foreign body noted. IMPRESSION: 1. No acute abnormality of the left hip. 2. The pelvis is rotated and tilted to the left likely related to spasm and/or position. ACT 112: Negative or not required by law. Electronically signed by Jory Chandra 07-27-2024 10:41 AM (4) Pneumonia Laterality: bilateral Lung location: lower lobe of lung Pneumonia type: due to unspecified organism Qualified Code(s): J18.9 - Pneumonia, unspecified organism (6) GERD (gastroesophageal reflux disease) Esophagitis presence: with esophagitis Esophagitis bleeding: without hemorrhage Qualified Code(s): K21.00 - Gastro-esophageal reflux disease with esophagitis, without bleeding (7) Barretts esophagus Montalvo's esophagus type: with low grade dysplasia Qualified Code(s): K22.710 - Montalvo's esophagus with low grade dysplasia (8) Diabetes mellitus, type 2 Diabetes mellitus bargeman insulin use: with bargeman use Diabetes mellitus complication status: with circulatory complication Diabetes mellitus complication detail: with peripheral angiopathy without gangrene Qualified Code(s): E11.51 - Type 2 diabetes mellitus with diabetic peripheral angiopathy without gangrene; 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
[2024-07-29] MEDS ORDERED: 4.5GM EXT INFUSION IV SCH (14:00)
[2024-07-29] MEDS: AMOXICILLIN/CLAVULANATE 500 MG TAB PO SCH (16:59)
[2024-07-29] MEDS: HEPARIN SOD (PORCINE) 1000 UNIT/ML ONE (19:30)
[2024-07-29] MEDS: fentaNYL citrate PF 100 MCG/2 ML VIAL ONE (19:31)
[2024-07-29] MEDS: CARBOHYDRATES FOR HYPOGLYCEMIA PO PRN (20:41)
[2024-07-29] MEDS: PREGABALIN 75 MG CAP PO SCH (20:53)
[2024-07-29] MEDS: DOXYCYCLINE HYCLATE 100 MG CAP PO SCH (20:53)
--- NOTE | 2024-07-30 08:32 | Pharmacy Report ---
Pharmacy Glycemic Short Note 2 - Date of Service July 30, 2024 - Glycemic Short BSG Results (Last 24 hours): 07/29/24 07/29/24 07/29/24 11:29 16:24 20:32 POC Glucose 291 H 131 H 71 07/29/24 07/30/24 20:57 07:26 POC Glucose 88 178 H OUTPATIENT ANTIDIABETIC REGIMEN: * Novolin 70/30 33 units SQ BID * HbA1c 10.9 (07/25/24), 13.8 (05/29/24) ASSESSMENT: 07/30/24: * Blood sugars trended down significantly throughout the day yesterday following high of 291 mg/dL at lunchtime * Fasting blood sugar improving - will plan to continue with current basal * Given blood sugar trend yesterday, will keep more aggressive parameters in morning and loosen at lunchtime * Blood sugar pre-lunch obtained at 1041 and resulted as 411. Unlikely to reflect true pre-prandial lunch blood sugar. Loosened correction factor to 50 for lunch to avoid overcorrection and will make changes ongoing. 07/28/24: * Patient with episode of hypoglycemia yesterday at dinnertime (56 mg/dL) * NPO after midnight for left lower extremity angiogram w/ stenting * Fasting blood sugar elevated this morning, but will decrease basal and loosen Novolog in response to hypoglycemia yesterday 07/25/24: * Derek is a 64 YOM admitted with foot infection and influenza A infection with a history of T2DM. Pharmacy has been consulted to assist with glycemic management while inpatient. * BSG in 500s upon admission, decision was made to treat with an IV insulin bolus yesterday afternoon, AG slightly elevated, resolved upon repeat and BSGs decreased overnight with SQ insulin. * Fasting BSG this AM slightly above goal range, decided to continue with Lantus vs insulin NPH due to previous admission were glycemic control was not optimal with NPH. * Hypoglycemic with lunch, potentially caused by stacking correction overnight, NovoLog originally started based on historic data, will loosen correction factor slightly. PLAN FOR INPATIENT GLYCEMIC CONTROL: * Basal insulin * Lantus 25 units SC daily * Bolus insulin * NovoLog per scale ACHS or Q6hrs while NPO * Goal Range: Low 110 mg/dL - 140 mg/dL at breakfast, Low 120 mg/dL - High 160 mg/dL at lunch, dinner, HS * Correction Factor: 20 mg/dL/unit at breakfast, 30 mg/dL/unit and lunch, dinner, HS * Nutritional / Prandial insulin per carb ratio of 1 unit per 6 grams CHO consumed at breakfast, 1 unit per 8 grams CHO consumed at lunch, dinner, HS
[2024-07-30] MEDS ORDERED: Heparin IV Adult Wt-Based Low-Dose *NO* INITIAL Bolus Protocol IV SCH (08:47)
[2024-07-30] MEDS ORDERED: CIPROFLOXACIN 500 MG TAB PO SCH (09:00)
[2024-07-30] MEDS: LANTUS PER UNIT CHARGE SC SCH (09:16)
[2024-07-30] MEDS: ROSUVASTATIN CALCIUM 20 MG TAB PO SCH (09:20)
[2024-07-30] MEDS: POLYETHYLENE (MIRALAX) 17 GM PACK PO PRN (09:34)
[2024-07-30 09:47] LABS: Hematocrit (blood only) 34.1 % (42.0-52.0); Hemoglobin 11.9 g/dl (14.0-18.0); Mean Corpuscular Hemoglobin 30.7 pg (25.0-34.0); Mean Corpuscular Hgb Conc 34.9 g/dL (32.0-36.0); Mean Corpuscular Volume 88.1 fL (80.0-100.0); Mean Platelet Volume 11.1 fL (9.4-12.4); Platelet Count 144 K/uL (130-400); RDW Coefficient of Variation 14.1 % (11.5-14.5); RDW Standard Deviation 44.8 fL (36.4-46.3); Red Blood Count 3.87 M/uL (4.70-6.10); White Blood Count 4.98 K/ul (4.8-10.8)
[2024-07-30 10:16] LABS: Prothrombin Time 10.8 Seconds (9.0-12.0)
[2024-07-30 10:19] LABS: BUN Creatinine Ratio 21.5 (10-20); Calcium 8.3 mg/dl (8.6-10.3); Creatinine Clr Calc Pharmacy 77.6 ml/min; Potassium 4.5 mmol/L (3.5-5.1)
[2024-07-30] MEDS: HEPARIN 25000 UNIT/500 ML 25,000 UNITS/500 ML BAG IV SCH (10:36)
--- NOTE | 2024-07-30 11:42 | Podiatry Progress Note ---
Date of Service July 30, 2024 Assessment & Plan (1) Unstageable pressure ulcer of heel: (2) Non-pressure chronic ulcer of other part of left foot with fat layer exposed: Plan Postop day 1 status post left lower extremity angiogram with stenting of the iliac artery. Left ankle wounds: - Continue once daily application of Betadine to all wounds of the left foot. Patient should continue to float left heel to avoid contact with any surface. Heel offloading boots have been ordered. - I will continue to monitor patient's progress while he remains in the hospital and recommend follow-up with the wound care center at discharge for continued close monitoring of the left heel wound. - Okay to continue weightbearing as tolerated in postop shoe. Discharge planning: Patient okay for discharge from podiatry standpoint once cleared by his medical team. Patient should continue once daily application to the wounds/gangrenous areas of the left foot following discharge. He is instructed to keep the foot clean and dry and avoid soaking or submerging left foot. Okay to weight-bear as tolerated in postop shoe. Follow-up in the wound center within 2 weeks of discharge. Admission and Anticipated Discharge Date Admission Date: July 24, 2024 Subjective Patient seen resting comfortably in hospital bed postop day 1 status post left lower extremity angiogram with stenting of the iliac artery. Seen by podiatry today to reevaluate ulcerations/gangrenous areas of the left foot. Patient reports slightly decreased pain to left lower extremity since time of intervention. No fever chills. Denies shortness of breath or chest pain. Reports that she is elevating the left lower extremity on pillows as he moves around in the bed. Review of Systems Review of Systems: Patient denies nausea, vomiting, fever, chills, shortness of breath, chest pain. Does report cough which is intermittent and pain in the right foot. Reports instability of gait. Physical Exam Physical Exam: Const: Appears well developed and well nourished. No signs of acute distress present. CV: Extremities: No cyanosis or edema. Capillary refill time is less than 3-4 seconds all digits of the bilateral foot. Posterior tibial and dorsalis pedis pulses are non-palpable bilateral. Lymph: No palpable or visible regional lymphadenopathy. Skin: Thin atrophic skin the bilateral lower extremity with areas of dry patchy and flaking skin. Neuro: Loss of protective sensation to the toes x 10. Protective sensation returns at the level of the midfoot bilateral. Psych: Mood/Affect: Mood is normal. Affect is normal. Cognition: Orientation is intact to person, place and time. Focused lower extremity musculoskeletal exam: Leg: No pain with compression of the calf muscle. Ankles: Normal to inspection and palpation. No swelling bilaterally. No tenderness bilaterally. Motor strength is intact. Range of motion pain-free and unlimited. Feet: Normal to inspection and palpation. No obvious instability. Motor strength is intact. Range of motion pain-free and unlimited. -Superficial fissure x 2 on the lateral left foot: Skin breakdown to the level with some gangrenous tissue to the base of the fissure. Erythema and edema have resolved.. No active drainage. No pain to palpation. -Unstageable pressure injury of the post erior left heel: No active drainage. Eschar overlying the wound bed is dry and stable. Mild pain to palpation. No periwound erythema or edema. No lymphangitis or streaking. Results & Data Results & Data Vital Signs (Past 12 Hours) Vital Signs Temp Pulse Pulse Resp BP Pulse Ox O2 Del Method 07/30/24 07:52 36.9 C 104 H 18 129/70 94 Room Air 07/30/24 07:00 99 H 07/30/24 03:16 36.6 C 90 16 153/73 H 94 Room Air 07/30/24 00:00 95 H Coding [place] [id number] SUB INP/OBS CARE 08/02MIN Patient Type Established History Problem Focused Exam Problem Focused Diagnoses Pressure injury of left heel, unstageable L89.620 Laterality: left Non-pressure chronic ulcer of other part of left foot with fat layer exposed L97.522 (1) Unstageable pressure ulcer of heel Laterality: left Qualified Code(s): L89.620 - Pressure ulcer of left heel, unstageable
[2024-07-30] MEDS: levoFLOXacin 500 MG TAB PO SCH (11:54)
[2024-07-30] MEDS: WARFARIN SOD 2.5 MG TAB PO SCH (15:03)
--- NOTE | 2024-07-30 15:20 | Infectious Disease Consult ---
Date of Service July 30, 2024 Telehealth Information I performed this visit using a real-time telehealth connection between my location and the patients location ([facility]). After connecting through interactive tele-video, patient was identified by name and date of and/or wristband check.Patient (or authorized healthcare residential sales representative) was informed that this was a telemedicine visit and it was being conducted confidentially over secure lines. My office door was closed and no one else was present in the room with me.Patient (or authorized healthcare residential sales representative) provided consent to proceed with the visit, expressed an understanding of privacy and security of the telemedicine visit, and gave permission to have a hospital residential sales representative in the room in order to assist with the visit and to conduct portions of the visit, as needed. I informed the patient (or authorized healthcare residential sales representative) that I reviewed their record and presented the opportunity for them to ask any questions regarding the visit today. The patient agreed to participate. Assessment & Plan (1) Diabetic ulcer of left foot: (2) Influenza A: (3) Bacterial pneumonia: (4) Aortoiliac occlusive disease: (5) Uncontrolled type 2 diabetes mellitus with hyperglycemia: Plan based on the chart pictures, the ulcer with necrotic changes looks to be secondary to ischemia rather than infection. However, to prevent any superimposed infection, I would recommend using oral Linezolid 600 mg BID and continue oral Levaquin (but at 750 mg dose) for a total of 14 days from the date of revascularization intervention. I would still recommend that podiatry or vascular reassess for potential debridement to remove the necrotic tissue, enhance healing and prevent superimposed infection. This could be a simple bed side debridement (Cx will be appreciated then). Please schedule the patient for an appointment with us to follow up on the status of his left heel ulcer and assess for any infection. Thank you for consulting Infectious Disease. We will sign off for now. History of Present Illness History of Present Illness Mr. Tristan is a 64-year-old man with medical history of uncontrolled type 2 diabetes with peripheral neuropathy, HTN, GERD, hyperlipidemia and AVR mechanical valve in 2022 who was admitted to [facility] on 07/24/2024 because of left heel pain and difficulty walking. He recently noted some pus draining from the wounds which made him concerned and prompted him to come to the emergency department. Moreover, he reported that over the last few days, he has been having some cough and congestion without any shortness of breath or chest pain. On presentation, he was afebrile but he did develop 1 episode of fever shortly after admission and has been afebrile since then. His blood pressure was within normal limits but he was tachycardic at 116 and not hypoxic. Her initial workup was mainly significant for OMARI with a elevated creatinine at 1.4 and very high blood sugar at 548. His RVP came back positive for influenza A. Chest x-ray showed cardiomegaly with patchy bibasilar opacity. An MRI of the left heel and ankle was performed on 07/24 which showed mild soft tissue edema and swelling with slight bone marrow edema in the inferior posterior aspect of the calcaneus but low concern for osteomyelitis. He was seen by Podiatry who did not recommend any surgical interventions but were concerned about peripheral vascular disease and hence the vascular team was consulted. An aorta with runoff study was performed which showed left common iliac artery occlusion with reconstitution at the bifurcation. There was also evidence of peripheral vascular disease on the right side. He eventually underwent bilateral lower extremity angiogram with bilateral iliac stenting and transluminal angioplasty on 07/28/2024. He is currently being treated for possible bacterial pneumonia on top flu pneumonia and presumed left heel wound infection. ID team was consulted for further recommendations and to help guide antibiotic treatment. Allergies Allergy/AdvReac Type Severity Reaction Status Date / Time erythromycin base Allergy Intermediate Abdominal Verified 07/28/24 11:58 Pain Home Medications Medication Instructions Recorded Confirmed Type aspirin 81 mg tablet,delayed 81 mg PO DAILY #30 tabs 06/02/24 07/24/24 Rx release cyclobenzaprine 5 mg tablet 5 mg PO TID PRN muscle spasm #30 06/02/24 07/24/24 Rx tabs insulin NPH-regular 70-30 U-100 33 unit (0.33 mL) subcut BID #15 mL 06/02/24 07/24/24 Rx insulin 100 unit/mL subcutaneous pen (Novolin 70-30 FlexPen U-100 Insulin) omeprazole 20 mg capsule,delayed 20 mg PO DAILYBB #30 caps 06/02/24 07/24/24 Rx release pen needle, diabetic 32 gauge x #50 ea 06/02/24 07/24/24 Rx 5/32" (Pen Needle) rosuvastatin 40 mg tablet 40 mg PO QAM #30 tabs 06/02/24 07/24/24 Rx warfarin 2.5 mg tablet 2.5 mg PO DAILY@1600 30 days #30 06/02/24 07/24/24 Rx tabs lisinopril 5 mg tablet (Zestril) 5 mg PO QAM #30 tabs 06/06/24 07/24/24 Rx gabapentin 300 mg capsule 300 mg PO TID #90 caps 07/08/24 07/24/24 Rx clopidogrel 75 mg tablet 75 mg PO QAM #30 tabs 07/29/24 Rx pregabalin 75 mg capsule (Lyrica) 75 mg PO TID 30 days #90 caps 07/29/24 Rx Patient History Medical History GERD (gastroesophageal reflux disease) ILD (interstitial lung disease) H/O TIA (transient ischemic attack) and stroke Stroke-like episode - History of TIA vs vertigo per cardio records 11/2021 (on Plavix) - 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 Repeat head CTA 08/2022 was unremarkable and no left ICA aneurysm identified Hypertension Hyperlipidemia PFO (patent foramen ovale) Small per 11/2021 [facility] imaging per cardio records Barretts esophagus Per records Gallbladder sludge reason for upcoming procedure Arthritis, gouty Hx of kidney disease PER PATIENT, ACUTE KIDNEY DISEASE 05/2022>WNL CURRENTLY GERD (gastroesophageal reflux disease) "silent/mild" Diabetes mellitus, type 2 Hx of pancreatitis HOSPITALIZED 05/2022>DKA and acute pancreatitis Aortic valve stenosis Severe per 05/2022 ECHO (PK 0.78-1.0cm2; AV mean PG 23.2mmHg; AV max velocity 3.684m/s) Chronic obstructive pulmonary disease MILD>NO INHALERS PER PATIENT Surgical History H/O mechanical aortic valve replacement Nausea and vomiting after administration of anesthetic agent H/O arthroscopic knee surgery + GANGLION CYST REMOVED>RT History of esophagogastroduodenoscopy (EGD) History of colonoscopy History of tooth extraction History of tonsillectomy and adenoidectomy History of cataract surgery RT/LEFT History of foot surgery RT History of carpal tunnel surgery LEFT Family History Other Diabetes Heart disease No family history of adverse response to anesthesia Social History Smoking Status: Current every day smoker Tobacco Type: Cigarettes Cigarettes Per Day: 4 CIG DAILY>ADVISED; Second Hand Exposure: No; Do You Dip or Chew Tobacco: No; Hx Alcohol Use: Yes Alcohol type: beer Hx Substance Use: No Preferred Language: Samoan Communication Ability: Effective Lamp Shades Supervisor Required: No Beliefs That Will Affect Care: None marital status: Unknown Current Living Situation: Other Current Living Situation Comment: son Other Information That Helps Us Care for You: No Feels Safe at Home: Yes Safety Concerns: Feels Safe At This Time Assistive Devices: Walker Review of Systems Neg except for what was mentioned in H&P. Physical Exam Couldnt be obtained as the visit was conducted via telemed. Results & Data Vital Signs (Past 12 Hours) Vital Signs Temp Pulse Pulse Resp BP Pulse Ox O2 Del Method 07/30/24 12:11 36.7 C 96 H 18 131/66 92 Room Air 07/30/24 07:52 36.9 C 104 H 18 129/70 94 Room Air 07/30/24 07:00 99 H 07/30/24 03:16 36.6 C 90 16 153/73 H 94 Room Air Laboratory Results Microbiology: 07/24: 2 sets of blood culture negative to date Diagnostic Findings Ankle MRI performed on 07/24/2024: There is some mild soft tissue edema and swelling. There is some slight bone marrow edema noted in the inferior posterior aspect of the calcaneus. It is of uncertain etiology. It may represent some mild bone bruising.. It is not typical for acute osteomyelitis.
--- NOTE | 2024-07-30 15:22 | Hospitalist Progress Note ---
Date of Service July 30, 2024 Assessment & Plan (1) Diabetic ulcer of left foot: Plan 64-year-old male with PMH of uncontrolled T2DM, HTN, GERD, HLD, recent AVRmechanical valve 2022 on Coumadin presents to the ED on 07/24/2024 with complaint of pain in his left heel and difficulty walking. Patient noted discharge of blood and pus coming from the heel of his foot prior to arrival. He also complained of dry cough at presentation. He is being managed for the following: Unstageable pressure ulcer of left heel, ? infected Patient presented with left heel pain, difficulty walking, blood and pus coming from the heel of his foot. See above. CT left foot with no fluid collection and no concern for osteomyelitis. Mild subcutaneous edema of the foot and ankle noted. MRI left ankle with some mild soft tissue edema and swelling. BLE arterial Doppler and aorta with runoff CTA findings reviewed. status post LLE angiogram, bilateral iliac percutaneous transluminal angioplasty and stenting 07/28/2024. Discussed with ID 07/30: Linezolid 600 mg twice daily and Levaquin 750 Mg daily for total of 14 days from the date of revascularization intervention. Continue to follow-up with podiatry for reassessment for potential debridement to remove the necrotic tissue/enhance healing and prevent superimposed infection. Follow-up with infectious disease in 1 to 2 weeks time upon discharge. PT/OT, likely need placement. Concern for CAP Influenza A URTI Sepsis likely secondary to viral URTI Acute hypoxic respiratory failure in the setting of above Patient currently on room air, reports improving cough, antibiotic as above. Continue to follow clinically. Other chronic medical conditions: Continue with/resume home medicine as when able. ERD, continue Protonix Montalvo's esophagus, continue Protonix T2DM, uncontrolled: Glycemic pharmacy, clinical staff educator, patient will need close follow-up with diabetic clinic as an outpatient. Mechanical aortic valve replacement: Heparin drip, warfarin resumed 07/30. Goal PT/INR of 2.5-3.5. DNR/DNI PT/OT, likely will need rehab. Admission and Anticipated Discharge Date Admission Date: July 24, 2024 Subjective Patient was seen and examined at bedside. Patient was lying in bed, on room air, NAD, resting comfortably. Of note, patient is a status post LLE angiogram, bilateral iliac percutaneous transluminal angioplasty and stenting 07/28/2024. Patient reports eating okay, last bowel movement 3 days ago, continue with bowel regimen, denies abdominal pain, is moving gas. Patient reports significant improvement in his LLE pain. Physical Exam Physical Exam: Gen: A&O 3 NAD HEENT: NCAT, EOMI, not icteric. External ears normal. No rhinorrhea. Moist mucous membranes. Neck: Supple, full range of motion, no observable masses, No meningeal sign. Lungs: No Respiratory distress. CV: trace rhonchi in bilateral lower lobes Abdomen: Soft, nondistended, No rebound tenderness. MSK: left foot w/ unstageable pressure injury to left heel, minimal to erythema - no streaking, some warmth, minimal tender on exam. Skin: No rashes, petechiae, lesions. Normal color per patient. Neuro: Normal Gait, Grossly intact. Psych: Appropriate for situation. Results & Data Results & Data Vital Signs (Past 12 Hours) Vital Signs Temp Pulse Pulse Resp BP Pulse Ox O2 Del Method 07/30/24 12:11 36.7 C 96 H 18 131/66 92 Room Air 07/30/24 07:52 36.9 C 104 H 18 129/70 94 Room Air 07/30/24 07:00 99 H 07/30/24 03:16 36.6 C 90 16 153/73 H 94 Room Air
[2024-07-30] MEDS: levoFLOXacin 250 MG TABLET PO ONE (16:15)
[2024-07-30] MEDS: INSULIN ASPART PER UNIT CHARGE SC SCH (17:09)
[2024-07-30 17:35] LABS: ANTI-Xa, UFH(UnfractionatedHep 0.12 IU/ml (0.3-0.7)
[2024-07-30] MEDS: HEPARIN SOD (PORCINE) 1000 UNIT/ML IV ONE (18:22)
[2024-07-30] MEDS: LINEZOLID 600 MG TAB PO SCH (20:28)
[2024-07-31 00:40] LABS: ANTI-Xa, UFH(UnfractionatedHep 0.17 IU/ml (0.3-0.7)
[2024-07-31] MEDS: HEPARIN SOD (PORCINE) 1000 UNIT/ML IV ONE (01:28)
[2024-07-31 07:19] VITALS: TEMP 98.2
[2024-07-31] MEDS: INSULIN ASPART PER UNIT CHARGE SC SCH (08:23)
[2024-07-31] MEDS ORDERED: LANTUS PER UNIT CHARGE SC SCH ×2 (09:00→21:00)
[2024-07-31 09:28] LABS: Hematocrit (blood only) 33.6 % (42.0-52.0); Hemoglobin 11.2 g/dl (14.0-18.0); Mean Corpuscular Hemoglobin 30.3 pg (25.0-34.0); Mean Corpuscular Hgb Conc 33.3 g/dL (32.0-36.0); Mean Corpuscular Volume 90.8 fL (80.0-100.0); Mean Platelet Volume 11.1 fL (9.4-12.4); Platelet Count 177 K/uL (130-400); RDW Coefficient of Variation 14.2 % (11.5-14.5); RDW Standard Deviation 46.9 fL (36.4-46.3); White Blood Count 4.32 K/ul (4.8-10.8)
[2024-07-31 09:31] LABS: Calcium 8.6 mg/dl (8.6-10.3); Creatinine Clr Calc Pharmacy 60.8 ml/min; Magnesium 1.8 mg/dl (1.7-2.4); Phosphorus 2.6 mg/dl (2.5-4.9); Potassium 5.1 mmol/L (3.5-5.1)
[2024-07-31 09:40] LABS: Prothrombin Time 11.3 Seconds (9.0-12.0)
[2024-07-31] MEDS: levoFLOXacin 750 MG TAB PO SCH (12:53)
--- NOTE | 2024-07-31 13:57 | Pharmacy Report ---
Pharmacy Glycemic Short Note 2 - Date of Service July 31, 2024 - Glycemic Short BSG Results (Last 24 hours): 07/30/24 07/30/24 07/31/24 16:18 20:28 07:20 Glucose POC Glucose 125 H 144 H 226 H 07/31/24 07/31/24 08:54 11:06 Glucose 293 H POC Glucose 170 H OUTPATIENT ANTIDIABETIC REGIMEN: * Novolin 70/30 33 units SQ BID * HbA1c 10.9 (07/25/24), 13.8 (05/29/24) ASSESSMENT: 07/31/24: * BSGs trended down yesterday. Patient received total 55 units of insulin: 25 unit basal and 30 units bolus. * Fasting BSG today was 226 mg/dl. Since fasting BSG is elevated, added low dose basal scale for HS. * Breakfast correction factor tightened further. 07/30/24: * Blood sugars trended down significantly throughout the day yesterday following high of 291 mg/dL at lunchtime * Fasting blood sugar improving - will plan to continue with current basal * Given blood sugar trend yesterday, will keep more aggressive parameters in morning and loosen at lunchtime * Blood sugar pre-lunch obtained at 1041 and resulted as 411. Unlikely to reflect true pre-prandial lunch blood sugar. Loosened correction factor to 50 for lunch to avoid overcorrection and will make changes ongoing. 07/28/24: * Patient with episode of hypoglycemia yesterday at dinnertime (56 mg/dL) * NPO after midnight for left lower extremity angiogram w/ stenting * Fasting blood sugar elevated this morning, but will decrease basal and loosen Novolog in response to hypoglycemia yesterday 07/25/24: * Derek is a 64 YOM admitted with foot infection and influenza A infection with a history of T2DM. Pharmacy has been consulted to assist with glycemic management while inpatient. * BSG in 500s upon admission, decision was made to treat with an IV insulin bolus yesterday afternoon, AG slightly elevated, resolved upon repeat and BSGs decreased overnight with SQ insulin. * Fasting BSG this AM slightly above goal range, decided to continue with Lantus vs insulin NPH due to previous admission were glycemic control was not optimal with NPH. * Hypoglycemic with lunch, potentially caused by stacking correction overnight, NovoLog originally started based on historic data, will loosen correction factor slightly. PLAN FOR INPATIENT GLYCEMIC CONTROL: * Basal insulin * Lantus 25 units SC QAM * Lantus 0-5 units (based on BSG) SC HS * Bolus insulin * NovoLog per scale ACHS or Q6hrs while NPO * Goal Range: Low 110 mg/dL - 140 mg/dL at breakfast, Low 120 mg/dL - High 160 mg/dL at lunch, dinner, HS * Correction Factor: 15 mg/dL/unit at breakfast, 30 mg/dL/unit and lunch, dinner, HS * Nutritional / Prandial insulin per carb ratio of 1 unit per 6 grams CHO consumed at breakfast, 1 unit per 8 grams CHO consumed at lunch, dinner, HS
--- NOTE | 2024-07-31 14:35 | Discharge Summary ---
Date of Service July 31, 2024 Admission HPI Per Admitting Provider The patient is a 64-year-old male with a past medical history of uncontrolled type 2 diabetes, HTN, GERD, HLD, recent AVRmechanical valve 2022 on Coumadin who presents to the ED today on 07/24/2024 with complaints of pain in his left heel and difficulty walking. Patient reports when he took his sock off the other day, he noted discharge blood and pus coming from the heel of his foot. He also reports some intermittent shortness of breath and cough over the past few days. Noted that his son is sick. He reports a dry cough and denies bringing up any phlegm. Admits to being a current smoker, quarter pack per day. Also reports he recently lost his job about a month ago. He was admitted recently with left hip pain about 2 months ago and seen by Ortho at this time. He denies any fever/chills/nausea/vomiting/diarrhea/abdominal pain. He reports being compliant with his home medications. He is unsure of the last time he had his INR checked. Reports taking his insulin as prescribed at home. Left foot CT showed mild subcutaneous edema, no fluid collections, no evidence of osteomyelitis Chest x-ray showed cardiomegaly, patchy bibasilar opacities inflammatory versus infectious On arrival to the ED, labs remarkable for NA 134, chloride 96, anion gap 13, creatinine 1.43, glucose 548, lactate 3.7, procalcitonin 0.94 UA positive for ketones, blood, and glucose, blood cultures pending Respiratory panel positive for flu A Patient received IV Zosyn/IV fluids/IV insulin in ED and will be admitted for management of hyperglycemia and pneumonia Admission Exam Per Admitting Provider Constitutional: WD/WN, vitals as above Eyes: PERRL, conjunctivae normal, anicteric sclerae ENMT: external ear and nose normal, oropharynx normal Neck: trachea midline, no thyromegaly Respiratory: normal respiratory effort, lungs clear to auscultation (Rhonchi right lung) Cardiovascular: RRR, no murmur, no edema Gastrointestinal (Abdomen): normal bowel sounds, soft, nontender, no hepatosplenomegaly Musculoskeletal: no cyanosis or clubbing, extremities motor strength 5/5 Skin: no rashes, warm and dry (Left heel wound bloody/scabbed over, very dry/flaky skin) Neurologic: PERRL, EOMI, accommodation nl, no face palsy, no dysarthria Psychiatric: A+Ox3, euthymic affect Genitourinary: no testicular masses, no penis abnormality Lymphatic: no cervical or axillary lymphadenopathy Principal Diagnosis Unstageable pressure ulcer of left heel, ? infected LLE ischemia Concern for CAP Influenza A URTI Sepsis likely secondary to viral URTI Acute hypoxic respiratory failure Discharge Exam Gen: A&O 3 NAD HEENT: NCAT, EOMI, not icteric. External ears normal. No rhinorrhea. Moist mucous membranes. Neck: Supple, full range of motion, no observable masses, No meningeal sign. Lungs: No Respiratory distress. CV: trace rhonchi in bilateral lower lobes Abdomen: Soft, nondistended, No rebound tenderness. MSK: left foot w/ unstageable pressure injury to left heel, no erythema - no streaking, no warmth, non tender on exam. Skin: No rashes, petechiae, lesions. Normal color per patient. Neuro: Normal Gait, Grossly intact. Psych: Appropriate for situation. Discharge Data Allergies Allergy/AdvReac Type Severity Reaction Status Date / Time erythromycin base Allergy Intermediate Abdominal Verified 07/28/24 11:58 Pain Consultations 07/24/24 16:10 Consult Podiatry Routine 07/25/24 11:47 Consult Vascular Surgery Routine 07/29/24 10:09 Consult Infectious Diseases Routine Procedures Performed Operation Date: 07/28/24 09:10 Actual Procedures p Left Lower Extremity Angiogram,Bilateral Iliac Percutuaneous Transluminal Angioplasty and Stenting,Ultrasound Localization of Bilateral Femoral Arteries,Mechancial Closure of Bilateral Femoral Arteries,Moderate Sedation [id number](Bilateral) - Delvis Busch MD Ordered Studies 07/24/24 12:58 CT foot LT wo con Stat 07/24/24 16:38 MR ankle LT wo con Routine 07/25/24 11:47 US arterial duplex LE LT Stat 07/25/24 15:25 CTA abd aorta runof w con [CT ang AA runof w inc wo ifdon] Routine 07/28/24 12:24 EV angio LE LT Routine US EV guide vascular access Routine Diabetes Follow up Diabetes Follow-up Needed for HgbA1c >9% Hospital Course (1) Diabetic ulcer of left foot: Plan 64-year-old male with PMH of uncontrolled T2DM, HTN, GERD, HLD, recent AVRmechanical valve 2022 on Coumadin presents to the ED on 07/24/2024 with complaint of pain in his left heel and difficulty walking. Patient noted discharge of blood and pus coming from the heel of his foot prior to arrival. He also complained of dry cough at presentation. He was managed for the following: Unstageable pressure ulcer of left heel, ? infected Patient presented with left heel pain, difficulty walking, blood and pus coming from the heel of his foot. See above. CT left foot with no fluid collection and no concern for osteomyelitis. Mild subcutaneous edema of the foot and ankle noted. MRI left ankle with some mild soft tissue edema and swelling. BLE arterial Doppler and aorta with runoff CTA findings reviewed. status post LLE angiogram, bilateral iliac percutaneous transluminal angioplasty and stenting 07/28/2024. Discussed with ID 07/30: Linezolid 600 mg twice daily and Levaquin 750 Mg daily for total of 14 days from the date of revascularization intervention. Continue to follow-up with podiatry for reassessment for potential debridement to remove the necrotic tissue/enhance healing and prevent superimposed infection. Follow-up with infectious disease in 1 to 2 weeks time upon discharge. Follow-up with vascular surgery in 2 to 3 months upon discharge. PT/OT, likely need placement. Concern for CAP Influenza A URTI Sepsis likely secondary to viral URTI Acute hypoxic respiratory failure in the setting of above Patient currently on room air, reports improving cough, antibiotic as above. Continue to follow clinically. Other chronic medical conditions: Continue with/resume home medicine as when able. 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 Mechanical aortic valve replacement: Heparin drip, warfarin resumed 07/30. Goal PT/INR of 2.5-3.5. 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 DNR/DNI Patient is being discharged [facility] with following instructions at the point of discharge: Follow-up with your primary care physician within a week time and likely you will need labs CBC/CMP/magnesium/phosphorus. Continue with physical therapy, you can weight-bear as tolerated in postop shoe. Follow-up with wound center within 2 weeks of discharge. Follow-up with podiatry in 1 to 2 weeks time upon discharge. Follow-up with infectious disease in 1 to 2 weeks time upon discharge. You are being discharged on linezolid and Levaquin to complete 14 days therapy for possible infection of your left heel wound, you will need weekly CMP and CBC while on antibiotic, coordinate with your PCP office to set up the tests. Follow-up with vascular surgery in 2 to 3 months time upon discharge. You will be discharged on Lovenox subcu for few days and your home dose of warfarin, once your reach therapeutic warfarin level your Lovenox subcu needs to be stopped. Coordinate with your medical provider at rehab facility for daily monitoring of your PT/INR while on Lovenox subcu. You will receive Lovenox SQ evening dose on 07/31/2024 prior to discharge. Subcu Lovenox dose from 08/01/2024 morning at rehab facility. Continue to follow-up with diabetic clinic closely for ongoing titration of your diabetic medication. Follow-up with diabetic clinic in a week time upon discharge. Take your medications as prescribed. Please make sure that you are able to get your medications today by calling your pharmacy before you leave the hospital so that your treatment continuity is not broken. Home Health Attestation I certify that this patient is under my care and that I, or a physicians support assistant working with me, had a face to-face encounter that meets the home health [id number] encounter requirements with this patient. The encounter with the patient was in whole, or in part, for the following medical condition, which is the primary reason for home health care (list medical condition): I certify that, based on my findings, the following services are medically necessary home health services: My clinical findings support the need for the above services because: Further, I certify that my clinical findings support that this patient is homebound (i.e. absences from home require considerable and taxing effort and are for medical reasons or anabaptist services or infrequently or of short duration when for other reasons) because: Certification for Home Health Services: Based on the above findings, I certify that this patient is confined to the home and needs intermittent usp care, physical therapy and/or speech therapy or continues to need occupational therapy. The patient is under my care, and I have initiated the establishment of the plan of care. This patient will be followed by a physician who will periodically review the plan of care. Total Time Total Time Spent Total Time Spent (In Minutes): 35 Discharge Plan Discharge Items Patient Disposition: Transfer Inpatient Rehab Fac Reason For Visit: FLU A, PNA, L FOOT PAIN Discharge Diagnosis: Unstageable pressure ulcer of left heel, ? infected LLE ischemia Concern for CAP Influenza A URTI Sepsis likely secondary to viral URTI Acute hypoxic respiratory failure Condition on Discharge: Good Activity: Resume your previous activity Lifting: Gradually increase as tolerated Weightbearing: Full weightbearing Non-emergency contact: Primary Care Provider and Surgeon Call non-emergency contact if: you have any medication questions Follow-up/Referrals: Anabel Ortiz MD [Primary Care Provider] - ( ) Wound Care,Nurse [Registered Nurse] - (08/07/24 at 8:00 am [facility] [address] [facility] [address] ) Diet: Regular Addtl Attending Provider Instructions: Follow-up with your primary care physician within a week time and likely you will need labs CBC/CMP/magnesium/phosphorus. Continue with physical therapy, you can weight-bear as tolerated in postop shoe. Follow-up with wound center within 2 weeks of discharge. Follow-up with podiatry in 1 to 2 weeks time upon discharge. Follow-up with infectious disease in 1 to 2 weeks time upon discharge. You are being discharged on linezolid and Levaquin to complete 14 days therapy for possible infection of your left heel wound, you will need weekly CMP and CBC while on antibiotic, coordinate with your PCP office to set up the tests. Follow-up with vascular surgery in 2 to 3 months time upon discharge. You will be discharged on Lovenox subcu for few days and your home dose of warfarin, once your reach therapeutic warfarin level your Lovenox subcu needs to be stopped. Coordinate with your medical provider at rehab facility for daily monitoring of your PT/INR while on Lovenox subcu. You will receive Lovenox SQ evening dose on 07/31/2024 prior to discharge. Subcu Lovenox dose from 08/01/2024 morning at rehab facility. Continue to follow-up with diabetic clinic closely for ongoing titration of your diabetic medication. Follow-up with diabetic clinic in a week time upon discharge. Take your medications as prescribed. Please make sure that you are able to get your medications today by calling your pharmacy before you leave the hospital so that your treatment continuity is not broken. Pending Studies at Discharge: No Stand-Alone Forms: My [facility] Skilled Items Patient informed of condition?: Yes DNR: Yes Discharge Level of Care: Skilled Communicable Disease: No Discharge Prognosis: Improving Lines: None Urinary Catheter: No Medications and DC Order Prescriptions: New clopidogrel 75 mg Tablet 75 mg PO QAM Qty: 30 0RF pregabalin [Lyrica] 75 mg Capsule 75 mg PO TID 30 Days Qty: 90 0RF levofloxacin 750 mg Tablet 750 mg PO DAILY@1100 11 Days Qty: 11 0RF linezolid 600 mg Tablet 600 mg PO BID 12 Days Qty: 24 0RF enoxaparin [Lovenox] 60 mg/0.6 mL syringe 70 mg subcut BID 3 Days Qty: 4.2 0RF Probiotic 3 billion cell capsule 3,000 mmu cells PO DAILY 14 Days Qty: 14 0RF Rx Instructions: administer with a meal Continued gabapentin 300 mg capsule 300 mg PO TID Qty: 90 2RF (DME) pen needle, diabetic [Pen Needle] 32 gauge x 5/32" needle See Rx Instructions .Route Qty: 50 3RF Rx Instructions: Please check blood sugar before meals and at bedtime warfarin 2.5 mg tablet 2.5 mg PO DAILY@1600 30 Days Qty: 30 0RF Rx Instructions: 2.5 mg orally; aspirin 81 mg Tablet,Delayed Release (Dr/Ec) 81 mg PO DAILY Qty: 30 0RF omeprazole 20 mg capsule,delayed release(DR/EC) 20 mg PO DAILYBB Qty: 30 0RF rosuvastatin 40 mg tablet 40 mg PO QAM Qty: 30 0RF Novolin 70-30 FlexPen U-100 100 unit/mL (70-30) insulin pen 33 unit subcut BID Qty: 15 0RF lisinopril [Zestril] 5 mg Tablet 5 mg PO QAM Qty: 30 0RF Discontinued cyclobenzaprine 5 mg tablet 5 mg PO TID PRN (Reason: muscle spasm) Qty: 30 0RF Rx Instructions: NO MONEY TO PRESS WRITER FROM PHARMACY Discharge Orders: Discharge Order (Routine); Ordered 07/31/24 Ordered By: Jamie Montero Admission Data Admit Date/Time: 07/24/24 15:12 Attending Provider: Jamie Montero Admit Provider: Julio Stevenson Primary Care Provider: Anabel Ortiz Other Providers: Melchor Casiano; Delvis Busch; Dixon Navas; Shady Colindres; Kehinde Torres I.; Yevgeniy Pitt II; Sharmila Anne; Zbigniew Frias; Schuyler Valles.; Ashok Menendez; Derek Mcgee; [employer],[facility]; [place],[facility]; Lalo Johnson
[2024-07-31 15:38] VITALS: RESP 18; O2SAT 96
[2024-07-31] MEDS ORDERED: ENOXAPARIN 1 MG/KG SQ SCH (16:30)
[2024-07-31 16:39] VITALS: BP 125/70; PULSE 84
[2024-07-31] MEDS: ENOXAPARIN 80 MG/0.8 ML SYR SQ SCH (16:47)
== END 2024-07-31 17:30 | DRG 853 ==
LOC: ED 12:25 → SUATTDRO 15:12 → 2S 15:12

== ENCOUNTER 2024-10-10 13:02 | Observation (INO) ==
[2024-10-10 13:46] LABS: Base Excess VBG -9.9 mEq/L; HCO3 VBG 16 mmol/L; Oxygen Saturation VBG 70.7 %; PCO2 VBG 35 mmHg (38-50); PO2 VBG 42 mmHg; pH VBG 7.27 (7.36-7.41)
[2024-10-10] MEDS: SODIUM CHLORIDE 0.9% 1,000 ML IV SCH (13:47)
[2024-10-10 13:59] LABS: Appearance Urine Clear (Clear); Bacteria Urine Automated None Seen (None Seen); Bilirubin Urine Negative (Negative); Blood Urine Negative (Negative); Color Urine Yellow; Epithelial Cell Urine Auto 0-2 /hpf (0-2); Glucose Urine UA 3+ (Negative); Ketones Urine 3+ (Negative); Leukocyte Esterase Urine Negative (Negative); Nitrite Urine Negative (Negative); Protein Urine 1+ (Negative); RBC Urine Automated 0-2 /hpf (0-2); Specific Gravity Urine 1.025 (1.000-1.030); Urobilinogen Urine Negative (Negative); WBC Urine Automated 0-5 /hpf (0-5); pH Urine 5.5 (4.5-7.5)
[2024-10-10 14:04] LABS: Basophils # (auto) 0.05 K/uL (0.00-0.20); Basophils % (auto) 0.5 %; Eosinophils # (auto) 0.06 K/uL (0.00-0.50); Eosinophils % (auto) 0.6 %; Hematocrit (blood only) 45.5 % (42.0-52.0); Hemoglobin 15.8 g/dl (14.0-18.0); Immature Granulocytes # (auto) 0.05 K/uL (0.01-0.20); Immature Granulocytes % (auto) 0.5 %; Lymphocytes # (auto) 1.45 K/uL (1.20-3.40); Lymphocytes % (auto) 14.1 %; Mean Corpuscular Hemoglobin 29.9 pg (25.0-34.0); Mean Corpuscular Hgb Conc 34.7 g/dL (32.0-36.0); Mean Corpuscular Volume 86.2 fL (80.0-100.0); Mean Platelet Volume 10.5 fL (9.4-12.4); Monocytes # (auto) 0.74 K/uL (0.11-0.59); Monocytes % (auto) 7.2 %; Neutrophils # (auto) 7.91 K/uL (1.40-6.50); Neutrophils % (auto) 77.1 %; Platelet Count 165 K/uL (130-400); RDW Coefficient of Variation 15.6 % (11.5-14.5); RDW Standard Deviation 48.6 fL (36.4-46.3); Red Blood Count 5.28 M/uL (4.70-6.10); White Blood Count 10.26 K/ul (4.8-10.8)
[2024-10-10 14:32] LABS: Albumin Globulin Ratio 1.1 (0.9-2); Albumin Level 4.1 gm/dl (3.4-5.0); BUN Creatinine Ratio 15.7 (10-20); Bilirubin,Total 0.6 mg/dl (0.2-1.0); Calcium 9.6 mg/dl (8.6-10.3); Creatinine Clr Calc Pharmacy 50.9 ml/min; Globulin 3.6 gm/dl (2.5-4.0); Magnesium 1.9 mg/dl (1.7-2.4); Potassium 4.9 mmol/L (3.5-5.1); Total Protein 7.7 gm/dl (6.0-8.3)
[2024-10-10 14:34] LABS: Thyroid Stimulating Hormone 1.486 uIu/ml (0.300-4.500)
[2024-10-10] MEDS ORDERED: GLUCOSE 10 TAB/TUBE PO PRN (14:39)
[2024-10-10] MEDS ORDERED: GLUCAGON FOR INJ 1 MG VIAL SQ PRN (14:39)
[2024-10-10] MEDS ORDERED: DEXTROSE 50% 50 ML SYRINGE IV PRN (14:39)
[2024-10-10] MEDS ORDERED: GLUCOSE 40% GEL 15 GM TUBE PO PRN (14:39)
[2024-10-10] MEDS: SODIUM CHLORIDE 0.9% 500 ML IV ONE (14:42)
--- NOTE | 2024-10-10 14:48 | XRay Report ---
XR chest 1V portable HISTORY: 64 years-old Male weakness acute weakness COMPARISON: 07/24/2024 TECHNIQUE: AP view chest FINDINGS: Cardiac silhouette is upper limits of normal in size. Median sternotomy. No pneumothorax, pleural eff usion or overt pulmonary edema. Mild chronic interstitial coarsening. Patchy bibasilar densities are similar to prior. Right shoulder rotator cuff calcific tendinosis. Bones appear grossly intact. IMPRESSION: Bibasilar densities are similar in appearance to the study from 07/24/2024 and may represe nt atelectasis/scarring versus pneumonitis. ACT 112: Negative or not required by law. The above report was generated using voice recognition software. It may contain grammatical, syntax o r spelling errors. Electronically signed by: Reece Catalan M.D. 10/10/2024 2:47 PM
--- NOTE | 2024-10-10 14:53 | CT Scan Report ---
CT OF THE ABDOMEN AND PELVIS WITHOUT CONTRAST CLINICAL HISTORY: Diarrhea, untreated c.diff, hyperglycemia. COMPARISON STUDY: CT of the abdomen and pelvis September 11, 2024. TECHNIQUE: Axial images of the abdomen and pelvis were obtained without IV contrast. Images were revi ewed in the axial, sagittal, and coronal planes. Automated exposure control was utilized for the ernesto dy. A dose lowering technique was utilized adhering to the principles of ALARA. FINDINGS: Subpleural reticulation, groundglass opacities and bronchiectasis within the lung bases are similar to prior CT. This represents interstitial lung disease. No pneumatosis, free air or portal v enous gas is present. Evaluation of the abdomen and pelvis is suboptimal on this unenhanced examinati on. Hypodense foci within the medial segment of the left hepatic lobe favor steatosis. Spleen, adrena l glands, kidneys and pancreas are unremarkable. There is no hydronephrosis. No biliary or pancreatic ductal dilatation. Ascites shown on prior CT has resolved. There is extensive aortoiliac atheroscler otic plaque. No evidence for a bowel obstruction. A moderate amount of stool within the colon and rec tamiko is noted. Diffuse colonic wall thickening is present. This has improved when compared to CT of [facility] 2024. There is no fluid collection is suggest abscess. Appendix is normal. There is no lymphad enopathy. IMPRESSION: 1. Diffuse clonic wall thickening, improved when compared to CT of September 11, 2024. This is suggestive of an infectious etiology and would be consistent with the provided history of C. difficile colitis. 2. No bowel obstruction. Moderate amount of poorly formed stool within the colon and rectum. ACT 112: Negative or not required by law. Electronically signed by: Cassius Perez M.D. 10/10/2024 2:52 PM
--- NOTE | 2024-10-10 15:04 | Emergency Department Note ---
Impression & Plan DKA (diabetic ketoacidosis), Noncompliance with medications, Colitis ED Provider Note NAME: АЛЕКСАНДР ALLEN AGE: 64 SEX: Male INFORMANT: Patient ED PROVIDER(S): Alejo Riddle MD CHIEF COMPLAINT: Illness PLAN: Disposition: Admitted Outpatient prescription management: none Referral: None MEDICAL DECISION MAKING: Patient presented because of illness. He was hyperglycemic. Clinically there was concerns for possible DKA given his lack of insulin use. Patient does note continued diarrhea but improvement there. He did have some mild tenderness on examination. Patient did not have a fever. No hypotension. Patient was started on IV normal saline at 500 bolus and then 125 an hour. His blood work revealed a mild decrease of his venous pH. Chemistry panel consistent with DKA and hyperglycemia. CBC unremarkable. ECG was nonischemic. Discussed with ED pharmacist. DKA order set for insulin and labs initiated. IV fluids changed. Patient was reassessed and was feeling better. Consultation was made with the hospitalist service. Patient was evaluated in the ER and admitted for further management. Care/management discussed with: shopper marketing manager, hospitalist Level of care consideration(s): After review of the information above and other included data, I feel the patient requires escalation of care to admission requires escalation of care to admission Triage Nursing notes: reviewed and agree them. Vital Signs: reviewed and remarkable for no significant abnormalities Additional History obtained from: none Chronic Medical/Social Conditions affecting care: Diabetes Prior/ Outside/ External records reviewed: none Differential Diagnosis: DKA,Infection, dehydration, metabolic abnormality, hypo/hyperglycemia, electrolyte disturbance, anemia, hypoxia, cardiac sources, intracerebral event, toxicologic, neurologic, as well as other pathologies. Diagnostics, independently interpreted by me: ECG: Twelve-lead ECG reveals a normal sinus rhythm at 98 bpm. Inferior Q waves. By atrial enlargement and LVH present. Cardiac Monitoring: Cardiac monitoring ordered by me: The patient was placed on continuous cardiac monitoring and observed. It revealed a normal sinus rhythm at 84 beats per minute without ectopy or evidence of dysrhythmia. Medical decision rules: none Imaging studies: CT imaging of the abdomen pelvis reveals mild colitis which is improved from prior. Chest x-ray reveals bibasilar atelectasis but no acute infiltrates. I refer you to the EMR for further details. HPI: 64 year old Male arrives for evaluation of generalized illness. Patient notes over the last week he has been dealing with fatigue. He notes feeling dehydrated. His sugars have been out of control and he has not been taking his insulin because he is unable to afford it. 3 weeks ago he was seen in the emergency department and diagnosed with C. difficile colitis. He was treated with Dificid and prescribed a full course. He states he was unable to fill the course due to the cost. He has been having intermittent diarrhea as although it is somewhat better than it was before. Patient does note some mild left lower quadrant abdominal pain that he rates as a 6. Patient notes having a wound on his left heel that has improved with treatment. Prehospital BSG was 464. Pt denies LOC, headache, fevers, chills, diaphoresis, visual changes, neck pain, chest pain, breathing difficulties, nausea, vomiting, back pain, melena, hematochezia, urinary symptoms, numbness, rash, or other complaints.. PAST MEDICAL HISTORY: See Below, diabetes PAST SURGICAL HISTORY: See Below, SOCIAL HISTORY: See Below, former smoker HOME MEDICATIONS: See Below ALLERGIES: See Below VITALS: See Below PHYSICAL EXAMINATION: GENERAL: Awake, tired-appearing, in no distress HENT: Normocephalic, atraumatic. Oropharynx unremarkable. Dry mucous membranes present. EYES: Normal conjunctiva. Sclera non-icteric. NECK: Inspection normal. Non-tender. Supple. No nuchal rigidity. FROM. No masses. RESPIRATORY: Clear to auscultation. No wheezes. No rales. Normal respiratory effort. CARDIAC: Normal rate. Normal rhythm. No murmurs. No rubs. Extremities warm and well perfused. Pulses equal. No JVD. GI: Soft, non-distended. Mild left lower quadrant tenderness to palpation. No rebound or guarding. No masses. RECTAL: Deferred. MUSCULOSKELETAL: Atraumatic. Chest examination reveals no tenderness. The back is symmetrical on inspection without obvious abnormality. There is no CVA tenderness to palpation. No joint edema. LOWER EXTREMITIES: Calves are equal size bilaterally and non-tender. No edema. No discoloration. Dry skin present. There is mild tenderness of the left heel which patient states is improved. healing ulcer noted on the left heel. No cellulitis. NEURO: Normal sensorium. No sensory or motor deficits noted. SKIN: No rash or jaundice noted. PROCEDURES: none CRITICAL CARE: I have personally spent greater than 35 minutes of critical care time in the direct management of this patient. This includes bedside care, interpretation of diagnostic studies, and testing, discussion with consultants, patient, and other required patient management activities. These minutes are in excess of all separately billable procedures. OBSERVATION NOTE: none Past Med/Surg History Problem List (Updated 10/11/24 @ 12:51 by Sung Frias DO) Patient's other noncompliance with medication regimen due to financial hardship C. 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 occlusive disease Hypocalcemia Acute hypoxic respiratory failure Ischemic rest pain of lower extremity Unstageable pressure ulcer of heel Acute hyperglycemia (Acute) Elevated troponin (Acute) Left foot pain (Acute) Elevated lactic acid level (Acute) Tachycardia (Acute) Influenza A (Acute) Pneumonia (Acute) Sepsis (Acute) Chronic anticoagulation Spinal stenosis, lumbar region with neurogenic claudication Ambulatory dysfunction (Acute) Hip pain, left (Acute) Lumbar radiculitis Medical History GERD (gastroesophageal reflux disease) ILD (interstitial lung disease) H/O TIA (transient ischemic attack) and stroke Stroke-like episode - History of TIA vs vertigo per cardio records 11/2021 (on Plavix) - 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 Repeat head CTA 08/2022 was unremarkable and no left ICA aneurysm identified Hypertension Hyperlipidemia PFO (patent foramen ovale) Small per 11/2021 [facility] imaging per cardio records Barretts esophagus Per records Gallbladder sludge reason for upcoming procedure Arthritis, gouty Hx of kidney disease PER PATIENT, ACUTE KIDNEY DISEASE 05/2022>WNL CURRENTLY GERD (gastroesophageal reflux disease) "silent/mild" Diabetes mellitus, type 2 Hx of pancreatitis HOSPITALIZED 05/2022>DKA and acute pancreatitis Aortic valve stenosis Severe per 05/2022 ECHO (PK 0.78-1.0cm2; AV mean PG 23.2mmHg; AV max velocity 3.684m/s) Chronic obstructive pulmonary disease MILD>NO INHALERS PER PATIENT Surgical History H/O mechanical aortic valve replacement Nausea and vomiting after administration of anesthetic agent H/O arthroscopic knee surgery + GANGLION CYST REMOVED>RT History of esophagogastroduodenoscopy (EGD) History of colonoscopy History of tooth extraction History of tonsillectomy and adenoidectomy History of cataract surgery RT/LEFT History of foot surgery RT History of carpal tunnel surgery LEFT Family History Other Diabetes Heart disease No family history of adverse response to anesthesia Social History Smoking Status: Former smoker Tobacco Type: Cigarettes Cigarettes Per Day: 4 CIG DAILY>ADVISED; Second Hand Exposure: No; Do You Dip or Chew Tobacco: No; Hx Alcohol Use: No Hx Substance Use: No Preferred Language: Nepali Communication Ability: Effective Airport Operations Specialist Required: No Beliefs That Will Affect Care: None marital status: Unknown Current Living Situation: Alone Current Living Situation Comment: son Other Information That Helps Us Care for You: No Feels Safe at Home: Yes Safety Concerns: Feels Safe At This Time Assistive Devices: Walker Allergies Allergies Allergy/AdvReac Type Severity Reaction Status Date / Time erythromycin base AdvReac Intermediate Abdominal Verified 10/10/24 15:06 Pain Home Meds Home Medications Medication Instructions Recorded Confirmed pregabalin 100 mg capsule 100 mg PO BID 10/10/24 10/10/24 warfarin 7.5 mg tablet 7.5 mg PO UD 10/10/24 10/10/24 Previous Rx's Medication Instructions Recorded aspirin 81 mg tablet,delayed 81 mg PO DAILY #30 tabs 06/02/24 release insulin NPH-regular 70-30 U-100 33 unit (0.33 mL) subcut BID #15 mL 06/02/24 insulin 100 unit/mL subcutaneous pen (Novolin 70-30 FlexPen U-100 Insulin) pen needle, diabetic 32 gauge x #50 ea 06/02/24" (Pen Needle) rosuvastatin 40 mg tablet 40 mg PO QAM #30 tabs 06/02/24 lisinopril 5 mg tablet (Zestril) 5 mg PO QAM #30 tabs 06/06/24 gabapentin 300 mg capsule 300 mg PO TID #90 caps 07/08/24 clopidogrel 75 mg tablet 75 mg PO QAM #30 tabs 07/29/24 Results & Data (ED) Vital Signs Vital Signs - 24 hr 10/10/24 13:12 10/10/24 13:17 10/10/24 13:21 Temperature 36.8 C Temperature Source Oral Pulse Rate 96 H 97 H Pulse Rate from SpO2 Sensor 97 H Respiratory Rate 20 Respiratory Effort / Characteristics Non-Labored Spontaneous Respiratory Depth Normal Respiratory Pattern Regular Blood Pressure 159/86 H 159/86 H Blood Pressure Mean 113 110 Blood Pressure Position Lying Pulse Oximetry 97 97 Oxygen Delivery Method Room Air Sepsis Recent Fever Within 48 Hours No Sepsis New/Unexplained Change in Mental Status N/A Sepsis Action Taken by Nursing No Action Required 10/10/24 13:23 10/10/24 13:30 10/10/24 13:39 Temperature Temperature Source Pulse Rate 95 H 95 H 94 H Pulse Rate from SpO2 Sensor 95 H 94 H Respiratory Rate 14 14 Respiratory Effort / Characteristics Respiratory Depth Respiratory Pattern Blood Pressure Blood Pressure Mean Blood Pressure Position Pulse Oximetry 97 97 Oxygen Delivery Method Sepsis Recent Fever Within 48 Hours Sepsis New/Unexplained Change in Mental Status Sepsis Action Taken by Nursing 10/10/24 13:42 10/10/24 14:01 10/10/24 14:03 Temperature Temperature Source Pulse Rate Pulse Rate from SpO2 Sensor 93 H Respiratory Rate Respiratory Effort / Characteristics Respiratory Depth Respiratory Pattern Blood Pressure 142/70 H Blood Pressure Mean 98 Blood Pressure Position Pulse Oximetry 98 97 Oxygen Delivery Method Room Air Sepsis Recent Fever Within 48 Hours Sepsis New/Unexplained Change in Mental Status Sepsis Action Taken by Nursing 10/10/24 14:21 10/10/24 14:31 10/10/24 14:33 Temperature Temperature Source Pulse Rate 97 H Pulse Rate from SpO2 Sensor 92 H 97 H Respiratory Rate Respiratory Effort / Characteristics Respiratory Depth Respiratory Pattern Blood Pressure 96/67 L Blood Pressure Mean 70 Blood Pressure Position Pulse Oximetry 96 97 Oxygen Delivery Method Sepsis Recent Fever Within 48 Hours Sepsis New/Unexplained Change in Mental Status Sepsis Action Taken by Nursing 10/10/24 14:39 10/10/24 14:42 Temperature Temperature Source Pulse Rate 94 H Pulse Rate from SpO2 Sensor 94 H Respiratory Rate 14 Respiratory Effort / Characteristics Respiratory Depth Respiratory Pattern Blood Pressure 139/74 Blood Pressure Mean 107 Blood Pressure Position Pulse Oximetry 97 Oxygen Delivery Method Sepsis Recent Fever Within 48 Hours Sepsis New/Unexplained Change in Mental Status Sepsis Action Taken by Nursing Laboratory Data 10/11/24 06:54 10/11/24 11:28 Lab Results 10/10/24 10/10/24 10/10/24 Range/Units 13:07 13:26 13:30 WBC 10.26 (4.8-10.8) K/ul RBC 5.28 (4.70-6.10) M/uL Hgb 15.8 (14.0-18.0) g/dl POC Hgb (14.0-18.0) g/dl Hct 45.5 (42.0-52.0) % POC Hct (42-52) % MCV 86.2 (80.0-100.0) fL MCH 29.9 (25.0-34.0) pg MCHC 34.7 (32.0-36.0) g/dL RDW Std Deviation 48.6 H (36.4-46.3) fL RDW Coeff of Mariah 15.6 H (11.5-14.5) % Plt Count 165 (130-400) K/uL MPV 10.5 (9.4-12.4) fL Immature Gran % (Auto) 0.5 % Neut % (Auto) 77.1 % Lymph % (Auto) 14.1 % Desha % (Auto) 7.2 % Eos % (Auto) 0.6 % Baso % (Auto) 0.5 % Neut # (Auto) 7.91 H (1.40-6.50) K/uL Lymph # (Auto) 1.45 (1.20-3.40) K/uL Desha # (Auto) 0.74 H (0.11-0.59) K/uL Eos # (Auto) 0.06 (0.00-0.50) K/uL Baso # (Auto) 0.05 (0.00-0.20) K/uL Immature Gran # (Auto) 0.05 (0.01-0.20) K/uL PT (9.0-12.0) Seconds INR (0.9-1.1) POC pH (7.35-7.45) POC pCO2 (35-46) mmHg POC pO2 (80-95) mmHg POC HCO3 (19-24) joseph/L POC Total CO2 (24-31) mmol/L POC Base Excess (-9-1.8) joseph/L POC ABG O2 Sat (90-95) % VBG pH 7.27 L (7.36-7.41) VBG pCO2 35 L (38-50) mmHg VBG pO2 42 mmHg VBG HCO3 16 mmol/L VBG O2 Saturation 70.7 % VBG Base Excess -9.9 mEq/L POC Sodium (135-144) mmol/L Sodium 130 L (136-145) mmol/L POC Potassium (3.3-5.0) mmol/L Potassium 4.9 (3.5-5.1) mmol/L Chloride 95 L (98-107) mmol/L Carbon Dioxide 18 L (21-32) mmol/L Anion Gap 17 H (3-11) BUN 19 (6-23) mg/dl Creatinine 1.21 (0.6-1.4) mg/dl Est Cr Clr Drug Dosing 50.9 ml/min eGFR 67.70 BUN/Creatinine Ratio 15.7 (10-20) Glucose 498 H* (70-99(Fasting)) mg/dl POC Glucose 518 H* (70-99) mg/dl Estimat Average Glucose 289 mg/dl Hemoglobin A1c 11.7 H (4.5-5.6) % Lactate 1.7 (0.4-2.0) mmol/L Calcium 9.6 (8.6-10.3) mg/dl Phosphorus (2.5-4.9) mg/dl Magnesium 1.9 (1.7-2.4) mg/dl Total Bilirubin 0.6 (0.2-1.0) mg/dl AST 11 L (13-39) U/L ALT 9 (7-52) U/L Alkaline Phosphatase 132 H (34-104) U/L Troponin I High Sens 18.0 (0-20) pg/ml Total Protein 7.7 (6.0-8.3) gm/dl Albumin 4.1 (3.4-5.0) gm/dl Globulin 3.6 (2.5-4.0) gm/dl Albumin/Globulin Ratio 1.1 (0.9-2) Procalcitonin 0.26 (0-0.5) ng/ml TSH 1.486 (0.300-4.500) uIu/ml Urine Color Yellow Urine Appearance Clear (Clear) Urine pH 5.5 (4.5-7.5) Ur Specific [place] 1.025 (1.000-1.030) Urine Protein 1+ H (Negative) Urine Glucose (UA) 3+ H (Negative) Urine Ketones 3+ H (Negative) Urine Blood Negative (Negative) Urine Nitrite Negative (Negative) Urine Bilirubin Negative (Negative) Urine Urobilinogen Negative (Negative) Ur Leukocyte Esterase Negative (Negative) Urine WBC (Auto) 0-5 (0-5) /hpf Urine RBC (Auto) 0-2 (0-2) /hpf U Hyaline Cast (Auto) 3-5 H (0-2) /lpf U Epithel Cells (Auto) 0-2 (0-2) /hpf Urine Bacteria (Auto) None Seen (None Seen) 10/10/24 10/10/24 10/10/24 Range/Units 13:31 15:05 15:33 WBC 9.35 (4.8-10.8) K/ul RBC 4.71 (4.70-6.10) M/uL Hgb 14.0 (14.0-18.0) g/dl POC Hgb 13.9 L (14.0-18.0) g/dl Hct 39.9 L (42.0-52.0) % POC Hct 41 L (42-52) % MCV 84.7 (80.0-100.0) fL MCH 29.7 (25.0-34.0) pg MCHC 35.1 (32.0-36.0) g/dL RDW Std Deviation 47.6 H (36.4-46.3) fL RDW Coeff of Mariah 15.4 H (11.5-14.5) % Plt Count 134 (130-400) K/uL MPV 9.9 (9.4-12.4) fL Immature Gran % (Auto) 0.5 % Neut % (Auto) 78.3 % Lymph % (Auto) 13.0 % Desha % (Auto) 7.6 % Eos % (Auto) 0.4 % Baso % (Auto) 0.2 % Neut # (Auto) 7.31 H (1.40-6.50) K/uL Lymph # (Auto) 1.22 (1.20-3.40) K/uL Desha # (Auto) 0.71 H (0.11-0.59) K/uL Eos # (Auto) 0.04 (0.00-0.50) K/uL Baso # (Auto) 0.02 (0.00-0.20) K/uL Immature Gran # (Auto) 0.05 (0.01-0.20) K/uL PT 11.3 (9.0-12.0) Seconds INR 1.0 (0.9-1.1) POC pH 7.33 L (7.35-7.45) POC pCO2 24 L (35-46) mmHg POC pO2 95 (80-95) mmHg POC HCO3 13 L (19-24) joseph/L POC Total CO2 14 L (24-31) mmol/L POC Base Excess -13.0 L (-9-1.8) joseph/L POC ABG O2 Sat 97.0 H (90-95) % VBG pH (7.36-7.41) VBG pCO2 (38-50) mmHg VBG pO2 mmHg VBG HCO3 mmol/L VBG O2 Saturation % VBG Base Excess mEq/L POC Sodium 134 L (135-144) mmol/L Sodium 132 L (136-145) mmol/L POC Potassium 4.5 (3.3-5.0) mmol/L Potassium 4.9 (3.5-5.1) mmol/L Chloride 100 (98-107) mmol/L Carbon Dioxide 18 L (21-32) mmol/L Anion Gap 14 H (3-11) BUN 19 (6-23) mg/dl Creatinine 1.20 (0.6-1.4) mg/dl Est Cr Clr Drug Dosing 51.4 ml/min eGFR 68.38 BUN/Creatinine Ratio 15.8 (10-20) Glucose 459 H* (70-99(Fasting)) mg/dl POC Glucose 464 H* (70-99) mg/dl Estimat Average Glucose mg/dl Hemoglobin A1c (4.5-5.6) % Lactate (0.4-2.0) mmol/L Calcium 8.7 (8.6-10.3) mg/dl Phosphorus 3.5 (2.5-4.9) mg/dl Magnesium 1.8 (1.7-2.4) mg/dl Total Bilirubin 0.5 (0.2-1.0) mg/dl AST 7 L (13-39) U/L ALT 7 (7-52) U/L Alkaline Phosphatase 111 H (34-104) U/L Troponin I High Sens (0-20) pg/ml Total Protein 6.4 (6.0-8.3) gm/dl Albumin 3.5 (3.4-5.0) gm/dl Globulin 2.9 (2.5-4.0) gm/dl Albumin/Globulin Ratio 1.2 (0.9-2) Procalcitonin (0-0.5) ng/ml TSH (0.300-4.500) uIu/ml Urine Color Urine Appearance (Clear) Urine pH (4.5-7.5) Ur Specific [place] (1.000-1.030) Urine Protein (Negative) Urine Glucose (UA) (Negative) Urine Ketones (Negative) Urine Blood (Negative) Urine Nitrite (Negative) Urine Bilirubin (Negative) Urine Urobilinogen (Negative) Ur Leukocyte Esterase (Negative) Urine WBC (Auto) (0-5) /hpf Urine RBC (Auto) (0-2) /hpf U Hyaline Cast (Auto) (0-2) /lpf U Epithel Cells (Auto) (0-2) /hpf Urine Bacteria (Auto) (None Seen) 10/10/24 Range/Units 15:57 WBC (4.8-10.8) K/ul RBC (4.70-6.10) M/uL Hgb (14.0-18.0) g/dl POC Hgb (14.0-18.0) g/dl Hct (42.0-52.0) % POC Hct (42-52) % MCV (80.0-100.0) fL MCH (25.0-34.0) pg MCHC (32.0-36.0) g/dL RDW Std Deviation (36.4-46.3) fL RDW Coeff of Mariah (11.5-14.5) % Plt Count (130-400) K/uL MPV (9.4-12.4) fL Immature Gran % (Auto) % Neut % (Auto) % Lymph % (Auto) % Desha % (Auto) % Eos % (Auto) % Baso % (Auto) % Neut # (Auto) (1.40-6.50) K/uL Lymph # (Auto) (1.20-3.40) K/uL Desha # (Auto) (0.11-0.59) K/uL Eos # (Auto) (0.00-0.50) K/uL Baso # (Auto) (0.00-0.20) K/uL Immature Gran # (Auto) (0.01-0.20) K/uL PT (9.0-12.0) Seconds INR (0.9-1.1) POC pH (7.35-7.45) POC pCO2 (35-46) mmHg POC pO2 (80-95) mmHg POC HCO3 (19-24) joseph/L POC Total CO2 (24-31) mmol/L POC Base Excess (-9-1.8) joseph/L POC ABG O2 Sat (90-95) % VBG pH (7.36-7.41) VBG pCO2 (38-50) mmHg VBG pO2 mmHg VBG HCO3 mmol/L VBG O2 Saturation % VBG Base Excess mEq/L POC Sodium (135-144) mmol/L Sodium (136-145) mmol/L POC Potassium (3.3-5.0) mmol/L Potassium (3.5-5.1) mmol/L Chloride (98-107) mmol/L Carbon Dioxide (21-32) mmol/L Anion Gap (3-11) BUN (6-23) mg/dl Creatinine (0.6-1.4) mg/dl Est Cr Clr Drug Dosing ml/min eGFR BUN/Creatinine Ratio (10-20) Glucose (70-99(Fasting)) mg/dl POC Glucose 421 H* (70-99) mg/dl Estimat Average Glucose mg/dl Hemoglobin A1c (4.5-5.6) % Lactate (0.4-2.0) mmol/L Calcium (8.6-10.3) mg/dl Phosphorus (2.5-4.9) mg/dl Magnesium (1.7-2.4) mg/dl Total Bilirubin (0.2-1.0) mg/dl AST (13-39) U/L ALT (7-52) U/L Alkaline Phosphatase (34-104) U/L Troponin I High Sens (0-20) pg/ml Total Protein (6.0-8.3) gm/dl Albumin (3.4-5.0) gm/dl Globulin (2.5-4.0) gm/dl Albumin/Globulin Ratio (0.9-2) Procalcitonin (0-0.5) ng/ml TSH (0.300-4.500) uIu/ml Urine Color Urine Appearance (Clear) Urine pH (4.5-7.5) Ur Specific [place] (1.000-1.030) Urine Protein (Negative) Urine Glucose (UA) (Negative) Urine Ketones (Negative) Urine Blood (Negative) Urine Nitrite (Negative) Urine Bilirubin (Negative) Urine Urobilinogen (Negative) Ur Leukocyte Esterase (Negative) Urine WBC (Auto) (0-5) /hpf Urine RBC (Auto) (0-2) /hpf U Hyaline Cast (Auto) (0-2) /lpf U Epithel Cells (Auto) (0-2) /hpf Urine Bacteria (Auto) (None Seen) Administered Medications Acetaminophen (Acetaminophen 325 Mg Tab) 650 mg PO Q4H PRN PRN Reason: Pain or Fever Stop: 11/09/24 18:24 Last Admin: 10/11/24 17:15 Dose: 650 mg Documented By: Admin: 10/11/24 09:52 Dose: 650 mg Documented By: GLENROY Aspirin (Aspirin 81 Mg Ectab) 81 mg PO DAILY [facility] Stop: 11/10/24 08:59 Last Admin: 10/11/24 09:26 Dose: 81 mg Documented By: GLENROY Enoxaparin Sodium (Enoxaparin Inj 60 Mg/0.6 Ml Syr) 60 mg SQ Q12H [facility] Stop: 11/09/24 18:59 Last Admin: 10/11/24 19:46 Dose: 60 mg Documented By: Admin: 10/11/24 06:14 Dose: 60 mg Documented By: Admin: 10/10/24 19:18 Dose: 60 mg Documented By: CHACORTA Fidaxomicin (Fidaxomicin 200 Mg Tab) 200 mg PO BID [facility] Stop: 10/20/24 20:59 Last Admin: 10/11/24 09:53 Dose: 200 mg Documented By: Admin: 10/10/24 21:05 Dose: 200 mg Documented By: CHACORTA Gabapentin (Gabapentin 300 Mg Cap) 300 mg PO TID [facility] Stop: 11/09/24 20:59 Last Admin: 10/11/24 14:50 Dose: 300 mg Documented By: Admin: 10/11/24 09:25 Dose: 300 mg Documented By: Admin: 10/10/24 21:05 Dose: 300 mg Documented By: CHACORTA Insulin Aspart (Insulin Aspart Per Unit Charge) 0 units SC ACHS NELI Stop: 11/10/24 07:29 Last Admin: 10/11/24 17:13 Dose: 3 units Documented By: GLENROY Co-signed By: SALMA Admin: 10/11/24 12:41 Dose: 15 units Documented By: GLENROY Co-signed By: KATELIN Admin: 10/11/24 09:24 Dose: 5 units Documented By: GLENROY Co-signed By: SALMA Insulin Glargine (Lantus Per Unit Charge) 20 units SC DAILY [facility] Stop: 11/10/24 08:59 Last Admin: 10/11/24 09:25 Dose: 20 units Documented By: GLENROY Co-signed By: SALMA Rosuvastatin Calcium (Rosuvastatin Calcium 20 Mg Tab) 40 mg PO QAM [facility] Stop: 11/10/24 08:59 Last Admin: 10/11/24 09:26 Dose: 40 mg Documented By: GLENROY Warfarin Sodium (Warfarin Sod 10 Mg Tab) 10 mg PO DAILY@1600 [facility] Stop: 11/10/24 15:59 Last Admin: 10/11/24 17:16 Dose: 10 mg Documented By: GLENROY Discontinued Medications Sodium Chloride (Nss) 500 mls @ 999 mls/hr IV .Q31M ONE Stop: 10/10/24 13:55 Last Infusion: 10/10/24 15:41 Dose: Infused Documented By: Admin: 10/10/24 14:42 Dose: 999 mls/hr Documented By: DEVIKA Sodium Chloride (Nss) 1,000 mls @ 125 mls/hr IV .Q8H [facility] Stop: 10/11/24 13:29 Last Infusion: 10/10/24 19:29 Dose: Infused Documented By: Infusion: 10/10/24 15:42 Dose: 0 mls/hr Documented By: Admin: 10/10/24 13:47 Dose: 125 mls/hr Documented By: DEVIKA Insulin Human Regular 250 (units/ Sodium Chloride) 250 mls @ 3.1 mls/hr IV .Q24H NELI; Protocol Stop: 10/10/24 23:00 Last Titration: 10/10/24 23:21 Dose: Infused Documented By: CHACORTA Co-signed By: TONI Titration: 10/10/24 20:05 Dose: 3.1 units/hr, 3.1 mls/hr Documented By: CHACORTA Co-signed By: MARK Titration: 10/10/24 19:14 Dose: 2.2 units/hr, 2.2 mls/hr Documented By: CHACORTA Co-signed By: MARK Titration: 10/10/24 18:05 Dose: 2.7 units/hr, 2.7 mls/hr Documented By: LAYLA Co-signed By: IRLANDA Titration: 10/10/24 17:30 Dose: 3.4 units/hr, 3.4 mls/hr Documented By: LAYLA Co-signed By: IRLANDA Titration: 10/10/24 17:02 Dose: 0 units/hr, 0 mls/hr Documented By: LAYLA Co-signed By: QGV Admin: 10/10/24 15:57 Dose: 5.7 units/hr, 5.7 mls/hr Documented By: LAYLA Co-signed By: IRLANDA Sodium Chloride (Nss) 1,000 mls @ 999 mls/hr IV .Q1H1M ONE Stop: 10/10/24 15:39 Last Admin: 10/10/24 16:02 Dose: Not Given Documented By: LAYLA Potassium Chloride/Sodium Chloride (1/2 Nss + 20meq Kcl 1000ml) 20 meq in 1,000 mls @ 125 mls/hr IV .Q8H NELI Stop: 10/11/24 14:44 Last Infusion: 10/10/24 20:33 Dose: Infused Documented By: Admin: 10/10/24 15:37 Dose: 125 mls/hr Documented By: LAYLA Potassium Chloride/Dextrose/Sod Cl (D5w And 1/2nss + 20meq Kcl) 20 meq in 1,000 mls @ 125 mls/hr IV .Q8H NELI Stop: 11/09/24 19:44 Last Infusion: 10/10/24 21:15 Dose: Infused Documented By: Admin: 10/10/24 20:14 Dose: 125 mls/hr Documented By: CHACORTA Insulin Aspart (Insulin Aspart Per Unit Charge) 0 units SC ACHS NELI Stop: 11/09/24 16:29 Last Admin: 10/11/24 11:12 Dose: Not Given Documented By: Admin: 10/10/24 21:13 Dose: Not Given Documented By: Admin: 10/10/24 20:17 Dose: Not Given Documented By: CHACORTA Insulin Glargine (Lantus Per Unit Charge) 20 units SC NOW ONE Stop: 10/10/24 21:01 Last Admin: 10/10/24 21:35 Dose: 20 units Documented By: CHACORTA Co-signed By: MARK Insulin Human Regular (Novolin-R Bolus From Bag) 5.7 units IV ONE ONE Stop: 10/10/24 15:01 Last Admin: 10/10/24 16:00 Dose: 5.7 units Documented By: LAYLA Co-signed By: IRLANDA Mckeon (Stat Iv Infusion Titration Per Protocol) 1 each N/A NOW STA Stop: 10/10/24 14:40 Last Admin: 10/10/24 19:14 Dose: 1 each Documented By: CHACORTA Mckeon (Dka Goal Range 150-250 Mg/Dl) 1 each N/A ONE ONE Stop: 10/10/24 14:40 Last Admin: 10/10/24 19:14 Dose: 1 each Documented By: CHACORTA Mckeon (Pending 1/2nss+20meq Kcl Ivf) 1 each N/A Q2H NELI Stop: 11/09/24 18:24 Last Admin: 10/10/24 20:18 Dose: Not Given Documented By: Admin: 10/10/24 19:19 Dose: Not Given Documented By: CHACORTA Mckeon (Pending D5 1/2ns+20meq Kcl Ivf) 1 each N/A Q2H NELI Stop: 11/09/24 18:24 Last Admin: 10/10/24 21:14 Dose: Not Given Documented By: Admin: 10/10/24 20:32 Dose: Not Given Documented By: CHACORTA Mckeon (Stop Order: Insulin Gtt) 1 each N/A ONE ONE Stop: 10/10/24 23:01 Last Admin: 10/10/24 23:20 Dose: 1 each Documented By: [facility] Imaging Data Radiologist's Impression: Chest X-Ray 10/10/24 13:25 XR chest 1V portable HISTORY: 64 years-old Male weakness acute weakness COMPARISON: 07/24/2024 TECHNIQUE: AP view chest FINDINGS: Cardiac silhouette is upper limits of normal in size. Median sternotomy. No pneumothorax, pleural effusion or overt pulmonary edema. Mild chronic interstitial coarsening. Patchy bibasilar densities are similar to prior. Right shoulder rotator cuff calcific tendinosis. Bones appear grossly intact. IMPRESSION: Bibasilar densities are similar in appearance to the study from 07/24/2024 and may represent atelectasis/scarring versus pneumonitis. ACT 112: Negative or not required by law. The above report was generated using voice recognition software. It may contain grammatical, syntax or spelling errors. Electronically signed by: Reece Catalan M.D. 10/10/2024 2:47 PM Abdomen/Pelvis CT 10/10/24 13:26 CT OF THE ABDOMEN AND PELVIS WITHOUT CONTRAST CLINICAL HISTORY: Diarrhea, untreated c.diff, hyperglycemia. COMPARISON STUDY: CT of the abdomen and pelvis September 11, 2024. TECHNIQUE: Axial images of the abdomen and pelvis were obtained without IV contrast. Images were reviewed in the axial, sagittal, and coronal planes. Automated exposure control was utilized for the study. A dose lowering technique was utilized adhering to the principles of ALARA. FINDINGS: Subpleural reticulation, groundglass opacities and bronchiectasis within the lung bases are similar to prior CT. This represents interstitial lung disease. No pneumatosis, free air or portal venous gas is present. Evaluation of the abdomen and pelvis is suboptimal on this unenhanced examination. Hypodense foci within the medial segment of the left hepatic lobe favor steatosis. Spleen, adrenal glands, kidneys and pancreas are unremarkable. There is no hydronephrosis. No biliary or pancreatic ductal dilatation. Ascites shown on prior CT has resolved. There is extensive aortoiliac atherosclerotic plaque. No evidence for a bowel obstruction. A moderate amount of stool within the colon and rectum is noted. Diffuse colonic wall thickening is present. This has improved when compared to CT of September 11, 2024. There is no fluid collection is suggest abscess. Appendix is normal. There is no lymphadenopathy. IMPRESSION: 1. Diffuse clonic wall thickening, improved when compared to CT of September 11, 2024. This is suggestive of an infectious etiology and would be consistent with the provided history of C. difficile colitis. 2. No bowel obstruction. Moderate amount of poorly formed stool within the colon and rectum. ACT 112: Negative or not required by law. Electronically signed by: Cassius Perez M.D. 10/10/2024 2:52 PM Discharge Plan Visit Data Chief Complaint: Illness Stated Complaint: DIARRHEA, HYPERGLYCEMIA ED Provider: Alejo Riddle Discharge Problem: DKA (diabetic ketoacidosis), Noncompliance with medications, Colitis Patient Disposition: Admitted As Inpatient Discharge Instructions Interventions: ED Discharge Assessment Last Done: 10/10/24 19:58
[2024-10-10 15:20] LABS: iSTAT Arterial Blood Gas HCO3 13 meg/L (19-24); iSTAT Arterial Blood Gas pCO2 24 mmHg (35-46); iSTAT Arterial Blood Gas pH 7.33 (7.35-7.45); iSTAT Arterial Blood Gas pO2 95 mmHg (80-95); iSTAT Carbon Dioxide 14 mmol/L (24-31); iSTAT Hematocrit 41 % (42-52); iSTAT Hemoglobin 13.9 g/dl (14.0-18.0); iSTAT Potassium 4.5 mmol/L (3.3-5.0); iSTAT Sodium 134 mmol/L (135-144)
--- NOTE | 2024-10-10 15:31 | Electrocardiogram Report ---
Test Reason : Blood Pressure : */* mmHG Vent. Rate : 98 BPM Atrial Rate : 98 BPM P-R Int : 140 ms QRS Dur : 94 ms QT Int : 358 ms P-R-T Axes : 80 75 67 degrees QTcB Int : 457 ms Normal sinus rhythm Biatrial enlargement Voltage criteria for left ventricular hypertrophy Old Anterior infarct (cited on or before 24-Jul-2024) Abnormal ECG When compared with ECG of 11-Sep-2024 20:25, QRS axis Shifted right Confirmed by Alexis Weston ([id number]) on 10/10/2024 3:31:27 PM Referred By: Confirmed By: Alexis Weston
--- NOTE | 2024-10-10 15:35 | History & Physical Report ---
Date of Service October 10, 2024 Assessment & Plan (1) C. difficile colitis: Plan: Patient is 64-year-old male with PMH HTN, HLD, uncontrolled DM II, GERD, mechanical aortic valve replacement on 2022, presented to ER with c/o ongoing diarrhea. Recent antibiotic use. H/O c-diff in 2016. In ER Afebrile, P: 96, R: 20, BP 159/86, 97% on room air. No leukocytosis [facility] ER visit on 09/11/2024 for ongoing diarrhea. 09/11/2024 stool culture + norovirus, positive C. difficile gene, positive C. difficile toxin and CT abdomen pelvis with diffuse prominent mucosal thickening throughout entire colon, consistent with inflammatory infectious colitis. Patient was given dose of Dificid and discharged with prescription for Dificid. Unfortunately patient never started the Dificid secondary to cost/insurance issues. 5-10 loose and soft stools daily continue. Denies melena, hematochezia Today CT abd/pelvis: Diffuse clonic wall thickening, improved when compared to CT of September 11, 2024. This is suggestive of an infectious etiology and would be consistent with the provided history of C. difficile colitis. No bowel obstruction. Moderate amount of poorly formed stool within the colon and rectum. Contact precautions Will restart Dificid Will need case management to assist in insurance issues to try to assist pt with cost. If too costly may need to change to vancomycin Clear liquid diet for now Assess improvement of stools with Dificid. May consider adding Questran If no improvement consider GI consult CBC, BMP in am (2) DKA (diabetic ketoacidosis): (3) Uncontrolled type 2 diabetes mellitus with hyperglycemia: (4) Noncompliance with medications: Plan: A1c 10.9 on 07/25/2024 Patient not using insulin due to cost/insurance issues In ER Initial BSG 518, VBG pH: 7.27 Repeat at 1505: pH: 7.33 Repeat at 1557 gluc: 421 Difficult obtaining saline lock and IV insulin drip just started at 1557 Following DKA protocol. Insulin Drip Pharmacy glycemic consult Serial BMP, phosphorus, magnesium labs #PAF #Hx of Mechanical Aortic Valve Replacement Anticoagulated on warfarin Pt not taking as prescribed INR 1.0 on admission Start Lovenox bridge. Increase warfarin to 10mg daily. 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 Was discharged with 1 month supply of Plavix. Will need to discuss with vascular surgery to determine the recommended course length and determine if Plavix needs restarted Continue aspirin, warfarin #Pressure ulcer left heel 07/2024 treated for possible infection with linezolid and Levaquin Area appears healing well without noted infection at this time Attempted to go f/u wound clinic however pt without insurance so decided to forgo appointment #HTN Previously on lisinopril 5mg daily. Hasn't been taking Monitor BP and may need to consider resuming #HLD Continue statin #History TIA Continue aspirin, rosuvastatin, warfarin DVT Prophylaxis Warfarin with Lovenox bridge Admit telemetry DNR/DNI as per discussion with pt Follows with Dr Ortiz for routine care Pt was seen and care coordinated with Dr Sanchez. See addendum I spent a total of 82 minutes reviewing notes, outpatient records, labs, medication, coordinating, documenting and providing care for this patient excl uding time spent in the performance of separately billed services and excluding time spent by another provider/QHP. History of Present Illness Chief Complaint: diarrhea Primary Care Provider: Anabel Ortiz MD Patient is 64-year-old male with PMH HTN, HLD, uncontrolled DM II, GERD, mechanical aortic valve replacement on 2022, presented to ER with c/o ongoing diarrhea. Per inpatient chart review recent [facility] hospitalization on 07/24/24- 07/31/2024 for left heel ulcer possibly infected, Influenza A and concern for CAP, acute hypoxic respiratory failure and was initially treated with Zosyn. 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 ID consulted and discharged on linezolid and Levaquin. Patient was discharged on Plavix, aspirin, warfarin with Lovenox bridge. Discharged from [facility] on 08/11/24. Patient states was having diarrhea with 5-10 episodes loose stools a day. Per review of [facility] ER visit on 09/11/2024 for ongoing diarrhea x 3 weeks at that time. 09/11/2024 stool culture + norovirus, positive C. difficile gene, positive C. difficile toxin and CT abdomen pelvis with diffuse prominent mucosal thickening throughout entire colon, consistent with inflammatory infectious colitis. Patient was given dose of Dificid and discharged with prescription for Dificid. Unfortunately patient reports he has not been taking his medications secondary to not able to afford. He never started the Dificid. He reports continued frequent stools reporting 5-10 stools daily. He states recently have been alternating beef tween liquid and soft stools. Denies abdominal pain. Reports eating seems to make him have more diarrhea. Denies fever/chills, N/V, melena, hematochezia. Patient also reports not taking other prescribed medications regularly secondary to insurance and cost issues. Previously on lisinopril 5 mg daily however has not been taking "for awhile". When seen by PCPs office in August was prescribed Novolin 70/30 33 units with breakfast and dinner however has not been using regular as prescribe as trying to "stretch out his supply" and takes intermittently. 08/09/2024 given prescription for Plavix for 30-day supply. Patient states has been out of this medication. He has been taking aspirin 81 mg daily. States has not been taking his warfarin as prescribed and is trying to "stretch" his prescription supply so has been taking intermittently. Per outpatient anticoagulation note on 10/03/2024. 10/02/2024 INR: 0.9. and at that time had reported was not taking Coumadin as instructed and he was instructed is to take 15 mg every Sunday and 7.5 mg all other days. History C. difficile 05/2016 and was treated with Flagyl. Denies REZA, dizziness, syncope, CP, SOB, palpitations, cough, sore throat, rhinorrhea, extremity wea kness, extremity edema, rashes, urinary symptoms. Per review of outpatient pharmacy fill: In July prescribed duloxetine 30 mg daily for 30-day supply. In July was prescribed gabapentin 300 mg 3 times daily for a 1 month supply. When discharged from rehab was prescribed pregabalin 100 mg twice daily for 30- day supply. Allergies Allergy/AdvReac Type Severity Reaction Status Date / Time erythromycin base AdvReac Intermediate Abdominal Verified 10/10/24 15:06 Pain Home Medications Medication Instructions Recorded Confirmed Type aspirin 81 mg tablet,delayed 81 mg PO DAILY #30 tabs 06/02/24 10/10/24 Rx release insulin NPH-regular 70-30 U-100 33 unit (0.33 mL) subcut BID #15 mL 06/02/24 10/10/24 Rx insulin 100 unit/mL subcutaneous pen (Novolin 70-30 FlexPen U-100 Insulin) pen needle, diabetic 32 gauge x #50 ea 06/02/24 07/24/24 Rx 5/32" (Pen Needle) rosuvastatin 40 mg tablet 40 mg PO QAM #30 tabs 06/02/24 10/10/24 Rx lisinopril 5 mg tablet (Zestril) 5 mg PO QAM #30 tabs 06/06/24 10/10/24 Rx gabapentin 300 mg capsule 300 mg PO TID #90 caps 07/08/24 10/10/24 Rx clopidogrel 75 mg tablet 75 mg PO QAM #30 tabs 07/29/24 10/10/24 Rx pregabalin 100 mg capsule 100 mg PO BID 10/10/24 10/10/24 History warfarin 7.5 mg tablet 7.5 mg PO UD 10/10/24 10/10/24 History Past Med/Surg History Problem List C. 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 occlusive disease Hypocalcemia Acute hypoxic respiratory failure Ischemic rest pain of lower extremity Unstageable pressure ulcer of heel Acute hyperglycemia (Acute) Elevated troponin (Acute) Left foot pain (Acute) Elevated lactic acid level (Acute) Tachycardia (Acute) Influenza A (Acute) Pneumonia (Acute) Sepsis (Acute) Chronic anticoagulation Spinal stenosis, lumbar region with neurogenic claudication Ambulatory dysfunction (Acute) Hip pain, left (Acute) Lumbar radiculitis Medical History GERD (gastroesophageal reflux disease) ILD (interstitial lung disease) H/O TIA (transient ischemic attack) and stroke Stroke-like episode - History of TIA vs vertigo per cardio records 11/2021 (on Plavix) - 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 Repeat head CTA 08/2022 was unremarkable and no left ICA aneurysm identified Hypertension Hyperlipidemia PFO (patent foramen ovale) Small per 11/2021 [facility] imaging per cardio records Barretts esophagus Per records Gallbladder sludge reason for upcoming procedure Arthritis, gouty Hx of kidney disease PER PATIENT, ACUTE KIDNEY DISEASE 05/2022>WNL CURRENTLY GERD (gastroesophageal reflux disease) "silent/mild" Diabetes mellitus, type 2 Hx of pancreatitis HOSPITALIZED 05/2022>DKA and acute pancreatitis Aortic valve stenosis Severe per 05/2022 ECHO (PK 0.78-1.0cm2; AV mean PG 23.2mmHg; AV max velocity 3.684m/s) Chronic obstructive pulmonary disease MILD>NO INHALERS PER PATIENT Surgical History H/O mechanical aortic valve replacement Nausea and vomiting after administration of anesthetic agent H/O arthroscopic knee surgery + GANGLION CYST REMOVED>RT History of esophagogastroduodenoscopy (EGD) History of colonoscopy History of tooth extraction History of tonsillectomy and adenoidectomy History of cataract surgery RT/LEFT History of foot surgery RT History of carpal tunnel surgery LEFT Family History Other Diabetes Heart disease No family history of adverse response to anesthesia Social History Smoking Status: Former smoker Tobacco Type: Cigarettes Cigarettes Per Day: 4 CIG DAILY>ADVISED; Second Hand Exposure: No; Do You Dip or Chew Tobacco: No; Hx Alcohol Use: No Hx Substance Use: No Preferred Language: Kinyarwanda Communication Ability: Effective School Age Program Associate Required: No Beliefs That Will Affect Care: None marital status: Unknown Current Living Situation: Alone Current Living Situation Comment: son Other Information That Helps Us Care for You: No Feels Safe at Home: Yes Safety Concerns: Feels Safe At This Time Assistive Devices: Walker Review of Systems Review of Systems: All systems reviewed & are unremarkable except as noted in HPI & below Physical Exam Physical Exam: General: no distress, thin elderly male Head: normocephalic, atraumatic Eyes: conjunctiva non-injected, anicteric ENT: normal inspection external ears, nose, mucous membranes dry Neck: supple, trachea midline Lungs: clear, no respiratory distress, no wheezing/rhonchi/rales CV: RRR, no murmur, no pretibial edema Abd: normal BS, soft, non-tender Ext: no cyanosis, no calf tenderness; Left foot: small ulcer calcaneus without surrounding erythema or discharge Neuro: A&O x 3, no focal deficits noted, normal affect Skin: warm, dry, right groin with small scab and left groin with small scab. no discharge or surrounding erythema noted Results & Data Results & Data Vital Signs (Past 12 Hours) Vital Signs Temp Pulse Resp BP Pulse Ox O2 Del Method 10/10/24 14:42 139/74 10/10/24 14:39 94 H 14 97 10/10/24 14:33 97 H 97 10/10/24 14:31 96/67 L 10/10/24 14:21 96 10/10/24 14:03 97 10/10/24 14:01 142/70 H 10/10/24 13:42 98 Room Air 10/10/24 13:39 94 H 14 97 10/10/24 13:30 95 H 14 97 10/10/24 13:23 95 H 10/10/24 13:21 97 H 97 10/10/24 13:17 36.8 C 96 H 20 159/86 H 97 Room Air 10/10/24 13:12 159/86 H Laboratory Results Short CBC 10/10/24 10/10/24 Range/Units 13:26 15:33 WBC 10.26 9.35 (4.8-10.8) K/ul Hgb 15.8 14.0 (14.0-18.0) g/dl Hct 45.5 39.9 L (42.0-52.0) % Plt Count 165 134 (130-400) K/uL BMP 10/10/24 10/10/24 10/10/24 13:26 15:33 19:23 Sodium 130 L 132 L 136 Potassium 4.9 4.9 4.0 Chloride 95 L 100 104 Carbon Dioxide 18 L 18 L 22 BUN 19 19 17 Creatinine 1.21 1.20 1.05 Glucose 498 H* 459 H* 159 H Calcium 9.6 8.7 9.2 Liver Function 10/10/24 10/10/24 Range/Units 13:26 15:33 Total Bilirubin 0.6 0.5 (0.2-1.0) mg/dl AST 11 L 7 L (13-39) U/L ALT 9 7 (7-52) U/L Alkaline Phosphatase 132 H 111 H (34-104) U/L Albumin 4.1 3.5 (3.4-5.0) gm/dl Urine 10/10/24 Range/Units 13:07 Urine Color Yellow Urine Appearance Clear (Clear) Urine pH 5.5 (4.5-7.5) Ur Specific [place] 1.025 (1.000-1.030) Urine Protein 1+ H (Negative) Urine Glucose (UA) 3+ H (Negative) Diagnostic Findings Chest X-Ray 10/10/24 13:25 XR chest 1V portable HISTORY: 64 years-old Male weakness acute weakness COMPARISON: 07/24/2024 TECHNIQUE: AP view chest FINDINGS: Cardiac silhouette is upper limits of normal in size. Median sternotomy. No pneumothorax, pleural effusion or overt pulmonary edema. Mild chronic interstitial coarsening. Patchy bibasilar densities are similar to prior. Right shoulder rotator cuff calcific tendinosis. Bones appear grossly intact. IMPRESSION: Bibasilar densities are similar in appearance to the study from 07/24/2024 and may represent atelectasis/scarring versus pneumonitis. ACT 112: Negative or not required by law. The above report was generated using voice recognition software. It may contain grammatical, syntax or spelling errors. Electronically signed by: Reece Catalan M.D. 10/10/2024 2:47 PM Abdomen/Pelvis CT 10/10/24 13:26 CT OF THE ABDOMEN AND PELVIS WITHOUT CONTRAST CLINICAL HISTORY: Diarrhea, untreated c.diff, hyperglycemia. COMPARISON STUDY: CT of the abdomen and pelvis September 11, 2024. TECHNIQUE: Axial images of the abdomen and pelvis were obtained without IV contrast. Images were reviewed in the axial, sagittal, and coronal planes. Automated exposure control was utilized for the study. A dose lowering technique was utilized adhering to the principles of ALARA. FINDINGS: Subpleural reticulation, groundglass opacities and bronchiectasis within the lung bases are similar to prior CT. This represents interstitial lung disease. No pneumatosis, free air or portal venous gas is present. Evaluation of the abdomen and pelvis is suboptimal on this unenhanced examination. Hypodense foci within the medial segment of the left hepatic lobe favor steatosis. Spleen, adrenal glands, kidneys and pancreas are unremarkable. There is no hydronephrosis. No biliary or pancreatic ductal dilatation. Ascites shown on prior CT has resolved. There is extensive aortoiliac atherosclerotic plaque. No evidence for a bowel obstruction. A moderate amount of stool within the colon and rectum is noted. Diffuse colonic wall thickening is present. This has improved when compared to CT of September 11, 2024. There is no fluid collection is suggest abscess. Appendix is normal. There is no lymphadenopathy. IMPRESSION: 1. Diffuse clonic wall thickening, improved when compared to CT of September 11, 2024. This is suggestive of an infectious etiology and would be consistent with the provided history of C. difficile colitis. 2. No bowel obstruction. Moderate amount of poorly formed stool within the colon and rectum. ACT 112: Negative or not required by law. Electronically signed by: Cassius Perez M.D. 10/10/2024 2:52 PM Supervising Physician Co-Signing Physician Notes Pt was seen and examined by myself, Margot Sanchez MD on the day of service. Care was coordinated with Irais Wilder PA-C. 64yoM with DKA, pseudohyponatremia, subtherapeutic INR in setting of mechanical aortic valve, PAF and Hx of iliac artery thrombus. unclear if pt on plavix. Compliance with medications questionable On exam resting comfortably, no acute distress DKA protocol Resume home meds Further discussion with vascular Surgery needed to determine if pt should be on triple therapy (warfarin, aspirin and plavix) Otherwise as above. I spent a total [id number] coordinating, documenting, and providing care for this patient excluding time spent in the performance of separately billed services
[2024-10-10] MEDS: SODIUM CHLOR 0.45% + 20MEQ KCL 20 MEQ/1,000 ML BAG IV SCH (15:37)
[2024-10-10 15:52] LABS: Basophils # (auto) 0.02 K/uL (0.00-0.20); Basophils % (auto) 0.2 %; Eosinophils # (auto) 0.04 K/uL (0.00-0.50); Eosinophils % (auto) 0.4 %; Hematocrit (blood only) 39.9 % (42.0-52.0); Immature Granulocytes # (auto) 0.05 K/uL (0.01-0.20); Immature Granulocytes % (auto) 0.5 %; Lymphocytes # (auto) 1.22 K/uL (1.20-3.40); Mean Corpuscular Hemoglobin 29.7 pg (25.0-34.0); Mean Corpuscular Hgb Conc 35.1 g/dL (32.0-36.0); Mean Corpuscular Volume 84.7 fL (80.0-100.0); Mean Platelet Volume 9.9 fL (9.4-12.4); Monocytes # (auto) 0.71 K/uL (0.11-0.59); Monocytes % (auto) 7.6 %; Neutrophils # (auto) 7.31 K/uL (1.40-6.50); Neutrophils % (auto) 78.3 %; Platelet Count 134 K/uL (130-400); RDW Coefficient of Variation 15.4 % (11.5-14.5); RDW Standard Deviation 47.6 fL (36.4-46.3); Red Blood Count 4.71 M/uL (4.70-6.10); White Blood Count 9.35 K/ul (4.8-10.8)
[2024-10-10] MEDS: INSULIN REGULAR 250 UNITS in SODIUM CHLORIDE 0.9% 247.5 ML IV SCH (15:57)
[2024-10-10] MEDS: NovoLIN-R BOLUS FROM BAG IV ONE (16:00)
[2024-10-10] MEDS: SODIUM CHLORIDE 0.9% 1,000 ML IV ONE (16:02)
[2024-10-10 16:14] LABS: Albumin Globulin Ratio 1.2 (0.9-2); Albumin Level 3.5 gm/dl (3.4-5.0); BUN Creatinine Ratio 15.8 (10-20); Bilirubin,Total 0.5 mg/dl (0.2-1.0); Calcium 8.7 mg/dl (8.6-10.3); Creatinine Clr Calc Pharmacy 51.4 ml/min; Globulin 2.9 gm/dl (2.5-4.0); Magnesium 1.8 mg/dl (1.7-2.4); Phosphorus 3.5 mg/dl (2.5-4.9); Potassium 4.9 mmol/L (3.5-5.1); Total Protein 6.4 gm/dl (6.0-8.3)
[2024-10-10 16:16] LABS: Estimated Average Glucose 289 mg/dl; Hemoglobin A1C 11.7 % (4.5-5.6)
[2024-10-10 16:25] LABS: Prothrombin Time 11.3 Seconds (9.0-12.0)
[2024-10-10] MEDS ORDERED: ONDANSETRON INJ 2 MG/ML 2 ML VIAL IV PRN (18:25)
[2024-10-10] MEDS ORDERED: PHARMACY GLYCEMIC MGMT CONSULT PRN (18:25)
[2024-10-10] MEDS ORDERED: ENOXAPARIN 1 MG/KG SQ SCH (18:25)
[2024-10-10] MEDS ORDERED: DKA GOAL RANGE 150-250 mg/dl ONE (18:25)
[2024-10-10] MEDS: DKA GOAL RANGE 150-250 mg/dl ONE (19:14)
[2024-10-10] MEDS: STAT IV Infusion **Titration per Protocol STA (19:14)
[2024-10-10] MEDS: ENOXAPARIN INJ 60 MG/0.6 ML SYR SQ SCH (19:18)
[2024-10-10] MEDS: PENDING 1/2NSS+20mEq KCL IVF SCH (19:19)
[2024-10-10 19:55] LABS: BUN Creatinine Ratio 16.2 (10-20); Calcium 9.2 mg/dl (8.6-10.3); Creatinine Clr Calc Pharmacy 61.9 ml/min; Magnesium 1.8 mg/dl (1.7-2.4); Phosphorus 2.5 mg/dl (2.5-4.9)
[2024-10-10] MEDS: D5W AND 1/2NSS + 20MEQ KCL 20 MEQ/1,000 ML BAG IV SCH (20:14)
[2024-10-10] MEDS: INSULIN ASPART PER UNIT CHARGE SC SCH (20:17)
[2024-10-10] MEDS: PENDING D5 1/2NS+20mEq KCL IVF SCH (20:32)
[2024-10-10] MEDS: FIDAXOMICIN 200 MG TAB PO SCH (21:05)
[2024-10-10] MEDS: GABAPENTIN 300 MG CAP PO SCH (21:05)
[2024-10-10] MEDS: LANTUS PER UNIT CHARGE SC ONE (21:35)
--- OUTSIDE RECORDS SUMMARY | 2024-10-10 23:07 | External Medical Summary ---
Author Name Unknown Address Unknown Organization [id number]:[facility] [place] - [address] [place] [id number] Laboratory Report Ordering Provider Test Date Status PETRA GOMES 09/08/2024 11:24:00 Final Warfarin Therapy
INR: 2 .0-3.0 conventional anticoagulation
INR: 2.5- 3.5 high intensity anticoagulation Observation Date Value Abnormality Reference (Units ) Status PT 09/08/2024 11:24:00 15.3 Above high normal 11 .6-15.2 (seconds) Final INR 09/08/2024 11:24:00 1.2 0.8-1.2 Final Performing Location [facility] [place] - [address] [place] [id number]
--- OUTSIDE RECORDS SUMMARY | 2024-10-10 23:07 | External Medical Summary | Summary of Care ---
Author Name Unknown Organization [facility] Address [address] [facility] [place] [address] Phone [phone] Care Team Providers Care Interventional Nurse Name Role Phone Anabel Ortiz MD Primary Care Provider Reason for Visit * Reason Comments Dosage Adjustment Via Phone (anticoag Cl inic) Encounter Details Date Type Department Care Team (Latest Contact Info) Description 09/08/2024 5:30 PM EST Anticoagulation Pharmacy, [facility] [address] [place] [address] [facility] [place] [address] History of mechanical aortic valve replacement*; S/P aortic valve replacement Allergies Active Allergy Reactions Criticality Noted Date Comments Erythromycin 07/06/1997 Stomach pain documented as of this encounter (statuses as of 09/08/2024) Medications MULTIVITAMINS PO TABS Take 1 Tablet [...] DAY DIRECTED. 100 Strip 5 9 Active Clopidogrel Bisulfate 75 MG Oral Tablet [...] abdomen pain 90 Capsule 2 3 Active Omeprazole 20 MG Oral Capsule [...] in the morning. 4 Active Warfarin Sodium 7.5 MG Oral Tablet (Coumadin)Indica tions:S/P aortic valve replacement Take 1 Tablet by mouth in the morning. Per MTD instructions. 30 Tablet 5 5 Active NovoLIN 70/30 FlexPen (70-30) 100 UNIT/ML Suspension Pen-injectorIndi cations:Type 2 diabetes mellitus with hemoglobin A1c goal of less than 7.0% (HCC) Inject 33 units under the skin at breakfast and 22 units at dinner. 60 mL 3 5 Active Pregabalin 100 MG Oral Capsule (Lyrica)Indicati ons:Diabetic peripheral neuropathy (HCC) Take 1 Capsule by mouth in the morning and 1 Capsule before bedtime. 60 Capsule 2 5 Active documented as of this encounter (statuses as of 09/08/2024) Active Problems Problem Noted Date Diagnosed Date Diabetic peripheral neuropathy 08/13/2024 Aortoiliac occlusive disease 08/13/2024 Overview (08/13/2024): Bilateral stents, 07/2024 Ambulatory dysfunction 08/13/2024 Diabetic ulcer of left foot 08/13/2024 Spinal stenosis, lumbar region with neurogenic c laudication 08/13/2024 Hip pain, left 05/28/2024 History of mechanical aortic valve replacement 0 03/17/2024 Food insecurity 11/19/2023 Overview: Per [facility] Protocol Type 2 diabetes mellitus wit h diabetic mononeuropathy, with long-term current use of insulin 10/18/2023 Encounter for dental examination 04/24/2023 S/P aortic valve replacement 04/23/2023 Nonrheumatic aortic valve stenosis 04/23/2023 COPD, group B, by GOLD 2017 classification 06/19 Overview: Per COPD GOLD Classification Medical home patient encounter 05/29/2022 Uncontrolled type 2 diabetes mellitus with hyper glycemia 04/04/2022 TIA (transient ischemic attack) 01/19/2022 Gastroesophageal reflux disease without esophagi tis 01/19/2022 History of acute pancreatitis 01/19/2022 Centrilobular emphysema 12/22/2021 ILD (interstitial lung disease) 12/22/2021 Current use of insulin 03/01/2020 Pulmonary nodules/lesions, multiple 06/07/2016 Overview (06/15/2021): Seen on CT scan 06/06/16. Largest measuring 7.2 mm LLL Stable 06/2021. One 5mm nodule slightly larger, recommend 1 year f/u. Gouty arthropathy 02/24/2015 Type 2 diabetes mellitus wit h hemoglobin A1c goal of less than 7.0% 11/05/2013 Overview (11/02/2015): ICD-10 update of inactive term HTN, goal below 130/80 11/04/2013 Dyslipidemia, goal LDL below 100 11/04/2013 Personal history of alcoholism 05/04/2012 Overview (05/04/2012): resolved TENOSYNOVITIS FOOT-ANKLE 08/21/2003 Keratoderma, acquired 10/04/2002 Dermatophytosis of foot 10/04/2002 Other allergic rhinitis 10/02/2002 Overview (05/01/2017): ICD-10 update of inactive term documented as of this encounter (statuses as of 09/08/2024) Resolved Problems Problem Noted Date Diagnosed Date Resolved Date Valvular insufficiency 04/23/202308/13 Valvular heart disease 04/23/202308/13 Malnutrition of moderate degree 04/20/2023 05/09/2023 Chronic kidney disease 04/04/202209/28 Aortic valve stenosis 11/08/20202024 HTN, goal below 140/90 12/20/201508/13 Overview: Per HTN Protocol HTN, goal below 140/80 11/06/201312/22 Overview: Per [...] Per Obesity protocol #1 Gout 05/04/2012 02/24/2015 Left foot pain 05/02/2012 08/13/2024 Dyslipidemia, goal to be determined 06/24/2009 11/04/2013 [...] as of this encounter (statuses as of 09/08/2024) Immunizations Name Administration Dates Next Due COVID-19 mRNA, LNP-s, No Pre serve, 2-Dose Series (Moderna) 11/25/2020,10/28/2020 Hepatitis B, 20+ yrs 05/19/2015,11/19/2014,05/06 PPD 05/06/2014,05/18/2009 Pneumococcal Conjugate Vacci ne, 20-valent ([id number]) 01/19/2022 Pneumococcal Polysaccharide PPV23 (Pneumovax) 08/22/2013 Seasonal [...] 08/02/2006 TDAP (age 10 and older)(Boostrix) 03/07/2013 TDAP, Age 7 and older, IM (Adacel) 08/13/2024 Zoster Vaccine Recombinant (Shingrix) 01/19/2022 ,05/16/2021 documented as of this encounter Social History Tobacco Use Types Packs/Day Years Used Date Smoking Tobacco: Former Cigarettes 0.5 48 Passive Smoke Exposure: Past [...] ages 0-17 years) Not on file 10/16/2023 Food Insecurity Answer Date Recorded Within the past 12 months, y ou worried that your food would run out before you got the money to buy more. Sometimes true Within the past 12 months, t he food you bought just didn't last and you didn't have money to get more. Sometimes true 03/2024 Do you need food for this week? 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 (17 years old or [...] Jil Sebastian LPN documented in this encounter Progress Notes * Amna Ruffin, [facility] - 09/08/2024 3:25 PM EST Noted, patient is to take 7.5 mg warfarin daily until results. Follow up in 1 day with results. Amna Ruffin, Pharm D, [facility] Clinical Pharmacist 09/08/2024, 3:25 PM * Amber Gomez CPhT - 09/08/2024 3:22 PM EST Spoke with Florencia in Client Service, will not have result back today before 4pm, specimen was droppedat a satellite office and was just picked up by the scalehouse attendant, not even at the lab yet, patient will need a dose for tonight, [facility] phone call scheduled for tomorrow morning. Amber Gomez CPhT, [place] Sludge Control Attendant II [facility]) documented in this encounter Plan of Treatment Upcoming Encounters Date Type Department Care Team (Late st Contact Info) Description 09/09/2024 7:00 AM EST Anticoagulation Pharmacy, [facility] [address] [place] [address] [facility] [address] [place] [address] 11/13/2024 3:20 PM EDT Office Visit Pharmacy, [facility] [address] [place] [address] [facility] [address] [place] [address] 01/14/2025 12:20 PM EDT Office Visit Family Practice [facility] [address] [place] [address] Anabel Ortiz MD [address] [place] [address] Health Maintenance Due Date Last Done Comments Alpha-1 Antitrypsin 01/02/1980 Cologuard 2007 Fecal Occult Blood Test 2007 Sigmoidoscopy 2007 Albumin/Creatinine Ratio 10/17/2024 024, 12/12/2021, 12/14/2016, Additional history exists Diabetic Eye Exam 10/17/2024 10/18/2023, , 06/14/2017, Additional history exists Diabetic Foot Exam 10/17/2024 10/18/2023, 0 01/19/2022, 03/01/2020, Additional history exists HbA1c 11/05/2024 05/07/2024, 0407/2023, 04/20/2023, Additional history exists Depression Screening 05/07/2025 05/07/2024 O2 ASSESSMENT COMPLETED IN PAST YEAR FOR COPD 06/18/2025 06/18/2024 GFR 08/08/2025 08/08/2024, 07/10, 10/18/2023, Additional history exists Colonoscopy 06/12/2026 06/12/2016, 06/12/2016 Colorectal Cancer Screening 06/12/2026 DTap/Tdap Vaccines (3 - Td or Tdap) 08/13/2034 08/13/2024, 03/07/2013, 08/02/2006, Additional history exists Hepatitis B Vaccine Completed 05/19/2015, 11/19/2014, 05/06/2014 COVID-19 Vaccine Discontinued 11/25/2020, 10/28/2020 Pneumococcal Vaccine: 50+ Years Completed 01/19/2022, 08/22/2013 Zoster Vaccines Completed 01/19/2022, 05/16/2021 Influenza Vaccine (FLU shot) Completed 05/07/2024, 05/09/2023, 04/04/2022, Additional history exists HIV Screening Discontinued HPV (Gardasil) Vaccine Aged Out No lo nger eligible based on patient's age to complete this topic MENINGOCOCCAL (MENACTRA/MENVEO) Aged Out No longer eligible based on patient's age to complete this topic Meningitis B Vaccine (Bexsero/Trumemba) Aged Out No longer eligible based on patient's age to complete this topic documented as of this encounter Medical Devices Implanted Type Area Automotive Parts Coordinator Device Identifier Shelf Expiration Date Model / Serial / Lot Cath Thermodilution 6fr - [id number] Implanted:Qty: 1 on 04/20/2023 at [facility] [employer] [id number] 11/13/2024 [id number] / / [id number] Valve Aortic Mech 21mm - [id number] - [id number] Implanted:Qty: 1 on 04/23/2023 by Zbigniew Linder MD at OR [facility] N/A: Heart [employer] [id number] 09/04/2028 ONXACE-2 [id number] / [id number] Suture Steel 6 B&S19 M654g - [id number] Implanted:Qty: 8 on 04/23/2023 by Zbigniew Linder MD at OR [facility] N/A: Sternum JNJ : [employer] 12/07/2027 [id number] / / [id number] documented as of this encounter Visit Diagnoses Diagnosis History of mechanical aortic valve replacement- Primary Heart valve replaced by other means S/P aortic valve replacement Heart valve replaced by other means documented in this encounter Advance Directives * [...] and were consensually agreed upon. Care Teams Interventional Nurse Relationship Specialty Start Date End Date Anabel Ortiz MD [address] [place] [address] PCP - General Internal Medicine 07/25/24 documented as of this encounter
--- OUTSIDE RECORDS SUMMARY | 2024-10-10 23:07 | External Medical Summary ---
Author Name Unknown Address Unknown Organization [id number]:LABORATORY [facility] - [address] [place] [address] Laboratory Report Ordering Provider Test Date Status PETRA GOMES 09/18/2024 10:30:00 Final Warfarin Therapy
INR: 2 .0-3.0 conventional anticoagulation
INR: 2.5- 3.5 high intensity anticoagulation Observation Date Value Abnormality Reference (Units ) Status PT 09/18/2024 10:30:00 28.8 Above high normal 11 .6-15.2 (seconds) Final INR 09/18/2024 10:30:00 2.7 Above high normal 0. 8-1.2 Final Performing Location LAB[facility]ORY [facility] - [address] [place] [address]
--- OUTSIDE RECORDS SUMMARY | 2024-10-10 23:07 | External Medical Summary | Summary of Care ---
Author Name Unknown Organization [facility] Address [address] [place] [facility] [place] [address] Phone [phone] Care Team Providers Care Project Manager Industrial Name Role Phone Anabel Ortiz MD Primary Care Provider Reason for Visit * Reason Comments Dosage Adjustment Via Phone (anticoag Cl inic) Encounter Details Date Type Department Care Team (Latest Contact Info) Description 09/19/2024 7:00 AM EDT Anticoagulation Pharmacy, [facility] [address] [place] [address] [facility] [address] [facility] [place] [address] History of mechanical aortic valve replacement*; S/P aortic valve replacement Allergies Active Allergy Reactions Criticality Noted Date Comments Erythromycin 07/06/1997 Stomach pain documented as of this encounter (statuses as of 09/19/2024) Medications MULTIVITAMINS PO TABS Take 1 Tablet by mouth every morning. Active Calcium Carbonate Antacid 500 MG Oral Tablet Chewable Take 1 Tablet by mouth as needed. As needed 5 Active ONETOUCH DELICA LANCETS 33G MISC TEST SUGAR DAILY 100 Each 5 8 Active ONETOUCH ULTRA BLUE STRPIndications :Type 2 diabetes mellitus with hemoglobin A1c goal of less than 7.0% (HCC) USE UP TO 4 TIMES A DAY DIRECTED. 100 Strip 5 9 Active Clopidogrel Bisulfate 75 MG Oral Tablet (pLAVix)Indicat ions:TIA (transient ischemic attack) Take 1 Tablet (75 [...] Omeprazole 20 MG Oral Capsule Delayed Release (PriLOSEC)Indic ations:Gastroes ophageal reflux disease without esophagitis Take 1 Capsule by mouth in the morning. 1 hour before the first meal of the day.. 90 Capsule 1 4 Active Rosuvastatin Calcium 40 MG Oral Tablet (Crestor)Indica tions:Dyslipide stewart, goal LDL below 70 Take 1 Tablet by mouth in the morning. 90 Tablet 4 Active Aspirin 81 MG Oral Tablet ChewableIndicat ions:History of mechanical aortic valve replacement Chew 1 Tablet by mouth in the morning with food 72 Tablet 4 4 Active Lisinopril 5 MG Oral Tablet (Prinivil) Take 1 Tablet by mouth in the morning. 4 Active NovoLIN 70/30 FlexPen (70-30) 100 UNIT/ML Suspension Pen-injectorInd ications:Type 2 diabetes mellitus with hemoglobin A1c goal of less than 7.0% (HCC) Inject 33 units under the skin at breakfast and 22 units at dinner. 60 mL 3 5 Active Pregabalin 100 MG Oral Capsule (Lyrica)Indicat ions:Diabetic peripheral neuropathy (HCC) Take 1 Capsule by mouth in the morning and 1 Capsule before bedtime. 60 Capsule 2 5 Active Warfarin Sodium 7.5 MG Oral Tablet (Coumadin)Indic ations:S/P aortic valve replacement Take 1-2 Tablets by mouth in the morning. Per [facility] instructions. 60 Tablet 5 5 Active Warfarin Sodium 7.5 MG Oral Tablet (Coumadin)Indic ations:S/P aortic valve replacement Take 1 Tablet by mouth in the morning. Per MTD instructions. 30 Tablet 5 5 09/20/19 25 Discontinu ed(Refill) documented as of this encounter (statuses as of 09/19/2024) Active Problems Problem Noted Date Diagnosed Date [...] as of this encounter (statuses as of 09/19/2024) Resolved Problems Problem Noted Date Diagnosed Date [...] as of this encounter (statuses as of 09/19/2024) Immunizations Name Administration Dates Next Due COVID-19 mRNA, LNP-s, No Pre serve, 2-Dose Series (Moderna) 11/25/2020,10/28/2020 Hepatitis B, 20+ yrs 05/19/2015,11/19/2014,05/06 PPD 05/06/2014,05/18/2009 Pneumococcal Conjugate Vacci ne, 20-valent ([id number]) 01/19/2022 Pneumococcal Polysaccharide PPV23 (Pneumovax) 08/22/2013 Seasonal [...] Industry Job Start Date Job End Date [employer] work Not on file Not on [...] 2:13 AM BRITTANYT Jil Sebastian LPN * Do you have serious difficulty walking or climbing stairs? (5 years old or older) Answer Date of Assessment Author No 04/20/2023 3:19 PM EDT Sulema Chandler RN * Do you have difficulty [...] in this encounter Progress Notes * Amna Ruffin RPh - 09/19/2024 12:54 PM EDT Images from the original note were not included. -Medication Therapy Disease Management - Anticoagulation Patient: Derek Tristan | : 1960 Subjective Contacts Contact Date/Time Type Contact Phone/Fax 09/19/2024 05:02 AM EDT Email SMS () [phone] Patient not accepting updates 09/19/2024 10:31 AM EDT Phone (Outgoing) CrumptonDerek raza (Self) [phone] (M) Patient-Reported Symptoms: Objective Current Warfarin Dose As of 09/19/2024 Warfarin maintenance plan: 15 mg (7.5 mg x 2) every Tue; 7.5 mg (7.5 mg x 1) all other days INR Result As of 09/19/2024 INR goal: 1.5-2.0 INR used for dosin.7 (09/18/2024) Assessment & Plan Warfarin Plan As of 09/19/2024 Full warfarin instructions: 3/14: 7.5 mg; 3/15: 7.5 mg; 3/16: 7.5 mg; 3/17: 7.5 mg; 3/18: 15 mg; 3/19: 7.5 mg; 3/20: 7.5 mg; 3/21: 7.5 mg; Otherwise 15 mg every Tue; 7.5 mg all other days Next INR check: 10/02/2024 Repeat PT/INR in 2 week(s) on 10/02 GML Weekly dose: not changed Additional Dosing Information: I spent a total of 10-19 minutes (exact time 10 mins) on the date of service in preparation, delivery, and documentation of the care provided to Derek Tristan excluding any time spent in the performance of separately billed services or time spent by another provider/QHP. Amna Ruffin RPh Clinical Pharmacist 09/19/2024, 1:23 PM documented in this encounter Plan of Treatment Upcoming Encounters Date Type Department Care Team (Late st Contact Info) Description 10/02/2024 7:00 AM EDT Anticoagulation Pharmacy, [facility] [address] [place] [address] [facility] [address] [place] [address] 10/02/2024 7:25 AM EDT Laboratory Lab Mobile Phlebotomy [address] [place] [address] [facility] Mobile Home Draw [address] [place] [address] [place] [address] 11/13/2024 3:20 PM EDT Office Visit Pharmacy, [facility] [address] [place] [address] [place], [facility] [address] [place] [address] 01/14/2025 12:20 PM EDT Office Visit Family Practice [facility] [address] [place] [address] Anabel Ortiz MD [address] [place] [address] Health Maintenance Due Date Last Done Comments [...] this encounter Medical Devices Implanted Type Area Doctor Of Dental Surgery Device Identifier Shelf Expiration Date Model / Serial / Lot Cath Thermodilution 6fr - [id number] Implanted:Qty: 1 on 04/20/2023 at [facility] [employer] [id number] 11/13/2024 [id number] / / [id number] Valve Aortic Mech 21mm - [id number] - [id number] Implanted:Qty: 1 on 04/23/2023 by Zbigniew Linder MD at [place] [facility] N/A: Heart [employer] [id number] 09/04/2028 ONXACE-2 [id number] / [id number] Suture Steel 6 B&S19 M654g - [id number] Implanted:Qty: 8 on 04/23/2023 by Zbigniew Linder MD at [place] [facility] N/A: Sternum JNJ : [employer] 12/07/2027 [...] 9:24 AM 11/11/2018 2:24 PM This order re flects the patients wishes and were consensually agreed upon. Care Teams Project Manager Industrial Relationship Specialty Start Date End Date Anabel Ortiz MD [address] [place] [address] PCP - General Internal Medicine 07/25/24 documented as of this encounter"
--- OUTSIDE RECORDS SUMMARY | 2024-10-10 23:07 | External Medical Summary | Summary of Care ---
Author Name Unknown Organization [facility] Address [address] [place] [address] Phone [phone] Care Team Providers Care Civil Structural Designer Name Role Phone Anabel Ortiz MD Primary Care Provider Reason for Visit * Reason Onset Date Comments Advice 09/23/2024 Encounter Details Date Type Department Care Team (Late st Contact Info) Description 09/23/2024 Telephone Family Practice [facility] [address] [place] [address] Anabel Ortiz MD [address] [place] [address] Advice Allergies Active Allergy Reactions Criticality Noted Date Comments Erythromycin 07/06/1997 Stomach pain documented as of this encounter (statuses as of 09/25/2024) Medications MULTIVITAMINS PO TABS Take 1 Tablet by mouth every morning. Active Calcium Carbonate Antacid 500 MG Oral Tablet Chewable Take 1 Tablet by mouth as needed. As needed 5 Active ONETOUCH DELICA LANCETS 33G MISC TEST SUGAR DAILY 100 Each 5 8 Active ONETOUCH ULTRA BLUE STRPIndications: Type 2 diabetes mellitus with hemoglobin A1c goal of less than 7.0% ([facility]) USE UP TO 4 TIMES A DAY [...] Tablet (Coumadin)Indica tions:S/P aortic valve replacement Take 1-2 Tablets by mouth in the morning. Per [facility] instructions. 60 Tablet 5 5 Active documented as of this encounter (statuses as of 09/25/2024) Active Problems Problem Noted Date Diagnosed Date [...] as of this encounter (statuses as of 09/25/2024) Resolved Problems Problem Noted Date Diagnosed Date [...] as of this encounter (statuses as of 09/25/2024) Immunizations Name Administration Dates Next Due COVID-19 mRNA, LNP-s, No Pre serve, 2-Dose Series (Moderna) 11/25/2020,10/28/2020 Hepatitis B, 20+ yrs 05/19/2015,11/19/2014,05/06 PPD 05/06/2014,05/18/2009 Pneumococcal Conjugate Vacci ne, 20-valent ([id number]) 01/19/2022 Pneumococcal Polysaccharide PPV23 (Pneumovax) 08/22/2013 Seasonal [...] Industry Job Start Date Job End Date [email or web address] work Not on file Not on file [...] encounter Miscellaneous Notes * Telephone Encounter - Emmie Boateng, [facility] - 09/25/2024 8:44 AM EDT Patient Phone Numbers Attempted to call patient at 8:44 AM but was unable to reach patient or LVM. Will attempt to call patient again this afternoon. Attempted to call patient at 11:50 AM but was unable to reach patient or LVM. Sent [employer] medic message to patient requesting a return call back to the [facility] clinic. [facility] previously scheduled to follow-up with patient on 10/02 so will plan to follow-up then unless patient returns call to clinic sooner. Emmie Boateng PharmD Clinical Pharmacist [facility] 09/25/24, 8:45 AM * Telephone Encounter - Anabel Ortiz MD - 09/24/2024 5:26 PM EDT Amna - see below. can you check in with him? If he truly has no insurance, maybe we can try for a warm handoff with [facility]? * Telephone Encounter - Dee Bonilla LPN - 09/23/2024 9:28 AM EDT Mikayla calling from [facility]. Patient was there for a heal wound today. New patient appt. Patient doesn't have insurance. He is a . Patient more than likely needs a casework specialist to help him get straightened out with insurance. He is lost when it comes to that kind of stuff. manager program management listed is no longer a casework specialist. Please assist and call the patient. * Telephone Encounter - Zuleyma Kearney OSA - 09/23/2024 9:24 AM EDT Reason for patient's call: HARMAN Degroot, discuss patient care Caller was transferred to at the nurse line. documented in this encounter Plan of Treatment Upcoming Encounters Date Type Department Care Team (Late st Contact Info) Description 09/30/2024 7:25 AM EDT Laboratory Lab Mobile Phlebotomy [address] [place] [address] [facility] Mobile Home Draw [facility] [place] [address] 10/02/2024 7:00 AM EDT Anticoagulation Pharmacy, [facility] [address] [place] [address] [facility] [address] [place] [address] 11/13/2024 3:20 PM EDT Office Visit Pharmacy, [facility] [address] [place] [address] [facility] [address] [place] [address] 01/14/2025 12:20 PM EDT Office Visit Family Practice [facility] [address] [place] [address] Anabel Ortiz MD [address] [place] [address] Health Maintenance Due Date Last Done Comments Alpha-1 Antitrypsin 01/02/1980 Cologuard 2007 Fecal Occult Blood Test 2007 Sigmoidoscopy 2007 Albumin/Creatinine Ratio 10/17/2024 024, 12/12/2021, 12/14/2016, Additional history exists Diabetic Eye Exam 10/17/2024 10/18/2023, , 06/14/2017, Additional history exists Diabetic Foot Exam 10/17/2024 10/18/2023, 0 01/19/2022, 03/01/2020, Additional history exists HbA1c 11/05/2024 05/07/2024, 10/07, [...] this encounter Medical Devices Implanted Type Area Intelligent Systems Engineer Device Identifier Shelf Expiration Date Model / Serial / Lot Cath Thermodilution 6fr - [id number] Implanted:Qty: 1 on 04/20/2023 at [facility] [place] [place] [employer] [id number] 11/13/2024 [id number] / / [id number] Valve Aortic Mech 21mm - [id number] - [id number] Implanted:Qty: 1 on 04/23/2023 by Zbigniew Linder MD at OR [facility] [place] N/A: Heart [employer] [id number] 09/04/2028 ONXACE-2 [id number] / [id number] Suture Steel 6 B&S19 M654g - [id number] Implanted:Qty: 8 on 04/23/2023 by Zbigniew Linder MD at OR [facility] [place] N/A: Sternum JNJ : [...] and were consensually agreed upon. Care Teams Civil Structural Designer Relationship Specialty Start Date End Date Anabel Ortiz MD [address] [place] [address] PCP - General Internal Medicine 07/25/24 documented as of this encounter
--- OUTSIDE RECORDS SUMMARY | 2024-10-10 23:07 | External Medical Summary | Summary of Care ---
Author Name Unknown Organization [facility] Address [address] [facility] [place] [address] Phone [phone] Care Team Providers Care Economics Faculty Member Name Role Phone Anabel Ortiz MD Primary Care Provider Reason for Visit * Reason Comments Dosage Adjustment Via Phone (anticoag Cl inic) Encounter Details Date Type Department Care Team (Latest Contact Info) Description 10/03/2024 7:00 AM EDT Antico[facility] Pharm[facility], [facility] [place] [address] [facility] [place] [address] Anticoagulation management encounter*; History of mechanical aortic valve replacement; S/P aortic valve replacement; S/P AVR (aortic valve replacement) Allergies Active Allergy Reactions Criticality Noted Date Comments Erythromycin 07/06/1997 Stomach pain documented as of this encounter (statuses as of 10/03/2024) Medications MULTIVITAMINS PO TABS Take 1 Tablet [...] Warfarin Sodium 7.5 MG Oral Tablet (Coumadin)Indic ations:Anticoag ulation management encounter,Histo ry of mechanical aortic valve replacement,S/P aortic valve replacement,S/P AVR (aortic valve replacement) Take 1-2 Tablets by mouth in the morning. Per MTDM instructions. 60 Tablet 5 5 Active Warfarin Sodium 7.5 MG Oral Tablet (Coumadin)Indic ations:S/P aortic valve replacement Take 1-2 Tablets by mouth in the morning. Per MTD instructions. 60 Tablet 5 5 10/04/19 25 Discontinu ed(Refill) documented as of this encounter (statuses as of 10/03/2024) Active Problems Problem Noted Date Diagnosed Date [...] as of this encounter (statuses as of 10/03/2024) Resolved Problems Problem Noted Date Diagnosed Date [...] as of this encounter (statuses as of 10/03/2024) Immunizations Name Administration Dates Next Due COVID-19 mRNA, LNP-s, No Pre serve, 2-Dose Series (Moderna) 11/25/2020,10/28/2020 Hepatitis B, 20+ yrs 05/19/2015,11/19/2014,05/06 PPD 05/06/2014,05/18/2009 Pneumococcal Conjugate Vacci ne, 20-valent ([id number]) 01/19/2022 Pneumococcal Polysaccharide PPV23 (Pneumovax) 08/22/2013 Seasonal [...] Industry Job Start Date Job End Date [employer] work Not on file Not on file Not on file documented as of this encounter Functional Status * Are you deaf or do you have serious difficulty hearing? Answer Date of Assessment Author No 04/20/2023 2:13 AM BRITTANYT Jil Sebastian LPN * Are you blind [...] No 04/20/2023 2:13 AM Jil Ulrich LPN * Because of a physical, [...] documented in this encounter Progress Notes * Emmie Boateng, [facility] - 10/03/2024 8:16 AM EDT Images from the original note were not included. Medication Therapy Disease Management - Anticoagulation Patient: Derek Tristan | : 1960 Subjective Contacts Contact Date/Time Type Contact Phone/Fax 10/03/2024 05:02 AM EDT Email SMS () [phone] Patient not accepting updates 10/03/2024 08:17 AM EDT Phone (Outgoing) AzaleaDerek (Self) [phone] (M) No Answer/Busy 10/03/2024 08:34 AM EDT Phone (Outgoing) AzaleaDerek (Self) [phone] (M) No Answer/Busy 10/03/2024 09:35 AM EDT Phone (Outgoing) ScarbroDerek raza (Self) [phone] (M) Patient-Reported Symptoms: Patient Findings Positives: Missed doses (patient reports has only been taking 1 tablet daily) Negatives: Signs/symptoms of thrombosis, Signs/symptoms of bleeding, Change in health, Change in alcohol use, Change in activity, Upcoming invasive procedure, Extra doses, Change in medications, Change in diet/appetite, Bruising Objective Current Warfarin Dose As of 10/03/2024 Warfarin maintenance plan: 15 mg (7.5 mg x 2) every Tue; 7.5 mg (7.5 mg x 1) all other days INR Result As of 10/03/2024 INR goal: 1.5-2.0 INR used for dosin.9 (10/02/2024) Assessment & Plan Warfarin Plan As of 10/03/2024 Full warfarin instructions: 10/03: 15 mg; Otherwise 15 mg every Tue; 7.5 mg all other days Next INR check: 10/09/2024 Repeat PT/INR in 1 week(s) - via GML Weekly dose: not changed. Patient reports has only been taking 1 tablet of warfarin daily. Instructed patient to resume normal weekly dose of 2 tablets on Sunday and 1 tablet all other days. Instructed patient to take 2 tablets tonight only to boost warfarin dose as INR subtherapeutic. Patient verbalized understanding of this. Patient reports in lapse with insurance coverage. While on the phone with patient, looked up [employer] benz for warfarin and reviewed pricing information. Patient stated that would be affordable. Resent warfarin prescription to [facility] with note requesting this be filled under [facility]. Encouraged patient to reach out with any questions/concerns. Additional Dosing Information: I spent a total of 10-19 minutes (exact time 12 mins) on the date of service in preparation, delivery, and documentation of the care provided to Derek Tristan excluding any time spent in the performance of separately billed services or time spent by another provider/QHP. Emmie Boateng [facility] Clinical Pharmacist 10/03/2024, 8:16 AM documented in this encounter Plan of Treatment Upcoming Encounters Date Type Department Care Team (Late st Contact Info) Description 10/10/2024 7:00 AM EDT Anticoagulation Pharmacy, [facility] [address] [address] [facility] [address] [place] [address] 11/13/2024 3:20 PM EDT Office Visit Pharmacy, [facility] [address] [place] [address] [facility] [address] [place] [address] 01/14/2025 12:20 PM EDT Office Visit Family Practice [facility] [address] [place] [address] Anabel Ortiz MD [address] [place] [address] Health Maintenance Due Date Last Done Comments [...] this encounter Medical Devices Implanted Type Area Telephonic Nurse Case Manager Device Identifier Shelf Expiration Date Model / Serial / Lot Cath Thermodilution 6fr - [id number] Implanted:Qty: 1 on 04/20/2023 at [facility] [place] [employer] [id number] 11/13/2024 [id number] / / [id number] Valve Aortic Mech 21mm - [id number] - [id number] Implanted:Qty: 1 on 04/23/2023 by Zbigniew Linder MD at OR [facility] N/A: Heart [employer] [id number] 09/04/2028 ONXACE-2 [id number] / [id number] Suture Steel 6 B&S19 M654g - [id number] Implanted:Qty: 8 on 04/23/2023 by Zbigniew Linder MD at OR [facility] N/A: Sternum JNJ : [employer] 12/07/2027 [id number] / / [id number] documented as of this encounter Visit Diagnoses Diagnosis Anticoagulation management encounter- Primary Encounter for therapeutic drug monitoring History of mechanical aortic valve replacement Heart valve replaced by other means S/P aortic valve replacement Heart valve replaced by other means S/P AVR (aortic valve replacement) Heart valve replaced by other means documented [...] and were consensually agreed upon. Care Teams Economics Faculty Member Relationship Specialty Start Date End Date Anabel Ortiz MD [address] [place] [place] [address] PCP - General Internal Medicine 07/25/24 documented as of this encounter"
--- OUTSIDE RECORDS SUMMARY | 2024-10-10 23:07 | External Medical Summary ---
Author Name Unknown Address Unknown Organization K01:[facility] [place] - [address] [place] [address] Laboratory Report Ordering Provider Test Date Status PETRA GOMES 10/02/2024 10:31:00 Final Warfarin Therapy
INR: 2 .0-3.0 conventional anticoagulation
INR: 2.5- 3.5 high intensity anticoagulation Observation Date Value Abnormality Reference (Units ) Status PT 10/02/2024 10:31:00 12.6 11.6-15.2 (seconds) Final INR 10/02/2024 10:31:00 0.9 0.8-1.2 Final Performing Location [facility] [place] - [address] [place] [address]
--- OUTSIDE RECORDS SUMMARY | 2024-10-10 23:07 | External Medical Summary | Summary of Care ---
Author Name Unknown Organization [facility] Address [address] [place] [facility] [place] [place] [place] [address] Phone [phone] Care Team Providers Care Factory Expert Name Role Phone Anabel Ortiz MD Primary Care Provider Reason for Visit * Reason Comments Dosage Adjustment Via Phone (anticoag Cl inic) Encounter Details Date Type Department Care Team (Latest Contact Info) Description 09/09/2024 7:00 AM EST Anticoagulation Pharmacy, [facility] [address] [place] [address] [facility] [place] [address] History of mechanical aortic valve replacement*; S/P aortic valve replacement Allergies Active Allergy Reactions Criticality Noted Date Comments Erythromycin 07/06/1997 Stomach pain documented as of this encounter (statuses as of 09/09/2024) Medications MULTIVITAMINS PO TABS Take 1 Tablet [...] as of this encounter (statuses as of 09/09/2024) Active Problems Problem Noted Date Diagnosed Date [...] as of this encounter (statuses as of 09/09/2024) Resolved Problems Problem Noted Date Diagnosed Date [...] as of this encounter (statuses as of 09/09/2024) Immunizations Name Administration Dates Next Due COVID-19 mRNA, LNP-s, No Pre serve, 2-Dose Series (Moderna) 11/25/2020,10/28/2020 Hepatitis B, 20+ yrs 05/19/2015,11/19/2014,05/06 PPD 05/06/2014,05/18/2009 Pneumococcal Conjugate Vacci ne, 20-valent ([id number]) 01/19/2022 Pneumococcal Polysaccharide PPV23 (Pneumovax) 08/22/2013 Seasonal [...] Industry Job Start Date Job End Date [employer] work Not on file Not on file [...] this encounter Progress Notes * Amna Ruffin, [facility] - 09/09/2024 10:11 AM EST Images from the original note were not included. Medication Therapy Disease Management - Anticoagulation Patient: Derek Tristan | : 1960 Subjective Contacts Contact Date/Time Type Contact Phone/Fax 09/09/2024 05:01 AM EST Email SMS () [phone] Patient not accepting updates Patient-Reported Symptoms: Patient Findings Negatives: Signs/symptoms of thrombosis, Signs/symptoms of bleeding, Change in health, Change in alcohol use, Change in activity, Upcoming invasive procedure, Missed doses, Extra doses, Change in medications, Change in diet/appetite, Bruising Objective Current Warfarin Dose As of 09/09/2024 Warfarin maintenance plan: No maintenance plan INR Result As of 09/09/2024 INR goal: 1.5-2.0 INR used for dosin.2 (09/08/2024) Assessment & Plan Warfarin Plan As of 09/09/2024 Full warfarin instructions: 3/4: 15 mg; 3/5: 7.5 mg; 3/6: 7.5 mg; 3/7: 7.5 mg; 3/8: 15 mg; 3/9: 7.5mg; 3/10: 7.5 mg Next INR check: 09/16/2024 Repeat PT/INR in 1 week(s) Weekly dose: not changed Additional Dosing Information: I spent a total of 10-19 minutes (exact time 10 mins) on the date of service in preparation, delivery, and documentation of the care provided to Derek Tristan excluding any time spent in the performance of separately billed services or time spent by another provider/QHP. Amna Ruffin RP Clinical Pharmacist 09/09/2024, 10:13 AM documented in this encounter Plan of Treatment Upcoming Encounters Date Type Department Care Team (Late st Contact Info) Description 09/16/2024 7:00 AM EDT Anticoagulation Pharmacy, [facility] [address] [address] [facility] [address] [place] [address] 11/13/2024 3:20 PM EDT Office Visit Pharmacy, [facility] [address] [place] [address] [facility] [place] [address] [place] [address] 01/14/2025 12:20 PM EDT Office Visit Family Practice [facility] [address] [place] [address] Anabel Ortiz MD [address] [place] [address] Health Maintenance Due Date Last Done Comments [...] this encounter Medical Devices Implanted Type Area Career And Transition Teacher Device Identifier Shelf Expiration Date Model / Serial / Lot Cath Thermodilution 6fr - [id number] Implanted:Qty: 1 on 04/20/2023 at [facility] [place] [employer] [id number] 11/13/2024 [id number] / / [id number] Valve Aortic Mech 21mm - [id number] - [id number] Implanted:Qty: 1 on 04/23/2023 by Zbigniew Linder MD at [place] [facility] N/A: Heart [employer] [id number] 09/04/2028 ONXACE-2 [id number] / [id number] Suture Steel 6 B&S19 M654g - [id number] Implanted:Qty: 8 on 04/23/2023 by Zbigniew Linder MD at [place] [facility] N/A: Sternum JNJ : [employer] 12/07/2027 [...] and were consensually agreed upon. Care Teams Factory Expert Relationship Specialty Start Date End Date Anabel Ortiz MD [address] [place] [address] PCP - General Internal Medicine 07/25/24 documented as of this encounter"
--- OUTSIDE RECORDS SUMMARY | 2024-10-10 23:07 | External Medical Summary | Summary of Care ---
Author Name Unknown Organization [facility] Address [address] [facility] [place] [place] [address] Phone [phone] Care Team Providers Care Mobile Plant Operators Name Role Phone Anabel Ortiz MD Primary Care Provider Reason for Visit * Reason Comments Dosage Adjustment Via Phone (anticoag Cl inic) Encounter Details Date Type Department Care Team (Latest Contact Info) Description 09/16/2024 7:00 AM EDT Anticoagulation Pharmacy, [facility] [address] [place] [address] [facility] [place] [address] History of mechanical aortic valve replacement*; S/P aortic valve replacement Allergies Active Allergy Reactions Criticality Noted Date Comments Erythromycin 07/06/1997 Stomach pain documented as of this encounter (statuses as of 09/16/2024) Medications MULTIVITAMINS PO TABS Take 1 Tablet [...] as of this encounter (statuses as of 09/16/2024) Active Problems Problem Noted Date Diagnosed Date [...] as of this encounter (statuses as of 09/16/2024) Resolved Problems Problem Noted Date Diagnosed Date [...] as of this encounter (statuses as of 09/16/2024) Immunizations Name Administration Dates Next Due COVID-19 mRNA, LNP-s, No Pre serve, 2-Dose Series (Moderna) 11/25/2020,10/28/2020 Hepatitis B, 20+ yrs 05/19/2015,11/19/2014,05/06 PPD 05/06/2014,05/18/2009 Pneumococcal Conjugate Vacci ne, 20-valent ([id number]) 01/19/2022 Pneumococcal Polysaccharide PPV23 (Pneumovax) 08/22/2013 Seasonal [...] Industry Job Start Date Job End Date [employer] work Not on file Not on file [...] this encounter Progress Notes * Amna Ruffin, [facility] - 09/16/2024 9:14 AM EDT Medication Therapy Disease Management - Anticoagulation Patient: Derek Tristan | : 1960 Subjective Contacts Contact Date/Time Type Contact Phone/Fax 09/16/2024 05:01 AM EDT Email SMS () [phone] Patient not accepting updates 09/16/2024 09:14 AM EDT Phone (Outgoing) Derek Tristan (Self) [phone] (M) Patient-Reported Symptoms: Objective Current Warfarin Dose As of 09/16/2024 Warfarin maintenance plan: No maintenance plan INR Result As of 09/16/2024 INR goal: 1.5-2.0 INR used for dosing: -- Assessment & Plan Warfarin Plan As of 09/16/2024 Full warfarin instructions: 09/16: 15 mg; 09/17: 7.5 mg; 09/18: 7.5 mg Next INR check: 09/18/2024 Repeat PT/INR in 2 day(s) 09/18 with gml Weekly dose: not changed Additional Dosing Information: I spent a total of 10-19 minutes (exact time 10 mins) on the date of service in preparation, delivery, and documentation of the care provided to Derek Tristan excluding any time spent in the performance of separately billed services or time spent by another provider/QHP. Amna Ruffin [facility] Clinical Pharmacist 09/16/2024, 9:14 AM * Amber Gomez CPhT - 09/16/2024 7:46 AM EDT GML did not draw patient yesterday, the next time they go to his area is . Amber Gomez CPhT, [place] Behavioral Scientist II [facility] documented in this encounter Plan of Treatment Upcoming Encounters Date Type Department Care Team (Late st Contact Info) Description 09/19/2024 7:00 AM EDT Anticoagulation Pharmacy, [address] [place] [address] [facility] [address] [address] 11/13/2024 3:20 PM EDT Office Visit Pharmacy, [facility] [address] [place] [address] [facility] [address] [place] [address] 01/14/2025 12:20 PM EDT Office Visit Family Practice [facility] [address] [place] [address] Anabel Ortiz MD [address] [place] [address] Health Maintenance Due Date Last Done Comments [...] this encounter Medical Devices Implanted Type Area Pharm Tech Device Identifier Shelf Expiration Date Model / Serial / Lot Cath Thermodilution 6fr - [id number] Implanted:Qty: 1 on 04/20/2023 at [facility] [place] [employer] [id number] 11/13/2024 [id number] / / [id number] Valve Aortic Mech 21mm - [id number] - [id number] Implanted:Qty: 1 on 04/23/2023 by Zbigniew Linder MD at [place] [facility] N/A: Heart [employer] [id number] 09/04/2028 ONXACE-2 [id number] / [id number] Suture Steel 6 B&S19 M654g - [id number] Implanted:Qty: 8 on 04/23/2023 by Zbigniew Linder [...] and were consensually agreed upon. Care Teams Mobile Plant Operators Relationship Specialty Start Date End Date Anabel Ortiz MD [address] [place] [address] PCP - General Internal Medicine 07/25/24 documented as of this encounter"
--- OUTSIDE RECORDS SUMMARY | 2024-10-10 23:07 | External Medical Summary | Summary of Care ---
Author Name Unknown Organization [facility] Address [address] [facility] [place] [address] Phone [phone] Care Team Providers Care Transit Proof Machine Operator Name Role Phone Anabel Ortiz MD Primary Care Provider Reason for Visit * Reason Comments Dosage Adjustment Via Phone (anticoag Cl inic) Encounter Details Date Type Department Care Team (Latest Contact Info) Description 09/03/2024 5:30 PM EST Anticoagulation Pharmacy, [facility] [address] [place] [address] [facility] [place] [address] History of mechanical aortic valve replacement*; S/P aortic valve replacement Allergies Active Allergy Reactions Criticality Noted Date Comments Erythromycin 07/06/1997 Stomach pain documented as of this encounter (statuses as of 09/03/2024) Medications MULTIVITAMINS PO TABS Take 1 Tablet [...] as of this encounter (statuses as of 09/03/2024) Active Problems Problem Noted Date Diagnosed Date [...] as of this encounter (statuses as of 09/03/2024) Resolved Problems Problem Noted Date Diagnosed Date [...] as of this encounter (statuses as of 09/03/2024) Immunizations Name Administration Dates Next Due COVID-19 mRNA, LNP-s, No Pre serve, 2-Dose Series (Moderna) 11/25/2020,10/28/2020 Hepatitis B, 20+ yrs 05/19/2015,11/19/2014,05/06 PPD 05/06/2014,05/18/2009 Pneumococcal Conjugate Vacci ne, 20-valent ([id number]) 01/19/2022 Pneumococcal Polysaccharide PPV23 (Pneumovax) 08/22/2013 Seasonal [...] Industry Job Start Date Job End Date [employer] work Not on file Not on file [...] this encounter Progress Notes * Amna Ruffin, [facility] - 09/03/2024 10:32 AM EST Images from the original note were not included. Medication Therapy Disease Management - Anticoagulation Patient: Derek Tristan | : 1960 Subjective Contacts Contact Date/Time Type Contact Phone/Fax 09/03/2024 08:35 AM EST Phone (Outgoing) Derek Tristan (Self) [phone] (M) Patient-Reported Symptoms: Patient Findings Negatives: Signs/symptoms of thrombosis, Signs/symptoms of bleeding, Change in health, Change in alcohol use, Change in activity, Upcoming invasive procedure, Missed doses, Extra doses, Change in medications, Change in diet/appetite, Bruising Objective Current Warfarin Dose As of 09/03/2024 Warfarin maintenance plan: No maintenance plan INR Result As of 09/03/2024 INR goal: 1.5-2.0 INR used for dosin.3 (09/02/2024) Assessment & Plan Warfarin Plan As of 09/03/2024 Full warfarin instructions: 09/03: 7.5 mg; 09/04: 7.5 mg; 09/05: 7.5 mg; 3/: 7.5 mg; 3/2: 7.5 mg Next INR check: 09/08/2024 Repeat PT/INR in 5 day(s) Weekly dose: not changed Additional Dosing Information: I spent a total of 10-19 minutes (exact time 10 mins) on the date of service in preparation, delivery, and documentation of the care provided to Derek Tristan excluding any time spent in the performance of separately billed services or time spent by another provider/QHP. Amna Ruffin RPh Clinical Pharmacist 09/03/2024, 10:33 AM documented in this encounter Plan of Treatment Upcoming Encounters Date Type Department Care Team (Late st Contact Info) Description 09/08/2024 7:10 AM EST Laboratory Lab Mobile Phlebotomy [address] [place] [address] [facility] Mobile Home Draw [address] [place] [address] [place] [address] 09/08/2024 5:30 PM EST Anticoagulation Pharmacy, [facility] [address] [place] [address] [facility] [address] [place] [address] 01/14/2025 12:20 PM EDT Office Visit Family Practice [facility] [address] [place] [address] Anabel Ortiz MD [address] [place] [address] Health Maintenance Due Date Last Done Comments [...] this encounter Medical Devices Implanted Type Area Mail Reader Device Identifier Shelf Expiration Date Model / Serial / Lot Cath Thermodilution 6fr - [id number] Implanted:Qty: 1 on 04/20/2023 at [facility] [place] [employer] [id number] 11/13/2024 [id number] / / [id number] Valve Aortic Mech 21mm - [id number] - [id number] Implanted:Qty: 1 on 04/23/2023 by Zbigniew Linder MD [place] [facility] N/A: Heart [employer] [id number] 09/04/2028 ONXACE-2 [id number] / [id number] Suture Steel 6 B&S19 M654g - [id number] Implanted:Qty: 8 on 04/23/2023 by Zbigniew Linder MD at [place] [facility] N/A: Sternum JNJ : [employer] 12/07/2027 [...] and were consensually agreed upon. Care Teams Transit Proof Machine Operator Relationship Specialty Start Date End Date Anabel Ortiz MD [address] [place] [address] PCP - General Internal Medicine 07/25/24 documented as of this encounter"
--- OUTSIDE RECORDS SUMMARY | 2024-10-10 23:07 | External Medical Summary | Summary of Care ---
Author Name Unknown Organization [facility] Address [address] [place] [address] Phone [phone] Care Team Providers Care Commissary Clerk Name Role Phone Anabel Ortiz MD Primary Care Provider Reason for Visit * Reason Onset Date Comments Advice 09/12/2024 Encounter Details Date Type Department Care Team (Late st Contact Info) Description 09/12/2024 Telephone Family Practice [facility] [address] [place] [address] Anabel Ortiz MD [address] [place] [address] Advice Allergies Active Allergy Reactions Criticality Noted Date Comments Erythromycin 07/06/1997 Stomach pain documented as of this encounter (statuses as of 09/12/2024) Medications MULTIVITAMINS PO TABS Take 1 Tablet by mouth every morning. Active Calcium Carbonate Antacid 500 MG Oral Tablet Chewable Take 1 Tablet by mouth as needed. As needed 5 Active ONETOUCH DELICA LANCETS 33G MISC TEST SUGAR DAILY 100 Each 5 8 Active ONETOUCH ULTRA BLUE STRPIndications: Type 2 diabetes mellitus with hemoglobin A1c goal of less than 7.0% ([facility]) USE UP TO 4 TIMES [...] as of this encounter (statuses as of 09/12/2024) Active Problems Problem Noted Date Diagnosed Date [...] as of this encounter (statuses as of 09/12/2024) Resolved Problems Problem Noted Date Diagnosed Date [...] (06/24/2009): Per Lipid Taxonomy. Mixed dyslipidemia 07/03/2007 Overview (06/24/2009): Per Lipid Taxonomy. ADVANCE DIRECTIVE INFORMATION 12/29/2005 05/12/2024 Overview (12/29/2005): Pt has living will. Advised to bring copy. Acute bronchitis, antibiotics not indicated 04/05/2004 09/03/2008 Overview (09/03/2008): Resolved per Benign Acute Dxs Protocol #3 Tobacco use disorder 02/22/1998 011 HTN, goal below 140/90 02/22/199811/04 documented as of this encounter (statuses as of 09/12/2024) Immunizations Name Administration Dates Next Due COVID-19 mRNA, LNP-s, No Pre serve, 2-Dose Series (Moderna) 11/25/2020,10/28/2020 Hepatitis B, 20+ yrs 05/19/2015,11/19/2014,05/06 PPD 05/06/2014,05/18/2009 Pneumococcal Conjugate Vacci ne, 20-valent ([id number]) 01/19/2022 Pneumococcal Polysaccharide PPV23 (Pneumovax) 08/22/2013 Seasonal [...] Industry Job Start Date Job End Date [employer] work Not on file Not on file [...] encounter Miscellaneous Notes * Telephone Encounter - Marielle Parry, MED ASSIST - 09/12/2024 4:38 PM EST Patient informed. * Telephone Encounter - Enid Lewis CRNP - 09/12/2024 2:33 PM EST Agree with bland diet recommendations. Be sure to stay hydrated. 64-80 oz water daily Inboxologist Note: Inboxologist Covering Provider for Angel All replies or additional communication must be routed to the PCP * Telephone Encounter - Reggie Mcfarlane MD - 09/12/2024 1:23 PM EST * Telephone Encounter - Donna Bowman LPN - 09/12/2024 12:44 PM EST Pt asking for advise with C-Diff, was seen in ER last night. Pt asked what he can eat, told he can eat toast, applesauce, yogurt, eggs, plain rice, potatoes, bananas, oatmeal, bone broth. He should avoid spicy, fatty greasy foods, dairy, raw fruits or vegetables, and no whole grains, no alcohol. Told to be sure he drinks plenty of fluids. * Telephone Encounter - Anthony Pearson Ob/Or, RASHEL - 09/12/2024 12:39 PM EST Pt calling to make Dr Ortiz aware that he was diagnosed w C-Diff . Wants to speak w a nurse or pcp to see if there is anything he can eat that will not make him sick , Reason for patient's call: Advise Caller was transferred to [facility] at the clinic. documented in this encounter Plan of Treatment Upcoming Encounters Date Type Department Care Team (Late st Contact Info) Description 09/16/2024 7:00 AM EDT Anticoagulation Pharmacy, [facility] [address] [place] [address] [facility] [address] [address] 11/13/2024 3:20 PM EDT Office Visit Pharmacy, [facility] [address] [place] [address] [facility] [address] [place] [address] 01/14/2025 12:20 PM EDT Office Visit Family Practice [facility] [address] [place] [address] Anabel Ortiz MD [address] [place] [address] Health Maintenance Due Date Last Done Comments [...] this encounter Medical Devices Implanted Type Area Collections Specialist Device Identifier Shelf Expiration Date Model / Serial / Lot Cath Thermodilution 6fr - [id number] Implanted:Qty: 1 on 04/20/2023 at [facility] [employer] [id number] 11/13/2024 [id number] / / [id number] Valve Aortic Mech 21mm - [id number] - [id number] Implanted:Qty: 1 on 04/23/2023 by Zbigniew Linder MD at [place] [facility] N/A: Heart [employer] [id number] 09/04/2028 ONXACE-2 [id number] / [id number] Suture Steel 6 B&S19 M654g - [id number] Implanted:Qty: 8 on 04/23/2023 by Zbigniew Linder MD at OR [facility] N/A: Sternum JNJ : [employer] 12/07/2027 [...] and were consensually agreed upon. Care Teams Commissary Clerk Relationship Specialty Start Date End Date Anabel Ortiz MD [address] [place] [address] PCP - General Internal Medicine 07/25/24 documented as of this encounter
--- OUTSIDE RECORDS SUMMARY | 2024-10-10 23:08 | External Medical Summary | Summary of Care ---
Author Name Unknown Organization [facility] Address [address] [facility] [place] [address] Phone [phone] Care Team Providers Care Car Groomer Name Role Phone Anabel Ortiz MD Primary Care Provider Reason for Visit * Reason Comments Dosage Adjustment Via Phone (anticoag Cl inic) Encounter Details Date Type Department Care Team (Latest Contact Info) Description 08/19/2024 5:30 PM EST Anticoagulation Pharmacy, [facility] [address] [place] [address] [facility] [place] [address] History of mechanical aortic valve replacement*; S/P aortic valve replacement Allergies Active Allergy Reactions Criticality Noted Date Comments Erythromycin 07/06/1997 Stomach pain documented as of this encounter (statuses as of 08/19/2024) Medications MULTIVITAMINS PO TABS Take 1 Tablet [...] as of this encounter (statuses as of 08/19/2024) Active Problems Problem Noted Date Diagnosed Date [...] as of this encounter (statuses as of 08/19/2024) Resolved Problems Problem Noted Date Diagnosed Date [...] as of this encounter (statuses as of 08/19/2024) Immunizations Name Administration Dates Next Due COVID-19 mRNA, LNP-s, No Pre serve, 2-Dose Series (Moderna) 11/25/2020,10/28/2020 Hepatitis B, 20+ yrs 05/19/2015,11/19/2014,05/06 PPD 05/06/2014,05/18/2009 Pneumococcal Conjugate Vacci ne, 20-valent ([id number]) 01/19/2022 Pneumococcal Polysaccharide PPV23 (Pneumovax) 08/22/2013 Seasonal [...] Industry Job Start Date Job End Date [employer] work Not on file Not on [...] this encounter Progress Notes * Amna Ruffin, [facility] - 08/19/2024 11:50 AM EST Images from the original note were not included. Medication Therapy Disease Management - Anticoagulation Patient: Derek Tristan | : 1960 Subjective Contacts Contact Date/Time Type Contact Phone/Fax 08/19/2024 11:51 AM EST Phone (Outgoing) Derek Tristan (Self) [phone] (M) Left Message Patient-Reported Symptoms: Objective Current Warfarin Dose As of 08/19/2024 Warfarin maintenance plan: No maintenance plan INR Result As of 08/19/2024 INR goal: 1.5-2.0 INR used for dosin.4 (08/18/2024) Assessment & Plan Warfarin Plan As of 08/19/2024 Full warfarin instructions: 08/19: 15 mg; 08/20: 7.5 mg Next INR check: 08/21/2024 Repeat PT/INR in 2 day(s) Weekly dose: not changed Additional Dosing Information: I spent a total of 10-19 minutes (exact time 10 mins) on the date of service in preparation, delivery, and documentation of the care provided to Derek Tristan excluding any time spent in the performance of separately billed services or time spent by another provider/QHP. Amna Ruffin [facility] Clinical Pharmacist 08/19/2024, 11:54 AM documented in this encounter Plan of Treatment Upcoming Encounters Date Type Department Care Team (Late st Contact Info) Description 08/21/2024 7:10 AM EST Laboratory Lab [facility] [address] [place] [address] [facility] Mobile Home Draw [address] [place] [address] [address] 08/21/2024 5:30 PM EST [facility], [facility] [place] [address] [place] [address] [facility] [address] [place] [address] 08/26/2024 2:10 PM EST [facility] [address] [place] [address] [facility] [address] [place] [address] 01/14/2025 12:20 PM EDT Office Visit Family Practice [facility] [address] [place] [address] Anabel Ortiz MD [address] [place] [address] Health Maintenance Due Date Last Done Comments [...] this encounter Medical Devices Implanted Type Area Bi Analyst Device Identifier Shelf Expiration Date Model / Serial / Lot Cath Thermodilution 6fr - [id number] Implanted:Qty: 1 on 04/20/2023 at [facility] [employer] [id number] 11/13/2024 [id number] / / [id number] Valve Aortic Mech 21mm - [id number] - [id number] Implanted:Qty: 1 on 04/23/2023 by Zbigniew Linder MD at OR [facility] N/A: Heart [employer] [id number] 09/04/2028 ONXACE-2 [id number] / [id number] Suture Steel 6 B&S19 M654g - [id number] Implanted:Qty: 8 on 04/23/2023 by Zbigniew Linder MD at OR [facility] N/A: Sternum JNJ : [employer] [...] and were consensually agreed upon. Care Teams Car Groomer Relationship Specialty Start Date End Date Anabel Ortiz MD [address] [place] [address] PCP - General Internal Medicine 07/25/24 documented as of this encounter"
--- OUTSIDE RECORDS SUMMARY | 2024-10-10 23:08 | External Medical Summary ---
Author Name Unknown Address Unknown Organization K01:[facility] [place] [address] [place] [address] Laboratory Report Ordering Provider Test Date Status PETRA GOMES 08/26/2024 10:34:00 Final Warfarin Therapy
INR: 2 .0-3.0 conventional anticoagulation
INR: 2.5- 3.5 high intensity anticoagulation Observation Date Value Abnormality Reference (Units ) Status PT 08/26/2024 10:34:00 >70.0 Above high normal 11.6-15.2 (seconds) Final INR 08/26/2024 10:34:00 >9.0 Above upper panic limits 0.8-1.2 Final Performing Location [facility] [place] [place] [address] [place] [address]
--- OUTSIDE RECORDS SUMMARY | 2024-10-10 23:08 | External Medical Summary | Summary of Care ---
Author Name Unknown Organization [facility] Address [address] [place] [place] [address] Phone [phone] Care Team Providers Care Shade Matcher Name Role Phone Anabel Ortiz MD Primary Care Provider Reason for Visit * Reason Comments Dosage Adjustment Via Phone (anticoag Cl inic) Encounter Details Date Type Department Care Team (Latest Contact Info) Description 09/02/2024 5:30 PM EST Anticoagulation Pharmacy, [facility] [address] [place] [address] [facility] [place] [address] History of mechanical aortic valve replacement*; S/P [...] PPD 05/06/2014,05/18/2009 Pneumococcal Conjugate Vacci ne, 20-valent ([id number]) 01/19/2022 Pneumococcal Polysaccharide PPV23 (Pneumovax) 08/22/2013 Seasonal [...] Industry Job Start Date Job End Date [id number] work Not on file Not on file [...] this encounter Progress Notes * Amna Ruffin, [facility] - 09/02/2024 4:04 PM EST Medication Therapy Disease Management - Anticoagulation Patient: Derek Tristan | : 1960 Subjective Patient-Reported Symptoms: Patient Findings Negatives: Signs/symptoms of thrombosis, Signs/symptoms of bleeding, Change in health, Change in alcohol use, Change in activity, Upcoming invasive procedure, Missed doses, Extra doses, Change in medications, Change in diet/appetite, Bruising Objective Current Warfarin Dose As of 09/02/2024 Warfarin maintenance plan: No maintenance plan INR Result As of 09/02/2024 INR goal: 1.5-2.0 INR used for dosing: -- Assessment & Plan Warfarin Plan As of 09/02/2024 Full warfarin instructions: 09/02: 3.75 mg Next INR check: 09/03/2024 Repeat PT/INR in 1 day(s) Weekly dose: not changed Additional Dosing Information: I spent a total of 10-19 minutes (exact time 10 mins) on the date of service in preparation, delivery, and documentation of the care provided to Derek Tristan excluding any time spent in the performance of separately billed services or time spent by another provider/QHP. Amna Ruffin [facility] Clinical Pharmacist 09/02/2024, 4:06 PM documented in this encounter Plan of Treatment Upcoming Encounters Date Type Department Care Team (Late st Contact Info) Description 09/03/2024 5:30 PM EST Anticoagulation Pharmacy, [facility] [address] [place] [address] [facility] [address] [place] [address] 01/14/2025 12:20 PM EDT Office Visit Family Practice [facility] [address] [place] [address] Anabel Ortiz MD [address] [place] [address] Health Maintenance Due Date Last Done Comments [...] this encounter Medical Devices Implanted Type Area Financial Director Device Identifier Shelf Expiration Date Model / Serial / Lot Cath Thermodilution 6fr - [id number] Implanted:Qty: 1 on 04/20/2023 at [facility] [employer] [id number] 11/13/2024 [id number] / / [id number] Valve Aortic Mech 21mm - [id number] - [id number] Implanted:Qty: 1 on 04/23/2023 by Zbigniew Linder MD [place] [facility] N/A: Heart [employer] [id number] 09/04/2028 ONXACE-2 [id number] / [id number] Suture Steel 6 B&S19 M654g - [id number] Implanted:Qty: 8 on 04/23/2023 by Zbigniew Linder MD at [place] [facility] N/A: Sternum JNJ : [employer] [...] and were consensually agreed upon. Care Teams Shade Matcher Relationship Specialty Start Date End Date Anabel Ortiz MD [address] [place] [address] PCP - General Internal Medicine 07/25/24 documented as of this encounter"
--- OUTSIDE RECORDS SUMMARY | 2024-10-10 23:08 | External Medical Summary | Summary of Care ---
Author Name Unknown Organization [facility] Address [address] [place] [facility] [place] [address] Phone [phone] Care Team Providers Care Trust Advisor Name Role Phone Anabel Ortiz MD Primary Care Provider Reason for Visit * Reason Comments Dosage Adjustment Via Phone (anticoag Cl inic) Encounter Details Date Type Department Care Team (Latest Contact Info) Description 09/01/2024 5:30 PM EST Anticoagulation Pharmacy, [facility] [address] [place] [address] [facility] [place] [address] History of mechanical aortic valve replacement*; S/P aortic valve replacement Allergies Active Allergy Reactions Criticality Noted Date Comments Erythromycin 07/06/1997 Stomach pain documented as of this encounter (statuses as of 09/02/2024) Medications MULTIVITAMINS PO TABS Take 1 Tablet [...] as of this encounter (statuses as of 09/02/2024) Active Problems Problem Noted Date Diagnosed Date [...] as of this encounter (statuses as of 09/02/2024) Resolved Problems Problem Noted Date Diagnosed Date [...] as of this encounter (statuses as of 09/02/2024) Immunizations Name Administration Dates Next Due COVID-19 mRNA, LNP-s, No Pre serve, 2-Dose Series (Moderna) 11/25/2020,10/28/2020 Hepatitis B, 20+ yrs 05/19/2015,11/19/2014,05/06 PPD 05/06/2014,05/18/2009 Pneumococcal Conjugate Vacci ne, 20-valent ([id number]) 01/19/2022 Pneumococcal Polysaccharide PPV23 (Pneumovax) 08/22/2013 Seasonal [...] 2:01 PM EDT Sexual Orientation Lynne 04/17/2023 2 :01 PM EDT Occupation Industry Job Start Date Job End Date [employer] work Not on file Not on file [...] Author No 04/20/2023 2:13 AM EDT Jil Sbeastian LPN * Because of a physical, mental, [...] documented in this encounter Progress Notes * Navin Breaux, [facility] - 09/01/2024 3:32 PM EST Medication Therapy Disease Management - Anticoagulation Patient: Derek Tristan | : 1960 Subjective Contacts Contact Date/Time Type Contact Phone/Fax 09/01/2024 03:32 PM EST Phone (Outgoing) Derek Tristan (Self) [phone] (M) Left Message - Left detailed message with warfarin instructions. Also sent MyG. Patient-Reported Symptoms: Patient Findings Comments: Instructed to call the Anticoagulation Clinic if any unusual bruising or bleeding, diet or medication changes, recent illness, or problems/questions/concerns. Objective Current Warfarin Dose As of 09/01/2024 Warfarin maintenance plan: No maintenance plan INR Result As of 09/01/2024 INR goal: 1.5-2.0 INR used for dosing: -- Assessment & Plan Warfarin Plan As of 09/01/2024 Full warfarin instructions: 09/01: 3.75 mg Next INR check: 09/02/2024 Repeat PT/INR in 1 day(s) Weekly dose: establishing Additional Dosing Information: I spent a total of 10-19 minutes (exact time 10 mins) on the date of service in preparation, delivery, and documentation of the care provided to Derek Tristan excluding any time spent in the performance of separately billed services or time spent by another provider/QHP. Navin Breaux [facility] Clinical Pharmacist 09/01/2024, 3:32 PM documented in this encounter Plan of Treatment Upcoming Encounters Date Type Department Care Team (Late st Contact Info) Description 09/02/2024 7:00 AM EST Laboratory Lab Mobile Phlebotomy [place] [address] [place] [address] [facility] Mobile Home Draw [address] [place] [address] [place] [address] Arrived 09/02/2024 5:30 PM EST Anticoagulation Pharmacy, [facility] [address] [place] [address] [facility] [address] [facility] [place] [address] 01/14/2025 12:20 PM EDT Office Visit Family Practice [facility] [address] [place] [address] Anabel Ortiz MD [address] [place] [address] Health Maintenance Due Date Last Done Comments [...] this encounter Medical Devices Implanted Type Area Assembly Line Inspector Device Identifier Shelf Expiration Date Model / Serial / Lot Cath Thermodilution 6fr - [id number] Implanted:Qty: 1 on [place]/20/2023 at [facility] [facility] [place] [employer] [id number] 11/13/2024 [id number] / / [id number] Valve Aortic Mech 21mm - [id number] - [id number] Implanted:Qty: 1 on 04/23/2023 by Zbigniew Linder [place] [facility] [place]A: Heart [employer] [id number] 09/04/2028 ONXACE-2 [id number] / [id number] Suture Steel 6 B&S19 M654g - [id number] Implanted:Qty: 8 on 04/23/2023 by Zbigniew Linder [place] [facility] [place]A: Sternum JNJ : [...] and were consensually agreed upon. Care Teams Trust Advisor Relationship Specialty Start Date End Date Anabel Ortiz MD [address] [place] [address] PCP - General Internal Medicine 07/25/24 documented as of this encounter"
--- OUTSIDE RECORDS SUMMARY | 2024-10-10 23:08 | External Medical Summary | Summary of Care ---
Author Name Unknown Organization [facility] Address [address] [facility] [place] [address] Phone [phone] Care Team Providers Care Window Framer Name Role Phone Anabel Ortiz MD Primary Care Provider Reason for Visit * Reason Comments Dosage Adjustment In Person (Anticoag Cl inic) Encounter Details Date Type Department Care Team (Latest Contact Info) Description 08/22/2024 7:00 AM EST Anticoagulation Pharmacy, [facility] [address] [place] [address] [facility] [place] [address] History of mechanical aortic valve replacement*; S/P aortic valve replacement Allergies Active Allergy Reactions Criticality Noted Date Comments Erythromycin 07/06/1997 Stomach pain documented as of this encounter (statuses as of 08/22/2024) Medications MULTIVITAMINS PO TABS Take 1 Tablet [...] as of this encounter (statuses as of 08/22/2024) Active Problems Problem Noted Date Diagnosed Date [...] as of this encounter (statuses as of 08/22/2024) Resolved Problems Problem Noted Date Diagnosed Date [...] as of this encounter (statuses as of 08/22/2024) Immunizations Name Administration Dates Next Due COVID-19 mRNA, LNP-s, No Pre serve, 2-Dose Series (Moderna) 11/25/2020,10/28/2020 Hepatitis B, 20+ yrs 05/19/2015,11/19/2014,05/06 PPD 05/06/2014,05/18/2009 Pneumococcal Conjugate Vacci ne, 20-valent ([id number]) 01/19/2022 Pneumococcal Polysaccharide PPV23 (Pneumovax) 08/22/2013 Seasonal [...] Industry Job Start Date Job End Date [employer] work Not on file Not on file [...] this encounter Progress Notes * Amna Ruffin, [facility] - 08/22/2024 8:21 AM EST Images from the original note were not included. Medication Therapy Disease Management - Anticoagulation Patient: Derek Tristan | : 1960 Subjective Patient-Reported Symptoms: Patient Findings Positives: Other complaints (patient notes having diarrhea) Negatives: Signs/symptoms of thrombosis, Signs/symptoms of bleeding, Change in health, Change in alcohol use, Change in activity, Upcoming invasive procedure, Missed doses, Extra doses, Change in medications, Change in diet/appetite, Bruising Objective Current Warfarin Dose As of 08/22/2024 Warfarin maintenance plan: No maintenance plan INR Result As of 08/22/2024 INR goal: 1.5-2.0 INR used for dosin.4 (08/21/2024) Assessment & Plan Warfarin Plan As of 08/22/2024 Full warfarin instructions: 14: 15 mg; 215: 7.5 mg; 2/16: 7.5 mg; 2/17: 7.5 mg Next INR check: 08/26/2024 Repeat PT/INR in 4 day(s) Weekly dose: not changed Additional Dosing Information: I spent a total of 10-19 minutes (exact time 10 mins) on the date of service in preparation, delivery, and documentation of the care provided to Derek Tristan excluding any time spent in the performance of separately billed services or time spent by another provider/QHP. Amna Ruffin [facility] Clinical Pharmacist 08/22/2024, 10:13 AM documented in this encounter Plan of Treatment Upcoming Encounters Date Type Department Care Team (Late st Contact Info) Description 08/26/2024 7:05 AM EST Laboratory Lab Mobile Phlebotomy [facility] [address] [place] [address] [address] [facility], [facility] Mobile Home Draw [address] [place] [address] 08/26/2024 2:10 PM EST [facility] [address] [facility] [place] [address] [facility] [address] [facility] [place] [address] 08/26/2024 5:30 PM EST Anticoagulation Pharmacy, [facility] [address] [place] [address] [facility] [place] [address] [place] [address] 01/14/2025 12:20 PM EDT Office Visit Family Practice [facility] [address] [place] [address] Anabel Ortiz MD [address] [place] [address] Health Maintenance Due Date Last Done Comments [...] this encounter Medical Devices Implanted Type Area Operator Assistant I Cementing Device Identifier Shelf Expiration Date Model / Serial / Lot Cath Thermodilution 6fr - [id number] Implanted:Qty: 1 on 04/20/2023 at [facility] [place] [employer] [id number] 11/13/2024 [id number] / / [id number] Valve Aortic [facility] 21mm - [id number] - [id number] Implanted:Qty: 1 on 04/23/2023 by Zbigniew Linder MD at [place] [facility] [place] N/A: Heart [employer] [id number] 09/04/2028 ONXACE-2 1 / [id number] / [id number] Suture Steel 6 B&S19 M654g - [id number] Implanted:Qty: 8 on 04/23/2023 by Zbigniew Linder MD at [place] [facility] [place] N/A: Sternum JNJ : [employer] 12/07/2027 [...] and were consensually agreed upon. Care Teams Window Framer Relationship Specialty Start Date End Date Anabel Ortiz MD [address] [place] [address] PCP - General Internal Medicine 07/25/24 documented as of this encounter"
--- OUTSIDE RECORDS SUMMARY | 2024-10-10 23:08 | External Medical Summary | Summary of Care ---
Author Name Unknown Organization [facility] Address [address] [place] [address] Phone [phone] Care Team Providers Care Charge Weigher Name Role Phone Anabel Ortiz MD Primary Care Provider Reason for Visit * Reason Onset Date Comments FYI 08/14/2024 Encounter Details Date Type Department Care Team (Late st Contact Info) Description 08/14/2024 Telephone Family Practice [facility] [address] [place] [address] Anabel Ortiz MD [address] [place] [address] FYI Allergies Active Allergy Reactions Criticality Noted Date Comments Erythromycin 07/06/1997 Stomach pain documented as of this encounter (statuses as of 08/15/2024) Medications MULTIVITAMINS PO TABS Take 1 Tablet [...] as of this encounter (statuses as of 08/15/2024) Active Problems Problem Noted Date Diagnosed Date [...] as of this encounter (statuses as of 08/15/2024) Resolved Problems Problem Noted Date Diagnosed Date [...] as of this encounter (statuses as of 08/15/2024) Immunizations Name Administration Dates Next Due COVID-19 mRNA, LNP-s, No Pre serve, 2-Dose Series (Moderna) 11/25/2020,10/28/2020 Hepatitis B, 20+ yrs 05/19/2015,11/19/2014,05/06 PPD 05/06/2014,05/18/2009 Pneumococcal Conjugate Vacci ne, 20-valent ([id number]) 01/19/2022 Pneumococcal Polysaccharide PPV23 (Pneumovax) 08/22/2013 Seasonal [...] Industry Job Start Date Job End Date [employer] work Not on file Not on file [...] Telephone Encounter - Anabel Ortiz MD - 08/15/2024 9:19 AM EST Noted, I already signed the order today * Telephone Encounter - Aanmaria Velez OSA - 08/14/2024 8:38 AM EST Julian with [facility] calling to let pcp know that pt rescheduled PT evaluation visit for nextweek due to weather. Julian states he will send the order over. documented in this encounter Plan of Treatment Upcoming Encounters Date Type Department Care Team (Late st Contact Info) Description 08/18/2024 7:20 AM EST Laboratory Lab Mobile Phlebotomy [facility] [address] [place] [address] [facility], Gml Mobile Home Draw [address] [facility] [place] [address] 08/18/2024 5:40 PM EST Anticoagulation Pharmacy, [facility] [address] [place] [address] [facility] [address] [place] [address] 08/26/2024 2:10 PM EST Office Visit Pharmacy, [facility] [address] [place] [address] [facility] [address] [place] [address] 01/14/2025 12:20 PM EDT Office Visit Family Practice [facility] [address] [place] [address] Anabel Ortiz MD [address] [place] [address] Health Maintenance Due Date Last Done Comments [...] this encounter Medical Devices Implanted Type Area Sales And Marketing Agent Device Identifier Shelf Expiration Date Model / Serial / Lot Cath Thermodilution 6fr - [id number] Implanted:Qty: 1 on 04/20/2023 at [facility] [employer] MAC[place] [id number] 11/13/2024 [id number] / / [id number] Valve Aortic [facility] 21mm - [id number] - [id number] Implanted:Qty: 1 on 04/23/2023 by Zbigniew Linder MD at [place] [facility] N/A: Heart [employer] [id number] 09/04/2028 ONXACE-2 [id number] / [id number] Suture Steel 6 B&S19 M654g - [id number] Implanted:Qty: 8 on 04/23/2023 by Zbigniew Linder MD at [place] [facility] N/A: Sternum JNJ : [employer] 12/07/2027 [...] 04/20/2023 1:49 AM 04/23/2023 6:21 PM This orde r reflects the patients wishes and were consensually agreed upon. Question Answer Comments Discussion of Advance Directives occurred with: Patient * Full Code Date Activated Date Inactivated Comments 11/11/2018 9:24 AM 11/11/2018 2:24 PM This order ref lects the patients wishes and were consensually agreed upon. Care Teams Charge Weigher Relationship Specialty Start Date End Date Anabel Ortiz MD [address] [facility] [place] [address] PCP - General Internal Medicine 07/25/24 documented as of this encounter
--- OUTSIDE RECORDS SUMMARY | 2024-10-10 23:08 | External Medical Summary | Summary of Care ---
Author Name Unknown Organization [facility] Address [address] [place] [address] Phone [phone] Care Team Providers Care Solution Advisor Name Role Phone Anabel Ortiz MD Primary Care Provider Reason for Visit * Reason Onset Date Comments Appointment 09/01/2024 Encounter Details Date Type Department Care Team (Late st Contact Info) Description 09/01/2024 Telephone Pharmacy, [place] [address] [place] [address] [facility] [address] [place] [address] Appointment Allergies Active Allergy Reactions Criticality Noted Date Comments Erythromycin 07/06/1997 Stomach pain documented as of this encounter (statuses as of 09/01/2024) Medications MULTIVITAMINS PO TABS Take 1 Tablet [...] Tablet by mouth in the morning. Per [facility] instructions. 30 Tablet 5 5 Active NovoLIN [...] as of this encounter (statuses as of 09/01/2024) Active Problems Problem Noted Date Diagnosed Date [...] as of this encounter (statuses as of 09/01/2024) Resolved Problems Problem Noted Date Diagnosed Date [...] as of this encounter (statuses as of 09/01/2024) Immunizations Name Administration Dates Next Due COVID-19 mRNA, LNP-s, No Pre serve, 2-Dose Series (Moderna) 11/25/2020,10/28/2020 Hepatitis B, 20+ yrs 05/19/2015,11/19/2014,05/06 PPD 05/06/2014,05/18/2009 Pneumococcal Conjugate Vacci ne, 20-valent ([id number]) 01/19/2022 Pneumococcal Polysaccharide PPV23 (Pneumovax) 08/22/2013 Seasonal [...] Industry Job Start Date Job End Date [employer] work Not on file Not on file [...] encounter Miscellaneous Notes * Telephone Encounter - Navin Breaux, [facility] - 09/01/2024 9:44 AM EST Appears there was a typo for date of next [facility] request. Please collect PT/INR tomorrow 09/02. Thanks, Navin Breaux, PharmD Clinical Pharmacist - Back Digger Operator [facility] 09/01/2024, 9:44 AM documented in this encounter Plan of Treatment Upcoming Encounters Date Type Department Care Team (Latest Contact Info) Description 09/01/2024 5:30 PM EST Anticoagulation Pharmacy, [facility] [address] [place] [address] [facility] [address] [place] [address] History of mechanical aortic valve replacement*; S/P aortic valve replacement 09/02/2024 7:00 AM EST Laboratory Lab Mobile Phlebotomy [place] [address] [facility] [place] [address] [facility] Mobile Home Draw [facility] [place] [address] 09/02/2024 5:30 PM EST Anticoagulation Pharmacy, [facility] [address] [place] [address] [facility] [address] [place] [address] 01/14/2025 12:20 PM EDT Office Visit Family Practice [facility] [address] [place] [address] Anabel Ortiz MD [address] [place] [address] Health Maintenance Due Date Last Done Comments [...] this encounter Medical Devices Implanted Type Area Welder Gas Tungsten Arc Device Identifier Shelf Expiration Date Model / Serial / Lot Cath Thermodilution 6fr - [id number] Implanted:Qty: 1 on [place]23 [place] [facility] [place] [employer] [id number] 11/13/2024 [id number] / / [id number] Valve [facility]ortic [facility] - [id number] - [id number] Implanted:Qty: 1 on 04/23/2023 by Zbigniew Linder [place] [facility] [place]/A: Heart [employer] [id number] 09/04/2028 ONXACE-2 [id number] / [id number] Suture Steel 6 B&S19 M654g - [id number] Implanted:Qty: 8 on 04/23/2023 by Zbigniew Linder [place] [facility] [place]/A: [...] and were consensually agreed upon. Care Teams Solution Advisor Relationship Specialty Start Date End Date Anabel Ortiz MD [address] [place] [address] PCP - General Internal Medicine 07/25/24 documented as of this encounter
--- OUTSIDE RECORDS SUMMARY | 2024-10-10 23:08 | External Medical Summary ---
Author Name Unknown Address Unknown Organization [id number]:LABORATORY [facility] - [address] [place] [address] Laboratory Report Ordering Provider Test Date Status PETRA GOMES 08/18/2024 09:51:00 Final Warfarin Therapy
INR: 2 .0-3.0 conventional anticoagulation
INR: 2.5- 3.5 high intensity anticoagulation Observation Date Value Abnormality Reference (Units ) Status PT 08/18/2024 09:51:00 16.8 Above high normal 11 .6-15.2 (seconds) Final INR 08/18/2024 09:51:00 1.4 Above high normal 0. 8-1.2 Final Performing Location LABORATORY [facility] - [address] [place] [address]
--- OUTSIDE RECORDS SUMMARY | 2024-10-10 23:08 | External Medical Summary ---
Author Name Unknown Address Unknown Organization [id number]:LABORATORY [facility] - [address] [place] [address] Laboratory Report Ordering Provider Test Date Status PETRA GOMES 08/21/2024 10:59:00 Final Warfarin Therapy
INR: 2 .0-3.0 conventional anticoagulation
INR: 2.5- 3.5 high intensity anticoagulation Observation Date Value Abnormality Reference (Units ) Status PT 08/21/2024 10:59:00 17.7 Above high normal 11 .6-15.2 (seconds) Final INR 08/21/2024 10:59:00 1.4 Above high normal 0. 8-1.2 Final Performing Location LABORATORY [facility] - [address] [place] [address]
--- OUTSIDE RECORDS SUMMARY | 2024-10-10 23:08 | External Medical Summary ---
Author Name Unknown Address Unknown Organization [id number]:[facility] [place] [address] [place] [address] Laboratory Report Ordering Provider Test Date Status PETRA GOMES 09/02/2024 10:20:00 Final Warfarin Therapy
INR: 2 .0-3.0 conventional anticoagulation
INR: 2.5- 3.5 high intensity anticoagulation Observation Date Value Abnormality Reference (Units ) Status PT 09/02/2024 10:20:00 16.5 Above high normal 11 .6-15.2 (seconds) Final INR 09/02/2024 10:20:00 1.3 Above high normal 0. 8-1.2 Final Performing Location [facility] - [address] [place] [address]
--- OUTSIDE RECORDS SUMMARY | 2024-10-10 23:08 | External Medical Summary | Summary of Care ---
Author Name Unknown Organization [facility] Address [address] [facility] [place] [address] Phone [phone] Care Team Providers Care Right Of Way Manager Name Role Phone Anabel Ortiz MD Primary Care Provider Reason for Visit * Reason Comments Dosage Adjustment Via Phone (anticoag Cl inic) Encounter Details Date Type Department Care Team (Latest Contact Info) Description 08/27/2024 7:00 AM EST Anticoagulation Pharmacy, [facility] [address] [place] [address] [facility] [place] [address] History of mechanical aortic valve replacement*; S/P aortic valve replacement Allergies Active Allergy Reactions Criticality Noted Date Comments Erythromycin 07/06/1997 Stomach pain documented as of this encounter (statuses as of 08/27/2024) Medications MULTIVITAMINS PO TABS Take 1 Tablet [...] as of this encounter (statuses as of 08/27/2024) Active Problems Problem Noted Date Diagnosed Date [...] as of this encounter (statuses as of 08/27/2024) Resolved Problems Problem Noted Date Diagnosed Date [...] as of this encounter (statuses as of 08/27/2024) Immunizations Name Administration Dates Next Due COVID-19 mRNA, LNP-s, No Pre serve, 2-Dose Series (Moderna) 11/25/2020,10/28/2020 Hepatitis B, 20+ yrs 05/19/2015,11/19/2014,05/06 PPD 05/06/2014,05/18/2009 Pneumococcal Conjugate Vacci ne, 20-valent ([id number]) 01/19/2022 Pneumococcal Polysaccharide PPV23 (Pneumovax) 08/22/2013 Seasonal [...] Industry Job Start Date Job End Date [employer] work Not on file Not on file [...] this encounter Progress Notes * Amna Ruffin, [facility] - 08/27/2024 8:44 AM EST Medication Therapy Disease Management - Anticoagulation Patient: Derek Tristan | : 1960 Subjective Contacts Contact Date/Time Type Contact Phone/Fax 08/27/2024 08:45 AM EST Phone (Outgoing) Derek Tristan (Self) [phone] (M) Patient-Reported Symptoms: Patient Findings Positives: Extra doses (patient states he has been taking 15 mg daily since last INR) Negatives: Signs/symptoms of thrombosis, Signs/symptoms of bleeding, Change in health, Change in alcohol use, Change in activity, Upcoming invasive procedure, Missed doses, Change in medications, Change in diet/appetite, Bruising Objective Current Warfarin Dose As of 08/27/2024 Warfarin maintenance plan: No maintenance plan INR Result As of 08/27/2024 INR goal: 1.5-2.0 INR used for dosing: >9.0 (08/26/2024) Assessment & Plan Warfarin Plan As of 08/27/2024 Full warfarin instructions: 08/27: Hold; 08/28: Hold; 08/29: Hold; 08/30: 7.5 mg; 08/31: 7.5 mg Next INR check: 09/01/2024 Repeat PT/INR in 5 day(s) on 09/01 Weekly dose: not changed Additional Dosing Information: I spent a total of 10-19 minutes (exact time 10 mins) on the date of service in preparation, delivery, and documentation of the care provided to Derek Tristan excluding any time spent in the performance of separately billed services or time spent by another provider/QHP. Amna Ruffin [facility] Clinical Pharmacist 08/27/2024, 8:48 AM documented in this encounter Plan of Treatment Upcoming Encounters Date Type Department Care Team (Late st Contact Info) Description 09/01/2024 5:30 PM EST Anticoagulation Pharmacy, [facility] [address] [place] [address] [facility] [address] [place] [address] 09/29/2024 7:05 AM EDT Laboratory Lab Mobile Phlebotomy [facility] [address] [place] [address] [facility] Mobile Home Draw [address] [place] [address] 01/14/2025 12:20 PM EDT Office Visit Family Practice [facility] [address] [place] [address] Anabel Ortiz MD [address] [place] [address] Health Maintenance Due Date Last Done Comments [...] this encounter Medical Devices Implanted Type Area Air Cargo Ground Operations Supervisor Device Identifier Shelf Expiration Date Model / Serial / Lot Cath Thermodilution 6fr - [id number] Implanted:Qty: 1 on 04/20/2023 at [facility] [place] [employer] [id number] 11/13/2024 [id number] / / [id number] Valve Aortic Mech 21mm - [id number] - [id number] Implanted:Qty: 1 on 04/23/2023 by Zbigniew Linder MD at [place] [facility] N/A: Heart [employer] [id number] 09/04/2028 ONXACE-2 [id number] / [id number] Suture Steel 6 B&S19 M654g - [id number] Implanted:Qty: 8 on 04/23/2023 by Zbigniew Linder MD at [place] [facility] N/A: Sternum JNJ : [employer] 12/07/2027 [...] and were consensually agreed upon. Care Teams Right Of Way Manager Relationship Specialty Start Date End Date Anabel Ortiz MD [address] [place] [address] PCP - General Internal Medicine 07/25/24 documented as of this encounter"
--- OUTSIDE RECORDS SUMMARY | 2024-10-10 23:08 | External Medical Summary | Summary of Care ---
Author Name Unknown Organization [facility] Address [address] [address] Phone [phone] Care Team Providers Care Jacquard Loom Heddles Tier Name Role Phone Anabel Ortiz MD Primary Care Provider Reason for Visit * Reason Comments Dosage Adjustment Via Phone (anticoag Cl inic) Encounter Details Date Type Department Care Team (Latest Contact Info) Description 08/21/2024 5:30 PM EST Anticoagulation Pharmacy, [facility] [address] [place] [address] [facility] [place] [address] History of mechanical aortic valve replacement*; S/P aortic valve replacement Allergies Active Allergy Reactions Criticality Noted Date Comments Erythromycin 07/06/1997 Stomach pain documented as of this encounter (statuses as of 08/21/2024) Medications MULTIVITAMINS PO TABS Take 1 Tablet [...] as of this encounter (statuses as of 08/21/2024) Active Problems Problem Noted Date Diagnosed Date [...] as of this encounter (statuses as of 08/21/2024) Resolved Problems Problem Noted Date Diagnosed Date [...] as of this encounter (statuses as of 08/21/2024) Immunizations Name Administration Dates Next Due COVID-19 mRNA, LNP-s, No Pre serve, 2-Dose Series (Moderna) 11/25/2020,10/28/2020 Hepatitis B, 20+ yrs 05/19/2015,11/19/2014,05/06 PPD 05/06/2014,05/18/2009 Pneumococcal Conjugate Vacci ne, 20-valent ([id number]) 01/19/2022 Pneumococcal Polysaccharide PPV23 (Pneumovax) 08/22/2013 Seasonal [...] Industry Job Start Date Job End Date [employer] work Not on file Not on file [...] Progress Notes * Amna Ruffin, [facility] - 08/21/2024 4:13 PM EST Medication Therapy Disease Management - Anticoagulation Patient: Derek Tristan | : 1960 Subjective Contacts Contact Date/Time Type Contact Phone/Fax 08/21/2024 04:11 PM EST Phone (Outgoing) Derek Tristan (Self) [phone] (M) Left Message Patient-Reported Symptoms: Objective Current Warfarin Dose As of 08/21/2024 Warfarin maintenance plan: No maintenance plan INR Result As of 08/21/2024 INR goal: 1.5-2.0 INR used for dosing: -- Assessment & Plan Warfarin Plan As of 08/21/2024 Full warfarin instructions: 08/21: 7.5 mg Next INR check: 08/22/2024 Repeat PT/INR in 1 day(s) Weekly dose: not changed Additional Dosing Information: I spent a total of 10-19 minutes (exact time 10 mins) on the date of service in preparation, delivery, and documentation of the care provided to Derek Tristan excluding any time spent in the performance of separately billed services or time spent by another provider/QHP. Amna Ruffin [facility] Clinical Pharmacist 08/21/2024, 4:15 PM documented in this encounter Plan of Treatment Upcoming Encounters Date Type Department Care Team (Late st Contact Info) Description 08/22/2024 7:00 AM EST Anticoagulation Pharmacy, [facility] [address] [place] [address] [facility] [address] [place] [address] 08/26/2024 2:10 PM EST Office Visit Pharmacy, [facility] [address] [place] [address] [facility] [address] [place] [address] 01/14/2025 12:20 PM EDT Office Visit Family Practice [facility] [address] [place] [address] Anabel Ortiz MD [address] [place] [address] Health Maintenance Due Date Last Done Comments [...] this encounter Medical Devices Implanted Type Area Ore Puncher Device Identifier Shelf Expiration Date Model / Serial / Lot Cath Thermodilution 6fr - [id number] Implanted:Qty: 1 on 04/20/2023 at [facility] [place] [employer] [id number] 11/13/2024 [id number] / / [id number] Valve Aortic Mech 21mm - [id number] - [id number] Implanted:Qty: 1 on 04/23/2023 by Zbigniew Linder MD at OR [facility] N/A: Heart [employer] [id number] 09/04/2028 ONXACE-2 [id number] / [id number] Suture Steel 6 B&S19 M654g - [id number] Implanted:Qty: 8 on 04/23/2023 by Zbigniew Linder MD at OR [facility] N/A: Sternum JNJ : [employer] 12/07/2027 [...] and were consensually agreed upon. Care Teams Jacquard Loom Heddles Tier Relationship Specialty Start Date End Date Anabel Ortiz MD [address] [place] [address] [place] [address] PCP - General Internal Medicine 07/25/24 documented as of this encounter"
--- OUTSIDE RECORDS SUMMARY | 2024-10-10 23:08 | External Medical Summary | Summary of Care ---
Author Name Unknown Organization [facility] Address [address] [facility] [place] [address] Phone [phone] Care Team Providers Care Police Surgeon Name Role Phone Anabel Ortiz MD Primary Care Provider Reason for Visit * Reason Comments Dosage Adjustment Via Phone (anticoag Cl inic) Encounter Details Date Type Department Care Team (Latest Contact Info) Description 08/26/2024 5:30 PM EST Anticoagulation Pharmacy, [facility] [address] [place] [address] [facility] [place] [address] History of mechanical aortic valve replacement*; S/P [...] PPD 05/06/2014,05/18/2009 Pneumococcal Conjugate Vacci ne, 20-valent ([id number]) 01/19/2022 Pneumococcal Polysaccharide PPV23 (Pneumovax) 08/22/2013 Seasonal [...] Industry Job Start Date Job End Date [employer] work Not on file Not on file [...] documented in this encounter Progress Notes * [place], [facility] - 08/26/2024 4:03 PM EST Medication Therapy Disease Management - Anticoagulation Patient: Derek Tristan | : 1960 Contacts Contact Date/Time Type Contact Phone/Fax 08/26/2024 04:09 PM EST Phone (Outgoing) Derek Tristan (Self) [phone] (M) Left Message Patient got INR drawn from [facility] today but INR has not yet resulted. Patient has no maintenance plan at this time. Called patient and left voicemail regarding his warfarin dose for tonight and instructed him that we will follow up with further instructions tomorrow based on the result. [place] [facility] Clinical Pharmacist 08/26/2024, 4:07 PM documented in this encounter Plan of Treatment Upcoming Encounters Date Type Department Care Team (Late st Contact Info) Description 08/27/2024 7:00 AM EST Anticoagulation Pharmacy, [facility] [address] [place] [address] [facility] [address] [place] [address] 01/14/2025 12:20 PM EDT Office Visit Family Practice [facility] [address] [place] [address] Anabel Ortiz MD [address] [place] [address] Health Maintenance Due Date Last Done Comments [...] this encounter Medical Devices Implanted Type Area Legal Archivist Device Identifier Shelf Expiration Date Model / Serial / Lot Cath Thermodilution 6fr - [id number] Implanted:Qty: 1 on 04/20/2023 at [facility] [employer] [id number] 11/13/2024 [id number] / / [id number] Valve Aortic [facility] 21mm - [id number] - [id number] Implanted:Qty: 1 on 04/23/2023 by Zbigniwe Linder MD at [place] [facility] N/A: Heart [employer] [id number] 09/04/2028 ONXACE-2 [id number] / [id number] Suture Steel 6 B&S19 M654g - [id number] Implanted:Qty: 8 on 04/23/2023 by Zbigniew Linder MD at [place] [facility] N/A: Sternum JNJ : [...] and were consensually agreed upon. Care Teams Police Surgeon Relationship Specialty Start Date End Date Anabel Ortiz MD [address] [place] [address] PCP - General Internal Medicine 07/25/24 documented as of this encounter"
--- OUTSIDE RECORDS SUMMARY | 2024-10-10 23:09 | External Medical Summary ---
Author Name Unknown Address Unknown Organization K0G[facility] [address] [place] [address] Laboratory Report Ordering Provider Test Date Status ADELIA BROWN 08/09/2024 07:29:37 Final Warfarin Therapy
INR: 2 .0-3.0 conventional anticoagulation
INR: 2.5- 3.5 high intensity anticoagulation Observation Date Value Abnormality Reference (Units ) Status PT 08/09/2024 07:29:37 23.3 Above high normal 11 .6-15.2 (seconds) Final INR 08/09/2024 07:29:37 2.0 Above high normal 0. 8-1.2 Final Performing Location [facility] [address] [place] [address]
--- OUTSIDE RECORDS SUMMARY | 2024-10-10 23:09 | External Medical Summary ---
Author Name Unknown Address Unknown Organization K09:[facility] [place] [address] Laboratory Report Ordering Provider Test Date Status HY,DEPAMPHILIS 08/11/2024 05:44:43 Final Warfarin Therapy
INR: 2 .0-3.0 conventional anticoagulation
INR: 2.5- 3.5 high intensity anticoagulation Observation Date Value Abnormality Reference (Units ) Status PT 08/11/2024 05:44:43 27.0 Above high normal 11 .6-15.2 (seconds) Final INR 08/11/2024 05:44:43 2.5 Above high normal 0. 8-1.2 Final Performing Location [facility] [place] [address]
--- OUTSIDE RECORDS SUMMARY | 2024-10-10 23:09 | External Medical Summary | Summary of Care ---
Author Name Unknown Organization [facility] Address [address] [place] [address] Phone [phone] Care Team Providers Care Minute Clerk For Basic Traffic Name Role Phone Anabel Ortiz MD Primary Care Provider Reason for Referral * Ancillary Services (Within 3 days (urgent)) - Authorized Specialty Diagnoses / Procedures Referred By Contac t Referred To Contact Administrative Accountant Diagnoses History of mechanical aortic valve replacement S/P aortic valve replacement Amna Ruffin, [facility] [address] [place] [address] Phone: tel: fax: Referral ID Status Reason Start Date Expiration Date Visits Requested Visits Authorized [id number] Authorized Ancillary Services Required 08/13/2024 999 999 Question Answer Referral Priority Within 3 days (urgent) Where should this appointment be scheduled? Eduarda Comments Is Patient homebound? Yes All sections of this form must be filled out completely. Forms with missing or illegible information will be returned for completion. This form should not be modified in any way. Forms that have been modified will be returned. This form may not be submitted by a home health agency. It must be complete and submitted by the ordering provider. One full business day lead time is required and service will be scheduled based on the next service day for the [facility] Home Phlebotomy does not service every geographical location on a daily basis. Contact [facility] Client Services at to find out service days for a specific location. Medical Laboratory [address] [place] [id number] Дмитрий Turner M.D. Director and Director [employer] Patient Name: Derek Tristan : 1960 Sex: male Address [address] [place] [id number] Provider: @REF@? Anabel Ortiz MD? Diagnosis: (Z95.2) History of mechanical aortic valve replacement (primary encounter diagnosis) (Z95.2) S/P aortic valve replacement Tests Requested PT/INR - as directed starting August 10, 2024 Reason for Visit * Reason Comments Dosage Adjustment Via Phone (anticoag Cl inic) * Evaluate & Treat - Unlimited Visits (Within 3 days (urgent)) - Authorized Specialty Diagnoses / Procedures Referred By Contronaldo t Referred To Contact [facility] / Pharmacy Diagnoses S/P aortic valve replacement Anabel Ortiz MD [address] [place] [address] Phone: tel: fax: Referral ID Status Reason Start Date Expiration Date Visits Requested Visits Authorized [id number] Authorized Specialty Services Required 08/13/2024 02/09/2025 99 99 Encounter Details Date Type Department Care Team (Latest Contact Info) Description 08/13/2024 5:10 PM EST Anticoagulation Pharmacy, [facility] [address] [facility] [place] [address] [facility] [address] [facility] [place] [address] Anticoagulation management encounter*; History of mechanical aortic valve replacement; S/P aortic valve replacement Allergies Active Allergy Reactions Criticality Noted Date Comments Erythromycin 07/06/1997 Stomach pain documented as of this encounter (statuses as of 08/13/2024) Medications MULTIVITAMINS PO TABS Take 1 Tablet [...] Tablet by mouth in the morning. Per [facility] instructions. 30 Tablet 5 5 Active NovoLIN [...] 1 Capsule before bedtime. 60 Capsule 2 Active documented as of this encounter (statuses as of 08/13/2024) Active Problems Problem Noted Date Diagnosed Date [...] as of this encounter (statuses as of 08/13/2024) Resolved Problems Problem Noted Date Diagnosed Date [...] as of this encounter (statuses as of 08/13/2024) Immunizations Name Administration Dates Next Due COVID-19 mRNA, LNP-s, No Pre serve, 2-Dose Series (Moderna) 11/25/2020,10/28/2020 Hepatitis B, 20+ yrs 05/19/2015,11/19/2014,05/06 PPD 05/06/2014,05/18/2009 Pneumococcal Conjugate Vacci ne, 20-valent ([id number]) 01/19/2022 Pneumococcal Polysaccharide PPV23 (Pneumovax) 08/22/2013 Seasonal [...] Industry Job Start Date Job End Date [employer] work Not on file Not on file [...] this encounter Progress Notes * Amna Ruffin soheila - 08/13/2024 12:55 PM EST Anticoagulation referral for management of: Warfarin Indication and INR goal for Warfarin Management: Valves: Mechanical On-X AVR (1.5 - 2.0 indefinitely) Relevant History: non-compliance Enoxaparin bridging required? No Patient discharged from [facility] on 08[facility]. Patient taking warfarin 7.5 mg daily. Recommending to continue current dose, will repeat pt/in on 08/15 via [facility] (referral placed today). [facility] to follow up with phone call on 08/15 with results. Amna Ruffin, Pharm D, BCACP Clinical Pharmacist 08/13/2024, 12:56 PM documented in this encounter Plan of Treatment Upcoming Encounters Date Type Department Care Team (Late st Contact Info) Description 08/14/2024 7:00 AM EST Laboratory Lab [facility] [address] [place] [address] [facility] Draw [address] [place] [address] 08/15/2024 5:30 PM EST [facility] [address] [place] [address] [facility] [place] [address] 08/26/2024 2:10 PM EST [facility] [place] [address] [place] [address] [facility] [place] [address] 01/14/2025 12:20 PM EDT [facility] [address] [place] [address] Anabel Ortiz MD [address] [place] [address] Scheduled Orders Name Type Priority Associated Diagnoses Orde r Schedule PT INR Lab Routine History of mechanical aortic valve replacement S/P aortic valve replacement Anticoagulation management encounter 26 Occurrences starting 08/13/2024 until 08/13/2025 INR FINGERSTICK, POINT OF CARE Point of Care Testing - Unsolicited Results STAT History of mechanical aortic valve replacement S/P aortic valve replacement Anticoagulation management encounter Every 2 Weeks for 26 Occurrences starting 08/13/2024 until 08/13/2025 Scheduled Referrals Name Type Priority Associated Diagnoses Orde r Schedule HOME PHLEBOTOMY REFERRAL OP Referral Within 3 days (urgent) History of mechanical aortic valve replacement S/P aortic valve replacement Ordered: 08/13/2024 Health Maintenance Due Date Last Done Comments [...] this encounter Medical Devices Implanted Type Area Ergonomist Device Identifier Shelf Expiration Date Model / Serial / Lot Cath Thermodilution 6fr - [id number] Implanted:Qty: 1 on [place]/2023 [place] [facility] [facility] [place] [employer] [id number] 11/13/2024 [id number] / / [id number] Valve Aortic Mech 21mm - [id number] - [id number] Implanted:Qty: 1 on 04/23/2023 by Zbigniew Linder MD [place] [facility] [place]: Heart [employer] [id number] 09/04/2028 ONXACE-2 [id number] / [id number] Suture Steel 6 B&S19 M654g - [id number] Implanted:Qty: 8 on 04/23/2023 by Zbigniew Linder MD [place] [facility] [place]A: [...] and were consensually agreed upon. Care Teams Minute Clerk For Basic Traffic Relationship Specialty Start Date End Date Anabel Ortiz MD [address] [place] [address] PCP - General Internal Medicine 07/25/24 documented as of this encounter
--- OUTSIDE RECORDS SUMMARY | 2024-10-10 23:09 | External Medical Summary | Summary of Care ---
Author Name Unknown Organization [facility] Address [address] [place] [address] Phone [phone] Care Team Providers Care Lease Administration Analyst Name Role Phone Anabel Ortiz MD Primary Care Provider Reason for Referral * Evaluate & Treat - Unlimited Visits (Within 3 days (urgent)) - Authorized Specialty Diagnoses / Procedures Referred By Contronaldo raza Referred To Contact [facility] / Pharmacy Diagnoses S/P aortic valve replacement Anabel Ortiz MD [address] [place] [address] Phone: tel: fax: Referral ID Status Reason Start Date Expiration Date Visits Requested Visits Authorized [id number] Authorized Specialty Services Required 08/13/2024 02/09/2025 99 99 Question Answer Referral Priority Within 3 days (urgent) Where should this appointment be scheduled? [facility] Anticoagulation referral for management of: Warfarin Indication and INR goal for Warfarin Management: Valves: Mechanical On-X AVR (1.5 - 2.0 indefinitely) Relevant History: non-compliance Enoxaparin bridging required? No Minimum frequency patient should be seen in person for medication management: as appropriate per clinical condition and patient status By my signature, I understand that my patient Derek Tristan will have his medication therapy managed by the [facility] Medication Therapy Disease Management [facility] ([facility]) per established policies, procedures, and protocols. I also certify that this referral may serve as an initiation of service for the management of drug therapy in the above noted patient. [facility] providers will be responsible for scheduling patient visits, obtaining appropriate laboratory studies, and adjusting medication management therapy per patient's need, in addition to those roles spelled out in the clinic policy, procedures, and drug management protocols. I understand that the service provided by the [facility] Clinic is voluntary and have informed patient that they can refuse the service at their discretion. I am aware that the [facility] will provide me with a copy of the patient encounter via my [employer]. I authorize the [facility] to carry out these activities on my behalf. I consider this program to be a necessary part of the patient's medical care. Anabel Ortiz MD * Evaluate & Treat - Unlimited Visits (Within 30 days (routine)) - Authorized Specialty Diagnoses / Procedures Referred By Adryan t Referred To Contact Pharmacist / Pharmacy Diagnoses Type 2 diabetes mellitus with diabetic mononeuropathy, with long-term current use of insulin ([facility]) Anabel Ortiz MD [address] [place] [address] Phone: tel: fax: Referral ID Status Reason Start Date Expiration Date Visits Requested Visits Authorized [id number] Authorized Specialty Services Required 08/13/2024 02/09/2025 99 99 Question Answer Referral Priority Within 30 days (routine) Where should this appointment be scheduled? [facility] Referring Provider Role: Primary Care Reason for Referral: DM Target A1c: < 7 Comments Pharmacist Medication Therapy Management: Minimum frequency patient should be seen in person for medication management: as appropriate per clinical condition and patient status By my signature, I understand that my patient Derek Tristan will have his medication therapy managed by the [facility] Medication Therapy Disease Management [facility] ([facility]) per established policies, procedures, and protocols. I also certify that this referral may serve as an initiation of service for the management of drug therapy in the above noted patient. [facility] providers will be responsible for scheduling patient visits, obtaining appropriate laboratory studies, and adjusting medication management therapy per patient's need, in addition to those roles spelled out in the clinic policy, procedures, and drug management protocols. I understand that the service provided by the [facility] is voluntary and have informed patient that they can refuse the service at their discretion. I am aware that the [facility] will provide me with a copy of the patient encounter via my gripNote [employer]. I authorize the [facility] to carry out these activities on my behalf. I consider this program to be a necessary part of the patient's medical care. Anabel Ortiz MD Reason for Visit * Reason Onset Date Comments Hospital Follow-Up [facility], then [facility] for L foot sore on heel, ambulatory problems, also has Jury Duty summons Immunizations 08/13/2024 Hospital Follow-Up 08/13/2024 Encounter Details Date Type Department Care Team (Latest Contact Info) Description 08/13/2024 11:00 AM EST Office Visit Family [facility] [address] [place] [address] Anabel Ortiz MD [address] [place] [address] Hospital discharge follow-up*; Diabetic ulcer of left foot associated with type 2 diabetes mellitus, unspecified part of foot, unspecified ulcer stage (HCC); Type 2 diabetes mellitus with diabetic mononeuropathy, with long-term current use of insulin (HCC); Type 2 diabetes mellitus with hemoglobin A1c goal of less than 7.0% ([facility]); Diabetic peripheral neuropathy ([facility]); Personal history of alcoholism ([facility]); COPD, group B, by GOLD 2017 classification ([facility]); S/P aortic valve replacement; Aortoiliac occlusive disease ([facility]); Need for fxuyawoaor-npittgw-jwsd ussis (Tdap) vaccine Allergies Active Allergy Reactions Criticality Noted Date Comments Erythromycin 07/06/1997 Stomach pain documented as of this encounter (statuses as of 08/14/2024) Medications MULTIVITAMINS PO TABS Take 1 Tablet by mouth every morning. Active Calcium Carbonate Antacid 500 MG Oral Tablet Chewable Take 1 Tablet by mouth as needed. As needed 06/07/20 15 Active ONETOUCH DELICA LANCETS 33G MISC TEST SUGAR DAILY 100 Each 5 01/22/20 18 Active ONETOUCH ULTRA BLUE STRPIndications :Type 2 diabetes mellitus with hemoglobin A1c goal of less than 7.0% (HCC) USE UP TO 4 TIMES A DAY DIRECTED. 100 Strip 11/09/19 19 Active Clopidogrel Bisulfate 75 MG Oral Tablet (pLAVix)Indicat ions:TIA (transient ischemic attack) Take 1 Tablet (75 mg) by mouth in the morning. In the morning.. 30 Tablet 11 06/05/20 22 Active Acetaminophen 500 MG Oral Tablet (Tylenol) Take 2 Tablets by mouth every 4 hours as needed. 08/01/19 22 Active Dicyclomine HCl 10 MG Oral Capsule (Bentyl) One tab up to 3x/day if needed for lower abdomen pain 90 Capsule 2 08/29/19 23 Active Omeprazole 20 MG Oral Capsule Delayed Release (PriLOSEC)Indic ations:Gastroes ophageal reflux disease without esophagitis Take 1 Capsule by mouth in the morning. 1 hour before the first meal of the day.. 90 Capsule 1 10/02/19 24 Active Rosuvastatin Calcium 40 MG Oral Tablet (Crestor)Indica tions:Dyslipide stewart, goal LDL below 70 Take 1 Tablet by mouth in the morning. 90 Tablet 10/02/19 24 Active Aspirin 81 MG Oral Tablet ChewableIndicat ions:History of mechanical aortic valve replacement Chew 1 Tablet by mouth in the morning with food 72 Tablet 4 03/17/20 24 Active Lisinopril 5 MG Oral Tablet (Prinivil) Take 1 Tablet by mouth in the morning. 06/06/20 24 Active Warfarin Sodium 7.5 MG Oral Tablet (Coumadin)Indic ations:S/P aortic valve replacement Take 1 Tablet by mouth in the morning. Per [facility] instructions . 30 Tablet 5 08/13/19 25 Active NovoLIN 70/30 FlexPen (70-30) 100 UNIT/ML Suspension Pen-injectorInd ications:Type 2 diabetes mellitus with hemoglobin A1c goal of less than 7.0% (HCC) Inject 33 units under the skin at breakfast and 22 units at dinner. 60 mL 3 08/13/19 25 Active Pregabalin 100 MG Oral Capsule (Lyrica)Indicat ions:Diabetic peripheral neuropathy (HCC) Take 1 Capsule by mouth in the morning and 1 Capsule before bedtime. 60 Capsule 2 08/13/19 25 Active Cyclobenzaprine HCl 5 MG Oral Tablet (Flexeril)Indic ations:Low back pain radiating to left lower extremity Take by mouth 1 Tablet 2 times a day as needed for Muscle spasms. 12 Tablet 03/31/20 22 025 Discontinued Metoprolol Succinate ER 25 MG Oral Tablet Extended Release 24 Hour (toPROL XL)Indications: HTN, goal below 130/80 Take 1 Tablet by mouth in the morning. 90 Tablet 3 11/17/19 23 025 Discontinued Furosemide 40 MG Oral Tablet (Lasix) Take 1 Tablet by mouth in the morning. 30 Tablet 04/27/20 23 025 Discontinued Potassium Chloride ER 10 MEQ Oral Tablet Extended Release Take 2 Tablets by mouth in the morning. 30 Tablet 04/27/20 025 Discontinued Warfarin Sodium 2.5 MG Oral Tablet (Coumadin) Take 1 Tablet by mouth in the morning. Per [facility] instructions . 025 Discontinued Gabapentin 300 MG Oral Capsule (Neurontin) Take 1 Capsule by mouth in the morning and 1 Capsule at noon and 1 Capsule before bedtime. 270 Capsule 3 06/10/20 24 025 Discontinued NovoLIN 70/30 FlexPen (70-30) 100 UNIT/ML Suspension Pen-injectorInd ications:Type 2 diabetes mellitus with hemoglobin A1c goal of less than 7.0% (HCC) Inject 33 Units under the skin in the morning and 33 Units in the evening. 60 mL 3 06/10/20 24 025 Discontinued(Re fill) DULoxetine HCl 30 MG Oral Capsule Delayed Release Particles (Cymbalta) Take 1 Capsule by mouth in the morning. Do not cut, crush or chew. 30 Capsule 5 06/18/20 24 025 Discontinued documented as of this encounter (statuses as of 08/14/2024) Active Problems Problem Noted Date Diagnosed Date [...] as of this encounter (statuses as of 08/14/2024) Resolved Problems Problem Noted Date Diagnosed Date [...] as of this encounter (statuses as of 08/14/2024) Immunizations Name Administration Dates Next Due COVID-19 mRNA, LNP-s, No Pre serve, 2-Dose Series (Moderna) 11/25/2020,10/28/2020 Hepatitis B, 20+ yrs 05/19/2015,11/19/2014,05/06 PPD 05/06/2014,05/18/2009 Pneumococcal Conjugate Vacci ne, 20-valent ([id number]) 01/19/2022 Pneumococcal Polysaccharide PPV23 (Pneumovax) 08/22/2013 Seasonal [...] Passive Smoke Exposure: Past Smokeless Tobacco: Never Tobacco Cessation:Counseling Given: Not Answered Comments:Working on quitting. Father smoked Alcohol Use Standard Drinks/Week Comments [...] Industry Job Start Date Job End Date [employer] work Not on file Not on file Not on file documented as of this encounter Last Filed Vital Signs Vital Sign Reading Time Taken Comments Blood Pressure 118/60 08/13/2024 11:15 AM EST Pulse 96 08/13/2024 11:15 AM EST Temperature 36.7 °C (98.1 °F) 08/13/2024 11:[address] Respiratory Rate 16 08/13/2024 11:15 AM EST Oxygen Saturation - - Inhaled Oxygen Concentration - - Weight 68 kg (150 lb) 08/13/2024 11:15 AM EST Height - - Body Mass Index 22.15 06/18/2024 8:36 AM EST documented in this encounter Functional Status * [...] Jil Ulrich LPN documented in this encounter Patient Instructions * Patient Instructions* Danuta Gramajo RN - 08/13/2024 11:25 AM EST ~~PATIENT INSTRUCTIONS FOR TDAP VACCINE~~ Possible side effects of TDAP vaccine, (tetanus shot), are usually mild and can include: 1. Soreness or redness at injection site 2. Low grade fever 3. Body aches You may use a fever / pain reducing medication as needed for these symptoms. LET YOUR DOCTOR KNOW IMMEDIATELY IF YOU HAVE DIFFICULTY BREATHING OR SWALLOWING, EXPERIENCE ITCHINGOF FEET OR HANDS, HAVE SWELLING OF EYES, FACE OR INSIDE OF NOSE. documented in this encounter Progress Notes * Anabel Ortiz MD - 08/13/2024 11:44 AM EST SUBJECTIVE: Derek Tristan is a 64 year old male. Chief Complaint Patient presents with Hospital Follow-Up [facility], [facility] for L foot sore on heel, ambulatory problems, also has [facility] Immunizations Hospital Follow-Up Recent Admission: Patient was recently admitted to [facility] from 07/24- and [facility] from 07/31-08/11 . The date of discharge was 08/11/24. Discharge summary from [facility] not available. We do have his warfarin dosing sheet. He was covered with Lovenox until INR was therapeutic. Lovenox was stopped 08/10/2024. He also brought his discharge medication list from [facility] which was reviewed in detail form medication reconciliation. Discharge summary from [facility] reviewed. Presented with pain in the left heel with purulent bloody discharge. Diagnosed with diabetic ulcer.Also had shortness of breath and cough. Respiratory panel positive for flu A. Admitted for management of hyperglycemia and pneumonia. Bilateral iliac angioplasty with stenting 07/28/2024 ID was consulted, did a course of linezolid and Levaquin, completed 08/11/2024. Has wound clinic appointment tomorrow with Yanick Rosa. Vascular surgeon was Dr Carlton. Has f/u appointment in October. In-home PT came yesterday. Thinks there will be RN coming to house. Reports taking his warfarin and other medications as prescribed. HPI: Patient Active Problem List Diagnosis Other allergic rhinitis Keratoderma, acquired Dermatophytosis of foot TENOSYNOVITIS FOOT-ANKLE Personal history of alcoholism ([facility]) HTN, goal below 130/80 Dyslipidemia, goal LDL below 100 Type 2 diabetes mellitus with hemoglobin A1c goal of less than 7.0% ([facility]) Gouty arthropathy Pulmonary nodules/lesions, multiple Current use of insulin ([facility]) Centrilobular emphysema ([facility]) ILD (interstitial lung disease) ([facility]) TIA (transient ischemic attack) Gastroesophageal reflux disease without esophagitis History of acute pancreatitis Uncontrolled type 2 diabetes mellitus with hyperglycemia ([facility]) Medical home patient encounter COPD, group B, by GOLD 2017 classification ([facility]) S/P aortic valve replacement Nonrheumatic aortic valve stenosis Encounter for dental examination Type 2 diabetes mellitus with diabetic mononeuropathy, with long-term current use of insulin ([facility]) Food insecurity History of mechanical aortic valve replacement Hip pain, left Diabetic peripheral neuropathy ([facility]) Aortoiliac occlusive disease ([facility]) Ambulatory dysfunction Diabetic ulcer of left foot ([facility]) Spinal stenosis, lumbar region with neurogenic claudication Current Outpatient Medications Medication Sig Dispense Refill MULTIVITAMINS PO TABS Take 1 Tablet by mouth every morning. Calcium Carbonate Antacid 500 MG Oral Tablet Chewable Take 1 Tablet by mouth as needed. As needed ONETOUCH DELICA LANCETS 33G MISC TEST SUGAR DAILY 100 Each 5 ONETOUCH ULTRA BLUE STRP USE UP TO 4 TIMES A DAY DIRECTED. 100 Strip 5 Clopidogrel Bisulfate 75 MG Oral Tablet (pLAVix) Take 1 Tablet (75 mg) by mouth in the morning. In the morning.. 30 Tablet 11 Acetaminophen 500 MG Oral Tablet (Tylenol) Take 2 Tablets by mouth every 4 hours as needed. Dicyclomine HCl 10 MG Oral Capsule (Bentyl) One tab up to 3x/day if needed for lower abdomen pain 90 Capsule 2 Omeprazole 20 MG Oral Capsule Delayed Release (PriLOSEC) Take 1 Capsule by mouth in the morning. 1 hour before the first meal of the day.. 90 Capsule 1 Rosuvastatin Calcium 40 MG Oral Tablet (Crestor) Take 1 Tablet by mouth in the morning. 90 Tablet 0 Aspirin 81 MG Oral Tablet Chewable Chew 1 Tablet by mouth in the morning with food 72 Tablet 4 Lisinopril 5 MG Oral Tablet (Prinivil) Take 1 Tablet by mouth in the morning. Warfarin Sodium 7.5 MG Oral Tablet (Coumadin) Take 1 Tablet by mouth in the morning. Per [facility] instructions. 30 Tablet 5 NovoLIN 70/30 FlexPen (70-30) 100 UNIT/ML Suspension Pen-injector Inject 33 units under the skin atbreakfast and 22 units at dinner. 60 mL 3 Pregabalin 100 MG Oral Capsule (Lyrica) Take 1 Capsule by mouth in the morning and 1 Capsule beforebedtime. 60 Capsule 2 No current facility-administered medications for this visit. Current and discharge medications have been reconciled. Review of patient's allergies indicates: Allergen Reactions Erythromycin Stomach pain OBJECTIVE: BP 118/60 (BP Site: Left Arm, BP Position: Sitting, BP Cuff Size: Regular) | Pulse 96 | Temp 98.1 °F (36.7 °C) (Tympanic) | Resp 16 | Wt 150 lb (68 kg) | BMI 22.15 kg/m² | BSA 1.82 m² REVIEW OF SYSTEMS: Review of Systems Constitutional: Negative for fatigue, fever and unexpected weight change. HENT: Negative for trouble swallowing. Eyes: Negative for visual disturbance. Needs new glasses Respiratory: Positive for cough (improving). Negative for shortness of breath. Quit smoking while in hospital and at [facility]. Cardiovascular: Negative for chest pain and palpitations. Gastrointestinal: Negative for diarrhea and vomiting. Endocrine: Negative for polydipsia and polyuria. Genitourinary: Negative for dysuria and hematuria. Musculoskeletal: Positive for back pain. Neurological: Positive for light-headedness. Hematological: Does not bruise/bleed easily. Psychiatric/Behavioral: Negative for dysphoric mood, hallucinations and sleep disturbance. PHYSICAL EXAM: BP 118/60 (BP Site: Left Arm, BP Position: Sitting, BP Cuff Size: Regular) | Pulse 96 | Temp 98.1 °F (36.7 °C) (Tympanic) | Resp 16 | Wt 150 lb (68 kg) | BMI 22.15 kg/m² | BSA 1.82 m² Physical Exam Vitals and nursing note reviewed. Constitutional: General: He is not in acute distress. Appearance: Normal appearance. Comments: Using a cane. Unsteady getting up from the chair but is okay after a moment. Can climb onto exam table with minimal assistance. HENT: Head: Normocephalic and atraumatic. Nose: Nose normal. Mouth/Throat: Mouth: Mucous membranes are moist. Pharynx: Oropharynx is clear. No oropharyngeal exudate. Eyes: Pupils: Pupils are equal, round, and reactive to light. Cardiovascular: Rate and Rhythm: Normal rate and regular rhythm. Heart sounds: Murmur heard. Pulmonary: Effort: Pulmonary effort is normal. Breath sounds: Normal breath sounds. Abdominal: General: Abdomen is flat. Bowel sounds are normal. There is no distension. Palpations: Abdomen is soft. There is no mass. Tenderness: There is no abdominal tenderness. There is no guarding or rebound. Hernia: No hernia is present. Musculoskeletal: Comments: Declines examination of left foot ulcer as it has a household to get his shoe on and off.Wearing sneakers today. Lymphadenopathy: Cervical: No cervical adenopathy. Neurological: General: No focal deficit present. Mental Status: He is alert. Psychiatric: Mood and Affect: Mood normal. Behavior: Behavior normal. ASSESSMENT: Hospital discharge follow-up (Primary) - DISCH MED RECON CUR MED LIS Diabetic ulcer of left foot associated with type 2 diabetes mellitus, unspecified part of foot, unspecified ulcer stage ([facility]) - RETURN TO WORK OR SCHOOL Type 2 diabetes mellitus with diabetic mononeuropathy, with long-term current use of insulin ([facility]) - ALBUMIN / CREATININE RATIO, URINE; Future; Expected date: 08/13/2024 - PHARMACIST MEDS THERAPY MGMT REFERRAL OP Type 2 diabetes mellitus with hemoglobin A1c goal of less than 7.0% ([facility]) - NovoLIN 70/30 FlexPen (70-30) 100 UNIT/ML Suspension Pen-injector; Inject 33 units under the skinat breakfast and 22 units at dinner. Diabetic peripheral neuropathy ([facility]) - RETURN TO WORK OR SCHOOL - Pregabalin 100 MG Oral Capsule (Lyrica); Take 1 Capsule by mouth in the morning and 1 Capsule before bedtime. Personal history of alcoholism ([facility]) COPD, group B, by GOLD 2017 classification ([facility]) S/P aortic valve replacement - Warfarin Sodium 7.5 MG Oral Tablet (Coumadin); Take 1 Tablet by mouth in the morning. Per [facility] instructions. - ANTI-COAGULATION REFERRAL OP Aortoiliac occlusive disease (HCC) Need for beypgoycbd-zharvky-xuauwpaft (Tdap) vaccine - TDAP (AGE 7 AND OLDER), [facility] pharmacist in to see patient to get him rescheduled for management of warfarin. Given he has anOn-X valve a goal is INR 1.5-2.0. Keep appointments with [facility]ound Clinic and home care. Note written for jury duty. Patient requests that we send this excuse to the court house. He is notable to drop it off their due to transportation issues and does not have any other way to get it tothem. Encouraged him to be consistent with his medications and follow up with [facility] about his diabetes is well Follow Up: Return in about 3 months (around 11/10/2024) for Return with Ortiz/AP. | For: Return with Ortiz/AP I spent a total of Greater than 55 mins (exact time 56 mins) minutes on the date of service in preparation, delivery, and documentation of the care provided to Derek Tristan excluding any time spent in performance of separately billed services. Anabel Ortiz MD * Danuta Gramajo RN - 08/13/2024 11:25 AM EST Immunization Administration Documentation Time Out Procedure Performed: Yes Patient Identified (Ask Name/Date of ): Yes Does the patient have a fever greater than 101 degrees today? No Patient allergic to latex? No VFC Stock: No Injection(s) verified: Yes, Injection Name: adecel Verified Side and Site: Yes Verified Shot(s) with Parent(s)/Patient: Yes Urine albumin/creatinine ratio ordered today. Provider aware. documented in this encounter Nursing Notes * Danuta Gramajo RN - 08/13/2024 11:29 AM EST Pre-Administration Time Out Procedure Performed: Yes Patient Identified (Ask Name/Date of ): Yes Does the patient have a fever greater than 101 degrees today? No Patient allergic to latex? No Has the patient ever fainted after receiving an injection? No VFC Stock: No Immunization(s) verified: Yes, Immunization Name: Flu, VIS Sheet(s) given: Yes Verified Side and Site: Yes Verified Shot(s) with Parent(s)/Patient: Yes documented in this encounter Plan of Treatment Upcoming Encounters Date Type Department Care Team (Late st Contact Info) Description 08/14/2024 7:00 AM EST Laboratory Lab Mobile [facility]le[facility] [address] [place] [address] [facility] Draw [address] [place] [address] Arrived 08/15/2024 5:30 PM EST Anticoagulation Pharmacy, [facility] [address] [place] [address] [address] [place] [address] 08/26/2024 2:10 PM EST Office Visit Pharmacy, [facility] [address] [place] [address] [address] [facility] [address] [facility] [place] [address] 01/14/2025 12:20 PM EDT Office Visit Family Practice [facility] [address] [place] [address] Anabel Ortiz MD [address] [place] [address] Scheduled Orders Name Type Priority Associated Diagnoses Orde r Schedule ALBUMIN / CREATININE RATIO, URINE Lab Routine Type 2 diabetes mellitus with diabetic mononeuropathy, with long-term current use of insulin (HCC) Expected: 08/13/2024, Expires: 08/13/2025 Scheduled Referrals Name Type Priority Associated Diagnoses Orde r Schedule PHARMACIST MEDS THERAPY MGMT REFERRAL OP Referral Within 30 days (routine) Type 2 diabetes mellitus with diabetic mononeuropathy, with long-term current use of insulin (HCC) Ordered: 08/13/2024 ANTI-COAGULATION REFERRAL OP Referral Within 3 days (urgent) S/P aortic valve replacement Ordered: 08/13/2024 Health [...] this encounter Medical Devices Implanted Type Area Cross Cut Sawyer Device Identifier Shelf Expiration Date Model / Serial / Lot Cath Thermodilution 6fr - [id number] Implanted:Qty: 1 on 04/20/2023 at [facility] [employer] [id number] 11/13/2024 [id number] / / [id number] Valve Aortic Mech 21mm - [id number] - [id number] Implanted:Qty: 1 on 04/23/2023 by Zbigniew Linder MD at OR [facility] N/A: Heart [employer] [id number] 09/04/2028 ONXACE-2 [id number] / [id number] Suture Steel 6 B&S19 M654g - [id number] Implanted:Qty: 8 on 04/23/2023 by Zbigniew Linder MD at OR [facility] N/A: Sternum JNJ : [employer] 12/07/2027 [id number] / / [id number] documented as of this encounter Visit Diagnoses Diagnosis Hospital discharge follow-up- Primary Other follow-up examination Diabetic ulcer of left foot associated with type 2 diabetes mellitus, unspecified part of foot, unspecified ulcer stage (HCC) Type 2 diabetes mellitus with diabetic mononeuropathy, with long-term current use of insulin (HCC) Type 2 diabetes mellitus with hemoglobin A1c goal of less than 7.0% (HCC) Diabetic peripheral neuropathy (HCC) Type II or unspecified type diabetes mellitus with neurological manifestations, not stated as uncontrolled Personal history of alcoholism (HCC) Personal history of alcoholism COPD, group B, by GOLD 2017 classification ([facility]) S/P aortic valve replacement Heart valve replaced by other means Aortoiliac occlusive disease (HCC) Other arterial embolism and thrombosis of abdominal aorta Need for nitxyrlbjy-vxsghlb-fnsfpdavj (Tdap) vaccine Need for prophylactic vaccination with combined bvcjvlhltb-xzqguha-sypnsesgt (DTP) vaccine documented in this encounter Advance Directives * [...] and were consensually agreed upon. Care Teams Lease Administration Analyst Relationship Specialty Start Date End Date Anabel Ortiz MD [address] [place] [address] PCP - General Internal Medicine 07/25/24 documented as of this encounter"
--- OUTSIDE RECORDS SUMMARY | 2024-10-10 23:09 | External Medical Summary ---
Author Name Unknown Address Unknown Organization K0G:[facility] [address] [place] [address] Laboratory Report Ordering Provider Test Date Status ADELIA BROWN 08/10/2024 06:45:36 Final Warfarin Therapy
INR: 2 .0-3.0 conventional anticoagulation
INR: 2.5- 3.5 high intensity anticoagulation Observation Date Value Abnormality Reference (Units ) Status PT 08/10/2024 06:45:36 23.8 Above high normal 11 .6-15.2 (seconds) Final INR 08/10/2024 06:45:36 2.1 Above high normal 0. 8-1.2 Final Performing Location [facility] [address] [place] [address]
--- OUTSIDE RECORDS SUMMARY | 2024-10-10 23:09 | External Medical Summary ---
Author Name Unknown Address Unknown Organization K09:[facility] [place] [address] Laboratory Report Ordering Provider Test Date Status ADELIA BROWN 08/08/2024 06:12:32 Final Observation Date Value Abnormality Reference (Units ) Status WBC, Total 08/08/2024 06:12:32 8.17 4.00-10.8 0 (K/uL) Final RBC 08/08/2024 06:12:32 3.71 4.50-5.25 (M/uL) Final Hemoglobin 08/08/2024 06:12:32 11.3 Below low normal 14 .0-16.8 (g/dL) Final HCT 08/08/2024 06:12:32 35.7 Below low normal 40. 0-48.4 (%) Final MCV 08/08/2024 06:12:32 96.2 82.0-99.5 (fL) Final MCH 08/08/2024 06:12:32 30.5 27.0-34.0 (pg) Final MCHC 08/08/2024 06:12:32 31.7 32.0-36.0 (g/dL) Final RDW 08/08/2024 06:12:32 14.9 11.5-15.5 (%) Final Platelets 08/08/2024 06:12:32 222 140-400 (K /uL) Final MPV 08/08/2024 06:12:32 10.5 6.6-11.1 ( fL) Final Performing Location [facility] [place] [address]
--- OUTSIDE RECORDS SUMMARY | 2024-10-10 23:09 | External Medical Summary ---
Author Name Unknown Address Unknown Organization K09:[facility] [place] [address] Laboratory Report Ordering Provider Test Date Status ADELIA BROWN 08/07/2024 06:16:35 Final Warfarin Therapy
INR: 2 .0-3.0 conventional anticoagulation
INR: 2.5- 3.5 high intensity anticoagulation Observation Date Value Abnormality Reference (Units ) Status PT 08/07/2024 06:16:35 21.6 Above high normal 11 .6-15.2 (seconds) Final INR 08/07/2024 06:16:35 1.9 Above high normal 0. 8-1.2 Final Performing Location [facility] [place] [address]
--- OUTSIDE RECORDS SUMMARY | 2024-10-10 23:09 | External Medical Summary | Summary of Care ---
Author Name Unknown Organization [facility] Address [address] [place] [facility] [place] [address] Phone [phone] Care Team Providers Care Coal Wheeler Name Role Phone Anabel Ortiz MD Primary Care Provider Encounter Details Date Type Department Care Team (Late st Contact Info) Description 08/13/2024 Telephone Family Practice [facility] [address] [place] [address] Anabel Ortiz MD [address] [place] [address] Allergies Active Allergy Reactions Criticality Noted Date [...] goal of less than 7.0% ([facility]) USE UP TO 4 TIMES A DAY [...] PPD 05/06/2014,05/18/2009 Pneumococcal Conjugate Vacci ne, 20-valent ([id number]) 01/19/2022 Pneumococcal Polysaccharide PPV23 (Pneumovax) 08/22/2013 Seasonal [...] Industry Job Start Date Job End Date [email or web address] work Not on file Not on file [...] Miscellaneous Notes * Telephone Encounter - Marielle Parry MED VERONICA - 08/15/2024 8:53 AM EST Sent in MyG * Telephone Encounter - Anabel Ortiz MD - 08/13/2024 5:59 PM EST Patient requests that we fax work note from his clinic visit 08/13/[address] with regard to jury duty. documented in this encounter Plan of Treatment Upcoming Encounters Date Type Department Care Team (Late st Contact Info) Description 08/18/2024 7:20 AM EST Laboratory Lab Mobile Phlebotomy [facility] [address] [place] [address] [facility], Gml Mobile Home Draw [address] [place] [address] 08/18/2024 5:40 PM EST Anticoagulation Pharmacy, [facility] [address] [place] [address] [facility] [address] [place] [place] [address] 08/26/2024 2:10 PM EST Office Visit Pharmacy, [facility] [address] [place] [address] [facility] [address] [place] [address] 01/14/2025 12:20 PM EDT Office Visit Family Practice [facility] [address] [place] [address] Anabel Ortiz MD [address] [place] [address] Health Maintenance Due Date Last Done Comments [...] this encounter Medical Devices Implanted Type Area Used Car Lot Attendant Device Identifier Shelf Expiration Date Model / Serial / Lot Cath Thermodilution 6fr - [id number] Implanted:Qty: 1 on 04/20/2023 at [facility]ARDI[facility] [employer] [id number] 11/13/2024 [id number] / / [id number] Valve Aortic Mech 21mm - [id number] - [id number] Implanted:Qty: 1 on 04/23/2023 by Zbigniew Linder MD at OR [facility] N/A: Heart [employer] [id number] 09/04/2028 ONXACE-2 [id number] / [id number] Suture Steel 6 B&S19 M654g - [id number] Implanted:Qty: 8 on 04/23/2023 by Zbigniew Linder MD at OR [facility] N/A: Sternum JNJ : [employer] 12/07/2027 [...] and were consensually agreed upon. Care Teams Coal Wheeler Relationship Specialty Start Date End Date Anabel Ortiz MD [address] [place] [address] PCP - General Internal Medicine 07/25/24 documented as of this encounter
--- OUTSIDE RECORDS SUMMARY | 2024-10-10 23:09 | External Medical Summary ---
Author Name Unknown Address Unknown Organization K09:[facility] [place] [address] Laboratory Report Ordering Provider Test Date Status ADELIA BROWN 08/01/2024 06:19:00 Final Observation Date Value Abnormality Reference (Units ) Status BUN 08/01/2024 06:19:00 19 6-20 (mg/dL) Final Creatinine 08/01/2024 06:19:00 1.2 0.6-1.2 (mg/dL) Final Glomerular filtration rate/1.73 sq M.predicted [Volume Rate/Area] in Serum, Plasma or Blood by Creatinine-based formula (CKD-EPI) 08/01/2024 06:19:00 70 >=60 (mL/min) Final eGFR is calculated based on the CKD-EPI 2020 equation. Sodium 08/01/2024 06:19:00 141 135-146 (m mol/L) Final Potassium 08/01/2024 06:19:00 4.8 3.5-5.1 (m mol/L) Final Cl 08/01/2024 06:19:00 108 Above high normal 98 -107 (mmol/L) Final CO2 08/01/2024 06:19:00 23 22-32 (mmo l/L) Final Anion gap 08/01/2024 06:19:00 10 7-15 (mmol /L) Final Glucose 08/01/2024 06:19:00 212 Above high normal 70 -120 (mg/dL) Final Calcium 08/01/2024 06:19:00 8.4 8.4-10.2 ( mg/dL) Final Performing Location [facility] [place] [place] [address]
--- OUTSIDE RECORDS SUMMARY | 2024-10-10 23:09 | External Medical Summary ---
Author Name Unknown Address Unknown Organization K09:[facility] [place] [address] Laboratory Report Ordering Provider Test Date Status ADELIA BROWN 08/08/2024 06:12:32 Final Observation Date Value Abnormality Reference (Units ) Status BUN 08/08/2024 06:12:32 19 6-20 (mg/dL) Final Creatinine 08/08/2024 06:12:32 1.2 0.6-1.2 (mg/dL) Final Glomerular filtration rate/1.73 sq M.predicted [Volume Rate/Area] in Serum, Plasma or Blood by Creatinine-based formula (CKD-EPI) 08/08/2024 06:12:32 68 >=60 (mL/min) Final eGFR is calculated based on the CKD-EPI 2020 equation. Sodium 08/08/2024 06:12:32 145 135-146 (m mol/L) Final Potassium 08/08/2024 06:12:32 4.6 3.5-5.1 (m mol/L) Final Cl 08/08/2024 06:12:32 112 Above high normal 98 -107 (mmol/L) Final CO2 08/08/2024 06:12:32 23 22-32 (mmo l/L) Final Anion gap 08/08/2024 06:12:32 10 7-15 (mmol /L) Final Glucose 08/08/2024 06:12:32 72 70-120 (mg /dL) Final Calcium 08/08/2024 06:12:32 8.8 8.4-10.2 ( mg/dL) Final Performing Location [facility] [place] [address]
--- OUTSIDE RECORDS SUMMARY | 2024-10-10 23:09 | External Medical Summary | Summary of Care ---
Author Name Unknown Organization [facility] Address [address] [place] [address] Phone [phone] Care Team Providers Care Coding Clerks Supervisor Name Role Phone Anabel Ortiz MD Primary Care Provider Reason for Visit * Reason Onset Date Comments Hospital Follow-Up 08/12/2024 [facility] 2/3 Encounter Details Date Type Department Care Team (Late st Contact Info) Description 08/12/2024 Telephone Family Practice [facility] [address] [place] [address] Lauryn Kothari, RN Hospital Follow-Up ([facility] 2/3) Allergies Active Allergy Reactions Criticality Noted Date Comments Erythromycin 07/06/1997 Stomach pain documented as of this encounter (statuses as of 08/12/2024) Medications MULTIVITAMINS PO TABS Take 1 Tablet by mouth every morning. Active Calcium Carbonate Antacid 500 MG Oral Tablet Chewable Take 1 Tablet by mouth as needed. As needed 5 Active ONETOUCH DELICA LANCETS 33G MISC TEST SUGAR DAILY 100 Each 5 8 Active ONETOUCH ULTRA BLUE STRPIndications: Type 2 diabetes mellitus with hemoglobin A1c goal of less than 7.0% ([facility]) USE UP TO 4 TIMES A [...] mouth in the morning. Per [facility] instructions. Active Gabapentin 300 MG [...] as of this encounter (statuses as of 08/12/2024) Active Problems Problem Noted Date Diagnosed Date [...] as of this encounter (statuses as of 08/12/2024) Resolved Problems Problem Noted Date Diagnosed Date [...] as of this encounter (statuses as of 08/12/2024) Immunizations Name Administration Dates Next Due COVID-19 mRNA, LNP-s, No Pre serve, 2-Dose Series (Moderna) 11/25/2020,10/28/2020 Hepatitis B, 20+ yrs 05/19/2015,11/19/2014,05/06 PPD 05/06/2014,05/18/2009 Pneumococcal Conjugate Vacci ne, 20-valent (Pytcisl93) 01/19/2022 Pneumococcal Polysaccharide PPV23 (Pneumovax) 08/22/2013 Seasonal [...] Industry Job Start Date Job End Date [email or web address] work Not on file Not on file [...] Assessment Author No 04/20/2023 2:13 AM EDT iJl Sebastian LPN * Because of a physical, [...] encounter Miscellaneous Notes * Telephone Encounter - Lauryn Kothari RN - 08/12/2024 11:19 AM EST Transitions of Care Note Reason for Referral:Recent Admission Phone visit for follow up: LAURA Admitted to: [facility], Date: 07/31 Discharged to: home, Date: 08/11 Diagnosis driving hospitalization: LLE weakness Ambulatory dysfunction L heel infection Source/Contact: Patient SUBJECTIVE Consent: Verbal consent for review of hospital discharge: Yes REVIEW OF SYSTEMS Patient/Other Reports: Current patient/caregiver problems or concerns: none at this time CV: Denies problems Pulmonary: Denies problems Chills/Sweats/Fever:Denies chills/sweats Denies fever Appetite:Denies problems such as nausea, vomiting, burning, decreased appetite Current diet: as before Bowel: denies problems Bladder: denies problems Wound (If applicable): N/A Pain:Location- heel Intensity- 5 (Scale 0-10) Current pain management effective: Yes Sleep:Denies problems FUNCTIONAL STATUS: ADL'S: Needs Assistance With:N/A as pt is independent IADL'S: Needs Assistance With:N/A as pt is independent Cognitive and Mental Health: denies problems, alert and oriented x 3, and able to communicate, understand instructions, process information. MEDICATION RECONCILIATION Medications: med list not available from OSH and pt reports it is very long. He will bring it in tothe office tomorrow for reconciling OBJECTIVE ASSESSMENT Medication Risk Assessment: No risks identified Did patient fail outpatient treatment? Yes Discharge instructions available for review? No PLAN Symptom Monitoring Interventions:Member/caregiver education - signs and symptoms to contact PrimaryCare (DO NOT DELETE-Three turcios symptoms patient is to report to PCP) 1. Fever 2. Pain not controlled with home medications 3. Increased drainage from heel Cuprous Chloride OperatorFaculty Criminal Justice of Care interventions/Action Plan: 5 - 7 day follow-up with PCP in place - Date: 08/13 Educated on role of LAURA completed with patient/caregiver. Educated patient/caregiver on patient right to have input on LAURA plan of care. Verification of Home Health/DME if indicated: YES HH, PT, OT Identified Care Gaps: Yes Care Gaps closed this call: Appointment made or confirmed, Medication adherence, and Transition of Care follow-up communication Re-evaluation of Plan of Care and progress towards goals achievement: Patient education this visit: Verbal, as above Plan to follow-up as previously scheduled, instructed to call Primary Care Provider with change in symptoms or as needed before next follow-up, discharge needs met, verbalizes understanding and agrees with plan. Lauryn Kothari RN documented in this encounter Plan of Treatment Upcoming Encounters Date Type Department Care Team (Late st Contact Info) Description 08/13/2024 11:00 AM EST Office Visit Family [facility] [address] [place] [address] Anabel Ortiz MD [address] [place] [address] Health Maintenance Due Date Last Done Comments [...] this encounter Medical Devices Implanted Type Area Machine Tool Operator Device Identifier Shelf Expiration Date Model / Serial / Lot Cath Thermodilution 6fr - [id number] Implanted:Qty: 1 on 04/20/2023 at [facility] S[facility] [employer] [id number] 11/13/2024 [id number] / / [id number] Valve Aortic Mech 21mm - [id number] - [id number] Implanted:Qty: 1 on 04/23/2023 by Zbigniew Linder MD at [facility] N/A: Heart [employer] [id number] 09/04/2028 ONXACE-2 [id number] / [id number] Suture Steel 6 B&S19 M654g - [id number] Implanted:Qty: 8 on 04/23/2023 by Zbigniew Linder MD at [facility] N/A: Sternum JNJ : [employer] 12/07/2027 [...] and were consensually agreed upon. Care Teams Coding Clerks Supervisor Relationship Specialty Start Date End Date Anabel Ortiz MD [address] [place] [address] PCP - General Internal Medicine 07/25/24 documented as of this encounter
--- OUTSIDE RECORDS SUMMARY | 2024-10-10 23:09 | External Medical Summary ---
Author Name Unknown Address Unknown Organization K09:[facility] [place] [address] Laboratory Report Ordering Provider Test Date Status ADELIA BROWN 08/01/2024 06:19:00 Final Warfarin Therapy
INR: 2 .0-3.0 conventional anticoagulation
INR: 2.5- 3.5 high intensity anticoagulation Observation Date Value Abnormality Reference (Units ) Status PT 08/01/2024 06:19:00 14.5 11.6-15.2 (seconds) Final INR 08/01/2024 06:19:00 1.1 0.8-1.2 Final Performing Location [facility] [place] [address]
--- OUTSIDE RECORDS SUMMARY | 2024-10-10 23:09 | External Medical Summary | Summary of Care ---
Author Name Unknown Organization [facility] Address [address] [place] [facility] [place] [place] [address] Phone [phone] Care Team Providers Care Regulatory Affairs Internship Name Role Phone Anabel Ortiz MD Primary Care Provider Encounter Details Date Type Department Care Team (Late st Contact Info) Description 08/15/2024 Orders Only PATIENT PORTAL DO NOT DELETE THIS DEPT USED BY [place] [address] Allergies Active Allergy Reactions Criticality Noted Date [...] goal of less than 7.0% ([facility]) USE UP TO 4 TIMES A DAY [...] PPD 05/06/2014,05/18/2009 Pneumococcal Conjugate Vacci ne, 20-valent (Ezzurhj39) 01/19/2022 Pneumococcal Polysaccharide PPV23 (Pneumovax) 08/22/2013 Seasonal [...] Industry Job Start Date Job End Date [employer] work Not on file Not on file [...] No 04/20/2023 2:13 AM EDT Jil Sebastian MANAGER OF CLINICAL documented as of this encounter Mental Status * Because of a physical, mental, or emotional condition, do you have serious difficulty concentrating, remembering, or making decisions? (5 years old or older) Answer Entry Date Author No 04/20/2023 2:13 AM EDT Jil Sebastian LPN documented in this encounter Plan of Treatment Upcoming Encounters Date Type Department Care Team (Late st Contact Info) Description 08/18/2024 7:20 AM EST Laboratory Lab Mobile Phlebotomy [facility] [address] [place] [address] Mvmg, Gml Mobile Home Draw [address] [place] [address] [address] 08/18/2024 5:40 PM EST Anticoagulation Pharmacy, [facility] [address] [place] [address] [facility] [address] [place] [address] 08/26/2024 2:10 PM EST Office Visit Pharmacy, [facility] [address] [place] [address] [facility] [address] [place] [address] 01/14/2025 12:20 PM EDT Office Visit Family Practice [facility] [address] [place] [address] Anabel Ortiz MD [address] [place] [address] Health Maintenance Due Date Last Done Comments [...] this encounter Medical Devices Implanted Type Area Gauge Machine Operator Device Identifier Shelf Expiration Date Model / Serial / Lot Cath Thermodilution 6fr - [id number] Implanted:Qty: 1 on 04/20/2023 at [facility] LABS [facility] [employer] [employer] [id number] 11/13/2024 [id number] / / [id number] Valve Aortic Mech 21mm - [id number] - [id number] Implanted:Qty: 1 on 04/23/2023 by Zbigniew Linder MD at OR [facility] N/A: Heart [employer] [id number] 09/04/2028 ONXACE-2 [id number] / [id number] Suture Steel 6 B&S19 M654g - [id number] Implanted:Qty: 8 on 04/23/2023 by Zbigniew Linder MD at OR [facility] N/A: Sternum JNJ : [employer] [...] and were consensually agreed upon. Care Teams Regulatory Affairs Internship Relationship Specialty Start Date End Date Anabel Ortiz MD [address] [place] [address] PCP - General Internal Medicine 07/25/24 documented as of this encounter
--- OUTSIDE RECORDS SUMMARY | 2024-10-10 23:09 | External Medical Summary ---
Author Name Unknown Address Unknown Organization K0G:[facility] [address] [place] [address] Laboratory Report Ordering Provider Test Date Status ADELIA BROWN 08/02/2024 06:43:00 Final Warfarin Therapy
INR: 2 .0-3.0 conventional anticoagulation
INR: 2.5- 3.5 high intensity anticoagulation Observation Date Value Abnormality Reference (Units ) Status PT 08/02/2024 06:43:00 14.1 11.6-15.2 (seconds) Final INR 08/02/2024 06:43:00 1.1 0.8-1.2 Final Performing Location [facility] [address] [place] [address]
--- OUTSIDE RECORDS SUMMARY | 2024-10-10 23:09 | External Medical Summary ---
Author Name Unknown Address Unknown Organization K09:[facility] [place] [address] Laboratory Report Ordering Provider Test Date Status ADELIA BROWN 08/01/2024 06:19:00 Final Observation Date Value Abnormality Reference (Units ) Status WBC, Total 08/01/2024 06:19:00 5.28 4.00-10.8 0 (K/uL) Final RBC 08/01/2024 06:19:00 3.69 4.50-5.25 (M/uL) Final Hemoglobin 08/01/2024 06:19:00 11.4 Below low normal 14 .0-16.8 (g/dL) Final HCT 08/01/2024 06:19:00 35.1 Below low normal 40. 0-48.4 (%) Final MCV 08/01/2024 06:19:00 95.1 82.0-99.5 (fL) Final MCH 08/01/2024 06:19:00 30.9 27.0-34.0 (pg) Final MCHC 08/01/2024 06:19:00 32.5 32.0-36.0 (g/dL) Final RDW 08/01/2024 06:19:00 14.6 11.5-15.5 (%) Final Platelets 08/01/2024 06:19:00 218 140-400 (K /uL) Final MPV 08/01/2024 06:19:00 10.9 6.6-11.1 ( fL) Final Performing Location [facility] [place] [address]
--- OUTSIDE RECORDS SUMMARY | 2024-10-10 23:09 | External Medical Summary ---
Author Name Unknown Address Unknown Organization K09:[facility] [place] [address] Laboratory Report Ordering Provider Test Date Status ADELIA BROWN 08/05/2024 05:44:27 Final Warfarin Therapy
INR: 2 .0-3.0 conventional anticoagulation
INR: 2.5- 3.5 high intensity anticoagulation Observation Date Value Abnormality Reference (Units ) Status PT 08/05/2024 05:44:27 15.3 Above high normal 11 .6-15.2 (seconds) Final INR 08/05/2024 05:44:27 1.2 0.8-1.2 Final Performing Location [facility] [place] [address]
--- OUTSIDE RECORDS SUMMARY | 2024-10-10 23:09 | External Medical Summary ---
Author Name Unknown Address Unknown Organization K0G:[facility] [address] [place] [address] Laboratory Report Ordering Provider Test Date Status ADELIA BROWN 08/03/2024 06:00:00 Final Warfarin Therapy
INR: 2 .0-3.0 conventional anticoagulation
INR: 2.5- 3.5 high intensity anticoagulation Observation Date Value Abnormality Reference (Units ) Status PT 08/03/2024 06:00:00 14.7 11.6-15.2 (seconds) Final INR 08/03/2024 06:00:00 1.1 0.8-1.2 Final Performing Location [facility] [address] [place] [address]
--- OUTSIDE RECORDS SUMMARY | 2024-10-10 23:09 | External Medical Summary ---
Author Name Unknown Address Unknown Organization K09:[facility] [place] [address] Laboratory Report Ordering Provider Test Date Status ADELIA BROWN 08/08/2024 06:12:32 Final Warfarin Therapy
INR: 2 .0-3.0 conventional anticoagulation
INR: 2.5- 3.5 high intensity anticoagulation Observation Date Value Abnormality Reference (Units ) Status PT 08/08/2024 06:12:32 21.5 Above high normal 11 .6-15.2 (seconds) Final INR 08/08/2024 06:12:32 1.8 Above high normal 0. 8-1.2 Final Performing Location [facility] [place] [address]
--- OUTSIDE RECORDS SUMMARY | 2024-10-10 23:09 | External Medical Summary ---
Author Name Unknown Address Unknown Organization K09:[facility] [place] [address] Laboratory Report Ordering Provider Test Date Status ADELIA BROWN 08/04/2024 06:08:07 Final Warfarin Therapy
INR: 2 .0-3.0 conventional anticoagulation
INR: 2.5- 3.5 high intensity anticoagulation Observation Date Value Abnormality Reference (Units ) Status PT 08/04/2024 06:08:07 15.2 11.6-15.2 (seconds) Final INR 08/04/2024 06:08:07 1.2 0.8-1.2 Final Performing Location [facility] [place] [address]
[2024-10-10 23:12] LABS: BUN Creatinine Ratio 16.3 (10-20); Calcium 8.6 mg/dl (8.6-10.3); Creatinine Clr Calc Pharmacy 70.7 ml/min; Magnesium 1.6 mg/dl (1.7-2.4); Phosphorus 2.3 mg/dl (2.5-4.9); Potassium 3.8 mmol/L (3.5-5.1)
[2024-10-10] MEDS: STOP ORDER: INSULIN GTT ONE (23:20)
[2024-10-11 03:06] LABS: BUN Creatinine Ratio 13.3 (10-20); Calcium 8.6 mg/dl (8.6-10.3); Creatinine Clr Calc Pharmacy 66.3 ml/min; Magnesium 1.8 mg/dl (1.7-2.4); Phosphorus 2.5 mg/dl (2.5-4.9); Potassium 3.5 mmol/L (3.5-5.1)
[2024-10-11 07:41] LABS: Hematocrit (blood only) 40.6 % (42.0-52.0); Mean Corpuscular Hemoglobin 29.5 pg (25.0-34.0); Mean Corpuscular Hgb Conc 34.5 g/dL (32.0-36.0); Mean Corpuscular Volume 85.7 fL (80.0-100.0); Mean Platelet Volume 10.6 fL (9.4-12.4); Platelet Count 136 K/uL (130-400); RDW Coefficient of Variation 15.2 % (11.5-14.5); RDW Standard Deviation 47.8 fL (36.4-46.3); Red Blood Count 4.74 M/uL (4.70-6.10)
[2024-10-11 07:42] LABS: INR 1.1 (0.9-1.1); Prothrombin Time 11.4 Seconds (9.0-12.0)
[2024-10-11 07:43] LABS: BUN Creatinine Ratio 12.9 (10-20); Calcium 8.9 mg/dl (8.6-10.3); Creatinine Clr Calc Pharmacy 70.1 ml/min; Magnesium 1.7 mg/dl (1.7-2.4); Phosphorus 2.8 mg/dl (2.5-4.9); Potassium 3.8 mmol/L (3.5-5.1)
[2024-10-11] MEDS: INSULIN ASPART PER UNIT CHARGE SC SCH (09:24)
[2024-10-11] MEDS: LANTUS PER UNIT CHARGE SC SCH (09:25)
[2024-10-11] MEDS: ASPIRIN 81 MG ECTAB PO SCH (09:26)
[2024-10-11] MEDS: ROSUVASTATIN CALCIUM 20 MG TAB PO SCH (09:26)
[2024-10-11] MEDS: ACETAMINOPHEN 325 MG TAB PO PRN (09:52)
[2024-10-11 12:16] LABS: BUN Creatinine Ratio 12.9 (10-20); Calcium 8.4 mg/dl (8.6-10.3); Creatinine Clr Calc Pharmacy 70.1 ml/min; Magnesium 1.7 mg/dl (1.7-2.4); Phosphorus 2.5 mg/dl (2.5-4.9); Potassium 3.9 mmol/L (3.5-5.1)
--- NOTE | 2024-10-11 12:53 | Hospitalist Progress Note ---
Date of Service October 11, 2024 Assessment & Plan (1) C. difficile colitis: (2) DKA (diabetic ketoacidosis): (3) Patient's other noncompliance with medication regimen due to financial hardship: (4) Uncontrolled type 2 diabetes mellitus with hyperglycemia: (5) ILD (interstitial lung disease): (6) Hypertension: Plan Patient presented to the ED in DKA most likely triggered from untreated C. difficile colitis. Patient unable to afford Dificid. Patient's DKA has resolved Transition to subcutaneous insulin Continue Dificid Conversation with wrapper caser, patient has the ability to apply for medical assistance and [employer] benefits to help cover the cost of his medications. This will have to be done on Sunday Continue to adjust insulin dosing for glucose control Encourage activity Okay [employer] Monitor laboratory studies daily 52 minutes spent on review of records, evaluation bedside, coordination of care, interpretation of data, documentation and placing orders Admission and Anticipated Discharge Date Admission Date: October 10, 2024 Subjective Patient is feeling significantly improved. Hungry wants advance his diet. States he has not had a bowel movement since yesterday. Physical Exam Physical Exam: Constitutional: Alert, nontoxic HEENT: Mucous membranes moist. Lungs: Clear to auscultation, decreased, no wheezes rales or rhonchi CV: S1-S2, regular Abdomen: Soft, nontender, nondistended Extremities: No significant edema Neuro: No focal deficits Psych: Cooperative, normal mood Results & Data Results & Data Vital Signs (Past 12 Hours) Vital Signs Temp Pulse Resp BP Pulse Ox O2 Del Method 10/11/24 11:47 36.4 C L 85 18 122/70 97 Room Air 10/11/24 08:06 36.5 C 80 18 132/68 97 Room Air 10/11/24 02:26 36.6 C 90 16 127/70 97 Room Air Laboratory Results Reviewed imaging, laboratory and diagnostic studies. Pertinent findings as below. Hemoglobin 14.0 INR 1.1 Sodium 132 Potassium 3.9 Carbon dioxide 24 Anion gap 4 Creatinine 0.93 Hemoglobin A1c 11.7%
--- NOTE | 2024-10-11 14:31 | Pharmacy Report ---
Pharmacy Glycemic Short Note 2 - Date of Service October 11, 2024 - Glycemic Short BSG Results (Last 24 hours): 10/10/24 10/10/24 10/10/24 13:26 15:33 15:57 Glucose 498 H* 459 H* POC Glucose 421 H* 10/10/24 10/10/24 10/10/24 17:00 18:03 19:10 Glucose POC Glucose 260 H 221 H 178 H 10/10/24 10/10/24 10/10/24 19:23 20:09 21:04 Glucose 159 H POC Glucose 282 H 264 H 10/10/24 10/11/24 10/11/24 22:38 02:26 06:54 Glucose 191 H 154 H Cancelled POC Glucose 10/11/24 10/11/24 10/11/24 06:54 07:28 11:24 Glucose 191 H POC Glucose 197 H 312 H* 10/11/24 11:28 Glucose 313 H* POC Glucose OUTPATIENT ANTIDIABETIC REGIMEN: * Novolin 70/30 33 units QDB * Novolin 70/30 22 units QDD * HbA1c 11.7 (10/10/24) ASSESSMENT: * Derek is a 64 YOM admitted with diarrhea and hyperglycemia with a history of type 2 diabetes mellitus. Pharmacy has been consulted to assist with glycemic management while inpatient. * Upon admission BSGs elevated in 300s, Anion gap slightly elevated at 17, Co2 low at 18, and VBG pH slightly acidotic at 7.27. The decision was made to start an insulin drip, BSGs trended down and labs normalized. * Basal/bolus insulin started based on prior data. Patient trends high at lunchtime and has a history of hypoglycemia with aggressive dosage adjustments. He is on fidaxamicin for C. Difficile infection. * Will consider tighter breakfast NovoLog parameters tomorrow. Could also transition basal insulin to NPH tomorrow for better transition back to outpatient insulin dosing. PLAN FOR INPATIENT GLYCEMIC CONTROL: * Hold outpatient oral diabetes medications * Basal insulin * Lantus 20 units SQ QAM * Lantus 0-10 units SQ HS based on BSG (see eMAR for additional details) * Bolus insulin * NovoLog per scale ACHS or Q6hrs while NPO * Goal Range: Low 110 mg/dL - High 140 mg/dL * Correction Factor: 30 mg/dL/unit * Nutritional / Prandial insulin per carb ratio of 1 unit per 6 grams CHO consumed
[2024-10-11] MEDS: WARFARIN SOD 10 MG TAB PO SCH (17:16)
[2024-10-11] MEDS ORDERED: LANTUS PER UNIT CHARGE SC SCH (21:00)
[2024-10-12 07:04] LABS: Hematocrit (blood only) 38.5 % (42.0-52.0); Hemoglobin 13.1 g/dl (14.0-18.0); Mean Corpuscular Hemoglobin 29.4 pg (25.0-34.0); Mean Corpuscular Volume 86.5 fL (80.0-100.0); Mean Platelet Volume 10.1 fL (9.4-12.4); Platelet Count 129 K/uL (130-400); RDW Coefficient of Variation 15.4 % (11.5-14.5); RDW Standard Deviation 48.6 fL (36.4-46.3); Red Blood Count 4.45 M/uL (4.70-6.10); White Blood Count 8.13 K/ul (4.8-10.8)
[2024-10-12 07:26] LABS: INR 1.1 (0.9-1.1); Prothrombin Time 11.4 Seconds (9.0-12.0)
[2024-10-12 07:35] LABS: BUN Creatinine Ratio 12.3 (10-20); Calcium 8.8 mg/dl (8.6-10.3); Creatinine Clr Calc Pharmacy 83.6 ml/min; Magnesium 1.8 mg/dl (1.7-2.4); Potassium 3.2 mmol/L (3.5-5.1)
[2024-10-12] MEDS ORDERED: LANTUS PER UNIT CHARGE SC SCH (09:00)
--- NOTE | 2024-10-12 12:43 | Hospitalist Progress Note ---
Date of Service October 12, 2024 Assessment & Plan (1) C. difficile colitis: (2) DKA (diabetic ketoacidosis): (3) Patient's other noncompliance with medication regimen due to financial hardship: (4) Uncontrolled type 2 diabetes mellitus with hyperglycemia: (5) ILD (interstitial lung disease): (6) Hypertension: (7) H/O mechanical aortic valve replacement: (8) Anticoagulated on warfarin: Plan Patient overall improving. Continue Dificid for C. difficile Pharmacy assisting with dosing of his insulin Continue with full dose Lovenox while bridging to heparin awaiting therapeutic INR for mechanical aortic valve Activity as tolerated Case management continue to work with patient to help with getting him affordable medications. Replace potassium Admission and Anticipated Discharge Date Admission Date: October 10, 2024 Subjective Patient tolerating his diet. No abdominal pain. Stool starting to improve Physical Exam Physical Exam: Constitutional: Alert, nontoxic HEENT: Mucous membranes moist. Lungs: Clear to auscultation, decreased, no wheezes rales or rhonchi CV: S1-S2, regular Abdomen: Soft, nontender, nondistended Extremities: No significant edema Neuro: No focal deficits Psych: Cooperative, normal mood Results & Data Results & Data Vital Signs (Past 12 Hours) Vital Signs Temp Pulse Resp BP Pulse Ox O2 Del Method 10/12/24 07:58 35.7 C L 97 H 18 110/66 94 Room Air 10/12/24 03:14 36.7 C 80 16 122/64 96 Room Air Diagnostic Findings Reviewed imaging, laboratory and diagnostic studies. Pertinent findings as below. WBCs 8.1 Hemoglobin 13.1 Potassium 3.2 Creatinine 0.81 Glucose 237 INR 1.1
[2024-10-12] MEDS: POTASSIUM CHLORIDE CRTAB 20 MEQ TABCR PO STA (14:15)
[2024-10-12] MEDS: POTASSIUM CHLORIDE CRTAB 20 MEQ TABCR PO ONE (16:50)
[2024-10-12] MEDS: LANTUS PER UNIT CHARGE SC SCH (21:07)
[2024-10-13 07:14] LABS: Hematocrit (blood only) 36.3 % (42.0-52.0); Hemoglobin 12.4 g/dl (14.0-18.0); Mean Corpuscular Hemoglobin 29.6 pg (25.0-34.0); Mean Corpuscular Hgb Conc 34.2 g/dL (32.0-36.0); Mean Corpuscular Volume 86.6 fL (80.0-100.0); Mean Platelet Volume 11.2 fL (9.4-12.4); Platelet Count 125 K/uL (130-400); RDW Coefficient of Variation 15.3 % (11.5-14.5); RDW Standard Deviation 48.5 fL (36.4-46.3); Red Blood Count 4.19 M/uL (4.70-6.10); White Blood Count 7.61 K/ul (4.8-10.8)
[2024-10-13 07:35] LABS: INR 1.5 (0.9-1.1); Prothrombin Time 15.7 Seconds (9.0-12.0)
[2024-10-13 07:39] LABS: BUN Creatinine Ratio 16.2 (10-20); Calcium 8.2 mg/dl (8.6-10.3); Creatinine Clr Calc Pharmacy 68.4 ml/min; Magnesium 1.8 mg/dl (1.7-2.4); Potassium 4.1 mmol/L (3.5-5.1)
--- NOTE | 2024-10-13 10:17 | Pharmacy Report ---
Pharmacy Glycemic Short Note 2 - Date of Service October 13, 2024 - Glycemic Short BSG Results (Last 24 hours): 10/12/24 10/12/24 10/12/24 11:19 16:30 20:51 Glucose POC Glucose 237 H 108 H 102 H 10/13/24 10/13/24 06:08 07:49 Glucose 216 H POC Glucose 202 H OUTPATIENT ANTIDIABETIC REGIMEN: * Novolin 70/30 33 units QDB * Novolin 70/30 22 units QDD * HbA1c 11.7 (10/10/24) ASSESSMENT: 10/13/24 * Patient received 51 units of insulin yesterday, 20 units bolus. * Fasting elevated this morning, will change parameters to HS Lantus to ensure patient receives 5 units for goal blood sugar. * No further changes at this time. 10/11/24 * Derek is a 64 YOM admitted with diarrhea and hyperglycemia with a history of type 2 diabetes mellitus. Pharmacy has been consulted to assist with glycemic management while inpatient. * Upon admission BSGs elevated in 300s, Anion gap slightly elevated at 17, Co2 low at 18, and VBG pH slightly acidotic at 7.27. The decision was made to start an insulin drip, BSGs trended down and labs normalized. * Basal/bolus insulin started based on prior data. Patient trends high at lunchtime and has a history of hypoglycemia with aggressive dosage adjustments. He is on fidaxamicin for C. Difficile infection. * Will consider tighter breakfast NovoLog parameters tomorrow. Could also transition basal insulin to NPH tomorrow for better transition back to outpatient insulin dosing. PLAN FOR INPATIENT GLYCEMIC CONTROL: * Hold outpatient diabetes medications * Basal insulin * Lantus 20 units SQ QAM * Lantus 0-10 units SQ HS based on BSG (0 units BSG < 90, 5 units BSG 90-179, 10 units BSG 180 or greater) * Bolus insulin * NovoLog per scale ACHS or Q6hrs while NPO * Goal Range: Low 110 mg/dL - High 140 mg/dL * Correction Factor: 30 mg/dL/unit * Nutritional / Prandial insulin per carb ratio of 1 unit per 6 grams CHO consumed
--- NOTE | 2024-10-13 13:37 | Hospitalist Progress Note ---
Date of Service October 13, 2024 Assessment & Plan (1) C. difficile colitis: (2) DKA (diabetic ketoacidosis): (3) Patient's other noncompliance with medication regimen due to financial hardship: (4) Uncontrolled type 2 diabetes mellitus with hyperglycemia: (5) ILD (interstitial lung disease): (6) Hypertension: (7) H/O mechanical aortic valve replacement: (8) Anticoagulated on warfarin: Plan Patient is a 64-year-old gentleman presented with sepsis from C. difficile colitis and DKA. This is resolved. His C. difficile colitis is improving. Continue Dificid Continue to adjust insulin for glucose control Continue full dose Lovenox while INR is becoming therapeutic Continue current warfarin dosing Trial of Questran for patient's complaints of ongoing loose stools. Neosporin ointment for some dry irritated skin is excoriated behind his ear. Communication with case management to assist patient with obtaining medications while he is awaiting his [facility] and medical assistance benefits to kick in Admission and Anticipated Discharge Date Admission Date: October 10, 2024 Subjective Patient reports still with frequent loose stools. No real abdominal pain. Wants to take a shower. Physical Exam Physical Exam: Constitutional: Alert, no acute distress, nontoxic HEENT: Mucous membranes moist. Lungs: Clear to auscultation, decreased, no wheezes rales or rhonchi CV: S1-S2, regular, mechanical click murmur Abdomen: Soft, minimal tenderness, nondistended, no guarding Extremities: No significant edema Neuro: No focal deficits Psych: Cooperative, normal mood Results & Data Results & Data Vital Signs (Past 12 Hours) Vital Signs Temp Pulse Resp BP Pulse Ox O2 Del Method 10/13/24 11:40 36.5 C 82 15 120/67 98 Room Air 10/13/24 07:44 Room Air 10/13/24 07:35 36.5 C 84 16 126/61 97 Room Air Diagnostic Findings Reviewed imaging, laboratory and diagnostic studies. Pertinent findings as below. BMP stable WBC 7.1 Hemoglobin 12.4 INR 1.5
[2024-10-13] MEDS: CHOLESTYRAMINE LIGHT 4 GM PKT PO SCH (14:32)
[2024-10-13] MEDS: NEOMYCIN/POLYMYX/BACITR OINT 15 GM TUBE EXT PRN (15:17)
[2024-10-14 08:25] LABS: INR 1.8 (0.9-1.1); Prothrombin Time 18.4 Seconds (9.0-12.0)
--- NOTE | 2024-10-14 09:42 | Pharmacy Report ---
Pharmacy Glycemic Short Note 2 - Date of Service October 14, 2024 - Glycemic Short BSG Results (Last 24 hours): 10/13/24 10/13/24 10/13/24 11:40 16:40 20:29 POC Glucose 248 H 80 83 10/14/24 10/14/24 07:36 07:39 POC Glucose 356 H* 359 H* OUTPATIENT ANTIDIABETIC REGIMEN: * Novolin 70/30 33 units QDB * Novolin 70/30 22 units QDD * HbA1c 11.7 (10/10/24) ASSESSMENT: 10/14/24 * Patient received 68 units of insulin yesterday, 20 units bolus. Blood sugars improved after changing CF/CR to 25/5. * Fasting very elevated this morning, likely d/t BSG of 83mg/dl last night, and patient had snack without carb coverage, and no Lantus. * Will change CF back to 30 today to avoid BSGs less than 90mg/dl. * DKA resolved, remains on Dificid for CDiff, on Lovenox bridge with warfarin for mechanical valve. 10/13/24 * Patient received 51 units of insulin yesterday, 20 units bolus. * Fasting elevated this morning, will change parameters to HS Lantus to ensure patient receives 5 units for goal blood sugar. * Tighten CF/CR slightly for BSG increasing with meals. 10/11/24 * Derek is a 64 YOM admitted with diarrhea and hyperglycemia with a history of type 2 diabetes mellitus. Pharmacy has been consulted to assist with glycemic management while inpatient. * Upon admission BSGs elevated in 300s, Anion gap slightly elevated at 17, Co2 low at 18, and VBG pH slightly acidotic at 7.27. The decision was made to start an insulin drip, BSGs trended down and labs normalized. * Basal/bolus insulin started based on prior data. Patient trends high at lunchtime and has a history of hypoglycemia with aggressive dosage adjustme nts. He is on fidaxamicin for C. Difficile infection. * Will consider tighter breakfast NovoLog parameters tomorrow. Could also transition basal insulin to NPH tomorrow for better transition back to o utpatient insulin dosing. PLAN FOR INPATIENT GLYCEMIC CONTROL: * Hold outpatient diabetes medications * Basal insulin * Lantus 20 units SQ QAM * Lantus 0-10 units SQ HS based on BSG (0 units BSG < 90, 5 units BSG 90-179, 10 units BSG 180 or greater) * Bolus insulin * NovoLog per scale ACHS or Q6hrs while NPO * Goal Range: Low 110 mg/dL - High 140 mg/dL * Correction Factor: 30 mg/dL/unit * Nutritional / Prandial insulin per carb ratio of 1 unit per 5 grams CHO consumed
--- NOTE | 2024-10-14 11:34 | Hospitalist Progress Note ---
Date of Service October 14, 2024 Assessment & Plan (1) C. difficile colitis: (2) DKA (diabetic ketoacidosis): (3) Patient's other noncompliance with medication regimen due to financial hardship: (4) Uncontrolled type 2 diabetes mellitus with hyperglycemia: (5) ILD (interstitial lung disease): (6) Hypertension: (7) H/O mechanical aortic valve replacement: (8) Anticoagulated on warfarin: Plan Patient is continuing to improve on Dificid, complete 10-day course Continue Lovenox with warfarin dosing. Patient with mechanical aortic valve Typical INR goal for mechanical aortic valve is 2-3. Anticipate INR may be therapeutic tomorrow. With that said, patient states that he is never used Lovenox at home, if discharge arranged prior to his INR becoming therapeutic may need Lovenox teaching. Case management working with the [facility] and medical assistance to get outpatient med ications covered Patient at home was on insulin 70/30 twice a day. This was what he could afford. Patient With his VA benefits/medical assistance benefits can continue to the 70/30 insulin or transition to Lantus and short acting insulin. Paperwork completed for obtaining medications Encouraged activity 55 minutes spent on care of patient, review of records, coordinating care, interpretation of data, documentation Admission and Anticipated Discharge Date Admission Date: October 10, 2024 Subjective Continuing to feel better each day. States only 3 stools yesterday mostly after his meals. Physical Exam Physical Exam: Constitutional: Alert, nontoxic HEENT: Mucous membranes moist. Lungs: Clear to auscultation, decreased, no wheezes rales or rhonchi CV: S1-S2, regular, mechanical click Abdomen: Soft, mild right lower quadrant tenderness, no guarding or rigidity Extremities: No significant edema Neuro: No focal deficits Psych: Cooperative, normal mood Results & Data Results & Data Vital Signs (Past 12 Hours) Vital Signs Temp Pulse Resp BP Pulse Ox O2 Del Method 10/14/24 07:41 36.5 C 86 17 120/69 97 Room Air 10/14/24 07:34 Room Air Diagnostic Findings Reviewed imaging, laboratory and diagnostic studies. Pertinent findings as below. INR 1.8 Glucose 359
[2024-10-14] MEDS: CARBOHYDRATES FOR HYPOGLYCEMIA PO PRN (17:03)
[2024-10-15 07:57] LABS: Hematocrit (blood only) 35.9 % (42.0-52.0); Mean Corpuscular Hemoglobin 29.6 pg (25.0-34.0); Mean Corpuscular Hgb Conc 33.4 g/dL (32.0-36.0); Mean Corpuscular Volume 88.4 fL (80.0-100.0); Mean Platelet Volume 10.3 fL (9.4-12.4); Platelet Count 145 K/uL (130-400); RDW Coefficient of Variation 15.6 % (11.5-14.5); RDW Standard Deviation 50.3 fL (36.4-46.3); Red Blood Count 4.06 M/uL (4.70-6.10); White Blood Count 5.86 K/ul (4.8-10.8)
[2024-10-15 08:33] LABS: INR 2.9 (0.9-1.1); Prothrombin Time 28.2 Seconds (9.0-12.0)
[2024-10-15 08:35] LABS: BUN Creatinine Ratio 17.9 (10-20); Calcium 8.5 mg/dl (8.6-10.3); Creatinine Clr Calc Pharmacy 80.6 ml/min; Potassium 4.4 mmol/L (3.5-5.1)
[2024-10-15] MEDS: INSULIN ASPART PER UNIT CHARGE SC SCH (12:34)
--- NOTE | 2024-10-15 13:56 | Pharmacy Report ---
Pharmacy Glycemic Short Note 2 - Date of Service October 15, 2024 - Glycemic Short BSG Results (Last 24 hours): 10/14/24 10/14/24 10/14/24 16:59 17:01 17:18 Glucose POC Glucose 62 L* 64 L* 87 10/14/24 10/15/24 10/15/24 20:36 07:14 07:29 Glucose 197 H POC Glucose 87 184 H 10/15/24 11:17 Glucose POC Glucose 245 H OUTPATIENT ANTIDIABETIC REGIMEN: * Novolin 70/30 33 units QDB * Novolin 70/30 22 units QDD * HbA1c 11.7 (10/10/24) ASSESSMENT: 10/15/24 * Patient received a total of 69 units of insulin yesterday (20 were basal and 49 were bolus). BSGs were [id number]/dL. * Fasting BSG was 184mg/dL this morning. CR was loosened some with breakfast today and lunch BSG was 245mg/dL. Since BSG are trending higher in the morning and at lunch, will tighten the bolus insulin parameters only at breakfast and then loosen the rest of the day since lower BSG reading are being seen in the evenings. * No change to Lantus doses for now. 10/14/24 * Patient received 68 units of insulin yesterday, 20 units bolus. Blood sugars improved after changing CF/CR to 25/5. * Fasting very elevated this morning, likely d/t BSG of 83mg/dl last night, and patient had snack without carb coverage, and no Lantus. * Will change CF back to 30 today to avoid BSGs less than 90mg/dl. * DKA resolved, remains on Dificid for CDiff, on Lovenox bridge with warfarin for mechanical valve. 10/13/24 * Patient received 51 units of insulin yesterday, 20 units bolus. * Fasting elevated this morning, will change parameters to HS Lantus to ensure patient receives 5 units for goal blood sugar. * Tighten CF/CR slightly for BSG increasing with meals. 10/11/24 * Derek is a 64 YOM admitted with diarrhea and hyperglycemia with a history of type 2 diabetes mellitus. Pharmacy has been consulted to assist with glycemic management while inpatient. * Upon admission BSGs elevated in 300s, Anion gap slightly elevated at 17, Co2 low at 18, and VBG pH slightly acidotic at 7.27. The decision was made to start an insulin drip, BSGs trended down and labs normalized. * Basal/bolus insulin started based on prior data. Patient trends high at lunchtime and has a history of hypoglycemia with aggressive dosage adjustments. He is on fidaxamicin for C. Difficile infection. * Will consider tighter breakfast NovoLog parameters tomorrow. Could also transition basal insulin to NPH tomorrow for better transition back to outpat ient insulin dosing. PLAN FOR INPATIENT GLYCEMIC CONTROL: * Hold outpatient diabetes medications * Basal insulin * Lantus 20 units SQ QAM * Lantus 0,5, or 10 units SQ HS based on BSG (0 units BSG < 90, 5 units BSG 90-179, 10 units BSG 180 or greater) * Bolus insulin * NovoLog per scale ACHS or Q6hrs while NPO * Goal Range: Low 110 mg/dL - High 140 mg/dL * Breakfast: -Correction Factor: 20 mg/dL/unit -Nutritional / Prandial insulin per carb ratio of 1 unit per 6 grams CHO consumed * Lunch, supper, HS: -Correction Factor: 30 mg/dL/unit -Nutritional / Prandial insulin per carb ratio of 1 unit per 7 grams CHO consumed
--- NOTE | 2024-10-15 18:14 | Hospitalist Progress Note ---
Date of Service October 15, 2024 Assessment & Plan (1) C. difficile colitis: Plan: -continues to improve on dificid -working with case management to help with affording medications through [facility] -housing insecure at this time -anticipate discharge tomorrow (2) DKA (diabetic ketoacidosis): Plan: -resolved -continue subq insulin regiment, will work on affordable medication regiment (3) Patient's other noncompliance with medication regimen due to financial hardship: Plan: -see above (4) Uncontrolled type 2 diabetes mellitus with hyperglycemia: Plan: see above (5) ILD (interstitial lung disease): Plan: -on room air (6) Hypertension: Plan: -continue home med (7) H/O mechanical aortic valve replacement: Plan: -checkin daily INR, on warfarin, at target 2-3 -stop lovenox Plan I spent a total of 50 minutes in direct patient care, including [id number] time with the patient and/or family, reviewing medical records, ordering and reviewing diagnostic tests, and coordinating care with other healthcare provide rs. This time includes: history taking, physical examination, medical decision making, counseling, ECG interpretation, imaging interpretation, lab interpretation, orders, and education, excluding time spent in the performance of separately billed services. Admission and Anticipated Discharge Date Admission Date: October 10, 2024 Subjective Patient seen and examined at bedside. Patient is struggling with housing insecurity at this time. States he feels much better. Discussed that we are working on paperwork to help with funding his medications. Discussed that discharge will likely happen the next day or 2. Patient agreeable to plan Results & Data Results & Data Vital Signs (Past 12 Hours) Vital Signs Temp Pulse Resp BP Pulse Ox O2 Del Method 10/15/24 14:57 36.9 C 91 H 16 120/72 97 Room Air 10/15/24 07:36 36.4 C L 82 16 130/67 96 Room Air 10/15/24 07:17 Room Air
[2024-10-16 08:27] LABS: BUN Creatinine Ratio 17.4 (10-20); Calcium 8.6 mg/dl (8.6-10.3); Creatinine Clr Calc Pharmacy 73.6 ml/min; Potassium 4.1 mmol/L (3.5-5.1)
[2024-10-16 08:37] LABS: INR 2.7 (0.9-1.1); Prothrombin Time 26.4 Seconds (9.0-12.0)
[2024-10-16] MEDS: INSULIN ASPART PER UNIT CHARGE SC SCH (09:03)
[2024-10-16 10:07] LABS: Hematocrit (blood only) 35.8 % (42.0-52.0); Hemoglobin 11.9 g/dl (14.0-18.0); Mean Corpuscular Hemoglobin 29.8 pg (25.0-34.0); Mean Corpuscular Hgb Conc 33.2 g/dL (32.0-36.0); Mean Corpuscular Volume 89.5 fL (80.0-100.0); Mean Platelet Volume 10.6 fL (9.4-12.4); Platelet Count 179 K/uL (130-400); RDW Coefficient of Variation 15.7 % (11.5-14.5); RDW Standard Deviation 50.4 fL (36.4-46.3); White Blood Count 5.97 K/ul (4.8-10.8)
--- NOTE | 2024-10-16 15:19 | Hospitalist Progress Note ---
Date of Service October 16, 2024 Assessment & Plan (1) C. difficile colitis: Plan: -continues to improve on dificid -working with case management to help with [facility], will come through tomorrow morning -housing insecure at this time, working on insulin as well, if needed can assist with medical necessity paperwork -anticipate discharge tomorrow (2) DKA (diabetic ketoacidosis): Plan: -resolved -continue subq insulin regiment, will work on affordable medication regiment -appreciate diabetic wallpaper printer helper and education consult (3) Patient's other noncompliance with medication regimen due to financial hardship: Plan: -see above (4) Uncontrolled type 2 diabetes mellitus with hyperglycemia: Plan: see above (5) ILD (interstitial lung disease): Plan: -on room air (6) Hypertension: Plan: -continue home med (7) H/O mechanical aortic valve replacement: Plan: -checkin daily INR, on warfarin, at target 2-3 Plan I spent a total of 40 minutes in direct patient care, including [id number] time with the patient and/or family, reviewing medical records, ordering and reviewing diagnostic tests, and coordinating care with other healthcare providers. This time includes: history taking, physical examination, medical decision making, counseling, ECG interpretation, imaging interpretation, lab interpretation, orders, and education, excluding time spent in the performance of separately billed services. Admission and Anticipated Discharge Date Admission Date: October 10, 2024 Subjective Patient seen and examined at bedside. Working on logistics of getting patient home at this time. Patient is medically stable for discharge just awaiting med ications and home-going regimen. Review of Systems Review of Systems: CONSTITUTIONAL: Patient denies fevers, chills, sweats and weight changes. EYES: Patient denies any visual symptoms. EARS, NOSE, AND THROAT: No difficulties with hearing. No symptoms of rhinitis or sore throat. CARDIOVASCULAR: Patient denies chest pains, palpitations, orthopnea and paroxysmal nocturnal dyspnea. RESPIRATORY: No dyspnea on exertion, no wheezing or cough. GI: No nausea, vomiting, diarrhea, constipation, abdominal pain, hematochezia or melena. : No urinary hesitancy or dribbling. No nocturia or urinary frequency. No abnormal urethral discharge. MUSCULOSKELETAL: No myalgias or arthralgias. NEUROLOGIC: No chronic headaches, no seizures. Patient denies numbness, tingling or weakness. PSYCHIATRIC: Patient denies problems with mood disturbance. No problems with anxiety. ENDOCRINE: No excessive urination or excessive thirst. DERMATOLOGIC: Patient denies any rashes or skin changes. Physical Exam Physical Exam: Gen: A&O 3 NAD HEENT: NCAT, EOMI, not icteric. External ears normal. No rhinorrhea. Moist mucous membranes. Neck: Supple, full range of motion, no observable masses, No meningeal sign. Lungs: No Respiratory distress. CV: RRR, no edema. Abdomen: Soft, nondistended, No rebound tenderness. MSK: No joint swelling, no redness. Skin: No rashes, petechiae, lesions. Normal color per patient. Poor foot hygiene bilaterally with dimished sensation noted Neuro: Normal Gait, Grossly intact. Psych: Appropriate for situation. Results & Data Results & Data Vital Signs (Past 12 Hours) Vital Signs Temp Pulse Resp BP Pulse Ox O2 Del Method 10/16/24 08:10 Room Air 10/16/24 07:32 36.6 C 83 18 136/78 97 Room Air Laboratory Results -personally reviewed, creatinine stable at 0.92 Medications Administered Acetaminophen (Acetaminophen 325 Mg Tab) 650 mg PO Q4H PRN PRN Reason: Pain or Fever Stop: 11/09/24 18:24 Last Admin: 10/14/24 06:04 Dose: 650 mg Documented By: Admin: 10/11/24 17:15 Dose: 650 mg Documented By: Admin: 10/11/24 09:52 Dose: 650 mg Documented By: GLENROY Aspirin (Aspirin 81 Mg Ectab) 81 mg PO DAILY [facility] Stop: 11/10/24 08:59 Last Admin: 10/16/24 09:13 Dose: 81 mg Documented By: Admin: 10/15/24 08:38 Dose: 81 mg Documented By: Admin: 10/14/24 08:55 Dose: 81 mg Documented By: Admin: 10/13/24 08:36 Dose: 81 mg Documented By: Admin: 10/12/24 08:48 Dose: 81 mg Documented By: Admin: 10/11/24 09:26 Dose: 81 mg Documented By: GLENROY Cholestyramine Resin (Cholestyramine Light 4 Gm Pkt) 4 gm PO BID@1000,2200 [facility] Stop: 11/12/24 13:59 Last Admin: 10/16/24 10:35 Dose: 4 gm Documented By: Admin: 10/15/24 20:18 Dose: 4 gm Documented By: Admin: 10/15/24 10:02 Dose: 4 gm Documented By: Admin: 10/14/24 20:57 Dose: 4 gm Documented By: Admin: 10/14/24 10:12 Dose: 4 gm Documented By: Admin: 10/13/24 20:59 Dose: 4 gm Documented By: Admin: 10/13/24 14:32 Dose: 4 gm Documented By: DEMETRIS Fidaxomicin (Fidaxomicin 200 Mg Tab) 200 mg PO BID [facility] Stop: 10/20/24 20:59 Last Admin: 10/16/24 09:09 Dose: 200 mg Documented By: Admin: 10/15/24 20:18 Dose: 200 mg Documented By: Admin: 10/15/24 08:38 Dose: 200 mg Documented By: Admin: 10/14/24 20:57 Dose: 200 mg Documented By: Admin: 10/14/24 08:55 Dose: 200 mg Documented By: Admin: 10/13/24 19:40 Dose: 200 mg Documented By: Admin: 10/13/24 08:41 Dose: 200 mg Documented By: Admin: 10/12/24 19:46 Dose: 200 mg Documented By: Admin: 10/12/24 09:00 Dose: 200 mg Documented By: Admin: 10/11/24 21:03 Dose: 200 mg Documented By: Admin: 10/11/24 09:53 Dose: 200 mg Documented By: Admin: 10/10/24 21:05 Dose: 200 mg Documented By: CHACORTA Gabapentin (Gabapentin 300 Mg Cap) 300 mg PO TID [facility] Stop: 11/09/24 20:59 Last Admin: 10/16/24 14:11 Dose: 300 mg Documented By: Admin: 10/16/24 09:08 Dose: 300 mg Documented By: Admin: 10/15/24 20:18 Dose: 300 mg Documented By: Admin: 10/15/24 14:02 Dose: 300 mg Documented By: Admin: 10/15/24 08:39 Dose: 300 mg Documented By: Admin: 10/14/24 20:57 Dose: 300 mg Documented By: Admin: 10/14/24 14:49 Dose: 300 mg Documented By: Admin: 10/14/24 08:55 Dose: 300 mg Documented By: Admin: 10/13/24 19:41 Dose: 300 mg Documented By: Admin: 10/13/24 14:32 Dose: 300 mg Documented By: Admin: 10/13/24 08:36 Dose: 300 mg Documented By: Admin: 10/12/24 19:46 Dose: 300 mg Documented By: Admin: 10/12/24 14:15 Dose: 300 mg Documented By: Admin: 10/12/24 08:49 Dose: 300 mg Documented By: Admin: 10/11/24 20:50 Dose: 300 mg Documented By: Admin: 10/11/24 14:50 Dose: 300 mg Documented By: Admin: 10/11/24 09:25 Dose: 300 mg Documented By: Admin: 10/10/24 21:05 Dose: 300 mg Documented By: CHACORTA Insulin Aspart (Insulin Aspart Per Unit Charge) 0 units SC 0730 [facility] Stop: 11/15/24 07:29 Last Admin: 10/16/24 09:03 Dose: 17 units Documented By: ASH Co-signed By: DEMETRIS Insulin Aspart (Insulin Aspart Per Unit Charge) 0 units SC 1130,1630,2100 [facility] Stop: 11/14/24 11:29 Last Admin: 10/16/24 12:46 Dose: 13 units Documented By: DEMETRIS Co-signed By: GREGG Admin: 10/15/24 20:20 Dose: Not Given Documented By: MIS Co-signed By: RON Admin: 10/15/24 17:17 Dose: 8 units Documented By: DEMETRIS Co-signed By: AINSLEY Admin: 10/15/24 12:34 Dose: 9 units Documented By: DEMETRIS Co-signed By: GREGG Insulin Glargine (Lantus Per Unit Charge) 20 units SC DAILY [facility] Stop: 11/10/24 08:59 Last Admin: 10/16/24 09:04 Dose: 20 units Documented By: ASH Co-signed By: DEMETRIS Admin: 10/15/24 08:34 Dose: 20 units Documented By: DEMETRIS Co-signed By: ROSA Admin: 10/14/24 08:53 Dose: 20 units Documented By: ASH Co-signed By: DEMETRIS Admin: 10/13/24 08:35 Dose: 20 units Documented By: DEMETRIS Co-signed By: CONNOR Admin: 10/12/24 08:47 Dose: 20 units Documented By: GLENROY Co-signed By: KATELIN Admin: 10/11/24 09:25 Dose: 20 units Documented By: GLENROY Co-signed By: SALMA Insulin Glargine (Lantus Per Unit Charge) 0 units SC [facility]; Protocol Stop: 11/11/24 20:59 Last Admin: 10/15/24 20:20 Dose: 5 units Documented By: MIS Co-signed By: RON Admin: 10/14/24 20:58 Dose: Not Given Documented By: Admin: 10/13/24 20:47 Dose: Not Given Documented By: Admin: 10/12/24 21:07 Dose: Not Given Documented By: RISA Miscellaneous (Carbohydrates For Hypoglycemia ) 15 - 30 gm PO UD PRN PRN Reason: Hypoglycemia Protocol Stop: 11/09/24 14:38 Last Admin: 10/14/24 17:03 Dose: 15 gm Documented By: LUZ Neomycin/Polymyxin/Bacitracin (Neomycin/Polymyx/Bacitr Oint 15 Gm Tube) 1 appln EXT BID PRN PRN Reason: Irritated skin lesion Stop: 11/12/24 13:31 Last Admin: 10/16/24 07:21 Dose: 1 appln Documented By: Admin: 10/15/24 08:40 Dose: 1 appln Documented By: Admin: 10/13/24 15:17 Dose: 1 appln Documented By: DEMETRIS Rosuvastatin Calcium (Rosuvastatin Calcium 20 Mg Tab) [facility] [place] Stop: 11/10/24 08:59 Last Admin: 10/16/24 09:13 Dose: 40 mg Documented By: Admin: 10/15/24 08:39 Dose: 40 mg Documented By: Admin: 10/14/24 08:56 Dose: 40 mg Documented By: Admin: 10/13/24 08:36 Dose: 40 mg Documented By: Admin: 10/12/24 08:48 Dose: 40 mg Documented By: Admin: 10/11/24 09:26 Dose: 40 mg Documented By: GLENROY Warfarin Sodium (Warfarin Sod 10 Mg Tab) 10 mg PO DAILY@1600 [facility] Stop: 11/10/24 15:59 Last Admin: 10/15/24 16:20 Dose: 10 mg Documented By: Admin: 10/14/24 16:28 Dose: 10 mg Documented By: Admin: 10/13/24 16:27 Dose: 10 mg Documented By: Admin: 10/12/24 16:50 Dose: 10 mg Documented By: Admin: 10/11/24 17:16 Dose: 10 mg Documented By: GLENROY
[2024-10-17 06:48] LABS: Hematocrit (blood only) 33.7 % (42.0-52.0); Hemoglobin 11.3 g/dl (14.0-18.0); Mean Corpuscular Hemoglobin 29.7 pg (25.0-34.0); Mean Corpuscular Hgb Conc 33.5 g/dL (32.0-36.0); Mean Corpuscular Volume 88.5 fL (80.0-100.0); Platelet Count 163 K/uL (130-400); RDW Coefficient of Variation 15.7 % (11.5-14.5); RDW Standard Deviation 49.6 fL (36.4-46.3); Red Blood Count 3.81 M/uL (4.70-6.10); White Blood Count 6.42 K/ul (4.8-10.8)
[2024-10-17 06:58] LABS: BUN Creatinine Ratio 21.4 (10-20); Calcium 8.7 mg/dl (8.6-10.3); Creatinine Clr Calc Pharmacy 69.1 ml/min; Potassium 4.6 mmol/L (3.5-5.1)
[2024-10-17 07:14] LABS: INR 2.5 (0.9-1.1); Prothrombin Time 24.7 Seconds (9.0-12.0)
[2024-10-17] MEDS: LANTUS PER UNIT CHARGE SC SCH (08:28)
--- NOTE | 2024-10-17 13:29 | Pharmacy Report ---
Pharmacy Glycemic Short Note 2 - Date of Service October 17, 2024 - Glycemic Short BSG Results (Last 24 hours): 10/16/24 10/16/24 10/17/24 16:19 20:40 06:18 Glucose 218 H POC Glucose 84 141 H 10/17/24 10/17/24 07:30 11:27 Glucose POC Glucose 229 H 124 H OUTPATIENT ANTIDIABETIC REGIMEN: * Novolin 70/30 33 units QDB * Novolin 70/30 22 units QDD * HbA1c 11.7 (10/10/24) ASSESSMENT: 10/17 * Patient received 62 units of insulin yesterday (25 of basal + 37 prandial/correctional). BSGs [id number] mg/dL * Fasting 229 mg/dL this morning- increased AM dose to 25 units with additional scale for PM * Continue with current novolog parameters --- patient downtrends with dinner/HS 10/15/24 * Patient received a total of 69 units of insulin yesterday (20 were basal and 49 were bolus). BSGs were 380-822-30-87mg/dL. * Fasting BSG was 184mg/dL this morning. CR was loosened some with breakfast today and lunch BSG was 245mg/dL. Since BSG are trending higher in the morning and at lunch, will tighten the bolus insulin parameters only at breakfast and then loosen the rest of the day since lower BSG reading are being seen in the evenings. * No change to Lantus doses for now. 10/14/24 * Patient received 68 units of insulin yesterday, 20 units bolus. Blood sugars improved after changing CF/CR to 25/5. * Fasting very elevated this morning, likely d/t BSG of 83mg/dl last night, and patient had snack without carb coverage, and no Lantus. * Will change CF back to 30 today to avoid BSGs less than 90mg/dl. * DKA resolved, remains on Dificid for CDiff, on Lovenox bridge with warfarin for mechanical valve. 10/13/24 * Patient received 51 units of insulin yesterday, 20 units bolus. * Fasting elevated this morning, will change parameters to HS Lantus to ensure patient receives 5 units for goal blood sugar. * Tighten CF/CR slightly for BSG increasing with meals. 10/11/24 * Derek is a 64 YOM admitted with diarrhea and hyperglycemia with a history of type 2 diabetes mellitus. Pharmacy has been consulted to assist with glycemic management while inpatient. * Upon admission BSGs elevated in 300s, Anion gap slightly elevated at 17, Co2 low at 18, and VBG pH slightly acidotic at 7.27. The decision was made to start an insulin drip, BSGs trended down and labs normalized. * Basal/bolus insulin started based on prior data. Patient trends high at lunchtime and has a history of hypoglycemia with aggressive dosage adjustments. He is on fidaxamicin for C. Difficile infection. * Will consider tighter breakfast NovoLog parameters tomorrow. Could also transition basal insulin to NPH tomorrow for better transition back to outpatient insulin dosing. PLAN FOR INPATIENT GLYCEMIC CONTROL: * Hold outpatient diabetes medications * Basal insulin * Lantus 25 units SQ QAM * Lantus 0,5, or 10 units SQ HS based on BSG (0 units BSG < 90, 5 units BSG 90-179, 10 units BSG 180 or greater) * Bolus insulin * NovoLog per scale ACHS or Q6hrs while NPO * Goal Range: Low 110 mg/dL - High 140 mg/dL * Breakfast: -Correction Factor: 20 mg/dL/unit -Nutritional / Prandial insulin per carb ratio of 1 unit per 6 grams CHO consumed * Lunch, supper, HS: -Correction Factor: 30 mg/dL/unit -Nutritional / Prandial insulin per carb ratio of 1 unit per 8 grams CHO consumed
--- NOTE | 2024-10-17 16:43 | Hospitalist Progress Note ---
Date of Service October 17, 2024 Assessment & Plan (1) C. difficile colitis: Plan: -continues to improve on dificid -working with case management to help with aff[facility] -housing insecure at this time, working on insulin as well, if needed can assist with medical necessity paperwork -anticipate discharge tomorrow (2) DKA (diabetic ketoacidosis): Plan: -resolved -continue subq insulin regiment, will work on affordable medication regiment -appreciate diabetic manager wound and education consult (3) Patient's other noncompliance with medication regimen due to financial hardship: Plan: -see above (4) Uncontrolled type 2 diabetes mellitus with hyperglycemia: Plan: see above (5) ILD (interstitial lung disease): Plan: -on room air (6) Hypertension: Plan: -continue home med (7) H/O mechanical aortic valve replacement: Plan: -checkin daily INR, on warfarin, at target 2-3 Plan I spent a total of 40 minutes in direct patient care, including [id number] time with the patient and/or family, reviewing medical records, ordering and reviewing diagnostic tests, and coordinating care with other healthcare providers. This time includes: history taking, physical examination, medical decision making, counseling, ECG interpretation, imaging interpretation, lab interpretation, orders, and education, excluding time spent in the performance of separately billed services. Admission and Anticipated Discharge Date Admission Date: October 10, 2024 Subjective Patient doing well today, no concerns at this time. Awaiting dificid approval. Review of Systems Review of Systems: CONSTITUTIONAL: Patient denies fevers, chills, sweats and weight changes. EYES: Patient denies any visual symptoms. EARS, NOSE, AND THROAT: No difficulties with hearing. No symptoms of rhinitis or sore throat. CARDIOVASCULAR: Patient denies chest pains, palpitations, orthopnea and paroxysmal nocturnal dyspnea. RESPIRATORY: No dyspnea on exertion, no wheezing or cough. GI: No nausea, vomiting, diarrhea, constipation, abdominal pain, hematochezia or melena. : No urinary hesitancy or dribbling. No nocturia or urinary frequency. No abnormal urethral discharge. MUSCULOSKELETAL: No myalgias or arthralgias. NEUROLOGIC: No chronic headaches, no seizures. Patient denies numbness, tingling or weakness. PSYCHIATRIC: Patient denies problems with mood disturbance. No problems with anxiety. ENDOCRINE: No excessive urination or excessive thirst. DERMATOLOGIC: Patient denies any rashes or skin changes. Physical Exam Physical Exam: Gen: A&O 3 NAD HEENT: NCAT, EOMI, not icteric. External ears normal. No rhinorrhea. Moist mucous membranes. Neck: Supple, full range of motion, no observable masses, No meningeal sign. Lungs: No Respiratory distress. CV: RRR, no edema. Abdomen: Soft, nondistended, No rebound tenderness. MSK: No joint swelling, no redness. Skin: No rashes, petechiae, lesions. Normal color per patient. Poor foot hygiene bilaterally with dimished sensation noted Neuro: Normal Gait, Grossly intact. Psych: Appropriate for situation. Results & Data Results & Data Vital Signs (Past 12 Hours) Vital Signs Temp Pulse Resp BP Pulse Ox O2 Del Method 10/17/24 15:01 36.8 C 83 18 138/70 97 Room Air 10/17/24 07:36 36.6 C 82 18 154/76 H 97 Room Air Laboratory Results -personally reviewed, creatinine 0.98 at baseline Medications Administered Acetaminophen (Acetaminophen 325 Mg Tab) 650 mg PO Q4H PRN PRN Reason: Pain or Fever Stop: 11/09/24 18:24 Last Admin: 10/16/24 15:58 Dose: 650 mg Documented By: Admin: 10/14/24 06:04 Dose: 650 mg Documented By: Admin: 10/11/24 17:15 Dose: 650 mg Documented By: Admin: 10/11/24 09:52 Dose: 650 mg Documented By: GLENROY Aspirin (Aspirin 81 Mg Ectab) 81 mg PO DAILY [facility] Stop: 11/10/24 08:59 Last Admin: 10/17/24 08:05 Dose: 81 mg Documented By: Admin: 10/16/24 09:13 Dose: 81 mg Documented By: Admin: 10/15/24 08:38 Dose: 81 mg Documented By: Admin: 10/14/24 08:55 Dose: 81 mg Documented By: Admin: 10/13/24 08:36 Dose: 81 mg Documented By: Admin: 10/12/24 08:48 Dose: 81 mg Documented By: Admin: 10/11/24 09:26 Dose: 81 mg Documented By: GLENROY Cholestyramine Resin (Cholestyramine Light 4 Gm Pkt) 4 gm PO BID@1000,2200 [facility] Stop: 11/12/24 13:59 Last Admin: 10/17/24 09:31 Dose: 4 gm Documented By: Admin: 10/16/24 21:14 Dose: 4 gm Documented By: Admin: 10/16/24 10:35 Dose: 4 gm Documented By: Admin: 10/15/24 20:18 Dose: 4 gm Documented By: Admin: 10/15/24 10:02 Dose: 4 gm Documented By: Admin: 10/14/24 20:57 Dose: 4 gm Documented By: Admin: 10/14/24 10:12 Dose: 4 gm Documented By: Admin: 10/13/24 20:59 Dose: 4 gm Documented By: Admin: 10/13/24 14:32 Dose: 4 gm Documented By: DEMETRIS Fidaxomicin (Fidaxomicin 200 Mg Tab) 200 mg PO BID [facility] Stop: 10/20/24 20:59 Last Admin: 10/17/24 08:24 Dose: 200 mg Documented By: Admin: 10/16/24 19:48 Dose: 200 mg Documented By: Admin: 10/16/24 09:09 Dose: 200 mg Documented By: Admin: 10/15/24 20:18 Dose: 200 mg Documented By: Admin: 10/15/24 08:38 Dose: 200 mg Documented By: Admin: 10/14/24 20:57 Dose: 200 mg Documented By: Admin: 10/14/24 08:55 Dose: 200 mg Documented By: Admin: 10/13/24 19:40 Dose: 200 mg Documented By: Admin: 10/13/24 08:41 Dose: 200 mg Documented By: Admin: 10/12/24 19:46 Dose: 200 mg Documented By: Admin: 10/12/24 09:00 Dose: 200 mg Documented By: Admin: 10/11/24 21:03 Dose: 200 mg Documented By: Admin: 10/11/24 09:53 Dose: 200 mg Documented By: Admin: 10/10/24 21:05 Dose: 200 mg Documented By: CHACORTA Gabapentin (Gabapentin 300 Mg Cap) 300 mg PO TID [facility] Stop: 11/09/24 20:59 Last Admin: 10/17/24 13:39 Dose: 300 mg Documented By: Admin: 10/17/24 08:05 Dose: 300 mg Documented By: Admin: 10/16/24 19:48 Dose: 300 mg Documented By: Admin: 10/16/24 14:11 Dose: 300 mg Documented By: Admin: 10/16/24 09:08 Dose: 300 mg Documented By: Admin: 10/15/24 20:18 Dose: 300 mg Documented By: Admin: 10/15/24 14:02 Dose: 300 mg Documented By: Admin: 10/15/24 08:39 Dose: 300 mg Documented By: Admin: 10/14/24 20:57 Dose: 300 mg Documented By: Admin: 10/14/24 14:49 Dose: 300 mg Documented By: Admin: 10/14/24 08:55 Dose: 300 mg Documented By: Admin: 10/13/24 19:41 Dose: 300 mg Documented By: Admin: 10/13/24 14:32 Dose: 300 mg Documented By: Admin: 10/13/24 08:36 Dose: 300 mg Documented By: Admin: 10/12/24 19:46 Dose: 300 mg Documented By: Admin: 10/12/24 14:15 Dose: 300 mg Documented By: Admin: 10/12/24 08:49 Dose: 300 mg Documented By: Admin: 10/11/24 20:50 Dose: 300 mg Documented By: Admin: 10/11/24 14:50 Dose: 300 mg Documented By: Admin: 10/11/24 09:25 Dose: 300 mg Documented By: Admin: 10/10/24 21:05 Dose: 300 mg Documented By: CHACORTA Insulin Aspart (Insulin Aspart Per Unit Charge) 0 units SC 0730 [facility] Stop: 11/15/24 07:29 Last Admin: 10/17/24 08:29 Dose: 18 units Documented By: SARAH Co-signed By: ROSA Admin: 10/16/24 09:03 Dose: 17 units Documented By: ASH Co-signed By: DEMETRIS Insulin Aspart (Insulin Aspart Per Unit Charge) 0 units SC 1130,1630,2100 [facility] Stop: 11/14/24 11:29 Last Admin: 10/17/24 12:24 Dose: Not Given Documented By: Admin: 10/16/24 20:45 Dose: 1 units Documented By: RISA Co-signed By: RON Admin: 10/16/24 17:06 Dose: 6 units Documented By: DEMETRIS Co-signed By: ROSA Admin: 10/16/24 12:46 Dose: 13 units Documented By: DEMETRIS Co-signed By: GREGG Admin: 10/15/24 20:20 Dose: Not Given Documented By: MIS Co-signed By: RON Admin: 10/15/24 17:17 Dose: 8 units Documented By: DEMETRIS Co-signed By: AINSLEY Admin: 10/15/24 12:34 Dose: 9 units Documented By: DEMETRIS Co-signed By: GREGG Insulin Glargine (Lantus Per Unit Charge) 0 units SC HS [facility]; Protocol Stop: 11/11/24 20:59 Last Admin: 10/16/24 20:46 Dose: 5 units Documented By: RISA Co-signed By: RON Admin: 10/15/24 20:20 Dose: 5 units Documented By: MIS Co-signed By: RON Admin: 10/14/24 20:58 Dose: Not Given Documented By: Admin: 10/13/24 20:47 Dose: Not Given Documented By: Admin: 10/12/24 21:07 Dose: Not Given Documented By: RISA Insulin Glargine (Lantus Per Unit Charge) 25 units SC DAILY [facility] Stop: 11/10/24 08:59 Last Admin: 10/17/24 08:28 Dose: 25 units Documented By: SARAH Co-signed By: ROSA Miscellaneous (Carbohydrates For Hypoglycemia ) 15 - 30 gm PO UD PRN PRN Reason: Hypoglycemia Protocol Stop: 11/09/24 14:38 Last Admin: 10/14/24 17:03 Dose: 15 gm Documented By: LUZ Neomycin/Polymyxin/Bacitracin (Neomycin/Polymyx/Bacitr Oint 15 Gm Tube) 1 appln EXT BID PRN PRN Reason: Irritated skin lesion Stop: 11/12/24 13:31 Last Admin: 10/16/24 17:06 Dose: 1 appln Documented By: Admin: 10/16/24 07:21 Dose: 1 appln Documented By: Admin: 10/15/24 08:40 Dose: 1 appln Documented By: Admin: 10/13/24 15:17 Dose: 1 appln Documented By: DEMETRIS Rosuvastatin Calcium (Rosuvastatin Calcium 20 Mg Tab) 40 mg PO QAM [facility] Stop: 11/10/24 08:59 Last Admin: 10/17/24 08:05 Dose: 40 mg Documented By: Admin: 10/16/24 09:13 Dose: 40 mg Documented By: Admin: 10/15/24 08:39 Dose: 40 mg Documented By: Admin: 10/14/24 08:56 Dose: 40 mg Documented By: Admin: 10/13/24 08:36 Dose: 40 mg Documented By: Admin: 10/12/24 08:48 Dose: 40 mg Documented By: Admin: 10/11/24 09:26 Dose: 40 mg Documented By: GLENROY Warfarin Sodium (Warfarin Sod 10 Mg Tab) 10 mg PO DAILY@1600 [facility] Stop: 11/10/24 15:59 Last Admin: 10/17/24 16:04 Dose: 10 mg Documented By: Admin: 10/16/24 16:00 Dose: 10 mg Documented By: Admin: 10/15/24 16:20 Dose: 10 mg Documented By: Admin: 10/14/24 16:28 Dose: 10 mg Documented By: Admin: 10/13/24 16:27 Dose: 10 mg Documented By: Admin: 10/12/24 16:50 Dose: 10 mg Documented By: Admin: 10/11/24 17:16 Dose: 10 mg Documented By: GLENROY
--- NOTE | 2024-10-18 16:47 | Hospitalist Progress Note ---
Date of Service October 18, 2024 Assessment & Plan (1) C. difficile colitis: Plan: -continues to improve on dificid -working with case management to help with [facility] -housing insecure at this time, working on insulin as well, if needed can assist with medical necessity paperwork -anticipate discharge Sunday after 10 day course of antibiotics (2) DKA (diabetic ketoacidosis): Plan: -resolved -continue subq insulin regiment, will work on affordable medication regiment -appreciate diabetic division plant engineer and education consult (3) Patient's other noncompliance with medication regimen due to financial hardship: Plan: -see above (4) Uncontrolled type 2 diabetes mellitus with hyperglycemia: Plan: see above (5) ILD (interstitial lung disease): Plan: -on room air (6) Hypertension: Plan: -continue home med (7) H/O mechanical aortic valve replacement: Plan: -checkin daily INR, on warfarin, at target 2-3 Plan I spent a total of 40 minutes in direct patient care, including [id number] time with the patient and/or family, reviewing medical records, ordering and reviewing diagnostic tests, and coordinating care with other healthcare providers. This time includes: history taking, physical examination, medical decision making, counseling, ECG interpretation, imaging interpretation, lab interpretation, orders, and education, excluding time spent in the performance of separately billed services. Admission and Anticipated Discharge Date Admission Date: October 10, 2024 Subjective Patient seen and examined at bedside. Patient comfortable today, no concerns. Will finish 10 days of antibiotics for c. diff before discharge home, as patient states unable to afford medications or pick them up due to financial restraints. Review of Systems Review of Systems: CONSTITUTIONAL: Patient denies fevers, chills, sweats and weight changes. EYES: Patient denies any visual symptoms. EARS, NOSE, AND THROAT: No difficulties with hearing. No symptoms of rhinitis or sore throat. CARDIOVASCULAR: Patient denies chest pains, palpitations, orthopnea and paroxysmal nocturnal dyspnea. RESPIRATORY: No dyspnea on exertion, no wheezing or cough. GI: No nausea, vomiting, diarrhea, constipation, abdominal pain, hematochezia or melena. : No urinary hesitancy or dribbling. No nocturia or urinary frequency. No abnormal urethral discharge. MUSCULOSKELETAL: No myalgias or arthralgias. NEUROLOGIC: No chronic headaches, no seizures. Patient denies numbness, tingling or weakness. PSYCHIATRIC: Patient denies problems with mood disturbance. No problems with anxiety. ENDOCRINE: No excessive urination or excessive thirst. DERMATOLOGIC: Patient denies any rashes or skin changes. Physical Exam Physical Exam: Gen: A&O 3 NAD HEENT: NCAT, EOMI, not icteric. External ears normal. No rhinorrhea. Moist mucous membranes. Neck: Supple, full range of motion, no observable masses, No meningeal sign. Lungs: No Respiratory distress. CV: RRR, no edema. Abdomen: Soft, nondistended, No rebound tenderness. MSK: No joint swelling, no redness. Skin: No rashes, petechiae, lesions. Normal color per patient. Poor foot hygiene bilaterally with dimished sensation noted Neuro: Normal Gait, Grossly intact. Psych: Appropriate for situation. Results & Data Results & Data Vital Signs (Past 12 Hours) Vital Signs Temp Pulse Resp BP Pulse Ox O2 Del Method 10/18/24 15:07 36.8 C 86 20 125/69 97 Room Air 10/18/24 07:59 36.5 C 84 20 126/77 95 Room Air Medications Administered Acetaminophen (Acetaminophen 325 Mg Tab) 650 mg PO Q4H PRN PRN Reason: Pain or Fever Stop: 11/09/24 18:24 Last Admin: 10/16/24 15:58 Dose: 650 mg Documented By: Admin: 10/14/24 06:04 Dose: 650 mg Documented By: Admin: 10/11/24 17:15 Dose: 650 mg Documented By: Admin: 10/11/24 09:52 Dose: 650 mg Documented By: GLENROY Aspirin (Aspirin 81 Mg Ectab) 81 mg PO DAILY NELI Stop: 11/10/24 08:59 Last Admin: 10/18/24 09:01 Dose: 81 mg Documented By: Admin: 10/17/24 08:05 Dose: 81 mg Documented By: Admin: 10/16/24 09:13 Dose: 81 mg Documented By: Admin: 10/15/24 08:38 Dose: 81 mg Documented By: Admin: 10/14/24 08:55 Dose: 81 mg Documented By: Admin: 10/13/24 08:36 Dose: 81 mg Documented By: Admin: 10/12/24 08:48 Dose: 81 mg Documented By: Admin: 10/11/24 09:26 Dose: 81 mg Documented By: GLENROY Cholestyramine Resin (Cholestyramine Light 4 Gm Pkt) 4 gm PO BID@1000,2200 NELI Stop: 11/12/24 13:59 Last Admin: 10/18/24 10:21 Dose: 4 gm Documented By: Admin: 10/17/24 21:12 Dose: 4 gm Documented By: Admin: 10/17/24 09:31 Dose: 4 gm Documented By: Admin: 10/16/24 21:14 Dose: 4 gm Documented By: Admin: 10/16/24 10:35 Dose: 4 gm Documented By: Admin: 10/15/24 20:18 Dose: 4 gm Documented By: Admin: 10/15/24 10:02 Dose: 4 gm Documented By: Admin: 10/14/24 20:57 Dose: 4 gm Documented By: Admin: 10/14/24 10:12 Dose: 4 gm Documented By: Admin: 10/13/24 20:59 Dose: 4 gm Documented By: Admin: 10/13/24 14:32 Dose: 4 gm Documented By: DEMETRIS Fidaxomicin (Fidaxomicin 200 Mg Tab) 200 mg PO BID NELI Stop: 10/20/24 20:59 Last Admin: 10/18/24 09:01 Dose: 200 mg Documented By: Admin: 10/17/24 21:11 Dose: 200 mg Documented By: Admin: 10/17/24 08:24 Dose: 200 mg Documented By: Admin: 10/16/24 19:48 Dose: 200 mg Documented By: Admin: 10/16/24 09:09 Dose: 200 mg Documented By: Admin: 10/15/24 20:18 Dose: 200 mg Documented By: Admin: 10/15/24 08:38 Dose: 200 mg Documented By: Admin: 10/14/24 20:57 Dose: 200 mg Documented By: Admin: 10/14/24 08:55 Dose: 200 mg Documented By: Admin: 10/13/24 19:40 Dose: 200 mg Documented By: Admin: 10/13/24 08:41 Dose: 200 mg Documented By: Admin: 10/12/24 19:46 Dose: 200 mg Documented By: Admin: 10/12/24 09:00 Dose: 200 mg Documented By: Admin: 10/11/24 21:03 Dose: 200 mg Documented By: Admin: 10/11/24 09:53 Dose: 200 mg Documented By: Admin: 10/10/24 21:05 Dose: 200 mg Documented By: CHACORTA Gabapentin (Gabapentin 300 Mg Cap) 300 mg PO TID NELI Stop: 11/09/24 20:59 Last Admin: 10/18/24 14:16 Dose: 300 mg Documented By: Admin: 10/18/24 09:01 Dose: 300 mg Documented By: Admin: 10/17/24 21:11 Dose: 300 mg Documented By: Admin: 10/17/24 13:39 Dose: 300 mg Documented By: Admin: 10/17/24 08:05 Dose: 300 mg Documented By: Admin: 10/16/24 19:48 Dose: 300 mg Documented By: Admin: 10/16/24 14:11 Dose: 300 mg Documented By: Admin: 10/16/24 09:08 Dose: 300 mg Documented By: Admin: 10/15/24 20:18 Dose: 300 mg Documented By: Admin: 10/15/24 14:02 Dose: 300 mg Documented By: Admin: 10/15/24 08:39 Dose: 300 mg Documented By: Admin: 10/14/24 20:57 Dose: 300 mg Documented By: Admin: 10/14/24 14:49 Dose: 300 mg Documented By: Admin: 10/14/24 08:55 Dose: 300 mg Documented By: Admin: 10/13/24 19:41 Dose: 300 mg Documented By: Admin: 10/13/24 14:32 Dose: 300 mg Documented By: Admin: 10/13/24 08:36 Dose: 300 mg Documented By: Admin: 10/12/24 19:46 Dose: 300 mg Documented By: Admin: 10/12/24 14:15 Dose: 300 mg Documented By: Admin: 10/12/24 08:49 Dose: 300 mg Documented By: Admin: 10/11/24 20:50 Dose: 300 mg Documented By: Admin: 10/11/24 14:50 Dose: 300 mg Documented By: Admin: 10/11/24 09:25 Dose: 300 mg Documented By: Admin: 10/10/24 21:05 Dose: 300 mg Documented By: CHACORTA Insulin Aspart (Insulin Aspart Per Unit Charge) 0 units SC 0730 NELI Stop: 11/15/24 07:29 Last Admin: 10/18/24 09:02 Dose: 14 units Documented By: SARAH Co-signed By: BUFFY Admin: 10/17/24 08:29 Dose: 18 units Documented By: SARAH Co-signed By: ROSA Admin: 10/16/24 09:03 Dose: 17 units Documented By: ASH Co-signed By: DEMETRIS Insulin Aspart (Insulin Aspart Per Unit Charge) 0 units SC 1130,1630,2100 NELI Stop: 11/14/24 11:29 Last Admin: 10/18/24 12:30 Dose: 11 units Documented By: SARAH Co-signed By: CAPO Admin: 10/17/24 21:13 Dose: 9 units Documented By: ANGELINA Co-signed By: OBI Admin: 10/17/24 17:10 Dose: 8 units Documented By: SARAH Co-signed By: RT Admin: 10/17/24 12:24 Dose: Not Given Documented By: Admin: 10/16/24 20:45 Dose: 1 units Documented By: RISA Co-signed By: RON Admin: 10/16/24 17:06 Dose: 6 units Documented By: DEMETRIS Co-signed By: ROSA Admin: 10/16/24 12:46 Dose: 13 units Documented By: DEMETRIS Co-signed By: GREGG Admin: 10/15/24 20:20 Dose: Not Given Documented By: MIS Co-signed By: RON Admin: 10/15/24 17:17 Dose: 8 units Documented By: DEMETRIS Co-signed By: AINSLEY Admin: 10/15/24 12:34 Dose: 9 units Documented By: DEMETRIS Co-signed By: CS Insulin Glargine (Lantus Per Unit Charge) 0 units SC HS NELI; Protocol Stop: 11/11/24 20:59 Last Admin: 10/17/24 21:12 Dose: 10 units Documented By: ANGELINA Co-signed By: OBI Admin: 10/16/24 20:46 Dose: 5 units Documented By: RISA Co-signed By: RON Admin: 10/15/24 20:20 Dose: 5 units Documented By: MIS Co-signed By: RON Admin: 10/14/24 20:58 Dose: Not Given Documented By: Admin: 10/13/24 20:47 Dose: Not Given Documented By: Admin: 10/12/24 21:07 Dose: Not Given Documented By: RISA Insulin Glargine (Lantus Per Unit Charge) 25 units SC DAILY [facility] Stop: 11/10/24 08:59 Last Admin: 10/18/24 09:03 Dose: 25 units Documented By: SARAH Co-signed By: BUFFY Admin: 10/17/24 08:28 Dose: 25 units Documented By: SARAH Co-signed By: ROSA Miscellaneous (Carbohydrates For Hypoglycemia ) 15 - 30 gm PO UD PRN PRN Reason: Hypoglycemia Protocol Stop: 11/09/24 14:38 Last Admin: 10/14/24 17:03 Dose: 15 gm Documented By: LUZ Neomycin/Polymyxin/Bacitracin (Neomycin/Polymyx/Bacitr Oint 15 Gm Tube) 1 appln EXT BID PRN PRN Reason: Irritated skin lesion Stop: 11/12/24 13:31 Last Admin: 10/16/24 17:06 Dose: 1 appln Documented By: Admin: 10/16/24 07:21 Dose: 1 appln Documented By: Admin: 10/15/24 08:40 Dose: 1 appln Documented By: Admin: 10/13/24 15:17 Dose: 1 appln Documented By: DEMETRIS Rosuvastatin Calcium (Rosuvastatin Calcium 20 Mg Tab) 40 mg PO QAM [facility] Stop: 11/10/24 08:59 Last Admin: 10/18/24 09:00 Dose: 40 mg Documented By: Admin: 10/17/24 08:05 Dose: 40 mg Documented By: Admin: 10/16/24 09:13 Dose: 40 mg Documented By: Admin: 10/15/24 08:39 Dose: 40 mg Documented By: Admin: 10/14/24 08:56 Dose: 40 mg Documented By: Admin: 10/13/24 08:36 Dose: 40 mg Documented By: Admin: 10/12/24 08:48 Dose: 40 mg Documented By: Admin: 10/11/24 09:26 Dose: 40 mg Documented By: GLENROY Warfarin Sodium (Warfarin Sod 10 Mg Tab) 10 mg PO DAILY@1600 NELI Stop: 11/10/24 15:59 Last Admin: 10/18/24 15:55 Dose: 10 mg Documented By: Admin: 10/17/24 16:04 Dose: 10 mg Documented By: Admin: 10/16/24 16:00 Dose: 10 mg Documented By: Admin: 10/15/24 16:20 Dose: 10 mg Documented By: Admin: 10/14/24 16:28 Dose: 10 mg Documented By: Admin: 10/13/24 16:27 Dose: 10 mg Documented By: Admin: 10/12/24 16:50 Dose: 10 mg Documented By: Admin: 10/11/24 17:16 Dose: 10 mg Documented By: GLENROY
[2024-10-19 07:31] VITALS: RESP 16
[2024-10-19 08:22] LABS: Hematocrit (blood only) 37.3 % (42.0-52.0); Hemoglobin 12.1 g/dl (14.0-18.0); Mean Corpuscular Hemoglobin 29.7 pg (25.0-34.0); Mean Corpuscular Hgb Conc 32.4 g/dL (32.0-36.0); Mean Corpuscular Volume 91.6 fL (80.0-100.0); Platelet Count 202 K/uL (130-400); RDW Coefficient of Variation 16.1 % (11.5-14.5); RDW Standard Deviation 53.1 fL (36.4-46.3); Red Blood Count 4.07 M/uL (4.70-6.10); White Blood Count 6.83 K/ul (4.8-10.8)
[2024-10-19 08:43] LABS: BUN Creatinine Ratio 21.9 (10-20); Calcium 8.9 mg/dl (8.6-10.3); Creatinine Clr Calc Pharmacy 70.5 ml/min; Potassium 4.4 mmol/L (3.5-5.1)
--- NOTE | 2024-10-19 13:47 | Hospitalist Progress Note ---
Date of Service October 19, 2024 Assessment & Plan (1) C. difficile colitis: Plan: -continues to improve on dificid -working with case management to help with aff[facility] -h[facility] insecure at this time, working on insulin as well, if needed can assist with medical necessity paperwork -anticipate discharge Sunday after 10 day course of antibiotics (2) DKA (diabetic ketoacidosis): Plan: -resolved -continue subq insulin regiment, will work on affordable medication regiment -appreciate diabetic rehabilitation physician and education consult (3) Patient's other noncompliance with medication regimen due to financial hardship: Plan: -see above (4) Uncontrolled type 2 diabetes mellitus with hyperglycemia: Plan: see above (5) ILD (interstitial lung disease): Plan: -on room air (6) Hypertension: Plan: -continue home med (7) H/O mechanical aortic valve replacement: Plan: -checkin daily INR, on warfarin, at target 2-3 Plan I spent a total of 40 minutes in direct patient care, including [id number] time with the patient and/or family, reviewing medical records, ordering and reviewing diagnostic tests, and coordinating care with other healthcare providers. This time includes: history taking, physical examination, medical decision making, counseling, ECG interpretation, imaging interpretation, lab interpretation, orders, and education, excluding time spent in the performance of separately billed services. Admission and Anticipated Discharge Date Admission Date: October 10, 2024 Subjective Patient seen and examined at bedside. patient doing well today overall. Discussed plan for discharge tomorrow after 10 days of IV abx for c.diff, he is agreeable. He is comfortable at this time. Physical Exam Physical Exam: Gen: A&O 3 NAD HEENT: NCAT, EOMI, not icteric. External ears normal. No rhinorrhea. Moist mucous membranes. Neck: Supple, full range of motion, no observable masses, No meningeal sign. Lungs: No Respiratory distress. CV: RRR, no edema. Abdomen: Soft, nondistended, No rebound tenderness. MSK: No joint swelling, no redness. Skin: No rashes, petechiae, lesions. Normal color per patient. Poor foot hygiene bilaterally with dimished sensation noted Neuro: Normal Gait, Grossly intact. Psych: Appropriate for situation. Results & Data Results & Data Vital Signs (Past 12 Hours) Vital Signs Temp Pulse Resp BP Pulse Ox O2 Del Method 10/19/24 07:31 36.5 C 86 16 129/69 97 Room Air Laboratory Results -personally reviewed, creatinine stable at this time Medications Administered Acetaminophen (Acetaminophen 325 Mg Tab) 650 mg PO Q4H PRN PRN Reason: Pain or Fever Stop: 11/09/24 18:24 Last Admin: 10/18/24 21:29 Dose: 650 mg Documented By: Admin: 10/16/24 15:58 Dose: 650 mg Documented By: Admin: 10/14/24 06:04 Dose: 650 mg Documented By: Admin: 10/11/24 17:15 Dose: 650 mg Documented By: Admin: 10/11/24 09:52 Dose: 650 mg Documented By: GLENROY Aspirin (Aspirin 81 Mg Ectab) 81 mg PO DAILY [facility] Stop: 11/10/24 08:59 Last Admin: 10/19/24 08:30 Dose: 81 mg Documented By: Admin: 10/18/24 09:01 Dose: 81 mg Documented By: Admin: 10/17/24 08:05 Dose: 81 mg Documented By: Admin: 10/16/24 09:13 Dose: 81 mg Documented By: Admin: 10/15/24 08:38 Dose: 81 mg Documented By: Admin: 10/14/24 08:55 Dose: 81 mg Documented By: Admin: 10/13/24 08:36 Dose: 81 mg Documented By: Admin: 10/12/24 08:48 Dose: 81 mg Documented By: Admin: 10/11/24 09:26 Dose: 81 mg Documented By: GLENROY Cholestyramine Resin (Cholestyramine Light 4 Gm Pkt) 4 gm PO BID@1000,2200 [facility] Stop: 11/12/24 13:59 Last Admin: 10/19/24 11:05 Dose: 4 gm Documented By: Admin: 10/18/24 21:29 Dose: 4 gm Documented By: Admin: 10/18/24 10:21 Dose: 4 gm Documented By: Admin: 10/17/24 21:12 Dose: 4 gm Documented By: Admin: 10/17/24 09:31 Dose: 4 gm Documented By: Admin: 10/16/24 21:14 Dose: 4 gm Documented By: Admin: 10/16/24 10:35 Dose: 4 gm Documented By: Admin: 10/15/24 20:18 Dose: 4 gm Documented By: Admin: 10/15/24 10:02 Dose: 4 gm Documented By: Admin: 10/14/24 20:57 Dose: 4 gm Documented By: Admin: 10/14/24 10:12 Dose: 4 gm Documented By: Admin: 10/13/24 20:59 Dose: 4 gm Documented By: Admin: 10/13/24 14:32 Dose: 4 gm Documented By: DEMETRIS Fidaxomicin (Fidaxomicin 200 Mg Tab) 200 mg PO BID NELI Stop: 10/20/24 20:59 Last Admin: 10/19/24 08:30 Dose: 200 mg Documented By: Admin: 10/18/24 21:29 Dose: 200 mg Documented By: Admin: 10/18/24 09:01 Dose: 200 mg Documented By: Admin: 10/17/24 21:11 Dose: 200 mg Documented By: Admin: 10/17/24 08:24 Dose: 200 mg Documented By: Admin: 10/16/24 19:48 Dose: 200 mg Documented By: Admin: 10/16/24 09:09 Dose: 200 mg Documented By: Admin: 10/15/24 20:18 Dose: 200 mg Documented By: Admin: 10/15/24 08:38 Dose: 200 mg Documented By: Admin: 10/14/24 20:57 Dose: 200 mg Documented By: Admin: 10/14/24 08:55 Dose: 200 mg Documented By: Admin: 10/13/24 19:40 Dose: 200 mg Documented By: Admin: 10/13/24 08:41 Dose: 200 mg Documented By: Admin: 10/12/24 19:46 Dose: 200 mg Documented By: Admin: 10/12/24 09:00 Dose: 200 mg Documented By: Admin: 10/11/24 21:03 Dose: 200 mg Documented By: Admin: 10/11/24 09:53 Dose: 200 mg Documented By: Admin: 10/10/24 21:05 Dose: 200 mg Documented By: CHACORTA Gabapentin (Gabapentin 300 Mg Cap) 300 mg PO TID NELI Stop: 11/09/24 20:59 Last Admin: 10/19/24 13:22 Dose: 300 mg Documented By: Admin: 10/19/24 08:29 Dose: 300 mg Documented By: Admin: 10/18/24 21:29 Dose: 300 mg Documented By: Admin: 10/18/24 14:16 Dose: 300 mg Documented By: Admin: 10/18/24 09:01 Dose: 300 mg Documented By: Admin: 10/17/24 21:11 Dose: 300 mg Documented By: Admin: 10/17/24 13:39 Dose: 300 mg Documented By: Admin: 10/17/24 08:05 Dose: 300 mg Documented By: Admin: 10/16/24 19:48 Dose: 300 mg Documented By: Admin: 10/16/24 14:11 Dose: 300 mg Documented By: Admin: 10/16/24 09:08 Dose: 300 mg Documented By: Admin: 10/15/24 20:18 Dose: 300 mg Documented By: Admin: 10/15/24 14:02 Dose: 300 mg Documented By: Admin: 10/15/24 08:39 Dose: 300 mg Documented By: Admin: 10/14/24 20:57 Dose: 300 mg Documented By: Admin: 10/14/24 14:49 Dose: 300 mg Documented By: Admin: 10/14/24 08:55 Dose: 300 mg Documented By: Admin: 10/13/24 19:41 Dose: 300 mg Documented By: Admin: 10/13/24 14:32 Dose: 300 mg Documented By: Admin: 10/13/24 08:36 Dose: 300 mg Documented By: Admin: 10/12/24 19:46 Dose: 300 mg Documented By: Admin: 10/12/24 14:15 Dose: 300 mg Documented By: Admin: 10/12/24 08:49 Dose: 300 mg Documented By: Admin: 10/11/24 20:50 Dose: 300 mg Documented By: Admin: 10/11/24 14:50 Dose: 300 mg Documented By: Admin: 10/11/24 09:25 Dose: 300 mg Documented By: Admin: 10/10/24 21:05 Dose: 300 mg Documented By: CHACORTA Insulin Aspart (Insulin Aspart Per Unit Charge) 0 units SC 0730 NELI Stop: 11/15/24 07:29 Last Admin: 10/19/24 08:32 Dose: 16 units Documented By: SARAH Co-signed By: CONNOR Admin: 10/18/24 09:02 Dose: 14 units Documented By: SARAH Co-signed By: BUFFY Admin: 10/17/24 08:29 Dose: 18 units Documented By: SARAH Co-signed By: ROSA Admin: 10/16/24 09:03 Dose: 17 units Documented By: ASH Co-signed By: DEMETRIS Insulin Aspart (Insulin Aspart Per Unit Charge) 0 units SC 1130,1630,2100 NELI Stop: 11/14/24 11:29 Last Admin: 10/19/24 12:34 Dose: 9 units Documented By: SARAH Co-signed By: CONNOR Admin: 10/18/24 21:30 Dose: 5 units Documented By: ANGELINA Co-signed By: EDDA Admin: 10/18/24 17:09 Dose: 9 units Documented By: SARAH Co-signed By: CONNOR Admin: 10/18/24 12:30 Dose: 11 units Documented By: SARAH Co-signed By: CAPO Admin: 10/17/24 21:13 Dose: 9 units Documented By: ANGELINA Co-signed By: OBI Admin: 10/17/24 17:10 Dose: 8 units Documented By: SARAH Co-signed By: RT Admin: 10/17/24 12:24 Dose: Not Given Documented By: Admin: 10/16/24 20:45 Dose: 1 units Documented By: RISA Co-signed By: RON Admin: 10/16/24 17:06 Dose: 6 units Documented By: DEMETRIS Co-signed By: ROSA Admin: 10/16/24 12:46 Dose: 13 units Documented By: DEMETRIS Co-signed By: GREGG Admin: 10/15/24 20:20 Dose: Not Given Documented By: MIS Co-signed By: RON Admin: 10/15/24 17:17 Dose: 8 units Documented By: DEMETRIS Co-signed By: AINSLEY Admin: 10/15/24 12:34 Dose: 9 units Documented By: DEMETRIS Co-signed By: GREGG Insulin Glargine (Lantus Per Unit Charge) 0 units SC HS NELI; Protocol Stop: 11/11/24 20:59 Last Admin: 10/18/24 21:31 Dose: 5 units Documented By: ANGELINA Co-signed By: EDDA Admin: 10/17/24 21:12 Dose: 10 units Documented By: ANGELINA Co-signed By: OBI Admin: 10/16/24 20:46 Dose: 5 units Documented By: RISA Co-signed By: RON Admin: 10/15/24 20:20 Dose: 5 units Documented By: MIS Co-signed By: RON Admin: 10/14/24 20:58 Dose: Not Given Documented By: Admin: 10/13/24 20:47 Dose: Not Given Documented By: Admin: 10/12/24 21:07 Dose: Not Given Documented By: RISA Insulin Glargine (Lantus Per Unit Charge) 25 units SC DAILY [facility] Stop: 11/10/24 08:59 Last Admin: 10/19/24 08:32 Dose: 25 units Documented By: SARAH Co-signed By: CONNOR Admin: 10/18/24 09:03 Dose: 25 units Documented By: SARAH Co-signed By: BUFFY Admin: 10/17/24 08:28 Dose: 25 units Documented By: SARAH Co-signed By: ROSA Miscellaneous (Carbohydrates For Hypoglycemia ) 15 - 30 gm PO UD PRN PRN Reason: Hypoglycemia Protocol Stop: 11/09/24 14:38 Last Admin: 10/14/24 17:03 Dose: 15 gm Documented By: LUZ Neomycin/Polymyxin/Bacitracin (Neomycin/Polymyx/Bacitr Oint 15 Gm Tube) 1 appln EXT BID PRN PRN Reason: Irritated skin lesion Stop: 11/12/24 13:31 Last Admin: 10/16/24 17:06 Dose: 1 appln Documented By: Admin: 10/16/24 07:21 Dose: 1 appln Documented By: Admin: 10/15/24 08:40 Dose: 1 appln Documented By: Admin: 10/13/24 15:17 Dose: 1 appln Documented By: DEMETRIS Rosuvastatin Calcium (Rosuvastatin Calcium 20 Mg Tab) 40 mg PO QAM [facility] Stop: 11/10/24 08:59 Last Admin: 10/19/24 08:29 Dose: 40 mg Documented By: Admin: 10/18/24 09:00 Dose: 40 mg Documented By: Admin: 10/17/24 08:05 Dose: 40 mg Documented By: Admin: 10/16/24 09:13 Dose: 40 mg Documented By: Admin: 10/15/24 08:39 Dose: 40 mg Documented By: Admin: 10/14/24 08:56 Dose: 40 mg Documented By: Admin: 10/13/24 08:36 Dose: 40 mg Documented By: Admin: 10/12/24 08:48 Dose: 40 mg Documented By: Admin: 10/11/24 09:26 Dose: 40 mg Documented By: GLENROY Warfarin Sodium (Warfarin Sod 10 Mg Tab) 10 mg PO DAILY@1600 [facility] Stop: 11/10/24 15:59 Last Admin: 10/18/24 15:55 Dose: 10 mg Documented By: Admin: 10/17/24 16:04 Dose: 10 mg Documented By: Admin: 10/16/24 16:00 Dose: 10 mg Documented By: Admin: 10/15/24 16:20 Dose: 10 mg Documented By: Admin: 10/14/24 16:28 Dose: 10 mg Documented By: Admin: 10/13/24 16:27 Dose: 10 mg Documented By: Admin: 10/12/24 16:50 Dose: 10 mg Documented By: Admin: 10/11/24 17:16 Dose: 10 mg Documented By: GLENROY
[2024-10-19] MEDS: LANTUS PER UNIT CHARGE SC SCH (22:20)
[2024-10-20 07:33] VITALS: BP 151/76; TEMP 97.5; O2SAT 98
[2024-10-20 09:12] VITALS: PULSE 85
--- NOTE | 2024-10-20 20:08 | Discharge Summary ---
Discharge Summary Date of Service October 20, 2024 Principal Dx & Hospital Course #1 = Principal Diagnosis (1) C. difficile colitis: -continues to improve on dificid -working with case management to help with affording medications [facility] -housing insecure at this time, working on insulin as well, if needed can assist with medical necessity paperwork -anticipate discharge Sunday after 10 day course of antibiotics (2) DKA (diabetic ketoacidosis): -resolved -continue subq insulin regiment, will work on affordable medication regiment -appreciate diabetic manager costing and education consult (3) Patient's other noncompliance with medication regimen due to financial hardship: -see above (4) Uncontrolled type 2 diabetes mellitus with hyperglycemia: see above (5) ILD (interstitial lung disease): -on room air (6) Hypertension: -continue home med (7) H/O mechanical aortic valve replacement: -checkin daily INR, on warfarin, at target 2-3 Notes For Next Care Provider Patient is 64-year-old male with PMH HTN, HLD, uncontrolled DM II, GERD, mechanical aortic valve replacement on 2022, presented to ER with c/o ongoing diarrhea. Was dx in September with c. diff, however did not pickling grader medication from pharmacy for treatment. On medicine, noted to have c. diff colitis, started on dificid. Course complicated by housing insecurity and inabilty to pay for medications. Kept inpatient for 10 days to finish dificid course. Given 30 day voucher for insulin, helped with communicating with [facility] for [facility], assisted to best of our ability with insurance. On 10/20/2024 patient received 10 day course of dificid and medically stable for discharge home. Sent pharmacy insulin, patient has 30 day voucher for insulin. Medication Changes From Visit -see below Admission HPI Per Admitting Provider Patient is 64-year-old male with PMH HTN, HLD, uncontrolled DM II, GERD, mechanical aortic valve replacement on 2022, presented to ER with c/o ongoing diarrhea. Per inpatient chart review recent [facility] hospitalization on 07/24/24- 07/31/2024 for left heel ulcer possibly infected, Influenza A and concern for CAP, acute hypoxic respiratory failure and was initially treated with Zosyn. 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 ID consulted and discharged on linezolid and Levaquin. Patient was discharged on Plavix, aspirin, warfarin with Lovenox bridge. Discharged from [facility] on 08/11/24. Patient states was having diarrhea with 5-10 episodes loose stools a day. Per review of [facility] ER visit on 09/11/2024 for ongoing diarrhea x 3 weeks at that time. 09/11/2024 stool culture + norovirus, positive C. difficile gene, positive C. difficile toxin and CT abdomen pelvis with diffuse prominent mucosal thickening throughout entire colon, consistent with inflammatory infectious colitis. Patient was given dose of Dificid and discharged with prescription for Dificid. Unfortunately patient reports he has not been taking his medications secondary to not able to afford. He never started the Dificid. He reports continued frequent stools reporting 5-10 stools daily. He states recently have been alternating beef tween liquid and soft stools. Denies abdominal pain. Reports eating seems to make him have more diarrhea. Denies fever/chills, N/V, melena, hematochezia. Patient also reports not taking other prescribed medications regularly secondary to insurance and cost issues. Previously on lisinopril 5 mg daily however has not been taking "for awhile". When seen by PCPs office in August was prescribed Novolin 70/30 33 units with breakfast and dinner however has not been using regular as prescribe as trying to "stretch out his supply" and takes intermittently. 08/09/2024 given prescription for Plavix for 30-day supply. Patient states has been out of this medication. He has been taking aspirin 81 mg daily. States has not been taking his warfarin as prescribed and is trying to "stretch" his prescription supply so has been taking intermittently. Per outpatient anticoagulation note on 10/03/2024. 10/02/2024 INR: 0.9. and at that time had reported was not taking Coumadin as instructed and he was instructed is to take 15 mg every Sunday and 7.5 mg all other days. History C. difficile 05/2016 and was treated with Flagyl. Denies REZA, dizziness, syncope, CP, SOB, palpitations, cough, sore throat, rhinorrhea, extremity weakness, extremity edema, rashes, urinary symptoms. Per review of outpatient pharmacy fill: In July prescribed duloxetine 30 mg daily for 30-day supply. In July was prescribed gabapentin 300 mg 3 times daily for a 1 month supply. When discharged from rehab was prescribed pregabalin 100 mg twice daily for 30- day supply. Discharge Exam Gen: A&O 3 NAD HEENT: NCAT, EOMI, not icteric. External ears normal. No rhinorrhea. Moist mucous membranes. Neck: Supple, full range of motion, no observable masses, No meningeal sign. Lungs: No Respiratory distress. CV: RRR, no edema. Abdomen: Soft, nondistended, No rebound tenderness. MSK: No joint swelling, no redness. Skin: No rashes, petechiae, lesions. Normal color per patient. Poor foot hygiene bilaterally with dimished sensation noted Neuro: Normal Gait, Grossly intact. Psych: Appropriate for situation. Updated Medication List Medication Instructions Recorded Confirmed Type aspirin 81 mg tablet,delayed 81 mg PO DAILY #30 tabs 06/02/24 10/10/24 Rx release pen needle, diabetic 32 gauge x #50 ea 06/02/24 07/24/24 Rx 5/32" (Pen Needle) rosuvastatin 40 mg tablet 40 mg PO QAM #30 tabs 06/02/24 10/10/24 Rx lisinopril 5 mg tablet (Zestril) 5 mg PO QAM #30 tabs 06/06/24 10/10/24 Rx gabapentin 300 mg capsule 300 mg PO TID #90 caps 07/08/24 10/10/24 Rx warfarin 7.5 mg tablet 7.5 mg PO UD 10/10/24 10/10/24 History insulin NPH-regular 70-30 U-100 33 unit (0.33 mL) subcut BID #15 mL 10/20/24 Rx insulin 100 unit/mL subcutaneous pen (Novolin 70-30 FlexPen U-100 Insulin) Hospital Stay Data Diagnostic Imagining Performed 10/10/24 13:26 CT Abd and Pelvis [CT abd pelvis wo con] Stat Pending Results Patient Have Any Pending Studies at Discharge: No Discharge Instructions Given to Patient (Per Discharging Provider) 1. Please pickling grader medications as prescribed. 2. Please do not miss insulin doses. Total Time Total Time Spent Total Time Spent (In Minutes): I spent a total of 35 minutes in direct patient care, including [id number] time with the patient and/or family, reviewing medical records, ordering and reviewing diagnostic tests, and coordinating care with other healthcare providers. This time includes: history taking, physical examination, medical decision making, counseling, ECG interpretation, imaging interpretation, lab interpretation, orders, and education, excluding time spent in the performance of separately billed services.
[2024-10-20] MEDS ORDERED: LANTUS PER UNIT CHARGE SC SCH (21:00)
== END 2024-10-20 11:10 | disposition home or self-care (01) | DRG 371 ==
LOC: ED 13:02 → SUATTDRO 16:11 → 2S 16:11 → INTOOBSV 16:11 → 2S 19:58 → 3W 10-12 14:30

== ENCOUNTER 2024-11-14 10:40 | Observation (INO) ==
[2024-11-14 11:17] LABS: Basophils # (auto) 0.02 K/uL (0.00-0.20); Basophils % (auto) 0.3 %; Eosinophils # (auto) 0.11 K/uL (0.00-0.50); Eosinophils % (auto) 1.7 %; Hematocrit (blood only) 44.5 % (42.0-52.0); Immature Granulocytes # (auto) 0.02 K/uL (0.01-0.20); Immature Granulocytes % (auto) 0.3 %; Lymphocytes # (auto) 1.46 K/uL (1.20-3.40); Lymphocytes % (auto) 22.3 %; Mean Corpuscular Hemoglobin 30.7 pg (25.0-34.0); Mean Corpuscular Hgb Conc 33.7 g/dL (32.0-36.0); Mean Platelet Volume 10.6 fL (9.4-12.4); Monocytes # (auto) 0.42 K/uL (0.11-0.59); Monocytes % (auto) 6.4 %; Neutrophils # (auto) 4.52 K/uL (1.40-6.50); Platelet Count 209 K/uL (130-400); RDW Coefficient of Variation 15.9 % (11.5-14.5); RDW Standard Deviation 53.1 fL (36.4-46.3); Red Blood Count 4.89 M/uL (4.70-6.10); White Blood Count 6.55 K/ul (4.8-10.8)
[2024-11-14 11:40] LABS: Albumin Globulin Ratio 1.1 (0.9-2); Albumin Level 4.3 gm/dl (3.4-5.0); BUN Creatinine Ratio 9.3 (10-20); Bilirubin,Total 0.6 mg/dl (0.2-1.0); Calcium 9.5 mg/dl (8.6-10.3); Creatinine Clr Calc Pharmacy 60.8 ml/min; Potassium 5.7 mmol/L (3.5-5.1); Total Protein 8.3 gm/dl (6.0-8.3)
[2024-11-14] MEDS: SODIUM CHLORIDE 0.9% 1,000 ML IV ONE (11:45)
[2024-11-14 11:48] LABS: Base Excess VBG -1.1 mEq/L; HCO3 VBG 24 mmol/L; Oxygen Saturation VBG 62.1 %; PCO2 VBG 42 mmHg (38-50); PO2 VBG 35 mmHg; pH VBG 7.37 (7.36-7.41)
[2024-11-14 12:04] LABS: Magnesium 1.7 mg/dl (1.7-2.4)
--- NOTE | 2024-11-14 12:20 | Emergency Department Note ---
Impression & Plan Acute hyperglycemia, Acute hyperkalemia, Acute dehydration ED Provider Note NAME: АЛЕКСАНДР ALLEN AGE: 64 SEX: M : 1960 ARRIVES VIA: Walk-In INFORMANT: [Patient] ED PROVIDER(S): [Reed March MD] CHIEF COMPLAINT: Hyperglycemia HISTORY OF PRESENT ILLNESS: The patient is a 64-year-old male who states that for 5 days, he has not been able to give himself any insulin. He states that his power was shut off and his insulin is now ruined and cannot be used. His sugar before arrival was over 400. He has been drinking a lot of liquid and has been urinating frequently. There has been no cough or congestion or respiratory complaints. No vomiting or diarrhea. No fever. PMHx/PSHx/Social Hx: See Below PHYSICAL EXAM: GENERAL: Patient is in no acute distress. HEENT: No acute trauma, normocephalic atraumatic, mucous membranes moist, no nasal congestion. NECK: No stridor, no adenopathy, no meningismus, trachea is midline. LUNGS: Clear to auscultation bilaterally, no wheeze, no rhonchi, breath sounds equal. HEART: Without murmurs gallops or rubs, regular rate and rhythm. ABDOMEN: Soft, nontender, no peritonitis. EXTREMITIES: No cyanosis, full range of motion of all the joints without pain or difficulty. NEUROLOGIC: Oriented x 3, no acute motor or sensory deficits, no focal weakness. SKIN: No jaundice, no diaphoresis. DIFFERENTIAL DIAGNOSIS: Hyperglycemia, DKA, electrolyte imbalance, dehydration, UTI, among others. EMERGENCY DEPARTMENT PROCEDURES: MEDICAL DECISION MAKING: There is no leukocytosis or concerning anemia. There is a normal platelet count. No bandemia. VBG does not show acidosis. Renal panel testing shows a somewhat high potassium at 5.7. Sugar was quite high at 475. No concerning liver enzyme elevation. Urinalysis showed glucose and ketones, no infection. On exam, the patient appeared somewhat dehydrated. There was no fever. The patient did not appear short of breath or toxic. Patient was given IV saline, 1 L. Patient was given 10 units of IV insulin. Patient is hyperglycemic and mildly hyperkalemic. He is somewhat dehydrated. This is all a result of no insulin for 5 days. I did speak with case management, the patient meets criteria for hospitalization as he has no way of caring for himself currently. He has no power in the house to preserve his insulin. I did speak with the patient and case management, the on-call hospitalist was consulted. Prior/Outside records/notes reviewed: None Chronic Medical/Social conditions affecting care: History of diabetes. Care/Management discussed with: Case management, the on-call hospitalist. Level of care consideration(s): After review of the information above and other included data: --I believe the patient requires escalation of care to admission DISPOSITION: Admission Past Med/Surg History Problem List (Updated 11/14/24 @ 13:29 by Reed March MD) Acute dehydration (Acute) Acute hyperkalemia (Acute) Acute hyperglycemia (Acute) Anticoagulated on warfarin Patient's other noncompliance with medication regimen due to financial hardship C. 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 occlusive disease Hypocalcemia Acute hypoxic respiratory failure Ischemic rest pain of lower extremity Unstageable pressure ulcer of heel Acute hyperglycemia (Acute) Elevated troponin (Acute) Left foot pain (Acute) Elevated lactic acid level (Acute) Tachycardia (Acute) Influenza A (Acute) Pneumonia (Acute) Sepsis (Acute) Chronic anticoagulation Spinal stenosis, lumbar region with neurogenic claudication Ambulatory dysfunction (Acute) Hip pain, left (Acute) Lumbar radiculitis Medical History GERD (gastroesophageal reflux disease) ILD (interstitial lung disease) H/O TIA (transient ischemic attack) and stroke Stroke-like episode - History of TIA vs vertigo per cardio records 11/2021 (on Plavix) - 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 Repeat head CTA 08/2022 was unremarkable and no left ICA aneurysm identified Hypertension Hyperlipidemia PFO (patent foramen ovale) Small per 11/2021 [facility] imaging per cardio records Barretts esophagus Per records Gallbladder sludge reason for upcoming procedure Arthritis, gouty Hx of kidney disease PER PATIENT, ACUTE KIDNEY DISEASE 05/2022>WNL CURRENTLY GERD (gastroesophageal reflux disease) "silent/mild" Diabetes mellitus, type 2 Hx of pancreatitis HOSPITALIZED 05/2022>DKA and acute pancreatitis Aortic valve stenosis Severe per 05/2022 ECHO (PK 0.78-1.0cm2; AV mean PG 23.2mmHg; AV max velocity 3.684m/s) Chronic obstructive pulmonary disease MILD>NO INHALERS PER PATIENT Surgical History H/O mechanical aortic valve replacement Nausea and vomiting after administration of anesthetic agent H/O arthroscopic knee surgery + GANGLION CYST REMOVED>RT History of esophagogastroduodenoscopy (EGD) History of colonoscopy History of tooth extraction History of tonsillectomy and adenoidectomy History of cataract surgery RT/LEFT History of foot surgery RT History of carpal tunnel surgery LEFT Family History Other Diabetes Heart disease No family history of adverse response to anesthesia Social History Smoking Status: Never smoker Tobacco Type: Cigarettes Cigarettes Per Day: 4 CIG DAILY>ADVISED; Second Hand Exposure: No; Do You Dip or Chew Tobacco: No; Hx Alcohol Use: No Hx Substance Use: No Preferred Language: Chinese Communication Ability: Effective 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 Beliefs That Will Affect Care: None marital status: Unknown Current Living Situation: Alone Current Living Situation Comment: son Feels Safe at Home: Yes Assistive Devices: Walker Allergies Allergies Allergy/AdvReac Type Severity Reaction Status Date / Time erythromycin base AdvReac Intermediate Abdominal Verified 10/10/24 15:06 Pain Home Meds Home Medications Medication Instructions Recorded Confirmed warfarin 7.5 mg tablet 7.5 mg PO UD 10/10/24 11/14/24 insulin NPH-regular 70-30 U-100 22 - 33 unit subcut BID 11/14/24 11/14/24 insulin 100 unit/mL subcutaneous pen (Novolin 70-30 FlexPen U-100 Insulin) lisinopril 5 mg tablet (Zestril) 5 mg PO UD 11/14/24 11/14/24 multivitamin 1 tab PO DAILY 11/14/24 11/14/24 Previous Rx's Medication Instructions Recorded aspirin 81 mg tablet,delayed 81 mg PO DAILY #30 tabs 06/02/24 release pen needle, diabetic 32 gauge x #50 ea 06/02/24" (Pen Needle) rosuvastatin 40 mg tablet 40 mg PO QAM #30 tabs 06/02/24 gabapentin 300 mg capsule 300 mg PO TID #90 caps 07/08/24 Results & Data (ED) Vital Signs Vital Signs - 24 hr 11/14/24 10:48 11/14/24 11:21 11/14/24 13:00 Temperature 36.6 C Temperature Source Temporal Artery Scan Pulse Rate 104 H Pulse Rate [Apical] 82 84 Pulse Rhythm [Apical] Regular Pulse Strength [Apical] Normal Respiratory Rate 18 20 20 Respiratory Effort / Characteristics Non-Labored Spontaneous Non-Labored Spontaneous Non-Labored Spontaneous Respiratory Depth Normal Normal Normal Respiratory Pattern Regular Regular Regular Blood Pressure 150/77 H Blood Pressure [Right Arm] 142/79 H 158/71 H Blood Pressure Mean 101 Blood Pressure Mean [Right Arm] 100 100 Blood Pressure Position Sitting Blood Pressure Position [Right Arm] Lying Pulse Oximetry 97 99 98 Oxygen Delivery Method Room Air Room Air Room Air Sepsis Recent Fever Within 48 Hours No Sepsis New/Unexplained Change in Mental Status N/A Sepsis Action Taken by Nursing No Action Required 11/14/24 13:22 Temperature Temperature Source Pulse Rate 76 Pulse Rate [Apical] Pulse Rhythm [Apical] Pulse Strength [Apical] Respiratory Rate Respiratory Effort / Characteristics Respiratory Depth Respiratory Pattern Blood Pressure Blood Pressure [Right Arm] Blood Pressure Mean Blood Pressure Mean [Right Arm] Blood Pressure Position Blood Pressure Position [Right Arm] Pulse Oximetry Oxygen Delivery Method Sepsis Recent Fever Within 48 Hours Sepsis New/Unexplained Change in Mental Status Sepsis Action Taken by Retirement Medications Current Medication List: was personally reviewed by me Laboratory Data Attestation: I reviewed the patient's lab results. 11/14/24 10:04 11/14/24 10:04 Lab Results 11/14/24 11/14/24 11/14/24 Range/Units 10:04 10:56 11:43 WBC 6.55 (4.8-10.8) K/ul RBC 4.89 (4.70-6.10) M/uL Hgb 15.0 (14.0-18.0) g/dl Hct 44.5 (42.0-52.0) % MCV 91.0 (80.0-100.0) fL MCH 30.7 (25.0-34.0) pg MCHC 33.7 (32.0-36.0) g/dL RDW Std Deviation 53.1 H (36.4-46.3) fL RDW Coeff of Mariah 15.9 H (11.5-14.5) % Plt Count 209 (130-400) K/uL MPV 10.6 (9.4-12.4) fL Immature Gran % (Auto) 0.3 % Neut % (Auto) 69.0 % Lymph % (Auto) 22.3 % [place] % (Auto) 6.4 % Eos % (Auto) 1.7 % Baso % (Auto) 0.3 % Neut # (Auto) 4.52 (1.40-6.50) K/uL Lymph # (Auto) 1.46 (1.20-3.40) K/uL [place] # (Auto) 0.42 (0.11-0.59) K/uL Eos # (Auto) 0.11 (0.00-0.50) K/uL Baso # (Auto) 0.02 (0.00-0.20) K/uL Immature Gran # (Auto) 0.02 (0.01-0.20) K/uL VBG pH 7.37 (7.36-7.41) VBG pCO2 42 (38-50) mmHg VBG pO2 35 mmHg VBG HCO3 24 mmol/L VBG O2 Saturation 62.1 % VBG Base Excess -1.1 mEq/L Sodium 135 L (136-145) mmol/L Potassium 5.7 H (3.5-5.1) mmol/L Chloride 101 (98-107) mmol/L Carbon Dioxide 29 (21-32) mmol/L Anion Gap 5 (3-11) BUN 11 (6-23) mg/dl Creatinine 1.18 (0.6-1.4) mg/dl Est Cr Clr Drug Dosing 60.8 ml/min eGFR 69.77 BUN/Creatinine Ratio 9.3 L (10-20) Glucose 475 H* (70-99(Fasting)) mg/dl POC Glucose 420 H* (70-99) mg/dl Estimat Average Glucose 235 mg/dl Hemoglobin A1c 9.8 H (4.5-5.6) % Calcium 9.5 (8.6-10.3) mg/dl Magnesium 1.7 (1.7-2.4) mg/dl Total Bilirubin 0.6 (0.2-1.0) mg/dl AST 13 (13-39) U/L ALT 14 (7-52) U/L Alkaline Phosphatase 130 H (34-104) U/L Total Protein 8.3 (6.0-8.3) gm/dl Albumin 4.3 (3.4-5.0) gm/dl Globulin 4.0 (2.5-4.0) gm/dl Albumin/Globulin Ratio 1.1 (0.9-2) Urine Color Urine Appearance (Clear) Urine pH (4.5-7.5) Ur Specific [place] (1.000-1.030) Urine Protein (Negative) Urine Glucose (UA) (Negative) Urine Ketones (Negative) Urine Blood (Negative) Urine Nitrite (Negative) Urine Bilirubin (Negative) Urine Urobilinogen (Negative) Ur Leukocyte Esterase (Negative) Urine WBC (Auto) (0-5) /hpf Urine RBC (Auto) (0-2) /hpf U Hyaline Cast (Auto) (0-2) /lpf U Epithel Cells (Auto) (0-2) /hpf Urine Bacteria (Auto) (None Seen) 11/14/24 11/14/24 Range/Units 12:12 12:19 WBC (4.8-10.8) K/ul RBC (4.70-6.10) M/uL Hgb (14.0-18.0) g/dl Hct (42.0-52.0) % MCV (80.0-100.0) fL MCH (25.0-34.0) pg MCHC (32.0-36.0) g/dL RDW Std Deviation (36.4-46.3) fL RDW Coeff of Mariah (11.5-14.5) % Plt Count (130-400) K/uL MPV (9.4-12.4) fL Immature Gran % (Auto) % Neut % (Auto) % Lymph % (Auto) % [place] % (Auto) % Eos % (Auto) % Baso % (Auto) % Neut # (Auto) (1.40-6.50) K/uL Lymph # (Auto) (1.20-3.40) K/uL [place] # (Auto) (0.11-0.59) K/uL Eos # (Auto) (0.00-0.50) K/uL Baso # (Auto) (0.00-0.20) K/uL Immature Gran # (Auto) (0.01-0.20) K/uL VBG pH (7.36-7.41) VBG pCO2 (38-50) mmHg VBG pO2 mmHg VBG HCO3 mmol/L VBG O2 Saturation % VBG Base Excess mEq/L Sodium (136-145) mmol/L Potassium (3.5-5.1) mmol/L Chloride (98-107) mmol/L Carbon Dioxide (21-32) mmol/L Anion Gap (3-11) BUN (6-23) mg/dl Creatinine (0.6-1.4) mg/dl Est Cr Clr Drug Dosing ml/min eGFR BUN/Creatinine Ratio (10-20) Glucose (70-99(Fasting)) mg/dl POC Glucose 418 H* (70-99) mg/dl Estimat Average Glucose mg/dl Hemoglobin A1c (4.5-5.6) % Calcium (8.6-10.3) mg/dl Magnesium (1.7-2.4) mg/dl Total Bilirubin (0.2-1.0) mg/dl AST (13-39) U/L ALT (7-52) U/L Alkaline Phosphatase (34-104) U/L Total Protein (6.0-8.3) gm/dl Albumin (3.4-5.0) gm/dl Globulin (2.5-4.0) gm/dl Albumin/Globulin Ratio (0.9-2) Urine Color Yellow Urine Appearance Clear (Clear) Urine pH 6.5 (4.5-7.5) Ur Specific [place] 1.021 (1.000-1.030) Urine Protein 3+ H (Negative) Urine Glucose (UA) 3+ H (Negative) Urine Ketones Trace H (Negative) Urine Blood Negative (Negative) Urine Nitrite Negative (Negative) Urine Bilirubin Negative (Negative) Urine Urobilinogen Negative (Negative) Ur Leukocyte Esterase Negative (Negative) Urine WBC (Auto) 0-5 (0-5) /hpf Urine RBC (Auto) 0-2 (0-2) /hpf U Hyaline Cast (Auto) 3-5 H (0-2) /lpf U Epithel Cells (Auto) 0-2 (0-2) /hpf Urine Bacteria (Auto) None Seen (None Seen) Administered Medications Discontinued Medications Sodium Chloride (Nss) 1,000 mls @ 999 mls/hr IV .[id number] ONE Stop: 11/14/24 12:34 Last Infusion: 11/14/24 12:48 Dose: Infused Documented By: Admin: 11/14/24 11:45 Dose: 999 mls/hr Documented By: TD Insulin Human Regular (Novolin-R Insulin Per Unit Charge) 10 units IV NOW STA Stop: 11/14/24 12:15 Last Admin: 11/14/24 12:22 Dose: 10 units Documented By: TD Co-signed By: TARAS Discharge Plan Visit Data Chief Complaint: Hyperglycemia Stated Complaint: HYPERGLYCEMIA ED Provider: Reed March Discharge Problem: Acute hyperglycemia, Acute hyperkalemia, Acute dehydration Patient Disposition: Home - Self-Care Condition: Fair Forms Stand Alone Forms: [facility], Important Visit Information Prescriptions Prescriptions: No Action gabapentin 300 mg capsule 300 mg PO TID Qty: 90 2RF Rx Instructions: LAST FILLED 07/14/24 FOR 90 PILLS/30 DAYS. PER PT "RAN OUT ABOUT 2 WEEKS AGO, UNABLE TO PAY FOR MEDS". warfarin 7.5 mg tablet 7.5 mg PO UD Rx Instructions: 15mg on Sunday, 7.5mg on sun, mon, wed, th, fri, sat (DME) pen needle, diabetic [Pen Needle] 32 gauge x 5/32" needle See Rx Instructions .Route Qty: 50 3RF Rx Instructions: Please check blood sugar before meals and at bedtime aspirin 81 mg Tablet,Delayed Release (Dr/Ec) 81 mg PO DAILY Qty: 30 0RF rosuvastatin 40 mg tablet 40 mg PO QAM Qty: 30 0RF Novolin 70-30 FlexPen U-100 100 unit/mL (70-30) insulin pen 22 - 33 unit subcut BID Rx Instructions: 33 units in AM, 22 units in pm. Per pt, his power is off and he lost his insulin pens. multivitamin [Multi-Vitamin] Tablet 1 tab PO DAILY lisinopril [Zestril] 5 mg tablet 5 mg PO UD Rx Instructions: 5 mg po qam. per pt, he isnt sure if he still takes this. He doesnt have med list with him Referrals Referrals: Anabel Ortiz MD [Primary Care Provider] -
[2024-11-14] MEDS: NovoLIN-R INSULIN PER UNIT CHARGE IV STA (12:22)
[2024-11-14 12:25] LABS: Estimated Average Glucose 235 mg/dl; Hemoglobin A1C 9.8 % (4.5-5.6)
[2024-11-14 12:33] LABS: Appearance Urine Clear (Clear); Bacteria Urine Automated None Seen (None Seen); Bilirubin Urine Negative (Negative); Blood Urine Negative (Negative); Color Urine Yellow; Epithelial Cell Urine Auto 0-2 /hpf (0-2); Glucose Urine UA 3+ (Negative); Ketones Urine Trace (Negative); Leukocyte Esterase Urine Negative (Negative); Nitrite Urine Negative (Negative); Protein Urine 3+ (Negative); RBC Urine Automated 0-2 /hpf (0-2); Specific Gravity Urine 1.021 (1.000-1.030); Urobilinogen Urine Negative (Negative); WBC Urine Automated 0-5 /hpf (0-5); pH Urine 6.5 (4.5-7.5)
--- OUTSIDE RECORDS SUMMARY | 2024-11-14 13:22 | External Medical Summary | Summary of Care ---
Author Name Unknown Organization [facility] Address [address] [place] [address] Phone [phone] Care Team Providers Care Candle Molder Hand Name Role Phone Anabel Ortiz MD Primary Care Provider Reason for Visit * Reason Onset Date Comments Advice 10/23/2024 Encounter Details Date Type Department Care Team (Late st Contact Info) Description 10/23/2024 Telephone Family Practice [facility] [address] [place] [id number] Anabel Ortiz MD [address] [place] [address] Advice Allergies Active Allergy Reactions Criticality Noted Date Comments Erythromycin Abdominal pain Medium 07/06/1997 Stomach pain documented as of this encounter (statuses as of 10/30/2024) Medications MULTIVITAMINS PO TABS Take 1 Tablet by mouth every morning. Active Calcium Carbonate Antacid 500 MG Oral Tablet Chewable Take 1 Tablet by mouth as needed. As needed 06/07/2015 Active ONETOUCH DELICA LANCETS 33G MISC TEST SUGAR DAILY 100 Each 5 01/21/2018 Active ONETOUCH ULTRA BLUE STRPIndications: Type 2 diabetes mellitus with hemoglobin A1c goal of less than 7.0% (HCC) USE UP TO 4 TIMES A DAY DIRECTED. 100 Strip 5 11/08/2018 Active Acetaminophen 500 MG Oral Tablet (Tylenol) Take 2 Tablets by mouth every 4 hours as needed. 08/01/2021 Active Dicyclomine HCl 10 MG Oral Capsule (Bentyl) One tab up to 3x/day if needed for lower abdomen pain 90 Capsule 2 08/29/2022 Active Omeprazole 20 MG Oral Capsule Delayed Release (PriLOSEC)Indica tions:Gastroesop hageal reflux disease without esophagitis Take 1 Capsule by mouth in the morning. 1 hour before the first meal of the day.. 90 Capsule 1 10/02/2023 Active Rosuvastatin Calcium 40 MG Oral Tablet (Crestor)Indicat ions:Dyslipidemi a, goal LDL below 70 Take 1 Tablet by mouth in the morning. 90 Tablet 10/02/2023 Active Aspirin 81 MG Oral Tablet ChewableIndicati ons:History of mechanical aortic valve replacement Chew 1 Tablet by mouth in the morning with food 72 Tablet 4 03/17/2024 Active Lisinopril 5 MG Oral Tablet (Prinivil) Take 1 Tablet by mouth in the morning. 06/06/2024 Active Warfarin Sodium 7.5 MG Oral Tablet (Coumadin)Indica tions:Anticoagul ation management encounter,Histor y of mechanical aortic valve replacement,S/P aortic valve replacement,S/P AVR (aortic valve replacement) Take 1-2 Tablets by mouth in the morning. Per [facility] instructions . 60 Tablet 5 10/03/2024 Active documented as of this encounter (statuses as of 10/30/2024) Active Problems Problem Noted Date Diagnosed Date Diabetic peripheral neuropathy 08/13/2024 Aortoiliac occlusive disease 08/13/2024 Overview (08/13/2024): Bilateral stents, 07/2024 Ambulatory dysfunction 08/13/2024 Diabetic ulcer of left foot 08/13/2024 Spinal stenosis, lumbar region with neurogenic c laudication 08/13/2024 Hip pain, left 05/28/2024 History of mechanical aortic valve replacement 0 03/17/2024 Type 2 diabetes mellitus wit h diabetic [...] as of this encounter (statuses as of 10/30/2024) Resolved Problems Problem Noted Date Diagnosed Date Resolved Date Food insecurity 11/19/2023 10/24/2024 Overview: Per [facility] Protocol Valvular insufficiency 04/23/202308/13 Valvular heart disease 04/23/202308/13 [...] as of this encounter (statuses as of 10/30/2024) Immunizations Name Administration Dates Next Due COVID-19 mRNA, LNP-s, No Pre serve, 2-Dose Series (Moderna) 11/25/2020,10/28/2020 Diptheria/Tetanus (Adult) 08/06/1992 Hepatitis B, 20+ yrs 05/19/2015,11/19/2014,05/06 PPD 05/06/2014,05/18/2009 Pneumococcal Conjugate Vacci ne, 20-valent ([id number]) 01/19/2022 Pneumococcal Polysaccharide PPV23 (Pneumovax) 08/22/2013 Seasonal [...] 08/02/2006,2003 TDAP (age 10 and older)(Boostrix) 03/07/2013 TDAP, [...] Industry Job Start Date Job End Date [employer] work Not on file Not on file [...] Telephone Encounter - Tom Randall MD - 10/30/2024 4:33 PM EDT Form completed and returned to bin * Telephone Encounter - Jailene Rider LPN - 10/28/2024 11:16 AM EDT On your desk. * Telephone Encounter - Miladys Ruvalcaba LPN - 10/27/2024 12:50 PM EDT Has anyone seen the form come in * Telephone Encounter - Tom Randall MD - 10/24/2024 1:26 PM EDT I saw him today and told him I would do the form. * Telephone Encounter - Jailene Rider LPN - 10/24/2024 1:11 PM EDT Has insulin that is kept in refrigerator and has serious medical condition. I told pt that per [facility] policy, we are not to be doing these forms anymore. He will call them and ask them to send theform, but it is up the provider whether it is filled out, so power is turned back on, and he does not lose his insulin stored in refrigerator. Sending to Prakash or Maeve to advise if they can do this form. * Telephone Encounter - Otf Cleveland OSA - 10/23/2024 3:28 PM EDT Patient calling in to check on the status of previous message. Patient Called within 48 hour timeframe. Reminded patient of 48 hour turn-around time. * Telephone Encounter - Sherwin Fitzgerald OSA - 10/23/2024 2:23 PM EDT Patient called to say that they shut off his electricity and he needs it to be turned back on [place] as he has meds that need to be kept refrigerated. He needs PCP to write a letter of certification stating that he needs his electricity. Letter needs to be faxed over to [facility] . Please follow up. Thank you. documented in this encounter Plan of Treatment Upcoming Encounters Date Type Department Care Team (Late st Contact Info) Description 11/06/2024 7:05 AM EDT Laboratory Lab Mobile Phlebotomy [address] [place] [address] [facility] Mobile Home Draw [address] [place] [address] [place] [address] 11/07/2024 6:00 AM EDT Anticoagulation Centralized Clinical Pharmacy Services, Sanket Watkins [address] [place] [address] [place] [address] [facility], [address] [place] [address] 11/13/2024 3:20 PM EDT Office Visit Pharmacy, [facility] [address] [place] [address] [facility] [address] [place] [address] 01/14/2025 12:20 PM EDT Office Visit [facility] [address] [place] [address] Anabel Ortiz MD [address] [place] [address] 02/19/2025 8:00 AM EDT Office Visit [facility] [address] [place] [address] Anabel Ortiz MD [address] [place] [address] Health Maintenance Due Date Last Done Comments Alpha-1 Antitrypsin 01/02/1980 Cologuard 2007 Fecal Occult Blood Test 2007 Sigmoidoscopy 2007 Albumin/Creatinine Ratio 10/17/2024 024, 12/12/2021, 12/14/2016, Additional history exists HbA1c 11/05/2024 05/07/2024, 10/07, 04/20/2023, Additional history exists Depression Screening 05/07/2025 05/07/2024 GFR 08/08/2025 08/08/2024, 07/10, 10/18/2023, Additional history exists Diabetic Eye Exam 10/24/2025 10/24/2024, , 04/11/2019, Additional history exists Diabetic Foot Exam 10/24/2025 10/24/2024, 0 10/18/2023, 01/19/2022, Additional history exists O2 ASSESSMENT COMPLETED IN PAST YEAR FOR COPD 10/24/2025 10/24/2024 Colonoscopy 06/12/2026 06/12/2016, 06/12/2016 Colorectal Cancer Screening [...] encounter Medical Devices Implanted Type Area Manager Erp Device Identifier Shelf Expiration Date Model / Serial / Lot Cath Thermodilution 6fr - [id number] Implanted:Qty: 1 on 04/20/2023 at [facility] [employer] [id number] 11/13/2024 [id number] / / [id number] Valve Aortic Mech 21mm - [id number] - [id number] Implanted:Qty: 1 on 04/23/2023 by Zbigniew Linder MD at OR [facility] N/A: Heart [employer] [id number] 09/04/2028 ONXACE-2 [id number] / [id number] Suture Steel 6 B&S19 M654g - [id number] Implanted:Qty: 8 on 04/23/2023 by Zbigniew Linder MD at OR [facility] N/A: Sternum JNJ : [employer] 12/07/2027 [...] and were consensually agreed upon. Care Teams Candle Molder Hand Relationship Specialty Start Date End Date Anabel Ortiz MD [address] [place] [address] PCP - General Internal Medicine 07/25/24 documented as of this encounter
--- OUTSIDE RECORDS SUMMARY | 2024-11-14 13:22 | External Medical Summary ---
Author Name Unknown Address Unknown Organization [id number]:LABORATORY [facility] - [address] [place] [address] Laboratory Report Ordering Provider Test Date Status PETRA GOMES 11/06/2024 10:15:00 Final Warfarin Therapy
INR: 2 .0-3.0 conventional anticoagulation
INR: 2.5- 3.5 high intensity anticoagulation Observation Date Value Abnormality Reference (Units ) Status PT 11/06/2024 10:15:00 13.4 11.6-15.2 (seconds) Final INR 11/06/2024 10:15:00 1.0 0.8-1.2 Final Performing Location LABORATORY [facility] - [address] [place] [address]
--- OUTSIDE RECORDS SUMMARY | 2024-11-14 13:22 | External Medical Summary | Summary of Care ---
Author Name Unknown Organization [facility] Address [address] [facility] [place] [address] Phone [phone] Care Team Providers Care Launchman Name Role Phone Anabel Ortiz MD Primary Care Provider Reason for Visit * Reason Comments Dosage Adjustment Via Phone (anticoag Cl inic) Encounter Details Date Type Department Care Team (Late st Contact Info) Description 11/07/2024 6:00 AM EDT Anticoagulation Centralized Clinical Pharmacy Services, Sanket Watkins [address] [place] [address] [place] [address] [place] [address] History of mechanical aortic valve replacement*; S/P aortic valve replacement Allergies Active Allergy Reactions Criticality Noted Date Comments Erythromycin Abdominal pain Medium 07/06/1997 Stomach pain documented as of this encounter (statuses as of 11/07/2024) Medications MULTIVITAMINS PO TABS Take 1 Tablet by mouth every morning. Active Calcium Carbonate Antacid 500 MG Oral Tablet Chewable Take 1 Tablet by mouth as needed. As needed 5 Active ONETOUCH DELICA LANCETS 33G MISC TEST SUGAR DAILY 100 Each 5 8 Active ONETOUCH ULTRA BLUE STRPIndications:T ype 2 diabetes mellitus with hemoglobin A1c goal of less than 7.0% ([facility]) USE UP TO 4 TIMES A DAY DIRECTED. 100 Strip 5 9 Active Acetaminophen 500 MG Oral Tablet (Tylenol) [...] 4 Active Aspirin 81 MG Oral Tablet ChewableIndicatio ns:History of mechanical aortic valve replacement Chew 1 Tablet by mouth in the morning with food 72 Tablet 4 4 Active Lisinopril 5 MG Oral Tablet (Prinivil) Take 1 Tablet by mouth in the morning. 4 Active Warfarin Sodium 7.5 MG Oral Tablet (Coumadin)Indicat ions:Anticoagulat ion management encounter,History of mechanical aortic valve replacement,S/P aortic valve replacement,S/P AVR (aortic valve replacement) Take 1-2 Tablets by mouth in the morning. Per [facility] instructions. 60 Tablet 5 5 Active Clopidogrel Bisulfate 75 MG Oral Tablet (pLAVix) Take 1 Tablet by mouth in the morning. 5 Active Cyclobenzaprine HCl 10 MG Oral Tablet (Flexeril) Take 0.5 Tablets by mouth in the morning and 0.5 Tablets before bedtime. 5 Active Metoprolol Succinate ER 50 MG Oral Tablet Extended Release 24 Hour (toPROL XL) Take 0.5 Tablets by mouth in the morning. 5 Active Insulin NPH Isophane & Regular (70-30) 100 UNIT/ML Subcutaneous Suspension (NovoLIN 70/30) Inject under the skin 2 times a day. 33 units before breakfast and 22 units before supper. 33 mL 5 5 Active documented as of this encounter (statuses as of 11/07/2024) Active Problems Problem Noted Date Diagnosed Date [...] as of this encounter (statuses as of 11/07/2024) Resolved Problems Problem Noted Date Diagnosed Date [...] as of this encounter (statuses as of 11/07/2024) Immunizations Name Administration Dates Next Due COVID-19 mRNA, LNP-s, No Pre serve, 2-Dose Series (Moderna) 11/25/2020,10/28/2020 Hepatitis B, 20+ yrs 05/19/2015,11/19/2014,05/06 PPD 05/06/2014,05/18/2009 Pneumococcal Conjugate Vacci ne, 20-valent ([id number]) 01/19/2022 Pneumococcal Polysaccharide PPV23 (Pneumovax) 08/22/2013 Seasonal [...] Industry Job Start Date Job End Date [employer] work Not on file Not on file [...] 04/20/2023 2:13 AM Jil Ulrich LPN * Do you have serious difficulty walking or climbing stairs? (5 years old or older) Answer Date of Assessment Author No 04/20/2023 3:19 PM EDT Monster Chandelr RN * Do you have difficulty dressing [...] documented in this encounter Progress Notes * Mona Álvarez CPhT - 11/07/2024 8:59 AM EDT Contacts Contact Date/Time Type Contact Phone/Fax 11/07/2024 04:01 AM EDT Email SMS () [phone] Patient not accepting updates 11/07/2024 08:55 AM EDT Phone (Outgoing) Derek Tristan (Self) [phone] (M) Left Message Subjective Patient Findings Negatives: Signs/symptoms of bleeding, Change in health, Change in activity, Upcoming invasive procedure, Missed doses, Extra doses, Change in medications, Change in diet/appetite, Bruising Advised patient to contact Anticoagulation Clinic if any unusual bruising or bleeding, recent illness, changes in medication, or questions/concerns. PT/INR results, Coumadin dose instructions, and next PT/INR date communicated as noted by Pharmacist: Yes Mona Álvarez CPhT 11/07/2024, 8:59 AM * Jailene Campbell RPh - 11/07/2024 8:33 AM EDT Coumadin Clinic (region specific) Objective Current Warfarin Dose As of 11/07/2024 Warfarin maintenance plan: 15 mg (7.5 mg x 2) every Sat; 7.5 mg (7.5 mg x 1) all other days INR Result As of 11/07/2024 INR goal: 1.5-2.0 INR used for dosin.0 (11/06/2024) Assessment & Plan Warfarin Plan As of 11/07/2024 Full warfarin instructions: 11/07: 15 mg; Otherwise 15 mg every Sat; 7.5 mg all other days Next INR check: 11/20/2024 Repeat PT/INR in 2 week(s) Weekly dose: not changed Additional Dosing Information: Tech to contact patient with dose instructions as noted. Jailene Campbell RPh 11/07/2024, 8:37 AM documented in this encounter Plan of Treatment Upcoming Encounters Date Type Department Care Team (Late st Contact Info) Description 11/13/2024 3:20 PM EDT Office Visit Pharmacy, [facility] [address] [address] [facility] [address] [place] [address] 11/21/2024 6:00 AM EDT Anticoagulation Centralized Clinical Pharmacy Services, Sanketeliseo Watkins [address] [place] [address] [place] [address] [facility], [address] [place] [address] 01/14/2025 12:20 PM EDT Office Visit Family [facility] [address] [place] [address] Anabel Ortiz MD [address] [place] [address] 02/19/2025 8:00 AM EDT Office Visit [facility] [address] [place] [address] Anabel Ortiz MD [address] [place] [address] Health Maintenance Due Date Last Done Comments Alpha-1 Antitrypsin 01/02/1980 Cologuard 2007 Fecal Occult Blood Test 2007 Sigmoidoscopy 2007 Albumin/Creatinine Ratio 10/17/2024 024, 12/12/2021, 12/14/2016, Additional history exists Depression Screening 05/07/2025 05/07/2024 HbA1c 05/09/2025 11/06/2024, 04/10, 10/18/2023, Additional history exists GFR 08/08/2025 08/08/2024, 07/10, 10/18/2023, Additional history [...] this encounter Medical Devices Implanted Type Area Ampoule Examiner Device Identifier Shelf Expiration Date Model / Serial / Lot Cath Thermodilution 6fr - [id number] Implanted:Qty: 1 on 04/20/2023 at [facility] [employer] [id number] 11/13/2024 [id number] / / [id number] Valve Aortic Mech 21mm - [id number] - [id number] Implanted:Qty: 1 on 04/23/2023 by Zbigniew Linder MD at OR [facility] N/A: Heart [employer] [id number] 09/04/2028 ONXACE-2 [id number] / [id number] Suture Steel 6 B&S19 M654g - [id number] Implanted:Qty: 8 on 04/23/2023 by Zbigniew Linder MD at OR [facility] N/A: Sternum JNJ : [employer] [...] and were consensually agreed upon. Care Teams Launchman Relationship Specialty Start Date End Date Anabel Ortiz MD [address] [place] [address] PCP - General Internal Medicine 07/25/24 documented as of this encounter
--- OUTSIDE RECORDS SUMMARY | 2024-11-14 13:22 | External Medical Summary ---
Author Name Unknown Address Unknown Organization K01:[facility] - [address] [facility] [place] [address] Laboratory Report Ordering Provider Test Date Status SHABNAM LYNN 11/06/2024 10:15:00 Final Observation Date Value Abnormality Reference (Units ) Status HbA1C 11/06/2024 10:15:00 9.8 Above high normal 4. 0-5.6 (%) Final The use of HbA1c to monitor glycemic status is based on normal hemoglobin and HbA composition. This test should not be used in patients with abnormal hemoglobin that affects the half life of the red blood cell or the in vivo glycation rates. Glucose, estimated average 11/06/2024 10:15:00 235 Above high normal <126 (mg/dL) Rivera pabon Performing Location [facility] - [address] [facility] [address]
--- OUTSIDE RECORDS SUMMARY | 2024-11-14 13:22 | External Medical Summary | Summary of Care ---
Author Name Unknown Organization [facility] Address [address] [place] [address] Phone [phone] Care Team Providers Care Consumer Services Advisor Name Role Phone Anabel Ortiz MD Primary Care Provider Reason for Visit * Reason Onset Date Comments Appointment 10/28/2024 Encounter Details Date Type Department Care Team (Late st Contact Info) Description 10/28/2024 Telephone Family Practice [facility] [address] [place] [address] Anabel Ortiz MD [address] [place] [address] Appointment Allergies Active Allergy Reactions Criticality Noted [...] hemoglobin A1c goal of less than 7.0% ([facility]) USE UP TO 4 TIMES A [...] Tablets by mouth in the morning. Per [facility] instructions. 60 Tablet 5 5 Active [...] PPD 05/06/2014,05/18/2009 Pneumococcal Conjugate Vacci ne, 20-valent ([id number]) 01/19/2022 Pneumococcal Polysaccharide PPV23 (Pneumovax) 08/22/2013 Seasonal [...] Industry Job Start Date Job End Date [employer] work Not on file Not on file [...] encounter Miscellaneous Notes * Telephone Encounter - Jailene Rider LPN - 10/30/2024 9:05 AM EDT We have form and Dr. Randall said he would fill it out. It's now on his desk. * Telephone Encounter - Anabel Ortiz MD - 10/29/2024 9:10 PM EDT Did we try calling patients son? See initial note. Patient doesn't read MyG consistently. * Telephone Encounter - Stephy Nye LPN - 10/28/2024 1:14 PM EDT Mail box full, sent my g * Telephone Encounter - Reggie Mcfarlane MD - 10/28/2024 1:10 PM EDT Call patient---please make sure he gave [facility] our direct fax #--[phone]. I can sign form if he calls them & they fax it to me today. PCP is back tomorrow. Critical for his health. * Telephone Encounter - Stephy Nye LPN - 10/28/2024 12:27 PM EDT Images from the original note were not included. We have not received anything as of right now: Below is ref to us not being able to fill out these types of forms. * Telephone Encounter - Maureen Keith OSA - 10/28/2024 10:59 AM EDT The pt is calling in because he got in contact with [facility] and the will be faxing over a medical certification form. Patient hasn't had power for about a week and his insulin may be going bad. The patient also mentioned that he is probably eating food that he probably should not be eating. If you can't reach the patient please call his son at [phone] documented in this encounter Plan of Treatment Upcoming Encounters Date Type Department Care Team (Late st Contact Info) Description 11/06/2024 7:05 AM EDT Laboratory Lab Mobile Phlebotomy [address] [place] [address] [facility] Mobile Home Draw [address] [place] [address] [place] [address] 11/07/2024 6:00 AM EDT Anticoagulation Centralized Clinical Pharmacy Services, Sanket Watkins [address] [place] [address] [place] [address] [place] [address] 11/13/2024 3:20 PM EDT [facility] [address] [place] [address] [facility] [address] [place] [address] 01/14/2025 12:20 PM EDT Office Visit Family Practice [facility] [address] [place] [address] Anabel Ortiz MD [address] [place] [address] 02/19/2025 8:00 AM EDT Office Visit Family Practice [facility] [address] [place] [address] Anabel Ortiz MD [address] [place] [address] Health Maintenance Due Date Last Done Comments [...] this encounter Medical Devices Implanted Type Area Courtesy Bus Driver Device Identifier Shelf Expiration Date Model / Serial / Lot Cath Thermodilution 6fr - [id number] Implanted:Qty: 1 on 04/20/2023 at [facility] [employer] [id number] 11/13/2024 [id number] / / [id number] Valve Aortic Mech 21mm - [id number] - [id number] Implanted:Qty: 1 on 04/23/2023 by Zbigniew Linder MD at OR [facility] N/A: Heart [employer] [id number] 09/04/2028 ONXACE-2 [id number] / [id number] Suture Steel 6 B&S19 M654g - [id number] Implanted:Qty: 8 on 04/23/2023 by Zbigniew Linder MD at OR [facility] N/A: Sternum JNJ : [employer] [...] and were consensually agreed upon. Care Teams Consumer Services Advisor Relationship Specialty Start Date End Date Anabel Ortiz MD [address] [place] [address] PCP - General Internal Medicine 07/25/24 documented as of this encounter
--- OUTSIDE RECORDS SUMMARY | 2024-11-14 13:22 | External Medical Summary | Summary of Care ---
Author Name Unknown Organization [facility] Address [address] [place] [address] Phone [phone] Care Team Providers Care Director General Name Role Phone Anabel Ortiz MD Primary Care Provider Reason for Visit * Reason Onset Date Comments Appointment 10/28/2024 Encounter Details Date Type Department Care Team (Late st Contact Info) Description 10/28/2024 Telephone Family Practice [facility] [address] [place] [address] Anabel Ortiz MD [address] [place] [address] Appointment Allergies Active Allergy Reactions Criticality Noted [...] A1c goal of less than 7.0% ([facility]) USE UP TO 4 TIMES A [...] Tablets by mouth in the morning. Per [facility] instructions. 60 Tablet 5 5 Active [...] PPD 05/06/2014,05/18/2009 Pneumococcal Conjugate Vacci ne, 20-valent ([id number]) 01/19/2022 Pneumococcal Polysaccharide PPV23 (Pneumovax) 08/22/2013 Seasonal [...] Industry Job Start Date Job End Date [employer] work Not on file Not on file [...] EDT Call patient---please make sure he gave [employer] our direct fax #--[phone]. I can sign form if he calls [...] in because he got in contact with [employer] and the will be faxing over a medical certification form. Patient hasn't had power for about a week and his insulin may be going bad. The patient also mentioned that he is probably eating food that he probably should not be eating. If you can't reach the patient please call his son at [phone] documented in this encounter Plan of Treatment Upcoming Encounters Date Type Department Care Team (Late st Contact Info) Description 11/06/2024 7:05 AM EDT Laboratory Lab Mobile Phlebotomy [address] [place] [address] [facility] Mobile Home Draw [address] [place] [address] [place] [address] 11/07/2024 6:00 AM EDT Anticoagulation Centralized Clinical Pharmacy Services, Sanket Watknis [address] [place] [address] [place] [address] [place] [address] 11/13/2024 3:20 PM EDT Office Visit Pharmacy, [facility] [address] [place] [address] [facility] [address] [place] [address] 01/14/2025 12:20 PM EDT Office Visit [facility] [address] [place] [address] Anabel Ortiz MD [address] [place] [address] 02/19/2025 8:00 AM EDT Office Visit [facility] [address] [place] [address] Anabel Ortiz MD [address] [place] [address] Health Maintenance Due Date Last Done Comments [...] this encounter Medical Devices Implanted Type Area Hand Driller Device Identifier Shelf Expiration Date Model / Serial / Lot Cath Thermodilution 6fr - [id number] Implanted:Qty: 1 on 04/20/2023 at [facility] [place] [employer] [id number] 11/13/2024 [id number] / / [id number] Valve Aortic Mech 21mm - [id number] - [id number] Implanted:Qty: 1 on 04/23/2023 by Zbigniew Linder MD at OR [facility] [place] N/A: Heart [employer] [id number] 09/04/2028 ONXACE-2 [id number] / [id number] Suture Steel 6 B&S19 M654g - [id number] Implanted:Qty: 8 on 04/23/2023 by Zbigniew Linder MD at OR [facility] [place] N/A: Sternum JNJ : [...] and were consensually agreed upon. Care Teams Director General Relationship Specialty Start Date End Date Anabel Ortiz MD [address] [place] [address] PCP - General Internal Medicine 07/25/24 documented as of this encounter
--- OUTSIDE RECORDS SUMMARY | 2024-11-14 13:22 | External Medical Summary | Summary of Care ---
Author Name Unknown Organization [facility] Address [address] [place] [address] Phone [phone] Care Team Providers Care Information Coordinator Name Role Phone Anabel Ortiz MD Primary Care Provider Reason for Visit * Reason Onset Date Comments Advice 10/23/2024 Encounter Details Date Type Department Care Team (Late st Contact Info) Description 10/23/[address] [facility] [address] [place] [id number] Anabel Ortiz MD [address] [place] [address] Advice Allergies Active Allergy Reactions Criticality Noted Date Comments Erythromycin Abdominal pain Medium 07/06/1997 Stomach pain documented as of this encounter (statuses as of 10/31/2024) Medications MULTIVITAMINS PO TABS Take 1 Tablet [...] Tablets by mouth in the morning. Per [facility] instructions . 60 Tablet 5 10/03/2024 Active documented as of this encounter (statuses as of 10/31/2024) Active Problems Problem Noted Date Diagnosed Date [...] as of this encounter (statuses as of 10/31/2024) Resolved Problems Problem Noted Date Diagnosed Date [...] as of this encounter (statuses as of 10/31/2024) Immunizations Name Administration Dates Next Due COVID-19 mRNA, LNP-s, No Pre serve, 2-Dose Series (Moderna) 11/25/2020,10/28/2020 Diptheria/Tetanus (Adult) 08/06/1992 Hepatitis B, 20+ yrs 05/19/2015,11/19/2014,05/06 PPD 05/06/2014,05/18/2009 Pneumococcal Conjugate Vacci ne, 20-valent ([id number]) 01/19/2022 Pneumococcal Polysaccharide PPV23 (Pneumovax) 08/22/2013 Seasonal [...] Industry Job Start Date Job End Date [employer] work Not on file Not on file [...] Telephone Encounter - Miladys Ruvalcaba LPN - 10/31/2024 6:48 AM EDT Form completed and faxed to number on form * Telephone Encounter - Tom Randall MD [...] medical condition. I told pt that per [facility] policy, we are not to be doing [...] Letter needs to be faxed over to [facility] . Please follow up. Thank you. documented in this encounter Plan of Treatment Upcoming Encounters Date Type Department Care Team (Late st Contact Info) Description 11/06/2024 7:05 AM EDT Laboratory Lab Mobile Phlebotomy [address] [place] [address] [facility] Mobile Home Draw [address] [place] [address] [place] [address] 11/07/2024 6:00 AM EDT Anticoagulation Centralized Clinical Pharmacy Services, Sanket Watkins [address] [place] [address] [place] [address] [place] [address] 11/13/2024 3:20 PM EDT Office Visit Pharmacy, [facility] [address] [place] [address] [facility] [address] [place] [address] 01/14/2025 12:20 PM EDT Office Visit Family Practice [facility] [address] [place] [address] Anabel Ortiz MD [address] [place] [address] 02/19/2025 8:00 AM EDT Office Visit Family [facility] [address] [place] [address] Anabel Ortiz MD [address] [place] [address] Health Maintenance Due Date Last Done Comments [...] this encounter Medical Devices Implanted Type Area Stationary Fireman Device Identifier Shelf Expiration Date Model / Serial / Lot Cath Thermodilution 6fr - [id number] Implanted:Qty: 1 on [place]/2023 [place] [facility] [place] [employer] [id number] 11/13/2024 [id number] / / [id number] Valve Aortic [facility] 21mm - [id number] - [id number] Implanted:Qty: 1 on 04/23/2023 by Zbigniew Linder [place] [facility] [place]A: Heart [employer] [id number] 09/04/2028 ONXACE-2 [id number] / [id number] Suture Steel 6 B&S19 M654g - [id number] Implanted:Qty: 8 on 04/23/2023 by Zbigniew Linder MD [place] [facility] [place]/A: Sternum JNJ : [employer] 12/07/2027 [...] and were consensually agreed upon. Care Teams Information Coordinator Relationship Specialty Start Date End Date Anabel Ortzi MD [address] [place] [address] [place] [address] PCP - General Internal Medicine 07/25/24 documented as of this encounter
--- OUTSIDE RECORDS SUMMARY | 2024-11-14 13:22 | External Medical Summary | Summary of Care ---
Author Name Unknown Organization [facility] Address [address] [place] [address] Phone [phone] Care Team Providers Care Ground Crewman Name Role Phone Anabel Ortiz MD Primary Care Provider Reason for Visit * Reason Onset Date Comments Advice 10/23/2024 Encounter Details Date Type Department Care Team (Late st Contact Info) Description 10/23/2024 Telephone Family Practice [facility] [address] [place] [phone] Anabel Ortiz MD [address] [place] [address] Advice Allergies Active Allergy Reactions Criticality Noted [...] Tablets by mouth in the morning. Per [facility] instructions . 60 Tablet 5 10/03/2024 [...] PPD 05/06/2014,05/18/2009 Pneumococcal Conjugate Vacci ne, 20-valent ([id number]) 01/19/2022 Pneumococcal Polysaccharide PPV23 (Pneumovax) 08/22/2013 Seasonal [...] Industry Job Start Date Job End Date [employer] work Not on file Not on file [...] medical condition. I told pt that per [facility] policy, we are not to be doing [...] hour turn-around time. * Telephone Encounter - Shewrin Fitzgerald OSA - 10/23/2024 2:23 PM EDT Patient called to say that they shut off his electricity and he needs it to be turned back on SHAW as he has meds that need to be kept refrigerated. He needs PCP to write a letter of certification stating that he needs his electricity. Letter needs to be faxed over to [facility] . Please follow up. Thank you. documented in this encounter Plan of Treatment Upcoming Encounters Date Type Department Care Team (Late st Contact Info) Description 11/06/2024 7:05 AM EDT Laboratory Lab Mobile Phlebotomy [address] [place] [address] [facility] Mobile Home Draw [address] [place] [address] [place] [address] 11/07/2024 6:00 AM EDT Anticoagulation Centralized Clinical Pharmacy Services, Sanket Watkins [address] [place] [address] [place] [address] [facility], [address] [place] [address] 11/13/2024 3:20 PM EDT Office Visit Pharmacy, [facility] [address] [place] [address] [facility] [address] [place] [address] 01/14/2025 12:20 PM EDT Office Visit [facility] [address] [place] [address] Anabel Ortiz MD [address] [place] [address] 02/19/2025 8:00 AM EDT Office Visit [facility] [address] [place] [address] Anabel Ortiz MD [address] [place] [address] Health Maintenance Due Date Last Done Comments [...] this encounter Medical Devices Implanted Type Area Nursery Nurse Device Identifier Shelf Expiration Date Model / Serial / Lot Cath Thermodilution 6fr - [id number] Implanted:Qty: 1 on 04/20/2023 at [facility] [place] [employer] [id number] 11/13/2024 [id number] / / [id number] Valve Aortic Mech 21mm - [id number] - [id number] Implanted:Qty: 1 on 04/23/2023 by Zbigniew Linder MD at OR [facility] N/A: Heart [employer] [id number] 09/04/2028 ONXACE-2 [id number] / [id number] Suture Steel 6 B&S19 M654g - [id number] Implanted:Qty: 8 on 04/23/2023 by Zbigniew Linder MD at OR [facility] N/A: Sternum JNJ : [employer] 12/07/2027 [...] and were consensually agreed upon. Care Teams Ground Crewman Relationship Specialty Start Date End Date Anabel Ortiz MD [address] [place] [address] PCP - General Internal Medicine 07/25/24 documented as of this encounter
--- OUTSIDE RECORDS SUMMARY | 2024-11-14 13:22 | External Medical Summary | Summary of Care ---
Author Name Unknown Organization [facility] Address [address] [place] [address] Phone [phone] Care Team Providers Care Auto Body Repair Technician Name Role Phone Anabel Ortiz MD Primary Care Provider Reason for Visit * Reason Onset Date Comments Advice 10/23/2024 Encounter Details Date Type Department Care Team (Late st Contact Info) Description 10/23/2024 Telephone Family Practice [facility] [address] [place] [address] Anabel Ortiz MD [address] [place] [address] Advice Allergies Active Allergy Reactions Criticality Noted [...] Tablets by mouth in the morning. Per [facility] instructions . 60 Tablet 5 10/03/2024 Active [...] PPD 05/06/2014,05/18/2009 Pneumococcal Conjugate Vacci ne, 20-valent ([id number]) 01/19/2022 Pneumococcal Polysaccharide PPV23 (Pneumovax) 08/22/2013 Seasonal [...] Industry Job Start Date Job End Date [employer] work Not on file Not on file [...] medical condition. I told pt that per [facility] policy, we are not to be [...] Letter needs to be faxed over to [facility] . Please follow up. Thank you. documented in this encounter Plan of Treatment Upcoming Encounters Date Type Department Care Team (Late st Contact Info) Description 11/06/2024 7:05 AM EDT Laboratory Lab Mobile Phlebotomy [address] [place] [address] [facility] Mobile Home [facility] [place] [address] 11/07/2024 6:00 AM EDT Anticoagulation Centralized Clinical Pharmacy Services, Sanket Watkins [address] [place] [address] [place] [address] [facility], [address] [place] [address] 11/13/2024 3:20 PM EDT Office Visit Pharmacy, [facility] [address] [place] [address] [facility] [address] [place] [address] 01/14/2025 12:20 PM EDT Office Visit Family Practice [facility] [address] [place] [address] Anabel Ortiz MD [address] [place] [address] 02/19/2025 8:00 AM EDT Office Visit [facility] [address] [place] [address] Anabel Ortiz MD [address] [place] [address] Health Maintenance Due Date Last Done Comments [...] this encounter Medical Devices Implanted Type Area Clinical Data Specialist Device Identifier Shelf Expiration Date Model / Serial / Lot Cath Thermodilution 6fr - [id number] Implanted:Qty: 1 on 04/20/2023 at [facility] [place] [employer] [employer] [place] [id number] 11/13/2024 [id number] / / [id number] Valve Aortic Mech 21mm - [id number] - [id number] Implanted:Qty: 1 on 04/23/2023 by Zbigniew Linder MD at [place] [facility] N/A: Heart [employer] [id number] 09/04/2028 ONXACE-2 [id number] / [id number] Suture Steel 6 B&S19 M654g - [id number] Implanted:Qty: 8 on 04/23/2023 by Zbigniew Linder MD at OR [facility] N/A: Sternum JNJ : [employer] 12/07/2027 [...] and were consensually agreed upon. Care Teams Auto Body Repair Technician Relationship Specialty Start Date End Date Anabel Ortiz MD [address] [place] [address] PCP - General Internal Medicine 07/25/24 documented as of this encounter
--- OUTSIDE RECORDS SUMMARY | 2024-11-14 13:22 | External Medical Summary | Summary of Care ---
Author Name Unknown Organization [facility] Address [address] [place] [facility] [place] [address] Phone [phone] Care Team Providers Care Under Presser Name Role Phone Anabel Ortiz MD Primary Care Provider Reason for Visit * Reason Onset Date Comments Appointment 10/28/2024 Status Check 10/28/2024 Utility letter Encounter Details Date Type Department Care Team (Late st Contact Info) Description 10/28/2024 Telephone Family Practice [facility] [address] [place] [address] Anabel Ortiz MD [address] [place] [address] Appointment; Status Check (Utility letter ) Allergies Active Allergy Reactions Criticality Noted Date [...] hemoglobin A1c goal of less than 7.0% ([facility]) USE UP TO 4 TIMES [...] Tablets by mouth in the morning. Per [facility] instructions. 60 Tablet 5 5 Active Clopidogrel [...] PPD 05/06/2014,05/18/2009 Pneumococcal Conjugate Vacci ne, 20-valent ([id number]) 01/19/2022 Pneumococcal Polysaccharide PPV23 (Pneumovax) 08/22/2013 Seasonal [...] Industry Job Start Date Job End Date [employer] work Not on file Not on file [...] encounter Miscellaneous Notes * Telephone Encounter - Jaqui Wiseman OSA - 10/30/2024 10:34 AM EDT Patient has been notified of the message. Patient has no further questions. [phone] * Telephone Encounter - Jailene Rider LPN [...] EDT Call patient---please make sure he gave [place] [facility] our direct fax #--[phone]. I can sign form if he calls [...] in because he got in contact with [facility] and the will be faxing over a medical certification form. Patient hasn't had power for about a week and his insulin may be going bad. The patient also mentioned that he is probably eating food that he probably should not be eating. If you can't reach the patient please call his son at [phone] documented in this encounter Plan of Treatment Upcoming Encounters Date Type Department Care Team (Late st Contact Info) Description 11/06/2024 7:05 AM EDT Laboratory Lab Mobile Phlebotomy [address] [place] [address] [facility] Mobile Home Draw [address] [place] [address] [place] [address] 11/07/2024 6:00 AM EDT Anticoagulation Centralized Clinical Pharmacy Services, Sanket Watkins [address] [place] [address] [place] [address] [facility] [place] [address] 11/13/2024 3:20 PM EDT Office Visit Pharmacy, [facility] [address] [facility] [place] [address] [facility] 132 [facility] [place] [address] 01/14/2025 12:20 PM EDT Office Visit [facility] [address] [place] [address] Anabel Ortiz MD [address] [place] [address] 02/19/2025 8:00 AM EDT Office Visit [facility] [address] [place] [address] Anabel Ortiz MD [address] [place] [address] Health Maintenance Due Date Last Done Comments [...] this encounter Medical Devices Implanted Type Area Public Affairs Specialist Device Identifier Shelf Expiration Date Model / Serial / Lot Cath Thermodilution 6fr - [id number] Implanted:Qty: 1 on 04/20/2023 at [place] [facility] [place] [employer] [id number] 11/13/2024 [id number] / / [id number] Valve Aortic Mech 21mm - [id number] - [id number] Implanted:Qty: 1 on 04/23/2023 by Zbigniew Linder MD at [place] [facility] N/A: Heart [employer] [id number] 09/04/2028 ONXACE-2 [id number] / [id number] Suture Steel 6 B&S19 M654g - [id number] Implanted:Qty: 8 on 04/23/2023 by Zbigniew Linder MD at [place] [facility] N/A: Sternum JNJ : [employer] [...] and were consensually agreed upon. Care Teams Under Presser Relationship Specialty Start Date End Date Anabel Ortiz MD [address] [place] [address] PCP - General Internal Medicine 07/25/24 documented as of this encounter
--- OUTSIDE RECORDS SUMMARY | 2024-11-14 13:23 | External Medical Summary | Summary of Care ---
Author Name Unknown Organization [facility] Address [address] [place] [address] Phone [phone] Care Team Providers Care Director Of Retail Name Role Phone Anabel Ortiz MD Primary Care Provider Reason for Visit * Reason Onset Date Comments Advice 10/23/2024 Encounter Details Date Type Department Care Team (Late st Contact Info) Description 10/23/2024 Telephone Family Practice [facility] [address] [place] [address] Anabel Ortiz MD [address] [place] [address] Advice Allergies Active Allergy Reactions Criticality Noted Date Comments Erythromycin Abdominal pain Medium 07/06/1997 Stomach pain documented as of this encounter (statuses as of 10/28/2024) Medications MULTIVITAMINS PO TABS Take 1 Tablet [...] Tablets by mouth in the morning. Per [facility] instructions . 60 Tablet 5 10/03/2024 Active documented as of this encounter (statuses as of 10/28/2024) Active Problems Problem Noted Date Diagnosed Date [...] as of this encounter (statuses as of 10/28/2024) Resolved Problems Problem Noted Date Diagnosed Date [...] as of this encounter (statuses as of 10/28/2024) Immunizations Name Administration Dates Next Due COVID-19 mRNA, LNP-s, No Pre serve, 2-Dose Series (Moderna) 11/25/2020,10/28/2020 Diptheria/Tetanus (Adult) 08/06/1992 Hepatitis B, 20+ yrs 05/19/2015,11/19/2014,05/06 PPD 05/06/2014,05/18/2009 Pneumococcal Conjugate Vacci ne, 20-valent ([id number]) 01/19/2022 Pneumococcal Polysaccharide PPV23 (Pneumovax) 08/22/2013 Seasonal [...] Industry Job Start Date Job End Date [employer] work Not on file Not on file [...] medical condition. I told pt that per [facility] policy, we are not to be [...] Letter needs to be faxed over to [facility] . Please follow up. Thank you. documented in this encounter Plan of Treatment Upcoming Encounters Date Type Department Care Team (Late st Contact Info) Description 11/06/2024 7:05 AM EDT Laboratory Lab Mobile Phlebotomy [address] [place] [address] [facility] Mobile Home Draw [facility] [place] [address] 11/07/2024 6:00 AM EDT Anticoagulation Centralized Clinical Pharmacy Services, Sanket Watkins [address] [place] [address] [place] [address] [facility], [address] [place] [address] 11/13/2024 3:20 PM EDT Office Visit Pharmacy, [facility] [address] [place] [address] [facility] [address] [place] [address] 01/14/2025 12:20 PM EDT Office Visit Family Practice [facility] [address] [place] [address] Anabel Ortiz MD [address] [place] [address] 02/19/2025 8:00 AM EDT Office Visit [facility] [address] [place] [address] Anabel Ortiz MD [address] [place] [address] Health Maintenance Due Date Last Done Comments [...] this encounter Medical Devices Implanted Type Area Kiln Repairer Device Identifier Shelf Expiration Date Model / Serial / Lot Cath Thermodilution 6fr - [id number] Implanted:Qty: 1 on 04/20/2023 at [place] [facility] [place] [employer] [place] [id number] 11/13/2024 [id number] / / [id number] Valve Aortic Mech 21mm - [id number] - [id number] Implanted:Qty: 1 on 04/23/2023 by Zbigniew Linder MD at [place] [facility] [place] N/A: Heart [employer] [id number] 09/04/2028 ONXACE-2 [id number] / [id number] Suture Steel 6 B&S19 M654g - [id number] Implanted:Qty: 8 on 04/23/2023 by Zbigniew Linder MD at [place] [facility] [place] N/A: Sternum JNJ : [employer] 12/07/2027 [...] were consensually agreed upon. Care Teams Director Of Retail Relationship Specialty Start Date End Date Anabel Ortiz MD [address] [place] [address] PCP - General Internal Medicine 07/25/24 documented as of this encounter
--- OUTSIDE RECORDS SUMMARY | 2024-11-14 13:23 | External Medical Summary | Summary of Care ---
Author Name Unknown Organization [facility] Address [address] [place] [address] Phone [phone] Care Team Providers Care Awning Maker Name Role Phone Anabel Ortiz MD Primary Care Provider Reason for Visit * Reason Onset Date Comments Appointment 10/28/2024 Encounter Details Date Type Department Care Team (Late st Contact Info) Description 10/28/2024 Telephone Family Practice [facility] [address] [place] [address] Anabel Ortiz MD [address] [place] [address] Appointment Allergies Active Allergy Reactions Criticality Noted [...] of less than 7.0% ([facility]) USE UP TO 4 TIMES A [...] Tablets by mouth in the morning. Per [facility] instructions. 60 Tablet 5 5 Active Clopidogrel [...] PPD 05/06/2014,05/18/2009 Pneumococcal Conjugate Vacci ne, 20-valent ([id number]) 01/19/2022 Pneumococcal Polysaccharide PPV23 (Pneumovax) 08/22/2013 Seasonal [...] Industry Job Start Date Job End Date [employer] work Not on file Not on file [...] encounter Miscellaneous Notes * Telephone Encounter - Stephy Nye LPN - 10/28/2024 1:14 PM EDT Mail box full, sent my g * Telephone Encounter - Reggie Mcfarlane MD - 10/28/2024 1:10 PM EDT Call patient---please make sure he gave [employer] our direct fax #--[phone]. I can sign form if he calls [...] in because he got in contact with [employer] and the will be faxing over a medical certification form. Patient hasn't had power for about a week and his insulin may be going bad. The patient also mentioned that he is probably eating food that he probably should not be eating. If you can't reach the patient please call his son at [phone] documented in this encounter Plan of Treatment Upcoming Encounters Date Type Department Care Team (Late st Contact Info) Description 11/06/2024 7:05 AM EDT Laboratory Lab Mobile Phlebotomy [address] [place] [address] [facility] Mobile Home Draw [address] [place] [address] [place] [address] 11/07/2024 6:00 AM EDT Anticoagulation Centralized Clinical Pharmacy Services, Sanket Watkins [address] [place] [address] [place] [address] [place] [address] 11/13/2024 3:20 PM EDT Office Visit Pharmacy, [facility] [address] [address] [facility] [address] [place] [address] 01/14/2025 12:20 PM EDT Office Visit Family Practice [facility] [address] [place] [address] Anabel Ortiz MD [address] [place] [address] 02/19/2025 8:00 AM EDT Office Visit [facility] [address] [place] [address] Anabel Ortiz MD [address] [place] [address] Health Maintenance Due Date Last Done Comments [...] this encounter Medical Devices Implanted Type Area Car Whacker Device Identifier Shelf Expiration Date Model / Serial / Lot Cath Thermodilution 6fr - [id number] Implanted:Qty: 1 on 04/20/2023 at [facility] [employer] [place] [id number] 11/13/2024 [id number] / / [id number] Valve Aortic Mech 21mm - [id number] - [id number] Implanted:Qty: 1 on 04/23/2023 by Zbigniew Linder MD at [place] [facility] N/A: Heart [employer] [id number] 09/04/2028 ONXACE-2 [id number] / [id number] Suture Steel 6 B&S19 M654g - [id number] Implanted:Qty: 8 on 04/23/2023 by Zbigniew Linder [...] and were consensually agreed upon. Care Teams Awning Maker Relationship Specialty Start Date End Date Anabel Ortiz MD [address] [place] [address] PCP - General Internal Medicine 07/25/24 documented as of this encounter
--- OUTSIDE RECORDS SUMMARY | 2024-11-14 13:23 | External Medical Summary | Summary of Care ---
Author Name Unknown Organization [facility] Address [address] [place] [address] Phone [phone] Care Team Providers Care Feather Washer Name Role Phone Anabel Ortzi MD Primary Care Provider Reason for Visit * Reason Onset Date Comments Appointment 10/28/2024 Encounter Details Date Type Department Care Team (Late st Contact Info) Description 10/28/2024 Telephone Family Practice [facility] [address] [place] [address] Anbael Ortiz MD [address] [place] [address] Appointment Allergies Active Allergy Reactions Criticality Noted [...] A1c goal of less than 7.0% ([facility]) USE UP TO 4 TIMES [...] Tablets by mouth in the morning. Per [facility] instructions. 60 Tablet 5 5 Active [...] PPD 05/06/2014,05/18/2009 Pneumococcal Conjugate Vacci ne, 20-valent ([id number]) 01/19/2022 Pneumococcal Polysaccharide PPV23 (Pneumovax) 08/22/2013 Seasonal [...] Industry Job Start Date Job End Date [address] [employer] work Not on file Not on file [...] EDT Call patient---please make sure he gave [employer] our direct fax #--[phone]. I can sign form if he calls [...] in because he got in contact with [employer] and the will be faxing over a medical certification form. Patient hasn't had power for about a week and his insulin may be going bad. The patient also mentioned that he is probably eating food that he probably should not be eating. If you can't reach the patient please call his son at [phone] documented in this encounter Plan of Treatment Upcoming Encounters Date Type Department Care Team (Late st Contact Info) Description 11/06/2024 7:05 AM EDT Laboratory Lab Mobile Phlebotomy [address] [place] [address] [facility] Mobile Home Draw [address] [place] [address] [place] [address] 11/07/2024 6:00 AM EDT Anticoagulation Centralized Clinical Pharmacy Services, Sanket Watkins [address] [place] [address] [place] [address] [place] [address] 11/13/2024 3:20 PM EDT Office Visit Pharmacy, [facility] [address] [address] [facility] [address] [place] [address] 01/14/2025 12:20 PM EDT Office Visit Family Practice [facility] [address] [place] [address] Anabel Ortiz MD [address] [place] [address] 02/19/2025 8:00 AM EDT Office Visit [facility] [address] [place] [address] Anabel Ortiz MD [address] [place] [address] Health Maintenance Due Date Last Done Comments [...] this encounter Medical Devices Implanted Type Area Gamewell Operator Device Identifier Shelf Expiration Date Model / Serial / Lot Cath Thermodilution 6fr - [id number] Implanted:Qty: 1 on [place]/20/2023 [place] [facility] [place] [employer] [place] [id number] 11/13/2024 [id number] / / [id number] Valve Aortic Mech 21mm - [id number] - [id number] Implanted:Qty: 1 on 04/23/2023 by Zbigniew Linder MD [place] [facility] [place]/A: Heart [employer] [id number] 09/04/2028 ONXACE-2 [id number] / [id number] Suture Steel 6 B&S19 M654g - [id number] Implanted:Qty: 8 on 04/23/2023 by Zbigniew Linder [...] and were consensually agreed upon. Care Teams Feather Washer Relationship Specialty Start Date End Date Anabel Ortiz MD [address] [place] [address] PCP - General Internal Medicine 07/25/24 documented as of this encounter
--- OUTSIDE RECORDS SUMMARY | 2024-11-14 13:23 | External Medical Summary | Summary of Care ---
Author Name Unknown Organization [facility] Address [address] [place] [address] Phone [phone] Care Team Providers Care Dressage Judge Name Role Phone Anable Ortiz MD Primary Care Provider Reason for Visit * Reason Onset Date Comments Appointment 10/28/2024 Encounter Details Date Type Department Care Team (Late st Contact Info) Description 10/28/2024 Telephone Family Practice [facility] [address] [place] [address] Anabel Ortiz MD [address] [place] [address] Appointment Allergies Active Allergy Reactions Criticality Noted [...] than 7.0% ([facility]) USE UP TO 4 TIMES A DAY [...] PPD 05/06/2014,05/18/2009 Pneumococcal Conjugate Vacci ne, 20-valent ([id number]) 01/19/2022 Pneumococcal Polysaccharide PPV23 (Pneumovax) 08/22/2013 Seasonal [...] Industry Job Start Date Job End Date [employer] work Not on file Not on file [...] EDT Call patient---please make sure he gave [employer] our direct fax #--[phone]. I can sign form if he calls them & they fax it to me today. PCP is back tomorrow. Critical for his health. * Telephone Encounter - tSephy Nye LPN - 10/28/2024 12:27 PM EDT Images from the original note were not included. We have not received anything as of right now: Below is ref to us not being able to fill out these types of forms. * Telephone Encounter - Maureen Keith OSA - 10/28/2024 10:59 AM EDT The pt is calling in because he got in contact with [employer] and the will be faxing over a medical certification form. Patient hasn't had power for about a week and his insulin may be going bad. The patient also mentioned that he is probably eating food that he probably should not be eating. If you can't reach the patient please call his son at [phone] documented in this encounter Plan of Treatment Upcoming Encounters Date Type Department Care Team (Late st Contact Info) Description 11/06/2024 7:05 AM EDT Laboratory Lab Mobile Phlebotomy [address] [place] [address] [facility] Mobile Home Draw [address] [place] [address] [place] [address] 11/07/2024 6:00 AM EDT Anticoagulation Centralized Clinical Pharmacy Services, Sanket Watkins [address] [place] [address] [place] [address] [place] [address] 11/13/2024 3:20 PM EDT Office Visit Pharmacy, [facility] [address] [address] [facility] [address] [place] [address] 01/14/2025 12:20 PM EDT Office Visit Family Practice [facility] [address] [place] [address] Anabel Ortiz MD [address] [place] [address] 02/19/2025 8:00 AM EDT Office Visit [facility] [address] [place] [address] Anabel Ortiz MD [address] [place] [address] Health Maintenance Due Date Last Done Comments [...] this encounter Medical Devices Implanted Type Area Reservationist Device Identifier Shelf Expiration Date Model / Serial / Lot Cath Thermodilution 6fr - [id number] Implanted:Qty: 1 on [place]/20/2023 [place] [facility] [place] [employer] [place] [id number] 11/13/2024 [id number] / / [id number] Valve Aortic Mech 21mm - [id number] - [id number] Implanted:Qty: 1 on 04/23/2023 by Zbigniew Linder MD [place] [facility] [place]A: Heart [employer] [id number] 09/04/2028 ONXACE-2 [id number] / [id number] Suture Steel 6 B&S19 M654g - [id number] Implanted:Qty: 8 on 04/23/2023 by Zbigniew Linder MD [place] [facility] N/A: Sternum JNJ : [employer] 12/07/2027 [...] and were consensually agreed upon. Care Teams Dressage Judge Relationship Specialty Start Date End Date Anabel Ortiz MD [address] [place] [address] PCP - General Internal Medicine 07/25/24 documented as of this encounter
--- OUTSIDE RECORDS SUMMARY | 2024-11-14 13:23 | External Medical Summary | Summary of Care ---
Author Name Unknown Organization [facility] Address [address] [facility] [place] [address] Phone [phone] Care Team Providers Care Complaint Supervisor Name Role Phone Anabel Ortiz MD Primary Care Provider Reason for Visit * Reason Onset Date Comments Scan To Read 10/24/2024 Encounter Details Date Type Department Care Team (Late st Contact Info) Description 10/24/2024 Telephone Family Practice [facility] [address] [place] [address] Tom Andujar MD [address] [place] [address] Scan To Read Allergies Active Allergy Reactions Criticality Noted Date Comments Erythromycin Abdominal pain Medium 07/06/1997 Stomach pain documented as of this encounter (statuses as of 10/27/2024) Medications MULTIVITAMINS PO TABS Take 1 Tablet by mouth every morning. Active Calcium Carbonate Antacid 500 MG Oral Tablet Chewable Take 1 Tablet by mouth as needed. As needed 5 Active ONETOUCH DELICA LANCETS 33G MISC TEST SUGAR DAILY 100 Each 5 8 Active ONETOUCH ULTRA BLUE STRPIndications:T ype 2 diabetes mellitus with hemoglobin A1c goal of less than 7.0% ([facility]) USE UP TO 4 TIMES A [...] as of this encounter (statuses as of 10/27/2024) Active Problems Problem Noted Date Diagnosed Date [...] as of this encounter (statuses as of 10/27/2024) Resolved Problems Problem Noted Date Diagnosed Date [...] as of this encounter (statuses as of 10/27/2024) Immunizations Name Administration Dates Next Due COVID-19 mRNA, LNP-s, No Pre serve, 2-Dose Series (Moderna) 11/25/2020,10/28/2020 Hepatitis B, 20+ yrs 05/19/2015,11/19/2014,05/06 PPD 05/06/2014,05/18/2009 Pneumococcal Conjugate Vacci ne, 20-valent ([id number]) 01/19/2022 Pneumococcal Polysaccharide PPV23 (Pneumovax) 08/22/2013 Seasonal [...] Industry Job Start Date Job End Date [employer] work Not on file Not on file [...] encounter Miscellaneous Notes * Telephone Encounter - Reggie Macias MD - 10/24/2024 4:06 PM EDT Retinal Scan Imaging Derek Tristan [id number] Retinal Scan Interpretation: There is no retinopathy in both eyes Diabetes Retinal Imaging Care Plan: The retinal scan results are normal - I will forward this encounter to the Ophthalmology DM Letter Pool [[id number]], they will send a normal retinal scan letter to the patient, and the patient will be seen back for a yearly scan. Reggie Macias MD 10/24/2024 4:06 PM * Telephone Encounter - Miladys Ruvalcaba LPN - 10/24/2024 10:36 AM EDT A Diabetic Telemed Eye image was taken and requires your interpretation for Dr Andujar. Please check your inbasket for image. Patient prefers to be seen at [facility] if a follow-up appointment is needed. documented in this encounter Plan of Treatment Upcoming Encounters Date Type Department Care Team (Late st Contact Info) Description 10/27/2024 5:10 PM EDT [address], [address] [place] [address] History of mechanical aortic valve replacement*; S/P aortic valve replacement 11/06/2024 7:05 AM EDT Laboratory Lab Mobile Phlebotomy [address] [place] [address] [facility] Mobile Home Draw [facility] [place] [address] 11/07/2024 6:00 AM EDT Anticoagulation Centralized Clinical Pharmacy Services, Sanket Watkins [address] [place] [address] [place] [address] [place] [address] 11/13/2024 3:20 PM EDT Office Visit Pharmacy, [facility] [address] [place] [address] [facility] [address] [place] [address] 01/14/2025 12:20 PM EDT Office Visit [facility] [address] [place] [address] Anabel Ortiz MD [address] [place] [address] 02/19/2025 8:00 AM EDT Office Visit [facility] [address] [place] [address] Anabel Ortiz MD [address] [place] [address] Health Maintenance Due Date Last Done Comments [...] this encounter Medical Devices Implanted Type Area Coach Mechanic Device Identifier Shelf Expiration Date Model / Serial / Lot Cath Thermodilution 6fr - [id number] Implanted:Qty: 1 on 04/20/2023 at [facility] [place] [employer] [place] [id number] 11/13/2024 [id number] / / [id number] Valve Aortic Mech 21mm - [id number] - [id number] Implanted:Qty: 1 on 04/23/2023 by Zbigniew Linder MD at [place] [facility] N/A: Heart [employer] [id number] 09/04/2028 ONXACE-2 [id number] / [id number] Suture Steel 6 B&S19 M654g - [id number] Implanted:Qty: 8 on 04/23/2023 by Zbigniew Linder MD at [place] [facility] N/A: Sternum JNJ : [employer] 12/07/2027 [...] and were consensually agreed upon. Care Teams Complaint Supervisor Relationship Specialty Start Date End Date Anabel Ortzi MD [address] [place] [address] PCP - General Internal Medicine 07/25/24 documented as of this encounter
--- OUTSIDE RECORDS SUMMARY | 2024-11-14 13:23 | External Medical Summary | Summary of Care ---
Author Name Unknown Organization [facility] Address [address] [place] [address] Phone [phone] Care Team Providers Care Criminal Justice Teacher Name Role Phone Anabel Ortiz MD Primary Care Provider Reason for Visit * Reason Onset Date Comments Advice 10/23/2024 Encounter Details Date Type Department Care Team (Late st Contact Info) Description 10/23/2024 Telephone Family Practice [facility] [address] [place] [address] Anabel Ortiz MD [address] [place] [address] Advice Allergies Active Allergy Reactions Criticality Noted [...] Tablets by mouth in the morning. Per [facility] instructions . 60 Tablet 5 [...] PPD 05/06/2014,05/18/2009 Pneumococcal Conjugate Vacci ne, 20-valent ([id number]) 01/19/2022 Pneumococcal Polysaccharide PPV23 (Pneumovax) 08/22/2013 Seasonal [...] Industry Job Start Date Job End Date [employer] work Not on file Not on file [...] medical condition. I told pt that per [facility] policy, we are not to be [...] 7:05 AM EDT Laboratory Lab Mobile Phlebotomy [address] [place] [address] [facility] Mobile Home Draw [address] [place] [address] [place] [address] 11/07/2024 6:00 AM EDT Anticoagulation Centralized Clinical Pharmacy Services, Sanket Watkins [address] [place] [address] [place] [address] [place] [address] 11/13/2024 3:20 PM EDT Office Visit Pharmacy, [facility] [address] [place] [address] [facility] [address] [place] [address] 01/14/2025 12:20 PM EDT Office Visit Family Practice [facility] [address] [place] [address] Anabel Ortiz MD [address] [place] [address] 02/19/2025 8:00 AM EDT Office Visit Family [facility] [address] [place] [address] Anabel Ortiz MD [address] [place] [address] Health Maintenance Due Date Last Done Comments [...] this encounter Medical Devices Implanted Type Area Appeals Coordinator Device Identifier Shelf Expiration Date Model / Serial / Lot Cath Thermodilution 6fr - [id number] Implanted:Qty: 1 on 04/20/[address] [facility] [place] [employer] [place] [id number] 11/13/2024 [id number] / / [id number] Valve Aortic Mech 21mm - [id number] - [id number] Implanted:Qty: 1 on 04/23/2023 by Zbigniew Linder MD at [place] [facility] [place] N/A: Heart [employer] [id number] 09/04/2028 ONXACE-2 [id number] / [id number] Suture Steel 6 B&S19 M654g - [id number] Implanted:Qty: 8 on 04/23/2023 by Zbigniew Linder MD at [place] [facility] [place] N/A: Sternum JNJ [...] and were consensually agreed upon. Care Teams Criminal Justice Teacher Relationship Specialty Start Date End Date Anabel Ortiz MD [address] [place] [address] PCP - General Internal Medicine 07/25/24 documented as of this encounter
--- OUTSIDE RECORDS SUMMARY | 2024-11-14 13:23 | External Medical Summary | Summary of Care ---
Author Name Unknown Organization [facility] Address [address] [place] [address] Phone [phone] Care Team Providers Care Bottom Finisher Name Role Phone Anabel Ortiz MD Primary Care Provider Reason for Visit * Reason Onset Date Comments Appointment 10/28/2024 Encounter Details Date Type Department Care Team (Late st Contact Info) Description 10/28/2024 Telephone Family Practice [facility] [address] [place] [address] Anabel Ortiz MD [address] [place] [address] Appointment Allergies Active Allergy Reactions Criticality Noted [...] hemoglobin A1c goal of less than 7.0% ([facility]) USE UP TO 4 TIMES A DAY [...] Tablets by mouth in the morning. Per [facility] instructions. 60 Tablet 5 5 Active [...] PPD 05/06/2014,05/18/2009 Pneumococcal Conjugate Vacci ne, 20-valent ([id number]) 01/19/2022 Pneumococcal Polysaccharide PPV23 (Pneumovax) 08/22/2013 Seasonal [...] Industry Job Start Date Job End Date [employer] work Not on file Not on file [...] EDT Call patient---please make sure he gave [employer] our direct fax #--[phone]. I can sign form if he calls [...] in because he got in contact with [employer] and the will be faxing over a medical certification form. Patient hasn't had power for about a week and his insulin may be going bad. The patient also mentioned that he is probably eating food that he probably should not be eating. If you can't reach the patient please call his son at [phone] documented in this encounter Plan of Treatment Upcoming Encounters Date Type Department Care Team (Late st Contact Info) Description 11/06/2024 7:05 AM EDT Laboratory Lab Mobile Phlebotomy [address] [place] [address] [facility] Mobile Home Draw [address] [place] [address] [place] [address] 11/07/2024 6:00 AM EDT Anticoagulation Centralized Clinical Pharmacy Services, Sanket Watkins [address] [place] [address] [place] [address] [place] [address] 11/13/2024 3:20 PM EDT Office Visit Pharmacy, [facility] [address] [address] [facility] [address] [place] [address] 01/14/2025 12:20 PM EDT Office Visit Family Practice [facility] [address] [place] [address] Anabel Ortiz MD [address] [place] [address] 02/19/2025 8:00 AM EDT Office Visit [facility] [address] [place] [address] Anabel Ortiz MD [address] [place] [address] Health Maintenance Due Date Last Done Comments [...] this encounter Medical Devices Implanted Type Area Direct Support Specialist Device Identifier Shelf Expiration Date Model / Serial / Lot Cath Thermodilution 6fr - [id number] Implanted:Qty: 1 on 04/20/[address] [facility] [place] [employer] [place] [id number] 11/13/2024 [id number] / / [id number] Valve Aortic Mech 21mm - [id number] - [id number] Implanted:Qty: 1 on 04/23/2023 by Zbigniew Linder MD at OR [facility] [place] N/A: Heart [employer] [id number] 09/04/2028 ONXACE-2 [id number] / [id number] Suture Steel 6 B&S19 M654g - [id number] Implanted:Qty: 8 on 04/23/2023 by Zbigniew Linder [...] and were consensually agreed upon. Care Teams Bottom Finisher Relationship Specialty Start Date End Date Anabel Ortiz MD [address] [place] [address] PCP - General Internal Medicine 07/25/24 documented as of this encounter
--- OUTSIDE RECORDS SUMMARY | 2024-11-14 13:23 | External Medical Summary | Summary of Care ---
Author Name Unknown Organization [facility] Address [address] [place] [address] Phone [phone] Care Team Providers Care Periodontist Name Role Phone Anabel Ortiz MD Primary Care Provider Reason for Visit * Reason Onset Date Comments Scan To Read 10/24/2024 Encounter Details Date Type Department Care Team (Late st Contact Info) Description 10/24/2024 Telephone Family Practice [facility] [address] [place] [address] Tom Andujar MD [address] [place] [address] Scan To Read Allergies Active Allergy Reactions [...] hemoglobin A1c goal of less than 7.0% ([facility]) USE UP TO 4 TIMES [...] PPD 05/06/2014,05/18/2009 Pneumococcal Conjugate Vacci ne, 20-valent ([id number]) 01/19/2022 Pneumococcal Polysaccharide PPV23 (Pneumovax) 08/22/2013 Seasonal [...] Industry Job Start Date Job End Date [employer] work Not on file Not on file [...] PM EDT Retinal Scan Imaging Derek Tristan [id number] Retinal Scan Interpretation: There is no retinopathy in both eyes Diabetes Retinal Imaging Care Plan: The retinal scan results are normal - I will forward this encounter to the Ophthalmology DM Letter Pool [[id number]], they will send a normal retinal scan [...] image. Patient prefers to be seen at [facility] if a follow-up appointment is needed. documented in this encounter Plan of Treatment Upcoming Encounters Date Type Department Care Team (Late st Contact Info) Description 10/27/2024 5:10 PM EDT Anticoagulation Pharmacy, [address] [place] [address] History of mechanical aortic valve replacement*; S/P aortic valve replacement 11/06/2024 7:05 AM EDT Laboratory Lab Mobile Phlebotomy [address] [place] [address] [facility] Mobile Home Draw [facility] [place] [address] 11/07/2024 6:00 AM EDT Anticoagulation Central[facility] Clinical [facility] Services, Sanket Watkins [address] [place] [address] [place] [address] [place] [address] 11/13/2024 3:20 PM EDT Office Visit Pharmacy, [facility] [address] [place] [address] [facility] [address] [place] [address] 01/14/2025 12:20 PM EDT Office Visit [facility] [address] [place] [address] Anabel Ortiz MD [address] [place] [address] 02/19/2025 8:00 AM EDT Office Visit [facility] [address] [place] [address] Anabel Ortiz MD [address] [place] [address] Health Maintenance Due Date Last Done Comments [...] this encounter Medical Devices Implanted Type Area Shipfitter Apprentice Device Identifier Shelf Expiration Date Model / Serial / Lot Cath Thermodilution 6fr - [id number] Implanted:Qty: 1 on 04/20/2023 at [facility] [employer] [id number] 11/13/2024 [id number] / / [id number] Valve Aortic Mech 21mm - [id number] - [id number] Implanted:Qty: 1 on 04/23/2023 by Zbigniew Linder MD at OR [facility] N/A: Heart [employer] [id number] 09/04/2028 ONXACE-2 [id number] / [id number] Suture Steel 6 B&S19 M654g - [id number] Implanted:Qty: 8 on 04/23/2023 by Zbigniew Linder MD at OR [facility] N/A: Sternum JNJ : [...] and were consensually agreed upon. Care Teams Periodontist Relationship Specialty Start Date End Date Anabel Ortiz MD [address] [place] [address] PCP - General Internal Medicine 07/25/24 documented as of this encounter
--- OUTSIDE RECORDS SUMMARY | 2024-11-14 13:23 | External Medical Summary | Summary of Care ---
Author Name Unknown Organization [facility] Address [address] [place] [address] Phone [phone] Care Team Providers Care Cut And Cover Line Worker Name Role Phone Anabel Ortiz MD Primary Care Provider Reason for Visit * Reason Onset Date Comments Appointment 10/28/2024 Encounter Details Date Type Department Care Team (Late st Contact Info) Description 10/28/2024 Telephone Family Practice [facility] [address] [place] [address] Anabel Ortiz MD [address] [place] [address] Appointment Allergies Active Allergy Reactions Criticality Noted [...] hemoglobin A1c goal of less than 7.0% ([facility]) USE UP TO 4 TIMES [...] Tablets by mouth in the morning. Per [facility] instructions. 60 Tablet 5 5 Active Clopidogrel [...] PPD 05/06/2014,05/18/2009 Pneumococcal Conjugate Vacci ne, 20-valent ([id number]) 01/19/2022 Pneumococcal Polysaccharide PPV23 (Pneumovax) 08/22/2013 Seasonal [...] Industry Job Start Date Job End Date [employer] work Not on file Not on file [...] EDT Call patient---please make sure he gave [employer] our direct fax #--[phone]. I can sign form if he calls [...] in because he got in contact with [employer] and the will be faxing over a medical certification form. Patient hasn't had power for about a week and his insulin may be going bad. The patient also mentioned that he is probably eating food that he probably should not be eating. If you can't reach the patient please call his son at [phone] documented in this encounter Plan of Treatment Upcoming Encounters Date Type Department Care Team (Late st Contact Info) Description 11/06/2024 7:05 AM EDT Laboratory Lab Mobile Phlebotomy [address] [place] [address] [facility] Mobile Home Draw [address] [place] [address] [place] [address] 11/07/2024 6:00 AM EDT Anticoagulation Centralized Clinical Pharmacy Services, Sanket Watkins [address] [place] [address] [place] [address] [place] [address] 11/13/2024 3:20 PM EDT Office Visit Pharmacy, [facility] [address] [address] [facility] [address] [place] [address] 01/14/2025 12:20 PM EDT Office Visit Family Practice [facility] [address] [place] [address] Anabel Ortiz MD [address] [place] [address] 02/19/2025 8:00 AM EDT Office Visit [facility] [address] [place] [address] Anabel Ortiz MD [address] [place] [address] Health Maintenance Due Date Last Done Comments [...] this encounter Medical Devices Implanted Type Area Shoe Dyer Device Identifier Shelf Expiration Date Model / Serial / Lot Cath Thermodilution 6fr - [id number] Implanted:Qty: 1 on [place] [facility] [employer] [place] [id number] 11/13/2024 [id number] / / [id number] Valve Aortic Mech 21mm - [id number] - [id number] Implanted:Qty: 1 on 04/23/2023 by Zbigniew Linder [place] [facility] [place]A: Heart [employer] [id number] 09/04/2028 ONXACE-2 [id number] / [id number] Suture Steel 6 B&S19 M654g - [id number] Implanted:Qty: 8 on 04/23/2023 by Zbigniew Linder [place] [facility] [place]A: Sternum JNJ : [employer] [...] and were consensually agreed upon. Care Teams Cut And Cover Line Worker Relationship Specialty Start Date End Date Anabel Ortiz MD [address] [place] [address] PCP - General Internal Medicine 07/25/24 documented as of this encounter
--- OUTSIDE RECORDS SUMMARY | 2024-11-14 13:24 | External Medical Summary | Summary of Care ---
Author Name Unknown Organization [facility] Address [address] [place] [address] Phone [phone] Care Team Providers Care Therapeutic Specialist Name Role Phone Anabel Ortiz MD Primary Care Provider Reason for Visit * Reason Onset Date Comments Advice 10/23/2024 Encounter Details Date Type Department Care Team (Late st Contact Info) Description 10/23/2024 Telephone Family Practice [facility] [address] [place] [address] Anabel Ortiz MD [address] [place] [address] Advice Allergies Active Allergy Reactions Criticality Noted Date Comments Erythromycin Abdominal pain Medium 07/06/1997 Stomach pain documented as of this encounter (statuses as of 10/24/2024) Medications MULTIVITAMINS PO TABS Take 1 Tablet [...] by mouth in the morning. Per [facility] instructions . 60 Tablet 5 10/03/2024 Active documented as of this encounter (statuses as of 10/24/2024) Active Problems Problem Noted Date Diagnosed Date [...] as of this encounter (statuses as of 10/24/2024) Resolved Problems Problem Noted Date Diagnosed Date [...] as of this encounter (statuses as of 10/24/2024) Immunizations Name Administration Dates Next Due COVID-19 mRNA, LNP-s, No Pre serve, 2-Dose Series (Moderna) 11/25/2020,10/28/2020 Hepatitis B, 20+ yrs 05/19/2015,11/19/2014,05/06 PPD 05/06/2014,05/18/2009 Pneumococcal Conjugate Vacci ne, 20-valent ([id number]) 01/19/2022 Pneumococcal Polysaccharide PPV23 (Pneumovax) 08/22/2013 Seasonal [...] No 10/16/2023 Does the household have a [facility] source of income? (Household - for ages [...] Industry Job Start Date Job End Date [employer] work Not on file Not on file [...] medical condition. I told pt that per [facility] policy, we are not to be doing these forms anymore. He will call them and ask them to send theform, but it is up the provider whether it is filled out, so power is turned back on, and he does not lose his insulin stored in refrigerator. Sending to Prkaash or Maeve to advise if they can [...] Letter needs to be faxed [facility] to [facility] . Please follow up. Thank you. documented in this encounter Plan of Treatment Upcoming Encounters Date Type Department Care Team (Late st Contact Info) Description 10/27/2024 5:10 PM EDT Anticoagulation Pharmacy, [facility] [address] [place] [address] [facility] [address] [place] [address] 11/13/2024 3:20 PM EDT Office Visit Pharmacy, [facility] [address] [address] [facility] [address] [place] [address] 01/14/2025 12:20 PM EDT Office Visit [facility] [address] [place] [address] Anabel Ortiz MD [address] [place] [address] 02/19/2025 8:00 AM EDT Office Visit [facility] [address] [place] [address] Anabel Ortiz MD [address] [place] [address] Health Maintenance Due Date Last Done Comments [...] this encounter Medical Devices Implanted Type Area Nurse Navigator Device Identifier Shelf Expiration Date Model / Serial / Lot Cath Thermodilution 6fr - [id number] Implanted:Qty: 1 on 04/20/[address] [facility] [employer] [place] [id number] 11/13/2024 [id number] / / [id number] Valve Aortic Mech 21mm - [id number] - [id number] Implanted:Qty: 1 on 04/23/2023 by Zbigniew Linder MD at OR [facility] N/A: Heart [employer] [id number] 09/04/2028 ONXACE-2 [id number] / [id number] Suture Steel 6 B&S19 M654g - [id number] Implanted:Qty: 8 on 04/23/2023 by Zbigniew Linder MD at OR [facility] N/A: Sternum JNJ : [employer] 12/07/2027 [...] and were consensually agreed upon. Care Teams Therapeutic Specialist Relationship Specialty Start Date End Date Anabel Ortiz MD [address] [place] [address] PCP - General Internal Medicine 07/25/24 documented as of this encounter
--- OUTSIDE RECORDS SUMMARY | 2024-11-14 13:24 | External Medical Summary | Summary of Care ---
Author Name Unknown Organization [facility] Address [address] [facility] [place] [address] Phone [phone] Care Team Providers Care Safety Patrol Officer Name Role Phone Anabel Ortiz MD Primary Care Provider Reason for Visit * Reason Onset Date Comments Hospital Follow-Up Pt here for a hospital f/u from [facility] for c-diff Hospital Follow-Up 10/24/2024 Encounter Details Date Type Department Care Team (Late st Contact Info) Description 10/24/2024 9:00 AM EDT Office Visit Family [facility] [address] [place] [id number] Tom Andujar MD [address] [place] [id number] Clostridium difficile colitis*; Diabetic ulcer of left foot associated with type 2 diabetes mellitus, unspecified part of foot, unspecified ulcer stage (HCC); Diabetic peripheral neuropathy (HCC); Personal history of alcoholism (HCC); Hospital discharge follow-up; Spinal stenosis of lumbar region with neurogenic claudication Allergies Active Allergy Reactions Criticality Noted Date [...] 5 01/22/20 18 Active ONETOUCH ULTRA BLUE STRPIndications: Type 2 diabetes mellitus with hemoglobin A1c goal of less than 7.0% ([facility]) USE UP TO 4 TIMES A DAY DIRECTED. 100 Strip 11/09/19 19 Active Acetaminophen 500 MG Oral Tablet (Tylenol) [...] 24 Active Aspirin 81 MG Oral Tablet ChewableIndicati [...] Tablets by mouth in the morning. Per [facility] instructions. 60 Tablet 5 10/04/19 25 Active Clopidogrel Bisulfate 75 MG Oral Tablet (pLAVix) Take 1 Tablet by mouth in the morning. 10/23/19 25 Active Cyclobenzaprine HCl 10 MG Oral Tablet (Flexeril) Take 0.5 Tablets by mouth in the morning and 0.5 Tablets before bedtime. 10/23/19 25 Active Metoprolol Succinate ER 50 MG Oral Tablet Extended Release 24 Hour (toPROL XL) Take 0.5 Tablets by mouth in the morning. 10/23/19 25 Active Insulin NPH Isophane & Regular (70-30) 100 UNIT/ML Subcutaneous Suspension (NovoLIN 70/30) Inject under the skin 2 times a day. 33 units before breakfast and 22 units before supper. 33 mL 5 10/25/19 25 Active NovoLIN 70/30 FlexPen (70-30) 100 UNIT/ML Suspension Pen-injectorIndi cations:Type 2 diabetes mellitus with hemoglobin A1c goal of less than 7.0% ([facility]) Inject 33 Units under the skin in the morning and 33 Units before bedtime. 10/22/19 25 025 Discontinued documented as of this encounter [...] PPD 05/06/2014,05/18/2009 Pneumococcal Conjugate Vacci ne, 20-valent ([id number]) 01/19/2022 Pneumococcal Polysaccharide PPV23 (Pneumovax) 08/22/2013 Seasonal [...] Industry Job Start Date Job End Date [employer] work Not on file Not on file Not on file documented as of this encounter Last Filed Vital Signs Vital Sign Reading Time Taken Comments Blood Pressure 116/60 10/24/2024 9:33 AM EDT Pulse 90 10/24/2024 9:33 AM EDT Temperature 36.6 °C (97.9 °F) 10/24/2024 9:33 AM ED T Respiratory Rate 16 10/24/2024 9:33 AM EDT Oxygen Saturation 96% 10/24/2024 9:33 AM EDT Inhaled Oxygen Concentration - - Weight 67.9 kg (149 lb 9.6 oz) 10/24/2024 9:33 A M EDT Height 175.3 cm (5' 9") 10/24/2024 9:33 AM EDT Body Mass Index 22.09 10/24/2024 9:33 AM EDT documented in this encounter Functional Status * [...] Assessment Author No 04/20/2023 2:13 AM EDT Sue Sebastian LPN documented as of this encounter Mental Status * Because of a physical, mental, or emotional condition, do you have serious difficulty concentrating, remembering, or making decisions? (5 years old or older) Answer Entry Date Author No 04/20/2023 2:13 AM EDT Jil Sebastian LPN documented in this encounter Patient Instructions * Patient Instructions* Mildays Ruvalcaba LPN - 10/24/2024 9:32 AM EDT Diabetes: Keeping Feet Healthy Inspect your feet every day for signs of a problem. Diabetes can damage nerves in your feet and cause neuropathy. This condition makes it hard for you to feel injuries or sore spots. Diabetes can also change blood flow, making it harder for small problems, like a blister, to heal properly. In fact, minor injuries can quickly become serious infections that send you to the hospital. Practice self-care to protect your feet and keep them healthy. Take Special Care Inspect your feet daily for problems such as redness, blisters, cracks, dry skin, or numbness. Use a mirror to see the bottoms of your feet. Or, ask for help. Manage your diabetes. Monitor and control your blood sugar. Take all your medications as prescribed. Avoid walking barefoot, even indoors. Wash your feet with warm water and mild soap. Dry well, especially between toes. Don’t treat corns or calluses yourself. Talk to your doctor or square dance caller (a doctor who specializes in foot care) if you need assistance trimming your toenails. Use moisturizing cream or lotion if you have dry skin, but don’t use it between toes. Don’t use heating pads on your feet. If you have neuropathy, you could get a burn and not feel it. Stop smoking. Smoking restricts blood flow and can make it harder for wounds to heal. Have Regular Checkups Foot problems can develop quickly. So be sure to follow your healthcare team’s schedule for regular checkups. During office visits, take off your shoes and socks as soon as you get in the exam room. Ask your healthcare provider to examine your feet for problems. This will make it easier to find and treat small skin irritations before they get worse. Regular checkups can also help keep track of the blood flow and feeling in your feet. If you have neuropathy, you may need to have checkups more often. Wear Proper Footwear Wearing proper footwear is very important. If areas of your feet have been damaged by too much pressure, your healthcare provider may recommend changing your footwear. In some cases, avoiding high heels or tight work boots may be all that’s needed. Or, your healthcare provider may recommend special shoes or custom inserts. These help protect your feet and keep existing irritations from getting worse. If you need special footwear, ask your healthcare provider if you qualify for Medicare’s diabetic shoe program. Make Sure Shoes and Socks Fit Any pair of shoes--new or old--should feel comfortable as soon as you put them on. There shouldn’t be any rubbing when you walk. Wear the right shoe for any activity. For instance, a running shoe is designed to keep your feet injury-free while jogging. Buy shoes at the end of the day, when your feet are larger. Make sure they provide support without feeling too loose. Make sure your socks fit, t oo. Wear soft, seamless, well-padded socks for activity. Cotton or microfiber socks are best to help to absorb sweat. To protect your feet, avoid shoes that are open-toed or open-heeled. If you have questions about what kinds of shoes and socks are best, talk to your healthcare team. Get Regular Exercise Regular exercise improves blood flow in your feet. It also increases foot strength and flexibility.Gentle exercises, like walking or riding a stationary bicycle, are best. You can also do special foot exercises. Just be sure to talk with your healthcare provider before starting any exercise program. Also mention if any exercise causes pain, redness, or other signs of foot problems. Note: If you have any kind of break in the skin of your foot or ankle, keep the area clean. Then call your doctor--especially if the area doesn’t appear to be healing. © 3477-1001 [employer], [address] [place] [address]. All rights reserved. This information is not intended as a substitute for professional medical care. Always follow your healthcare professional's instructions. documented in this encounter Progress Notes * Tom Andujar MD - 10/24/2024 9:49 AM EDT SUBJECTIVE: Derek Tristan is a 64 year old male. Chief Complaint Patient presents with Hospital Follow-Up Pt here for a hospital f/u from [facility] for c-diff Hospital Follow-Up Recent Admission: Patient was recently admitted to [facility] on 10/10/2024. The date of discharge was 10/20/2024. Discharge report received and reviewed. HPI: 64 yo male patient of Dr Ortiz who presented to ER with ongoing diarrhea. He has hx of C diff and was [facility] and 08/2024. Patient had C diff toxin + stool sample 09/11/2024 and was given course of PO dificid and discharged home on another presentation. Unfortunately he had not been taking his medications due to financial restraints. This is true for the majority of his medications. He was admitted for further treatment and care and hospital for 10 days, was treated with dificid there and his sx improved. His other medications were optimized as best they could be and his sugars were controlled. His insulin was adjusted and he is now on 70/30 - he willneed a new rx for this. To make matters worse his care was repossessed while he was in the hospital and yesterday his powerwas shut off at his home through [employer] - requesting that something be sent to them or a form completed so that this can be turned back on as quickly as possible. He states he will likely need to stay in a motel over the weekend. He is keeping his meds with ice in a cooler. He also has diabetic foot ulcer and has been getting wound care but it feels much better and is down to small scab - this is on his left heel. Patient Active Problem List Diagnosis Other allergic rhinitis Keratoderma, acquired Dermatophytosis of foot TENOSYNOVITIS FOOT-ANKLE Personal history of alcoholism ([facility]) HTN, goal below 130/80 Dyslipidemia, goal LDL below 100 Type 2 diabetes mellitus with hemoglobin A1c goal of less than 7.0% ([facility]) Gouty arthropathy Pulmonary nodules/lesions, multiple Current use of insulin ([facility]) Centrilobular emphysema ([facility]) ILD (interstitial lung disease) ([facility]) TIA (transient ischemic attack) Gastroesophageal reflux disease without esophagitis History of acute pancreatitis Uncontrolled type 2 diabetes mellitus with hyperglycemia ([facility]) Medical home patient encounter COPD, group B, by GOLD 2017 classification ([facility]) S/P aortic valve replacement Nonrheumatic aortic valve stenosis Encounter for dental examination Type 2 diabetes mellitus with diabetic mononeuropathy, with long-term current use of insulin ([facility]) History of mechanical aortic valve replacement Hip pain, left Diabetic peripheral neuropathy ([facility]) Aortoiliac occlusive disease ([facility]) Ambulatory dysfunction Diabetic ulcer of left foot ([facility]) Spinal stenosis, lumbar region with neurogenic claudication Current Outpatient Medications Medication Sig Dispense Refill ONETOUCH DELICA LANCETS 33G MISC TEST SUGAR DAILY 100 Each 5 ONETOUCH ULTRA BLUE STRP USE UP TO 4 TIMES A DAY DIRECTED. 100 Strip 5 Rosuvastatin Calcium 40 MG Oral Tablet (Crestor) Take 1 Tablet by mouth in the morning. 90 Tablet 0 Aspirin 81 MG Oral Tablet Chewable Chew 1 Tablet by mouth in the morning with food 72 Tablet 4 Warfarin Sodium 7.5 MG Oral Tablet (Coumadin) Take 1-2 Tablets by mouth in the morning. Per [facility] instructions. 60 Tablet 5 Clopidogrel Bisulfate 75 MG Oral Tablet (pLAVix) Take 1 Tablet by mouth in the morning. Cyclobenzaprine HCl 10 MG Oral Tablet (Flexeril) Take 0.5 Tablets by mouth in the morning and 0.5 Tablets before bedtime. Metoprolol Succinate ER 50 MG Oral Tablet Extended Release 24 Hour (toPROL XL) Take 0.5 Tablets by mouth in the morning. MULTIVITAMINS PO TABS Take 1 Tablet by mouth every morning. Calcium Carbonate Antacid 500 MG Oral Tablet Chewable Take 1 Tablet by mouth as needed. As needed Acetaminophen 500 MG Oral Tablet (Tylenol) Take [...] meal of the day.. 90 Capsule 1 Lisinopril 5 MG Oral Tablet (Prinivil) Take 1 Tablet by mouth in the morning. NovoLIN 70/30 FlexPen (70-30) 100 UNIT/ML Suspension Pen-injector Inject 33 Units under the skin inthe morning and 33 Units before bedtime. No current facility-administered medications for this visit. Current and discharge medications have been reconciled. Review of patient's allergies indicates: Allergen Reactions Erythromycin Abdominal pain Stomach pain OBJECTIVE: BP 116/60 (BP Site: Left Arm, BP Position: Sitting, BP Cuff Size: Regular) | Pulse 90 | Temp 97.9 °F (36.6 °C) (Tympanic) | Resp 16 | Ht 5' 9" (1.753 m) | Wt 149 lb 9.6 oz (67.9 kg) | SpO2 96% | BMI 22.09 kg/m² | BSA 1.82 m² PHYSICAL EXAM: BP 116/60 (BP Site: Left Arm, BP Position: Sitting, BP Cuff Size: Regular) | Pulse 90 | Temp 97.9 °F (36.6 °C) (Tympanic) | Resp 16 | Ht 5' 9" (1.753 m) | Wt 149 lb 9.6 oz (67.9 kg) | SpO2 96% | BMI 22.09 kg/m² | BSA 1.82 m² AAOx3 Normal affect NCAT/ PERRL Neck supple Throat clear RRR Lungs CTABL Abd soft +BS, no significant tenderness LLQ Ext warm and well perfused + b/l impaired sensation to touch c/w neuropathy Slow gait ASSESSMENT: Clostridium difficile colitis (Primary) - symptoms significantly improved. This was not really a treatment failure so much as an inability to get his meds. He was maintained in hospital for the full needed duration of medication tx and nowhas no symptoms. Diarrheal sx or recurrence of abd pain should have a very low threshold for testing/tx for C Diff colitis. Diabetic ulcer of left foot associated with type 2 diabetes mellitus, unspecified part of foot, unspecified ulcer stage (HCC) - non purulent, down to an eschar on DM foot exam. Had been to wound care for many visits. Care discussed with patient Diabetic peripheral neuropathy (HCC) - underlying Personal history of alcoholism ([facility]) Hospital discharge follow-up - DISCH MED RECON CUR MED LIS Other orders - TELEMEDICINE DIABETIC EYE - DIABETES FOOT EXAM - HEMOGLOBIN A1C; Future; Expected date: 10/24/2024 PLAN: Completed course of dificid. DM foot exam and DM eye exam done today. We did discuss that 70/30 is likely going to be his cheapest option in terms of insulin. He is comfortable using this. Bigger immediate issue is that his power was shut off at his home yesterday. I informed him that if I can get the form or information he needs to be sent to [facility] [employer] I will send in for him. I will also speak with our [facility] nurse/major case detective about his case - he needs a lot of help. I also encouraged himto start the process of applying for disability due to his combination of issues - T2DM, recurrent c diff colitis, lumbar radiculopathy. Follow up TBD. I spent a total of 40-54 minutes (exact time 42 mins) minutes on the date of service in preparation, delivery, and documentation of the care provided to Derek Tristan excluding any time spent inperformance of separately billed services. Tom Andujar MD * Miladys Ruvalcaba LPN - 10/24/2024 9:32 AM EDT Images from the original note were not included. The importance of having a yearly diabetic eye exam has been discussed with patient. Order and/or Referral placed along with patient instructions. Provider made aware. Miladys Ruvalcaba LPN Socks and Shoes Removed for Annual Diabetic Foot Screening RIGHT FOOT: No Reddened, Cracking, Or Open Areas Noted. RIGHT Dorsalis Pedis Pulse: Palpable RIGHT Posterior Tibial Pulse: Palpable RIGHT Monofilament:Patient reports feeling monofilament pressure on plantar surface of foot LEFT FOOT: No Reddened, Cracking or Open Areas Noted. LEFT Dorsalis Pedis Pulse: Palpable LEFT Posterior Tibial Pulse: Palpable LEFT Monofilament:Patient reports feeling monofilament pressure on plantar surface of foot Pt reports some numbness in the left foot. Healing wound on left heal has a 0.3x 0.4 scab . Do you need diabetic shoes: No DM Foot Exam completed today. Provider aware. Miladys Ruvalcaba LPN Diabetic Retinopathy: Evaluating Your Eyes Diabetic retinopathy is a condition that happens when diabetes damages blood vessels in the rear ofthe eye. It can lead to vision loss. To help catch it early, have a complete dilated eye exam at least once a year. During the exam, the eye healthcare provider will review your medical history, examine your eyes, and check your vision. Women who are and have pre-existing type 1 or type 2 diabetes have an increased risk of retinopathy. Women with diabetes should have an eye exam before or in the first trimester. They should continue to be monitored every trimester and for 1 year after delivery, depending on the severity of the retinopathy. The retina is the light-sensitive part of the eye that allows you to see. High blood sugar can damage blood vessels of the retina and cause them to leak or bleed. This damage can lead to abnormal blood vessel growth. This condition is called diabetic retinopathy. You may not have symptoms early in the disease. Later, there may be floaters, blurred vision, or poor night vision. There may also be partial or complete vision loss. Early cases of diabetic retinopathy can be treated by carefully controlling blood sugar, blood pressure, and cholesterol. Surgery or laser treatments may help restore lost vision. Laser surgery can shrink abnormal blood vessels or close ones that are leaking. Medicines injected in the eye can help decrease swelling of the retina. Home care Take all medicines, including insulin or oral diabetic medicine, exactly as prescribed. Follow the diet advised by your healthcare provider. If you have high cholesterol, follow a low-fat, low-cholesterol diet. Monitor blood sugars as advised. Try to achieve your ideal weight. If you smoke, quit smoking. Tobacco use worsens the effect of diabetes on your blood vessels. If you have high blood pressure, consider buying an automatic blood pressure machine. These are available at most pharmacies. Use this to monitor your blood pressure. Report your blood pressure readings to your healthcare provider. Exercise regularly. Follow-up care Follow up with your healthcare provider, or as advised. You must have a complete eye exam at least once a year, more often if needed. Untreated diabetic retinopathy can lead to complete loss of vision. Occupational therapists can help you adapt to any vision loss you have, including learning techniques to safely administer insulin. When to seek medical advice Call your healthcare provider right away if any of these occur. Increasing blurriness or any sudden changes in your vision Sudden flashes of light inside your eye New floaters (small dots or strings that seem to be moving across your field of vision) Eye pain, redness, or discharge from your eyelid New dark spots appearing in your field of vision Halos around lights Dimness of vision Partial or complete loss of vision Women with diabetes should have a complete eye exam before becoming , or as soon as possible when they find out they are . Retinopathy sometimes worsens during . Your eye exam Your eye healthcare provider uses an eye chart and other tools to check your vision. Then he or sheexamines your eyes for signs of disease. You are given eye drops to widen (dilate) your pupils. Youmay have one or more of the following tests: Tonometry to measure fluid pressure inside the eye. Slit lamp exam to allow the healthcare provider to view the structures of your eye. Ultrasound to create an image of the eye using sound waves. Ultrasound may be used if blood is found in the clear gel that fills the eye (vitreous). Ocular coherence tomography (OCT) to create an image of the retina using light waves. This shows ifthere is fluid leaking into certain parts of the eye. It can also measure the thickness of the retina. Fluorescein angiography This test may be done to check the health of the inside lining of the eye (retina). It also checks the tiny blood vessels (capillaries) that carry blood to the retina. During the test: Photographs are taken of the retina. A dye is then injected into the bloodstream through the arm or hand. The dye travels to the capillaries in the eye. More photographs are taken of the retina. The dye causes the capillaries to stand out on the photographs. You may feel brief nausea during the procedure. For a few hours after the test, your skin, eyes, and urine may appear yellow. Talk with your healthcare provider for more information about this test. Date Last Reviewed: 12/08/2015 © 0626-8006 [employer]. [address] [place] [address]. All rights reserved. This information is not intended as a substitute for professional medical care. Always follow your healthcare professional's instructions. Hemoglobin a1c ordered today. Provider aware. Miladys Ruvalcaba LPN documented in this encounter Plan of Treatment Upcoming Encounters Date Type Department Care Team (Late st Contact Info) Description 10/27/2024 5:10 PM EDT Anticoagulation Pharmacy, [facility] [address] [phone] [facility] [address] [address] 11/13/2024 3:20 PM EDT Office Visit Pharmacy, [facility] [address] [address] [facility] [address] [place] [address] 01/14/2025 12:20 PM EDT Office Visit [facility] [address] [place] [address] Anabel Ortiz MD [address] [place] [id number] 02/19/2025 8:00 AM EDT Office Visit [facility] [address] [address] Anabel Ortiz MD [address] [place] [id number] Scheduled Orders Name Type Priority Associated Diagnoses Orde r Schedule HEMOGLOBIN A1C Lab Routine Expected: 10/24/2024 (Approximate), Expires: 11/23/2025 Health Maintenance Due Date Last Done Comments [...] this encounter Medical Devices Implanted Type Area Endoscope Technician Device Identifier Shelf Expiration Date Model / Serial / Lot Cath Thermodilution 6fr - [id number] Implanted:Qty: 1 on 04/20/2023 at [facility] [employer] [id number] 11/13/2024 [id number] / / [id number] Valve Aortic Mech 21mm - [id number] - [id number] Implanted:Qty: 1 on 04/23/2023 by Zbigniew Linder MD at OR [facility] N/A: Heart [employer] [id number] 09/04/2028 ONXACE-2 [id number] / [id number] Suture Steel 6 B&S19 M654g - [id number] Implanted:Qty: 8 on 04/23/2023 by Zbigniew Linder MD at OR [facility] N/A: Sternum JNJ : [employer] 12/07/2027 [id number] / / [id number] documented as of this encounter Procedures Procedure Name Priority Date/Time Associated Diagnosis Comments TELEMEDICINE DIABETIC EYE Routine 10/24/2024 documented in this encounter Results * TELEMEDICINE DIABETIC EYE (10/24/2024) 10/24/2024 Tom Andujar MD DIGITAL PHOTOGRAPHY Fi nal Result documented in this encounter Visit Diagnoses Diagnosis Clostridium difficile colitis- Primary Intestinal infection due to clostridium difficile Diabetic ulcer of left foot associated with type 2 diabetes mellitus, unspecified part of foot, unspecified ulcer stage (HCC) Diabetic peripheral neuropathy (HCC) Type II or unspecified type diabetes mellitus with neurological manifestations, not stated as uncontrolled Personal history of alcoholism (HCC) Personal history of alcoholism Hospital discharge follow-up Other follow-up examination Spinal stenosis of lumbar region with neurogenic claudication Spinal stenosis, lumbar region, with neurogenic claudication [...] and were consensually agreed upon. Care Teams Safety Patrol Officer Relationship Specialty Start Date End Date Anabel Ortiz MD [address] [facility] [place] [id number] PCP - General Internal Medicine 07/25/24 documented as of this encounter
--- OUTSIDE RECORDS SUMMARY | 2024-11-14 13:24 | External Medical Summary | Summary of Care ---
Author Name Unknown Organization [facility] Address [address] [place] [facility] [place] [place] [address] Phone [phone] Care Team Providers Care Assistant Engineer Name Role Phone Anabel Ortiz MD Primary Care Provider Reason for Visit * Reason Comments Dosage Adjustment Via Phone (anticoag Cl inic) Encounter Details Date Type Department Care Team (Latest Contact Info) Description 10/24/2024 7:00 AM EDT Anticoagulation Pharmacy, [facility] [address] [facility] [place] [address] [facility] [address] [facility] [place] [address] History of mechanical aortic valve replacement*; S/P [...] A1c goal of less than 7.0% ([facility]) USE UP TO 4 TIMES A DAY [...] Tablets by mouth in the morning. Per [facility] instructions. 60 Tablet 5 5 Active Clopidogrel [...] PPD 05/06/2014,05/18/2009 Pneumococcal Conjugate Vacci ne, 20-valent ([id number]) 01/19/2022 Pneumococcal Polysaccharide PPV23 (Pneumovax) 08/22/2013 Seasonal [...] Industry Job Start Date Job End Date [employer] work Not on file Not on [...] documented in this encounter Progress Notes * Larry Miguel RPh - 10/24/2024 8:40 AM EDT Patient Phone Numbers 8:44 AM - Called primary, no answer, VM full 10:34 AM - Called primary, no answer, VM full 10:36 AM - Called secondary which is work phone, capsule maker transferred me to patient supervisor riveting line, which then went to , did not leave since it is at patient's workplace Will place on patient schedule to call and review result/plan and schedule next INR Medication Therapy Disease Management - Anticoagulation Patient: Derek Tristan | : 1960 Subjective Contacts Contact Date/Time Type Contact Phone/Fax 10/24/2024 05:03 AM EDT Email SMS () [phone] Patient not accepting updates Patient-Reported Symptoms: Objective Current Warfarin Dose As of 10/24/2024 Warfarin maintenance plan: 15 mg (7.5 mg x 2) every Sat; 7.5 mg (7.5 mg x 1) all other days INR Result As of 10/24/2024 INR goal: 1.5-2.0 INR used for dosing: -- Assessment & Plan Warfarin Plan As of 10/24/2024 Full warfarin instructions: 15 mg every Sat; 7.5 mg all other days Next INR check: -- Repeat PT/INR in TBD - Anticipate 1-2 weeks Additional Dosing Information: Larry Miguel RPh Clinical Pharmacist 10/24/2024, 8:40 AM documented in this encounter Plan of Treatment Upcoming Encounters Date Type Department Care Team (Late st Contact Info) Description 10/27/2024 5:10 PM EDT Anticoagulation Pharmacy, [facility] [place] [address] [facility] [place] [address] 11/13/2024 3:20 PM EDT Office Visit Pharmacy, [facility] [place] [address] [facility] [address] [place] [address] 01/14/2025 12:20 PM EDT Office Visit [facility] [address] [place] [address] Anabel Ortiz MD [address] [place] [address] 02/19/2025 8:00 AM EDT Office Visit [facility] [address] [place] [address] Anabel Ortiz MD [address] [place] [address] Health Maintenance Due Date Last Done Comments [...] this encounter Medical Devices Implanted Type Area Acute Care Nurse Practitioner Device Identifier Shelf Expiration Date Model / Serial / Lot Cath Thermodilution 6fr - [id number] Implanted:Qty: 1 on 04/20/2023 at [facility] [place] [employer] [id number] 11/13/2024 [id number] / / [id number] Valve Aortic Mech 21mm - [id number] - [id number] Implanted:Qty: 1 on 04/23/2023 by Zbigniew Linder MD at [place] [facility] [place] N/A: Heart [employer] [id number] 09/04/2028 ONXACE-2 [id number] / [id number] Suture Steel 6 B&S19 M654g - [id number] Implanted:Qty: 8 on 04/23/2023 by Zbigniew Linder [...] and were consensually agreed upon. Care Teams Assistant Engineer Relationship Specialty Start Date End Date Anabel Ortiz MD [address] [place] [address] PCP - General Internal Medicine 07/25/24 documented as of this encounter"
--- OUTSIDE RECORDS SUMMARY | 2024-11-14 13:24 | External Medical Summary | Summary of Care ---
Author Name Unknown Organization [facility] Address [address] [place] [facility] [place] [address] Phone [phone] Care Team Providers Care Freelance Art Director Name Role Phone Anabel Ortiz MD Primary Care Provider Reason for Visit * Reason Comments Dosage Adjustment Via Phone (anticoag Cl inic) Encounter Details Date Type Department Care Team (Latest Contact Info) Description 10/27/2024 5:10 PM EDT Anticoagulation Pharmacy, [facility] [address] [facility] [place] [address] [facility] [address] [facility] [place] [address] History of mechanical aortic valve replacement*; S/P [...] A1c goal of less than 7.0% ([facility]) USE UP TO 4 [...] Tablets by mouth in the morning. Per [facility] instructions. 60 Tablet 5 5 Active [...] PPD 05/06/2014,05/18/2009 Pneumococcal Conjugate Vacci ne, 20-valent ([id number]) 01/19/2022 Pneumococcal Polysaccharide PPV23 (Pneumovax) 08/22/2013 Seasonal [...] Industry Job Start Date Job End Date I Do [employer] work Not on file Not on file [...] Progress Notes * Amna Ruffin RPh - 10/27/2024 10:52 AM EDT Medication Therapy Disease Management - Anticoagulation Patient: Derek Tristan | : 1960 Subjective Patient-Reported Symptoms: Patient Findings Negatives: Signs/symptoms of thrombosis, Signs/symptoms of bleeding, Change in health, Change in alcohol use, Change in activity, Upcoming invasive procedure, Missed doses, Extra doses, Change in medications, Change in diet/appetite, Bruising Objective Current Warfarin Dose As of 10/27/2024 Warfarin maintenance plan: 15 mg (7.5 mg x 2) every Sat; 7.5 mg (7.5 mg x 1) all other days INR Result As of 10/27/2024 INR goal: 1.5-2.0 INR used for dosing: -- Assessment & Plan Warfarin Plan As of 10/27/2024 Full warfarin instructions: 15 mg every Sat; 7.5 mg all other days Next INR check: 11/06/2024 Repeat PT/INR in 2 week(s) Weekly dose: not changed Additional Dosing Information: I spent a total of 10-19 minutes (exact time 10 mins) on the date of service in preparation, delivery, and documentation of the care provided to Derek Tristan excluding any time spent in the performance of separately billed services or time spent by another provider/QHP. Amna Ruffin [facility] Clinical Pharmacist 10/27/2024, 10:54 AM documented in this encounter Plan of Treatment Upcoming Encounters Date Type Department Care Team (Late st Contact Info) Description 11/06/2024 7:05 AM EDT Laboratory Lab Mobile Phlebotomy [address] [place] [address] [facility] Mobile Home Draw [address] [place] [address] [place] [address] 11/07/2024 6:00 AM EDT Anticoagulation Centralized Clinical Pharmacy Services, Sanket Watkins [address] [place] [address] [place] [address] [facility], [address] [place] [address] 11/13/2024 3:20 PM EDT Office Visit Pharmacy, [facility] [address] [place] [address] [facility] [place] [address] [place] [address] 01/14/2025 12:20 PM EDT Office Visit [facility] [address] [place] [address] Anabel Ortiz MD [address] [place] [address] 02/19/2025 8:00 AM EDT Office Visit [facility] [address] [place] [address] Anabel Ortiz MD [address] [place] [address] Health Maintenance Due Date Last Done Comments [...] this encounter Medical Devices Implanted Type Area Merchandise Support Associate Device Identifier Shelf Expiration Date Model / Serial / Lot Cath Thermodilution 6fr - [id number] Implanted:Qty: 1 on 04/20/2023 at [facility] [place] [employer] [id number] 11/13/2024 [id number] / / [id number] Valve Aortic Mech 21mm - [id number] - [id number] Implanted:Qty: 1 on 04/23/2023 by Zbigniew Linder MD at [place] [facility] [place] N/A: Heart [employer] [id number] 09/04/2028 ONXACE-2 [id number] / [id number] Suture Steel 6 B&S19 M654g - [id number] Implanted:Qty: 8 on 04/23/2023 by Zbigniew Linder MD at [place] [facility] [place] N/A: Sternum JNJ : [employer] 12/07/2027 [...] and were consensually agreed upon. Care Teams Freelance Art Director Relationship Specialty Start Date End Date Anabel Ortiz MD [address] [facility] [place] [address] PCP - General Internal Medicine 07/25/24 documented as of this encounter"
--- OUTSIDE RECORDS SUMMARY | 2024-11-14 13:24 | External Medical Summary | Summary of Care ---
Author Name Unknown Organization [facility] Address [address] [facility] [address] Phone [phone] Care Team Providers Care Interventional Neuroradiologist Name Role Phone Anabel Ortiz MD Primary Care Provider Reason for Visit * Reason Onset Date Comments Hospital Follow-Up 10/21/2024 [facility] 10/20 LAURA call Encounter Details Date Type Department Care Team (Late st Contact Info) Description 10/21/2024 Telephone Family Practice [facility] [address] [place] [address] Lauryn Kothari, RN Hospital Follow-Up ([facility] 10/20 LAURA call) Allergies Active Allergy Reactions Criticality Noted Date Comments Erythromycin 07/06/1997 Stomach pain documented as of this encounter (statuses as of 10/21/2024) Medications MULTIVITAMINS PO TABS Take 1 Tablet by mouth every morning. Active Calcium Carbonate Antacid 500 MG Oral Tablet Chewable Take 1 Tablet by mouth as needed. As needed 06/07/20 15 Active ONETOUCH DELICA LANCETS 33G MISC TEST SUGAR DAILY 100 Each 5 01/22/20 18 Active ONETOUCH ULTRA BLUE STRPIndications :Type 2 diabetes mellitus with hemoglobin A1c goal of less than 7.0% ([facility]) USE UP TO 4 TIMES A DAY DIRECTED. 100 Strip 5 11/09/19 19 Active Acetaminophen 500 MG Oral [...] Tablets by mouth in the morning. Per [facility] instructions . 60 Tablet 5 10/04/19 25 Active NovoLIN 70/30 FlexPen (70-30) 100 UNIT/ML Suspension Pen-injectorInd ications:Type 2 diabetes mellitus with hemoglobin A1c goal of less than 7.0% (HCC) Inject 33 Units under the skin in the morning and 33 Units before bedtime. 10/22/19 25 Active Clopidogrel Bisulfate 75 MG Oral Tablet (pLAVix)Indicat ions:TIA (transient ischemic attack) Take 1 Tablet (75 mg) by mouth in the morning. In the morning.. 30 Tablet 11 06/05/20 22 025 Discontinued NovoLIN 70/30 FlexPen (70-30) 100 UNIT/ML Suspension Pen-injectorInd ications:Type 2 diabetes mellitus with hemoglobin A1c goal of less than 7.0% (HCC) Inject 33 units under the skin at breakfast and 22 units at dinner. 60 mL 3 08/13/19 25 025 Discontinued Pregabalin 100 MG Oral Capsule (Lyrica)Indicat ions:Diabetic peripheral neuropathy (HCC) Take 1 Capsule by mouth in the morning and 1 Capsule before bedtime. 60 Capsule 2 08/13/19 25 025 Discontinued(Md dication List Clean Up) documented as of this encounter (statuses as of 10/21/2024) Active Problems Problem Noted Date Diagnosed Date [...] as of this encounter (statuses as of 10/21/2024) Resolved Problems Problem Noted Date Diagnosed Date [...] as of this encounter (statuses as of 10/21/2024) Immunizations Name Administration Dates Next Due COVID-19 mRNA, LNP-s, No Pre serve, 2-Dose Series (Moderna) 11/25/2020,10/28/2020 Hepatitis B, 20+ yrs 05/19/2015,11/19/2014,05/06 PPD 05/06/2014,05/18/2009 Pneumococcal Conjugate Vacci ne, 20-valent ([id number]) 01/19/2022 Pneumococcal Polysaccharide PPV23 (Pneumovax) 08/22/2013 Seasonal [...] Industry Job Start Date Job End Date [employer] work Not on file Not on file [...] Telephone Encounter - Lauryn Kothari RN - 10/21/2024 10:59 AM EDT Transitions of Care Note Reason for Referral:Recent Admission Phone visit for follow up: LAURA Admitted to: [facility], Date: 10/10 Discharged to: home, Date: 10/20 Diagnosis driving hospitalization: C diff colitis Source/Contact: Patient SUBJECTIVE Consent: Verbal consent for review of hospital discharge: Yes REVIEW OF SYSTEMS Patient/Other Reports: Current patient/caregiver problems or concerns: pt has a lot of social needs. The hospital has given him a voucher for 30 days of free insulin and has set him up with the [facility] for additional benefits. CV: Denies problems Pulmonary: Denies problems Chills/Sweats/Fever:Denies chills/sweats Denies fever Appetite:Denies problems such as nausea, vomiting, burning, decreased appetite Current diet: as before Bowel: denies problems Bladder: denies problems Wound (If applicable): N/A Pain:Denies Sleep:Denies problems FUNCTIONAL STATUS: ADL'S: Needs Assistance With:N/A as pt is independent IADL'S: Needs Assistance With:N/A as pt is independent Cognitive and Mental Health: denies problems, alert and oriented x 3, and able to communicate, understand instructions, process information. MEDICATION RECONCILIATION Medications: Discharge med list reviewed with patient or caregiver Changed medication(s) since hospitalization insulin dose Discontinued medication(s) since hospitalization- lyrical and plavix Reports all medications taken as prescribed. Denies side effects ASSESSMENT Medication Risk Assessment: pt has a hx of being very non compliant with medications Discharge instructions available for review? Yes PLAN Symptom Monitoring Interventions:Member/caregiver education - signs and symptoms to contact PrimaryCare (DO NOT DELETE-Three turcios symptoms patient is to report to PCP) 1. Return of diarrhea 2. Abdominal pain 3. Hypo/hyperglycemia Parts Sales AssociateRate And Cost Analyst of Care interventions/Action Plan: Medication reconciliation and 5 - 7 day follow-up with PCP in place - Date: 10/24 Educated on role of LAURA completed with patient/caregiver. Educated patient/caregiver on patient right to have input on LAURA plan of care. Verification of Home Health/DME if indicated: No Identified Care Gaps: Yes Care Gaps closed [...] and agrees with plan. Lauryn Kothari RN * Telephone Encounter - Mae Breen OSA - 10/21/2024 10:52 AM EDT Pt returning call, transferred to number provided in message. * Telephone Encounter - Lauryn Kothari RN - 10/21/2024 10:30 AM EDT Transitions of Care Note Reason for Referral:Recent Admission Phone visit for follow up: LAURA Admitted to: [facility], Date: 10/10 Discharged to: home, Date: 10/20 Diagnosis driving hospitalization: C diff colitis Message left on voicemail. If the pt reaches the call center please transfer them to pr at [phone]. Thank you. Attempted Phone Call First Attempt Call Outcome Left Voicemail/Message documented in this encounter Plan of Treatment Upcoming Encounters Date Type Department Care Team (Latest Contact Info) Description 10/21/2024 5:10 PM EDT Anticoagulation Pharmacy, [facility] [address] [place] [address] [facility] [address] [facility] [place] [address] History of mechanical aortic valve replacement*; S/P aortic valve replacement 10/24/2024 9:00 AM EDT Office Visit [facility] [address] [place] [address] Tom Randall MD [address] [place] [address] 11/13/2024 3:20 PM EDT Office Visit Pharmacy, [facility] [address] [place] [address] [facility] [address] [place] [address] 01/14/2025 12:20 PM EDT Office Visit [facility] [address] [place] [address] Anabel Ortiz MD [address] [place] [address] Health Maintenance Due Date Last Done Comments [...] this encounter Medical Devices Implanted Type Area Mix Crusher Operator Device Identifier Shelf Expiration Date Model / Serial / Lot Cath Thermodilution 6fr - [id number] Implanted:Qty: 1 on 04/20/2023 at [facility] [place] [employer] [id number] 11/13/2024 [id number] / / [id number] Valve Aortic Mech 21mm - [id number] - [id number] Implanted:Qty: 1 on 04/23/2023 by Zbigniew Linder MD at [place] [facility] [place] N/A: Heart [employer] [id number] 09/04/2028 ONXACE-2 [id number] / [id number] Suture Steel 6 B&S19 M654g - [id number] Implanted:Qty: 8 on 04/23/2023 by Zbigniew Linder MD at [place] [facility] [place] N/A: Sternum JNJ : [employer] 12/07/2027 M654G / / [id number] documented as of this encounter Visit Diagnoses Diagnosis History of mechanical aortic valve replacement- Primary Heart valve replaced by other means S/P aortic valve replacement Heart valve replaced by other means Type 2 diabetes mellitus with hemoglobin A1c goal of less than 7.0% ([facility]) documented in this encounter Advance Directives * [...] were consensually agreed upon. Care Teams Interventional Neuroradiologist Relationship Specialty Start Date End Date Anabel Ortiz MD [address] [facility] [place] [address] PCP - General Internal Medicine 07/25/24 documented as of this encounter
--- OUTSIDE RECORDS SUMMARY | 2024-11-14 13:24 | External Medical Summary | Summary of Care ---
Author Name Unknown Organization [facility] Address [address] [facility] [address] Phone [phone] Care Team Providers Care Deep Well Contractor Name Role Phone Anabel Ortiz MD Primary Care Provider Reason for Visit * Reason Onset Date Comments Hospital Follow-Up 10/21/2024 [facility] 10/20 LAURA call Encounter Details Date Type Department Care Team (Late st Contact Info) Description 10/21/2024 Telephone Family Practice [facility] [address] [place] [address] Lauryn Kothari, RN Hospital Follow-Up ([facility] 10/20 LAURA call) Allergies Active Allergy Reactions Criticality Noted Date Comments Erythromycin 07/06/1997 Stomach pain documented as of this encounter (statuses as of 10/22/2024) Medications MULTIVITAMINS PO TABS Take 1 Tablet [...] than 7.0% ([facility]) USE UP TO 4 TIMES A DAY [...] Tablets by mouth in the morning. Per [facility] instructions . 60 Tablet 5 10/04/19 25 [...] bedtime. 60 Capsule 2 08/13/19 25 025 Discontinued(Dc dication List Clean Up) documented as of this encounter (statuses as of 10/22/2024) Active Problems Problem Noted Date Diagnosed Date [...] as of this encounter (statuses as of 10/22/2024) Resolved Problems Problem Noted Date Diagnosed Date [...] as of this encounter (statuses as of 10/22/2024) Immunizations Name Administration Dates Next Due COVID-19 mRNA, LNP-s, No Pre serve, 2-Dose Series (Moderna) 11/25/2020,10/28/2020 Diptheria/Tetanus (Adult) 08/06/1992 Hepatitis B, 20+ yrs 05/19/2015,11/19/2014,05/06 PPD 05/06/2014,05/18/2009 Pneumococcal Conjugate Vacci ne, 20-valent ([id number]) 01/19/2022 Pneumococcal Polysaccharide PPV23 (Pneumovax) 08/22/2013 Seasonal [...] Industry Job Start Date Job End Date [employer] work Not on file Not on file [...] encounter Miscellaneous Notes * Telephone Encounter - Davida Hernandez OSA - 10/22/2024 12:01 PM EDT Reason for patient's call: pt returning call to clinic, lost call during transfer, left vm for pt to return call, but also sending TE update for clinic to reach back out to patient. * Telephone Encounter - Lauryn Kothari RN - 10/21/2024 10:59 AM EDT Transitions of Care Note Reason for Referral:Recent Admission Phone visit for follow up: LAURA Admitted to: [facility], Date: 10/10 Discharged to: home, Date: 10/20 [...] of diarrhea 2. Abdominal pain 3. Hypo/hyperglycemia Investigative WriterQuality Systems Technician of Care interventions/Action Plan: Medication reconciliation and [...] visit for follow up: LAURA Admitted to: [facility], Date: 10/10 Discharged to: home, Date: 10/20 Diagnosis driving hospitalization: C diff colitis Message left on voicemail. If the pt reaches the call center please transfer them to nh at [phone]. Thank you. Attempted Phone Call First Attempt Call Outcome Left Voicemail/Message documented in this encounter Plan of Treatment Upcoming Encounters Date Type Department Care Team (Late st Contact Info) Description 10/23/2024 7:10 AM EDT Laboratory Lab Mobile Phlebotomy [address] [place] [address] [place], [facility] Mobile Home Draw [address] [place] [address] [place] [address] 10/23/2024 5:30 PM EDT Anticoagulation Pharmacy, [facility] [address] [place] [address] [facility] [address] [place] [address] 10/24/2024 9:00 AM EDT Office Visit Family Practice [facility] [address] [place] [address] Tom Randall MD [address] [place] [address] 11/13/2024 3:20 PM EDT Office Visit Pharmacy, [facility] [address] [place] [address] [facility] [address] [place] [address] 01/14/2025 12:20 PM EDT Office Visit Family Practice [facility] [address] [place] [address] Anabel Ortiz MD [address] [place] [address] Health Maintenance Due Date Last Done Comments [...] this encounter Medical Devices Implanted Type Area Bench Assembler Operator Device Identifier Shelf Expiration Date Model / Serial / Lot Cath Thermodilution 6fr - [id number] Implanted:Qty: 1 on 04/20/2023 at [facility] [place] [employer] [id number] 11/13/2024 [id number] / / [id number] Valve Aortic [facility] 21mm - [id number] - [id number] Implanted:Qty: 1 on 04/23/2023 by Zbigniew Linder MD at [place] [facility] [place] N/A: Heart [employer] [id number] 09/04/2028 ONXACE-2 1 / [id number] / [id number] Suture Steel 6 B&S19 M654g - [id number] Implanted:Qty: 8 on 04/23/2023 by Zbigniew Linder MD at [place] [facility] N/A: Sternum JNJ : [employer] 12/07/2027 M654G / / [id number] documented as of this encounter Visit Diagnoses Diagnosis Type 2 diabetes mellitus with hemoglobin A1c goal of less than 7.0% (HCC) documented in this encounter Advance Directives * [...] and were consensually agreed upon. Care Teams Deep Well Contractor Relationship Specialty Start Date End Date Anabel Ortiz MD [address] [place] [address] PCP - General Internal Medicine 07/25/24 documented as of this encounter
--- OUTSIDE RECORDS SUMMARY | 2024-11-14 13:24 | External Medical Summary | Summary of Care ---
Author Name Unknown Organization [facility] Address [address] [place] [facility] [place] [address] Phone [phone] Care Team Providers Care Bead Wrapper Name Role Phone Anabel Ortiz MD Primary Care Provider Reason for Visit * Reason Onset Date Comments Follow Up 10/22/2024 Patient calling in Encounter Details Date Type Department Care Team (Late st Contact Info) Description 10/22/2024 Telephone Family Practice [facility] [address] [place] [address] Anabel Ortiz MD [address] [place] [address] Follow Up (Patient calling in) Allergies Active Allergy Reactions Criticality Noted Date Comments Erythromycin 07/06/1997 Stomach pain documented as of this encounter (statuses as of 10/23/2024) Medications MULTIVITAMINS PO TABS Take 1 Tablet [...] Tablets by mouth in the morning. Per [facility] instructions . 60 Tablet 5 10/03/2024 Active NovoLIN 70/30 FlexPen (70-30) 100 UNIT/ML Suspension Pen-injectorIndi cations:Type 2 diabetes mellitus with hemoglobin A1c goal of less than 7.0% (HCC) Inject 33 Units under the skin in the morning and 33 Units before bedtime. 10/21/2024 Active documented as of this encounter (statuses as of 10/23/2024) Active Problems Problem Noted Date Diagnosed Date [...] as of this encounter (statuses as of 10/23/2024) Resolved Problems Problem Noted Date Diagnosed Date [...] as of this encounter (statuses as of 10/23/2024) Immunizations Name Administration Dates Next Due COVID-19 mRNA, LNP-s, No Pre serve, 2-Dose Series (Moderna) 11/25/2020,10/28/2020 Hepatitis B, 20+ yrs 05/19/2015,11/19/2014,05/06 PPD 05/06/2014,05/18/2009 Pneumococcal Conjugate Vacci ne, 20-valent (Isrmomr57) 01/19/2022 Pneumococcal Polysaccharide PPV23 (Pneumovax) 08/22/2013 Seasonal [...] 10/16/2023 Does the household have a re lar source of income? (Household - for ages [...] Industry Job Start Date Job End Date [employer] work Not on file Not on file Not on file documented as of this encounter Functional Status * Are you deaf or do you have serious difficulty hearing? Answer Date of Assessment Author No 04/20/2023 2:13 AM EDT Jil Sebastian, LEAD FURNACE OPERATOR * Are you blind or do you have serious difficulty seeing, even when wearing glasses? Answer Date of Assessment Author No 04/20/2023 2:13 AM EDT Jil Sebastianole L, LEAD FURNACE OPERATOR * Do you have serious difficulty walking or climbing stairs? (5 years old or older) Answer Date of Assessment Author No 04/20/2023 3:19 PM EDT Sulema Chandler RN * Do you have difficulty dressing or bathing? (5 years old or older) Answer Date of Assessment Author No 04/20/2023 2:13 AM EDT Jil Sebastianole L, LEAD FURNACE OPERATOR * Because of a physical, mental, or emotional condition, do you have difficulty doing errands alone such as visiting a doctor’s office or shopping? (15 years old or older) Answer Date of Assessment Author No 04/20/2023 2:13 AM EDT Jil Sebastianole L, LEAD FURNACE OPERATOR documented as of this encounter Mental Status * Because of a physical, mental, or emotional condition, do you have serious difficulty concentrating, remembering, or making decisions? (5 years old or older) Answer Entry Date Author No 04/20/2023 2:13 AM EDT Jil Sebastianole L, LEAD FURNACE OPERATOR documented in this encounter Miscellaneous Notes * Telephone Encounter - Otf [place] OSA - 10/22/2024 4:01 PM EDT Reason for patient's call: patient returning call Caller was transferred to [facility] at the nurse line. * Telephone Encounter - Yusra Reddy RN - 10/22/2024 3:56 PM EDT Provider to address: Reason for Call: Follow Up Contact: Telephone Call Contact Type: Follow-up Provider In-Basket: No Outcome: patient had called into call center earlier and needed to speak with a nurse, call was dropped. (See LAURA encounter from 10/21/24) I attempted to call patient back, no answer. LMTRC. Please transfer to dedicated nurse line when call is returned. Thank you Face to face time spent with Patient (minutes): 0 Total Time including non face to face (minutes): 10 documented in this encounter Plan of Treatment Upcoming Encounters Date Type Department Care Team (Late st Contact Info) Description 10/23/2024 7:10 AM EDT Laboratory Lab Mobile Phlebotomy [address] [facility] [place] [address] [facility] Mobile Home Draw [address] [place] [address] [place] [address] Arrived 10/23/2024 5:30 PM EDT Anticoagulation Pharmacy, [facility] [address] [place] [address] [facility] [address] [place] [address] 10/24/2024 9:00 AM EDT Office Visit [facility] [address] [place] [address] Tom Radnall MD [address] [place] [address] 11/13/2024 3:20 PM EDT Office Visit Pharmacy, Tony Song, [place] [address] [place] [address] [facility] [address] [place] [address] 01/14/2025 12:20 PM EDT Office Visit [facility] [place] [address] [place] [address] Anabel Ortiz MD [address] [place] [address] Health Maintenance Due Date Last Done Comments [...] this encounter Medical Devices Implanted Type Area Wet Silk Hanger Device Identifier Shelf Expiration Date Model / Serial / Lot Cath Thermodilution 6fr - [id number] Implanted:Qty: 1 on 04/20/2023 at [facility] [employer] [id number] 11/13/2024 [id number] / / [id number] Valve Aortic [facility] - [id number] - [id number] Implanted:Qty: 1 on 04/23/2023 by Zbigniew Linder MD at [facility] N/A: Heart [employer] [id number] 09/04/2028 ONXACE-2 1 [id number] / [id number] Suture Steel 6 B&S19 M654g - [id number] Implanted:Qty: 8 on 04/23/2023 by Zbigniew Linder MD at OR [facility] N/A: Sternum JNJ : [employer] 12/07/2027 [...] and were consensually agreed upon. Care Teams Bead Wrapper Relationship Specialty Start Date End Date Anabel Ortiz MD [address] [place] [address] PCP - General Internal Medicine 07/25/24 documented as of this encounter
--- OUTSIDE RECORDS SUMMARY | 2024-11-14 13:24 | External Medical Summary ---
Author Name Unknown Address Unknown Organization K01:[facility] - [address] [place] [address] Laboratory Report Ordering Provider Test Date Status PETRA GOMES 10/23/2024 10:58:00 Final Warfarin Therapy
INR: 2 .0-3.0 conventional anticoagulation
INR: 2.5- 3.5 high intensity anticoagulation Observation Date Value Abnormality Reference (Units ) Status PT 10/23/2024 10:58:00 19.0 Above high normal 11 .6-15.2 (seconds) Final INR 10/23/2024 10:58:00 1.6 Above high normal 0. 8-1.2 Final Performing Location [facility] - [address] [place] [address]
--- OUTSIDE RECORDS SUMMARY | 2024-11-14 13:24 | External Medical Summary | Summary of Care ---
Author Name Unknown Organization [facility] Address [address] [facility] [address] Phone [phone] Care Team Providers Care Welder Production Line Gas Name Role Phone Anabel Ortiz MD Primary Care Provider Reason for Visit * Reason Onset Date Comments Hospital Follow-Up 10/21/2024 [facility] 10/20 LAURA call Encounter Details Date Type Department Care Team (Late st Contact Info) Description 10/21/2024 Telephone Family Practice [facility] [address] [place] [address] Lauryn Kothari, RN Hospital Follow-Up ([facility] 10/20 LAURA call) Allergies Active [...] Tablets by mouth in the morning. Per [facility] instructions . 60 Tablet 5 10/04/19 25 [...] PPD 05/06/2014,05/18/2009 Pneumococcal Conjugate Vacci ne, 20-valent (Zoktshu25) 01/19/2022 Pneumococcal Polysaccharide PPV23 (Pneumovax) 08/22/2013 Seasonal [...] Industry Job Start Date Job End Date [employer] work Not on file Not on file [...] visit for follow up: LAURA Admitted to: [facility], Date: 10/10 Discharged to: home, Date: 10/20 [...] of diarrhea 2. Abdominal pain 3. Hypo/hyperglycemia Emt/DispatcherPlayback Operator of Care interventions/Action Plan: Medication reconciliation and [...] visit for follow up: LAURA Admitted to: [facility], Date: 10/10 Discharged to: home, Date: 10/20 Diagnosis driving hospitalization: C diff colitis Message left on voicemail. If the pt reaches the call center please transfer them to [place] at [phone]. Thank you. Attempted Phone Call First Attempt Call Outcome Left Voicemail/Message documented in this encounter Plan of Treatment Upcoming Encounters Date Type Department Care Team (Late st Contact Info) Description 10/23/2024 7:10 AM EDT Laboratory Lab Mobile Phlebotomy [address] [place] [address] [place], [facility] Mobile Home Draw [address] [place] [address] [place] [address] 10/23/2024 5:30 PM EDT Anticoagulation Pharmacy, [facility] [address] [place] [address] [facility] [address] [place] [address] 10/24/2024 9:00 AM EDT Office Visit Family Practice [facility] [address] [place] [address] Tom Randall MD [address] [place] [address] 11/13/2024 3:20 PM EDT Office Visit Pharmacy, [facility] [address] [place] [address] [facility] [address] [place] [address] 01/14/2025 12:20 PM EDT Office Visit Family Practice [facility] [address] [place] [address] Anabel Ortiz MD [address] [place] [address] Health Maintenance Due Date Last Done Comments [...] this encounter Medical Devices Implanted Type Area On Air Personality Device Identifier Shelf Expiration Date Model / Serial / Lot Cath Thermodilution 6fr - [id number] Implanted:Qty: 1 on 04/20/2023 at [facility] [employer] [id number] 11/13/2024 [id number] / / [id number] Valve Aortic [facility] 21mm - [id number] - [id number] Implanted:Qty: 1 on 04/23/2023 by Zbigniew Linder MD at OR [facility] N/A: Heart [employer] [id number] 09/04/2028 ONXACE-2 1 / [id number] / [id number] Suture Steel 6 B&S19 M654g - [id number] Implanted:Qty: 8 on 04/23/2023 by Zbigniew Linder MD at OR [facility] N/A: Sternum JNJ : [employer] 12/07/2027 [...] and were consensually agreed upon. Care Teams Welder Production Line Gas Relationship Specialty Start Date End Date Anabel Ortiz MD [address] [place] [address] PCP - General Internal Medicine 07/25/24 documented as of this encounter
--- OUTSIDE RECORDS SUMMARY | 2024-11-14 13:25 | External Medical Summary | Summary of Care ---
Author Name Unknown Organization [facility] Address [address] [place] [address] Phone [phone] Care Team Providers Care Head Teacher Name Role Phone Anabel Ortiz MD Primary Care Provider Reason for Visit * Reason Comments Dosage Adjustment Via Phone (anticoag Cl inic) Encounter Details Date Type Department Care Team (Latest Contact Info) Description 10/13/2024 5:30 PM EDT Anticoagulation Pharm[facility], [facility] [place] [address] [facility] [place] [address] Anticoagulation management encounter* Allergies Active Allergy Reactions Criticality Noted Date Comments Erythromycin 07/06/1997 Stomach pain documented as of this encounter (statuses as of 10/13/2024) Medications MULTIVITAMINS PO TABS Take 1 Tablet [...] Tablets by mouth in the morning. Per [facility] instructions. 60 Tablet 5 5 Active documented as of this encounter (statuses as of 10/13/2024) Active Problems Problem Noted Date Diagnosed Date [...] as of this encounter (statuses as of 10/13/2024) Resolved Problems Problem Noted Date Diagnosed Date [...] as of this encounter (statuses as of 10/13/2024) Immunizations Name Administration Dates Next Due COVID-19 mRNA, LNP-s, No Pre serve, 2-Dose Series (Moderna) 11/25/2020,10/28/2020 Hepatitis B, 20+ yrs 05/19/2015,11/19/2014,05/06 PPD 05/06/2014,05/18/2009 Pneumococcal Conjugate Vacci ne, 20-valent (Tngtgrn70) 01/19/2022 Pneumococcal Polysaccharide PPV23 (Pneumovax) 08/22/2013 Seasonal [...] Industry Job Start Date Job End Date [email or web address] work Not on file Not on [...] Assessment Author No 04/20/2023 2:13 AM EDT uSe Sebastian LPN * Do you have serious [...] this encounter Progress Notes * Amna Ruffin, [facility] - 10/13/2024 1:16 PM EDT Patient currently admitted at [facility]. Follow up for discharge in 2 days. Amna Ruffin, Pharm D, [facility] 10/13/2024, 1:16 PM * Jailene Mora, health care recruiter - 10/13/2024 1:03 PM EDT No new INR results, pt no showed GML today. Called [facility] to see when he will be rescheduled and they have that he is admitted but not where. Please advise. Thank you, Jailene Mora Java Xml Developer [facility] 10/13/2024, 1:04 PM documented in this encounter Plan of Treatment Upcoming Encounters Date Type Department Care Team (Late st Contact Info) Description 10/15/2024 5:10 PM EDT Anticoagulation Pharmacy, [facility] [address] [place] [address] [facility] [address] [place] [address] 11/13/2024 3:20 PM EDT Office Visit Pharmacy, [facility] [address] [place] [address] [facility] [address] [place] [address] 01/14/2025 12:20 PM EDT Office Visit Family Practice [facility] [address] [place] [address] Anabel Ortiz MD [address] [place] [address] Health Maintenance Due Date Last Done Comments [...] encounter Medical Devices Implanted Type Area Stationary Engineer Apprentice Device Identifier Shelf Expiration Date Model / Serial / Lot Cath Thermodilution 6fr - [id number] Implanted:Qty: 1 on 04/20/2023 at [facility] [employer] [id number] 11/13/2024 [id number] / / [id number] Valve Aortic Mech 21mm - [id number] - [id number] Implanted:Qty: 1 on 04/23/2023 by Zbigniew Linder MD at [place] [facility] N/A: Heart [employer] [id number] 09/04/2028 ONXACE-2 [id number] / [id number] Suture Steel 6 B&S19 M654g - [id number] Implanted:Qty: 8 on 04/23/2023 by Zbigniew Linder MD at [place] [facility] N/A: Sternum JNJ : [employer] 12/07/2027 M654G / / [id number] documented as of this encounter Visit Diagnoses Diagnosis Anticoagulation management encounter- Primary Encounter for therapeutic drug monitoring documented in this encounter Advance Directives * [...] and were consensually agreed upon. Care Teams Head Teacher Relationship Specialty Start Date End Date Anabel Ortiz MD [address] [place] [address] PCP - General Internal Medicine 07/25/24 documented as of this encounter
--- OUTSIDE RECORDS SUMMARY | 2024-11-14 13:25 | External Medical Summary | Summary of Care ---
Author Name Unknown Organization [facility] Address [address] [place] [address] Phone [phone] Care Team Providers Care Boiler Mechanic Name Role Phone Anabel Ortiz MD Primary Care Provider Reason for Visit * Reason Comments Status Check Encounter Details Date Type Department Care Team (Latest Contact Info) Description 10/17/2024 5:10 PM EDT Anticoagulation Pharmacy, [facility] [address] [facility] [place] [address] [facility] [address] [place] [address] History of mechanical aortic valve replacement*; S/P aortic valve replacement Allergies Active Allergy Reactions Criticality Noted Date Comments Erythromycin 07/06/1997 Stomach pain documented as of this encounter (statuses as of 10/17/2024) Medications MULTIVITAMINS PO TABS Take 1 Tablet by mouth every morning. Active Calcium Carbonate Antacid 500 MG Oral Tablet Chewable Take 1 Tablet by mouth as needed. As needed 5 Active ONETOUCH DELICA LANCETS 33G MISC TEST SUGAR DAILY 100 Each 5 8 Active ONETOUCH ULTRA BLUE STRPIndications: Type 2 diabetes mellitus with hemoglobin A1c goal of less than 7.0% ([facility] USE UP TO 4 [...] Tablets by mouth in the morning. Per [facility] instructions. 60 Tablet 5 5 Active documented as of this encounter (statuses as of 10/17/2024) Active Problems Problem Noted Date Diagnosed Date [...] as of this encounter (statuses as of 10/17/2024) Resolved Problems Problem Noted Date Diagnosed Date [...] as of this encounter (statuses as of 10/17/2024) Immunizations Name Administration Dates Next Due COVID-19 mRNA, LNP-s, No Pre serve, 2-Dose Series (Moderna) 11/25/2020,10/28/2020 Hepatitis B, 20+ yrs 05/19/2015,11/19/2014,05/06 PPD 05/06/2014,05/18/2009 Pneumococcal Conjugate Vacci ne, 20-valent (Knkdept50) 01/19/2022 Pneumococcal Polysaccharide PPV23 (Pneumovax) 08/22/2013 Seasonal [...] Industry Job Start Date Job End Date [employer] work Not on file Not on file [...] this encounter Progress Notes * Amna Ruffin, [facility] - 10/17/2024 8:50 AM EDT Patient remains admitted at this time at [facility]. Follow up for discharge in 3 days. Amna Ruffin, Pharm D, [facility] Clinical Pharmacist 10/17/2024, 8:51 AM documented in this encounter Plan of Treatment Upcoming Encounters Date Type Department Care Team (Late st Contact Info) Description 10/20/2024 5:10 PM EDT Anticoagulation Pharmacy, [facility] [address] [place] [address] [facility] [address] [place] [address] 10/23/2024 2:20 PM EDT Office Visit [facility] [address] [place] [address] Tom Randall MD [address] [place] [address] 11/13/2024 3:20 PM EDT Office Visit Pharmacy, [facility] [address] [place] [address] [facility] [address] [place] [address] 01/14/2025 12:20 PM EDT Office Visit [facility] [address] [place] [address] Anabel Ortiz MD [address] [place] [address] Health Maintenance Due Date Last Done Comments [...] this encounter Medical Devices Implanted Type Area Cable Hooker Device Identifier Shelf Expiration Date Model / Serial / Lot Cath Thermodilution 6fr - [id number] Implanted:Qty: 1 on 04/20/2023 at [facility] [employer] [place] [id number] 11/13/2024 [id number] / / [id number] Valve Aortic [facility] 21mm - [id number] - [id number] Implanted:Qty: 1 on 04/23/2023 by Zbigniew Linder MD at OR [facility] N/A: Heart [employer] [id number] 09/04/2028 ONXACE-2 [id number] / [id number] Suture Steel 6 B&S19 M654g - [id number] Implanted:Qty: 8 on 04/23/2023 by Zbigniew Linder MD at OR [facility] N/A: Sternum JNJ [...] and were consensually agreed upon. Care Teams Boiler Mechanic Relationship Specialty Start Date End Date Anabel Ortiz MD [address] [place] [place] [address] PCP - General Internal Medicine 07/25/24 documented as of this encounter
--- OUTSIDE RECORDS SUMMARY | 2024-11-14 13:25 | External Medical Summary | Summary of Care ---
Author Name Unknown Organization [facility] Address [address] [place] [facility] [place] [address] Phone [phone] Care Team Providers Care Junior Sales Assistant Name Role Phone Anabel Ortiz MD Primary Care Provider Reason for Visit * Reason Comments Dosage Adjustment Via Phone (anticoag Cl inic) Encounter Details Date Type Department Care Team (Latest Contact Info) Description 10/20/2024 5:10 PM EDT Anticoagulation Pharmacy, [facility] [address] [place] [address] [facility] [place] [address] History of mechanical aortic valve replacement*; S/P aortic valve replacement Allergies Active Allergy Reactions Criticality Noted Date Comments Erythromycin 07/06/1997 Stomach pain documented as of this encounter (statuses as of 10/20/2024) Medications MULTIVITAMINS PO TABS Take 1 Tablet [...] Per [facility] instructions. 60 Tablet 5 5 Active documented as of this encounter (statuses as of 10/20/2024) Active Problems Problem Noted Date Diagnosed Date [...] as of this encounter (statuses as of 10/20/2024) Resolved Problems Problem Noted Date Diagnosed Date [...] as of this encounter (statuses as of 10/20/2024) Immunizations Name Administration Dates Next Due COVID-19 mRNA, LNP-s, No Pre serve, 2-Dose Series (Moderna) 11/25/2020,10/28/2020 Hepatitis B, 20+ yrs 05/19/2015,11/19/2014,05/06 PPD 05/06/2014,05/18/2009 Pneumococcal Conjugate Vacci ne, 20-valent (Jhyucte61) 01/19/2022 Pneumococcal Polysaccharide PPV23 (Pneumovax) 08/22/2013 Seasonal [...] Industry Job Start Date Job End Date [employer] work Not on file Not on [...] this encounter Progress Notes * Amna Ruffin [facility] - 10/20/2024 8:59 AM EDT Patient remains admitted at this time. Possible discharge today. Follow up in 1 days for follow up with warfarin. Am[facility] Ruffin, Pharm D, [facility] 10/20/2024, 9:00 AM documented in this encounter Plan of Treatment Upcoming Encounters Date Type Department Care Team (Late st Contact Info) Description 10/21/2024 5:10 PM EDT Anticoagulation Pharmacy, [facility] [address] [place] [address] [facility] [address] [place] [address] 10/23/2024 2:20 PM EDT Office Visit [facility] [address] [place] [address] Tom Randall MD [address] [place] [address] 11/13/2024 3:20 PM EDT Office Visit Pharmacy, [facility] [address] [place] [address] [facility] [address] [place] [address] 01/14/2025 12:20 PM EDT Office Visit [facility] [address] [place] [address] Anabel Ortiz MD [address] [place] [address] Health Maintenance Due Date Last Done Comments [...] this encounter Medical Devices Implanted Type Area Digital Associate Media Director Device Identifier Shelf Expiration Date Model / Serial / Lot Cath Thermodilution 6fr - [id number] Implanted:Qty: 1 on 04/20/2023 at [facility] [employer] [id number] 11/13/2024 [id number] / / [id number] Valve Aortic Mech 21mm - [id number] - [id number] Implanted:Qty: 1 on 04/23/2023 by Zbigniew Linder MD at [place] [facility] N/A: Heart [employer] [id number] 09/04/2028 ONXACE-2 [id number] / [id number] Suture Steel 6 B&S19 M654g - [id number] Implanted:Qty: 8 on 04/23/2023 by Zbigniew Linder [...] and were consensually agreed upon. Care Teams Junior Sales Assistant Relationship Specialty Start Date End Date Anabel Ortiz MD [address] [place] [place] [address] PCP - General Internal Medicine 07/25/24 documented as of this encounter
--- OUTSIDE RECORDS SUMMARY | 2024-11-14 13:25 | External Medical Summary | Summary of Care ---
Author Name Unknown Organization [facility] Address [address] [place] [address] Phone [phone] Care Team Providers Care Civil Cadd Technician Name Role Phone Anabel Ortiz MD Primary Care Provider Reason for Visit * Reason Comments Dosage Adjustment Via Phone (anticoag Cl inic) Encounter Details Date Type Department Care Team (Latest Contact Info) Description 10/15/2024 5:10 PM EDT Anticoagulation Pharmacy, [facility] [address] [place] [id number] [facility] [address] [facility] [place] [id number] History of mechanical aortic valve replacement*; S/P aortic valve replacement Allergies Active Allergy Reactions Criticality Noted Date Comments Erythromycin 07/06/1997 Stomach pain documented as of this encounter (statuses as of 10/15/2024) Medications MULTIVITAMINS PO TABS Take 1 Tablet [...] as of this encounter (statuses as of 10/15/2024) Active Problems Problem Noted Date Diagnosed Date [...] as of this encounter (statuses as of 10/15/2024) Resolved Problems Problem Noted Date Diagnosed Date [...] as of this encounter (statuses as of 10/15/2024) Immunizations Name Administration Dates Next Due COVID-19 mRNA, LNP-s, No Pre serve, 2-Dose Series (Moderna) 11/25/2020,10/28/2020 Hepatitis B, 20+ yrs 05/19/2015,11/19/2014,05/06 PPD 05/06/2014,05/18/2009 Pneumococcal Conjugate Vacci ne, 20-valent (Ijvkhro23) 01/19/2022 Pneumococcal Polysaccharide PPV23 (Pneumovax) 08/22/2013 Seasonal [...] Industry Job Start Date Job End Date [employer] work Not on file Not on file [...] this encounter Progress Notes * Amna Ruffin [facility] - 10/15/2024 8:43 AM EDT Patient remains admitted at this time. Follow up for discharge in 2 days. Amna Ruffin, Pharm D, [facility] Clinical [facility]ist 10/15/2024, 8:43 AM documented in this encounter Plan of Treatment Upcoming Encounters Date Type Department Care Team (Late st Contact Info) Description 10/17/2024 5:10 PM EDT Anticoagulation Pharmacy, [facility] [address] [place] [phone] [facility] [address] [place] [address] 11/13/2024 3:20 PM EDT Office Visit Pharmacy, [facility] [address] [place] [address] [facility] [address] [place] [address] 01/14/2025 12:20 PM EDT Office Visit Family Practice [facility] [address] [place] [address] Anabel Ortiz MD [address] [place] [phone] Health Maintenance Due Date Last Done Comments [...] this encounter Medical Devices Implanted Type Area President [employer] Device Identifier Shelf Expiration Date Model / Serial / Lot Cath Thermodilution 6fr - [id number] Implanted:Qty: 1 on 04/20/2023 at [facility] [employer] [id number] 11/13/2024 [id number] / / [id number] Valve Aortic Mech 21mm - [id number] - [id number] Implanted:Qty: 1 on 04/23/2023 by Zbigniew Linder MD at [place] [facility] N/A: Heart [employer] [id number] 09/04/2028 ONXACE-2 [id number] / [id number] Suture Steel 6 B&S19 M654g - [id number] Implanted:Qty: 8 on 04/23/2023 by Zbigniew Linder MD at [place] [facility] N/A: Sternum [place] : ETHICON [...] were consensually agreed upon. Care Teams Civil Cadd Technician Relationship Specialty Start Date End Date Anabel Ortiz MD [address] [place] [phone] PCP - General Internal Medicine 07/25/24 documented as of this encounter
--- NOTE | 2024-11-14 14:01 | History & Physical Report ---
Date of Service November 14, 2024 Assessment & Plan (1) Uncontrolled type 2 diabetes mellitus with hyperglycemia: Plan: Admit to [facility] with telemetry Patient presenting from home due to inability to take insulin for 1 week due to electricity being shut off and inability to keep insulin refrigerated In the ED, labs show glucose of 475 with normal CO2 and anion gap, K+ 5.7. Patient was given 10 units IV insulin and IVF. No signs of DKA Continue IVF Lantus/NovoLog Glycemic pharmacy consult CM to assist with discharge planning (2) Acute hyperkalemia: Plan: K+ 5.7, Mic due to dehydration from hyperglycemia Continue IVF, repeat BMP Noted patient is prescribed lisinopril however has not been filled since May 2024 (3) H/O mechanical aortic valve replacement: Plan: On Coumadin, INR pending Patient has had issues with compliance in the past, if INR subtherapeutic, start Lovenox bridge (4) Hypertension: Plan: BP currently mildly elevated Noted patient is prescribed lisinopril however has not been filled since May 2024. Due to hyperkalemia, will hold for now. Continue to monitor BP consider resuming lisinopril or alternative antihypertensive given hyperkalemia (5) PAD (peripheral artery disease): Plan: Continue ASA and statin DVT PROPHYLAXIS Coumadin as above Patient seen in collaboration with Dr. Vergara. I spent a total of 75 minutes coordinating, documenting, and providing care for this patient excluding time spent in the performance of separately billed services. This included personally reviewing all current laboratories and imaging studies, medication reconciliation, outpatient chart review, and discussion with specialists. History of Present Illness Chief Complaint: Hyperglycemia Primary Care Provider: Anabel Ortiz MD 64-year-old male with PMH DM type II, COPD, HTN, history of TIA, PAD, GERD, C. difficile, Mechanical aortic valve replacement anticoagulated on Coumadin, and other problems listed below who presents to the ED for evaluation of hyperglycemia. Patient recently admitted to [facility] 10/10-10/20 for management of C. difficile colitis and DKA. Patient reports that about 2-1/2 weeks ago, his electricity was shut off due to his inability to pay the bill. PCPs office has been involved attempting to fill out the appropriate form for the [employer]. Patient is unsure if this has been completed and sent in. Patient is on insulin and reports that his insulin went bad about a week ago due to being unable to refrigerate it. He has not taken his insulin in over a week. Denies abdominal pain, nausea, vomiting, diarrhea. No fevers or chills. Denies chest pain and shortness of breath. No lightheadedness, dizziness, diaphoresis, syncopal events. No urinary symptoms. In the ED, labs show glucose of 475 with normal CO2 and anion gap, K+ 5.7. Patient was given 10 units IV insulin and IVF. Allergies Allergy/AdvReac Type Severity Reaction Status Date / Time erythromycin base AdvReac Intermediate Abdominal Verified 10/10/24 15:06 Pain Home Medications Medication Instructions Recorded Confirmed Type aspirin 81 mg tablet,delayed 81 mg PO DAILY #30 tabs 06/02/24 11/14/24 Rx release pen needle, diabetic 32 gauge x #50 ea 06/02/24 07/24/24 Rx 5/32" (Pen Needle) rosuvastatin 40 mg tablet 40 mg PO QAM #30 tabs 06/02/24 11/14/24 Rx warfarin 7.5 mg tablet 7.5 mg PO UD 10/10/24 11/14/24 History insulin NPH-regular 70-30 U-100 22 - 33 unit subcut BID 11/14/24 11/14/24 History insulin 100 unit/mL subcutaneous pen (Novolin 70-30 FlexPen U-100 Insulin) lisinopril 5 mg tablet (Zestril) 5 mg PO DAILY 11/14/24 11/14/24 History multivitamin 1 tab PO DAILY 11/14/24 11/14/24 History Past Med/Surg History Problem List (Updated 11/14/24 @ 14:09 by GREGORIA De Leon) Acute dehydration (Acute) Acute hyperkalemia (Acute) Acute hyperglycemia (Acute) Anticoagulated on warfarin Patient's other noncompliance with medication regimen due to financial hardship C. 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 Repeat head CTA 08/2022 was unremarkable and no left ICA aneurysm identified Hypertension Hyperlipidemia PFO (patent foramen ovale) Small per 11/2021 [facility] imaging per cardio records Barretts esophagus Per records Gallbladder sludge reason for upcoming procedure Arthritis, gouty Hx of kidney disease PER PATIENT, ACUTE KIDNEY DISEASE 05/2022>WNL CURRENTLY GERD (gastroesophageal reflux disease) "silent/mild" Diabetes mellitus, type 2 Hx of pancreatitis HOSPITALIZED 05/2022>DKA and acute pancreatitis Aortic valve stenosis Severe per 05/2022 ECHO (PK 0.78-1.0cm2; AV mean PG 23.2mmHg; AV max velocity 3.684m/s) Chronic obstructive pulmonary disease MILD>NO INHALERS PER PATIENT Surgical History H/O mechanical aortic valve replacement Nausea and vomiting after administration of anesthetic agent H/O arthroscopic knee surgery + GANGLION CYST REMOVED>RT History of esophagogastroduodenoscopy (EGD) History of colonoscopy History of tooth extraction History of tonsillectomy and adenoidectomy History of cataract surgery RT/LEFT History of foot surgery RT History of carpal tunnel surgery LEFT Family History Other Diabetes Heart disease No family history of adverse response to anesthesia Social History Smoking Status: Never smoker Tobacco Type: Cigarettes Cigarettes Per Day: 4 CIG DAILY>ADVISED; Second Hand Exposure: No; Do You Dip or Chew Tobacco: No; Hx Alcohol Use: No Hx Substance Use: No Preferred Language: Icelandic Communication Ability: Effective Market Asset Protection Manager Required: No Beliefs That Will Affect Care: None marital status: Unknown Current Living Situation: Alone Current Living Situation Comment: son Feels Safe at Home: Yes Assistive Devices: Walker Physical Exam Constitutional: WD/WN, vitals as above no acute distress Respiratory: normal respiratory effort, lungs clear to auscultation Cardiovascular: Rate/Rhythm: regular rate and regular rhythm Vessels: normal peripheral pulses Extremities: no edema Gastrointestinal (Abdomen): normal bowel sounds, soft, nontender, no hepatosplenomegaly Musculoskeletal: no cyanosis or clubbing, extremities motor strength 5/5 Skin: no rashes, warm and dry Psychiatric: A+Ox3, euthymic affect Results & Data Results & Data Vital Signs (Past 12 Hours) Vital Signs Temp Pulse Pulse Resp BP BP Pulse Ox 11/14/24 13:22 76 11/14/24 13:00 84 20 158/71 H 98 11/14/24 11:21 82 20 142/79 H 99 11/14/24 10:48 36.6 C 104 H 18 150/77 H 97 O2 Del Method 11/14/24 13:22 11/14/24 13:00 Room Air 11/14/24 11:21 Room Air 11/14/24 10:48 Room Air Laboratory Results Short CBC 11/14/24 Range/Units 10:04 WBC 6.55 (4.8-10.8) K/ul Hgb 15.0 (14.0-18.0) g/dl Hct 44.5 (42.0-52.0) % Plt Count 209 (130-400) K/uL BMP 11/14/24 10:04 Sodium 135 L Potassium 5.7 H Chloride 101 Carbon Dioxide 29 BUN 11 Creatinine 1.18 Glucose 475 H* Calcium 9.5 Liver Function 11/14/24 Range/Units 10:04 Total Bilirubin 0.6 (0.2-1.0) mg/dl AST 13 (13-39) U/L ALT 14 (7-52) U/L Alkaline Phosphatase 130 H (34-104) U/L Albumin 4.3 (3.4-5.0) gm/dl Urine 11/14/24 Range/Units 12:12 Urine Color Yellow Urine Appearance Clear (Clear) Urine pH 6.5 (4.5-7.5) Ur Specific [place] 1.021 (1.000-1.030) Urine Protein 3+ H (Negative) Urine Glucose (UA) 3+ H (Negative) Supervising Physician Co-Signing Physician Notes Patient seen and examined Agree with plans as detailed by Mague KINNEY INR is subtherapeutic at 1. Start lovenox -warfarin bridge considering hx of mechanical aortic valve and monitor daily INR
[2024-11-14 14:31] LABS: BUN Creatinine Ratio 10.6 (10-20); Potassium 4.5 mmol/L (3.5-5.1)
[2024-11-14 14:41] LABS: Prothrombin Time 11.1 Seconds (9.0-12.0)
[2024-11-14] MEDS ORDERED: DEXTROSE 50% 50 ML SYRINGE IV PRN (15:09)
[2024-11-14] MEDS ORDERED: GLUCOSE 10 TAB/TUBE PO PRN (15:09)
[2024-11-14] MEDS ORDERED: CARBOHYDRATES FOR HYPOGLYCEMIA PO PRN (15:09)
[2024-11-14] MEDS ORDERED: GLUCOSE 40% GEL 15 GM TUBE PO PRN (15:09)
[2024-11-14] MEDS ORDERED: PHARMACY GLYCEMIC MGMT CONSULT PRN (15:09)
[2024-11-14] MEDS ORDERED: GLUCAGON FOR INJ 1 MG VIAL SQ PRN (15:09)
[2024-11-14] MEDS: SODIUM CHLORIDE 0.9% 1,000 ML IV SCH (16:32)
[2024-11-14] MEDS: WARFARIN SOD 7.5 MG TAB PO SCH (16:32)
[2024-11-14] MEDS: ENOXAPARIN 80 MG/0.8 ML SYR SC SCH (17:00)
[2024-11-14] MEDS: INSULIN ASPART PER UNIT CHARGE SC SCH (18:10)
[2024-11-14] MEDS: LANTUS PER UNIT CHARGE SQ SCH (20:23)
[2024-11-14] MEDS: ACETAMINOPHEN 325 MG TAB PO PRN (22:45)
[2024-11-14 23:17] VITALS: O2SAT 97
[2024-11-15 03:46] VITALS: TEMP 97.5
[2024-11-15 06:48] LABS: Hematocrit (blood only) 38.2 % (42.0-52.0); Hemoglobin 13.2 g/dl (14.0-18.0); Mean Corpuscular Hgb Conc 34.6 g/dL (32.0-36.0); Mean Corpuscular Volume 89.7 fL (80.0-100.0); Mean Platelet Volume 10.6 fL (9.4-12.4); Platelet Count 156 K/uL (130-400); RDW Coefficient of Variation 15.7 % (11.5-14.5); RDW Standard Deviation 51.5 fL (36.4-46.3); Red Blood Count 4.26 M/uL (4.70-6.10); White Blood Count 5.03 K/ul (4.8-10.8)
[2024-11-15 07:04] LABS: Calcium 8.9 mg/dl (8.6-10.3); Creatinine Clr Calc Pharmacy 62.9 ml/min; Potassium 4.2 mmol/L (3.5-5.1)
[2024-11-15 07:17] LABS: Prothrombin Time 11.2 Seconds (9.0-12.0)
[2024-11-15 07:40] VITALS: RESP 20
[2024-11-15] MEDS: ROSUVASTATIN CALCIUM 20 MG TAB PO SCH (08:49)
[2024-11-15] MEDS: ASPIRIN 81 MG ECTAB PO SCH (08:49)
--- NOTE | 2024-11-15 10:16 | Discharge Summary ---
Discharge Summary Date of Service November 15, 2024 Principal Dx & Hospital Course #1 = Principal Diagnosis (1) Uncontrolled type 2 diabetes mellitus with hyperglycemia: -patient has hx of medication noncompliance, did not take insulin or medications at home -was not in DKA -has resource book for housing insecurity, along with medical assistance and host of other resources at home -discussed that he can still take insulin at home without electricity, and if concerned should go to homeless [facility] for assistance with insulin -per patient this morning, he states "can I just stay in the hospital for a few days? Maybe go home Sunday? I came to the hospital because I dont have food at home and I am scared of being at home without electricity" (2) Acute hyperkalemia: -resolved -2/2 medication noncompliance (3) H/O mechanical aortic valve replacement: -restart warfarin (4) Hypertension: -restart home meds (5) PAD (peripheral artery disease): Notes For Next Care Provider 64-year-old male with PMH DM type II, COPD, HTN, history of TIA, PAD, GERD, C. difficile, Mechanical aortic valve replacement anticoagulated on Coumadin, and other problems listed below who presents to the ED for evaluation of hyperglycemia. Has history of admissions complicated by housing insecurity, medication noncompliance, and has history of not utilizing resources in the community. Stopped taking insulin a week ago, and lost power a week ago as well. Understands he can take insulin that is not refrigerated, understands he can go to homeless [facility] for assistance with refrigerating if needed. Understands he was not taking insulin at home and needs to. Per patient this morning, came to hospital because "can I just stay in the hospital for a few days? Maybe go home Sunday? I came to the hospital because I dont have food at home and I am scared of being at home without electricity". Was given host of resources last admission in regards to housing insecurity, food insecurity, has medical assistance as well. Today, glucose at acceptable limits, has insulin at home, was never in DKA, patient medically stable for discharge home. Understands he can utilize homeless [facility] for help with medications and housing if needed. Lives with son as well who can help him if needed. Discussed case extensively with case management, nursing leadership, and hospital medicine director Dr. Peterson. Patient should not be readmitted unless clear medical necessity, as patient has resources in community to take care of self for insulin, housing, food insecurity, etc. Medication Changes From Visit -see below Admission HPI Per Admitting Provider 64-year-old male with PMH DM type II, COPD, HTN, history of TIA, PAD, GERD, C. difficile, Mechanical aortic valve replacement anticoagulated on Coumadin, and other problems listed below who presents to the ED for evaluation of hyperglycemia. Patient recently admitted to [facility] 10/10-10/20 for management of C. difficile colitis and DKA. Patient reports that about 2-1/2 weeks ago, his electricity was shut off due to his inability to pay the bill. PCPs office has been involved attempting to fill out the appropriate form for the power company. Patient is unsure if this has been completed and sent in. Patient is on insulin and reports that his insulin went bad about a week ago due to being unable to refrigerate it. He has not taken his insulin in over a week. Denies abdominal pain, nausea, vomiting, diarrhea. No fevers or chills. Denies chest pain and shortness of breath. No lightheadedness, dizziness, diaphoresis, syncopal events. No urinary symptoms. In the ED, labs show glucose of 475 with normal CO2 and anion gap, K+ 5.7. Patient was given 10 units IV insulin and IVF. Discharge Exam Gen: A&O 3 NAD HEENT: NCAT, EOMI, not icteric. External ears normal. No rhinorrhea. Moist mucous membranes. Neck: Supple, full range of motion, no observable masses, No meningeal sign. Lungs: No Respiratory distress. CV: RRR, no edema. Abdomen: Soft, nondistended, No rebound tenderness. MSK: No joint swelling, no redness. Skin: No rashes, petechiae, lesions. Normal color per patient. Neuro: Normal Gait, Grossly intact. Psych: Appropriate for situation. Updated Medication List Medication Instructions Recorded Confirmed Type aspirin 81 mg tablet,delayed 81 mg PO DAILY #30 tabs 06/02/24 11/14/24 Rx release pen needle, diabetic 32 gauge x #50 ea 06/02/24 07/24/24 Rx 5/32" (Pen Needle) rosuvastatin 40 mg tablet 40 mg PO QAM #30 tabs 06/02/24 11/14/24 Rx warfarin 7.5 mg tablet 7.5 mg PO UD 10/10/24 11/14/24 History insulin NPH-regular 70-30 U-100 22 - 33 unit subcut BID 11/14/24 11/14/24 Hi story insulin 100 unit/mL subcutaneous pen (Novolin 70-30 FlexPen U-100 Insulin) lisinopril 5 mg tablet (Zestril) 5 mg PO DAILY 11/14/24 11/14/24 History multivitamin 1 tab PO DAILY 11/14/24 11/14/24 History Hospital Stay Data Consultations 11/14/24 12:44 ED Decision to Admit Stat Pending Results Patient Have Any Pending Studies at Discharge: No Discharge Instructions Given to Patient (Per Discharging Provider) 1. Please take medications as prescribed. 2. If unable to live at home, please follow up on all the resources you have received from our team in regards to homeless shelters, housing insecurity, etc. Total Time Total Time Spent Total Time Spent (In Minutes): I spent a total of 35 minutes in direct patient care, including [id number]-[id number] time with the patient and/or family, reviewing medical records, ordering and reviewing diagnostic tests, and coordinating care with other healthcare providers. This time includes: history taking, physical examination, medical decision making, counseling, ECG interpretation, imaging interpretation, lab interpretation, orders, and education, excluding time spent in the performance of separately billed services.
[2024-11-15 10:33] VITALS: BP 156/73; PULSE 84
== END 2024-11-15 15:56 | disposition home or self-care (01) | DRG 639 ==
LOC: ED 10:40 → INTOOBSV 12:43 → 2N 12:43 → SUATTDRO 12:43 → 2N 14:54

== ENCOUNTER 2024-11-23 11:55 | Inpatient (IN) ==
--- NOTE | 2024-11-23 11:58 | Emergency Department Note ---
Impression & Plan Femoral artery stenosis, Acute hyperglycemia, Acute leg pain ED Provider Note NAME: АЛЕКСАНДР ALLEN AGE: 64 SEX: M : 1960 ARRIVES VIA: Ambulance INFORMANT: Patient, ED PROVIDER(S): John Flowers MD CHIEF COMPLAINT: Foot pain MEDICAL DECISION MAKING: Patient presents due to concern for left foot pain. No obvious definitive pulse but the patient does not have any significant temperature difference between the left and right foot. The patient did have vascular ultrasound completed along with a foot x-ray. The patient was ordered IV morphine and blood work. Blood work shows a normal white count hemoglobin and platelet count. The patient's kidney function is unremarkable. Hyperglycemia noted at 333. Not in DKA. Likely pseudohyponatremia given the patient's elevated blood sugar. The patient's foot x-ray is negative for fracture. The patient does show f significant stenosis of the left lower extremity. Commenting that the patient has monophasic waveforms and a "trickle of blood flow" per the report. I did speak the on-call vascular surgeon Dr. Busch. He agrees with heparin bolus and drip. This was ordered. The patient's INR is not therapeutic so likely not taking his medications and noncompliant. I did speak with the on-call hospitalist service Dr. Kulkarni and the patient was admitted to the medicine service. Critical Care: I have personally spent 48 minutes of critical care time in direct management of this patient. This includes bedside care, interpretation of diagnostic studies, and testing, discussion with consultants, patient, and family members, and other require inpatient management activities. This 48 minutes is in excess of all separately billable procedures. Discussion w/ other healthcare providers: Dr. Busch vascular surgery Dr. Kulkarni inpatient medicine service Prior /Outside records reviewed: I reviewed a discharge summary from November 15. Patient was seen for uncontrolled type 2 diabetes hyperglycemia history of mechanical aortic valve replacement. Also history of COPD. Differential diagnosis: Arterial occlusion, diabetic neuropathy, fracture, sprain, strain, subluxation, dislocation, contusion, ligamentous injury, neurovascular, as well as other etiologies were considered. Diagnostics, as interpreted by me: ECG: Normal sinus rhythm, rate of 77, normal intervals, normal axis no ST elevations. No significant change from comparison November 18, 2024 Cardiac monitoring: An order was placed for continuous cardiac monitoring. The monitor shows a rate of 75 with sinus rhythm. Patient was placed on pulse oximetry Medical decision rules: None Imaging studies: I informally interpreted the patient's foot x-ray does not show obvious fracture with formal report to follow. HPI: Patient presents due to concern for left foot pain. Patient reports that it worsened last night into this morning. The patient states that is present whether he is ambulatory and weightbearing or seated. Patient denies any falls or trauma or overuse. Patient states it is in the left foot. Patient is anticoagulated on Coumadin for known history mechanical aortic valve. Patient denies any falls or trauma. PAST MEDICAL HISTORY: See Below PAST SURGICAL HISTORY: See Below SOCIAL HISTORY: See Below HOME MEDICATIONS: See Below ALLERGIES: See Below VITALS: See Below PHYSICAL EXAMINATION: GENERAL: NAD, non-toxic. Wearing glasses. EYE EXAM: Normal conjunctiva. PERRL, no anisocoria and EOM's grossly intact w/o pain. OROPHARYNX: Moist mucus membranes, grossly normal dentition. NECK: Trachea midline, no stridor. LUNGS: Clear to auscultation. Normal chest wall mechanics. HEART: NSR, no MRG. ABDOMEN: Abdomen soft, non-tender, no masses, no rebound or guarding. Right glasses. SKIN: No rashes and no bruising. UPPER EXTREMITIES: Upper extremities are grossly normal. LOWER EXTREMITIES: Grossly normal, no edema. Decreased sensation to the plantar aspect of the left foot, bilateral lower feet same temperature, slightly cool, no obvious L pedal pulse. No obvious deformity. Pain to palpation at the medial arch of the plantar aspect of the left foot. No open wounds. NEURO EXAM: Awake and alert, follows commands, no obvious facial asymmetry, normal speech, moves all 4 extremities. Past Med/Surg History Problem List (Updated 11/23/24 @ 19:12 by John Flowers MD) Acute leg pain (Acute) Femoral artery stenosis (Acute) Constipation (Acute) Acute hyperglycemia (Acute) Acute dehydration (Acute) Acute hyperkalemia (Acute) Acute hyperglycemia (Acute) Anticoagulated on warfarin Patient's other noncompliance with medication regimen due to financial hardship C. 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 Repeat head CTA 08/2022 was unremarkable and no left ICA aneurysm identified Hypertension Hyperlipidemia PFO (patent foramen ovale) Small per 11/2021 [facility] imaging per cardio records Barretts esophagus Per records Gallbladder sludge reason for upcoming procedure Arthritis, gouty Hx of kidney disease PER PATIENT, ACUTE KIDNEY DISEASE 05/2022>WNL CURRENTLY GERD (gastroesophageal reflux disease) "silent/mild" Diabetes mellitus, type 2 Hx of pancreatitis HOSPITALIZED 05/2022>DKA and acute pancreatitis Aortic valve stenosis Severe per 05/2022 ECHO (PK 0.78-1.0cm2; AV mean PG 23.2mmHg; AV max velocity 3.684m/s) Chronic obstructive pulmonary disease MILD>NO INHALERS PER PATIENT Surgical History H/O mechanical aortic valve replacement Nausea and vomiting after administration of anesthetic agent H/O arthroscopic knee surgery + GANGLION CYST REMOVED>RT History of esophagogastroduodenoscopy (EGD) History of colonoscopy History of tooth extraction History of tonsillectomy and adenoidectomy History of cataract surgery RT/LEFT History of foot surgery RT History of carpal tunnel surgery LEFT Family History Other Diabetes Heart disease No family history of adverse response to anesthesia Social History Smoking Status: Never smoker Tobacco Type: Cigarettes Cigarettes Per Day: did not answer; Second Hand Exposure: No; Do You Dip or Chew Tobacco: No; Hx Alcohol Use: Yes Alcohol type: beer Hx Substance Use: No Preferred Language: Swiss Communication Ability: Effective Fbi Special Agent Required: No Beliefs That Will Affect Care: None marital status: Unknown Current Living Situation: Family Current Living Situation Comment: Lives with son Feels Safe at Home: Yes Assistive Devices: Cane, Glasses and Walker Allergies Allergies Allergy/AdvReac Type Severity Reaction Status Date / Time erythromycin base AdvReac Intermediate Abdominal Verified 11/23/24 15:37 Pain Home Meds Home Medications Medication Instructions Recorded Confirmed warfarin 7.5 mg tablet 7.5 mg PO DIRECTED 10/10/24 11/23/24 lisinopril 5 mg tablet (Zestril) 5 mg PO DAILY 11/14/24 11/23/24 multivitamin 1 tab PO DAILY 11/14/24 11/23/24 Previous Rx's Medication Instructions Recorded aspirin 81 mg tablet,delayed 81 mg PO DAILY #30 tabs 06/02/24 release pen needle, diabetic 32 gauge x #50 ea 06/02/24" (Pen Needle) rosuvastatin 40 mg tablet 40 mg PO QAM #30 tabs 06/02/24 insulin NPH-regular 70-30 U-100 22 - 33 unit (0.22 - 0.33 mL) 11/15/24 insulin 100 unit/mL subcutaneous subcut DAILY #15 mL pen (Novolin 70-30 FlexPen U-100 Insulin) Results & Data (ED) Vital Signs Vital Signs - 24 hr 11/23/24 11:55 11/23/24 12:11 11/23/24 12:21 Temperature 36.7 C Temperature Source Oral Pulse Rate 85 85 80 Pulse Rate [Left Apical] Pulse Rate from SpO2 Sensor Pulse Rhythm Regular Respiratory Rate 16 16 Respiratory Effort / Characteristics Non-Labored Respiratory Depth Normal Respiratory Pattern Regular Blood Pressure 169/83 H Blood Pressure [Left Arm] Blood Pressure Mean 111 Blood Pressure Mean [Left Arm] Pulse Oximetry 98 98 Oxygen Delivery Method Room Air Room Air Sepsis Recent Fever Within 48 Hours No Sepsis New/Unexplained Change in Mental Status N/A Sepsis Action Taken by Nursing No Action Required 11/23/24 12:21 11/23/24 12:33 11/23/24 13:27 Temperature Temperature Source Pulse Rate 77 79 76 Pulse Rate [Left Apical] Pulse Rate from SpO2 Sensor 77 79 77 Pulse Rhythm Respiratory Rate 12 10 L 14 Respiratory Effort / Characteristics Respiratory Depth Respiratory Pattern Blood Pressure Blood Pressure [Left Arm] Blood Pressure Mean Blood Pressure Mean [Left Arm] Pulse Oximetry 99 98 99 Oxygen Delivery Method Sepsis Recent Fever Within 48 Hours Sepsis New/Unexplained Change in Mental Status Sepsis Action Taken by Nursing 11/23/24 13:30 11/23/24 13:45 11/23/24 13:45 Temperature Temperature Source Pulse Rate 78 78 71 Pulse Rate [Left Apical] Pulse Rate from SpO2 Sensor 78 77 71 Pulse Rhythm Respiratory Rate 14 16 12 Respiratory Effort / Characteristics Respiratory Depth Respiratory Pattern Blood Pressure 127/69 127/69 Blood Pressure [Left Arm] Blood Pressure Mean 88 81 Blood Pressure Mean [Left Arm] Pulse Oximetry 98 98 98 Oxygen Delivery Method Sepsis Recent Fever Within 48 Hours Sepsis New/Unexplained Change in Mental Status Sepsis Action Taken by Nursing 11/23/24 15:00 11/23/24 15:23 11/23/24 15:30 Temperature Temperature Source Pulse Rate 76 Pulse Rate [Left Apical] 79 Pulse Rate from SpO2 Sensor 75 Pulse Rhythm Respiratory Rate 14 16 Respiratory Effort / Characteristics Non-Labored Spontaneous Respiratory Depth Normal Respiratory Pattern Regular Blood Pressure 125/69 122/58 L Blood Pressure [Left Arm] 110/62 Blood Pressure Mean 87 65 Blood Pressure Mean [Left Arm] 78 Pulse Oximetry 98 99 Oxygen Delivery Method Room Air Sepsis Recent Fever Within 48 Hours Sepsis New/Unexplained Change in Mental Status Sepsis Action Taken by Nursing 11/23/24 15:33 11/23/24 16:00 11/23/24 16:12 Temperature Temperature Source Pulse Rate 76 72 Pulse Rate [Left Apical] Pulse Rate from SpO2 Sensor Pulse Rhythm Respiratory Rate 14 Respiratory Effort / Characteristics Respiratory Depth Respiratory Pattern Blood Pressure Blood Pressure [Left Arm] 112/57 L Blood Pressure Mean Blood Pressure Mean [Left Arm] 75 Pulse Oximetry 99 98 Oxygen Delivery Method Room Air Room Air Sepsis Recent Fever Within 48 Hours Sepsis New/Unexplained Change in Mental Status Sepsis Action Taken by Nursing 11/23/24 16:17 11/23/24 16:30 11/23/24 17:00 Temperature Temperature Source Pulse Rate 71 77 Pulse Rate [Left Apical] Pulse Rate from SpO2 Sensor Pulse Rhythm Respiratory Rate 20 Respiratory Effort / Characteristics Respiratory Depth Respiratory Pattern Blood Pressure 159/65 H 120/88 Blood Pressure [Left Arm] Blood Pressure Mean 96 100 Blood Pressure Mean [Left Arm] Pulse Oximetry 97 Oxygen Delivery Method Room Air Sepsis Recent Fever Within 48 Hours Sepsis New/Unexplained Change in Mental Status Sepsis Action Taken by Nursing 11/23/24 17:03 11/23/24 17:30 11/23/24 17:42 Temperature Temperature Source Pulse Rate 73 77 Pulse Rate [Left Apical] Pulse Rate from SpO2 Sensor Pulse Rhythm Respiratory Rate 19 16 Respiratory Effort / Characteristics Respiratory Depth Respiratory Pattern Blood Pressure 134/65 Blood Pressure [Left Arm] Blood Pressure Mean 81 Blood Pressure Mean [Left Arm] Pulse Oximetry 96 96 Oxygen Delivery Method Room Air Room Air Sepsis Recent Fever Within 48 Hours Sepsis New/Unexplained Change in Mental Status Sepsis Action Taken by Nursing 11/23/24 18:06 11/23/24 18:30 Temperature Temperature Source Pulse Rate 75 73 Pulse Rate [Left Apical] Pulse Rate from SpO2 Sensor Pulse Rhythm Respiratory Rate 16 15 Respiratory Effort / Characteristics Respiratory Depth Respiratory Pattern Blood Pressure 129/66 Blood Pressure [Left Arm] Blood Pressure Mean 87 Blood Pressure Mean [Left Arm] Pulse Oximetry 98 Oxygen Delivery Method Room Air Sepsis Recent Fever Within 48 Hours Sepsis New/Unexplained Change in Mental Status Sepsis Action Taken by Skilled Nursing Medications Current Medication List: was personally reviewed by me Laboratory Data Attestation: I reviewed the patient's lab results. 11/23/24 12:25 11/23/24 12:25 Lab Results 11/23/24 11/23/24 11/23/24 Range/Units 12:25 18:33 18:56 WBC 5.72 (4.8-10.8) K/ul RBC 4.84 (4.70-6.10) M/uL Hgb 14.6 (14.0-18.0) g/dl Hct 42.7 (42.0-52.0) % MCV 88.2 (80.0-100.0) fL MCH 30.2 (25.0-34.0) pg MCHC 34.2 (32.0-36.0) g/dL RDW Std Deviation 48.3 H (36.4-46.3) fL RDW Coeff of Mariah 15.1 H (11.5-14.5) % Plt Count 203 (130-400) K/uL MPV 10.8 (9.4-12.4) fL Immature Gran % (Auto) 0.2 % Neut % (Auto) 68.1 % Lymph % (Auto) 24.3 % Moore % (Auto) 5.9 % Eos % (Auto) 1.2 % Baso % (Auto) 0.3 % Neut # (Auto) 3.89 (1.40-6.50) K/uL Lymph # (Auto) 1.39 (1.20-3.40) K/uL Moore # (Auto) 0.34 (0.11-0.59) K/uL Eos # (Auto) 0.07 (0.00-0.50) K/uL Baso # (Auto) 0.02 (0.00-0.20) K/uL Immature Gran # (Auto) 0.01 (0.01-0.20) K/uL PT 10.3 (9.0-12.0) Seconds INR 0.9 (0.9-1.1) Sodium 134 L (136-145) mmol/L Potassium 4.4 (3.5-5.1) mmol/L Chloride 100 (98-107) mmol/L Carbon Dioxide 28 (21-32) mmol/L Anion Gap 6 (3-11) BUN 13 (6-23) mg/dl Creatinine 1.15 (0.6-1.4) mg/dl Est Cr Clr Drug Dosing 63.6 ml/min eGFR 71.96 BUN/Creatinine Ratio 11.3 (10-20) Glucose 333 H* (70-99(Fasting)) mg/dl POC Glucose 56 L* 75 (70-99) mg/dl Calcium 9.7 (8.6-10.3) mg/dl Total Bilirubin 0.5 (0.2-1.0) mg/dl AST 25 (13-39) U/L ALT 19 (7-52) U/L Alkaline Phosphatase 139 H (34-104) U/L Total Protein 8.7 H (6.0-8.3) gm/dl Albumin 4.1 (3.4-5.0) gm/dl Globulin 4.6 H (2.5-4.0) gm/dl Albumin/Globulin Ratio 0.9 (0.9-2) Administered Medications Heparin Sodium/Dextrose (Heparin 30692 Unit/500 Ml D5w) 25,000 units in 500 mls @ 24 mls/hr IV .[id number] [facility]; Protocol Stop: 12/23/24 17:29 Last Admin: 11/23/24 18:24 Dose: 1,200 units/hr, 24 mls/hr Documented By: [facility] Co-signed By: NAHUN Insulin Aspart (Insulin Aspart Per Unit Charge) 0 units SC ACHS [facility] Stop: 12/23/24 18:29 Last Admin: 11/23/24 18:42 Dose: Not Given Documented By: DM Co-signed By: TD Miscellaneous (Carbohydrates For Hypoglycemia ) 15 - 30 gm PO UD PRN PRN Reason: Hypoglycemia Protocol Stop: 12/23/24 18:11 Last Admin: 11/23/24 18:36 Dose: 15 gm Documented By: JEANNINE Discontinued Medications Heparin Sodium (Porcine) (Heparin Sod (Porcine) 1000 Unit/Ml) 1 units IV NOW ONE Stop: 11/23/24 17:25 Last Admin: 11/23/24 17:41 Dose: 5,000 units Documented By: JEANNINE Co-signed By: TD Heparin Sodium/Dextrose (Heparin Iv Adult Wt-Based Standard W/ Initial Bolus Protocol) 1 each IV NOW STA; Protocol Stop: 11/23/24 17:10 Last Admin: 11/23/24 17:58 Dose: Not Given Documented By: JEANNINE Morphine Sulfate (Morphine Sulfate 4 Mg/Ml 1 Ml Carp\\Vial) 4 mg IV NOW STA Stop: 11/23/24 12:06 Last Admin: 11/23/24 12:27 Dose: 4 mg Documented By: JOSE LUIS Imaging Data Radiologist's Impression: Duplex Scan Lower Extremity Artery 11/23/24 12:05 LEFT LOWER EXTREMITY ARTERIAL DUPLEX ULTRASOUND INDICATION: Pain TECHNIQUE: Ultrasound of the left lower extremity arteries was performed. A duplex Doppler study was performed, consisting of integrated 2-dimensional (2D) real-time imaging: Color flow Doppler and Doppler spectral analysis. COMPARISON: None FINDINGS: Blood flow velocities are within normal limits. There are extensive calcified and noncalcified atherosclerotic plaque resulting in severe multifocal luminal narrowing. Blood flow velocities and waveforms are as follows: COMPOSING MACHINE OPERATOR/TENDER: 161 cm/s, triphasic Profunda femoris: 84 cm/s, biphasic Proximal SFA: 256 cm/s, biphasic Mid SFA: cm/s, 245, biphasic Distal SFA: 256 cm/s, biphasic Popliteal: 28 cm/s, monophasic MARLIN: 20 cm/s, monophasic Peroneal artery: 17 cm/s, monophasic RN PROCEDURES: 12 cm/s, monophasic DPA: 7 cm/s, monophasic IMPRESSION: Extensive and diffuse atherosclerosis of the left lower extremity arterial circuit resulting in multifocal severe stenoses starting from the common femoral artery and extending through the infrapopliteal arteries. Only trickle of blood flow is seen in the infrapopliteal arteries. Electronically signed by Harman Almaraz 11-23-2024 4:16 PM Foot X-Ray 11/23/24 12:05 XR foot LT min 3V routine HISTORY: 64 years-old Male pain to medial arch acute pain of the left foot without trauma COMPARISON: 05/31/2024 TECHNIQUE: 3 views of the left foot FINDINGS: Benign Leupp of the anterior calcaneus. Arterial calcifications. Demineralized appearance of the bones. 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 Mild diffuse soft tissue swelling. No acute fracture, dislocation, osseous erosion or opaque foreign body. IMPRESSION: No acute fracture. ACT 112: Negative or not required by law. The above report was generated using voice recognition software. It may contain grammatical, syntax or spelling errors. Electronically signed by: Reece Catalan M.D. 11/23/2024 12:42 PM Discharge Plan Visit Data Chief Complaint: Foot Injury/Pain Stated Complaint: FOOT PAIN ED Provider: John Flowers Discharge Problem: Femoral artery stenosis, Acute hyperglycemia, Acute leg pain Patient Disposition: Admitted As Inpatient Condition: Good Forms Stand Alone Forms: [facility], Important Visit Information Prescriptions Prescriptions: No Action warfarin 7.5 mg tablet 7.5 mg PO DIRECTED Rx Instructions: 15mg on Sa, 7.5mg AOD (DME) pen needle, diabetic [Pen Needle] 32 gauge x 5/32" needle See Rx Instructions .Route Qty: 50 3RF Rx Instructions: Please check blood sugar before meals and at bedtime aspirin 81 mg Tablet,Delayed Release (Dr/Ec) 81 mg PO DAILY Qty: 30 0RF rosuvastatin 40 mg tablet 40 mg PO QAM Qty: 30 0RF multivitamin Tablet 1 tab PO DAILY lisinopril [Zestril] 5 mg tablet 5 mg PO DAILY Novolin 70-30 FlexPen U-100 100 unit/mL (70-30) insulin pen 22 - 33 unit subcut DAILY Qty: 15 0RF Rx Instructions: 33 units in AM, 22 units in pm. Referrals Referrals: Anabel Ortiz MD [Primary Care Provider] - Discharge Problem: Acute leg pain Qualifiers: Laterality: left Qualified Code(s): M79.605 - Pain in left leg
[2024-11-23] MEDS: MoRPHine SULFATE 4 MG/ML 1 ML CARP\\VIAL IV STA (12:27)
[2024-11-23 12:40] LABS: Basophils # (auto) 0.02 K/uL (0.00-0.20); Basophils % (auto) 0.3 %; Eosinophils # (auto) 0.07 K/uL (0.00-0.50); Eosinophils % (auto) 1.2 %; Hematocrit (blood only) 42.7 % (42.0-52.0); Hemoglobin 14.6 g/dl (14.0-18.0); Immature Granulocytes # (auto) 0.01 K/uL (0.01-0.20); Immature Granulocytes % (auto) 0.2 %; Lymphocytes # (auto) 1.39 K/uL (1.20-3.40); Lymphocytes % (auto) 24.3 %; Mean Corpuscular Hemoglobin 30.2 pg (25.0-34.0); Mean Corpuscular Hgb Conc 34.2 g/dL (32.0-36.0); Mean Corpuscular Volume 88.2 fL (80.0-100.0); Mean Platelet Volume 10.8 fL (9.4-12.4); Monocytes # (auto) 0.34 K/uL (0.11-0.59); Monocytes % (auto) 5.9 %; Neutrophils # (auto) 3.89 K/uL (1.40-6.50); Neutrophils % (auto) 68.1 %; Platelet Count 203 K/uL (130-400); RDW Coefficient of Variation 15.1 % (11.5-14.5); RDW Standard Deviation 48.3 fL (36.4-46.3); Red Blood Count 4.84 M/uL (4.70-6.10); White Blood Count 5.72 K/ul (4.8-10.8)
--- NOTE | 2024-11-23 12:43 | XRay Report ---
XR foot LT min 3V routine HISTORY: 64 years-old Male pain to medial arch acute pain of the left foot without trauma COMPARISON: 05/31/2024 TECHNIQUE: 3 views of the left foot FINDINGS: Benign Mita of the anterior calcaneus. Arterial calcifications. Demineralized appearance of the b ones. 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 Mild diffuse soft tissue swelling. No acute fr acture, dislocation, osseous erosion or opaque foreign body. IMPRESSION: No acute fracture. ACT 112: Negative or not required by law. The above report was generated using voice recognition software. It may contain grammatical, syntax o r spelling errors. Electronically signed by: Reece Catalan M.D. 11/23/2024 12:42 PM
[2024-11-23 12:46] LABS: INR 0.9 (0.9-1.1); Prothrombin Time 10.3 Seconds (9.0-12.0)
[2024-11-23 13:06] LABS: Albumin Globulin Ratio 0.9 (0.9-2); Albumin Level 4.1 gm/dl (3.4-5.0); BUN Creatinine Ratio 11.3 (10-20); Bilirubin,Total 0.5 mg/dl (0.2-1.0); Calcium 9.7 mg/dl (8.6-10.3); Creatinine Clr Calc Pharmacy 63.6 ml/min; Globulin 4.6 gm/dl (2.5-4.0); Potassium 4.4 mmol/L (3.5-5.1); Total Protein 8.7 gm/dl (6.0-8.3)
--- NOTE | 2024-11-23 14:13 | Electrocardiogram Report ---
Test Reason : Blood Pressure : */* mmHG Vent. Rate : 77 BPM Atrial Rate : 77 BPM P-R Int : 150 ms QRS Dur : 104 ms QT Int : 398 ms P-R-T Axes : 59 17 46 degrees QTcB Int : 450 ms Normal sinus rhythm Minimal voltage criteria for LVH, may be normal variant Anterior infarct (cited on or before 24-Jul-2024) Abnormal ECG When compared with ECG of 18-Nov-2024 22:37, No significant change was found Confirmed by Rajinder Hi ([id number]) on 11/23/2024 2:13:27 PM Referred By: REFERRED SELF Confirmed By: Rajinder Hi
--- NOTE | 2024-11-23 16:16 | Ultrasound Report ---
LEFT LOWER EXTREMITY ARTERIAL DUPLEX ULTRASOUND INDICATION: Pain TECHNIQUE: Ultrasound of the left lower extremity arteries was performed. A duplex Doppler study was performed, consisting of integrated 2-dimensional (2D) real-time imaging: Color flow Doppler and Doppler spectral analysis. COMPARISON: None FINDINGS: Blood flow velocities are within normal limits. There are extensive calcified and noncalcified atherosclerotic plaque resulting in severe multifocal luminal narrowing. Blood flow velocities and waveforms are as follows: CONFIDENTIAL INVESTIGATOR: 161 cm/s, triphasic Profunda femoris: 84 cm/s, biphasic Proximal SFA: 256 cm/s, biphasic Mid SFA: cm/s, 245, biphasic Distal SFA: 256 cm/s, biphasic Popliteal: 28 cm/s, monophasic MARLIN: 20 cm/s, monophasic Peroneal artery: 17 cm/s, monophasic AUTHORIZATION REP: 12 cm/s, monophasic DPA: 7 cm/s, monophasic IMPRESSION: Extensive and diffuse atherosclerosis of the left lower extremity arterial circuit resulting in multifocal severe stenoses starting from the common femoral artery and extending through the infrapopliteal arteries. Only trickle of blood flow is seen in the infrapopliteal arteries. Electronically signed by Harman Almaraz 11-23-2024 4:16 PM
[2024-11-23] MEDS: HEPARIN SOD (PORCINE) 1000 UNIT/ML IV ONE (17:41)
[2024-11-23] MEDS: Heparin IV Adult Wt-Based Standard w/ INITIAL Bolus Protocol IV STA (17:58)
--- NOTE | 2024-11-23 18:10 | History & Physical Report ---
Date of Service November 23, 2024 Assessment & Plan (1) Femoral artery stenosis: Plan #L ankle pain likely 2/2 severe LLE stenosis including femoral artery through the intrapopliteal arteries #PAD s/p bilateral iliac angioplasty w/stenting 08/[address] Busch -vascular surgery consult, previously discussed will see pt in AM -heparin ggt -pain control -npo at SD #Uncontrolled DM -sliding scale for now, consider basal bolus based on response -query noncompliance #Htn, HLD, GERD, mechanical AVR 2022 on warfarin -home meds, hold warfarin IVF, diabetic diet, NPO at SD Heparin ggt History of Present Illness Primary Care Provider: Anabel Ortiz MD 64M pmh PAD s/p bilateral iliac angioplasty w/stenting 08/[address] Busch, uncontrolled DM, htn, HLD, GERD, mechanical AVR 2022 who presents to the ED with L foot pain. Patient states that in the last 1 day his L foot has began to have worsening pain, so he came in. Pain was with walking or putting any pressure on it. Denies other symptoms including R foot or leg pain, L leg pain proximal to the ankle. On my evaluation while laying patient states he has no pain or complaints. Dr Busch was contacted by ED physician and recommends IV anticoagulation and will see in the AM. Allergies Allergy/AdvReac Type Severity Reaction Status Date / Time erythromycin base AdvReac Intermediate Abdominal Verified 11/23/24 15:37 Pain Home Medications Medication Instructions Recorded Confirmed Type aspirin 81 mg tablet,delayed 81 mg PO DAILY #30 tabs 06/02/24 11/23/24 Rx release pen needle, diabetic 32 gauge x #50 ea 06/02/24 11/18/24 Rx /32" (Pen Needle) rosuvastatin 40 mg tablet 40 mg PO QAM #30 tabs 06/02/24 11/23/24 Rx warfarin 7.5 mg tablet 7.5 mg PO DIRECTED 10/10/24 11/23/24 History lisinopril 5 mg tablet (Zestril) 5 mg PO DAILY 11/14/24 11/23/24 History multivitamin 1 tab PO DAILY 11/14/24 11/23/24 History insulin NPH-regular 70-30 U-100 22 - 33 unit (0.22 - 0.33 mL) 11/15/24 11/23/24 Rx insulin 100 unit/mL subcutaneous subcut DAILY #15 mL pen (Novolin 70-30 FlexPen U-100 Insulin) Past Med/Surg History Problem List (Updated 11/23/24 @ 18:05 by Ramon Kulkarni MD) Femoral artery stenosis Constipation (Acute) Acute hyperglycemia (Acute) Acute dehydration (Acute) Acute hyperkalemia (Acute) Acute hyperglycemia (Acute) Anticoagulated on warfarin Patient's other noncompliance with medication regimen due to financial hardship C. 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 Repeat head CTA 08/2022 was unremarkable and no left ICA aneurysm identified Hypertension Hyperlipidemia PFO (patent foramen ovale) Small per 11/2021 [facility] imaging per cardio records Barretts esophagus Per records Gallbladder sludge reason for upcoming procedure Arthritis, gouty Hx of kidney disease PER PATIENT, ACUTE KIDNEY DISEASE 05/2022>WNL CURRENTLY GERD (gastroesophageal reflux disease) "silent/mild" Diabetes mellitus, type 2 Hx of pancreatitis HOSPITALIZED 05/2022>DKA and acute pancreatitis Aortic valve stenosis Severe per 05/2022 ECHO (PK 0.78-1.0cm2; AV mean PG 23.2mmHg; AV max velocity 3.684m/s) Chronic obstructive pulmonary disease MILD>NO INHALERS PER PATIENT Surgical History H/O mechanical aortic valve replacement Nausea and vomiting after administration of anesthetic agent H/O arthroscopic knee surgery + GANGLION CYST REMOVED>RT History of esophagogastroduodenoscopy (EGD) History of colonoscopy History of tooth extraction History of tonsillectomy and adenoidectomy History of cataract surgery RT/LEFT History of foot surgery RT History of carpal tunnel surgery LEFT Family History Other Diabetes Heart disease No family history of adverse response to anesthesia Social History Smoking Status: Never smoker Tobacco Type: Cigarettes Cigarettes Per Day: did not answer; Second Hand Exposure: No; Do You Dip or Chew Tobacco: No; Hx Alcohol Use: Yes Alcohol type: beer Hx Substance Use: No Preferred Language: Stateless Communication Ability: Effective Tin Flopper Required: No Beliefs That Will Affect Care: None marital status: Unknown Current Living Situation: Family Current Living Situation Comment: Lives with son Feels Safe at Home: Yes Assistive Devices: Cane, Glasses and Walker Review of Systems Constitutional: no fever and no chills Musculoskeletal: as per Subjective / HPI Physical Exam Constitutional: WD/WN, vitals as above Cardiovascular: Extremities: normal capillary refill pedal pulses strong bilaterally, no obvious wounds or skin breaks in the LE Results & Data Results & Data Vital Signs (Past 12 Hours) Vital Signs Temp Pulse Pulse Resp BP BP Pulse Ox 11/23/24 17:03 73 19 96 11/23/24 17:00 120/88 11/23/24 16:30 77 20 159/65 H 97 11/23/24 16:17 71 11/23/24 16:12 72 98 11/23/24 16:00 112/57 L 11/23/24 15:33 76 14 99 11/23/24 15:30 122/58 L 11/23/24 15:23 79 16 110/62 99 11/23/24 15:00 76 14 125/69 98 11/23/24 13:45 71 12 127/69 98 11/23/24 13:45 78 16 127/69 98 11/23/24 13:30 78 14 98 11/23/24 13:27 76 14 99 11/23/24 12:33 79 10 L 98 11/23/24 12:21 77 12 99 11/23/24 12:21 80 11/23/24 12:11 85 16 98 11/23/24 11:55 36.7 C 85 16 169/83 H 98 O2 Del Method 11/23/24 17:03 Room Air 11/23/24 17:00 11/23/24 16:30 Room Air 11/23/24 16:17 11/23/24 16:12 Room Air 11/23/24 16:00 11/23/24 15:33 Room Air 11/23/24 15:30 11/23/24 15:23 Room Air 11/23/24 15:00 11/23/24 13:45 11/23/24 13:45 11/23/24 13:30 11/23/24 13:27 11/23/24 12:33 11/23/24 12:21 11/23/24 12:21 11/23/24 12:11 Room Air 11/23/24 11:55 Room Air Laboratory Results Abnormal lab results 11/23/24 Range/Units 12:25 RDW Std Deviation 48.3 H (36.4-46.3) fL RDW Coeff of Mariah 15.1 H (11.5-14.5) % Sodium 134 L (136-145) mmol/L Glucose 333 H* (70-99(Fasting)) mg/dl Alkaline Phosphatase 139 H (34-104) U/L Total Protein 8.7 H (6.0-8.3) gm/dl Globulin 4.6 H (2.5-4.0) gm/dl Diagnostic Findings Duplex Scan Lower Extremity Artery 11/23/24 12:05 LEFT LOWER EXTREMITY ARTERIAL DUPLEX ULTRASOUND INDICATION: Pain TECHNIQUE: Ultrasound of the left lower extremity arteries was performed. A duplex Doppler study was performed, consisting of integrated 2-dimensional (2D) real-time imaging: Color flow Doppler and Doppler spectral analysis. COMPARISON: None FINDINGS: Blood flow velocities are within normal limits. There are extensive calcified and noncalcified atherosclerotic plaque resulting in severe multifocal luminal narrowing. Blood flow velocities and waveforms are as follows: FISCAL ACCOUNTANT: 161 cm/s, triphasic Profunda femoris: 84 cm/s, biphasic Proximal SFA: 256 cm/s, biphasic Mid SFA: cm/s, 245, biphasic Distal SFA: 256 cm/s, biphasic Popliteal: 28 cm/s, monophasic MARLIN: 20 cm/s, monophasic Peroneal artery: 17 cm/s, monophasic GOLD RECLAIMER: 12 cm/s, monophasic DPA: 7 cm/s, monophasic IMPRESSION: Extensive and diffuse atherosclerosis of the left lower extremity arterial circuit resulting in multifocal severe stenoses starting from the common femoral artery and extending through the infrapopliteal arteries. Only trickle of blood flow is seen in the infrapopliteal arteries. Electronically signed by Harman Almaraz 11-23-2024 4:16 PM Foot X-Ray 11/23/24 12:05 XR foot LT min 3V routine HISTORY: 64 years-old Male pain to medial arch acute pain of the left foot without trauma COMPARISON: 05/31/2024 TECHNIQUE: 3 views of the left foot FINDINGS: Benign Wrens of the anterior calcaneus. Arterial calcifications. Demineralized appearance of the bones. 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 Mild diffuse soft tissue swelling. No acute fracture, dislocation, osseous erosion or opaque foreign body. IMPRESSION: No acute fracture. ACT 112: Negative or not required by law. The above report was generated using voice recognition software. It may contain grammatical, syntax or spelling errors. Electronically signed by: Reece Catalan M.D. 11/23/2024 12:42 PM
[2024-11-23] MEDS ORDERED: PHARMACY GLYCEMIC MGMT CONSULT PRN (18:12)
[2024-11-23] MEDS ORDERED: MoRPHine SULFATE 2 MG/ML CARP IV PRN (18:12)
[2024-11-23] MEDS ORDERED: GLUCOSE 10 TAB/TUBE PO PRN (18:12)
[2024-11-23] MEDS ORDERED: HYDROCODONE/ACETAMOPHEN 5/325MG TAB PO PRN (18:12)
[2024-11-23] MEDS ORDERED: GLUCOSE 40% GEL 15 GM TUBE PO PRN (18:12)
[2024-11-23] MEDS ORDERED: DEXTROSE 50% 50 ML SYRINGE IV PRN (18:12)
[2024-11-23] MEDS ORDERED: GLUCAGON FOR INJ 1 MG VIAL SQ PRN (18:12)
[2024-11-23] MEDS: HEPARIN 25000 UNIT/500 ML D5W 25,000 UNITS/500 ML BAG IV SCH (18:24)
[2024-11-23] MEDS: CARBOHYDRATES FOR HYPOGLYCEMIA PO PRN (18:36)
[2024-11-23] MEDS: INSULIN ASPART PER UNIT CHARGE SC SCH (18:42)
[2024-11-23] MEDS: SODIUM CHLORIDE 0.9% 1,000 ML IV SCH (19:51)
[2024-11-23] MEDS ORDERED: LANTUS PER UNIT CHARGE SC SCH (21:00)
[2024-11-23] MEDS: LANTUS PER UNIT CHARGE SC SCH (22:17)
[2024-11-24 01:19] LABS: ANTI-Xa, UFH(UnfractionatedHep 0.42 IU/ml (0.3-0.7)
[2024-11-24] MEDS: INSULIN ASPART PER UNIT CHARGE SC SCH ×2 (06:54→10:07)
[2024-11-24 08:04] LABS: Estimated Average Glucose 240 mg/dl
[2024-11-24 08:42] LABS: ANTI-Xa, UFH(UnfractionatedHep 0.48 IU/ml (0.3-0.7)
[2024-11-24 09:12] LABS: Calcium 8.6 mg/dl (8.6-10.3); Creatinine Clr Calc Pharmacy 82.4 ml/min; Potassium 4.1 mmol/L (3.5-5.1)
[2024-11-24] MEDS: ACETAMINOPHEN 325 MG TAB PO PRN (09:40)
[2024-11-24] MEDS: lisinopril 5 MG TAB PO SCH (09:41)
[2024-11-24] MEDS: ASPIRIN 81 MG ECTAB PO SCH (09:41)
[2024-11-24] MEDS: MULTIVITAMIN TAB PO SCH (09:41)
[2024-11-24] MEDS: ROSUVASTATIN CALCIUM 20 MG TAB PO SCH (09:41)
--- NOTE | 2024-11-24 09:54 | Consultation ---
Date of Consultation November 24, 2024 Assessment & Plan (1) PAD (peripheral artery disease): Pt with known AIOD and PAD, having undergone BL CELINA stenting in 07/2024. Iliac arteries not evaluated this hospital stay, however, his femoral pulses are easily palpable. LLE is warm and well perfused, with good doppler signals. No indications for vascular surgical intervention at this time. Will see in office in December as scheduled for follow up and aortoilaic US. Pt agreeable. History of Present Illness Reason for Consultation: PAD Attending Physician: Jamie Montero MD History of Present Illness 64 yo m with hx of HTN, DMII, spinal stenosis, noncompliance, aortic valve replacement on coumadin, PAD, admitted with L ankle/foot pain, seen in consultation today for PAD. Pt with hx of BL common iliac artery FRUIT HARVESTER/stenting in 07/[address] Busch d/t nonhealing wound to L posterior heel area. Pt has no showed in office for follow ups, and is rescheduled for December 2024. Pt states his l heel wound has been healed for a few months. States he has had L ankle/foot pain, numbness, tinging, pins and needles sensation, and balance issues when standing on L foot for at least a year. Pt denies rest pain, discoloration of toes, calf claudication, new nonhealing wounds. Denies REZA, fever, chest pain, SOB, abd pain, N/V, other complaints. Arterial US of LLE demonstrates distal SFA/pop stenosis. Allergies Allergy/AdvReac Type Severity Reaction Status Date / Time erythromycin base AdvReac Intermediate Abdominal Verified 11/23/24 15:37 Pain Home Medications Medication Instructions Recorded Confirmed Type aspirin 81 mg tablet,delayed 81 mg PO DAILY #30 tabs 06/02/24 11/23/24 Rx release pen needle, diabetic 32 gauge x #50 ea 06/02/24 11/18/24 Rx 5/32" (Pen Needle) rosuvastatin 40 mg tablet 40 mg PO QAM #30 tabs 06/02/24 11/23/24 Rx warfarin 7.5 mg tablet 7.5 mg PO DIRECTED 10/10/24 11/23/24 History lisinopril 5 mg tablet (Zestril) 5 mg PO DAILY 11/14/24 11/23/24 History multivitamin 1 tab PO DAILY 11/14/24 11/23/24 History insulin NPH-regular 70-30 U-100 22 - 33 unit (0.22 - 0.33 mL) 11/15/24 11/23/24 Rx insulin 100 unit/mL subcutaneous subcut DAILY #15 mL pen (Novolin 70-30 FlexPen U-100 Insulin) Patient History Medical History PAD (peripheral artery disease) s/p bilateral iliac angioplasty with stenting on 07/28/24 GERD (gastroesophageal reflux disease) ILD (interstitial lung disease) H/O TIA (transient ischemic attack) and stroke Stroke-like episode - History of TIA vs vertigo per cardio records 11/2021 (on Plavix) - 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 Repeat head CTA 08/2022 was unremarkable and no left ICA aneurysm identified Hypertension Hyperlipidemia PFO (patent foramen ovale) Small per 11/2021 [facility] imaging per cardio records Barretts esophagus Per records Gallbladder sludge reason for upcoming procedure Arthritis, gouty Hx of kidney disease PER PATIENT, ACUTE KIDNEY DISEASE 05/2022>WNL CURRENTLY GERD (gastroesophageal reflux disease) "silent/mild" Diabetes mellitus, type 2 Hx of pancreatitis HOSPITALIZED 05/2022>DKA and acute pancreatitis Aortic valve stenosis Severe per 05/2022 ECHO (PK 0.78-1.0cm2; AV mean PG 23.2mmHg; AV max velocity 3.684m/s) Chronic obstructive pulmonary disease MILD>NO INHALERS PER PATIENT Surgical History H/O mechanical aortic valve replacement Nausea and vomiting after administration of anesthetic agent H/O arthroscopic knee surgery + GANGLION CYST REMOVED>RT History of esophagogastroduodenoscopy (EGD) History of colonoscopy History of tooth extraction History of tonsillectomy and adenoidectomy History of cataract surgery RT/LEFT History of foot surgery RT History of carpal tunnel surgery LEFT Family History Other Diabetes Heart disease No family history of adverse response to anesthesia Social History Smoking Status: Former smoker Tobacco Type: Cigarettes Cigarettes Per Day: did not answer; Second Hand Exposure: No; Do You Dip or Chew Tobacco: No; Hx Alcohol Use: Yes Alcohol type: beer Hx Substance Use: No Preferred Language: Welsh Communication Ability: Effective Forming Machine Adjuster Required: No Beliefs That Will Affect Care: None marital status: Unknown Current Living Situation: Family Current Living Situation Comment: Lives with son Other Information That Helps Us Care for You: No Feels Safe at Home: Yes Safety Concerns: Feels Safe At This Time Assistive Devices: Glasses and Walker Review of Systems Review of Systems: All systems reviewed & are unremarkable except as noted in HPI & below Physical Exam Constitutional: WD/WN, vitals as above cooperative and comfortable; not in distress Respiratory: normal respiratory effort, lungs clear to auscultation Auscultation: + diminished lung sounds Cardiovascular: Rate/Rhythm: regular rate and regular rhythm Vessels: femoral pulses present (+3), posterior tibial pulses present (RLE +1, LLE dopplerable) and dorsalis pedis pulses present (RLE +1, LLE dopplerable); + abnormal peripheral pulses Extremities: normal capillary refill Gastrointestinal (Abdomen): Inspection/Auscultation: abdomen normal to inspection and normal bowel sounds Percussion/Palpation: abdomen soft; abdomen nontender Musculoskeletal: no cyanosis or clubbing, extremities motor strength 5/5 Skin: no rashes, warm and dry Neurologic: moves all extremities and awake; no focal motor deficits and not confused Psychiatric: A+Ox3, euthymic affect Results & Data Vital Signs (Past 12 Hours) Vital Signs Temp Pulse Resp BP Pulse Ox O2 Del Method 11/24/24 07:47 36.5 C 69 18 127/63 100 Room Air 11/23/24 22:21 36.7 C 16 165/70 H 99 Room Air 11/23/24 22:17 Room Air
[2024-11-24] MEDS ORDERED: Nursing to Pharmacy Communication SCH (10:00)
--- NOTE | 2024-11-24 11:17 | Hospitalist Progress Note ---
Date of Service November 24, 2024 Assessment & Plan (1) Femoral artery stenosis: Plan L ankle pain PAD likely 2/2 severe LLE stenosis including femoral artery through the intrapopliteal arteries s/p bilateral iliac angioplasty w/stenting 08/[address] Busch Vascular consult placed; appreciate recommendations. No surgical indication at this time. Patient does have a follow-up in 12/16. continue Heparin gtt until pt/inr therapeutic pain control OK to resume diabetic/heart healthy diet Uncontrolled DM sliding scale for now A1c 10.0 Would benefit from CDE; Consult placed Anticipate his symptoms listed above may be related to prior peripheral neuropathy; trial of gabapentin 200 mg twice daily. Subtherapeutic INR: Status post AVR 2022 INR 1.1; Trend in AM. LIkely non compliant Takes Coumadin 15 mg on Sat and 7.5 other days; continue May need to bridge with Lovenox on DC; monitor INR Htn, HLD, GERD: Continue home meds; including Lisinopril Disposition: PCP: Dr. Ortiz Code Status: Full Code VTE Prophylaxis: On Coumadin; continue on Heparin gtt until therapeutic. Estimated DC 1-2 days when therapeutic I spent a total of minutes coordinating, documenting, and providing care for this patient excluding time spent inthe performance of separately billed services or time spent by another provider/QHP. Admission and Anticipated Discharge Date Admission Date: November 23, 2024 Supervising Physician Co-Signing Physician Notes Patient with a history of PAD, medical noncompliance was seen and examined at bedside as a follow-up of left ankle pain in the setting of severe LLE stenosis including femoral artery through the infrapopliteal arteries. Continue with heparin GTT until PT/INR is therapeutic. Continue home Coumadin dose and monitor PT/INR daily. Vascular evaluated, appreciate recs. Case discussed with WATER PUMPING STATION ENGINEER. On exam: Patient with nontender lower extremities, weak dorsalis pedis pulses. Rest of the examination as above. I have seen and examined the patient and have discussed the case with the provider above. I agree with the assessment and plan as stated. Total time spent independently: 17 minutes. Subjective Pt standing at his bedside using his urinal when I entered the room, he was in no apparent distress. He states that his ankle pain is intermittent ranging from 3-4/10. Denies chest pain, shortness of breath, abdominal pain or tenderness. Please see A/P for further details. Review of Systems Review of Systems: Neuro: (-) Falls, trauma, slurred speech HEENT: (-) REZA, dizziness, dysphagia, visual or auditory changes CV: (-) CP, palpitations, swelling Resp: (-) SOB GI: (-) appetite changes, N/V/D, bowel changes : (-) urinary changes Skin: (-) rashes. left ankle pain without radiation. Psych: (-) anxiety, depression Physical Exam Physical Exam: Neuro: AAOx4, PERRLA, no aphagia, memory changes, CNII-XII grossly intact HEENT: head normocephalic, moist mucus membranes CV: S1/S2, (-) M/G/R, (-) edema, cap refill < 3 seconds (+) pedal pulses and skin warm to touch. Resp: Lungs CTA in all adams. On RA GI: Abdomen S/NT/ND, Ax4 bowel sounds, (-) CVA tenderness Musculoskeletal: 5/5 B/L UE strength, 5/5 B/L LE strength. No gait disturbance Skin: (-) rashes , (-) erythema. left ankle without open wounds. black dirt on bottom of foot. Psych: euthymic mood Results & Data Results & Data Vital Signs (Past 12 Hours) Vital Signs Temp Pulse Resp BP Pulse Ox O2 Del Method 11/24/24 07:47 36.5 C 69 18 127/63 100 Room Air Laboratory Results Short CBC 11/23/24 Range/Units 12:25 WBC 5.72 (4.8-10.8) K/ul Hgb 14.6 (14.0-18.0) g/dl Hct 42.7 (42.0-52.0) % Plt Count 203 (130-400) K/uL BMP 11/23/24 11/24/24 12:25 08:17 Sodium 134 L 140 Potassium 4.4 4.1 Chloride 100 108 H Carbon Dioxide 28 27 BUN 13 11 Creatinine 1.15 0.92 Glucose 333 H* 98 Calcium 9.7 8.6 Liver Function 11/23/24 Range/Units 12:25 Total Bilirubin 0.5 (0.2-1.0) mg/dl AST 25 (13-39) U/L ALT 19 (7-52) U/L Alkaline Phosphatase 139 H (34-104) U/L Albumin 4.1 (3.4-5.0) gm/dl
[2024-11-24 11:26] LABS: INR 1.1 (0.9-1.1); Prothrombin Time 11.6 Seconds (9.0-12.0)
[2024-11-24] MEDS: GABAPENTIN 100 MG CAP PO SCH (12:45)
[2024-11-24] MEDS: LANTUS PER UNIT CHARGE SC ONE (13:20)
--- NOTE | 2024-11-24 14:35 | Pharmacy Report ---
Pharmacy Glycemic Short Note 2 - Date of Service November 24, 2024 - Glycemic Short BSG Results (Last 24 hours): 11/23/24 11/23/24 11/23/24 18:33 18:56 20:38 Glucose POC Glucose 56 L* 75 189 H 11/23/24 11/24/24 11/24/24 23:43 06:00 08:17 Glucose 98 POC Glucose 137 H 73 11/24/24 11/24/24 11:34 11:36 Glucose POC Glucose 317 H* 308 H* OUTPATIENT ANTIDIABETIC REGIMEN: * Novolin 70/30 33 units with breakfast and 22 units with supper HbA1c: 9.8% on 11/14/24 ASSESSMENT: * Derek is a 64 year old male admitted yesterday with left foot pain. Pharmacy has been consulted for glycemic management while he is admitted. * BSG on admit last evening was 56mg/dL and at bedtime was 189mg/dL. He was started on a heparin drip (in D5W) for significant stenosis of LLE. Lantus 12 units SQ BID and a weight base bolus insulin regimen with a stress between 2 and 3 was started. * Fasting BSG was 73mg/dL this morning. He was not given his ordered Lantus this morning and his BSG amish to 303mg/dL at lunch. Lantus 10 units SQ x 1 was ordered and a Lantus scale (0,5, or 10 units depending on BSG) was added for HS. Bolus insulin regimen will be continued as ordered without change (th is is similar to what he was ordered in previous admissions) PLAN FOR INPATIENT GLYCEMIC CONTROL: * Hold outpatient diabetes medications * Basal insulin * Lantus 10 units SQ x 1 at lunch time and Lantus scale for HS (0,5, or 10 units depending on BSG). * Bolus insulin * NovoLog per scale ACHS or Q6hrs while NPO * Goal Range: Low 110 mg/dL - High 140 mg/dL * Correction Factor: 30 mg/dL/unit * Nutritional / Prandial insulin per carb ratio of 1 unit per 9 grams CHO consumed
[2024-11-24] MEDS: WARFARIN SOD 7.5 MG TAB PO SCH (16:59)
[2024-11-24] MEDS: LANTUS PER UNIT CHARGE SC SCH (22:11)
[2024-11-25 06:38] LABS: Basophils # (auto) 0.02 K/uL (0.00-0.20); Basophils % (auto) 0.4 %; Eosinophils # (auto) 0.14 K/uL (0.00-0.50); Eosinophils % (auto) 3.1 %; Hematocrit (blood only) 36.5 % (42.0-52.0); Hemoglobin 12.5 g/dl (14.0-18.0); Immature Granulocytes # (auto) 0.02 K/uL (0.01-0.20); Immature Granulocytes % (auto) 0.4 %; Lymphocytes # (auto) 2.01 K/uL (1.20-3.40); Lymphocytes % (auto) 44.4 %; Mean Corpuscular Hemoglobin 30.3 pg (25.0-34.0); Mean Corpuscular Hgb Conc 34.2 g/dL (32.0-36.0); Mean Corpuscular Volume 88.4 fL (80.0-100.0); Mean Platelet Volume 10.5 fL (9.4-12.4); Monocytes # (auto) 0.38 K/uL (0.11-0.59); Monocytes % (auto) 8.4 %; Neutrophils # (auto) 1.96 K/uL (1.40-6.50); Neutrophils % (auto) 43.3 %; Platelet Count 180 K/uL (130-400); RDW Coefficient of Variation 14.7 % (11.5-14.5); RDW Standard Deviation 47.4 fL (36.4-46.3); Red Blood Count 4.13 M/uL (4.70-6.10); White Blood Count 4.53 K/ul (4.8-10.8)
[2024-11-25 06:45] LABS: ANTI-Xa, UFH(UnfractionatedHep 0.43 IU/ml (0.3-0.7); INR 1.1 (0.9-1.1); Prothrombin Time 11.4 Seconds (9.0-12.0)
[2024-11-25 06:59] LABS: BUN Creatinine Ratio 12.5 (10-20); Calcium 8.9 mg/dl (8.6-10.3); Creatinine Clr Calc Pharmacy 63.2 ml/min; Potassium 4.3 mmol/L (3.5-5.1)
--- NOTE | 2024-11-25 08:18 | Hospitalist Progress Note ---
Date of Service November 25, 2024 Assessment & Plan (1) Femoral artery stenosis: Plan 64 y/o male that presents to the ED with left foot pain. H/O PAD s/p bilateral iliac angioplasty w/stenting 08/[address] Busch, uncontrolled DM, HTN, mechanical AVR 2022. States that in the last 1 day his L foot has began to have worsening pain. Pain was with walking or putting any pressure on it. Denies other symptoms including R foot or leg pain, L leg pain proximal to the ankle. Vascular was c ontacted by ED physician and recommends IV anticoagulation. Subtherapeutic INR: Status post AVR 2022 INR 1.1; Trend in AM. Likely non compliant Takes Coumadin 15 mg on Sat and 7.5 other days; continue May need to bridge with Lovenox on DC. Continue on Heparin drip for now Coumadin 10 mg today Audible click heard on exam Uncontrolled DM sliding scale for now A1c 10.0 Would benefit from CDE; Consult placed Anticipate his symptoms listed above may be related to prior peripheral neuropathy; trial of gabapentin 200 mg twice daily; tolerated. diabetic/heart healthy diet Being followed by CDE; will need the following prescriptions @ discharge. * Insulin Aspart Protamine-Insulin Aspart 70-30 Pen. * Pen Needle 32 gauge x 5/32"- to inject 2x/day. * Contour Next Test Strips- to check 3x/day. * Microlet Lancet- to check 3x/day. *Insurance requires diagnosis code (E11.69) and frequency of use be indicated on the prescription for insurance coverage and dispensing purposes. L ankle pain PAD likely 2/2 severe LLE stenosis including femoral artery through the intrapopliteal arteries s/p bilateral iliac angioplasty w/stenting 08/[address] Busch Vascular consult placed; appreciate recommendations. No surgical indication at this time. Patient does have a follow-up in 12/16. continue Heparin gtt until pt/inr therapeutic pain control; diabetic/heart healthy diet PT/OT added today Htn, HLD, GERD: Continue home meds; including Lisinopril Disposition: PCP: Dr. Ortiz Code Status: Full Code VTE Prophylaxis: On Coumadin; continue on Heparin gtt until therapeutic. Estimated DC 1-2 days when therapeutic/Lovenox bridge; significant noncompliance; given high risk off of AC, want to ensure therapeutic. I spent a total of 58 minutes coordinating, documenting, and providing care for this patient excluding time spent in the performance of separately billed services or time spent by another provider/QHP. Admission and Anticipated Discharge Date Admission Date: November 23, 2024 Subjective Patient lying in his hospital bed in no apparent distress. Patient states that his ankle pain remains intermittent but is improved Yesterday patient was started on gabapentin due to his uncontrolled diabetes; denies any grogginess or mental status changes overnight Patient denies chest pain, dizziness, shortness of breath, abdominal pain or tenderness, recent falls Would benefit from adding physical therapy to his plan today Shared that he is very excited that he may be getting sectioning clearance to go to [place] after discharge. He shared that his current home is now under foreclosure. Please see H&P for further details. Review of Systems Review of Systems: Neuro: (-) Falls, trauma, slurred speech HEENT: (-) REZA, dizziness, dysphagia, visual or auditory changes CV: (-) CP, palpitations, swelling Resp: (-) SOB GI: (-) appetite changes, N/V/D, bowel changes : (-) urinary changes Skin: (-) rashes. left ankle pain without radiation; Improving Psych: (-) anxiety, depression Constitutional: no fever and no chills Musculoskeletal: as per Subjective / HPI Physical Exam Physical Exam: Neuro: AAOx4, PERRLA, no aphagia, memory changes, CNII-XII grossly intact HEENT: head normocephalic, moist mucus membranes CV: S1/S2, (-) M/G/R, Audible click from valve auscultated.(-) edema, cap refill < 3 seconds (+) pedal pulses and skin warm to touch. Resp: Lungs CTA in all adams. On RA GI: Abdomen S/NT/ND, Ax4 bowel sounds, (-) CVA tenderness Musculoskeletal: 5/5 B/L UE strength, 5/5 B/L LE strength. No gait disturbance Skin: (-) rashes , (-) erythema. left ankle without open wounds. black dirt on bottom of foot. Psych: euthymic mood Results & Data Results & Data Vital Signs (Past 12 Hours) Vital Signs Temp Pulse Resp BP Pulse Ox O2 Del Method 11/25/24 07:59 36.8 C 75 16 122/64 98 Room Air 11/25/24 07:25 Room Air 11/24/24 21:15 Room Air Laboratory Results Short CBC 11/25/24 Range/Units 05:59 WBC 4.53 L (4.8-10.8) K/ul Hgb 12.5 L (14.0-18.0) g/dl Hct 36.5 L (42.0-52.0) % Plt Count 180 (130-400) K/uL BMP 11/25/24 05:59 Sodium 139 Potassium 4.3 Chloride 106 Carbon Dioxide 28 BUN 15 Creatinine 1.20 Glucose 165 H Calcium 8.9
[2024-11-25] MEDS: LANTUS PER UNIT CHARGE SC SCH (08:27)
[2024-11-25] MEDS: INSULIN ASPART PER UNIT CHARGE SC SCH (12:24)
--- NOTE | 2024-11-25 13:02 | Pharmacy Report ---
Pharmacy Glycemic Short Note 2 - Date of Service November 25, 2024 - Glycemic Short BSG Results (Last 24 hours): 11/24/24 11/24/24 11/25/24 16:37 20:26 05:59 Glucose 165 H POC Glucose 100 H 97 11/25/24 11/25/24 11/25/24 07:41 11:27 11:28 Glucose POC Glucose 152 H 358 H* 318 H* OUTPATIENT ANTIDIABETIC REGIMEN: * Novolin 70/30 33 units with breakfast and 22 units with supper HbA1c: 9.8% on 11/14/24 ASSESSMENT: 11/25: * Derek received a total of 33 units of insulin yesterday (10 units were basal and 23 units were bolus). With the exception of lunch time reading, BSGs were below the goal range. * Fasting BSG this morning was 152mg/L. Started Lantus 5 units SQ daily and increased the BSG goal range. * Lunch BSG amish to 318mg/dL. Will trial tightening the bolus insulin parameters at breakfast only starting tomorrow to see if this aids in the hyperglycemia seen at lunch. 11/24: * Derek is a 64 year old male admitted yesterday with left foot pain. Pharmacy has been consulted for glycemic management while he is admitted. * BSG on admit last evening was 56mg/dL and at bedtime was 189mg/dL. He was started on a heparin drip (in D5W) for significant stenosis of LLE. Lantus 12 units SQ BID and a weight base bolus insulin regimen with a stress between 2 and 3 was started. * Fasting BSG was 73mg/dL this morning. He was not given his ordered Lantus this morning and his BSG amish to 303mg/dL at lunch. Lantus 10 units SQ x 1 was ordered and a Lantus scale (0,5, or 10 units depending on BSG) was added for HS. Bolus insulin regimen will be continued as ordered without change (this is similar to what he was ordered in previous admissions) PLAN FOR INPATIENT GLYCEMIC CONTROL: * Hold outpatient diabetes medications * Basal insulin * Lantus 5 units SQ daily and Lantus scale for HS (0,5, or 10 units depending on BSG). * Bolus insulin * NovoLog per scale ACHS or Q6hrs while NPO * Goal Range: Low 120 mg/dL - High 160 mg/dL * Breakfast (starting 11/26) -Correction Factor: 20 mg/dL/unit -Nutritional / Prandial insulin per carb ratio of 1 unit per 6 grams CHO consumed * Lunch, dinner, HS -Correction Factor: 30 mg/dL/unit -Nutritional / Prandial insulin per carb ratio of 1 unit per 9 grams CHO consumed
[2024-11-25] MEDS: WARFARIN SOD 10 MG TAB PO ONE (16:39)
[2024-11-26 07:34] LABS: BUN Creatinine Ratio 15.5 (10-20); Calcium 8.9 mg/dl (8.6-10.3); Creatinine Clr Calc Pharmacy 58.8 ml/min; Potassium 4.3 mmol/L (3.5-5.1)
[2024-11-26 07:46] LABS: ANTI-Xa, UFH(UnfractionatedHep 0.45 IU/ml (0.3-0.7); INR 1.1 (0.9-1.1); Prothrombin Time 12.1 Seconds (9.0-12.0)
--- NOTE | 2024-11-26 08:25 | Hospitalist Progress Note ---
Date of Service November 26, 2024 Assessment & Plan (1) Femoral artery stenosis: Plan 64 y/o male that presents to the ED with left foot pain. H/O PAD s/p bilateral iliac angioplasty w/stenting 08/[address] Busch, uncontrolled DM, HTN, mechanical AVR 2022. States that in the last 1 day his L foot has began to have worsening pain. Pain was with walking or putting any pressure on it. Denies other symptoms including R foot or leg pain, L leg pain proximal to the ankle. Vascular was c ontacted by ED physician and recommends IV anticoagulation. Subtherapeutic INR: Status post AVR 2022 INR 1.1; Trend in AM. Likely non compliant Takes Coumadin 15 mg on Sat and 7.5 other days Given non compliance and subtherapeutic INR; hesitant to DC. at this time until INR 2-3 range. Coumadin 15 mg today and recheck PT/INR on 11/27. Continue Heparin gtt per pharmacy Patient stated he is unsure if he can manage Lovenox injections Audible click heard on exam Uncontrolled DM sliding scale for now A1c 10.0 Would benefit from CDE; Consult placed Anticipate his symptoms listed above may be related to prior peripheral neuropathy; trial of gabapentin 200 mg twice daily; tolerated; will increase to 300 mg BID on 11/26 diabetic/heart healthy diet Being followed by CDE; will need the following prescriptions @ discharge. * Insulin Aspart Protamine-Insulin Aspart 70-30 Pen. * Pen Needle 32 gauge x 5/32"- to inject 2x/day. * Contour Next Test Strips- to check 3x/day. * Microlet Lancet- to check 3x/day. *Insurance requires diagnosis code (E11.69) and frequency of use be indicated on the prescription for insurance coverage and dispensing purposes* L ankle pain PAD likely 2/2 severe LLE stenosis including femoral artery through the intrapopliteal arteries s/p bilateral iliac angioplasty w/stenting 08/[address] Busch Vascular consult placed; appreciate recommendations. No surgical indication at this time. Patient does have a follow-up in 12/16. continue Heparin gtt until pt/inr therapeutic pain control; diabetic/heart healthy diet PT/OT on board Htn, HLD, GERD: Continue home meds; including Lisinopril Disposition: PCP: Dr. Ortiz Code Status: Full Code VTE Prophylaxis: On Coumadin; continue on Heparin gtt until therapeutic. Estimated DC 1-2 days when therapeutic/Lovenox bridge; significant noncompliance; given high risk off of AC, want to ensure near therapeutic on DC Pt shared that his current home is under foreclosure and he is not confident that he will have a home to go to on discharge. Pt has applied for section 8 housing at [employer] and he is on the wait list (but appears 'soon'). Patient shared he would not likely be compliant with Lovenox injections. Feel patient not ready for DC until we reach therapeutic state with PT/INR. He also stated that he does not have reliable transportation to the coumadin clinic. CM aware and will provide resources to pt I spent a total of 56 minutes coordinating, documenting, and providing care for this patient excluding time spent in the performance of separately billed services or time spent by another provider/QHP. Admission and Anticipated Discharge Date Admission Date: November 23, 2024 Supervising Physician Co-Signing Physician Notes Discussed case with Juanita KINNEY. Difficult case, patient with medication noncompliance, housing insecurity. Frequently stops taking insulin and other medications despite being given resources by case management throughout numerous prior recent hospitalizations. Patient has aortic valve replacement, needs therapeutic INR. Patient states he cannot do lovenox injections; even once therapeutic/bridged patient unlikely to take medications at home given past hospitalizations. We discussed with pharmacy, will attempt to increase warfarin to increase INR closer to therapeutic level. Once INR increasing, will need follow up in coumadin clinic. Needs to follow up on community resources regarding housing insecurity and medication compliance. I have seen and discussed the case with the collaborating advanced practitioner. I agree with the above H&P. I have reviewed and confirmed the patients medical history, the findings on physical examination, and the patients diagnosis and treatment plan with Juanita KINNEY and agree with the information documented. I spent a total of 20 minutes coordinating, documenting, and providing care for this patient excluding time spent in the performance of separately billed services. All of the aforementioned completed outside of collaborating with the assigned advanced practitioner for a full treatment plan. I have reviewed the advanced practitioner's documentation, and I agree with, and take responsibility for the plan of care Subjective Patient sitting in his hospital chair in no apparent distress. I visualized him walking with OT in the hallway without apparent difficulties. Patient states that his ankle pain remains intermittent but is improved significantly Patient denies chest pain, dizziness, shortness of breath, abdominal pain or tenderness, recent falls. denies any grogginess or mental status changes overnight Pt shared that his current home is under foreclosure and he is not confident that he will have a home to go to on discharge. Pt has applied for section 8 housing at [place] and he is on the wait list (but appears 'soon'). Patient shared he would not likely be compliant with Lovenox injections. Feel patient not ready for DC until we reach therapeutic state with PT/INR. He also stated that he does not have reliable transportation to the coumadin clinic. CM aware and will provide resources to pt Please see A/P for further details. Review of Systems Review of Systems: Neuro: (-) Falls, trauma, slurred speech HEENT: (-) REZA, dizziness, dysphagia, visual or auditory changes CV: (-) CP, palpitations, swelling Resp: (-) SOB GI: (-) appetite changes, N/V/D, bowel changes : (-) urinary changes Skin: (-) rashes. left ankle pain without radiation; Improving Psych: (-) anxiety, depression Constitutional: no fever and no chills Musculoskeletal: as per Subjective / HPI Physical Exam Physical Exam: Neuro: AAOx4, PERRLA, no aphagia, memory changes, CNII-XII grossly intact HEENT: head normocephalic, moist mucus membranes CV: S1/S2, (-) M/G/R, (-) edema, cap refill < 3 seconds Resp: Lungs CTA in all adams. On RA GI: Abdomen S/NT/ND, Ax4 bowel sounds, (-) CVA tenderness Musculoskeletal: 5/5 B/L UE strength, 5/5 B/L LE strength. No gait disturbance Skin: (-) rashes , (-) erythema. Psych: euthymic mood Results & Data Results & Data Vital Signs (Past 12 Hours) Vital Signs Temp Pulse Resp BP Pulse Ox O2 Del Method 11/26/24 08:21 36.4 C L 86 16 102/61 96 Room Air 11/26/24 07:25 Room Air 11/25/24 20:44 36.7 C 75 18 127/73 95 Room Air Laboratory Results [facility] 11/26/24 06:40 Sodium 140 Potassium 4.3 Chloride 107 Carbon Dioxide 27 BUN 20 Creatinine 1.29 Glucose 128 H Calcium 8.9
[2024-11-26] MEDS: INSULIN ASPART PER UNIT CHARGE SC SCH (08:28)
[2024-11-26] MEDS ORDERED: WARFARIN SOD 7.5 MG TAB PO SCH (16:00)
[2024-11-26] MEDS: WARFARIN SOD 7.5 MG TAB PO ONE (16:02)
[2024-11-26] MEDS: GABAPENTIN 300 MG CAP PO SCH (21:17)
[2024-11-27 06:49] LABS: Basophils # (auto) 0.03 K/uL (0.00-0.20); Basophils % (auto) 0.6 %; Eosinophils # (auto) 0.18 K/uL (0.00-0.50); Eosinophils % (auto) 3.6 %; Hematocrit (blood only) 39.2 % (42.0-52.0); Immature Granulocytes # (auto) 0.01 K/uL (0.01-0.20); Immature Granulocytes % (auto) 0.2 %; Lymphocytes # (auto) 1.82 K/uL (1.20-3.40); Lymphocytes % (auto) 36.7 %; Mean Corpuscular Hgb Conc 33.2 g/dL (32.0-36.0); Mean Corpuscular Volume 90.5 fL (80.0-100.0); Mean Platelet Volume 10.3 fL (9.4-12.4); Monocytes % (auto) 10.1 %; Neutrophils # (auto) 2.42 K/uL (1.40-6.50); Neutrophils % (auto) 48.8 %; Platelet Count 189 K/uL (130-400); RDW Coefficient of Variation 14.8 % (11.5-14.5); RDW Standard Deviation 49.1 fL (36.4-46.3); Red Blood Count 4.33 M/uL (4.70-6.10); White Blood Count 4.96 K/ul (4.8-10.8)
[2024-11-27 07:27] LABS: ANTI-Xa, UFH(UnfractionatedHep 0.44 IU/ml (0.3-0.7)
--- NOTE | 2024-11-27 07:57 | Hospitalist Progress Note ---
Date of Service November 27, 2024 Assessment & Plan (1) Femoral artery stenosis: Plan This is a 64 y/o male that presents to the ED with left foot pain. H/O PAD s/p bilateral iliac angioplasty w/stenting 08/[address] Busch, uncontrolled DM, HTN, mechanical AVR 2022 and presents with worsening LLE pain x 1 day. States that in the last 1 day his L foot has began to have worsening pain. Pain was with walking or putting any pressure on it. Denies other symptoms including R foot or leg pain, L leg pain proximal to the ankle. Vascular was contacted by ED physician and recommends IV anticoagulation. Subtherapeutic INR: Status post AVR 2022 INR 1.1, likely non compliant Bridging with heparin gtt per vascular service until INR therapeutic Takes Coumadin 15 mg on Sat and 7.5 other days Given Coumadin 15mg x 1 yesterday with INR increasing to 1.4 Will give another 15mg Coumadin today, repeat INR in AM Transition to 100mg daily SQ Lovenox injections this evening, continue daily until INR therapeutic CM coordinating mobile lab for INR check following discharge Uncontrolled DM with peripheral neuropathy A1c 10.0 Continue diabetic/heart healthy diet Appreciate medical educator consult Being followed by CDE; will need the following prescriptions @ discharge. * Insulin Aspart Protamine-Insulin Aspart 70-30 Pen. * Pen Needle 32 gauge x 32"- to inject 2x/day. * Contour Next Test Strips- to check 3x/day. * Microlet Lancet- to check 3x/day. *Insurance requires diagnosis code (E11.69) and frequency of use be indicated on the prescription for insurance coverage and dispensing purposes* Anticipate his symptoms listed above may be related to prior peripheral neuropathy; trial of gabapentin 200 mg twice daily; tolerated; will increase to 300 mg BID on 11/26 Left ankle pain in setting of PAD Likely 2/2 severe LLE stenosis including femoral artery through the intrapopliteal arteries S/p bilateral iliac angioplasty w/stenting 08/[address] Busch Vascular consult placed; appreciate recommendations. No surgical indication at this time - plan to follow up with vascular as outpatient on 12/16, due for aortoiliac ultrasound then as well HTN, HLD, GERD: Continue home meds; including Lisinopril Disposition: PCP: Dr. Ortiz Code Status: Full Code VTE Prophylaxis: On Coumadin; SQ lovenox until INR therapeutic Disposition complicated by housing insecurity, medication non-compliance, subtherapeutic INR. Appreciate extensive CM efforts, set up with outpatient case consultant. Will need follow up in coumadin clinic. Outpatient CM to continue assisting patient with community resources regarding housing insecurity and medication compliance. I spent a total of 60 minutes coordinating, documenting, and providing care for this patient excluding time spent in the performance of separately billed services or time spent by another provider/QHP. Admission and Anticipated Discharge Date Admission Date: November 23, 2024 Supervising Physician Co-Signing Physician Notes Patient with poor medication compliance and housing insecurity. Appreciate case management assistance today with working on housing insecurity. Patient medically stable for discharge home tomorrow with lovenox bridging with warfarin, follow up with warfarin clinic (has transport options available, given to patient), patients neighbor can help with refrigeration as well while awaiting new housing situation. I have discussed the case with the collaborating advanced practitioner. I agree with the above H&P. I have reviewed and confirmed the patients medical history, the findings on physical examination, and the patients diagnosis and treatment plan with Regla Torres PA-C and agree with the information documented. I spent a total of 20 minutes coordinating, documenting, and providing care for this patient excluding time spent in the performance of separately billed services. All of the aforementioned completed outside of collaborating with the assigned advanced practitioner for a full treatment plan. I have reviewed the advanced practitioner's documentation, and I agree with, and take responsibility for the plan of care Subjective Seen and examined in 355-2, resting in bed comfortably. NAEO. Ankle pain intermittent but improved since arrival. Concerns with housing, completing an application this morning. No F/C, CP, SOB, N/V, abd pain, dysuria, diarrhea or constipation. Review of Systems Review of Systems: At least ten systems reviewed and negative except as noted in the HPI. Physical Exam Physical Exam: Gen: WD/WN, NAD, resting in bed comfortably, A&Ox3 HEENT: Normocephalic, atraumatic, conjunctivae moist, sclerae anicteric, mucous membranes moist Lung: Clear to Auscultation bilaterally Heart: Regular rate, regular rhythm, +mechanical click Abdomen: Soft, NT, ND +BS x 4 Extremities: BLE with diminished but dopplerable pulses, normal capillary refi ll, no edema Skin: Warm, no rash Results & Data Results & Data Vital Signs (Past 12 Hours) Vital Signs Temp Pulse Resp BP Pulse Ox O2 Del Method 11/27/24 07:53 Room Air 11/27/24 07:08 36.5 C 80 16 148/75 H 96 Room Air 11/26/24 20:07 36.6 C 80 144/65 H 96 Room Air 11/26/24 20:00 Room Air Laboratory Results Short CBC 11/27/24 Range/Units 06:26 WBC 4.96 (4.8-10.8) K/ul Hgb 13.0 L (14.0-18.0) g/dl Hct 39.2 L (42.0-52.0) % Plt Count 189 (130-400) K/uL Diagnostic Findings Duplex Scan Lower Extremity Artery 11/23/24 12:05 LEFT LOWER EXTREMITY ARTERIAL DUPLEX ULTRASOUND INDICATION: Pain TECHNIQUE: Ultrasound of the left lower extremity arteries was performed. A duplex Doppler study was performed, consisting of integrated 2-dimensional (2D) real-time imaging: Color flow Doppler and Doppler spectral analysis. COMPARISON: None FINDINGS: Blood flow velocities are within normal limits. There are extensive calcified and noncalcified atherosclerotic plaque resulting in severe multifocal luminal narrowing. Blood flow velocities and waveforms are as follows: MALWARE ANALYST: 161 cm/s, triphasic Profunda femoris: 84 cm/s, biphasic Proximal SFA: 256 cm/s, biphasic Mid SFA: cm/s, 245, biphasic Distal SFA: 256 cm/s, biphasic Popliteal: 28 cm/s, monophasic MARLIN: 20 cm/s, monophasic Peroneal artery: 17 cm/s, monophasic PLANT [employer] EQUIPMENT WORKER: 12 cm/s, monophasic DPA: 7 cm/s, monophasic IMPRESSION: Extensive and diffuse atherosclerosis of the left lower extremity arterial circuit resulting in multifocal severe stenoses starting from the common femoral artery and extending through the infrapopliteal arteries. Only trickle of blood flow is seen in the infrapopliteal arteries. Electronically signed by Harman Almaraz 11-23-2024 4:16 PM Foot X-Ray 11/23/24 12:05 XR foot LT min 3V routine HISTORY: 64 years-old Male pain to medial arch acute pain of the left foot without trauma COMPARISON: 05/31/2024 TECHNIQUE: 3 views of the left foot FINDINGS: Benign [place] of the anterior calcaneus. Arterial calcifications. Demineralized appearance of the bones. 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 Mild diffuse soft tissue swelling. No acute fracture, dislocation, osseous erosion or opaque foreign body. IMPRESSION: No acute fracture. ACT 112: Negative or not required by law. The above report was generated using voice recognition software. It may contain grammatical, syntax or spelling errors. Electronically signed by: Reece Catalan M.D. 11/23/2024 12:42 PM
[2024-11-27] MEDS: LANTUS PER UNIT CHARGE SC SCH (08:16)
[2024-11-27 08:31] LABS: INR 1.4 (0.9-1.1); Prothrombin Time 15.1 Seconds (9.0-12.0)
[2024-11-27] MEDS: WARFARIN SOD 7.5 MG TAB PO ONE (15:12)
[2024-11-27 20:24] VITALS: TEMP 97.5
[2024-11-27] MEDS: ENOXAPARIN 100 MG/1ML SYR SQ SCH (20:57)
[2024-11-27] MEDS: HEPARIN GTT: STOP ORDER ONE (20:58)
[2024-11-28 07:15] VITALS: PULSE 93; RESP 16; O2SAT 94
[2024-11-28 08:00] LABS: ANTI-Xa, UFH(UnfractionatedHep 0.66 IU/ml (0.3-0.7); INR 2.1 (0.9-1.1); Prothrombin Time 21.7 Seconds (9.0-12.0)
[2024-11-28 08:12] VITALS: BP 102/65
[2024-11-28] MEDS: NovoLIN-N (NPH) PER UNIT CHARGE SQ ONE (08:54)
[2024-11-28] MEDS ORDERED: LANTUS PER UNIT CHARGE SC SCH (09:00)
--- NOTE | 2024-11-28 11:04 | Discharge Summary ---
Discharge Summary Date of Service November 28, 2024 Principal Dx & Hospital Course #1 = Principal Diagnosis (1) Femoral artery stenosis: (2) Anticoagulated on warfarin: (3) Uncontrolled type 2 diabetes mellitus with hyperglycemia: (4) PAD (peripheral artery disease): (5) H/O mechanical aortic valve replacement: (6) Noncompliance with medications: Plan This is a 64 y/o male that presents to the ED with left foot pain. H/O PAD s/p bilateral iliac angioplasty w/stenting 08/[address] Busch, uncontrolled DM, HTN, mechanical AVR 2022 and presents with worsening LLE pain x 1 day in setting of PAD. Left ankle pain in setting of PAD 2/2 severe LLE stenosis including femoral artery through the intrapopliteal arteries S/p bilateral iliac angioplasty w/stenting 08/[address] Busch Vascular service evaluated consult- No surgical indication at this time. Plan to follow up with vascular as outpatient on 12/16, due for aortoiliac ultrasound then as well Subtherapeutic INR -> resolved Status post AVR 2022 INR 1.1 on admission, likely non compliant Bridging with heparin gtt per vascular service until INR therapeutic Takes Coumadin 15 mg on Sat and 7.5 other days Given Coumadin 15mg x 2 days with INR increasing to 2.1 today Educated on importance of compliance with coumadin CM coordinating mobile lab for INR check following discharge - due for next check on 12/02 Uncontrolled DM with peripheral neuropathy A1c 10.0, history of non-compliance Continue diabetic/heart healthy diet Appreciate hospital educator consult, glycemic pharmacy Dc on Insulin Aspart Protamine-Insulin Aspart 70-30 Pen- no change from previous home dose Being followed by CDE; will need the following prescriptions @ discharge (E11.69) * Insulin Aspart Protamine-Insulin Aspart 70-30 Pen. * Pen Needle 32 gauge x "- to inject 2x/day. * Contour Next Test Strips- to check 3x/day. * Microlet Lancet- to check 3x/day. Anticipate his symptoms listed above may be related to prior peripheral neuropathy; trial of gabapentin with improved neuropathy; discharging on increased dose of 300 mg BID HTN, HLD, GERD: Continue home meds; including Lisinopril Difficult disposition with history of poor medication compliance and housing insecurity. Appreciate extensive case management efforts with working on housing insecurity and coordinating outpatient case management for continued help. Set up for mobile labs for weekly INR check. Patient's neighbor helping with refrigeration needs while patient awaiting new housing situation. Care coordinated with Dr. Lei. Notes For Next Care Provider Known PAD with LLE stenosis, no surgical indication per vasc serivce; patient to follow up in outpatient clinic 12/16. Mobile lab set up for weekly INR Outpatient CM for continued needs regarding housing insecurity Medication Changes From Visit Gabapentin 300mg BID Stressed need for compliance for coumadin and insulin, no dose change from previous Admission HPI Per Admitting Provider 64M pmh PAD s/p bilateral iliac angioplasty w/stenting 08/[address] Busch, uncontrolled DM, htn, HLD, GERD, mechanical AVR 2022 who presents to the ED with L foot pain. Patient states that in the last 1 day his L foot has began to have worsening pain, so he came in. Pain was with walking or putting any pressure on it. Denies other symptoms including R foot or leg pain, L leg pain proximal to the ankle. On my evaluation while laying patient states he has no pain or complaints. Dr Busch was contacted by ED physician and recommends IV anticoagulation and will see in the AM. Admission Exam Per Admitting Provider Constitutional: WD/WN, vitals as above Cardiovascular: Extremities: normal capillary refill pedal pulses strong bilaterally, no obvious wounds or skin breaks in the LE Discharge Exam Gen: WD/WN, NAD, resting in bed comfortably, A&Ox3 HEENT: Normocephalic, atraumatic, conjunctivae moist, sclerae anicteric, mucous membranes moist Lung: Clear to Auscultation bilaterally Heart: Regular rate, regular rhythm, +mechanical click Abdomen: Soft, NT, ND +BS x 4 Extremities: BLE with diminished but dopplerable pulses, normal capillary refill, no edema Skin: Warm, no rash Updated Medication List Medication Instructions Recorded Confirmed Type aspirin 81 mg tablet,delayed 81 mg PO DAILY #30 tabs 06/02/24 11/23/24 Rx release pen needle, diabetic 32 gauge x #50 ea 06/02/24 11/18/24 Rx /" (Pen Needle) rosuvastatin 40 mg tablet 40 mg PO QAM #30 tabs 06/02/24 11/23/24 Rx warfarin 7.5 mg tablet 7.5 mg PO DIRECTED 10/10/24 11/23/24 History lisinopril 5 mg tablet (Zestril) 5 mg PO DAILY 11/14/24 11/23/24 History multivitamin 1 tab PO DAILY 11/14/24 11/23/24 History blood sugar diagnostic (Contour #100 ea 11/28/24 Rx Next Test Strips) gabapentin 300 mg capsule 300 mg PO BID #60 caps 11/28/24 Rx insulin aspar prot-insulin aspart See Rx Instructions .Route 11/28/24 Rx 100 unit/mL (70-30) subcutaneous .COMPLEX #15 mL pen lancets (Microlet Lancet) #200 ea 11/28/24 Rx pen needle, diabetic 32 gauge x #1,200 ea 11/28/24 Rx 5/32" (Pen Needle) Hospital Stay Data Consultations 11/23/24 17:10 ED Decision to Admit Stat 11/23/24 18:11 Consult Vascular Surgery Routine Diagnostic Imagining Performed 11/23/24 12:05 arterial duplex LE LT Stat Pending Results Patient Have Any Pending Studies at Discharge: No Discharge Instructions Given to Patient (Per Discharging Provider) 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 Take insulin twice a day and follow up with primary care provider for diabetes management. Vascular surgery evaluated and do not feel surgery is indicated at this time for your foot. Please follow up at your December 16 appointment. Continue taking Coumadin as prescribed - mobile lab will come to your home for INR checks - goal range is 2-3. MEDICATION CHANGES: Gabapentin dose changed to 300mg twice a day for nerve-related pain. PENDING TEST RESULTS: None RECOMMENDATIONS FOR FOLLOW-UP: Follow up with PCP as scheduled for close diabetes management. Mobile lab has been set up for you for labwork at your home. Continue taking medications as prescribed ! Outpatient ed case manager assigned to your case to help with ongoing housing transition. OTHER INSTRUCTIONS: Seek medical attention if you have: * temperature above 101 * chest pain or trouble breathing * abdominal pain, nausea, vomiting * diarrhea, dark stools or bloody stools * any unanswered questions or concerns Call 911 if symptoms are severe. Please take good care of yourself. Call if you have any questions or problems. You can reach a [facility] hospitalist on duty at [facility] 24 hours a day by calling [phone] Total Time Total Time Spent Total Time Spent (In Minutes): 60 Supervising Physician Co-Signing Physician Notes Patient seen and examined at bedside. Patient anxious to leave. Excited about his housing plans that were assisted by our case management team. On exam, patient comfortable and dressed to go home. Patient has all resources needed to follow up outpatient, including warfarin, INR checks in home (set up by case management team), home healthcare as needed, transportation options as needed, began paperwork for low income housing, place to store insulin ([facility]), and outpatient ed case manager. I have seen and discussed the case with the collaborating advanced practitioner. I agree with the above H&P. I have reviewed and confirmed the patients medical history, the findings on physical examination, and the patients diagnosis and treatment plan with Regla Torres PA-C and agree with the information documented. I spent a total of 20 minutes coordinating, documenting, and providing care for this patient excluding time spent in the performance of separately billed services. All of the aforementioned completed outside of collaborating with the assigned advanced practitioner for a full treatment plan. I have reviewed the advanced practitioner's documentation, and I agree with, and take responsibility for the plan of care
[2024-11-29] MEDS ORDERED: WARFARIN SOD 7.5 MG TAB PO SCH (16:00)
== END 2024-11-28 11:02 | disposition home or self-care (01) | DRG 301 ==
LOC: ED 11:55 → 3W 18:09 → SUATTDRO 18:09 → 3W 20:18